=== PATIENT | female | born 1945 | race Caucasian/White ===

== ENCOUNTER → 2016-06-14 | Outpatient (CLI) | payer MEDICARE ==
[~2016-06-14] MED LIST: ACET473E5 PO; ASP81CT PO; ASPI-266 PO; ATEN25TA PO; CALC-79 PO; CLOP75TA PO; CODE-54 PO; CYCL10TA9 PO; FESO4TAB PO; HYDR-3812 PO; KETO10TA PO; LISI10TA2 PO; LISI20TA2 PO; MELO-195 PO; NITR-65 PO; PRIM50TA26 PO; RANI150C11 PO; RANI150T11 PO; RANI300T4 PO; SIMV40TA4 PO; TERB250T PO
--- NOTE | 2016-06-14 14:27 | Diagnostic Imaging Report ---
INDICATION: Chronic right-sided back pain radiating to the right leg. DISCUSSION: Three views of the lumbosacral spine were obtained, no comparison. Mild degenerative changes are noted within the bilateral sacroiliac joints. No compression fracture or abnormal subluxation identified. Mild degenerative disc disease is noted. Mild facet arthropathy. Scattered atherosclerotic plaque is noted throughout the abdominal aorta. Soft tissues are otherwise unremarkable. IMPRESSION: 1. Mild degenerative changes the lumbar spine. No acute osseous abnormality identified. Report was called to Deya Lopez by loraine at 2:26 p.m. Dictated by: Dictated on workstation # [id number]
== END ==
LOC: RAD 13:55
PROVIDERS: ATTEND Nurse Practitioner Family
DX: M54.41 Lumbago with sciatica, right side (principal); G89.29 Other chronic pain
CPT/HCPCS: 72100

== ENCOUNTER 2016-06-19 13:41 | Emergency (ER) | payer MEDICARE ==
[~2016-06-19] VITALS: Ht 144.8 cm; Wt 64.6 kg
[~2016-06-19 13:41] MED LIST changes: -HYDR-3812 PO; -KETO10TA PO; -NITR-65 PO; -RANI150T11 PO
[2016-06-19] MEDS ORDERED: KETOROLAC 30 MG/ML VIAL IVP STA (14:06)
[2016-06-19] MEDS ORDERED: LACTATED RINGERS 1,000 ML IV ONE (14:06)
--- NOTE | 2016-06-19 14:13 | ED Back Pain ---
General Chief Complaint: Back Problems Stated Complaint: BACK PAIN Nursing Triage Note: PT REPORTS LOW BACK PAIN X 1 WEEK. SHE REPORTS SHE WAS SEEN AT [facility] IN [facility] LAST MONDAY AND HAD XRAYS AND WAS TX FOR UTI. SHE REPORTS NO IMPROVEMENT WITH PAIN. Nursing Sepsis Screen: No Definite Risk Source of Information: Patient History of Present Illness Time Seen by Provider: 13:58 Initial Comments PT STATES LAST MONDAY, 1 WEEK AGO, SHE GOT UP OUT OF HER RECLINER AND HAD SUDDEN SHARP PAIN IN RIGHT FLANK THAT RADIATES TO RIGHT MID ABDOMEN--STATES RIGHT FLANK AREA FEELS SWOLLEN PAIN HAS CONTINUED ALL WEEK WENT TO [facility] ON MONDAY FOR THIS PROBLEM AND WAS DX WITH UTI AND GIVEN RX FOR BACTRIM WHICH SHE HAS BEEN TAKING WITHOUT IMPROVEMENT IN SYMPTOMS PT ALSO HAS RX FOR [id number] #3 FOR CHRONIC BACK PAIN NO MOTOR DEFICITS. OCCASIONALLY HAS "NUMBNESS TO RIGHT ANTERIOR THIGH" BUT + NAUSEA, NO VOMITING NO URINARY SYMPTOMS HAS PROBLEMS WITH CONSTIPATION AND TOOK A LAXATIVE A FEW DAYS AGO AND IT HELPED. , LAST BM WAS YESTERDAY OR DAY BEFORE NO FEVER BUT HAS HAD CHILLS PT HAS HAD A KIDNEY STONE X 1 IN THE PAST PASSED IT ON HER OWN. 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 Allergies and Home Medications Allergies Coded Allergies: fluticasone (Unverified Allergy, Unknown, RASH, 07/28/14) Uncoded Allergies: MRI DYE (Allergy, Severe, ANAPHYLAXIS, 01/22/13) Home Medications Acetaminophen/Codeine 1 Tab Tablet, 0.5-1 TAB PO HS PRN for PAIN, (Reported) TAKES 1/2-1 TABLET Aspirin 81 Mg Tablet.dr, 81 MG PO HS, (Reported) Atenolol 25 Mg Tablet, 25 MG PO HS, (Reported) Calcium Carb/Vit D3/Minerals 1 Each Tab.chew, 2 TAB PO HS, (Reported) Clopidogrel Bisulfate 75 Mg Tablet, 75 MG PO HS, (Reported) Fesoterodine Fumarate 4 Mg Tab.sr.24h, 4 MG PO HS, (Reported) Lisinopril 10 Mg Tablet, 10 MG PO HS, (Reported) Meloxicam 15 Mg Tablet, 15 MG PO HS, (Reported) Primidone 50 Mg Tablet, 100 MG PO HS, (Reported) TAKES 2 (50MG) TABLETS Primidone 50 Mg Tablet, 25 MG PO DAILY, (Reported) TAKES 1/2 (50MG) TABLET Ranitidine Hcl 150 Mg Capsule, 150 MG PO HS, (Reported) Simvastatin 40 Mg Tablet, 40 MG PO HS, (Reported) Constitutional: see HPI, chills Respiratory: no symptoms reported Cardiovascular: no symptoms reported Gastrointestinal: RUQ, RLQ, see HPI Genitourinary: no symptoms reported, see HPI, No decreased output, No dysuria, No frequency, No hematuria, No hesitancy, No pain Musculoskeletal: see HPI, back pain Skin: no symptoms reported Psychiatric/Neurological: No Symptoms Reported Past Osjaglp-Kxddyl-Wsxmkr Hx Patient Social History Alcohol Use: Rarely Uses Recreational Drug Use: No Smoking Status: Current Everyday Smoker (1 PPD) Type Used: Cigarettes 2nd Hand Smoke Exposure: No Recent Foreign Travel: No Contact w/Someone Who Travel: No Recent Infectious Disease Expo: No Recent Hopitalizations: No Immunizations Up To Date Tetanus Booster (TDap): Unknown Date of Pneumonia Vaccine: Jan 21, 2009 Date of Influenza Vaccine: Dec 31, 2014 Seasonal Allergies Seasonal Allergies: No Surgeries HX Surgeries: Yes (CARDIAC CATH; HYST/BSO-2 DIFFERENT SURGERIES; SURGERY FOR PROLAPSED BLADDER) Surgeries: Adenoidectomy, Bladder Surgery, Cardiac, Hysterectomy, Oophorectomy , Tonsillectomy Respiratory Hx Respiratory Disorders: Yes Respiratory Disorders: COPD Cardiovascular Hx Cardiac Disorders: Yes Cardiac Disorders: Coronary Artery Disease, High Cholesterol, Hypertension, Peripheral Vascular Neurological Hx Neurological Disorders: Yes (FAMILIAL TREMOR) Neurological Disorders: Stroke Reproductive System Hx Reproductive Disorders: No Sexually Transmitted Disease: No HIV/AIDS: No Female Reproductive Disorders: Denies Genitourinary Hx Genitourinary Disorders: Yes (Incontinence) Genitourinary Disorders: Kidney Stones Gastrointestinal Hx Gastrointestinal Disorders: No Musculoskeletal Hx Musculoskeletal Disorders: Yes Musculoskeletal Disorders: Arthritis, Back Injury, Chronic Back Pain Endocrine Hx Endocrine Disorders: No HEENT HX ENT Disorders: No Cancer Hx Cancer: No Psychosocial Hx Psychiatric Problems: No Integumentary HX Skin/Integumentary Disorder: No Blood Transfusions Hx Blood Disorders: No Adverse Reaction to a Blood Tr: No Family Medical History Family Medial History: Cardiovascular disease 19 FATHER ( at 73 with mi) Completed stroke 19 MOTHER ( at 83 complications of stroke) Physical Exam Vital Signs Vital Sign - Last 12Hours 06/19/16 13:52 Temp 97.2 Pulse 75 Resp 16 B/P (MAP) 148/84 Pulse Ox 96 O2 Delivery Room Air Capillary Refill : Less Than 3 Seconds General Appearance: No Apparent Distress, WD/WN Cardiovascular: Regular Rate, Rhythm, No Murmur, Normal Peripheral Pulses Respiratory: Normal Breath Sounds, No Accessory Muscle Use, No Respiratory Distress Gastrointestinal: Normal Bowel Sounds, No Organomegaly, Soft, Tenderness ( RIGHT FLANK / MID ABD TENDERNESS) Back: CVA Tenderness (R) Extremity: Normal Range of Motion Neurologic/Psychiatric: Alert, Oriented x3, No Motor/Sensory Deficits, Normal Mood/Affect, Other (RESTING TREMOR TO HEAD AND ARMS) Skin: Normal Color, Warm/Dry, No Rash Progress/Results/Core Measures Results/Orders Lab Results Laboratory Tests Test 06/19/16 14:25 06/19/16 15:14 Range/Units White Blood Count 13.4 H 4.3-11.0 10^3/uL Red Blood Count 4.92 4.35-5.85 10^6/uL Hemoglobin 16.1 H 11.5-16.0 G/DL Hematocrit 48 35-52 % Mean Corpuscular Volume 97 80-99 FL Mean Corpuscular Hemoglobin 33 25-34 PG Mean Corpuscular Hemoglobin Concent 34 32-36 G/DL Red Cell Distribution Width 14.3 10.0-14.5 % Platelet Count 237 130-400 10^3/uL Mean Platelet Volume 10.6 H 7.4-10.4 FL Neutrophils (%) (Auto) 72 42-75 % Lymphocytes (%) (Auto) 17 12-44 % Monocytes (%) (Auto) 10 0-12 % Eosinophils (%) (Auto) 1 0-10 % Basophils (%) (Auto) 0 0-10 % Neutrophils # (Auto) 9.6 H 1.8-7.8 X 10^3 Lymphocytes # (Auto) 2.3 1.0-4.0 X 10^3 Monocytes # (Auto) 1.3 H 0.0-1.0 X 10^3 Eosinophils # (Auto) 0.2 0.0-0.3 10^3/uL Basophils # (Auto) 0.1 0.0-0.1 10^3/uL Sodium Level 138 135-145 MMOL/L Potassium Level 4.3 3.6-5.0 MMOL/L Chloride Level 104 98-107 MMOL/L Carbon Dioxide Level 23 21-32 MMOL/L Anion Gap 11 5-14 MMOL/L Blood Urea Nitrogen 31 H 7-18 MG/DL Creatinine 1.62 H 0.60-1.30 MG/DL Estimat Glomerular Filtration Rate 31 BUN/Creatinine Ratio 19 Glucose Level 90 70-105 MG/DL Calcium Level 9.0 8.5-10.1 MG/DL Total Bilirubin 0.4 0.1-1.0 MG/DL Aspartate Amino Transf (AST/SGOT) 14 5-34 U/L Alanine Aminotransferase (ALT/SGPT) 7 0-55 U/L Alkaline Phosphatase 55 40-136 U/L Total Protein 6.6 6.4-8.2 G/DL Albumin 3.8 3.2-4.5 G/DL Amylase Level 45 25-125 U/L Lipase 33 8-78 U/L Urine Color YELLOW Urine Clarity CLEAR Urine pH 6 5-9 Urine Specific [place] 1.015 L 1.016-1.022 Urine Protein 1+ H NEGATIVE Urine Glucose (UA) NEGATIVE NEGATIVE Urine Ketones NEGATIVE NEGATIVE Urine Nitrite NEGATIVE NEGATIVE Urine Bilirubin NEGATIVE NEGATIVE Urine Urobilinogen NORMAL NORMAL MG/DL Urine Leukocyte Esterase 2+ H NEGATIVE Urine RBC (Auto) 3+ H NEGATIVE Urine RBC NONE /HPF Urine WBC 5-10 H /HPF Urine Squamous Epithelial Cells 5-10 /HPF Urine Crystals NONE /LPF Urine Bacteria TRACE /HPF Urine Casts PRESENT /LPF Urine Hyaline Casts 25-50 H /LPF Urine Mucus NEGATIVE /LPF Urine Culture Indicated NO My Orders Orders - PERCY RUBIO DO Ct Abd/Pelvis Wo(Kidney Stone) (06/19/16 14:06) Amylase (06/19/16 14:06) Cbc With Automated Diff (06/19/16 14:06) Comprehensive Metabolic Panel (06/19/16 14:06) Lipase (06/19/16 14:06) Ua Culture If Indicated (06/19/16 14:06) Acute Abd Series (06/19/16 14:06) Saline Lock/Iv-Start (06/19/16 14:06) Lactated Ringers (Lr 1000 Ml Iv Solution (06/19/16 14:06) Ketorolac Injection (Toradol Injection) (06/19/16 14:06) Urine Culture (06/19/16 15:29) Medications Given in ED Current Medications Medications Dose Ordered Sig/Tobias Route Start Time Stop Time Status Last Admin Dose Admin Lactated Ringer's 1,000 ml @ 0 mls/hr Q0M ONCE IV 06/19/16 14:06 06/19/16 14:07 DC 06/19/16 14:25 0 MLS/HR Vital Signs/I&O Vital Sign - Last 12Hours 06/19/16 13:52 Temp 97.2 Pulse 75 Resp 16 B/P (MAP) 148/84 Pulse Ox 96 O2 Delivery Room Air Blood Pressure Mean: 105 Progress Note : Progress Note MODERATE RELIEF OF PAIN WITH TORADOL PT AND DAUGHTER ADVISED OF POSSIBILITY OF EARLY SHINGLES OUTBREAK, WITH NO RASH AT THIS TIME. ADVISED TO CALL HER DR IF SHE DEVELOPS A RASH IN AREA OF PAIN Diagnostic Imaging Comments ACUTE ABDOMEN XRAYS--NO ACUTE PROCESS CT ABDOMEN/PELVIS--NO ACUTE PROCESS, SMALL NON-OBSTRUCTING INTRARENAL STONES PER RADIOLOGIST REPORTS @ 1508 Reviewed: Reviewed by Me Departure Impression Impression: Primary Impression: Right flank pain Additional Impression: UTI (urinary tract infection) Disposition: HOME, SELF-CARE Condition: Improved Departure-Patient Inst. Referrals: ELVIA MIMS DO (PCP/Family) Primary Care Physician Patient Instructions: Flank Pain (DC), Urinary Tract Infection, Adult (DC) Add. Discharge Instructions: ALTERNATE ICE AND HEAT TO SORE AREA AT 20 MINUTE INTERVALS LOTS OF CLEAR LIQUIDS STOP YOUR CURRENT ANTIBIOTIC FOLLOW UP WITH [facility] THIS WEEK FOR FURTHER CARE All discharge instructions reviewed with patient and/or family. Voiced understanding. Scripts Nitrofurantoin Monohyd/M-Cryst (Macrobid 100 mg Capsule) 100 Mg Capsule 100 MG PO BID, #20 CAP Prov: PERCY RUBIO DO 06/19/16 Ketorolac Tromethamine (Ketorolac Tromethamine) 10 Mg Tablet 10 MG PO Q6H for Pain, #15 TAB Prov: PERCY RUBIO DO 06/19/16 Hydrocodone/Acetaminophen (Hydrocodon -Acetaminophen 5-325) 1 Each Tablet 1 EACH PO Q4H, #20 TAB Prov: PERCY RUBIO DO 06/19/16 Cyclobenzaprine HCl (Cyclobenzaprine HCl) 10 Mg Tablet 10 MG PO Q8H, #15 TAB Prov: PERCY RUBIO DO 06/19/16 PERCY RUBIO DO Jun 19, 2016 14:13
[2016-06-19 14:33] LABS: BASOPHILS # (AUTO) 0.1 10^3/uL (0.0-0.1); BASOPHILS % (AUTO) 0 % (0-10); EOSINOPHILS # (AUTO) 0.2 10^3/uL (0.0-0.3); EOSINOPHILS % (AUTO) 1 % (0-10); LYMPHOCYTES # (AUTO) 2.3 X 10^3 (1.0-4.0); LYMPHOCYTES % (AUTO) 17 % (12-44); MEAN CORPUSCULAR HEMOGLOBIN 33 PG (25-34); MEAN CORPUSCULAR HGB CONC 34 G/DL (32-36); MEAN CORPUSCULAR VOLUME 97 FL (80-99); MEAN PLATELET VOLUME 10.6 FL (7.4-10.4); MONOCYTES # (AUTO) 1.3 X 10^3 (0.0-1.0); MONOCYTES % (AUTO) 10 % (0-12); NEUTROPHILS # (AUTO) 9.6 X 10^3 (1.8-7.8); NEUTROPHILS % (AUTO) 72 % (42-75); PLATELET COUNT 237 10^3/uL (130-400); RED BLOOD COUNT 4.92 10^6/uL (4.35-5.85); RED CELL DISTRIBUTION WIDTH 14.3 % (10.0-14.5); WHITE BLOOD COUNT 13.4 10^3/uL (4.3-11.0)
[2016-06-19 14:50] LABS: ALBUMIN 3.8 G/DL (3.2-4.5); BILIRUBIN,TOTAL 0.4 MG/DL (0.1-1.0); CREATININE SERUM 1.62 MG/DL (0.60-1.30); POTASSIUM 4.3 MMOL/L (3.6-5.0); TOTAL PROTEIN 6.6 G/DL (6.4-8.2)
--- NOTE | 2016-06-19 14:53 | Diagnostic Imaging Report ---
INDICATION: Back pain. COMPARISON with 06/30/2015. FINDINGS: The lungs are clear. There is no evidence of free air under the diaphragm. The bowel gas pattern appears normal with no evidence of constipation. No calculi are seen overlying the renal shadow. There are 2 well-circumscribed benign-appearing calculi overlying the left upper quadrant which are unchanged. No calculi are seen along the path of the ureter. No calculi are seen in the pelvis. No organomegaly. IMPRESSION: Normal abdomen series. There is no evidence of renal calculi on current exam. Dictated by: Dictated on workstation # [id number]
--- NOTE | 2016-06-19 15:05 | Diagnostic Imaging Report ---
PROCEDURE: CT urinary tract, rule out kidney stone. TECHNIQUE: Multiple contiguous axial images were obtained through the abdomen and pelvis without the use of intravenous contrast. INDICATION: Back pain radiating into right side. FINDINGS: The lung bases are clear. The kidneys show nonobstructing calculus in the lower pole calyx of left kidney measuring 5 mm. There is a small calcification seen along the right renal pelvis which is felt to be within the renal artery and not within the renal collecting system. There is also calcification noted along the aorta. The distal ureters appear normal as did the bladder. There is a phlebolith noted in the pelvis on the right. The liver appears normal. The gallbladder is contracted. Bile ducts are not dilated. The pancreas and spleen are normal. The adrenal glands are normal. There is a small hiatal hernia present. The stomach is filled with food. The small bowel is not dilated. The colon shows normal stool and gas pattern with no evidence of constipation. No findings to indicate diverticulitis. The appendix is not specifically identified though no dilated structures or appendicoliths are present. No evidence of pericecal edema. No pelvic masses. There is no free air or free fluid. No intra-abdominal adenopathy of pathologic size. IMPRESSION: 1. Nonobstructing calculus in the lower pole calyx of the left kidney measuring 5 mm. The right kidney appears normal with no calculi or obstruction. 2. No findings to suggest inflammatory bowel changes or appendicitis. Dictated by: Dictated on workstation # [id number]
[2016-06-19 15:20] LABS: BILIRUBIN,URINE NEGATIVE (NEGATIVE); KETONES,URINE NEGATIVE (NEGATIVE); LEUKOCYTE ESTERASE ,URINE 2+ (NEGATIVE); NITRITE,URINE NEGATIVE (NEGATIVE); PH,URINE 6 (5-9); PROTEIN,URINE 1+ (NEGATIVE); UROBILINOGEN,URINE NORMAL (NORMAL)
[2016-06-19 15:28] LABS: HYALINE CASTS, URINE 25-50 /LPF
[2016-06-19] MEDS ORDERED: NITR-65 PO ×2 (15:39→15:40)
[2016-06-19] MEDS ORDERED: HYDR-3812 PO (15:40)
[2016-06-19] MEDS ORDERED: CYCL10TA9 PO (15:40)
[2016-06-19] MEDS ORDERED: KETO10TA PO (15:40)
[2016-06-19 15:54] VITALS: BP 145/79
--- OUTSIDE RECORDS SUMMARY | 2016-07-05 13:26 | XMS REPORT ---
Author Author DAY HUGHES [facility] eClinicalWorks Address Unknown Phone Unavailable Care Team Providers Care Electric Arc Welder Name Role Phone DAY HUGHES CP Unavailable Allergies, Adverse Reactions, Alerts Substance Reaction Event Type Gadolinium-containing Contrast Media Info Not Available Non Drug Allergy Problems Problem Type Condition ICD-9 Code Onset Dates Condition Status Problem Nondependent tobacco use disorder 305.1 Active Problem Chest pain, unspecified 786.50 Active Problem Occlusion and stenosis of carotid artery without mention of cerebral infarction 433.10 Active Problem Hyperlipidemia 272.4 Active Problem CVA (cerebral infarction) 434.91 Active Problem PVD (peripheral vascular disease) 443.9 Active Problem Hypertension 401.9 Active Problem RBBB 426.4 Active Problem Carotid arterial disease 447.9 Active Problem Tobacco dependency 305.1 Active Assessment Weight loss 783.21 Active Assessment PVD (peripheral vascular disease) 443.9 Active Problem Unspecified osteoporosis 733.00 Active Problem 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 Problem Other seborrheic keratosis 702.19 Active Problem Occlusion and stenosis of carotid artery with cerebral infarction 433.11 Active Problem 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 Problem Unspecified essential hypertension 401.9 Active Medications Medication Code System Code Instructions Start Date End Date Status Dosage Atenolol [facility] [address]-01 25 MG Orally Once a day 1 tablet Primidone [facility] [address]-65 50 MG Feb 26, 2014 1/2 tablet AM and 2 tabs @ HS Simvastatin [facility] [address]-45 40 MG Orally Once a day 1 tablet in the evening Lisinopril [facility] [address]-74 10 MG Orally Once a day [facility] 1 tablet Calcium ND 0 Oral Once a day 2 tab Mobic [facility] [address]-28 15 MG Orally Once a day 1 tablet Aspirin [facility] [address] 81 MG Orally Once a day 1 tablet Ranitidine HCl [facility] [address]-18 150 MG Orally Once a day 1 tablet Toviaz [facility] [address]-14 4 mg Feb 27, 2013 take 1 tablet (4 mg) by oral route once daily Tylenol with Codeine #3 [facility] 0 300-30 mg 1 tab(s) orally 4 times a day July 26, 2012 1-2 tablet by Oral route 4 times per day PRN Procedures Procedure Coding System Code Date Office Visit, Est Pt., Level 3 CPT-4 91486 Nov 17, 2014 [facility] VISIT ESTABLISHED PATIENT CPT-4 G0467 Nov 17, 2014 Vital Signs Date/Time: Nov 17, 2014 Temperature 97.8 F Weight 136.7 lbs Height 57 in BMI 29.58 Index Blood Pressure Diastolic 72 mmHg Blood Pressure Systolic 138 mmHg Cardiac Monitoring Heart Rate 82 bpm Results No Known Results Summary Purpose eClinicalWorks Submission
--- OUTSIDE RECORDS SUMMARY | 2016-07-05 13:26 | XMS REPORT ---
Author Author ALONDRA COFFEY [facility] eClinicalWorks Address Unknown Phone Unavailable Care Team Providers Care Cap Maker Name Role Phone ALONDRA COFFEY CP Unavailable Allergies, Adverse Reactions, Alerts Substance Reaction Event Type Flonase hives and itching Drug Allergy Gadolinium-containing Contrast Media nausea Non Drug Allergy Problems Problem Type Condition Code Onset Dates Condition Status Problem Tobacco dependency 305.1 Active Problem CVA (cerebral infarction) 434.91 Active Problem Carotid arterial disease 447.9 Active Problem Dysfunction of right eustachian tube H69.81 Active Problem Other seborrheic keratosis 702.19 Active Problem Hyperlipemia E78.5 Active Assessment Bilateral otitis media, unspecified chronicity, unspecified otitis media type H66.93 Active Problem 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 Problem PVD (peripheral vascular disease) 443.9 Active Problem Hyperlipidemia 272.4 Active Problem Hypertension I10 Active Problem CVA (cerebral vascular accident) I63.9 Active Problem 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 Problem Occlusion and stenosis of carotid artery with cerebral infarction 433.11 Active Problem 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 Problem Unspecified osteoporosis 733.00 Active Problem Occlusion and stenosis of carotid artery without mention of cerebral infarction 433.10 Active Problem Chest pain, unspecified 786.50 Active Problem Unspecified essential hypertension 401.9 Active Problem RBBB 426.4 Active Problem Nondependent tobacco use disorder 305.1 Active Problem Hypertension 401.9 Active Medications Medication Code System Code Instructions Start Date End Date Status Dosage Atenolol [facility] 94610145929 25 MG TAKE ONE TABLET BY MOUTH DAILY Primidone [facility] [address]-79 50 MG Feb 26, 2014 3 tabs @ Simvastatin [facility] 15753669376 40 MG TAKE ONE TABLET BY MOUTH ONCE DAILY Ranitidine HCl [facility] 78842303541 150 MG TAKE ONE TABLET BY MOUTH DAILY Calcium Antacid Ultra [facility] [address]-42 1000 MG Orally Three times a day 1 tablet Tylenol with Codeine #3 NDC 0 300-30 mg 1 tab(s) orally 4 times a day July 26, 2012 1-2 tablet by Oral route 4 times per day PRN Magnesium [facility] [address] 400 MG Orally Once a day September 03, 2015 as directed Aspirin [facility] [address] 81 MG Orally Once a day 1 tablet Amoxicillin [facility] [address]-66 500 MG Orally every 8 hrs October 15, 2015 October 25, 2015 1 capsule Meloxicam [facility] 13008028874 15 MG TAKE ONE TABLET BY MOUTH DAILY Myrbetriq [facility] [address]-76 50 MG Orally Once a day 1 tablet Plavix [facility] 19669767676 75 MG TAKE ONE TABLET BY MOUTH ONCE DAILY Calcium NDC 0 Oral Once a day 2 tab Lisinopril [facility] 08733553219 10 Orally Once a day [facility] 1 tablet Procedures Procedure Coding System Code Date Office Visit, Est Pt., Level 3 CPT-4 32439 October 15, 2015 [facility] VISIT ESTABLISHED PATIENT CPT-4 G0467 October 15, 2015 Vital Signs Date/Time: October 15, 2015 Cardiac Monitoring Heart Rate 78 bpm Weight 142.4 lbs Height 57 in Blood Pressure Diastolic 62 mmHg Blood Pressure Systolic 98 mmHg Results No Known Results Summary Purpose eClinicalWorks Submission
--- OUTSIDE RECORDS SUMMARY | 2016-07-05 13:27 | XMS REPORT ---
Author Author DAY HUGHES Organization [employer] Address Unknown Phone Unavailable Care Team Providers Care Commissioner Of Conciliation Name Role Phone DAY HUGHES CP Unavailable Allergies No Known Allergies Problems Problem Type Condition Code Onset Dates Condition Status Problem Dysfunction of right eustachian tube H69.81 Active Problem Hyperlipemia E78.5 Active Problem 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 Problem Cataracts, bilateral H26.9 Active Problem Hypertension I10 Active Problem CVA (cerebral vascular accident) I63.9 Active Medications No Known Medications Results No Known Results Summary Purpose eClinicalWorks Submission
--- OUTSIDE RECORDS SUMMARY | 2016-07-05 13:27 | XMS REPORT ---
Author Author DAY HUGHES [facility] Address [address] [place] [address] Care Team Providers Care Healthcare Advisory Services Manager Name Role Phone DAY HUGHES Unavailable PROBLEMS Type Condition ICD9-CM Code [id number] Code Onset Dates Condition Status SNOMED Code Assessment Arthralgia, unspecified joint M25.50 Oct, Active 16131831 Assessment Essential hypertension I10 Oct, Active 73273268 Problem 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 274815533 Problem Dysfunction of right eustachian tube H69.81 Active 22682828 Problem CVA (cerebral vascular accident) I63.9 Active 863485435 Problem Cataracts, bilateral H26.9 Active 41454418 Problem Hyperlipemia E78.5 Active 34517740 Problem Hypertension I10 Active 93566663 ALLERGIES Substance Reaction Event Type Date Status Flonase hives and itching Drug Allergy Oct, Active Gadolinium-containing Contrast Media nausea Non Drug Allergy Oct, Active SOCIAL HISTORY No smoking Hx information available PLAN OF CARE VITAL SIGNS Height 57 in 2015-11-17 Weight 139.6 lbs 2015-11-17 Heart Rate 80 bpm 2015-11-17 Respiratory Rate 20 2015-11-17 BMI 30.21 kg/m2 2015-11-17 Blood pressure systolic 120 mmHg 2015-11-17 Blood pressure diastolic 66 mmHg 2015-11-17 MEDICATIONS Medication Instructions Dosage Frequency Start Date End Date Duration Status Ranitidine HCl 150 MG TAKE ONE TABLET BY MOUTH DAILY 90 Active Atenolol 25 MG TAKE ONE TABLET BY MOUTH DAILY 30 Active Meloxicam 15 MG TAKE ONE TABLET BY MOUTH DAILY 90 Active Plavix 75 MG TAKE ONE TABLET BY MOUTH ONCE DAILY 90 Active Magnesium 400 MG Orally Once a day as directed 24h Aug, Active Simvastatin 40 MG TAKE ONE TABLET BY MOUTH ONCE DAILY 30 Active Lisinopril 10 Orally Once a day [facility] 1 tablet Active Myrbetriq 50 MG Orally Once a day 1 tablet 24h Active Calcium Oral Once a day 2 tab 24h Active Calcium Antacid Ultra 1000 MG Orally Three times a day 1 tablet 8h Active Primidone 50 MG 3 tabs @HS Feb, Active Aspirin 81 MG Orally Once a day 1 tablet 24h Active Tylenol with Codeine #3 300-30 mg 1-2 tablet by Oral route 4 times per day PRN July, Active RESULTS No Results PROCEDURES Procedure Date Ordered Related Diagnosis Body Site [facility] VISIT ESTABLISHED PATIENT Nov 17, 2015 Office Visit, Est Pt., Level 3 Nov 17, 2015 IMMUNIZATIONS No Known Immunizations
--- OUTSIDE RECORDS SUMMARY | 2016-07-05 13:27 | XMS REPORT ---
Author Author ANDRES ALVARADO [employer] Address Unknown Phone Unavailable Care Team Providers Care Label Cutter Name Role Phone ANDRES ALVARADO CP Unavailable Allergies, Adverse Reactions, Alerts Substance Reaction Event Type Flonase hives and itching Drug Allergy Gadolinium-containing Contrast Media nausea Non Drug Allergy Problems Problem Type Condition Code Onset Dates Condition Status Problem Dysfunction of right eustachian tube H69.81 Active Problem Hyperlipemia E78.5 Active Problem 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 Problem Cataracts, bilateral H26.9 Active Assessment Dental examination Z01.20 Active Problem Hypertension I10 Active Problem CVA (cerebral vascular accident) I63.9 Active Medications Medication Code System Code Instructions Start Date End Date Status Dosage Ranitidine HCl [facility] 30398442652 150 MG TAKE ONE TABLET BY MOUTH DAILY Atenolol ND 12003255816 25 MG TAKE ONE TABLET BY MOUTH DAILY Tylenol with Codeine #3 NDC 0 300-30 mg 1 tab(s) orally 4 times a day July 26, 2012 1-2 tablet by Oral route 4 times per day PRN Calcium NDC 0 Oral Once a day 2 tab Lisinopril [facility] 24802561431 10 Orally Once a day LUPIN PHARMACE 1 tablet Plavix [facility] 80435028111 75 MG TAKE ONE TABLET BY MOUTH ONCE DAILY Magnesium [facility] [address]297 400 MG Orally Once a day September 03, 2015 as directed Calcium Antacid Ultra [facility] [address]-99 1000 MG Orally Three times a day 1 tablet Myrbetriq [facility] [address]-83 50 MG Orally Once a day 1 tablet Simvastatin [facility] 42829272338 40 MG TAKE ONE TABLET BY MOUTH ONCE DAILY Meloxicam ND 25232989240 15 MG TAKE ONE TABLET BY MOUTH DAILY Primidone [facility] [address]-11 50 MG Feb 26, 2014 3 tabs @[facility] Aspirin [facility] [address]1920 81 MG Orally Once a day 1 tablet Procedures Procedure Coding System Code Date Dental no charge CPT-4 D0099 Jan 19, 2016 Results No Known Results Summary Purpose [employer]Works Submission
--- OUTSIDE RECORDS SUMMARY | 2016-07-05 13:27 | XMS REPORT ---
Author Author SUSANA LLOYD Organization [employer] Address Unknown Phone Unavailable Care Team Providers Care Nuclear Test Technician Name Role Phone SUSANA LLOYD CP Unavailable Allergies, Adverse Reactions, Alerts Substance Reaction Event Type Flonase itching Drug Allergy Gadolinium-containing Contrast Media Info Not Available Non Drug Allergy Problems Problem Type Condition Code Onset Dates Condition Status Problem Tobacco dependency 305.1 Active Problem CVA (cerebral infarction) 434.91 Active Problem Carotid arterial disease 447.9 Active Problem Dysfunction of right eustachian tube H69.81 Active Problem Other seborrheic keratosis 702.19 Active Problem Hyperlipemia E78.5 Active Assessment Bronchitis J40 Active Problem 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 [...] Instructions Start Date End Date Status Dosage Doxycycline Monohydrate [facility] [address]-79 100 MG Orally every 12 hrs with food Apr 28, 2015 May 08, 2015 1 tablet Plavix [facility] 57908212144 75 MG TAKE ONE TABLET BY MOUTH ONCE DAILY Aspirin [facility] 44[address]1024 81 MG Orally Once a day 1 tablet Guaifenesin [facility] [address]-90 200 MG Orally every 4 hrs prn Apr 28, 2015 May 05, 2015 1 tablet as needed Calcium ND 0 Oral Once a day 2 tab Ranitidine HCl NDC 99292073197 150 MG TAKE ONE TABLET BY MOUTH DAILY Mobic [facility] [address]-58 15 MG Orally Once a day 1 tablet Tylenol with Codeine #3 [facility] 0 300-30 mg 1 tab(s) orally 4 times a day July 26, 2012 1-2 tablet by Oral route 4 times per day PRN Primidone [facility] [address]-02 50 MG Feb 26, 2014 3 tabs @[facility] Simvastatin [facility] 68226423665 40 MG TAKE ONE TABLET BY MOUTH DAILY Toviaz [facility] [address]-30 4 mg Feb 27, 2013 take 1 tablet (4 mg) by oral route once daily Meloxicam [facility] 85058034154 15 MG TAKE ONE TABLET BY MOUTH DAILY Atenolol [facility] 12076944718 25 MG TAKE ONE TABLET BY MOUTH DAILY Lisinopril [facility] [address]-36 10 MG Orally Once a day LUPIN PHARMACE 1 tablet Procedures Procedure Coding System Code Date NEB/MDI RX INITIAL CPT-4 16551 Apr 28, 2015 Office Visit, Est Pt., Level 3 CPT-4 96219 Apr 28, 2015 Vital Signs Date/Time: Apr 28, 2015 Temperature 98.8 F Weight 139.6 lbs Height 57 in BMI 30.21 Index Blood Pressure Diastolic 68 mmHg Blood Pressure Systolic 110 mmHg Cardiac Monitoring Heart Rate 86 bpm Results No Known Results Summary Purpose [employer]Works Submission
--- OUTSIDE RECORDS SUMMARY | 2016-07-05 13:27 | XMS REPORT ---
Author Author KIRBY ALVA Organization [employer] Address Unknown Phone Unavailable Care Team Providers Care Industrial Maintenance Technician Name Role Phone KIRBY ALVA CP Unavailable Allergies No Known Allergies Problems Problem Type Condition Code Onset Dates Condition Status Assessment CVA (cerebral vascular accident) I63.9 Active Assessment RBBB I45.10 Active Problem RBBB 426.4 Active Assessment Hypertension I10 Active Problem Hypertension 401.9 Active Assessment Tobacco use Z72.0 Active Problem Tobacco dependency 305.1 Active Problem CVA (cerebral infarction) 434.91 Active Problem Carotid arterial disease 447.9 Active Problem Dysfunction of right eustachian tube H69.81 Active Problem Hyperlipemia E78.5 Active Problem Other seborrheic keratosis 702.19 Active Assessment Hyperlipemia E78.5 Active Problem 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 Assessment Carotid arterial disease I77.9 Active Problem PVD (peripheral vascular disease) 443.9 [...] Problem Unspecified essential hypertension 401.9 Active Problem Nondependent tobacco use disorder 305.1 Active Medications Medication Code System Code Instructions Start Date End Date Status Dosage Atenolol [facility] [address]-51 25 MG Orally Once a day 1 tablet Lisinopril [facility] [address]-96 10 MG Orally Once a day LUPIN PHARMACE 1 tablet Tylenol with Codeine #3 ND 0 300-30 mg 1 tab(s) orally 4 times a day July 26, 2012 1-2 tablet by Oral route 4 times per day PRN Primidone [facility] [address]-65 50 MG Feb 26, 2014 3 tabs @[facility] Simvastatin [facility] [address]-40 40 MG Orally Once a day 1 tablet in the evening Toviaz [facility] [address]-02 4 mg Feb 27, 2013 take 1 tablet (4 mg) by oral route once daily Plavix [facility] 99711714371 75 MG TAKE ONE TABLET BY MOUTH ONCE DAILY Ranitidine HCl [facility] 90817767238 150 MG TAKE ONE TABLET BY MOUTH DAILY Calcium ND 0 Oral Once a day 2 tab Mobic [facility] [address]-55 15 MG Orally Once a day 1 tablet Aspirin [facility] [address]68-[address]697 81 MG Orally Once a day 1 tablet Procedures Procedure Coding System Code Date [facility] VISIT ESTABLISHED PATIENT CPT-4 G0467 Mar 04, 2015 Office Visit, Est Pt., Level 4 CPT-4 89549 Mar 04, 2015 MEASURE BLOOD OXYGEN LEVEL CPT-4 55067 Mar 04, 2015 Vital Signs Date/Time: Mar 04, 2015 Cardiac Monitoring Heart Rate 72 bpm Weight 137 lbs Height 57 in BMI 29.64 Index Oximetry 97 % Blood Pressure Diastolic 74 mmHg Blood Pressure Systolic 124 mmHg Results No Known Results Summary Purpose eClinicalWorks Submission
--- OUTSIDE RECORDS SUMMARY | 2016-07-05 13:30 | XMS REPORT | Continuity of Care Document ---
Author Author [facility]ly [facility] Address Unknown Phone Unavailable Allergies Active Description Code Type Severity Reaction Onset Reported/Identified Relationship to Patient Clinical Status Yes Flonase Drug Allergy N/A N/A 10/13/2008 Yes Flonase Drug Allergy 10/13/2008 Yes lisinopril Drug Allergy 10/13/2008 Yes MRI DYE MRI DYE Severe ANAPHYLAXIS 01/22/2013 Yes Gadolinium-Containing Contrast Media Drug Allergy N/A N/ A 01/29/2013 Yes fluticasone [id number] Drug Allergy Unknown RASH 07/28/2014 Medications Problems Date Dx Coded Attending Type Code Diagnosis Diagnosed By 02/15/2008 ELVIA MIMS DO 729.5 Pain In Limb 02/15/2008 ELVIA MIMS DO 807.00 Closed Fracture Of Rib(s) Unspecified 02/15/2008 729.5 Pain In Limb 02/15/2008 807.00 Closed Fracture Of Rib(s) Unspecified 02/15/2008 ELVIA MIMS DO 729.5 Pain In Limb 02/15/2008 LUCIO MIMS DOA K 807.00 Closed Fracture Of Rib(s) Unspecified 02/15/2008 729.5 Pain In Limb 02/15/2008 807.00 Closed Fracture Of Rib(s) Unspecified 02/15/2008 ELVIA MIMS DO 729.5 Pain In Limb 02/15/2008 ELVIA MIMS DO K 807.00 Closed Fracture Of Rib(s) Unspecified 02/15/2008 ELVIA MIMS DO K 729.5 Pain In Limb 02/15/2008 ELVIA MIMS DO K 807.00 Closed Fracture Of Rib(s) Unspecified 02/15/2008 729.5 Pain In Limb 02/15/2008 807.00 Closed Fracture Of Rib(s) Unspecified 02/15/2008 729.5 Pain In Limb 02/15/2008 807.00 Closed Fracture Of Rib(s) Unspecified 02/15/2008 729.5 Pain In Limb 02/15/2008 807.00 Closed Fracture Of Rib(s) Unspecified 02/15/2008 ROSENDO BARROW MD 729.5 Pain In Limb 02/15/2008 ROSENDO BARROW MD 807.00 Closed Fracture Of Rib(s) Unspecified 02/15/2008 ROSENDO BARROW MD 729.5 Pain In Limb 02/15/2008 ROSENDO BARROW MD 807.00 Closed Fracture Of Rib(s) Unspecified 02/15/2008 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, DAY S 729.5 Pain In Limb 02/15/2008 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, DAY S 807.00 Closed Fracture Of Rib(s) Unspecified 02/15/2008 MIMS DO, ELVIA K 729.5 Pain In Limb 02/15/2008 MIMS DO, ELVIA K 807.00 Closed Fracture Of Rib(s) Unspecified 02/15/2008 ROSENDO BARROW MD 729.5 Pain In Limb 02/15/2008 ROSENDO BARROW MD 807.00 Closed Fracture Of Rib(s) Unspecified 02/15/2008 MIMS DO, ELVIA K 729.5 Pain In Limb 02/15/2008 MIMS DO, ELVIA K 807.00 Closed Fracture Of Rib(s) Unspecified 02/15/2008 ROSENDO BARROW MD 729.5 Pain In Limb 02/15/2008 ROSENDO BARROW MD 807.00 Closed Fracture Of Rib(s) Unspecified 02/15/2008 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, DAY S 729.5 Pain In Limb 02/15/2008 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, DAY S 807.00 Closed Fracture Of Rib(s) Unspecified 02/15/2008 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, DAY S 729.5 Pain In Limb 02/15/2008 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, DAY S 807.00 Closed Fracture Of Rib(s) Unspecified 02/15/2008 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, DAY S 729.5 Pain In Limb 02/15/2008 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, DAY S 807.00 Closed Fracture Of Rib(s) Unspecified 02/15/2008 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, DAY S 729.5 Pain In Limb 02/15/2008 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, DAY S 807.00 Closed Fracture Of Rib(s) Unspecified 02/15/2008 MIMS DO, ELVIA K 729.5 Pain In Limb 02/15/2008 MIMS DO, ELVIA K 807.00 Closed Fracture Of Rib(s) Unspecified 02/15/2008 MIMS DO, ELVIA K 729.5 Pain In Limb 02/15/2008 MIMS DO, ELVIA K 807.00 Closed Fracture Of Rib(s) Unspecified 02/15/2008 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, DAY S 729.5 Pain In Limb 02/15/2008 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, DAY S 807.00 Closed Fracture Of Rib(s) Unspecified 02/15/2008 KIRBY ALVA MD 729.5 Pain In Limb 02/15/2008 KIRBY ALVA MD 807.00 Closed Fracture Of Rib(s) Unspecified 02/15/2008 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, DAY S 729.5 Pain In Limb 02/15/2008 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, DAY S 807.00 Closed Fracture Of Rib(s) Unspecified 02/15/2008 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, DAY S 729.5 Pain In Limb 02/15/2008 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, DAY S 807.00 Closed Fracture Of Rib(s) Unspecified 02/15/2008 SCHROEDER DDS, HIRAM 729.5 Pain In Limb 02/15/2008 SCHROEDER DDS, HIRAM 807.00 Closed Fracture Of Rib(s) Unspecified 04/15/2008 MIMS DO, ELVIA K 401.1 ESSENTIAL HYPERTENSION BENIGN 04/15/2008 MIMS DO, ELVIA K 724.1 Pain In Thoracic Spine 04/15/2008 401.1 ESSENTIAL HYPERTENSION BENIGN 04/15/2008 724.1 Pain In Thoracic Spine 04/15/2008 MIMS DO, ELVIA K 401.1 ESSENTIAL HYPERTENSION BENIGN 04/15/2008 MIMS DO, ELVIA K 724.1 Pain In Thoracic Spine 04/15/2008 401.1 ESSENTIAL HYPERTENSION BENIGN 04/15/2008 724.1 Pain In Thoracic Spine 04/15/2008 MIMS DO ELVIA K 401.1 ESSENTIAL HYPERTENSION BENIGN 04/15/2008 MIMS DO, ELVIA K 724.1 Pain In Thoracic Spine 04/15/2008 MIMS DO, ELVIA K 401.1 ESSENTIAL HYPERTENSION BENIGN 04/15/2008 MIMS DO, ELVIA K 724.1 Pain In Thoracic Spine 04/15/2008 401.1 ESSENTIAL HYPERTENSION BENIGN 04/15/2008 724.1 Pain In Thoracic Spine 04/15/2008 401.1 ESSENTIAL HYPERTENSION BENIGN 04/15/2008 724.1 Pain In Thoracic Spine 04/15/2008 401.1 ESSENTIAL HYPERTENSION BENIGN 04/15/2008 724.1 Pain In Thoracic Spine 04/15/2008 ROSENDO BARROW MD 401.1 ESSENTIAL HYPERTENSION BENIGN 04/15/2008 ROSENDO BARROW MD 724.1 Pain In Thoracic Spine 04/15/2008 ROSENDO BARROW MD 401.1 ESSENTIAL HYPERTENSION BENIGN 04/15/2008 ROSENDO BARROW MD 724.1 Pain In Thoracic Spine 04/15/2008 ELLEN ADAMS, DAY S 401.1 ESSENTIAL HYPERTENSION BENIGN 04/15/2008 ELLEN ADAMS DAY S 724.1 Pain In Thoracic Spine 04/15/2008 MIMS DO, ELVIA K 401.1 ESSENTIAL HYPERTENSION BENIGN 04/15/2008 MIMS DO, ELVIA K 724.1 Pain In Thoracic Spine 04/15/2008 ROSENDO BARROW MD 401.1 ESSENTIAL HYPERTENSION BENIGN 04/15/2008 ROSENDO BARROW MD 724.1 Pain In Thoracic Spine 04/15/2008 MIMS DO, ELVIA K 401.1 ESSENTIAL HYPERTENSION BENIGN 04/15/2008 MIMS , ELVIA K 724.1 Pain In Thoracic Spine 04/15/2008 ROSENDO BARROW MD 401.1 ESSENTIAL HYPERTENSION BENIGN 04/15/2008 ROSENDO BARROW MD 724.1 Pain In Thoracic Spine 04/15/2008 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, DAY S 401.1 ESSENTIAL HYPERTENSION BENIGN 04/15/2008 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, DAY S 724.1 Pain In Thoracic Spine 04/15/2008 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, DAY S 401.1 ESSENTIAL HYPERTENSION BENIGN 04/15/2008 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, DAY S 724.1 Pain In Thoracic Spine 04/15/2008 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, DAY S 401.1 ESSENTIAL HYPERTENSION BENIGN 04/15/2008 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, DAY S 724.1 Pain In Thoracic Spine 04/15/2008 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, DAY S 401.1 ESSENTIAL HYPERTENSION BENIGN 04/15/2008 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, DAY S 724.1 Pain In Thoracic Spine 04/15/2008 MIMS DO, ELVIA K 401.1 ESSENTIAL HYPERTENSION BENIGN 04/15/2008 MIMS DO, ELVIA K 724.1 Pain In Thoracic Spine 04/15/2008 MIMS DO, ELVIA K 401.1 ESSENTIAL HYPERTENSION BENIGN 04/15/2008 MIMS DO, ELVIA K 724.1 Pain In Thoracic Spine 04/15/2008 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, DAY S 401.1 ESSENTIAL HYPERTENSION BENIGN 04/15/2008 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, DAY S 724.1 Pain In Thoracic Spine 04/15/2008 KIRBY ALVA MD 401.1 ESSENTIAL HYPERTENSION BENIGN 04/15/2008 KIRBY ALVA MD 724.1 Pain In Thoracic Spine 04/15/2008 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, DAY S 401.1 ESSENTIAL HYPERTENSION BENIGN 04/15/2008 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, DAY S 724.1 Pain In Thoracic Spine 04/15/2008 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, DAY S 401.1 ESSENTIAL HYPERTENSION BENIGN 04/15/2008 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, DAY S 724.1 Pain In Thoracic Spine 04/15/2008 SCHROEDER DDS, HIRAM 401.1 ESSENTIAL HYPERTENSION BENIGN 04/15/2008 SCHROEDER DDS, HIRAM 724.1 Pain In Thoracic Spine 07/14/2008 MIMS DO ELVIA K 381.81 Dysfunction Of Eustachian Tube 07/14/2008 FELICITA FUNES ELVIA K 625.6 Stress Incontinence Female 07/14/2008 381.81 Dysfunction Of Eustachian Tube 07/14/2008 625.6 Stress Incontinence Female 07/14/2008 MIMS DO, ELVIA K 381.81 Dysfunction Of Eustachian Tube 07/14/2008 MIMS DO, ELVIA K 625.6 Stress Incontinence Female 07/14/2008 381.81 Dysfunction Of Eustachian Tube 07/14/2008 625.6 Stress Incontinence Female 07/14/2008 MIMS DO, ELVIA K 381.81 Dysfunction Of Eustachian Tube 07/14/2008 MIMS DO ELVIA K 625.6 Stress Incontinence Female 07/14/2008 ELVIA MIMS DO K 381.81 Dysfunction Of Eustachian Tube 07/14/2008 MIMS LUCIO FUNESA K 625.6 Stress Incontinence Female 07/14/2008 381.81 Dysfunction Of Eustachian Tube 07/14/2008 625.6 Stress Incontinence Female 07/14/2008 381.81 Dysfunction Of Eustachian Tube 07/14/2008 625.6 Stress Incontinence Female 07/14/2008 381.81 Dysfunction Of Eustachian Tube 07/14/2008 625.6 Stress Incontinence Female 07/14/2008 ROSENDO BARROW MD 381.81 Dysfunction Of Eustachian Tube 07/14/2008 ROSENDO BARROW MD 625.6 Stress Incontinence Female 07/14/2008 ROSENDO BARROW MD 381.81 Dysfunction Of Eustachian Tube 07/14/2008 ROSENDO BARROW MD 625.6 Stress Incontinence Female 07/14/2008 ALYSSA HUGHES APRNA S 381.81 Dysfunction Of Eustachian Tube 07/14/2008 DAY HUGHES APRN S 625.6 Stress Incontinence Female 07/14/2008 ELVIA MIMS DO K 381.81 Dysfunction Of Eustachian Tube 07/14/2008 LUCIO MIMS DOA K 625.6 Stress Incontinence Female 07/14/2008 ROSENDO BARROW MD 381.81 Dysfunction Of Eustachian Tube 07/14/2008 ROSENDO BARROW MD 625.6 Stress Incontinence Female 07/14/2008 ELVIA MIMS DO K 381.81 Dysfunction Of Eustachian Tube 07/14/2008 ELVIA MIMS DO K 625.6 Stress Incontinence Female 07/14/2008 ROSENDO BARROW MD 381.81 Dysfunction Of Eustachian Tube 07/14/2008 ROSENDO BARROW MD 625.6 Stress Incontinence Female 07/14/2008 MAGNUS HUGHES APRNNDA S 381.81 Dysfunction Of Eustachian Tube 07/14/2008 MAGNUS HUGHES APRNNDA S 625.6 Stress Incontinence Female 07/14/2008 MAGNUS HUGHES APRNNDA S 381.81 Dysfunction Of Eustachian Tube 07/14/2008 MAGNUS HUGHES APRNNDA S 625.6 Stress Incontinence Female 07/14/2008 MAGNUS HUGHES APRNNDA S 381.81 Dysfunction Of Eustachian Tube 07/14/2008 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, DAY S 625.6 Stress Incontinence Female 07/14/2008 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, DAY S 381.81 Dysfunction Of Eustachian Tube 07/14/2008 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, DAY S 625.6 Stress Incontinence Female 07/14/2008 MIMS DO ELVIA K 381.81 Dysfunction Of Eustachian Tube 07/14/2008 MIMS DO ELVIA K 625.6 Stress Incontinence Female 07/14/2008 MIMS DO, ELVIA K 381.81 Dysfunction Of Eustachian Tube 07/14/2008 MIMS DO, ELVIA K 625.6 Stress Incontinence Female 07/14/2008 ELLENEDUARDO ADAMS DAY S 381.81 Dysfunction Of Eustachian Tube 07/14/2008 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, DAY S 625.6 Stress Incontinence Female 07/14/2008 KIRBY ALVA MD 381.81 Dysfunction Of Eustachian Tube 07/14/2008 KIRBY ALVA MD 625.6 Stress Incontinence Female 07/14/2008 ELLEN KEMPN DAY S 381.81 Dysfunction Of Eustachian Tube 07/14/2008 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 DAY S 625.6 Stress Incontinence Female 07/14/2008 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, DAY S 381.81 Dysfunction Of Eustachian Tube 07/14/2008 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, DAY S 625.6 Stress Incontinence Female 07/14/2008 HIRAM SCHROEDER DDS 381.81 Dysfunction Of Eustachian Tube 07/14/2008 HIRAM SCHROEDER DDS 625.6 Stress Incontinence Female 04/13/2009 FELICITA DO ELVIA K 386.10 Peripheral Vertigo 04/13/2009 FELICITA FUNES ELVIA K 780.4 Dizziness And Giddiness 04/13/2009 386.10 Peripheral Vertigo 04/13/2009 780.4 Dizziness And Giddiness 04/13/2009 LUCIO MIMS DOA K 386.10 Peripheral Vertigo 04/13/2009 MIMS DO ELVIA K 780.4 Dizziness And Giddiness 04/13/2009 386.10 Peripheral Vertigo 04/13/2009 780.4 Dizziness And Giddiness 04/13/2009 LUCIO MIMS DOA K 386.10 Peripheral Vertigo 04/13/2009 MIMS DO, ELVIA K 780.4 Dizziness And Giddiness 04/13/2009 MIMS DO, ELVIA K 386.10 Peripheral Vertigo 04/13/2009 MIMS DO, ELVIA K 780.4 Dizziness And Giddiness 04/13/2009 386.10 Peripheral Vertigo 04/13/2009 780.4 Dizziness And Giddiness 04/13/2009 386.10 Peripheral Vertigo 04/13/2009 780.4 Dizziness And Giddiness 04/13/2009 386.10 Peripheral Vertigo 04/13/2009 780.4 Dizziness And Giddiness 04/13/2009 ROSENDO BARROW MD 386.10 Peripheral Vertigo 04/13/2009 ROSENDO BARROW MD 780.4 Dizziness And Giddiness 04/13/2009 ROSENDO BARROW MD 386.10 Peripheral Vertigo 04/13/2009 ROSENDO BARROW MD 780.4 Dizziness And Giddiness 04/13/2009 MAGNUS HUGHES APRNNDA S 386.10 Peripheral Vertigo 04/13/2009 ELLEN ADAMS DAY S 780.4 Dizziness And Giddiness 04/13/2009 MIMS DOLUCIOA K 386.10 Peripheral Vertigo 04/13/2009 MIMS DO, ELVIA K 780.4 Dizziness And Giddiness 04/13/2009 ROSENDO BARROW MD 386.10 Peripheral Vertigo 04/13/2009 ROSENDO BARROW MD 780.4 Dizziness And Giddiness 04/13/2009 MIMS DO ELVIA K 386.10 Peripheral Vertigo 04/13/2009 MIMS DO ELVIA K 780.4 Dizziness And Giddiness 04/13/2009 ROSENDO BARROW MD 386.10 Peripheral Vertigo 04/13/2009 ROSENDO BARROW MD 780.4 Dizziness And Giddiness 04/13/2009 ELLEN ADAMS DAY S 386.10 Peripheral Vertigo 04/13/2009 ELLEN ADAMS DAY S 780.4 Dizziness And Giddiness 04/13/2009 ELLEN ADAMS DAY S 386.10 Peripheral Vertigo 04/13/2009 ELLEN ADAMS DAY S 780.4 Dizziness And Giddiness 04/13/2009 ELLEN ADAMS DAY S 386.10 Peripheral Vertigo 04/13/2009 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, DAY S 780.4 Dizziness And Giddiness 04/13/2009 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, DAY S 386.10 Peripheral Vertigo 04/13/2009 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, DAY S 780.4 Dizziness And Giddiness 04/13/2009 MIMS DO, ELVIA K 386.10 Peripheral Vertigo 04/13/2009 MIMS DO, ELVIA K 780.4 Dizziness And Giddiness 04/13/2009 MIMS DO, ELVIA K 386.10 Peripheral Vertigo 04/13/2009 MIMS DO, ELVIA K 780.4 Dizziness And Giddiness 04/13/2009 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, DAY S 386.10 Peripheral Vertigo 04/13/2009 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, DAY S 780.4 Dizziness And Giddiness 04/13/2009 ARTIE ORTIZ, ALI 386.10 Peripheral Vertigo 04/13/2009 ARTIE ORTIZ, ALI 780.4 Dizziness And Giddiness 04/13/2009 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, DAY S 386.10 Peripheral Vertigo 04/13/2009 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, DAY S 780.4 Dizziness And Giddiness 04/13/2009 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, DAY S 386.10 Peripheral Vertigo 04/13/2009 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, DAY S 780.4 Dizziness And Giddiness 04/13/2009 SCHROEDER DDS, HIRAM 386.10 Peripheral Vertigo 04/13/2009 SCHROEDER DDS, HIRAM 780.4 Dizziness And Giddiness 06/16/2009 ELVIA MIMS DO K 995.20 Unspecified Adverse Effect Of Unspecified Drug, Medicinal And Biological Substance, Not Elsewhere Classified 06/16/2009 995.20 Unspecified Adverse Effect Of Unspecified Drug, Medicinal And Biological Substance, Not Elsewhere Classified 06/16/2009 LUCIO MIMS DOA K 995.20 Unspecified Adverse Effect Of Unspecified Drug, Medicinal And Biological Substance, Not Elsewhere Classified 06/16/2009 995.20 Unspecified Adverse Effect Of Unspecified Drug, Medicinal And Biological Substance, Not Elsewhere Classified 06/16/2009 FELICITA FUNES ELVIA K 995.20 Unspecified Adverse Effect Of Unspecified Drug, Medicinal And Biological Substance, Not Elsewhere Classified 06/16/2009 ELVIA MIMS DO 995.20 Unspecified Adverse Effect Of Unspecified Drug, Medicinal And Biological Substance, Not Elsewhere Classified 06/16/2009 995.20 Unspecified Adverse Effect Of Unspecified Drug, Medicinal And Biological Substance, Not Elsewhere Classified 06/16/2009 995.20 Unspecified Adverse Effect Of Unspecified Drug, Medicinal And Biological Substance, Not Elsewhere Classified 06/16/2009 995.20 Unspecified Adverse Effect Of Unspecified Drug, Medicinal And Biological Substance, Not Elsewhere Classified 06/16/2009 ROSENDO BARROW MD 995.20 Unspecified Adverse Effect Of Unspecified Drug, Medicinal And Biological Substance, Not Elsewhere Classified 06/16/2009 ROSENDO BARROW MD 995.20 Unspecified Adverse Effect Of Unspecified Drug, Medicinal And Biological Substance, Not Elsewhere Classified 06/16/2009 ALYSSA HUGHES APRNA S 995.20 Unspecified Adverse Effect Of Unspecified Drug, Medicinal And Biological Substance, Not Elsewhere Classified 06/16/2009 ELVIA MIMS DO 995.20 Unspecified Adverse Effect Of Unspecified Drug, Medicinal And Biological Substance, Not Elsewhere Classified 06/16/2009 ROSENDO BARROW MD 995.20 Unspecified Adverse Effect Of Unspecified Drug, Medicinal And Biological Substance, Not Elsewhere Classified 06/16/2009 ELVIA MIMS DO 995.20 Unspecified Adverse Effect Of Unspecified Drug, Medicinal And Biological Substance, Not Elsewhere Classified 06/16/2009 ROSENDO BARROW MD 995.20 Unspecified Adverse Effect Of Unspecified Drug, Medicinal And Biological Substance, Not Elsewhere Classified 06/16/2009 ELLEN ADAMS DAY S 995.20 Unspecified Adverse Effect Of Unspecified Drug, Medicinal And Biological Substance, Not Elsewhere Classified 06/16/2009 ELLEN ADAMS DAY S 995.20 Unspecified Adverse Effect Of Unspecified Drug, Medicinal And Biological Substance, Not Elsewhere Classified 06/16/2009 ELLEN ADAMS DAY S 995.20 Unspecified Adverse Effect Of Unspecified Drug, Medicinal And Biological Substance, Not Elsewhere Classified 06/16/2009 ELLEN ADAMS DAY S 995.20 Unspecified Adverse Effect Of Unspecified Drug, Medicinal And Biological Substance, Not Elsewhere Classified 06/16/2009 ELVIA MIMS DO 995.20 Unspecified Adverse Effect Of Unspecified Drug, Medicinal And Biological Substance, Not Elsewhere Classified 06/16/2009 MIMS DO ELVIA K 995.20 Unspecified Adverse Effect Of Unspecified Drug, Medicinal And Biological Substance, Not Elsewhere Classified 06/16/2009 DAY HUGHES APRN S 995.20 Unspecified Adverse Effect Of Unspecified Drug, Medicinal And Biological Substance, Not Elsewhere Classified 06/16/2009 ARTIE ORTIZ, KIRBY 995.20 Unspecified Adverse Effect Of Unspecified Drug , Medicinal And Biological Substance, Not Elsewhere Classified 06/16/2009 DAY HUGHES APRN S 995.20 Unspecified Adverse Effect Of Unspecified Drug, Medicinal And Biological Substance, Not Elsewhere Classified 06/16/2009 DAY HUGHES APRN S 995.20 Unspecified Adverse Effect Of Unspecified Drug, Medicinal And Biological Substance, Not Elsewhere Classified 06/16/2009 HIRAM SCHROEDER DDS 995.20 Unspecified Adverse Effect Of Unspecified Drug, Medicinal And Biological Substance, Not Elsewhere Classified 11/26/2009 MIMS DOLUCIOA K 724.2 LUMBAGO/ LOW BACK PAIN 11/26/2009 724.2 LUMBAGO/ LOW BACK PAIN 11/26/2009 MIMS DO ELVIA K 724.2 LUMBAGO/ LOW BACK PAIN 11/26/2009 724.2 LUMBAGO/ LOW BACK PAIN 11/26/2009 MIMS DOLUCIOA K 724.2 LUMBAGO/ LOW BACK PAIN 11/26/2009 MIMS DO ELVIA K 724.2 LUMBAGO/ LOW BACK PAIN 11/26/2009 724.2 LUMBAGO/ LOW BACK PAIN 11/26/2009 724.2 LUMBAGO/ LOW BACK PAIN 11/26/2009 724.2 LUMBAGO/ LOW BACK PAIN 11/26/2009 PUSHPA ORTIZ, ROSENDO 724.2 LUMBAGO/ LOW BACK PAIN 11/26/2009 PUSHPA ORTIZ, ROSENDO Leary4.2 LUMBAGO/ LOW BACK PAIN 11/26/2009 DAY HUGHES APRN 724.2 LUMBAGO/ LOW BACK PAIN 11/26/2009 MIMS LUCIO FUNESA K 724.2 LUMBAGO/ LOW BACK PAIN 11/26/2009 PUSHPA ORTIZ, ROSENDO 724.2 LUMBAGO/ LOW BACK PAIN 11/26/2009 MISM DO, ELVIA K 724.2 LUMBAGO/ LOW BACK PAIN 11/26/2009 ROSENDO BARROW MD 724.2 LUMBAGO/ LOW BACK PAIN 11/26/2009 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, DAY S 724.2 LUMBAGO/ LOW BACK PAIN 11/26/2009 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, DAY S 724.2 LUMBAGO/ LOW BACK PAIN 11/26/2009 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, DAY S 724.2 LUMBAGO/ LOW BACK PAIN 11/26/2009 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, DAY S 724.2 LUMBAGO/ LOW BACK PAIN 11/26/2009 MIMS DO, ELVIA K 724.2 LUMBAGO/ LOW BACK PAIN 11/26/2009 MIMS DO, ELVIA K 724.2 LUMBAGO/ LOW BACK PAIN 11/26/2009 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, DAY S 724.2 LUMBAGO/ LOW BACK PAIN 11/26/2009 KIRBY ALVA MD 724.2 LUMBAGO/ LOW BACK PAIN 11/26/2009 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, DAY S 724.2 LUMBAGO/ LOW BACK PAIN 11/26/2009 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, DAY S 724.2 LUMBAGO/ LOW BACK PAIN 11/26/2009 HIRAM SCHROEDER DDS 724.2 LUMBAGO/ LOW BACK PAIN 12/08/2009 LUCIO MIMS DOA K 465.9 Acute Upper Respiratory Infections Of Unspecified Site 12/08/2009 465.9 Acute Upper Respiratory Infections Of Unspecified Site 12/08/2009 LUCIO MIMS DOA K 465.9 Acute Upper Respiratory Infections Of Unspecified Site 12/08/2009 465.9 Acute Upper Respiratory Infections Of Unspecified Site 12/08/2009 MIMS DO ELVIA K 465.9 Acute Upper Respiratory Infections Of Unspecified Site 12/08/2009 LUCIO MIMS DOA K 465.9 Acute Upper Respiratory Infections Of Unspecified Site 12/08/2009 465.9 Acute Upper Respiratory Infections Of Unspecified Site 12/08/2009 465.9 Acute Upper Respiratory Infections Of Unspecified Site 12/08/2009 465.9 Acute Upper Respiratory Infections Of Unspecified Site 12/08/2009 ROSENDO BARROW MD 465.9 Acute Upper Respiratory Infections Of Unspecified Site 12/08/2009 ROSENDO BARROW MD 465.9 Acute Upper Respiratory Infections Of Unspecified Site 12/08/2009 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, DAY S 465.9 Acute Upper Respiratory Infections Of Unspecified Site 12/08/2009 MIMS DO, ELVIA K 465.9 Acute Upper Respiratory Infections Of Unspecified Site 12/08/2009 RSOENDO BARROW MD 465.9 Acute Upper Respiratory Infections Of Unspecified Site 12/08/2009 MIMS DO, ELVIA K 465.9 Acute Upper Respiratory Infections Of Unspecified Site 12/08/2009 ROSENDO BARROW MD 465.9 Acute Upper Respiratory Infections Of Unspecified Site 12/08/2009 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, DAY S 465.9 Acute Upper Respiratory Infections Of Unspecified Site 12/08/2009 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, DAY S 465.9 Acute Upper Respiratory Infections Of Unspecified Site 12/08/2009 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, DAY S 465.9 Acute Upper Respiratory Infections Of Unspecified Site 12/08/2009 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, ADY S 465.9 Acute Upper Respiratory Infections Of Unspecified Site 12/08/2009 MIMS DO, ELVIA K 465.9 Acute Upper Respiratory Infections Of Unspecified Site 12/08/2009 MIMS DO, ELVIA K 465.9 Acute Upper Respiratory Infections Of Unspecified Site 12/08/2009 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, DAY S 465.9 Acute Upper Respiratory Infections Of Unspecified Site 12/08/2009 KIRBY ALVA MD 465.9 Acute Upper Respiratory Infections Of Unspecified Site 12/08/2009 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, DAY S 465.9 Acute Upper Respiratory Infections Of Unspecified Site 12/08/2009 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, DAY S 465.9 Acute Upper Respiratory Infections Of Unspecified Site 12/08/2009 HIRAM SCHROEDER DDS 465.9 Acute Upper Respiratory Infections Of Unspecified Site 12/17/2009 MIMS DO, ELVIA K 461.0 Acute Maxillary Sinusitis 12/17/2009 461.0 Acute Maxillary Sinusitis 12/17/2009 MIMS DO, ELVIA K 461.0 Acute Maxillary Sinusitis 12/17/2009 461.0 Acute Maxillary Sinusitis 12/17/2009 MIMS DO, ELVIA K 461.0 Acute Maxillary Sinusitis 12/17/2009 MIMS DO, ELVIA K 461.0 Acute Maxillary Sinusitis 12/17/2009 461.0 Acute Maxillary Sinusitis 12/17/2009 461.0 Acute Maxillary Sinusitis 12/17/2009 461.0 Acute Maxillary Sinusitis 12/17/2009 PUSHPA ORTIZ, ROSENDO 461.0 Acute Maxillary Sinusitis 12/17/2009 PUSHPA ORTIZ, ROSENDO 461.0 Acute Maxillary Sinusitis 12/17/2009 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, DAY S 461.0 Acute Maxillary Sinusitis 12/17/2009 FELICITA FUNES ELVIA K 461.0 Acute Maxillary Sinusitis 12/17/2009 PUSHPA ORTIZ, ROSENDO 461.0 Acute Maxillary Sinusitis 12/17/2009 MIMS DO ELVIA K 461.0 Acute Maxillary Sinusitis 12/17/2009 PUSHPA ORTIZ, ROSENDO 461.0 Acute Maxillary Sinusitis 12/17/2009 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, 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 461.0 Acute Maxillary Sinusitis 12/17/2009 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, 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 461.0 Acute Maxillary Sinusitis 12/17/2009 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, 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 461.0 Acute Maxillary Sinusitis 12/17/2009 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, 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 461.0 Acute Maxillary Sinusitis 12/17/2009 FELICITA FUNES ELVIA K 461.0 Acute Maxillary Sinusitis 12/17/2009 MIMS DO, ELVIA K 461.0 Acute Maxillary Sinusitis 12/17/2009 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, 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 461.0 Acute Maxillary Sinusitis 12/17/2009 KIRBY ALVA MD 461.0 Acute Maxillary Sinusitis 12/17/2009 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, 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 461.0 Acute Maxillary Sinusitis 12/17/2009 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, 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 461.0 Acute Maxillary Sinusitis 12/17/2009 HIRAM SCHROEDER DDS 461.0 Acute Maxillary Sinusitis 03/13/2010 LUCIO MIMS DOA K 368.11 Worsening Vision Started Suddenly 03/13/2010 LUCIO MIMS DOA K 372.30 Conjunctivitis 03/13/2010 368.11 Worsening Vision Started Suddenly 03/13/2010 372.30 Conjunctivitis 03/13/2010 LUCIO MIMS DOA K 368.11 Worsening Vision Started Suddenly 03/13/2010 MIMS DO, ELVIA K 372.30 Conjunctivitis 03/13/2010 368.11 Worsening Vision Started Suddenly 03/13/2010 372.30 Conjunctivitis 03/13/2010 MIMS DO, ELVIA K 368.11 Worsening Vision Started Suddenly 03/13/2010 MIMS DO, ELVIA K 372.30 Conjunctivitis 03/13/2010 MIMS DO, ELVIA K 368.11 Worsening Vision Started Suddenly 03/13/2010 MIMS DO, ELVIA K 372.30 Conjunctivitis 03/13/2010 368.11 Worsening Vision Started Suddenly 03/13/2010 372.30 Conjunctivitis 03/13/2010 368.11 Worsening Vision Started Suddenly 03/13/2010 372.30 Conjunctivitis 03/13/2010 368.11 Worsening Vision Started Suddenly 03/13/2010 372.30 Conjunctivitis 03/13/2010 ROSENDO BARROW MD 368.11 Worsening Vision Started Suddenly 03/13/2010 ROSENDO BARROW MD 372.30 Conjunctivitis 03/13/2010 ROSENDO BARROW MD 368.11 Worsening Vision Started Suddenly 03/13/2010 ROSENDO BARROW MD 372.30 Conjunctivitis 03/13/2010 DAY HUGHES APRN S 368.11 Worsening Vision Started Suddenly 03/13/2010 DAY HUGHES APRN S 372.30 Conjunctivitis 03/13/2010 MIMS DO, ELVIA K 368.11 Worsening Vision Started Suddenly 03/13/2010 MIMS DO ELVIA K 372.30 Conjunctivitis 03/13/2010 ROSENDO BARROW MD 368.11 Worsening Vision Started Suddenly 03/13/2010 ROSENDO BARROW MD 372.30 Conjunctivitis 03/13/2010 FELICITA FUNES ELVIA K 368.11 Worsening Vision Started Suddenly 03/13/2010 MIMS DO ELVIA K 372.30 Conjunctivitis 03/13/2010 ROSENDO BARROW MD 368.11 Worsening Vision Started Suddenly 03/13/2010 ROSENDO BARROW MD 372.30 Conjunctivitis 03/13/2010 ALYSSA HUGHES APRNA S 368.11 Worsening Vision Started Suddenly 03/13/2010 ALYSSA HUGHES APRNA S 372.30 Conjunctivitis 03/13/2010 DAY HUGHES APRN S 368.11 Worsening Vision Started Suddenly 03/13/2010 ELLEN ADAMS DAY S 372.30 Conjunctivitis 03/13/2010 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, DAY S 368.11 Worsening Vision Started Suddenly 03/13/2010 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, DAY S 372.30 Conjunctivitis 03/13/2010 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 DAY S 368.11 Worsening Vision Started Suddenly 03/13/2010 ELLEN ADAMS DAY S 372.30 Conjunctivitis 03/13/2010 MIMS DO, ELVIA K 368.11 Worsening Vision Started Suddenly 03/13/2010 MIMS DO, ELVIA K 372.30 Conjunctivitis 03/13/2010 MIMS DO, ELVIA K 368.11 Worsening Vision Started Suddenly 03/13/2010 MIMS DO, ELVIA K 372.30 Conjunctivitis 03/13/2010 ELLEN ADAMS DAY S 368.11 Worsening Vision Started Suddenly 03/13/2010 ELLEN ADAMS DAY S 372.30 Conjunctivitis 03/13/2010 KIRBY ALVA MD 368.11 Worsening Vision Started Suddenly 03/13/2010 KIRBY ALVA MD 372.30 Conjunctivitis 03/13/2010 ELLEN ADAMS DAY S 368.11 Worsening Vision Started Suddenly 03/13/2010 ELLEN ADAMS DAY S 372.30 Conjunctivitis 03/13/2010 ELLEN ADAMS DAY S 368.11 Worsening Vision Started Suddenly 03/13/2010 ELLEN ADAMS DAY S 372.30 Conjunctivitis 03/13/2010 HIRAM SCHROEDER DDS 368.11 Worsening Vision Started Suddenly 03/13/2010 HIRAM SCHROEDER DDS 372.30 Conjunctivitis 03/18/2010 MIMS DO, ELVIA K 300.00 Anxiety State Unspecified 03/18/2010 MIMS DO, ELVIA K 379.91 Pain In Or Around Eye 03/18/2010 IMMS DO, ELVIA K 435.9 Unspecified Transient Cerebral Ischemia 03/18/2010 300.00 Anxiety State Unspecified 03/18/2010 379.91 Pain In Or Around Eye 03/18/2010 435.9 Unspecified Transient Cerebral Ischemia 03/18/2010 MIMS DO, ELVIA K 300.00 Anxiety State Unspecified 03/18/2010 MIMS DO, ELVIA K 379.91 Pain In Or Around Eye 03/18/2010 MIMS DO, ELVIA K 435.9 Unspecified Transient Cerebral Ischemia 03/18/2010 300.00 Anxiety State Unspecified 03/18/2010 379.91 Pain In Or Around Eye 03/18/2010 435.9 Unspecified Transient Cerebral Ischemia 03/18/2010 MIMS DO, ELVIA K 300.00 Anxiety State Unspecified 03/18/2010 MIMS DO, ELVIA K 379.91 Pain In Or Around Eye 03/18/2010 MIMS DO, ELVIA K 435.9 Unspecified Transient Cerebral Ischemia 03/18/2010 MIMS DO, ELVIA K 300.00 Anxiety State Unspecified 03/18/2010 MIMS DO, ELVIA K 379.91 Pain In Or Around Eye 03/18/2010 MIMS DO, ELVIA K 435.9 Unspecified Transient Cerebral Ischemia 03/18/2010 300.00 Anxiety State Unspecified 03/18/2010 379.91 Pain In Or Around Eye 03/18/2010 435.9 Unspecified Transient Cerebral Ischemia 03/18/2010 300.00 Anxiety State Unspecified 03/18/2010 379.91 Pain In Or Around Eye 03/18/2010 435.9 Unspecified Transient Cerebral Ischemia 03/18/2010 300.00 Anxiety State Unspecified 03/18/2010 379.91 Pain In Or Around Eye 03/18/2010 435.9 Unspecified Transient Cerebral Ischemia 03/18/2010 ROSENDO BARROW MD 300.00 Anxiety State Unspecified 03/18/2010 ROSENDO BARROW MD 379.91 Pain In Or Around Eye 03/18/2010 ROSENDO BARROW MD 435.9 Unspecified Transient Cerebral Ischemia 03/18/2010 ROSENDO BARROW MD 300.00 Anxiety State Unspecified 03/18/2010 ROSENDO BARROW MD 379.91 Pain In Or Around Eye 03/18/2010 ROSENDO BARROW MD 435.9 Unspecified Transient Cerebral Ischemia 03/18/2010 MAGNUS HUGHES APRNNDA S 300.00 Anxiety State Unspecified 03/18/2010 ELLEN ADAMS DAY S 379.91 Pain In Or Around Eye 03/18/2010 ELLEN ADAMS DAY S 435.9 Unspecified Transient Cerebral Ischemia 03/18/2010 MIMS DO, ELVIA K 300.00 Anxiety State Unspecified 03/18/2010 MIMS DO, ELVIA K 379.91 Pain In Or Around Eye 03/18/2010 MIMS DO, ELVIA K 435.9 Unspecified Transient Cerebral Ischemia 03/18/2010 ROSENDO BARROW MD 300.00 Anxiety State Unspecified 03/18/2010 ROSENDO BARROW MD 379.91 Pain In Or Around Eye 03/18/2010 ROSENDO BARROW MD 435.9 Unspecified Transient Cerebral Ischemia 03/18/2010 MIMS DO, ELVIA K 300.00 Anxiety State Unspecified 03/18/2010 MIMS DO, ELVIA K 379.91 Pain In Or Around Eye 03/18/2010 MIMS DO, ELVIA K 435.9 Unspecified Transient Cerebral Ischemia 03/18/2010 ROSENDO BARROW MD 300.00 Anxiety State Unspecified 03/18/2010 ROSENDO BARROW MD 379.91 Pain In Or Around Eye 03/18/2010 ROSENDO BARROW MD 435.9 Unspecified Transient Cerebral Ischemia 03/18/2010 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, DAY S 300.00 Anxiety State Unspecified 03/18/2010 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, DAY S 379.91 Pain In Or Around Eye 03/18/2010 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, DAY S 435.9 Unspecified Transient Cerebral Ischemia 03/18/2010 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, DAY S 300.00 Anxiety State Unspecified 03/18/2010 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, DAY S 379.91 Pain In Or Around Eye 03/18/2010 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, DAY S 435.9 Unspecified Transient Cerebral Ischemia 03/18/2010 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, DAY S 300.00 Anxiety State Unspecified 03/18/2010 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, DAY S 379.91 Pain In Or Around Eye 03/18/2010 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, DAY S 435.9 Unspecified Transient Cerebral Ischemia 03/18/2010 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, DAY S 300.00 Anxiety State Unspecified 03/18/2010 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, DAY S 379.91 Pain In Or Around Eye 03/18/2010 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, DAY S 435.9 Unspecified Transient Cerebral Ischemia 03/18/2010 MIMS DO, ELVIA K 300.00 Anxiety State Unspecified 03/18/2010 MIMS DO, ELVIA K 379.91 Pain In Or Around Eye 03/18/2010 MIMS DO, ELVIA K 435.9 Unspecified Transient Cerebral Ischemia 03/18/2010 MIMS DO, ELVIA K 300.00 Anxiety State Unspecified 03/18/2010 MIMS DO, ELVIA K 379.91 Pain In Or Around Eye 03/18/2010 MIMS DO, ELVIA K 435.9 Unspecified Transient Cerebral Ischemia 03/18/2010 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 DAY S 300.00 Anxiety State Unspecified 03/18/2010 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 DAY S 379.91 Pain In Or Around Eye 03/18/2010 ELLEN ADAMS DAY S 435.9 Unspecified Transient Cerebral Ischemia 03/18/2010 KIRBY ALVA MD 300.00 Anxiety State Unspecified 03/18/2010 KIRBY ALVA MD 379.91 Pain In Or Around Eye 03/18/2010 KIRBY ALVA MD 435.9 Unspecified Transient Cerebral Ischemia 03/18/2010 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 DAY S 300.00 Anxiety State Unspecified 03/18/2010 ELLEN ADAMS DAY S 379.91 Pain In Or Around Eye 03/18/2010 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 DAY S 435.9 Unspecified Transient Cerebral Ischemia 03/18/2010 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, DAY S 300.00 Anxiety State Unspecified 03/18/2010 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, DAY S 379.91 Pain In Or Around Eye 03/18/2010 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, DAY S 435.9 Unspecified Transient Cerebral Ischemia 03/18/2010 ELDA PATTONSHIRAM 300.00 Anxiety State Unspecified 03/18/2010 SCHROEDER ABDISHIRAM 379.91 Pain In Or Around Eye 03/18/2010 SCHROEDER ABDISHIRAM 435.9 Unspecified Transient Cerebral Ischemia 04/01/2010 MIMS DO, ELVIA K 443.9 PERIPHERAL VASCULAR DISEASE UNSPECIFIED 04/01/2010 443.9 PERIPHERAL VASCULAR DISEASE UNSPECIFIED 04/01/2010 MIMS DO, ELVIA K 443.9 PERIPHERAL VASCULAR DISEASE UNSPECIFIED 04/01/2010 443.9 PERIPHERAL VASCULAR DISEASE UNSPECIFIED 04/01/2010 MIMS DO, ELVIA K 443.9 PERIPHERAL VASCULAR DISEASE UNSPECIFIED 04/01/2010 MIMS DO, ELVIA K 443.9 PERIPHERAL VASCULAR DISEASE UNSPECIFIED 04/01/2010 443.9 PERIPHERAL VASCULAR DISEASE UNSPECIFIED 04/01/2010 443.9 PERIPHERAL VASCULAR DISEASE UNSPECIFIED 04/01/2010 443.9 PERIPHERAL VASCULAR DISEASE UNSPECIFIED 04/01/2010 ROSENDO BARROW MD 443.9 PERIPHERAL VASCULAR DISEASE UNSPECIFIED 04/01/2010 ROSENDO BARROW MD 443.9 PERIPHERAL VASCULAR DISEASE UNSPECIFIED 04/01/2010 ELLEN ADAMS DAY S 443.9 PERIPHERAL VASCULAR DISEASE UNSPECIFIED 04/01/2010 MIMS DOLUCIOA K 443.9 PERIPHERAL VASCULAR DISEASE UNSPECIFIED 04/01/2010 ROSENDO BARROW MD 443.9 PERIPHERAL VASCULAR DISEASE UNSPECIFIED 04/01/2010 MIMS DOLUCIOA K 443.9 PERIPHERAL VASCULAR DISEASE UNSPECIFIED 04/01/2010 ROSENDO BARROW MD 443.9 PERIPHERAL VASCULAR DISEASE UNSPECIFIED 04/01/2010 ELLEN KEMPN DAY S 443.9 PERIPHERAL VASCULAR DISEASE UNSPECIFIED 04/01/2010 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 DAY S 443.9 PERIPHERAL VASCULAR DISEASE UNSPECIFIED 04/01/2010 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 DAY S 443.9 PERIPHERAL VASCULAR DISEASE UNSPECIFIED 04/01/2010 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, DAY S 443.9 PERIPHERAL VASCULAR DISEASE UNSPECIFIED 04/01/2010 MIMS DOLUCIOA K 443.9 PERIPHERAL VASCULAR DISEASE UNSPECIFIED 04/01/2010 MIMS DOLUCIOA K 443.9 PERIPHERAL VASCULAR DISEASE UNSPECIFIED 04/01/2010 ELLEN ADAMS DAY S 443.9 PERIPHERAL VASCULAR DISEASE UNSPECIFIED 04/01/2010 KIRBY ALVA MD 443.9 PERIPHERAL VASCULAR DISEASE UNSPECIFIED 04/01/2010 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, DAY S 443.9 PERIPHERAL VASCULAR DISEASE UNSPECIFIED 04/01/2010 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, DAY S 443.9 PERIPHERAL VASCULAR DISEASE UNSPECIFIED 04/01/2010 HIRAM SCHROEDER DDS 443.9 PERIPHERAL VASCULAR DISEASE UNSPECIFIED 04/07/2010 MIMS DOLUCIOA K 786.50 Chest Pain 04/07/2010 786.50 Chest Pain 04/07/2010 MIMS DO ELVIA K 786.50 Chest Pain 04/07/2010 786.50 Chest Pain 04/07/2010 MIMS DO, ELVIA K 786.50 Chest Pain 04/07/2010 MIMS DO, ELVIA K 786.50 Chest Pain 04/07/2010 786.50 Chest Pain 04/07/2010 786.50 Chest Pain 04/07/2010 786.50 Chest Pain 04/07/2010 ROSENDO BARROW MD 786.50 Chest Pain 04/07/2010 ROSENDO BARROW MD 786.50 Chest Pain 04/07/2010 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, DAY S 786.50 Chest Pain 04/07/2010 MIMS DO, ELVIA K 786.50 Chest Pain 04/07/2010 ROSENDO BARROW MD 786.50 Chest Pain 04/07/2010 MIMS DO, ELVIA K 786.50 Chest Pain 04/07/2010 ROSENDO BARROW MD 786.50 Chest Pain 04/07/2010 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, DAY S 786.50 Chest Pain 04/07/2010 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, DAY S 786.50 Chest Pain 04/07/2010 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, DAY S 786.50 Chest Pain 04/07/2010 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, DAY S 786.50 Chest Pain 04/07/2010 MIMS DO, ELVIA K 786.50 Chest Pain 04/07/2010 MIMS DO, ELVIA K 786.50 Chest Pain 04/07/2010 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, DAY S 786.50 Chest Pain 04/07/2010 KIRBY ALVA MD 786.50 Chest Pain 04/07/2010 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, DAY S 786.50 Chest Pain 04/07/2010 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, DAY S 786.50 Chest Pain 04/07/2010 HIRAM SCHROEDER DDS 786.50 Chest Pain 05/05/2010 MIMS DO, ELVIA K 272.0 PURE HYPERCHOLESTEROLEMIA 05/05/2010 MIMS DO, ELVIA K 438.9 UNSPECIFIED LATE EFFECTS OF CEREBROVASCULAR DISEASE 05/05/2010 272.0 PURE HYPERCHOLESTEROLEMIA 05/05/2010 438.9 UNSPECIFIED LATE EFFECTS OF CEREBROVASCULAR DISEASE 05/05/2010 MIMS DO, ELVIA K 272.0 PURE HYPERCHOLESTEROLEMIA 05/05/2010 MIMS DO, ELVIA K 438.9 UNSPECIFIED LATE EFFECTS OF CEREBROVASCULAR DISEASE 05/05/2010 272.0 PURE HYPERCHOLESTEROLEMIA 05/05/2010 438.9 UNSPECIFIED LATE EFFECTS OF CEREBROVASCULAR DISEASE 05/05/2010 MIMS DO, ELVIA K 272.0 PURE HYPERCHOLESTEROLEMIA 05/05/2010 MIMS DO, ELVIA K 438.9 UNSPECIFIED LATE EFFECTS OF CEREBROVASCULAR DISEASE 05/05/2010 MIMS DO, ELVIA K 272.0 PURE HYPERCHOLESTEROLEMIA 05/05/2010 MIMS DO, ELVIA K 438.9 UNSPECIFIED LATE EFFECTS OF CEREBROVASCULAR DISEASE 05/05/2010 272.0 PURE HYPERCHOLESTEROLEMIA 05/05/2010 438.9 UNSPECIFIED LATE EFFECTS OF CEREBROVASCULAR DISEASE 05/05/2010 272.0 PURE HYPERCHOLESTEROLEMIA 05/05/2010 438.9 UNSPECIFIED LATE EFFECTS OF CEREBROVASCULAR DISEASE 05/05/2010 272.0 PURE HYPERCHOLESTEROLEMIA 05/05/2010 438.9 UNSPECIFIED LATE EFFECTS OF CEREBROVASCULAR DISEASE 05/05/2010 ROSENDO BARROW MD 272.0 PURE HYPERCHOLESTEROLEMIA 05/05/2010 ROSENDO BARROW MD 438.9 UNSPECIFIED LATE EFFECTS OF CEREBROVASCULAR DISEASE 05/05/2010 ROSENDO BARROW MD 272.0 PURE HYPERCHOLESTEROLEMIA 05/05/2010 ROSENDO BARROW MD 438.9 UNSPECIFIED LATE EFFECTS OF CEREBROVASCULAR DISEASE 05/05/2010 MAGNUS HUGHES APRNNDA S 272.0 PURE HYPERCHOLESTEROLEMIA 05/05/2010 MAGNUS HUGHES APRNNDA S 438.9 UNSPECIFIED LATE EFFECTS OF CEREBROVASCULAR DISEASE 05/05/2010 MIMS DO, EVLIA K 272.0 PURE HYPERCHOLESTEROLEMIA 05/05/2010 MIMS DO, ELVIA K 438.9 UNSPECIFIED LATE EFFECTS OF CEREBROVASCULAR DISEASE 05/05/2010 ROSENDO BARROW MD 272.0 PURE HYPERCHOLESTEROLEMIA 05/05/2010 ROSENDO BARROW MD 438.9 UNSPECIFIED LATE EFFECTS OF CEREBROVASCULAR DISEASE 05/05/2010 MIMS DO, ELVIA K 272.0 PURE HYPERCHOLESTEROLEMIA 05/05/2010 MIMS DO, ELVIA K 438.9 UNSPECIFIED LATE EFFECTS OF CEREBROVASCULAR DISEASE 05/05/2010 ROSENDO BARROW MD 272.0 PURE HYPERCHOLESTEROLEMIA 05/05/2010 ROSENDO BARROW MD 438.9 UNSPECIFIED LATE EFFECTS OF CEREBROVASCULAR DISEASE 05/05/2010 ELLEN ADAMS DAY S 272.0 PURE HYPERCHOLESTEROLEMIA 05/05/2010 ELLEN ADAMS DAY S 438.9 UNSPECIFIED LATE EFFECTS OF CEREBROVASCULAR DISEASE 05/05/2010 ELLEN ADAMS DAY S 272.0 PURE HYPERCHOLESTEROLEMIA 05/05/2010 ELLEN ADAMS DAY S 438.9 UNSPECIFIED LATE EFFECTS OF CEREBROVASCULAR DISEASE 05/05/2010 ELLEN KEMPN DAY S 272.0 PURE HYPERCHOLESTEROLEMIA 05/05/2010 ELLEN ADAMS DAY S 438.9 UNSPECIFIED LATE EFFECTS OF CEREBROVASCULAR DISEASE 05/05/2010 MAGNUS HUGHES APRNNDA S 272.0 PURE HYPERCHOLESTEROLEMIA 05/05/2010 ELLEN ADAMS DAY S 438.9 UNSPECIFIED LATE EFFECTS OF CEREBROVASCULAR DISEASE 05/05/2010 MIMS DO, ELVIA K 272.0 PURE HYPERCHOLESTEROLEMIA 05/05/2010 MIMS DO, ELVIA K 438.9 UNSPECIFIED LATE EFFECTS OF CEREBROVASCULAR DISEASE 05/05/2010 MIMS DO, ELVIA K 272.0 PURE HYPERCHOLESTEROLEMIA 05/05/2010 MIMS DO, ELVIA K 438.9 UNSPECIFIED LATE EFFECTS OF CEREBROVASCULAR DISEASE 05/05/2010 MAGNUS HUGHES APRNNDA S 272.0 PURE HYPERCHOLESTEROLEMIA 05/05/2010 MAGNUS HUGHES APRNNDA S 438.9 UNSPECIFIED LATE EFFECTS OF CEREBROVASCULAR DISEASE 05/05/2010 KIRBY ALVA MD 272.0 PURE HYPERCHOLESTEROLEMIA 05/05/2010 KIRBY ALVA MD 438.9 UNSPECIFIED LATE EFFECTS OF CEREBROVASCULAR DISEASE 05/05/2010 MAGNUS HUGHES APRNNDA S 272.0 PURE HYPERCHOLESTEROLEMIA 05/05/2010 MAGNUS HUGHES APRNNDA S 438.9 UNSPECIFIED LATE EFFECTS OF CEREBROVASCULAR DISEASE 05/05/2010 MAGNUS HUGHES APRNNDA S 272.0 PURE HYPERCHOLESTEROLEMIA 05/05/2010 ELLEN ADAMS DAY S 438.9 UNSPECIFIED LATE EFFECTS OF CEREBROVASCULAR DISEASE 05/05/2010 HIRAM SCHROEDER DDS 272.0 PURE HYPERCHOLESTEROLEMIA 05/05/2010 HIRAM SCHROEDER DDS 438.9 UNSPECIFIED LATE EFFECTS OF CEREBROVASCULAR DISEASE 05/25/2010 MIMS DO, ELVIA K 702.0 Actinic Keratosis 05/25/2010 702.0 Actinic Keratosis 05/25/2010 MIMS DO, ELVIA K 702.0 Actinic Keratosis 05/25/2010 702.0 Actinic Keratosis 05/25/2010 MIMS DO, ELVIA K 702.0 Actinic Keratosis 05/25/2010 MIMS DO, ELVIA K 702.0 Actinic Keratosis 05/25/2010 702.0 Actinic Keratosis 05/25/2010 702.0 Actinic Keratosis 05/25/2010 702.0 Actinic Keratosis 05/25/2010 PUSHPA ORTIZ, ROSENDO 702.0 Actinic Keratosis 05/25/2010 PUSHPA ORTIZ, ROSENDO 702.0 Actinic Keratosis 05/25/2010 ELLEN KEMPN, DAY S 702.0 Actinic Keratosis 05/25/2010 FELICITA FUNES ELVIA K 702.0 Actinic Keratosis 05/25/2010 PUSHPA ORTIZ, ROSENDO 702.0 Actinic Keratosis 05/25/2010 MIMS , ELVIA K 702.0 Actinic Keratosis 05/25/2010 PUSHPA ORTIZ, ROSENDO 702.0 Actinic Keratosis 05/25/2010 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, DAY S 702.0 Actinic Keratosis 05/25/2010 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, DAY S 702.0 Actinic Keratosis 05/25/2010 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, DAY S 702.0 Actinic Keratosis 05/25/2010 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, DAY S 702.0 Actinic Keratosis 05/25/2010 FELICITA FUNES, ELVIA K 702.0 Actinic Keratosis 05/25/2010 FELICITA FUNES, ELVIA K 702.0 Actinic Keratosis 05/25/2010 ELLEN KEMPN, DAY S 702.0 Actinic Keratosis 05/25/2010 KIRBY ALVA MD 702.0 Actinic Keratosis 05/25/2010 ELLEN ADAMS, DAY S 702.0 Actinic Keratosis 05/25/2010 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, DAY S 702.0 Actinic Keratosis 05/25/2010 HIRAM SCHROEDER DDS 702.0 Actinic Keratosis 06/02/2010 MIMS DO ELVIA K 272.4 HYPERLIPIDEMIA 06/02/2010 272.4 HYPERLIPIDEMIA 06/02/2010 MIMS DO, ELVIA K 272.4 HYPERLIPIDEMIA 06/02/2010 272.4 HYPERLIPIDEMIA 06/02/2010 MIMS DO, ELVIA K 272.4 HYPERLIPIDEMIA 06/02/2010 MIMS , ELVIA K 272.4 HYPERLIPIDEMIA 06/02/2010 272.4 HYPERLIPIDEMIA 06/02/2010 272.4 HYPERLIPIDEMIA 06/02/2010 272.4 HYPERLIPIDEMIA 06/02/2010 PUSHPA ORTIZ, ROSEDNO 272.4 HYPERLIPIDEMIA 06/02/2010 PUSHPA ORTIZ, ROSENDO 272.4 HYPERLIPIDEMIA 06/02/2010 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, DAY S 272.4 HYPERLIPIDEMIA 06/02/2010 MIMS DO, ELVIA K 272.4 HYPERLIPIDEMIA 06/02/2010 PUSHPA ORTIZ, ROSENDO 272.4 HYPERLIPIDEMIA 06/02/2010 MIMS DO, ELVIA K 272.4 HYPERLIPIDEMIA 06/02/2010 ROSENDO BARROW MD 272.4 HYPERLIPIDEMIA 06/02/2010 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, DAY S 272.4 HYPERLIPIDEMIA 06/02/2010 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, DAY S 272.4 HYPERLIPIDEMIA 06/02/2010 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, DAY S 272.4 HYPERLIPIDEMIA 06/02/2010 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, DAY S 272.4 HYPERLIPIDEMIA 06/02/2010 MIMS DO, ELVIA K 272.4 HYPERLIPIDEMIA 06/02/2010 MIMS DO, ELVIA K 272.4 HYPERLIPIDEMIA 06/02/2010 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, DAY S 272.4 HYPERLIPIDEMIA 06/02/2010 ARTIE ORTIZ, KIRBY 272.4 HYPERLIPIDEMIA 06/02/2010 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, DAY S 272.4 HYPERLIPIDEMIA 06/02/2010 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, DAY S 272.4 HYPERLIPIDEMIA 06/02/2010 HIRAM SCHROEDER DDS 272.4 HYPERLIPIDEMIA 08/09/2010 MIMS DOLUCIOA K V05.4 Varicella, Chickenpox 08/09/2010 V05.4 Varicella, Chickenpox 08/09/2010 MIMS DOELVIA K V05.4 Varicella, Chickenpox 08/09/2010 V05.4 Varicella, Chickenpox 08/09/2010 MIMS DO ELVIA K V05.4 Varicella, Chickenpox 08/09/2010 MIMS DO, ELVIA K V05.4 Varicella, Chickenpox 08/09/2010 V05.4 Varicella, Chickenpox 08/09/2010 V05.4 Varicella, Chickenpox 08/09/2010 V05.4 Varicella, Chickenpox 08/09/2010 ROSENDO BARROW MD V05.4 Varicella, Chickenpox 08/09/2010 ROSENDO BARROW MD V05.4 Varicella, Chickenpox 08/09/2010 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, DAY S V05.4 Varicella, Chickenpox 08/09/2010 ELVIA MIMS DO K V05.4 Varicella, Chickenpox 08/09/2010 PUSHPA ORTIZ, ROSENDO V05.4 Varicella, Chickenpox 08/09/2010 ELVIA MIMS DO V05.4 Varicella, Chickenpox 08/09/2010 PUSHPA ORTIZ, ROSENDO V05.4 Varicella, Chickenpox 08/09/2010 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, DAY S V05.4 Varicella, Chickenpox 08/09/2010 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, DAY S V05.4 Varicella, Chickenpox 08/09/2010 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, DAY S V05.4 Varicella, Chickenpox 08/09/2010 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, DAY S V05.4 Varicella, Chickenpox 08/09/2010 ELVIA MIMS DO V05.4 Varicella, Chickenpox 08/09/2010 ELVIA MIMS DO K V05.4 Varicella, Chickenpox 08/09/2010 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, DAY S V05.4 Varicella, Chickenpox 08/09/2010 ARTIE ORTIZ, KIRBY V05.4 Varicella, Chickenpox 08/09/2010 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, DAY S V05.4 Varicella, Chickenpox 08/09/2010 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, DAY S V05.4 Varicella, Chickenpox 08/09/2010 HIRAM SCHROEDER DDS V05.4 Varicella, Chickenpox 02/02/2011 ELVIA MIMS DO 701.9 Unspecified Hypertrophic And Atrophic Conditions Of Skin 02/02/2011 ELVIA MIMS DO V04.81 Flu Dx (medicare Only) 02/02/2011 701.9 Unspecified Hypertrophic And Atrophic Conditions Of Skin 02/02/2011 V04.81 Flu Dx (medicare Only) 02/02/2011 ELVIA MIMS DO 701.9 Unspecified Hypertrophic And Atrophic Conditions Of Skin 02/02/2011 ELVIA MIMS DO V04.81 Flu Dx (medicare Only) 02/02/2011 701.9 Unspecified Hypertrophic And Atrophic Conditions Of Skin 02/02/2011 V04.81 Flu Dx (medicare Only) 02/02/2011 MIMS DO ELVIA K 701.9 Unspecified Hypertrophic And Atrophic Conditions Of Skin 02/02/2011 MIMS DO, ELVIA K V04.81 Flu Dx (medicare Only) 02/02/2011 MIMS DO, ELVIA K 701.9 Unspecified Hypertrophic And Atrophic Conditions Of Skin 02/02/2011 MIMS DO, ELVIA K V04.81 Flu Dx (medicare Only) 02/02/2011 701.9 Unspecified Hypertrophic And Atrophic Conditions Of Skin 02/02/2011 V04.81 Flu Dx (medicare Only) 02/02/2011 701.9 Unspecified Hypertrophic And Atrophic Conditions Of Skin 02/02/2011 V04.81 Flu Dx (medicare Only) 02/02/2011 701.9 Unspecified Hypertrophic And Atrophic Conditions Of Skin 02/02/2011 V04.81 Flu Dx (medicare Only) 02/02/2011 ROSENDO BARROW MD1.9 Unspecified Hypertrophic And Atrophic Conditions Of Skin 02/02/2011 ROSENDO BARROW MD V04.81 Flu Dx (medicare Only) 02/02/2011 ROSENDO BARROW MD1.9 Unspecified Hypertrophic And Atrophic Conditions Of Skin 02/02/2011 ROSENDO BARROW MD V04.81 Flu Dx (medicare Only) 02/02/2011 DAY HUGHES APRN S 701.9 Unspecified Hypertrophic And Atrophic Conditions Of Skin 02/02/2011 DAY HUGHES APRN S V04.81 Flu Dx (medicare Only) 02/02/2011 FELICITA DOLUCIOA K 701.9 Unspecified Hypertrophic And Atrophic Conditions Of Skin 02/02/2011 MIMS DO, ELVIA K V04.81 Flu Dx (medicare Only) 02/02/2011 ROSENDO BARROW MD1.9 Unspecified Hypertrophic And Atrophic Conditions Of Skin 02/02/2011 ROSENDO BARROW MD4.81 Flu Dx (medicare Only) 02/02/2011 MIMS DOLUCIOA K 701.9 Unspecified Hypertrophic And Atrophic Conditions Of Skin 02/02/2011 MIMS DO, ELVIA K V04.81 Flu Dx (medicare Only) 02/02/2011 ROSENDO BARROW MD1.9 Unspecified Hypertrophic And Atrophic Conditions Of Skin 02/02/2011 HUERTER MD, ROSENDO V04.81 Flu Dx (medicare Only) 02/02/2011 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, DAY S 701.9 Unspecified Hypertrophic And Atrophic Conditions Of Skin 02/02/2011 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, DAY S V04.81 Flu Dx (medicare Only) 02/02/2011 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, DAY S 701.9 Unspecified Hypertrophic And Atrophic Conditions Of Skin 02/02/2011 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, DAY S V04.81 Flu Dx (medicare Only) 02/02/2011 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, DAY S 701.9 Unspecified Hypertrophic And Atrophic Conditions Of Skin 02/02/2011 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, DAY S V04.81 Flu Dx (medicare Only) 02/02/2011 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, DAY S 701.9 Unspecified Hypertrophic And Atrophic Conditions Of Skin 02/02/2011 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, DAY S V04.81 Flu Dx (medicare Only) 02/02/2011 MIMS DO, ELVIA K 701.9 Unspecified Hypertrophic And Atrophic Conditions Of Skin 02/02/2011 MIMS DO, ELVIA K V04.81 Flu Dx (medicare Only) 02/02/2011 MIMS DO, ELVIA K 701.9 Unspecified Hypertrophic And Atrophic Conditions Of Skin 02/02/2011 MIMS DO, ELVIA K V04.81 Flu Dx (medicare Only) 02/02/2011 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, DAY S 701.9 Unspecified Hypertrophic And Atrophic Conditions Of Skin 02/02/2011 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, DAY S V04.81 Flu Dx (medicare Only) 02/02/2011 ARTIE ORTIZ, ALI 701.9 Unspecified Hypertrophic And Atrophic Conditions Of Skin 02/02/2011 ARTIE ORTIZ, KIRBY V04.81 Flu Dx (medicare Only) 02/02/2011 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, DAY S 701.9 Unspecified Hypertrophic And Atrophic Conditions Of Skin 02/02/2011 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, DAY S V04.81 Flu Dx (medicare Only) 02/02/2011 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, DAY S 701.9 Unspecified Hypertrophic And Atrophic Conditions Of Skin 02/02/2011 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, DAY S V04.81 Flu Dx (medicare Only) 02/02/2011 SCHROEDERDAVID GALINDOHIRAM 701.9 Unspecified Hypertrophic And Atrophic Conditions Of Skin 02/02/2011 ELDA GALINDO, HIRAM V04.81 Flu Dx (medicare Only) 02/21/2011 MIMS DO, ELVIA K V72.31 Wood Heel Flap Trimmer Exam, Routine 02/21/2011 V72.31 Wood Heel Flap Trimmer Exam, Routine 02/21/2011 MIMS DO, ELVIA K V72.31 Wood Heel Flap Trimmer Exam, Routine 02/21/2011 V72.31 Wood Heel Flap Trimmer Exam, Routine 02/21/2011 MIMS DO, ELVIA K V72.31 Wood Heel Flap Trimmer Exam, Routine 02/21/2011 MIMS DO, ELVIA K V72.31 Wood Heel Flap Trimmer Exam, Routine 02/21/2011 V72.31 Wood Heel Flap Trimmer Exam, Routine 02/21/2011 V72.31 Wood Heel Flap Trimmer Exam, Routine 02/21/2011 V72.31 Wood Heel Flap Trimmer Exam, Routine 02/21/2011 ROSENDO BARROW MD V72.31 Wood Heel Flap Trimmer Exam, Routine 02/21/2011 ROSENDO BARROW MD V72.31 Wood Heel Flap Trimmer Exam, Routine 02/21/2011 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, DAY S V72.31 Wood Heel Flap Trimmer Exam, Routine 02/21/2011 MIMS DO ELVIA K V72.31 Wood Heel Flap Trimmer Exam, Routine 02/21/2011 ROSENDO BARROW MD V72.31 Wood Heel Flap Trimmer Exam, Routine 02/21/2011 MIMS DO, ELVIA K V72.31 Wood Heel Flap Trimmer Exam, Routine 02/21/2011 ROSENDO BARROW MD V72.31 Wood Heel Flap Trimmer Exam, Routine 02/21/2011 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, DAY S V72.31 Wood Heel Flap Trimmer Exam, Routine 02/21/2011 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, DAY S V72.31 Wood Heel Flap Trimmer Exam, Routine 02/21/2011 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, DAY S V72.31 Wood Heel Flap Trimmer Exam, Routine 02/21/2011 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, DAY S V72.31 Wood Heel Flap Trimmer Exam, Routine 02/21/2011 MIMS DO, ELVIA K V72.31 Wood Heel Flap Trimmer Exam, Routine 02/21/2011 MIMS DO, ELVIA K V72.31 Wood Heel Flap Trimmer Exam, Routine 02/21/2011 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, DAY S V72.31 Wood Heel Flap Trimmer Exam, Routine 02/21/2011 KIRBY ALVA MD V72.31 Wood Heel Flap Trimmer Exam, Routine 02/21/2011 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, DAY S V72.31 Wood Heel Flap Trimmer Exam, Routine 02/21/2011 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, DAY S V72.31 Wood Heel Flap Trimmer Exam, Routine 02/21/2011 HIRAM SCHROEDER DDS V72.31 Wood Heel Flap Trimmer Exam, Routine 02/23/2011 MIMS DO ELVIA K 436 Acute But Ill-defined Cerebrovascular Disease 02/23/2011 436 Acute But Ill-defined Cerebrovascular Disease 02/23/2011 FELICITA DO ELVIA K 436 Acute But Ill-defined Cerebrovascular Disease 02/23/2011 436 Acute But Ill-defined Cerebrovascular Disease 02/23/2011 MIMS DO ELVIA K 436 Acute But Ill-defined Cerebrovascular Disease 02/23/2011 MIMS DO ELVIA K 436 Acute But Ill-defined Cerebrovascular Disease 02/23/2011 436 Acute But Ill-defined Cerebrovascular Disease 02/23/2011 436 Acute But Ill-defined Cerebrovascular Disease 02/23/2011 436 Acute But Ill-defined Cerebrovascular Disease 02/23/2011 ROSENDO BARROW MD 436 Acute But Ill-defined Cerebrovascular Disease 02/23/2011 ROSENDO BARROW MD 436 Acute But Ill-defined Cerebrovascular Disease 02/23/2011 ELLEN KEMPN, DAY S 436 Acute But Ill-defined Cerebrovascular Disease 02/23/2011 FELICITA FUNES ELVIA K 436 Acute But Ill-defined Cerebrovascular Disease 02/23/2011 ROSENDO BARROW MD 436 Acute But Ill-defined Cerebrovascular Disease 02/23/2011 FELICITA FUNES ELVIA K 436 Acute But Ill-defined Cerebrovascular Disease 02/23/2011 ROSENDO BARROW MD 436 Acute But Ill-defined Cerebrovascular Disease 02/23/2011 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, DAY S 436 Acute But Ill-defined Cerebrovascular Disease 02/23/2011 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, DAY S 436 Acute But Ill-defined Cerebrovascular Disease 02/23/2011 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, DAY S 436 Acute But Ill-defined Cerebrovascular Disease 02/23/2011 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, DAY S 436 Acute But Ill-defined Cerebrovascular Disease 02/23/2011 MIMS DO ELVIA K 436 Acute But Ill-defined Cerebrovascular Disease 02/23/2011 MIMS DO ELVIA K 436 Acute But Ill-defined Cerebrovascular Disease 02/23/2011 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, DAY S 436 Acute But Ill-defined Cerebrovascular Disease 02/23/2011 ARTIE ORTIZ, ALI 436 Acute But Ill-defined Cerebrovascular Disease 02/23/2011 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, DAY S 436 Acute But Ill-defined Cerebrovascular Disease 02/23/2011 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, DAY S 436 Acute But Ill-defined Cerebrovascular Disease 02/23/2011 SCHROEDER JOSIE, HIRAM 436 Acute But Ill-defined Cerebrovascular Disease 03/07/2011 MIMS DO, ELVIA K 466.0 Acute Bronchitis 03/07/2011 466.0 Acute Bronchitis 03/07/2011 MIMS DO, ELVIA K 466.0 Acute Bronchitis 03/07/2011 466.0 Acute Bronchitis 03/07/2011 MIMS DO, ELVIA K 466.0 Acute Bronchitis 03/07/2011 MIMS DO, ELVIA K 466.0 Acute Bronchitis 03/07/2011 466.0 Acute Bronchitis 03/07/2011 466.0 Acute Bronchitis 03/07/2011 466.0 Acute Bronchitis 03/07/2011 ROSENDO BARROW MD 466.0 Acute Bronchitis 03/07/2011 ROSENDO BARROW MD 466.0 Acute Bronchitis 03/07/2011 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, DAY S 466.0 Acute Bronchitis 03/07/2011 MIMS DO, ELVIA K 466.0 Acute Bronchitis 03/07/2011 ROSENDO BARROW MD 466.0 Acute Bronchitis 03/07/2011 MIMS DO, ELVIA K 466.0 Acute Bronchitis 03/07/2011 ROSENDO BARROW MD 466.0 Acute Bronchitis 03/07/2011 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, DAY S 466.0 Acute Bronchitis 03/07/2011 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, DAY S 466.0 Acute Bronchitis 03/07/2011 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, DAY S 466.0 Acute Bronchitis 03/07/2011 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, DAY S 466.0 Acute Bronchitis 03/07/2011 MIMS DO, ELVIA K 466.0 Acute Bronchitis 03/07/2011 MIMS DO, ELVIA K 466.0 Acute Bronchitis 03/07/2011 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, DAY S 466.0 Acute Bronchitis 03/07/2011 ARTIE ORTIZ, ALI 466.0 Acute Bronchitis 03/07/2011 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, DAY S 466.0 Acute Bronchitis 03/07/2011 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, DAY S 466.0 Acute Bronchitis 03/07/2011 HIRAM SCHROEDER DDS 466.0 Acute Bronchitis 05/05/2011 MIMS DO ELVIA K 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 05/05/2011 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 05/05/2011 MIMS DO, ELVIA K 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 05/05/2011 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 05/05/2011 MIMS DO, ELVIA K 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 05/05/2011 MIMS DO, ELVIA K 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 05/05/2011 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 05/05/2011 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 05/05/2011 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 05/05/2011 ROSENDO BARROW MD 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 05/05/2011 ROSENDO BARROW MD 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 05/05/2011 MAGNUS HUGHES APRNNDA S 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 05/05/2011 FELICITA FUNES ELVIA K 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 05/05/2011 ROSENDO BARROW MD 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 05/05/2011 FELICITA FUNES ELVIA K 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 05/05/2011 ROSENDO BARROW MD 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 05/05/2011 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 DAY S 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 05/05/2011 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, DAY S 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 05/05/2011 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, DAY S 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 05/05/2011 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, DAY S 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 05/05/2011 MIMS DO, ELVIA K 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 05/05/2011 MIMS DO, ELVIA K 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 05/05/2011 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, DAY S 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 05/05/2011 KIRBY ALVA MD 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 05/05/2011 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, DAY S 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 05/05/2011 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, DAY S 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 05/05/2011 HIRAM SCHROEDER DDS 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 07/05/2011 MIMS DO, ELVIA K 733.00 OSTEOPOROSIS UNSPECIFIED 07/05/2011 733.00 OSTEOPOROSIS UNSPECIFIED 07/05/2011 MIMS DO, ELVIA K 733.00 OSTEOPOROSIS UNSPECIFIED 07/05/2011 733.00 OSTEOPOROSIS UNSPECIFIED 07/05/2011 MIMS DO, ELVIA K 733.00 OSTEOPOROSIS UNSPECIFIED 07/05/2011 MIMS DO, ELVIA K 733.00 OSTEOPOROSIS UNSPECIFIED 07/05/2011 733.00 OSTEOPOROSIS UNSPECIFIED 07/05/2011 733.00 OSTEOPOROSIS UNSPECIFIED 07/05/2011 733.00 OSTEOPOROSIS UNSPECIFIED 07/05/2011 ROSENDO BARROW MD 733.00 OSTEOPOROSIS UNSPECIFIED 07/05/2011 ROSENDO BARROW MD 733.00 OSTEOPOROSIS UNSPECIFIED 07/05/2011 MAGNUS HUGHES APRNNDA S 733.00 OSTEOPOROSIS UNSPECIFIED 07/05/2011 FELICITA FUNES ELVIA K 733.00 OSTEOPOROSIS UNSPECIFIED 07/05/2011 ROSENDO BARROW MD 733.00 OSTEOPOROSIS UNSPECIFIED 07/05/2011 MIMS DO ELVIA K 733.00 OSTEOPOROSIS UNSPECIFIED 07/05/2011 ROSENDO BARROW MD 733.00 OSTEOPOROSIS UNSPECIFIED 07/05/2011 ELLEN ADAMS, DAY S 733.00 OSTEOPOROSIS UNSPECIFIED 07/05/2011 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, DAY S 733.00 OSTEOPOROSIS UNSPECIFIED 07/05/2011 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, DAY S 733.00 OSTEOPOROSIS UNSPECIFIED 07/05/2011 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, DAY S 733.00 OSTEOPOROSIS UNSPECIFIED 07/05/2011 MIMS DO, ELVIA K 733.00 OSTEOPOROSIS UNSPECIFIED 07/05/2011 MIMS DO, ELVIA K 733.00 OSTEOPOROSIS UNSPECIFIED 07/05/2011 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, DAY S 733.00 OSTEOPOROSIS UNSPECIFIED 07/05/2011 ARTIE ORTIZ, KIRBY 733.00 OSTEOPOROSIS UNSPECIFIED 07/05/2011 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, DAY S 733.00 OSTEOPOROSIS UNSPECIFIED 07/05/2011 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, DAY S 733.00 OSTEOPOROSIS UNSPECIFIED 07/05/2011 HIRAM SCHROEDER DDS 733.00 OSTEOPOROSIS UNSPECIFIED 01/19/2012 MIMS DO ELVIA K 700 CORNS AND CALLOSITIES 01/19/2012 FELICITA FUNES ELVIA K 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 01/19/2012 FELICITA FUNES ELVIA K 719.41 PAIN IN JOINT INVOLVING SHOULDER REGION 01/19/2012 MIMS DO ELVIA K V04.81 FLU DX (MEDICARE ONLY) 01/19/2012 700 CORNS AND CALLOSITIES 01/19/2012 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 01/19/2012 ELVIA MIMS DO K 719.41 Pain In Joint Involving Shoulder Region 01/19/2012 ELVIA MIMS DO K V04.81 FLU DX (MEDICARE ONLY) 01/19/2012 ELVIA MIMS DO K 700 CORNS AND CALLOSITIES 01/19/2012 ELVIA MIMS DO K 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 01/19/2012 LUCIO MIMS DOA K 719.41 Pain In Joint Involving Shoulder Region 01/19/2012 ELVIA MIMS DO K V04.81 FLU DX (MEDICARE ONLY) 01/19/2012 700 CORNS AND CALLOSITIES 01/19/2012 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 01/19/2012 719.41 Pain In Joint Involving Shoulder Region 01/19/2012 V04.81 FLU DX (MEDICARE ONLY) 01/19/2012 700 CORNS AND CALLOSITIES 01/19/2012 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 01/19/2012 719.41 Pain In Joint Involving Shoulder Region 01/19/2012 V04.81 FLU DX (MEDICARE ONLY) 01/19/2012 700 CORNS AND CALLOSITIES 01/19/2012 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 01/19/2012 719.41 Pain In Joint Involving Shoulder Region 01/19/2012 V04.81 FLU DX (MEDICARE ONLY) 01/19/2012 ROSENDO BARROW MD 700 CORNS AND CALLOSITIES 01/19/2012 ROSENDO BARROW MD 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 01/19/2012 ROSENDO BARROW MD 719.41 Pain In Joint Involving Shoulder Region 01/19/2012 ROSENDO BARROW MD V04.81 FLU DX (MEDICARE ONLY) 01/19/2012 ROSENDO BARROW MD 700 CORNS AND CALLOSITIES 01/19/2012 ROSENDO BARROW MD 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 01/19/2012 ROSENDO BARROW MD 719.41 Pain In Joint Involving Shoulder Region 01/19/2012 ROSENDO BARROW MD V04.81 FLU DX (MEDICARE ONLY) 01/19/2012 DAY HUGHES APRN S 700 CORNS AND CALLOSITIES 01/19/2012 MAGNUS HUGHES APRNNDA S 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 01/19/2012 ELLEN ADAMS DAY S 719.41 Pain In Joint Involving Shoulder Region 01/19/2012 MAGNUS HUGHES APRNNDA S V04.81 FLU DX (MEDICARE ONLY) 01/19/2012 MIMS DO ELVIA K 700 CORNS AND CALLOSITIES 01/19/2012 MIMS DO ELVIA K 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 01/19/2012 MIMS DOLUCIOA K 719.41 Pain In Joint Involving Shoulder Region 01/19/2012 MIMS DO ELVIA K V04.81 FLU DX (MEDICARE ONLY) 01/19/2012 ROSENDO BARROW MD 700 CORNS AND CALLOSITIES 01/19/2012 ROSENDO BARROW MD 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 01/19/2012 ROSENDO BARROW MD 719.41 Pain In Joint Involving Shoulder Region 01/19/2012 ROSENDO BARROW MD V04.81 FLU DX (MEDICARE ONLY) 01/19/2012 MIMS DO ELVIA K 700 CORNS AND CALLOSITIES 01/19/2012 MIMS DO ELVIA K 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 01/19/2012 LUCIO MIMS DOA K 719.41 Pain In Joint Involving Shoulder Region 01/19/2012 LUCIO MIMS DOA K V04.81 FLU DX (MEDICARE ONLY) 01/19/2012 ROSENDO BARROW MD 700 CORNS AND CALLOSITIES 01/19/2012 ROSENDO BARROW MD 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 01/19/2012 ROSENDO BARROW MD 719.41 Pain In Joint Involving Shoulder Region 01/19/2012 ROSENDO BARROW MD V04.81 FLU DX (MEDICARE ONLY) 01/19/2012 MAGNUS HUGHES APRNNDA S 700 CORNS AND CALLOSITIES 01/19/2012 ELLEN ADAMS DAY S 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 01/19/2012 ELLEN ADAMS DAY S 719.41 Pain In Joint Involving Shoulder Region 01/19/2012 MAGNUS HUGHES APRNNDA S V04.81 FLU DX (MEDICARE ONLY) 01/19/2012 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MAGNUS Bar[place]NDA S 700 CORNS AND CALLOSITIES 01/19/2012 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, DAY S 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 01/19/2012 ELLEN ADAMS DAY S 719.41 Pain In Joint Involving Shoulder Region 01/19/2012 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, DAY S V04.81 FLU DX (MEDICARE ONLY) 01/19/2012 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, DAY S 700 CORNS AND CALLOSITIES 01/19/2012 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, DAY S 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 01/19/2012 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, DAY S 719.41 Pain In Joint Involving Shoulder Region 01/19/2012 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, DAY S V04.81 FLU DX (MEDICARE ONLY) 01/19/2012 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, DAY S 700 CORNS AND CALLOSITIES 01/19/2012 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, DAY S 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 01/19/2012 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, DAY S 719.41 Pain In Joint Involving Shoulder Region 01/19/2012 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, DAY S V04.81 FLU DX (MEDICARE ONLY) 01/19/2012 MIMS DO, ELVIA K 700 CORNS AND CALLOSITIES 01/19/2012 MIMS DO, ELVIA K 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 01/19/2012 MIMS DO, ELVIA K 719.41 Pain In Joint Involving Shoulder Region 01/19/2012 MIMS DO, ELVIA K V04.81 FLU DX (MEDICARE ONLY) 01/19/2012 MIMS DO, ELVIA K 700 CORNS AND CALLOSITIES 01/19/2012 MIMS DO, ELVIA K 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 01/19/2012 MIMS DO, ELVIA K 719.41 Pain In Joint Involving Shoulder Region 01/19/2012 MIMS DO, ELVIA K V04.81 FLU DX (MEDICARE ONLY) 01/19/2012 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, DAY S 700 CORNS AND CALLOSITIES 01/19/2012 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, DAY S 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 01/19/2012 ELLEN ADAMS DAY S 719.41 Pain In Joint Involving Shoulder Region 01/19/2012 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, DAY S V04.81 FLU DX (MEDICARE ONLY) 01/19/2012 KIRBY ALVA MD 700 CORNS AND CALLOSITIES 01/19/2012 KIRBY ALVA MD 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 01/19/2012 KIRBY ALVA MD 719.41 Pain In Joint Involving Shoulder Region 01/19/2012 KIRBY ALVA MD V04.81 FLU DX (MEDICARE ONLY) 01/19/2012 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, DAY S 700 CORNS AND CALLOSITIES 01/19/2012 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, DAY S 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 01/19/2012 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, DAY S 719.41 Pain In Joint Involving Shoulder Region 01/19/2012 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, DAY S V04.81 FLU DX (MEDICARE ONLY) 01/19/2012 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, DAY S 700 CORNS AND CALLOSITIES 01/19/2012 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, DAY S 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 01/19/2012 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, DAY S 719.41 Pain In Joint Involving Shoulder Region 01/19/2012 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, DAY S V04.81 FLU DX (MEDICARE ONLY) 01/19/2012 SCHROEDER DDS, HIRAM 700 CORNS AND CALLOSITIES 01/19/2012 SCHROEDER DDS, HIRAM 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 01/19/2012 SCHROEDER DDS, HIRAM 719.41 Pain In Joint Involving Shoulder Region 01/19/2012 SCHROEDER DDS, HIRAM V04.81 FLU DX (MEDICARE ONLY) 04/19/2012 ELVIA MIMS DO 719.41 PAIN IN JOINT INVOLVING SHOULDER REGION 04/19/2012 ELVIA MIMS DO 719.41 PAIN IN JOINT INVOLVING SHOULDER REGION 04/19/2012 719.41 PAIN IN JOINT INVOLVING SHOULDER REGION 04/19/2012 719.41 PAIN IN JOINT INVOLVING SHOULDER REGION 04/19/2012 719.41 PAIN IN JOINT INVOLVING SHOULDER REGION 04/19/2012 ROSENDO BARROW MD 52Kimberly.41 PAIN IN JOINT INVOLVING SHOULDER REGION 04/19/2012 ROSENDO BARROW MD.41 PAIN IN JOINT INVOLVING SHOULDER REGION 04/19/2012 ALYSSA HUGHES APRNA S 719.41 PAIN IN JOINT INVOLVING SHOULDER REGION 04/19/2012 ELVIA MIMS DO 719.41 PAIN IN JOINT INVOLVING SHOULDER REGION 04/19/2012 HUERTER MD, ROSENDO 719.41 PAIN IN JOINT INVOLVING SHOULDER REGION 04/19/2012 ELVIA MIMS DO 719.41 PAIN IN JOINT INVOLVING SHOULDER REGION 04/19/2012 ROSENDO BARROW MD 719.41 PAIN IN JOINT INVOLVING SHOULDER REGION 04/19/2012 DAY HUGHES APRN S 719.41 PAIN IN JOINT INVOLVING SHOULDER REGION 04/19/2012 ALYSSA HUGHES APRNA S 719.41 PAIN IN JOINT INVOLVING SHOULDER REGION 04/19/2012 ALYSSA HUGHES APRNA S 719.41 PAIN IN JOINT INVOLVING SHOULDER REGION 04/19/2012 MAGNUS HUGHES APRNNDA S 719.41 PAIN IN JOINT INVOLVING SHOULDER REGION 04/19/2012 ELVIA MIMS DO K 719.41 PAIN IN JOINT INVOLVING SHOULDER REGION 04/19/2012 ELVIA MIMS DO K 719.41 PAIN IN JOINT INVOLVING SHOULDER REGION 04/19/2012 MAGNUS HUGHES APRNNDA S 719.41 PAIN IN JOINT INVOLVING SHOULDER REGION 04/19/2012 KRIBY ALVA MD 719.41 PAIN IN JOINT INVOLVING SHOULDER REGION 04/19/2012 ALYSSA HUGHES APRNA S 719.41 PAIN IN JOINT INVOLVING SHOULDER REGION 04/19/2012 MAGNUS HUGHES APRNNDA S 719.41 PAIN IN JOINT INVOLVING SHOULDER REGION 04/19/2012 HIRAM SCHROEDER DDS 719.41 PAIN IN JOINT INVOLVING SHOULDER REGION 05/04/2012 Ot 715.91 OSTEOARTHROS NOS-SHLDER 05/04/2012 Ot 726.2 SHOULDER REGION DIS NEC 05/04/2012 Ot 737.10 KYPHOSIS NOS 05/04/2012 Ot V57.1 PHYSICAL THERAPY NEC 09/05/2012 426.4 RBBB 09/05/2012 786.09 DYSPNEA 09/05/2012 426.4 RBBB 09/05/2012 786.09 DYSPNEA 09/05/2012 ROSENDO BARROW MD 426.4 RBBB 09/05/2012 ROSENDO BARROW MD 786.09 DYSPNEA 09/05/2012 ROSENDO BARROW MD 426.4 RBBB 09/05/2012 ROSENDO BARROW MD 786.09 DYSPNEA 09/05/2012 DAY HUGHES APRN 426.4 RBBB 09/05/2012 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, DAY S 786.09 DYSPNEA 09/05/2012 MIMS DO, ELVIA K 426.4 RBBB 09/05/2012 MIMS DO, ELVIA K 786.09 DYSPNEA 09/05/2012 PUSHPA ORTIZ, ROSENDO 426.4 RBBB 09/05/2012 PUSHPA ORTIZ, ROSENDO 786.09 DYSPNEA 09/05/2012 MIMS DO, ELVIA K 426.4 RBBB 09/05/2012 MIMS DO, ELVIA K 786.09 DYSPNEA 09/05/2012 PUSHPA ORTIZ, ROSENDO 426.4 RBBB 09/05/2012 PUSHPA ORTIZ, ROSENDO 786.09 DYSPNEA 09/05/2012 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, DAY S 426.4 RBBB 09/05/2012 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, DAY S 786.09 DYSPNEA 09/05/2012 ELLEN BAG MACHINE OPERATOR, DAY S 426.4 RBBB 09/05/2012 ELLEN BAG MACHINE OPERATOR, DAY S 786.09 DYSPNEA 09/05/2012 ELLEN BAG MACHINE OPERATOR, DAY S 426.4 RBBB 09/05/2012 ELLEN BAG MACHINE OPERATOR, DAY S 786.09 DYSPNEA 09/05/2012 ELLEN BAG MACHINE OPERATOR, DAY S 426.4 RBBB 09/05/2012 ELLEN BAG MACHINE OPERATOR, DAY S 786.09 DYSPNEA 09/05/2012 MIMS DO, ELVIA K 426.4 RBBB 09/05/2012 MIMS DO, ELVIA K 786.09 DYSPNEA 09/05/2012 MIMS DO, ELVIA K 426.4 RBBB 09/05/2012 MIMS DO, ELVIA K 786.09 DYSPNEA 09/05/2012 ELLEN BAG MACHINE OPERATOR, DAY S 426.4 RBBB 09/05/2012 ELLEN BAG MACHINE OPERATOR, DAY S 786.09 DYSPNEA 09/05/2012 ARTIE ORTIZ, KIRBY 426.4 RBBB 09/05/2012 KIRBY ALVA MD 786.09 DYSPNEA 09/05/2012 ELLEN BAG MACHINE OPERATOR, DAY S 426.4 RBBB 09/05/2012 ELLEN BAG MACHINE OPERATOR, DAY S 786.09 DYSPNEA 09/05/2012 ELLEN BAG MACHINE OPERATOR, DAY S 426.4 RBBB 09/05/2012 ELLEN ADAMS, DAY S 786.09 DYSPNEA 09/05/2012 HIRAM SCHROEDER DDS 426.4 RBRANJITH 09/05/2012 HIRAM SCHROEDER DDS 786.09 DYSPNEA 11/14/2012 110.1 ONYCHOMYCOSIS 11/14/2012 ROSENDO BARROW MD 110.1 ONYCHOMYCOSIS 11/14/2012 ROSENDO BARROW MD 110.1 ONYCHOMYCOSIS 11/14/2012 ELLEN ADAMS, DAY S 110.1 ONYCHOMYCOSIS 11/14/2012 MIMS , ELVIA K 110.1 ONYCHOMYCOSIS 11/14/2012 ROSENDO BARROW MD 110.1 ONYCHOMYCOSIS 11/14/2012 MIMS , ELVIA K 110.1 ONYCHOMYCOSIS 11/14/2012 ROSENDO BARROW MD 110.1 ONYCHOMYCOSIS 11/14/2012 ELLEN ADAMS, DAY S 110.1 ONYCHOMYCOSIS 11/14/2012 ELLEN ADAMS, DAY S 110.1 ONYCHOMYCOSIS 11/14/2012 ELLEN ADAMS, DAY S 110.1 ONYCHOMYCOSIS 11/14/2012 ELLEN ADAMS, DAY S 110.1 ONYCHOMYCOSIS 11/14/2012 MIMS DO, ELVIA K 110.1 ONYCHOMYCOSIS 11/14/2012 MIMS DO, ELVIA K 110.1 ONYCHOMYCOSIS 11/14/2012 ELLEN ADAMS, DAY S 110.1 ONYCHOMYCOSIS 11/14/2012 ARTIE ORTIZ, KIRBY 110.1 ONYCHOMYCOSIS 11/14/2012 ELLEN ADAMS, DAY S 110.1 ONYCHOMYCOSIS 11/14/2012 ELLEN ADAMS, DAY S 110.1 ONYCHOMYCOSIS 11/14/2012 HIRAM SCHROEDER DDS 110.1 ONYCHOMYCOSIS 01/22/2013 DELMER ORTIZ, NEGRO [place] Ot 272.0 PURE HYPERCHOLESTEROLEM 01/22/2013 DELMER ORTIZ, NEGRO [place] Ot 298.9 PSYCHOSIS NOS 01/22/2013 DELMER ORTIZ, NEGRO [place] Ot 305.1 TOBACCO USE DISORDER 01/22/2013 DELMER ORTIZ, NEGOR [place] Ot 315.35 CHILDHOOD ONSET FLUENCY DISORDER 01/22/2013 NEGRO DOWELL MD Ot 338.29 OTHER CHRONIC PAIN 01/22/2013 NEGRO DOWELL MD Ot 368.8 VISUAL DISTURBANCES NEC 01/22/2013 NEGRO DOWELL MD Ot 401.9 HYPERTENSION NOS 01/22/2013 NEGRO DOWELL MD Ot 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 01/22/2013 NEGRO DOWELL MD Ot 433.10 CAROTID ARTERY OCCLUSION W O CEREBRAL IN 01/22/2013 NEGRO DOWELL MD Ot 433.30 MULT BILTRAL ARTERY OCCLUSION WO CEREBRA 01/22/2013 NEGRO DOWELL MD Ot 596.51 HYPERTONICITY OF BLADDER 01/22/2013 NEGRO DOWELL MD Ot 724.5 BACKACHE NOS 01/22/2013 NEGRO DOWELL MD Ot 780.52 INSOMNIA, UNSPECIFIED 01/22/2013 NEGRO DOWELL MD Ot 780.93 MEMORY LOSS 01/22/2013 NEGRO DOWELL MD Ot 781.0 ABN INVOLUN MOVEMENT NEC 01/22/2013 NEGRO DOWELL MD Ot 784.0 HEADACHE 01/22/2013 NEGRO DOWELL MD Ot V12.54 PERSONAL HX OF TIA, CEREBRAL INFARCTION 01/29/2013 ROSENDO BARROW MD 784.0 HEADACHE 01/29/2013 ALYSSA HUGHES APRNA S 784.0 HEADACHE 01/29/2013 FELICITA FUNES ELVIA K 784.0 HEADACHE 01/29/2013 ROSENDO BARROW MD 784.0 HEADACHE 01/29/2013 FELICITA FUNES ELVIA K 784.0 HEADACHE 01/29/2013 ROSENDO BARROW MD 784.0 HEADACHE 01/29/2013 ELLEN ADAMS DAY S 784.0 HEADACHE 01/29/2013 ELLEN ADAMS DAY S 784.0 HEADACHE 01/29/2013 ELLEN BAG MACHINE OPERATOR, DAY S 784.0 HEADACHE 01/29/2013 ELLEN ADAMS DAY S 784.0 HEADACHE 01/29/2013 MIMS DO, ELVIA K 784.0 HEADACHE 01/29/2013 MIMS DO ELVIA K 784.0 HEADACHE 01/29/2013 ELLEN BAG MACHINE OPERATOR, DAY S 784.0 HEADACHE 01/29/2013 KIRBY ALVA MD 784.0 HEADACHE 01/29/2013 ELLEN BAG MACHINE OPERATOR, DAY S 784.0 HEADACHE 01/29/2013 ELLEN BAG MACHINE OPERATOR, DAY S 784.0 HEADACHE 01/29/2013 ELDA GALINDO, HIRAM 784.0 HEADACHE 02/05/2013 ROSENDO BARROW MD 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 02/05/2013 ELLEN BAG MACHINE OPERATOR, DAY S 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 02/05/2013 ELVIA MIMS DO K 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 02/05/2013 ROSENDO BARROW MD 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 02/05/2013 ELVIA MIMS DO K 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 02/05/2013 ROSENDO BARROW MD 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 02/05/2013 ELLEN BAG MACHINE OPERATOR, DAY S 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 02/05/2013 ELLEN BAG MACHINE OPERATOR, DAY S 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 02/05/2013 ELLEN BAG MACHINE OPERATOR, DAY S 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 02/05/2013 ELLEN BAG MACHINE OPERATOR, DAY S 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 02/05/2013 ELVIA MIMS DO K 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 02/05/2013 LUCIO MIMS DOA K 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 02/05/2013 ELLEN BAG MACHINE OPERATOR, DAY S 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
--- OUTSIDE RECORDS SUMMARY | 2016-07-05 13:31 | XMS REPORT ---
Author Author ANDRES ALVARADO [facility] Address Unknown Care Team Providers Care Medical Administrative Specialist Name Role Phone ANDRES ALVARADO Unavailable PROBLEMS Type Condition ICD9-CM Code [id number] Code Onset Dates Condition Status SNOMED Code Assessment Dental examination Z01.20 13 Nov, 2015 Active 373782247 Problem 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 486834881 Problem Dysfunction of right eustachian tube H69.81 Active 28867611 Problem CVA (cerebral vascular accident) I63.9 Active 765288526 Problem Cataracts, bilateral H26.9 Active 20293586 Problem Hyperlipemia E78.5 Active 71503462 Problem Hypertension I10 Active 31845587 ALLERGIES Unknown Allergies SOCIAL HISTORY No smoking Hx information available PLAN OF CARE VITAL SIGNS MEDICATIONS Unknown Medications RESULTS No Results PROCEDURES Procedure Date Ordered Related Diagnosis Body Site Dental no charge Dec 08, 2015 IMMUNIZATIONS No Known Immunizations
--- OUTSIDE RECORDS SUMMARY | 2016-07-05 13:31 | XMS REPORT ---
Author Author DAY HUGHES Organization [employer] Address Unknown Phone Unavailable Care Team Providers Care Ceramics Teacher Name Role Phone DAY HUGHES CP Unavailable Allergies No Known Allergies Problems Problem Type Condition Code Onset Dates Condition Status Problem Tobacco dependency 305.1 Active Problem CVA (cerebral infarction) 434.91 Active Problem Carotid arterial disease 447.9 Active Problem Dysfunction of right eustachian tube H69.81 Active Problem Other seborrheic keratosis 702.19 Active Problem Hyperlipemia E78.5 Active Problem Status [...] 305.1 Active Problem Hypertension 401.9 Active Medications No Known Medications Results No Known Results Summary Purpose [employer] Submission
--- OUTSIDE RECORDS SUMMARY | 2016-07-05 13:31 | XMS REPORT ---
Author Author DAY HUGHES [facility] eClinicalWorks Address Unknown Phone Unavailable Care Team Providers Care Technical Business Analyst Name Role Phone DAY HUGHES CP Unavailable Allergies, Adverse Reactions, Alerts Substance Reaction Event Type Flonase itching Drug Allergy Gadolinium-containing Contrast Media Info Not Available Non Drug Allergy Problems Problem Type Condition Code Onset Dates Condition Status Problem RBBB 426.4 Active Problem Tobacco dependency 305.1 Active Problem Hypertension 401.9 Active Problem Dysfunction of right eustachian tube H69.81 Active Assessment Dysfunction of right eustachian tube H69.81 Active Problem Essential hypertension I10 Active Assessment Essential hypertension I10 Active Problem 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 Problem CVA (cerebral infarction) 434.91 Active Problem Carotid arterial disease 447.9 Active Problem PVD (peripheral vascular disease) 443.9 Active Problem Hyperlipidemia 272.4 Active Problem 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 Problem Unspecified osteoporosis 733.00 Active Assessment 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 Problem Other seborrheic keratosis 702.19 Active Problem Unspecified essential hypertension 401.9 Active Problem Nondependent tobacco use disorder 305.1 Active Problem 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 Problem Occlusion and stenosis of carotid artery without mention of cerebral infarction 433.10 Active Problem Occlusion and stenosis of carotid artery with cerebral infarction 433.11 Active Problem Chest pain, unspecified 786.50 Active Medications Medication Code System Code Instructions Start Date End Date Status Dosage Lisinopril [facility] [address]-93 10 MG Orally Once a day LUPIN PHARMACE 1 tablet Tylenol with Codeine #3 [facility] 0 300-30 mg 1 tab(s) orally 4 times a day July 26, 2012 1-2 tablet by Oral route 4 times per day PRN Primidone [facility] [address]-94 50 MG Feb 26, 2014 1/2 tab in am and [address] [facility] [address]-15 4 mg Feb 27, 2013 take 1 tablet (4 mg) by oral route once daily Mobic [facility] [address]-88 15 MG Orally Once a day [address] [facility] [address] 81 MG Orally Once a day [address] [facility] 79551067362 75 MG TAKE ONE TABLET BY MOUTH ONCE DAILY Ranitidine HCl [facility] 83658053067 150 MG TAKE ONE TABLET BY MOUTH DAILY PredniSONE [facility] [address]-32 20 MG Orally Once a day Feb 26, 2015 Mar 03, 2015 1 tablet with food or milk Atenolol [facility] [address]-44 25 MG Orally Once a day [address] [facility] [address]-81 40 MG Orally Once a day 1 tablet in the evening Calcium ND 0 Oral Once a day 2 tab Procedures Procedure Coding System Code Date Office Visit, Est Pt., Level 3 CPT-4 66349 Feb 26, 2015 [facility] VISIT ESTABLISHED PATIENT CPT-4 G0467 Feb 26, 2015 Vital Signs Date/Time: Feb 26, 2015 Temperature 98.1 F Weight 137.3 lbs Height 57 in BMI 29.71 Index Blood Pressure Diastolic 78 mmHg Blood Pressure Systolic 120 mmHg Cardiac Monitoring Heart Rate 80 bpm Results No Known Results Summary Purpose eClinicalWorks Submission
--- OUTSIDE RECORDS SUMMARY | 2016-07-05 13:31 | XMS REPORT ---
Author Author DAY HUGHES Organization eClinicalWorks Address Unknown Phone Unavailable Care Team Providers Care Technology Recruiter Name Role Phone DAY HUGHES CP Unavailable [...]
--- OUTSIDE RECORDS SUMMARY | 2016-07-05 13:32 | XMS REPORT ---
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 [...] Instructions Start Date End Date Status Dosage Calcium NDC 0 Oral Once a [place] 2 [place] [address] 81 MG Orally Once a day 1 tablet Simvastatin ND 54326755700 40 MG TAKE ONE TABLET BY MOUTH ONCE DAILY Tylenol with Codeine #3 NDC 0 300-30 mg 1 tab(s) orally 4 times a day July 26, 2012 1-2 tablet by Oral route 4 times per day PRN Meloxicam ND 45279610757 15 MG TAKE ONE TABLET BY MOUTH DAILY Plavix ND 16305248242 75 MG TAKE ONE TABLET BY MOUTH ONCE DAILY Myrbetriq [facility] [address]-69 50 MG Orally Once a day 1 tablet Lisinopril [facility] 60486146962 10 Orally Once a day LUPIN PHARMACE 1 tablet Primidone [facility] [address]-88 50 MG Feb 26, 2014 3 tabs @ Atenolol [facility] 58835930238 25 MG TAKE ONE TABLET BY MOUTH DAILY Ranitidine HCl [facility] 26472547274 150 MG TAKE ONE TABLET BY MOUTH DAILY Magnesium [facility] [address] 400 MG Orally Once a day September 03, 2015 as directed Procedures Procedure Coding System Code Date Dental no charge CPT-4 D0099 October 07, 2015 Results No Known Results Summary Purpose eClinicalWorks Submission
--- OUTSIDE RECORDS SUMMARY | 2016-07-05 13:32 | XMS REPORT ---
Author Author DAY HUGHES Organization eClinicalWorks Address Unknown Phone Unavailable Care Team Providers Care Entry Level Marketing Representative Name Role Phone DAY HUGHES CP Unavailable Allergies No Known Allergies Problems Problem Type Condition ICD-9 Code Onset [...] Problem Unspecified essential hypertension 401.9 Active Medications No Known Medications Procedures Procedure Coding System Code Date VENIPUNCT, ROUTINE* CPT-4 71303 Nov 18, 2014 [facility] C[facility]-4 NOBLL Nov 18, 2014 Results Name Result Date Reference Range Unit Abnormality Flag ROUTINE VENIPUNCTURE Summary Purpose eClinicalWorks Submission
== END 2016-06-19 15:54 | disposition home or self-care (01) ==
LOC: EDUNIT# 13:41 → ER 13:43
DX: R10.31 Right lower quadrant pain (principal); N39.0 Urinary tract infection, site not specified; N20.0 Calculus of kidney; J44.9 Chronic obstructive pulmonary disease, unspecified; I10 Essential (primary) hypertension; I25.10 Atherosclerotic heart disease of native coronary artery without angina pectoris; F17.210 Nicotine dependence, cigarettes, uncomplicated; Z79.82 Long term (current) use of aspirin; Z79.02 Long term (current) use of antithrombotics/antiplatelets; Z79.899 Other long term (current) drug therapy; Z87.442 Personal history of urinary calculi
CPT/HCPCS: 36415; 74022; 74176; 80053; 81000; 82150; 83690; 85025; 87088; 96361; 96374

== ENCOUNTER 2016-07-04 08:18 | Outpatient (RCR) | payer MEDICARE ==
[~2016-07-04 08:18] MED LIST changes: +HYDR-3812 PO; +KETO10TA PO; +NITR-65 PO
== END 2016-07-06 13:44 | disposition home or self-care (01) ==
PROVIDERS: ATTEND Nurse Practitioner Community Health
DX: R10.9 Unspecified abdominal pain (principal)

== ENCOUNTER 2016-07-19 09:00 | Outpatient (CLI) | payer MEDICARE ==
[~2016-07-19] VITALS: Ht 144.8 cm; Wt 64.6 kg
== END 2016-07-19 09:49 ==
LOC: PREOP 09:00
PROVIDERS: ATTEND Surgery
DX: Z01.818 Encounter for other preprocedural examination (principal); R19.5 Other fecal abnormalities; K59.00 Constipation, unspecified

== ENCOUNTER 2016-07-20 07:33 | Day surgery (SDC) | payer MEDICARE ==
[~2016-07-20] VITALS: Ht 144.8 cm; Wt 64.6 kg
[2016-07-20 07:45] VITALS: BP 116/68
[2016-07-20] MEDS ORDERED: NS IV 1000 ML 1,000 ML IV PRN (07:45)
[2016-07-20] MEDS ORDERED: MIDAZOLAM 2 MG/2 ML (VERSED) VIAL ONE (08:34)
[2016-07-20] MEDS ORDERED: proPOfol 200 MG/20 ML (DIPRIVAN) VIAL IV ONE (08:34)
--- NOTE | 2016-07-20 08:34 | Progress Note-Pre Operative ---
Pre-Operative Progress Note H&P Reviewed The H&P was reviewed, patient examined and no changes noted. Date H&P Reviewed: Jul 20, 2016 Time H&P Reviewed: 08:30 Pre-Operative Diagnosis: Melena, Change in bowel habits KENYETTA REA DO Jul 20, 2016 08:34
--- NOTE | 2016-07-20 09:18 | Progress Note-Post Operative ---
Post-Operative Progess Note Surgeon (s)/Arc And Gas Welder (s) Surgeon KENYETTA REA DO Arc And Gas Welder: none Pre-Operative Diagnosis Melena, Change in bowel habits Post-Operative Diagnosis Colitis Diverticula Internal hemorrhoids Post-Op Procedure Note Date of Procedure: Jul 20, 2016 Name of Procedure Performed: Colonoscopy with hot bx Description of the Procedure: as above Findings of the Procedure see postop Anesthesia Type IV sedation by PROGRAMMER ENGINEERING AND SCIENTIFIC - propofol Estimated blood loss (mL): scant Specimen(s) collected/removed bx from ascending and descending colon KENYETTA REA DO Jul 20, 2016 09:18
--- NOTE | 2016-07-20 09:23 | Endoscopy Discharge Instruct ---
Endo Procedure/Findings Findings 1.: Colitis 2.: Diverticulosis 3.: Internal Hemorrhoids Discharge Instructions - Activity: You might feel a little sleepy until tomorrow. This is due to the medicine you received to relax you. Until tomorrow, you should: NOT drive a car, operate machinery or power tools. NOT drink any alcoholic beverages. NOT make any important decisions or sign importortant papers. Do not return to work until tomorrow, unless otherwise instructed. Resume previous activities tomorrow. Diet: Start by taking liquids. If you tolerate liquids, advance to solid food. Make appointment for one week. Instructions: 1.: Colonoscopy in 1 year Notify Physician - If you experience excessive bleeding, unusual abdominal pain, fever, or chest pain, contact your doctor immediately. Phone number [phone]. Follow-Up: - I have received and understand the above instructions and will call my doctor if I have any further questions. Patient Signature Date Nurse Signature Other (Relationship) KENYETTA REA DO Jul 20, 2016 09:23
[2016-07-20 09:35] VITALS: BP 121/72
[2016-07-20 10:10] VITALS: BP 127/78
[2016-07-20 10:15] VITALS: BP 127/78
--- NOTE | 2016-07-20 23:41 | OPERATIVE REPORT ---
DATE OF SERVICE: 07/20/2016 PREOPERATIVE DIAGNOSES: 1. Change in bowel habits. 2. Melena. POSTOPERATIVE DIAGNOSES: 1. Colitis. 2. Diverticula. 3. Internal hemorrhoids probably Grade 2. PROCEDURES: Colonoscopy with hot biopsy. SURGEON: Navin Crouch DO. ICT SUPPORT AND TEST ENGINEERS: None. ANESTHESIA: Intravenous sedation, propofol by the PERCUSSION TUNER. SPECIMEN: One biopsy from the ascending colon and 1 biopsy from the descending colon. BLOOD LOSS: Scant. FLUIDS: Per anesthesia. POSTOPERATIVE CONDITION: Stable. INDICATIONS FOR PROCEDURE: Patient is a 71-year-old female who has been having some change in bowel habits. She complains of a lot of constipation and thinks she has seen some melena. FINDINGS: Patient had what looked like inflammation almost like petechia that bled secondary to air insufflation and I believe a little bit of scope trauma. Pictures were taken. She also had a small diverticula and some internal hemorrhoids Grade 2. PROCEDURE NOTE: After informed consent was obtained the patient was brought to the endoscopy suite and placed into the left decubitus position. She was administered IV sedation and PERCUSSION TUNER monitored her vital signs. The scope was inserted. On the way in noted some, what looked like minimal petechia and inflammation starting just up into the descending colon. Pushed all of the way to the cecum and was able to see a picture of the appendiceal orifice and there was some more inflammation here. Could not into the terminal ileum but noted it. Then after pulling back from the cecum noted a large amount of bleeding. I was able to wash this blood off and then see it bleed from very tiny vessels coming through the wall. I elected to do a couple of hot biopsies in the ascending colon and then continued up the ascending colon, insufflated and look circumferentially at the lemus to the hepatic flexure and then down the transverse colon to the splenic flexure and to the descending colon. Again I took another biopsy here and then continued down to the sigmoid. Actually right when it transferred into the sigmoid all this petechia went away and then down into the rectum, retroflexed in the rectal vault and saw some Grade 2 internal hemorrhoids. I took a picture of this and then removed the scope. The patient tolerated the procedure well and was transferred to the recovery room in stable condition. Job ID: [id number] DocumentID: [id number] Dictated Date: 07/20/2016 09:25:09 Rrt Date: 07/20/2016 23:40:32 Dictated By: DO JENNIFER FELDER
== END 2016-07-20 10:15 | disposition home or self-care (01) ==
LOC: ENDO 07:33
PROVIDERS: ATTEND Surgery
DX: K52.9 Noninfective gastroenteritis and colitis, unspecified (principal); K57.90 Diverticulosis of intestine, part unspecified, without perforation or abscess without bleeding; K64.8 Other hemorrhoids
CPT/HCPCS: 88305

== ENCOUNTER 2016-07-26 22:42 | Observation (INO) | payer MEDICARE ==
[~2016-07-26] VITALS: Ht 147.3 cm; Wt 63.5 kg
[~2016-07-26 22:42] MED LIST changes: -RANI150T11 PO
--- NOTE | 2016-07-26 22:53 | ED GI ---
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 Had colonoscopy c/ bx on 07/20. On Plavix and ASA. Timing/Duration: Getting Worse Severity/Quality: Severe, Aching Location: RLQ Radiation: No Radiation Activities at Onset: None Modifying Factors: Improves With Other (none known) Allergies and Home Medications Allergies Coded Allergies: fluticasone (Verified Allergy, Unknown, RASH, 07/20/16) Uncoded Allergies: MRI DYE (Allergy, Severe, ANAPHYLAXIS, 01/22/13) Home Medications Acetaminophen/Codeine 1 Tab Tablet, 0.5-1 TAB PO q4hr PRN for PAIN, (Reported) TAKES 1/2-1 TABLET Aspirin 81 Mg Tablet.dr, 81 MG PO HS, (Reported) Atenolol 25 Mg Tablet, 25 MG PO HS, (Reported) Calcium Carb/Vit D3/Minerals 1 Each Tab.chew, 2 TAB PO HS, (Reported) Clopidogrel Bisulfate 75 Mg Tablet, 75 MG PO HS, (Reported) Lisinopril 10 Mg Tablet, 10 MG PO HS, (Reported) Meloxicam 15 Mg Tablet, 15 MG PO HS, (Reported) Primidone 50 Mg Tablet, 200 MG PO HS, (Reported) TAKES 4 (50MG) TABLETS Ranitidine Hcl 150 Mg Capsule, 150 MG PO HS, (Reported) Simvastatin 40 Mg Tablet, 40 MG PO HS, (Reported) Review of Systems Constitutional: see HPI Gastrointestinal: See HPI, Rectal Bleeding All Other Systems Reviewed Negative Unless Noted: Yes (Negative excepted noted.) Past Cexdafp-Pzqzsj-Yqpbrb Hx Patient Social History Type Used: Cigarettes 2nd Hand Smoke Exposure: No Recent Foreign Travel: No Contact w/Someone Who Travel: No Recent Hopitalizations: No Immunizations Up To Date Tetanus Booster (TDap): Unknown Date of Pneumonia Vaccine: Jan 21, 2009 Date of Influenza Vaccine: Dec 31, 2014 Seasonal Allergies Seasonal Allergies: No Surgeries HX Surgeries: Yes (CARDIAC CATH; HYST/BSO-2 DIFFERENT SURGERIES; SURGERY FOR PROLAPSED BLADDER) Surgeries: Adenoidectomy, Bladder Surgery, Cardiac, Hysterectomy, Oophorectomy , Tonsillectomy Respiratory Hx Respiratory Disorders: Yes Respiratory Disorders: COPD Cardiovascular Hx Cardiac Disorders: Yes Cardiac Disorders: Coronary Artery Disease, High Cholesterol, Hypertension, Peripheral Vascular Neurological Hx Neurological Disorders: Yes (FAMILIAL TREMOR) Neurological Disorders: Stroke Reproductive System Hx Reproductive Disorders: No Sexually Transmitted Disease: No HIV/AIDS: No Female Reproductive Disorders: Denies 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 Genitourinary Hx Genitourinary Disorders: Yes (Incontinence) Genitourinary Disorders: Kidney Stones Gastrointestinal Hx Gastrointestinal Disorders: Yes (black stools) Gastrointestinal Disorders: Chronic Constipation Musculoskeletal Hx Musculoskeletal Disorders: Yes Musculoskeletal Disorders: Arthritis, Back Injury, Chronic Back Pain Endocrine Hx Endocrine Disorders: No HEENT HX ENT Disorders: No Cancer Hx Cancer: No Psychosocial Hx Psychiatric Problems: No Integumentary HX Skin/Integumentary Disorder: No Blood Transfusions Hx Blood Disorders: No Adverse Reaction to a Blood Tr: No Family Medical History Family Medial History: Cardiovascular disease 19 FATHER ( at 73 with mi) Completed stroke 19 MOTHER ( at 83 complications of stroke) Physical Exam Vital Signs VS - Last 72 Hours, by Label 07/26/16 22:44 Temp 93.8 Pulse 95 Resp 24 B/P (MAP) 110/67 Pulse Ox 100 O2 Delivery Room Air Capillary Refill : General Appearance: WD/WN HEENT: normal ENT inspection Neck: normal inspection Respiratory: no respiratory distress Cardiovascular: regular rate, rhythm Gastrointestinal: No guarding, No rebound, tenderness (RLQ) Rectal: deferred, other (has BRB on night gown from rectal bleeding) Neurologic/Psychiatric: no motor/sensory deficits, alert, oriented x 3, other ( very anxious) Skin: warm/dry Progress/Results/Core Measures Results/Orders Lab Results Laboratory Tests Test 07/26/16 22:55 Range/Units White Blood Count 14.7 H 4.3-11.0 10^3/uL Red Blood Count 4.00 L 4.35-5.85 10^6/uL Hemoglobin 13.3 11.5-16.0 G/DL Hematocrit 40 35-52 % Mean Corpuscular Volume 99 80-99 FL Mean Corpuscular Hemoglobin 33 25-34 PG Mean Corpuscular Hemoglobin Concent 34 32-36 G/DL Red Cell Distribution Width 14.2 10.0-14.5 % Platelet Count 261 130-400 10^3/uL Mean Platelet Volume 10.2 7.4-10.4 FL Neutrophils (%) (Auto) 71 42-75 % Lymphocytes (%) (Auto) 21 12-44 % Monocytes (%) (Auto) 7 0-12 % Eosinophils (%) (Auto) 1 0-10 % Basophils (%) (Auto) 1 0-10 % Neutrophils # (Auto) 10.5 H 1.8-7.8 X 10^3 Lymphocytes # (Auto) 3.0 1.0-4.0 X 10^3 Monocytes # (Auto) 1.0 0.0-1.0 X 10^3 Eosinophils # (Auto) 0.2 0.0-0.3 10^3/uL Basophils # (Auto) 0.1 0.0-0.1 10^3/uL Neutrophils % (Manual) 59 % Lymphocytes % (Manual) 31 % Monocytes % (Manual) 5 % Eosinophils % (Manual) 1 % Basophils % (Manual) 0 % Band Neutrophils 4 % Blood Morphology Comment NORMAL Prothrombin Time 14.1 12.2-14.7 SEC INR Comment 1.1 0.8-1.4 Activated Partial Thromboplast Time 24 24-35 SEC Sodium Level 139 135-145 MMOL/L Potassium Level 4.1 3.6-5.0 MMOL/L Chloride Level 105 98-107 MMOL/L Carbon Dioxide Level 22 21-32 MMOL/L Anion Gap 12 5-14 MMOL/L Blood Urea Nitrogen 16 7-18 MG/DL Creatinine 0.82 0.60-1.30 MG/DL Estimat Glomerular Filtration Rate > 60 BUN/Creatinine Ratio 20 Glucose Level 147 H 70-105 MG/DL Calcium Level 8.7 8.5-10.1 MG/DL Total Bilirubin 0.3 0.1-1.0 MG/DL Aspartate Amino Transf (AST/SGOT) 14 5-34 U/L Alanine Aminotransferase (ALT/SGPT) 6 0-55 U/L Alkaline Phosphatase 67 40-136 U/L Total Protein 6.2 L 6.4-8.2 G/DL Albumin 3.8 3.2-4.5 G/DL My Orders Orders - CURTIS SIMON DO Saline Lock/Iv-Start (07/26/16 22:54) Cbc With Automated Diff (07/26/16 22:54) Comprehensive Metabolic Panel (07/26/16 22:54) Protime With Inr (07/26/16 22:54) Partial Thromboplastin Time (07/26/16 22:54) Red Cells Leukocytes Reduced (07/26/16 22:54) Type And Screen (07/26/16 22:54) Ns Iv 1000 Ml (Sodium Chloride 0.9%) (07/26/16 22:54) Manual Differential (07/26/16 22:55) Fentanyl Injection (Sublimaze Injection (07/26/16 23:30) Medications Given in ED Current Medications Medications Dose Ordered Sig/Tobias Route Start Time Stop Time Status Last Admin Dose Admin Fentanyl Citrate 50 mcg ONCE ONCE IVP 07/26/16 23:30 07/26/16 23:31 DC 07/26/16 23:42 50 MCG Sodium Chloride 1,000 ml @ 125 mls/hr Q8H ONCE IV 07/26/16 22:54 07/27/16 06:53 07/26/16 23:01 125 MLS/HR Vital Signs/I&O Vital Sign - Last 12Hours 07/26/16 22:44 Temp 93.8 Pulse 95 Resp 24 B/P (MAP) 110/67 Pulse Ox 100 O2 Delivery Room Air Intake and Output 07/27/16 00:00 Intake Total 1000 ml Balance 1000 ml Departure Communication Time/Spoke to Admitting Phy: 00:50 Impression Impression: Primary Impression: Hematochezia Disposition: ADMITTED INPATIENT Condition: Stable Decision to Admit Reason: Admit from ER (General) Decision to Admit/Date: July 27, 2016 Time/Decision to Admit Time: 00:50 Departure-Patient Inst. Referrals: ROSENDO BARROW MD (PCP) Primary Care Physician DAY HUGHES (Family) Primary Care Physician KENYETTA REA DO Patient Instructions: Bloody Stools, Adult (DC) Add. Discharge Instructions: DR. REA WANTS YOU TO STOP YOUR PLAVIX AND ASPIRIN. HE SAID IT IS GOING TO TAKE AWHILE FOR THE BLEEDING TO COMPLETELY STOP EVEN AFTER STOPPING THE PLAVIX AND ASPIRIN. CONTACT HIM IF ANY FURTHER CONCERNS, OR PROBLEMS. CURTIS SIMON DO July 26, 2016 22:53
[2016-07-26] MEDS ORDERED: NS IV 1000 ML 1,000 ML IV ONE (22:54)
[2016-07-26 23:05] LABS: BASOPHILS # (AUTO) 0.1 10^3/uL (0.0-0.1); BASOPHILS % (AUTO) 1 % (0-10); EOSINOPHILS # (AUTO) 0.2 10^3/uL (0.0-0.3); EOSINOPHILS % (AUTO) 1 % (0-10); LYMPHOCYTES % (AUTO) 21 % (12-44); MEAN CORPUSCULAR HEMOGLOBIN 33 PG (25-34); MEAN CORPUSCULAR HGB CONC 34 G/DL (32-36); MEAN CORPUSCULAR VOLUME 99 FL (80-99); MEAN PLATELET VOLUME 10.2 FL (7.4-10.4); MONOCYTES % (AUTO) 7 % (0-12); NEUTROPHILS # (AUTO) 10.5 X 10^3 (1.8-7.8); NEUTROPHILS % (AUTO) 71 % (42-75); PLATELET COUNT 261 10^3/uL (130-400); RED CELL DISTRIBUTION WIDTH 14.2 % (10.0-14.5); WHITE BLOOD COUNT 14.7 10^3/uL (4.3-11.0)
[2016-07-26 23:15] LABS: INR 1.1 (0.8-1.4); PROTHROMBIN TIME PATIENT 14.1 SEC (12.2-14.7)
[2016-07-26 23:16] LABS: BAND NEUTROPHILS 4 %; BASOPHILS % (MANUAL) 0 %; EOSINOPHILS % (MANUAL) 1 %; LYMPHOCYTES % (MANUAL) 31 %; NEUTROPHILS % (MANUAL) 59 %
[2016-07-26 23:24] LABS: ALANINE AMINOTRANSFERASE 6 U/L (0-55); ALBUMIN 3.8 G/DL (3.2-4.5); ANION GAP 12 MMOL/L (5-14); ASPARTATE AMINO TRANSFERASE 14 U/L (5-34); BILIRUBIN,TOTAL 0.3 MG/DL (0.1-1.0); BLOOD UREA NITROGEN 16 MG/DL (7-18); BUN/CREATININE RATIO 20; CALCIUM 8.7 MG/DL (8.5-10.1); CARBON DIOXIDE 22 MMOL/L (21-32); CHLORIDE 105 MMOL/L (98-107); CREATININE SERUM 0.82 MG/DL (0.60-1.30); GFR ESTIMATED > 60; GLUCOSE 147 MG/DL (70-105); POTASSIUM 4.1 MMOL/L (3.6-5.0); SODIUM 139 MMOL/L (135-145); TOTAL PROTEIN 6.2 G/DL (6.4-8.2)
[2016-07-26] MEDS ORDERED: fentaNYL INJECTION 100 MCG/2 ML AMP IVP ONE (23:30)
[2016-07-27] VITALS (7 sets, daily range): BP systolic 99–141; BP diastolic 55–72
[2016-07-27] MEDS ORDERED: CATHETER FLUSH 10 ML SYR IV PRN (02:45)
[2016-07-27] MEDS: NS IV 1000 ML 1,000 ML IV SCH ×2 (02:45→16:12)
[2016-07-27] MEDS: CATHETER FLUSH 10 ML SYR IV SCH ×3 (06:07→21:20)
[2016-07-27] MEDS ORDERED: RANI150T11 PO (08:49)
[2016-07-27] MEDS ORDERED: APAP 300 MG/CODEINE 30 MG (TYLENOL #3) TAB PO PRN (10:15)
--- NOTE | 2016-07-27 10:42 | History & Physical-Hospitalist ---
HPI History of Present Illness: HPI/Chief Complaint CC: Blood in stool. HPI: This is a 71 yoWF clinic pt of [facility] that presented to the ER with rectal bleeding. Chart Review: Hgb 10.9 mold finisher: Pt had a scope last week and was found to have diverticulitis. Pt's last stool was rust colored Pt reported feeling clammy last night. Patient Interview: Pt confirms having a colonoscopy last week with Dr. Crouch. Pt had bleeding and constipation prior to the scope. Pt recently had a UTI that she was treated for at [facility]. Pt received some antibiotics and advised to use cold packs for her back. Pt saw Rhiannon Frazieran at [facility] a few days later for constipation. Pt was advised to continue using cold packs and stool softeners to resolve her constipation. Pt was able to finally have a BM at home. Pt noticed bloody stools since that time. Pt reports a loss of 7 lbs after the BM at home. Rhiannon Ortiz arranged for a colonoscopy with Dr. Crouch Pt received report after her colonoscopy that she was negative for CA. Pt came to [facility] ER last night for recurrent bloody stools. Dr. Crouch advised pt to continue blood thinners, Baby aspirin and Plavix, after the colonoscopy. Pt admits to using blood thinners because of a past stroke. 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 Tompkins. Source: patient Exam Limitations: no limitations Date Seen 07/27/16 Attending Physician Vandana Tompkins David F MD Referring Physician Date of Admission July 27, 2016 at 00:55 Home Medications & Allergies Home Medications Reviewed patient Home Medication Reconciliation Form Allergies Allergies Coded Allergies fluticasone (Verified Allergy, Unknown, RASH, 07/20/16) Uncoded Allergies MRI DYE ( Allergy, Severe, ANAPHYLAXIS, 01/22/13) Past Ioodyge-Rrewjh-Ufimxr Hx Patient Social History Marrital Status: single Employed/Student: retired Alcohol Use: Denies Use Recreational Drug Use: No Smoking Status: Current Everyday Smoker Type Used: Cigarettes 2nd Hand Smoke Exposure: No Physical Abuse Screen: No Sexual Abuse: No Recent Foreign Travel: No Contact w/other who traveled: No Recent Hopitalizations: No Recent Infectious Disease Expo: No Immunizations Up To Date Tetanus Booster (TDap): Unknown Date of Pneumonia Vaccine: Jan 21, 2015 Date of Influenza Vaccine: Dec 31, 2014 Seasonal Allergies Seasonal Allergies: No Surgeries HX Surgeries: Yes (CARDIAC CATH; HYST/BSO-2 DIFFERENT SURGERIES; SURGERY FOR PROLAPSED BLADDER) Surgeries: Adenoidectomy, Bladder Surgery, Cardiac, Hysterectomy, Oophorectomy , Tonsillectomy Respiratory Hx Respiratory Disorders: Yes Respiratory Disorders: COPD Cardiovascular Hx Cardiovascular Disorders: Yes Cardiac Disorders: Coronary Artery Disease, High Cholesterol, Hypertension, Peripheral Vascular Neurological Hx Neurological Disorders: Yes (FAMILIAL TREMOR) Neurological Disorders: Stroke Reproductive System Hx Reproductive Disorders: No Sexually Transmitted Disease: No HIV/AIDS: No Female Reproductive Disorders: Denies Genitourinary Hx Genitourinary Disorders: Yes (Incontinence) Genitourinary Disorders: Kidney Stones Gastrointestinal Hx Gastrointestinal Disorders: Yes (black stools) Gastrointestinal Disorders: Chronic Constipation Musculoskeletal Hx Musculoskeletal Disorders: Yes Musculoskeletal Disorders: Arthritis, Back Injury, Chronic Back Pain Endocrine Hx Endocrine Disorders: No HEENT HX ENT Disorders: No Cancer Hx Cancer: No Psychosocial Hx Psychiatric Problems: No Integumentary HX Skin/Integumentary Disorder: No Blood Transfusions Hx Blood Disorders: No Adverse Reaction to a Blood Tr: No Family Medical History Family Hx: Cardiovascular disease 19 FATHER ( at 73 with mi) Completed stroke 19 MOTHER ( at 83 complications of stroke) Review of Systems Constitutional: see HPI, weakness EENTM: no symptoms reported Respiratory: no symptoms reported Cardiovascular: no symptoms reported Gastrointestinal: melena Genitourinary: no symptoms reported Musculoskeletal: no symptoms reported Skin: no symptoms reported Psychiatric/Neurological: No Symptoms Reported All Other Systems Reviewed Negative Unless Noted: Yes Physical Exam Physical Exam Vital Signs Vital Sign - Last 12Hours 07/26/16 07/27/16 22:44 01:55 Temp 93.8 Pulse 95 Resp 24 B/P (MAP) 110/67 Pulse Ox 100 O2 Delivery Room Air O2 Flow Rate 2.00 Capillary Refill : Less Than 3 Seconds General Appearance: No Apparent Distress, WD/WN, Chronically ill Eyes: Bilateral Eye Normal Inspection, Bilateral Eye PERRL HEENT: PERRL/EOMI, Normal ENT Inspection, Pharynx Normal Neck: Full Range of Motion, Normal Inspection, Non Tender, Supple, Carotid Bruit Respiratory: Chest Non Tender, Lungs Clear, Normal Breath Sounds, No Accessory Muscle Use, No Respiratory Distress Cardiovascular: Regular Rate, Rhythm, No Edema, No Gallop, No JVD, No Murmur, Normal Peripheral Pulses Gastrointestinal: Normal Bowel Sounds, No Organomegaly, No Pulsatile Mass, Non Tender, Soft Back: Normal Inspection, No CVA Tenderness, No Vertebral Tenderness Extremity: Normal Capillary Refill, Normal Inspection, Normal Range of Motion, Non Tender, No Calf Tenderness, No Pedal Edema Neurologic/Psychiatric: Alert, Oriented x3, No Motor/Sensory Deficits, Normal Mood/Affect, Other (tremor noted) Skin: Normal Color, Warm/Dry Lymphatic: No Adenopathy Results Results/Procedures Lab Laboratory Tests 07/26/16 22:55 07/27/16 05:00 Assessment/Plan Admission Diagnosis Assessment: Recurrent rectal bleeding with subsequent mild anemia since admission following colonoscopy with diagnosis of colitis by Dr. Crouch last week Familial tremor Hypertension Previous CVA/TIA 5 years ago placed on Plavix and aspirin by Dr. Morin Smoker Assessment and Plan Plan: Temporarily DC blood thinner and obtain Dr Burton consultation for approval to DC completely upon DC Consult Dr. Crouch for further plan regarding BMs and rectal bleeding Restart all home meds except NSAID Clinical Quality Measures DVT/VTE Risk/Contraindication: Risk Factor Score Per Nursin RFS Level Per Nursing on Admit: 4+=Very High VANDANA TOMPKINS DO July 27, 2016 10:42
--- NOTE | 2016-07-27 10:46 | Consultation ---
History of Present Illness History of Present Illness Patient Consulted On(samantha/time) 07/27/16 10:38 Date of Admission History of Present Illness Surgery asked to consult regarding Anemai and GI bleed HPI Pt is known to me, she had a colonoscopy done on 07/20 and actually saw me in the clinic yesterday. Colonoscopy found colitis and bleeding from multiple small vessels in the right side of colon and transverse colon. Pt in office yesterday reported continued bleeding, but it had gotten better...."had really big bloody BM on Monday". Hg done yesterday was 14.6. Then apparently yesterday she had another very large bloody BM and felt dizzy, so she went to ER. In ER she was hypotensive for a very short period, which impoved with fluid bolus. Repeat Hg came back at 13.3, and this am it is 10.9. Pt feels a little weak, denies chest pain. She is just very concerned about the bleeding. Pt had another small bloody BM this am. Pt is on Plavix and ASA for "100% blockage of Carotid in my head". Elected not to stop these yesterday because of risk for stroke "then it would be lights out" and because bleeding seemed to be getting better. She is very scared about the bleeding, but also about possibility of stroke. Pt denies abdominal pain. Allergies and Home Medications Allergies Coded Allergies: fluticasone (Verified Allergy, Unknown, RASH, 07/20/16) Uncoded Allergies: MRI DYE (Allergy, Severe, ANAPHYLAXIS, 01/22/13) Home Medications Acetaminophen/Codeine 1 Tab Tablet, 0.5-1 TAB PO QID PRN for PAIN-MODERATE, ( Reported) TAKES 1/2-1 TABLET Aspirin 81 Mg Tablet.dr, 81 MG PO HS, (Reported) Atenolol 25 Mg Tablet, 25 MG PO HS, (Reported) Clopidogrel Bisulfate 75 Mg Tablet, 75 MG PO HS, (Reported) Lisinopril 10 Mg Tablet, 10 MG PO HS, (Reported) Meloxicam 15 Mg Tablet, 15 MG PO HS, (Reported) Primidone 50 Mg Tablet, 200 MG PO HS, (Reported) TAKES 4 (50MG) TABLETS Ranitidine HCl 150 Mg Tablet, 150 MG PO HS, (Reported) Simvastatin 40 Mg Tablet, 40 MG PO HS, (Reported) Past Ojvlyyb-Zfqxjx-Fvkxpn Hx Patient Social History Alcohol Use: Denies Use Recreational Drug Use: No Smoking Status: Current Everyday Smoker Type Used: Cigarettes 2nd Hand Smoke Exposure: No Recent Foreign Travel: No Contact w/Someone Who Travel: No Recent Infectious Disease Expo: No Recent Hopitalizations: No Physical Abuse Screen: No Sexual Abuse: No Immunizations Up To Date Tetanus Booster (TDap): Unknown Date of Pneumonia Vaccine: Jan 21, 2015 Date of Influenza Vaccine: Dec 31, 2014 Seasonal Allergies Seasonal Allergies: No Surgeries HX Surgeries: Yes (CARDIAC CATH; HYST/BSO-2 DIFFERENT SURGERIES; SURGERY FOR PROLAPSED BLADDER) Surgeries: Adenoidectomy, Bladder Surgery, Cardiac, Hysterectomy, Oophorectomy , Tonsillectomy Respiratory Hx Respiratory Disorders: Yes Respiratory Disorders: COPD Cardiovascular Hx Cardiac Disorders: Yes Cardiac Disorders: Coronary Artery Disease, High Cholesterol, Hypertension, Peripheral Vascular Neurological Hx Neurological Disorders: Yes (FAMILIAL TREMOR) Neurological Disorders: Stroke Reproductive System Hx Reproductive Disorders: No Sexually Transmitted Disease: No HIV/AIDS: No Female Reproductive Disorders: Denies 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 Genitourinary Hx Genitourinary Disorders: Yes (Incontinence) Genitourinary Disorders: Kidney Stones Gastrointestinal Hx Gastrointestinal Disorders: Yes (black stools) Gastrointestinal Disorders: Chronic Constipation Musculoskeletal Hx Musculoskeletal Disorders: Yes Musculoskeletal Disorders: Arthritis, Back Injury, Chronic Back Pain Endocrine Hx Endocrine Disorders: No HEENT HX ENT Disorders: No Cancer Hx Cancer: No Psychosocial Hx Psychiatric Problems: No Integumentary HX Skin/Integumentary Disorder: No Blood Transfusions Hx Blood Disorders: No Adverse Reaction to a Blood Tr: No Family Medical History Significant Family History: CAD Over 55 Years Old Family Medial History: Cardiovascular disease 19 FATHER ( at 73 with mi) Completed stroke 19 MOTHER ( at 83 complications of stroke) Review of Systems-General Constitutional: No chills, No diaphoresis, dizziness, weakness EENTM: hearing loss, vision loss (chronic, pt wears glasses), No throat pain, No throat swelling Respiratory: No cough, No dyspnea on exertion Cardiovascular: No chest pain, No palpitations Gastrointestinal: No abdominal pain, other (hematochezia) Musculoskeletal: joint pain, muscle stiffness Skin: No change in color, No change in hair/nails Psychiatric/Neurological: Anxiety, Denies Depressed, Denies Seizure, Tremors Physical Exam-General Problems Physical Exam Vital Signs Vital Sign - Last 12Hours 07/26/16 07/27/16 22:44 01:55 Temp 93.8 Pulse 95 Resp 24 B/P (MAP) 110/67 Pulse Ox 100 O2 Delivery Room Air O2 Flow Rate 2.00 Capillary Refill : Less Than 3 Seconds General Appearance: WD/WN, mild distress (secondary to anxiety about bleeding) Eyes: Bilateral Eye EOMI, Bilateral Eye PERRL HEENT: pharynx normal, No scleral icterus (R), No scleral icterus (L) Neck: non-tender, supple, normal inspection, No thyromegaly Respiratory: lungs clear, normal breath sounds, no respiratory distress, no accessory muscle use Cardiovascular: regular rate, rhythm, no edema, no murmur Peripheral Pulses: 4+ Carotid (R), 4+ Carotid (L), 4+ Radial Pulses (R), 4+ Radial Pulses (L) Gastrointestinal: normal bowel sounds, non tender, soft, no organomegaly, no pulsatile mass Genital/Rectal: normal rectal tone, other (gross blood in stool) Back: no CVA tenderness, no vertebral tenderness Extremities: no pedal edema, no calf tenderness Neurologic/Psychiatric: first dyer II-XII nml as tested, no motor/sensory deficits, alert, normal mood/affect, oriented x 3 Skin: normal color, warm/dry Lymphatic: no adenopathy (neck, axilla or groin) Data Review Labs Laboratory Tests 07/26/16 22:55: White Blood Count 14.7H, Red Blood Count 4.00L, Hemoglobin 13.3, Hematocrit 40, Mean Corpuscular Volume 99, Mean Corpuscular Hemoglobin 33, Mean Corpuscular Hemoglobin Concent 34, Red Cell Distribution Width 14.2, Platelet Count 261, Mean Platelet Volume 10.2, Neutrophils (%) (Auto) 71, Lymphocytes (%) (Auto) 21 , Monocytes (%) (Auto) 7, Eosinophils (%) (Auto) 1, Basophils (%) (Auto) 1, Neutrophils # (Auto) 10.5H, Lymphocytes # (Auto) 3.0, Monocytes # (Auto) 1.0, Eosinophils # (Auto) 0.2, Basophils # (Auto) 0.1, Neutrophils % (Manual) 59, Lymphocytes % (Manual) 31, Monocytes % (Manual) 5, Eosinophils % (Manual) 1, Basophils % (Manual) 0, Band Neutrophils 4, Blood Morphology Comment NORMAL, Prothrombin Time 14.1, INR Comment 1.1, Activated Partial Thromboplast Time 24, Sodium Level 139, Potassium Level 4.1, Chloride Level 105, Carbon Dioxide Level 22, Anion Gap 12, Blood Urea Nitrogen 16, Creatinine 0.82, Estimat Glomerular Filtration Rate > 60, BUN/Creatinine Ratio 20, Glucose Level 147H, Calcium Level 8.7, Total Bilirubin 0.3, Aspartate Amino Transf (AST/SGOT) 14, Alanine Aminotransferase (ALT/SGPT) 6, Alkaline Phosphatase 67, Total Protein 6.2L, Albumin 3.8 07/27/16 05:00: Hemoglobin 10.9L, Hematocrit 33L Assessment/Plan Assessment/Plan Assessment/Plan 1. Anemia secondary to blood loss 2. GI Bleed 3. Atherosclerotic CardioVascular disease 4. Hyperlipidemia 5. Hypertension 6. Hx of Stroke Unfortunately pt is stuck between the choice of rectal bleeding and possibly having a stroke. The plavix and ASA are contributing to her bleeding and anemia , but if they are stopped she is at risk of having a stroke. The only other option would be colon resection; but this is very invasive and should be saved for last resort. In addition, she would probably need to stop the Plavix and ASA for the resection anyway. I sat and talked to pt for over 45 minutes regarding her options, possibility of stroke etc. At this point she has agreed that she wants to stop her blood thinners and hope that this stops the bleeding. She can most likely go home today on a diet of increased fluids, increased protein and probably should take iron supplementation. No blood thinner she can be put on will target only the blockage in her head; all will continue the problem of her bleeding. I will see pt in my office in one week, sooner if she needs to come in and see me. All questions answered to her satisfaction. I would not transfuse her unless Hg dropped below 8 and even then could hold if she has no cardiac symptoms. Clinical Quality Measures DVT/VTE Risk/Contraindication: Risk Factor Score Per Nursin RFS Level Per Nursing on Admit: 4+=Very High KENYETTA REA DO July 27, 2016 10:46
--- NOTE | 2016-07-27 12:16 | Consultation-Cardiology ---
HPI-Cardiology Cardiology Consultation: Date of Consultation 07/27/16 Date of Admission 07-26-16 Attending Physician Vandana Hall DO Admitting Physician Amarjit Beckett MD Consulting Physician Dontae Burton MD HPI: Chief Complaint: GI bleed Ms. Quiros is a 71year old female admitted to 424 from the ED d/t GI bleed. She reports she has been having bright red blood in her stools at home along with constipation. She was seen by Dr. Crouch and underwent colonoscopy. She reports she had f/u with him yesterday and was told she had colitis with ulcerations and diverticulitis. She reports the biopsy for cancer was negative. She states she then went home and had another stool with bright red blood. She also reports dizziness and lightheadedness at the time. No syncope or near syncope. She then came to the ED. She reports lower mid-abdominal pain with radiation across the right side to her back, which has been present for several weeks. No c/o CP, dyspnea, palpitations or LE edema. Her daughter and a friend are at the bedside. Review of Systems-Cardiology Review of Systems Constitutional: As described under HPI Eyes: No blurred vision, No drainage, No pain, No vision change Ears/Nose/Throat: No ear discharge, No ear pain, No nasal drainage, No ulcerations Respiratory: As described under HPI Cardiovascular: As described under HPI Gastrointestinal: constipation, No diarrhea, No nausea, No vomiting, stool coloration changes (bloody stools) Genitourinary: No dysuria, No discharge, No frequency, No hematuria, No urgency Skin: No rash, No skin related problems, No ulcerations Psychiatric/Neurological: No anxiety, No depression, No focal weakness, No seizure, No syncope Hematologic: No bleeding abnormalities All Other Systems Reviewed Negative Unless Noted: Yes SHT-Fkgtdi-Fjvjyc Hx Patient Social History Marrital Status: single Employed/Student: retired Alcohol Use: Denies Use Recreational Drug Use: No Smoking Status: Current Everyday Smoker Type Used: Cigarettes 2nd Hand Smoke Exposure: No Recent Foreign Travel: No Recent Infectious Disease Expo: No Physical Abuse Screen: No Sexual Abuse: No Immunizations Up To Date Tetanus Booster (TDap): Unknown Date of Pneumonia Vaccine: Jan 21, 2015 Date of Influenza Vaccine: Dec 31, 2014 Past Medical History PMH As described under Assessment. Family Medical History Family Medical History: She reports her father had CAD and her mother had a CVA. Family History: 19 FATHER Cardiovascular disease ( at 73 with mi) 19 MOTHER Completed stroke ( at 83 complications of stroke) Allergies and Home Medications Allergies Coded Allergies: fluticasone (Verified Allergy, Unknown, RASH, 07/20/16) Uncoded Allergies: MRI DYE (Allergy, Severe, ANAPHYLAXIS, 01/22/13) Home Medications Acetaminophen/Codeine 1 Tab Tablet, 0.5-1 TAB PO QID PRN for PAIN-MODERATE, ( Reported) TAKES 1/2-1 TABLET Aspirin 81 Mg Tablet.dr, 81 MG PO HS, (Reported) Atenolol 25 Mg Tablet, 25 MG PO HS, (Reported) Clopidogrel Bisulfate 75 Mg Tablet, 75 MG PO HS, (Reported) Lisinopril 10 Mg Tablet, 10 MG PO HS, (Reported) Meloxicam 15 Mg Tablet, 15 MG PO HS, (Reported) Primidone 50 Mg Tablet, 200 MG PO HS, (Reported) TAKES 4 (50MG) TABLETS Ranitidine HCl 150 Mg Tablet, 150 MG PO HS, (Reported) Simvastatin 40 Mg Tablet, 40 MG PO HS, (Reported) Physical Exam-Cardiology Physical Exam Vital Signs/I&O Vital Sign - Last 12Hours 07/27/16 07/27/16 07/27/16 07/27/16 04:30 05:55 08:30 09:00 Temp 98.3 98.3 Pulse 93 90 80 Resp 20 16 B/P (MAP) 99/55 101/65 112/71 Pulse Ox 95 95 95 O2 Delivery Room Air Room Air 07/27/16 12:02 Temp 98.3 Pulse 83 Resp 20 B/P (MAP) 116/72 Pulse Ox 96 O2 Delivery Room Air Intake and Output 07/26/16 23:59 Intake Total 1000 ml Balance 1000 ml Capillary Refill : Less Than 3 Seconds Constitutional: appears stated age, No apparent distress, well-developed, well- nourished HEENT: PERRL, No discharge, hearing is well preserved, oral hygience is good, No ulceration, No xanthelasmas are seen Neck: No carotid bruit Respiratory: No accessory muscle use, No respiratory distress, chest expansion is symmetric, chest is bilaterally symmetric, lungs clear to auscultation, other (prolonged expiratory phase) Cardiovascular: regular rate-rhythm, S1 and S2 Gastrointestinal: tender (Mid-abdomen radiating across the RUQ to the back), soft, round, No spleenomegaly Rectal: deferred, other (has BRB on night gown from rectal bleeding) Genital/Rectal: normal rectal tone, other (gross blood in stool) Extremities: No clubbing, No cyanosis, No significant edema Neurologic/Psychiatric: alert, oriented x 3, power is 5/5 both on sides Skin: No rash, No ulcerations Lymphatic: no adenopathy (neck, axilla or groin) Data Review Labs Laboratory Tests 07/26/16 22:55: White Blood Count 14.7H, Red Blood Count 4.00L, Hemoglobin 13.3, Hematocrit 40, Mean Corpuscular Volume 99, Mean Corpuscular Hemoglobin 33, Mean Corpuscular Hemoglobin Concent 34, Red Cell Distribution Width 14.2, Platelet Count 261, Mean Platelet Volume 10.2, Neutrophils (%) (Auto) 71, Lymphocytes (%) (Auto) 21 , Monocytes (%) (Auto) 7, Eosinophils (%) (Auto) 1, Basophils (%) (Auto) 1, Neutrophils # (Auto) 10.5H, Lymphocytes # (Auto) 3.0, Monocytes # (Auto) 1.0, Eosinophils # (Auto) 0.2, Basophils # (Auto) 0.1, Neutrophils % (Manual) 59, Lymphocytes % (Manual) 31, Monocytes % (Manual) 5, Eosinophils % (Manual) 1, Basophils % (Manual) 0, Band Neutrophils 4, Blood Morphology Comment NORMAL, Prothrombin Time 14.1, INR Comment 1.1, Activated Partial Thromboplast Time 24, Sodium Level 139, Potassium Level 4.1, Chloride Level 105, Carbon Dioxide Level 22, Anion Gap 12, Blood Urea Nitrogen 16, Creatinine 0.82, Estimat Glomerular Filtration Rate > 60, BUN/Creatinine Ratio 20, Glucose Level 147H, Calcium Level 8.7, Total Bilirubin 0.3, Aspartate Amino Transf (AST/SGOT) 14, Alanine Aminotransferase (ALT/SGPT) 6, Alkaline Phosphatase 67, Total Protein 6.2L, Albumin 3.8 07/27/16 05:00: Hemoglobin 10.9L, Hematocrit 33L ECG Impression ECG Comment SR with RBBB - unchanged A/P-Cardiology Assessment/Admission Diagnosis GI bleed - being managed by medical and surgical services Anemia d/t GI bleed as noted above Colonoscopy on 07-20-[address] Crouch showed ulcerations, colitis and internal hemorrhoids (per pt report) Cardiac cath on 07-29-2014 which showed mild CAD, LVEF 60%, elevated LVEDP, indicating some degree of diastolic dysfunction of the LV likely r/t hypertensive cardiovascular disease. No significant MR H/O successful u/s guided thrombin injection of 2.6 cm right groin pseudoaneurysm following cardiac cath on 07-29-2014 on 07-31-[address] 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 She underwent colonoscopy on 07-20-[address] Crouch d /t GI bleed. At that time she was found to have internal hemorrhoids, ulcerations and colitis. Plavix and ASA were continued post procedure. She presented to the ED with anemia d/t continuing lower GI bleed. She does have a known h/o carotid arterial disease and previous h/o non-hemorrhagia CVA as noted above and therefore has been on Plavix. She also has a h/o CAD seen at the time of cardiac cath in 2014 for which she has been on ASA tx. In light of active GI bleed with anemia it is reasonable to stopping antiplatelet tx in the short term. However doing so increases her risk of CVA. We have discussed with her the pros and cons of withholding anti-platelet tx. She verbalizes understanding and is agreeable to treatment plan. We do advise either ASA or Plavix be resumed ROSAS d/t her risk of stroke. Further recommendations will be based on her hospital course. We would like to thank Dr. Hall for this consult. This consult is being scribed by Araceli Mattson APRN on behalf of Dr. Burton after discussion regarding plan of care. Clinical Quality Measures DVT/VTE Risk/Contraindication: Risk Factor Score Per Nursin RFS Level Per Nursing on Admit: 4+=Very High Physician Assessment Physician Assessment Lungs: clear Cor: reg A&R * As documented in our note above * Management relatively complex * Reasonable to hold off on DAPT for a few days, given active bleeding. Place one antiplatelet agent after that. Doesn't need both. Close outpatient f/u advised * I spoke with her in detail and answered all of her questions in detail SHERWIN MATTSON TRAFFIC CHIEF July 27, 2016 12:16 DONTAE BURTON MD FACP FAC CCDS July 27, 2016 14:22
[2016-07-27] MEDS ORDERED: SIMvastatin 40 MG (ZOCOR) TAB PO SCH (21:00)
[2016-07-27] MEDS ORDERED: FAMOTIDINE 20 MG (PEPCID) TABLET PO SCH (21:00)
[2016-07-27] MEDS ORDERED: PRIMIDONE 50 MG TAB (MYSOLINE) PO SCH (21:00)
[2016-07-27] MEDS ORDERED: lisINopril 10 MG (PRINIVIL) TAB PO SCH (21:00)
[2016-07-27] MEDS ORDERED: ATENOLOL 25 MG (TENORMIN) TAB PO SCH (21:00)
[2016-07-28] VITALS: BP 96/61
[2016-07-28 04:00] VITALS: BP 97/60
[2016-07-28 05:52] LABS: BASOPHILS # (AUTO) 0.1 10^3/uL (0.0-0.1); BASOPHILS % (AUTO) 1 % (0-10); EOSINOPHILS # (AUTO) 0.3 10^3/uL (0.0-0.3); EOSINOPHILS % (AUTO) 4 % (0-10); LYMPHOCYTES # (AUTO) 3.1 X 10^3 (1.0-4.0); LYMPHOCYTES % (AUTO) 34 % (12-44); MEAN CORPUSCULAR HEMOGLOBIN 33 PG (25-34); MEAN CORPUSCULAR HGB CONC 33 G/DL (32-36); MEAN CORPUSCULAR VOLUME 101 FL (80-99); MEAN PLATELET VOLUME 10.7 FL (7.4-10.4); MONOCYTES # (AUTO) 0.8 X 10^3 (0.0-1.0); MONOCYTES % (AUTO) 9 % (0-12); NEUTROPHILS # (AUTO) 4.9 X 10^3 (1.8-7.8); NEUTROPHILS % (AUTO) 53 % (42-75); PLATELET COUNT 201 10^3/uL (130-400); RED BLOOD COUNT 3.09 10^6/uL (4.35-5.85); RED CELL DISTRIBUTION WIDTH 14.3 % (10.0-14.5); WHITE BLOOD COUNT 9.2 10^3/uL (4.3-11.0)
[2016-07-28 06:16] LABS: ALANINE AMINOTRANSFERASE < 6 U/L (0-55); ALBUMIN 3.2 G/DL (3.2-4.5); ANION GAP 8 MMOL/L (5-14); ASPARTATE AMINO TRANSFERASE 12 U/L (5-34); BILIRUBIN,TOTAL 0.2 MG/DL (0.1-1.0); BLOOD UREA NITROGEN 8 MG/DL (7-18); BUN/CREATININE RATIO 12; CALCIUM 8.3 MG/DL (8.5-10.1); CARBON DIOXIDE 23 MMOL/L (21-32); CHLORIDE 112 MMOL/L (98-107); CREATININE SERUM 0.69 MG/DL (0.60-1.30); GFR ESTIMATED > 60; GLUCOSE 89 MG/DL (70-105); POTASSIUM 3.9 MMOL/L (3.6-5.0); SODIUM 143 MMOL/L (135-145); TOTAL PROTEIN 5.1 G/DL (6.4-8.2)
[2016-07-28] MEDS: CATHETER FLUSH 10 ML SYR IV SCH (06:18)
[2016-07-28 08:40] VITALS: BP 93/56
--- NOTE | 2016-07-28 08:42 | Progress Note-Cardiology ---
Cardiology SOAP Progress Note Subjective: Reports continued blood in her stool, but feels it is getting better. C/O some lightheadedness when getting up. No c/o CP, SOB, palpitations, syncope or near syncope. Continue to c/o RUQ discomfort radiating to her back. Objective: I&O/Vital Signs Vital Sign - Last 12Hours 07/28/16 07/28/16 07/28/16 00:00 04:00 08:40 Temp 97.6 97.5 97.6 Pulse 71 68 70 Resp 20 16 20 B/P (MAP) 96/61 97/60 93/56 Pulse Ox 94 96 95 O2 Delivery Room Air Room Air Room Air Intake and Output 07/28/16 00:00 Intake Total 3470 ml Output Total 2700 ml Balance 770 ml Weight (Pounds): 140 Weight (Ounces): 0.0 Weight (Calculated Kilograms): [id number] Constitutional: appears stated age, No apparent distress, well-developed, well- nourished Respiratory: No accessory muscle use, No respiratory distress, chest expansion is symmetric, chest is bilaterally symmetric, lungs clear to auscultation, other (prolonged expiratory phase) Cardiovascular: regular rate-rhythm, S1 and S2 Gastrointestional: tender (Mid-abdomen radiating across the RUQ to the back), soft, round, No spleenomegaly Genital/Rectal: normal rectal tone, other (gross blood in stool) Extremities: No clubbing, No cyanosis, No significant edema Neurologic/Psychiatric: alert, oriented x 3, power is 5/5 both on sides Skin: No rash, No ulcerations Results/Procedures: Labs Laboratory Tests 07/28/16 05:20: White Blood Count 9.2, Red Blood Count 3.09L, Hemoglobin 10.1L, Hematocrit 31L, Mean Corpuscular Volume 101H, Mean Corpuscular Hemoglobin 33, Mean Corpuscular Hemoglobin Concent 33, Red Cell Distribution Width 14.3, Platelet Count 201, Mean Platelet Volume 10.7H, Neutrophils (%) (Auto) 53, Lymphocytes (%) (Auto) 34 , Monocytes (%) (Auto) 9, Eosinophils (%) (Auto) 4, Basophils (%) (Auto) 1, Neutrophils # (Auto) 4.9, Lymphocytes # (Auto) 3.1, Monocytes # (Auto) 0.8, Eosinophils # (Auto) 0.3, Basophils # (Auto) 0.1, Sodium Level 143, Potassium Level 3.9, Chloride Level 112H, Carbon Dioxide Level 23, Anion Gap 8, Blood Urea Nitrogen 8, Creatinine 0.69, Estimat Glomerular Filtration Rate > 60, BUN/ Creatinine Ratio 12, Glucose Level 89, Calcium Level 8.3L, Total Bilirubin 0.2, Aspartate Amino Transf (AST/SGOT) 12, Alanine Aminotransferase (ALT/SGPT) < 6, Alkaline Phosphatase 52, Total Protein 5.1L, Albumin 3.2 A/P: Assessment: GI bleed - being managed by medical and surgical services Anemia d/t GI bleed as noted above Colonoscopy on 07-20-[address] Crouch showed ulcerations, colitis and internal hemorrhoids (per pt report) Cardiac cath on 07-29-2014 which showed mild CAD, LVEF 60%, elevated LVEDP, indicating some degree of diastolic dysfunction of the LV likely r/t hypertensive cardiovascular disease. No significant MR H/O successful u/s guided thrombin injection of 2.6 cm right groin pseudoaneurysm following cardiac cath on 07-29-2014 on 07-31-[address] 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 GI bleed - management per Dr. Crouch and medical services She does have a known h/o carotid arterial disease and previous h/o non- hemorrhagia CVA as noted above and therefore has been on Plavix. She also has a h/o CAD seen at the time of cardiac cath in 2014 for which she has been on ASA tx. In light of active GI bleed with anemia it is reasonable to stopping antiplatelet tx in the short term. However doing so increases her risk of CVA. We have discussed with her the pros and cons of withholding anti-platelet tx. She verbalizes understanding and is agreeable to treatment plan. We do advise either ASA or Plavix be resumed ROSAS d/t her risk of stroke; however both agents do not need to be resumed Physician Assessment Physician Assessment Lungs: good bilat air entry Cor: reg A&R * As documented in our note above * I again reviewed with her current issues and recs regarding antiplatelet therapy. I answered her questions and have advised close outpatient f/u for now SHERWIN UNDERWOOD FI[employer] SAFETY INSPECTOR July 28, 2016 08:42 KIRBY ALVA MD FACP FAC CCDS July 28, 2016 10:23
--- NOTE | 2016-07-28 11:34 | Discharge Summary-Hospitalist ---
Diagnosis/Chief Complaint Date of Admission July 27, 2016 at 02:00 Date of Discharge Discharge Date: July 28, 2016 Admission Diagnosis Assessment: Recurrent rectal bleeding with subsequent mild anemia since admission following colonoscopy with diagnosis of colitis by Dr. Crouch last week Familial tremor Hypertension Previous CVA/TIA 5 years ago placed on Plavix and aspirin by Dr. Morin Smoker Discharge Diagnosis Assessment: Recurrent rectal bleeding with subsequent mild anemia since admission following colonoscopy with diagnosis of colitis by Dr. Crouch last week Familial tremor Hypertension Previous CVA/TIA 5 years ago placed on Plavix and aspirin by Dr. Morin Smoker Plan: Temporarily DC blood thinner and obtain Dr Burton consultation for approval to DC completely upon DC Consult Dr. Crouch for further plan regarding BMs and rectal bleeding Restart all home meds except NSAID Reason Hospital Visit/Course CC: Blood in stool. HPI: This is a 71 yoWF clinic pt of [facility] that presented to the ER with rectal bleeding. Chart Review: Hgb 10.9 rehabilitation consultant: Pt had a scope last week and was found to have diverticulitis. Pt's last stool was rust colored Pt reported feeling clammy last night. Patient Interview: Pt confirms having a colonoscopy last week with Dr. Crouch. Pt had bleeding and constipation prior to the scope. Pt recently had a UTI that she was treated for at [facility]. Pt received some antibiotics and advised to use cold packs for her back. Pt saw Rhiannon Ortiz at [facility] a few days later for constipation. Pt was advised to continue using cold packs and stool softeners to resolve her constipation. Pt was able to finally have a BM at home. Pt noticed bloody stools since that time. Pt reports a loss of 7 lbs after the BM at home. Rhiannon Ortiz arranged for a colonoscopy with Dr. Crouch Pt received report after her colonoscopy that she was negative for CA. Pt came to [facility] ER last night for recurrent bloody stools. Dr. Crouch advised pt to continue blood thinners, Baby aspirin and Plavix, after the colonoscopy. Pt admits to using blood thinners because of a past stroke. 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 Burton as her tight cooper Pt admits to feeling clammy last night Scribed by Jessica Mccallum under the direct supervision of Dr. Tompkins. Notes from 07/28/16 Chart Review: Conferred with Dr. Crouch and he was ok with DC Hgb 10.1 Patient Interview: Pt saw Dr. Azevedo's nurse practitioner who discussed Hgb and lab results with pt Pt believes that she needs to eat iron rich foods at home upon DC. Dr. Tompkins informed pt that her labs do not look bad enough to drastically change her diet to include these foods. Physical exam stable. Pt states that the bleeding has reduced. Pt was informed that she will not be on blood thinners and Meloxicam until further notice Pt's daughter will pick up man pt upon DC no fever, vital signs stable, pleasant, improved Regular rate and rhythm, clear ulceration bilaterally Nontender abdomen Plan: Follow up with Rhiannon Ortiz at [facility] Follow up with Dr. Miko FORD Plavix and aspirin until further notice Scribed by Jessica Mccallum under the direct supervision of Dr. Tompkins. Discharge Summary Discharge Physical Examination Allergies: Coded Allergies: fluticasone (Verified Allergy, Unknown, RASH, 07/20/16) Uncoded Allergies: MRI DYE (Allergy, Severe, ANAPHYLAXIS, 01/22/13) Vitals & I&Os Vital Signs Date Time Temp Pulse Resp B/P (MAP) Pulse Ox O2 Delivery O2 Flow Rate FiO2 07/28/16 08:40 97.6 70 20 93/56 95 Room Air 07/27/16 01:55 2.00 Hospital Course Labs (last 24 hrs) Laboratory Tests 07/28/16 05:20: White Blood Count 9.2, Red Blood Count 3.09L, Hemoglobin 10.1L, Hematocrit 31L, Mean Corpuscular Volume 101H, Mean Corpuscular Hemoglobin 33, Mean Corpuscular Hemoglobin Concent 33, Red Cell Distribution Width 14.3, Platelet Count 201, Mean Platelet Volume 10.7H, Neutrophils (%) (Auto) 53, Lymphocytes (%) (Auto) 34 , Monocytes (%) (Auto) 9, Eosinophils (%) (Auto) 4, Basophils (%) (Auto) 1, Neutrophils # (Auto) 4.9, Lymphocytes # (Auto) 3.1, Monocytes # (Auto) 0.8, Eosinophils # (Auto) 0.3, Basophils # (Auto) 0.1, Sodium Level 143, Potassium Level 3.9, Chloride Level 112H, Carbon Dioxide Level 23, Anion Gap 8, Blood Urea Nitrogen 8, Creatinine 0.69, Estimat Glomerular Filtration Rate > 60, BUN/ Creatinine Ratio 12, Glucose Level 89, Calcium Level 8.3L, Total Bilirubin 0.2, Aspartate Amino Transf (AST/SGOT) 12, Alanine Aminotransferase (ALT/SGPT) < 6, Alkaline Phosphatase 52, Total Protein 5.1L, Albumin 3.2 Pending Labs Laboratory Tests 07/28/16 05:20: White Blood Count 9.2, Red Blood Count 3.09, Hemoglobin 10.1, Hematocrit 31, Mean Corpuscular Volume 101, Mean Corpuscular Hemoglobin 33, Mean Corpuscular Hemoglobin Concent 33, Red Cell Distribution Width 14.3, Platelet Count 201, Mean Platelet Volume 10.7, Neutrophils (%) (Auto) 53, Lymphocytes (%) (Auto) 34 , Monocytes (%) (Auto) 9, Eosinophils (%) (Auto) 4, Basophils (%) (Auto) 1, Neutrophils # (Auto) 4.9, Lymphocytes # (Auto) 3.1, Monocytes # (Auto) 0.8, Eosinophils # (Auto) 0.3, Basophils # (Auto) 0.1, Sodium Level 143, Potassium Level 3.9, Chloride Level 112, Carbon Dioxide Level 23, Anion Gap 8, Blood Urea Nitrogen 8, Creatinine 0.69, Estimat Glomerular Filtration Rate > 60, BUN/ Creatinine Ratio 12, Glucose Level 89, Calcium Level 8.3, Total Bilirubin 0.2, Aspartate Amino Transf (AST/SGOT) 12, Alanine Aminotransferase (ALT/SGPT) < 6, Alkaline Phosphatase 52, Total Protein 5.1, Albumin 3.2 Discharge Home Medications: Active Scripts Active Reported Ranitidine HCl 150 Mg Tablet 150 Mg PO HS Aspirin Ec Low Dose (Aspirin) 81 Mg Tablet.dr 81 Mg PO HS Lisinopril 10 Mg Tablet 10 Mg PO HS Primidone 50 Mg Tablet 200 Mg PO HS TAKES 4 (50MG) TABLETS Tenormin 25 Mg (Atenolol) 25 Mg Tablet 25 Mg PO HS Meloxicam 15 Mg Tablet 15 Mg PO HS Tylenol W/Codeine #3 Tablet (Acetaminophen/Codeine) 1 Tab Tablet 0.5-1 Tab PO QID PRN TAKES 1/2-1 TABLET Plavix 75 Mg (Clopidogrel Bisulfate) 75 Mg Tablet 75 Mg PO HS Simvastatin 40 Mg Tablet 40 Mg PO HS Instructions to patient/family Please see electonic discharge instructions given to patient. Clinical Quality Measures DVT/VTE Risk/Contraindication: Risk Factor Score Per Nursin RFS Level Per Nursing on Admit: 4+=Very High JAMEEL TOMPKINS DO July 28, 2016 11:34
[2016-07-28 12:30] VITALS: BP 93/56
== END 2016-07-28 10:48 | disposition home or self-care (01) ==
LOC: EDUNIT# 22:42 → ER 22:43 → UNDOADMOB 07-27 00:55 → 4TH 07-27 00:55 → UNDOADMOB 07-27 02:00 → 4TH 07-27 23:55 → UNDODISOB 07-28 10:48
PROVIDERS: ADMIT Internal Medicine; ATTEND Internal Medicine
DX: K92.1 Melena (principal); D50.0 Iron deficiency anemia secondary to blood loss (chronic); G25.0 Essential tremor; I10 Essential (primary) hypertension; Z86.73 Personal history of transient ischemic attack (TIA), and cerebral infarction without residual deficits; J44.9 Chronic obstructive pulmonary disease, unspecified; I25.10 Atherosclerotic heart disease of native coronary artery without angina pectoris; F17.210 Nicotine dependence, cigarettes, uncomplicated; E78.5 Hyperlipidemia, unspecified; I45.10 Unspecified right bundle-branch block; M81.0 Age-related osteoporosis without current pathological fracture; K21.9 Gastro-esophageal reflux disease without esophagitis
CPT/HCPCS: 36415; 80053; 85007; 85014; 85018; 85025; 85027; 85610; 85730; 86850; 86900; 86901; 86920; 93005; 96361; 96374; G0378

== ENCOUNTER → 2016-07-26 | Outpatient (CLI) | payer MEDICARE ==
[~2016-07-26] MED LIST changes: +RANI150T11 PO
== END ==
LOC: LAB 12:08
PROVIDERS: ATTEND Surgery
DX: K62.5 Hemorrhage of anus and rectum (principal)
CPT/HCPCS: 36415; 85014; 85018

== ENCOUNTER → 2016-08-31 | Outpatient (CLI) | payer MEDICARE ==
[~2016-08-31] MED LIST changes: +RANI150T11 PO
--- NOTE | 2016-08-31 10:02 | Diagnostic Imaging Report ---
INDICATION: Right calf pain. TECHNIQUE: The right leg venous Doppler study was performed in the routine fashion with color flow Doppler and waveform analysis. FINDINGS: The right common femoral vein, SFV, and profunda femoris vein as well as popliteal vein are patent. The greater saphenous vein in its visualized portion is patent. In the calf region, there appears to be thrombus in an intramuscular branch of the posterior tibial vein over about a 5 cm length. The main trunk of the posterior tibial vein is patent. 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 The remaining structures are patent. Dictated by: Dictated on workstation # [id number]
--- NOTE | 2016-08-31 10:11 | Diagnostic Imaging Report ---
INDICATION: Right calf pain. TECHNIQUE: Routine sonographic evaluation including Duplex Doppler imaging was performed of the right lower extremity arterial system. The right lower extremity arterial system is patent to the level of the ankles. There is, however, slightly dampened biphasic flow noted throughout. There are diffusely increased velocities present. There is more focal increased velocity in the right common femoral artery at 312 cm/s. This decreases to approximately 125 cm/s in the proximal to mid aspect and is 88 cm/s distally. Otherwise, there are no significant velocity changes to suggest a focal area of stenosis. IMPRESSION: Diffusely dampened biphasic waveforms are noted throughout the patent right lower extremity arterial system. There is a more focal velocity increase in the right common femoral artery which could reflect a more proximal area of narrowing. Dictated by: Dictated on workstation # [id number]
== END ==
LOC: RAD 08:58
PROVIDERS: ATTEND Nurse Practitioner Family
DX: M79.604 Pain in right leg (principal); R22.41 Localized swelling, mass and lump, right lower limb; I82.441 Acute embolism and thrombosis of right tibial vein
CPT/HCPCS: 93926

== ENCOUNTER → 2016-10-10 | Outpatient (CLI) | payer MEDICARE ==
[2016-10-10 09:26] LABS: BASOPHILS # (AUTO) 0.1 10^3/uL (0.0-0.1); BASOPHILS % (AUTO) 1 % (0-10); EOSINOPHILS # (AUTO) 0.2 10^3/uL (0.0-0.3); EOSINOPHILS % (AUTO) 2 % (0-10); LYMPHOCYTES # (AUTO) 1.8 X 10^3 (1.0-4.0); LYMPHOCYTES % (AUTO) 16 % (12-44); MEAN CORPUSCULAR HEMOGLOBIN 26 PG (25-34); MEAN CORPUSCULAR HGB CONC 30 G/DL (32-36); MEAN CORPUSCULAR VOLUME 84 FL (80-99); MEAN PLATELET VOLUME 10.2 FL (7.4-10.4); MONOCYTES # (AUTO) 0.7 X 10^3 (0.0-1.0); MONOCYTES % (AUTO) 6 % (0-12); NEUTROPHILS # (AUTO) 8.7 X 10^3 (1.8-7.8); NEUTROPHILS % (AUTO) 76 % (42-75); PLATELET COUNT 298 10^3/uL (130-400); RED CELL DISTRIBUTION WIDTH 18.4 % (10.0-14.5); WHITE BLOOD COUNT 11.5 10^3/uL (4.3-11.0)
--- NOTE | 2016-10-10 10:04 | Diagnostic Imaging Report ---
EXAMINATION: Right lower extremity duplex venous ultrasound. TECHNIQUE: DVT protocol. Multiple sonographic images with color Doppler and waveform interrogation were performed of the right lower extremity veins with compression and augmentation maneuvers. INDICATION: Right leg swelling and pain. FINDINGS: The right lower extremity veins from the groin to below the knee veins were examined with normal color-flow, compressibility and normal waveform demonstrated. The great saphenous vein is patent. When compared to 08/31/16 exam, there is resolution of previously seen small clot in the posterior tibial vein. IMPRESSION: No evidence of DVT in the right lower extremity. Dictated by: Dictated on workstation # [id number]
== END ==
LOC: RAD 09:09
PROVIDERS: ATTEND Nurse Practitioner Family
DX: R22.41 Localized swelling, mass and lump, right lower limb (principal); M79.661 Pain in right lower leg
CPT/HCPCS: 36415; 85025

== ENCOUNTER 2017-01-06 22:45 | Emergency (ER) | payer MEDICARE ==
[~2017-01-06] VITALS: Ht 147.3 cm; Wt 63.5 kg
[~2017-01-06 22:45] MED LIST changes: -CATHETER FLUSH 10 ML SYR IV PRN
--- NOTE | 2017-01-06 23:15 | ED Lower Extremity ---
General Chief Complaint: Lower Extremity Stated Complaint: FALL/L FOOT INJ Nursing Triage Note: c/o L foot pain after tripped after getting out of recliner Nursing Sepsis Screen: No Definite Risk Source: patient History of Present Illness Time seen by provider: 23:09 Initial Comments PT ARRIVES VIA POV FROM HOME STATES SHE WAS GETTING OUT OF HER RECLINER AND ROLLED LEFT FOOT---OCCURRED AT 2245 NO OTHER INJURIES NO PRIOR INJURIES TO THIS FOOT OR ANKLE SLIGHT TINGLING TO LATERAL ASPECT OF LEFT FOOT/ANKLE AND 4TH/5TH TOES NO MOTOR DEFICITS Allergies and Home Medications Allergies Coded Allergies: fluticasone (Verified Allergy, Unknown, RASH, 07/20/16) Uncoded Allergies: MRI DYE (Allergy, Severe, ANAPHYLAXIS, 01/22/13) Home Medications Acetaminophen/Codeine 1 Tab Tablet, 0.5-1 TAB PO QID PRN for PAIN-MODERATE, ( Reported) TAKES 1/2-1 TABLET Atenolol 25 Mg Tablet, 25 MG PO HS, (Reported) Lisinopril 10 Mg Tablet, 10 MG PO HS, (Reported) Primidone 50 Mg Tablet, 200 MG PO HS, (Reported) TAKES 4 (50MG) TABLETS Ranitidine HCl 150 Mg Tablet, 150 MG PO HS, (Reported) Simvastatin 40 Mg Tablet, 40 MG PO HS, (Reported) Constitutional: no symptoms reported Musculoskeletal: see HPI Skin: no symptoms reported Psychiatric/Neurological: See HPI Past Xgigwar-Jdjqdu-Farckb Hx Patient Social History Alcohol Use: Denies Use Recreational Drug Use: No Smoking Status: Current Everyday Smoker Type Used: Cigarettes 2nd Hand Smoke Exposure: No Recent Foreign Travel: No Contact w/Someone Who Travel: No Recent Infectious Disease Expo: No Recent Hopitalizations: No Immunizations Up To Date Tetanus Booster (TDap): Unknown Date of Pneumonia Vaccine: Jan 21, 2015 Date of Influenza Vaccine: Dec 31, 2014 Seasonal Allergies Seasonal Allergies: No Surgeries History of Surgeries: Yes (CARDIAC CATH; HYST/BSO-2 DIFFERENT SURGERIES; SURGERY FOR PROLAPSED BLADDER) Surgeries: Adenoidectomy, Bladder Surgery, Cardiac, Hysterectomy, Oophorectomy , Tonsillectomy Respiratory History of Respiratory Disorde: Yes Respiratory Disorders: COPD Currently Using CPAP: No Currently Using BIPAP: No Cardiovascular History of Cardiac Disorders: Yes Cardiac Disorders: Coronary Artery Disease, High Cholesterol, Hypertension, Peripheral Vascular Neurological History of Neurological Disord: Yes (FAMILIAL TREMOR) Neurological Disorders: Stroke Reproductive System Hx Reproductive Disorders: No Sexually Transmitted Disease: No HIV/AIDS: No Female Reproductive Disorders: 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, 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 Genitourinary History of Genitourinary Disor: Yes Genitourinary Disorders: Kidney Stones Gastrointestinal History of Gastrointestinal Di: Yes (black stools, RECENT COLONOSCOPY W/ BX ) Gastrointestinal Disorders: Chronic Constipation Musculoskeletal History of Musculoskeletal Dis: Yes Musculoskeletal Disorders: Arthritis, Back Injury, Chronic Back Pain Endocrine History of Endocrine Disorders: No HEENT History of HEENT Disorders: No Cancer History of Cancer: No Psychosocial History of Psychiatric Problem: No Integumentary History of Skin or Integumenta: No Blood Transfusions History of Blood Disorders: No Adverse Reaction to a Blood Tr: No Family Medical History Significant Family History: CAD Over 55 Years Old Family Medial History: Cardiovascular disease 19 FATHER ( at 73 with mi) Completed stroke 19 MOTHER ( at 83 complications of stroke) Physical Exam Vital Signs Vital Sign - Last 12Hours 01/06/17 23:08 Temp 98.2 Pulse 84 Resp 18 B/P (MAP) 142/80 Pulse Ox 95 Capillary Refill : Less Than 3 Seconds General Appearance: WD/WN, no apparent distress, other (REEKS OF CIGARETTES; SMILING/LAUGHING, VERY TALKATIVE) Ankles: left ankle bone tenderness, left ankle limited range of motion, left ankle pain, left ankle soft tissue tenderness, left ankle swelling, left ankle other (LATEARAL ASPECT) Feet: left foot bone tenderness, left foot limited range of motion, left foot pain, left foot soft tissue tenderness, left foot swelling, left foot other ( LATERAL ASPECT) Neurologic/Tendon: normal sensation, normal motor functions, normal tendon functions 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, no motor/sensory deficits, alert, normal mood/affect, oriented x 3 Skin: normal color, warm/dry Splinting and Joint Reduction : Gabino wrap: Yes Immobilizers: Step Light Walker s/m/lg Progress/Results/Core Measures Results/Orders My Orders Orders - PERCY RUBIO DO Foot, Left, 3 Views (01/06/17 23:11) Ankle, Left, 3 Views (01/06/17 23:11) Gabino Bandage (01/06/17 23:27) Steplite (01/06/17 23:27) Vital Signs/I&O Vital Sign - Last 12Hours 01/06/17 23:08 Temp 98.2 Pulse 84 Resp 18 B/P (MAP) 142/80 Pulse Ox 95 Blood Pressure Mean: 100 Progress Note : Progress Note PT DOES HAVE TYLENOL #3 AT HOME FOR PAIN Diagnostic Imaging Comments XRAYS LEFT FOOT/ANKLE-NO ACUTE BONY INJURY, MILD SOFT TISSUE SWELLING, PENDING RADIOLOGIST REVIEW Reviewed: Reviewed by Me Departure Impression Impression: Primary Impression: LEFT FOOT AND ANKLE SPRAIN Disposition: HOME, SELF-CARE Condition: Improved Departure-Patient Inst. Referrals: ELVIA MIMS DO (PCP) Primary Care Physician DAY HUGHES (Family) Primary Care Physician Patient Instructions: Ankle Sprain (DC) Add. Discharge Instructions: ICE TO AREA AT 20 MINUTE INTERVALS GABINO WRAP AND WEAR BOOT NEEDED FOR COMFORT ELEVATE FOOT MUCH POSSIBLE ACTIVITIES TOLERATED TAKE YOUR HOME TYLENOL #3 NEEDED FOR PAIN FOLLOW UP WITH YOUR DR IN 1 WEEK IF NO BETTER All discharge instructions reviewed with patient and/or family. Voiced understanding. Images Extremities-Lower 1 - Mild, Swelling, Tenderness PERCY RUBIO DO Jan 06, 2017 23:15
[2017-01-06 23:50] VITALS: BP 142/80
--- NOTE | 2017-01-07 07:14 | Diagnostic Imaging Report ---
EXAM: ANKLE, LEFT, 3 VIEWS INDICATION: Left foot trauma and pain. COMPARISON: None. FINDINGS: No fracture or malalignment. No radiopaque foreign bodies. Small plantar and calcaneal heel spurs. No ankle joint effusion. IMPRESSION: No acute radiographic findings in the left ankle. Dictated by: Dictated on workstation # [id number]
--- NOTE | 2017-01-07 07:24 | Diagnostic Imaging Report ---
EXAM: FOOT, LEFT, 3 VIEWS INDICATION: Left foot trauma and pain. COMPARISON: None. FINDINGS: No fracture or malalignment. Soft tissue shadows are unremarkable. Small plantar and calcaneal heel spurs. IMPRESSION: No acute radiographic findings in the left foot. Dictated by: Dictated on workstation # [id number]
== END 2017-01-06 23:52 | disposition home or self-care (01) ==
LOC: EDUNIT# 22:45 → ER 22:46
DX: S93.402A Sprain of unspecified ligament of left ankle, initial encounter (principal); S93.602A Unspecified sprain of left foot, initial encounter; E78.00 Pure hypercholesterolemia, unspecified; I25.10 Atherosclerotic heart disease of native coronary artery without angina pectoris; J44.9 Chronic obstructive pulmonary disease, unspecified; F17.210 Nicotine dependence, cigarettes, uncomplicated; Z86.73 Personal history of transient ischemic attack (TIA), and cerebral infarction without residual deficits; Z90.710 Acquired absence of both cervix and uterus; Z90.89 Acquired absence of other organs; Z82.49 Family history of ischemic heart disease and other diseases of the circulatory system; W01.0XXA Fall on same level from slipping, tripping and stumbling without subsequent striking against object, initial encounter
CPT/HCPCS: 73610; 73630; 99283

== ENCOUNTER → 2017-01-06 | Outpatient (CLI) | payer MEDICARE ==
[~2017-01-06] MED LIST changes: +CATHETER FLUSH 10 ML SYR IV PRN
--- NOTE | 2017-01-06 10:34 | Diagnostic Imaging Report ---
PROCEDURE: US Gallbladder. TECHNIQUE: Multiple real-time grayscale images were obtained over the right upper quadrant in various projections. INDICATION: Right upper quadrant pain. FINDINGS: The pancreas is largely obscured. The liver is fairly homogeneous with no focal lesion seen. There is hepatopedal flow in the portal vein demonstrated. The CBD is 6 mm in caliber. The gallbladder demonstrates no stones or wall thickening. There is, however, tiny hyperechoic foci along the wall of the gallbladder that appeared nonmobile and without shadowing suggestive of gallbladder polyps, the largest measures 4 mm in size. No pericholecystic fluid. The right kidney is 10.3 CM in length with no hydronephrosis or focal lesion. No ascites or fluid collection is seen. Sonographic Amezcua's sign is reportedly negative. IMPRESSION: Suggestion of gallbladder polyps up to 4 mm in size. No stones or evidence of cholecystitis. Dictated by: Dictated on workstation # [id number]
== END ==
LOC: RAD 08:28
PROVIDERS: ATTEND Nurse Practitioner Community Health
DX: K87 Disorders of gallbladder, biliary tract and pancreas in diseases classified elsewhere (principal)
CPT/HCPCS: 76705

== ENCOUNTER 2017-01-23 05:51 | Outpatient (CLI) | payer MEDICARE ==
[~2017-01-23] VITALS: Ht 147.3 cm; Wt 63.5 kg
[2017-01-23] MEDS ORDERED: PRIM250T PO (15:04)
[2017-01-23] MEDS ORDERED: LISI10TA2 PO (15:04)
[2017-01-23] MEDS ORDERED: APIX5TAB PO (15:04)
[2017-01-23] MEDS ORDERED: L.AC1CAP6 PO (15:04)
[2017-01-23] MEDS ORDERED: MELO15TA39 PO (15:04)
[2017-01-23] MEDS ORDERED: SIMV40TA4 PO (15:04)
[2017-01-23] MEDS ORDERED: POTA2TAB15 PO (15:04)
[2017-01-23] MEDS ORDERED: ATEN25TA PO (15:04)
== END 2017-01-23 15:06 ==
LOC: PREOP 05:51
PROVIDERS: ATTEND Surgery
DX: Z01.818 Encounter for other preprocedural examination (principal); R10.13 Epigastric pain

== ENCOUNTER → 2017-03-31 | Outpatient (CLI) | payer MEDICARE ==
[~2017-03-31] MED LIST changes: +ACHD5005 PO; +APIX5TAB PO; -HYDR-3812 PO; +L.AC1CAP6 PO; +MELO15TA39 PO; +PANT40TA2 PO; +POTA2TAB15 PO; +PRIM250T PO
[2017-03-31 09:45] LABS: BASOPHILS # (AUTO) 0.1 10^3/uL (0.0-0.1); BASOPHILS % (AUTO) 1 % (0-10); EOSINOPHILS # (AUTO) 0.1 10^3/uL (0.0-0.3); EOSINOPHILS % (AUTO) 1 % (0-10); HEMATOCRIT 39 % (35-52); HEMOGLOBIN 14.1 G/DL (11.5-16.0); LYMPHOCYTES # (AUTO) 2.3 X 10^3 (1.0-4.0); LYMPHOCYTES % (AUTO) 25 % (12-44); MEAN CORPUSCULAR HEMOGLOBIN 28 PG (25-34); MEAN CORPUSCULAR HGB CONC 36 G/DL (32-36); MEAN CORPUSCULAR VOLUME 77 FL (80-99); MEAN PLATELET VOLUME 9.3 FL (7.4-10.4); MONOCYTES # (AUTO) 0.6 X 10^3 (0.0-1.0); MONOCYTES % (AUTO) 6 % (0-12); NEUTROPHILS % (AUTO) 67 % (42-75); PLATELET COUNT 309 10^3/uL (130-400); RED CELL DISTRIBUTION WIDTH 16.4 % (10.0-14.5)
[2017-03-31 10:01] LABS: ALANINE AMINOTRANSFERASE 6 U/L (0-55); ALKALINE PHOSPHATASE 66 U/L (40-136); BILIRUBIN,TOTAL 0.3 MG/DL (0.1-1.0); BUN/CREATININE RATIO 17; CALCIUM 9.1 MG/DL (8.5-10.1); CARBON DIOXIDE 23 MMOL/L (21-32); CHLORIDE 104 MMOL/L (98-107); CHOLESTEROL 233 MG/DL (< 200); GFR ESTIMATED > 60; GLUCOSE 94 MG/DL (70-105); HDL CHOLESTEROL 49 MG/DL (40-60); POTASSIUM 3.9 MMOL/L (3.6-5.0); SODIUM 139 MMOL/L (135-145); TRIGLYCERIDES 141 MG/DL (<150); VLDL CHOLESTEROL 28 MG/DL (5-40)
[2017-03-31 10:53] LABS: ERYTHROCYTE SEDIMENTATION RATE 4 MM/HR (0-30)
== END ==
LOC: LAB 09:25
PROVIDERS: ATTEND Internal Medicine Cardiovascular Disease
DX: E78.4 Other hyperlipidemia (principal); I65.23 Occlusion and stenosis of bilateral carotid arteries; Z87.19 Personal history of other diseases of the digestive system; Z86.73 Personal history of transient ischemic attack (TIA), and cerebral infarction without residual deficits; Z72.0 Tobacco use; Z86.718 Personal history of other venous thrombosis and embolism
CPT/HCPCS: 36415; 80053; 80061; 84443; 85025; 85652

== ENCOUNTER → 2017-04-11 | Outpatient (CLI) | payer MEDICARE | LOC: RAD 13:12 | PROVIDERS: ATTEND Internal Medicine Cardiovascular Disease | DX: I73.9 Peripheral vascular disease, unspecified (principal); I65.23 Occlusion and stenosis of bilateral carotid arteries; E78.4 Other hyperlipidemia; Z72.0 Tobacco use; Z86.73 Personal history of transient ischemic attack (TIA), and cerebral infarction without residual deficits; Z86.718 Personal history of other venous thrombosis and embolism; Z87.19 Personal history of other diseases of the digestive system | CPT/HCPCS: 93923 ==

== ENCOUNTER → 2017-05-13 | Outpatient (CLI) | payer MEDICARE ==
[2017-05-13 12:07] LABS: ALKALINE PHOSPHATASE 64 U/L (40-136); BILIRUBIN,TOTAL 0.5 MG/DL (0.1-1.0); BUN/CREATININE RATIO 18; CARBON DIOXIDE 21 MMOL/L (21-32); CHLORIDE 106 MMOL/L (98-107); CREATININE SERUM 0.73 MG/DL (0.60-1.30); GFR ESTIMATED > 60; GLUCOSE 78 MG/DL (70-105); POTASSIUM 4.3 MMOL/L (3.6-5.0); SODIUM 140 MMOL/L (135-145)
[2017-05-13 12:08] LABS: ALANINE AMINOTRANSFERASE < 6 U/L (0-55); ALBUMIN 3.9 GM/DL (3.2-4.5); CHOLESTEROL 215 MG/DL (< 200); HDL CHOLESTEROL 53 MG/DL (40-60); TOTAL PROTEIN 6.7 GM/DL (6.4-8.2); TRIGLYCERIDES 133 MG/DL (<150); VLDL CHOLESTEROL 27 MG/DL (5-40)
== END ==
LOC: LAB 09:18
PROVIDERS: ATTEND Internal Medicine Cardiovascular Disease
DX: E78.4 Other hyperlipidemia (principal)
CPT/HCPCS: 36415; 80053; 80061

== ENCOUNTER → 2017-06-20 | Outpatient (CLI) | payer MEDICARE ==
[2017-06-20 15:55] LABS: BASOPHILS # (AUTO) 0.1 10^3/uL (0.0-0.1); BASOPHILS % (AUTO) 1 % (0-10); EOSINOPHILS # (AUTO) 0.2 10^3/uL (0.0-0.3); EOSINOPHILS % (AUTO) 2 % (0-10); HEMATOCRIT 45 % (35-52); HEMOGLOBIN 14.6 G/DL (11.5-16.0); LYMPHOCYTES # (AUTO) 2.6 X 10^3 (1.0-4.0); LYMPHOCYTES % (AUTO) 23 % (12-44); MEAN CORPUSCULAR HEMOGLOBIN 29 PG (25-34); MEAN CORPUSCULAR HGB CONC 33 G/DL (32-36); MEAN CORPUSCULAR VOLUME 87 FL (80-99); MEAN PLATELET VOLUME 10.2 FL (7.4-10.4); MONOCYTES # (AUTO) 1.1 X 10^3 (0.0-1.0); MONOCYTES % (AUTO) 10 % (0-12); NEUTROPHILS # (AUTO) 7.3 X 10^3 (1.8-7.8); NEUTROPHILS % (AUTO) 65 % (42-75); PLATELET COUNT 263 10^3/uL (130-400); RED BLOOD COUNT 5.13 10^6/uL (4.35-5.85); RED CELL DISTRIBUTION WIDTH 17.3 % (10.0-14.5); WHITE BLOOD COUNT 11.3 10^3/uL (4.3-11.0)
== END ==
LOC: LAB 15:38
PROVIDERS: ATTEND Nurse Practitioner Family
DX: D50.0 Iron deficiency anemia secondary to blood loss (chronic) (principal)
CPT/HCPCS: 36415; 85025

== ENCOUNTER → 2017-12-19 | Outpatient (CLI) | payer MEDICARE ==
[~2017-12-19] MED LIST changes: +ACET-789 PO; +ASPI-999 PO; +CLOP75TA28 PO; +PRIM250T33 PO; +propanolol PO
--- NOTE | 2017-12-21 10:02 | Diagnostic Imaging Report ---
PET/CT. INDICATION: Lung mass. EXAMINATION: After intravenous administration of 12.62 mCi of F18-FDG, a series of overlapping emission and transmission PET images was obtained. In the coronal, transaxial and sagittal planes, the area imaged extended from the skull base through the upper thighs. There are no prior PET/CT examinations available for comparison. FINDINGS: There are no recent CT chest, abdomen and pelvis exams available either. The prior CTA chest exam of 07/28/14 failed to show any sign of a parenchymal lung mass. The CT abdomen/pelvis exam of 06/19/2016 revealed a nonobstructive calculus within the lower pole of left kidney but also fail to show any sign of an acute abnormality. On this study, the CT images do show that there is a 1.0 x 1.2 CM nodule in the periphery of left midlung. There is no hypermetabolic activity associated with this nodule, however. Consequently, I do suspect it is a benign process. However, as it was not clearly evident on the prior exam, I would recommend that a short-term (three-month) followup CT chest exam be performed for further study. There is no other hypermetabolic activity involving the lungs. There is a small focal area of increased activity in the left lobe of thyroid. This has a maximum SUV of 3.1. It is difficult to appreciate a discrete mass in this area on the CT images. I would recommend that ultrasound be performed for further study. There is no other hypermetabolic activity to suggest the presence of neoplasm. The CT images do show generalized thickening of the wall of the ascending colon with slight distortion of the pericolonic fat. This appearance does raise the question of colitis. Clinical followup is recommended. The appendix was not particularly well-visualized but there are no indirect signs of acute appendicitis. There are 2 small (3 mm) nonobstructive calculi within the left kidney. There are also surgical sutures about the rectosigmoid portion of the colon. There is no acute abnormality of the abdomen or pelvis noted otherwise. IMPRESSION: 1. The nodule in the left midlung is not hypermetabolic and consequently most likely benign. Recommendations as above. 2. The small focus of increased metabolic activity in the left lobe of thyroid is of uncertain etiology. Ultrasound would be recommended to better characterize this finding. 3. There is no other hypermetabolic activity to suggest the presence of neoplasm. 4. The appearance of the descending colon does raise the question of colitis. Clinical followup is recommended. 5. These results were discussed with Dr. Bland. Dictated by: Dictated on workstation # [id number]
== END ==
LOC: RAD 08:52
PROVIDERS: ATTEND Internal Medicine Critical Care Medicine
DX: R91.8 Other nonspecific abnormal finding of lung field (principal); R94.8 Abnormal results of function studies of other organs and systems; J44.9 Chronic obstructive pulmonary disease, unspecified; Z72.0 Tobacco use

== ENCOUNTER 2017-12-22 06:40 | Day surgery (SDC) | payer MEDICARE ==
[~2017-12-22] VITALS: Ht 147.3 cm; Wt 63.5 kg
[~2017-12-22 06:40] MED LIST changes: -ACET-789 PO; -ASPI-999 PO; -CLOP75TA28 PO; -PRIM250T33 PO; -propanolol PO
[2017-12-22] MEDS ORDERED: LIDOCAINE PF 1% 5 ML SYRINGE (ANLIKER/BAILEY ONLY) INJ ONE (06:41)
[2017-12-22] MEDS ORDERED: LIDOCAINE PF 2% 5 ML (XYLOCAINE) VIAL INJ ONE (06:41)
[2017-12-22] MEDS ORDERED: LIDOCAINE JELLY 2% (XYLOCAINE) 30 ML TUBE TOP ONE (06:41)
[2017-12-22] MEDS ORDERED: NS IV 500 ML 500 ML ONE (06:44)
--- OUTSIDE RECORDS SUMMARY | 2017-12-22 06:44 | XMS REPORT ---
Author Author DAY HUGHES [facility] Address [address] [place] [address] Care Team Providers Care Lumber Sorter Machine Name Role Phone DAY HUGHES Unavailable PROBLEMS Type Condition ICD9-CM Code FXI25-MN Code Onset Dates Condition Status SNOMED Code Problem CVA (cerebral vascular accident) I63.9 Active 368471665 Problem 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 430609971 Problem Dysfunction of right eustachian tube H69.81 Active 01649093 Problem Cataracts, bilateral H26.9 Active 15229844 Problem Hyperlipemia E78.5 Active 10962165 Problem Lung nodule, solitary R91.1 Active 119018813 Problem Essential hypertension I10 Active 10817476 Problem Peripheral vascular disease, unspecified I73.9 Active 934937015 Problem Lymphocytosis D72.820 Active 39739319 Problem Diverticulitis of intestine without perforation or abscess without bleeding, unspecified part of intestinal tract K57.92 Active 835621475 Problem Iron deficiency anemia due to chronic blood loss D50.0 Active 466048396 ALLERGIES No Information ENCOUNTERS Encounter Location Date Diagnosis [place] [address], [place] [address] Oct, Lung nodule, solitary R91.1 [facility], [place] [address], [place] [address] Oct, [facility] [place] [address] [id number] [place] [address] 79137- 8859 Oct, [facility] [place] [id number] [place] [address] 25157- 4136 Oct, [facility] [place] [address], [place] [address] 47[address] Sep, [place] [address] [place] [id number] [place] [address] 67511- 8906 Aug, [place] [address] [address]- [address] July, Arthralgia, unspecified joint M25.50 ; Essential hypertension I10 ; Seborrheic keratosis L82.1 and LLQ abdominal pain R10.32 [place] [address] 83766- 8913 Feb, Arthralgia, unspecified joint M25.50 [place] [address] 09409- 7863 Feb, Arthralgia, unspecified joint M25.50 [place] [address] [address]80- 2197 Dec, Arthralgia, unspecified joint M25.50 [place] [address] 12882- 1046 Dec, Right flank pain R10.9 ; Left foot pain M79.672 ; Arthralgia , unspecified joint M25.50 and Encounter for immunization Z23 [place] [address] [id number] [place] [address] 75260- 3068 Dec, CVA (cerebral vascular accident) I63.9 [place] [address] 33373- 2599 Dec, RUQ abdominal pain R10.11 [place] [address] 77660- 5733 Dec, Right lower quadrant pain R10.31 ; Diverticulitis of intestine without perforation or abscess without bleeding, unspecified part of intestinal tract K57.92 and Internal hemorrhoids K64.8 [place] [address] [place] [address] [id number] [place] [address] 61130- 0293 Nov, [place] [address] 48899- 0298 Oct, [place] [address] [place] [address] [id number] [place] [address] 45295- 1078 Aug, Iron deficiency anemia due to chronic blood loss D50.0 [place] [address] [place] [address] [id number] [place] [address] 70642- 8887 Aug, Peripheral vascular disease, unspecified I73.9 and Colitis K52.9 [place] [address] 00724- 6032 Aug, H/O: GI bleed Z87.19 [place] [address] 52275- 5710 Aug, CVA (cerebral vascular accident) I63.9 [place] [address] [address] [id number] [place] [address] 64778- 9928 Aug, RUQ abdominal pain R10.11 [place] [address] [place] [id number] [place] [address] 57367- 8183 July, RUQ abdominal pain R10.11 and Lymphocytosis D72.820 [place] [address] [place] [address] [id number] [place] [address] 78917- 6721 July, [place] [address] [id number] [place] [address] 64014- 6912 July, Colitis K52.9 [facility] [id number] [place] [address] [id number] July, [place] [address] [address] [id number] [place] [address] 30452- 1906 Jun, Right flank pain R10.9 [place] [address] [id number] [place] [address] 92667- 8788 May, Urinary tract infection without hematuria, site unspecified N39.0 and Right flank pain R10.9 [place] [address] [id number] [place] [address] 55378- 4477 22 Dec, 2016 Acute non-recurrent maxillary sinusitis J01.00 and Need for hepatitis C screening test Z11.59 [facility] [id number] [place] [address] [id number] Jan, Dental examination Z01.20 [facility] [id number] [place] [address] [id number] Dec, Dental examination Z01.20 [facility] [address] [id number] [place] [address] [id number] Dec, Dental examination Z01.20 [facility], [place] [id number] [place] [address] 81610- 6386 Dec, [facility], [place] [id number] [place] [address] 35807- 4086 Dec, [facility] [id number] [place] [address] [id number] Dec, Dental examination Z01.20 [facility], [place] [id number] [place] [address] 15156- 1866 Nov, [facility] [id number] [place] [address] [id number] Nov, Dental examination Z01.20 [facility], [place] [id number] [place] [address] 159869- 1056 Oct, Arthralgia, unspecified joint M25.50 and Essential hypertension I10 [facility], [place] [id number] [place] [address] 570519- 8606 Oct, [facility] [address] [place] [address] 193763 -1532 Sep, Bilateral otitis media, unspecified chronicity, unspecified otitis media type H66.93 [facility] [address] [id number] [place] [address] [id number] Sep, Dental examination Z01.20 [facility] [address] [place] [address] [id number] Aug, Dental examination V72.2 [facility], [place] [id number] [place] [address] 29498- 3291 14 Aug, 2015 Essential hypertension I10 and Muscle cramping R25.2 [place] [address] 39253- 0924 09 Aug, 2015 Tension-type headache, not intractable, unspecified chronicity pattern G44.209 ; Muscle cramping R25.2 and Right leg pain M79.604 [facility] [address] [id number] July, Dental examination Z01.20 [facility] [address] [id number] July, Encounter for dental examination and cleaning without abnormal findings Z01.20 and Dental caries K02.9 [facility] [address] [id number] Jun, Encounter for dental examination Z01.20 [facility], [place] [address] 88354- 7683 Apr, [facility] [address] 04880 -1916 Apr, Bronchitis J40 [place] [address] 36548- 9301 09 Feb, 2015 Hyperlipemia E78.5 ; Carotid arterial disease I77.9 ; Tobacco use Z72.0 ; Hypertension I10 ; RBBB I45.10 and CVA (cerebral vascular accident) I63.9 [place] [address] [place] [id number] [place] [address] 72294- 1249 03 Feb, 2015 Status post CVA Z86.73 ; Dysfunction of right eustachian tube H69.81 and Essential hypertension I10 [place] [address] 56680- 6839 Dec, Encounter for immunization Z23 [place] [address] 11885- 7209 Oct, PVD (peripheral vascular disease) 443.9 and Weight loss 783.21 [place] [address] [place] [address] 02530- 7454 Oct, PVD (peripheral vascular disease) 443.9 and Weight loss 783.21 [place] [address] [place] [id number] [place] [address] 83314- 3707 Aug, Hyperlipidemia 272.4 ; Carotid arterial disease 447.9 ; Tobacco dependency 305.1 ; Hypertension 401.9 ; RBBB 426.4 and CVA (cerebral infarction) 434.91 [place] [id number] [place] [address] 30537- 3365 Aug, [address] 41411- 2818 Aug, 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 [place] [id number] [place] [address] 78940- 0369 July, Chest pain, unspecified 786.50 ; Occlusion and stenosis of carotid artery without mention of cerebral infarction 433.10 ; Nondependent tobacco use disorder 305.1 ; Unspecified essential hypertension 401.9 ; Occlusion and stenosis of carotid artery with cerebral infarction 433.11 ; Unspecified cerebrovascular disease 437.9 ; Headache 784.0 ; Neoplasm of uncertain behavior of other and unspecified digestive organs 235.5 ; Unspecified osteoporosis 733.00 ; Right bundle branch block 426.4 ; Other dyspnea and respiratory abnormalities 786.09 ; 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 ; Other seborrheic keratosis 702.19 ; Rash and other nonspecific skin eruption 782.1 ; Personal history of tobacco use, presenting hazards to health V15.82 ; Dermatophytosis of nail 110.1 ; Essential and other specified forms of tremor 333.1 ; Pain in joint, shoulder region 719.41 ; Actinic keratosis 702.0 ; Corns and callosities 700 and Need for prophylactic vaccination and inoculation, Influenza V04.81 [address] [place] [address] 94714- 9033 Jun, [facility] [place] [facility] [address] [id number] [place] [address]- 7456 Jun, [facility] [place] [facility] [address] [id number] [place] [address]- 6962 May, [facility] [place] [facility] [address] [id number] [place] [address]- 1631 May, [facility] [place] [facility] [address] [id number] [place] [address]- 8977 May, [facility] [place] [facility] [address] [id number] [place] [address]- 5048 May, [facility] [place] [facility] [address] [id number] [place] [address]- 4485 Mar, [facility] [place] [facility] [address] [id number] [place] [address]- 2650 Mar, [facility] [place] [facility] [address] [id number] [place] [address]- 7982 Mar, [facility] [place] [facility] [address] [id number] [place] [address]- 7769 Mar, [facility] [place] [facility] [address] [id number], [place] [address]- 2005 Mar, [facility] [place] [facility] [address] [id number], [place] [address]- 4886 Mar, [facility] [place] [facility] [address] [id number], [place] [address]- 2359 Mar, [facility] [place] [facility] [address] [id number] [place] [address]- 2214 Mar, [facility] [place] [facility] [address] [id number], [place] [address]- 5028 Mar, [facility] [place] [facility] [address] [id number] [place] [address]- 9849 Mar, [facility] [place] [facility] [address] [id number] [place] [address]- 0560 Feb, [facility] [place] [facility] [address] [id number] [place] 4673 Feb, [facility] [place] [facility] [address] [id number] [place] 7[address] Feb, [facility] [place] [facility] [address] [id number] [place] [address]- 9772 Feb, [facility] [place] [facility] [address] [id number] [place]658 Feb, [facility] [place] [facility] [address] [id number] [place] 3289 Feb, [facility] [place] [facility] [address] [id number] [place] [address]- 6611 Feb, [facility] [place] [facility] [address] [id number] [place] [address]- 3975 Feb, [facility] [place] [facility] [address] [id number] [place] [address]- 2503 Jan, [facility] [place] [facility] [address] [id number] [place] [address]- 9316 Jan, [facility] [place] [facility] [address] [id number] [place] [address]- 8816 Nov, [facility] [place] [facility] [address] [id number] [place] [address]- 0805 Nov, [facility] [place] [facility] [address] [id number] [place] [address]- 4234 Sep, [facility] [place] [facility] [address] [id number] [place] [address]- 6780 Sep, [facility] [place] [facility] [address] [id number] [place] 3738 Sep, [facility] [place] [facility] [address] [id number] [place] [address]- 4614 Sep, [facility] [place] [facility] [address] [id number] [place] [address]- 1614 Aug, [facility] [place] [facility] [address] [id number] [place] [address]- 2917 Aug, [facility] [place] [facility] [address] [id number] [place] [address]- 5017 Aug, [facility] [place] [facility] [address] [id number] [place] [address]- 5511 Aug, [facility] [place] [facility] [address] [id number] [place] [address]- 6150 Aug, [facility] [place] [facility] [address] [id number] [place] [address]- 8042 Aug, [facility] [place] [facility] [address] [id number] [place] [address]- 9145 July, [facility] [place] [facility] [address] [id number] [place] [address]- 1041 July, [facility] [place] [facility] [address] [id number] [place] [address]- 7118 July, [facility] [place] [facility] [address] [id number] [place] [address]- 4078 July, [facility] [place] [facility] [address] [id number] [place] [address]- 0483 Jun, [facility] [place] [facility] [address] [id number] [place] [address]- 5385 Jun, [facility] [place] [facility] [address] [id number] [place] [address]- 5147 Apr, [facility] [place] [facility] [address] [id number] [place] [address]- 6404 Apr, [facility] [place] [facility] [address] [id number] [place] [address]- 0651 Apr, [facility] [place] [facility] [address] [id number], [place] [address]- 2762 Apr, [facility] [address] [id number] [place] [address]- 8014 Apr, [facility] [place] [facility] [address] [id number] [place] [address]- 0443 Apr, [facility] [place] [facility] [address] [facility] [id number] [place] [address]- 7365 Mar, [facility] [place] [facility] [address] [id number] [place] [address]- 4251 Mar, [facility] [place] [facility] [address] [id number] [place] [address]- 6315 Mar, [facility] [place] [facility] [address] [id number] [place] [address]- 6729 Mar, [facility] [address] [facility] [id number] [place] [address]- 6362 Mar, [facility] [place] [facility] [address] [id number] [place] [address]- 5046 Feb, [facility] [address] [id number] [place] [address]- 7964 Feb, [facility] [place] [facility] [address] [facility] [id number] [place] [address]- 4312 Feb, [facility] [place] [facility] [address] [id number] [place] [address]- 3488 Feb, [facility] [place] [facility] [address] [id number], [place] [address]- 9722 Feb, [facility] [place] [facility] [address] [id number] [place] [address]- 4252 Feb, [facility] [place] [facility] [address] [facility] [id number] [place] [address]- 9397 06 Feb, 2013 [facility] [place] [facility] [address] [facility] [id number] [place] [address]- 4241 Feb, [facility] [place] [facility] [address] [id number] [place] [address]- 5813 Feb, [facility] [place] [facility] [address] [id number] [place] [address]- 7544 Feb, [facility] [place] [facility] [address] [id number] [place] [address]- 0010 Feb, [facility] [place] [facility] [address] [id number] [place] [address]- 0052 Feb, [facility] [place] [facility] [address] [id number] [place] [address]- 9016 Jan, [facility] [place] [facility] [address] [id number] [place] [address]- 6975 Jan, [facility] [place] [facility] [address] [id number] [place] [address]- 1576 Jan, [facility] [place] [facility] [address] [id number] [place] [address]- 7641 Jan, [facility] [place] [facility] [address] [id number] [place] [address]- 0930 Jan, [facility] [place] [facility] [address] [id number] [place] [address]- 2889 Jan, [facility] [place] [facility] [address] [id number] [place] [address]- 9705 Jan, [facility] [place] [facility] [address] [id number] [place] [address]- 3074 Jan, [facility] [place] [facility] [address] [id number] [place] [address]- 9962 Jan, [facility] [place] [facility] [address] [id number] [place] [address]- 7065 Jan, [facility] [place] [facility] [address] [id number] [place] [address]- 0235 Jan, [facility] [place] [facility] [address] [id number] [place] [address]- 2244 Jan, [facility] [place] [facility] [address] [id number] [place] [address]- 9693 Jan, [facility] [place] [facility] [address] [id number] [place] [address]- 0711 Jan, [facility] [place] [facility] [address] [id number] [place] [address] 254 Jan, [facility] [place] [facility] [address] [id number] [place] [address]- 4964 Dec, [facility] [place] [facility] [address] [id number] [place] [address]- 8473 Dec, [facility] [place] [facility] [address] [id number] [place] [address]- 9758 Dec, [facility] [place] [facility] [address] [id number] [place] [address]- 1000 Dec, [facility] [place] [facility] [address] [id number] [place] [address]- 2317 Oct, [facility] [place] [facility] [address] [id number] [place] [address]- 5965 Oct, [facility] [place] [facility] [address] [id number] [place] [address]- 7158 Oct, [facility] [place] [facility] [address] [id number], [place] [address]- 1359 Sep, [facility] [place] [facility] [address] [id number], [place] [address]- 1102 Aug, [facility] [place] [facility] [address] [id number] [place] [address]- 2546 July, [facility] [place] [facility] [address] [id number], [place] [address]- 0576 July, [facility] [place] [facility] [address] [id number] [place] [address]- 2546 July, [facility] [place] [facility] [address] [id number] [place] [address]- 0319 July, [facility] [address] [id number] [place] [address]- 4474 May, [facility] [place] [facility] [address] [id number] [place] [address]- 6336 May, [facility] [address] [id number] [place] [address]- 7651 Mar, [facility] [place] [facility] [address] [id number] [place] [address]- 8086 Mar, [facility] [address] [id number] [place] [address]- 6834 Mar, [facility] [place] [facility] [address] [id number] [place] [address]- 1938 Feb, [facility] [address] [id number] [place] 7819 Feb, [facility] [place] [facility] [address] [id number] [place] [address]- 8588 Feb, [facility] [place] [facility] [address] [id number] [place] [address]- 1850 Feb, [facility] [address] [facility] [id number] [place] 8227 Feb, [facility] [place] [facility] [address] [id number] [place] [address]- 4875 Feb, [facility] [place] [facility] [address] [id number] [place] [address]- 3896 Jan, [facility] [place] [facility] [address] [id number] [place] [address]- 0143 Jan, [facility] [place] [facility] [address] [id number] [place] [address]- 5742 Jan, [facility] [place] [facility] [address] [id number] [place] [address] Jan, [facility] [place] [facility] [address] [id number] [place] [address] Jan, [facility] [place] [facility] [address] [id number] [place] [address] Jan, [facility] [place] [facility] [address] [id number] [place] [address] Jan, [facility] [place] [facility] [address] [id number] [place] [address] Jan, [facility] [place] [facility] [address] [id number] [place] [address] Dec, [facility] [place] [facility] [address] [id number] [place] [address] Dec, [facility] [place] [facility] [address] [id number] [place] [address] Dec, [facility] [place] [facility] [address] [id number] [place] [address] Dec, [facility] [place] [facility] [address] [id number] [place] [address] Oct, [facility] [place] [facility] [address] [id number] [place] [address] Sep, [facility] [place] [facility] [address] [id number] [place] [address] Sep, [facility] [place] [facility] [address] [id number] [place] [address] Sep, [facility] [place] [facility] [address] [id number] [place] [address] Sep, [facility] [place] [facility] [address] [id number] [place] [address] Jun, [facility] [place] [facility] [address] [id number] [place] [address] May, [facility] [place] [facility] [address] [id number] [place] [address] 14 Apr, 2011 [facility] [address] [id number] [place] [address] 09 Apr, 2011 [facility] [place] [facility] [address] [id number] [place] [address] 03 Apr, 2011 [facility] [address] [facility] [id number] [place] [address]686 12 Feb, 2011 [facility] [place] [facility] [address] [id number] [place] [address]- [address] 12 Feb, 2011 [facility] [address] [id number] [place] [address]163 30 Jan, 2011 [facility] [place] [facility] [address] [id number] [place] [address] Jan, [facility] [address] [facility] [id number] [place] [address] Jan, [facility] [place] [facility] [address] [facility] [id number] [place] [address] 31 Feb, 2010 [facility] [place] [facility] [address] [facility] [id number] [place] [address] 30 Feb, 2010 [facility] [place] [facility] [address] [facility] [id number] [place] [address]- [address]49 30 Feb, 2010 [facility] [place] [facility] [address] [facility] [id number] [place] [address] 2547 30 Feb, 2010 [facility] [place] [facility] [address] [id number] [place] [address]- [address]46 27 Feb, 2010 [facility] [place] [facility] [address] [id number] [place] [address]48 23 Feb, 2010 [facility] [place] [facility] [address] [facility] [id number] [place] [address]- [address]46 20 Feb, 2010 [facility] [place] [facility] [address] [facility] [id number] [place] [address]39 18 Feb, 2010 [facility] [place] [facility] [id number] [place] [address] Feb, [facility] [place] [id number] [place] [address] Feb, [facility] [place] [id number] [place] [address] Jan, [facility] [place] [id number], [place] [address] Dec, [facility] [place] [address] [facility] [id number], [place] [address] Nov, [facility] [place] [id number], [place] [address] Mar, [facility] [place] [id number], [place] [address] Jan, [facility] [place] [id number] [place] [address] Dec, [facility], [place] [id number], [place] [address] Dec, [facility], [place] [id number], [place] [address] Sep, [facility] [place] [address] [id number] [address] Jun, [facility], [place] [address] [id number], [place] [address] Mar, [facility] [place] [address] [id number], [place] [address] Jan, IMMUNIZATIONS No Known Immunizations SOCIAL HISTORY Never Assessed REASON FOR VISIT Requests return call PLAN OF CARE VITAL SIGNS MEDICATIONS Unknown Medications RESULTS No Results PROCEDURES No Known procedures INSTRUCTIONS MEDICATIONS ADMINISTERED No Known Medications MEDICAL (GENERAL) HISTORY Type Description Date Medical History Hypertension Medical History Hepatitis at age 19 after being dx with mononucleosis Medical History Renal disease history of kideny stones Medical History prolasped bladder Medical History urinary tract infections haven't had any in many years Medical History osetoporosis Medical History arthritisis Medical History spine compression fx healed 10-12 years ago Medical History x-ray done 01/03 shows compression fx at t7 and mod to 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 Had a pseudoaneurysm after procedure Dr Burton 07/2014 Surgical History Colonoscopy. Increased Lymphocytes either evolving Autoimmune condition or related to medications she is taking 06/2016 Surgical History Gastric and Duodenal ulcer 01/2017 Hospitalization History Heart cath per Dr. Burton at [facility]- hypotension 08/08 Hospitalization History Hematochezia-[facility] 07/27/16
--- OUTSIDE RECORDS SUMMARY | 2017-12-22 06:45 | XMS REPORT ---
Author Author ROSENDO BARROW [facility] Address [address] [place] [address] Care Team Providers Care Jockey Agent Name Role Phone ROSENDO BARROW Unavailable PROBLEMS Type Condition ICD9-CM Code JKN46-DC Code Onset Dates Condition Status SNOMED Code Problem CVA (cerebral vascular accident) I63.9 Active 607296433 Problem 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 045428717 Problem Dysfunction of right eustachian tube H69.81 Active 76510987 Problem Cataracts, bilateral H26.9 Active 86278050 Problem Hyperlipemia E78.5 Active 32500979 Problem Lung nodule, solitary R91.1 Active 601335921 Problem Essential hypertension I10 Active 76683034 Problem Peripheral vascular disease, unspecified I73.9 Active 296882853 Problem Lymphocytosis D72.820 Active 83558420 Problem Diverticulitis of intestine without perforation or abscess without bleeding, unspecified part of intestinal tract K57.92 Active 781218006 Problem Iron deficiency anemia due to chronic blood loss D50.0 Active 108387756 ALLERGIES No Information ENCOUNTERS Encounter Location Date Diagnosis [facility] [place] [address] [address] Oct, Lung nodule, solitary R91.1 [facility] [place] [address] [address] Oct, [facility] [place] [address] [address] Oct, [facility] [place] [address] [address] Oct, [facility] [place] [address] [address] Sep, [facility] [place] [address] [place] [id number] [place] [address]- 8080 Aug, [place] [address] [address]- [address] July, Arthralgia, unspecified joint M25.50 ; Essential hypertension I10 ; Seborrheic keratosis L82.1 and LLQ abdominal pain R10.32 [place] [address] [address]60- [address] Feb, Arthralgia, unspecified joint M25.50 [place] [address] 40[address]- 0327 Feb, Arthralgia, unspecified joint M25.50 [place] [address] 6[address]34- 8822 Dec, Arthralgia, unspecified joint M25.50 [place] [address] [address]36- 6294 Dec, Right flank pain R10.9 ; Left foot pain M79.672 ; Arthralgia , unspecified joint M25.50 and Encounter for immunization Z23 [address] [address]- [address] Dec, CVA (cerebral vascular accident) I63.9 [place] [address] [address]- [address]60 Dec, RUQ abdominal pain R10.11 [place] [address] 12376- 3750 Dec, Right lower quadrant pain R10.31 ; Diverticulitis of intestine without perforation or abscess without bleeding, unspecified part of intestinal tract K57.92 and Internal hemorrhoids K64.8 [place] [address] [id number] [place] [address] 40766- 7434 Nov, [place] [address] 16819- 3398 Oct, [place] [address] [id number] [place] [address] 80774- 6977 Aug, Iron deficiency anemia due to chronic blood loss D50.0 [place] [address] [id number] [place] [address] 98021- 8897 Aug, Peripheral vascular disease, unspecified I73.9 and Colitis K52.9 [place] [address] 02583- 8294 14 Aug, 2016 H/O: GI bleed Z87.19 [place] [address] [id number] [place] [address] 56189- 0620 Aug, CVA (cerebral vascular accident) I63.9 [place] [address] [id number] [place] [address] 70645- 2174 Aug, RUQ abdominal pain R10.11 [place] [address] [id number] [place] [address] 81494- 8621 July, RUQ abdominal pain R10.11 and Lymphocytosis D72.820 [place] [address] 05418- 9897 July, [place] [address] [id number] [place] [address] 43787- 0201 July, Colitis K52.9 [place] [address] [id number] July, [place] [address] [id number] [place] [address] 09309- 3663 Jun, Right flank pain R10.9 [place] [address] 45145- 9916 May, Urinary tract infection without hematuria, site unspecified N39.0 and Right flank pain R10.9 [place] [address] [id number] [place] [address] 77391- 8708 Feb, Acute non-recurrent maxillary sinusitis J01.00 and Need for hepatitis C screening test Z11.59 [facility] [address] [id number] Jan, Dental examination Z01.20 [facility] [address] [id number] [id number] Dec, Dental examination Z01.20 [facility] [address] [place] [id number] [place] [address] [id number] Dec, Dental examination Z01.20 [facility] [place] [id number] [place] [address] 19862- 2266 Dec, [facility] [place] [id number] [place] [address] 04982- 3596 Dec, [facility] [address] [id number] [place] [address] [id number] Dec, Dental examination Z01.20 [facility] [place] [address] [place] [address] 96551- 4506 Nov, [facility] [address] [place] [address] [id number] Nov, Dental examination Z01.20 [facility] [place] [address] [place] [address] 50835- 2456 Oct, Arthralgia, unspecified joint M25.50 and Essential hypertension I10 [facility] [place] [id number] [place] [address] 968593- 6876 Oct, [facility] [address] [place] [address] 211447 -4356 Sep, Bilateral otitis media, unspecified chronicity, unspecified otitis media type H66.93 [facility] [address] [place] [address] [id number] [place] [address] [id number] Sep, Dental examination Z01.20 [facility] [address] [id number] Aug, Dental examination V72.2 [facility] [place] [id number] [place] [address] 27776- 3863 14 Aug, 2015 Essential hypertension I10 and Muscle cramping R25.2 [place] [address] 52679- 2958 09 Aug, 2015 Tension-type headache, not intractable, unspecified chronicity pattern G44.209 ; Muscle cramping R25.2 and Right leg pain M79.604 [facility] [address] [id number] July, Dental examination Z01.20 [facility] [address] [place] [address] [id number] July, Encounter for dental examination and cleaning without abnormal findings Z01.20 and Dental caries K02.9 [facility] [address] [id number] Jun, Encounter for dental examination Z01.20 [facility] [place] [address] [place] [address] [id number] [place] [address] 85539- 6098 Apr, [facility] [address] 09546 -4581 02 Apr, 2015 Bronchitis J40 [place] [address] 33814- 4636 09 Feb, 2015 Hyperlipemia E78.5 ; Carotid arterial disease I77.9 ; Tobacco use Z72.0 ; Hypertension I10 ; RBBB I45.10 and CVA (cerebral vascular accident) I63.9 [place] [address] [id number] [place] [address] 70159- 8557 Feb, Status post CVA Z86.73 ; Dysfunction of right eustachian tube H69.81 and Essential hypertension I10 [place] [address] [place] [id number] [place] [address] 13219- 3615 Dec, Encounter for immunization Z23 [place] [address] 89190- 4844 Oct, PVD (peripheral vascular disease) 443.9 and Weight loss 783.21 [place] [address] [place] [address] 55229- 8672 Oct, PVD (peripheral vascular disease) 443.9 and Weight loss 783.21 [place] [address] [place] [id number] [place] [address] 49549- 5190 Aug, Hyperlipidemia 272.4 ; Carotid arterial disease 447.9 ; Tobacco dependency 305.1 ; Hypertension 401.9 ; RBBB 426.4 and CVA (cerebral infarction) 434.[address] 19503- 8075 Aug, [address] 14163- 7931 Aug, 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 15620- 4512 July, Chest pain, unspecified 786.50 ; Occlusion [...] for prophylactic vaccination and inoculation, Influenza V04.81 [place] [id number] [place] [address] 53766- 7678 Jun, [facility] [place] [facility] [address] [id number] [place] [address]- 3374 13 Jun, 2014 [facility] [place] [facility] [address] [id number] [place] [address]- 5550 17 May, 2014 [facility] [place] [facility] [address] [id number] [place] [address]- 7211 17 May, 2014 [facility] [place] [facility] [address] [id number] [place] [address] 2547 May, [facility] [place] [facility] [address] [id number] [place] [address]- 1263 May, [facility] [place] [facility] [address] [id number] [place] [address]- 6728 Mar, [facility] [place] [facility] [address] [id number] [place] [address]- 2976 Mar, [facility] [place] [facility] [address] [id number] [place] [address]- 7707 Mar, [facility] [place] [facility] [address] [id number] [place] [address]- 7497 Mar, [facility] [place] [facility] [address] [id number] [place] [address]- 8037 Mar, [facility] [place] [facility] [address] [id number] [place] [address]- 1803 Mar, [facility] [place] [facility] [address] [id number] [address]- 7921 Mar, [facility] [place] [facility] [address] [id number] [place] [address]- 7968 Mar, [facility] [place] [facility] [address] [id number] [place] [address]- 8517 Mar, [facility] [place] [facility] [address] [id number] [place] [address]- 5065 Mar, [facility] [place] [facility] [address] [id number] 244[address] Feb, [facility] [place] [facility] [address] [id number] [place] [address]- 6902 Feb, [facility] [place] [facility] [address] [id number] [place] [address]- 4990 Feb, [facility] [place] [facility] [address] [id number] [place] [address]- 1432 Feb, [facility] [place] [facility] [address] [id number] [place] [address]- 3264 Feb, [facility] [place] [facility] [address] [id number] [place] [address]- 3877 Feb, [facility] [place] [facility] [address] [id number] [place] [address]- 6641 Feb, [facility] [place] [facility] [address] [id number] [place] [address]- 6472 Feb, [facility] [place] [facility] [address] [id number] [place] [address]- 3221 Jan, [facility] [place] [facility] [address] [id number] [place] [address]- 5908 Jan, [facility] [place] [facility] [address] [id number] [place] [address]- 8423 Nov, [facility] [place] [facility] [address] [id number] [place] [address]- 6113 Nov, [facility] [place] [facility] [address] [id number] [address]- 2786 Sep, [facility] [place] [facility] [address] [id number] [place] [address]- 7110 Sep, [facility] [place] [facility] [address] [id number] [place] 8034 Sep, [facility] [place] [facility] [address] [id number] [place] 7325 Sep, [facility] [place] [facility] [address] [id number] [place] [address]- 7808 Aug, [facility] [place] [facility] [address] [id number] [place] [address]- 2864 Aug, [facility] [place] [facility] [address] [id number] [place] [address]- 7077 Aug, [facility] [place] [facility] [address] [id number] [place] [address]- 2755 Aug, [facility] [place] [facility] [address] [id number] [place] [address]- 0539 Aug, [facility] [place] [facility] [address] [id number] [place] [address]- 0522 Aug, [facility] [place] [facility] [address] [id number] [place] [address]- 4750 July, [facility] [place] [facility] [address] [id number] [place] [address]- 4639 July, [facility] [place] [facility] [address] [id number] [place] [address]- 1892 July, [facility] [place] [facility] [address] [id number] [place] [address]- 7167 July, [facility] [place] [facility] [address] [id number] [place] [address]- 4837 Jun, [facility] [place] [facility] [address] [id number] [place] [address]- 5007 Jun, [facility] [place] [facility] [address] [id number] [place] [address]- 0964 Apr, [facility] [place] [facility] [address] [id number] [place] [address]- 1680 Apr, [facility] [place] [facility] [address] [id number] [place] [address]- 2743 Apr, [facility] [place] [facility] [address] [id number] [place] [address]- 5707 Apr, [facility] [place] [facility] [address] [id number] [place] 0121 Apr, [facility] [place] [facility] [address] [id number] [place] [address]- 3656 Apr, [facility] [place] [facility] [address] [id number] [place] 6040 Mar, [facility] [place] [facility] [address] [id number] [place] [address]- 2222 Mar, [facility] [place] [facility] [address] [id number] [place] [address]- 1387 Mar, [facility] [place] [facility] [address] [id number] [place] [address]- 4413 Mar, [facility] [place] [facility] [address] [id number] [place] [address]- 1792 Mar, [facility] [place] [facility] [address] [id number] [place] [address]- 3536 Feb, [facility] [place] [facility] [address] [id number] [place] [address]- 7843 Feb, [facility] [place] [facility] [address] [id number] [place] [address]- 6178 Feb, [facility] [place] [facility] [address] [id number] [place] [address]- 7774 Feb, [facility] [place] [facility] [address] [id number] [place] [address]- 7746 Feb, [facility] [place] [facility] [address] [id number] [place] [address]- 4579 Feb, [facility] [place] [facility] [address] [id number] [place] 8744 Feb, [facility] [place] [facility] [address] [id number] [place] [address]- 0462 Feb, [facility] [place] [facility] [address] [id number] [place] [address]- 2979 Feb, [facility] [address] [id number] [place] [address]- 5245 Feb, [facility] [address] [id number] [place] [address]- 0123 Feb, [facility] [address] [id number] [place] [address]- 3318 Feb, [facility] [address] [id number] [place] [address]- 2509 Jan, [facility] [address] [id number] [place] [address]- 5809 Jan, [facility] [address] [id number] [place] [address]- 4559 Jan, [facility] [address] [id number] [place] [address]- 9584 Jan, [facility] [address] [id number] [place] [address]- 1220 Jan, [facility] [address] [id number] [place] [address]- 7924 Jan, [facility] [address] [id number] [place] [address]- 8281 Jan, [facility] [address] [id number] [place] [address]- 9869 Jan, [facility] [address] [id number] [place] [address]- 7646 Jan, [facility] [place] [facility] [address] [id number] [place] [address]- 9963 Jan, [facility] [place] [facility] [address] [id number] [place] [address]- 1389 Jan, [facility] [address] [id number] [place] [address]- 5439 Jan, [facility] [place] [facility] [address] [id number] [place] [address]- 2573 Jan, [facility] [place] [facility] [address] [id number] [place] [address]- 6209 Jan, [facility] [place] [facility] [address] [id number] [place] [address]- 9846 Jan, [facility] [place] [facility] [address] [id number] [place] [address]- 5261 Dec, [facility] [place] [facility] [address] [id number] [place] 1357 Dec, [facility] [place] [facility] [address] [id number] [place] [address]- 2795 Dec, [facility] [place] [facility] [address] [id number] [place] [address]- 1098 Dec, [facility] [place] [facility] [address] [id number] [place] [address]- 1942 Oct, [facility] [place] [facility] [address] [id number] [place] [address]- 4073 Oct, [facility] [place] [facility] [address] [id number] [address]- 6658 Oct, [facility] [place] [facility] [address] [id number] [place] [address]- 8941 Sep, [facility] [place] [facility] [address] [id number] [place] [address]- 0389 Aug, [facility] [place] [facility] [address] [id number] [place] [address]- 5714 July, [facility] [place] [facility] [address] [id number] [place] [address]- 9236 July, [facility] [place] [facility] [address] [id number] [address]- 5810 July, [facility] [place] [facility] [address] [id number] [place] [address]- 3981 July, [facility] [address] [id number] [place] [address]- 6009 May, [facility] [place] [facility] [address] [id number] [place] [address]- 8726 May, [facility] [address] [facility] [id number] [place] [address]- 3748 Mar, [facility] [place] [facility] [address] [id number] [place] [address]- 1679 Mar, [facility] [address] [id number] [place] [address]- 1745 Mar, [facility] [address] [id number] [place] [address]- 0027 Feb, [facility] [address] [place] [id number] [place] [address]- 0148 Feb, [facility] [address] [id number] [place] [address]- 6091 Feb, [facility] [address] [id number] [address]- 2997 Feb, [facility] [address] [id number] [address]- 6239 Feb, [facility] [address] [id number] [place] [address]- 1330 Feb, [facility] [place] [facility] [address] [id number] [place] [address]- 9742 Jan, [facility] [place] [facility] [address] [id number] [place] [address]- 8235 Jan, [facility] [place] [facility] [address] [facility] [id number] [place] [address]- 9177 Jan, [facility] [place] [facility] [address] [facility] [id number] [place] [address]- 5740 Jan, [facility] [place] [facility] [address] [id number] [place] [address]- 5636 13 Jan, 2012 [facility] [place] [facility] [address] [id number] [place] [address]- 1386 Jan, [facility] [place] [facility] [address] [id number] [place] [address] 2546 Jan, [facility] [place] [facility] [address] [id number] [place] [address]- 7446 Jan, [facility] [place] [facility] [address] [id number] [place] [address] Dec, [facility] [place] [facility] [address] [id number] [place] [address] Dec, [facility] [place] [facility] [address] [id number] [place] [address] Dec, [facility] [place] [facility] [address] [id number] [place] [address] Dec, [facility] [place] [facility] [address] [id number] [place] [address] Oct, [facility] [place] [facility] [address] [id number] [place] [address] Sep, [facility] [place] [facility] [address] [id number] [place] [address] Sep, [facility] [place] [facility] [address] [id number] [place] [address] Sep, [facility] [place] [facility] [address] [id number] [place] [address] Sep, [facility] [place] [facility] [address] [id number] [place] [address] Jun, [facility] [place] [facility] [address] [id number] [place] [address] May, [facility] [place] [facility] [address] [id number] [place] [address] 14 Apr, 2011 [facility] [place] [facility] [address] [id number] [place] [address] 09 Apr, 2011 [facility] [place] [facility] [address] [id number] [place] [address] 03 Apr, 2011 [facility] [place] [facility] [address] [facility] [id number] [place] [address]16 12 Feb, 2011 [facility] [place] [facility] [address] [id number] [place] [address] 28[address] Feb, [facility] [place] [facility] [address] [id number] [place] [address] 30 Jan, 2011 [facility] [place] [facility] [address] [facility] [id number] [place] [address] 9437 Jan, [facility] [place] [facility] [address] [facility] [id number] [place] [address] 8850 Jan, [facility] [place] [facility] [address] [id number] [place] [address] 5[address] 31 Feb, 2010 [facility] [place] [facility] [address] [id number] [place] [address] 7560 30 Feb, 2010 [facility] [place] [facility] [address] [facility] [id number] [place] [address] 30 Feb, 2010 [facility] [place] [facility] [address] [facility] [id number] [place] [address] 30 Feb, 2010 [facility] [place] [facility] [address] [id number] [place] [address] 2548 27 Feb, 2010 [facility] [place] [facility] [address] [id number] [place] [address] 2546 23 Feb, 2010 [facility] [place] [facility] [address] [facility] [id number] [place] [address] 2548 20 Feb, 2010 [facility] [place] [facility] [address] [facility] [id number] [place] [address] 2546 18 Feb, 2010 [facility] [place] [facility] [id number] [address] Feb, [facility] [place] [id number] [address] Feb, [facility] [place] [id number] [id number] Jan, [facility] [place] [id number] [address] Dec, [facility] [place] [id number] [place] [address] Nov, [facility] [place] [id number] [place] [address] Mar, [facility] [place] [id number] [place] [address]19726- [address] Jan, [facility] [place] [id number] [place] [address]- [address] Dec, [facility] [place] [id number] [address] Dec, [facility] [place] [id number] [address] Sep, [facility] [place] [id number] [address] Jun, [facility] [place] [id number] [address] Mar, [facility] [facility] [place] [id number] [address] Jan, IMMUNIZATIONS No Known Immunizations SOCIAL HISTORY Never Assessed REASON FOR VISIT PLAN OF CARE VITAL SIGNS MEDICATIONS Medication Instructions Dosage Frequency Start Date End Date Duration Status Propranolol HCl 20 mg Orally twice a day 1 tablet on an empty stomach 12h 17 Oct, 2017 30 day(s) Active RESULTS No Results PROCEDURES No Known procedures [...]
--- OUTSIDE RECORDS SUMMARY | 2017-12-22 06:45 | XMS REPORT ---
Author Author DAY HUGHES [facility] Address [address] [place] [address] Care Team Providers Care Executive Vice President Of Sales Name Role Phone DAY HUGHES Unavailable PROBLEMS Type Condition ICD9-CM Code OQD13-ZQ Code Onset Dates Condition Status SNOMED Code Problem CVA (cerebral vascular accident) I63.9 Active 737762881 Problem 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 844360160 Problem Dysfunction of right eustachian tube H69.81 Active 54225070 Problem Cataracts, bilateral H26.9 Active 09517991 Problem Hyperlipemia E78.5 Active 57663640 Problem Lung nodule, solitary R91.1 Active 303984645 Problem Essential hypertension I10 Active 29491401 Problem Peripheral vascular disease, unspecified I73.9 Active 337290208 Problem Lymphocytosis D72.820 Active 92173625 Problem Diverticulitis of intestine without perforation or abscess without bleeding, unspecified part of intestinal tract K57.92 Active 842917271 Problem Iron deficiency anemia due to chronic blood loss D50.0 Active 645768074 ALLERGIES No Information ENCOUNTERS Encounter Location Date Diagnosis [place] [address], [place] [address] Oct, Lung nodule, solitary R91.1 [facility] [address], [place] [address] Oct, [facility] [id number] [place] [address]4224- 0040 Oct, [facility] [address] [place] [address]79- 6248 Oct, [facility] [address], [place] [address] Sep, [place] [address] [id number] [place] [address]255- 6[address] Aug, [place] [address] [address] July, Arthralgia, unspecified joint M25.50 ; Essential hypertension I10 ; Seborrheic keratosis L82.1 and LLQ abdominal pain R10.32 [place] [address] [address] Feb, Arthralgia, unspecified joint M25.50 [place] [address] [address]- [address] Feb, Arthralgia, unspecified joint M25.50 [place] [address] [address]66- 7447 Dec, Arthralgia, unspecified joint M25.50 [place] [address] [address]- 8[address] Dec, Right flank pain R10.9 ; Left foot pain M79.672 ; Arthralgia , unspecified joint M25.50 and Encounter for immunization Z23 [place] [address] [address] [id number] [place] [address]- 7961 Dec, CVA (cerebral vascular accident) I63.9 [place] [address] [address]- [address] Dec, RUQ abdominal pain R10.11 [place] [address] 99997- 5781 Dec, Right lower quadrant pain R10.31 ; Diverticulitis of intestine without perforation or abscess without bleeding, unspecified part of intestinal tract K57.92 and Internal hemorrhoids K64.8 [place] [address] [id number] [place] [address] 56729- 9562 Nov, [place] [address] 23152- 9513 Oct, [place] [address] [address] [id number] [place] [address] 53341- 7770 Aug, Iron deficiency anemia due to chronic blood loss D50.0 [place] [address] [id number] [place] [address] 97742- 7518 Aug, Peripheral vascular disease, unspecified I73.9 and Colitis K52.9 [place] [address] 12853- [address]7 Aug, H/O: GI bleed Z87.19 [place] [address] 0[address]80- 2973 Aug, CVA (cerebral vascular accident) I63.9 [place] [address] [address] [id number] [place] [address] 36671- 1940 Aug, RUQ abdominal pain R10.11 [place] [address] [id number] [place] [address] 72087- 3879 July, RUQ abdominal pain R10.11 and Lymphocytosis D72.820 [place] [address] [id number] [place] [address] 34228- 5902 July, [place] [id number] [place] [address] 30953- 7757 July, Colitis K52.9 [facility] [id number] [place] [address] [id number] July, [place] [address] [id number] [place] [address] 69379- 0667 Jun, Right flank pain R10.9 [place] [address] [id number] [place] [address] 10869- 7834 May, Urinary tract infection without hematuria, site unspecified N39.0 and Right flank pain R10.9 [place] [address] [id number] [place] [address] 55099- 9124 22 Dec, 2016 Acute non-recurrent maxillary sinusitis J01.00 and Need for hepatitis C screening test Z11.59 [facility] [id number] [place] [address] [id number] Jan, Dental examination Z01.20 [facility] [id number] [place] [address] [id number] Dec, Dental examination Z01.20 [facility] [id number] [place] [address] [id number] Dec, Dental examination Z01.20 [facility] [id number] [place] [address] 94968- 5906 Dec, [facility] [id number] [place] [address] 69331- 9726 Dec, [facility] [id number] [place] [address] [id number] Dec, Dental examination Z01.20 [facility] [id number] [place] [address] 44603- 4056 Nov, [facility] [id number] [place] [address] [id number] Nov, Dental examination Z01.20 [facility] [id number] [place] [address] 494336- 0956 Oct, Arthralgia, unspecified joint M25.50 and Essential hypertension I10 [facility] [id number] [place] [address] 609709- 1466 Oct, [facility] [address] [place] [address] 586141 -4441 Sep, Bilateral otitis media, unspecified chronicity, unspecified otitis media type H66.93 [facility] [id number] [place] [address] [id number] Sep, Dental examination Z01.20 [facility] [address] [place] [address] [id number] Aug, Dental examination V72.2 [facility] [id number] [place] [address] 67908- 9860 14 Aug, 2015 Essential hypertension I10 and Muscle cramping R25.2 [place] [address] 36459- 9999 09 Aug, 2015 Tension-type headache, not intractable, unspecified chronicity pattern G44.209 ; Muscle cramping R25.2 and Right leg pain M79.604 [facility] [address] [id number] July, Dental examination Z01.20 [facility] [address] [id number] July, Encounter for dental examination and cleaning without abnormal findings Z01.20 and Dental caries K02.9 [facility] [address] [id number] Jun, Encounter for dental examination Z01.20 [facility] [address] 55791- 3923 Apr, [facility] [address] 47141 -6309 Apr, Bronchitis J40 [place] [address] 91169- 4196 09 Feb, 2015 Hyperlipemia E78.5 ; Carotid arterial disease I77.9 ; Tobacco use Z72.0 ; Hypertension I10 ; RBBB I45.10 and CVA (cerebral vascular accident) I63.9 [place] [id number] [place] [address] 73484- 1149 03 Feb, 2015 Status post CVA Z86.73 ; Dysfunction of right eustachian tube H69.81 and Essential hypertension I10 [place] [address] 07242- 2036 Dec, Encounter for immunization Z23 [place] [address] 92659- 4877 Oct, PVD (peripheral vascular disease) 443.9 and Weight loss 783.21 [place] [address] [place] [address] 28477- 0814 Oct, PVD (peripheral vascular disease) 443.9 and Weight loss 783.21 [place] [address] [place] [id number] [place] [address] 41830- 9423 Aug, Hyperlipidemia 272.4 ; Carotid arterial disease 447.9 ; Tobacco dependency 305.1 ; Hypertension 401.9 ; RBBB 426.4 and CVA (cerebral infarction) 434.91 [place] [id number] [place] [address] 69230- 3265 Aug, [address] [address]- 9650 Aug, 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 [place] [id number] [place] [address] 40537- 0281 July, Chest pain, unspecified 786.50 ; Occlusion [...] for prophylactic vaccination and inoculation, Influenza V04.81 [address] [place] [address] 93585- 2503 Jun, [facility] [place] [facility] [address] [id number] [place] [address]- 3653 Jun, [facility] [place] [facility] [address] [id number] [place] [address]- 8527 May, [facility] [place] [facility] [address] [id number] [place] [address]- 5821 May, [facility] [place] [facility] [address] [id number] [place] [address]- 5352 May, [facility] [place] [facility] [address] [id number] [place] [address]- 8976 May, [facility] [place] [facility] [address] [id number] [place] [address]- 0854 Mar, [facility] [place] [facility] [address] [id number] [place] [address]- 1539 Mar, [facility] [place] [facility] [address] [id number] [place] [address]- 6435 Mar, [facility] [place] [facility] [address] [id number] [place] [address]- 0345 Mar, [facility] [place] [facility] [address] [id number], [place] [address]- 2190 Mar, [facility] [place] [facility] [address] [id number], [place] [address]- 9150 Mar, [facility] [place] [facility] [address] [id number], [place] [address]- 4773 Mar, [facility] [place] [facility] [address] [id number] [place] [address]- 1200 Mar, [facility] [place] [facility] [address] [id number], [place] [address]- 2595 Mar, [facility] [place] [facility] [address] [id number] [place] [address]- 0713 Mar, [facility] [place] [facility] [address] [id number] [place] [address]- 0414 Feb, [facility] [place] [facility] [address] [id number] [place] 38[address] Feb, [facility] [place] [facility] [address] [id number] [place] 0969 Feb, [facility] [place] [facility] [address] [id number] [place] [address]- 4360 Feb, [facility] [place] [facility] [address] [id number] [place] 9[address] Feb, [facility] [place] [facility] [address] [id number] [place] 9933 Feb, [facility] [place] [facility] [address] [id number] [place] [address]- 1445 Feb, [facility] [place] [facility] [address] [id number] [place] [address]- 0561 Feb, [facility] [place] [facility] [address] [id number] [place] [address]- 7840 Jan, [facility] [place] [facility] [address] [id number] [place] [address]- 6749 Jan, [facility] [place] [facility] [address] [id number] [place] [address]- 1985 Nov, [facility] [place] [facility] [address] [id number] [place] [address]- 0954 Nov, [facility] [place] [facility] [address] [id number] [place] [address]- 5944 Sep, [facility] [place] [facility] [address] [id number] [place] [address]- 7055 Sep, [facility] [place] [facility] [address] [id number] [place] 5018 Sep, [facility] [place] [facility] [address] [id number] [place] [address]- 9721 Sep, [facility] [place] [facility] [address] [id number] [place] [address]- 8255 Aug, [facility] [place] [facility] [address] [id number] [place] [address]- 4316 Aug, [facility] [place] [facility] [address] [id number] [place] [address]- 9643 Aug, [facility] [place] [facility] [address] [id number] [place] [address]- 5218 Aug, [facility] [place] [facility] [address] [id number] [place] [address]- 8811 Aug, [facility] [place] [facility] [address] [id number] [place] [address]- 9767 Aug, [facility] [place] [facility] [address] [id number] [place] [address]- 4785 July, [facility] [place] [facility] [address] [id number] [place] [address]- 9588 July, [facility] [place] [facility] [address] [id number] [place] [address]- 1205 July, [facility] [place] [facility] [address] [id number] [place] [address]- 5288 July, [facility] [place] [facility] [address] [id number] [place] [address]- 7655 Jun, [facility] [place] [facility] [address] [id number] [place] [address]- 0776 Jun, [facility] [place] [facility] [address] [id number] [place] [address]- 9195 Apr, [facility] [place] [facility] [address] [id number] [place] [address]- 9220 Apr, [facility] [place] [facility] [address] [id number] [place] [address]- 0401 Apr, [facility] [place] [facility] [address] [id number], [place] [address]- 0074 Apr, [facility] [address] [id number] [place] [address]- 0175 Apr, [facility] [place] [facility] [address] [id number] [place] [address]- 2460 Apr, [facility] [place] [facility] [address] [facility] [id number] [place] [address]- 0793 Mar, [facility] [place] [facility] [address] [id number] [place] [address]- 0077 Mar, [facility] [place] [facility] [address] [id number] [place] [address]- 5512 Mar, [facility] [place] [facility] [address] [id number] [place] [address]- 5201 Mar, [facility] [address] [facility] [id number] [place] [address]- 9461 Mar, [facility] [place] [facility] [address] [id number] [place] [address]- 9955 Feb, [facility] [address] [id number] [place] [address]- 3214 Feb, [facility] [place] [facility] [address] [facility] [id number] [place] [address]- 1134 Feb, [facility] [place] [facility] [address] [id number] [place] [address]- 9295 Feb, [facility] [place] [facility] [address] [id number], [place] [address]- 9977 Feb, [facility] [place] [facility] [address] [id number] [place] [address]- 0678 Feb, [facility] [place] [facility] [address] [facility] [id number] [place] [address]- 7787 06 Feb, 2013 [facility] [place] [facility] [address] [facility] [id number] [place] [address]- 5350 Feb, [facility] [place] [facility] [address] [id number] [place] [address]- 4686 Feb, [facility] [place] [facility] [address] [id number] [place] [address]- 9558 Feb, [facility] [place] [facility] [address] [id number] [place] [address]- 5717 Feb, [facility] [place] [facility] [address] [id number] [place] [address]- 7117 Feb, [facility] [place] [facility] [address] [id number] [place] [address]- 1524 Jan, [facility] [place] [facility] [address] [id number] [place] [address]- 3225 Jan, [facility] [place] [facility] [address] [id number] [place] [address]- 2313 Jan, [facility] [place] [facility] [address] [id number] [place] [address]- 7599 Jan, [facility] [place] [facility] [address] [id number] [place] [address]- 2299 Jan, [facility] [place] [facility] [address] [id number] [place] [address]- 9797 Jan, [facility] [place] [facility] [address] [id number] [place] [address]- 2609 Jan, [facility] [place] [facility] [address] [id number] [place] [address]- 9839 Jan, [facility] [place] [facility] [address] [id number] [place] [address]- 6770 Jan, [facility] [place] [facility] [address] [id number] [place] [address]- 5723 Jan, [facility] [place] [facility] [address] [id number] [place] [address]- 4831 Jan, [facility] [place] [facility] [address] [id number] [place] [address]- 1188 Jan, [facility] [place] [facility] [address] [id number] [place] [address]- 6720 Jan, [facility] [place] [facility] [address] [id number] [place] [address]- 6319 Jan, [facility] [place] [facility] [address] [id number] [place] [address] 2549 Jan, [facility] [place] [facility] [address] [id number] [place] [address]- 0896 Dec, [facility] [place] [facility] [address] [id number] [place] [address]- 2429 Dec, [facility] [place] [facility] [address] [id number] [place] [address]- 7936 Dec, [facility] [place] [facility] [address] [id number] [place] [address]- 2459 Dec, [facility] [place] [facility] [address] [id number] [place] [address]- 9318 Oct, [facility] [place] [facility] [address] [id number] [place] [address]- 5621 Oct, [facility] [place] [facility] [address] [id number] [place] [address]- 4776 Oct, [facility] [place] [facility] [address] [id number], [place] [address]- 5974 Sep, [facility] [place] [facility] [address] [id number], [place] [address]- 6494 Aug, [facility] [place] [facility] [address] [id number] [place] [address]- 2546 July, [facility] [place] [facility] [address] [id number], [place] [address]- 1256 July, [facility] [place] [facility] [address] [id number] [place] [address]- 2546 July, [facility] [place] [facility] [address] [id number] [place] [address]- 3095 July, [facility] [address] [id number] [place] [address]- 4124 May, [facility] [place] [facility] [address] [id number] [place] [address]- 2676 May, [facility] [address] [id number] [place] [address]- 5626 Mar, [facility] [place] [facility] [address] [id number] [place] [address]- 8530 Mar, [facility] [address] [id number] [place] [address]- 2706 Mar, [facility] [place] [facility] [address] [id number] [place] [address]- 8938 Feb, [facility] [address] [id number] [place] 1550 Feb, [facility] [place] [facility] [address] [id number] [place] [address]- 7213 Feb, [facility] [place] [facility] [address] [id number] [place] [address]- 5341 Feb, [facility] [address] [facility] [id number] [place] [address]- 8175 Feb, [facility] [place] [facility] [address] [id number] [place] [address]- 2757 Feb, [facility] [place] [facility] [address] [id number] [place] [address]- 6864 Jan, [facility] [place] [facility] [address] [id number] [place] [address]- 5298 Jan, [facility] [place] [facility] [address] [id number] [place] [address]- 8574 Jan, [facility] [place] [facility] [address] [id number] [place] [address]- 1980 Jan, [facility] [place] [facility] [address] [id number] [place] [address]- 1040 Jan, [facility] [place] [facility] [address] [id number] [place] [address]- 2302 Jan, [facility] [place] [facility] [address] [id number] [place] [address]- 5359 Jan, [facility] [place] [facility] [address] [id number] [place] [address]- 7823 Jan, [facility] [place] [facility] [address] [id number] [place] [address]- 0684 Dec, [facility] [place] [facility] [address] [id number] [place] [address]- 5111 Dec, [facility] [place] [facility] [address] [id number] [place] [address]- 5328 Dec, [facility] [place] [facility] [address] [id number] [place] [address]- 7687 Dec, [facility] [place] [facility] [address] [id number] [place] [address]- 8495 Oct, [facility] [place] [facility] [address] [id number] [place] [address]- 0541 Sep, [facility] [place] [facility] [address] [id number] [place] [address]- 2226 Sep, [facility] [place] [facility] [address] [id number] [place] [address] Sep, [facility] [place] [facility] [address] [id number] [place] [address] Sep, [facility] [place] [facility] [address] [id number] [place] [address] Jun, [facility] [place] [facility] [address] [id number] [place] [address] May, [facility] [place] [facility] [address] [id number] [place] [address] 14 Apr, 2011 [facility] [address] [id number] [place] [address] 09 Apr, 2011 [facility] [place] [facility] [address] [id number] [place] [address] 03 Apr, 2011 [facility] [address] [facility] [id number] [place] [address] 12 Feb, 2011 [facility] [place] [facility] [address] [id number] [place] [address] 12 Feb, 2011 [facility] [address] [id number] [place] [address] 30 Jan, 2011 [facility] [place] [facility] [address] [id number] [place] [address] Jan, [facility] [address] [facility] [id number] [place] [address] Jan, [facility] [place] [facility] [address] [facility] [id number] [place] [address] 31 Feb, 2010 [facility] [place] [facility] [address] [facility] [id number] [place] [address] 30 Feb, 2010 [facility] [place] [facility] [address] [facility] [id number] [place] [address] 30 Feb, 2010 [facility] [place] [facility] [address] [facility] [id number] [place] [address] 30 Feb, 2010 [facility] [place] [facility] [address] [id number] [place] [address] 27 Feb, 2010 [facility] [place] [facility] [address] [id number] [place] [address] 23 Feb, 2010 [facility] [place] [facility] [address] [facility] [id number] [place] [address] 20 Feb, 2010 [facility] [place] [facility] [address] [facility] [id number] [place] [address] 18 Feb, 2010 [facility] [place] [facility] [id number] [address] Feb, [facility] [id number] [address] Feb, [facility] [id number], [place] [address] Jan, [facility] [id number], [place] [address] Dec, [facility] [id number], [place] [address] Nov, [facility] [id number], [place] [address] Mar, [facility] [id number], [place] [address] Jan, [facility] [id number], [place] [address] Dec, [facility] [id number], [place] [address] Dec, [facility] [id number], [place] [address] Sep, [facility] [id number] [address] Jun, [facility] [id number] [address] Mar, [facility] [id number] [address] Jan, IMMUNIZATIONS No Known Immunizations SOCIAL HISTORY Never Assessed REASON FOR VISIT Referral PLAN OF CARE VITAL SIGNS MEDICATIONS Unknown [...]
--- OUTSIDE RECORDS SUMMARY | 2017-12-22 06:46 | XMS REPORT ---
Author Author DAY HUGHES [facility] Address [address] [place] [address] Care Team Providers Care Licensed Certified Orthotist Name Role Phone DAY HUGHES Unavailable PROBLEMS Type Condition ICD9-CM Code BJC20-[place]Y Code Onset Dates Condition Status SNOMED Code Problem CVA (cerebral vascular accident) I63.9 Active 313952275 Problem 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 091463947 Problem Dysfunction of right eustachian tube H69.81 Active 41776498 Problem Cataracts, bilateral H26.9 Active 40210205 Problem Hyperlipemia E78.5 Active 74093239 Problem Lung nodule, solitary R91.1 Active 584203919 Problem Essential hypertension I10 Active 86365316 Problem Peripheral vascular disease, unspecified I73.9 Active 393306938 Problem Lymphocytosis D72.820 Active 48554983 Problem Diverticulitis of intestine without perforation or abscess without bleeding, unspecified part of intestinal tract K57.92 Active 754242141 Problem Iron deficiency anemia due to chronic blood loss D50.0 Active 055902689 ALLERGIES No Information ENCOUNTERS Encounter Location Date Diagnosis [place] [address] [address] Oct, Lung nodule, solitary R91.1 [facility] [address] [address] Oct, [facility] [id number] [place] [address]- 2926 Oct, [facility] [id number] [place] [address] 88520- 3581 Oct, [facility] [address] [address] 65[address] Sep, [place] [address] [id number] [place] [address] 33615- 7756 Aug, [place] [address] 6[address]- 1178 July, Arthralgia, unspecified joint M25.50 ; Essential hypertension I10 ; Seborrheic keratosis L82.1 and LLQ abdominal pain R10.32 [place] [address] [address]17- 9249 Feb, Arthralgia, unspecified joint M25.50 [place] [address] 02535- 9270 Feb, Arthralgia, unspecified joint M25.50 [place] [address] 86071- 5216 Dec, Arthralgia, unspecified joint M25.50 [place] [address] 78114- 0836 Dec, Right flank pain R10.9 ; Left foot pain M79.672 ; Arthralgia , unspecified joint M25.50 and Encounter for immunization Z23 [place] [address] [id number] [place] [address] 81261- 9737 Dec, CVA (cerebral vascular accident) I63.9 [place] [address] 86425- 0487 Dec, RUQ abdominal pain R10.11 [place] [address] 12306- 9068 Dec, Right lower quadrant pain R10.31 ; Diverticulitis of intestine without perforation or abscess without bleeding, unspecified part of intestinal tract K57.92 and Internal hemorrhoids K64.8 [place] [id number] [place] [address] 61549- 8021 Nov, [place] [address] 87479- 6823 Oct, [place] [address] [id number] [place] [address] 15782- 2788 Aug, Iron deficiency anemia due to chronic blood loss D50.0 [place] [id number] [place] [address] 63274- 2306 Aug, Peripheral vascular disease, unspecified I73.9 and Colitis K52.9 [place] [address] 57950- 2819 Aug, H/O: GI bleed Z87.19 [place] [address] 93112- 7490 Aug, CVA (cerebral vascular accident) I63.9 [place] [id number] [place] [address] 74947- 7569 Aug, RUQ abdominal pain R10.11 [place] [address] [id number] [place] [address] 37164- 0047 July, RUQ abdominal pain R10.11 and Lymphocytosis D72.820 [place] [address] [id number] [place] [address] 46195- 3968 July, [place] [address] [id number] [place] [address] 99580- 2025 July, Colitis K52.9 [facility] [id number] [place] [address] [id number] July, [place] [id number] [place] [address] 80522- 6048 Jun, Right flank pain R10.9 [place] [id number] [place] [address] 75835- 2266 May, Urinary tract infection without hematuria, site unspecified N39.0 and Right flank pain R10.9 [place] [address] [id number] [place] [address] 88916- 6868 22 Dec, 2016 Acute non-recurrent maxillary sinusitis J01.00 and Need for hepatitis C screening test Z11.59 [facility] [id number] [place] [address] [id number] Jan, Dental examination Z01.20 [facility] [address] [id number] [place] [address] [id number] Dec, Dental examination Z01.20 [facility] [id number] [place] [address] [id number] Dec, Dental examination Z01.20 [facility] [id number] [place] [address] 99057- 7446 Dec, [facility] [id number] [place] [address] 22793- 0346 Dec, [facility] [id number] [place] [address] [id number] Dec, Dental examination Z01.20 [facility] [id number] [place] [address] 78854- 7046 Nov, [facility] [id number] [place] [address] [id number] Nov, Dental examination Z01.20 [facility] [id number] [place] [address] 696787- 9556 Oct, Arthralgia, unspecified joint M25.50 and Essential hypertension I10 [facility] [id number] [place] [address] 601597- 7366 Oct, [facility] [id number] [place] [address] 530249 -3450 Sep, Bilateral otitis media, unspecified chronicity, unspecified otitis media type H66.93 [facility] [id number] [place] [address] [id number] Sep, Dental examination Z01.20 [facility] [address] [place] [address] [id number] Aug, Dental examination V72.2 [facility] [id number] [place] [address] 91342- 6251 14 Aug, 2015 Essential hypertension I10 and Muscle cramping R25.2 [place] [address] 77108- 4310 09 Aug, 2015 Tension-type headache, not intractable, unspecified chronicity pattern G44.209 ; Muscle cramping R25.2 and Right leg pain M79.604 [facility] [address] [id number] July, Dental examination Z01.20 [facility] [address] [id number] July, Encounter for dental examination and cleaning without abnormal findings Z01.20 and Dental caries K02.9 [facility] [address] [id number] Jun, Encounter for dental examination Z01.20 [facility] [address] 80219- 5989 Apr, [facility] [address] 80893 -6723 Apr, Bronchitis J40 [place] [address] 82479- 4358 09 Feb, 2015 Hyperlipemia E78.5 ; Carotid arterial disease I77.9 ; Tobacco use Z72.0 ; Hypertension I10 ; RBBB I45.10 and CVA (cerebral vascular accident) I63.9 [place] [address] [id number] [place] [address] 97200- 3224 03 Feb, 2015 Status post CVA Z86.73 ; Dysfunction of right eustachian tube H69.81 and Essential hypertension I10 [place] [address] 76433- 1554 Dec, Encounter for immunization Z23 [place] [address] 40904- 3284 Oct, PVD (peripheral vascular disease) 443.9 and Weight loss 783.21 [place] [address] [place] [address] 08539- 1687 Oct, PVD (peripheral vascular disease) 443.9 and Weight loss 783.21 [place] [address] [place] [id number] [place] [address] 23472- 9421 Aug, Hyperlipidemia 272.4 ; Carotid arterial disease 447.9 ; Tobacco dependency 305.1 ; Hypertension 401.9 ; RBBB 426.4 and CVA (cerebral infarction) 434.91 [place] [id number] [place] [address] 66859- 4916 Aug, [address] 77488- 9837 Aug, 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 [place] [id number] [place] [address] 68601- 0249 July, Chest pain, unspecified 786.50 ; Occlusion [...] prophylactic vaccination and inoculation, Influenza V04.81 [address] [place] [address] 26535- 1662 Jun, [facility] [place] [facility] [address] [id number] [place] [address]- 2343 Jun, [facility] [place] [facility] [address] [id number] [place] [address]- 5996 May, [facility] [place] [facility] [address] [id number] [place] [address]- 6202 May, [facility] [place] [facility] [address] [id number] [place] [address]- 4268 May, [facility] [place] [facility] [address] [id number] [place] [address]- 3314 May, [facility] [place] [facility] [address] [id number] [place] [address]- 1419 Mar, [facility] [place] [facility] [address] [id number] [place] [address]- 8614 Mar, [facility] [place] [facility] [address] [id number] [place] [address]- 8709 Mar, [facility] [place] [facility] [address] [id number] [place] [address]- 7709 Mar, [facility] [place] [facility] [address] [id number] [address]- 8023 Mar, [facility] [place] [facility] [address] [id number] [place] [address]- 3815 Mar, [facility] [place] [facility] [address] [id number] [place] [address]- 3204 Mar, [facility] [place] [facility] [address] [id number] [place] [address]- 9184 Mar, [facility] [place] [facility] [address] [id number] [address]- 4889 Mar, [facility] [place] [facility] [address] [id number] [place] [address]- 6456 Mar, [facility] [place] [facility] [address] [id number] [place] [address]- 9660 Feb, [facility] [place] [facility] [address] [id number] [place] 6554 Feb, [facility] [place] [facility] [address] [id number] [place] 9614 Feb, [facility] [place] [facility] [address] [id number] [place] [address]- 6294 Feb, [facility] [place] [facility] [address] [id number] [place] 3463 Feb, [facility] [place] [facility] [address] [id number] [place] 3023 Feb, [facility] [place] [facility] [address] [id number] [place] [address]- 3000 Feb, [facility] [place] [facility] [address] [id number] [place] [address]- 6583 Feb, [facility] [place] [facility] [address] [id number] [place] [address]- 1436 Jan, [facility] [place] [facility] [address] [id number] [place] [address]- 7197 Jan, [facility] [place] [facility] [address] [id number] [place] [address]- 8947 Nov, [facility] [place] [facility] [address] [id number] [place] [address]- 6852 Nov, [facility] [place] [facility] [address] [id number] [place] [address]- 0007 Sep, [facility] [place] [facility] [address] [id number] [place] [address]- 6377 Sep, [facility] [place] [facility] [address] [id number] [place] 5953 Sep, [facility] [place] [facility] [address] [id number] [place] [address]- 1305 Sep, [facility] [place] [facility] [address] [id number] [place] [address]- 7422 Aug, [facility] [place] [facility] [address] [id number] [place] [address]- 4406 Aug, [facility] [place] [facility] [address] [id number] [place] [address]- 9943 Aug, [facility] [place] [facility] [address] [id number] [place] [address]- 4177 Aug, [facility] [place] [facility] [address] [id number] [place] [address]- 8739 Aug, [facility] [place] [facility] [address] [id number] [place] [address]- 6643 Aug, [facility] [place] [facility] [address] [id number] [place] [address]- 0103 July, [facility] [place] [facility] [address] [id number] [place] [address]- 1362 July, [facility] [place] [facility] [address] [id number] [place] [address]- 9778 July, [facility] [place] [facility] [address] [id number] [place] [address]- 3719 July, [facility] [place] [facility] [address] [id number] [place] [address]- 9477 Jun, [facility] [place] [facility] [address] [id number] [place] [address]- 2971 Jun, [facility] [place] [facility] [address] [id number] [place] [address]- 0449 Apr, [facility] [place] [facility] [address] [id number] [place] [address]- 1320 Apr, [facility] [place] [facility] [address] [id number] [place] [address]- 6758 Apr, [facility] [place] [facility] [address] [id number] [address]- 1467 Apr, [facility] [address] [id number] [place] [address]- 1038 Apr, [facility] [place] [facility] [address] [id number] [place] [address]- 7667 Apr, [facility] [place] [facility] [address] [facility] [id number] [place] [address]- 5888 Mar, [facility] [place] [facility] [address] [id number] [place] [address]- 5520 Mar, [facility] [place] [facility] [address] [id number] [place] [address]- 7757 Mar, [facility] [place] [facility] [address] [id number] [place] [address]- 6118 Mar, [facility] [address] [facility] [id number] [place] [address]- 3124 Mar, [facility] [place] [facility] [address] [id number] [place] [address]- 5585 Feb, [facility] [address] [id number] [place] [address]- 4648 Feb, [facility] [place] [facility] [address] [facility] [id number] [place] [address]- 4208 Feb, [facility] [place] [facility] [address] [id number] [place] [address]- 1304 Feb, [facility] [place] [facility] [address] [id number] [address]- 4075 Feb, [facility] [place] [facility] [address] [id number] [place] [address]- 6525 Feb, [facility] [place] [facility] [address] [facility] [id number] [place] [address]- 3855 06 Feb, 2013 [facility] [place] [facility] [address] [facility] [id number] [place] [address]- 7425 Feb, [facility] [place] [facility] [address] [id number] [place] [address]- 8211 Feb, [facility] [place] [facility] [address] [id number] [place] [address]- 2037 Feb, [facility] [place] [facility] [address] [id number] [place] [address]- 9144 Feb, [facility] [place] [facility] [address] [id number] [place] [address]- 9230 Feb, [facility] [place] [facility] [address] [id number] [place] [address]- 7528 Jan, [facility] [place] [facility] [address] [id number] [place] [address]- 0647 Jan, [facility] [place] [facility] [address] [id number] [place] [address]- 2324 Jan, [facility] [place] [facility] [address] [id number] [place] [address]- 2546 Jan, [facility] [place] [facility] [address] [id number] [place] [address]- 2300 Jan, [facility] [place] [facility] [address] [id number] [place] [address]- 7128 Jan, [facility] [place] [facility] [address] [id number] [place] [address]- 7169 Jan, [facility] [place] [facility] [address] [id number] [place] [address]- 8492 Jan, [facility] [place] [facility] [address] [id number] [place] [address]- 4539 Jan, [facility] [place] [facility] [address] [id number] [place] [address]- 6141 Jan, [facility] [place] [facility] [address] [id number] [place] [address]- 9826 Jan, [facility] [place] [facility] [address] [id number] [place] [address]- 2555 Jan, [facility] [place] [facility] [address] [id number] [place] [address]- 2657 Jan, [facility] [place] [facility] [address] [id number] [place] [address]- 0900 Jan, [facility] [place] [facility] [address] [id number] [place] [address] 2542 Jan, [facility] [place] [facility] [address] [id number] [place] [address]- 9085 Dec, [facility] [place] [facility] [address] [id number] [place] [address]- 8559 Dec, [facility] [place] [facility] [address] [id number] [place] [address]- 2344 Dec, [facility] [place] [facility] [address] [id number] [place] [address]- 1615 Dec, [facility] [place] [facility] [address] [id number] [place] [address]- 5666 Oct, [facility] [place] [facility] [address] [id number] [place] [address]- 0423 Oct, [facility] [place] [facility] [address] [id number] [place] [address]- 4725 Oct, [facility] [place] [facility] [address] [id number] [address]- 8646 Sep, [facility] [place] [facility] [address] [id number] [place] [address]- 0939 Aug, [facility] [place] [facility] [address] [id number] [place] [address]- 2546 July, [facility] [place] [facility] [address] [id number] [place] [address]- 9316 July, [facility] [place] [facility] [address] [id number] [place] [address]- 2546 July, [facility] [place] [facility] [address] [id number] [place] [address]- 2913 July, [facility] [address] [id number] [place] [address]- 1015 May, [facility] [place] [facility] [address] [id number] [place] [address]- 8126 May, [facility] [address] [id number] [place] [address]- 1795 Mar, [facility] [place] [facility] [address] [id number] [place] [address]- 7940 Mar, [facility] [address] [id number] [place] [address]- 7505 Mar, [facility] [place] [facility] [address] [id number] [place] [address]- 2273 Feb, [facility] [address] [id number] [place] 7413 Feb, [facility] [place] [facility] [address] [id number] [place] [address]- 2970 Feb, [facility] [place] [facility] [address] [id number] [place] [address]- 8599 Feb, [facility] [address] [facility] [id number] [place] 6867 Feb, [facility] [place] [facility] [address] [id number] [place] [address]- 5045 Feb, [facility] [place] [facility] [address] [id number] [place] [address]- 0553 Jan, [facility] [place] [facility] [address] [id number] [place] [address]- 8121 Jan, [facility] [place] [facility] [address] [id number] [place] [address]- 3061 Jan, [facility] [place] [facility] [address] [id number] [place] [address]- 6574 Jan, [facility] [place] [facility] [address] [id number] [place] [address]- 5224 Jan, [facility] [place] [facility] [address] [id number] [place] [address]- 9542 Jan, [facility] [place] [facility] [address] [id number] [place] [address]- 8485 Jan, [facility] [place] [facility] [address] [id number] [place] [address]- 9999 Jan, [facility] [place] [facility] [address] [id number] [place] [address]- 6026 Dec, [facility] [place] [facility] [address] [id number] [place] [address]- 9451 Dec, [facility] [place] [facility] [address] [id number] [place] [address]- 7641 Dec, [facility] [place] [facility] [address] [id number] [place] [address]- 8015 Dec, [facility] [place] [facility] [address] [id number] [place] [address]- 3143 Oct, [facility] [place] [facility] [address] [id number] [place] [address]- 6188 Sep, [facility] [place] [facility] [address] [id number] [place] [address]- 3207 Sep, [facility] [place] [facility] [address] [id number] [place] [address] Sep, [facility] [place] [facility] [address] [id number] [place] [address] Sep, [facility] [place] [facility] [address] [id number] [place] [address] Jun, [facility] [place] [facility] [address] [id number] [place] [address] May, [facility] [place] [facility] [address] [id number] [place] [address] 14 Apr, 2011 [facility] [address] [id number] [place] [address] 09 Apr, 2011 [facility] [place] [facility] [address] [id number] [place] [address] 03 Apr, 2011 [facility] [address] [facility] [id number] [place] [address] 12 Feb, 2011 [facility] [place] [facility] [address] [id number] [place] [address] 12 Feb, 2011 [facility] [address] [id number] [place] [address] 30 Jan, 2011 [facility] [place] [facility] [address] [id number] [place] [address] Jan, [facility] [address] [facility] [id number] [place] [address] Jan, [facility] [place] [facility] [address] [facility] [id number] [place] [address] 31 Feb, 2010 [facility] [place] [facility] [address] [facility] [id number] [place] [address] 30 Feb, 2010 [facility] [place] [facility] [address] [facility] [id number] [place] [address] 30 Feb, 2010 [facility] [place] [facility] [address] [facility] [id number] [place] [address] 30 Feb, 2010 [facility] [place] [facility] [address] [id number] [place] [address] 27 Feb, 2010 [facility] [place] [facility] [address] [id number] [place] [address] 23 Feb, 2010 [facility] [place] [facility] [address] [facility] [id number] [place] [address] 20 Feb, 2010 [facility] [place] [facility] [address] [facility] [id number] [place] [address] 18 Feb, 2010 [facility] [place] [facility] [id number] [address] Feb, [facility] [id number] [address] Feb, [facility] [id number] [address] Jan, [facility] [id number] [address] Dec, [facility] [id number] [address] Nov, [facility] [id number] [place] [address] Mar, [facility] [id number] [address] Jan, [facility] [id number] [place] [address] Dec, [facility] [id number] [address] Dec, [facility] [id number] [address] Sep, [facility] [id number] [address] Jun, [facility] [id number] [address] Mar, [facility] [id number] [address] Jan, IMMUNIZATIONS No Known Immunizations SOCIAL HISTORY Never Assessed REASON FOR VISIT Refill request/Pending pharm add PLAN OF CARE VITAL SIGNS MEDICATIONS Medication Instructions Dosage Frequency Start Date End Date Duration Status Simvastatin 40 MG Orally Once a day 1 tablet 24h 30 days Active RESULTS No Results PROCEDURES No Known procedures INSTRUCTIONS MEDICATIONS ADMINISTERED No Known Medications MEDICAL (GENERAL) HISTORY Type Description Date Medical History Hypertension Medical History Hepatitis at age 19 after being dx with mononucleosis Medical History Renal disease history of nadege stones Medical History prolasped bladder Medical History [...]
--- OUTSIDE RECORDS SUMMARY | 2017-12-22 06:46 | XMS REPORT ---
Author Author DAY HUGHES [facility] Address [address] [place] [address] Care Team Providers Care Truck Hopper Name Role Phone DAY HUGHES Unavailable PROBLEMS Type Condition ICD9-CM Code [id number] Code Onset Dates Condition Status SNOMED Code Problem CVA (cerebral vascular accident) I63.9 Active 954808410 Problem 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 128321384 Problem Dysfunction of right eustachian tube H69.81 Active 55358883 Problem Cataracts, bilateral H26.9 Active 73916837 Problem Hyperlipemia E78.5 Active 75995771 Problem Lung nodule, solitary R91.1 Active 397999840 Problem Essential hypertension I10 Active 46517510 Problem Peripheral vascular disease, unspecified I73.9 Active 997454323 Problem Lymphocytosis D72.820 Active 32164809 Problem Diverticulitis of intestine without perforation or abscess without bleeding, unspecified part of intestinal tract K57.92 Active 971427993 Problem Iron deficiency anemia due to chronic blood loss D50.0 Active 108387032 ALLERGIES No Information ENCOUNTERS Encounter Location Date Diagnosis [place] [address] [address] Oct, Lung nodule, solitary R91.1 [facility], [place] [address] [address] Oct, [facility] [place] [address] [place] [id number] [place] [address] 59652- 0998 Oct, [facility] [place] [id number] [place] [address] 70184- 6414 Oct, [facility] [place] [address] [address] Sep, [place] [address] [place] [id number] [place] [address] 45723- 9462 Aug, [place] [address] [address] July, Arthralgia, unspecified joint M25.50 ; Essential hypertension I10 ; Seborrheic keratosis L82.1 and LLQ abdominal pain R10.32 [place] [address] 74391- 3049 Feb, Arthralgia, unspecified joint M25.50 [place] [address] 47[address]- 0290 Feb, Arthralgia, unspecified joint M25.50 [place] [address] 8[address]53- 0319 Dec, Arthralgia, unspecified joint M25.50 [place] [address] 19310- 0990 Dec, Right flank pain R10.9 ; Left foot pain M79.672 ; Arthralgia , unspecified joint M25.50 and Encounter for immunization Z23 [place] [address] [place] [id number] [place] [address] 07080- 7940 Dec, CVA (cerebral vascular accident) I63.9 [place] [address] 56806- 8824 Dec, RUQ abdominal pain R10.11 [place] [address] 78497- 6653 Dec, Right lower quadrant pain R10.31 ; Diverticulitis of intestine without perforation or abscess without bleeding, unspecified part of intestinal tract K57.92 and Internal hemorrhoids K64.8 [place] [address] [place] [id number] [place] [address] 63774- 9890 Nov, [place] [address] [address] Oct, [place] [address] [place] [id number] [place] [address] 18330- 2737 Aug, Iron deficiency anemia due to chronic blood loss D50.0 [place] [address] [place] [id number] [place] [address] 08228- 1988 Aug, Peripheral vascular disease, unspecified I73.9 and Colitis K52.9 [place] [address] 90945- 4589 Aug, H/O: GI bleed Z87.19 [place] [address] 14763- 0624 Aug, CVA (cerebral vascular accident) I63.9 [place] [address] [place] [id number] [place] [address] 30873- 4224 Aug, RUQ abdominal pain R10.11 [place] [address] [place] [id number] [place] [address] 41044- 8713 July, RUQ abdominal pain R10.11 and Lymphocytosis D72.820 [place] [address] [place] [id number] [place] [address] 12201- 5006 July, [place] [address] [place] [id number] [place] [address] 49829- 1889 July, Colitis K52.9 [facility], [place] [address] [place] [id number] [place] [address] [id number] July, [place] [address] [place] [id number] [place] [address] 07467- 5299 Jun, Right flank pain R10.9 [place] [address] [place] [id number] [place] [address] 93612- 3700 May, Urinary tract infection without hematuria, site unspecified N39.0 and Right flank pain R10.9 [place] [address] [place] [id number] [place] [address] 69347- 7330 22 Dec, 2016 Acute non-recurrent maxillary sinusitis J01.00 and Need for hepatitis C screening test Z11.59 [facility] [id number] [place] [address] [id number] Jan, Dental examination Z01.20 [facility] [address] [id number] [place] [address] [id number] Dec, Dental examination Z01.20 [facility] [address] [place] [id number] [place] [address] [id number] Dec, Dental examination Z01.20 [facility], [place] [address] [place] [address] [id number] [place] [address] 34488- 1606 Dec, [facility], [place] [address] [place] [id number] [place] [address] 68147- 7536 Dec, [facility] [address] [place] [id number] [place] [address] [id number] Dec, Dental examination Z01.20 [facility], [place] [address] [place] [address] [id number] [place] [address] 76075- 8216 Nov, [facility] [address] [id number] [place] [address] [id number] Nov, Dental examination Z01.20 [facility] [place] [address] [place] [id number] [place] [address] 049033- 3216 Oct, Arthralgia, unspecified joint M25.50 and Essential hypertension I10 [facility], [place] [address] [place] [id number] [place] [address] 676522- 6156 Oct, [facility] [id number] [place] [address] 404112 -0278 Sep, Bilateral otitis media, unspecified chronicity, unspecified otitis media type H66.93 [facility] [address] [id number] [place] [address] [id number] Sep, Dental examination Z01.20 [facility] [id number] [place] [address] [id number] Aug, Dental examination V72.2 [facility], [place] [address] [place] [id number] [place] [address] 50054- 9415 14 Aug, 2015 Essential hypertension I10 and Muscle cramping R25.2 [place] [address] 38056- 2856 09 Aug, 2015 Tension-type headache, not intractable, unspecified chronicity pattern G44.209 ; Muscle cramping R25.2 and Right leg pain M79.604 [facility] [address] [id number] July, Dental examination Z01.20 [facility] [address] [id number] July, Encounter for dental examination and cleaning without abnormal findings Z01.20 and Dental caries K02.9 [facility] [address] [id number] Jun, Encounter for dental examination Z01.20 [facility] [place] [address] 66092- 2285 Apr, [facility] [address] 56406 -3835 Apr, Bronchitis J40 [place] [address] 09040- 0083 09 Feb, 2015 Hyperlipemia E78.5 ; Carotid arterial disease I77.9 ; Tobacco use Z72.0 ; Hypertension I10 ; RBBB I45.10 and CVA (cerebral vascular accident) I63.9 [place] [address] [place] [id number] [place] [address] 91999- 3793 03 Feb, 2015 Status post CVA Z86.73 ; Dysfunction of right eustachian tube H69.81 and Essential hypertension I10 [place] [address] 26274- 8421 Dec, Encounter for immunization Z23 [place] [address] 18938- 0842 Oct, PVD (peripheral vascular disease) 443.9 and Weight loss 783.21 [place] [address] [place] [address] 48872- 6800 Oct, PVD (peripheral vascular disease) 443.9 and Weight loss 783.21 [place] [address] [place] [id number] [place] [address] 30222- 9949 Aug, Hyperlipidemia 272.4 ; Carotid arterial disease 447.9 ; Tobacco dependency 305.1 ; Hypertension 401.9 ; RBBB 426.4 and CVA (cerebral infarction) 434.91 [place] [id number] [place] [address] 94487- 6602 Aug, [address] [address]38- 4388 Aug, 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 [place] [id number] [place] [address] 15999- 6836 July, Chest pain, unspecified 786.50 ; Occlusion [...] for prophylactic vaccination and inoculation, Influenza V04.81 [address] [place] [address] 39997- 1134 Jun, [facility] [place] [facility] [address] [id number] [place] [address]- 4326 Jun, [facility] [place] [facility] [address] [id number] [place] [address]- 2183 May, [facility] [place] [facility] [address] [id number] [place] [address]- 1212 May, [facility] [place] [facility] [address] [id number] [place] [address]- 2214 May, [facility] [place] [facility] [address] [id number] [place] [address]- 2536 May, [facility] [place] [facility] [address] [id number] [place] [address]- 0289 Mar, [facility] [place] [facility] [address] [id number] [place] [address]- 6639 Mar, [facility] [place] [facility] [address] [id number] [place] [address]- 0435 Mar, [facility] [place] [facility] [address] [id number] [place] [address]- 7416 Mar, [facility] [place] [facility] [address] [id number] [address]- 1466 Mar, [facility] [place] [facility] [address] [id number] [address]- 1115 Mar, [facility] [place] [facility] [address] [id number] [address]- 2930 Mar, [facility] [place] [facility] [address] [id number] [place] [address]- 5966 Mar, [facility] [place] [facility] [address] [id number] [address]- 0561 Mar, [facility] [place] [facility] [address] [id number] [place] [address]- 4215 Mar, [facility] [place] [facility] [address] [id number] [place] [address]- 8090 Feb, [facility] [place] [facility] [address] [id number] [place] 2472 Feb, [facility] [place] [facility] [address] [id number] [place] 1314 Feb, [facility] [place] [facility] [address] [id number] [place] [address]- 1485 Feb, [facility] [place] [facility] [address] [id number] [place] 8092 Feb, [facility] [place] [facility] [address] [id number] [place] 9215 Feb, [facility] [place] [facility] [address] [id number] [place] [address]- 3583 Feb, [facility] [place] [facility] [address] [id number] [place] [address]- 4083 Feb, [facility] [place] [facility] [address] [id number] [place] [address]- 4570 Jan, [facility] [place] [facility] [address] [id number] [place] [address]- 5138 Jan, [facility] [place] [facility] [address] [id number] [place] [address]- 7382 Nov, [facility] [place] [facility] [address] [id number] [place] [address]- 6435 Nov, [facility] [place] [facility] [address] [id number] [place] [address]- 3012 Sep, [facility] [place] [facility] [address] [id number] [place] [address]- 7434 Sep, [facility] [place] [facility] [address] [id number] [place] 3798 Sep, [facility] [place] [facility] [address] [id number] [place] [address]- 2164 Sep, [facility] [place] [facility] [address] [id number] [place] [address]- 1655 Aug, [facility] [place] [facility] [address] [id number] [place] [address]- 4924 Aug, [facility] [place] [facility] [address] [id number] [place] [address]- 1063 Aug, [facility] [place] [facility] [address] [id number] [place] [address]- 4925 Aug, [facility] [place] [facility] [address] [id number] [place] [address]- 5948 Aug, [facility] [place] [facility] [address] [id number] [place] [address]- 4768 Aug, [facility] [place] [facility] [address] [id number] [place] [address]- 2669 July, [facility] [place] [facility] [address] [id number] [place] [address]- 1651 July, [facility] [place] [facility] [address] [id number] [place] [address]- 3560 July, [facility] [place] [facility] [address] [id number] [place] [address]- 1029 July, [facility] [place] [facility] [address] [id number] [place] [address]- 8908 Jun, [facility] [place] [facility] [address] [id number] [place] [address]- 7576 Jun, [facility] [place] [facility] [address] [id number] [place] [address]- 5234 Apr, [facility] [place] [facility] [address] [id number] [place] [address]- 3357 Apr, [facility] [place] [facility] [address] [id number] [place] [address]- 1870 Apr, [facility] [place] [facility] [address] [id number] [address]- 0930 Apr, [facility] [address] [id number] [place] [address]- 7604 Apr, [facility] [place] [facility] [address] [id number] [place] [address]- 7095 Apr, [facility] [place] [facility] [address] [facility] [id number] [place] [address]- 2155 Mar, [facility] [place] [facility] [address] [id number] [place] [address]- 8518 Mar, [facility] [place] [facility] [address] [id number] [place] [address]- 3811 Mar, [facility] [place] [facility] [address] [id number] [place] [address]- 8125 Mar, [facility] [address] [facility] [id number] [place] [address]- 3024 Mar, [facility] [place] [facility] [address] [id number] [place] [address]- 4102 Feb, [facility] [address] [id number] [place] [address]- 8048 Feb, [facility] [place] [facility] [address] [facility] [id number] [place] [address]- 4884 Feb, [facility] [place] [facility] [address] [id number] [place] [address]- 0860 Feb, [facility] [place] [facility] [address] [id number] [address]- 9326 Feb, [facility] [place] [facility] [address] [id number] [place] [address]- 1331 Feb, [facility] [place] [facility] [address] [facility] [id number] [place] [address]- 6927 06 Feb, 2013 [facility] [place] [facility] [address] [facility] [id number] [place] [address]- 1604 Feb, [facility] [place] [facility] [address] [id number] [place] [address]- 9722 Feb, [facility] [place] [facility] [address] [id number] [place] [address]- 8112 Feb, [facility] [place] [facility] [address] [id number] [place] [address]- 9272 Feb, [facility] [place] [facility] [address] [id number] [place] [address]- 1404 Feb, [facility] [place] [facility] [address] [id number] [place] [address]- 6245 Jan, [facility] [place] [facility] [address] [id number] [place] [address]- 3608 Jan, [facility] [place] [facility] [address] [id number] [place] [address]- 2465 Jan, [facility] [place] [facility] [address] [id number] [place] [address]- 6293 Jan, [facility] [place] [facility] [address] [id number] [place] [address]- 8015 Jan, [facility] [place] [facility] [address] [id number] [place] [address]- 6669 Jan, [facility] [place] [facility] [address] [id number] [place] [address]- 9522 Jan, [facility] [place] [facility] [address] [id number] [place] [address]- 3751 Jan, [facility] [place] [facility] [address] [id number] [place] [address]- 5026 Jan, [facility] [place] [facility] [address] [id number] [place] [address]- 7527 Jan, [facility] [place] [facility] [address] [id number] [place] [address]- 7818 Jan, [facility] [place] [facility] [address] [id number] [place] [address]- 6899 Jan, [facility] [place] [facility] [address] [id number] [place] [address]- 2535 Jan, [facility] [place] [facility] [address] [id number] [place] [address]- 5272 Jan, [facility] [place] [facility] [address] [id number] [place] [address] 2540 Jan, [facility] [place] [facility] [address] [id number] [place] [address]- 0764 Dec, [facility] [place] [facility] [address] [id number] [place] [address]- 2179 Dec, [facility] [place] [facility] [address] [id number] [place] [address]- 1772 Dec, [facility] [place] [facility] [address] [id number] [place] [address]- 3430 Dec, [facility] [place] [facility] [address] [id number] [place] [address]- 8606 Oct, [facility] [place] [facility] [address] [id number] [place] [address]- 6354 Oct, [facility] [place] [facility] [address] [id number] [place] [address]- 9399 Oct, [facility] [place] [facility] [address] [id number], [place] [address]- 0940 Sep, [facility] [place] [facility] [address] [id number], [place] [address]- 5655 Aug, [facility] [place] [facility] [address] [id number] [place] [address]- 2546 July, [facility] [place] [facility] [address] [id number] [address]- 3006 July, [facility] [place] [facility] [address] [id number] [place] [address]- 2546 July, [facility] [place] [facility] [address] [id number] [place] [address]- 4248 July, [facility] [address] [id number] [place] [address]- 2929 May, [facility] [place] [facility] [address] [id number] [place] [address]- 9416 May, [facility] [address] [id number] [place] [address]- 2132 Mar, [facility] [place] [facility] [address] [id number] [place] [address]- 8806 Mar, [facility] [address] [id number] [place] [address]- 2929 Mar, [facility] [place] [facility] [address] [id number] [place] [address]- 6096 Feb, [facility] [address] [id number] [place] 3267 Feb, [facility] [place] [facility] [address] [id number] [place] [address]- 9947 Feb, [facility] [place] [facility] [address] [id number] [place] [address]- 1480 Feb, [facility] [address] [facility] [id number] [place] 7458 Feb, [facility] [place] [facility] [address] [id number] [place] [address]- 8924 Feb, [facility] [place] [facility] [address] [id number] [place] [address]- 0642 Jan, [facility] [place] [facility] [address] [id number] [place] [address]- 1812 Jan, [facility] [place] [facility] [address] [id number] [place] [address]- 4498 Jan, [facility] [place] [facility] [address] [id number] [place] [address]- 2818 Jan, [facility] [place] [facility] [address] [id number] [place] [address]- 4719 Jan, [facility] [place] [facility] [address] [id number] [place] [address]- 7640 Jan, [facility] [place] [facility] [address] [id number] [place] [address]- 9981 Jan, [facility] [place] [facility] [address] [id number] [place] [address]- 7055 Jan, [facility] [place] [facility] [address] [id number] [place] [address]- 3716 Dec, [facility] [place] [facility] [address] [id number] [place] [address]- 8253 Dec, [facility] [place] [facility] [address] [id number] [place] [address]- 0858 Dec, [facility] [place] [facility] [address] [id number] [place] [address]- 4951 Dec, [facility] [place] [facility] [address] [id number] [place] [address]- 0651 Oct, [facility] [place] [facility] [address] [id number] [place] [address] Sep, [facility] [place] [facility] [address] [id number] [place] [address] Sep, [facility] [place] [facility] [address] [id number] [place] [address] Sep, [facility] [place] [facility] [address] [id number] [place] [address] Sep, [facility] [place] [facility] [address] [id number] [place] [address] Jun, [facility] [place] [facility] [address] [id number] [place] [address] May, [facility] [place] [facility] [address] [id number] [place] [address] 14 Apr, 2011 [facility] [address] [id number] [place] [address] 09 Apr, 2011 [facility] [place] [facility] [address] [id number] [place] [address] 03 Apr, 2011 [facility] [address] [facility] [id number] [place] [address] 12 Feb, 2011 [facility] [place] [facility] [address] [id number] [place] [address] 12 Feb, 2011 [facility] [address] [id number] [place] [address] 30 Jan, 2011 [facility] [place] [facility] [address] [id number] [place] [address] Jan, [facility] [address] [facility] [id number] [place] [address] Jan, [facility] [place] [facility] [address] [facility] [id number] [place] [address] 31 Feb, 2010 [facility] [place] [facility] [address] [facility] [id number] [place] [address] 30 Feb, 2010 [facility] [place] [facility] [address] [facility] [id number] [place] [address] 30 Feb, 2010 [facility] [place] [facility] [address] [facility] [id number] [place] [address] 2544 30 Feb, 2010 [facility] [place] [facility] [address] [id number] [place] [address]- [address]46 27 Feb, 2010 [facility] [place] [facility] [address] [id number] [place] [address] 254 23 Feb, 2010 [facility] [place] [facility] [address] [facility] [id number] [place] [address] 20 Feb, 2010 [facility] [place] [facility] [address] [facility] [id number] [place] [address] 18 Feb, 2010 [facility] [place] [facility] [id number] [address] Feb, [facility] [place] [id number] [address] Feb, [facility] [place] [id number] [address] Jan, [facility] [place] [id number] [address] Dec, [facility] [place] [id number] [address] Nov, [facility] [place] [id number] [place] [address] Mar, [facility] [place] [id number] [address] Jan, [facility] [place] [id number] [place] [address] Dec, [facility] [place] [id number] [address] Dec, [facility] [place] [id number] [address] Sep, [facility] [place] [id number] [address] Jun, [facility] [place] [id number] [address] Mar, [facility] [place] [id number] [address] Jan, IMMUNIZATIONS No Known Immunizations SOCIAL HISTORY Never Assessed REASON FOR VISIT Refill request PLAN OF CARE VITAL SIGNS MEDICATIONS Medication Instructions Dosage Frequency Start Date End Date Duration Status Protonix 40 MG Orally Once a day 1 [...]
--- OUTSIDE RECORDS SUMMARY | 2017-12-22 06:46 | XMS REPORT ---
Author Author DAY HUGHES [facility] Address [address] [place] [address] Care Team Providers Care [facility] Mortician Name Role Phone DAY HUGHES Unavailable PROBLEMS Type Condition ICD9-CM Code [id number] Code Onset Dates Condition Status SNOMED Code Problem CVA (cerebral vascular accident) I63.9 Active 631761619 Problem 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 465207009 Problem Dysfunction of right eustachian tube H69.81 Active 97223064 Problem Cataracts, bilateral H26.9 Active 58443731 Problem Hyperlipemia E78.5 Active 98511419 Problem Lung nodule, solitary R91.1 Active 121697423 Problem Essential hypertension I10 Active 29613409 Problem Peripheral vascular disease, unspecified I73.9 Active 400476802 Problem Lymphocytosis D72.820 Active 60867766 Problem Diverticulitis of intestine without perforation or abscess without bleeding, unspecified part of intestinal tract K57.92 Active 293809071 Problem Iron deficiency anemia due to chronic blood loss D50.0 Active 676221089 ALLERGIES No Information ENCOUNTERS Encounter Location Date Diagnosis [place] [address], [place] [address] Oct, Lung nodule, solitary R91.1 [facility] [address], [place] [address] Oct, [facility] [address] [place] [id number] [place] [address] 28484- 2993 Oct, [facility] [id number] [place] [address] 69609- 4292 Oct, [facility] [address], [place] [address] Sep, [place] [address] [place] [id number] [place] [address] 76468- 0210 Aug, [place] [address] [address]38- 5468 July, Arthralgia, unspecified joint M25.50 ; Essential hypertension I10 ; Seborrheic keratosis L82.1 and LLQ abdominal pain R10.32 [place] [address] 13882- 3853 Feb, Arthralgia, unspecified joint M25.50 [place] [address] 69667- 1615 Feb, Arthralgia, unspecified joint M25.50 [place] [address] 35249- 4632 Dec, Arthralgia, unspecified joint M25.50 [place] [address] 59654- 5508 Dec, Right flank pain R10.9 ; Left foot pain M79.672 ; Arthralgia , unspecified joint M25.50 and Encounter for immunization Z23 [place] [address] [place] [id number] [place] [address] 73817- 6425 Dec, CVA (cerebral vascular accident) I63.9 [place] [address] 73741- 6393 Dec, RUQ abdominal pain R10.11 [place] [address] 97916- 8824 Dec, Right lower quadrant pain R10.31 ; Diverticulitis of intestine without perforation or abscess without bleeding, unspecified part of intestinal tract K57.92 and Internal hemorrhoids K64.8 [place] [address] [place] [id number] [place] [address] 36506- 5929 Nov, [place] [address] 43064- 6142 Oct, [place] [address] [place] [id number] [place] [address] 33543- 6924 Aug, Iron deficiency anemia due to chronic blood loss D50.0 [place] [address] [place] [id number] [place] [address] 81094- 7108 Aug, Peripheral vascular disease, unspecified I73.9 and Colitis K52.9 [place] [address] 50722- 0163 Aug, H/O: GI bleed Z87.19 [place] [address] 39418- 7589 Aug, CVA (cerebral vascular accident) I63.9 [place] [address] [place] [id number] [place] [address] 79576- 7484 Aug, RUQ abdominal pain R10.11 [place] [address] [place] [id number] [place] [address] 05252- 5636 July, RUQ abdominal pain R10.11 and Lymphocytosis D72.820 [place] [address] [place] [id number] [place] [address] 35505- 5442 July, [place] [address] [place] [id number] [place] [address] 62941- 9262 July, Colitis K52.9 [facility] [address] [place] [id number] [place] [address] [id number] July, [place] [address] [place] [id number] [place] [address] 80994- 5598 Jun, Right flank pain R10.9 [place] [address] [place] [id number] [place] [address] 90395- 3420 May, Urinary tract infection without hematuria, site unspecified N39.0 and Right flank pain R10.9 [place] [address] [place] [id number] [place] [address] 80356- 0872 22 Dec, 2016 Acute non-recurrent maxillary sinusitis J01.00 and Need for hepatitis C screening test Z11.59 [facility] [id number] [place] [address] [id number] Jan, Dental examination Z01.20 [facility] [facility] [id number] [place] [address] [id number] Dec, Dental examination Z01.20 [facility] [address] [place] [id number] [place] [address] [id number] Dec, Dental examination Z01.20 [facility] [id number] [place] [address] 48087- 5606 Dec, [facility] [address] [id number] [place] [address] 66268- 3046 Dec, [facility] [id number] [place] [address] [id number] Dec, Dental examination Z01.20 [facility] [id number] [place] [address] 62856- 3326 Nov, [facility] [address] [id number] [place] [address] [id number] Nov, Dental examination Z01.20 [facility] [address] [address] [id number] [place] [address] 340671- 9276 Oct, Arthralgia, unspecified joint M25.50 and Essential hypertension I10 [facility] [address] [address] [id number] [place] [address] 903366- 9816 Oct, [facility] [id number] [place] [address] 593403 -1665 Sep, Bilateral otitis media, unspecified chronicity, unspecified otitis media type H66.93 [facility] [address] [id number] [place] [address] [id number] Sep, Dental examination Z01.20 [facility] [id number] [place] [address] [id number] Aug, Dental examination V72.2 [facility] [id number] [place] [address] 34938- 3034 14 Aug, 2015 Essential hypertension I10 and Muscle cramping R25.2 [place] [address] 28877- 8177 09 Aug, 2015 Tension-type headache, not intractable, unspecified chronicity pattern G44.209 ; Muscle cramping R25.2 and Right leg pain M79.604 [facility] [address] [id number] July, Dental examination Z01.20 [facility] [address] [id number] July, Encounter for dental examination and cleaning without abnormal findings Z01.20 and Dental caries K02.9 [facility] [address] [id number] Jun, Encounter for dental examination Z01.20 [facility] [address] 39213- 5660 Apr, [facility] [address] 29527 -5817 Apr, Bronchitis J40 [place] [address] 74975- 9565 09 Feb, 2015 Hyperlipemia E78.5 ; Carotid arterial disease I77.9 ; Tobacco use Z72.0 ; Hypertension I10 ; RBBB I45.10 and CVA (cerebral vascular accident) I63.9 [place] [address] [place] [id number] [place] [address] 25130- 8958 03 Feb, 2015 Status post CVA Z86.73 ; Dysfunction of right eustachian tube H69.81 and Essential hypertension I10 [place] [address] 81339- 0245 Dec, Encounter for immunization Z23 [place] [address] 07053- 6965 Oct, PVD (peripheral vascular disease) 443.9 and Weight loss 783.21 [place] [id number] [place] [address] 22570- 0586 Oct, PVD (peripheral vascular disease) 443.9 and Weight loss 783.21 [place] [address] [place] [id number] [place] [address] 89407- 5278 Aug, Hyperlipidemia 272.4 ; Carotid arterial disease 447.9 ; Tobacco dependency 305.1 ; Hypertension 401.9 ; RBBB 426.4 and CVA (cerebral infarction) 434.91 [place] [id number] [place] [address] 38993- 8011 Aug, [address] 54758- 6207 Aug, 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 [place] [id number] [place] [address] 63734- 9359 July, Chest pain, unspecified 786.50 ; Occlusion [...] for prophylactic vaccination and inoculation, Influenza V04.[id number] [place] [address] 66386- 3035 Jun, [facility] [place] [facility] [address] [id number] [place] [address]- 0797 Jun, [facility] [place] [facility] [address] [id number] [place] [address]- 2104 May, [facility] [place] [facility] [address] [id number] [place] [address]- 1810 May, [facility] [place] [facility] [address] [id number] [place] [address]- 9250 May, [facility] [place] [facility] [address] [id number] [place] [address]- 4029 May, [facility] [place] [facility] [address] [id number] [place] [address]- 5771 Mar, [facility] [place] [facility] [address] [id number] [place] [address]- 5913 Mar, [facility] [place] [facility] [address] [id number] [place] [address]- 4213 Mar, [facility] [place] [facility] [address] [id number] [place] [address]- 1440 Mar, [facility] [place] [facility] [address] [id number], [place] [address]- 1413 Mar, [facility] [place] [facility] [address] [id number], [place] [address]- 7325 Mar, [facility] [place] [facility] [address] [id number], [place] [address]- 7427 Mar, [facility] [place] [facility] [address] [id number] [place] [address]- 1371 Mar, [facility] [place] [facility] [address] [id number], [place] [address]- 3618 Mar, [facility] [place] [facility] [address] [id number] [place] [address]- 4268 Mar, [facility] [place] [facility] [address] [id number] [place] [address]- 8938 Feb, [facility] [place] [facility] [address] [id number] [place] 1639 Feb, [facility] [place] [facility] [address] [id number] [place] 0305 Feb, [facility] [place] [facility] [address] [id number] [place] [address]- 9038 Feb, [facility] [place] [facility] [address] [id number] [place] 8842 Feb, [facility] [place] [facility] [address] [id number] [place] 7199 Feb, [facility] [place] [facility] [address] [id number] [place] [address]- 3752 Feb, [facility] [place] [facility] [address] [id number] [place] [address]- 2754 Feb, [facility] [place] [facility] [address] [id number] [place] [address]- 9996 Jan, [facility] [place] [facility] [address] [id number] [place] [address]- 8345 Jan, [facility] [place] [facility] [address] [id number] [place] [address]- 7359 Nov, [facility] [place] [facility] [address] [id number] [place] [address]- 4172 Nov, [facility] [place] [facility] [address] [id number] [place] [address]- 4733 Sep, [facility] [place] [facility] [address] [id number] [place] [address]- 0650 Sep, [facility] [place] [facility] [address] [id number] [place] 8064 Sep, [facility] [place] [facility] [address] [id number] [place] [address]- 2067 Sep, [facility] [place] [facility] [address] [id number] [place] [address]- 7544 Aug, [facility] [place] [facility] [address] [id number] [place] [address]- 8843 Aug, [facility] [place] [facility] [address] [id number] [place] [address]- 2848 Aug, [facility] [place] [facility] [address] [id number] [place] [address]- 3892 Aug, [facility] [place] [facility] [address] [id number] [place] [address]- 5442 Aug, [facility] [place] [facility] [address] [id number] [place] [address]- 7711 Aug, [facility] [place] [facility] [address] [id number] [place] [address]- 0956 July, [facility] [place] [facility] [address] [id number] [place] [address]- 1840 July, [facility] [place] [facility] [address] [id number] [place] [address]- 3518 July, [facility] [place] [facility] [address] [id number] [place] [address]- 7112 July, [facility] [place] [facility] [address] [id number] [place] [address]- 8248 Jun, [facility] [place] [facility] [address] [id number] [place] [address]- 5610 Jun, [facility] [place] [facility] [address] [id number] [place] [address]- 5941 Apr, [facility] [place] [facility] [address] [id number] [place] [address]- 5836 Apr, [facility] [place] [facility] [address] [id number] [place] [address]- 8933 Apr, [facility] [place] [facility] [address] [id number], [place] [address]- 1725 Apr, [facility] [address] [id number] [place] [address]- 3423 Apr, [facility] [place] [facility] [address] [id number] [place] [address]- 8420 Apr, [facility] [place] [facility] [address] [facility] [id number] [place] [address]- 7550 Mar, [facility] [place] [facility] [address] [id number] [place] [address]- 4643 Mar, [facility] [place] [facility] [address] [id number] [place] [address]- 8853 Mar, [facility] [place] [facility] [address] [id number] [place] [address]- 5701 Mar, [facility] [address] [facility] [id number] [place] [address]- 1737 Mar, [facility] [place] [facility] [address] [id number] [place] [address]- 8062 Feb, [facility] [address] [id number] [place] [address]- 6997 Feb, [facility] [place] [facility] [address] [facility] [id number] [place] [address]- 6287 Feb, [facility] [place] [facility] [address] [id number] [place] [address]- 9068 Feb, [facility] [place] [facility] [address] [id number], [place] [address]- 9214 Feb, [facility] [place] [facility] [address] [id number] [place] [address]- 4977 Feb, [facility] [place] [facility] [address] [facility] [id number] [place] [address]- 5604 06 Feb, 2013 [facility] [place] [facility] [address] [facility] [id number] [place] [address]- 8965 Feb, [facility] [place] [facility] [address] [id number] [place] [address]- 1977 Feb, [facility] [place] [facility] [address] [id number] [place] [address]- 5206 Feb, [facility] [place] [facility] [address] [id number] [place] [address]- 3029 Feb, [facility] [place] [facility] [address] [id number] [place] [address]- 7231 Feb, [facility] [place] [facility] [address] [id number] [place] [address]- 0495 Jan, [facility] [place] [facility] [address] [id number] [place] [address]- 0214 Jan, [facility] [place] [facility] [address] [id number] [place] [address]- 9890 Jan, [facility] [place] [facility] [address] [id number] [place] [address]- 8407 Jan, [facility] [place] [facility] [address] [id number] [place] [address]- 2626 Jan, [facility] [place] [facility] [address] [id number] [place] [address]- 7468 Jan, [facility] [place] [facility] [address] [id number] [place] [address]- 8821 Jan, [facility] [place] [facility] [address] [id number] [place] [address]- 7271 Jan, [facility] [place] [facility] [address] [id number] [place] [address]- 6303 Jan, [facility] [place] [facility] [address] [id number] [place] [address]- 2464 Jan, [facility] [place] [facility] [address] [id number] [place] [address]- 0949 Jan, [facility] [place] [facility] [address] [id number] [place] [address]- 6980 Jan, [facility] [place] [facility] [address] [id number] [place] [address]- 6215 Jan, [facility] [place] [facility] [address] [id number] [place] [address]- 4737 Jan, [facility] [place] [facility] [address] [id number] [place] [address] 2547 Jan, [facility] [place] [facility] [address] [id number] [place] [address]- 4736 Dec, [facility] [place] [facility] [address] [id number] [place] [address]- 0096 Dec, [facility] [place] [facility] [address] [id number] [place] [address]- 0079 Dec, [facility] [place] [facility] [address] [id number] [place] [address]- 2938 Dec, [facility] [place] [facility] [address] [id number] [place] [address]- 9569 Oct, [facility] [place] [facility] [address] [id number] [place] [address]- 1309 Oct, [facility] [place] [facility] [address] [id number] [place] [address]- 2860 Oct, [facility] [place] [facility] [address] [id number], [place] [address]- 8349 Sep, [facility] [place] [facility] [address] [id number], [place] [address]- 9551 Aug, [facility] [place] [facility] [address] [id number] [place] [address]- 2546 July, [facility] [place] [facility] [address] [id number], [place] [address]- 3256 July, [facility] [place] [facility] [address] [id number] [place] [address]- 2546 July, [facility] [place] [facility] [address] [id number] [place] [address]- 3389 July, [facility] [address] [id number] [place] [address]- 5284 May, [facility] [place] [facility] [address] [id number] [place] [address]- 5186 May, [facility] [address] [id number] [place] [address]- 3665 Mar, [facility] [place] [facility] [address] [id number] [place] [address]- 9486 Mar, [facility] [address] [id number] [place] [address]- 8916 Mar, [facility] [place] [facility] [address] [id number] [place] [address]- 1960 Feb, [facility] [address] [id number] [place] 5084 Feb, [facility] [place] [facility] [address] [id number] [place] [address]- 6017 Feb, [facility] [place] [facility] [address] [id number] [place] [address]- 1226 Feb, [facility] [address] [facility] [id number] [place] 4154 Feb, [facility] [place] [facility] [address] [id number] [place] [address]- 6915 Feb, [facility] [place] [facility] [address] [id number] [place] [address]- 3106 Jan, [facility] [place] [facility] [address] [id number] [place] [address]- 6871 Jan, [facility] [place] [facility] [address] [id number] [place] [address]- 4747 Jan, [facility] [place] [facility] [address] [id number] [place] [address]- 4348 Jan, [facility] [place] [facility] [address] [id number] [place] [address]- 6493 Jan, [facility] [place] [facility] [address] [id number] [place] [address]- 5138 Jan, [facility] [place] [facility] [address] [id number] [place] [address]- 2041 Jan, [facility] [place] [facility] [address] [id number] [place] [address]- 1517 Jan, [facility] [place] [facility] [address] [id number] [place] [address]- 7294 Dec, [facility] [place] [facility] [address] [id number] [place] [address]- 0556 Dec, [facility] [place] [facility] [address] [id number] [place] [address] Dec, [facility] [place] [facility] [address] [id number] [place] [address] Dec, [facility] [place] [facility] [address] [id number] [place] [address] Oct, [facility] [place] [facility] [address] [id number] [place] [address] Sep, [facility] [place] [facility] [address] [id number] [place] [address] Sep, [facility] [place] [facility] [address] [id number] [place] [address] Sep, [facility] [place] [facility] [address] [id number] [place] [address] Sep, [facility] [place] [facility] [address] [id number] [place] [address] Jun, [facility] [place] [facility] [address] [id number] [place] [address] May, [facility] [place] [facility] [address] [id number] [place] [address] 14 Apr, 2011 [facility] [address] [id number] [place] [address] 09 Apr, 2011 [facility] [place] [facility] [address] [id number] [place] [address] 03 Apr, 2011 [facility] [address] [facility] [id number] [place] [address] 12 Feb, 2011 [facility] [place] [facility] [address] [id number] [place] [address] 12 Feb, 2011 [facility] [address] [id number] [place] [address] 30 Jan, 2011 [facility] [place] [facility] [address] [id number] [place] [address] Jan, [facility] [address] [facility] [id number] [place] [address] Jan, [facility] [place] [facility] [address] [facility] [id number] [place] [address] 31 Feb, 2010 [facility] [place] [facility] [address] [facility] [id number] [place] [address] 30 Feb, 2010 [facility] [place] [facility] [address] [facility] [id number] [place] [address] 30 Feb, 2010 [facility] [place] [facility] [address] [facility] [id number] [place] [address]47 30 Feb, 2010 [facility] [place] [facility] [address] [id number] [place] [address] 27 Feb, 2010 [facility] [place] [facility] [address] [id number] [place] [address] 23 Feb, 2010 [facility] [place] [facility] [address] [facility] [id number] [place] [address] 20 Feb, 2010 [facility] [place] [facility] [address] [facility] [id number] [place] [address] 18 Feb, 2010 [facility] [place] [facility] [id number], [place] [address] Feb, [facility] [id number] [address] Feb, [facility] [id number] [place] [address] Jan, [facility] [id number] [place] [address] Dec, [facility] [id number] [place] [address] Nov, [facility] [id number], [place] [address] Mar, [facility] [id number] [place] [address] Jan, [facility] [id number] [place] [address] Dec, [facility] [id number] [place] [address] Dec, [facility] [id number], [place] [address] Sep, [facility] [id number] [place] [address] Jun, [facility] [id number] [place] [address] Mar, [facility] [id number], [place] [address] Jan, IMMUNIZATIONS No Known Immunizations SOCIAL HISTORY Never Assessed REASON FOR VISIT Patient Update PLAN OF CARE VITAL SIGNS MEDICATIONS Unknown [...]
--- OUTSIDE RECORDS SUMMARY | 2017-12-22 06:47 | XMS REPORT ---
Author Author DAY HUGHES [facility] Address [address] [place] [address] Care Team Providers Care Emt Basic Name Role Phone DAY HUGHES Unavailable PROBLEMS Type Condition ICD9-CM Code DLA46-MY Code Onset Dates Condition Status SNOMED Code Problem Hyperlipemia E78.5 Active 85740092 Problem Dysfunction of right eustachian tube H69.81 Active 89236211 Problem CVA (cerebral vascular accident) I63.9 Active 234277948 Problem Cataracts, bilateral H26.9 Active 14504179 Problem Essential hypertension I10 Active 90852579 Problem Diverticulitis of intestine without perforation or abscess without bleeding, unspecified part of intestinal tract K57.92 Active 363456503 Problem Lymphocytosis D72.820 Active 79653724 Problem 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 493647870 Problem Iron deficiency anemia due to chronic blood loss D50.0 Active 604599188 Problem Peripheral vascular disease, unspecified I73.9 Active 434531750 ALLERGIES Substance Reaction Event Type Date Status Flonase hives and itching Drug Allergy July, Active Gadolinium-containing Contrast Media nausea Non Drug Allergy July, Active ENCOUNTERS Encounter Location Date Diagnosis [facility] [address] [address] Oct, [facility] [address] [address] Oct, [facility] [id number] [place] [address] 33848- 9637 Oct, [facility] [address] [address] Sep, [facility] [id number] [place] [address] 19200- 2615 Aug, [facility] [id number] [place] [address] 23968- 8630 July, Arthralgia, unspecified joint M25.50 ; Essential hypertension I10 ; Seborrheic keratosis L82.1 and LLQ abdominal pain R10.32 [facility] [address] 7[address]48- 0790 Feb, Arthralgia, unspecified joint M25.50 [facility] [address] 75093- 8970 Feb, Arthralgia, unspecified joint M25.50 [facility] [address] 51753- 8434 Dec, Arthralgia, unspecified joint M25.50 [facility] [address] [address]- 1960 Dec, Right flank pain R10.9 ; Left foot pain M79.672 ; Arthralgia , unspecified joint M25.50 and Encounter for immunization Z23 [facility] [address] 15810- 5068 Dec, CVA (cerebral vascular accident) I63.9 [facility] [address] 65255- 7706 Dec, RUQ abdominal pain R10.11 [facility] [address] 84373- 6947 Dec, Right lower quadrant pain R10.31 ; Diverticulitis of intestine without perforation or abscess without bleeding, unspecified part of intestinal tract K57.92 and Internal hemorrhoids K64.8 [facility] [address] 10599- 4290 Nov, [facility] [address] 45719- 1145 Oct, [facility] [address] [place] [address]- 7468 30 Aug, 2016 Iron deficiency anemia due to chronic blood loss D50.0 [facility] [address] 10012- 4961 Aug, Peripheral vascular disease, unspecified I73.9 and Colitis K52.9 [facility] [address] 39617- 2351 14 Aug, 2016 H/O: GI bleed Z87.19 [facility] [address] 78557- 1639 07 Aug, 2016 CVA (cerebral vascular accident) I63.9 [facility] [address] 07644- 2754 Aug, RUQ abdominal pain R10.11 [facility] [id number] [place] [address] 73408- 1670 July, RUQ abdominal pain R10.11 and Lymphocytosis D72.820 [facility] [address] 16399- 0122 July, [facility] [address] 11600- 9397 July, Colitis K52.9 [facility] [address] [id number] July, [facility] [id number] [place] [address] 88503- 0403 Jun, Right flank pain R10.9 [facility] [id number] [place] [address] 98658- 6068 May, Urinary tract infection without hematuria, site unspecified N39.0 and Right flank pain R10.9 [facility] [id number] [place] [address] 53696- 4125 Feb, Acute non-recurrent maxillary sinusitis J01.00 and Need for hepatitis C screening test Z11.59 [facility] [address] [id number] Jan, Dental examination Z01.20 [facility] [id number] [place] [address] [id number] Dec, Dental examination Z01.20 [facility] [address] [place] [address] [id number] Dec, Dental examination Z01.20 [facility] [id number] [place] [address] 55422- 3706 Dec, [facility] [id number] [place] [address] 71998- 6666 Dec, [facility] [id number] [place] [address] [id number] Dec, Dental examination Z01.20 [facility] [address] [place] [address] 57233- 5476 Nov, [facility] [id number] [place] [address] [id number] Nov, Dental examination Z01.20 [facility] [id number] [place] [address] 25505- 5096 Oct, Arthralgia, unspecified joint M25.50 and Essential hypertension I10 [facility] [address] [place] [address] 58119- 7976 Oct, [facility] [id number] [place] [address] 281699 -9094 Sep, Bilateral otitis media, unspecified chronicity, unspecified otitis media type H66.93 [facility] [id number] [place] [address] [id number] Sep, Dental examination Z01.20 [facility] [address] [place] [address] [id number] Aug, Dental examination V72.2 [facility] [id number] [place] [address] 86312- 5486 14 Aug, 2015 Essential hypertension I10 and Muscle cramping R25.2 [facility] [id number] [place] [address] 07530- 8890 09 Aug, 2015 Tension-type headache, not intractable, unspecified chronicity pattern G44.209 ; Muscle cramping R25.2 and Right leg pain M79.604 [facility] [id number] [place] [address] [id number] July, Dental examination Z01.20 [facility] [address] [id number] July, Encounter for dental examination and cleaning without abnormal findings Z01.20 and Dental caries K02.9 [facility] [address] [id number] Jun, Encounter for dental examination Z01.20 [facility] [address] 75372- 4395 Apr, [facility] [id number] [place] [address] 89539 -2783 Apr, Bronchitis J40 [facility] [address] 69499- 4109 09 Feb, 2015 Hyperlipemia E78.5 ; Carotid arterial disease I77.9 ; Tobacco use Z72.0 ; Hypertension I10 ; RBBB I45.10 and CVA (cerebral vascular accident) I63.9 [facility] [id number] [place] [address] 49544- 2960 Feb, Status post CVA Z86.73 ; Dysfunction of right eustachian tube H69.81 and Essential hypertension I10 [address] 27440- 0409 Dec, Encounter for immunization Z23 [facility] [address] 29873- 7426 Oct, PVD (peripheral vascular disease) 443.9 and Weight loss 783.[address] [place] [address] 85748- 4083 Oct, PVD (peripheral vascular disease) 443.9 and Weight loss 783.21 [facility] [id number] [place] [address] 74771- 1430 Aug, Hyperlipidemia 272.4 ; Carotid arterial disease 447.9 ; Tobacco dependency 305.1 ; Hypertension 401.9 ; RBBB 426.4 and CVA (cerebral infarction) 434.91 [place] [id number] [place] [address] 37040- 7085 Aug, [address] 76275- 5835 Aug, 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 29772- 4572 July, Chest pain, unspecified 786.50 ; Occlusion [...] for prophylactic vaccination and inoculation, Influenza V04.[address] [place] [address] 76410- 0968 Jun, [place] [id number] [place] [address] [place] [address]- 0613 Jun, [facility] [place] [facility] [address] [id number] [place] [address]- 7727 May, [facility] [place] [facility] [address] [id number] [place] [address]- 8780 17 May, 2014 [facility] [place] [facility] [address] [id number] [place] [address]- 3019 May, [facility] [place] [facility] [address] [id number] [place] [address]- 3232 May, [facility] [place] [facility] [address] [id number] [place] [address]- 8357 Mar, [facility] [place] [facility] [address] [id number] [place] [address]- 6091 Mar, [facility] [place] [facility] [address] [id number] [place] [address]- 7535 Mar, [facility] [place] [facility] [address] [id number] [place] [address]- 6840 Mar, [facility] [place] [facility] [address] [id number] [place] [address]- 0226 Mar, [facility] [place] [facility] [address] [id number] [place] [address]- 9890 Mar, [facility] [place] [facility] [address] [id number] [place] [address]- 7287 Mar, [facility] [place] [facility] [address] [id number] [address]- 2962 Mar, [facility] [place] [facility] [address] [id number] [place] [address]- 9309 Mar, [facility] [place] [facility] [address] [id number] [place] [address]- 4658 Mar, [facility] [place] [facility] [address] [id number] [place] [address]- 9625 Feb, [facility] [place] [facility] [address] [id number] [place] [address]- 4628 Feb, [facility] [place] [facility] [address] [id number] [place] [address]34 Feb, [facility] [place] [facility] [address] [id number] [place] [address]- 7718 Feb, [facility] [place] [facility] [address] [id number] [place] [address]- 1618 Feb, [facility] [place] [facility] [address] [id number] [place] Feb, [facility] [place] [facility] [address] [id number] [place] [address]- 0507 Feb, [facility] [place] [facility] [address] [id number] [place] [address]99 Feb, [facility] [place] [facility] [address] [id number] [place] [address]- 4375 Jan, [facility] [place] [facility] [address] [id number] [place] [address]- 5864 Jan, [facility] [place] [facility] [address] [id number] [place] [address]- 3900 Nov, [facility] [place] [facility] [address] [id number] [place] [address]- 5491 Nov, [facility] [place] [facility] [address] [id number] [place] [address]- 2985 Sep, [facility] [place] [facility] [address] [id number] [place] [address]- 9210 Sep, [facility] [place] [facility] [address] [id number] [place] [address]- 8722 Sep, [facility] [place] [facility] [address] [id number] [place] [address]- 0198 Sep, [facility] [place] [facility] [address] [id number] [place] [address]- 9714 Aug, [facility] [place] [facility] [address] [id number] [place] [address]- 2817 Aug, [facility] [place] [facility] [address] [id number] [place] [address]- 7080 Aug, [facility] [place] [facility] [address] [id number] [place] [address]- 9838 Aug, [facility] [place] [facility] [address] [id number] [place] [address]- 9039 Aug, [facility] [place] [facility] [address] [id number] [place] [address]- 0076 Aug, [facility] [place] [facility] [address] [id number] [place] [address]- 8890 July, [facility] [place] [facility] [address] [id number] [place] [address]- 9446 July, [facility] [place] [facility] [address] [id number] [place] [address]- 3821 July, [facility] [place] [facility] [address] [id number] [place] [address]- 7864 July, [facility] [place] [facility] [address] [id number] [place] [address]- 3523 Jun, [facility] [place] [facility] [address] [id number] [place] [address]- 6480 Jun, [facility] [place] [facility] [address] [id number] [place] [address]- 5718 Apr, [facility] [place] [facility] [address] [id number] [place] [address]- 2687 Apr, [facility] [place] [facility] [address] [id number] [place] [address]- 5777 Apr, [facility] [place] [facility] [address] [id number] [place] [address]- 2413 Apr, [facility] [place] [facility] [address] [id number] [place] [address]- 2546 Apr, [facility] [address] [id number] [place] [address]- 0066 Apr, [facility] [place] [facility] [address] [id number] [place] [address]- 0176 Mar, [facility] [address] [id number] [place] [address]- 7206 Mar, [facility] [place] [facility] [address] [id number] [place] [address]- 8544 Mar, [facility] [place] [facility] [address] [id number] [place] [address]- 7782 Mar, [facility] [place] [facility] [address] [id number] [place] [address]- 9525 Mar, [facility] [address] [id number] [place] [address]- 0498 Feb, [facility] [address] [id number] [place] [address]- 1574 Feb, [facility] [place] [facility] [address] [id number] [place] [address]- 1297 Feb, [facility] [address] [id number] [place]85 Feb, [facility] [place] [facility] [address] [id number] [place] [address]- 8824 Feb, [facility] [place] [facility] [address] [id number] [place] [address]- 2547 10 Feb, 2013 [facility] [place] [facility] [address] [id number] [place] [address]- 3486 06 Feb, 2013 [facility] [place] [facility] [address] [id number] [place] [address]- 3496 06 Feb, 2013 [facility] [place] [facility] [address] [id number] [place] [address]- 5618 Feb, [facility] [place] [facility] [address] [id number] [place] [address]- 9284 Feb, [facility] [place] [facility] [address] [id number] [place] [address]- 9256 Feb, [facility] [place] [facility] [address] [id number] [place] [address]- 4044 Feb, [facility] [place] [facility] [address] [id number] [place] [address]- 6394 Jan, [facility] [place] [facility] [address] [id number] [place] [address]- 3237 Jan, [facility] [place] [facility] [address] [id number] [place] [address]- 6253 Jan, [facility] [place] [facility] [address] [id number] [place] [address]- 3188 Jan, [facility] [place] [facility] [address] [id number], [place] [address]- 5645 Jan, [facility] [place] [facility] [address] [id number] [place] [address]- 1193 Jan, [facility] [place] [facility] [address] [id number], [place] [address]- 1322 Jan, [facility] [place] [facility] [address] [id number], [place] [address]- 8153 Jan, [facility] [place] [facility] [address] [id number], [place] [address]- 7575 Jan, [facility] [place] [facility] [address] [id number], [place] [address]- 7780 Jan, [facility] [place] [facility] [address] [id number], [place] [address]- 3934 Jan, [facility] [place] [facility] [address] [id number], [place] [address]- 3410 Jan, [facility] [place] [facility] [address] [id number] [place] [address] 2540 Jan, [facility] [address] [id number] [place] [address]- 9122 Jan, [facility] [place] [facility] [address] [id number] [place] [address]- 5621 Jan, [facility] [place] [facility] [address] [id number] [place] [address]- 9705 Dec, [facility] [place] [facility] [address] [id number] [place] [address]- 2310 Dec, [facility] [place] [facility] [address] [id number] [place] [address]- 0714 Dec, [facility] [place] [facility] [address] [id number] [place] [address]- 7618 Dec, [facility] [address] [id number] [place] [address]- 5719 Oct, [facility] [place] [facility] [address] [id number] [place] [address]- 9385 Oct, [facility] [place] [facility] [address] [id number] [place] [address]- 0845 Oct, [facility] [place] [facility] [address] [id number] [place] [address]- 1446 Sep, [facility] [place] [facility] [address] [id number] [place] [address]- 8974 Aug, [facility] [place] [facility] [address] [id number] [place] [address]- 254 July, [facility] [place] [facility] [address] [id number] [place] [address]- 5979 July, [facility] [place] [facility] [address] [id number] [place] [address]- 8846 July, [facility] [place] [facility] [address] [id number] [place] [address]- 2625 July, [facility] [place] [facility] [address] [id number] [place] [address]- 8021 May, [facility] [place] [facility] [address] [id number] [place] [address]- 5000 May, [facility] [place] [facility] [address] [id number] [place] [address]- 6859 Mar, [facility] [place] [facility] [address] [id number] [place] [address]- 0786 Mar, [facility] [place] [facility] [address] [id number] [place] [address]- 4354 Mar, [facility] [place] [facility] [address] [id number] [place] [address]- 9661 Feb, [facility] [place] [facility] [address] [id number] [place] [address]- 2011 Feb, [facility] [place] [facility] [address] [id number] [place] [address]- 3411 Feb, [facility] [place] [facility] [address] [id number] [place] [address]- 9044 Feb, [facility] [place] [facility] [address] [id number] [place] [address]- 2154 Feb, [facility] [place] [facility] [address] [id number] [place] [address]- 2252 Feb, [facility] [place] [facility] [address] [id number] [place] [address]- 1331 Jan, [facility] [place] [facility] [address] [id number] [place] [address]- 4021 Jan, [facility] [place] [facility] [address] [id number] [place] [address]- 8148 Jan, [facility] [place] [facility] [address] [id number] [place] [address]- 8415 Jan, [facility] [place] [facility] [address] [id number] [place] [address]- 3706 Jan, [facility] [place] [facility] [address] [id number] [place] [address]- 1894 Jan, [facility] [place] [facility] [address] [id number] [place] [address]- 7966 Jan, [facility] [place] [facility] [address] [id number] [place] [address]- 1466 Jan, [facility] [place] [facility] [address] [id number] [place] [address]- 4051 Dec, [facility] [place] [facility] [address] [id number] [place] [address]- 6965 Dec, [facility] [place] [facility] [address] [id number] [place] [address]- 0481 Dec, [facility] [place] [facility] [address] [id number] [place] [address]- 4886 Dec, [facility] [place] [facility] [address] [id number] [place] [address]- 9241 Oct, [facility] [place] [facility] [address] [id number] [place] [address]- 1601 Sep, [facility] [place] [facility] [address] [id number] [place] [address]- 6536 Sep, [facility] [place] [facility] [address] [id number], [place] [address]- 2643 Sep, [facility] [place] [facility] [address] [id number], [place] [address]- 0239 Sep, [facility] [place] [facility] [address] [id number] [place] [address]- 2480 Jun, [facility] [place] [facility] [address] [id number] [place] [address]- 8557 May, [facility] [place] [facility] [address] [id number] [place] [address] Apr, [facility] [place] [facility] [address] [id number] [place] [address] 09 Apr, 2011 [facility] [address] [id number] [place] [address] Apr, [facility] [address] [id number] [place] [address] Feb, [facility] [address] [id number] [place] [address] Feb, [facility] [address] [id number] [place] [address] Jan, [facility] [address] [id number] [place] [address] Jan, [facility] [address] [id number] [place] [address] Jan, [facility] [address] [id number] [place] [address] 31 Feb, 2010 [facility] [address] [id number] [place] [address] 30 Feb, 2010 [facility] [address] [id number] [place] [address] 30 Feb, 2010 [facility] [address] [id number] [place] [address] 30 Feb, 2010 [facility] [address] [id number] [place] [address] 27 Feb, 2010 [facility] [address] [id number] [place] [address] 23 Feb, 2010 [facility] [address] [id number] [place] [address] 20 Feb, 2010 [facility] [address] [id number] [place] [address] 18 Feb, 2010 [facility] [address] [id number] [place] [address] Feb, [facility] [id number] [address] Feb, [facility] [id number] [address] Jan, [facility] [id number] [address] Dec, [facility] [id number] [place] [address] Nov, [facility] [id number] [place] [address] Mar, [facility] [id number] [place] [address] Jan, [facility] [id number] [place] [address]- [address] Dec, [facility] [id number] [place] [address]- [address] Dec, [facility] [id number] [place] [address] Sep, [facility] [id number] [address] [address] Jun, [facility] [id number] [address] Mar, [facility] [id number], [place] [address] Jan, IMMUNIZATIONS No Known Immunizations SOCIAL HISTORY Never Assessed REASON FOR VISIT Pain management (chronic), PT was on pain patches but she stoped using them. PT stated they were turning her stools black and has a few moles she would like checked out-Andree MACK PLAN OF CARE Activity Details Follow Up 6 Months Reason:pain mgmt VITAL SIGNS Height 57 in 2017-08-02 Weight 140.0 lbs 2017-08-02 Temperature 98.8 degrees Fahrenheit 2017-08-02 Heart Rate 58 bpm 2017-08-02 Respiratory Rate 18 2017-08-02 BMI 30.29 kg/m2 2017-08-02 Blood pressure systolic 122 mmHg 2017-08-02 Blood pressure diastolic 68 mmHg 2017-08-02 MEDICATIONS Medication Instructions Dosage Frequency Start Date End Date Duration Status potassium 1 tab Active Calcium Oral Once a day 2 tab 24h Active Atenolol 25 MG Orally Once a day 1 tablet 24h Active Simvastatin 40 MG TAKE ONE TABLET BY MOUTH ONCE DAILY 30 Active Primidone 250 MG Orally Once a day 5 tablets at bedtime 24h Feb, Active Lisinopril 10 Orally Once a day LUPIN [employer] 1 tablet 90 Active Protonix 40 MG Orally Once a day 1 tablet 24h Active Tylenol with Codeine #3 300-30 mg 1-2 tablet by Oral route 4 times per day PRN July, Active Probiotic Active RESULTS No Results PROCEDURES Procedure Date Ordered Result Body Site [facility] VISIT ESTABLISHED PATIENT August 02, 2017 INSTRUCTIONS MEDICATIONS ADMINISTERED No Known Medications MEDICAL [...]
--- OUTSIDE RECORDS SUMMARY | 2017-12-22 06:47 | XMS REPORT ---
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 Name Role Phone DAY HUGHES Unavailable PROBLEMS Type Condition ICD9-CM Code VOC63-NU Code Onset Dates Condition Status SNOMED Code Problem Hyperlipemia E78.5 Active 31157533 Problem Dysfunction of right eustachian tube H69.81 Active 27451594 Problem CVA (cerebral vascular accident) I63.9 Active 006998225 Problem Cataracts, bilateral H26.9 Active 20031112 Problem Essential hypertension I10 Active 05837118 Problem Diverticulitis of intestine without perforation or abscess without bleeding, unspecified part of intestinal tract K57.92 Active 764239204 Problem Lymphocytosis D72.820 Active 50534966 Problem 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 487762054 Problem Iron deficiency anemia due to chronic blood loss D50.0 Active 260856422 Problem Peripheral vascular disease, unspecified I73.9 Active 286414393 ALLERGIES No Information ENCOUNTERS Encounter Location Date Diagnosis [place] [id number] [place] [address] 13447- 4303 July, Arthralgia, unspecified joint M25.50 ; Essential hypertension I10 ; Seborrheic keratosis L82.1 and LLQ abdominal pain R10.32 [place] [address] [address] Feb, Arthralgia, unspecified joint M25.50 [place] [address] [place] [id number] [place] [address] 46510- 7775 Feb, Arthralgia, unspecified joint M25.50 [place] [id number] [place] [address] 54610- 6295 Dec, Arthralgia, unspecified joint M25.50 [place] [address] 87[address]- 8540 Dec, Right flank pain R10.9 ; Left foot pain M79.672 ; Arthralgia , unspecified joint M25.50 and Encounter for immunization Z23 [place] [address] 66936- 2706 Dec, CVA (cerebral vascular accident) I63.9 [place] [address] 93456- 2216 Dec, RUQ abdominal pain R10.11 [place] [address] 02259- 2806 Dec, Right lower quadrant pain R10.31 ; Diverticulitis of intestine without perforation or abscess without bleeding, unspecified part of intestinal tract K57.92 and Internal hemorrhoids K64.8 [place] [address] 09520- 3414 Nov, [place] [address] 07193- 1502 Oct, [place] [address] 73039- 6256 30 Aug, 2016 Iron deficiency anemia due to chronic blood loss D50.0 [place] [address] 52711- 7085 Aug, Peripheral vascular disease, unspecified I73.9 and Colitis K52.9 [place] [address] 45384- 1356 14 Aug, 2016 H/O: GI bleed Z87.19 [place] [address] 83381- 9246 07 Aug, 2016 CVA (cerebral vascular accident) I63.9 [place] [address] 86957- 7073 Aug, RUQ abdominal pain R10.11 [facility] [facility] [id number] [place] [address] 336376- 7043 July, RUQ abdominal pain R10.11 and Lymphocytosis D72.820 [facility] [facility] [address] [address] July, [facility] [place] [facility] [address] [place] [id number] [place] [address] 61710- 1229 July, Colitis K52.9 [facility] [address] [place] [id number] [place] [address] [id number] July, [facility] [place] [facility] [address] [place] [id number] [place] [address] 086849- 0216 Jun, Right flank pain R10.9 [facility] [place] [facility] [address] [place] [address] [id number] [place] [address] 33341- 9811 May, Urinary tract infection without hematuria, site unspecified N39.0 and Right flank pain R10.9 [facility] [facility] [id number] [place] [address] 75965- 5821 Feb, Acute non-recurrent maxillary sinusitis J01.00 and Need for hepatitis C screening test Z11.59 [facility] [address] [place] [id number] [place] [address] [id number] Jan, Dental examination Z01.20 [facility] [address] [id number] [place] [address] [id number] Dec, Dental examination Z01.20 [facility] [id number] [place] [address] [id number] Dec, Dental examination Z01.20 [facility] [facility] [address] [id number] [place] [address] 76262- 2546 Dec, [facility] [place] [facility] [id number] [place] [address] 25077 2546 Dec, [facility] [address] [id number] [place] [address] [id number] Dec, Dental examination Z01.20 [facility] [place] [facility] [address] [address]- 7656 Nov, [facility] [address] [id number] [place] [address] [id number] Nov, Dental examination Z01.20 [facility] [place] [facility] [id number] [place] [address] 55237- 0756 23 Oct, 2015 Arthralgia, unspecified joint M25.50 and Essential hypertension I10 [facility] [facility] [address] [id number] [place] [address] 70019- 3216 Oct, [facility] [address] [id number] [place] [address] 328257 -6236 Sep, Bilateral otitis media, unspecified chronicity, unspecified otitis media type H66.93 [facility] [address] [address] [id number] [place] [address] [id number] Sep, Dental examination Z01.20 [facility] [id number] [place] [address] [id number] Aug, 2015 Dental examination V72.2 [facility] [facility] [address] [id number] [place] [address] [id number]- 4946 14 Aug, 2015 Essential hypertension I10 and Muscle cramping R25.2 [facility] [facility] [address] [place] [address] [id number] [place] [address] 110659- 3526 09 Aug, 2015 Tension-type headache, not intractable, unspecified chronicity pattern G44.209 ; Muscle cramping R25.2 and Right leg pain M79.604 [facility] [id number] [place] [address] [id number] July, Dental examination Z01.20 [facility] [address] [address] [id number] [place] [address] [id number] July, Encounter for dental examination and cleaning without abnormal findings Z01.20 and Dental caries K02.9 [facility] [address] [place] [id number] [place] [address] [id number] Jun, Encounter for dental examination Z01.20 [facility] [facility] [address] [place] [id number] [place] [address] 96952- 6116 Apr, [facility] [address] [address] [id number] [place] [address] 71222 -0680 02 Apr, 2015 Bronchitis J40 [place] [address] 89532- 9844 Feb, Hyperlipemia E78.5 ; Carotid arterial disease I77.9 ; Tobacco use Z72.0 ; Hypertension I10 ; RBBB I45.10 and CVA (cerebral vascular accident) I63.[address] 82194- 6859 Feb, Status post CVA Z86.73 ; Dysfunction of right eustachian tube H69.81 and Essential hypertension I10 [address] 70636- 2368 Dec, Encounter for immunization Z23 [address] 48978- 7196 Oct, PVD (peripheral vascular disease) 443.9 and Weight loss 783.21 [place] [id number] [place] [address] 63936- 4519 Oct, PVD (peripheral vascular disease) 443.9 and Weight loss 783.21 [place] [address] [place] [id number] [place] [address] 81626- 6951 Aug, Hyperlipidemia 272.4 ; Carotid arterial disease 447.9 ; Tobacco dependency 305.1 ; Hypertension 401.9 ; RBBB 426.4 and CVA (cerebral infarction) 434.91 [place] [address] [place] [id number] [place] [address] 33008- 3159 Aug, [address] 29118- 4870 Aug, 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 [facility] [facility] [id number] [place] [address] 74412- 1534 July, Chest pain, unspecified 786.50 ; Occlusion [...] for prophylactic vaccination and inoculation, Influenza V04.81 [place] [address] [place] [id number] [place] [address] [id number] 5247 Jun, [place] [address] [place] [id number] [place] [address] 20187- 4812 Jun, [place] [address] [place] [id number] [place] [address] 00962- 5155 May, [place] [address] [place] [id number] [place] [address] 76839- 8246 May, [place] [address] [place] [id number] [place] [address] [id number]- 0263 May, [place] [address] [place] [id number] [place] [address] [id number]- 6966 May, [place] [address] [place] [id number] [place] [address] [id number]- 4413 Mar, [place] [address] 18529- 6490 Mar, [facility] [address] [id number] [place] [address]- 7070 Mar, [facility] [place] [facility] [address] [id number] [place] [address]- 1067 Mar, [facility] [place] [facility] [address] [facility] [id number] [place] [address]- 8939 Mar, [facility] [place] [facility] [address] [id number] [place] [address]- 9411 Mar, [facility] [place] [facility] [address] [id number] [place] [address]- 2741 Mar, [facility] [place] [facility] [address] [id number] [place] [address]- 2074 Mar, [facility] [address] [place] [id number] [place] [address]- 9292 Mar, [facility] [place] [facility] [address] [id number] [place] [address]- 6040 Mar, [facility] [place] [facility] [address] [id number] [place] [address]- 3781 Feb, [facility] [place] [facility] [address] [facility] [id number] [place] [address]- 4385 Feb, [facility] [place] [facility] [address] [id number] [place] [address]- 3781 Feb, [facility] [place] [facility] [address] [id number] [address]- 0973 Feb, [facility] [place] [facility] [address] [id number] [place] [address]- 8351 Feb, [facility] [place] [facility] [address] [facility] [id number] [place] 3181 Feb, [facility] [place] [facility] [address] [facility] [id number] [place] [address]- 2639 Feb, [facility] [place] [facility] [address] [id number] [place] [address]- 2399 Feb, [facility] [place] [facility] [address] [id number] [place] [address]- 7378 Jan, [facility] [place] [facility] [address] [id number] [place] [address]- 8000 Jan, [facility] [place] [facility] [address] [id number] [place] [address]- 9817 Nov, [facility] [place] [facility] [address] [id number] [place] [address]- 5036 Nov, [facility] [place] [facility] [address] [id number] [place] [address]- 8013 Sep, [facility] [place] [facility] [address] [id number] [place] [address]- 7044 Sep, [facility] [place] [facility] [address] [id number] [place] [address]- 9334 Sep, [facility] [place] [facility] [address] [id number] [place] [address]- 6732 Sep, [facility] [place] [facility] [address] [id number] [place] [address]- 5101 Aug, [facility] [place] [facility] [address] [id number] [place] [address]- 4278 Aug, [facility] [place] [facility] [address] [id number] [place] [address]- 1342 Aug, [facility] [place] [facility] [address] [id number] [place] [address]- 7103 Aug, [facility] [place] [facility] [address] [id number] [place] [address]- 0966 Aug, [facility] [place] [facility] [address] [id number] [place] [address]- 7010 Aug, [facility] [place] [facility] [address] [id number] [place] [address]- 5341 July, [facility] [place] [facility] [address] [id number] [place] [address]- 7880 July, [facility] [place] [facility] [address] [id number] [place] [address]- 5413 July, [facility] [place] [facility] [address] [id number] [place] [address]- 0529 July, [facility] [place] [facility] [address] [id number] [place] [address]- 6767 Jun, [facility] [place] [facility] [address] [id number] [place] [address]- 9834 Jun, [facility] [place] [facility] [address] [id number] [place] [address]- 0146 Apr, [facility] [place] [facility] [address] [id number] [place] [address]- 6263 Apr, [facility] [place] [facility] [address] [id number] [place] [address]- 5105 Apr, [facility] [place] [facility] [address] [id number] [place] [address]- 7987 Apr, [facility] [place] [facility] [address] [id number] [place] [address]- 2709 Apr, [facility] [place] [facility] [address] [id number] [place] [address]- 5439 Apr, [facility] [place] [facility] [address] [id number] [place] [address]- 8442 Mar, [facility] [place] [facility] [address] [id number] [place] [address]- 9272 Mar, [facility] [place] [facility] [address] [id number] [place] [address]- 4215 Mar, [facility] [place] [facility] [address] [id number] [place] [address]- 2323 Mar, [facility] [place] [facility] [address] [id number] [place] [address]- 2819 Mar, [facility] [address] [id number] [place] [address]- 1162 Feb, [facility] [place] [facility] [address] [id number] [place] [address]- 8706 Feb, [facility] [address] [id number] [place] [address]- 2666 Feb, [facility] [address] [id number] [place] [address]- 4969 Feb, [facility] [address] [id number] [place] [address]- 2912 Feb, [facility] [address] [id number] [place] [address]- 5359 Feb, [facility] [address] [id number] [place] [address]- 4862 Feb, [facility] [address] [id number] [place] [address]- 9304 Feb, [facility] [address] [id number] [place] [address]- 4617 Feb, [facility] [address] [id number] [place] [address]- 6837 Feb, [facility] [place] [facility] [address] [id number] [place] [address]- 6163 Feb, [facility] [place] [facility] [address] [id number] [place] [address]- 4654 Feb, [facility] [place] [facility] [address] [id number] [place] [address]- 8482 Jan, [facility] [place] [facility] [address] [id number] [place] [address]- 2546 Jan, [facility] [place] [facility] [address] [id number] [place] [address]- 4042 Jan, [facility] [place] [facility] [address] [id number] [place] [address]- 0640 Jan, [facility] [place] [facility] [address] [id number] [place] [address]- 7219 Jan, [facility] [place] [facility] [address] [id number] [place] [address]- 2466 Jan, [facility] [place] [facility] [address] [id number] [place] [address]- 8146 Jan, [facility] [place] [facility] [address] [id number] [place] [address]- 5277 Jan, [facility] [place] [facility] [address] [id number] [place] [address]- 5255 Jan, [facility] [place] [facility] [address] [id number] [place] [address]- 7105 Jan, [facility] [place] [facility] [address] [id number], [place] [address]- 4175 Jan, [facility] [place] [facility] [address] [id number] [place] [address]- 1668 Jan, [facility] [place] [facility] [address] [id number], [place] [address]- 8049 Jan, [facility] [place] [facility] [address] [id number], [place] [address]- 9773 Jan, [facility] [place] [facility] [address] [id number], [place] [address]- 0040 Jan, [facility] [place] [facility] [address] [id number] [place] [address]- 1384 Dec, [facility] [place] [facility] [address] [id number], [place] [address]- 8559 Dec, [facility] [place] [facility] [address] [id number], [place] [address]- 0648 Dec, [facility] [place] [facility] [address] [id number] [place] [address]- 8922 Dec, [facility] [address] [id number] [place] [address]- 5962 Oct, [facility] [place] [facility] [address] [id number] [place] [address]- 3781 Oct, [facility] [address] [id number] [place] [address]- 7266 Oct, [facility] [place] [facility] [address] [id number] [place] [address]- 8473 Sep, [facility] [address] [id number] [place] [address]- 6865 Aug, [facility] [place] [facility] [address] [id number] [place] [address]- 0656 July, [facility] [address] [id number] [place] [address]- 2365 July, [facility] [address] [id number] [place] [address]- 7706 July, [facility] [address] [id number] [place] [address]- 3352 July, [facility] [address] [id number] [place] [address]- 3263 May, [facility] [place] [facility] [address] [id number] [place] [address]- 3545 May, [facility] [place] [facility] [address] [id number] [place] [address]- 1769 Mar, [facility] [place] [facility] [address] [id number] [place] [address]- 2241 Mar, [facility] [place] [facility] [address] [id number] [place] [address]- 2356 Mar, [facility] [place] [facility] [address] [id number] [place] [address]- 8342 Feb, [facility] [place] [facility] [address] [id number] [place] [address]- 0173 Feb, [facility] [place] [facility] [address] [id number] [place] [address]- 2176 Feb, [facility] [place] [facility] [address] [id number] [place] [address]- 9229 Feb, [facility] [place] [facility] [address] [id number] [place] [address]- 7987 Feb, [facility] [place] [facility] [address] [id number] [place] [address]- 6742 Feb, [facility] [place] [facility] [address] [id number] [place] [address]- 6649 Jan, [facility] [place] [facility] [address] [id number] [place] [address]- 2429 Jan, [facility] [place] [facility] [address] [id number] [place] [address]- 0533 Jan, [facility] [place] [facility] [address] [id number] [place] [address]- 1721 Jan, [facility] [place] [facility] [address] [id number] [place] [address]- 5866 Jan, [facility] [place] [facility] [address] [id number] [place] [address]- 5100 Jan, [facility] [place] [facility] [address] [id number] [place] [address]- 0361 Jan, [facility] [place] [facility] [address] [id number] [place] [address]- 5128 Jan, [facility] [place] [facility] [address] [id number] [place] [address]- 0985 Dec, [facility] [place] [facility] [address] [id number] [place] [address]- 4733 Dec, [facility] [place] [facility] [address] [id number] [place] [address]- 7763 Dec, [facility] [place] [facility] [address] [id number] [place] [address]- 6369 Dec, [facility] [place] [facility] [address] [id number] [place] [address] 2546 Oct, [facility] [place] [facility] [address] [id number] [place] [address]- 7026 Sep, [facility] [place] [facility] [address] [id number] [place] [address]- 1829 Sep, [facility] [place] [facility] [address] [id number] [place] [address]- 0008 Sep, [facility] [place] [facility] [address] [id number] [place] [address]- 4976 Sep, [facility] [place] [facility] [address] [id number] [place] [address]- 9778 Jun, [facility] [place] [facility] [address] [id number] [place] [address]- 5885 May, [facility] [place] [facility] [address] [id number] [place] [address]- 9112 Apr, [facility] [place] [facility] [address] [id number] [place] [address]- 9386 Apr, [facility] [place] [facility] [address] [id number] [place] [address] Apr, [facility] [place] [facility] [address] [id number] [place] [address] Feb, [facility] [place] [facility] [address] [id number] [place] [address] Feb, [facility] [place] [facility] [address] [id number] [place] [address] Jan, [facility] [place] [facility] [address] [id number] [place] [address] Jan, [facility] [place] [facility] [address] [id number] [place] [address] 09 Jan, 2011 [facility] [address] [id number] [place] [address] 31 Feb, 2010 [facility] [address] [id number] [place] [address] 30 Feb, 2010 [facility] [address] [id number] [place] [address] 30 Feb, 2010 [facility] [address] [id number] [place] [address] 30 Feb, 2010 [facility] [address] [id number] [place] [address] 27 Feb, 2010 [facility] [address] [id number] [place] [address] 23 Feb, 2010 [facility] [address] [id number] [place] [address] 20 Feb, 2010 [facility] [address] [id number] [place] [address] 18 Feb, 2010 [facility] [address] [id number] [place] [address] 18 Feb, 2010 [facility] [address] [id number] [place] [address] 06 Feb, 2010 [facility] [address] [id number] [place] [address] Jan, [facility] [address] [id number] [place] [address] 24 Dec, 2009 [facility] [place] [facility] [address] [id number] [place] [address] 14 Nov, 2009 [facility] [address] [id number] [place] [address] 18 Mar, 2009 [facility] [address] [id number] [place] [address] Jan, [facility] [place] [facility] [address] [facility] [id number] [address] Dec, [facility] [place] [facility] [address] [id number], [place] [address] Dec, [facility] [place] [facility] [address] [facility] [id number], [place] [address] Sep, [facility] [place] [facility] [address] [id number], [place] [address] Jun, [facility] [place] [facility] [address] [facility] [id number], [place] [address] Mar, [facility] [place] [facility] [address] [id number], [place] [address] Jan, IMMUNIZATIONS No Known Immunizations SOCIAL HISTORY Never Assessed REASON FOR VISIT Controlled Med Refill PRN PLAN OF CARE VITAL SIGNS MEDICATIONS Medication Instructions Dosage Frequency Start Date End Date Duration Status Tylenol with Codeine #3 300-30 mg 1-2 tablet by Oral route 4 times per day PRN July, Active RESULTS No Results PROCEDURES No Known [...]
--- OUTSIDE RECORDS SUMMARY | 2017-12-22 06:48 | XMS REPORT ---
Author Author DAY HUGHES Organization [facility] Address [address] [place] [address] Care Team Providers [employer] Name Role Phone DAY HUGHES Unavailable PROBLEMS Type Condition ICD9-CM Code KEM55-RD Code Onset Dates Condition Status SNOMED Code Problem Hyperlipemia E78.5 Active 12476205 Problem Dysfunction of right eustachian tube H69.81 Active 54728082 Problem CVA (cerebral vascular accident) I63.9 Active 073424660 Problem Cataracts, bilateral H26.9 Active 07780384 Problem Essential hypertension I10 Active 19912901 Problem Diverticulitis of intestine without perforation or abscess without bleeding, unspecified part of intestinal tract K57.92 Active 162953554 Problem Lymphocytosis D72.820 Active 86945720 Problem 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 897997253 Problem Iron deficiency anemia due to chronic blood loss D50.0 Active 384259645 Problem Peripheral vascular disease, unspecified I73.9 Active [id number] ALLERGIES No Information ENCOUNTERS Encounter Location Date Diagnosis [place] [id number] [place] [address] 36924- 9630 July, Arthralgia, unspecified joint M25.50 ; Essential hypertension I10 ; Seborrheic keratosis L82.1 and LLQ abdominal pain R10.32 [place] [address], [place] [address] Feb, Arthralgia, unspecified joint M25.50 [place] [address] [place] [id number] [place] [address] 59145- 0554 Feb, Arthralgia, unspecified joint M25.50 [place] [address] [place] [address] 73666- 4824 Dec, Arthralgia, unspecified joint M25.50 [place] [address] 39788- 6881 Dec, Right flank pain R10.9 ; Left foot pain M79.672 ; Arthralgia , unspecified joint M25.50 and Encounter for immunization Z23 [place] [address] 10720- 9762 Dec, CVA (cerebral vascular accident) I63.9 [place] [address] 54226- 2051 Dec, RUQ abdominal pain R10.11 [place] [address] 59029- 0826 Dec, Right lower quadrant pain R10.31 ; Diverticulitis of intestine without perforation or abscess without bleeding, unspecified part of intestinal tract K57.92 and Internal hemorrhoids K64.8 [place] [address] 69472- 4642 Nov, [place] [address] 30509- 3080 Oct, [place] [address] 50811- 3026 30 Aug, 2016 Iron deficiency anemia due to chronic blood loss D50.0 [place] [address] 73668- 0851 Aug, Peripheral vascular disease, unspecified I73.9 and Colitis K52.9 [place] [address] 25972- 8686 14 Aug, 2016 H/O: GI bleed Z87.19 [place] [address] 58[address]- 1988 07 Aug, 2016 CVA (cerebral vascular accident) I63.9 [place] [address] 06386- 7853 Aug, RUQ abdominal pain R10.11 [facility] [id number] [place] [address] 538517- 3277 July, RUQ abdominal pain R10.11 and Lymphocytosis D72.820 [facility] [address] July, [facility] [id number] [place] [address] 46761- 5090 July, Colitis K52.9 [facility] [address] [id number] [place] [address] [id number] July, [facility] [id number] [place] [address] 598309- 9366 Jun, Right flank pain R10.9 [facility] [id number] [place] [address] 32291- 0355 May, Urinary tract infection without hematuria, site unspecified N39.0 and Right flank pain R10.9 [facility] [id number] [place] [address] 45199- 4272 Feb, Acute non-recurrent maxillary sinusitis J01.00 and Need for hepatitis C screening test Z11.59 [facility] [address] [id number] [place] [address] [id number] Jan, Dental examination Z01.20 [facility] [address] [id number] [place] [address] [id number] Dec, Dental examination Z01.20 [facility] [id number] [place] [address] [id number] Dec, Dental examination Z01.20 [facility] [id number] [place] [address] 72315- 2546 Dec, [facility] [id number] [place] [address] 18126 2546 Dec, [facility] [id number] [place] [address] [phone] Dec, Dental examination Z01.20 [facility] [address], [place] [address]- 9826 Nov, [facility] [id number] [place] [address] [id number] Nov, Dental examination Z01.20 [facility] [id number] [place] [address] 76412- 3446 23 Oct, 2015 Arthralgia, unspecified joint M25.50 and Essential hypertension I10 [facility] [id number] [place] [address] 55714- 1616 Oct, [facility] [id number] [place] [address] 522230 -3556 Sep, Bilateral otitis media, unspecified chronicity, unspecified otitis media type H66.93 [facility] [id number] [place] [address] [id number] Sep, Dental examination Z01.20 [facility] [address] [place] [address] [id number] Aug, 2015 Dental examination V72.2 [facility] [address] [place] [address] [id number] [place] [address] [id number] 4826 14 Aug, 2015 Essential hypertension I10 and Muscle cramping R25.2 [facility] [address] [id number] [place] [address] 053495- 3966 09 Aug, 2015 Tension-type headache, not intractable, unspecified chronicity pattern G44.209 ; Muscle cramping R25.2 and Right leg pain M79.604 [facility] [address] [place] [address] [id number] July, Dental examination Z01.20 [facility] [address] [address] [id number] [place] [address] [id number] July, Encounter for dental examination and cleaning without abnormal findings Z01.20 and Dental caries K02.9 [facility] [address] [place] [address] [id number] [place] [address] [id number] Jun, Encounter for dental examination Z01.20 [facility] [address] [place] [id number] [place] [address] 02074- 2939 Apr, [facility] [address] [id number] [place] [address] 20563 -2528 02 Apr, 2015 Bronchitis J40 [place] [address] 43117- 2202 Feb, Hyperlipemia E78.5 ; Carotid arterial disease I77.9 ; Tobacco use Z72.0 ; Hypertension I10 ; RBBB I45.10 and CVA (cerebral vascular accident) I63.[address] 93205- 0752 Feb, Status post CVA Z86.73 ; Dysfunction of right eustachian tube H69.81 and Essential hypertension I10 [address] 21069- 8885 Dec, Encounter for immunization Z23 [address] 74817- 5562 Oct, PVD (peripheral vascular disease) 443.9 and Weight loss 783.21 [place] [id number] [place] [address] 50907- 7304 Oct, PVD (peripheral vascular disease) 443.9 and Weight loss 783.21 [place] [address] [place] [id number] [place] [address] 90132- 7821 Aug, Hyperlipidemia 272.4 ; Carotid arterial disease 447.9 ; Tobacco dependency 305.1 ; Hypertension 401.9 ; RBBB 426.4 and CVA (cerebral infarction) 434.91 [place] [address] [place] [id number] [place] [address] 23089- 8638 Aug, [address] 25805- 0913 Aug, 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 [facility] [address] [place] [address] 14538- 2986 July, Chest pain, unspecified 786.50 ; Occlusion [...] for prophylactic vaccination and inoculation, Influenza V04.81 [place] [address] [place] [id number] [place] [address] [id number] Jun, [place] [address] [place] [id number] [place] [address] 35055- 9210 Jun, [place] [address] [place] [id number] [place] [address] 22391- 1992 May, [place] [address] [place] [id number] [place] [address] 54425- 2203 May, [place] [address] [place] [id number] [place] [address] [id number] May, [place] [address] [place] [id number] [place] [address] [id number] May, [place] [address] [place] [id number] [place] [address] [id number] 6244 Mar, [place] [address] 45061- 1220 Mar, [facility] [address] [id number] [place] [address]- 7777 Mar, [facility] [place] [facility] [address] [id number] [place] [address]- 9149 Mar, [facility] [place] [facility] [address] [facility] [id number] [place] [address]- 0315 Mar, [facility] [place] [facility] [address] [id number] [place] [address]- 9903 Mar, [facility] [place] [facility] [address] [id number] [place] [address]- 4483 Mar, [facility] [place] [facility] [address] [id number] [place] [address]- 6252 Mar, [facility] [address] [place] [id number] [place] [address]- 6845 Mar, [facility] [place] [facility] [address] [id number] [place] [address]- 0196 Mar, [facility] [place] [facility] [address] [id number] [place] [address]- 2297 Feb, [facility] [place] [facility] [address] [facility] [id number] [place] [address]- 7553 Feb, [facility] [place] [facility] [address] [id number] [place] [address]- 5151 Feb, [facility] [place] [facility] [address] [id number], [place] [address]- 6043 Feb, [facility] [place] [facility] [address] [id number] [place] [address]- 5821 Feb, [facility] [place] [facility] [address] [facility] [id number] [place] 7148 Feb, [facility] [place] [facility] [address] [facility] [id number] [place] [address]- 8356 Feb, [facility] [place] [facility] [address] [id number] [place] [address]- 3268 Feb, [facility] [place] [facility] [address] [id number] [place] [address]- 7706 Jan, [facility] [place] [facility] [address] [id number] [place] [address]- 3666 Jan, [facility] [place] [facility] [address] [id number] [place] [address]- 6850 Nov, [facility] [place] [facility] [address] [id number] [place] [address]- 4725 Nov, [facility] [place] [facility] [address] [id number] [place] [address]- 1153 Sep, [facility] [place] [facility] [address] [id number] [place] [address]- 1968 Sep, [facility] [place] [facility] [address] [id number] [place] [address]- 0375 Sep, [facility] [place] [facility] [address] [id number] [place] [address]- 7603 Sep, [facility] [place] [facility] [address] [id number] [place] [address]- 1015 Aug, [facility] [place] [facility] [address] [id number] [place] [address]- 9288 Aug, [facility] [place] [facility] [address] [id number] [place] [address]- 2093 Aug, [facility] [place] [facility] [address] [id number] [place] [address]- 6785 Aug, [facility] [place] [facility] [address] [id number] [place] [address]- 7315 Aug, [facility] [place] [facility] [address] [id number] [place] [address]- 4041 Aug, [facility] [place] [facility] [address] [id number] [place] [address]- 2670 July, [facility] [place] [facility] [address] [id number] [place] [address]- 0987 July, [facility] [place] [facility] [address] [id number] [place] [address]- 3199 July, [facility] [place] [facility] [address] [id number] [place] [address]- 1862 July, [facility] [place] [facility] [address] [id number] [place] [address]- 3927 Jun, [facility] [place] [facility] [address] [id number] [place] [address]- 4704 Jun, [facility] [place] [facility] [address] [id number] [place] [address]- 5307 Apr, [facility] [place] [facility] [address] [id number] [place] [address]- 5129 Apr, [facility] [place] [facility] [address] [id number] [place] [address]- 5529 Apr, [facility] [place] [facility] [address] [id number] [place] [address]- 3936 Apr, [facility] [place] [facility] [address] [id number] [place] [address]- 9617 Apr, [facility] [place] [facility] [address] [id number] [place] [address]- 9962 Apr, [facility] [place] [facility] [address] [id number] [place] [address]- 9807 Mar, [facility] [place] [facility] [address] [id number] [place] [address]- 9164 Mar, [facility] [place] [facility] [address] [id number] [place] [address]- 1716 Mar, [facility] [place] [facility] [address] [id number] [place] [address]- 8109 Mar, [facility] [place] [facility] [address] [id number] [place] [address]- 7350 Mar, [facility] [address] [id number] [place] [address]- 4307 Feb, [facility] [place] [facility] [address] [id number] [place] [address]- 8096 Feb, [facility] [address] [id number] [place] [address]- 0276 Feb, [facility] [address] [id number] [place] [address]- 5762 Feb, [facility] [address] [id number] [place] [address]- 4485 Feb, [facility] [address] [id number] [place] [address]- 8918 Feb, [facility] [address] [id number] [place] [address]- 8104 Feb, [facility] [address] [id number] [place] [address]- 6161 Feb, [facility] [address] [id number] [place] [address]- 3343 Feb, [facility] [address] [id number] [place] [address]- 9896 Feb, [facility] [place] [facility] [address] [id number] [place] [address]- 6487 Feb, [facility] [place] [facility] [address] [id number] [place] [address]- 4291 Feb, [facility] [place] [facility] [address] [id number] [place] [address]- 5788 Jan, [facility] [place] [facility] [address] [id number] [place] [address]- 2546 Jan, [facility] [place] [facility] [address] [id number] [place] [address]- 4364 Jan, [facility] [place] [facility] [address] [id number] [place] [address]- 4232 Jan, [facility] [place] [facility] [address] [id number] [place] [address]- 0525 Jan, [facility] [place] [facility] [address] [id number] [place] [address]- 6095 Jan, [facility] [place] [facility] [address] [id number] [place] [address]- 7433 Jan, [facility] [place] [facility] [address] [id number] [place] [address]- 6611 Jan, [facility] [place] [facility] [address] [id number] [place] [address]- 0486 Jan, [facility] [place] [facility] [address] [id number] [place] [address]- 3426 Jan, [facility] [place] [facility] [address] [id number], [place] [address]- 1220 Jan, [facility] [place] [facility] [address] [id number] [place] [address]- 5564 Jan, [facility] [place] [facility] [address] [id number], [place] [address]- 1273 Jan, [facility] [place] [facility] [address] [id number], [place] [address]- 3655 Jan, [facility] [place] [facility] [address] [id number], [place] [address]- 1544 Jan, [facility] [place] [facility] [address] [id number] [place] [address]- 9985 Dec, [facility] [place] [facility] [address] [id number], [place] [address]- 9540 Dec, [facility] [place] [facility] [address] [id number], [place] [address]- 6342 Dec, [facility] [place] [facility] [address] [id number] [place] [address]- 1056 Dec, [facility] [address] [id number] [place] [address]- 5338 Oct, [facility] [place] [facility] [address] [id number] [place] [address]- 2134 Oct, [facility] [address] [id number] [place] [address]- 1088 Oct, [facility] [place] [facility] [address] [id number] [place] [address]- 2292 Sep, [facility] [address] [id number] [place] [address]- 1953 Aug, [facility] [place] [facility] [address] [id number] [place] [address]- 6026 July, [facility] [address] [id number] [place] [address]- 0145 July, [facility] [address] [id number] [place] [address]- 5923 July, [facility] [address] [id number] [place] [address]- 0824 July, [facility] [address] [id number] [place] [address]- 8893 May, [facility] [place] [facility] [address] [id number] [place] [address]- 6844 May, [facility] [place] [facility] [address] [id number] [place] [address]- 0467 Mar, [facility] [place] [facility] [address] [id number] [place] [address]- 3966 Mar, [facility] [place] [facility] [address] [id number] [place] [address]- 9486 Mar, [facility] [place] [facility] [address] [id number] [place] [address]- 7746 Feb, [facility] [place] [facility] [address] [id number] [place] [address]- 4507 Feb, [facility] [place] [facility] [address] [id number] [place] [address]- 0156 Feb, [facility] [place] [facility] [address] [id number] [place] [address]- 7255 Feb, [facility] [place] [facility] [address] [id number] [place] [address]- 8333 Feb, [facility] [place] [facility] [address] [id number] [place] [address]- 2114 Feb, [facility] [place] [facility] [address] [id number] [place] [address]- 3434 Jan, [facility] [place] [facility] [address] [id number] [place] [address]- 2069 Jan, [facility] [place] [facility] [address] [id number] [place] [address]- 2925 Jan, [facility] [place] [facility] [address] [id number] [place] [address]- 0105 Jan, [facility] [place] [facility] [address] [id number] [place] [address]- 0964 Jan, [facility] [place] [facility] [address] [id number] [place] [address]- 6711 Jan, [facility] [place] [facility] [address] [id number] [place] [address]- 8855 Jan, [facility] [place] [facility] [address] [id number] [place] [address]- 5579 Jan, [facility] [place] [facility] [address] [id number] [place] [address]- 7727 Dec, [facility] [place] [facility] [address] [id number] [place] [address]- 3922 Dec, [facility] [place] [facility] [address] [id number] [place] [address]- 7808 Dec, [facility] [place] [facility] [address] [id number] [place] [address]- 5642 Dec, [facility] [place] [facility] [address] [id number] [place] [address] 2546 Oct, [facility] [place] [facility] [address] [id number] [place] [address]- 5566 Sep, [facility] [place] [facility] [address] [id number] [place] [address]- 1428 Sep, [facility] [place] [facility] [address] [id number] [place] [address]- 8336 Sep, [facility] [place] [facility] [address] [id number] [place] [address]- 7666 Sep, [facility] [place] [facility] [address] [id number] [place] [address]- 2298 Jun, [facility] [place] [facility] [address] [id number] [place] [address]- 3270 May, [facility] [place] [facility] [address] [id number] [place] [address]- 0486 Apr, [facility] [place] [facility] [address] [id number] [place] [address] Apr, [facility] [place] [facility] [address] [id number] [place] [address] Apr, [facility] [place] [facility] [address] [id number] [place] [address] Feb, [facility] [place] [facility] [address] [id number] [place] [address] Feb, [facility] [place] [facility] [address] [id number] [place] [address] Jan, [facility] [place] [facility] [address] [id number] [place] [address] Jan, [facility] [place] [facility] [address] [id number] [place] [address] 09 Jan, 2011 [facility] [address] [id number] [place] [address] 31 Feb, 2010 [facility] [address] [id number] [place] [address] 30 Feb, 2010 [facility] [address] [id number] [place] [address] 30 Feb, 2010 [facility] [address] [id number] [place] [address] 30 Feb, 2010 [facility] [address] [id number] [place] [address] 27 Feb, 2010 [facility] [address] [id number] [place] [address] 23 Feb, 2010 [facility] [address] [id number] [place] [address] 20 Feb, 2010 [facility] [address] [id number] [place] [address] 18 Feb, 2010 [facility] [address] [id number] [place] [address] 18 Feb, 2010 [facility] [address] [id number] [place] [address] 06 Feb, 2010 [facility] [address] [id number] [place] [address] Jan, [facility] [address] [id number] [place] [address] 24 Dec, 2009 [facility] [place] [facility] [address] [id number] [place] [address] 14 Nov, 2009 [facility] [address] [id number] [place] [address] 18 Mar, 2009 [facility] [address] [id number] [place] [address] Jan, [facility] [address] [facility] [id number] [address] Dec, [facility] [address] [id number] [address] Dec, [facility] [address] [facility] [id number], [place] [address] Sep, [facility] [address] [id number], [place] [address] Jun, [facility] [address] [facility] [id number], [place] [address] Mar, [facility] [address] [id number] [address] Jan, IMMUNIZATIONS No Known Immunizations SOCIAL HISTORY Never Assessed REASON FOR VISIT Medication refill request PLAN OF CARE VITAL SIGNS MEDICATIONS Medication Instructions Dosage Frequency Start Date End Date Duration Status Flector 1.3 % Transdermal Once a day 1 patch to skin 24h Feb, 30 days Active RESULTS No Results PROCEDURES [...]
--- OUTSIDE RECORDS SUMMARY | 2017-12-22 06:48 | XMS REPORT ---
Author Author RHIANNON HUGHES [facility] Address [address] [place] [address] Care Team Providers Care Firmware Engineer Name Role Phone RHIANNON HUGHES Unavailable PROBLEMS Type Condition ICD9-CM Code RBY28-PX Code Onset Dates Condition Status SNOMED Code Problem Hyperlipemia E78.5 Active 11105421 Problem Dysfunction of right eustachian tube H69.81 Active 78394602 Problem CVA (cerebral vascular accident) I63.9 Active 268602436 Problem Cataracts, bilateral H26.9 Active 60077875 Problem Essential hypertension I10 Active 01431648 Problem Diverticulitis of intestine without perforation or abscess without bleeding, unspecified part of intestinal tract K57.92 Active 722688361 Problem Lymphocytosis D72.820 Active 21756264 Problem 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 402752409 Problem Iron deficiency anemia due to chronic blood loss D50.0 Active 226036107 Problem Peripheral vascular disease, unspecified I73.9 Active 545126969 ALLERGIES Substance Reaction Event Type Date Status Flonase hives and itching Drug Allergy Feb, Active Gadolinium-containing Contrast Media nausea Non Drug Allergy Feb, Active ENCOUNTERS Encounter Location Date Diagnosis [place] [id number] [place] [address] 01282- 1496 July, Arthralgia, unspecified joint M25.50 ; Essential hypertension I10 ; Seborrheic keratosis L82.1 and LLQ abdominal pain R10.32 [place] [id number] [address] 31275- 2240 Feb, Arthralgia, unspecified joint M25.50 [facility] [id number] [address] Feb, Arthralgia, unspecified joint M25.50 [place] [address] [address]- 2812 Dec, Arthralgia, unspecified joint M25.50 [place] [address] 64219- 4745 Dec, Right flank pain R10.9 ; Left foot pain M79.672 ; Arthralgia , unspecified joint M25.50 and Encounter for immunization Z23 [place] [address] 34683- 5542 09 Dec, 2016 CVA (cerebral vascular accident) I63.9 [place] [address] 07695- 1924 Dec, RUQ abdominal pain R10.11 [place] [address] 01635- 4933 02 Dec, 2016 Right lower quadrant pain R10.31 ; Diverticulitis of intestine without perforation or abscess without bleeding, unspecified part of intestinal tract K57.92 and Internal hemorrhoids K64.8 [place] [address] 80349- 1212 Nov, [place] [address] 73922- 5294 Oct, [place] [address] 48593- 6686 Aug, Iron deficiency anemia due to chronic blood loss D50.0 [place] [address] 96545- 1285 Aug, Peripheral vascular disease, unspecified I73.9 and Colitis K52.9 [place] [address] 99558- 3542 14 Aug, 2016 H/O: GI bleed Z87.19 [place] [address] 90864- 7580 07 Aug, 2016 CVA (cerebral vascular accident) I63.9 [facility] [id number] [place] [address] 60449- 7919 Aug, RUQ abdominal pain R10.11 [facility] [id number] [address] 46586- 2621 July, RUQ abdominal pain R10.11 and Lymphocytosis D72.820 [facility] [address] 52727- 7798 July, [facility] [id number] [address] 71686- 5716 July, Colitis K52.9 [facility] [address] [id number] July, [facility] [id number] [place] [address] 52584- 4841 Jun, Right flank pain R10.9 [facility] [id number] [place] [address] 55868- 6894 May, Urinary tract infection without hematuria, site unspecified N39.0 and Right flank pain R10.9 [facility] [id number] [address] 43141- 1176 Feb, Acute non-recurrent maxillary sinusitis J01.00 and Need for hepatitis C screening test Z11.59 [facility] [id number] [address] [id number] Jan, Dental examination Z01.20 [facility] [id number] [place] [address] [id number] Dec, Dental examination Z01.20 [facility] [id number] [address] [id number] Dec, Dental examination Z01.20 [facility] [id number] [address] 84735- 1364 Dec, [facility] [address] 89008- 3476 Dec, [facility] [id number] [place] [address] [id number] Dec, Dental examination Z01.20 [facility] [id number] [address] 16149- 1406 28 Nov, 2015 [facility] [id number] [address] [id number] 13 Nov, 2015 Dental examination Z01.20 [facility] [id number] [address] 40583- 3566 23 Oct, 2015 Arthralgia, unspecified joint M25.50 and Essential hypertension I10 [facility] [address] 52954- 6836 Oct, [facility] [id number] [address] 88350 -3769 Sep, Bilateral otitis media, unspecified chronicity, unspecified otitis media type H66.93 [facility] [id number] [address] [id number] Sep, Dental examination Z01.20 [facility] [id number] [address] [id number] 16 Aug, 2015 Dental examination V72.2 [place] [id number] [address] 18716- 6000 14 Aug, 2015 Essential hypertension I10 and Muscle cramping R25.2 [facility] [id number] [address] 697760- 3980 09 Aug, 2015 Tension-type headache, not intractable, unspecified chronicity pattern G44.209 ; Muscle cramping R25.2 and Right leg pain M79.604 [facility] [id number] [address] [id number] July, Dental examination Z01.20 [facility] [address] [place] [address] [id number] July, Encounter for dental examination and cleaning without abnormal findings Z01.20 and Dental caries K02.9 [facility] [address] [place] [address] [id number] Jun, Encounter for dental examination Z01.20 [facility] [address] [place] [address] 51142- 6231 26 Apr, 2015 [facility] [id number] [address] 76938 -5715 02 Apr, 2015 Bronchitis J40 [facility] [id number] [address] 28218- 9496 09 Feb, 2015 Hyperlipemia E78.5 ; Carotid arterial disease I77.9 ; Tobacco use Z72.0 ; Hypertension I10 ; RBBB I45.10 and CVA (cerebral vascular accident) I63.9 [place] [id number] [address] 35749- 1283 Feb, Status post CVA Z86.73 ; Dysfunction of right eustachian tube H69.81 and Essential hypertension I10 [facility] [id number] [address] 73812- 5846 Dec, Encounter for immunization Z23 [facility] [id number] [address] 38782- 0125 Oct, PVD (peripheral vascular disease) 443.9 and Weight loss 783.21 [place] [id number] [address] 51417- 5219 Oct, PVD (peripheral vascular disease) 443.9 and Weight loss 783.21 [place] [id number] [address] 06655- 2074 Aug, Hyperlipidemia 272.4 ; Carotid arterial disease 447.9 ; Tobacco dependency 305.1 ; Hypertension 401.9 ; RBBB 426.4 and CVA (cerebral infarction) 434.91 [place] [id number] [place] [address] 47352- 0538 Aug, [facility] [address] [place] [address] 81943- 2469 Aug, 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 [facility] [id number] [address] 12272- 5019 July, Chest pain, unspecified 786.50 ; Occlusion [...] for prophylactic vaccination and inoculation, Influenza V04.81 [place] [id number] [place] [address] 97841- 7214 Jun, [place] [id number] [address] 84479- 1291 Jun, [place] [id number] [address] 14322- 6477 May, [facility] [id number] [place] [address] 48366- 8060 May, [place] [id number] [address] [id number]- 1264 May, [facility] [id number] [address] 76761- 8157 May, [facility] [address] [place] [address]- 3200 Mar, [facility] [address] [id number] [place] [address]- 1931 Mar, [facility] [place] [facility] [address] [id number] [place] [address]- 7785 Mar, [facility] [place] [facility] [address] [id number] [place] [address]- 5543 Mar, [facility] [place] [facility] [address] [id number] [place] [address]- 5923 Mar, [facility] [place] [facility] [address] [id number] [place] [address]- 2108 Mar, [facility] [place] [facility] [address] [id number] [place] [address]- 9715 Mar, [facility] [address] [id number] [place] [address]- 1828 Mar, [facility] [place] [facility] [address] [id number] [place] [address]- 3702 Mar, [facility] [place] [facility] [address] [id number] [place] [address]- 8614 Mar, [facility] [place] [facility] [address] [id number] [place] [address]- 6081 Feb, [facility] [place] [facility] [address] [id number] [place] [address]- 8909 Feb, [facility] [place] [facility] [address] [id number] [place] [address]- 5272 Feb, [facility] [place] [facility] [address] [id number] [place] [address]- 5936 Feb, [facility] [place] [facility] [address] [id number] [place] [address]- 7256 Feb, [facility] [place] [facility] [address] [id number] [place] [address]- 2397 Feb, [facility] [place] [facility] [address] [id number] [place] 7834 Feb, [facility] [place] [facility] [address] [id number] [place] [address]- 3264 Feb, [facility] [place] [facility] [address] [id number] [place] 8123 Jan, [facility] [place] [facility] [address] [id number] [place] [address]- 1718 Jan, [facility] [place] [facility] [address] [id number] [place] [address]- 2613 Nov, [facility] [place] [facility] [address] [id number] [place] [address]- 4232 Nov, [facility] [place] [facility] [address] [id number] [place] [address]- 7007 Sep, [facility] [place] [facility] [address] [id number] [place] [address]- 1923 Sep, [facility] [place] [facility] [address] [id number] [place] [address]- 9487 Sep, [facility] [place] [facility] [address] [id number] [place] [address]- 0196 Sep, [facility] [place] [facility] [address] [id number] [place] [address]- 7795 Aug, [facility] [place] [facility] [address] [id number] [place] [address]- 4702 Aug, [facility] [place] [facility] [address] [id number] [place] [address]- 9229 Aug, [facility] [place] [facility] [address] [id number] [place] [address]- 7915 Aug, [facility] [place] [facility] [address] [id number] [place] [address]- 5074 Aug, [facility] [place] [facility] [address] [id number] [place] [address]- 7784 Aug, [facility] [place] [facility] [address] [id number] [place] [address]- 7634 July, [facility] [place] [facility] [address] [id number] [place] [address]- 0642 July, [facility] [place] [facility] [address] [facility] [id number] [place] [address]- 2152 July, [facility] [place] [facility] [address] [facility] [id number] [place] [address]- 5233 July, [facility] [place] [facility] [address] [id number] [place] [address]- 2230 Jun, [facility] [place] [facility] [address] [facility] [id number] [place] [address]- 9604 Jun, [facility] [place] [facility] [address] [facility] [id number] [place] [address]- 4586 Apr, [facility] [place] [facility] [address] [id number] [place] [address]- 1359 Apr, [facility] [place] [facility] [address] [facility] [id number] [place] [address]- 0842 Apr, [facility] [place] [facility] [address] [facility] [id number] [place] [address]- 9294 Apr, [facility] [place] [facility] [address] [facility] [id number] [place] [address]- 7132 Apr, [facility] [place] [facility] [address] [facility] [id number] [place] [address]- 0185 Apr, [facility] [place] [facility] [address] [facility] [id number] [place] [address]- 2506 Mar, [facility] [place] [facility] [address] [facility] [id number] [place] [address]- 1810 Mar, [facility] [place] [facility] [address] [facility] [id number] [place] [address]- 7271 Mar, [facility] [place] [facility] [address] [id number] [place] [address]- 8044 30 Mar, 2013 [facility] [address] [id number] [place] [address]- 6135 Mar, [facility] [place] [facility] [address] [id number] [place] [address]- 0966 Feb, [facility] [address] [id number] [place] [address]- 5676 Feb, [facility] [place] [facility] [address] [id number] [place] [address]- 1330 Feb, [facility] [address] [id number] [place] [address]- 2958 Feb, [facility] [place] [facility] [address] [id number] [place] [address]- 2704 Feb, [facility] [place] [facility] [address] [id number] [place] [address]- 2943 Feb, [facility] [address] [id number] [place] [address]- 6693 Feb, [facility] [place] [facility] [address] [id number] [place] [address]- 7693 Feb, [facility] [address] [id number] [place] [address]- 3233 Feb, [facility] [place] [facility] [address] [id number] [place] [address]- 6057 Feb, [facility] [place] [facility] [address] [id number] [place] [address]- 4815 Feb, [facility] [place] [facility] [address] [id number] [place] [address]- 2946 Feb, [facility] [place] [facility] [address] [id number] [place] [address]- 9366 Jan, [facility] [place] [facility] [address] [id number] [place] [address]- 6353 Jan, [facility] [place] [facility] [address] [id number] [place] [address]- 9076 Jan, [facility] [place] [facility] [address] [id number] [place] [address]- 9852 Jan, [facility] [place] [facility] [address] [id number] [place] [address]- 3606 Jan, [facility] [place] [facility] [address] [id number] [place] [address]- 8935 Jan, [facility] [place] [facility] [address] [id number] [place] [address]- 5538 Jan, [facility] [place] [facility] [address] [id number] [place] [address]- 0606 Jan, [facility] [place] [facility] [address] [id number] [place] [address]- 8643 Jan, [facility] [place] [facility] [address] [id number], [place] [address]- 6739 Jan, [facility] [place] [facility] [address] [id number] [place] [address]- 8100 Jan, [facility] [place] [facility] [address] [id number], [place] [address]- 9788 Jan, [facility] [place] [facility] [address] [id number], [place] [address]- 3702 Jan, [facility] [place] [facility] [address] [id number], [place] [address]- 5567 Jan, [facility] [place] [facility] [address] [id number] [place] [address]- 3171 Jan, [facility] [place] [facility] [address] [id number], [place] [address]- 9980 Dec, [facility] [place] [facility] [address] [id number], [place] [address]- 4205 Dec, [facility] [place] [facility] [address] [id number] [place] [address] 2545 Dec, [facility] [address] [id number] [place] [address]- 9739 Dec, [facility] [place] [facility] [address] [id number] [place] [address]- 4249 Oct, [facility] [address] [id number] [place] [address]- 6820 Oct, [facility] [place] [facility] [address] [id number] [place] [address]- 4056 Oct, [facility] [address] [id number] [place] [address]- 9995 Sep, [facility] [place] [facility] [address] [id number] [place] [address]- 3132 Aug, [facility] [address] [id number] [place] [address]- 8251 July, [facility] [address] [id number] [place] [address]- 9210 July, [facility] [address] [id number] [place] [address]- 8446 July, [facility] [address] [id number] [place] [address]- 7970 July, [facility] [address] [id number] [place] [address]- 6214 May, [facility] [place] [facility] [address] [id number] [place] [address]- 2545 May, [facility] [place] [facility] [address] [id number] [place] [address]- 9124 Mar, [facility] [place] [facility] [address] [id number] [place] [address]- 6936 Mar, [facility] [place] [facility] [address] [id number] [place] [address]- 4578 Mar, [facility] [place] [facility] [address] [id number] [place] [address]- 4403 Feb, [facility] [place] [facility] [address] [id number] [place] [address]- 7649 Feb, [facility] [place] [facility] [address] [id number] [place] [address]- 6395 Feb, [facility] [place] [facility] [address] [id number] [place] [address]- 0902 Feb, [facility] [place] [facility] [address] [id number] [place] [address]- 1368 Feb, [facility] [place] [facility] [address] [id number] [place] [address]- 7747 Feb, [facility] [place] [facility] [address] [id number] [place] [address]- 5053 Jan, [facility] [place] [facility] [address] [id number] [place] [address]- 1975 Jan, [facility] [place] [facility] [address] [id number] [place] [address]- 9367 Jan, [facility] [place] [facility] [address] [id number] [place] [address]- 7860 Jan, [facility] [place] [facility] [address] [id number] [place] [address]- 5814 Jan, [facility] [place] [facility] [address] [id number] [place] [address]- 6847 Jan, [facility] [place] [facility] [address] [id number] [place] [address]- 1266 Jan, [facility] [place] [facility] [address] [id number] [place] [address]- 0191 Jan, [facility] [place] [facility] [address] [id number] [place] [address] 25 Dec, 2011 [facility] [place] [facility] [address] [id number] [place] [address] Dec, [facility] [address] [id number] [place] [address] Dec, [facility] [place] [facility] [address] [id number] [place] [address] Dec, [facility] [place] [facility] [address] [id number] [place] [address] Oct, [facility] [place] [facility] [address] [id number] [place] [address] Sep, [facility] [place] [facility] [address] [id number] [place] [address] Sep, [facility] [place] [facility] [address] [id number] [place] [address] Sep, [facility] [place] [facility] [address] [id number] [place] [address] Sep, [facility] [place] [facility] [address] [id number] [place] [address] Jun, [facility] [place] [facility] [address] [id number] [place] [address] May, [facility] [place] [facility] [address] [id number] [place] [address] Apr, [facility] [place] [facility] [address] [id number] [place] [address] Apr, [facility] [place] [facility] [address] [id number] [place] [address] 254 Apr, [facility] [place] [facility] [address] [id number] [place] [address] Feb, [facility] [place] [facility] [address] [id number] [place] [address] Feb, [facility] [place] [facility] [address] [id number] [place] [address] Jan, [facility] [place] [facility] [address] [id number] [place] [address] 28 Jan, 2011 [facility] [address] [id number] [place] [address] 09 Jan, 2011 [facility] [address] [id number] [place] [address] 31 Feb, 2010 [facility] [address] [id number] [place] [address] 30 Feb, 2010 [facility] [address] [id number] [place] [address] 30 Feb, 2010 [facility] [address] [id number] [place] [address] 30 Feb, 2010 [facility] [address] [id number] [place] [address] 27 Feb, 2010 [facility] [address] [id number] [place] [address] 23 Feb, 2010 [facility] [address] [id number] [place] [address] 20 Feb, 2010 [facility] [address] [id number] [place] [address] 18 Feb, 2010 [facility] [address] [id number] [place] [address] 18 Feb, 2010 [facility] [address] [id number] [place] [address] 06 Feb, 2010 [facility] [address] [id number] [place] [address] Jan, [facility] [place] [facility] [address] [id number] [place] [address] 24 Dec, 2009 [facility] [place] [facility] [address] [id number] [place] [address] 14 Nov, 2009 [facility] [place] [facility] [address] [id number] [place] [address] Mar, [facility] [id number] [address] Jan, [facility] [id number] [place] [address] Dec, [facility] [id number], [place] [address] Dec, [facility] [id number], [place] [address] Sep, [facility] [id number], [place] [address] Jun, [facility] [id number], [place] [address] Mar, [facility] [id number], [place] [address] Jan, IMMUNIZATIONS No Known Immunizations SOCIAL HISTORY Never Assessed REASON FOR VISIT Stomach ulcer, had EGD done was referred back to [facility]. Only found chronic ulcer. Cultures were done, placed on protonix, discontinued meloxicam.CBrumbackRN, Pt not taking anything other than tylenol arthritis for arthritis pain, reports after 4 hrs is miserable. PLAN OF CARE Activity Details Follow Up 3 Months Reason:chronic pain VITAL SIGNS Height 57 in 2017-03-01 Weight 138.3 lbs 2017-03-01 Temperature 98.3 degrees Fahrenheit 2017-03-01 Heart Rate 72 bpm 2017-03-01 Respiratory Rate 20 2017-03-01 BMI 29.92 kg/m2 2017-03-01 Blood pressure systolic 120 mmHg 2017-03-01 Blood pressure diastolic 70 mmHg 2017-03-01 MEDICATIONS Medication Instructions Dosage Frequency Start Date End Date Duration Status Flector 1.3 % Transdermal Once a day 1 patch to skin 24h Feb, Active Atenolol 25 MG Orally Once a day 1 tablet 24h Active Primidone 250 MG Orally Once a day 5 tablets at bedtime 24h Feb, Active Probiotic Active Ranitidine HCl 150 MG Orally Once a day 1 tablet 24h 90 Active Eliquis 5 mg Orally 2 times a day 1 tablet 12h Aug, 90 days Active Lisinopril 10 Orally Once a day LUPIN PHARMACE 1 tablet 90 Active potassium 1 tab Active Simvastatin 40 MG TAKE ONE TABLET BY MOUTH ONCE DAILY 30 Active Protonix 40 MG Orally Once a day 1 tablet 24h Active Calcium Oral Once a day 2 tab 24h Active Tylenol with Codeine #3 300-30 mg 1-2 tablet by Oral route 4 times per day PRN July, Active Meloxicam 15 mg Orally Once a day 1 tablet only as needed 24h 30 days Not-Taking RESULTS No Results PROCEDURES Procedure Date Ordered Result Body Site [facility] VISIT ESTABLISHED PATIENT Mar 01, 2017 INSTRUCTIONS MEDICATIONS ADMINISTERED No Known Medications [...]
--- OUTSIDE RECORDS SUMMARY | 2017-12-22 06:49 | XMS REPORT ---
Author Author DAY HUGHES [facility] Address [address] [place] [address] Care Team Providers Care Assistant Quality Manager Name Role Phone DAY HUGHES Unavailable PROBLEMS Type Condition ICD9-CM Code [id number] Code Onset Dates Condition Status SNOMED Code Problem Hyperlipemia E78.5 Active 62765389 Problem Hypertension I10 Active 28802257 Problem CVA (cerebral vascular accident) I63.9 Active 234255188 Problem Cataracts, bilateral H26.9 Active 17853972 Problem Diverticulitis of intestine without perforation or abscess without bleeding, unspecified part of intestinal tract K57.92 Active 203907112 Problem Iron deficiency anemia due to chronic blood loss D50.0 Active 369332061 Problem 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 789049970 Problem Dysfunction of right eustachian tube H69.81 Active 27027803 Problem Peripheral vascular disease, unspecified I73.9 Active 839803468 Problem Lymphocytosis D72.820 Active 65787574 ALLERGIES No Information SOCIAL HISTORY Never Assessed PLAN OF CARE VITAL SIGNS MEDICATIONS Unknown Medications RESULTS Name Result Date Reference Range CBC 2016-08-25 WBC 9.3 3.4-10.8 RBC 3.68 3.77-5.28 Hemoglobin 10.7 11.1-15.9 Hematocrit 33.3 34.0-46.6 MCV 91 79-97 MCH 29.1 26.6-33.0 MCHC 32.1 31.5-35.7 RDW 15.7 12.3-15.4 Platelets 370 150-379 Neutrophils 68 Lymphs 20 Monocytes 9 Eos 2 Basos 1 Immature Cells Neutrophils (Absolute) 6.4 1.4-7.0 Lymphs (Absolute) 1.9 0.7-3.1 Monocytes(Absolute) 0.8 0.1-0.9 Eos (Absolute) 0.2 0.0-0.4 Baso (Absolute) 0.1 0.0-0.2 Immature Granulocytes 0 Immature Grans (Abs) 0.0 0.0-0.1 NRBC Hematology Comments: PROCEDURES Procedure Date Ordered Result Body Site [facility] August 25, 2016 VENIPNEDRA, ROUTINE* August 25, 2016 IMMUNIZATIONS No Known Immunizations MEDICAL (GENERAL) HISTORY Type Description Date Medical [...] no deficits Medical History Right DVT 08/2016 Surgical History Tonsillectomy age 7 Surgical History Bladder surgery repair that did not take 2009 Surgical History Hysterectomy uterus 20 yrs ago Surgical History right ovary and tube due to ovarian cyst Surgical History left ovary and tube due to ovarian cyst Surgical History oophorectomy age 31 Surgical History Heart Cath 40% blockage of one vessel. Had a pseudoaneurysm after procedure Dr Burotn 07/2014 Surgical History Colonoscopy. Increased Lymphocytes either evolving Autoimmune condition or related to medications she is taking 06/2016 Hospitalization History Heart cath per Dr. Burton at [facility]- hypotension 08/08 Hospitalization History Hematochezia-[facility] 07/27/16
--- OUTSIDE RECORDS SUMMARY | 2017-12-22 06:49 | XMS REPORT ---
Author Author DAY HUGHES Organization [facility] Address [address] [place] [address] Care Team Providers Care Cardiopulmonary Technologist Chief Name Role Phone DAY HUGHES Unavailable PROBLEMS Type Condition ICD9-CM Code CQF55-AL Code Onset Dates Condition Status SNOMED Code Problem Hyperlipemia E78.5 Active 64968862 Problem Hypertension I10 Active 49085646 Problem CVA (cerebral vascular accident) I63.9 Active 611917795 Problem Cataracts, bilateral H26.9 Active 10928957 Problem Diverticulitis of intestine without perforation or abscess without bleeding, unspecified part of intestinal tract K57.92 Active 548590154 Problem Iron deficiency anemia due to chronic blood loss D50.0 Active 014795654 Problem 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 216626264 Problem Dysfunction of right eustachian tube H69.81 Active 35381915 Problem Peripheral vascular disease, unspecified I73.9 Active 479315853 Problem Lymphocytosis D72.820 Active 37897714 ALLERGIES No Information ENCOUNTERS Encounter Location Date Diagnosis [place] [facility] [id number] [place] [address] 10319- 1642 July, [facility] [facility] [id number] [place] [address] 22576- 7762 Feb, Arthralgia, unspecified joint M25.50 [facility] [id number] [place] [address] 14528- 2627 Feb, Arthralgia, unspecified joint M25.50 [place] [id number] [place] [address] 49103- 2425 Dec, Arthralgia, unspecified joint M25.50 [place] [facility] [id number] [place] [address] 02990- 3617 Dec, Right flank pain R10.9 ; Left foot pain M79.672 ; Arthralgia , unspecified joint M25.50 and Encounter for immunization Z23 [facility] [address] 38168- 1087 Dec, CVA (cerebral vascular accident) I63.9 [facility] [address] 87547- 6227 Dec, RUQ abdominal pain R10.11 [facility] [facility] [address] 16668- 0072 Dec, Right lower quadrant pain R10.31 ; Diverticulitis of intestine without perforation or abscess without bleeding, unspecified part of intestinal tract K57.92 and Internal hemorrhoids K64.8 [facility] [facility] [id number] [place] [address] 14419- 5064 Nov, [facility] [address] 69600- 8357 Oct, [place] [facility] [address] 75338- 8794 Aug, Iron deficiency anemia due to chronic blood loss D50.0 [place] [id number] [place] [address] 62579- 4295 Aug, Peripheral vascular disease, unspecified I73.9 and Colitis K52.9 [place] [id number] [place] [address] 61225- 6868 Aug, H/O: GI bleed Z87.19 [place] [id number] [place] [address] 36776- 7299 07 Aug, 2016 CVA (cerebral vascular accident) I63.9 [place] [id number] [place] [address] 28461- 4355 Aug, RUQ abdominal pain R10.11 [place] [address] 66780- 1651 July, RUQ abdominal pain R10.11 and Lymphocytosis D72.820 [facility] [id number] [place] [address] 76102- 7059 July, [facility] [id number] [place] [address] 24157- 6726 July, Colitis K52.9 [facility] [id number] [place] [address] [id number] July, [facility] [id number] [place] [address] 92527- 3713 Jun, Right flank pain R10.9 [facility] [id number] [place] [address] 191368- 2086 May, Urinary tract infection without hematuria, site unspecified N39.0 and Right flank pain R10.9 [facility] [id number] [place] [address] 93203- 7178 Feb, Acute non-recurrent maxillary sinusitis J01.00 and Need for hepatitis C screening test Z11.59 [facility] [id number] [place] [address] [id number] Jan, Dental examination Z01.20 [facility] [id number] [place] [address] [id number] Dec, Dental examination Z01.20 [facility] [id number] [place] [address] [id number] Dec, Dental examination Z01.20 [facility] [id number] [place] [address] 43261 2546 Dec, [facility] [id number] [place] [address] 24463 2546 Dec, [facility] [id number] [place] [address] [id number] Dec, Dental examination Z01.20 [facility] [id number] [place] [address] 14009903- 5606 Nov, [facility] [id number] [place] [address] [id number] Nov, Dental examination Z01.20 [facility] [id number] [place] [address] 06085- 3356 Oct, Arthralgia, unspecified joint M25.50 and Essential hypertension I10 [facility] [address] 83035- 5809 Oct, [facility] [id number] [place] [address] 47085 -5314 Sep, Bilateral otitis media, unspecified chronicity, unspecified otitis media type H66.93 [facility] [address] [id number] Sep, Dental examination Z01.20 [facility] [id number] [place] [address] [id number] Aug, 2015 Dental examination V72.2 [facility] [id number] [place] [address] 49837- 5826 14 Aug, 2015 Essential hypertension I10 and Muscle cramping R25.2 [facility] [id number] [place] [address] 61777- 1664 09 Aug, 2015 Tension-type headache, not intractable, unspecified chronicity pattern G44.209 ; Muscle cramping R25.2 and Right leg pain M79.604 [facility] [address] [place] [address] [id number] July, Dental examination Z01.20 [facility] [id number] [place] [address] [id number] July, Encounter for dental examination and cleaning without abnormal findings Z01.20 and Dental caries K02.9 [facility] [id number] [place] [address] [id number] Jun, Encounter for dental examination Z01.20 [facility] [id number] [place] [address] 38660- 1432 Apr, [facility] [address] 64490 -1857 Apr, Bronchitis J40 [facility] [address] 31313- 6554 Feb, Hyperlipemia E78.5 ; Carotid arterial disease I77.9 ; Tobacco use Z72.0 ; Hypertension I10 ; RBBB I45.10 and CVA (cerebral vascular accident) I63.9 [place] [address] 58572- 0409 Feb, Status post CVA Z86.73 ; Dysfunction of right eustachian tube H69.81 and Essential hypertension I10 [place] [address] 18198- 3597 Dec, Encounter for immunization Z23 [place] [address] 91558- 9598 Oct, PVD (peripheral vascular disease) 443.9 and Weight loss 783.21 [place] [address] 20123- 8478 Oct, PVD (peripheral vascular disease) 443.9 and Weight loss 783.21 [place] [address] 63381- 2823 Aug, Hyperlipidemia 272.4 ; Carotid arterial disease 447.9 ; Tobacco dependency 305.1 ; Hypertension 401.9 ; RBBB 426.4 and CVA (cerebral infarction) 434.91 [place] [address] 37693- 2573 Aug, [place] [address] 63824- 0901 Aug, 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 [place] [address] 94636- 5711 July, Chest pain, unspecified 786.50 ; Occlusion [...] for prophylactic vaccination and inoculation, Influenza V04.81 [place] [address] 97978- 8149 Jun, [place] [address] 30633- 1933 Jun, [place] [address] 15366- 2368 May, [place] [id number] [place] [address] 93084- 0179 May, [place] [id number] [place] [address] 63147- 7199 May, [place] [id number] [place] [address] 95804- 6277 May, [place] [address] 61703- 6979 Mar, [place] [address] 24307- 1095 Mar, [place] [address] [id number]- 7226 Mar, [facility] [place] [facility] [address] [id number] [place] [address]- 0236 Mar, [facility] [place] [facility] [address] [id number] [place] [address]- 6526 Mar, [facility] [place] [facility] [address] [id number] [place] [address]- 6742 Mar, [facility] [place] [facility] [address] [id number] [place] [address]- 5528 Mar, [facility] [place] [facility] [address] [id number] [place] [address]- 5704 Mar, [facility] [place] [facility] [address] [id number] [place] [address]- 2035 Mar, [facility] [place] [facility] [address] [id number] [place] [address]- 1682 Mar, [facility] [place] [facility] [address] [id number] [place] [address]- 9195 Feb, [facility] [place] [facility] [address] [id number] [place] [address]- 1359 Feb, [facility] [place] [facility] [address] [id number] [place] [address]- 5352 Feb, [facility] [place] [facility] [address] [id number] [place] [address]- 5555 Feb, [facility] [place] [facility] [address] [id number] [address]- 6396 Feb, [facility] [place] [facility] [address] [id number] [place] 5382 Feb, [facility] [place] [facility] [address] [id number] [place] [address]- 5929 Feb, [facility] [place] [facility] [address] [id number] [place] [address]- 6998 Feb, [facility] [place] [facility] [address] [id number] [place] [address]- 3362 Jan, [facility] [place] [facility] [address] [id number] [place] [address]- 6530 Jan, [facility] [place] [facility] [address] [id number] [place]- 8421 Nov, [facility] [place] [facility] [address] [id number] [place] [address]- 7333 Nov, [facility] [place] [facility] [address] [id number] [place] [address]- 2753 Sep, [facility] [place] [facility] [address] [id number] [place] [address]- 5000 Sep, [facility] [place] [facility] [address] [id number] [place] [address]- 2775 Sep, [facility] [place] [facility] [address] [id number] [place] [address]- 6040 Sep, [facility] [place] [facility] [address] [id number] [place] [address]- 4485 Aug, [facility] [place] [facility] [address] [id number] [place] [address]- 3202 Aug, [facility] [place] [facility] [address] [id number] [place] [address]- 2477 Aug, [facility] [place] [facility] [address] [id number] [place] [address]- 1837 Aug, [facility] [place] [facility] [address] [id number] [place] [address]- 2479 Aug, [facility] [place] [facility] [address] [id number] [place] [address]- 7362 Aug, [facility] [place] [facility] [address] [id number] [place] [address]- 8689 July, [facility] [place] [facility] [address] [id number] [place] [address]- 2947 July, [facility] [address] [id number] [place] [address]- 9095 July, [facility] [place] [facility] [address] [id number] [place] [address]- 3556 July, [facility] [place] [facility] [address] [id number] [place] [address]- 9281 Jun, [facility] [place] [facility] [address] [id number] [place] [address]- 9991 Jun, [facility] [place] [facility] [address] [id number] [place] [address]- 2889 Apr, [facility] [place] [facility] [address] [id number] [place] [address]- 1029 Apr, [facility] [place] [facility] [address] [id number] [place] [address]- 3951 Apr, [facility] [place] [facility] [address] [id number] [place] [address]- 1005 Apr, [facility] [place] [facility] [address] [id number] [place] [address]- 8693 Apr, [facility] [place] [facility] [address] [id number] [place] [address]- 2060 Apr, [facility] [place] [facility] [address] [id number] [place] [address]- 6220 Mar, [facility] [place] [facility] [address] [id number] [place] [address]- 7510 Mar, [facility] [place] [facility] [address] [id number] [place] [address]- 3448 Mar, [facility] [place] [facility] [address] [id number] [place] [address]- 6527 Mar, [facility] [place] [facility] [address] [id number] [place] [address]- 8676 Mar, [facility] [place] [facility] [address] [id number] [place] [address]- 0481 31 Feb, 2012 [facility] [address] [id number] [place] [address]- 0696 31 Feb, 2012 [facility] [address] [id number] [place] [address]- 9256 Feb, [facility] [address] [id number] [place] [address]- 9516 17 Feb, 2012 [facility] [address] [id number] [place] [address]- 5166 Feb, [facility] [address] [id number] [place] [address]- 9570 Feb, [facility] [address] [id number] [place] 3021 Feb, [facility] [address] [id number] [place] [address]- 2636 Feb, [facility] [address] [id number] [place] [address]- 7935 Feb, [facility] [place] [facility] [address] [id number] [place] [address]- 6959 Feb, [facility] [address] [id number] [place] [address]- 6720 Feb, [facility] [address] [id number] [place] [address]- 2096 Feb, [facility] [place] [facility] [address] [id number] [place] [address]- 8308 Jan, [facility] [place] [facility] [address] [id number] [place] [address]- 6331 Jan, [facility] [place] [facility] [address] [id number] [place] [address]- 4035 Jan, [facility] [place] [facility] [address] [id number] [place] [address]- 1669 Jan, [facility] [place] [facility] [address] [id number] [place] [address]- 9840 Jan, [facility] [place] [facility] [address] [id number] [place] [address]- 9343 Jan, [facility] [place] [facility] [address] [id number] [place] [address]- 6839 Jan, [facility] [place] [facility] [address] [id number] [place] [address]- 9770 Jan, [facility] [place] [facility] [address] [id number] [place] [address]- 1817 Jan, [facility] [place] [facility] [address] [id number] [place] [address]- 4809 Jan, [facility] [place] [facility] [address] [id number] [place] [address]- 0771 Jan, [facility] [place] [facility] [address] [id number] [place] [address]- 1785 Jan, [facility] [place] [facility] [address] [id number] [place] [address]- 2804 Jan, [facility] [place] [facility] [address] [id number] [place] [address]- 1313 Jan, [facility] [place] [facility] [address] [id number] [place] [address]- 8212 Jan, [facility] [place] [facility] [address] [id number] [place] [address]- 3549 Dec, [facility] [place] [facility] [address] [id number] [place] [address]- 6723 Dec, [facility] [place] [facility] [address] [id number] [place] [address]- 0122 Dec, [facility] [place] [facility] [address] [id number] 4227 Dec, [facility] [place] [facility] [address] [id number] [place] [address]- 3991 Oct, [facility] [address] [id number] [place] [address]- 1217 Oct, [facility] [place] [facility] [address] [id number] [place] [address]- 5865 Oct, [facility] [place] [facility] [address] [id number] [place] [address]- 8557 Sep, [facility] [place] [facility] [address] [id number] [place] [address]- 5798 Aug, [facility] [place] [facility] [address] [id number] [place] [address]- 7386 July, [facility] [place] [facility] [address] [id number] [place] [address]- 4652 July, [facility] [place] [facility] [address] [id number] [place] [address]- 9356 July, [facility] [place] [facility] [address] [id number] [place] [address]- 3867 July, [facility] [place] [facility] [address] [id number] [place] [address]- 5323 May, [facility] [place] [facility] [address] [id number] [place] [address]- 7043 May, [facility] [place] [facility] [address] [id number] [place] [address]- 6945 Mar, [facility] [place] [facility] [address] [id number] [place] [address]- 2973 Mar, [facility] [place] [facility] [address] [id number] [place] [address]- 5442 Mar, [facility] [place] [facility] [address] [id number] [place] [address]- 5331 Feb, [facility] [place] [facility] [address] [id number] [place] [address]- 6237 Feb, [facility] [place] [facility] [address] [id number] [place] [address]- 9605 13 Feb, 2012 [facility] [place] [facility] [address] [id number] [place] [address]- 8477 Feb, [facility] [place] [facility] [address] [id number] [place] [address]- 7446 Feb, [facility] [place] [facility] [address] [id number] [place] [address]- 6610 Feb, [facility] [place] [facility] [address] [id number] [place] [address]- 2277 Jan, [facility] [place] [facility] [address] [id number] [place] [address]- 9569 Jan, [facility] [place] [facility] [address] [id number] [place] [address]- 6735 Jan, [facility] [place] [facility] [address] [id number] [place] [address]- 1485 Jan, [facility] [place] [facility] [address] [id number] [place] [address]- 3591 Jan, [facility] [place] [facility] [address] [id number] [place] [address]- 1120 Jan, [facility] [place] [facility] [address] [id number] [place] [address]- 7643 Jan, [facility] [place] [facility] [address] [id number] [place] [address]- 9299 Jan, [facility] [place] [facility] [address] [id number] [place] [address]- 9735 Dec, [facility] [place] [facility] [address] [id number] [place] 4717 Dec, [facility] [place] [facility] [address] [id number] [place] [address]- 1318 Dec, [facility] [place] [facility] [address] [id number] [place] 0540 Dec, [facility] [place] [facility] [address] [id number] [place] [address]- 8195 Oct, [facility] [place] [facility] [address] [id number] [place] [address]- 2831 Sep, [facility] [place] [facility] [address] [id number] [place] [address]- 9365 Sep, [facility] [place] [facility] [address] [id number] [place] [address]- 8842 Sep, [facility] [place] [facility] [address] [id number] [place] [address]- 1490 Sep, [facility] [place] [facility] [address] [id number] [place] [address]- 6051 Jun, [facility] [place] [facility] [address] [id number] [place] [address]- 8395 May, [facility] [place] [facility] [address] [id number] [place] [address] Apr, [facility] [place] [facility] [address] [id number] [place] [address] Apr, [facility] [place] [facility] [address] [id number] [place] [address] Apr, [facility] [place] [facility] [address] [id number] [place] [address] Feb, [facility] [place] [facility] [address] [id number] [place] [address] Feb, [facility] [place] [facility] [address] [id number] [place] [address] Jan, [facility] [place] [facility] [address] [id number] [place] [address] Jan, [facility] [place] [facility] [address] [id number] [place] [address] Jan, [facility] [place] [facility] [address] [id number] [place] [address] 31 Feb, 2010 [facility] [address] [id number] [place] [address] 30 Feb, 2010 [facility] [place] [facility] [address] [id number] [place] [address] 30 Feb, 2010 [facility] [address] [id number] [place] [address] 30 Feb, 2010 [facility] [place] [facility] [address] [id number] [place] [address]46 27 Feb, 2010 [facility] [address] [id number] [place] [address] 23 Feb, 2010 [facility] [place] [facility] [address] [id number] [place] [address] 20 Feb, 2010 [facility] [address] [facility] [id number] [place] [address] 18 Feb, 2010 [facility] [place] [facility] [address] [id number] [place] [address] 18 Feb, 2010 [facility] [place] [facility] [address] [id number] [place] [address] 06 Feb, 2010 [facility] [address] [facility] [id number] [place] [address]47 26 Jan, 2010 [facility] [place] [facility] [address] [id number] [place] [address]46 24 Dec, 2009 [facility] [place] [facility] [address] [id number] [place] [address] 14 Nov, 2009 [facility] [place] [facility] [address] [id number] [place] [address] 18 Mar, 2009 [facility] [place] [facility] [address] [id number] [place] [address] 12 Jan, 2009 [facility] [place] [facility] [address] [id number] [place] [address] Dec, [facility] [address] [facility] [id number] [place] [address] Dec, [facility] [address] [facility] [id number] [place] [address] Sep, [facility] [address] [facility] [id number] [place] [address] Jun, [place] [address] [facility] [id number] [place] [address] Mar, [place] [address] [facility] [id number] [place] [address] Jan, IMMUNIZATIONS No Known Immunizations SOCIAL HISTORY Never Assessed REASON FOR VISIT Repository Medication PLAN OF CARE VITAL SIGNS MEDICATIONS Medication Instructions Dosage Frequency Start Date End Date Duration Status Eliquis 5 mg Orally 2 times a day 1 tablet 12h 07 Aug, 2016 90 days Active RESULTS No Results PROCEDURES No [...]
--- OUTSIDE RECORDS SUMMARY | 2017-12-22 06:49 | XMS REPORT ---
Author Author DAY HUGHES [facility] Address [address] [place] [address] Care Team Providers Care Latin Professor Name Role Phone DAY HUGHES Unavailable PROBLEMS Type Condition ICD9-CM Code SBX04-FT Code Onset Dates Condition Status SNOMED Code Problem Hyperlipemia E78.5 Active 12728271 Problem Hypertension I10 Active 71311847 Problem CVA (cerebral vascular accident) I63.9 Active 899282648 Problem Cataracts, bilateral H26.9 Active 77786492 Problem Diverticulitis of intestine without perforation or abscess without bleeding, unspecified part of intestinal tract K57.92 Active 888403609 Problem Iron deficiency anemia due to chronic blood loss D50.0 Active 986666912 Problem 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 845917877 Problem Dysfunction of right eustachian tube H69.81 Active 10621910 Problem Peripheral vascular disease, unspecified I73.9 Active 368077674 Problem Lymphocytosis D72.820 Active 23920678 ALLERGIES Substance Reaction Event Type Date Status Flonase hives and itching Drug Allergy Jun, Active Gadolinium-containing Contrast Media nausea Non Drug Allergy Jun, Active SOCIAL HISTORY Never Assessed PLAN OF CARE Activity Details Follow Up 4 Weeks Reason:flank pain VITAL SIGNS Height 57 in 2016-07-06 Weight 138.5 lbs 2016-07-06 Temperature 98.4 degrees Fahrenheit 2016-07-06 Heart Rate 76 bpm 2016-07-06 Respiratory Rate 18 2016-07-06 BMI 29.97 kg/m2 2016-07-06 Blood pressure systolic 120 mmHg 2016-07-06 Blood pressure diastolic 70 mmHg 2016-07-06 MEDICATIONS Medication Instructions Dosage Frequency Start Date End Date Duration Status Magnesium 400 MG Orally Once a day as directed 24h Aug, Active Aspirin 81 MG Orally Once a day 1 tablet 24h Active Lisinopril 10 Orally Once a day LUPIN PHARMACE 1 tablet Active Primidone 50 mg Orally Once a day 4 tablets at bedtime 24h Feb, Active Atenolol 25 MG TAKE ONE TABLET BY MOUTH DAILY 30 Active Calcium Oral Once a day 2 tab 24h Active Tylenol with Codeine #3 300-30 mg 1-2 tablet by Oral route 4 times per day PRN July, Active Simvastatin 40 MG TAKE ONE TABLET BY MOUTH ONCE DAILY 30 Active Ketorolac Tromethamine 10 MG Orally every 6 hrs 1 tablet with food or milk as needed 6h Active Plavix 75 MG TAKE ONE TABLET BY MOUTH ONCE DAILY 90 Active Ranitidine HCl 150 MG TAKE ONE TABLET BY MOUTH DAILY 90 Active Meloxicam 15 MG TAKE ONE TABLET BY MOUTH DAILY 90 Active RESULTS No Results PROCEDURES Procedure Date Ordered Result Body Site [facility] VISIT ESTABLISHED PATIENT July 06, 2016 IMMUNIZATIONS No Known Immunizations MEDICAL (GENERAL) [...]
--- OUTSIDE RECORDS SUMMARY | 2017-12-22 06:49 | XMS REPORT ---
Author Author ROSENDO BARROW [facility] Address [address] [place] [address] Care Team Providers Care Booking Prizer Name Role Phone ROSENDO BARROW Unavailable PROBLEMS Type Condition ICD9-CM Code BSS53-PY Code Onset Dates Condition Status SNOMED Code Problem Hyperlipemia E78.5 Active 68827616 Problem Hypertension I10 Active 82653436 Problem CVA (cerebral vascular accident) I63.9 Active 723687817 Problem Cataracts, bilateral H26.9 Active 48537780 Problem Diverticulitis of intestine without perforation or abscess without bleeding, unspecified part of intestinal tract K57.92 Active 215857171 Problem Iron deficiency anemia due to chronic blood loss D50.0 Active 534587280 Problem 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 412176950 Problem Dysfunction of right eustachian tube H69.81 Active 64389682 Problem Peripheral vascular disease, unspecified I73.9 Active 827552347 Problem Lymphocytosis D72.820 Active 71956592 ALLERGIES Substance Reaction Event Type Date Status Flonase hives and itching Drug Allergy July, Active Gadolinium-containing Contrast Media nausea Non Drug Allergy July, Active SOCIAL HISTORY Never Assessed PLAN OF CARE Activity Details Follow Up Regular appt Reason: VITAL SIGNS Height 57 in 2016-08-02 Weight 137 lbs 2016-08-02 Temperature 98.2 degrees Fahrenheit 2016-08-02 Heart Rate 82 bpm 2016-08-02 Respiratory Rate 16 2016-08-02 BMI 29.64 kg/m2 2016-08-02 Blood pressure systolic 102 mmHg 2016-08-02 Blood pressure diastolic 64 mmHg 2016-08-02 MEDICATIONS Medication Instructions Dosage Frequency Start Date End Date Duration Status Primidone 50 mg Orally Once a day 4 tablets at bedtime 24h Feb, Active Calcium Oral Once a day 2 tab 24h Active Atenolol 25 MG Orally Once a day 1 tablet 24h Active Ranitidine HCl 150 MG Orally Once a day 1 tablet 24h Active Simvastatin 40 MG TAKE ONE TABLET BY MOUTH ONCE DAILY 30 Active Lisinopril 10 Orally Once a day LUPIN PHARMACE 1 tablet Active Tylenol with Codeine #3 300-30 mg 1-2 tablet by Oral route 4 times per day PRN July, Active RESULTS Name Result Date Reference Range CBC 2016-08-02 WBC 12.6 3.4-10.8 RBC 3.33 3.77-5.28 Hemoglobin 10.7 11.1-15.9 Hematocrit 32.8 34.0-46.6 MCV 99 79-97 MCH 32.1 26.6-33.0 MCHC 32.6 31.5-35.7 RDW 13.7 12.3-15.4 Platelets 350 150-379 Neutrophils 75 Lymphs 18 Monocytes 5 Eos 1 Basos 1 Immature Cells Neutrophils (Absolute) 9.4 1.4-7.0 Lymphs (Absolute) 2.2 0.7-3.1 Monocytes(Absolute) 0.7 0.1-0.9 Eos (Absolute) 0.1 0.0-0.4 Baso (Absolute) 0.1 0.0-0.2 Immature Granulocytes 0 Immature Grans (Abs) 0.0 0.0-0.1 NRBC Hematology Comments: PROCEDURES Procedure Date Ordered Result Body Site [facility] VISIT ESTABLISHED PATIENT August 02, 2016 HUGO, ROUTINE* August 02, 2016 IMMUNIZATIONS No Known Immunizations MEDICAL (GENERAL) [...] at via ba- hypotension 08/08 Hospitalization History H[facility]ochezia[facility] 07/27/16
--- OUTSIDE RECORDS SUMMARY | 2017-12-22 06:50 | XMS REPORT ---
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 Name Role Phone DAY HUGHES Unavailable PROBLEMS Type Condition ICD9-CM Code [id number] Code Onset Dates Condition Status SNOMED Code Problem Hyperlipemia E78.5 Active 38788913 Problem Hypertension I10 Active 20193512 Problem CVA (cerebral vascular accident) I63.9 Active 802038330 Problem Cataracts, bilateral H26.9 Active 44485972 Problem Diverticulitis of intestine without perforation or abscess without bleeding, unspecified part of intestinal tract K57.92 Active 054849356 Problem Iron deficiency anemia due to chronic blood loss D50.0 Active 730842745 Problem 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 447626862 Problem Dysfunction of right eustachian tube H69.81 Active 03891064 Problem Peripheral vascular disease, unspecified I73.9 Active 397654559 Problem Lymphocytosis D72.820 Active 37473423 ALLERGIES No Information ENCOUNTERS Encounter Location Date Diagnosis [facility] [id number] [place] [address] 67990- 4066 July, [facility] [id number] [place] [address] 86999- 8544 Feb, Arthralgia, unspecified joint M25.50 [facility] [id number] [place] [address] 96467- 9981 Feb, Arthralgia, unspecified joint M25.50 [facility] [id number] [place] [address] 75665- 2006 Dec, Arthralgia, unspecified joint M25.50 [facility] [id number] [place] [address] 55651- 5594 Dec, Right flank pain R10.9 ; Left foot pain M79.672 ; Arthralgia , unspecified joint M25.50 and Encounter for immunization Z23 [facility] [address] 57857- 8751 Dec, CVA (cerebral vascular accident) I63.9 [facility] [address] 37831- 8777 Dec, RUQ abdominal pain R10.11 [facility] [address] 82593- 0638 Dec, Right lower quadrant pain R10.31 ; Diverticulitis of intestine without perforation or abscess without bleeding, unspecified part of intestinal tract K57.92 and Internal hemorrhoids K64.8 [facility] [id number] [place] [address] 95811- 7906 Nov, [facility] [address] 20684- 0834 Oct, [facility] [address] 19061- 2105 Aug, Iron deficiency anemia due to chronic blood loss D50.0 [facility] [id number] [place] [address] 75261- 1856 Aug, Peripheral vascular disease, unspecified I73.9 and Colitis K52.9 [facility] [id number] [place] [address] 07873- 5978 Aug, H/O: GI bleed Z87.19 [facility] [id number] [place] [address] 23035- 9116 07 Aug, 2016 CVA (cerebral vascular accident) I63.9 [facility] [id number] [place] [address] 63422- 0763 Aug, RUQ abdominal pain R10.11 [facility] [address] 52107- 4003 July, RUQ abdominal pain R10.11 and Lymphocytosis D72.820 [facility] [id number] [place] [address] 17543- 8687 July, [facility] [id number] [place] [address] 02711- 3956 July, Colitis K52.9 [facility] [id number] [place] [address] [id number] July, [facility] [id number] [place] [address] 13185- 6109 Jun, Right flank pain R10.9 [facility] [id number] [place] [address] 348126- 7108 May, Urinary tract infection without hematuria, site unspecified N39.0 and Right flank pain R10.9 [facility] [id number] [place] [address] 20862- 5430 Feb, Acute non-recurrent maxillary sinusitis J01.00 and Need for hepatitis C screening test Z11.59 [facility] [id number] [place] [address] [id number] Jan, Dental examination Z01.20 [facility] [id number] [place] [address] [id number] Dec, Dental examination Z01.20 [facility] [id number] [place] [address] [id number] Dec, Dental examination Z01.20 [facility] [id number] [place] [address] 22013 2546 Dec, [facility] [id number] [place] [address] 65698 2546 Dec, [facility] [id number] [place] [address] [id number] Dec, Dental examination Z01.20 [facility] [id number] [place] [address] [id number]- 1969 Nov, [facility] [id number] [place] [address] [id number] Nov, Dental examination Z01.20 [facility] [id number] [place] [address] 38504- 2886 Oct, Arthralgia, unspecified joint M25.50 and Essential hypertension I10 [facility] [address] 18915- 1574 Oct, [facility] [id number] [place] [address] 62821 -3058 Sep, Bilateral otitis media, unspecified chronicity, unspecified otitis media type H66.93 [facility] [address] [id number] Sep, Dental examination Z01.20 [facility] [id number] [place] [address] [id number] Aug, 2015 Dental examination V72.2 [facility] [id number] [place] [address] 72229- 3138 14 Aug, 2015 Essential hypertension I10 and Muscle cramping R25.2 [facility] [id number] [place] [address] 48546- 4501 09 Aug, 2015 Tension-type headache, not intractable, unspecified chronicity pattern G44.209 ; Muscle cramping R25.2 and Right leg pain M79.604 [facility] [address] [place] [address] [id number] July, Dental examination Z01.20 [facility] [id number] [place] [address] [id number] July, Encounter for dental examination and cleaning without abnormal findings Z01.20 and Dental caries K02.9 [facility] [id number] [place] [address] [id number] Jun, Encounter for dental examination Z01.20 [facility] [id number] [place] [address] 89908- 9574 Apr, [facility] [address] 69824 -4757 Apr, Bronchitis J40 [facility] [address] 24875- 0644 Feb, Hyperlipemia E78.5 ; Carotid arterial disease I77.9 ; Tobacco use Z72.0 ; Hypertension I10 ; RBBB I45.10 and CVA (cerebral vascular accident) I63.9 [facility] [address] 32571- 4178 Feb, Status post CVA Z86.73 ; Dysfunction of right eustachian tube H69.81 and Essential hypertension I10 [facility] [address] 48974- 9043 Dec, Encounter for immunization Z23 [facility] [facility] [address] 17711- 7214 Oct, PVD (peripheral vascular disease) 443.9 and Weight loss 783.21 [facility] [address] 92823- 1229 Oct, PVD (peripheral vascular disease) 443.9 and Weight loss 783.21 [facility] [address] 35149- 3944 Aug, Hyperlipidemia 272.4 ; Carotid arterial disease 447.9 ; Tobacco dependency 305.1 ; Hypertension 401.9 ; RBBB 426.4 and CVA (cerebral infarction) 434.91 [facility] [address] 45741- 0000 Aug, [facility] [address] 45198- 5619 Aug, 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 [facility] [address] 35781- 9709 July, Chest pain, unspecified 786.50 ; Occlusion [...] for prophylactic vaccination and inoculation, Influenza V04.81 [facility] [address] 30641- 7763 Jun, [facility] [address] 58193- 8295 Jun, [facility] [address] 51843- 6002 May, [facility] [id number] [place] [address] 59343- 9608 May, [facility] [id number] [place] [address] 22740- 5617 May, [facility] [place] [id number] [place] [address] 65915- 8954 May, [facility] [address] 07228- 3970 Mar, [facility] [address] 73547- 9960 Mar, [facility] [address] [id number]- 3376 Mar, [facility] [place] [facility] [address] [id number] [place] [address]- 3318 Mar, [facility] [place] [facility] [address] [id number] [place] [address]- 2617 Mar, [facility] [place] [facility] [address] [id number] [place] [address]- 1718 Mar, [facility] [place] [facility] [address] [id number] [place] [address]- 6957 Mar, [facility] [place] [facility] [address] [id number] [place] [address]- 7137 Mar, [facility] [place] [facility] [address] [id number] [place] [address]- 5144 Mar, [facility] [place] [facility] [address] [id number] [place] [address]- 9803 Mar, [facility] [place] [facility] [address] [id number] [place] [address]- 0126 Feb, [facility] [place] [facility] [address] [id number] [place] [address]- 0382 Feb, [facility] [place] [facility] [address] [id number] [place] [address]- 8503 Feb, [facility] [place] [facility] [address] [id number] [place] [address]- 6479 Feb, [facility] [place] [facility] [address] [id number], [place] [address]- 4769 Feb, [facility] [place] [facility] [address] [id number] [place] 8084 Feb, [facility] [place] [facility] [address] [id number] [place] [address]- 8204 Feb, [facility] [place] [facility] [address] [id number] [place] [address]- 0005 Feb, [facility] [place] [facility] [address] [id number] [place] [address]- 3870 Jan, [facility] [place] [facility] [address] [id number] [place] [address]- 4623 Jan, [facility] [place] [facility] [address] [id number] [place] 4031 Nov, [facility] [place] [facility] [address] [id number] [place] [address]- 9124 Nov, [facility] [place] [facility] [address] [id number] [place] [address]- 7719 Sep, [facility] [place] [facility] [address] [id number] [place] [address]- 4817 Sep, [facility] [place] [facility] [address] [id number] [place] [address]- 7362 Sep, [facility] [place] [facility] [address] [id number] [place] [address]- 6890 Sep, [facility] [place] [facility] [address] [id number] [place] [address]- 8254 Aug, [facility] [place] [facility] [address] [id number] [place] [address]- 6313 Aug, [facility] [place] [facility] [address] [id number] [place] [address]- 1652 Aug, [facility] [place] [facility] [address] [id number] [place] [address]- 2379 Aug, [facility] [place] [facility] [address] [id number] [place] [address]- 5544 Aug, [facility] [place] [facility] [address] [id number] [place] [address]- 7620 Aug, [facility] [place] [facility] [address] [id number] [place] [address]- 2833 July, [facility] [place] [facility] [address] [id number] [place] [address]- 6577 July, [facility] [address] [id number] [place] [address]- 0665 July, [facility] [place] [facility] [address] [id number] [place] [address]- 5579 July, [facility] [place] [facility] [address] [id number] [place] [address]- 4198 Jun, [facility] [place] [facility] [address] [id number] [place] [address]- 8268 Jun, [facility] [place] [facility] [address] [id number] [place] [address]- 0738 Apr, [facility] [place] [facility] [address] [id number] [place] [address]- 1184 Apr, [facility] [place] [facility] [address] [id number] [place] [address]- 9554 Apr, [facility] [place] [facility] [address] [id number] [place] [address]- 3656 Apr, [facility] [place] [facility] [address] [id number] [place] [address]- 8174 Apr, [facility] [place] [facility] [address] [id number] [place] [address]- 0228 Apr, [facility] [place] [facility] [address] [id number] [place] [address]- 8439 Mar, [facility] [place] [facility] [address] [id number] [place] [address]- 1493 Mar, [facility] [place] [facility] [address] [id number] [place] [address]- 2881 Mar, [facility] [place] [facility] [address] [id number] [place] [address]- 3833 Mar, [facility] [place] [facility] [address] [id number] [place] [address]- 0157 Mar, [facility] [place] [facility] [address] [id number] [place] [address]- 7924 31 Feb, 2012 [facility] [address] [id number] [place] [address]- 5126 31 Feb, 2012 [facility] [address] [id number] [place] [address]- 5676 Feb, [facility] [address] [id number] [place] [address]- 5676 17 Feb, 2012 [facility] [address] [id number] [place] [address]- 6092 Feb, [facility] [address] [id number] [place] [address]- 7727 Feb, [facility] [address] [id number] [place] 4008 Feb, [facility] [address] [id number] [place] [address]- 9668 Feb, [facility] [address] [id number] [place] [address]- 2161 Feb, [facility] [place] [facility] [address] [id number] [place] [address]- 7765 Feb, [facility] [address] [id number] [place] [address]- 1926 Feb, [facility] [address] [id number] [place] [address]- 9066 Feb, [facility] [place] [facility] [address] [id number] [place] [address]- 1674 Jan, [facility] [place] [facility] [address] [id number] [place] [address]- 5446 Jan, [facility] [place] [facility] [address] [id number] [place] [address]- 6712 Jan, [facility] [place] [facility] [address] [id number] [place] [address]- 8685 Jan, [facility] [place] [facility] [address] [id number] [place] [address]- 6598 Jan, [facility] [place] [facility] [address] [id number] [place] [address]- 8876 Jan, [facility] [place] [facility] [address] [id number] [place] [address]- 0103 Jan, [facility] [place] [facility] [address] [id number] [place] [address]- 8775 Jan, [facility] [place] [facility] [address] [id number] [place] [address]- 6979 Jan, [facility] [place] [facility] [address] [id number] [place] [address]- 5058 Jan, [facility] [place] [facility] [address] [id number] [place] [address]- 1615 Jan, [facility] [place] [facility] [address] [id number] [place] [address]- 3327 Jan, [facility] [place] [facility] [address] [id number] [place] [address]- 5481 Jan, [facility] [place] [facility] [address] [id number] [place] [address]- 4796 Jan, [facility] [place] [facility] [address] [id number] [place] [address]- 3506 Jan, [facility] [place] [facility] [address] [id number], [place] [address]- 1337 Dec, [facility] [place] [facility] [address] [id number] [place] [address]- 2092 Dec, [facility] [place] [facility] [address] [id number] [place] [address]- 6599 Dec, [facility] [place] [facility] [address] [id number][place] 2379 Dec, [facility] [place] [facility] [address] [id number], [place] [address]- 1402 Oct, [facility] [address] [id number] [place] [address]- 1707 Oct, [facility] [place] [facility] [address] [id number] [place] [address]- 6626 Oct, [facility] [place] [facility] [address] [id number] [place] [address]- 4058 Sep, [facility] [place] [facility] [address] [id number] [place] [address]- 8639 Aug, [facility] [place] [facility] [address] [id number] [place] [address]- 7257 July, [facility] [place] [facility] [address] [id number] [place] [address]- 6042 July, [facility] [place] [facility] [address] [id number] [place] [address]- 5855 July, [facility] [place] [facility] [address] [id number] [place] [address]- 7069 July, [facility] [place] [facility] [address] [id number] [place] [address]- 6691 May, [facility] [place] [facility] [address] [id number] [place] [address]- 1463 May, [facility] [place] [facility] [address] [id number] [place] [address]- 0215 Mar, [facility] [place] [facility] [address] [id number] [place] [address]- 3780 Mar, [facility] [place] [facility] [address] [id number] [place] [address]- 0040 Mar, [facility] [place] [facility] [address] [id number] [place] [address]- 1621 Feb, [facility] [place] [facility] [address] [id number] [place] [address]- 2478 Feb, [facility] [place] [facility] [address] [id number] [place] [address]- 8944 13 Feb, 2012 [facility] [place] [facility] [address] [id number] [place] [address]- 7932 Feb, [facility] [place] [facility] [address] [id number] [place] [address]- 8099 Feb, [facility] [place] [facility] [address] [id number] [place] [address]- 4331 Feb, [facility] [place] [facility] [address] [id number] [place] [address]- 0625 Jan, [facility] [place] [facility] [address] [id number] [place] [address]- 9217 Jan, [facility] [place] [facility] [address] [id number] [place] [address]- 3203 Jan, [facility] [place] [facility] [address] [id number] [place] [address]- 5222 Jan, [facility] [place] [facility] [address] [id number] [place] [address]- 7254 Jan, [facility] [place] [facility] [address] [id number] [place] [address]- 7803 Jan, [facility] [place] [facility] [address] [id number] [place] [address]- 2748 Jan, [facility] [place] [facility] [address] [id number] [place] [address]- 5096 Jan, [facility] [place] [facility] [address] [id number], [place] [address]- 9041 Dec, [facility] [place] [facility] [address] [id number] [place] 3033 Dec, [facility] [place] [facility] [address] [id number] [place] [address]- 2555 Dec, [facility] [place] [facility] [address] [id number] [place] 9468 Dec, [facility] [place] [facility] [address] [id number] [place] [address]- 6945 Oct, [facility] [place] [facility] [address] [id number] [place] [address]- 8279 Sep, [facility] [place] [facility] [address] [id number] [place] [address]- 2774 Sep, [facility] [place] [facility] [address] [id number] [place] [address]- 8003 Sep, [facility] [place] [facility] [address] [id number] [place] [address]- 6285 Sep, [facility] [place] [facility] [address] [id number] [place] [address]- 4195 Jun, [facility] [place] [facility] [address] [id number] [place] [address]- 1307 May, [facility] [place] [facility] [address] [id number] [place] [address]- 7360 Apr, [facility] [place] [facility] [address] [id number] [place] [address]- 4875 Apr, [facility] [place] [facility] [address] [id number] [place] [address]- 6536 Apr, [facility] [place] [facility] [address] [id number] [place] [address]- 7978 Feb, [facility] [place] [facility] [address] [id number] [place] [address] Feb, [facility] [place] [facility] [address] [id number] [place] [address] Jan, [facility] [place] [facility] [address] [id number] [place] [address] Jan, [facility] [place] [facility] [address] [id number] [place] [address] Jan, [facility] [place] [facility] [address] [id number] [place] [address] 31 Feb, 2010 [facility] [address] [id number] [place] [address] 30 Feb, 2010 [facility] [place] [facility] [address] [id number] [place] [address] 30 Feb, 2010 [facility] [address] [id number] [place] [address] 30 Feb, 2010 [facility] [place] [facility] [address] [id number] [place] [address] 27 Feb, 2010 [facility] [address] [id number] [place] [address] 23 Feb, 2010 [facility] [place] [facility] [address] [id number] [place] [address] 20 Feb, 2010 [facility] [address] [facility] [id number] [place] [address] 18 Feb, 2010 [facility] [place] [facility] [address] [id number] [place] [address] 18 Feb, 2010 [facility] [place] [facility] [address] [id number] [place] [address] 06 Feb, 2010 [facility] [address] [facility] [id number] [place] [address] 26 Jan, 2010 [facility] [place] [facility] [address] [id number] [place] [address] 24 Dec, 2009 [facility] [place] [facility] [address] [id number], [place] [address] 14 Nov, 2009 [facility] [place] [facility] [address] [id number] [place] [address] 18 Mar, 2009 [facility] [place] [facility] [address] [id number] [place] [address] 12 Jan, 2009 [facility] [place] [facility] [address] [id number], [place] [address] Dec, [facility] [address] [facility] [id number], [place] [address] Dec, [facility] [address] [facility] [id number], [place] [address] Sep, [facility] [address] [facility] [id number], [place] [address] Jun, [facility] [address] [id number], [place] [address] Mar, [facility] [address] [facility] [id number], [place] [address] Jan, IMMUNIZATIONS No Known Immunizations SOCIAL HISTORY Never Assessed REASON FOR VISIT Bleeding Concerns PLAN OF CARE VITAL SIGNS MEDICATIONS Unknown [...]
--- OUTSIDE RECORDS SUMMARY | 2017-12-22 06:50 | XMS REPORT ---
Author Author DAY HUGHES [facility] Address [address] [place] [address] Care Team Providers Care Business English Instructor Name Role Phone DAY HUGHES Unavailable PROBLEMS Type Condition ICD9-CM Code FIE10-TC Code Onset Dates Condition Status SNOMED Code Problem Hyperlipemia E78.5 Active 26442765 Problem Hypertension I10 Active 87110088 Problem CVA (cerebral vascular accident) I63.9 Active 377395674 Problem Cataracts, bilateral H26.9 Active 55144484 Problem Diverticulitis of intestine without perforation or abscess without bleeding, unspecified part of intestinal tract K57.92 Active 677996864 Problem Iron deficiency anemia due to chronic blood loss D50.0 Active 325429815 Problem 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 113302853 Problem Dysfunction of right eustachian tube H69.81 Active 86130240 Problem Peripheral vascular disease, unspecified I73.9 Active 372879017 Problem Lymphocytosis D72.820 Active 02634246 ALLERGIES Substance Reaction Event Type Date Status Flonase hives and itching Drug Allergy Dec, Active Gadolinium-containing Contrast Media nausea Non Drug Allergy Dec, Active ENCOUNTERS Encounter Location Date Diagnosis [facility] [id number], [place] [address] July, [facility] [address], [place] [address] Feb, Arthralgia, unspecified joint M25.50 [facility] [id number] [place] [address]111- 7504 Feb, Arthralgia, unspecified joint M25.50 [facility] [id number], [place] [address] Dec, Arthralgia, unspecified joint M25.50 [facility] [id number] [place] [address] 88987- 4473 18 Dec, 2016 Right flank pain R10.9 ; Left foot pain M79.672 ; Arthralgia , unspecified joint M25.50 and Encounter for immunization Z23 [facility] [address] [address] Dec, CVA (cerebral vascular accident) I63.9 [facility] [address] [address]- [address] Dec, RUQ abdominal pain R10.11 [facility] [address] [address]- [address] Dec, Right lower quadrant pain R10.31 ; Diverticulitis of intestine without perforation or abscess without bleeding, unspecified part of intestinal tract K57.92 and Internal hemorrhoids K64.8 [facility] [address] [address]- [address] Nov, [facility] [address] [address]- [address] Oct, [facility] [address] [address]- [address] Aug, Iron deficiency anemia due to chronic blood loss D50.0 [facility] [address] [address]- 0504 Aug, Peripheral vascular disease, unspecified I73.9 and Colitis K52.9 [facility] [id number] [place] [address] 83263- 3314 14 Aug, 2016 H/O: GI bleed Z87.19 [facility] [address] [address]- 14[address] 07 Aug, 2016 CVA (cerebral vascular accident) I63.9 [facility] [address] [address]- [address] Aug, RUQ abdominal pain R10.11 [facility] [address], [place] [address] July, RUQ abdominal pain R10.[address] [facility] [address], [place] [address] July, [facility] [id number] [place] [address] 40984- 7181 July, Colitis K52.9 [facility] [id number] [place] [address] [id number] July, [facility] [id number] [place] [address] 96527- 2399 Jun, Right flank pain R10.9 [facility] [id number] [place] [address] 42591- 9845 May, Urinary tract infection without hematuria, site unspecified N39.0 and Right flank pain R10.9 [facility] [address], [place] [address] Feb, Acute non-recurrent maxillary sinusitis J01.00 and Need for hepatitis C screening test Z11.59 [facility] [address] [place] [address] [id number] Jan, Dental examination Z01.20 [facility] [id number] [place] [address] [id number] Dec, Dental examination Z01.20 [facility] [id number] [place] [address] [id number] Dec, Dental examination Z01.20 [facility] [id number] [place] [address]20 2546 Dec, [facility] [address], [place] [address] Dec, [facility] [id number] [place] [address] [id number] Dec, Dental examination Z01.20 [facility] [id number] [place] [address] 575168- 5027 Nov, [facility] [id number] [place] [address] [id number] Nov, Dental examination Z01.20 [facility] [id number] [place] [address] 419760- 2315 Oct, Arthralgia, unspecified joint M25.50 and Essential hypertension I10 [facility] [id number] [place] [address] 582496- 9051 Oct, [facility] [address] [address] -[address]37 Sep, Bilateral otitis media, unspecified chronicity, unspecified otitis media type H66.93 [facility] [id number] [place] [address] [id number] Sep, Dental examination Z01.20 [facility] [id number] [place] [address] [id number] 16 Aug, [address] [facility] [address] 21098- 4508 14 Aug, 2015 Essential hypertension I10 and Muscle cramping R25.2 [facility] [id number] [place] [address] 02310- 8345 09 Aug, 2015 Tension-type headache, not intractable, unspecified chronicity pattern G44.209 ; Muscle cramping R25.2 and Right leg pain M79.604 [facility] [address] [place] [address] [id number] July, Dental examination Z01.20 [facility] [id number] [place] [address] [id number] July, Encounter for dental examination and cleaning without abnormal findings Z01.20 and Dental caries K02.9 [facility] [id number] [place] [address] [id number] Jun, Encounter for dental examination Z01.20 [facility] [id number] [place] [address] 67373- 2239 Apr, [facility] [id number] [place] [address] 11062 -3478 Apr, Bronchitis J40 [place] [address] [address]- 2047 Feb, Hyperlipemia E78.5 ; Carotid arterial disease I77.9 ; Tobacco use Z72.0 ; Hypertension I10 ; RBBB I45.10 and CVA (cerebral vascular accident) I63.9 [facility] [address] 02056- 0931 Feb, Status post CVA Z86.73 ; Dysfunction of right eustachian tube H69.81 and Essential hypertension I10 [facility] [address] 71609- 3967 Dec, Encounter for immunization Z23 [facility] [id number] [place] [address] 42446- 5072 Oct, PVD (peripheral vascular disease) 443.9 and Weight loss 783.21 [facility] [id number] [place] [address] 23573- 6097 Oct, PVD (peripheral vascular disease) 443.9 and Weight loss 783.21 [facility] [id number] [place] [address] 56062- 8812 Aug, Hyperlipidemia 272.4 ; Carotid arterial disease 447.9 ; Tobacco dependency 305.1 ; Hypertension 401.9 ; RBBB 426.4 and CVA (cerebral infarction) 434.91 [facility] [id number] [place] [address] 45484- 2132 Aug, [facility] [address] 49314- 6277 Aug, 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 [id number] [place] [address] 43224- 7841 July, Chest pain, unspecified 786.50 ; Occlusion [...] for prophylactic vaccination and inoculation, Influenza V04.81 [facility] [address] 01282- 4328 Jun, [facility] [address] 23813- 7976 Jun, [facility] [id number] [place] [address] 53334- 2805 May, [facility] [id number] [place] [address] 69397- 2405 May, [facility] [id number] [place] [address] 64514- 5238 May, [facility] [address] [id number]- 3711 May, [facility] [address] 43759- 5889 Mar, [facility] [address] 84852- 2546 Mar, [facility] [place] [facility] [address] [id number] [place] [address]- 7625 Mar, [facility] [place] [facility] [address] [id number] [place] [address]- 9201 Mar, [facility] [place] [facility] [address] [id number] [place] [address]- 2739 Mar, [facility] [place] [facility] [address] [id number] [place] [address]- 7555 Mar, [facility] [place] [facility] [address] [id number] [place] [address]- 2947 Mar, [facility] [place] [facility] [address] [id number] [place] [address]- 5156 Mar, [facility] [place] [facility] [address] [id number] [place] [address]- 7552 Mar, [facility] [place] [facility] [address] [id number] [place] [address]- 1561 Mar, [facility] [place] [facility] [address] [id number] [place] [address]- 0591 Feb, [facility] [place] [facility] [address] [id number] [place] [address]- 5487 Feb, [facility] [place] [facility] [address] [id number] [place] [address]- 6284 Feb, [facility] [place] [facility] [address] [id number] [place] [address]- 5580 Feb, [facility] [place] [facility] [address] [id number] [place] 5692 Feb, [facility] [place] [facility] [address] [id number] [place] [address]- 3716 Feb, [facility] [place] [facility] [address] [id number] [place] [address]- 4107 Feb, [facility] [place] [facility] [address] [id number] [place] [address]- 8997 Feb, [facility] [place] [facility] [address] [id number] [place] [address]- 8141 Jan, [facility] [place] [facility] [address] [id number] [place] [address]- 8266 Jan, [facility] [place] [facility] [address] [id number] [place] [address]- 2741 Nov, [facility] [place] [facility] [address] [id number] [place] [address]- 7169 Nov, [facility] [place] [facility] [address] [id number] [place] [address]- 7229 Sep, [facility] [place] [facility] [address] [id number] [place] [address]- 6367 Sep, [facility] [place] [facility] [address] [id number] [place] [address]- 4626 Sep, [facility] [place] [facility] [address] [id number] [place] [address]- 7384 Sep, [facility] [place] [facility] [address] [id number] [place] [address]- 1311 Aug, [facility] [place] [facility] [address] [id number] [place] [address]- 1171 Aug, [facility] [place] [facility] [address] [id number] [place] [address]- 5744 Aug, [facility] [place] [facility] [address] [id number] [place] [address]- 6334 Aug, [facility] [place] [facility] [address] [id number] [place] [address]- 8865 Aug, [facility] [place] [facility] [address] [id number] [place] [address]- 0417 Aug, [facility] [place] [facility] [address] [id number] [place] [address]149 July, [facility] [place] [facility] [address] [id number] [place] [address]- 2169 July, [facility] [place] [facility] [address] [id number] [place] [address]- 0846 July, [facility] [place] [facility] [address] [id number] [place] [address]- 7041 July, [facility] [place] [facility] [address] [id number] [place] [address]- 8864 Jun, [facility] [place] [facility] [address] [id number] [place] [address]- 1470 Jun, [facility] [place] [facility] [address] [id number] [place] [address]- 8489 Apr, [facility] [place] [facility] [address] [id number] [place] [address]- 7795 Apr, [facility] [place] [facility] [address] [id number] [place] [address]- 6859 Apr, [facility] [place] [facility] [address] [id number] [place] [address]- 4046 Apr, [facility] [place] [facility] [address] [id number] [place] [address]- 1382 Apr, [facility] [place] [facility] [address] [id number] [place] [address]- 3232 Apr, [facility] [place] [facility] [address] [id number] [place] [address]- 9763 Mar, [facility] [place] [facility] [address] [id number] [place] [address]- 6965 Mar, [facility] [place] [facility] [address] [id number] [place] [address]- 8162 Mar, [facility] [place] [facility] [address] [id number] [place] [address]- 9430 Mar, [facility] [place] [facility] [address] [id number] [place] [address]- 1955 Mar, [facility] [address] [id number] [place] [address]- 9631 Feb, [facility] [address] [id number] [place] [address]- 3676 Feb, [facility] [address] [id number] [place] [address]- 7528 Feb, [facility] [address] [id number] [place] [address]- 9105 Feb, [facility] [address] [id number] [place] [address]- 6921 Feb, [facility] [address] [id number] [place] [address]- 7600 Feb, [facility] [address] [id number] [place] [address]- 4396 Feb, [facility] [address] [id number] [place] [address]- 3236 Feb, [facility] [address] [id number] [place] [address]- 0167 Feb, [facility] [address] [id number] [place] [address]- 9433 Feb, [facility] [address] [id number] [place] [address]- 7028 Feb, [facility] [address] [id number] [place] [address]- 2647 Feb, [facility] [address] [id number] [place] [address]- 0856 Jan, [facility] [address] [id number] [place] [address]- 4095 Jan, [facility] [address] [id number] [place] [address]- 0631 Jan, [facility] [place] [facility] [address] [id number] [place] [address]- 1986 Jan, [facility] [place] [facility] [address] [id number] [place] [address]- 7261 Jan, [facility] [place] [facility] [address] [id number] [place] [address]- 0411 Jan, [facility] [place] [facility] [address] [id number] [place] [address]- 4655 Jan, [facility] [place] [facility] [address] [id number] [place] [address]- 3619 Jan, [facility] [place] [facility] [address] [id number] [place] [address]- 0356 Jan, [facility] [place] [facility] [address] [id number] [place] [address]- 8443 Jan, [facility] [place] [facility] [address] [id number] [place] [address]- 3038 Jan, [facility] [place] [facility] [address] [id number] [place] [address]- 0057 Jan, [facility] [place] [facility] [address] [id number], [place] [address]- 5136 Jan, [facility] [place] [facility] [address] [id number], [place] [address]- 9606 Jan, [facility] [place] [facility] [address] [id number], [place] [address]- 9209 Jan, [facility] [place] [facility] [address] [id number], [place] [address]- 6570 Dec, [facility] [place] [facility] [address] [id number], [place] [address]- 0286 Dec, [facility] [place] [facility] [address] [id number], [place] [address]- 6125 Dec, [facility] [place] [facility] [address] [id number], [place] [address]- 3597 Dec, [facility] [address] [id number] [place] [address]- 0551 Oct, [facility] [place] [facility] [address] [id number] [place] [address]- 5927 Oct, [facility] [place] [facility] [address] [id number] [place] [address]- 5185 Oct, [facility] [place] [facility] [address] [id number] [place] [address]- 9303 Sep, [facility] [place] [facility] [address] [id number] [place] [address]- 2610 Aug, [facility] [place] [facility] [address] [id number] [place] [address]- 5631 July, [facility] [address] [id number] [place] [address]- 2041 July, [facility] [place] [facility] [address] [id number] [place] [address]- 9187 July, [facility] [address] [id number] [place] [address]- 0703 July, [facility] [place] [facility] [address] [id number] [place] [address]- 6328 May, [facility] [place] [facility] [address] [id number] [place] [address]- 0630 May, [facility] [place] [facility] [address] [id number] [place] [address]- 5839 Mar, [facility] [place] [facility] [address] [id number] [place] [address]- 9661 Mar, [facility] [place] [facility] [address] [id number] [place] [address]- 9727 Mar, [facility] [place] [facility] [address] [id number] [place] [address]- 9185 Feb, [facility] [place] [facility] [address] [id number] [place] [address]- 5885 24 Feb, 2012 [facility] [place] [facility] [address] [id number] [place] [address]- 7535 Feb, [facility] [place] [facility] [address] [id number] [place] 4736 Feb, [facility] [place] [facility] [address] [id number] [place] [address]- 9887 Feb, [facility] [place] [facility] [address] [id number] [place] [address]- 8755 Feb, [facility] [place] [facility] [address] [id number] [place] [address]- 0062 Jan, [facility] [place] [facility] [address] [id number] [place] [address]- 9073 Jan, [facility] [place] [facility] [address] [id number] [place] [address]- 1502 Jan, [facility] [place] [facility] [address] [id number] [place] [address]- 7161 Jan, [facility] [place] [facility] [address] [id number] [place] [address]- 3569 Jan, [facility] [place] [facility] [address] [facility] [id number] [place] [address]- 3332 Jan, [facility] [place] [facility] [address] [id number] [place] [address]- 9185 Jan, [facility] [place] [facility] [address] [id number] [place] [address]- 1259 Jan, [facility] [place] [facility] [address] [id number] [place] [address]- 8442 Dec, [facility] [place] [facility] [address] [id number] [place] [address]- 9656 Dec, [facility] [place] [facility] [address] [id number] [place] [address]- 8218 Dec, [facility] [place] [facility] [address] [id number] [place] [address]- 9301 Dec, [facility] [place] [facility] [address] [id number] [place] [address]- 5776 Oct, [facility] [place] [facility] [address] [id number] [place] [address]- 0175 Sep, [facility] [place] [facility] [address] [id number] [place] [address]- 2145 Sep, [facility] [place] [facility] [address] [id number] [place] [address] Sep, [facility] [place] [facility] [address] [id number] [place] [address] Sep, [facility] [place] [facility] [address] [id number] [place] [address] Jun, [facility] [place] [facility] [address] [id number] [place] [address] May, [facility] [place] [facility] [address] [id number] [place] [address] Apr, [facility] [place] [facility] [address] [id number] [place] [address] Apr, [facility] [place] [facility] [address] [id number] [place] [address] Apr, [facility] [place] [facility] [address] [id number] [place] [address] Feb, [facility] [place] [facility] [address] [id number] [place] [address] Feb, [facility] [place] [facility] [address] [id number] [place] [address] Jan, [facility] [place] [facility] [address] [id number] [place] [address] Jan, [facility] [place] [facility] [address] [id number] [place] [address] 09 Jan, 2011 [facility] [address] [id number] [place] [address] 31 Feb, 2010 [facility] [place] [facility] [address] [id number] [place] [address] 30 Feb, 2010 [facility] [address] [id number] [place] [address] 30 Feb, 2010 [facility] [place] [facility] [address] [id number] [place] [address] 30 Feb, 2010 [facility] [address] [id number] [place] [address] 27 Feb, 2010 [facility] [address] [id number] [place] [address] 23 Feb, 2010 [facility] [address] [id number] [place] [address] 20 Feb, 2010 [facility] [address] [id number] [place] [address] 18 Feb, 2010 [facility] [place] [facility] [address] [id number] [place] [address] 18 Feb, 2010 [facility] [address] [facility] [id number] [place] [address] 06 Feb, 2010 [facility] [address] [id number] [place] [address] Jan, [facility] [address] [id number] [place] [address] 24 Dec, 2009 [facility] [place] [facility] [address] [id number] [place] [address] 14 Nov, 2009 [facility] [place] [facility] [address] [id number] [place] [address] 18 Mar, 2009 [facility] [place] [facility] [address] [id number] [place] [address] Jan, [facility] [address] [facility] [id number] [address] Dec, [facility] [address] [facility] [id number], [place] [address] Dec, [facility] [address] [facility] [id number], [place] [address] Sep, [facility] [id number] [address] Jun, [facility] [address] [facility] [id number], [place] [address] Mar, [facility] [address] [facility] [id number], [place] [address] Jan, IMMUNIZATIONS No Known Immunizations SOCIAL HISTORY Never Assessed REASON FOR VISIT bleeding from colon--Mele Real MA PLAN OF CARE Activity Details Follow Up 2 - 3 Days Reason:Abd pain VITAL SIGNS Height 57 in 2016-12-26 Weight 138. lbs 2016-12-26 Temperature 98.5 degrees Fahrenheit 2016-12-26 Heart Rate 84 bpm 2016-12-26 Respiratory Rate 20 2016-12-26 BMI 29.86 kg/m2 2016-12-26 Blood pressure systolic 118 mmHg 2016-12-26 Blood pressure diastolic 78 mmHg 2016-12-26 MEDICATIONS Medication Instructions Dosage Frequency Start Date End Date Duration Status Simvastatin 40 MG TAKE ONE TABLET BY MOUTH ONCE DAILY 30 Active potassium 1 tab Active Ranitidine HCl 150 MG Orally Once a day 1 tablet 24h Active Tylenol with Codeine #3 300-30 mg 1-2 tablet by Oral route 4 times per day PRN July, Active Lisinopril 10 Orally Once a day LUPIN PHARMACE 1 tablet 90 Active Primidone 50 mg Orally Once a day 5 tablets at bedtime 24h Feb, Active Atenolol 25 MG Orally Once a day 1 tablet 24h Active Meloxicam 15 mg Orally Once a day 1 tablet only as needed 24h 30 days Active Cipro 500 mg Orally Twice a day 1 tablet 12h Dec, Dec, 10 day(s) Active Eliquis 5 mg Orally 2 times a day 1 tablet 12h Aug, Active Flagyl 500 mg Orally every 8 hrs 1 tablet 8h Dec, Dec, 10 day(s) Active Calcium Oral Once a day 2 tab 24h Active RESULTS Name Result Date Reference Range CBC 2016-12-26 WBC 9.8 3.4-10.8 RBC 5.04 3.77-5.28 Hemoglobin 12.9 11.1-15.9 Hematocrit 40.8 34.0-46.6 MCV 81 79-97 MCH 25.6 26.6-33.0 MCHC 31.6 31.5-35.7 RDW 19.3 12.3-15.4 Platelets 291 150-379 Neutrophils 68 Not Estab. Lymphs 22 Not Estab. Monocytes 7 Not Estab. Eos 2 Not Estab. Basos 1 Not Estab. Immature Cells Neutrophils (Absolute) 6.7 1.4-7.0 Lymphs (Absolute) 2.1 0.7-3.1 Monocytes(Absolute) 0.7 0.1-0.9 Eos (Absolute) 0.2 0.0-0.4 Baso (Absolute) 0.1 0.0-0.2 Immature Granulocytes 0 Not Estab. Immature Grans (Abs) 0.0 0.0-0.1 NRBC Hematology Comments: Xray : KUB (IN HOUSE) 2016-12-26 PROCEDURES Procedure Date Ordered Result Body Site LAB NOT BILLED BY [facility] Dec 26, 2016 [facility] VISIT ESTABLISHED PATIENT Dec 26, 2016 X-RAY EXAM OF ABDOMEN Dec 26, 2016 VENIPUNCT, ROUTINE* Dec 26, 2016 INSTRUCTIONS MEDICATIONS ADMINISTERED No Known Medications MEDICAL [...]
--- OUTSIDE RECORDS SUMMARY | 2017-12-22 06:51 | XMS REPORT ---
Author Author DAY HUGHES [facility] Address [address] [place] [address] Care Team Providers Care Dividend Clerk Name Role Phone DAY HUGHES Unavailable PROBLEMS Type Condition ICD9-CM Code [id number] Code Onset Dates Condition Status SNOMED Code Problem Hyperlipemia E78.5 Active 01760714 Problem Hypertension I10 Active 04520548 Problem CVA (cerebral vascular accident) I63.9 Active 503647546 Problem Cataracts, bilateral H26.9 Active 39282216 Problem Diverticulitis of intestine without perforation or abscess without bleeding, unspecified part of intestinal tract K57.92 Active 246964227 Problem Iron deficiency anemia due to chronic blood loss D50.0 Active 429850445 Problem 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 114694226 Problem Dysfunction of right eustachian tube H69.81 Active 80488338 Problem Peripheral vascular disease, unspecified I73.9 Active 569581540 Problem Lymphocytosis D72.820 Active 83304987 ALLERGIES Substance Reaction Event Type Date Status Flonase hives and itching Drug Allergy July, Active Gadolinium-containing Contrast Media nausea Non Drug Allergy July, Active SOCIAL HISTORY Never Assessed PLAN OF CARE Activity Details Follow Up 4 Weeks Reason:FU for abd pain VITAL SIGNS Height 57 in 2016-08-15 Weight 137.0 lbs 2016-08-15 Temperature 98.1 degrees Fahrenheit 2016-08-15 Heart Rate 88 bpm 2016-08-15 Respiratory Rate 20 2016-08-15 BMI 29.64 kg/m2 2016-08-15 Blood pressure systolic 120 mmHg 2016-08-15 Blood pressure diastolic 66 mmHg 2016-08-15 MEDICATIONS Medication Instructions Dosage Frequency Start Date End Date Duration Status Tylenol with Codeine #3 300-30 mg 1-2 tablet by Oral route 4 times per day PRN July, Active Primidone 50 mg Orally Once a day 4 tablets at bedtime 24h Feb, Active Calcium Oral Once a day 2 tab 24h Active Ranitidine HCl 150 MG Orally Once a day 1 tablet 24h Active Flagyl 500 mg Orally every 8 hrs 1 tablet 8h July, Aug, 10 day(s) Active Simvastatin 40 MG TAKE ONE TABLET BY MOUTH ONCE DAILY 30 Active Lisinopril 10 Orally Once a day LUPIN PHARMACE 1 tablet Active Atenolol 25 MG Orally Once a day 1 tablet 24h Active RESULTS Name Result Date Reference Range CBC 2016-08-15 WBC 10.3 3.4-10.8 RBC 3.96 3.77-5.28 Hemoglobin 11.7 11.1-15.9 Hematocrit 37.8 34.0-46.6 MCV 96 79-97 MCH 29.5 26.6-33.0 MCHC 31.0 31.5-35.7 RDW 14.8 12.3-15.4 Platelets 426 150-379 Neutrophils 77 Lymphs 16 Monocytes 5 Eos 1 Basos 1 Immature Cells Neutrophils (Absolute) 7.9 1.4-7.0 Lymphs (Absolute) 1.7 0.7-3.1 Monocytes(Absolute) 0.5 0.1-0.9 Eos (Absolute) 0.1 0.0-0.4 Baso (Absolute) 0.1 0.0-0.2 Immature Granulocytes 0 Immature Grans (Abs) 0.0 0.0-0.1 NRBC Hematology Comments: PROCEDURES Procedure Date Ordered Result [email or web address] VISIT ESTABLISHED PATIENT August 15, 2016 VENIPUNCT, ROUTINE* August 15, 2016 IMMUNIZATIONS No Known Immunizations MEDICAL (GENERAL) [...]
--- OUTSIDE RECORDS SUMMARY | 2017-12-22 06:51 | XMS REPORT ---
Author Author DAY HUGHES [facility] Address [address] [place] [address] Care Team Providers Care Systems Development Consultant Name Role Phone DAY HUGHES Unavailable PROBLEMS Type Condition ICD9-CM Code SOC02-SV Code Onset Dates Condition Status SNOMED Code Problem Hyperlipemia E78.5 Active 58029161 Problem Hypertension I10 Active 36736637 Problem CVA (cerebral vascular accident) I63.9 Active 408507068 Problem Cataracts, bilateral H26.9 Active 33390070 Problem Diverticulitis of intestine without perforation or abscess without bleeding, unspecified part of intestinal tract K57.92 Active 999877545 Problem Iron deficiency anemia due to chronic blood loss D50.0 Active 532635208 Problem 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 167621400 Problem Dysfunction of right eustachian tube H69.81 Active 64093143 Problem Peripheral vascular disease, unspecified I73.9 Active 293075008 Problem Lymphocytosis D72.820 Active 33512422 ALLERGIES No Information SOCIAL HISTORY Never Assessed PLAN OF CARE VITAL SIGNS MEDICATIONS Medication Instructions Dosage Frequency Start Date End Date Duration Status Eliquis 5 mg Orally 2 times a day 1 tablet 12h Aug, Active RESULTS No Results PROCEDURES No Known procedures IMMUNIZATIONS No Known Immunizations MEDICAL (GENERAL) HISTORY [...]
--- OUTSIDE RECORDS SUMMARY | 2017-12-22 06:51 | XMS REPORT ---
Author Author DAY HUGHES [facility] Address [address] [place] [address] Care Team Providers Care Automotive Product Engineer Name Role Phone DAY HUGHES Unavailable PROBLEMS Type Condition ICD9-CM Code OSN42-DX Code Onset Dates Condition Status SNOMED Code Problem Hyperlipemia E78.5 Active 93287908 Problem Hypertension I10 Active 66582198 Problem CVA (cerebral vascular accident) I63.9 Active 175984695 Problem Cataracts, bilateral H26.9 Active 40084998 Problem Diverticulitis of intestine without perforation or abscess without bleeding, unspecified part of intestinal tract K57.92 Active 690851444 Problem Iron deficiency anemia due to chronic blood loss D50.0 Active 757582534 Problem 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 931415902 Problem Dysfunction of right eustachian tube H69.81 Active 72843197 Problem Peripheral vascular disease, unspecified I73.9 Active 044550193 Problem Lymphocytosis D72.820 Active 56198375 ALLERGIES No Information SOCIAL HISTORY Never Assessed [...]
--- OUTSIDE RECORDS SUMMARY | 2017-12-22 06:52 | XMS REPORT ---
Author Author KIRBY BURTON [facility] Address [address], [place] [id number] Care Team Providers Care Route Delivery Service Driver Name Role Phone KIRBY BURTON Unavailable PROBLEMS Type Condition ICD9-CM Code NTN06-AU Code Onset Dates Condition Status SNOMED Code Problem Hyperlipemia E78.5 Active 77450251 Problem Hypertension I10 Active 49792817 Problem CVA (cerebral vascular accident) I63.9 Active 065417374 Problem Cataracts, bilateral H26.9 Active 97764695 Problem Diverticulitis of intestine without perforation or abscess without bleeding, unspecified part of intestinal tract K57.92 Active 444138882 Problem Iron deficiency anemia due to chronic blood loss D50.0 Active 751321885 Problem 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 441088877 Problem Dysfunction of right eustachian tube H69.81 Active 12674060 Problem Peripheral vascular disease, unspecified I73.9 Active 943184242 Problem Lymphocytosis D72.820 Active 42633632 ALLERGIES No Information ENCOUNTERS Encounter Location Date Diagnosis [place] [id number] [place] [address] 74557- 6380 July, [facility] [id number] [place] [address] 76160- 7136 Feb, Arthralgia, unspecified joint M25.50 [facility] [id number] [place] [address] 51919- 1205 Feb, Arthralgia, unspecified joint M25.50 [facility] [id number] [place] [address] 32831- 8588 Dec, Arthralgia, unspecified joint M25.50 [place] [address] [place] [id number] [place] [address] 69746- 3535 Dec, Right flank pain R10.9 ; Left foot pain M79.672 ; Arthralgia , unspecified joint M25.50 and Encounter for immunization Z23 [place] [address] 24657- 6985 Dec, CVA (cerebral vascular accident) I63.9 [place] [address] 83824- 6481 Dec, RUQ abdominal pain R10.11 [place] [address] 50148- 5332 Dec, Right lower quadrant pain R10.31 ; Diverticulitis of intestine without perforation or abscess without bleeding, unspecified part of intestinal tract K57.92 and Internal hemorrhoids K64.8 [place] [address] 25209- 6092 Nov, [place] [address] 36616- 9126 Oct, [place] [address] 64990- 3518 Aug, Iron deficiency anemia due to chronic blood loss D50.0 [place] [address] 72114- 8122 Aug, Peripheral vascular disease, unspecified I73.9 and Colitis K52.9 [place] [address] 13129- 7272 Aug, H/O: GI bleed Z87.19 [place] [address] 89633- 1846 07 Aug, 2016 CVA (cerebral vascular accident) I63.9 [place] [address] 23952- 8937 Aug, RUQ abdominal pain R10.11 [place] [address] 30647- 7580 July, RUQ abdominal pain R10.11 and Lymphocytosis D72.820 [facility] [id number] [place] [address] 32743- 6745 July, [facility] [id number] [place] [address] 034960- 6628 July, Colitis K52.9 [facility] [address] [id number] July, [facility] [id number] [place] [address] 08498- 5860 Jun, Right flank pain R10.9 [facility] [id number] [place] [address] 235719- 7577 May, Urinary tract infection without hematuria, site unspecified N39.0 and Right flank pain R10.9 [facility] [id number] [place] [address] 232632- 5868 Feb, Acute non-recurrent maxillary sinusitis J01.00 and Need for hepatitis C screening test Z11.59 [facility] [id number] [place] [address] [id number] Jan, Dental examination Z01.20 [facility] [id number] [place] [address] [id number] Dec, Dental examination Z01.20 [facility] [id number] [place] [address] [id number] Dec, Dental examination Z01.20 [facility] [id number] [place] [address] 31075 2546 Dec, [facility] [id number] [place] [address] 89195- 8986 Dec, [facility] [address] [id number] [place] [address] [id number] Dec, Dental examination Z01.20 [facility] [id number] [place] [address] 393061- 6020 Nov, [facility] [id number] [place] [address] [id number] Nov, Dental examination Z01.20 [facility] [id number] [place] [address] 48491- 1346 Oct, Arthralgia, unspecified joint M25.50 and Essential hypertension I10 [facility] [address] 22581- 7512 Oct, [facility] [address] 65504 -6509 Sep, Bilateral otitis media, unspecified chronicity, unspecified otitis media type H66.93 [facility] [address] [id number] [place] [address] [id number] Sep, Dental examination Z01.20 [facility] [address] [id number] [place] [address] [id number] Aug, Dental examination V72.2 [facility] [address] 77035- 1991 14 Aug, 2015 Essential hypertension I10 and Muscle cramping R25.2 [facility] [address] [place] [id number] [place] [address] 79547- 3595 09 Aug, 2015 Tension-type headache, not intractable, unspecified chronicity pattern G44.209 ; Muscle cramping R25.2 and Right leg pain M79.604 [facility] [address] [address] [id number] [place] [address] [id number] July, Dental examination Z01.20 [facility] [address] [address] [id number] [place] [address] [id number] July, Encounter for dental examination and cleaning without abnormal findings Z01.20 and Dental caries K02.9 [facility] [address] [address] [id number] [place] [address] [id number] Jun, Encounter for dental examination Z01.20 [facility] [address] 54679- 5816 Apr, [facility] [id number] [place] [address] 21274 -2495 Apr, Bronchitis J40 [place] [address] 42128- 2849 Feb, Hyperlipemia E78.5 ; Carotid arterial disease I77.9 ; Tobacco use Z72.0 ; Hypertension I10 ; RBBB I45.10 and CVA (cerebral vascular accident) I63.9 [place] [address] 52090- 9162 Feb, Status post CVA Z86.73 ; Dysfunction of right eustachian tube H69.81 and Essential hypertension I10 [place] [address] 82158- 5220 Dec, Encounter for immunization Z23 [place] [address] 38458- 4415 Oct, PVD (peripheral vascular disease) 443.9 and Weight loss 783.21 [place] [address] 50908- 1488 Oct, PVD (peripheral vascular disease) 443.9 and Weight loss 783.21 [place] [address] 68290- 8489 Aug, Hyperlipidemia 272.4 ; Carotid arterial disease 447.9 ; Tobacco dependency 305.1 ; Hypertension 401.9 ; RBBB 426.4 and CVA (cerebral infarction) 434.91 [place] [address] [place] [id number] [place] [address] 36334- 4552 Aug, [place] [address] 06978- 3909 Aug, 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 [place] [address] 42672- 0590 July, Chest pain, unspecified 786.50 ; Occlusion [...] for prophylactic vaccination and inoculation, Influenza V04.81 [place] [address] [place] [id number] [place] [address] 92196- 6476 Jun, [place] [address] [place] [id number] [place] [address] 06941- 7616 Jun, [place] [address] [place] [id number] [place] [address] 04759- 9486 May, [place] [address] [place] [id number] [place] [address] 57901- 4356 May, [place] [address] [place] [id number] [place] [address] 06555- 2546 May, [place] [address] [place] [id number] [place] [address] 47729- 2546 May, [place] [address] 25667 2546 Mar, [place] [address] [place] [id number] [place] [address] 26824- 2546 Mar, [place] [address] [place] [id number] [place] [address] 46476- 8717 Mar, [facility] [place] [facility] [address] [id number] [place] [address]- 6979 Mar, [facility] [place] [facility] [address] [id number] [place] [address]- 6570 Mar, [facility] [place] [facility] [address] [id number] [place] [address]- 8699 Mar, [facility] [place] [facility] [address] [id number] [place] [address]- 6828 Mar, [facility] [place] [facility] [address] [id number] [place] [address]- 0784 Mar, [facility] [place] [facility] [address] [id number] [place] [address]- 3547 Mar, [facility] [place] [facility] [address] [id number] [place] [address]- 9652 Mar, [facility] [place] [facility] [address] [id number] [place] [address]- 2966 Feb, [facility] [place] [facility] [address] [id number] [place] [address]- 2738 Feb, [facility] [place] [facility] [address] [id number] [place] [address]- 4452 Feb, [facility] [place] [facility] [address] [id number] [place] [address]- 9698 Feb, [facility] [place] [facility] [address] [id number] [address]- 8961 Feb, [facility] [place] [facility] [address] [id number] [place] [address]- 6085 Feb, [facility] [place] [facility] [address] [id number] [place] [address]- 6164 Feb, [facility] [place] [facility] [address] [id number] [place] 8533 Feb, [facility] [place] [facility] [address] [id number] [place] [address]- 0211 Jan, [facility] [place] [facility] [address] [id number] [place] [address]- 6699 Jan, [facility] [place] [facility] [address] [id number] [place] [address]- 7259 Nov, [facility] [place] [facility] [address] [id number] [place] [address]- 2904 Nov, [facility] [place] [facility] [address] [id number] [place] [address]- 1732 Sep, [facility] [place] [facility] [address] [id number] [place] [address]- 9159 Sep, [facility] [place] [facility] [address] [id number] [place] [address]- 0979 Sep, [facility] [place] [facility] [address] [id number] [place] [address]- 0951 Sep, [facility] [place] [facility] [address] [id number] [place] [address]- 8672 Aug, [facility] [place] [facility] [address] [id number] [place] [address]- 9537 Aug, [facility] [place] [facility] [address] [id number] [place] [address]- 6381 Aug, [facility] [place] [facility] [address] [id number] [place] [address]- 0545 Aug, [facility] [place] [facility] [address] [id number] [place] [address]- 0236 Aug, [facility] [place] [facility] [address] [id number] [place] [address]- 5689 Aug, [facility] [place] [facility] [address] [id number] [place] [address]- 5083 July, [facility] [place] [facility] [address] [id number] [place] [address]- 1777 July, [facility] [place] [facility] [address] [id number] [place] [address]- 2692 July, [facility] [place] [facility] [address] [id number] [place] [address]- 6665 July, [facility] [place] [facility] [address] [id number] [place] [address]- 0655 Jun, [facility] [place] [facility] [address] [id number] [place] [address]- 1134 Jun, [facility] [place] [facility] [address] [id number] [place] [address]- 9043 Apr, [facility] [place] [facility] [address] [id number] [place] [address]- 2823 Apr, [facility] [place] [facility] [address] [id number] [place] [address]- 1180 Apr, [facility] [place] [facility] [address] [id number] [place] [address]- 5137 Apr, [facility] [place] [facility] [address] [id number] [place] [address]- 5221 Apr, [facility] [place] [facility] [address] [id number] [place] [address]- 1551 Apr, [facility] [place] [facility] [address] [id number] [place] [address]- 4064 Mar, [facility] [place] [facility] [address] [id number] [place] [address]- 7991 Mar, [facility] [place] [facility] [address] [id number] [place] [address]- 4805 Mar, [facility] [place] [facility] [address] [id number] [place] [address]- 6623 Mar, [facility] [place] [facility] [address] [id number] [place] [address]- 0235 Mar, [facility] [place] [facility] [address] [id number], [place] [address]- 4481 Feb, [facility] [address] [id number] [place] [address]- 2431 Feb, [facility] [address] [id number] [place] [address]- 7296 Feb, [facility] [address] [id number] [place] [address]- 8086 Feb, [facility] [address] [id number] [place] [address]- 8377 Feb, [facility] [address] [id number] [place] [address]- 6842 Feb, [facility] [address] [id number] [place] [address]- 7544 Feb, [facility] [address] [facility] [id number] [place] [address]- 0493 Feb, [facility] [address] [id number] [place] [address]- 5742 Feb, [facility] [address] [id number] [place] [address]- 9973 Feb, [facility] [address] [facility] [id number] [place] [address]- 8672 Feb, [facility] [address] [id number] [place] [address]- 6271 Feb, [facility] [place] [facility] [address] [id number], [place] [address]- 1541 Jan, [facility] [place] [facility] [address] [id number] [place] [address]- 6594 Jan, [facility] [place] [facility] [address] [facility] [id number] [place] [address]- 4285 Jan, [facility] [place] [facility] [address] [facility] [id number] [place] [address]- 8238 Jan, [facility] [place] [facility] [address] [id number] [place] [address]- 5645 Jan, [facility] [place] [facility] [address] [id number] [place] [address]- 5074 Jan, [facility] [place] [facility] [address] [id number] [place] [address]- 3357 Jan, [facility] [place] [facility] [address] [id number] [place] [address]- 0461 Jan, [facility] [place] [facility] [address] [id number] [place] [address]- 4035 Jan, [facility] [place] [facility] [address] [id number] [place] [address]- 2995 Jan, [facility] [place] [facility] [address] [id number] [place] [address]- 4348 Jan, [facility] [place] [facility] [address] [id number] [place] [address]- 8925 Jan, [facility] [place] [facility] [address] [id number] [place] [address]- 5997 Jan, [facility] [place] [facility] [address] [id number] [place] [address]- 6566 Jan, [facility] [place] [facility] [address] [id number] [place] [address]- 1494 Jan, [facility] [place] [facility] [address] [id number] [place] [address]- 6689 Dec, [facility] [place] [facility] [address] [id number] [place] [address]- 9643 Dec, [facility] [place] [facility] [address] [id number] [place] 1285 Dec, [facility] [place] [facility] [address] [id number] [place] [address]- 6384 Dec, [facility] [place] [facility] [address] [id number] [place] [address]- 6903 Oct, [facility] [address] [id number] [place] [address]- 6915 Oct, [facility] [place] [facility] [address] [id number] [place] [address]- 6772 Oct, [facility] [place] [facility] [address] [id number] [place] [address]- 0758 Sep, [facility] [place] [facility] [address] [id number] [place] [address]- 3858 Aug, [facility] [address] [id number] [place] [address]- 6186 July, [facility] [place] [facility] [address] [id number] [place] [address]- 0309 July, [facility] [place] [facility] [address] [id number] [place] [address]- 1697 July, [facility] [place] [facility] [address] [id number] [place] [address]- 8017 July, [facility] [place] [facility] [address] [id number] [place] [address]- 9708 May, [facility] [place] [facility] [address] [id number] [place] [address]- 6312 May, [facility] [place] [facility] [address] [id number] [place] [address]- 3395 Mar, [facility] [place] [facility] [address] [id number], [place] [address]- 6877 Mar, [facility] [place] [facility] [address] [id number] [place] [address]- 2063 Mar, [facility] [place] [facility] [address] [id number] [place] [address]- 0636 Feb, [facility] [place] [facility] [address] [id number] [place] [address]- 1111 Feb, [facility] [place] [facility] [address] [id number] [place] [address]- 4629 13 Feb, 2012 [facility] [place] [facility] [address] [id number] [place] [address]- 8965 Feb, [facility] [place] [facility] [address] [id number] [place] [address]- 2796 Feb, [facility] [place] [facility] [address] [id number] [place] [address]- 3903 Feb, [facility] [place] [facility] [address] [id number] [place] [address]- 2251 Jan, [facility] [place] [facility] [address] [id number] [place] [address]- 9943 Jan, [facility] [place] [facility] [address] [id number] [place] [address]- 0339 Jan, [facility] [place] [facility] [address] [id number] [place] [address]- 1321 Jan, [facility] [place] [facility] [address] [id number] [place] [address]- 6060 Jan, [facility] [place] [facility] [address] [id number] [place] [address]- 1904 Jan, [facility] [place] [facility] [address] [facility] [id number] [place] [address]- 5078 Jan, [facility] [place] [facility] [address] [id number] [place] [address]- 4643 Jan, [facility] [place] [facility] [address] [id number], [place] [address]- 0593 Dec, [facility] [place] [facility] [address] [id number] [place] [address]- 3377 Dec, [facility] [place] [facility] [address] [facility] [id number] [place] [address]- 8728 Dec, [facility] [place] [facility] [address] [id number] 6915 Dec, [facility] [place] [facility] [address] [id number] [place] [address]- 5235 Oct, [facility] [place] [facility] [address] [id number] [place] [address]- 1559 Sep, [facility] [place] [facility] [address] [id number] [place] [address]- 2336 Sep, [facility] [place] [facility] [address] [id number] [place] [address]- 4192 Sep, [facility] [place] [facility] [address] [id number] [place] [address]- 9832 Sep, [facility] [place] [facility] [address] [id number] [place] [address]- 6222 Jun, [facility] [place] [facility] [address] [id number] [place] [address]- 8412 May, [facility] [place] [facility] [address] [id number] [place] [address]- 0505 Apr, [facility] [place] [facility] [address] [id number] [place] [address]- 5051 Apr, [facility] [place] [facility] [address] [id number] [place] [address]- 5286 Apr, [facility] [place] [facility] [address] [id number] [place] [address]- 4454 Feb, [facility] [place] [facility] [address] [id number] [place] [address]- 9417 Feb, [facility] [place] [facility] [address] [id number] [place] [address] Jan, [facility] [place] [facility] [address] [id number] [place] [address] Jan, [facility] [place] [facility] [address] [id number] [place] [address] Jan, [facility] [place] [facility] [address] [id number], [place] [address] 31 Feb, 2010 [facility] [address] [id number] [place] [address] 30 Feb, 2010 [facility] [place] [facility] [address] [id number] [place] [address] 30 Feb, 2010 [facility] [address] [facility] [id number] [place] [address] 30 Feb, 2010 [facility] [place] [facility] [address] [id number] [place] [address] 27 Feb, 2010 [facility] [address] [id number] [place] [address] 23 Feb, 2010 [facility] [place] [facility] [address] [id number] [place] [address] 20 Feb, 2010 [facility] [address] [facility] [id number] [place] [address] 18 Feb, 2010 [facility] [place] [facility] [address] [facility] [id number] [place] [address] 18 Feb, 2010 [facility] [address] [facility] [id number] [place] [address] 06 Feb, 2010 [facility] [place] [facility] [address] [facility] [id number] [place] [address] 26 Jan, 2010 [facility] [place] [facility] [address] [facility] [id number], [place] [address] 24 Dec, 2009 [facility] [place] [facility] [address] [id number], [place] [address] 14 Nov, 2009 [facility] [place] [facility] [address] [id number], [place] [address] 18 Mar, 2009 [facility] [place] [facility] [address] [facility] [id number], [place] [address] 12 Jan, 2009 [facility] [place] [facility] [address] [facility] [id number], [place] [address] 15 Dec, 2008 [facility] [place] [facility] [address] [facility] [id number] [place] [id number] Dec, [facility] [address] [facility] [id number], [place] [address] Sep, [facility] [address] [facility] [id number], [place] [address] Jun, [facility] [address] [facility] [id number], [place] [address] Mar, [facility] [address] [facility] [id number], [place] [address] Jan, IMMUNIZATIONS No Known Immunizations SOCIAL HISTORY Never Assessed REASON FOR VISIT Lab (walk-in) PLAN OF CARE VITAL SIGNS MEDICATIONS Unknown Medications RESULTS Name Result Date Reference Range CBC w/ MANUAL DIFF 2016-09-23 WBC 6.2 3.4-10.8 RBC 4.26 3.77-5.28 Hemoglobin 11.0 11.1-15.9 Hematocrit 36.5 34.0-46.6 MCV 86 79-97 MCH 25.8 26.6-33.0 MCHC 30.1 31.5-35.7 RDW 17.3 12.3-15.4 Platelets 300 150-379 Neutrophils 49 Lymphs 38 Monocytes 8 Eos 4 Basos 1 Neutrophils Absolute 3.0 1.4-7.0 Lymphs (Absolute) 2.4 0.7-3.1 Monocytes(Absolute) 0.5 0.1-0.9 Eos (Absolute Value) 0.2 0.0-0.4 Baso(Absolute) 0.1 0.0-0.2 Differential Comment Appear normal. RBC Comment Appear normal. Normal Platelet Comment Adequate Adequate PROCEDURES Procedure Date Ordered Result Body Site LAB NOT BILLED BY [facility] September 23, 2016 VENIPUNCT, ROUTINE* September 23, 2016 INSTRUCTIONS MEDICATIONS ADMINISTERED No Known Medications [...]
--- OUTSIDE RECORDS SUMMARY | 2017-12-22 06:58 | XMS REPORT | Continuity of Care Document ---
Author Author [facility] Address Unknown Phone Unavailable Allergies Active Description Code Type Severity Reaction Onset Reported/Identified Relationship to Patient Clinical Status Yes Flonase Drug Allergy N/A N/A 10/13/2008 Yes Flonase Drug Allergy 10/13/2008 Yes lisinopril Drug Allergy 10/13/2008 Yes MRI DYE MRI DYE Severe ANAPHYLAXIS 01/22/2013 Yes Gadolinium-Containing Contrast Media Drug Allergy N/A N/A 01/29/2013 Yes fluticasone [id number] Drug Allergy Unknown RASH 01/30/2017 Medications There is no data. Problems Date Dx Coded Attending Type Code [...] Closed Fracture Of Rib(s) Unspecified 02/15/2008 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, DAY S 729.5 Pain In Limb 02/15/2008 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, DAY S 807.00 Closed Fracture [...] Closed Fracture Of Rib(s) Unspecified 02/15/2008 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, DAY S 729.5 Pain In Limb 02/15/2008 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, DAY S 807.00 Closed Fracture Of Rib(s) Unspecified 02/15/2008 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, DAY S 729.5 Pain In Limb 02/15/2008 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, DAY S 807.00 Closed Fracture Of Rib(s) Unspecified 02/15/2008 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, DAY S 729.5 Pain In Limb 02/15/2008 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, DAY S 807.00 Closed Fracture Of Rib(s) Unspecified 02/15/2008 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, DAY S 729.5 Pain In Limb 02/15/2008 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, DAY S 807.00 Closed Fracture Of Rib(s) Unspecified 02/15/2008 MIMS DO, ELVIA K 729.5 Pain In Limb 02/15/2008 MIMS DO, ELVIA K 807.00 Closed Fracture Of Rib(s) Unspecified 02/15/2008 MIMS DO, ELVIA K 729.5 Pain In Limb 02/15/2008 MIMS DO, ELVIA K 807.00 Closed Fracture Of Rib(s) Unspecified 02/15/2008 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, DAY S 729.5 Pain In Limb 02/15/2008 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, DAY S 807.00 Closed Fracture Of Rib(s) Unspecified 02/15/2008 DONTAE BURTON MD 729.5 Pain In Limb 02/15/2008 ARTIE ORTIZ, DONTAE 807.00 Closed Fracture Of Rib(s) Unspecified 02/15/2008 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, DAY S 729.5 Pain In Limb 02/15/2008 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, DAY S 807.00 Closed Fracture Of Rib(s) Unspecified 02/15/2008 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, DAY S 729.5 Pain In Limb 02/15/2008 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, DAY S 807.00 Closed Fracture [...] 724.1 Pain In Thoracic Spine 04/15/2008 ELLEN ADAMS DAY S 401.1 ESSENTIAL HYPERTENSION BENIGN 04/15/2008 ELLEN ADAMS DAY S 724.1 Pain In Thoracic Spine 04/15/2008 FELICITA DO ELVIA K 401.1 ESSENTIAL HYPERTENSION BENIGN 04/15/2008 MIMS , ELVIA K 724.1 Pain In Thoracic Spine 04/15/2008 ROSENDO BARROW MD 401.1 ESSENTIAL HYPERTENSION BENIGN 04/15/2008 ROSENDO BARROW MD 724.1 Pain In Thoracic Spine 04/15/2008 MIMS DO ELVIA K 401.1 ESSENTIAL HYPERTENSION BENIGN 04/15/2008 FELICITA FUNES ELVIA K 724.1 Pain In Thoracic Spine 04/15/2008 ROSENDO BARROW MD 401.1 ESSENTIAL HYPERTENSION BENIGN 04/15/2008 ROSENDO BARROW MD 724.1 Pain In Thoracic Spine 04/15/2008 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, DAY S 401.1 ESSENTIAL HYPERTENSION BENIGN 04/15/2008 ELLEN ADAMS DAY S 724.1 Pain In Thoracic Spine 04/15/2008 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, DAY S 401.1 ESSENTIAL HYPERTENSION BENIGN 04/15/2008 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, DAY S 724.1 Pain In Thoracic Spine 04/15/2008 ELLEN ADAMS DAY S 401.1 ESSENTIAL HYPERTENSION BENIGN 04/15/2008 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, DAY S 724.1 Pain In Thoracic Spine 04/15/2008 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, DAY S 401.1 ESSENTIAL HYPERTENSION BENIGN 04/15/2008 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, DAY S 724.1 Pain In Thoracic Spine 04/15/2008 MIMS DO, ELVIA K 401.1 ESSENTIAL HYPERTENSION BENIGN 04/15/2008 MIMS DO, ELVIA K 724.1 Pain In Thoracic Spine 04/15/2008 MIMS DO, ELVIA K 401.1 ESSENTIAL HYPERTENSION BENIGN 04/15/2008 MIMS DO, ELVIA K 724.1 Pain In Thoracic Spine 04/15/2008 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, DAY S 401.1 ESSENTIAL HYPERTENSION BENIGN 04/15/2008 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, DAY S 724.1 Pain In Thoracic Spine 04/15/2008 ARTIE ORTIZ, ALI 401.1 ESSENTIAL HYPERTENSION BENIGN 04/15/2008 ARTIE ORTIZ, ALI 724.1 Pain In Thoracic Spine 04/15/2008 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, DAY S 401.1 ESSENTIAL HYPERTENSION BENIGN 04/15/2008 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, DAY S 724.1 Pain In Thoracic Spine 04/15/2008 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, DAY S 401.1 ESSENTIAL HYPERTENSION BENIGN 04/15/2008 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, DAY S 724.1 Pain In Thoracic Spine 04/15/2008 SCHROEDER DDS, HIRAM 401.1 ESSENTIAL HYPERTENSION BENIGN 04/15/2008 SCHROEDER DDS, HIRAM 724.1 Pain In Thoracic Spine 07/14/2008 FELICITA DO ELVIA K 381.81 Dysfunction Of Eustachian Tube 07/14/2008 FELICITA DO, ELVIA K 625.6 Stress Incontinence Female 07/14/2008 381.81 Dysfunction Of Eustachian Tube 07/14/2008 625.6 Stress Incontinence Female 07/14/2008 MIMS DO ELVIA K 381.81 Dysfunction Of Eustachian Tube 07/14/2008 MIMS DO, ELVIA K 625.6 Stress Incontinence Female 07/14/2008 381.81 Dysfunction Of Eustachian Tube 07/14/2008 625.6 Stress Incontinence Female 07/14/2008 MIMS DO ELVIA K 381.81 Dysfunction Of Eustachian Tube 07/14/2008 MIMS DO ELVIA K 625.6 Stress Incontinence Female 07/14/2008 LUCIO MIMS DOA K 381.81 Dysfunction Of Eustachian Tube 07/14/2008 MIMS DO ELVAI K 625.6 Stress Incontinence Female 07/14/2008 381.81 [...] BARROW MD 625.6 Stress Incontinence Female 07/14/2008 ELLEN ADAMS DAY S 381.81 Dysfunction Of Eustachian Tube 07/14/2008 ALYSSA HUGHES APRNA S 625.6 Stress Incontinence Female 07/14/2008 LUCIO MIMS DOA K 381.81 Dysfunction Of Eustachian Tube 07/14/2008 MIMS LUCIO FUNESA K 625.6 Stress Incontinence Female 07/14/2008 ROSENDO BARROW MD 381.81 Dysfunction Of Eustachian Tube 07/14/2008 ROSENDO BARROW MD 625.6 Stress Incontinence Female 07/14/2008 ELVIA MIMS DO K 381.81 Dysfunction Of Eustachian Tube 07/14/2008 ELVIA MIMS DO K 625.6 Stress Incontinence Female 07/14/2008 ROSENDO BARROW MD 381.81 Dysfunction Of Eustachian Tube 07/14/2008 ROSENDO BARROW MD 625.6 Stress Incontinence Female 07/14/2008 ELLEN ADAMS DAY S 381.81 Dysfunction Of Eustachian Tube 07/14/2008 ELLEN ADAMS DAY S 625.6 Stress Incontinence Female 07/14/2008 ELLEN ADAMS DAY S 381.81 Dysfunction Of Eustachian Tube 07/14/2008 MAGNUS HUGHES APRNNDA S 625.6 Stress Incontinence Female 07/14/2008 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, DAY S 381.81 Dysfunction Of Eustachian Tube 07/14/2008 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, DAY S 625.6 Stress Incontinence Female 07/14/2008 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, DAY S 381.81 Dysfunction Of Eustachian Tube 07/14/2008 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, DAY S 625.6 Stress Incontinence Female 07/14/2008 MIMS DO, ELVIA K 381.81 Dysfunction Of Eustachian Tube 07/14/2008 MIMS DO, ELVIA K 625.6 Stress Incontinence Female 07/14/2008 MIMS DO, ELVIA K 381.81 Dysfunction Of Eustachian Tube 07/14/2008 MIMS DO, ELVIA K 625.6 Stress Incontinence Female 07/14/2008 ELLEN ADAMS DAY S 381.81 Dysfunction Of Eustachian Tube 07/14/2008 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, DAY S 625.6 Stress Incontinence Female 07/14/2008 DONTAE BURTON MD 381.81 Dysfunction Of Eustachian Tube 07/14/2008 DONTAE BURTON MD 625.6 Stress Incontinence Female 07/14/2008 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 DAY S 381.81 Dysfunction Of Eustachian Tube 07/14/2008 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, DAY S 625.6 Stress Incontinence Female 07/14/2008 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, DAY S 381.81 Dysfunction Of Eustachian Tube 07/14/2008 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, DAY S 625.6 Stress Incontinence Female 07/14/2008 HIRAM SCHROEDER DDS 381.81 Dysfunction Of Eustachian Tube 07/14/2008 HIRAM SCHROEDER DDS 625.6 Stress Incontinence Female 04/13/2009 MIMS DO, ELVIA K 386.10 Peripheral Vertigo 04/13/2009 MIMS DO, ELVIA K 780.4 Dizziness And Giddiness 04/13/2009 386.10 Peripheral Vertigo 04/13/2009 780.4 Dizziness And Giddiness 04/13/2009 MIMS DO, ELVIA K 386.10 Peripheral Vertigo 04/13/2009 MIMS DO, ELVIA K 780.4 Dizziness And Giddiness 04/13/2009 386.10 Peripheral Vertigo 04/13/2009 780.4 Dizziness And Giddiness 04/13/2009 MIMS DO, [...] HUGHES APRNNDA S 386.10 Peripheral Vertigo 04/13/2009 MAGNUS HUGHES APRNNDA S 780.4 Dizziness And Giddiness 04/13/2009 MIMS DO, ELVIA K 386.10 Peripheral Vertigo 04/13/2009 MIMS DO, ELVIA K 780.4 Dizziness And Giddiness 04/13/2009 ROSENDO BARROW MD 386.10 Peripheral Vertigo 04/13/2009 ROSENDO BARROW MD 780.4 Dizziness And Giddiness 04/13/2009 MIMS DO, ELVIA K 386.10 Peripheral Vertigo 04/13/2009 MIMS , ELVIA K 780.4 Dizziness And Giddiness 04/13/2009 [...] DAY S 386.10 Peripheral Vertigo 04/13/2009 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, DAY S 780.4 Dizziness And Giddiness 04/13/2009 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, DAY S 386.10 Peripheral Vertigo 04/13/2009 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, DAY S 780.4 Dizziness And Giddiness 04/13/2009 MIMS DO, ELVIA K 386.10 Peripheral Vertigo 04/13/2009 MIMS DO, ELVIA K 780.4 Dizziness And Giddiness 04/13/2009 MIMS DO, ELVIA K 386.10 Peripheral Vertigo 04/13/2009 MIMS DO, ELVAI K 780.4 Dizziness And Giddiness 04/13/2009 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, DAY S 386.10 Peripheral Vertigo 04/13/2009 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, DAY S 780.4 Dizziness And Giddiness 04/13/2009 ARTIE ORTIZ, ALI 386.10 Peripheral Vertigo 04/13/2009 ARTIE ORTIZ, ALI 780.4 Dizziness And Giddiness 04/13/2009 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, DAY S 386.10 Peripheral Vertigo 04/13/2009 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, DAY S 780.4 Dizziness And Giddiness 04/13/2009 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, DAY S 386.10 Peripheral Vertigo 04/13/2009 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, DAY S 780.4 Dizziness And Giddiness 04/13/2009 SCHROEDER DDS, HIRAM 386.10 Peripheral Vertigo 04/13/2009 SCHROEDER DDS, HIRAM 780.4 Dizziness And Giddiness 06/16/2009 ELVIA MIMS DO K 995.20 Unspecified Adverse Effect Of Unspecified Drug, Medicinal And Biological Substance, Not Elsewhere Classified 06/16/2009 995.20 Unspecified Adverse Effect Of Unspecified Drug, Medicinal And Biological Substance, Not Elsewhere Classified 06/16/2009 ELVIA MIMS DO K 995.20 Unspecified Adverse Effect Of Unspecified Drug, Medicinal And Biological Substance, Not Elsewhere Classified 06/16/2009 995.20 Unspecified Adverse Effect Of Unspecified Drug, Medicinal And Biological Substance, Not Elsewhere Classified 06/16/2009 ELVIA MIMS DO K 995.20 Unspecified [...] And Biological Substance, Not Elsewhere Classified 06/16/2009 MAGNUS HUGHES APRNNDA S 995.20 Unspecified Adverse Effect Of Unspecified [...] Biological Substance, Not Elsewhere Classified 06/16/2009 MIMS DOLUCIOA K 995.20 Unspecified Adverse Effect Of Unspecified Drug, Medicinal And Biological Substance, Not Elsewhere Classified 06/16/2009 DAY HUGHES APRN S 995.20 Unspecified Adverse Effect Of Unspecified Drug, Medicinal And Biological Substance, Not Elsewhere Classified 06/16/2009 DONTAE BURTON MD 995.20 Unspecified Adverse Effect Of Unspecified [...] Biological Substance, Not Elsewhere Classified 11/26/2009 MIMS ELVIA FUNES K 724.2 LUMBAGO/ LOW BACK PAIN 11/26/2009 [...] 11/26/2009 724.2 LUMBAGO/ LOW BACK PAIN 11/26/2009 ROSENDO BARROW MD 724.2 LUMBAGO/ LOW BACK PAIN 11/26/2009 ROSENDO BARROW MD 724.2 LUMBAGO/ LOW BACK PAIN 11/26/2009 DAY HUGHES APRN 724.2 LUMBAGO/ LOW BACK PAIN 11/26/2009 ELVIA MIMS DO 724.2 LUMBAGO/ LOW BACK PAIN 11/26/2009 ROSENDO BARROW MD 724.2 LUMBAGO/ LOW BACK PAIN 11/26/2009 MIMS DO, ELVIA K 724.2 LUMBAGO/ LOW BACK PAIN 11/26/2009 ROSENDO BARROW MD 724.2 LUMBAGO/ LOW BACK PAIN 11/26/2009 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, DAY S 724.2 LUMBAGO/ LOW BACK PAIN 11/26/2009 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, DAY S 724.2 LUMBAGO/ LOW BACK PAIN 11/26/2009 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, DAY S 724.2 LUMBAGO/ LOW BACK PAIN 11/26/2009 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, DAY S 724.2 LUMBAGO/ LOW BACK PAIN 11/26/2009 MIMS DO, ELVIA K 724.2 LUMBAGO/ LOW BACK PAIN 11/26/2009 MIMS DO, ELVIA K 724.2 LUMBAGO/ LOW BACK PAIN 11/26/2009 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, DAY S 724.2 LUMBAGO/ LOW BACK PAIN 11/26/2009 ARTIE ORTIZ, DONTAE 724.2 LUMBAGO/ LOW BACK PAIN 11/26/2009 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, DAY S 724.2 LUMBAGO/ LOW BACK PAIN 11/26/2009 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, DAY S 724.2 LUMBAGO/ LOW BACK PAIN 11/26/2009 ELDA GALINDO, HIRAM 724.2 LUMBAGO/ LOW BACK PAIN 12/08/2009 MIMS LUCIO FUNESA K 465.9 Acute Upper Respiratory Infections Of [...] Respiratory Infections Of Unspecified Site 12/08/2009 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, DAY S 465.9 Acute Upper [...] Respiratory Infections Of Unspecified Site 12/08/2009 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, DAY S 465.9 Acute Upper Respiratory Infections Of Unspecified Site 12/08/2009 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, DAY S 465.9 Acute Upper Respiratory Infections Of Unspecified Site 12/08/2009 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, DAY S 465.9 Acute Upper Respiratory Infections Of Unspecified Site 12/08/2009 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, DAY S 465.9 Acute Upper Respiratory Infections Of Unspecified Site 12/08/2009 MIMS DO, ELVIA K 465.9 Acute Upper Respiratory Infections Of Unspecified Site 12/08/2009 MIMS DO, ELVIA K 465.9 Acute Upper Respiratory Infections Of Unspecified Site 12/08/2009 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, DAY S 465.9 Acute Upper Respiratory Infections Of Unspecified Site 12/08/2009 DONTAE BURTON MD 465.9 Acute Upper Respiratory Infections Of Unspecified Site 12/08/2009 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, DYA S 465.9 Acute Upper Respiratory Infections Of Unspecified Site 12/08/2009 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, DAY S 465.9 Acute Upper Respiratory Infections Of Unspecified Site 12/08/2009 HIRAM SCHROEDER DDS 465.9 Acute Upper Respiratory Infections Of Unspecified Site 12/17/2009 MIMS DO, ELVIA K 461.0 Acute Maxillary Sinusitis 12/17/2009 461.0 Acute Maxillary Sinusitis 12/17/2009 MIMS DO, ELVIA K 461.0 Acute Maxillary Sinusitis 12/17/2009 461.0 Acute Maxillary Sinusitis 12/17/2009 MIMS DO, ELVIA K 461.0 Acute Maxillary Sinusitis 12/17/2009 MIMS DO ELVIA K 461.0 Acute Maxillary Sinusitis 12/17/2009 461.0 Acute Maxillary Sinusitis 12/17/2009 461.0 Acute Maxillary Sinusitis 12/17/2009 461.0 Acute Maxillary Sinusitis 12/17/2009 ROSENDO BARROW MD 461.0 Acute Maxillary Sinusitis 12/17/2009 ROSENDO BARROW MD 461.0 Acute Maxillary Sinusitis 12/17/2009 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, DAY S 461.0 Acute Maxillary Sinusitis 12/17/2009 MIMS DO ELVIA K 461.0 Acute Maxillary Sinusitis 12/17/2009 ROSENDO BARROW MD 461.0 Acute Maxillary Sinusitis 12/17/2009 MIMS DO ELVIA K 461.0 Acute Maxillary Sinusitis 12/17/2009 ROSENDO BARROW MD 461.0 Acute Maxillary Sinusitis 12/17/2009 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, DAY S 461.0 Acute Maxillary Sinusitis 12/17/2009 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, DAY S 461.0 Acute Maxillary Sinusitis 12/17/2009 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, DAY S 461.0 Acute Maxillary Sinusitis 12/17/2009 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, DAY S 461.0 Acute Maxillary Sinusitis 12/17/2009 MIMS DO ELVIA K 461.0 Acute Maxillary Sinusitis 12/17/2009 MIMS DO, ELVIA K 461.0 Acute Maxillary Sinusitis 12/17/2009 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, DAY S 461.0 Acute Maxillary Sinusitis 12/17/2009 DONTAE BURTON MD 461.0 Acute Maxillary Sinusitis 12/17/2009 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, DAY S 461.0 Acute Maxillary Sinusitis 12/17/2009 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, DAY S 461.0 Acute Maxillary Sinusitis 12/17/2009 HIRAM SCHROEDER DDS 461.0 Acute Maxillary Sinusitis 03/13/2010 FELICITA FUNES ELVIA K 368.11 Worsening Vision Started Suddenly 03/13/2010 MIMS DO ELVIA K 372.30 Conjunctivitis 03/13/2010 368.11 Worsening [...] ALYSSA HUGHES APRNA S 372.30 Conjunctivitis 03/13/2010 MIMS DO, ELVIA K 368.11 Worsening Vision Started Suddenly 03/13/2010 MIMS DO ELVIA K 372.30 Conjunctivitis 03/13/2010 ROSENDO BARROW MD 368.11 Worsening Vision Started Suddenly 03/13/2010 ROSENDO BARROW MD 372.30 Conjunctivitis 03/13/2010 MIMS DO ELVIA K 368.11 Worsening Vision Started Suddenly 03/13/2010 MIMS DO ELVIA K 372.30 Conjunctivitis 03/13/2010 ROSENDO BARROW MD 368.11 Worsening Vision Started Suddenly 03/13/2010 ROSENDO BARROW MD 372.30 Conjunctivitis 03/13/2010 ALYSSA HUGHES APRNA S 368.11 Worsening Vision Started Suddenly 03/13/2010 ALYSSA HUGHES APRNA S 372.30 Conjunctivitis 03/13/2010 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, DAY S 368.11 Worsening Vision Started Suddenly 03/13/2010 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, DAY S 372.30 Conjunctivitis 03/13/2010 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, DAY S 368.11 Worsening Vision Started Suddenly 03/13/2010 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, DAY S 372.30 Conjunctivitis 03/13/2010 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, DAY S 368.11 Worsening Vision Started Suddenly 03/13/2010 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, DAY S 372.30 Conjunctivitis 03/13/2010 MIMS DO, ELVIA K 368.11 Worsening Vision Started Suddenly 03/13/2010 MIMS DO, ELVIA K 372.30 Conjunctivitis 03/13/2010 MIMS DO, ELVIA K 368.11 Worsening Vision Started Suddenly 03/13/2010 MIMS DO, ELVIA K 372.30 Conjunctivitis 03/13/2010 ELLEN ADAMS DAY S 368.11 Worsening Vision Started Suddenly 03/13/2010 ELLEN ADAMS, DAY S 372.30 Conjunctivitis 03/13/2010 DONTAE BURTON MD 368.11 Worsening Vision Started Suddenly 03/13/2010 DONTAE BURTON MD 372.30 Conjunctivitis 03/13/2010 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, DAY S 368.11 Worsening Vision Started Suddenly 03/13/2010 ELLEN ADAMS DAY S 372.30 Conjunctivitis 03/13/2010 ELLEN ADAMS DAY S 368.11 Worsening Vision Started Suddenly 03/13/2010 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, DAY S 372.30 Conjunctivitis 03/13/2010 HIRAM SCHROEDER [...] MD 435.9 Unspecified Transient Cerebral Ischemia 03/18/2010 DAY HUGHES APRN S 300.00 Anxiety State Unspecified 03/18/2010 MAGNUS HUGHES APRNNDA S 379.91 Pain In Or Around Eye 03/18/2010 DAY HUGHES APRN S 435.9 Unspecified Transient Cerebral Ischemia 03/18/2010 [...] 435.9 Unspecified Transient Cerebral Ischemia 03/18/2010 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, DAY S 300.00 Anxiety State Unspecified 03/18/2010 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, DAY S 379.91 Pain In Or Around Eye 03/18/2010 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, DAY S 435.9 Unspecified Transient Cerebral Ischemia 03/18/2010 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, DAY S 300.00 Anxiety State Unspecified 03/18/2010 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, DAY S 379.91 Pain In Or Around Eye 03/18/2010 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, DAY S 435.9 Unspecified Transient Cerebral Ischemia 03/18/2010 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, DAY S 300.00 Anxiety State Unspecified 03/18/2010 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, DAY S 379.91 Pain In Or Around Eye 03/18/2010 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, DAY S 435.9 Unspecified Transient Cerebral Ischemia 03/18/2010 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, DAY S 300.00 Anxiety State Unspecified 03/18/2010 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, DAY S 379.91 Pain In Or Around Eye 03/18/2010 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, DAY S 435.9 Unspecified Transient [...] 435.9 Unspecified Transient Cerebral Ischemia 03/18/2010 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 DAY S 300.00 Anxiety State Unspecified 03/18/2010 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, DAY S 379.91 Pain In Or Around Eye 03/18/2010 ELLEN ADAMS DAY S 435.9 Unspecified Transient Cerebral Ischemia 03/18/2010 DONTAE BURTON MD 300.00 Anxiety State Unspecified 03/18/2010 DONTAE BURTON MD 379.91 Pain In Or Around Eye 03/18/2010 DONTAE BURTON MD 435.9 Unspecified Transient Cerebral Ischemia 03/18/2010 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 DAY S 300.00 Anxiety State Unspecified 03/18/2010 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 DAY S 379.91 Pain In Or Around Eye 03/18/2010 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 DAY S 435.9 Unspecified Transient Cerebral Ischemia 03/18/2010 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, DAY S 300.00 Anxiety State Unspecified 03/18/2010 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, DAY S 379.91 Pain In Or Around Eye 03/18/2010 ELLEN ADAMS DAY S 435.9 Unspecified Transient Cerebral Ischemia 03/18/2010 HIRAM SCHROEDER DDS 300.00 Anxiety State Unspecified 03/18/2010 HIRAM SCHROEDER DDS 379.91 Pain In Or Around Eye 03/18/2010 HIRAM SCHROEDER DDS 435.9 Unspecified Transient Cerebral Ischemia 04/01/2010 MIMS [...] MD 443.9 PERIPHERAL VASCULAR DISEASE UNSPECIFIED 04/01/2010 MAGNUS HUGHES APRNNDA S 443.9 PERIPHERAL VASCULAR DISEASE UNSPECIFIED 04/01/2010 ELVIA MIMS DO K 443.9 PERIPHERAL VASCULAR DISEASE UNSPECIFIED 04/01/2010 ROSENDO BARROW MD 443.9 PERIPHERAL VASCULAR DISEASE UNSPECIFIED 04/01/2010 MIMS DOELVIA K 443.9 PERIPHERAL VASCULAR DISEASE UNSPECIFIED 04/01/2010 ROSENDO BARROW MD 443.9 PERIPHERAL VASCULAR DISEASE UNSPECIFIED 04/01/2010 MAGNUS HUGHES APRNNDA S 443.9 PERIPHERAL VASCULAR DISEASE UNSPECIFIED 04/01/2010 MAGNSU HUGHES APRNNDA S 443.9 PERIPHERAL VASCULAR DISEASE UNSPECIFIED 04/01/2010 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, DAY S 443.9 PERIPHERAL VASCULAR DISEASE UNSPECIFIED 04/01/2010 ELLEN ADAMS DAY S 443.9 PERIPHERAL VASCULAR DISEASE UNSPECIFIED 04/01/2010 MIMS DOLUCIOA K 443.9 PERIPHERAL VASCULAR DISEASE UNSPECIFIED 04/01/2010 MIMS DOLUCIOA K 443.9 PERIPHERAL VASCULAR DISEASE UNSPECIFIED 04/01/2010 ELLEN ADAMS DAY S 443.9 PERIPHERAL VASCULAR DISEASE UNSPECIFIED 04/01/2010 DONTAE BURTON MD 443.9 PERIPHERAL VASCULAR DISEASE UNSPECIFIED 04/01/2010 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, DAY S 443.9 PERIPHERAL VASCULAR [...] BARROW MD 786.50 Chest Pain 04/07/2010 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, 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 786.50 Chest Pain 04/07/2010 MIMS DO, ELVIA K 786.50 Chest Pain 04/07/2010 ROSENDO BARROW MD 786.50 Chest Pain 04/07/2010 MIMS DO, ELVIA K 786.50 Chest Pain 04/07/2010 ROSENDO BARROW MD 786.50 Chest Pain 04/07/2010 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, 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 786.50 Chest Pain 04/07/2010 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, 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 786.50 Chest Pain 04/07/2010 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, 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 786.50 Chest Pain 04/07/2010 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.] ADAMS DAY S 272.0 PURE HYPERCHOLESTEROLEMIA 05/05/2010 MAGNUS HUGHES [...] APRNNDA S 272.0 PURE HYPERCHOLESTEROLEMIA 05/05/2010 ELLEN KEMPN DAY S 438.9 UNSPECIFIED LATE EFFECTS OF [...] UNSPECIFIED LATE EFFECTS OF CEREBROVASCULAR DISEASE 05/05/2010 DONTAE BURTON MD 272.0 PURE HYPERCHOLESTEROLEMIA 05/05/2010 DONTAE BURTON MD 438.9 UNSPECIFIED LATE EFFECTS OF CEREBROVASCULAR DISEASE 05/05/2010 ELLEN ADAMS DAY S 272.0 PURE HYPERCHOLESTEROLEMIA 05/05/2010 MAGNUS HUGHES [...] Actinic Keratosis 05/25/2010 702.0 Actinic Keratosis 05/25/2010 ROSENDO BARROW MD 702.0 Actinic Keratosis 05/25/2010 ROSENDO BARROW MD 702.0 Actinic Keratosis 05/25/2010 ELLEN KEMPN, DAY S 702.0 Actinic Keratosis 05/25/2010 FELICITA FUNES ELVIA K 702.0 Actinic Keratosis 05/25/2010 ROSENDO BARROW MD 702.0 Actinic Keratosis 05/25/2010 MIMS DO ELVIA K 702.0 Actinic Keratosis 05/25/2010 ROSENDO BARROW MD 702.0 Actinic Keratosis 05/25/2010 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, DAY S 702.0 Actinic Keratosis 05/25/2010 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, DAY S 702.0 Actinic Keratosis 05/25/2010 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, DAY S 702.0 Actinic Keratosis 05/25/2010 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, DAY S 702.0 Actinic Keratosis 05/25/2010 FELICITA FUNES ELVIA K 702.0 Actinic Keratosis 05/25/2010 FELICITA FUNES ELVIA K 702.0 Actinic Keratosis 05/25/2010 ELLEN ADAMS, DAY S 702.0 Actinic Keratosis 05/25/2010 DONTAE BURTON MD 702.0 Actinic Keratosis 05/25/2010 ELLEN KEMPN, DAY S 702.0 Actinic Keratosis 05/25/2010 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, DAY S 702.0 Actinic Keratosis 05/25/2010 HIRAM SCHROEDER DDS 702.0 Actinic Keratosis 06/02/2010 MIMS DO ELVIA K 272.4 HYPERLIPIDEMIA 06/02/2010 272.4 HYPERLIPIDEMIA 06/02/2010 MIMS DO, ELVIA K 272.4 HYPERLIPIDEMIA 06/02/2010 272.4 HYPERLIPIDEMIA 06/02/2010 MIMS DO ELVIA K 272.4 HYPERLIPIDEMIA 06/02/2010 MIMS DO ELVIA K 272.4 HYPERLIPIDEMIA 06/02/2010 272.4 HYPERLIPIDEMIA 06/02/2010 272.4 HYPERLIPIDEMIA 06/02/2010 272.4 HYPERLIPIDEMIA 06/02/2010 PUHSPA ORTIZ, ROSENDO 272.4 HYPERLIPIDEMIA 06/02/2010 PUSHPA ORTIZ, ROSENDO 272.4 HYPERLIPIDEMIA 06/02/2010 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, DAY S 272.4 HYPERLIPIDEMIA 06/02/2010 MIMS DO, ELVIA K 272.4 HYPERLIPIDEMIA 06/02/2010 PUSHPA ORTIZ, ROSENDO 272.4 HYPERLIPIDEMIA 06/02/2010 MIMS DO, ELVIA K 272.4 HYPERLIPIDEMIA 06/02/2010 PUSHPA ORTIZ, ROSENDO 272.4 HYPERLIPIDEMIA 06/02/2010 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, DAY S 272.4 HYPERLIPIDEMIA 06/02/2010 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, DAY S 272.4 HYPERLIPIDEMIA 06/02/2010 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, DAY S 272.4 HYPERLIPIDEMIA 06/02/2010 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, DAY S 272.4 HYPERLIPIDEMIA 06/02/2010 MIMS DO, ELVIA K 272.4 HYPERLIPIDEMIA 06/02/2010 MIMS DO, ELVIA K 272.4 HYPERLIPIDEMIA 06/02/2010 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, DAY S 272.4 HYPERLIPIDEMIA 06/02/2010 ARTIE ORITZ, DONTAE 272.4 HYPERLIPIDEMIA 06/02/2010 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, DAY S 272.4 HYPERLIPIDEMIA 06/02/2010 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, DAY S 272.4 HYPERLIPIDEMIA 06/02/2010 HIRAM SCHROEDER DDS 272.4 HYPERLIPIDEMIA 08/09/2010 MIMS DO ELVIA K V05.4 Varicella, Chickenpox 08/09/2010 V05.4 Varicella, Chickenpox 08/09/2010 MIMS DO ELVIA K V05.4 Varicella, Chickenpox 08/09/2010 V05.4 Varicella, Chickenpox 08/09/2010 MIMS DO ELVIA K V05.4 Varicella, Chickenpox 08/09/2010 MIMS DO ELVIA K V05.4 Varicella, Chickenpox 08/09/2010 V05.4 Varicella, Chickenpox 08/09/2010 V05.4 Varicella, Chickenpox 08/09/2010 V05.4 Varicella, Chickenpox 08/09/2010 PUSHPA ORTIZ, ROSENDO V05.4 Varicella, Chickenpox 08/09/2010 PUSHPA ORTIZ, ROSENDO V05.4 Varicella, Chickenpox 08/09/2010 ELLEN ADAMS, DAY S V05.4 Varicella, Chickenpox 08/09/2010 ELVIA MIMS DO K V05.4 Varicella, Chickenpox 08/09/2010 PUSHPA ORTIZ, ROSENDO V05.4 Varicella, Chickenpox 08/09/2010 ELVIA MIMS DO V05.4 Varicella, Chickenpox 08/09/2010 PUSHPA ORTIZ, ROSENDO V05.4 Varicella, Chickenpox 08/09/2010 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, DAY S V05.4 Varicella, Chickenpox 08/09/2010 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, DAY S V05.4 Varicella, Chickenpox 08/09/2010 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, DAY S V05.4 Varicella, Chickenpox 08/09/2010 ELLEN ADAMS, DAY S V05.4 Varicella, Chickenpox 08/09/2010 ELVIA MIMS DO V05.4 Varicella, Chickenpox 08/09/2010 MIMS ELVIA FUNES K V05.4 Varicella, Chickenpox 08/09/2010 ELLEN ADAMS, DAY S V05.4 Varicella, Chickenpox 08/09/2010 ARTIE ORTIZ, DONTAE V05.4 Varicella, Chickenpox 08/09/2010 ELLEN ADAMS, DAY S V05.4 Varicella, Chickenpox 08/09/2010 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, DAY S V05.4 Varicella, Chickenpox 08/09/2010 HIRAM SCHROEDER DDS V05.4 Varicella, Chickenpox 02/02/2011 ELVIA MIMS DO 701.9 Unspecified Hypertrophic And Atrophic Conditions Of Skin 02/02/2011 ELVIA MIMS DO V04.81 Flu Dx (medicare Only) 02/02/2011 701.9 Unspecified Hypertrophic And Atrophic Conditions Of Skin 02/02/2011 V04.81 Flu Dx ( medicare Only) 02/02/2011 ELVIA MIMS DO 701.9 Unspecified Hypertrophic And Atrophic Conditions Of Skin 02/02/2011 ELVIA MIMS DO V04.81 Flu Dx (medicare Only) 02/02/2011 701.9 Unspecified Hypertrophic And Atrophic Conditions Of Skin 02/02/2011 V04.81 Flu Dx ( medicare Only) 02/02/2011 MIMS DO ELVIA K 701.9 Unspecified Hypertrophic And Atrophic Conditions Of Skin 02/02/2011 MIMS DO, ELVIA K V04.81 Flu Dx (medicare Only) 02/02/2011 MIMS DO, ELVIA K 701.9 Unspecified Hypertrophic And Atrophic Conditions Of Skin 02/02/2011 MIMS DO, ELVIA K V04.81 Flu Dx (medicare Only) 02/02/2011 701.9 Unspecified Hypertrophic And Atrophic Conditions Of Skin 02/02/2011 V04.81 Flu Dx ( medicare Only) 02/02/2011 701.9 Unspecified Hypertrophic And Atrophic Conditions Of Skin 02/02/2011 V04.81 Flu Dx ( medicare Only) 02/02/2011 701.9 Unspecified Hypertrophic And Atrophic Conditions Of Skin 02/02/2011 V04.81 Flu Dx ( medicare Only) 02/02/2011 ROSENDO BARROW MD1.9 Unspecified Hypertrophic And Atrophic Conditions Of Skin 02/02/2011 ROSENDO BARROW MD V04.81 Flu Dx (medicare Only) 02/02/2011 ROSENDO BARROW MD1.9 Unspecified Hypertrophic And Atrophic Conditions Of Skin 02/02/2011 ROSENDO BARROW MD V04.81 Flu Dx (medicare Only) 02/02/2011 DAY HUGHES APRN S 701.9 Unspecified Hypertrophic And Atrophic Conditions Of Skin 02/02/2011 MAGNUS HUGHES APRNNDA S V04.81 Flu Dx (medicare Only) 02/02/2011 FELICITA DOLUCIOA K 701.9 Unspecified Hypertrophic And Atrophic Conditions Of Skin 02/02/2011 MIMS DO, ELVIA K V04.81 Flu Dx (medicare Only) 02/02/2011 ROSENDO BARROW MD1.9 Unspecified Hypertrophic And Atrophic Conditions Of Skin 02/02/2011 ROSENDO BARROW MD V04.81 Flu Dx (medicare Only) 02/02/2011 MIMS DO ELVIA K 701.9 Unspecified Hypertrophic And Atrophic Conditions Of Skin 02/02/2011 MIMS DO, ELVIA K V04.81 Flu Dx (medicare Only) 02/02/2011 ROSENDO BARROW MD 701.9 Unspecified Hypertrophic And Atrophic Conditions Of Skin 02/02/2011 PUSHPA ORTIZ, ROSENDO V04.81 Flu Dx (medicare Only) 02/02/2011 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, DAY S 701.9 Unspecified Hypertrophic And Atrophic Conditions Of Skin 02/02/2011 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, DAY S V04.81 Flu Dx (medicare Only) 02/02/2011 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, DAY S 701.9 Unspecified Hypertrophic And Atrophic Conditions Of Skin 02/02/2011 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, DAY S V04.81 Flu Dx (medicare Only) 02/02/2011 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, DAY S 701.9 Unspecified Hypertrophic And Atrophic Conditions Of Skin 02/02/2011 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, DAY S V04.81 Flu Dx (medicare Only) 02/02/2011 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, DAY S 701.9 Unspecified Hypertrophic And Atrophic Conditions Of Skin 02/02/2011 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, DAY S V04.81 Flu Dx (medicare Only) 02/02/2011 MIMS DO, ELVIA K 701.9 Unspecified Hypertrophic And Atrophic Conditions Of Skin 02/02/2011 MIMS DO, ELVIA K V04.81 Flu Dx (medicare Only) 02/02/2011 MIMS DO, ELVIA K 701.9 Unspecified Hypertrophic And Atrophic Conditions Of Skin 02/02/2011 MIMS DO, ELVIA K V04.81 Flu Dx (medicare Only) 02/02/2011 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, DAY S 701.9 Unspecified Hypertrophic And Atrophic Conditions Of Skin 02/02/2011 ELLEN KEMPN, DAY S V04.81 Flu Dx (medicare Only) 02/02/2011 DONTAE BURTON MD 701.9 Unspecified Hypertrophic And Atrophic Conditions Of Skin 02/02/2011 DONTAE BURTON MD V04.81 Flu Dx (medicare Only) 02/02/2011 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, DAY S 701.9 Unspecified Hypertrophic And Atrophic Conditions Of Skin 02/02/2011 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, DAY S V04.81 Flu Dx (medicare Only) 02/02/2011 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, DAY S 701.9 Unspecified Hypertrophic And Atrophic Conditions Of Skin 02/02/2011 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, DAY S V04.81 Flu Dx (medicare Only) 02/02/2011 SCHROEDERDAVID GALINDO, HIRAM 701.9 Unspecified Hypertrophic And Atrophic Conditions Of Skin 02/02/2011 ELDA GALINDO, HIRAM V04.81 Flu Dx (medicare Only) 02/21/2011 MIMS DO ELVIA K V72.31 Weigher And Crusher Exam, Routine 02/21/2011 V72.31 Weigher And Crusher Exam, Routine 02/21/2011 MIMS DO ELVIA K V72.31 Weigher And Crusher Exam, Routine 02/21/2011 V72.31 Weigher And Crusher Exam, Routine 02/21/2011 MIMS DO, ELVIA K V72.31 Weigher And Crusher Exam, Routine 02/21/2011 MIMS DO, ELVIA K V72.31 Weigher And Crusher Exam, Routine 02/21/2011 V72.31 Weigher And Crusher Exam, Routine 02/21/2011 V72.31 Weigher And Crusher Exam, Routine 02/21/2011 V72.31 Weigher And Crusher Exam, Routine 02/21/2011 ROSENDO BARROW MD V72.31 Weigher And Crusher Exam, Routine 02/21/2011 ROSENDO BARROW MD V72.31 Weigher And Crusher Exam, Routine 02/21/2011 ELLEN ADAMS DAY S V72.31 Weigher And Crusher Exam, Routine 02/21/2011 MIMS DO ELVIA K V72.31 Weigher And Crusher Exam, Routine 02/21/2011 ROSENDO BARROW MD V72.31 Weigher And Crusher Exam, Routine 02/21/2011 MIMS DO, ELVIA K V72.31 Weigher And Crusher Exam, Routine 02/21/2011 ROSENDO BARROW MD V72.31 Weigher And Crusher Exam, Routine 02/21/2011 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, DAY S V72.31 Weigher And Crusher Exam, Routine 02/21/2011 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, DAY S V72.31 Weigher And Crusher Exam, Routine 02/21/2011 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, DAY S V72.31 Weigher And Crusher Exam, Routine 02/21/2011 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, DAY S V72.31 Weigher And Crusher Exam, Routine 02/21/2011 MIMS DO, ELVIA K V72.31 Weigher And Crusher Exam, Routine 02/21/2011 MIMS DO, ELVIA K V72.31 Weigher And Crusher Exam, Routine 02/21/2011 ELLEN ADAMS, DAY S V72.31 Weigher And Crusher Exam, Routine 02/21/2011 ARTIE ORTIZ, DONTAE V72.31 Weigher And Crusher Exam, Routine 02/21/2011 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, DAY S V72.31 Weigher And Crusher Exam, Routine 02/21/2011 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, DAY S V72.31 Weigher And Crusher Exam, Routine 02/21/2011 ELDA GALINDOAMIRAHW V72.31 Weigher And Crusher Exam, Routine 02/23/2011 FELICITA FUNES ELVIA K 436 Acute But Ill-defined Cerebrovascular Disease 02/23/2011 436 Acute But Ill- defined Cerebrovascular Disease 02/23/2011 FELICITA FUNES ELVIA K 436 Acute But Ill-defined Cerebrovascular Disease 02/23/2011 436 Acute But Ill- defined Cerebrovascular Disease 02/23/2011 FELICITA FUNES ELVIA K 436 Acute But Ill-defined Cerebrovascular Disease 02/23/2011 FELICITA FUNES ELVIA K 436 Acute But Ill-defined Cerebrovascular Disease 02/23/2011 436 Acute But Ill- defined Cerebrovascular Disease 02/23/2011 436 Acute But Ill- defined Cerebrovascular Disease 02/23/2011 436 Acute But Ill- defined Cerebrovascular Disease 02/23/2011 ROSENDO BARROW MD 436 Acute But Ill-defined Cerebrovascular Disease 02/23/2011 ROSENDO BARROW MD 436 Acute But Ill-defined Cerebrovascular Disease 02/23/2011 ELLEN ADAMS, DAY S 436 Acute But Ill-defined Cerebrovascular Disease 02/23/2011 LUCIO MIMS DOA K 436 Acute But Ill-defined Cerebrovascular Disease 02/23/2011 ROSENDO BARROW MD 436 Acute But Ill-defined Cerebrovascular Disease 02/23/2011 LUCIO MIMS DOA K 436 Acute But Ill-defined Cerebrovascular Disease 02/23/2011 ROSENDO BARROW MD 436 Acute But Ill-defined Cerebrovascular Disease 02/23/2011 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, DAY S 436 Acute But Ill-defined Cerebrovascular Disease 02/23/2011 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, DAY S 436 Acute But Ill-defined Cerebrovascular Disease 02/23/2011 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, DAY S 436 Acute But Ill-defined Cerebrovascular Disease 02/23/2011 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, DAY S 436 Acute But Ill-defined Cerebrovascular Disease 02/23/2011 FELICITA FUNES ELVIA K 436 Acute But Ill-defined Cerebrovascular Disease 02/23/2011 FELICITA FUNES ELVIA K 436 Acute But Ill-defined Cerebrovascular Disease 02/23/2011 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, DAY S 436 Acute But Ill-defined Cerebrovascular Disease 02/23/2011 ARTIE ORTIZ, ALI 436 Acute But Ill-defined Cerebrovascular Disease 02/23/2011 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, DAY S 436 Acute But Ill-defined Cerebrovascular Disease 02/23/2011 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, DAY S 436 Acute But Ill-defined Cerebrovascular Disease 02/23/2011 ELDA GALINDO, HIRMA 436 Acute But Ill-defined Cerebrovascular Disease 03/07/2011 [...] BARROW MD 466.0 Acute Bronchitis 03/07/2011 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, DAY S 466.0 Acute Bronchitis 03/07/2011 MIMS DO, ELVIA K 466.0 Acute Bronchitis 03/07/2011 ROSENDO BARROW MD 466.0 Acute Bronchitis 03/07/2011 MIMS DO, ELVIA K 466.0 Acute Bronchitis 03/07/2011 ROSENDO BARROW MD 466.0 Acute Bronchitis 03/07/2011 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, DAY S 466.0 Acute Bronchitis 03/07/2011 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, DAY S 466.0 Acute Bronchitis 03/07/2011 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, DAY S 466.0 Acute Bronchitis 03/07/2011 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, DAY S 466.0 Acute Bronchitis 03/07/2011 MIMS DO, ELVIA K 466.0 Acute Bronchitis 03/07/2011 MIMS DO, ELVIA K 466.0 Acute Bronchitis 03/07/2011 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, DAY S 466.0 Acute Bronchitis 03/07/2011 DONTAE BURTON MD 466.0 Acute Bronchitis 03/07/2011 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, DAY S 466.0 Acute Bronchitis 03/07/2011 DAY HUGHES APRN S 466.0 Acute Bronchitis 03/07/2011 HIRAM SCHROEDER DDS 466.0 Acute Bronchitis 05/05/2011 MIMS DO ELVIA K 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 05/05/2011 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 05/05/2011 MIMS DO ELVIA K 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 05/05/2011 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 05/05/2011 MIMS DO ELVIA K 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 05/05/2011 MIMS DO ELVIA K 235.5 NEOPLASM [...] OF OTHER AND UNSPECIFIED DIGESTIVE ORGANS 05/05/2011 ALYSSA HUGHES APRNA S 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 05/05/2011 LUCIO MIMS DOA K 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 05/05/2011 ROSENDO BARROW MD 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 05/05/2011 LUCIO MIMS DOA K 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 05/05/2011 ROSENDO BARROW MD 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 05/05/2011 ALYSSA HUGHES APRNA S 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 05/05/2011 MAGNUS HUGHES APRNNDA S 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 05/05/2011 ALYSSA HUGHES APRNA S 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 05/05/2011 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, DAY S 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 05/05/2011 MIMS DO, ELVIA K 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 05/05/2011 MIMS DO, ELVIA K 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 05/05/2011 ELLEN KEMPN, DAY S 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 05/05/2011 DONTAE BURTON MD 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 05/05/2011 ELLEN KEMPN, DAY S 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 05/05/2011 ELLEN ADAMS, DAY S 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 05/05/2011 HIRAM SCHROEDER DDS 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 07/05/2011 MIMS DO ELVIA K 733.00 OSTEOPOROSIS UNSPECIFIED 07/05/2011 733.00 [...] ROSENDO BARROW MD 733.00 OSTEOPOROSIS UNSPECIFIED 07/05/2011 DAY HUGHES APRN S 733.00 OSTEOPOROSIS UNSPECIFIED 07/05/2011 FELICITA FUNES ELVIA K 733.00 OSTEOPOROSIS UNSPECIFIED 07/05/2011 ROSENDO BARROW MD 733.00 OSTEOPOROSIS UNSPECIFIED 07/05/2011 MIMS DO ELVIA K 733.00 OSTEOPOROSIS UNSPECIFIED 07/05/2011 ROSENDO BARROW MD 733.00 OSTEOPOROSIS UNSPECIFIED 07/05/2011 DAY HUGHES APRN S 733.00 OSTEOPOROSIS UNSPECIFIED 07/05/2011 ELLEN ADAMS, DAY S 733.00 OSTEOPOROSIS UNSPECIFIED 07/05/2011 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, DAY S 733.00 OSTEOPOROSIS UNSPECIFIED 07/05/2011 ELLEN ADAMS, DAY S 733.00 OSTEOPOROSIS UNSPECIFIED 07/05/2011 FELICITA DO ELVIA K 733.00 OSTEOPOROSIS UNSPECIFIED 07/05/2011 MIMS DO, ELVIA K 733.00 OSTEOPOROSIS UNSPECIFIED 07/05/2011 ELLEN ADAMS, DAY S 733.00 OSTEOPOROSIS UNSPECIFIED 07/05/2011 DONTAE BURTON MD 733.00 OSTEOPOROSIS UNSPECIFIED 07/05/2011 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, DAY S 733.00 OSTEOPOROSIS UNSPECIFIED 07/05/2011 ELLEN ADAMS, DAY S 733.00 OSTEOPOROSIS UNSPECIFIED 07/05/2011 HIRAM SCHROEDER DDS 733.00 OSTEOPOROSIS UNSPECIFIED 01/19/2012 MIMS DO ELVIA K 700 CORNS AND CALLOSITIES 01/19/2012 MIMS DO ELVIA K 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 01/19/2012 MIMS DO ELVIA K 719.41 PAIN IN JOINT INVOLVING SHOULDER REGION 01/19/2012 MIMS DO, ELVIA K V04.81 FLU DX (MEDICARE ONLY) 01/19/2012 700 CORNS AND CALLOSITIES 01/19/2012 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 01/19/2012 719.41 PAIN IN JOINT INVOLVING SHOULDER REGION 01/19/2012 V04.81 FLU DX ( MEDICARE ONLY) 01/19/2012 MIMS DO ELVIA K 700 CORNS AND CALLOSITIES 01/19/2012 MIMS DO ELVIA K 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 01/19/2012 MIMS DO, ELVIA K 719.41 Pain In Joint Involving Shoulder Region 01/19/2012 MIMS DO, ELVIA K V04.81 FLU DX (MEDICARE ONLY) 01/19/2012 700 CORNS AND CALLOSITIES 01/19/2012 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 01/19/2012 719.41 Pain In Joint Involving Shoulder Region 01/19/2012 V04.81 FLU DX ( MEDICARE ONLY) 01/19/2012 MIMS DO ELVIA K 700 CORNS AND CALLOSITIES 01/19/2012 MIMS DO ELVIA K 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 01/19/2012 LUCIO MIMS DOA K 719.41 Pain In Joint Involving Shoulder Region 01/19/2012 ELVIA MIMS DO K V04.81 FLU DX (MEDICARE ONLY) 01/19/2012 ELVIA MIMS DO K 700 CORNS AND CALLOSITIES 01/19/2012 MIMS ELVIA FUNES K 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 01/19/2012 MIMS DOLUCIOA K 719.41 Pain In Joint Involving Shoulder Region 01/19/2012 ELVIA MIMS DO V04.81 FLU DX (MEDICARE ONLY) 01/19/2012 700 CORNS AND CALLOSITIES 01/19/2012 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 01/19/2012 719.41 Pain In Joint Involving Shoulder Region 01/19/2012 V04.81 FLU DX ( MEDICARE ONLY) 01/19/2012 700 CORNS AND CALLOSITIES 01/19/2012 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 01/19/2012 719.41 Pain In Joint Involving Shoulder Region 01/19/2012 V04.81 FLU DX ( MEDICARE ONLY) 01/19/2012 700 CORNS AND CALLOSITIES 01/19/2012 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 01/19/2012 719.41 Pain In Joint Involving Shoulder Region 01/19/2012 V04.81 FLU DX ( MEDICARE ONLY) 01/19/2012 ROSENDO BARROW MD 700 CORNS [...] V04.81 FLU DX (MEDICARE ONLY) 01/19/2012 ELLEN KEMPNMAGNUSDAY S 700 CORNS AND CALLOSITIES 01/19/2012 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, DAY S 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 01/19/2012 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, DAY S 719.41 Pain In Joint Involving Shoulder Region 01/19/2012 ELLEN KEMPN, DAY S V04.81 FLU DX (MEDICARE ONLY) [...] ELVIA K 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 01/19/2012 MIMS DO ELVIA K 719.41 Pain In Joint Involving Shoulder Region 01/19/2012 MIMS DO, ELVIA K V04.81 FLU DX (MEDICARE ONLY) 01/19/2012 ROSENDO BARROW MD 700 CORNS AND CALLOSITIES 01/19/2012 ROSENDO BARROW MD 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 01/19/2012 ROSENDO BARROW MD 719.41 Pain In Joint Involving Shoulder Region 01/19/2012 ROSENDO BARROW MD V04.81 FLU DX (MEDICARE ONLY) 01/19/2012 ELLEN ADAMS, DAY S 700 CORNS AND CALLOSITIES 01/19/2012 ELLEN KEMPN, DAY S 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 01/19/2012 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, DAY S 719.41 Pain In Joint Involving Shoulder Region 01/19/2012 ELLEN KEMPN, DAY S V04.81 FLU DX (MEDICARE ONLY) 01/19/2012 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, DAY S 700 CORNS AND CALLOSITIES 01/19/2012 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, DAY S 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 01/19/2012 ELLEN KEMPN, DAY S 719.41 Pain In Joint Involving Shoulder Region 01/19/2012 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, DAY S V04.81 FLU DX (MEDICARE ONLY) 01/19/2012 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, DAY S 700 CORNS AND CALLOSITIES 01/19/2012 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, DAY S 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 01/19/2012 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, DAY S 719.41 Pain In Joint Involving Shoulder Region 01/19/2012 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, DAY S V04.81 FLU DX (MEDICARE ONLY) 01/19/2012 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, ADY S 700 CORNS AND CALLOSITIES 01/19/2012 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, DAY S 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 01/19/2012 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, DAY S 719.41 Pain In Joint Involving Shoulder Region 01/19/2012 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, DAY S V04.81 FLU DX [...] V04.81 FLU DX (MEDICARE ONLY) 01/19/2012 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, DAY S 700 CORNS AND CALLOSITIES 01/19/2012 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, DAY S 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 01/19/2012 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 DAY S 719.41 Pain In Joint Involving Shoulder Region 01/19/2012 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, DAY S V04.81 FLU DX (MEDICARE ONLY) 01/19/2012 ODNTAE BURTON MD 700 CORNS AND CALLOSITIES 01/19/2012 DONTAE BURTON MD 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 01/19/2012 DONTAE BURTON MD 719.41 Pain In Joint Involving Shoulder Region 01/19/2012 ARTIE ORTIZ, DONTAE V04.81 FLU DX (MEDICARE ONLY) 01/19/2012 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, DAY S 700 CORNS AND CALLOSITIES 01/19/2012 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, DAY S 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 01/19/2012 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, DAY S 719.41 Pain In Joint Involving Shoulder Region 01/19/2012 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, DAY S V04.81 FLU DX (MEDICARE ONLY) 01/19/2012 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, DAY S 700 CORNS AND CALLOSITIES 01/19/2012 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, DAY S 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 01/19/2012 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, DAY S 719.41 Pain In Joint Involving Shoulder Region 01/19/2012 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, DAY S V04.81 FLU DX [...] INVOLVING SHOULDER REGION 04/19/2012 DAY HUGHES APRN 719.41 PAIN IN JOINT INVOLVING SHOULDER REGION [...] PAIN IN JOINT INVOLVING SHOULDER REGION 04/19/2012 DONTAE BURTON MD 719.41 PAIN IN JOINT INVOLVING SHOULDER [...] DAY HUGHES APRN 426.4 RBBB 09/05/2012 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, DAY S 786.09 DYSPNEA 09/05/2012 MIMS DO, ELVIA K 426.4 RBBB 09/05/2012 MIMS DO, ELVIA K 786.09 DYSPNEA 09/05/2012 PUSHPA ORTIZ, ROSENDO 426.4 RBBB 09/05/2012 PUSHPA ORTIZ, ROSENDO 786.09 DYSPNEA 09/05/2012 MIMS DO, ELVIA K 426.4 RBBB 09/05/2012 MIMS DO, ELVIA K 786.09 DYSPNEA 09/05/2012 PUSHPA ORTIZ, ROSENDO 426.4 RBBB 09/05/2012 PUSHPA ORTIZ, ROSENDO 786.09 DYSPNEA 09/05/2012 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, DAY S 426.4 RBBB 09/05/2012 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, DAY S 786.09 DYSPNEA 09/05/2012 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, DAY S 426.4 RBBB 09/05/2012 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, DAY S 786.09 DYSPNEA 09/05/2012 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, DAY S 426.4 RBBB 09/05/2012 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, DAY S 786.09 DYSPNEA 09/05/2012 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, DAY S 426.4 RBBB 09/05/2012 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, DAY S 786.09 DYSPNEA 09/05/2012 MIMS DO, ELVIA K 426.4 RBBB 09/05/2012 MIMS DO, ELVIA K 786.09 DYSPNEA 09/05/2012 MIMS DO, ELVIA K 426.4 RBBB 09/05/2012 MIMS DO, ELVIA K 786.09 DYSPNEA 09/05/2012 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, DAY S 426.4 RBBB 09/05/2012 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, DAY S 786.09 DYSPNEA 09/05/2012 ARTIE ORTIZ, DONTAE 426.4 RBBB 09/05/2012 ARTIE ORTIZ, DONTAE 786.09 DYSPNEA 09/05/2012 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,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 PERCY Ot Z90.89 ACQUIRED ABSENCE OF OTHER ORGANS 01/10/2017 JOANNE PERCY K Ot E78.00 PURE HYPERCHOLESTEROLEMIA, UNSPECIFIED 01/10/2017 JOANNE PERCY Pooja Ot F17.210 NICOTINE DEPENDENCE, CIGARETTES, UNCOMPL 01/10/2017 JOANNE PERCY Pooja Ot 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 01/10/2017 JOANNE PERCY Pooja Ot J44.9 CHRONIC OBSTRUCTIVE PULMONARY DISEASE, U 01/10/2017 JOANNE FUNES PERCY Pooja Ot M79.672 PAIN IN LEFT FOOT 01/10/2017 JOANNE PERCY Pooja Ot S93.402A SPRAIN OF UNSPECIFIED LIGAMENT OF LEFT A 01/10/2017 JOANNE PERCY Pooja Ot S93.602A UNSPECIFIED SPRAIN OF LEFT FOOT, INITIAL 01/10/2017 JOANNE PERCY Patton Ot W01.0XXA FALL SAME LEV FROM SLIP/TRIP W/O STRIKE 01/10/2017 JOANNE FUNES PERCY K Ot Z82.49 FAMILY HX OF ISCHEM HEART DIS AND OTH DI 01/10/2017 JOANNE PERCY Pooja Ot Z86.73 PRSNL HX OF TIA (TIA), AND CEREB INFRC W 01/10/2017 JOANNE ZEEA Pooja Ot Z90.710 ACQUIRED ABSENCE OF BOTH CERVIX AND UTER 01/10/2017 JOANNE ZEEA K Ot Z90.89 ACQUIRED ABSENCE OF OTHER ORGANS 01/23/2017 HANSEL HARRISON MD Ot R10.13 EPIGASTRIC PAIN 01/23/2017 HANSEL HARRISON MD Ot Z01.818 ENCOUNTER FOR OTHER PREPROCEDURAL EXAMIN 2017 DAY HUGHES RAYMOND Ot K87 DISORD OF GB, BILIARY TRAC AND PANCREAS 01/30/2017 HANSEL HARRISON MD Ot E78.5 HYPERLIPIDEMIA, UNSPECIFIED 01/30/2017 HANSEL HARRISON MD Ot F17.210 NICOTINE DEPENDENCE, CIGARETTES, UNCOMPL 01/30/2017 HANSEL HARRISON MD Ot I10 ESSENTIAL (PRIMARY) HYPERTENSION 01/30/2017 HANSEL HARRISON MD Ot K20.9 ESOPHAGITIS, UNSPECIFIED 01/30/2017 HANSEL HARRISON MD Ot K25.9 GASTRIC ULCER, UNSP ACUTE OR CHRONIC, 01/30/2017 HANSEL HARRISON MD Ot K26.9 DUODENAL ULCER, UNSP ACUTE OR CHRONIC 01/30/2017 HANSEL HARRISON MD Ot K44.9 DIAPHRAGMATIC HERNIA WITHOUT OBSTRUCTION 01/30/2017 HANSEL HARRISON MD Ot Z79.899 OTHER BATTERY RECHARGER (CURRENT) DRUG THERAPY 01/30/2017 HANSEL HARRISON MD Ot Z86.73 PRSNL HX OF TIA (TIA), AND CEREB INFRC W 04/03/2017 ARTIE ORTIZ FACC, DONTAE FACP CCDS Ot E78.4 OTHER HYPERLIPIDEMIA 04/03/2017 ARTIE ORTIZ FACC, DONTAE FACP CCDS Ot I65.23 OCCLUSION AND STENOSIS OF BILATERAL [place] 04/03/2017 ARTIE ORTIZ FACC, DONTAE FACP CCDS Ot Z72.0 TOBACCO USE 04/03/2017 ARTIE ORTIZ FACC, DONTAE FACP CCDS Ot Z86.718 PERSONAL HISTORY OF OTHER VENOUS THROMBO 04/03/2017 ARTIE ORTIZ FACC, DONTAE MELENDEZP CCDS Ot Z86.73 PRSNL HX OF TIA (TIA), AND CEREB INFRC W 04/03/2017 ARTIE ORTIZ FACC, DONTAE FACP CCDS Ot Z87.19 PERSONAL HISTORY OF OTHER DISEASES OF TH 04/10/2017 ARTIE ORTIZ FACC, DONTAE FACP CCDS Ot I73.9 PERIPHERAL VASCULAR DISEASE, UNSPECIFIED 04/11/2017 ARTIE ORTIZ FACC, ALI FACP CCDS Ot I73.9 PERIPHERAL VASCULAR DISEASE, UNSPECIFIED 04/12/2017 ARTIE ORTIZ FACC, ALI FACP CCDS Ot E78.4 OTHER HYPERLIPIDEMIA 04/12/2017 ARTIE ORTIZ FACC, ALI FACP CCDS Ot I65.23 OCCLUSION AND STENOSIS OF BILATERAL [place] 04/12/2017 ARTIE ORTIZ FACC, ALI FACP CCDS Ot I73.9 PERIPHERAL VASCULAR DISEASE, UNSPECIFIED 04/12/2017 ARTIE ORTIZ FACC, ALI FACP CCDS Ot Z72.0 TOBACCO USE 04/12/2017 ARTIE ORTIZ FACC, ALI FACP CCDS Ot Z86.718 PERSONAL HISTORY OF OTHER VENOUS THROMBO 04/12/2017 ARTIE ORTIZ FACC, ALI FACP CCDS Ot Z86.73 PRSNL HX OF TIA (TIA), AND CEREB INFRC W 04/12/2017 ARTIE ORTIZ FACC, ALI FACP CCDS Ot Z87.19 PERSONAL HISTORY OF OTHER DISEASES OF TH 04/25/2017 DONTAE BURTON MD, FACC FACP CCDS Ot E78.4 OTHER HYPERLIPIDEMIA 04/25/2017 ARTIE ORTIZ FACC, ALI FACP CCDS Ot I65.23 OCCLUSION AND STENOSIS OF BILATERAL [place] 04/25/2017 ARTIE ORTIZ FACC, ALI FACP CCDS Ot Z72.0 TOBACCO USE 04/25/2017 ARTIE ORTZI FACC, ALI FACP CCDS Ot Z86.718 PERSONAL HISTORY OF OTHER VENOUS THROMBO 04/25/2017 ARTIE ORTIZ FACC, ALI FACP CCDS Ot Z86.73 PRSNL HX OF TIA (TIA), AND CEREB INFRC W 04/25/2017 ARTIE ORTIZ FACC, ALI FACP CCDS Ot Z87.19 PERSONAL HISTORY OF OTHER DISEASES OF 05/02/2017 ARTIE ORTIZ FACC, ALI FACP CCDS Ot E78.4 OTHER HYPERLIPIDEMIA 05/02/2017 ARTIE ORTIZ FACC, ALI FACP CCDS Ot I65.23 OCCLUSION AND STENOSIS OF BILATERAL [place]OO[place] 05/02/2017 ARTIE ORTIZ FACC, ALI FACP CCDS Ot I73.9 PERIPHERAL VASCULAR DISEASE, UNSPECIFIED 05/02/2017 ARTIE ORTIZ FACC, ALI FACP CCDS Ot Z72.0 TOBACCO USE 05/02/2017 ARTIE ORTIZ FACC, ALI FACP CCDS Ot Z86.718 PERSONAL HISTORY OF OTHER VENOUS THROMBO 05/02/2017 DONTAE BURTON MD, FACC, FACP CCDS Ot Z86.73 PRSNL HX OF TIA (TIA), AND CEREB INFRC W 05/02/2017 DONTAE BURTON MD, FACC, FACP CCDS Ot Z87.19 PERSONAL HISTORY OF OTHER DISEASES OF TH 05/15/2017 DONTAE BURTON MD, FACC, FACP CCDS Ot E78.4 OTHER HYPERLIPIDEMIA 06/19/2017 DONTAE BURTON MD, FACC, FACP CCDS Ot E78.4 OTHER HYPERLIPIDEMIA 06/21/2017 YASMINE SHERWIN Aliyah 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 Ot D50.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 06/26/2017 YASMINE SHERWIN Aliyah 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 Ot D50.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 07/14/2017 ANDI UNDERWOODHER Ly 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 Ot D50.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 Procedures Code [place] [address] ROUTINE VENIPUNCTURE 02/22/2012 39560 CBC 02/22/2012 44761 LIPID PANEL 02/22/2012 92222 CMP 02/22/2012 [id number] GFR CALC (RESULT ONLY) 02/22/2012 58283 CRP HS (CARDIO) 02/23/2012 55894 T4 02/23/2012 60559 TSH 02/23/2012 Orthopedi Brown Cantu 03/19/2012 Orthopedi Humberto Ford 04/14/2012 55666 ROUTINE VENIPUNCTURE 07/27/2012 95833 CMP 07/27/2012 58639 LIPID PANEL 07/27/2012 [id number] GFR CALC (RESULT ONLY) 07/27/2012 66095 NUCLEAR STRESS TESTING 09/10/2012 61979 OXIMETRY 09/10/2012 06075 ROUTINE VENIPUNCTURE 11/14/2012 23739 LIVER PANEL (LFT) 11/14/2012 51980 ROUTINE VENIPUNCTURE 12/25/2012 78073 LIVER PANEL (LFT) 12/25/2012 26198 ROUTINE VENIPUNCTURE 01/29/2013 95437 LIVER PANEL (LFT) 01/29/[address] ABDOMEN W/ CONTRAST 02/01/2013 52536 LESION DESTRUCTION 1-14 ( BENIGN) 02/11/2013 14413 PULMONARY FUNCTION TEST (IN- HOUSE) 02/11/2013 30801 US RENAL ULTRASOUND, COMP 02/13/2013 Cardiolog Dontae Burton 02/27/2013 41096 OXIMETRY 02/27/2013 27091 PULMONARY FUNCTION TEST (IN- HOUSE) 03/01/2013 34686 RESPIRATORY FLOW VOLUME LOOP 03/01/2013 G0437 TOBACCO-USE LITURGICAL MUSIC DIRECTOR>10MIN 03/01/2013 75183 ROUTINE VENIPUNCTURE 04/26/2013 4281508 GFR CALC (RESULT ONLY) 04/26/2013 13510 CMP 04/26/2013 08916 LIPID PANEL 04/26/2013 77507 MAMMOGRAM, SCREENING 08/26/2013 73946 ROUTINE VENIPUNCTURE 08/28/2013 36255 US CAROTID DOPPLER 08/28/2013 90087 OXIMETRY 08/28/2013 7241509 GFR CALC (RESULT ONLY) 08/28/2013 92441 CMP 08/28/2013 34508 LIPID PANEL 08/28/2013 91757 WART DESTRUCT 1-14 (CRYO) 03/12/2014 98581 ROUTINE VENIPUNCTURE 03/28/2014 [id number] GFR CALC (RESULT ONLY) 03/28/2014 65969 CMP 03/28/2014 43436 LIPID PANEL 03/28/2014 69533 BONE DENSITY, DEXA 06/10/2014 94706 US CAROTID DOPPLER 06/10/2014 37870 OXIMETRY 06/10/2014 Results Test Result Range Hepatitis Panel (4) - 03/17/16 09:07 HBsAg Screen Negative Negative Hep A Ab, IgM Negative Negative Hep B Core Ab, IgM Negative Negative Hep C Virus Ab <0.1 s/co ratio 0.0-0.9 Complete blood count (CBC) with automated white blood cell (WBC) differential - 06/19/16 14:25 Blood leukocytes automated count (number/volume) 13.4 10*3/uL 4.3-11.0 Blood erythrocytes automated count (number/volume) 4.92 10*6/uL 4.35-5.85 Venous blood hemoglobin measurement (mass/volume) 16.1 [...] Automated blood platelet mean volume measurement 10.6 [foz_us] 7.4-10.4 Automated blood neutrophils/100 leukocytes 72 % [...] Serum or plasma sodium measurement (moles/volume) 138 mmol/L 135-145 Serum or plasma potassium measurement (moles/volume) 4.3 mmol/L 3.6-5.0 Serum or plasma chloride measurement (moles/volume) 104 mmol/L 98-107 Carbon dioxide 23 mmol/L 21-32 Serum or plasma anion gap determination (moles/volume) 11 mmol/L 5-14 Serum or plasma urea nitrogen measurement (mass/volume) 31 mg/dL 7-18 Serum or plasma creatinine measurement (mass/volume) 1.62 mg/dL 0.60-1.30 Serum or plasma urea nitrogen/creatinine mass [...] or plasma amylase measurement (enzymatic activity/volume) 45 U /L 25-125 Lipase - 06/19/16 14:25 Lipase 33 U/L 8-78 Complete urinalysis with reflex to culture - 06/19/16 15:14 Urine color determination YELLOW NRG Urine clarity determination CLEAR NRG Urine pH measurement by test strip 6 5-9 Specific gravity of urine by test strip 1.015 1.016- 1.022 Urine protein assay by test strip, semi-quantitative [...] 06/19/16 15:14 Bacterial urine culture FOOTNOTE NRG Whole blood hemoglobin and hematocrit panel - 07/26/16 12:26 Venous blood hemoglobin measurement (mass/volume) 14.6 g/dL 11.5-16.0 Blood hematocrit (volume fraction) 44 % 35-52 Complete blood count (CBC) with automated white blood cell (WBC) differential - 07/26/16 22:55 Blood leukocytes automated count (number/volume) 14.7 10*3/uL 4.3-11.0 Blood erythrocytes automated count (number/volume) 4.00 10*6/uL 4.35-5.85 Venous blood hemoglobin measurement (mass/volume) 13.3 g/dL 11.5-16.0 Blood hematocrit (volume fraction) 40 % 35-52 Automated erythrocyte mean corpuscular volume 99 [foz_us] 80-99 Automated erythrocyte mean corpuscular hemoglobin (mass per erythrocyte) 33 pg 25-34 Automated erythrocyte mean corpuscular hemoglobin concentration measurement ( mass/volume) 34 g/dL 32-36 Automated erythrocyte distribution width ratio 14.2 % 10.0-14.5 Automated blood platelet count (count/volume) 261 10*3/uL 130-400 Automated blood platelet mean volume measurement 10.2 [foz_us] 7.4-10.4 Automated blood neutrophils/100 leukocytes 71 % 42-75 Automated blood lymphocytes/100 leukocytes 21 % 12-44 Blood monocytes/100 leukocytes 7 % 0-12 Automated blood eosinophils/100 leukocytes 1 % 0-10 Automated blood basophils/100 leukocytes 1 % 0-10 Blood neutrophils automated count (number/volume) 10.5 10*3 1.8-7.8 Blood lymphocytes automated count (number/volume) 3.0 10*3 1.0-4.0 Blood monocytes automated count (number/volume) 1.0 10*3 0.0-1.0 Automated eosinophil count 0.2 10*3/uL 0.0-0.3 Automated blood basophil count (count/volume) 0.1 10*3/uL 0.0-0.1 PT panel in platelet poor plasma by coagulation assay - 07/26/16 22:55 Prothrombin time (PT) in platelet poor plasma by coagulation assay 14.1 s 12.2-14.7 INR in platelet poor plasma or blood by coagulation assay 1.1 0.8-1.4 Activated partial thromboplastin time (aPTT) in platelet poor plasma bycoagulation assay - 07/26/16 22:55 Activated partial thromboplastin time (aPTT) in platelet poor plasma bycoagulation assay 24 s 24-35 Blood manual differential performed detection - 07/26/16 22:55 Blood monocytes/100 leukocytes 5 % NRG Manual blood segmented neutrophils/100 leukocytes 59 % NRG Blood band neutrophils/100 leukocytes 4 % NRG Manual blood lymphocytes/100 leukocytes 31 % NRG Manual eosinophils/100 leukocytes in nose 1 % NRG Manual blood basophils/100 leukocytes 0 % NRG Blood erythrocyte morphology finding identification NORMAL [facility] Comprehensive metabolic panel - 07/26/16 22:55 Serum or plasma sodium measurement (moles/volume) 139 mmol/L 135-145 Serum or plasma potassium measurement (moles/volume) 4.1 mmol/L 3.6-5.0 Serum or plasma chloride measurement (moles/volume) 105 mmol/L 98-107 Carbon dioxide 22 mmol/L 21-32 Serum or plasma anion gap determination (moles/volume) 12 mmol/L 5-14 Serum or plasma urea nitrogen measurement (mass/volume) 16 mg/dL 7-18 Serum or plasma creatinine measurement (mass/volume) 0.82 mg/dL 0.60-1.30 Serum or plasma urea nitrogen/creatinine mass ratio 20 NRG Serum or plasma creatinine measurement with calculation of estimated glomerular filtration rate > NR Serum or plasma glucose measurement (mass/volume) 147 mg/dL 70-105 Serum or plasma calcium measurement (mass/volume) 8.7 mg/dL 8.5-10.1 Serum or plasma total bilirubin measurement (mass/volume) 0.3 mg/dL 0.1-1.0 Serum or plasma alkaline phosphatase measurement (enzymatic activity/volume) 67 U/L 40-136 Serum or plasma aspartate aminotransferase measurement (enzymatic activity/ volume) 14 U/L 5-34 Serum or plasma alanine aminotransferase measurement (enzymatic activity/volume ) 6 U/L 0-55 Serum or plasma protein measurement (mass/volume) 6.2 g/dL 6.4-8.2 Serum or plasma albumin measurement (mass/volume) 3.8 g/dL 3.2-4.5 Blood type T Indirect antibody screen panel - 07/26/16 22:55 ABO+Rh group AP [facility] Transfusion band number [id number] [facility] Blood group antibody screen NEGATIVE [facility] Whole blood hemoglobin and hematocrit panel - 07/27/16 05:00 Venous blood hemoglobin measurement (mass/volume) 10.9 g/dL 11.5-16.0 Blood hematocrit (volume fraction) 33 % 35-52 Complete blood count (CBC) with automated white blood cell (WBC) differential - 07/28/16 05:20 Blood leukocytes automated count (number/volume) 9.2 10*3/uL 4.3-11.0 Blood erythrocytes automated count (number/volume) 3.09 10*6/uL 4.35-5.85 Venous blood hemoglobin measurement (mass/volume) 10.1 g/dL 11.5-16.0 Blood hematocrit (volume fraction) 31 % 35-52 Automated erythrocyte mean corpuscular volume 101 [foz_us] 80-99 Automated erythrocyte mean corpuscular hemoglobin (mass per erythrocyte) 33 pg 25-34 Automated erythrocyte mean corpuscular hemoglobin concentration measurement ( mass/volume) 33 g/dL 32-36 Automated erythrocyte distribution width ratio 14.3 % 10.0-14.5 Automated blood platelet count (count/volume) 201 10*3/uL 130-400 Automated blood platelet mean volume measurement 10.7 [foz_us] 7.4-10.4 Automated blood neutrophils/100 leukocytes 53 % 42-75 Automated blood lymphocytes/100 leukocytes 34 % 12-44 Blood monocytes/100 leukocytes 9 % 0-12 Automated blood eosinophils/100 leukocytes 4 % 0-10 Automated blood basophils/100 leukocytes 1 % 0-10 Blood neutrophils automated count (number/volume) 4.9 10*3 1.8-7.8 Blood lymphocytes automated count (number/volume) 3.1 10*3 1.0-4.0 Blood monocytes automated count (number/volume) 0.8 10*3 0.0-1.0 Automated eosinophil count 0.3 10*3/uL 0.0-0.3 Automated blood basophil count (count/volume) 0.1 10*3/uL 0.0-0.1 Comprehensive metabolic panel - 07/28/16 05:20 Serum or plasma sodium measurement (moles/volume) 143 mmol/L 135-145 Serum or plasma potassium measurement (moles/volume) 3.9 mmol/L 3.6-5.0 Serum or plasma chloride measurement (moles/volume) 112 mmol/L 98-107 Carbon dioxide 23 mmol/L 21-32 Serum or plasma anion gap determination (moles/volume) 8 mmol/L 5-14 Serum or plasma urea nitrogen measurement (mass/volume) 8 mg/dL 7-18 Serum or plasma creatinine measurement (mass/volume) 0.69 mg/dL 0.60-1.30 Serum or plasma urea nitrogen/creatinine mass ratio 12 NRG Serum or plasma creatinine measurement with calculation of estimated glomerular filtration rate > NRG Serum or plasma glucose measurement (mass/volume) 89 mg/dL 70-105 Serum or plasma calcium measurement (mass/volume) 8.3 mg/dL 8.5-10.1 Serum or plasma total bilirubin measurement (mass/volume) 0.2 mg/dL 0.1-1.0 Serum or plasma alkaline phosphatase measurement (enzymatic activity/volume) 52 U/L 40-136 Serum or plasma aspartate aminotransferase measurement (enzymatic activity/ volume) 12 U/L 5-34 Serum or plasma alanine aminotransferase measurement (enzymatic activity/volume ) < U/L 0-55 Serum or plasma protein measurement (mass/volume) 5.1 g/dL 6.4-8.2 Serum or plasma albumin measurement (mass/volume) 3.2 g/dL 3.2-4.5 CBC With Differential/Platelet - 08/02/16 11:14 WBC 12.6 x10E3/uL 3.4-10.8 RBC 3.33 x10E6/uL 3.77-5.28 Hemoglobin 10.7 g/dL 11.1-15.9 Hematocrit 32.8 % 34.0-46.6 MCV 99 fL 79-97 MCH 32.1 pg 26.6-33.0 MCHC 32.6 g/dL 31.5-35.7 RDW 13.7 % 12.3-15.4 Platelets 350 x10E3/uL 150-379 Neutrophils 75 % Lymphs 18 % Monocytes 5 % Eos 1 % Basos 1 % Neutrophils (Absolute) 9.4 x10E3/uL 1.4-7.0 Lymphs (Absolute) 2.2 x10E3/uL 0.7-3.1 Monocytes(Absolute) 0.7 x10E3/uL 0.1-0.9 Eos (Absolute) 0.1 x10E3/uL 0.0-0.4 Baso (Absolute) 0.1 x10E3/uL 0.0-0.2 Immature Granulocytes 0 % Immature Grans (Abs) 0.0 x10E3/uL 0.0-0.1 CBC With Differential/Platelet - 08/15/16 10:40 WBC 10.3 x10E3/uL 3.4-10.8 RBC 3.96 x10E6/uL 3.77-5.28 Hemoglobin 11.7 g/dL 11.1-15.9 Hematocrit 37.8 % 34.0-46.6 MCV 96 fL 79-97 MCH 29.5 pg 26.6-33.0 MCHC 31.0 g/dL 31.5-35.7 RDW 14.8 % 12.3-15.4 Platelets 426 x10E3/uL 150-379 Neutrophils 77 % Lymphs 16 % Monocytes 5 % Eos 1 % Basos 1 % Neutrophils (Absolute) 7.9 x10E3/uL 1.4-7.0 Lymphs (Absolute) 1.7 x10E3/uL 0.7-3.1 Monocytes(Absolute) 0.5 x10E3/uL 0.1-0.9 Eos (Absolute) 0.1 x10E3/uL 0.0-0.4 Baso (Absolute) 0.1 x10E3/uL 0.0-0.2 Immature Granulocytes 0 % Immature Grans (Abs) 0.0 x10E3/uL 0.0-0.1 CBC With Differential/Platelet - 08/25/16 09:05 WBC 9.3 x10E3/uL 3.4-10.8 RBC 3.68 x10E6/uL 3.77-5.28 Hemoglobin 10.7 g/dL 11.1-15.9 Hematocrit 33.3 % 34.0-46.6 MCV 91 fL 79-97 MCH 29.1 pg 26.6-33.0 MCHC 32.1 g/dL 31.5-35.7 RDW 15.7 % 12.3-15.4 Platelets 370 x10E3/uL 150-379 Neutrophils 68 % Lymphs 20 % Monocytes 9 % Eos 2 % Basos 1 % Neutrophils (Absolute) 6.4 x10E3/uL 1.4-7.0 Lymphs (Absolute) 1.9 x10E3/uL 0.7-3.1 Monocytes(Absolute) 0.8 x10E3/uL 0.1-0.9 Eos (Absolute) 0.2 x10E3/uL 0.0-0.4 Baso (Absolute) 0.1 x10E3/uL 0.0-0.2 Immature Granulocytes 0 % Immature Grans (Abs) 0.0 x10E3/uL 0.0-0.1 CBC With Differential/Platelet - 09/07/16 09:34 WBC 10.4 x10E3/uL 3.4-10.8 RBC 4.10 x10E6/uL 3.77-5.28 Hemoglobin 11.3 g/dL 11.1-15.9 Hematocrit 36.5 % 34.0-46.6 MCV 89 fL 79-97 MCH 27.6 pg 26.6-33.0 MCHC 31.0 g/dL 31.5-35.7 RDW 16.8 % 12.3-15.4 Platelets 373 x10E3/uL 150-379 Neutrophils 72 % Lymphs 18 % Monocytes 8 % Eos 1 % Basos 1 % Neutrophils (Absolute) 7.5 x10E3/uL 1.4-7.0 Lymphs (Absolute) 1.8 x10E3/uL 0.7-3.1 Monocytes(Absolute) 0.8 x10E3/uL 0.1-0.9 Eos (Absolute) 0.1 x10E3/uL 0.0-0.4 Baso (Absolute) 0.1 x10E3/uL 0.0-0.2 Immature Granulocytes 0 % Immature Grans (Abs) 0.0 x10E3/uL 0.0-0.1 CBC+Platelet+Hem Review - 09/23/16 12:58 WBC 6.2 x10E3/uL 3.4-10.8 RBC 4.26 x10E6/uL 3.77-5.28 Hemoglobin 11.0 g/dL 11.1-15.9 Hematocrit 36.5 % 34.0-46.6 MCV 86 fL 79-97 MCH 25.8 pg 26.6-33.0 MCHC 30.1 g/dL 31.5-35.7 RDW 17.3 % 12.3-15.4 Platelets 300 x10E3/uL 150-379 Neutrophils 49 % Lymphs 38 % Monocytes 8 % Eos 4 % Basos 1 % Neutrophils Absolute 3.0 X10E3/uL 1.4-7.0 Lymphs (Absolute) 2.4 X10E3/uL 0.7-3.1 Monocytes(Absolute) 0.5 X10E3/uL 0.1-0.9 Eos (Absolute Value) 0.2 X10E3/uL 0.0-0.4 Baso(Absolute) 0.1 X10E3/uL 0.0-0.2 Differential Comment Appear normal. RBC Comment Appear normal. Normal Platelet Comment Adequate Adequate Complete blood count (CBC) with automated white blood cell (WBC) differential - 10/10/16 09:22 Blood leukocytes automated count (number/volume) 11.5 10*3/uL 4.3-11.0 Blood erythrocytes automated count (number/volume) 4.70 10*6/uL 4.35-5.85 Venous blood hemoglobin measurement (mass/volume) 12.0 g/dL 11.5-16.0 Blood hematocrit (volume fraction) 40 % 35-52 Automated erythrocyte mean corpuscular volume 84 [foz_us] 80-99 Automated erythrocyte mean corpuscular hemoglobin (mass per erythrocyte) 26 pg 25-34 Automated erythrocyte mean corpuscular hemoglobin concentration measurement ( mass/volume) 30 g/dL 32-36 Automated erythrocyte distribution width ratio 18.4 % 10.0-14.5 Automated blood platelet count (count/volume) 298 10*3/uL 130-400 Automated blood platelet mean volume measurement 10.2 [foz_us] 7.4-10.4 Automated blood neutrophils/100 leukocytes 76 % 42-75 Automated blood lymphocytes/100 leukocytes 16 % 12-44 Blood monocytes/100 leukocytes 6 % 0-12 Automated blood eosinophils/100 leukocytes 2 % 0-10 Automated blood basophils/100 leukocytes 1 % 0-10 Blood neutrophils automated count (number/volume) 8.7 10*3 1.8-7.8 Blood lymphocytes automated count (number/volume) 1.8 10*3 1.0-4.0 Blood monocytes automated count (number/volume) 0.7 10*3 0.0-1.0 Automated eosinophil count 0.2 10*3/uL 0.0-0.3 Automated blood basophil count (count/volume) 0.1 10*3/uL 0.0-0.1 CBC - 12/26/16 17:36 WBC 9.8 x10E3/uL 3.4-10.8 RBC 5.04 x10E6/uL 3.77-5.28 Hemoglobin 12.9 g/dL 11.1-15.9 Hematocrit 40.8 % 34.0-46.6 MCV 81 fL 79-97 MCH 25.6 pg 26.6-33.0 MCHC 31.6 g/dL 31.5-35.7 RDW 19.3 % 12.3-15.4 Platelets 291 x10E3/uL 150-379 Neutrophils 68 % Not Estab. Lymphs 22 % Not Estab. Monocytes 7 % Not Estab. Eos 2 % Not Estab. Basos 1 % Not Estab. Neutrophils (Absolute) 6.7 x10E3/uL 1.4-7.0 Lymphs (Absolute) 2.1 x10E3/uL 0.7-3.1 Monocytes(Absolute) 0.7 x10E3/uL 0.1-0.9 Eos (Absolute) 0.2 x10E3/uL 0.0-0.4 Baso (Absolute) 0.1 x10E3/uL 0.0-0.2 Immature Granulocytes 0 % Not Estab. Immature Grans (Abs) 0.0 x10E3/uL 0.0-0.1 Immature Cells NRG NRBC NRG Hematology Comments: NR CBC With Differential/Platelet - 12/26/16 17:36 WBC 9.8 x10E3/uL 3.4-10.8 RBC 5.04 x10E6/uL 3.77-5.28 Hemoglobin 12.9 g/dL 11.1-15.9 Hematocrit 40.8 % 34.0-46.6 MCV 81 fL 79-97 MCH 25.6 pg 26.6-33.0 MCHC 31.6 g/dL 31.5-35.7 RDW 19.3 % 12.3-15.4 Platelets 291 x10E3/uL 150-379 Neutrophils 68 % Not Estab. Lymphs 22 % Not Estab. Monocytes 7 % Not Estab. Eos 2 % Not Estab. Basos 1 % Not Estab. Neutrophils (Absolute) 6.7 x10E3/uL 1.4-7.0 Lymphs (Absolute) 2.1 x10E3/uL 0.7-3.1 Monocytes(Absolute) 0.7 x10E3/uL 0.1-0.9 Eos (Absolute) 0.2 x10E3/uL 0.0-0.4 Baso (Absolute) 0.1 x10E3/uL 0.0-0.2 Immature Granulocytes 0 % Not Estab. Immature Grans (Abs) 0.0 x10E3/uL 0.0-0.1 Encounters ACCT No. Visit Date/Time Discharge Status Pt. Type Provider Facility Loc./Unit Complaint [id number] 07/10/2014 12:36:00 07/10/2014 23:59:59 [facility] Outpatient HIRAM SCHROEDER DDS [id number] 06/10/2014 09:39:00 06/10/2014 23:59:59 [facility] Outpatient DAY HUGHES APRN [id number] 04/09/2014 09:14:00 04/09/2014 23:59:59 [facility] Outpatient DAY HUGHES APRN S [id number] 03/28/2014 09:04:00 03/28/2014 23:59:59 [facility] Outpatient DONTAE BURTON MD [id number] 03/12/2014 12:43:00 03/12/2014 23:59:59 CLS Outpatient DAY HUGHES APRN S [id number] 08/28/2013 08:29:00 08/28/2013 23:59:59 CLS Outpatient MIMS ELVIA [id number] 08/28/2013 08:29:00 08/28/2013 23:59:59 CLS Outpatient ELVIA MIMS DO [id number] 08/26/2013 08:38:00 08/26/2013 23:59:59 CLS Outpatient DAY HUGHES APRN S [id number] 06/10/2013 00:00:00 06/10/2013 23:59:59 CLS Outpatient DAY HUGHES APRN [id number] 05/20/2013 09:55:00 05/20/2013 23:59:59 CLS Outpatient DAY HUGHES APRN S [id number] 04/26/2013 08:27:00 04/26/2013 23:59:59 CLS Outpatient DAY HUGHES APRN S [id number] 03/01/2013 08:48:00 03/01/2013 23:59:59 CLS Outpatient ROSENDO BARROW MD [id number] 03/01/2013 08:48:00 03/01/2013 23:59:59 CLS Outpatient ROSENDO BARROW MD [id number] 02/27/2013 08:35:00 02/27/2013 23:59:59 CLS Outpatient ELVIA MIMS DO [id number] 02/27/2013 08:35:00 02/27/2013 23:59:59 CLS Outpatient ELVIA MIMS DO [id number] 02/11/2013 12:12:00 02/11/2013 23:59:59 CLS Outpatient ELLENDAY CLARK APRN Singh [id number] 01/29/2013 10:02:00 01/29/2013 23:59:59 CLS Outpatient ROSENDO BARROW MD [id number] 12/25/2012 10:43:00 12/25/2012 23:59:59 CLS Outpatient ROSENDO BARROW MD [id number] 05/31/2012 11:49:00 05/31/2012 23:59:59 CLS Outpatient ELVIA MIMS DO Pooja [id number] 04/19/2012 12:03:00 04/19/2012 23:59:59 CLS Outpatient ELVIA MIMS DO Pooja [id number] 04/12/2012 13:09:00 04/12/2012 23:59:59 CLS Outpatient [id number] 03/08/2012 12:59:00 03/08/2012 23:59:59 CLS Outpatient ELVIA MIMS DO [id number] 02/24/2012 12:50:00 02/24/2012 23:59:59 CLS Outpatient [id number] 01/19/2012 10:05:00 01/19/2012 23:59:59 CLS Outpatient ELVIA MIMS DO [id number] 11/14/2012 13:11:00 Document Registration [id number] 09/05/2012 09:27:00 Document Registration [id number] 07/30/2012 08:21:00 Document Registration [id number] 03/18/2016 13:06:00 Document Registration [id number] 08/26/2016 08:06:00 Document Registration [id number] 03/01/2017 14:00:00 03/01/2017 23:59:59 CLS Outpatient DAY HUGHES APRN [facility] [place] [id number] 12/26/2016 16:40:00 Document Registration [id number] 08/03/2016 08:07:00 Document Registration [id number] 09/08/2016 08:06:00 Document Registration [id number] 12/27/2016 08:07:00 Document Registration [id number] 12/18/2017 11:18:00 12/18/2017 23:59:59 CLS Preadmit JOON CHAPIN APRN [facility] RT R91.8 LUNG MASS [id number] 12/18/2017 11:16:00 12/18/2017 23:59:59 CLS Preadmit FLORENCIO HERNÁNDEZ DO [facility] RAD LUNG MASS [id number] 06/20/2017 15:38:00 06/20/2017 23:59:59 CLS Outpatient SHERWIN UNDERWOOD 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 [facility] LAB D50.0 [id number] 05/13/2017 09:18:00 05/13/2017 23:59:59 CLS Outpatient ARTIE ORTIZ FACJorge, ALI FACP CCDS [facility] LAB E78.4 [id number] 04/11/2017 13:12:00 04/11/2017 23:59:59 CLS Outpatient ARTIE ORTIZ FACC, ALI FACP CCDS [facility] RAD I73.9 CLAUDICATION [id number] 03/31/2017 09:25:00 03/31/2017 23:59:59 CLS Outpatient ARTIE ORTIZ FACC, ALI FACP CCDS [facility] LAB I65.23 Z87.19 [id number] 01/30/2017 10:40:00 01/30/2017 14:30:00 DIS Outpatient HANSEL HARRISON MD [facility] ENDO EPIGASTRIC PAIN [id number] 01/23/2017 05:51:00 01/23/2017 15:06:00 DIS Outpatient HANSEL HARRISON MD [facility] PREOP EGD [id number] 01/06/2017 08:28:00 01/06/2017 23:59:59 CLS Outpatient DAY HUGHES [facility] RAD RUQ ABD PAIN [id number] 01/06/2017 22:46:00 01/06/2017 23:52:00 DIS Emergency JOANNE PERCY UFNES [facility] ER FALL/L FOOT INJ [id number] 12/29/2016 10:26:00 12/29/2016 23:59:59 CLS Preadmit DAY HUGHES 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 [facility] CARD RUQ ABD PAIN [id number] 10/10/2016 09:09:00 10/10/2016 23:59:59 CLS Outpatient SHERWIN UNDERWOOD 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 [facility] RAD INCREASED LEG SWELLING [id number] 08/31/2016 08:58:00 08/31/2016 23:59:59 CLS Outpatient SHERWIN UNDERWOOD [facility] RAD M79.89 LIMB SWELLING [id number] 07/26/2016 22:44:00 07/28/2016 10:48:00 DIS Inpatient JAMEEL TOMPKINS DO [facility] 4TH HEMATOCHEZIA,(LOW GI BLEEDING) [id number] 07/26/2016 12:08:00 07/26/2016 23:59:59 CLS Outpatient KENYETTA REA DO [facility] LAB K62.5 [id number] 07/20/2016 07:33:00 07/20/2016 10:15:00 DIS Outpatient KENYETTA REA DO [facility] ENDO RECTAL BLEEDING [id number] 07/19/2016 09:00:00 07/19/2016 09:49:00 DIS Outpatient KENYETTA REA DO [facility] PREOP BLACK STOOLS, CONSTIPATION [id number] 07/04/2016 08:18:00 07/06/2016 13:44:00 DIS Outpatient DAY HUGHES [facility] REHAB R SIDED BACK PAIN [id number] 06/19/2016 13:43:00 06/19/2016 15:54:00 DIS Emergency PERCY RUBIO DO [facility] ER BACK PAIN [id number] 06/14/2016 13:55:00 06/14/2016 23:59:59 CLS Outpatient NICK BETTS [facility] RAD CHRONIC RT SIDED LOW BACK PAIN W/ RT SIDED SCIATIC [id number] 06/30/2015 12:37:00 06/30/2015 15:18:00 DIS Emergency WILLIE WOODSON MD [facility] ER CHEST/BACK/UPPER RIGHT LEG PAIN [id number] 09/22/2014 08:40:00 09/22/2014 23:59:59 CLS Outpatient ARTIE ORTIZ FACC, DONTAE SERRA CCDS [facility] RAD CAROTID ARTERIAL DISEASE [id number] 08/04/2014 09:44:00 08/04/2014 23:59:59 CLS Outpatient SHERWIN UNDERWOOD [facility] RAD PSEUDOANEURYSM POST CATH RIGHT GROIN [id number] 07/31/2014 14:34:00 07/31/2014 19:30:00 DIS Outpatient ARTURO ORTIZ, JESSE Marquez [facility] CATH PSEUDOANEURYSM [id number] 07/30/2014 17:03:00 07/30/2014 21:44:00 DIS Emergency KANDICE ORTIZ, WILLIE Santos [facility] ER SWELLING CATH SITE [id number] 07/28/2014 02:30:00 07/29/2014 17:10:00 DIS Inpatient FELICITA FUNES ELVIA K [facility] CSD HYPOTENSION,FLOWERS,CHEST PAIN ,LEUKOCYTOSIS [id number] 06/26/2014 08:32:00 06/26/2014 23:59:59 CLS Outpatient DAY HUGHES [facility] RAD OSTEOPOROSIS [id number] 09/24/2013 08:41:00 09/24/2013 23:59:59 CLS Outpatient DAY HUGHES [facility] RAD ROUTINE [id number] 02/12/2013 12:47:00 02/12/2013 23:59:59 CLS Outpatient DAY HUGHES [facility] RAD LEFT KIDNEY. CYST ON LOWER POLE [id number] 02/01/2013 06:48:00 02/01/2013 23:59:59 CLS Outpatient DAY HUGHES [facility] RAD HX PANCREATIC NODULE [id number] 01/21/2013 15:54:00 01/22/2013 17:45:00 DIS Inpatient NEGRO DOWELL MD [facility] 4TH TIA [id number] 09/10/2012 09:26:00 09/10/2012 23:59:59 CLS Outpatient HUMBERTO FORD MD [facility] LAB MED USE [id number] 09/07/2012 07:38:00 09/07/2012 23:59:59 CLS Outpatient ARTIE ORTIZ FACC, DONTAE SERRA CCDS [facility] RAD DYSPNEA [id number] 04/23/2012 12:59:00 Document Registration [id number] 06/20/2011 08:19:00 Document Registration [id number] 03/17/2011 11:16:00 Document Registration [id number] 03/14/2011 11:49:00 Document Registration [id number] 02/28/2011 09:44:00 Document Registration [id number] 09/22/2014 08:41:12 ACT Document Registration [id number] 09/25/2016 17:06:00 Document Registration [id number] 08/16/2016 08:06:00 Document Registration
[2017-12-22] MEDS ORDERED: MIDAZOLAM 2 MG/2 ML (VERSED) VIAL ONE ×3 (07:15)
[2017-12-22] MEDS ORDERED: fentaNYL INJECTION 100 MCG/2 ML AMP ONE (07:15)
--- NOTE | 2017-12-22 07:16 | Progress Note-Pre Operative ---
Pre-Operative Progress Note H&P Reviewed The H&P was reviewed, patient examined and no changes noted. Time Seen by Provider: 07:16 Date H&P Reviewed: Dec 22, 2017 Time H&P Reviewed: 07:16 Pre-Operative Diagnosis: lung mass FLORENCIO HERNÁNDEZ DO Dec 22, 2017 07:16
--- NOTE | 2017-12-22 07:18 | Pulmonary Procedures ---
Pulmonary Procedures Date of Procedure Date of Service: Dec 22, 2017 Bronch Bronchoscopy with RML bronchoalveolar lavage (BAL), transbronchial washes and, Percepta brushes of mainstem ricardo. Preop DX ILD Postop DX: same Complications: none After informed consent obtained and formal time out pt was sedated using Fentanyl and Versed. Bronchoscope was advanced through the nare and vocal cords. 1% lidocaine was used to anesthetize vocal cords, epiglottis, ricardo, and left/right main stem bronchus. An anatomical tour was undertaken down to the segmental bronchi bilaterally. No endobronchial lesions noted. RML bronchoalveolar lavage (BAL), transbronchial washes and, Percepta brushes of mainstem ricardo were obtained. Pt tolerated procedure well. No complications noted. Stat CXR is pending. FLORENCIO HERNÁNDEZ DO Dec 22, 2017 07:18
--- NOTE | 2017-12-22 07:18 | Pre-Op Note & Conscious Sedat ---
Pre-Operative Progress Note H&P Reviewed The H&P was reviewed, patient examined and no changes noted. Date H&P Reviewed: Dec 22, 2017 Time H&P Reviewed: 07:18 Conscious Sedation Pre-Proced Time 07:16 ASA Score 3 For ASA 3 and 4: Consider anesthesia and medical clearance. Also, for patients with a history of failed moderate sedation consider anesthesia. Airway Lungs Heart ASA score ASA 1: a normal healthy patient ASA 2: a patient with a mild systemic disease (mid diabetes, controlled hypertension, obesity ASA 3: a patient with a severe systemic disease that limits activity (angina , COPD, prior Myocardial infarction) ASA 4: a patient with an incapacitating disease that is a constant threat to life (CHF, renal failure) ASA 5: a moribund patient not expected to survive 24 hrs. (ruptured aneurysm) ASA 6: a declared brain patient whose organs are being harvested. For emergent operations, add the letter E after the classification Mallampati Classification Grade 2 Sedation Plan Analgesia, Amnesia, Plan communicated to team members, Discussed options with patient/fam, Discussed risks with patient/fam The patient is an appropriate candidate to undergo the planned procedure, sedation, and anesthesia. The patient immediately re-assessed prior to indication. FLORENCIO HERNÁNDEZ DO Dec 22, 2017 07:18
[2017-12-22] MEDS ORDERED: PRIM250T33 PO (08:04)
[2017-12-22] MEDS ORDERED: propanolol PO (08:04)
[2017-12-22] MEDS ORDERED: ASPI-999 PO (08:04)
[2017-12-22] MEDS ORDERED: CLOP75TA28 PO (08:04)
[2017-12-22] MEDS ORDERED: ACET-789 PO (08:10)
[2017-12-22] MEDS ORDERED: NS IV 500 ML 500 ML IV PRN (08:11)
[2017-12-22] MEDS ORDERED: MIDAZOLAM 2 MG/2 ML (VERSED) VIAL IVP ONE (08:15)
[2017-12-22] MEDS ORDERED: fentaNYL INJECTION 100 MCG/2 ML AMP IVP ONE (08:15)
[2017-12-22] MEDS ORDERED: HURRICAINE EXT TUBE (BENZOCAINE) XX PRN (08:15)
[2017-12-22 08:18] VITALS: BP 129/74
[2017-12-22 08:35] VITALS: BP 110/55
--- NOTE | 2017-12-22 09:14 | Diagnostic Imaging Report ---
Portable semierect AP chest at 831 hours. INDICATION: Post bronchoscopy. FINDINGS: The heart size is within normal limits and stable when compared to 06/19/2016. The small nodular density in the left midlung noted on the PET/CT exam of 12/19/2017 is again visualized. The lungs are generally clear. There is no sign of failure, pneumonia or pleural effusion to indicate an acute abnormality. There is no pneumothorax identified either. The mediastinum is not widened. The osseous structures are intact. IMPRESSION: 1. There is no evidence for an acute cardiopulmonary abnormality. 2. These results were discussed with Dr. Bland. Dictated by: Dictated on workstation # [id number]
[2017-12-22 09:15] VITALS: BP 138/77
[2017-12-22 09:20] VITALS: BP 138/77
== END 2017-12-22 09:20 | disposition home or self-care (01) ==
LOC: ENDO 06:40
PROVIDERS: ATTEND Internal Medicine Critical Care Medicine
DX: J84.9 Interstitial pulmonary disease, unspecified (principal); J44.9 Chronic obstructive pulmonary disease, unspecified; F17.210 Nicotine dependence, cigarettes, uncomplicated; Z79.899 Other long term (current) drug therapy
CPT/HCPCS: 71045; 87070; 87101; 87116; 87205; 94640

== ENCOUNTER → 2017-12-25 | Outpatient (CLI) | payer MEDICARE ==
[~2017-12-25] MED LIST changes: +ACET-789 PO; +ASPI-999 PO; +CLOP75TA28 PO; +PRIM250T33 PO; +RT-ALBUTEROL SULF 2.5 MG/3 ML PRE-MIX VIAL INH ONE; +propanolol PO
== END ==
LOC: RT 10:28
PROVIDERS: ATTEND Nurse Practitioner Family
DX: R91.8 Other nonspecific abnormal finding of lung field (principal); J44.9 Chronic obstructive pulmonary disease, unspecified; R06.00 Dyspnea, unspecified; Z72.0 Tobacco use
CPT/HCPCS: 94060; 94726; 94729

== ENCOUNTER → 2018-02-09 | Outpatient (CLI) | payer MEDICARE ==
[~2018-02-09] MED LIST changes: -RT-ALBUTEROL SULF 2.5 MG/3 ML PRE-MIX VIAL INH ONE
--- NOTE | 2018-02-09 14:26 | Diagnostic Imaging Report ---
PROCEDURE: US Thyroid. TECHNIQUE: Multiple real-time grayscale images were obtained of the thyroid in various projections. INDICATION: Thyroid nodule. Right lobe of the thyroid measures 4.7 x 2.1 x 2.0 cm and the left lobe measures 4.3 x 1.9 x 1.8 cm. Bilateral thyroid nodules are noted. Largest nodule on the left is in the lower pole which appears to be peripherally calcified measuring 12 mm x 8 mm. There appear to be multiple mixed solid cystic nodules involving the right lobe. Largest is in the lower pole measuring 1.9 x 1.4 x 1.2 cm. Nodule in the upper pole measures 1.4 x 1.4 x 0.9 cm. IMPRESSION: Bilateral thyroid nodules. Nodules on the right appear to be mixed solid and cystic. Followup ultrasound in six months could be performed to confirm stability. Dictated by: Dictated on workstation # [id number]
== END ==
LOC: RAD 12:26
PROVIDERS: ATTEND Nurse Practitioner Community Health
DX: E04.2 Nontoxic multinodular goiter (principal)
CPT/HCPCS: 76536

== ENCOUNTER → 2018-03-09 | Outpatient (CLI) | payer MEDICARE ==
[~2018-03-09] MED LIST changes: +CATHETER FLUSH 10 ML SYR IV PRN; +REGADENOSON 0.4 MG/5 ML SYR (LEXISCAN) IV ONE
--- NOTE | 2018-03-12 13:26 | STRESS TEST ---
DATE OF SERVICE: 03/09/2018 RESTING AND POST REGADENOSON TECHNETIUM-99M TETROFOSMIN SPECT CT IMAGING ORDERING PHYSICIAN: Dr. Burton. PRIMARY PHYSICIAN: [facility]. CLINICAL DIAGNOSES: Coronary artery disease, hypertension, hyperlipidemia. Baseline images were carried out after injection of 10.92 mCi technetium-99m Tetrofosmin. This was followed by 0.4 mg regadenoson and 30.9 mCi technetium-99m Tetrofosmin for stress imaging. The echocardiogram showed sinus rhythm with right bundle branch block at baseline and it did not change significantly with the regadenoson infusion. The patient tolerated the procedure well except that she did have some coughing after the regadenoson infusion, which resolved in a couple minutes. Review of images at rest and following stress, does not indicate any significant perfusion defects consistent with significant myocardial ischemia or infarction. Gated images show normal global left ventricular systolic function and normal regional wall motion. Left ventricular ejection fraction is calculated to be 77%. Left ventricular end diastolic volume is 26 mL. TID is absent (1.02). CONCLUSIONS: 1. No evidence of any significant myocardial ischemia or infarction on this study. 2. Normal regional wall motion. 3. Normal global left ventricular systolic function with a calculated ejection fraction of 77%. Job ID: [id number] DocumentID: [id number] Dictated Date: 03/12/2018 13:08:47 [employer] Profiler Date: 03/12/2018 13:25:41 Dictated By: KIRBY BURTON MD, MA, FACP, FACC,
== END ==
LOC: CARD 07:08
PROVIDERS: ATTEND Internal Medicine Cardiovascular Disease
DX: I10 Essential (primary) hypertension (principal); I77.89 Other specified disorders of arteries and arterioles; E78.5 Hyperlipidemia, unspecified; I25.10 Atherosclerotic heart disease of native coronary artery without angina pectoris; Z72.0 Tobacco use
CPT/HCPCS: 78452; 93017

== ENCOUNTER 2018-03-22 12:03 | Outpatient (CLI) | payer MEDICARE ==
[~2018-03-22] VITALS: Ht 147.3 cm; Wt 63.5 kg
[~2018-03-22 12:03] MED LIST changes: -CATHETER FLUSH 10 ML SYR IV PRN; +POTA99TA21 PO; +PROP20TA5 PO; -REGADENOSON 0.4 MG/5 ML SYR (LEXISCAN) IV ONE
[2018-03-23] MEDS ORDERED: HYDR473S50 PO (15:35)
[2018-03-23] MEDS ORDERED: LEVO88TA54 PO (15:35)
== END 2018-03-22 12:11 | disposition home or self-care (01) ==
LOC: PREOP 12:03
PROVIDERS: ATTEND Surgery
DX: Z01.818 Encounter for other preprocedural examination (principal)

== ENCOUNTER 2018-03-23 08:35 | Day surgery (SDC) | payer MEDICARE ==
[~2018-03-23] VITALS: Ht 147.3 cm; Wt 63.5 kg
--- NOTE | 2018-03-23 07:56 | History & Physicial ---
History of Present Illness History of Present Illness Reason for visit/HPI To undergo total thyroidectomy to manage incidentally discovered, bilateral thyroid nodules found on a PET scan performed to evaluate a lung nodule Date of Admission 03/23/18 Date Seen by a Provider: Mar 23, 2018 Time Seen by a Provider: 07:53 I consulted on this patient on 03/23/18 07:52 Attending Physician Hansel Harrison MD Admitting Physician [place] Consult Allergies and Home Medications Allergies Coded Allergies: fluticasone (Verified Allergy, Unknown, RASH, 03/21/18) Home Medications Acetaminophen with Codeine 1 Each Tablet, 1 EACH PO Q4H PRN for PAIN-MODERATE, ( Reported) Aspirin 81 Mg Tab.chew, 81 MG PO DAILY, (Reported) Clopidogrel Bisulfate 75 Mg Tablet, 75 MG PO DAILY, (Reported) L.acidoph & Paracasei,B.lactis 1 Each Capsule, 1 EACH PO HS, (Reported) Lisinopril 10 Mg Tablet, 10 MG PO HS, (Reported) Pantoprazole Sodium 40 Mg Tablet.dr, 40 MG PO DAILY Prescribed by: HANSEL HARRISON on 01/30/17 1325 Potassium Gluconate 99 Mg Tablet, 99 MG PO DAILY, (Reported) Primidone 250 Mg Tablet, 250 MG PO HS, (Reported) Propranolol HCl 20 Mg Tablet, 20 MG PO HS, (Reported) Simvastatin 40 Mg Tablet, 40 MG PO HS, (Reported) Patient Home Medication List Home Medication List Reviewed: Yes Past Kfzqvaw-Jyughk-Ssngwb Hx Patient Social History Marrital Status: single Employed/Student: retired Type Used: Cigarettes 2nd Hand Smoke Exposure: No Recent Hopitalizations: No Immunizations Up To Date Tetanus Booster (TDap): Unknown Date of Pneumonia Vaccine: Jan 21, 2015 Date of Influenza Vaccine: Dec 31, 2016 Seasonal Allergies Seasonal Allergies: No Surgeries Yes (CARDIAC CATH; HYST/BSO-2 DIFFERENT SURGERIES; SURGERY FOR PROLAPSED BLADDER ) Adenoidectomy, Bladder Surgery, Cardiac, Hysterectomy, Oophorectomy, Tonsillectomy Respiratory Yes COPD Currently Using CPAP: No Currently Using BIPAP: No Cardiovascular Yes Coronary Artery Disease, High Cholesterol, Hypertension, Peripheral Vascular Neurological Yes (FAMILIAL TREMOR) Stroke Reproductive System Hx Reproductive Disorders: No Sexually Transmitted Disease: No HIV/AIDS: No Female 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, 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 Genitourinary Yes Kidney Stones Gastrointestinal Yes (black stools, RECENT COLONOSCOPY W/ BX ) Chronic Constipation Musculoskeletal Yes Arthritis, Back Injury, Chronic Back Pain Endocrine History of Endocrine Disorders: No HEENT History of HEENT Disorders: No Cancer No Psychosocial History of Psychiatric Problem: No Integumentary History of Skin or Integumenta: No Blood Transfusions History of Blood Disorders: No Adverse Reaction to a Blood Tr: No Family Medical History Significant Family History: CAD Over 55 Years Old Family Hx: Cardiovascular disease 19 FATHER ( at 73 with mi) Completed stroke 19 MOTHER ( at 83 complications of stroke) Review of Systems Constitutional: no symptoms reported EENTM: no symptoms reported Respiratory: cough Cardiovascular: no symptoms reported Gastrointestinal: no symptoms reported Genitourinary: no symptoms reported Musculoskeletal: no symptoms reported Skin: no symptoms reported Psychiatric/Neurological: No Symptoms Reported Physical Exam Vital Signs Capillary Refill : Height, Weight, BMI Height: 4'10.00" Weight: 140lbs. 0.0oz. 63.202861xa; 29.3 BMI Method:Stated General Appearance: No Apparent Distress Neck: Normal Inspection Respiratory: Lungs Clear Cardiovascular: Regular Rate, Rhythm Neurologic/Psychiatric: Alert, Oriented x3 Skin: Warm/Dry Assessment/Plan Assessment and Plan Lady with bilateral thyroid nodules, hypermetabolic on PET scan. For total thyroidectomy with frozen section. Admission Diagnosis Admission Status: Observation HANSEL HARRISON MD Mar 23, 2018 07:56
--- OUTSIDE RECORDS SUMMARY | 2018-03-23 08:41 | XMS REPORT ---
Author Author DAY HUGHES Organization [facility] Address [address] [place] [address] Care Team Providers Care Operating Systems Programmer Name Role Phone DAY HUGHES Unavailable PROBLEMS Type Condition ICD9-CM Code QYR71-DS Code Onset Dates Condition Status SNOMED Code Problem Dysfunction of right eustachian tube H69.81 Active 89338187 Problem Peripheral vascular disease, unspecified I73.9 Active 577018444 Problem Lymphocytosis D72.820 Active 76135923 Problem Cataracts, bilateral H26.9 Active 51049519 Problem Hyperlipemia E78.5 Active 08615826 Problem CVA (cerebral vascular accident) I63.9 Active 171871496 Problem 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 312083413 Problem Thyroid nodule E04.1 Active 459550305 Problem 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 of 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 Active [id number] Problem Diverticulitis of intestine without perforation or abscess without bleeding, unspecified part of intestinal tract K57.92 Active 554968118 Problem Iron deficiency anemia due to chronic blood loss D50.0 Active 218358782 Problem Lung nodule, solitary R91.1 Active 334140898 Problem Essential hypertension I10 Active 70717062 ALLERGIES Substance Reaction Event Type Date Status Flonase hives and itching Drug Allergy Jan, Active ENCOUNTERS Encounter Location Date Diagnosis [facility] [id number] [address] Jan, Nodular thyroid disease E04.1 ; Lung mass R91.8 ; Iron deficiency anemia due to chronic blood loss D50.0 ; Essential hypertension I10 and 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 of 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 [facility] [address] [id number] [id number] Dec, Dental examination Z01.20 [facility] [id number] [place] [address] 78066- 1878 Dec, Thyroid nodule E04.1 [place] [address] [address]- [address] Oct, Lung nodule, solitary R91.1 [place] [id number] [place] [address] 96416- 8951 Oct, [place] [address] [address]- 7371 Oct, [place] [id number] [place] [address] 31701- 8022 Oct, [place] [address] 90674- 6692 Sep, [place] [id number] [place] [address] 90929- 4552 Aug, [place] [id number] [place] [address] 90926- 4336 July, Arthralgia, unspecified joint M25.50 ; Essential hypertension I10 ; Seborrheic keratosis L82.1 and LLQ abdominal pain R10.32 [place] [id number] [place] [address] 42488- 5865 Feb, Arthralgia, unspecified joint M25.50 [place] [id number] [place] [address] 42949- 4302 Feb, Arthralgia, unspecified joint M25.50 [place] [id number] [place] [address] 81746- 9922 Dec, Arthralgia, unspecified joint M25.50 [place] [id number] [place] [address] 61250- 4414 Dec, Right flank pain R10.9 ; Left foot pain M79.672 ; Arthralgia , unspecified joint M25.50 and Encounter for immunization Z23 [place] [id number] [place] [address] 47416- 9081 09 Dec, 2016 CVA (cerebral vascular accident) I63.9 [place] [address] 36111- 1058 Dec, RUQ abdominal pain R10.11 [place] [address] 86370- 0601 Dec, Right lower quadrant pain R10.31 ; Diverticulitis of intestine without perforation or abscess without bleeding, unspecified part of intestinal tract K57.92 and Internal hemorrhoids K64.8 [place] [address] 93597- 6789 Nov, [place] [address] 69762- 7309 Oct, [place] [address] 79504- 4368 Aug, Iron deficiency anemia due to chronic blood loss D50.0 [place] [address] 96084- 2039 Aug, Peripheral vascular disease, unspecified I73.9 and Colitis K52.9 [place] [id number] [place] [address] 34392- 7380 14 Aug, 2016 H/O: GI bleed Z87.19 [place] [id number] [place] [address] 97898- 4298 Aug, CVA (cerebral vascular accident) I63.9 [place] [id number] [place] [address] 43151- 6564 Aug, RUQ abdominal pain R10.11 [place] [address] 29709- 2285 July, RUQ abdominal pain R10.11 and Lymphocytosis D72.820 [place] [address] 45304- 8569 July, [facility] [address], [place] [address] July, [address]52.[address] [facility] [id number] [place] [address] [id number] July, [facility] [address] Jun, Right flank pain R10.9 [facility] [id number] [place] [address] 44029- 5770 May, Urinary tract infection without hematuria, site unspecified N39.0 and Right flank pain R10.9 [facility] [id number] [place] [address] 53793- 9891 Feb, Acute non-recurrent maxillary sinusitis J01.00 and Need for hepatitis C screening test Z11.59 [facility] [id number] [place] [address] [id number] Jan, Dental examination Z01.20 [facility] [id number] [place] [address] [id number] Dec, Dental examination Z01.20 [facility] [id number] [place] [address] [id number] Dec, Dental examination Z01.20 [facility] [address], [place] [address] Dec, [facility] [id number] [place] [address] 35795 2546 Dec, [facility] [id number] [place] [address] [id number] Dec, Dental examination Z01.20 [facility] [id number] [place] [address] 57129 2546 Nov, [facility] [id number] [place] [address] [id number] Nov, Dental examination Z01.20 [facility] [address] [address] [address] Oct, Arthralgia, unspecified joint M25.50 and Essential hypertension I10 [facility] [id number] [place] [address] 123228- 1337 Oct, [facility] [id number] [place] [address] 45908 -4985 Sep, Bilateral otitis media, unspecified chronicity, unspecified otitis media type H66.93 [facility] [id number] [place] [address] [id number] 13 Sep, 2015 Dental examination Z01.20 [facility] [id number] [place] [address] [id number] 16 Aug, 2015 Dental examination V72.2 [place] [id number] [place] [address] 43070- 0284 14 Aug, 2015 Essential hypertension I10 and Muscle cramping R25.2 [facility] [id number] [place] [address] 15858- 0965 09 Aug, 2015 Tension-type headache, not intractable, unspecified chronicity pattern G44.209 ; Muscle cramping R25.2 and Right leg pain M79.604 [facility] [id number] [place] [address] [id number] July, Dental examination Z01.20 [facility] [id number] [place] [address] [id number] July, Encounter for dental examination and cleaning without abnormal findings Z01.20 and Dental caries K02.9 [facility] [id number] [place] [address] [id number] Jun, Encounter for dental examination Z01.20 [facility] [id number] [place] [address] [id number] 3704 Apr, [facility] [id number] [place] [address] 18745 -4300 Apr, Bronchitis J40 [place] [id number] [place] [address] 00039- 4979 Feb, Hyperlipemia E78.5 ; Carotid arterial disease I77.9 ; Tobacco use Z72.0 ; Hypertension I10 ; RBBB I45.10 and CVA (cerebral vascular accident) I63.[address] 74594- 2841 Feb, Status post CVA Z86.73 ; Dysfunction of right eustachian tube H69.81 and Essential hypertension I10 [address] 31570- 3090 Dec, Encounter for immunization Z23 [address] 81538- 1617 Oct, PVD (peripheral vascular disease) 443.9 and Weight loss 783.[address] 98162- 7366 Oct, PVD (peripheral vascular disease) 443.9 and Weight loss 783.[address] 97413- 1948 Aug, Hyperlipidemia 272.4 ; Carotid arterial disease 447.9 ; Tobacco dependency 305.1 ; Hypertension 401.9 ; RBBB 426.4 and CVA (cerebral infarction) 434.[address] 64359- 9759 Aug, [address] 96483- 2955 Aug, 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 71525- 1663 July, Chest pain, unspecified 786.50 ; Occlusion [...] for prophylactic vaccination and inoculation, Influenza V04.81 [facility] [id number] [place] [address] 50223- 5084 Jun, [facility] [id number] [place] [address] 06364- 4513 Jun, [facility] [id number] [place] [address] [id number]- 6361 May, [facility] [id number] [place] [address] 89433- 6191 May, [facility] [id number] [place] [address] 34163- 9636 May, [facility] [id number] [place] [address] 51137- 3886 May, [facility] [id number] [place] [address] [id number]- 1009 Mar, [facility] [id number] [place] [address] 21655- 5238 Mar, [facility] [id number] [place] [address] 873138- 3423 Mar, [facility] [id number] [place] [address] 67923- 5168 Mar, [facility] [place] [facility] [address] [id number] [place] [address]- 4659 Mar, [facility] [place] [facility] [address] [id number] [place] [address] Mar, [facility] [place] [facility] [address] [id number] [place] [address]- 6166 Mar, [facility] [place] [facility] [address] [id number] [place] [address]- 5558 Mar, [facility] [place] [facility] [address] [id number] [place] [address]- 4278 Mar, [facility] [place] [facility] [address] [id number] [place] [address]- 7055 Mar, [facility] [place] [facility] [address] [id number] [place] [address]- 0851 Feb, [facility] [place] [facility] [address] [id number] [place] [address]- 3257 Feb, [facility] [place] [facility] [address] [id number] [place] [address]- 4613 Feb, [facility] [place] [facility] [address] [id number] [place] [address]- 8269 Feb, [facility] [place] [facility] [address] [id number] [place] [address]- 5828 Feb, [facility] [place] [facility] [address] [id number] [place] [address]- 6289 Feb, [facility] [place] [facility] [address] [id number] [place] [address]- 3167 Feb, [facility] [place] [facility] [address] [id number] [place] [address]- 4336 Feb, [facility] [place] [facility] [address] [id number] [place] [address]- 1554 Jan, [facility] [place] [facility] [address] [id number] [place] [address]- 3053 Jan, [facility] [place] [facility] [address] [id number] [place] 6929 Nov, [facility] [place] [facility] [address] [id number] [place] [address]- 5839 Nov, [facility] [place] [facility] [address] [id number] [place] [address]- 8774 Sep, [facility] [place] [facility] [address] [id number] [place] [address]- 8189 Sep, [facility] [place] [facility] [address] [id number] [place] [address]- 0997 Sep, [facility] [place] [facility] [address] [id number] [place] [address]- 5203 Sep, [facility] [place] [facility] [address] [id number] [place] [address]- 0811 Aug, [facility] [place] [facility] [address] [id number] [place] [address]- 0703 Aug, [facility] [place] [facility] [address] [id number] [place] [address]- 7036 Aug, [facility] [place] [facility] [address] [id number] [place] [address]- 6920 Aug, [facility] [place] [facility] [address] [id number] [address]- 8162 Aug, [facility] [place] [facility] [address] [id number], [place] [address]- 3198 Aug, [facility] [place] [facility] [address] [id number] [place] [address]- 9359 July, [facility] [place] [facility] [address] [id number] [place] [address]- 0035 July, [facility] [place] [facility] [address] [id number] [place] [address]- 4132 July, [facility] [place] [facility] [address] [id number] [place] [address]- 0154 July, [facility] [place] [facility] [address] [id number] [place] [address]- 4340 Jun, [facility] [place] [facility] [address] [id number] [place] 5066 Jun, [facility] [place] [facility] [address] [id number] [place] [address]- 2376 Apr, [facility] [place] [facility] [address] [id number] [place] [address]- 4598 Apr, [facility] [place] [facility] [address] [id number] [place] [address]- 1874 Apr, [facility] [place] [facility] [address] [id number] [place] [address]- 7310 Apr, [facility] [place] [facility] [address] [id number] [place] [address]- 6999 Apr, [facility] [place] [facility] [address] [id number] [place] [address]- 0677 Apr, [facility] [place] [facility] [address] [facility] [id number] [place] [address]- 5105 Mar, [facility] [place] [facility] [address] [facility] [id number] [place] [address]- 8256 Mar, [facility] [place] [facility] [address] [id number] [place] [address]- 2841 Mar, [facility] [place] [facility] [address] [id number] [place] [address]- 3835 Mar, [facility] [place] [facility] [address] [id number] [place] [address]- 3170 Mar, [facility] [place] [facility] [address] [facility] [id number] [place] [address]- 0306 Feb, [facility] [place] [facility] [address] [facility] [id number] [place] [address]- 0788 Feb, [facility] [address] [id number] [place] [address]- 9709 Feb, [facility] [place] [facility] [address] [id number] [place] [address]- 2205 Feb, [facility] [place] [facility] [address] [id number] [place] [address]- 8298 Feb, [facility] [place] [facility] [address] [id number] [place] [address]- 9482 Feb, [facility] [place] [facility] [address] [id number] [place] [address]- 1323 Feb, [facility] [place] [facility] [address] [id number] [place] [address]- 5541 Feb, [facility] [place] [facility] [address] [id number] [place] [address]- 5940 Feb, [facility] [place] [facility] [address] [id number] [place] [address]- 1054 Feb, [facility] [place] [facility] [address] [id number] [place] [address]- 5789 Feb, [facility] [place] [facility] [address] [id number] [place] [address]- 2411 Feb, [facility] [place] [facility] [address] [id number], [place] [address]- 6769 Jan, [facility] [place] [facility] [address] [id number], [place] [address]- 7762 Jan, [facility] [place] [facility] [address] [id number] [place] [address]- 4230 Jan, [facility] [place] [facility] [address] [id number] [place] [address]- 6591 Jan, [facility] [place] [facility] [address] [id number] [place] [address]- 6515 Jan, [facility] [place] [facility] [address] [id number] [place] [address]- 5058 Jan, [facility] [place] [facility] [address] [id number] [place] [address]- 3368 Jan, [facility] [place] [facility] [address] [id number] [place] [address]- 6585 Jan, [facility] [place] [facility] [address] [id number] [place] [address]- 7444 Jan, [facility] [place] [facility] [address] [id number] [place] [address]- 2748 Jan, [facility] [place] [facility] [address] [id number] [place] [address]- 7157 Jan, [facility] [place] [facility] [address] [id number] [place] [address]- 1069 Jan, [facility] [place] [facility] [address] [id number] [place] [address]- 8020 Jan, [facility] [place] [facility] [address] [id number] [place] [address]- 8455 Jan, [facility] [place] [facility] [address] [id number] [place] [address]- 1950 Jan, [facility] [place] [facility] [address] [id number] [place] [address]- 5275 Dec, [facility] [place] [facility] [address] [id number] [place] [address]- 5564 Dec, [facility] [place] [facility] [address] [id number] [place] [address]- 4187 Dec, [facility] [place] [facility] [address] [id number] [place] [address]- 9850 Dec, [facility] [place] [facility] [address] [id number] [place] [address]- 3978 Oct, [facility] [place] [facility] [address] [id number] [place] [address]- 4504 Oct, [facility] [place] [facility] [address] [id number] [place] [address]- 5954 Oct, [facility] [address] [id number] [place] [address]- 3465 Sep, [facility] [address] [id number] [place] [address]- 0996 Aug, [facility] [address] [id number] [place] [address]- 3836 July, [facility] [address] [id number] [place] [address]- 0363 July, [facility] [address] [id number] [place] [address]- 9326 July, [facility] [address] [id number] [place] [address]- 9495 July, [facility] [address] [id number] [place] [address]- 2289 May, [facility] [address] [id number] [place] [address]- 9687 May, [facility] [address] [id number] [place] [address]- 2757 Mar, [facility] [address] [id number] [place] [address]- 5360 Mar, [facility] [address] [id number] [place] [address]- 8885 Mar, [facility] [address] [id number] [place] [address]- 2555 Feb, [facility] [place] [facility] [address] [id number] [place] [address]- 8522 Feb, [facility] [place] [facility] [address] [id number] [place] [address]- 2973 Feb, [facility] [address] [id number], [place] [address]- 4376 Feb, [facility] [place] [facility] [address] [id number] [place] 9234 Feb, [facility] [place] [facility] [address] [id number] [place] [address]- 2221 Feb, [facility] [place] [facility] [address] [facility] [id number] [place] [address]- 2562 Jan, [facility] [place] [facility] [address] [id number], [place] [address]- 6367 Jan, [facility] [place] [facility] [address] [id number] [place] [address]- 5566 Jan, [facility] [place] [facility] [address] [id number] [place] [address]- 5055 Jan, [facility] [place] [facility] [address] [id number], [place] [address]- 1699 Jan, [facility] [place] [facility] [address] [id number], [place] [address]- 5697 Jan, [facility] [place] [facility] [address] [id number], [place] [address]- 8082 Jan, [facility] [place] [facility] [address] [id number], [place] [address] Jan, [facility] [place] [facility] [address] [id number], [place] [address] Dec, [facility] [place] [facility] [address] [id number], [place] [address] Dec, [facility] [place] [facility] [address] [id number], [place] [address] Dec, [facility] [place] [facility] [address] [facility] [id number][place] [address] Dec, [facility] [place] [facility] [address] [facility] [id number], [place] [address] Oct, [facility] [place] [facility] [address] [id number] [place] [address] 31 Sep, 2011 [facility] [address] [id number] [place] [address] 30 Sep, 2011 [facility] [place] [facility] [address] [id number] [place] [address] 25 Sep, 2011 [facility] [address] [id number] [place] [address] Sep, [facility] [address] [id number] [place] [address] Jun, [facility] [address] [id number] [place] [address] May, [facility] [address] [id number] [place] [address] 14 Apr, 2011 [facility] [address] [id number] [place] [address] Apr, [facility] [address] [id number] [place] [address] Apr, [facility] [address] [id number] [place] [address] Feb, [facility] [address] [id number] [place] [address] Feb, [facility] [address] [id number] [place] [address] Jan, [facility] [address] [id number] [place] [address] Jan, [facility] [place] [facility] [address] [id number] [place] [address] Jan, [facility] [place] [facility] [address] [id number] [place] [address] Feb, [facility] [place] [facility] [address] [id number] [place] [address] Feb, [facility] [address] [id number] [place] [address] 30 Feb, 2010 [facility] [place] [facility] [address] [id number] [place] [address] 30 Feb, 2010 [facility] [place] [facility] [address] [id number] [place] [address] 27 Feb, 2010 [facility] [place] [facility] [address] [id number] [place] [address] 23 Feb, 2010 [facility] [address] [id number] [place] [address] 20 Feb, 2010 [facility] [place] [facility] [address] [id number] [place] [address]- [address] 18 Feb, 2010 [facility] [place] [facility] [address] [id number] [place] [address] 18 Feb, 2010 [facility] [place] [facility] [address] [id number] [place] [address]- [address] 06 Feb, 2010 [facility] [place] [facility] [address] [id number] [place] [address] Jan, [facility] [place] [facility] [address] [id number], [place] [address] 24 Dec, 2009 [facility] [place] [facility] [address] [id number], [place] [address] 14 Nov, 2009 [facility] [place] [facility] [address] [id number], [place] [address] 18 Mar, 2009 [facility] [place] [facility] [address] [id number] [place] [address] Jan, [facility] [place] [facility] [address] [id number], [place] [address] 15 Dec, 2008 [facility] [place] [facility] [address] [id number], [place] [address] 15 Dec, 2008 [facility] [place] [facility] [address] [facility] [id number] [place] [address] Sep, [facility] [address] [facility] [id number], [place] [address] Jun, [facility] [address] [facility] [id number], [place] [address] Mar, [facility] [address] [facility] [id number][place] [address] Jan, IMMUNIZATIONS No Known Immunizations SOCIAL HISTORY Never Assessed REASON FOR VISIT pulmanologist f/u Pt had a test done Monday at hospital on Thyroid here to get results. FREDERICK [facility]ink PLAN OF CARE Activity Details Follow Up 4 Months Reason:htn Pending Test TSH w/ FREE T4 Pending Test CBC VITAL SIGNS Height 57 in 2018-02-12 Weight 141.8 lbs 2018-02-12 Temperature 98.2 degrees Fahrenheit 2018-02-12 Heart Rate 82 bpm 2018-02-12 Respiratory Rate 18 2018-02-12 BMI 30.68 kg/m2 2018-02-12 Blood pressure systolic 132 mmHg 2018-02-12 Blood pressure diastolic 68 mmHg 2018-02-12 MEDICATIONS Medication Instructions Dosage Frequency Start Date End Date Duration Status Tylenol with Codeine #3 300-30 mg 1-2 tablet by Oral route 4 times per day PRN July, Active Calcium Oral Once a day 2 tab 24h Active Primidone 250 MG Orally Once a day 5 tablets at bedtime 24h Feb, Active Pantoprazole Sodium 40 MG TAKE ONE (1) TABLET BY MOUTH ONCE DAILY 30 Active potassium 1 tab Active Protonix 40 MG Orally Once a day 1 tablet 24h 30 days Not-Taking Propranolol HCl 20 mg Orally twice a day 1 tablet on an empty stomach 12h 30 Active Probiotic Active Lisinopril 10 Orally Once a day [facility] 1 tablet 90 Active Simvastatin 40 MG Orally Once a day 1 tablet 24h 30 days Active RESULTS No Results PROCEDURES Procedure Date Ordered Result Body Site LAB NOT BILLED BY [facility] Feb 12, 2018 [facility] VISIT ESTABLISHED PATIENT Feb 12, 2018 HUGO, ROUTINE* Feb 12, 2018 INSTRUCTIONS MEDICATIONS ADMINISTERED No Known Medications MEDICAL [...] Right DVT 08/2016 Medical History stomach ulcer Medical History PFT 11/2017 [facility]NL Surgical History Tonsillectomy age 7 Surgical History [...] Surgical History Gastric and Duodenal ulcer 01/2017 Surgical History abdominal aortic aneurysm repair Hospitalization History Heart cath per Dr. Burton at [facility]- hypotension 08/08 Hospitalization History Hematochezia-[facility] 07/27/16
--- OUTSIDE RECORDS SUMMARY | 2018-03-23 08:42 | XMS REPORT ---
Author Author ANDRES ALVARADO [facility] Address Unknown Care Team Providers Care Surety Bond Agent Name Role Phone ANDRES ALVARADO Unavailable PROBLEMS Type Condition ICD9-CM Code YOQ78-SG Code Onset Dates Condition Status SNOMED Code Problem CVA (cerebral vascular accident) I63.9 Active 548421073 Problem 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 342265908 Problem Dysfunction of right eustachian tube H69.81 Active 11108365 Problem Cataracts, bilateral H26.9 Active 09903468 Problem Hyperlipemia E78.5 Active 66845602 Problem Lung nodule, solitary R91.1 Active 316092638 Problem Essential hypertension I10 Active 65291679 Problem Peripheral vascular disease, unspecified I73.9 Active 599666019 Problem Lymphocytosis D72.820 Active 37009103 Problem Diverticulitis of intestine without perforation or abscess without bleeding, unspecified part of intestinal tract K57.92 Active 067576190 Problem Iron deficiency anemia due to chronic blood loss D50.0 Active 319381491 ALLERGIES Substance Reaction Event Type Date Status Flonase hives and itching Drug Allergy Dec, Active Gadolinium-containing Contrast Media nausea Non Drug Allergy Dec, Active ENCOUNTERS Encounter Location Date Diagnosis [facility] [place] [facility] [id number] [place] [address] 06669- 3891 Jan, [facility] [id number] [id number] Dec, Dental examination Z01.20 [facility] [place] [facility] [id number] [place] [address] 89128- 0034 Dec, [facility] [place] [facility] [id number] [place] [address] 07730- 7029 Oct, Lung nodule, solitary R91.1 [facility] [place] [facility] [id number] [place] [address] 58851- 2072 Oct, [facility] [place] [facility] [id number] [place] [address] 45417- 5915 Oct, [facility] [place] [facility] [address] 984412- 4977 Oct, [facility] [place] [facility] [id number] [place] [address] 96442- 8982 Sep, [facility] [place] [facility] [address] 76063- 8680 Aug, [place] [address] 70290- 3221 July, Arthralgia, unspecified joint M25.50 ; Essential hypertension I10 ; Seborrheic keratosis L82.1 and LLQ abdominal pain R10.32 [place] [address] 40870- 5588 Feb, Arthralgia, unspecified joint M25.50 [place] [id number] [place] [address] 49525- 6205 Feb, Arthralgia, unspecified joint M25.50 [place] [id number] [place] [address] 89338- 2423 Dec, Arthralgia, unspecified joint M25.50 [place] [id number] [place] [address] 91974- 1346 Dec, Right flank pain R10.9 ; Left foot pain M79.672 ; Arthralgia , unspecified joint M25.50 and Encounter for immunization Z23 [place] [address] 22990- 0997 Dec, CVA (cerebral vascular accident) I63.9 [place] [id number] [place] [address] 73717- 9093 Dec, RUQ abdominal pain R10.11 [place] [address] [place] [address] 48496- 8275 Dec, Right lower quadrant pain R10.31 ; Diverticulitis of intestine without perforation or abscess without bleeding, unspecified part of intestinal tract K57.92 and Internal hemorrhoids K64.8 [place] [id number] [place] [address] 75794- 6503 Nov, [place] [id number] [place] [address] 87800- 5115 Oct, [place] [id number] [place] [address] 00136- 8319 Aug, Iron deficiency anemia due to chronic blood loss D50.0 [place] [id number] [place] [address] 67133- 9916 Aug, Peripheral vascular disease, unspecified I73.9 and Colitis K52.9 [place] [id number] [place] [address] 60803- 6971 Aug, H/O: GI bleed Z87.19 [place] [id number] [place] [address] 46914- 6565 Aug, CVA (cerebral vascular accident) I63.9 [place] [id number] [place] [address] 01951- 7311 Aug, RUQ abdominal pain R10.11 [place] [id number] [place] [address] 72622- 6100 July, RUQ abdominal pain R10.11 and Lymphocytosis D72.820 [place] [id number] [place] [address] 18650- 4985 July, [place] [id number] [place] [address] 72750- 6381 July, Colitis K52.9 [place] [id number] [place] [address] [id number] July, [place] [address] [id number] [address] 5698 Jun, Right flank pain R10.9 [facility] [place] [facility] [id number] [place] [address] 559096- 4474 May, Urinary tract infection without hematuria, site unspecified N39.0 and Right flank pain R10.9 [facility] [place] [facility] [id number] [place] [address] 70367- 5286 Feb, Acute non-recurrent maxillary sinusitis J01.00 and Need for hepatitis C screening test Z11.59 [facility] [id number] [place] [address] [id number] Jan, Dental examination Z01.20 [facility] [id number] [place] [address] [id number] Dec, Dental examination Z01.20 [facility] [id number] [place] [address] [id number] Dec, Dental examination Z01.20 [facility] [place] [facility] [id number] [place] [address] 63764- 7032 Dec, [facility] [place] [facility] [id number] [place] [address] 368618- 1726 Dec, [facility] [id number] [place] [address] [id number] Dec, Dental examination Z01.20 [facility] [place] [facility] [id number] [place] [address] 75662- 6768 Nov, [facility] [id number] [place] [address] [id number] Nov, Dental examination Z01.20 [facility] [place] [facility] [id number] [place] [address] 02381- 2014 Oct, Arthralgia, unspecified joint M25.50 and Essential hypertension I10 [facility] [place] [facility] [id number] [place] [address] 92821- 8240 Oct, [facility] [id number] [place] [address] [id number] -[id number] Sep, Bilateral otitis media, unspecified chronicity, unspecified otitis media type H66.93 [facility] [id number] [place] [address] [id number] Sep, Dental examination Z01.20 [facility] [address] [id number] Aug, 2015 Dental examination V72.2 [place] [address] 20455- 4271 14 Aug, 2015 Essential hypertension I10 and Muscle cramping R25.2 [place] [address] 422058- 0698 09 Aug, 2015 Tension-type headache, not intractable, unspecified chronicity pattern G44.209 ; Muscle cramping R25.2 and Right leg pain M79.604 [facility] [id number] [place] [address] [id number] July, Dental examination Z01.20 [facility] [address] [id number] July, Encounter for dental examination and cleaning without abnormal findings Z01.20 and Dental caries K02.9 [facility] [id number] [place] [address] [id number] Jun, Encounter for dental examination Z01.20 [facility] [facility] [address] [place] [address] 98565- 6826 Apr, [facility] [id number] [place] [address] 25751 -8716 Apr, Bronchitis J40 [place] [id number] [place] [address] [id number]- 0946 09 Feb, 2015 Hyperlipemia E78.5 ; Carotid arterial disease I77.9 ; Tobacco use Z72.0 ; Hypertension I10 ; RBBB I45.10 and CVA (cerebral vascular accident) I63.9 [place] [id number] [place] [address] 40457- 4307 Feb, Status post CVA Z86.73 ; Dysfunction of right eustachian tube H69.81 and Essential hypertension I10 [place] [id number] [place] [address] 61329- 3956 Dec, Encounter for immunization Z23 [address] 58828- 9261 Oct, PVD (peripheral vascular disease) 443.9 and Weight loss 783.[address] 09792- 2363 Oct, PVD (peripheral vascular disease) 443.9 and Weight loss 783.21 [place] [address] 93224- 1261 Aug, Hyperlipidemia 272.4 ; Carotid arterial disease 447.9 ; Tobacco dependency 305.1 ; Hypertension 401.9 ; RBBB 426.4 and CVA (cerebral infarction) 434.[address] 10623- 0391 Aug, [address] 12959- 0929 Aug, 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 26083- 3641 July, Chest pain, unspecified 786.50 ; Occlusion [...] for prophylactic vaccination and inoculation, Influenza V04.81 [facility] [address] [address]- 1399 Jun, [facility] [facility] [address] [id number] [address]- 3516 Jun, [facility] [facility] [id number] [place] [address] 41381- 3729 May, [facility] [place] [facility] [id number] [place] [address] 98044- 5676 May, [facility] [place] [facility] [id number] [place] [address] 49262- 1865 May, [facility] [place] [facility] [address] 5270 May, [facility] [place] [facility] [address]- 7110 Mar, [facility] [place] [facility] [address] 4371 Mar, [facility] [place] [facility] [address]- 6594 Mar, [facility] [facility] [address] [address]- 5152 Mar, [facility] [place] [facility] [id number] [place] [address] 68796- 3583 Mar, [facility] [place] [facility] [address] [address]- 2286 Mar, [facility] [place] [facility] [id number] [place] [address] 41130- 1795 Mar, [facility] [place] [facility] [address] [id number] [place] [address]- 3221 Mar, [facility] [place] [facility] [address] [id number] [place] [address]- 7505 Mar, [facility] [place] [facility] [address] [id number] [place] 8198 Mar, [facility] [place] [facility] [address] [id number] [place] [address]- 3120 Feb, [facility] [place] [facility] [address] [id number] [place] [address]- 7313 Feb, [facility] [place] [facility] [address] [id number] [place] [address]- 6023 Feb, [facility] [place] [facility] [address] [id number] [place] [address]- 6939 Feb, [facility] [place] [facility] [address] [id number] [place] [address]- 0470 Feb, [facility] [place] [facility] [address] [id number] [place] [address]- 6964 Feb, [facility] [place] [facility] [address] [id number] [place] [address]- 2560 Feb, [facility] [place] [facility] [address] [id number] [place] [address]- 3202 Feb, [facility] [place] [facility] [address] [id number], [place] [address]- 4932 Jan, [facility] [place] [facility] [address] [id number] [place] [address]- 0119 Jan, [facility] [place] [facility] [address] [id number] [place] 8640 Nov, [facility] [place] [facility] [address] [id number] [place] 9952 Nov, [facility] [place] [facility] [address] [id number] [place] [address]- 9459 Sep, [facility] [place] [facility] [address] [id number] [place] [address]- 8136 Sep, [facility] [place] [facility] [address] [id number] [place] [address]- 1419 Sep, [facility] [place] [facility] [address] [id number] [place] [address]- 4143 Sep, [facility] [place] [facility] [address] [id number] [place] [address]- 5231 Aug, [facility] [place] [facility] [address] [id number] [place] [address]- 2722 Aug, [facility] [place] [facility] [address] [id number] [place] [address]- 7544 Aug, [facility] [place] [facility] [address] [id number] [place] [address]- 1773 Aug, [facility] [place] [facility] [address] [id number] [place] [address]- 5256 Aug, [facility] [place] [facility] [address] [id number] [place] [address]- 9651 Aug, [facility] [place] [facility] [address] [id number] [place] [address]- 3816 July, [facility] [place] [facility] [address] [id number] [place] [address]- 5895 July, [facility] [place] [facility] [address] [id number] [place] [address]- 9815 July, [facility] [place] [facility] [address] [id number] [place] [address]- 9837 July, [facility] [place] [facility] [address] [id number] [place] [address]- 6328 Jun, [facility] [place] [facility] [address] [id number] [place] [address]- 8770 Jun, [facility] [place] [facility] [address] [id number] [place] [address]- 5303 Apr, [facility] [place] [facility] [address] [id number] [place] [address]- 4926 Apr, [facility] [place] [facility] [address] [id number] [place] [address]- 7183 Apr, [facility] [place] [facility] [address] [id number] [place] [address]- 8082 Apr, [facility] [place] [facility] [address] [id number] [place] [address]- 8574 Apr, [facility] [place] [facility] [address] [id number] [place] [address]- 0617 Apr, [facility] [place] [facility] [address] [id number] [place] [address]- 0037 Mar, [facility] [place] [facility] [address] [id number] [place] [address]- 8395 Mar, [facility] [place] [facility] [address] [id number] [place] [address]- 2716 Mar, [facility] [place] [facility] [address] [id number] [place] [address]- 7921 Mar, [facility] [place] [facility] [address] [id number] [place] [address]- 0294 Mar, [facility] [place] [facility] [address] [id number], [place] [address]- 5589 Feb, [facility] [place] [facility] [address] [id number] [place] [address]- 3748 31 Feb, 2013 [facility] [place] [facility] [address] [id number] [place] [address]- 5860 Feb, [facility] [place] [facility] [address] [id number] [place] 1759 Feb, [facility] [place] [facility] [address] [id number], [place] [address]- 2395 Feb, [facility] [address] [id number] [place] [address]- 7430 Feb, [facility] [place] [facility] [address] [id number], [place] [address]- 4950 Feb, [facility] [address] [id number] [place] [address]- 3757 Feb, [facility] [place] [facility] [address] [id number] [place] [address]- 7470 Feb, [facility] [address] [id number] [place] [address]- 6010 Feb, [facility] [address] [id number] [place] [address]- 1421 Feb, [facility] [address] [id number], [place] [address]- 8227 Feb, [facility] [address] [id number], [place] [address]- 3437 Jan, [facility] [address] [id number] [place] [address]- 7201 Jan, [facility] [place] [facility] [address] [id number], [place] [address]- 7706 Jan, [facility] [address] [id number], [place] [address]- 7386 Jan, [facility] [place] [facility] [address] [id number], [place] [address]- 9439 Jan, [facility] [place] [facility] [address] [id number], [place] [address]- 9599 Jan, [facility] [place] [facility] [address] [id number], [place] [address]- 1217 Jan, [facility] [place] [facility] [address] [id number], [place] [address]- 5436 Jan, [facility] [place] [facility] [address] [id number] [place] [address]- 5395 Jan, [facility] [place] [facility] [address] [id number] [place] 7891 Jan, [facility] [place] [facility] [address] [id number] [place] [address]- 1992 Jan, [facility] [place] [facility] [address] [id number] [place] [address]- 3753 Jan, [facility] [place] [facility] [address] [id number] [place] [address]- 5443 Jan, [facility] [place] [facility] [address] [id number] [place] [address]- 4313 Jan, [facility] [place] [facility] [address] [id number] [place] [address]- 5184 Jan, [facility] [place] [facility] [address] [id number] [place] [address]- 9986 Dec, [facility] [place] [facility] [address] [id number] [place] [address]- 6003 Dec, [facility] [place] [facility] [address] [id number] [place] [address]- 1874 Dec, [facility] [place] [facility] [address] [id number] [place] [address]- 4372 Dec, [facility] [place] [facility] [address] [id number] [place] [address]- 3061 Oct, [facility] [place] [facility] [address] [id number] [place] [address]- 4333 Oct, [facility] [place] [facility] [address] [id number] [place] [address]- 3997 Oct, [facility] [place] [facility] [address] [id number] [place] [address]- 1181 Sep, [facility] [place] [facility] [address] [id number] [place] [address]- 9388 Aug, [facility] [address] [id number] [place] [address]- 5308 July, [facility] [address] [id number] [place] [address]- 3786 July, [facility] [address] [id number] [place] [address]- 7728 July, [facility] [address] [id number] [place] [address]- 1460 July, [facility] [address] [id number] [place] [address]- 3700 May, [facility] [address] [id number] [place] [address]- 6876 May, [facility] [address] [id number] [place] [address]- 1533 Mar, [facility] [address] [id number] [place] [address]- 0500 Mar, [facility] [address] [id number] [place] [address]- 8311 Mar, [facility] [address] [id number] [place] [address]- 3645 Feb, [facility] [address] [id number], [place] [address]- 2539 Feb, [facility] [place] [facility] [address] [id number], [place] [address]- 6640 Feb, [facility] [place] [facility] [address] [id number] [place] [address]- 6447 Feb, [facility] [place] [facility] [address] [id number] [place] [address]- 8815 Feb, [facility] [place] [facility] [address] [id number] [place] [address]- 0668 Feb, [facility] [address] [id number] [place] [address]- 7696 Jan, [facility] [place] [facility] [address] [id number] [place] [address]- 2615 Jan, [facility] [place] [facility] [address] [id number] [place] [address]- 1506 Jan, [facility] [place] [facility] [address] [id number] [place] [address]- 1066 Jan, [facility] [place] [facility] [address] [id number] [place] [address]- 1406 Jan, [facility] [place] [facility] [address] [id number] [place] [address]- 3026 Jan, [facility] [place] [facility] [address] [id number] [place] [address]- 6034 Jan, [facility] [place] [facility] [address] [id number] [place] [address]- 4444 Jan, [facility] [place] [facility] [address] [id number] [place] [address]- 6863 Dec, [facility] [place] [facility] [address] [id number] [place] [address]- 5907 Dec, [facility] [place] [facility] [address] [id number] [place] [address] Dec, [facility] [place] [facility] [address] [id number] [place] [address] Dec, [facility] [place] [facility] [address] [id number] [place] [address] Oct, [facility] [place] [facility] [address] [id number] [place] [address] Sep, [facility] [place] [facility] [address] [id number] [place] [address] Sep, [facility] [place] [facility] [address] [id number] [place] [address] Sep, [facility] [place] [facility] [address] [id number] [place] [address] 2017 Sep, [facility] [place] [facility] [address] [id number] [place] [address] Jun, [facility] [place] [facility] [address] [id number] [place] [address] May, [facility] [place] [facility] [address] [id number] [place] [address] Apr, [facility] [place] [facility] [address] [id number] [place] [address] Apr, [facility] [place] [facility] [address] [id number] [place] [address] Apr, [facility] [place] [facility] [address] [id number] [place] [address] Feb, [facility] [place] [facility] [address] [id number] [place] [address] Feb, [facility] [place] [facility] [address] [id number] [place] [address] Jan, [facility] [place] [facility] [address] [id number] [place] [address] Jan, [facility] [place] [facility] [address] [id number] [place] [address] Jan, [facility] [place] [facility] [address] [id number] [place] [address] Feb, [facility] [place] [facility] [address] [id number] [place] [address] Feb, [facility] [place] [facility] [address] [id number] [place] [address] Feb, [facility] [place] [facility] [address] [id number] [place] [address] Feb, [facility] [place] [facility] [address] [id number], [place] [address] 27 Feb, 2010 [facility] [address] [id number] [place] [address] 23 Feb, 2010 [facility] [place] [facility] [address] [id number] [place] [address] Feb, [facility] [address] [id number] [place] [address] 18 Feb, 2010 [facility] [place] [facility] [address] [id number] [place] [address] 18 Feb, 2010 [facility] [address] [id number] [place] [address] 06 Feb, 2010 [facility] [place] [facility] [address] [id number] [place] [address] Jan, [facility] [address] [id number], [place] [address] 24 Dec, 2009 [facility] [place] [facility] [address] [id number] [place] [address] 14 Nov, 2009 [facility] [address] [id number], [place] [address] Mar, [facility] [place] [facility] [address] [id number], [place] [address] Jan, [facility] [place] [facility] [address] [id number], [place] [address] 15 Dec, 2008 [facility] [place] [facility] [address] [id number], [place] [address] 15 Dec, 2008 [facility] [place] [facility] [address] [id number], [place] [address] Sep, [facility] [place] [facility] [address] [id number], [place] [address] 20 Jun, 2008 [facility] [place] [facility] [address] [id number], [place] [address] Mar, [facility] [place] [facility] [address] [id number] [place] [address] Jan, IMMUNIZATIONS No Known Immunizations SOCIAL HISTORY Never Assessed 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 PLAN OF CARE Activity Details Follow Up prn Reason:as needed VITAL SIGNS Height 57 in 2018-01-23 Blood pressure systolic 125 mmHg 2018-01-23 Blood pressure diastolic 80 mmHg 2018-01-23 MEDICATIONS Medication Instructions Dosage Frequency Start Date End Date Duration Status Propranolol HCl 20 mg Orally twice a day 1 tablet on an empty stomach 12h 30 Active Pantoprazole Sodium 40 MG TAKE ONE (1) TABLET BY MOUTH ONCE DAILY 30 Active Calcium Oral Once a day 2 tab 24h Active Tylenol with Codeine #3 300-30 mg 1-2 tablet by Oral route 4 times per day PRN July, Active Protonix 40 MG Orally Once a day 1 tablet 24h 30 days Active Probiotic Active potassium 1 tab Active Simvastatin 40 MG Orally Once a day 1 tablet 24h 30 days Active Primidone 250 MG Orally Once a day 5 tablets at bedtime 24h Feb, Active Lisinopril 10 Orally Once a day LUPIN PHARMACE 1 tablet 90 Active RESULTS No Results PROCEDURES Procedure Date Ordered Result Body Site ADJUST COMPLETE DENTURE - MAXILLARY Jan 23, 2018 INSTRUCTIONS MEDICATIONS ADMINISTERED No Known Medications [...] at via ba- hypotension 08/08 Hospitalization History [facility] 07/27/16
--- OUTSIDE RECORDS SUMMARY | 2018-03-23 08:42 | XMS REPORT ---
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 Name Role Phone DAY HUGHES Unavailable PROBLEMS Type Condition ICD9-CM Code [id number] Code Onset Dates Condition Status SNOMED Code Problem 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 800530333 Problem Lymphocytosis D72.820 Active 23068930 Problem Dysfunction of right eustachian tube H69.81 Active 33346871 Problem Cataracts, bilateral H26.9 Active 04127280 Problem Hyperlipemia E78.5 Active 41482142 Problem CVA (cerebral vascular accident) I63.9 Active 634641929 Problem Thyroid nodule E04.1 Active 135981698 Problem Lung nodule, solitary R91.1 Active 715146816 Problem Iron deficiency anemia due to chronic blood loss D50.0 Active 674265046 Problem Peripheral vascular disease, unspecified I73.9 Active 372190935 Problem Essential hypertension I10 Active 66454916 Problem Diverticulitis of intestine without perforation or abscess without bleeding, unspecified part of intestinal tract K57.92 Active [id number] ALLERGIES No Information ENCOUNTERS Encounter Location Date Diagnosis [facility] [address] [address] Jan, [facility] [id number] [place] [address] [id number] Dec, Dental examination Z01.20 [facility] [id number] [place] [address] 63437- 4726 Dec, Thyroid nodule E04.1 [facility] [id number] [place] [address] 13562- 0245 Oct, Lung nodule, solitary R91.1 [facility] [id number] [place] [address] 31777- 2338 Oct, [facility] [id number] [place] [address] 89960- 5979 Oct, [facility] [id number] [place] [address] 764247- 2244 Oct, [facility] [id number] [place] [address] 33328- 3804 Sep, [facility] [address] 28842- 8068 Aug, [facility] [address] 49459- 4366 July, Arthralgia, unspecified joint M25.50 ; Essential hypertension I10 ; Seborrheic keratosis L82.1 and LLQ abdominal pain R10.32 [place] [address] 10131- 6403 Feb, Arthralgia, unspecified joint M25.50 [place] [id number] [place] [address] 87641- 3079 Feb, Arthralgia, unspecified joint M25.50 [place] [id number] [place] [address] 10083- 3306 Dec, Arthralgia, unspecified joint M25.50 [place] [id number] [place] [address] 42802- 0630 Dec, Right flank pain R10.9 ; Left foot pain M79.672 ; Arthralgia , unspecified joint M25.50 and Encounter for immunization Z23 [place] [address] 67179- 8407 Dec, CVA (cerebral vascular accident) I63.9 [place] [id number] [place] [address] 65050- 1703 Dec, RUQ abdominal pain R10.11 [place] [id number] [place] [address] 30092- 3514 Dec, Right lower quadrant pain R10.31 ; Diverticulitis of intestine without perforation or abscess without bleeding, unspecified part of intestinal tract K57.92 and Internal hemorrhoids K64.8 [place] [id number] [place] [address] 18369- 5956 Nov, [place] [address] 38994- 5268 Oct, [place] [address] 69860- 1610 Aug, Iron deficiency anemia due to chronic blood loss D50.0 [place] [address] 83334- 0621 Aug, Peripheral vascular disease, unspecified I73.9 and Colitis K52.9 [place] [address] 05566- 1201 Aug, H/O: GI bleed Z87.19 [place] [id number] [place] [address] 27008- 4835 Aug, CVA (cerebral vascular accident) I63.9 [place] [id number] [place] [address] 16916- 5184 Aug, RUQ abdominal pain R10.11 [place] [id number] [place] [address] 12730- 0168 July, RUQ abdominal pain R10.11 and Lymphocytosis D72.820 [place] [id number] [place] [address] 61768- 2980 July, [place] [id number] [place] [address] 50921- 6109 July, Colitis K52.9 [place] [address] [id number] [place] [address] [id number] July, [place] [id number] [place] [address] 204329- 5412 Jun, Right flank pain R10.9 [facility] [address] 498722- 4266 May, Urinary tract infection without hematuria, site unspecified N39.0 and Right flank pain R10.9 [facility] [id number] [place] [address] 212122- 0525 Feb, Acute non-recurrent maxillary sinusitis J01.00 and Need for hepatitis C screening test Z11.59 [facility] [id number] [place] [address] [id number] Jan, Dental examination Z01.20 [facility] [id number] [place] [address] [id number] Dec, Dental examination Z01.20 [facility] [id number] [place] [address] [id number] Dec, Dental examination Z01.20 [facility] [id number] [place] [address] 74653- 9360 Dec, [facility] [address] 80732- 2810 Dec, [facility] [id number] [place] [address] [id number] Dec, Dental examination Z01.20 [facility] [id number] [place] [address] 99729- 9750 Nov, [facility] [id number] [place] [address] [id number] Nov, Dental examination Z01.20 [facility] [id number] [place] [address] 72108- 0928 Oct, Arthralgia, unspecified joint M25.50 and Essential hypertension I10 [facility] [id number] [place] [address] 76579- 1017 Oct, [facility] [id number] [place] [address] [id number] -[phone] Sep, Bilateral otitis media, unspecified chronicity, unspecified otitis media type H66.93 [facility] [id number] [place] [address] [id number] Sep, Dental examination Z01.20 [facility] [id number] [place] [address] [id number] Aug, 2015 Dental examination V72.2 [place] [address] 22543- 1592 14 Aug, 2015 Essential hypertension I10 and Muscle cramping R25.2 [place] [address] 948074- 7545 09 Aug, 2015 Tension-type headache, not intractable, unspecified chronicity pattern G44.209 ; Muscle cramping R25.2 and Right leg pain M79.604 [facility] [id number] [place] [address] [id number] July, Dental examination Z01.20 [facility] [id number] [place] [address] [id number] July, Encounter for dental examination and cleaning without abnormal findings Z01.20 and Dental caries K02.9 [facility] [id number] [place] [address] [id number] Jun, Encounter for dental examination Z01.20 [facility] [id number] [place] [address] 10557- 2506 Apr, [facility] [id number] [place] [address] 48075 -9901 Apr, Bronchitis J40 [place] [address] [id number]- 8213 09 Feb, 2015 Hyperlipemia E78.5 ; Carotid arterial disease I77.9 ; Tobacco use Z72.0 ; Hypertension I10 ; RBBB I45.10 and CVA (cerebral vascular accident) I63.9 [place] [id number] [place] [address] 23090- 2820 Feb, Status post CVA Z86.73 ; Dysfunction of right eustachian tube H69.81 and Essential hypertension I10 [place] [id number] [place] [address] 59093- 7652 Dec, Encounter for immunization Z23 [address] 09690- 8866 Oct, PVD (peripheral vascular disease) 443.9 and Weight loss 783.[address] 76193- 0212 Oct, PVD (peripheral vascular disease) 443.9 and Weight loss 783.21 [place] [address] 28830- 8905 Aug, Hyperlipidemia 272.4 ; Carotid arterial disease 447.9 ; Tobacco dependency 305.1 ; Hypertension 401.9 ; RBBB 426.4 and CVA (cerebral infarction) 434.91 [place] [id number] [place] [address] 83160- 1606 Aug, [place] [id number] [place] [address] 12563- 0794 Aug, 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 [place] [id number] [place] [address] 48460- 6874 July, Chest pain, unspecified 786.50 ; Occlusion [...] for prophylactic vaccination and inoculation, Influenza V04.81 [facility] [id number] [place] [address] 36645- 1315 Jun, [facility] [id number] [place] [address] 36371- 5240 Jun, [facility] [id number] [place] [address] 58211- 0406 May, [facility] [id number] [place] [address] 81571- 6797 May, [facility] [id number] [place] [address] 71451- 6197 May, [facility] [id number] [place] [address] 758850- 5925 May, [facility] [id number] [place] [address] [id number]- 8012 Mar, [facility] [id number] 6571 Mar, [facility] [id number]- 7578 Mar, [facility] [id number]- 6956 Mar, [facility] [id number] [place] [address] 234856- 2163 Mar, [facility] [address]- 9196 Mar, [facility] [id number] [place] [address] 60129- 1271 Mar, [facility] [place] [facility] [address] [id number] [place] [address]- 0771 Mar, [facility] [place] [facility] [address] [id number] [place] [address]- 4890 Mar, [facility] [place] [facility] [address] [facility] [id number] [place] [address]- 2266 Mar, [facility] [place] [facility] [address] [id number] [place] [address]- 3392 Feb, [facility] [place] [facility] [address] [id number] [place] [address]- 2705 Feb, [facility] [place] [facility] [address] [id number] [place] [address]- 0145 Feb, [facility] [place] [facility] [address] [id number] [place] [address]- 3864 Feb, [facility] [place] [facility] [address] [id number] [place] [address]- 7637 Feb, [facility] [place] [facility] [address] [id number] [place] [address]- 4591 Feb, [facility] [place] [facility] [address] [id number] [place] [address]- 0764 Feb, [facility] [place] [facility] [address] [id number] [address]- 4834 Feb, [facility] [place] [facility] [address] [id number], [place] [address]- 1807 Jan, [facility] [place] [facility] [address] [id number] [place] [address]- 0625 Jan, [facility] [place] [facility] [address] [id number] [place] [address]- 6812 Nov, [facility] [place] [facility] [address] [id number] [place] [address]- 6028 Nov, [facility] [place] [facility] [address] [id number] [place] [address]- 4780 Sep, [facility] [place] [facility] [address] [id number] [place] [address]- 2135 Sep, [facility] [place] [facility] [address] [id number] [place] [address]- 5932 Sep, [facility] [place] [facility] [address] [id number] [place] [address]- 5864 Sep, [facility] [place] [facility] [address] [id number] [place] [address]- 9101 Aug, [facility] [place] [facility] [address] [id number] [place] [address]- 4659 Aug, [facility] [place] [facility] [address] [id number] [place] [address]- 5787 Aug, [facility] [place] [facility] [address] [id number] [place] [address]- 9886 Aug, [facility] [place] [facility] [address] [id number] [place] [address]- 7524 Aug, [facility] [place] [facility] [address] [id number] [place] [address]- 1938 Aug, [facility] [place] [facility] [address] [id number] [place] [address]- 2754 July, [facility] [place] [facility] [address] [id number] [place] [address]- 0512 July, [facility] [place] [facility] [address] [id number] [place] [address]- 1553 July, [facility] [place] [facility] [address] [id number] [place] 1390 July, [facility] [place] [facility] [address] [id number] [place] [address]- 5409 Jun, [facility] [place] [facility] [address] [id number] [place] [address]- 4465 Jun, [facility] [place] [facility] [address] [id number] [place] [address]- 7197 Apr, [facility] [place] [facility] [address] [id number] [place] [address]- 5981 Apr, [facility] [place] [facility] [address] [id number] [place] [address]- 7212 Apr, [facility] [place] [facility] [address] [id number] [place] [address]- 0996 Apr, [facility] [place] [facility] [address] [id number] [place] [address]- 6500 Apr, [facility] [place] [facility] [address] [id number] [place] [address]- 0605 Apr, [facility] [place] [facility] [address] [id number] [place] [address]- 5722 Mar, [facility] [place] [facility] [address] [id number] [place] [address]- 0665 Mar, [facility] [place] [facility] [address] [id number] [place] [address]- 1689 Mar, [facility] [place] [facility] [address] [id number] [place] [address]- 4333 Mar, [facility] [place] [facility] [address] [id number] [place] [address]- 9601 Mar, [facility] [place] [facility] [address] [id number], [place] [address]- 2899 Feb, [facility] [place] [facility] [address] [id number] [place] [address]- 7380 Feb, [facility] [place] [facility] [address] [id number] [place] [address]- 5403 Feb, [facility] [place] [facility] [address] [id number] [place] 8740 Feb, [facility] [place] [facility] [address] [id number] [place] [address]- 0671 Feb, [facility] [address] [id number] [place] [address]- 0795 Feb, [facility] [place] [facility] [address] [id number] [place] [address]- 8750 Feb, [facility] [address] [id number] [place] [address]- 3398 Feb, [facility] [place] [facility] [address] [id number] [place] [address]- 4451 Feb, [facility] [place] [facility] [address] [id number] [place] [address]- 3284 Feb, [facility] [place] [facility] [address] [id number] [place] [address]- 1210 Feb, [facility] [address] [id number] [place] [address]- 7122 Feb, [facility] [place] [facility] [address] [id number] [place] [address]- 6711 Jan, [facility] [place] [facility] [address] [id number] [place] [address]- 7805 Jan, [facility] [place] [facility] [address] [facility] [id number] [place] [address]- 0838 Jan, [facility] [place] [facility] [address] [id number] [place] [address]- 6041 Jan, [facility] [place] [facility] [address] [id number], [place] [address]- 6602 Jan, [facility] [place] [facility] [address] [id number] [place] [address]- 0426 Jan, [facility] [place] [facility] [address] [id number] [place] [address]- 2645 Jan, [facility] [place] [facility] [address] [id number], [place] [address]- 8122 Jan, [facility] [place] [facility] [address] [id number] [place] [address]- 7050 Jan, [facility] [place] [facility] [address] [id number] [place] [address]- 7453 Jan, [facility] [place] [facility] [address] [id number] [place] [address]- 9010 Jan, [facility] [place] [facility] [address] [id number] [place] [address]- 0240 Jan, [facility] [place] [facility] [address] [id number] [place] [address]- 0413 Jan, [facility] [place] [facility] [address] [id number] [place] [address]- 4505 Jan, [facility] [place] [facility] [address] [id number] [place] [address]- 0586 Jan, [facility] [place] [facility] [address] [id number] [place] [address]- 7079 Dec, [facility] [place] [facility] [address] [id number] [place] [address]- 8913 Dec, [facility] [place] [facility] [address] [id number] [place] [address]- 0227 Dec, [facility] [place] [facility] [address] [id number] [place] [address]- 1287 Dec, [facility] [place] [facility] [address] [id number] [place] [address]- 7334 Oct, [facility] [place] [facility] [address] [id number] [place] [address]- 5242 Oct, [facility] [place] [facility] [address] [id number] [place] [address]- 4862 Oct, [facility] [place] [facility] [address] [id number] [place] [address]- 7273 Sep, [facility] [place] [facility] [address] [id number] [place] [address]- 7680 Aug, [facility] [address] [id number] [place] [address]- 8201 July, [facility] [address] [id number] [place] [address]- 1436 July, [facility] [address] [id number] [place] [address] 2546 July, [facility] [address] [id number] [place] [address]- 7946 July, [facility] [address] [id number] [place] [address]- 2308 May, [facility] [address] [id number] [place] [address]- 9258 May, [facility] [address] [id number] [place] [address]- 0921 Mar, [facility] [address] [id number] [place] [address]- 7567 Mar, [facility] [address] [id number] [place] [address]- 8447 Mar, [facility] [address] [id number] [place] [address]- 1919 Feb, [facility] [address] [id number] [place] [address]- 6569 Feb, [facility] [place] [facility] [address] [id number], [place] [address]- 4208 Feb, [facility] [place] [facility] [address] [id number] [place] [address]- 2497 Feb, [facility] [place] [facility] [address] [id number] [place] [address]- 3941 Feb, [facility] [place] [facility] [address] [id number] [place] [address]- 0336 Feb, [facility] [place] [facility] [address] [id number] [place] [address]- 2746 Jan, [facility] [place] [facility] [address] [id number] [place] [address]- 4565 Jan, [facility] [place] [facility] [address] [id number] [place] [address]- 6376 Jan, [facility] [place] [facility] [address] [id number] [place] [address]- 2740 Jan, [facility] [place] [facility] [address] [id number] [place] [address]- 1525 Jan, [facility] [place] [facility] [address] [id number] [place] [address]- 7849 Jan, [facility] [place] [facility] [address] [id number] [place] [address]- 4639 Jan, [facility] [place] [facility] [address] [id number] [place] [address]- 2641 Jan, [facility] [place] [facility] [address] [id number] [place] [address]- 1736 Dec, [facility] [place] [facility] [address] [id number] [place] [address] Dec, [facility] [place] [facility] [address] [id number] [place] [address] Dec, [facility] [place] [facility] [address] [id number] [place] [address] Dec, [facility] [place] [facility] [address] [id number] [place] [address] Oct, [facility] [place] [facility] [address] [id number] [place] [address] Sep, [facility] [place] [facility] [address] [id number] [place] [address] Sep, [facility] [place] [facility] [address] [id number] [place] [address] Sep, [facility] [place] [facility] [address] [id number] [place] [address] 13 Sep, 2011 [facility] [place] [facility] [address] [id number] [place] [address] Jun, [facility] [place] [facility] [address] [id number] [place] [address] 28 May, 2011 [facility] [place] [facility] [address] [id number] [place] [address] 14 Apr, 2011 [facility] [place] [facility] [address] [id number] [place] [address] Apr, [facility] [place] [facility] [address] [id number] [place] [address] Apr, [facility] [place] [facility] [address] [id number] [place] [address] Feb, [facility] [place] [facility] [address] [id number] [place] [address] Feb, [facility] [place] [facility] [address] [id number] [place] [address] Jan, [facility] [place] [facility] [address] [id number] [place] [address] Jan, [facility] [place] [facility] [address] [id number] [place] [address] Jan, [facility] [place] [facility] [address] [id number] [place] [address] 31 Feb, 2010 [facility] [place] [facility] [address] [id number] [place] [address] 30 Feb, 2010 [facility] [place] [facility] [address] [id number] [place] [address] 30 Feb, 2010 [facility] [place] [facility] [address] [id number] [place] [address]- [address] 30 Feb, 2010 [facility] [place] [facility] [address] [id number], [place] [address] 27 Feb, 2010 [facility] [address] [id number] [place] [address]- [address] 23 Feb, 2010 [facility] [place] [facility] [address] [id number], [place] [address] 20 Feb, 2010 [facility] [address] [id number] [place] [address] 18 Feb, 2010 [facility] [place] [facility] [address] [id number] [place] [address] 18 Feb, 2010 [facility] [address] [id number] [place] [address], [place] [address]- [address] 06 Feb, 2010 [facility] [address] [id number] [place] [address] Jan, [facility] [address] [facility] [id number], [place] [address] 24 Dec, 2009 [facility] [address] [id number], [place] [address] 14 Nov, 2009 [facility] [address] [facility] [id number], [place] [address] 18 Mar, 2009 [facility] [address] [facility] [id number], [place] [address] Jan, [facility] [address] [id number], [place] [address] 15 Dec, 2008 [facility] [place] [facility] [address] [id number], [place] [address] 15 Dec, 2008 [facility] [place] [facility] [address] [id number], [place] [address] Sep, [facility] [place] [facility] [address] [facility] [id number], [place] [address] 20 Jun, 2008 [facility] [place] [facility] [address] [facility] [id number], [place] [address] Mar, [facility] [place] [facility] [address] [facility] [id number] [place] [address] Jan, IMMUNIZATIONS No Known Immunizations SOCIAL HISTORY Never Assessed REASON FOR VISIT Follow up Appointment PLAN OF CARE Activity Details Pending Test Ultrasound : Thyroid VITAL SIGNS MEDICATIONS Unknown Medications RESULTS No [...]
--- OUTSIDE RECORDS SUMMARY | 2018-03-23 08:55 | XMS REPORT | Continuity of Care Document ---
Author Author [facility] Address Unknown Phone Unavailable Allergies Active Description Code Type Severity Reaction Onset Reported/Identified Relationship to Patient Clinical Status Yes Flonase Drug Allergy N/A N/A 10/13/2008 Yes Flonase Drug Allergy 10/13/2008 Yes lisinopril Drug Allergy 10/13/2008 Yes MRI DYE MRI DYE Severe ANAPHYLAXIS 01/22/2013 Yes Gadolinium-Containing Contrast Media Drug Allergy N/A N/A 01/29/2013 Yes fluticasone [id number] Drug Allergy Unknown RASH 01/30/2017 Medications There [...] Closed Fracture Of Rib(s) Unspecified 02/15/2008 ELLEN MOBILE UI DEVELOPER, DAY S 729.5 Pain In Limb 02/15/2008 ELLEN MOBILE UI DEVELOPER, DAY S 807.00 Closed Fracture Of Rib(s) [...] Closed Fracture Of Rib(s) Unspecified 02/15/2008 ELLEN MOBILE UI DEVELOPER, DAY S 729.5 Pain In Limb 02/15/2008 ELLEN MOBILE UI DEVELOPER, DAY S 807.00 Closed Fracture Of Rib(s) Unspecified 02/15/2008 ELLEN MOBILE UI DEVELOPER, DAY S 729.5 Pain In Limb 02/15/2008 ELLEN MOBILE UI DEVELOPER, DAY S 807.00 Closed Fracture Of Rib(s) Unspecified 02/15/2008 ELLEN MOBILE UI DEVELOPER, DAY S 729.5 Pain In Limb 02/15/2008 ELLEN MOBILE UI DEVELOPER, DAY S 807.00 Closed Fracture Of Rib(s) Unspecified 02/15/2008 ELLEN MOBILE UI DEVELOPER, DAY S 729.5 Pain In Limb 02/15/2008 ELLEN MOBILE UI DEVELOPER, DAY S 807.00 Closed Fracture Of Rib(s) Unspecified 02/15/2008 MIMS DO, ELVIA K 729.5 Pain In Limb 02/15/2008 MIMS DO, ELVIA K 807.00 Closed Fracture Of Rib(s) Unspecified 02/15/2008 MIMS DO, ELVIA K 729.5 Pain In Limb 02/15/2008 MIMS DO, ELVIA K 807.00 Closed Fracture Of Rib(s) Unspecified 02/15/2008 ELLEN MOBILE UI DEVELOPER, DAY S 729.5 Pain In Limb 02/15/2008 ELLEN MOBILE UI DEVELOPER, DAY S 807.00 Closed Fracture Of Rib(s) Unspecified 02/15/2008 KIRBY ALVA MD 729.5 Pain In Limb 02/15/2008 MICHEAL ORTIZ, KIRBY 807.00 Closed Fracture Of Rib(s) Unspecified 02/15/2008 ELLEN MOBILE UI DEVELOPER, DAY S 729.5 Pain In Limb 02/15/2008 ELLEN MOBILE UI DEVELOPER, DAY S 807.00 Closed Fracture Of Rib(s) Unspecified 02/15/2008 ELLEN MOBILE UI DEVELOPER, DAY S 729.5 Pain In Limb 02/15/2008 ELLEN MOBILE UI DEVELOPER, DAY S 807.00 Closed Fracture Of Rib(s) [...] 724.1 Pain In Thoracic Spine 04/15/2008 ELLEN MOBILE UI DEVELOPER, DAY S 401.1 ESSENTIAL HYPERTENSION BENIGN 04/15/2008 ELLEN ADAMS DAY S 724.1 Pain In Thoracic Spine 04/15/2008 ELLEN MOBILE UI DEVELOPER, DAY S 401.1 ESSENTIAL HYPERTENSION BENIGN 04/15/2008 ELLEN MOBILE UI DEVELOPER, DAY S 724.1 Pain In Thoracic Spine 04/15/2008 ELLEN ADAMS DAY S 401.1 ESSENTIAL HYPERTENSION BENIGN 04/15/2008 ELLEN MOBILE UI DEVELOPER, ADY S 724.1 Pain In Thoracic Spine 04/15/2008 ELLEN MOBILE UI DEVELOPER, DAY S 401.1 ESSENTIAL HYPERTENSION BENIGN 04/15/2008 ELLEN MOBILE UI DEVELOPER, DAY S 724.1 Pain In Thoracic Spine 04/15/2008 MIMS DO, ELVIA K 401.1 ESSENTIAL HYPERTENSION BENIGN 04/15/2008 MIMS DO, ELVIA K 724.1 Pain In Thoracic Spine 04/15/2008 MIMS DO, ELVIA K 401.1 ESSENTIAL HYPERTENSION BENIGN 04/15/2008 MIMS DO, ELVIA K 724.1 Pain In Thoracic Spine 04/15/2008 ELLEN MOBILE UI DEVELOPER, DAY S 401.1 ESSENTIAL HYPERTENSION BENIGN 04/15/2008 ELLEN MOBILE UI DEVELOPER, DAY S 724.1 Pain In Thoracic Spine 04/15/2008 MICHEAL ORTIZ, ALI 401.1 ESSENTIAL HYPERTENSION BENIGN 04/15/2008 MICHEAL ORTIZ, ALI 724.1 Pain In Thoracic Spine 04/15/2008 ELLEN MOBILE UI DEVELOPER, DAY S 401.1 ESSENTIAL HYPERTENSION BENIGN 04/15/2008 ELLEN MOBILE UI DEVELOPER, DAY S 724.1 Pain In Thoracic Spine 04/15/2008 ELLEN MOBILE UI DEVELOPER, DAY S 401.1 ESSENTIAL HYPERTENSION BENIGN 04/15/2008 ELLEN MOBILE UI DEVELOPER, DAY S 724.1 Pain In Thoracic Spine [...] S 625.6 Stress Incontinence Female 07/14/2008 ELLEN MOBILE UI DEVELOPER, DAY S 381.81 Dysfunction Of Eustachian Tube 07/14/2008 ELLEN MOBILE UI DEVELOPER, DAY S 625.6 Stress Incontinence Female 07/14/2008 ELLEN MOBILE UI DEVELOPER, DAY S 381.81 Dysfunction Of Eustachian Tube 07/14/2008 ELLEN MOBILE UI DEVELOPER, DAY S 625.6 Stress Incontinence Female 07/14/2008 MIMS DO, ELVIA K 381.81 Dysfunction Of Eustachian Tube 07/14/2008 MIMS DO, ELVIA K 625.6 Stress Incontinence Female 07/14/2008 MIMS DO, ELVIA K 381.81 Dysfunction Of Eustachian Tube 07/14/2008 MIMS DO, ELVIA K 625.6 Stress Incontinence Female 07/14/2008 ELLEN ADAMS DAY S 381.81 Dysfunction Of Eustachian Tube 07/14/2008 ELLEN MOBILE UI DEVELOPER, DAY S 625.6 Stress Incontinence Female 07/14/2008 IKRBY ALVA MD 381.81 Dysfunction Of Eustachian Tube 07/14/2008 KIRBY ALVA MD 625.6 Stress Incontinence Female 07/14/2008 ELLEN MOBILE UI DEVELOPER DAY S 381.81 Dysfunction Of Eustachian Tube 07/14/2008 ELLEN MOBILE UI DEVELOPER, DAY S 625.6 Stress Incontinence Female 07/14/2008 ELLEN MOBILE UI DEVELOPER, DAY S 381.81 Dysfunction Of Eustachian Tube 07/14/2008 ELLEN MOBILE UI DEVELOPER, DAY S 625.6 Stress Incontinence Female 07/14/2008 [...] MD 780.4 Dizziness And Giddiness 04/13/2009 ELLEN ADMAS DAY S 386.10 Peripheral Vertigo 04/13/2009 ELLEN ADAMS DAY S 780.4 Dizziness And Giddiness 04/13/2009 ELLEN ADAMS DAY S 386.10 Peripheral Vertigo 04/13/2009 ELLEN ADAMS DAY S 780.4 Dizziness And Giddiness 04/13/2009 ELLEN ADAMS DAY S 386.10 Peripheral Vertigo 04/13/2009 ELLEN MOBILE UI DEVELOPER, DAY S 780.4 Dizziness And Giddiness 04/13/2009 ELLEN MOBILE UI DEVELOPER, DAY S 386.10 Peripheral Vertigo 04/13/2009 ELLEN MOBILE UI DEVELOPER, DAY S 780.4 Dizziness And Giddiness 04/13/2009 MIMS DO, ELVIA K 386.10 Peripheral Vertigo 04/13/2009 MIMS DO, ELVIA K 780.4 Dizziness And Giddiness 04/13/2009 MIMS DO, ELVIA K 386.10 Peripheral Vertigo 04/13/2009 MIMS DO, ELVIA K 780.4 Dizziness And Giddiness 04/13/2009 ELLEN MOBILE UI DEVELOPER, DAY S 386.10 Peripheral Vertigo 04/13/2009 ELLEN MOBILE UI DEVELOPER, DAY S 780.4 Dizziness And Giddiness 04/13/2009 MICHEAL ORTIZ, ALI 386.10 Peripheral Vertigo 04/13/2009 MICHEAL ORTIZ, ALI 780.4 Dizziness And Giddiness 04/13/2009 ELLEN MOBILE UI DEVELOPER, DAY S 386.10 Peripheral Vertigo 04/13/2009 ELLEN MOBILE UI DEVELOPER, DAY S 780.4 Dizziness And Giddiness 04/13/2009 ELLEN MOBILE UI DEVELOPER, DAY S 386.10 Peripheral Vertigo 04/13/2009 ELLEN MOBILE UI DEVELOPER, DAY S 780.4 Dizziness And Giddiness 04/13/2009 [...] And Biological Substance, Not Elsewhere Classified 06/16/2009 KIRBY ALVA MD 995.20 Unspecified Adverse Effect Of Unspecified [...] 724.2 LUMBAGO/ LOW BACK PAIN 11/26/2009 ELLEN MOBILE UI DEVELOPER, DAY S 724.2 LUMBAGO/ LOW BACK PAIN 11/26/2009 ELLEN MOBILE UI DEVELOPER, DAY S 724.2 LUMBAGO/ LOW BACK PAIN 11/26/2009 ELLEN MOBILE UI DEVELOPER, DAY S 724.2 LUMBAGO/ LOW BACK PAIN 11/26/2009 ELLEN MOBILE UI DEVELOPER, DAY S 724.2 LUMBAGO/ LOW BACK PAIN 11/26/2009 MIMS DO, ELVIA K 724.2 LUMBAGO/ LOW BACK PAIN 11/26/2009 MIMS DO, ELVIA K 724.2 LUMBAGO/ LOW BACK PAIN 11/26/2009 ELLEN MOBILE UI DEVELOPER, DAY S 724.2 LUMBAGO/ LOW BACK PAIN 11/26/2009 MICHEAL ORTIZ, KIRBY 724.2 LUMBAGO/ LOW BACK PAIN 11/26/2009 ELLEN MOBILE UI DEVELOPER, DAY S 724.2 LUMBAGO/ LOW BACK PAIN 11/26/2009 ELLEN MOBILE UI DEVELOPER, DAY S 724.2 LUMBAGO/ LOW BACK PAIN [...] Respiratory Infections Of Unspecified Site 12/08/2009 ELLEN MOBILE UI DEVELOPER, DAY S 465.9 Acute Upper Respiratory Infections Of Unspecified Site 12/08/2009 MIMS DO, ELVIA K 465.9 Acute Upper Respiratory Infections Of Unspecified Site 12/08/2009 ROSENDO BARROW MD 465.9 Acute Upper Respiratory Infections Of Unspecified Site 12/08/2009 MIMS DO, ELVIA K 465.9 Acute Upper Respiratory Infections Of Unspecified Site 12/08/2009 ROSENDO BARROW MD 465.9 Acute Upper Respiratory Infections Of Unspecified Site 12/08/2009 ELLEN MOBILE UI DEVELOPER, DAY S 465.9 Acute Upper Respiratory Infections Of Unspecified Site 12/08/2009 ELLEN MOBILE UI DEVELOPER, DAY S 465.9 Acute Upper Respiratory Infections Of Unspecified Site 12/08/2009 ELLEN MOBILE UI DEVELOPER, DAY S 465.9 Acute Upper Respiratory Infections Of Unspecified Site 12/08/2009 ELLEN MOBILE UI DEVELOPER, DAY S 465.9 Acute Upper Respiratory Infections Of Unspecified Site 12/08/2009 MIMS DO, ELVIA K 465.9 Acute Upper Respiratory Infections Of Unspecified Site 12/08/2009 MIMS DO, ELVIA K 465.9 Acute Upper Respiratory Infections Of Unspecified Site 12/08/2009 ELLEN MOBILE UI DEVELOPER, DAY S 465.9 Acute Upper Respiratory Infections Of Unspecified Site 12/08/2009 KIRBY ALVA MD 465.9 Acute Upper Respiratory Infections Of Unspecified Site 12/08/2009 ELLEN MOBILE UI DEVELOPER, DAY S 465.9 Acute Upper Respiratory Infections Of Unspecified Site 12/08/2009 ELLEN MOBILE UI DEVELOPER, DAY S 465.9 Acute Upper Respiratory Infections [...] MD 461.0 Acute Maxillary Sinusitis 12/17/2009 ELLEN MOBILE UI DEVELOPER, DAY S 461.0 Acute Maxillary Sinusitis 12/17/2009 MIMS DO ELVIA K 461.0 Acute Maxillary Sinusitis 12/17/2009 ROSEDNO BARROW MD 461.0 Acute Maxillary Sinusitis 12/17/2009 MIMS DO ELVIA K 461.0 Acute Maxillary Sinusitis 12/17/2009 ROSENDO BARROW MD 461.0 Acute Maxillary Sinusitis 12/17/2009 ELLEN MOBILE UI DEVELOPER, DAY S 461.0 Acute Maxillary Sinusitis 12/17/2009 ELLEN MOBILE UI DEVELOPER, DAY S 461.0 Acute Maxillary Sinusitis 12/17/2009 ELLEN MOBILE UI DEVELOPER, DAY S 461.0 Acute Maxillary Sinusitis 12/17/2009 ELLEN MOBILE UI DEVELOPER, DAY S 461.0 Acute Maxillary Sinusitis 12/17/2009 MIMS DO ELVIA K 461.0 Acute Maxillary Sinusitis 12/17/2009 MIMS DO, ELVIA K 461.0 Acute Maxillary Sinusitis 12/17/2009 ELLEN MOBILE UI DEVELOPER, DAY S 461.0 Acute Maxillary Sinusitis 12/17/2009 KIRBY ALVA MD 461.0 Acute Maxillary Sinusitis 12/17/2009 ELLEN MOBILE UI DEVELOPER, DAY S 461.0 Acute Maxillary Sinusitis 12/17/2009 ELLEN MOBILE UI DEVELOPER, DAY S 461.0 Acute Maxillary Sinusitis 12/17/2009 [...] HUGHES APRNA S 372.30 Conjunctivitis 03/13/2010 ELLEN MOBILE UI DEVELOPER, DAY S 368.11 Worsening Vision Started Suddenly 03/13/2010 ELLEN MOBILE UI DEVELOPER, DAY S 372.30 Conjunctivitis 03/13/2010 ELLEN MOBILE UI DEVELOPER, DAY S 368.11 Worsening Vision Started Suddenly 03/13/2010 ELLEN MOBILE UI DEVELOPER, DAY S 372.30 Conjunctivitis 03/13/2010 ELLEN MOBILE UI DEVELOPER, DAY S 368.11 Worsening Vision Started Suddenly 03/13/2010 ELLEN MOBILE UI DEVELOPER, DAY S 372.30 Conjunctivitis 03/13/2010 MIMS DO, ELVIA K 368.11 Worsening Vision Started Suddenly 03/13/2010 MIMS DO, ELVIA K 372.30 Conjunctivitis 03/13/2010 MIMS DO, ELVIA K 368.11 Worsening Vision Started Suddenly 03/13/2010 MIMS DO, ELVIA K 372.30 Conjunctivitis 03/13/2010 ELLEN ADAMS DAY S 368.11 Worsening Vision Started Suddenly 03/13/2010 ELLEN ADMAS, DAY S 372.30 Conjunctivitis 03/13/2010 KIRBY ALVA MD 368.11 Worsening Vision Started Suddenly 03/13/2010 KIRBY ALVA MD 372.30 Conjunctivitis 03/13/2010 ELLEN MOBILE UI DEVELOPER, DAY S 368.11 Worsening Vision Started Suddenly 03/13/2010 ELLEN ADAMS DAY S 372.30 Conjunctivitis 03/13/2010 ELLEN ADAMS DAY S 368.11 Worsening Vision Started Suddenly 03/13/2010 ELLEN MOBILE UI DEVELOPER, DAY S 372.30 Conjunctivitis 03/13/2010 HIRAM SCHROEDER [...] 435.9 Unspecified Transient Cerebral Ischemia 03/18/2010 ELLEN MOBILE UI DEVELOPER, DAY S 300.00 Anxiety State Unspecified 03/18/2010 ELLEN MOBILE UI DEVELOPER, DAY S 379.91 Pain In Or Around Eye 03/18/2010 ELLEN MOBILE UI DEVELOPER, DAY S 435.9 Unspecified Transient Cerebral Ischemia 03/18/2010 ELLEN MOBILE UI DEVELOPER, DAY S 300.00 Anxiety State Unspecified 03/18/2010 ELLEN MOBILE UI DEVELOPER, DAY S 379.91 Pain In Or Around Eye 03/18/2010 ELLEN MOBILE UI DEVELOPER, DAY S 435.9 Unspecified Transient Cerebral Ischemia 03/18/2010 ELLEN MOBILE UI DEVELOPER, DAY S 300.00 Anxiety State Unspecified 03/18/2010 ELLEN MOBILE UI DEVELOPER, DAY S 379.91 Pain In Or Around Eye 03/18/2010 ELLEN MOBILE UI DEVELOPER, DAY S 435.9 Unspecified Transient Cerebral Ischemia 03/18/2010 ELLEN MOBILE UI DEVELOPER, DAY S 300.00 Anxiety State Unspecified 03/18/2010 ELLEN MOBILE UI DEVELOPER, DAY S 379.91 Pain In Or Around Eye 03/18/2010 ELLEN MOBILE UI DEVELOPER, DAY S 435.9 Unspecified Transient Cerebral Ischemia [...] 435.9 Unspecified Transient Cerebral Ischemia 03/18/2010 ELLEN MOBILE UI DEVELOPER DAY S 300.00 Anxiety State Unspecified 03/18/2010 ELLEN MOBILE UI DEVELOPER, DAY S 379.91 Pain In Or Around Eye 03/18/2010 ELLEN ADAMS DAY S 435.9 Unspecified Transient Cerebral Ischemia 03/18/2010 KIRBY ALVA MD 300.00 Anxiety State Unspecified 03/18/2010 KIRBY ALVA MD 379.91 Pain In Or Around Eye 03/18/2010 KIRBY ALVA MD 435.9 Unspecified Transient Cerebral Ischemia 03/18/2010 ELLEN MOBILE UI DEVELOPER DAY S 300.00 Anxiety State Unspecified 03/18/2010 ELLEN MOBILE UI DEVELOPER DAY S 379.91 Pain In Or Around Eye 03/18/2010 ELLEN MOBILE UI DEVELOPER DAY S 435.9 Unspecified Transient Cerebral Ischemia 03/18/2010 ELLEN MOBILE UI DEVELOPER, DAY S 300.00 Anxiety State Unspecified 03/18/2010 ELLEN MOBILE UI DEVELOPER, DAY S 379.91 Pain In Or Around [...] S 443.9 PERIPHERAL VASCULAR DISEASE UNSPECIFIED 04/01/2010 MAGNUS HUGHES APRNNDA S 443.9 PERIPHERAL VASCULAR DISEASE UNSPECIFIED 04/01/2010 ELLEN MOBILE UI DEVELOPER, DAY S 443.9 PERIPHERAL VASCULAR DISEASE UNSPECIFIED 04/01/2010 ELLEN ADAMS DAY S 443.9 PERIPHERAL VASCULAR DISEASE UNSPECIFIED 04/01/2010 MIMS DOLUCIOA K 443.9 PERIPHERAL VASCULAR DISEASE UNSPECIFIED 04/01/2010 MIMS DOLUCIOA K 443.9 PERIPHERAL VASCULAR DISEASE UNSPECIFIED 04/01/2010 ELLEN ADAMS DAY S 443.9 PERIPHERAL VASCULAR DISEASE UNSPECIFIED 04/01/2010 KIRBY ALVA MD 443.9 PERIPHERAL VASCULAR DISEASE UNSPECIFIED 04/01/2010 ELLEN MOBILE UI DEVELOPER, DAY S 443.9 PERIPHERAL VASCULAR DISEASE UNSPECIFIED [...] BARROW MD 786.50 Chest Pain 04/07/2010 ELLEN MOBILE UI DEVELOPER, DAY S 786.50 Chest Pain 04/07/2010 MIMS DO, ELVIA K 786.50 Chest Pain 04/07/2010 ROSENDO BARRWO MD 786.50 Chest Pain 04/07/2010 MIMS DO, ELVIA K 786.50 Chest Pain 04/07/2010 ROSENDO BARROW MD 786.50 Chest Pain 04/07/2010 ELLEN MOBILE UI DEVELOPER, DAY S 786.50 Chest Pain 04/07/2010 ELLEN MOBILE UI DEVELOPER, DAY S 786.50 Chest Pain 04/07/2010 ELLEN MOBILE UI DEVELOPER, DAY S 786.50 Chest Pain 04/07/2010 ELLEN MOBILE UI DEVELOPER, DAY S 786.50 Chest Pain 04/07/2010 MIMS DO, ELVIA K 786.50 Chest Pain 04/07/2010 MIMS DO, ELVIA K 786.50 Chest Pain 04/07/2010 ELLEN MOBILE UI DEVELOPER, DAY S 786.50 Chest Pain 04/07/2010 KIRBY ALVA MD 786.50 Chest Pain 04/07/2010 ELLEN MOBILE UI DEVELOPER, DAY S 786.50 Chest Pain 04/07/2010 ELLEN MOBILE UI DEVELOPER, DAY S 786.50 Chest Pain 04/07/2010 HIRAM [...] DAY S 702.0 Actinic Keratosis 05/25/2010 FELICITA UFNES ELVIA K 702.0 Actinic Keratosis 05/25/2010 ROSENDO BARROW MD 702.0 Actinic Keratosis 05/25/2010 MIMS DO ELVIA K 702.0 Actinic Keratosis 05/25/2010 ROSENDO BARROW MD 702.0 Actinic Keratosis 05/25/2010 ELLEN MOBILE UI DEVELOPER, DAY S 702.0 Actinic Keratosis 05/25/2010 ELLEN MOBILE UI DEVELOPER, DAY S 702.0 Actinic Keratosis 05/25/2010 ELLEN MOBILE UI DEVELOPER, DAY S 702.0 Actinic Keratosis 05/25/2010 ELLEN MOBILE UI DEVELOPER, DAY S 702.0 Actinic Keratosis 05/25/2010 FELICITA FUNES ELVIA K 702.0 Actinic Keratosis 05/25/2010 FELICITA FUNES ELVIA K 702.0 Actinic Keratosis 05/25/2010 ELLEN ADAMS, DAY S 702.0 Actinic Keratosis 05/25/2010 KIRBY ALVA MD 702.0 Actinic Keratosis 05/25/2010 ELLEN KEMPN, DAY S 702.0 Actinic Keratosis 05/25/2010 ELLEN MOBILE UI DEVELOPER, DAY S 702.0 Actinic Keratosis 05/25/2010 HIRAM SCHROEDER DDS 702.0 Actinic Keratosis 06/02/2010 MIMS DO ELVIA K 272.4 HYPERLIPIDEMIA 06/02/2010 272.4 HYPERLIPIDEMIA 06/02/2010 MIMS DO, ELVIA K 272.4 HYPERLIPIDEMIA 06/02/2010 272.4 HYPERLIPIDEMIA 06/02/2010 MIMS DO ELVIA K 272.4 HYPERLIPIDEMIA 06/02/2010 MIMS DO ELVIA K 272.4 HYPERLIPIDEMIA 06/02/2010 272.4 HYPERLIPIDEMIA 06/02/2010 272.4 HYPERLIPIDEMIA 06/02/2010 272.4 HYPERLIPIDEMIA 06/02/2010 PUSHPA ORTIZ, ROSENDO 272.4 HYPERLIPIDEMIA 06/02/2010 PUSHPA ORTIZ, ROSENDO 272.4 HYPERLIPIDEMIA 06/02/2010 ELLEN MOBILE UI DEVELOPER, DAY S 272.4 HYPERLIPIDEMIA 06/02/2010 MIMS DO, ELVIA K 272.4 HYPERLIPIDEMIA 06/02/2010 PUSHPA ORTIZ, ROSENDO 272.4 HYPERLIPIDEMIA 06/02/2010 MIMS DO, ELVIA K 272.4 HYPERLIPIDEMIA 06/02/2010 PUSHPA ORTIZ, ROSENDO 272.4 HYPERLIPIDEMIA 06/02/2010 ELLEN MOBILE UI DEVELOPER, DAY S 272.4 HYPERLIPIDEMIA 06/02/2010 ELLEN MOBILE UI DEVELOPER, DAY S 272.4 HYPERLIPIDEMIA 06/02/2010 ELLEN MOBILE UI DEVELOPER, DAY S 272.4 HYPERLIPIDEMIA 06/02/2010 ELLEN MOBILE UI DEVELOPER, DAY S 272.4 HYPERLIPIDEMIA 06/02/2010 MIMS DO, ELVIA K 272.4 HYPERLIPIDEMIA 06/02/2010 MIMS DO, ELVIA K 272.4 HYPERLIPIDEMIA 06/02/2010 ELLEN MOBILE UI DEVELOPER, DAY S 272.4 HYPERLIPIDEMIA 06/02/2010 MICHEAL ORTIZ, KIRBY 272.4 HYPERLIPIDEMIA 06/02/2010 ELLEN MOBILE UI DEVELOPER, DAY S 272.4 HYPERLIPIDEMIA 06/02/2010 ELLEN MOBILE UI DEVELOPER, DAY S 272.4 HYPERLIPIDEMIA 06/02/2010 HIRAM SCHROEDER [...] ORTIZ, ROSENDO V05.4 Varicella, Chickenpox 08/09/2010 ELLEN MOBILE UI DEVELOPER, DAY S V05.4 Varicella, Chickenpox 08/09/2010 ELLEN MOBILE UI DEVELOPER, DAY S V05.4 Varicella, Chickenpox 08/09/2010 ELLEN MOBILE UI DEVELOPER, DAY S V05.4 Varicella, Chickenpox 08/09/2010 ELLEN ADAMS, DAY S V05.4 Varicella, Chickenpox 08/09/2010 ELVIA MIMS DO V05.4 Varicella, Chickenpox 08/09/2010 MIMS ELVIA FUNES K V05.4 Varicella, Chickenpox 08/09/2010 ELLEN ADAMS, DAY S V05.4 Varicella, Chickenpox 08/09/2010 MICHEAL ORTIZ, KIRBY V05.4 Varicella, Chickenpox 08/09/2010 ELLEN ADAMS, DAY S V05.4 Varicella, Chickenpox 08/09/2010 ELLEN MOBILE UI DEVELOPER, DAY S V05.4 Varicella, Chickenpox 08/09/2010 HIRAM [...] Hypertrophic And Atrophic Conditions Of Skin 02/02/2011 RSOENDO BARROW MD V04.81 Flu Dx (medicare Only) [...] V04.81 Flu Dx (medicare Only) 02/02/2011 ELLEN MOBILE UI DEVELOPER, DAY S 701.9 Unspecified Hypertrophic And Atrophic Conditions Of Skin 02/02/2011 ELLEN MOBILE UI DEVELOPER, DAY S V04.81 Flu Dx (medicare Only) 02/02/2011 ELLEN MOBILE UI DEVELOPER, DAY S 701.9 Unspecified Hypertrophic And Atrophic Conditions Of Skin 02/02/2011 ELLEN MOBILE UI DEVELOPER, DAY S V04.81 Flu Dx (medicare Only) 02/02/2011 ELLEN MOBILE UI DEVELOPER, DAY S 701.9 Unspecified Hypertrophic And Atrophic Conditions Of Skin 02/02/2011 ELLEN MOBILE UI DEVELOPER, DAY S V04.81 Flu Dx (medicare Only) 02/02/2011 ELLEN MOBILE UI DEVELOPER, DAY S 701.9 Unspecified Hypertrophic And Atrophic Conditions Of Skin 02/02/2011 ELLEN MOBILE UI DEVELOPER, DAY S V04.81 Flu Dx (medicare Only) 02/02/2011 MIMS DO, ELVIA K 701.9 Unspecified Hypertrophic And Atrophic Conditions Of Skin 02/02/2011 MIMS DO, ELVIA K V04.81 Flu Dx (medicare Only) 02/02/2011 MIMS DO, ELVIA K 701.9 Unspecified Hypertrophic And Atrophic Conditions Of Skin 02/02/2011 MIMS DO, ELVIA K V04.81 Flu Dx (medicare Only) 02/02/2011 ELLEN MOBILE UI DEVELOPER, DAY S 701.9 Unspecified Hypertrophic And Atrophic Conditions Of Skin 02/02/2011 ELLEN KEMPN, DAY S V04.81 Flu Dx (medicare Only) 02/02/2011 KIRBY ALVA MD 701.9 Unspecified Hypertrophic And Atrophic Conditions Of Skin 02/02/2011 KIRBY ALVA MD V04.81 Flu Dx (medicare Only) 02/02/2011 ELLEN MOBILE UI DEVELOPER, DAY S 701.9 Unspecified Hypertrophic And Atrophic Conditions Of Skin 02/02/2011 ELLEN MOBILE UI DEVELOPER, DAY S V04.81 Flu Dx (medicare Only) 02/02/2011 ELLEN MOBILE UI DEVELOPER, DAY S 701.9 Unspecified Hypertrophic And Atrophic Conditions Of Skin 02/02/2011 ELLEN MOBILE UI DEVELOPER, DAY S V04.81 Flu Dx (medicare Only) 02/02/2011 SCHROEDERDAVID GALINDO, HIRAM 701.9 Unspecified Hypertrophic And Atrophic Conditions Of Skin 02/02/2011 ELDA GALINDO, HIRAM V04.81 Flu Dx (medicare Only) 02/21/2011 MIMS DO ELVIA K V72.31 Stippler Exam, Routine 02/21/2011 V72.31 Stippler Exam, Routine 02/21/2011 MIMS DO ELVIA K V72.31 Stippler Exam, Routine 02/21/2011 V72.31 Stippler Exam, Routine 02/21/2011 MIMS DO, ELVIA K V72.31 Stippler Exam, Routine 02/21/2011 MIMS DO, ELVIA K V72.31 Stippler Exam, Routine 02/21/2011 V72.31 Stippler Exam, Routine 02/21/2011 V72.31 Stippler Exam, Routine 02/21/2011 V72.31 Stippler Exam, Routine 02/21/2011 ROSENDO BARROW MD V72.31 Stippler Exam, Routine 02/21/2011 ROSENDO BARROW MD V72.31 Stippler Exam, Routine 02/21/2011 ELLEN ADAMS DAY S V72.31 Stippler Exam, Routine 02/21/2011 MIMS DO ELVIA K V72.31 Stippler Exam, Routine 02/21/2011 ROSENDO BARROW MD V72.31 Stippler Exam, Routine 02/21/2011 MIMS DO, ELVIA K V72.31 Stippler Exam, Routine 02/21/2011 ROSENDO BARROW MD V72.31 Stippler Exam, Routine 02/21/2011 ELLEN MOBILE UI DEVELOPER, DAY S V72.31 Stippler Exam, Routine 02/21/2011 ELLEN MOBILE UI DEVELOPER, DAY S V72.31 Stippler Exam, Routine 02/21/2011 ELLEN MOBILE UI DEVELOPER, DAY S V72.31 Stippler Exam, Routine 02/21/2011 ELLEN MOBILE UI DEVELOPER, DAY S V72.31 Stippler Exam, Routine 02/21/2011 MIMS DO, ELVIA K V72.31 Stippler Exam, Routine 02/21/2011 MIMS DO, ELVIA K V72.31 Stippler Exam, Routine 02/21/2011 ELLEN ADAMS, DAY S V72.31 Stippler Exam, Routine 02/21/2011 MICHEAL ORTIZ, KIRBY V72.31 Stippler Exam, Routine 02/21/2011 ELLEN MOBILE UI DEVELOPER, DAY S V72.31 Stippler Exam, Routine 02/21/2011 ELLEN MOBILE UI DEVELOPER, DAY S V72.31 Stippler Exam, Routine 02/21/2011 ELDA GALINDOAMIRAHW V72.31 Stippler Exam, Routine 02/23/2011 FELICITA FUNES ELVIA K [...] Acute But Ill-defined Cerebrovascular Disease 02/23/2011 ELLEN MOBILE UI DEVELOPER, DAY S 436 Acute But Ill-defined Cerebrovascular Disease 02/23/2011 ELLEN MOBILE UI DEVELOPER, DAY S 436 Acute But Ill-defined Cerebrovascular Disease 02/23/2011 ELLEN MOBILE UI DEVELOPER, DAY S 436 Acute But Ill-defined Cerebrovascular Disease 02/23/2011 ELLEN MOBILE UI DEVELOPER, DAY S 436 Acute But Ill-defined Cerebrovascular Disease 02/23/2011 FELICITA FUNES ELVIA K 436 Acute But Ill-defined Cerebrovascular Disease 02/23/2011 FELICITA FUNES ELVIA K 436 Acute But Ill-defined Cerebrovascular Disease 02/23/2011 ELLEN MOBILE UI DEVELOPER, DAY S 436 Acute But Ill-defined Cerebrovascular Disease 02/23/2011 MICHEAL ORTIZ, ALI 436 Acute But Ill-defined Cerebrovascular Disease 02/23/2011 ELLEN MOBILE UI DEVELOPER, DAY S 436 Acute But Ill-defined Cerebrovascular Disease 02/23/2011 ELLEN MOBILE UI DEVELOPER, DAY S 436 Acute But Ill-defined Cerebrovascular Disease 02/23/2011 ELDA GALINDO, HIRAM 436 Acute But Ill-defined Cerebrovascular Disease [...] BARROW MD 466.0 Acute Bronchitis 03/07/2011 ELLEN MOBILE UI DEVELOPER, DAY S 466.0 Acute Bronchitis 03/07/2011 MIMS DO, ELVIA K 466.0 Acute Bronchitis 03/07/2011 ROSENDO BARROW MD 466.0 Acute Bronchitis 03/07/2011 MIMS DO, ELVIA K 466.0 Acute Bronchitis 03/07/2011 ROSENDO BARROW MD 466.0 Acute Bronchitis 03/07/2011 ELLEN MOBILE UI DEVELOPER, DAY S 466.0 Acute Bronchitis 03/07/2011 ELLEN MOBILE UI DEVELOPER, DAY S 466.0 Acute Bronchitis 03/07/2011 ELLEN MOBILE UI DEVELOPER, DAY S 466.0 Acute Bronchitis 03/07/2011 ELLEN MOBILE UI DEVELOPER, DAY S 466.0 Acute Bronchitis 03/07/2011 MIMS DO, ELVIA K 466.0 Acute Bronchitis 03/07/2011 MIMS DO, ELVIA K 466.0 Acute Bronchitis 03/07/2011 ELLEN MOBILE UI DEVELOPER, DAY S 466.0 Acute Bronchitis 03/07/2011 KIRBY ALVA MD 466.0 Acute Bronchitis 03/07/2011 ELLEN MOBILE UI DEVELOPER, DAY S 466.0 Acute Bronchitis 03/07/2011 DAY [...] OTHER AND UNSPECIFIED DIGESTIVE ORGANS 05/05/2011 ELLEN MOBILE UI DEVELOPER, DYA S 235.5 NEOPLASM OF UNCERTAIN BEHAVIOR OF [...] ROSENDO BARROW MD 733.00 OSTEOPOROSIS UNSPECIFIED 07/05/2011 ROSENOD BARROW MD 733.00 OSTEOPOROSIS UNSPECIFIED 07/05/2011 DAY HUGHES APRN S 733.00 OSTEOPOROSIS UNSPECIFIED 07/05/2011 FELICITA FUNES ELVIA K 733.00 OSTEOPOROSIS UNSPECIFIED 07/05/2011 ROSENDO BARROW MD 733.00 OSTEOPOROSIS UNSPECIFIED 07/05/2011 MIMS DO ELVIA K 733.00 OSTEOPOROSIS UNSPECIFIED 07/05/2011 ROSENDO BARROW MD 733.00 OSTEOPOROSIS UNSPECIFIED 07/05/2011 DAY HUGHES APRN S 733.00 OSTEOPOROSIS UNSPECIFIED 07/05/2011 ELLEN ADAMS, DAY S 733.00 OSTEOPOROSIS UNSPECIFIED 07/05/2011 ELLEN MOBILE UI DEVELOPER, DAY S 733.00 OSTEOPOROSIS UNSPECIFIED 07/05/2011 ELLEN ADAMS, DAY S 733.00 OSTEOPOROSIS UNSPECIFIED 07/05/2011 FELICITA DO ELVIA K 733.00 OSTEOPOROSIS UNSPECIFIED 07/05/2011 MIMS DO, ELVIA K 733.00 OSTEOPOROSIS UNSPECIFIED 07/05/2011 ELLEN ADAMS, DAY S 733.00 OSTEOPOROSIS UNSPECIFIED 07/05/2011 KIRBY ALVA MD 733.00 OSTEOPOROSIS UNSPECIFIED 07/05/2011 ELLEN MOBILE UI DEVELOPER, DAY S 733.00 OSTEOPOROSIS UNSPECIFIED 07/05/2011 ELLEN [...] S 700 CORNS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 INFRC W 04/25/2017 MICHEAL ORTIZ FACC, ALI FACP CCDS Ot Z87.19 PERSONAL HISTORY OF OTHER DISEASES OF 05/02/2017 MICHEAL ORTIZ FACC, ALI FACP CCDS Ot E78.4 OTHER HYPERLIPIDEMIA 05/02/2017 MICHEAL ORTIZ FACC, ALI FACP CCDS Ot I65.23 OCCLUSION AND STENOSIS OF BILATERAL [place] 05/02/2017 MICHEAL ORTIZ FACC, ALI FACP CCDS Ot I73.9 PERIPHERAL VASCULAR DISEASE, UNSPECIFIED 05/02/2017 MICHEAL ORTIZ FACC, ALI FACP CCDS Ot Z72.0 TOBACCO USE 05/02/2017 MICHEAL ORTIZ FACC, ALI FACP CCDS Ot Z86.718 PERSONAL HISTORY OF OTHER VENOUS THROMBO 05/02/2017 MICHEAL ORTIZ FACC, KIRBY FACP CCDS Ot Z86.73 PRSNL HX OF TIA (TIA), AND CEREB INFRC W 05/02/2017 MICHEAL ORTIZ FACC, KIRBY FACP CCDS Ot Z87.19 PERSONAL HISTORY OF OTHER DISEASES OF TH 05/15/2017 MICHEAL ORTIZ FACC, KIRBY FACP CCDS Ot E78.4 OTHER HYPERLIPIDEMIA 06/19/2017 MICHEAL ORTIZ FACC, KIRBY FACP CCDS Ot E78.4 OTHER HYPERLIPIDEMIA 06/21/2017 SHERWIN UNDERWOOD HYDRAULIC BILLET MAKER Ot D50.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 06/26/2017 SHERWIN UNDERWOOD HYDRAULIC BILLET MAKER Ot D50.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 07/14/2017 BELENMASHERWIN HYDRAULIC BILLET MAKER Ot D50.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 12/22/2017 FLORENCIO HERNÁNDEZ DO Ot F17.210 NICOTINE DEPENDENCE, CIGARETTES, UNCOMPL 12/22/2017 FLORENCIO HERNÁNDEZ DO Ot J44.9 CHRONIC OBSTRUCTIVE PULMONARY DISEASE, U 12/22/2017 FLORENCIO HERNÁNDEZ DO Ot J84.9 INTERSTITIAL PULMONARY DISEASE, UNSPECIF 12/22/2017 FLORENCIO HERNÁNDEZ DO Ot Z79.899 OTHER CONCRETE CRAFTSMAN (CURRENT) DRUG THERAPY 12/26/2017 FLORENCIO HERNÁNDEZ DO Ot F17.210 NICOTINE DEPENDENCE, CIGARETTES, UNCOMPL 12/26/2017 FLORENCIO HERNÁNDEZ DO Ot J44.9 CHRONIC OBSTRUCTIVE PULMONARY DISEASE, U 12/26/2017 FLORENCIO HERNÁNDEZ DO Ot J84.9 INTERSTITIAL PULMONARY DISEASE, UNSPECIF 12/26/2017 FLORENCIO HERNÁNDEZ DO Ot Z79.899 OTHER CONCRETE CRAFTSMAN (CURRENT) DRUG THERAPY 12/27/2017 JOON CHAPIN APRN Ot J44.9 CHRONIC OBSTRUCTIVE PULMONARY DISEASE, U 12/27/2017 JOON CHAPIN APRN Ot R06.00 DYSPNEA, UNSPECIFIED 12/27/2017 JOON CHAPIN APRN Ot R91.8 OTHER NONSPECIFIC ABNORMAL FINDING OF [place] 12/27/2017 JOON CHAPIN APRN Ot Z72.0 TOBACCO USE 01/05/2018 FLORENCIO HERNÁNDEZ DO Ot J44.9 CHRONIC OBSTRUCTIVE PULMONARY DISEASE, U 01/05/2018 FLORENCIO HERNÁNDEZ DO Ot R91.8 OTHER NONSPECIFIC ABNORMAL FINDING OF [place] 01/05/2018 FLORENCIO HERNÁNDEZ DO Ot R94.8 ABNORMAL RESULTS OF FUNCTION STUDIES OF 01/05/2018 FLORENCIO HERNÁNDEZ DO Ot Z72.0 TOBACCO USE 01/22/2018 JOON CHAPIN APRN Ot J44.9 CHRONIC OBSTRUCTIVE PULMONARY DISEASE, U 01/22/2018 JOON CHAPIN MOBILE UI DEVELOPER Ot R06.00 DYSPNEA, UNSPECIFIED 01/22/2018 JOON CHAPIN MOBILE UI DEVELOPER Ot R91.8 OTHER NONSPECIFIC ABNORMAL FINDING OF [place] 01/22/2018 JOON CHAPIN APRN Ot Z72.0 TOBACCO USE 02/12/2018 DAY HUGHES HYDRAULIC BILLET MAKER Ot E04.2 NONTOXIC MULTINODULAR GOITER 03/06/2018 DAY HUGHES HYDRAULIC BILLET MAKER Ot E04.2 NONTOXIC MULTINODULAR GOITER 03/13/2018 MICHEAL ORTIZ FACC, ALI FACP CCDS Ot E78.5 HYPERLIPIDEMIA, UNSPECIFIED 03/13/2018 MICHEAL ORTIZ FACC, ALI FACP CCDS Ot I10 ESSENTIAL (PRIMARY) HYPERTENSION 03/13/2018 MICHEAL ORTIZ FACC, ALI FACP CCDS Ot I25.10 ATHSCL HEART DISEASE OF [place] CORONARY 03/13/2018 MICHEAL ORTIZ FACC, ALI FACP CCDS Ot I77.89 OTHER SPECIFIED DISORDERS OF ARTERIES AN 03/13/2018 MICHEAL ORTIZ FACC, ALI FACP CCDS Ot Z72.0 TOBACCO USE Procedures Code Description [place] [address] ROUTINE VENIPUNCTURE 02/22/2012 66252 CBC 02/22/2012 32058 LIPID PANEL 02/22/2012 65977 CMP 02/22/2012 6094124 GFR CALC (RESULT ONLY) 02/22/2012 84494 CRP HS (CARDIO) 02/23/2012 89538 T4 02/23/2012 66829 TSH 02/23/2012 OrthopBrown Masterson 03/19/2012 OrthopedHumberto Ortiz 04/14/2012 97654 ROUTINE VENIPUNCTURE 07/27/2012 48555 CMP 07/27/2012 59434 LIPID PANEL 07/27/2012 3420161 GFR CALC (RESULT ONLY) 07/27/2012 37857 NUCLEAR STRESS TESTING 09/10/2012 34760 OXIMETRY 09/10/2012 91120 ROUTINE VENIPUNCTURE 11/14/2012 49522 LIVER PANEL (LFT) 11/14/2012 84451 ROUTINE VENIPUNCTURE 12/25/2012 71369 LIVER PANEL (LFT) 12/25/2012 75773 ROUTINE VENIPUNCTURE 01/29/2013 49438 LIVER PANEL (LFT) 01/29/[address] ABDOMEN W/ CONTRAST 02/01/2013 06660 LESION DESTRUCTION 1-14 ( BENIGN) 02/11/2013 20111 PULMONARY FUNCTION TEST (IN- HOUSE) 02/11/2013 09403 US RENAL ULTRASOUND, COMP 02/13/2013 Cardiolog Micheal, Ali 02/27/2013 34099 OXIMETRY 02/27/2013 01101 PULMONARY FUNCTION TEST (IN- HOUSE) 03/01/2013 80653 RESPIRATORY FLOW VOLUME LOOP 03/01/2013 G0437 TOBACCO-USE ESTATE MANAGER>10MIN 03/01/2013 11560 ROUTINE VENIPUNCTURE 04/26/2013 4337266 GFR CALC (RESULT ONLY) 04/26/2013 87609 CMP 04/26/2013 39131 LIPID PANEL 04/26/2013 75920 MAMMOGRAM, SCREENING 08/26/2013 41602 ROUTINE VENIPUNCTURE 08/28/2013 23251 US CAROTID DOPPLER 08/28/2013 28027 OXIMETRY 08/28/2013 5916039 GFR CALC (RESULT ONLY) 08/28/2013 50959 CMP 08/28/2013 93305 LIPID PANEL 08/28/2013 70453 WART DESTRUCT 1-14 (CRYO) 03/12/2014 39983 ROUTINE VENIPUNCTURE 03/28/2014 6544687 GFR CALC (RESULT ONLY) 03/28/2014 50041 CMP 03/28/2014 94809 LIPID PANEL 03/28/2014 41488 BONE DENSITY, DEXA 06/10/2014 76138 US CAROTID DOPPLER 06/10/2014 56204 OXIMETRY 06/10/2014 Results Test Result Range Hepatitis [...] microscopy 25-50 NRG Bacterial urine culture - 03/26/17 15:14 Bacterial urine culture [facility] Whole blood hemoglobin and hematocrit [...] NRG Blood erythrocyte morphology finding identification NORMAL NR Comprehensive metabolic panel - 07/26/16 22:55 Serum [...] NRG Serum or plasma glucose measurement (mass/volume) 147 [...] panel - 07/26/16 22:55 ABO+Rh group AP NRG Transfusion band number [id number] NRG Blood group antibody screen NEGATIVE NRG Whole blood hemoglobin and hematocrit panel [...] Estab. Immature Grans (Abs) 0.0 x10E3/uL 0.0-0.1 Sputum Gram stain - 12/22/17 07:57 Sputum Gram stain REPORTED 12-22-2017, 1705. NRG Bacteria identification in bronchial specimen by aerobe culture - 12/22/17 07: 57 QUANTITY OF GROWTH . NRG Bacteria identification in bronchial specimen by aerobe culture USUAL ORAL NRG FTX;REPORTABLE >10,000 CFU/ML NRG Mycobacterium species detection by organism specific culture - 12/22/17 07:57 C FUNGUS SPUTUM FLUID TISSUE - 12/22/17 07:57 FUNGUS REPORT NO FUNGUS GROWTH OBSERVED NRG CBC - 02/12/18 09:57 WHITE BLOOD CELL COUNT 9.3 Thousand/uL 3.8-10.8 RED BLOOD CELL COUNT 4.99 Million/uL 3.80-5.10 HEMOGLOBIN 14.8 g/dL 11.7-15.5 HEMATOCRIT 45.7 % 35.0-45.0 MCV 91.6 fL 80.0-100.0 MCH 29.7 pg 27.0-33.0 MCHC 32.4 g/dL 32.0-36.0 RDW 14.6 % 11.0-15.0 PLATELET COUNT 275 Thousand/uL 140-400 MPV 10.7 fL 7.5-12.5 ABSOLUTE NEUTROPHILS 6659 cells/uL 9579-3838 ABSOLUTE LYMPHOCYTES 1758 cells/uL 850-3900 ABSOLUTE MONOCYTES 586 cells/uL 200-950 ABSOLUTE EOSINOPHILS 214 cells/uL 15-500 ABSOLUTE BASOPHILS 84 cells/uL 0-200 NEUTROPHILS 71.6 % NRG LYMPHOCYTES 18.9 % NRG MONOCYTES 6.3 % NRG EOSINOPHILS 2.3 % NRG BASOPHILS 0.9 % NRG Encounters ACCT No. Visit Date/Time Discharge Status Pt. Type Provider Facility Loc./Unit Complaint [id number] 07/10/2014 12:36:00 07/10/2014 23:59:59 CLS Outpatient HIRAM SCHROEDER DDS [id number] 06/10/2014 09:39:00 06/10/2014 23:59:59 CLS Outpatient DAY HUGHES APRN [id number] 04/09/2014 09:14:00 04/09/2014 23:59:59 CLS Outpatient ELLEN MOBILE UI DEVELOPERDAY Singh [id number] 03/28/2014 09:04:00 03/28/2014 23:59:59 CLS Outpatient KIRBY ALVA MD [id number] 03/12/2014 12:43:00 03/12/2014 23:59:59 CLS Outpatient ELLEN MOBILE UI DEVELOPERDAY Singh [id number] 08/28/2013 08:29:00 08/28/2013 23:59:59 CLS Outpatient ELVIA MIMS DO [id number] 08/28/2013 08:29:00 08/28/2013 23:59:59 CLS Outpatient ELVIA MIMS DO [id number] 08/26/2013 08:38:00 08/26/2013 23:59:59 CLS Outpatient ELLEN MOBILE UI DEVELOPERDAY Singh [id number] 06/10/2013 00:00:00 06/10/2013 23:59:59 CLS Outpatient ELLEN MOBILE UI DEVELOPERMAGNUSDAY Singh [id number] 05/20/2013 09:55:00 05/20/2013 23:59:59 CLS Outpatient ELLEN MOBILE UI DEVELOPERDAY Singh [id number] 04/26/2013 08:27:00 04/26/2013 23:59:59 CLS Outpatient ELLEN BRYANDAY Singh [id number] 03/01/2013 08:48:00 03/01/2013 23:59:59 CLS Outpatient ROSENDO BARROW MD [id number] 03/01/2013 08:48:00 03/01/2013 23:59:59 CLS Outpatient ROSENDO BARROW MD [id number] 02/27/2013 08:35:00 02/27/2013 23:59:59 CLS Outpatient ELVIA MIMS DO [id number] 02/27/2013 08:35:00 02/27/2013 23:59:59 CLS Outpatient ELVIA MIMS DO [id number] 02/11/2013 12:12:00 02/11/2013 23:59:59 CLS Outpatient DAY HUGHES APRN [id number] 01/29/2013 10:02:00 01/29/2013 23:59:59 CLS Outpatient ROSENDO BARROW MD [id number] 12/25/2012 10:43:00 12/25/2012 23:59:59 CLS Outpatient ROSENDO BARROW MD [id number] 05/31/2012 11:49:00 05/31/2012 23:59:59 CLS Outpatient ELVIA MIMS DO [id number] 04/19/2012 12:03:00 04/19/2012 23:59:59 CLS Outpatient ELVIA MIMS DO [id number] 04/12/2012 13:09:00 04/12/2012 23:59:59 CLS Outpatient [id number] 03/08/2012 12:59:00 03/08/2012 23:59:59 CLS Outpatient ELVIA MIMS DO [id number] 02/24/2012 12:50:00 02/24/2012 23:59:59 CLS Outpatient [id number] 01/19/2012 10:05:00 01/19/2012 23:59:59 CLS Outpatient ELVIA MIMS DO [id number] 11/14/2012 13:11:00 Document Registration [id number] 09/05/2012 09:27:00 Document Registration [id number] 07/30/2012 08:21:00 Document Registration [id number] 03/18/2016 13:06:00 Document Registration [id number] 08/26/2016 08:06:00 Document Registration [id number] 03/01/2017 14:00:00 03/01/2017 23:59:59 CLS Outpatient DAY HUGHES APRN [facility] [id number] 02/12/2018 08:40:00 Document Registration [id number] 12/26/2016 16:40:00 Document Registration [id number] 08/03/2016 08:07:00 Document Registration [id number] 09/08/2016 08:06:00 Document Registration [id number] 12/27/2016 08:07:00 Document Registration [id number] 03/16/2018 09:51:00 03/16/2018 23:59:59 CLS Outpatient CHRISTY ORTIZ, HANSEL [place] [facility] PREOP THYROID NODULES [id number] 03/09/2018 07:08:00 03/09/2018 23:59:59 CLS Outpatient MICHEAL ORTIZ FACC, KIRBY SERRA CCDS [facility] CARD CAROTID ARTERIAL DISEASE,HTN,CAD [id number] 02/01/2018 14:41:00 02/01/2018 23:59:59 CLS Outpatient DAY HUGHES HYDRAULIC BILLET MAKER [facility] RAD THYROID NODULE [id number] 01/08/2018 15:30:00 01/08/2018 23:59:59 CLS Preadmit JOON CHAPIN APRN [facility] RAD COPD,DYSPNEA [id number] 12/25/2017 10:28:00 12/25/2017 23:59:59 CLS Outpatient JOON CHAPIN MOBILE UI DEVELOPER [facility] RT R91.8 LUNG MASS [id number] 12/22/2017 06:40:00 12/22/2017 09:20:00 DIS Outpatient FLORENCIO HERNÁNDEZ DO [facility] ENDO LUNG MASS/TOBACCO USER/ COPD/DYSPNEA [id number] 12/19/2017 08:52:00 12/19/2017 23:59:59 CLS Outpatient FLORENCIO HERNÁNDEZ DO [facility] RAD LUNG MASS [id number] 06/20/2017 15:38:00 06/20/2017 23:59:59 CLS Outpatient SHERWIN UNDERWOOD HYDRAULIC BILLET MAKER [facility] LAB D50.0 [id number] 05/13/2017 09:18:00 05/13/2017 23:59:59 CLS Outpatient KIRBY ALVA MD, FACC, FACP CCDS [facility] LAB E78.4 [id number] 04/11/2017 13:12:00 04/11/2017 23:59:59 CLS Outpatient KIRBY ALVA MD, FACC, FACP CCDS [facility] RAD I73.9 CLAUDICATION [id number] 03/31/2017 09:25:00 03/31/2017 23:59:59 CLS Outpatient KIRBY ALVA MD, FACC, FACP CCDS [facility] LAB I65.23 Z87.19 [id number] 01/30/2017 10:40:00 01/30/2017 14:30:00 DIS Outpatient HANSEL HARRISON MD [facility] ENDO EPIGASTRIC PAIN [id number] 01/23/2017 05:51:00 01/23/2017 15:06:00 DIS Outpatient CHRISTY ORTIZ, HANSEL [place] [facility] PREOP EGD [id number] 01/06/2017 08:28:00 01/06/2017 23:59:59 CLS Outpatient DAY HUGHES [facility] RAD RUQ ABD PAIN [id number] 01/06/2017 22:46:00 01/06/2017 23:52:00 DIS Emergency JOANNE PERCY FUNES [facility] ER FALL/L FOOT INJ [id number] 12/29/2016 10:26:00 12/29/2016 23:59:59 CLS Preadmit DAY HUGHES [facility] CARD RUQ ABD PAIN [id number] 10/10/2016 09:09:00 10/10/2016 23:59:59 CLS Outpatient BAISHERWIN MACK L HYDRAULIC BILLET MAKER [facility] RAD INCREASED LEG SWELLING [id number] 08/31/2016 08:58:00 08/31/2016 23:59:59 CLS Outpatient YASMINE SHERWIN L HYDRAULIC BILLET MAKER [facility] RAD M79.89 LIMB SWELLING [id number] 07/26/2016 22:44:00 07/28/2016 10:48:00 DIS Inpatient JAMEEL TOMPKINS DO [facility] 4TH HEMATOCHEZIA,(LOW GI BLEEDING) [id number] 07/26/2016 12:08:00 07/26/2016 23:59:59 CLS Outpatient KENYETTA REA DO [facility] LAB K62.5 [id number] 07/20/2016 07:33:00 07/20/2016 10:15:00 DIS Outpatient KENYETTA REA DO [facility] ENDO RECTAL BLEEDING [id number] 07/19/2016 09:00:00 07/19/2016 09:49:00 DIS Outpatient KENYETTA REA DO [facility] PREOP BLACK STOOLS, CONSTIPATION [id number] 07/04/2016 08:18:00 07/06/2016 13:44:00 DIS Outpatient DAY HUGHES [facility] REHAB R SIDED BACK PAIN [id number] 06/19/2016 13:43:00 06/19/2016 15:54:00 DIS Emergency PERCY RUBIO DO [facility] ER BACK PAIN [id number] 06/14/2016 13:55:00 06/14/2016 23:59:59 CLS Outpatient NICK BETTS [facility] RAD CHRONIC RT SIDED LOW BACK PAIN W/ RT SIDED SCIATIC [id number] 06/30/2015 12:37:00 06/30/2015 15:18:00 DIS Emergency KANDICE ORTIZ, WILLIE Santos [facility] ER CHEST/BACK/UPPER RIGHT LEG PAIN [id number] 09/22/2014 08:40:00 09/22/2014 23:59:59 CLS Outpatient MICHEAL ORTIZ FACC, KIRBY SERRA CCDS [facility] RAD CAROTID ARTERIAL DISEASE [id number] 08/04/2014 09:44:00 08/04/2014 23:59:59 CLS Outpatient SHERWIN UNDERWOOD [facility] RAD PSEUDOANEURYSM POST CATH RIGHT GROIN [id number] 07/31/2014 14:34:00 07/31/2014 19:30:00 DIS Outpatient ARTURO ORTIZ, JESSE Marquez [facility] CATH PSEUDOANEURYSM [id number] 07/30/2014 17:03:00 07/30/2014 21:44:00 DIS Emergency KANDICE ORTIZ, WILLIE Santos [facility] ER SWELLING CATH SITE [id number] 07/28/2014 02:30:00 07/29/2014 17:10:00 DIS Inpatient ELVIA MIMS DO Poo[place] [facility] CSD HYPOTENSION,FLOWERS,CHEST PAIN ,LEUKOCYTOSIS [id number] 06/26/2014 08:32:00 06/26/2014 23:59:59 CLS Outpatient DAY HUGHES [facility] RAD OSTEOPOROSIS [id number] 09/24/2013 08:41:00 09/24/2013 23:59:59 CLS Outpatient DAY HUGHES [facility] RAD ROUTINE [id number] 02/12/2013 12:47:00 02/12/2013 23:59:59 CLS Outpatient DAY HUGHES [facility] RAD LEFT KIDNEY. CYST ON LOWER POLE [id number] 02/01/2013 06:48:00 02/01/2013 23:59:59 CLS Outpatient DAY HUGHES [facility] RAD HX PANCREATIC NODULE [id number] 01/21/2013 15:54:00 01/22/2013 17:45:00 DIS Inpatient DELEMR ORTIZ, NEGRO [place] [facility] 4TH TIA [id number] 09/10/2012 09:26:00 09/10/2012 23:59:59 CLS Outpatient HUMBERTO SMITH MD [facility] LAB MED USE [id number] 09/07/2012 07:38:00 09/07/2012 23:59:59 CLS Outpatient MICHEAL ORTIZ FACC, KIRBY FACElie CCDS [facility] RAD DYSPNEA [id number] 03/23/2018 08:00:00 PEN Preadmit CHRISTY ORTIZ, HANSEL P[place] [facility] SDC THYROID NODULES [id number] 04/23/2012 12:59:00 Document Registration [id number] 06/20/2011 08:19:00 Document Registration [id number] 03/17/2011 11:16:00 Document Registration [id number] 03/14/2011 11:49:00 Document Registration [id number] 02/28/2011 09:44:00 Document Registration [id number] 09/22/2014 08:41:12 ACT Document Registration [id number] 09/25/2016 17:06:00 Document Registration [id number] 08/16/2016 08:06:00 Document Registration
[2018-03-23 09:00] VITALS: BP 130/76
[2018-03-23] MEDS ORDERED: ceFAZolin INJECTION 1,000 MG in NS (IVPB) 50 ML IV ONE (09:15)
[2018-03-23] MEDS: LACTATED RINGERS 1,000 ML IV PRN ×2 (09:15→15:50)
[2018-03-23] MEDS ORDERED: CATHETER FLUSH 10 ML SYR IV PRN (09:30)
--- NOTE | 2018-03-23 10:28 | Progress Note-Pre Operative ---
Pre-Operative Progress Note H&P Reviewed The H&P was reviewed, patient examined and no changes noted. Date Seen by Provider: Feb 20, 2018 Time Seen by Provider: 16:20 Date H&P Reviewed: Mar 23, 2018 Time H&P Reviewed: 10:28 Pre-Operative Diagnosis: Bilateral thyroid nodules HANSEL HARRISON MD Mar 23, 2018 10:28
[2018-03-23] MEDS ORDERED: SEVOFLURANE (ULTANE) 15 ML INHAL SOLN ONE (11:57)
[2018-03-23] MEDS ORDERED: proPOfol 200 MG/20 ML (DIPRIVAN) VIAL IV ONE (11:57)
[2018-03-23] MEDS ORDERED: MIDAZOLAM 2 MG/2 ML (VERSED) VIAL ONE (11:57)
[2018-03-23] MEDS ORDERED: fentaNYL INJECTION 100 MCG/2 ML AMP ONE ×2 (11:57→14:50)
[2018-03-23] MEDS ORDERED: LIDOCAINE PF 2% 5 ML (XYLOCAINE) VIAL ONE (11:57)
[2018-03-23] MEDS ORDERED: SUCCINYLCHOLINE INJ 100 MG/5 ML SYR ONE (11:57)
[2018-03-23] MEDS ORDERED: BUP/EPI 0.5% 1:200,000 (SENSORCAINE) 30 ML VIAL ONE (12:31)
[2018-03-23] MEDS ORDERED: THROMBIN SPRAY KIT 5,000 UNIT VIAL ONE (12:31)
--- NOTE | 2018-03-23 15:22 | Operative Report ---
Operative Report Date of Procedure/Surgery Mar 23, 2018 Surgeon (s) HANSEL HARRISON MD Office Professional (s): N/A Post-Operative Diagnosis Same Procedure Performed Total thyroidectomy Intraoperative neuro monitoring Description of Procedure Anesthesia Type: General Estimated blood loss (mL): 50 mL Specimen(s) collected/removed Both lobes of thyroid Description of the Procedure Indication for the procedure: This lady was found to have a hypermetabolic left thyroid nodule on a PET scan performed during the evaluation of a left lung nodule. Further examination using ultrasound confirmed bilateral thyroid nodules. Having discussed the role of FNA, it was felt reasonable to proceed with total thyroidectomy to establish a definitive diagnosis. Should carcinoma be found, the potential for radioactive ablation and additional surgery was highlighted. 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 Increased risks of oozing, bleeding and postoperative hematoma were highlighted. Description of the procedure: She was placed supine on the operative table and general anesthesia induced. Ancef was administered intravenously as prophylaxis against wound infection. Sequential compression devices were placed around her legs, to minimize the risk of venous thrombosis. Her neck and upper chest were prepared and draped in the usual sterile manner. Preemptive analgesia was established using 0.5 percent Marcaine with epinephrine. A 3.5 cm transverse incision was made along the skin crease of the neck and platysma incised transversely. Flaps were raised superiorly to the level of the thyroid cartilage and inferiorly to the sternal notch. Cervical fascia was incised vertically and the strap muscles were retracted laterally. I began the dissection on the left side. The lobe was retracted medially, displaying a distinct middle thyroid vein. It was controlled using Harmonic scalpel. Superior thyroid artery was then controlled between 0 silk sutures, reinforced with a Ligaclip. Recurrent laryngeal nerve was found in its conventional position and protected by constant visual inspection and intermittent nerve stimulation technique. Both parathyroid glands were identified and preserved, along with their blood supply. The isthmus was then divided the Harmonic scalpel. Branches of the inferior thyroid artery were controlled using ligaclips and Harmonic scalpel. Left lobe was sent for frozen section analysis. The pathologist reported follicular changes and therefore, formal evaluation by conventional staining technique was felt to be appropriate. On the right side, a similar dissection was performed. Recurrent laryngeal nerve was found in its conventional position and protected by standard visualization and intermittent nerve stimulation technique. I was able to identify one parathyroid gland, possibly superior in nature and preserved and gland with its blood supply. We had the anesthesiologist conduct Valsalva maneuver, looking for venous bleeding. A few areas were encountered around the trachea and controlled using ligaclips, protecting the recurrent laryngeal nerve. Gelfoam soaked in thrombin solution was placed along the tracheoesophageal groove, to optimize hemostasis. Neck was then flexed, in preparation for closure. Cervical fascia was approximated using 3-0 Vicryl. Platysma was closed using same material and skin using 4-0 Vicryl, in a subcuticular fashion. In view of aspirin therapy, a 10 Chinese Hao-Cooper drain was left along the ventricular space, being secured using a 2-0 silk suture. She tolerated the procedure well, was extubated in the operating room and taken to the recovery room in a stable condition. Findings of the Procedure See op report Allergies and Home Medications Allergies Coded Allergies: fluticasone (Verified Allergy, Unknown, RASH, 03/21/18) Home Medications Acetaminophen with Codeine 1 Each Tablet, 1 EACH PO Q4H PRN for PAIN-MODERATE, ( Reported) Aspirin 81 Mg Tab.chew, 81 MG PO DAILY, (Reported) Clopidogrel Bisulfate 75 Mg Tablet, 75 MG PO DAILY, (Reported) L.acidoph & Paracasei,B.lactis 1 Each Capsule, 1 EACH PO HS, (Reported) Lisinopril 10 Mg Tablet, 10 MG PO HS, (Reported) Pantoprazole Sodium 40 Mg Tablet.dr, 40 MG PO DAILY Prescribed by: HANSEL HARRISON on 01/30/17 1325 Potassium Gluconate 99 Mg Tablet, 99 MG PO DAILY, (Reported) Primidone 250 Mg Tablet, 250 MG PO HS, (Reported) Propranolol HCl 20 Mg Tablet, 20 MG PO HS, (Reported) Simvastatin 40 Mg Tablet, 40 MG PO HS, (Reported) Patient Home Medication List Home Medication List Reviewed: Yes HANSEL HARRISON MD Mar 23, 2018 15:22
[2018-03-23] MEDS ORDERED: fentaNYL INJECTION 100 MCG/2 ML AMP IVP PRN (15:30)
[2018-03-23] MEDS ORDERED: HYDROcodone/APAP 7.5MG-325 MG/15 ML (LORTAB) UDC PO PRN (15:30)
[2018-03-23] MEDS ORDERED: HYDR473S50 PO (15:35)
[2018-03-23] MEDS ORDERED: LEVO88TA54 PO (15:35)
--- NOTE | 2018-03-23 15:36 | Discharge Inst-Simple/Standard ---
Discharge Inst-Standard Discharge Medications New, Converted or Re-Newed RX: RX on Chart Patient Instructions/Follow Up Plan of Care/Instructions/FU: Dressings off in a.m. Follow-up in 3 weeks. Activity as Tolerated: Yes Discharge Diet: No Restrictions HANSEL HARRISON MD Mar 23, 2018 15:36
[2018-03-23] MEDS ORDERED: HYDROmorphone 2 MG/ML VIAL (DILAUDID) IV ONE (15:45)
[2018-03-23] MEDS ORDERED: ONDANSETRON 4 MG/2 ML (SDV) Z0FRAN IVP PRN (15:45)
[2018-03-23] MEDS ORDERED: morphine INJ 10 MG/ML 1ML (SYR OR VIAL) IVP ONE (15:45)
[2018-03-23] MEDS ORDERED: meTOprolol 5 MG/5 ML (LOPRESSOR) VIAL IV PRN (16:15)
[2018-03-23] MEDS ORDERED: meTOprolol 5 MG/5 ML (LOPRESSOR) VIAL ONE (16:23)
[2018-03-23 16:55] VITALS: BP 157/89
--- NOTE | 2018-03-23 16:55 | NUR ---
YAMIL RAJAN admitted to room 408-1, with an admitting diagnosis of s/p thyroidectomy, on [place] [facility] [place] accompanied by staff and family.SATINDERCARRIE introduced to surroundings, call light, bed controls, phone, TV, temperature control, lights, meal times, smoking policy, visitor policy, side rail policy, bathrooms and showers. Patient Rights given to patient in the handbook. YAMIL RAJAN verbalizes understanding that [facility] is not responsible for the loss or damage to any personal effects or valuables that are kept in the patients posession during their hospitalization. The Patient's Care Plans were discussed with the patient as well as Discharge Planning. YAMIL RAJAN verbalizes understanding of Interdisciplinary Patient Education. Patient and/or family were informed about the Rapid Response Team and its purpose.
[2018-03-23] MEDS ORDERED: meTOprolol 5 MG/5 ML (LOPRESSOR) VIAL IV ONE (17:15)
[2018-03-23] MEDS: LACTATED RINGERS 1,000 ML IV SCH (17:17)
[2018-03-23] MEDS ORDERED: PATIENT MAY USE OWN MEDS, ALL MC SCH (17:30)
--- NOTE | 2018-03-23 19:03 | NUR ---
Pt c/o nausea at this time it has only been 2 hours since last admin of zofran. Called Dr. Nguyen to report. states to go ahead and give 4mg IV zofran now. Will carry out orders and continue to monitor.
[2018-03-23] MEDS: ONDANSETRON 4 MG/2 ML (SDV) Z0FRAN IVP PRN (19:04)
[2018-03-23 20:00] VITALS: BP 135/81
[2018-03-23] MEDS ORDERED: SIMvastatin 40 MG (ZOCOR) TAB PO SCH (21:00)
[2018-03-23] MEDS ORDERED: PROPRANOLOL 20 MG (INDERAL) TABLET PO SCH (21:00)
[2018-03-23] MEDS ORDERED: lisINopril 10 MG (PRINIVIL) TABLET PO SCH (21:00)
[2018-03-23] MEDS: PANTOPRAZOLE 40 MG (PROTONIX) VIAL IV SCH (21:54)
[2018-03-23] MEDS: HYDROcodone/APAP 5 MG/325 MG (LORTAB) TAB PO PRN (21:55)
[2018-03-24] MEDS: ONDANSETRON 4 MG/2 ML (SDV) Z0FRAN IVP PRN (00:40)
--- NOTE | 2018-03-24 00:40 | NUR ---
0040-PT C/O NAUSEA-PRN ZOFRAN GIVEN 0120-PT EATING A FEW BITES OF ORANGE JELLO-DENIES NAUSEA AT THIS TIME
[2018-03-24 00:41] VITALS: BP 124/78
[2018-03-24] MEDS: LACTATED RINGERS 1,000 ML IV SCH ×2 (01:34→01:54)
[2018-03-24 04:00] VITALS: BP 115/78
[2018-03-24] MEDS ORDERED: LEVOTHYROXINE 88 MCG (LEVOTHORID) TAB PO NR (06:00)
--- NOTE | 2018-03-24 06:11 | NUR ---
pt educated about the purpose of the levothyroxine & following a consistent schedule of this medication pt verbalized understanding & stated back to this RN education provided this rn asked pt about nausea & pain pt denies pain & nausea at this time
[2018-03-24 06:28] LABS: BUN/CREATININE RATIO 14; CALCIUM 8.7 MG/DL (8.5-10.1); CARBON DIOXIDE 22 MMOL/L (21-32); CHLORIDE 104 MMOL/L (98-107); CREATININE SERUM 0.71 MG/DL (0.60-1.30); GFR ESTIMATED > 60; GLUCOSE 109 MG/DL (70-105); POTASSIUM 4.4 MMOL/L (3.6-5.0); SODIUM 139 MMOL/L (135-145)
--- NOTE | 2018-03-24 06:32 | NUR ---
DR. HARRISON CALLED THIS RN TO CHECK ON STATUS OF PT NEW ORDERS RECEIVED
[2018-03-24 07:49] VITALS: BP 115/71
[2018-03-24] MEDS ORDERED: ASPIRIN 81 MG CHEW (CHILDREN'S ASA) PO SCH (09:00)
[2018-03-24] MEDS ORDERED: NON-FORMULARY MEDICATION 1 EA EA (Potassium Gluconate (Potassium) 99 MG) PO SCH (09:00)
--- NOTE | 2018-03-24 09:22 | Progress Note-Standard ---
Standard Progress Note Progress Notes/Assess & Plan Date Seen by a Provider: Mar 24, 2018 Time Seen by a Provider: 08:35 Progress/Assessment & Plan uneventful postoperative night. Minimal output from the drain. No hematoma. Vocal cord function intact. Calcium 8.7. Could be discharged home. Finding irregularity of the mucosa over the vocal cord by the anesthesiologist disclosed the patient with recommendations for a formal ENT evaluation at a later date. Final Diagnosis bilateral thyroid nodules HANSEL HARRISON MD Mar 24, 2018 09:22
[2018-03-24] MEDS: PANTOPRAZOLE 40 MG (PROTONIX) VIAL IV SCH (10:08)
[2018-03-24] MEDS: HYDROcodone/APAP 5 MG/325 MG (LORTAB) TAB PO PRN (11:54)
--- NOTE | 2018-03-24 13:07 | Anesthesia-General Post-Op ---
General Patient Condition Mental Status/LOC: Same as Preop Cardiovascular: Satisfactory Nausea/Vomiting: Absent Respiratory: Satisfactory Pain: Controlled Complications: Absent Post Op Complications Complications Patient complains of hoarseness in her voice. Explain to that it could be form the surgical procedure itself or from the intubation. Follow Up Care/Instructions Patient Instructions Told patient as she followed up the Dr. Nguyen, that if he believes that we need to evaluate the hoarseness as she gets further post-op to have him call us and we would be glad to follow up. Anesthesia/Patient Condition Patient Condition Patient is doing well, stable vital signs, no apparent adverse anesthesia problems. No complications reported per nursing. SUMAN RAYMOND CRNA Mar 24, 2018 13:06
== END 2018-03-24 13:00 | disposition home or self-care (01) ==
LOC: SDC 08:35 → 4TH 16:55 → SDC 03-24 13:00
PROVIDERS: ATTEND Surgery
DX: C73 Malignant neoplasm of thyroid gland (principal); I10 Essential (primary) hypertension; I25.10 Atherosclerotic heart disease of native coronary artery without angina pectoris; I73.9 Peripheral vascular disease, unspecified; I65.22 Occlusion and stenosis of left carotid artery; F17.210 Nicotine dependence, cigarettes, uncomplicated; E78.00 Pure hypercholesterolemia, unspecified; K59.09 Other constipation; Z86.73 Personal history of transient ischemic attack (TIA), and cerebral infarction without residual deficits; Z79.82 Long term (current) use of aspirin; Z79.899 Other long term (current) drug therapy
CPT/HCPCS: 36415; 80048; 87081; 94664

== ENCOUNTER 2018-04-25 13:10 | Outpatient (RCR) | payer MEDICARE | END 2018-07-02 | disposition home or self-care (01) | LOC: ONC 13:10 | PROVIDERS: ATTEND Radiology Radiation Oncology | DX: C73 Malignant neoplasm of thyroid gland (principal); I10 Essential (primary) hypertension; I25.10 Atherosclerotic heart disease of native coronary artery without angina pectoris; F17.210 Nicotine dependence, cigarettes, uncomplicated; Z86.73 Personal history of transient ischemic attack (TIA), and cerebral infarction without residual deficits; Z79.82 Long term (current) use of aspirin; Z79.899 Other long term (current) drug therapy | CPT/HCPCS: 36415; 84432; 84443; 86800; 99204 ==

== ENCOUNTER → 2018-04-25 | Outpatient (CLI) | payer MEDICARE ==
[~2018-04-25] MED LIST changes: +HYDR473S50 PO; +LEVO88TA54 PO
== END ==
LOC: CARD 13:22
PROVIDERS: ATTEND Radiology Radiation Oncology
DX: C73 Malignant neoplasm of thyroid gland (principal)
CPT/HCPCS: 79005

== ENCOUNTER → 2018-05-03 | Outpatient (CLI) | payer MEDICARE ==
--- NOTE | 2018-05-03 16:58 | Diagnostic Imaging Report ---
INDICATION: Thyroid carcinoma. TECHNIQUE: The patient was a administered 49.9 mCi of iodine-131 orally . Whole body imaging was performed one week later. FINDINGS: There is activity identified at the thyroid bed. No other activity is identified to suggest metastatic disease. Impression: There is residual activity identified at the thyroid bed consistent with residual thyroid tissue/tumor. There are no findings to suggest metastatic disease. Dictated by: Dictated on workstation # [id number]
== END ==
LOC: CARD 12:39
PROVIDERS: ATTEND Radiology Radiation Oncology
DX: C73 Malignant neoplasm of thyroid gland (principal)
CPT/HCPCS: 78018

== ENCOUNTER → 2018-06-26 | Outpatient (CLI) | payer MEDICARE ==
--- NOTE | 2018-06-26 16:46 | Diagnostic Imaging Report ---
PROCEDURE: CT chest without contrast. TECHNIQUE: Multiple contiguous axial images were obtained through the chest without the use of intravenous contrast. Auto Exposure Controls were utilized during the CT exam to meet ALARA standards for radiation dose reduction. INDICATION: History of thyroid carcinoma, COPD, shortness of breath, lung mass. CORRELATION STUDY: CT chest 07/28/2014, portions PET/CT 12/19/2017. FINDINGS: Evaluation of the mediastinal structures with noncontrast imaging demonstrates no definitive pathologically enlarged mediastinal lymph nodes. Heart size upper limits of normal. No pericardial effusion. Thoracic aortic contour unremarkable. Gastroesophageal junction unremarkable. Multiple surgical clips noted within the base of the neck at the level of the thyroid bed. Some distortion of soft tissues is present. Mass in the posterior left upper lobe persists measuring approximately 12 x 10 mm, this is relatively stable from measurements at time of PET/CT. However, this is noted to have increased from prior study of 2014. Remaining lung mehta otherwise relatively clear. No consolidating infiltrate. Moderate compression deformity at T11 with marked compression fracture T7 with nearly vertebra plana. Additionally, there is diffuse sclerosis T4 and T5 vertebral bodies with only mild loss of height. IMPRESSION: 1. Left upper lobe pulmonary nodule generally stable from measurements at time of PET/CT examination. However, this has increased from prior study of 2014. Would recommend additional periodic followup imaging assessment for at least a two-year timeframe to demonstrate continued longer-term stability. 2. Surgical change at the level of the thyroid bed and soft tissue of the neck. 3. Multiple compression fractures of the thoracic spine as well as diffusely sclerotic vertebral bodies. Age and significance of these findings is indeterminate. Correlation for any symptoms. If further assessment is desired, MRI, preferably with contrast, may be of additional benefit. Dictated by: Dictated on workstation # [id number]
== END ==
LOC: RAD 12:09
PROVIDERS: ATTEND Nurse Practitioner Family
DX: J44.9 Chronic obstructive pulmonary disease, unspecified (principal); R91.8 Other nonspecific abnormal finding of lung field; S22.000A Wedge compression fracture of unspecified thoracic vertebra, initial encounter for closed fracture; Z72.0 Tobacco use; Z85.850 Personal history of malignant neoplasm of thyroid; Z98.890 Other specified postprocedural states
CPT/HCPCS: 71250

== ENCOUNTER → 2018-06-28 | Outpatient (CLI) | payer MEDICARE ==
[2018-06-26 12:57] LABS: BUN/CREATININE RATIO 14; CALCIUM 9.6 MG/DL (8.5-10.1); CARBON DIOXIDE 23 MMOL/L (21-32); CHLORIDE 106 MMOL/L (98-107); CREATININE SERUM 0.73 MG/DL (0.60-1.30); GFR ESTIMATED > 60; GLUCOSE 75 MG/DL (70-105); POTASSIUM 4.2 MMOL/L (3.6-5.0); SODIUM 141 MMOL/L (135-145)
[~2018-06-28] MED LIST changes: +CATHETER FLUSH 10 ML SYR IV PRN; +HOLD METFORMIN - RECEIVED CONTRAST 20 ML VIAL IV SCH; +IOHEXOL 350 MG/ML 100 ML (OMNIPAQUE 350) VIAL IV ONE
--- NOTE | 2018-06-28 16:41 | Diagnostic Imaging Report ---
PROCEDURE: CT angiography of the head and CT angiography of the neck with and without contrast. TECHNIQUE: Contiguous noncontrast images were obtained from the skull base through the vertex. After intravenous contrast administration, helical CT angiography of the neck was performed. Source data was reformatted into multiple MIP projections. Delayed post contrast acquisition was also obtained. Auto Exposure Controls were utilized during the CT exam to meet ALARA standards for radiation dose reduction. INDICATION: Carotid arterial disease. Precontrast portion through the brain demonstrate ventricles and sulci to be within normal limits. No sulcal effacement, midline shift or hemorrhage is detected. Cisterns are patent. Delayed postcontrast imaging through the brain is without evidence of an abnormal enhancing lesion. There is a three-vessel branching pattern to the aortic arch. The origins of the great vessels are patent. Right common carotid artery does show a large amount of calcified plaque at the bifurcation but no high-grade stenosis is seen. The right internal carotid artery is widely patent. There is some calcified plaque at the carotid siphon. There is normal opacification of the right middle cervical artery without evidence of thromboembolism. Right anterior cerebral artery as well as left anterior cerebral arteries are patent. The left common carotid artery does become mildly narrowed distally. There is a large amount of calcified plaque at the carotid bifurcation on the left. The left internal carotid artery is occluded at its origin. No flow is identified within the left internal carotid artery. There appears to be crossflow into the left middle cerebral artery which is patent. The left anterior cerebral artery is patent. There is a left posterior communicating artery which supplies the left [employer]. Right [employer] is patent. The basilar artery appears to be patent. The vertebral arteries are codominant and appear to be widely patent. No stenosis is seen. IMPRESSION: 1. 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 There is bilateral middle, anterior and posterior cerebral artery flow via the right carotid system. Right carotid system does show moderate calcified plaque at the bifurcation but no high-grade stenosis is detected. Dictated by: Dictated on workstation # [id number]
== END ==
LOC: RAD 06-26 12:11
PROVIDERS: ATTEND Nurse Practitioner Family
DX: I65.23 Occlusion and stenosis of bilateral carotid arteries (principal)
CPT/HCPCS: 36415; 70496; 70498; 80048

== ENCOUNTER → 2019-01-11 | Outpatient (CLI) | payer MEDICARE ==
[~2019-01-11] MED LIST changes: -CATHETER FLUSH 10 ML SYR IV PRN; -HOLD METFORMIN - RECEIVED CONTRAST 20 ML VIAL IV SCH; -IOHEXOL 350 MG/ML 100 ML (OMNIPAQUE 350) VIAL IV ONE
--- NOTE | 2019-01-11 11:57 | Diagnostic Imaging Report ---
PROCEDURE: CT chest without contrast. TECHNIQUE: Multiple contiguous axial images were obtained through the chest without the use of intravenous contrast. Auto Exposure Controls were utilized during the CT exam to meet ALARA standards for radiation dose reduction. INDICATION: Lung mass. COMPARISON: June 26, 2018, PET/CT dated December 19, 2017, and CT dated July 28, 2014. FINDINGS: Postsurgical changes are again identified within the lower neck with multiple surgical clips present. This appears similar to the prior examination without abnormal soft tissue mass lesion within the [id number]. No significant adenopathy within the chest. Scattered vascular calcifications without aneurysmal dilatation of the thoracic aorta. The heart is within normal limits in size. No pericardial effusion. No pleural effusion. No pneumothorax. A round circumscribed mildly lobulated nodule is again identified within the left upper lobe. This appears minimally more prominent than the prior examination when it measured 1.2 x 1.0 cm, now currently measuring 1.3 x 1.3 cm. Additionally, this has increased in size since 2015 when it measured 0.5 cm in maximal dimension. The lungs otherwise appear clear. The airway is patent. 0.8 cm hyperdensity is noted within the posterior aspect of the superior pole of the left kidney. This is not significantly changed in size since 2015, suggesting this relates to a proteinaceous cyst. The visualized upper abdomen is otherwise unremarkable. Multilevel vertebral body compression deformities are again identified and stable. Stable sclerotic appearance of the T4 and T5 vertebral bodies, appearing similar to the prior exam. No acute osseous abnormality. IMPRESSION: Previously noted left upper lobe pulmonary nodule has minimally increased since the prior examination. This is also increased in size when compared to 2015. Given continual gradual change, CT guided biopsy is recommended for further evaluation as underlying low-grade malignancy should be considered. Multiple chronic thoracic vertebral body compression deformities. Additional stable findings as above. Report was called to Lubna Cho by loraine at 11:56 am. Dictated by: Dictated on workstation # [id number]
== END ==
LOC: RAD 08:52
PROVIDERS: ATTEND Nurse Practitioner Family
DX: J44.9 Chronic obstructive pulmonary disease, unspecified (principal); M43.8X4 Other specified deforming dorsopathies, thoracic region; I70.0 Atherosclerosis of aorta; N28.89 Other specified disorders of kidney and ureter; R91.8 Other nonspecific abnormal finding of lung field; Z72.0 Tobacco use; Z98.890 Other specified postprocedural states
CPT/HCPCS: 71250

== ENCOUNTER 2019-02-11 07:07 | Outpatient (CLI) | payer MEDICARE ==
[2019-02-11] VITALS (21 sets, daily range): BP systolic 86–147; BP diastolic 42–83
[~2019-02-11] VITALS: Ht 146 cm; Wt 67.3 kg
[2019-02-11 07:50] LABS: HEMOGLOBIN 13.8 G/DL (11.5-16.0); MEAN PLATELET VOLUME 10.2 FL (7.4-10.4); RED CELL DISTRIBUTION WIDTH 16.4 % (10.0-14.5); WHITE BLOOD COUNT 8.7 10^3/uL (4.3-11.0)
[2019-02-11] MEDS ORDERED: CLOP75TA69 PO (07:55)
[2019-02-11 08:04] LABS: PROTHROMBIN TIME PATIENT 13.4 SEC (12.2-14.7)
[2019-02-11] MEDS ORDERED: NS IV 1000 ML 1,000 ML IV STA (08:23)
[2019-02-11] MEDS ORDERED: fentaNYL INJECTION 100 MCG/2 ML AMP IVP ONE (08:30)
[2019-02-11] MEDS ORDERED: MIDAZOLAM 2 MG/2 ML (VERSED) VIAL IVP ONE (08:30)
[2019-02-11] MEDS ORDERED: LIDOCAINE 1% INJ 20 ML 20 ML VIAL INJ ONE (08:30)
--- NOTE | 2019-02-11 10:25 | NUR ---
TO AMB SURG FROM RADIOLOGY PER CART. QUITE DROWSY, AWAKENS TO VOICE, C/O NAUSEA, QUICKLY BACK TO SLEEP. LYING ON LEFT SIDE, DSG D/I TO PROCEDURE SITE LEFT LATERAL CHEST. ON O2 AT 4L PER NC WITH SAO2 94%. BED LOW, LOCKED, RAILS UP X2. CALL LIGHT TO PT AND DAUGHTER AT SIDE.
--- NOTE | 2019-02-11 10:41 | NUR ---
LYING QUIETLY ON LEFT SIDE. SAO2 93% WITH O2 AT 4L PER NC.
--- NOTE | 2019-02-11 10:44 | Diagnostic Imaging Report ---
INDICATION: Left lung mass. Patient presents for CT-guided biopsy. DETAILS OF PROCEDURE: Patient was brought to the CT suite, placed on the table in prone position. Axial imaging was performed to evaluate appropriate entry site. Left chest was then prepped and draped in usual sterile fashion. Small amount of 1% lidocaine was utilized for local anesthesia. Study was performed utilizing conscious sedation with radiology nursing in constant patient's monitoring. The patient was administered a total of 100 mcg of fentanyl intravenously and 2 mg of Versed intravenously. Total procedure time is 27 minutes. A 20-gauge Temno coaxial needle was advanced, placed with tip along the margin of the nodule in the left upper lobe posteriorly. The procedure was technically difficult due to small size of the lesion and maneuvering around the adjacent ribs. Two core biopsies were obtained. Patient immediately started coughing after the second pass, therefore needle was removed during the injection of a blood patch. Patient did experience a small amount of hemoptysis and some desaturation. Oxygen mask was placed and saturation returned to normal. Follow-up images does show airspace infiltrate in left upper lobe consistent with some pulmonary hemorrhage. No pneumothorax is seen. Patient was placed on her left side. IMPRESSION: CT-guided biopsy of a small nodule in the left upper lobe, as described utilizing conscious sedation. Pathology results are currently pending. Dictated by: Dictated on workstation # [id number]
[2019-02-11] MEDS ORDERED: HYDROcodone/APAP 5 MG/325 MG (LORTAB) TAB PO PRN (10:45)
[2019-02-11] MEDS ORDERED: ONDANSETRON 4 MG/2 ML (SDV) Z0FRAN IV PRN (10:45)
--- NOTE | 2019-02-11 13:05 | Diagnostic Imaging Report ---
INDICATION: Post lung biopsy. TIME OF EXAM: 12:02 PM Correlation made with prior chest from 12/22/2017. Minimal infiltrate left midlung is noted consistent with small amount of hemorrhage from recent biopsy. No pneumothorax is detected. Right lung is clear. IMPRESSION: Minimal procedural hemorrhage in the left midlung. No pneumothorax is detected. Dictated by: Dictated on workstation # [id number]
--- NOTE | 2019-02-11 13:20 | NUR ---
ALERT, HAS HAD LUNCH, AND O2 DECREASED OVER PAST SEVERAL HOURS WITH SAO2 MAINTAINED 98-100% AT 0.5 TO 1 L PER NC. O2 DC'D.
--- NOTE | 2019-02-11 13:55 | NUR ---
RESTING QUIETLY IN BED, EYES CLOSED. SAO2 DROPPING TO 88-90 ON ROOM AIR WHEN ASLEEP. RISES QUICKLY TO 94-96% ON ROOM AIR WHEN AWAKE. O2 RESTARTED AT 1L PER NC.
--- NOTE | 2019-02-11 14:15 | NUR ---
SAO2 97% ON 1L O2 PER NC.
--- NOTE | 2019-02-11 14:20 | NUR ---
O2 DC'D. HAS BEEN UP TO BR SEVERAL TIMES, GAIT STEADY. RESPIRATIONS UNLABORED, DENIES COMPLAINTS. DSG REMAINS D/I TO LEFT LATERAL UPPER CHEST PROCEDURE SITE.
--- NOTE | 2019-02-11 14:32 | Pre-Op Note & Conscious Sedat ---
Pre-Operative Progress Note H&P Reviewed The H&P was reviewed, patient examined and no changes noted. Date H&P Reviewed: Feb 11, 2019 Time H&P Reviewed: 09:00 Pre-Op Diagnosis: Lung nodule Conscious Sedation Pre-Proced Time 09:00 ASA Score 2 For ASA 3 and 4: Consider anesthesia and medical clearance. Also, for patients with a history of failed moderate sedation consider anesthesia. Airway Lungs Heart ASA score ASA 1: a normal healthy patient ASA 2: a patient with a mild systemic disease (mid diabetes, controlled hypertension, obesity ASA 3: a patient with a severe systemic disease that limits activity (angina, COPD, prior Myocardial infarction) ASA 4: a patient with an incapacitating disease that is a constant threat to life (CHF, renal failure) ASA 5: a moribund patient not expected to survive 24 hrs. (ruptured aneurysm) ASA 6: a declared brain- patient whose organs are being harvested. For emergent operations, add the letter E after the classification Mallampati Classification Grade 2 Sedation Plan Analgesia, Amnesia, Plan communicated to team members, Discussed options with patient/fam, Discussed risks with patient/fam The patient is an appropriate candidate to undergo the planned procedure, sedation, and anesthesia. The patient immediately re-assessed prior to indication. ASHANTI MORGAN MD Feb 11, 2019 14:31 POS
--- NOTE | 2019-02-11 14:45 | NUR ---
MAINTAINING SAO2 AT 94-96% ON ROOM AIR. CONTACTED RAYMUNDO RN, RADIOLOGY TO VERIFY OK WITH DR MORGAN TO PROCEED WITH DISMISSAL. CONTACTED DR HERNÁNDEZ INSTRUCTED FOR INSTRUCTIONS ON WHEN PT IS TO RESTART PLAVIX. DR HERNÁNDEZ STATED PT IS TO HOLD PLAVIX TODAY AND TOMORROW, 02/11 AND 02/12, AND RESTART PLAVIX ON Monday02/13/19. PT INSTRUCTIONS DISCUSSED WITH PT AND PT'S DAUGHTER.
--- NOTE | 2019-02-11 15:15 | NUR ---
CONTINUES TO MAINTAIN SAO2 94-96% RANGE ON ROOM AIR. DISMISSED PER OK FROM DR MORGAN.
== END 2019-02-11 15:15 | disposition home or self-care (01) ==
LOC: SDC 07:07
PROVIDERS: ATTEND Nurse Practitioner Family
DX: R91.8 Other nonspecific abnormal finding of lung field (principal); R94.2 Abnormal results of pulmonary function studies; R06.00 Dyspnea, unspecified
CPT/HCPCS: 36415; 71045; 77012; 85027; 85610; 85730; 99156; 99157

== ENCOUNTER 2019-08-06 07:44 | Day surgery (SDC) | payer MEDICARE ==
[~2019-08-06] VITALS: Ht 147 cm; Wt 67.2 kg
[2019-08-06] VITALS (9 sets, daily range): BP systolic 128–171; BP diastolic 75–101
[~2019-08-06 07:44] MED LIST changes: +CLOP75TA69 PO; +SIMV40TA25 PO
--- OUTSIDE RECORDS SUMMARY | 2019-08-06 07:50 | XMS REPORT ---
Author Author Lavern Polo Doctor Organization [facility] Address Unknown Phone Unavailable Care Team Providers Care Private Household Worker Name Role Phone Migration, Doctor Unavailable Unavailable PROBLEMS Type Condition ICD9-CM Code FYC53-CS Code Onset Dates Condition S tatus SNOMED Code Problem Hyperlipemia E78.5 Active 0419386 4 Problem Cataracts, bilateral H26.9 Active 18468135 Problem 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 6520 18590 Problem CVA (cerebral vascular accident) I63.9 Active 957534711 Problem Peripheral vascular disease, unspecified I73.9 Active 043919767 Problem Iron deficiency anemia due to chronic blood loss D 50.0 Active 833604589 Problem Diverticulitis of intestine without perforation or abscess without bleeding, unspecified part of intestinal tract K57.92 Active 227062059 Problem Post-surgical 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 A ctive 34990117 Problem Lymphocytosis D72.820 Active 639314 09 Problem Irritable bowel syndrome with diarrhea K58.0 Active 824677749 Problem Dysfunction of right eustachian tube H69.81 Active 62100803 Problem Essential hypertension I10 Active 01674089 Problem Lung nodule, solitary R91.1 Active 519986764 Problem 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 of 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 Active 405881572642486 Problem Thyroid nodule E04.1 Active 13731 5001 ALLERGIES No Information ENCOUNTERS Encounter Location Date Diagnosis [facility] [id number] [address] [place] [id number] 08 Jun, 2019 Peripheral vascular disease, unspecified I73.9 [facility] [address] [place] [id number] 06 Jun, 2019 [facility] [address] [place] [phone] May, Irritable bowel syndrome wit h diarrhea K58.0 and Tobacco use Z72.0 [facility] [address] [id number] [address] [place] [phone] 10 Apr, 2019 Viral URI with cough J06.9 a nd Fever R50.9 [facility] [address] [address] Mar, Irritable bowel syndrome wit h diarrhea K58.0 and Toe pain, left M79.675 [facility] [address] [address] Mar, Left foot pain M79.672 [facility] [address] [address] Mar, Hyperlipemia E78.5 [place] [address] [address] Jan, Encounter for immunization Z 23 [place] [address] [address] Dec, [facility] [address] [address] Nov, [place] [address] [address] Oct, [facility] [address] [address] Oct, Arthralgia, unspecified join t M25.50 [place] [address] [id number] [address] [place] [phone] Oct, Seborrheic keratosis L82.1 [facility] [address] [id number] [address] [place] [phone] Oct, [place] [address] [address] Sep, [place] [id number] [place] [address] Sep, Other fatigue R53.83 ; Aleida diasis B37.9 and Arthralgia, unspecified joint M25.50 [facility] [address] [facility] [id number] [address] [place] [address] Jun, Post-surgical 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 [facility] [address] [facility] [id number] [address] [place] [phone] May, Post-surgical 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 and Peripheral vascular disease, unspecified I73.9 [facility] [id number] [place] [address] Mar, [facility] [id number] [place] [phone] Mar, Post-surgical 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 [facility] [id number] [place] [phone] Jan, Nodular thyroid disease E04. 1 ; Lung mass R91.8 ; Iron deficiency anemia due to chronic blood loss D50.0 ; Essential hypertension I10 and 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 of 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 [facility] [address] [place] [id number] Dec, Dental examination Z01.20 [facility] [id number] [place] [phone] Dec, Thyroid nodule E04.1 [facility] [id number] [place] [phone] Oct, Lung nodule, solitary R91.1 [facility] [address] [facility] [id number] [address] [place] [phone] Oct, [facility] [address] [address] Oct, [facility] [id number] [place] [phone] Oct, [facility] [id number] [place] [address] Sep, [place] [address] [place] [phone] Aug, [place] [address] [address] July, Arthralgia, unspecified join t M25.50 ; Essential hypertension I10 ; Seborrheic keratosis L82.1 and LLQ abdominal pain R10.32 [place] [address] [address] Feb, Arthralgia, unspecified join t M25.50 [place] [id number] [place] [address] Feb, Arthralgia, unspecified join t M25.50 [place] [address] [address] Dec, Arthralgia, unspecified join t M25.50 [place] [address] [address] Dec, Right flank pain R10.9 ; Lef t foot pain M79.672 ; Arthralgia, unspecified joint M25.50 and Encounter for immunization Z23 [place] [address] [address] 09 Dec, 2016 CVA (cerebral vascular accid ent) I63.9 [place] [address] [address] Dec, RUQ abdominal pain R10.11 [place] [address] [address] 02 Dec, 2016 Right lower quadrant pain R1 0.31 ; Diverticulitis of intestine without perforation or abscess without bleeding, unspecified part of intestinal tract K57.92 and Internal hemorrhoids K64.8 [place] [id number] [place] [address] Nov, [place] [address] [address] Oct, [facility] [address] [facility] [id number] [address] [place] [address] Aug, Iron deficiency anemia due t o chronic blood loss D50.0 [facility] [address] [facility] [id number] [address] [place] [address] Aug, Peripheral vascular disease, unspecified I73.9 and Colitis K52.9 [place] [id number] [place] [address] 14 Aug, 2016 H/O: GI bleed Z87.19 [place] [id number] [place] [id number] Aug, CVA (cerebral vascular accid ent) I63.9 [place] [id number] [place] [phone] Aug, RUQ abdominal pain R10.11 [facility] [id number] [place] [address] July, RUQ abdominal pain R10.11 an d Lymphocytosis D72.820 [place] [id number] [place] [address] July, [facility] [id number] [place] [address] July, Colitis K52.9 [facility] [address] [id number] July, [facility] [address] [facility] [id number] [address] [place] [address] Jun, Right flank pain R10.9 [facility] [id number] [place] [phone] May, Urinary tract infection with out hematuria, site unspecified N39.0 and Right flank pain R10.9 [facility] [id number] [place] [phone] Feb, Acute non-recurrent maxillar y sinusitis J01.00 and Need for hepatitis C screening test Z11.59 [facility] [address] [id number] [address] [place] [phone] Jan, Dental examination Z01.20 [facility] [address] [id number] [address] [place] [address] [id number] Dec, Dental examination Z01.20 [facility] [address] [id number] [address] [place] [address] [id number] Dec, Dental examination Z01.20 [facility] [address] [id number] [address] [place] [phone] Dec, [facility] [address] [id number] [address] [place] [phone] Dec, [facility] [id number] [place] [address] [id number] Dec, Dental examination Z01.20 [facility] [address] [id number] [address] [place] [phone] Nov, [facility] [address] [id number] [place] [id number] Nov, Dental examination Z01.20 [facility] [address] [id number] [address] [place] [address] Oct, Arthralgia, unspecified join t M25.50 and Essential hypertension I10 [facility] [address] [id number] [address] [place] [address] Oct, [facility] [address] [id number] [address] [place] [address] Sep, Bilateral otitis media, unsp ecified chronicity, unspecified otitis media type H66.93 [facility] [address] [id number] [address] [place] [address] [id number] Sep, Dental examination Z01.20 [facility] [address] [id number] [place] [address] [id number] 16 Aug, 2015 Dental examination V72.2 [facility] [address] [address] 14 Aug, 2015 Essential hypertension I10 a nd Muscle cramping R25.2 [facility] [id number] [place] [phone] 09 Aug, 2015 Tension-type headache, not i ntractable, unspecified chronicity pattern G44.209 ; Muscle cramping R25.2 and Right leg pain M79.604 [facility] [address] [id number] July, Dental examination Z01.20 [facility] [address] [id number] July, Encounter for dental examina tion and cleaning without abnormal findings Z01.20 and Dental caries K02.9 [facility] [id number] [place] [address] [phone] Jun, Encounter for dental examina tion Z01.20 [facility] [address] [address] Apr, [facility] [address] [address] 02 Apr, 2015 Bronchitis J40 [facility] [address] [address] 09 Feb, 2015 Hyperlipemia E78.5 ; Carotid arterial disease I77.9 ; Tobacco use Z72.0 ; Hypertension I10 ; RBBB I45.10 and CVA (cerebral vascular accident) I63.9 [place] [address] [address] 03 Feb, 2015 Status post CVA Z86.73 ; Dys function of right eustachian tube H69.81 and Essential hypertension I10 [facility] [address] [address] Dec, Encounter for immunization Z 23 [place] [id number] [place] [phone] Oct, PVD (peripheral vascular dis ease) 443.9 and Weight loss 783.21 [place] [id number] [place] [phone] Oct, PVD (peripheral vascular dis ease) 443.9 and Weight loss 783.21 [place] [id number] [place] [phone] Aug, Hyperlipidemia 272.4 ; Carot id arterial disease 447.9 ; Tobacco dependency 305.1 ; Hypertension 401.9 ; RBBB 426.4 and CVA (cerebral infarction) 434.[address] [address] Aug, [address] [address] Aug, Pseudoaneurysm following pro cedure 997.79 [address] [id number] [place] [phone] July, Chest pain, unspecified 786. 50 ; Occlusion and stenosis of carotid artery [...] for prophylactic vaccination and inoculation, Influenza V04.81 [facility] [address] [id number] [address] [place] [address], [place] [address] 14 Jun, 2014 [facility] [address] [id number] [address] [place] [address], [place] [address] Jun, [facility] [address] [id number] [address] [place] [address], [place] [address] May, [facility] [address] [id number] [address] [place] [phone] May, [facility] [address] [id number] [address] [place] [address], [place] [address] May, [facility] [address] [id number] [address] [place] [address], [place] [address] May, [facility] [address] [id number] [address] [place] [address] Mar, [facility] [address] [id number] [address] [place] [phone] Mar, [facility] [address] [id number] [address] [place] [phone] Mar, [facility] [address] [id number] [address] [place] [phone] Mar, [facility] [address] [id number] [address] [place] [phone] Mar, [facility] [address] [id number] [address] [place] [phone] Mar, [facility] [address] [id number] [address] [place] [phone] Mar, [facility] [address] [id number] [address] [place] [phone] Mar, [facility] [address] [id number] [address] [place] [phone] Mar, [facility] [address] [id number] [address] [place] [address], [place] [address] Mar, [facility] [address] [id number] [address] [place] [address], [place] [address] Feb, [facility] [address] [id number] [address] [place] [address], [place] [address] Feb, [facility] [address] [id number] [address] [place] [address], [place] [address] Feb, [facility] [address] [id number] [address] [place] [address], [place] [address] Feb, [facility] [address] [id number] [address] [place] [address], [place] [address] Feb, [facility] [address] [id number] [address] [place] [address], [place] [address] Feb, [facility] [address] [id number] [address] [place] [address], [place] [address] Feb, [facility] [address] [id number] [address] [place] [address], [place] [address] Feb, [facility] [address] [id number] [address] [place] [address], [place] [address] Jan, [facility] [address] [id number] [address] [place] [address], [place] [address] Jan, [facility] [address] [id number] [address] [place] [address], [place] [address] Nov, [facility] [address] [id number] [address] [place] [address], [place] [address] Nov, [facility] [address] [id number] [address] [place] [address], [place] [address] Sep, [facility] [address] [id number] [address] [place] [address], [place] [address] Sep, [facility] [address] [id number] [address] [place] [address], [place] [address] Sep, [facility] [address] [id number] [address] [place] [address], [place] [address] Sep, [facility] [address] [id number] [address] [place] [address], [place] [address] Aug, [facility] [address] [id number] [address] [place] [address], [place] [address] Aug, [facility] [address] [id number] [address] [place] [address], [place] [address] Aug, [facility] [address] [id number] [address] [place] [address], [place] [address] Aug, [facility] [address] [id number] [address] [place] [address], [place] [address] Aug, [facility] [address] [id number] [address] [place] [address], [place] [address] Aug, [facility] [address] [id number] [address] [place] [address], [place] [address] July, [facility] [address] [id number] [address] [place] [address], [place] [address] July, [facility] [address] [id number] [address] [place] [address], [place] [address] July, [facility] [address] [id number] [address] [place] [address], [place] [address] July, [facility] [address] [id number] [address] [place] [address], [place] [address] Jun, [facility] [address] [id number] [address] [place] [address], [place] [address] Jun, [facility] [address] [id number] [address] [place] [address], [place] [address] Apr, [facility] [address] [id number] [address] [place] [address], [place] [address] Apr, [facility] [address] [id number] [address] [place] [address], [place] [address] Apr, [facility] [address] [id number] [address] [place] [address], [place] [address] Apr, [facility] [address] [id number] [address] [place] [address], [place] [address] Apr, [facility] [address] [id number] [address] [place] [address], [place] [address] Apr, [facility] [address] [id number] [address] [place] [address], [place] [address] Mar, [facility] [address] [id number] [address] [place] [address], [place] [address] Mar, [facility] [address] [id number] [address] [place] [address], [place] [address] Mar, [facility] [address] [id number] [address] [place] [address], [place] [address] Mar, [facility] [address] [id number] [address] [place] [address], [place] [address] Mar, [facility] [address] [id number] [address] [place] [address], [place] [address] Feb, [facility] [address] [id number] [address] [place] [address], [place] [address] 31 Feb, 2013 [facility] [address] [id number] [address] [place] [address], [place] [address] Feb, [facility] [address] [id number] [address] [place] [address], [place] [address] 17 Feb, 2013 [facility] [address] [id number] [address] [place] [address], [place] [address] 10 Feb, 2013 [facility] [address] [id number] [address] [place] [address], [place] [address] 10 Feb, 2013 [facility] [address] [id number] [address] [place] [address] [address] Feb, [facility] [address] [id number] [address] [place] [address], [place] [address] Feb, [facility] [address] [id number] [address] [place] [address], [place] [address] Feb, [facility] [address] [id number] [address] [place] [address], [place] [address] Feb, [facility] [address] [id number] [address] [place] [address], [place] [address] Feb, [facility] [address] [id number] [address] [place] [address], [place] [address] Feb, [facility] [address] [id number] [address] [place] [address], [place] [address] Jan, [facility] [address] [id number] [address] [place] [address], [place] [address] Jan, [facility] [address] [id number] [address] [place] [address], [place] [address] Jan, [facility] [address] [id number] [address] [place] [address], [place] [address] Jan, [facility] [address] [id number] [address] [place] [address], [place] [address] Jan, [facility] [address] [id number] [address] [place] [id number] Jan, [facility] [address] [id number] [address] [place] [id number] Jan, [facility] [address] [id number] [address] [place] [address], [place] [address] Jan, [facility] [address] [id number] [address] [place] [address], [place] [address] Jan, [facility] [address] [id number] [address] [place] [id number] Jan, [facility] [address] [id number] [address] [place] [address], [place] [address] Jan, [facility] [address] [id number] [address] [place] [address], [place] [address] Jan, [facility] [address] [id number] [address] [place] [address], [place] [address] Jan, [facility] [address] [id number] [address] [place] [address], [place] [address] Jan, [facility] [address] [id number] [address] [place] [address], [place] [address] Jan, [facility] [address] [id number] [address] [place] [address], [place] [address] Dec, [facility] [address] [id number] [address] [place] [address], [place] [address] Dec, [facility] [address] [id number] [address] [place] [address], [place] [address] Dec, [facility] [address] [id number] [address] [place] [address], [place] [address] Dec, [facility] [address] [id number] [address] [place] [address], [place] [address] Oct, [facility] [address] [id number] [address] [place] [address], [place] [address] Oct, [facility] [address] [id number] [address] [place] [address], [place] [address] Oct, [facility] [address] [id number] [address] [place] [address], [place] [address] Sep, [facility] [address] [id number] [address] [place] [address], [place] [address] Aug, [facility] [address] [id number] [address] [place] [address], [place] [address] July, [facility] [address] [id number] [address] [place] [address], [place] [address] July, [facility] [address] [id number] [address] [place] [address], [place] [address] July, [facility] [address] [id number] [address] [place] [address], [place] [address] July, [facility] [address] [id number] [address] [place] [address], [place] [address] May, [facility] [address] [id number] [address] [place] [address], [place] [address] May, [facility] [address] [address] [id number] [address] [place] [address], [place] [address] Mar, [facility] [address] [id number] [address] [place] [address], [place] [address] Mar, [facility] [address] [id number] [address] [place] [address], [place] [address] Mar, [facility] [address] [id number] [address] [place] [address], [place] [address] Feb, [facility] [address] [id number] [address] [place] [address], [place] [address] Feb, [facility] [address] [id number] [address] [place] [address], [place] [address] Feb, [facility] [address] [id number] [address] [place] [address], [place] [address] Feb, [facility] [address] [id number] [address] [place] [address], [place] [address] Feb, [facility] [address] [id number] [address] [place] [address], [place] [address] Feb, [facility] [address] [id number] [address] [place] [address], [place] [address] Jan, [facility] [address] [id number] [address] [place] [address], [place] [address] Jan, [facility] [address] [id number] [address] [place] [address], [place] [address] Jan, [facility] [address] [id number] [address] [place] [address], [place] [address] Jan, [facility] [address] [id number] [address] [place] [address], [place] [address] Jan, [facility] [address] [id number] [address] [place] [address], [place] [address] Jan, [facility] [address] [id number] [address] [place] [address], [place] [address] Jan, [facility] [address] [id number] [address] [place] [address], [place] [address] Jan, [facility] [address] [id number] [address] [place] [address], [place] [address] Dec, [facility] [address] [id number] [address] [place] [address], [place] [address] Dec, [facility] [address] [id number] [address] [place] [address], [place] [address] Dec, [facility] [address] [id number] [address] [place] [address], [place] [address] Dec, [facility] [address] [id number] [address] [place] [address], [place] [address] Oct, [facility] [address] [id number] [address] [place] [address], [place] [address] Sep, [facility] [address] [id number] [address] [place] [address], [place] [address] Sep, [facility] [address] [id number] [address] [place] [address], [place] [address] Sep, [facility] [address] [id number] [address] [place] [address], [place] [address] Sep, [facility] [address] [id number] [address] [place] [address], [place] [address] Jun, [facility] [address] [id number] [address] [place] [address], [place] [address] 28 May, 2011 [facility] [address] [id number] [address] [place] [address], [place] [address] 14 Apr, 2011 [facility] [address] [id number] [address] [place] [address], [place] [address] 09 Apr, 2011 [facility] [address] [id number] [address] [place] [address], [place] [address] Apr, [facility] [address] [id number] [address] [place] [address], [place] [address] Feb, [facility] [address] [id number] [address] [place] [address], [place] [address] Feb, [facility] [address] [id number] [address] [place] [address], [place] [address] Jan, [facility] [address] [id number] [address] [place] [address], [place] [address] Jan, [facility] [address] [id number] [address] [place] [address], [place] [address] Jan, [facility] [address] [id number] [address] [place] [address], [place] [address] 31 Feb, 2010 [facility] [address] [id number] [address] [place] [address], [place] [address] 30 Feb, 2010 [facility] [address] [id number] [address] [place] [address], [place] [address] 30 Feb, 2010 [facility] [address] [id number] [address] [place] [address], [place] [address] 30 Feb, 2010 [facility] [address] [id number] [address] [place] [address], [place] [address] 27 Feb, 2010 [facility] [address] [id number] [address] [place] [address], [place] [address] 23 Feb, 2010 [facility] [address] [id number] [address] [place] [address], [place] [address] Feb, [facility] [address] [id number] [address] [place] [address] Feb, [facility] [address] [id number] [address] [place] [address] Feb, [facility] [address] [id number] [address] [place] [address] Feb, [facility] [address] [id number] [address] [place] [address] Jan, [facility] [address] [id number] [address] [place] [phone] Dec, [facility] [address] [id number] [address] [place] [phone] Nov, [facility] [address] [id number] [address] [place] [address] Mar, [facility] [address] [id number] [address] [place] [address] Jan, [facility] [address] [id number] [address] [place] [phone] Dec, [facility] [address] [id number] [address] [place] [phone] Dec, [facility] [address] [id number] [address] [place] [id number] Sep, [facility] [address] [id number] [address] [place] [phone] Jun, [facility] [address] [id number] [address] [place] [phone] Mar, [facility] [address] [id number] [address] [place] [phone] Jan, IMMUNIZATIONS No Known Immunizations SOCIAL HISTORY Never Assessed REASON FOR VISIT PLAN OF CARE VITAL SIGNS Height 57 in 2014-02-26 Weight 147 lbs 2014-02-26 Heart Rate 72 bpm 2014-02-26 Blood pressure systolic 0 mmHg 2014-02-26 Blood pressure diastolic 0 mmHg 2014-02-26 MEDICATIONS No Known Medications RESULTS No Results PROCEDURES Procedure Date Ordered Result Body Site MEASURE BLOOD OXYGEN LEVEL Feb 26, 2014 EXTRACRANIAL STUDY Feb 26, 2014 INSTRUCTIONS MEDICATIONS ADMINISTERED No Known Medications MEDICAL [...] ago Medical History x-ray done 01/03 shows compr ession fx at t7 and 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 Had a pseudoaneurysm after procedure Dr Burton 07/2014 Surgical History Colonoscopy. Increased Lymp hocytes either evolving Autoimmune condition or related to medications she is taking 06/2016 Surgical History Gastric and Duodenal ulcer 01/2017 Surgical History abdominal aortic aneurysm repair Surgical History Thyroidectomy Dr Nguyen. Carcinoma 2017 Hospitalization History Heart cath per Dr. Burton at [facility]- hypotension 08/08 Hospitalization History Hematochezia-[facility] 07/27/16
--- OUTSIDE RECORDS SUMMARY | 2019-08-06 07:51 | XMS REPORT ---
Author Author Lavern HUGHES Organization [facility] Address [address] [place] [address] Care Team Providers Care Emergency Medical Technician Basic Name Role Phone DAY HUGHES Unavailable PROBLEMS Type Condition ICD9-CM Code YJS79-TL Code Onset Dates Condition S tatus SNOMED Code Problem Hyperlipemia E78.5 Active 8426621 4 Problem Cataracts, bilateral H26.9 Active 93334124 Problem 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 2755 55921 Problem CVA (cerebral vascular accident) I63.9 Active 566782784 Problem Peripheral vascular disease, unspecified I73.9 Active 400675751 Problem Iron deficiency anemia due to chronic blood loss D 50.0 Active 813398320 Problem Diverticulitis of intestine without perforation or abscess without bleeding, unspecified part of intestinal tract K57.92 Active 668054757 Problem Post-surgical 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 A ctive 98936055 Problem Lymphocytosis D72.820 Active 305506 09 Problem Irritable bowel syndrome with diarrhea K58.0 Active 599671695 Problem Dysfunction of right eustachian tube H69.81 Active 01079181 Problem Essential hypertension I10 Active 51243736 Problem Lung nodule, solitary R91.1 Active 445494922 Problem 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 of 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 Active 053616048613217 Problem Thyroid nodule E04.1 Active 08266 5005 ALLERGIES No Information ENCOUNTERS Encounter Location Date Diagnosis [facility] [address] [facility] [id number] [address] [place] [id number] 02 May, 2019 Irritable bowel syndrome wit h diarrhea K58.0 and Tobacco use Z72.0 [facility] [address] [facility] [id number] [address] [place] [id number] 10 Apr, 2019 Viral URI with cough J06.9 a nd Fever R50.9 [facility] [address] [facility] [id number] [address] [place] [address] Mar, Irritable bowel syndrome wit h diarrhea K58.0 and Toe pain, left M79.675 [facility] [address] [facility] [id number] [address] [place] [address] Mar, Left foot pain M79.672 [facility] [address] [place] [id number] [address] [place] [address] Mar, Hyperlipemia E78.5 [facility] [address] [facility] [id number] [address] [place] [address] Jan, Encounter for immunization Z 23 [facility] [address] [facility] [id number] [address] [place] [address] Dec, [facility] [address] [place] [id number] [address] [place] [address] Nov, [facility] [address] [place] [id number] [address] [place] [address] Oct, [facility] [address] [place] [id number] [address] [place] [address] Oct, Arthralgia, unspecified join t M25.50 [place] [address] [place] [id number] [address] [place] [address] Oct, Seborrheic keratosis L82.1 [facility] [address] [place] [id number] [address] [place] [address] Oct, [facility] [address] [facility] [id number] [address] [place] [address] Sep, [place] [address] [place] [id number] [address] [place] [address] Sep, Other fatigue R53.83 ; Aleida diasis B37.9 and Arthralgia, unspecified joint M25.50 [place] [address] [place] [id number] [address] [place] [address] Jun, Post-surgical 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 [facility] [address] [facility] [id number] [address] [place] [address] May, Post-surgical 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 and Peripheral vascular disease, unspecified I73.9 [facility] [address] [facility] [id number] [address] [place] [address] Mar, [facility] [address] [facility] [id number] [address] [place] [address] Mar, Post-surgical 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 [facility] [address] [facility] [id number] [address] [place] [address] Jan, Nodular thyroid disease E04. 1 ; Lung mass R91.8 ; Iron deficiency anemia due to chronic blood loss D50.0 ; Essential hypertension I10 and 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 of 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 [facility] [address] [facility] [id number] [address] [place] [id number] Dec, Dental examination Z01.20 [facility] [address] [facility] [id number] [address] [place] [address] Dec, Thyroid nodule E04.1 [facility] [address] [facility] [id number] [address] [place] [address] Oct, Lung nodule, solitary R91.1 [facility] [address] [facility] [id number] [address] [place] [address] Oct, [facility] [address] [facility] [id number] [address] [place] [address] Oct, [facility] [address] [facility] [id number] [address] [place] [address] Oct, [facility] [address] [facility] [id number] [address] [place] [address] Sep, [facility] [address] [facility] [id number] [address] [place] [address] Aug, [facility] [address] [address] July, Arthralgia, unspecified join t M25.50 ; Essential hypertension I10 ; Seborrheic keratosis L82.1 and LLQ abdominal pain R10.32 [place] [address] [address] Feb, Arthralgia, unspecified join t M25.50 [place] [address] [address] Feb, Arthralgia, unspecified join t M25.50 [place] [address] [address] Dec, Arthralgia, unspecified join t M25.50 [place] [address] [address] Dec, Right flank pain R10.9 ; Lef t foot pain M79.672 ; Arthralgia, unspecified joint M25.50 and Encounter for immunization Z23 [place] [address] [address] Dec, CVA (cerebral vascular accid ent) I63.9 [place] [address] [address] Dec, RUQ abdominal pain R10.11 [place] [address] [address] Dec, Right lower quadrant pain R1 0.31 ; Diverticulitis of intestine without perforation or abscess without bleeding, unspecified part of intestinal tract K57.92 and Internal hemorrhoids K64.8 [place] [address] [address] Nov, [place] [address] [address] Oct, [place] [address] [address] Aug, Iron deficiency anemia due t o chronic blood loss D50.0 [facility] [address] [facility] [id number] [address] [place] [address] Aug, Peripheral vascular disease, unspecified I73.9 and Colitis K52.9 [facility] [address] [facility] [id number] [address] [place] [address] 14 Aug, 2016 H/O: GI bleed Z87.19 [place] [address] [place] [id number] [address] [place] [phone] 07 Aug, 2016 CVA (cerebral vascular accid ent) I63.9 [place] [address] [place] [id number] [address] [place] [address] Aug, RUQ abdominal pain R10.11 [facility] [address] [place] [id number] [address] [place] [address] July, RUQ abdominal pain R10.11 an d Lymphocytosis D72.820 [place] [address] [facility] [id number] [address] [place] [address] July, [facility] [address] [place] [id number] [address] [place] [address] July, Colitis K52.9 [facility] [address] [place] [id number] [place] [address] [id number] July, [facility] [address] [place] [id number] [address] [place] [address] Jun, Right flank pain R10.9 [facility] [address] [place] [id number] [address] [place] [address] May, Urinary tract infection with out hematuria, site unspecified N39.0 and Right flank pain R10.9 [facility] [address] [facility] [id number] [address] [place] [address] Feb, Acute non-recurrent maxillar y sinusitis J01.00 and Need for hepatitis C screening test Z11.59 [facility] [id number] [place] [id number] Jan, Dental examination Z01.20 [facility] [address] [id number] [address] [place] [id number] Dec, Dental examination Z01.20 [facility] [address] [id number] [address] [place] [id number] Dec, Dental examination Z01.20 [facility] [address] [id number] [address] [place] [address] Dec, [facility] [address] [id number] [address] [place] [address] Dec, [facility] [address] [id number] [place] [id number] Dec, Dental examination Z01.20 [facility] [address] [id number] [address] [place] [address] Nov, [facility] [address] [id number] [place] [address] [id number] Nov, Dental examination Z01.20 [facility] [address] [id number] [address] [place] [address] Oct, Arthralgia, unspecified join t M25.50 and Essential hypertension I10 [facility] [address] [id number] [address] [place] [address] Oct, [facility] [address] [id number] [address] [place] [address] Sep, Bilateral otitis media, unsp ecified chronicity, unspecified otitis media type H66.93 [facility] [address] [id number] [address] [place] [address] [id number] Sep, Dental examination Z01.20 [facility] [address] [id number] [address] [place] [address] [id number] Aug, Dental examination V72.2 [facility] [address] [id number] [address] [place] [phone] 14 Aug, 2015 Essential hypertension I10 a nd Muscle cramping R25.2 [facility] [address] [address] 09 Aug, 2015 Tension-type headache, not i ntractable, unspecified chronicity pattern G44.209 ; Muscle cramping R25.2 and Right leg pain M79.604 [facility] [address] [id number] July, Dental examination Z01.20 [facility] [address] [id number] July, Encounter for dental examina tion and cleaning without abnormal findings Z01.20 and Dental caries K02.9 [facility] [id number] [place] [address] [phone] Jun, Encounter for dental examina tion Z01.20 [facility] [address] [address] Apr, [facility] [address] [address] Apr, Bronchitis J40 [facility] [address] [address] Feb, Hyperlipemia E78.5 ; Carotid arterial disease I77.9 ; Tobacco use Z72.0 ; Hypertension I10 ; RBBB I45.10 and CVA (cerebral vascular accident) I63.9 [place] [address] [place] [id number] [address] [place] [address] Feb, Status post CVA Z86.73 ; Dys function of right eustachian tube H69.81 and Essential hypertension I10 [place] [address] [place] [id number] [place] [address] Dec, Encounter for immunization Z 23 [place] [address] [address] Oct, PVD (peripheral vascular dis ease) 443.9 and Weight loss 783.21 [place] [address] [place] [id number] [address] [place] [address] Oct, PVD (peripheral vascular dis ease) 443.9 and Weight loss 783.21 [place] [address] [place] [id number] [address] [place] [address] Aug, Hyperlipidemia 272.4 ; Carot id arterial disease 447.9 ; Tobacco dependency 305.1 ; Hypertension 401.9 ; RBBB 426.4 and CVA (cerebral infarction) 434.91 [place] [address] [address] Aug, [place] [address] [address] Aug, Pseudoaneurysm following pro cedure 997.[address] [address] July, Chest pain, unspecified 786. 50 ; [...] for prophylactic vaccination and inoculation, Influenza V04.81 [place] [address] [place] [id number] [address] [place] [address] Jun, [facility] [address] [id number] [address] [place] [address], [place] [address] Jun, [facility] [address] [id number] [address] [place] [address], [place] [address] May, [facility] [address] [id number] [address] [place] [address], [place] [address] 17 May, 2014 [facility] [address] [id number] [address] [place] [address], [place] [address] May, [facility] [address] [id number] [address] [place] [address], [place] [address] May, [facility] [address] [id number] [address] [place] [address], [place] [address] Mar, [facility] [address] [id number] [address] [place] [address], [place] [address] Mar, [facility] [address] [id number] [address] [place] [address], [place] [address] Mar, [facility] [address] [id number] [address] [place] [address], [place] [address] Mar, [facility] [address] [id number] [address] [place] [address], [place] [address] Mar, [facility] [address] [id number] [address] [place] [address], [place] [address] Mar, [facility] [address] [id number] [address] [place] [address], [place] [address] Mar, [facility] [address] [id number] [address] [place] [address], [place] [address] Mar, [facility] [address] [id number] [address] [place] [address], [place] [address] Mar, [facility] [address] [id number] [address] [place] [address], [place] [address] Mar, [facility] [address] [id number] [address] [place] [address], [place] [address] Feb, [facility] [address] [id number] [address] [place] [address], [place] [address] Feb, [facility] [address] [id number] [address] [place] [address], [place] [address] Feb, [facility] [address] [id number] [address] [place] [address], [place] [address] Feb, [facility] [address] [id number] [address] [place] [address], [place] [address] Feb, [facility] [address] [id number] [address] [place] [address], [place] [address] Feb, [facility] [address] [id number] [address] [place] [address], [place] [address] Feb, [facility] [address] [id number] [address] [place] [address], [place] [address] Feb, [facility] [address] [id number] [address] [place] [address], [place] [address] Jan, [facility] [address] [id number] [address] [place] [address], [place] [address] Jan, [facility] [address] [id number] [address] [place] [address], [place] [address] Nov, [facility] [address] [id number] [address] [place] [address], [place] [address] Nov, [facility] [address] [id number] [address] [place] [address], [place] [address] Sep, [facility] [address] [id number] [address] [place] [address], [place] [address] Sep, [facility] [address] [id number] [address] [place] [address], [place] [address] Sep, [facility] [address] [id number] [address] [place] [address], [place] [address] Sep, [facility] [address] [id number] [address] [place] [address], [place] [address] Aug, [facility] [address] [id number] [address] [place] [address], [place] [address] Aug, [facility] [address] [id number] [address] [place] [address], [place] [address] Aug, [facility] [address] [id number] [address] [place] [address], [place] [address] Aug, [facility] [address] [id number] [address] [place] [address], [place] [address] Aug, [facility] [address] [id number] [address] [place] [address], [place] [address] Aug, [facility] [address] [id number] [address] [place] [address], [place] [address] July, [facility] [address] [id number] [address] [place] [address], [place] [address] July, [facility] [address] [id number] [address] [place] [address], [place] [address] July, [facility] [address] [id number] [address] [place] [address], [place] [address] July, [facility] [address] [id number] [address] [place] [address], [place] [address] Jun, [facility] [address] [id number] [address] [place] [address], [place] [address] Jun, [facility] [address] [id number] [address] [place] [address], [place] [address] Apr, [facility] [address] [id number] [address] [place] [address], [place] [address] Apr, [facility] [address] [id number] [address] [place] [address], [place] [address] Apr, [facility] [address] [id number] [address] [place] [address], [place] [address] Apr, [facility] [address] [id number] [address] [place] [address], [place] [address] Apr, [facility] [address] [id number] [address] [place] [address], [place] [address] Apr, [facility] [address] [id number] [address] [place] [address], [place] [address] Mar, [facility] [address] [id number] [address] [place] [address], [place] [address] Mar, [facility] [address] [id number] [address] [place] [address], [place] [address] Mar, [facility] [address] [id number] [address] [place] [address], [place] [address] Mar, [facility] [address] [id number] [address] [place] [address], [place] [address] Mar, [facility] [address] [id number] [address] [place] [address], [place] [address] Feb, [facility] [address] [id number] [address] [place] [address], [place] [address] Feb, [facility] [address] [id number] [address] [place] [address], [place] [address] Feb, [facility] [address] [id number] [address] [place] [address], [place] [address] Feb, [facility] [address] [id number] [address] [place] [address], [place] [address] Feb, [facility] [address] [id number] [address] [place] [address], [place] [address] Feb, [facility] [address] [id number] [address] [place] [address], [place] [address] Feb, [facility] [address] [id number] [address] [place] [address], [place] [address] Feb, [facility] [address] [id number] [address] [place] [address], [place] [address] Feb, [facility] [address] [id number] [address] [place] [address], [place] [address] Feb, [facility] [address] [id number] [address] [place] [address], [place] [address] Feb, [facility] [address] [id number] [address] [place] [address], [place] [address] Feb, [facility] [address] [id number] [address] [place] [address], [place] [address] Jan, [facility] [address] [id number] [address] [place] [address], [place] [address] Jan, [facility] [address] [id number] [address] [place] [address], [place] [address] Jan, [facility] [address] [id number] [address] [place] [address], [place] [address] Jan, [facility] [address] [id number] [address] [place] [address], [place] [address] Jan, [facility] [address] [id number] [address] [place] [address], [place] [address] Jan, [facility] [address] [id number] [address] [place] [address], [place] [address] Jan, [facility] [address] [id number] [address] [place] [address], [place] [address] Jan, [facility] [address] [id number] [address] [place] [address], [place] [address] Jan, [facility] [address] [id number] [address] [place] [address], [place] [address] Jan, [facility] [address] [id number] [address] [place] [address], [place] [address] Jan, [facility] [address] [id number] [address] [place] [address] [address] Jan, [facility] [address] [id number] [address] [place] [address], [place] [address] Jan, [facility] [address] [id number] [address] [place] [address], [place] [address] Jan, [facility] [address] [id number] [address] [place] [address], [place] [address] Jan, [facility] [address] [id number] [address] [place] [address], [place] [address] Dec, [facility] [address] [id number] [address] [place] [address], [place] [address] Dec, [facility] [address] [id number] [address] [place] [address], [place] [address] Dec, [facility] [address] [id number] [address] [place] [address], [place] [address] Dec, [facility] [address] [id number] [address] [place] [address], [place] [address] Oct, [facility] [address] [id number] [address] [place] [address], [place] [address] Oct, [facility] [address] [id number] [address] [place] [address], [place] [address] Oct, [facility] [address] [id number] [address] [place] [address], [place] [address] Sep, [facility] [address] [id number] [address] [place] [address] Aug, [facility] [address] [id number] [address] [place] [address], [place] [address] July, [facility] [address] [id number] [address] [place] [address], [place] [address] July, [facility] [address] [id number] [address] [place] [address], [place] [address] July, [facility] [address] [id number] [address] [place] [address], [place] [address] July, [facility] [address] [id number] [address] [place] [address], [place] [address] May, [facility] [address] [id number] [address] [place] [address], [place] [address] May, [facility] [address] [id number] [address] [place] [address], [place] [address] Mar, [facility] [address] [id number] [address] [place] [address], [place] [address] Mar, [facility] [address] [id number] [address] [place] [address], [place] [address] Mar, [facility] [address] [id number] [address] [place] [address], [place] [address] Feb, [facility] [address] [id number] [address] [place] [address], [place] [address] Feb, [facility] [address] [id number] [address] [place] [address], [place] [address] Feb, [facility] [address] [id number] [address] [place] [address], [place] [address] Feb, [facility] [address] [id number] [address] [place] [address], [place] [address] Feb, [facility] [address] [id number] [address] [place] [address], [place] [address] Feb, [facility] [address] [id number] [address] [place] [address], [place] [address] Jan, [facility] [address] [id number] [address] [place] [address], [place] [address] Jan, [facility] [address] [id number] [address] [place] [address], [place] [address] Jan, [facility] [address] [id number] [address] [place] [address], [place] [address] Jan, [facility] [address] [id number] [address] [place] [address], [place] [address] Jan, [facility] [address] [id number] [address] [place] [address], [place] [address] Jan, [facility] [address] [id number] [address] [place] [address], [place] [address] Jan, [facility] [address] [id number] [address] [place] [address], [place] [address] Jan, [facility] [address] [id number] [address] [place] [address], [place] [address] Dec, [facility] [address] [id number] [address] [place] [address], [place] [address] Dec, [facility] [address] [id number] [address] [place] [address], [place] [address] Dec, [facility] [address] [id number] [address] [place] [address], [place] [address] Dec, [facility] [address] [id number] [address] [place] [address], [place] [address] Oct, [facility] [address] [id number] [address] [place] [address], [place] [address] Sep, [facility] [address] [id number] [address] [place] [address], [place] [address] Sep, [facility] [address] [id number] [address] [place] [address], [place] [address] Sep, [facility] [address] [id number] [address] [place] [address], [place] [address] Sep, [facility] [address] [id number] [address] [place] [address], [place] [address] Jun, [facility] [address] [id number] [address] [place] [address], [place] [address] May, [facility] [address] [id number] [address] [place] [address], [place] [address] 14 Apr, 2011 [facility] [address] [id number] [address] [place] [address], [place] [address] 09 Apr, 2011 [facility] [address] [id number] [address] [place] [address], [place] [address] 03 Apr, 2011 [facility] [address] [id number] [address] [place] [address], [place] [address] 12 Feb, 2011 [facility] [address] [id number] [address] [place] [address], [place] [address] 12 Feb, 2011 [facility] [address] [id number] [address] [place] [address], [place] [address] 30 Jan, 2011 [facility] [address] [id number] [address] [place] [address], [place] [address] Jan, [facility] [address] [id number] [address] [place] [address], [place] [address] Jan, [facility] [address] [id number] [address] [place] [address], [place] [address] 31 Feb, 2010 [facility] [address] [id number] [address] [place] [address], [place] [address] 30 Feb, 2010 [facility] [address] [id number] [address] [place] [address], [place] [address] 30 Feb, 2010 [facility] [address] [id number] [address] [place] [address], [place] [address] 30 Feb, 2010 [facility] [address] [id number] [address] [place] [address], [place] [address] 27 Feb, 2010 [facility] [address] [id number] [address] [place] [address], [place] [address] 23 Feb, 2010 [facility] [address] [id number] [address] [place] [address], [place] [address] 20 Feb, 2010 [facility] [address] [id number] [address] [place] [address], [place] [address] 18 Feb, 2010 [facility] [address] [id number] [address] [place] [address] Feb, [facility] [address] [id number] [address] [place] [address] Feb, [facility] [address] [id number] [address] [place] [address] Jan, [facility] [address] [id number] [address] [place] [address] Dec, [facility] [address] [id number] [address] [place] [address] Nov, [facility] [address] [id number] [address] [place] [address] Mar, [facility] [address] [id number] [address] [place] [address] Jan, [facility] [address] [id number] [address] [place] [address] Dec, [facility] [address] [id number] [address] [place] [address] Dec, [facility] [address] [id number] [address] [place] [phone] Sep, [facility] [address] [id number] [address] [place] [address] Jun, [facility] [address] [id number] [address] [place] [address] Mar, [facility] [address] [id number] [address] [place] [address] Jan, IMMUNIZATIONS No Known Immunizations SOCIAL HISTORY Never Assessed REASON FOR VISIT PLAN OF CARE VITAL SIGNS MEDICATIONS No Known Medications RESULTS No Results PROCEDURES No Known [...] Heart cath per Dr. Burton at [facility]- hypotension 08/08 Hospitalization History Hematochezia-[facility] 07/27/16
--- OUTSIDE RECORDS SUMMARY | 2019-08-06 07:51 | XMS REPORT ---
Author Author Lavern HUGHES [facility] Address [address] [place] [address] Care Team Providers Care Solutions Engineer Name Role Phone DAY HUGHES Unavailable PROBLEMS Type Condition ICD9-CM Code UXZ99-TN Code Onset Dates Condition S tatus SNOMED Code Problem Hyperlipemia E78.5 Active 7854440 4 Problem Cataracts, bilateral H26.9 Active 42808808 Problem 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 2755 33136 Problem CVA (cerebral vascular accident) I63.9 Active 781502954 Problem Peripheral vascular disease, unspecified I73.9 Active 956179649 Problem Iron deficiency anemia due to chronic blood loss D 50.0 Active 536733974 Problem Diverticulitis of intestine without perforation or abscess without bleeding, unspecified part of intestinal tract K57.92 Active 590994639 Problem Post-surgical 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 A ctive 33553041 Problem Lymphocytosis D72.820 Active 929781 09 Problem Irritable bowel syndrome with diarrhea K58.0 Active 751076677 Problem Dysfunction of right eustachian tube H69.81 Active 51877596 Problem Essential hypertension I10 Active 36634836 Problem Lung nodule, solitary R91.1 Active 288405019 Problem 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 of 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 Active 815091304052890 Problem Thyroid nodule E04.1 Active 14809 5005 ALLERGIES No Information ENCOUNTERS Encounter Location Date Diagnosis [facility] [address] [facility] [id number] [address] [place] [phone] Jun, [facility] [address] [facility] [id number] [address] [place] [phone] Jun, [facility] [address] [facility] [id number] [address] [place] [phone] May, Irritable bowel syndrome wit h diarrhea K58.0 and Tobacco use Z72.0 [facility] [address] [facility] [id number] [address] [place] [address] 10 Apr, 2019 Viral URI with cough J06.9 a nd Fever R50.9 [facility] [address] [facility] [id number] [address] [place] [phone] Mar, Irritable bowel syndrome wit h diarrhea K58.0 and Toe pain, left M79.675 [facility] [address] [place] [id number] [address] [place] [address] Mar, Left foot pain M79.672 [facility] [address] [address] Mar, Hyperlipemia E78.5 [facility] [address] [place] [id number] [place] [address] Jan, Encounter for immunization Z 23 [facility] [id number] [place] [address] Dec, [facility] [address] [place] [id number] [address] [place] [phone] Nov, [place] [address] [place] [id number] [address] [place] [address] Oct, [facility] [address] [place] [id number] [address] [place] [address] Oct, Arthralgia, unspecified join t M25.50 [facility] [address] [place] [id number] [address] [place] [address] Oct, Seborrheic keratosis L82.1 [facility] [address] [place] [id number] [address] [place] [address] Oct, [facility] [address] [place] [id number] [address] [place] [phone] Sep, [facility] [address] [place] [id number] [address] [place] [address] Sep, Other fatigue R53.83 ; Aleida diasis B37.9 and Arthralgia, unspecified joint M25.50 [facility] [address] [facility] [id number] [address] [place] [address] Jun, Post-surgical 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 [facility] [address] [facility] [id number] [address] [place] [phone] May, Post-surgical 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 and Peripheral vascular disease, unspecified I73.9 [facility] [address] [facility] [id number] [address] [place] [phone] Mar, [facility] [address] [facility] [id number] [address] [place] [address] Mar, Post-surgical 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 [facility] [address] [facility] [id number] [address] [place] [address] Jan, Nodular thyroid disease E04. 1 ; Lung mass R91.8 ; Iron deficiency anemia due to chronic blood loss D50.0 ; Essential hypertension I10 and 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 of 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 [facility] [address] [id number] [address] [place] [id number] Dec, Dental examination Z01.20 [facility] [address] [facility] [id number] [address] [place] [address] Dec, Thyroid nodule E04.1 [facility] [address] [facility] [id number] [address] [place] [address] Oct, Lung nodule, solitary R91.1 [facility] [address] [facility] [id number] [address] [place] [address] Oct, [facility] [address] [facility] [id number] [address] [place] [address] Oct, [facility] [address] [facility] [id number] [address] [place] [address] Oct, [facility] [address] [address] Sep, [place] [address] [address] Aug, [place] [address] [address] July, Arthralgia, unspecified join t M25.50 ; Essential hypertension I10 ; Seborrheic keratosis L82.1 and LLQ abdominal pain R10.32 [place] [address] [address] Feb, Arthralgia, unspecified join t M25.50 [place] [address] [address] Feb, Arthralgia, unspecified join t M25.50 [place] [address] [address] Dec, Arthralgia, unspecified join t M25.50 [place] [address] [address] Dec, Right flank pain R10.9 ; Lef t foot pain M79.672 ; Arthralgia, unspecified joint M25.50 and Encounter for immunization Z23 [place] [address] [address] Dec, CVA (cerebral vascular accid ent) I63.9 [place] [address] [address] Dec, RUQ abdominal pain R10.11 [place] [address] [address] Dec, Right lower quadrant pain R1 0.31 ; Diverticulitis of intestine without perforation or abscess without bleeding, unspecified part of intestinal tract K57.92 and Internal hemorrhoids K64.8 [place] [address] [address] Nov, [facility] [address] [facility] [id number] [address] [place] [phone] Oct, [facility] [address] [facility] [id number] [address] [place] [address] Aug, Iron deficiency anemia due t o chronic blood loss D50.0 [facility] [address] [facility] [id number] [address] [place] [address] Aug, Peripheral vascular disease, unspecified I73.[address] [facility] [address] [facility] [id number] [address] [place] [address] 14 Aug, 2016 H/O: GI bleed Z87.19 [place] [address] [facility] [id number] [address] [place] [id number] 07 Aug, 2016 CVA (cerebral vascular accid ent) I63.9 [place] [address] [place] [id number] [address] [place] [address] Aug, RUQ abdominal pain R10.11 [facility] [address] [facility] [id number] [address] [place] [address] July, RUQ abdominal pain R10.11 an d Lymphocytosis D72.820 [facility] [address] [facility] [id number] [address] [place] [phone] July, [facility] [address] [place] [id number] [address] [place] [phone] July, Colitis K52.9 [facility] [id number] [place] [id number] July, [facility] [address] [facility] [id number] [address] [place] [address] Jun, Right flank pain R10.9 [facility] [address] [facility] [id number] [address] [place] [address] May, Urinary tract infection with out hematuria, site unspecified N39.0 and Right flank pain R10.9 [facility] [address] [id number] [address] [place] [address] Feb, Acute non-recurrent maxillar y sinusitis J01.00 and Need for hepatitis C screening test Z11.59 [facility] [address] [id number] [address] [place] [id number] Jan, Dental examination Z01.20 [facility] [address] [id number] [address] [place] [address] [id number] Dec, Dental examination Z01.20 [facility] [address] [id number] [address] [place] [id number] Dec, Dental examination Z01.20 [facility] [address] [id number] [address] [place] [address] Dec, [facility] [address] [id number] [address] [place] [address] Dec, [facility] [address] [id number] [place] [address] [id number] Dec, Dental examination Z01.20 [facility] [address] [id number] [address] [place] [address] Nov, [facility] [address] [id number] [address] [place] [address] [id number] Nov, Dental examination Z01.20 [facility] [address] [id number] [address] [place] [phone] Oct, Arthralgia, unspecified join t M25.50 and Essential hypertension I10 [facility] [address] [id number] [address] [place] [phone] Oct, [facility] [address] [id number] [address] [place] [phone] Sep, Bilateral otitis media, unsp ecified chronicity, unspecified otitis media type H66.93 [facility] [address] [id number] [address] [place] [address] [id number] Sep, Dental examination Z01.20 [facility] [address] [place] [id number] [address] [place] [address] [id number] 16 Aug, 2015 Dental examination V72.2 [place] [address] [address] 14 Aug, 2015 Essential hypertension I10 a nd Muscle cramping R25.2 [place] [address] [place] [id number] 09 Aug, 2015 Tension-type headache, not i ntractable, unspecified chronicity pattern G44.209 ; Muscle cramping R25.2 and Right leg pain M79.604 [facility] [address] [id number] July, Dental examination Z01.20 [facility] [address] [id number] July, Encounter for dental examina tion and cleaning without abnormal findings Z01.20 and Dental caries K02.9 [facility] [id number] [place] [address] [id number] Jun, Encounter for dental examina tion Z01.20 [facility] [address] [address] Apr, [facility] [address] [place] [id number] [address] [place] [phone] Apr, Bronchitis J40 [place] [address] [address] 09 Feb, 2015 Hyperlipemia E78.5 ; Carotid arterial disease I77.9 ; Tobacco use Z72.0 ; Hypertension I10 ; RBBB I45.10 and CVA (cerebral vascular accident) I63.9 [place] [address] [place] [id number] [address] [place] [address] 03 Feb, 2015 Status post CVA Z86.73 ; Dys function of right eustachian tube H69.81 and Essential hypertension I10 [place] [address] [place] [id number] [address] [place] [address] 02 Dec, 2014 Encounter for immunization Z [address] [address] Oct, PVD (peripheral vascular dis ease) 443.9 and Weight loss 783.[address] [address] Oct, PVD (peripheral vascular dis ease) 443.9 and Weight loss 783.[address] [address] Aug, Hyperlipidemia 272.4 ; Carot id arterial disease 447.9 ; Tobacco dependency 305.1 ; Hypertension 401.9 ; RBBB 426.4 and CVA (cerebral infarction) 434.[address] [address] Aug, [address] [address] Aug, Pseudoaneurysm following pro cedure 997.[address] [address] July, Chest pain, unspecified 786. 50 ; [...] for prophylactic vaccination and inoculation, Influenza V04.81 [facility] [address] [id number] [address] [place] [id number] 14 Jun, 2014 [facility] [address] [id number] [address] [place] [phone] Jun, [facility] [address] [id number] [address] [place] [phone] May, [facility] [address] [id number] [address] [place] [id number] May, [facility] [address] [id number] [address] [place] [phone] May, [facility] [address] [id number] [address] [place] [phone] May, [facility] [address] [id number] [address] [place] [phone] Mar, [facility] [address] [id number] [address] [place] [phone] Mar, [facility] [address] [id number] [address] [place] [phone] Mar, [facility] [address] [id number] [address] [place] [phone] Mar, [facility] [address] [id number] [address] [place] [phone] Mar, [facility] [address] [id number] [address] [place] [phone] Mar, [facility] [address] [id number] [address] [place] [phone] Mar, [facility] [address] [id number] [address] [place] [phone] Mar, [facility] [address] [id number] [address] [place] [address], [place] [address] Mar, [facility] [address] [id number] [address] [place] [address], [place] [address] Mar, [facility] [address] [id number] [address] [place] [address], [place] [address] Feb, [facility] [address] [id number] [address] [place] [address], [place] [address] Feb, [facility] [address] [id number] [address] [place] [address], [place] [address] Feb, [facility] [address] [id number] [address] [place] [address], [place] [address] Feb, [facility] [address] [id number] [address] [place] [address], [place] [address] Feb, [facility] [address] [id number] [address] [place] [address], [place] [address] Feb, [facility] [address] [id number] [address] [place] [address], [place] [address] Feb, [facility] [address] [id number] [address] [place] [address], [place] [address] Feb, [facility] [address] [id number] [address] [place] [address], [place] [address] Jan, [facility] [address] [id number] [address] [place] [address], [place] [address] Jan, [facility] [address] [id number] [address] [place] [address], [place] [address] Nov, [facility] [address] [id number] [address] [place] [address], [place] [address] Nov, [facility] [address] [id number] [address] [place] [address], [place] [address] Sep, [facility] [address] [id number] [address] [place] [address], [place] [address] Sep, [facility] [address] [id number] [facility] [place] [address] Sep, [facility] [address] [id number] [address] [place] [address], [place] [address] Sep, [facility] [address] [id number] [address] [place] [address], [place] [address] Aug, [facility] [address] [id number] [address] [place] [address], [place] [address] Aug, [facility] [address] [id number] [address] [place] [address], [place] [address] Aug, [facility] [address] [id number] [address] [place] [address], [place] [address] Aug, [facility] [address] [id number] [address] [place] [address], [place] [address] Aug, [facility] [address] [id number] [address] [place] [address], [place] [address] Aug, [facility] [address] [id number] [address] [place] [address], [place] [address] July, [facility] [address] [id number] [address] [place] [address], [place] [address] July, [facility] [address] [id number] [address] [place] [address], [place] [address] July, [facility] [address] [id number] [address] [place] [address], [place] [address] July, [facility] [address] [id number] [address] [place] [address], [place] [address] Jun, [facility] [address] [id number] [address] [place] [address], [place] [address] Jun, [facility] [address] [id number] [address] [place] [address], [place] [address] Apr, [facility] [address] [id number] [address] [place] [address], [place] [address] Apr, [facility] [address] [id number] [address] [place] [address], [place] [address] Apr, [facility] [address] [id number] [address] [place] [address], [place] [address] Apr, [facility] [address] [id number] [address] [place] [address], [place] [address] Apr, [facility] [address] [id number] [address] [place] [address], [place] [address] Apr, [facility] [address] [id number] [address] [place] [address], [place] [address] Mar, [facility] [address] [id number] [address] [place] [address], [place] [address] Mar, [facility] [address] [id number] [address] [place] [address], [place] [address] Mar, [facility] [address] [id number] [address] [place] [address], [place] [address] Mar, [facility] [address] [id number] [address] [place] [address], [place] [address] Mar, [facility] [address] [id number] [address] [place] [address], [place] [address] Feb, [facility] [address] [id number] [address] [place] [address], [place] [address] 31 Feb, 2013 [facility] [address] [id number] [address] [place] [address], [place] [address] Feb, [facility] [address] [id number] [address] [place] [address], [place] [address] Feb, [facility] [address] [id number] [address] [place] [address], [place] [address] Feb, [facility] [address] [id number] [address] [place] [address], [place] [address] Feb, [facility] [address] [id number] [address] [place] [address], [place] [address] 06 Feb, 2013 [facility] [address] [id number] [address] [place] [address], [place] [address] Feb, [facility] [address] [id number] [address] [place] [address], [place] [address] Feb, [facility] [address] [id number] [address] [place] [address], [place] [address] Feb, [facility] [address] [id number] [address] [place] [address], [place] [address] Feb, [facility] [address] [id number] [address] [place] [address], [place] [address] Feb, [facility] [address] [id number] [address] [place] [address], [place] [address] Jan, [facility] [address] [id number] [address] [place] [address], [place] [address] Jan, [facility] [address] [id number] [address] [place] [address], [place] [address] Jan, [facility] [address] [id number] [address] [place] [address], [place] [address] Jan, [facility] [address] [id number] [address] [place] [address], [place] [address] Jan, [facility] [address] [id number] [address] [place] [address], [place] [address] Jan, [facility] [address] [id number] [address] [place] [address], [place] [address] Jan, [facility] [address] [id number] [address] [place] [address], [place] [address] Jan, [facility] [address] [id number] [address] [place] [address], [place] [address] Jan, [facility] [address] [id number] [address] [place] [address] [address] Jan, [facility] [address] [id number] [address] [place] [address], [place] [address] Jan, [facility] [address] [id number] [address] [place] [address], [place] [address] Jan, [facility] [address] [id number] [address] [place] [address], [place] [address] Jan, [facility] [address] [id number] [address] [place] [address], [place] [address] Jan, [facility] [address] [id number] [address] [place] [address], [place] [address] Jan, [facility] [address] [id number] [address] [place] [address], [place] [address] Dec, [facility] [address] [id number] [address] [place] [address], [place] [address] Dec, [facility] [address] [id number] [address] [place] [address], [place] [address] Dec, [facility] [address] [id number] [address] [place] [address], [place] [address] Dec, [facility] [address] [id number] [address] [place] [address], [place] [address] Oct, [facility] [address] [id number] [address] [place] [address], [place] [address] Oct, [facility] [address] [id number] [address] [place] [address], [place] [id number] Oct, [facility] [address] [id number] [address] [place] [address], [place] [address] Sep, [facility] [address] [id number] [address] [place] [address], [place] [address] Aug, [facility] [address] [id number] [address] [place] [address], [place] [address] July, [facility] [address] [id number] [address] [place] [address], [place] [address] July, [facility] [address] [id number] [address] [place] [address], [place] [address] July, [facility] [address] [id number] [address] [place] [address], [place] [address] July, [facility] [address] [id number] [address] [place] [address], [place] [address] May, [facility] [address] [id number] [address] [place] [address], [place] [address] May, [facility] [address] [id number] [address] [place] [address], [place] [address] Mar, [facility] [address] [id number] [address] [place] [address], [place] [address] Mar, [facility] [address] [id number] [address] [place] [address], [place] [address] Mar, [facility] [address] [id number] [address] [place] [address], [place] [address] Feb, [facility] [address] [id number] [address] [place] [address], [place] [address] Feb, [facility] [address] [id number] [address] [place] [address], [place] [address] Feb, [facility] [address] [id number] [address] [place] [address], [place] [address] Feb, [facility] [address] [id number] [address] [place] [address], [place] [address] Feb, [facility] [address] [id number] [address] [place] [address], [place] [address] Feb, [facility] [address] [id number] [address] [place] [address], [place] [address] Jan, [facility] [address] [id number] [address] [place] [address], [place] [address] Jan, [facility] [address] [id number] [address] [place] [address], [place] [address] Jan, [facility] [address] [id number] [address] [place] [address], [place] [address] Jan, [facility] [address] [id number] [address] [place] [address], [place] [address] Jan, [facility] [address] [id number] [address] [place] [address], [place] [address] Jan, [facility] [address] [id number] [address] [place] [address], [place] [address] Jan, [facility] [address] [id number] [address] [place] [address], [place] [address] Jan, [facility] [address] [id number] [address] [place] [address], [place] [address] Dec, [facility] [address] [id number] [address] [place] [address], [place] [address] Dec, [facility] [address] [id number] [address] [place] [address], [place] [address] Dec, [facility] [address] [id number] [address] [place] [address], [place] [address] Dec, [facility] [address] [id number] [address] [place] [address], [place] [address] Oct, [facility] [address] [id number] [address] [place] [address], [place] [address] Sep, [facility] [address] [id number] [address] [place] [address], [place] [address] Sep, [facility] [address] [id number] [address] [place] [address], [place] [address] Sep, [facility] [address] [id number] [address] [place] [address], [place] [address] Sep, [facility] [address] [id number] [address] [place] [address], [place] [address] Jun, [facility] [address] [id number] [address] [place] [address], [place] [address] May, [facility] [address] [id number] [address] [place] [address], [place] [address] 14 Apr, 2011 [facility] [address] [id number] [address] [place] [address], [place] [address] Apr, [facility] [address] [id number] [address] [place] [address], [place] [address] Apr, [facility] [address] [id number] [address] [place] [address], [place] [address] Feb, [facility] [address] [id number] [address] [place] [address], [place] [address] Feb, [facility] [address] [id number] [address] [place] [address], [place] [address] Jan, [facility] [address] [id number] [address] [place] [address], [place] [address] Jan, [facility] [address] [id number] [address] [place] [address], [place] [address] Jan, [facility] [address] [id number] [address] [place] [address], [place] [address] 31 Feb, 2010 [facility] [address] [id number] [address] [place] [address], [place] [address] 30 Feb, 2010 [facility] [address] [id number] [address] [place] [address], [place] [address] 30 Feb, 2010 [facility] [address] [id number] [address] [place] [address], [place] [address] 30 Feb, 2010 [facility] [address] [id number] [address] [place] [address], [place] [address] 27 Feb, 2010 [facility] [address] [id number] [address] [place] [address], [place] [address] 23 Feb, 2010 [facility] [address] [id number] [address] [place] [address] [address], [address] [facility] [address] [id number] [address] [place] [phone] Feb, [facility] [address] [id number] [address] [place] [phone] Feb, [facility] [address] [id number] [address] [place] [address] Feb, [facility] [address] [id number] [address] [place] [address] Jan, [facility] [address] [id number] [address] [place] [phone] Dec, [facility] [address] [id number] [address] [place] [phone] Nov, [facility] [address] [id number] [address] [place] [address] Mar, [facility] [address] [id number] [address] [place] [address] Jan, [facility] [address] [id number] [address] [place] [id number] [address], [address] [facility] [address] [id number] [address] [place] [phone] [address], [address] [facility] [address] [id number] [address] [place] [phone] Sep, [facility] [address] [id number] [address] [place] [phone] Jun, [facility] [address] [id number] [address] [place] [phone] Mar, [facility] [address] [id number] [address] [place] [phone] Jan, IMMUNIZATIONS No Known Immunizations SOCIAL HISTORY Never Assessed REASON FOR VISIT PLAN OF CARE VITAL SIGNS MEDICATIONS Unknown [...] cath per [facility]. Burton at [facility]- hypotension 08/08 Hospitalization History Hematochezia-[facility] 07/27/16
--- OUTSIDE RECORDS SUMMARY | 2019-08-06 07:51 | XMS REPORT ---
Author Author Lavern Polo Doctor Organization [facility] Address Unknown Phone Unavailable Care Team Providers Care Transcriber Name Role Phone Migration, Doctor Unavailable Unavailable PROBLEMS Type Condition ICD9-CM Code MME11-NF Code Onset Dates Condition S tatus SNOMED Code Problem Hyperlipemia E78.5 Active 9321450 4 Problem Cataracts, bilateral H26.9 Active 66433609 Problem 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 1977 72908 Problem CVA (cerebral vascular accident) I63.9 Active 734081950 Problem Peripheral vascular disease, unspecified I73.9 Active 894951907 Problem Iron deficiency anemia due to chronic blood loss D 50.0 Active 241553107 Problem Diverticulitis of intestine without perforation or abscess without bleeding, unspecified part of intestinal tract K57.92 Active 845133737 Problem Post-surgical 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 A ctive 19755229 Problem Lymphocytosis D72.820 Active 422160 09 Problem Irritable bowel syndrome with diarrhea K58.0 Active 573258538 Problem Dysfunction of right eustachian tube H69.81 Active 64453259 Problem Essential hypertension I10 Active 34837143 Problem Lung nodule, solitary R91.1 Active 866508899 Problem 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 of 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 Active [id number] Problem Thyroid nodule E04.1 Active 61069 5003 ALLERGIES No Information ENCOUNTERS Encounter Location Date Diagnosis [facility] [id number] [address] [place] [id number] 08 Jun, 2019 Peripheral vascular disease, unspecified I73.9 [facility] [address] [place] [address] 06 Jun, 2019 [facility] [address] [place] [address] May, Irritable bowel syndrome wit h diarrhea K58.0 and Tobacco use Z72.0 [facility] [address] [id number] [address] [place] [address] 10 Apr, 2019 Viral URI with cough J06.9 a nd Fever R50.9 [facility] [address] [address] Mar, Irritable bowel syndrome wit h diarrhea K58.0 and Toe pain, left M79.675 [facility] [address] [address] Mar, Left foot pain M79.672 [facility] [address] [address] Mar, Hyperlipemia E78.5 [place] [address] [address] Jan, Encounter for immunization Z 23 [place] [address] [address] Dec, [facility] [address] [address] Nov, [place] [address] [address] Oct, [facility] [address] [address] Oct, Arthralgia, unspecified join t M25.50 [place] [address] [id number] [address] [place] [address] Oct, Seborrheic keratosis L82.1 [facility] [address] [id number] [address] [place] [address] Oct, [place] [address] [address] Sep, [place] [address] [id number] [place] [address] Sep, Other fatigue R53.83 ; Aleida diasis B37.9 and Arthralgia, unspecified joint M25.50 [facility] [address] [facility] [id number] [address] [place] [address] Jun, Post-surgical 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 [facility] [address] [facility] [id number] [address] [place] [address] May, Post-surgical 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 and Peripheral vascular disease, unspecified I73.9 [facility] [id number] [place] [address] Mar, [facility] [id number] [place] [address] Mar, Post-surgical 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 [facility] [id number] [place] [address] Jan, Nodular thyroid disease E04. 1 ; Lung mass R91.8 ; Iron deficiency anemia due to chronic blood loss D50.0 ; Essential hypertension I10 and 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 of 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 [facility] [id number] [place] [id number] Dec, Dental examination Z01.20 [facility] [id number] [place] [address] Dec, Thyroid nodule E04.1 [facility] [id number] [place] [address] Oct, Lung nodule, solitary R91.1 [facility] [address] [facility] [id number] [address] [place] [address] Oct, [facility] [address] [address] Oct, [facility] [id number] [place] [address] Oct, [facility] [id number] [place] [address] Sep, [place] [address] [place] [address] Aug, [place] [address] [address] July, Arthralgia, unspecified join t M25.50 ; Essential hypertension I10 ; Seborrheic keratosis L82.1 and LLQ abdominal pain R10.32 [place] [address] [address] Feb, Arthralgia, unspecified join t M25.50 [place] [id number] [place] [address] Feb, Arthralgia, unspecified join t M25.50 [place] [address] [address] Dec, Arthralgia, unspecified join t M25.50 [place] [address] [address] Dec, Right flank pain R10.9 ; Lef t foot pain M79.672 ; Arthralgia, unspecified joint M25.50 and Encounter for immunization Z23 [place] [address] [address] 09 Dec, 2016 CVA (cerebral vascular accid ent) I63.9 [place] [address] [address] Dec, RUQ abdominal pain R10.11 [place] [address] [address] 02 Dec, 2016 Right lower quadrant pain R1 0.31 ; Diverticulitis of intestine without perforation or abscess without bleeding, unspecified part of intestinal tract K57.92 and Internal hemorrhoids K64.8 [place] [id number] [place] [address] Nov, [place] [address] [address] Oct, [facility] [address] [facility] [id number] [address] [place] [address] Aug, Iron deficiency anemia due t o chronic blood loss D50.0 [facility] [address] [facility] [id number] [address] [place] [address] Aug, Peripheral vascular disease, unspecified I73.9 and Colitis K52.9 [place] [id number] [place] [address] 14 Aug, 2016 H/O: GI bleed Z87.19 [place] [id number] [place] [address] Aug, CVA (cerebral vascular accid ent) I63.9 [place] [id number] [place] [address] Aug, RUQ abdominal pain R10.11 [facility] [id number] [place] [address] July, RUQ abdominal pain R10.11 an d Lymphocytosis D72.820 [place] [id number] [place] [address] July, [facility] [id number] [place] [address] July, Colitis K52.9 [place] [facility] [address] [id number] July, [facility] [address] [facility] [id number] [address] [place] [address] Jun, Right flank pain R10.9 [facility] [id number] [place] [address] May, Urinary tract infection with out hematuria, site unspecified N39.0 and Right flank pain R10.9 [facility] [id number] [place] [address] Feb, Acute non-recurrent maxillar y sinusitis J01.00 and Need for hepatitis C screening test Z11.59 [facility] [address] [id number] [address] [place] [address] [id number] Jan, Dental examination Z01.20 [facility] [address] [id number] [address] [place] [address] [id number] Dec, Dental examination Z01.20 [facility] [address] [id number] [address] [place] [address] [id number] Dec, Dental examination Z01.20 [facility] [address] [id number] [address] [place] [address] Dec, [facility] [address] [id number] [address] [place] [address] Dec, [facility] [address] [id number] [place] [address] [id number] Dec, Dental examination Z01.20 [facility] [address] [id number] [address] [place] [address] Nov, [facility] [address] [id number] [place] [address] [id number] Nov, Dental examination Z01.20 [facility] [address] [id number] [address] [place] [address] Oct, Arthralgia, unspecified join t M25.50 and Essential hypertension I10 [facility] [address] [id number] [address] [place] [address] Oct, [facility] [address] [id number] [address] [place] [address] Sep, Bilateral otitis media, unsp ecified chronicity, unspecified otitis media type H66.93 [facility] [address] [id number] [address] [place] [address] [id number] Sep, Dental examination Z01.20 [facility] [address] [id number] [place] [address] [id number] 16 Aug, 2015 Dental examination V72.2 [facility] [address] [address] 14 Aug, 2015 Essential hypertension I10 a nd Muscle cramping R25.2 [facility] [id number] [place] [address] 09 Aug, 2015 Tension-type headache, not i ntractable, unspecified chronicity pattern G44.209 ; Muscle cramping R25.2 and Right leg pain M79.604 [facility] [address] [id number] July, Dental examination Z01.20 [facility] [address] [id number] July, Encounter for dental examina tion and cleaning without abnormal findings Z01.20 and Dental caries K02.9 [facility] [id number] [place] [address] [id number] Jun, Encounter for dental examina tion Z01.20 [facility] [address] [address] Apr, [facility] [address] [address] 02 Apr, 2015 Bronchitis J40 [facility] [address] [address] 09 Feb, 2015 Hyperlipemia E78.5 ; Carotid arterial disease I77.9 ; Tobacco use Z72.0 ; Hypertension I10 ; RBBB I45.10 and CVA (cerebral vascular accident) I63.9 [place] [address] [address] 03 Feb, 2015 Status post CVA Z86.73 ; Dys function of right eustachian tube H69.81 and Essential hypertension I10 [facility] [address] [address] Dec, Encounter for immunization Z 23 [place] [id number] [place] [address] Oct, PVD (peripheral vascular dis ease) 443.9 and Weight loss 783.21 [place] [id number] [place] [id number] Oct, PVD (peripheral vascular dis ease) 443.9 and Weight loss 783.21 [place] [id number] [place] [address] Aug, Hyperlipidemia 272.4 ; Carot id arterial disease 447.9 ; Tobacco dependency 305.1 ; Hypertension 401.9 ; RBBB 426.4 and CVA (cerebral infarction) 434.[address] [address] Aug, [address] [address] Aug, Pseudoaneurysm following pro cedure 997.79 [place] [id number] [place] [address] July, Chest pain, unspecified 786. 50 ; [...] for prophylactic vaccination and inoculation, Influenza V04.81 [facility] [address] [id number] [address] [place] [address], [place] [address] 14 Jun, 2014 [facility] [address] [id number] [address] [place] [address], [place] [address] Jun, [facility] [address] [id number] [address] [place] [address], [place] [address] May, [facility] [address] [id number] [address] [place] [address] May, [facility] [address] [id number] [address] [place] [address], [place] [address] May, [facility] [address] [id number] [address] [place] [address], [place] [address] May, [facility] [address] [id number] [address] [place] [address] Mar, [facility] [address] [id number] [address] [place] [address] Mar, [facility] [address] [id number] [address] [place] [address] Mar, [facility] [address] [id number] [address] [place] [address] Mar, [facility] [address] [id number] [address] [place] [address] Mar, [facility] [address] [id number] [address] [place] [address] Mar, [facility] [address] [id number] [address] [place] [address] Mar, [facility] [address] [id number] [address] [place] [address] Mar, [facility] [address] [id number] [address] [place] [address] Mar, [facility] [address] [id number] [address] [place] [address], [place] [address] Mar, [facility] [address] [id number] [address] [place] [address], [place] [address] Feb, [facility] [address] [id number] [address] [place] [address], [place] [address] Feb, [facility] [address] [id number] [address] [place] [address], [place] [address] Feb, [facility] [address] [id number] [address] [place] [address], [place] [address] Feb, [facility] [address] [id number] [address] [place] [address], [place] [address] Feb, [facility] [address] [id number] [address] [place] [address], [place] [address] Feb, [facility] [address] [id number] [address] [place] [address], [place] [address] Feb, [facility] [address] [id number] [address] [place] [address], [place] [address] Feb, [facility] [address] [id number] [address] [place] [address], [place] [address] Jan, [facility] [address] [id number] [address] [place] [address], [place] [address] Jan, [facility] [address] [id number] [address] [place] [address], [place] [address] Nov, [facility] [address] [id number] [address] [place] [address], [place] [address] Nov, [facility] [address] [id number] [address] [place] [address], [place] [address] Sep, [facility] [address] [id number] [address] [place] [address], [place] [address] Sep, [facility] [address] [id number] [address] [place] [address], [place] [address] Sep, [facility] [address] [id number] [address] [place] [address], [place] [address] Sep, [facility] [address] [id number] [address] [place] [address], [place] [address] Aug, [facility] [address] [id number] [address] [place] [address], [place] [address] Aug, [facility] [address] [id number] [address] [place] [address], [place] [address] Aug, [facility] [address] [id number] [address] [place] [address], [place] [address] Aug, [facility] [address] [id number] [address] [place] [address], [place] [address] Aug, [facility] [address] [id number] [address] [place] [address], [place] [address] Aug, [facility] [address] [id number] [address] [place] [address], [place] [address] July, [facility] [address] [id number] [address] [place] [address], [place] [address] July, [facility] [address] [id number] [address] [place] [address], [place] [address] July, [facility] [address] [id number] [address] [place] [address], [place] [address] July, [facility] [address] [id number] [address] [place] [address], [place] [address] Jun, [facility] [address] [id number] [address] [place] [address], [place] [address] Jun, [facility] [address] [id number] [address] [place] [address], [place] [address] Apr, [facility] [address] [id number] [address] [place] [address], [place] [address] Apr, [facility] [address] [id number] [address] [place] [address], [place] [address] Apr, [facility] [address] [id number] [address] [place] [address], [place] [address] Apr, [facility] [address] [id number] [address] [place] [address], [place] [address] Apr, [facility] [address] [id number] [address] [place] [address], [place] [address] Apr, [facility] [address] [id number] [address] [place] [address], [place] [address] Mar, [facility] [address] [id number] [address] [place] [address], [place] [address] Mar, [facility] [address] [id number] [address] [place] [address], [place] [address] Mar, [facility] [address] [id number] [address] [place] [address], [place] [address] Mar, [facility] [address] [id number] [address] [place] [address], [place] [address] Mar, [facility] [address] [id number] [address] [place] [address], [place] [address] Feb, [facility] [address] [id number] [address] [place] [address], [place] [address] 31 Feb, 2013 [facility] [address] [id number] [address] [place] [address], [place] [address] Feb, [facility] [address] [id number] [address] [place] [address], [place] [address] 17 Feb, 2013 [facility] [address] [id number] [address] [place] [address], [place] [address] 10 Feb, 2013 [facility] [address] [id number] [address] [place] [address], [place] [address] 10 Feb, 2013 [facility] [address] [id number] [address] [place], [place] [address] [address] Feb, [facility] [address] [id number] [address] [place] [address], [place] [address] Feb, [facility] [address] [id number] [address] [place] [address], [place] [address] Feb, [facility] [address] [id number] [address] [place] [address], [place] [address] Feb, [facility] [address] [id number] [address] [place] [address], [place] [address] Feb, [facility] [address] [id number] [address] [place] [address], [place] [address] Feb, [facility] [address] [id number] [address] [place] [address], [place] [address] Jan, [facility] [address] [id number] [address] [place] [address], [place] [address] Jan, [facility] [address] [id number] [address] [place] [address], [place] [address] Jan, [facility] [address] [id number] [address] [place] [address], [place] [address] Jan, [facility] [address] [id number] [address] [place] [address], [place] [address] Jan, [facility] [address] [id number] [address] [place] [address] Jan, [facility] [address] [id number] [address] [place] [address] Jan, [facility] [address] [id number] [address] [place] [address], [place] [address] Jan, [facility] [address] [id number] [address] [place] [address], [place] [address] Jan, [facility] [address] [id number] [address] [place] [id number] Jan, [facility] [address] [id number] [address] [place] [address], [place] [address] Jan, [facility] [address] [id number] [address] [place] [address], [place] [address] Jan, [facility] [address] [id number] [address] [place] [address], [place] [address] Jan, [facility] [address] [id number] [address] [place] [address], [place] [address] Jan, [facility] [address] [id number] [address] [place] [address], [place] [address] Jan, [facility] [address] [id number] [address] [place] [address], [place] [address] Dec, [facility] [address] [id number] [address] [place] [address], [place] [address] Dec, [facility] [address] [id number] [address] [place] [address], [place] [address] Dec, [facility] [address] [id number] [address] [place] [address], [place] [address] Dec, [facility] [address] [id number] [address] [place] [address], [place] [address] Oct, [facility] [address] [id number] [address] [place] [address], [place] [address] Oct, [facility] [address] [id number] [address] [place] [address], [place] [address] Oct, [facility] [address] [id number] [address] [place] [address], [place] [address] Sep, [facility] [address] [id number] [address] [place] [address], [place] [address] Aug, [facility] [address] [id number] [address] [place] [address], [place] [address] July, [facility] [address] [id number] [address] [place] [address], [place] [address] July, [facility] [address] [id number] [address] [place] [address], [place] [address] July, [facility] [address] [id number] [address] [place] [address], [place] [address] July, [facility] [address] [id number] [address] [place] [address], [place] [id number] May, [facility] [address] [id number] [address] [place] [address], [place] [address] May, [facility] [address] [id number] [address] [place] [address], [place] [address] Mar, [facility] [address] [id number] [address] [place] [address], [place] [address] Mar, [facility] [address] [id number] [address] [place] [address], [place] [address] Mar, [facility] [address] [id number] [address] [place] [address], [place] [address] Feb, [facility] [address] [id number] [address] [place] [address], [place] [address] Feb, [facility] [address] [id number] [address] [place] [address], [place] [address] Feb, [facility] [address] [id number] [address] [place] [address], [place] [id number] Feb, [facility] [address] [id number] [address] [place] [address], [place] [address] Feb, [facility] [address] [id number] [address] [place] [address], [place] [address] Feb, [facility] [address] [id number] [address] [place] [address], [place] [address] Jan, [facility] [address] [id number] [address] [place] [address], [place] [address] Jan, [facility] [address] [id number] [address] [place] [address], [place] [address] Jan, [facility] [address] [id number] [address] [place] [address], [place] [address] Jan, [facility] [address] [id number] [address] [place] [address], [place] [address] Jan, [facility] [address] [id number] [address] [place] [address], [place] [address] Jan, [facility] [address] [id number] [address] [place] [address], [place] [address] Jan, [facility] [address] [id number] [address] [place] [address], [place] [address] Jan, [facility] [address] [id number] [address] [place] [address], [place] [address] Dec, [facility] [address] [id number] [address] [place] [address], [place] [address] Dec, [facility] [address] [id number] [address] [place] [address], [place] [address] Dec, [facility] [address] [id number] [address] [place] [address], [place] [address] Dec, [facility] [address] [id number] [address] [place] [address], [place] [address] Oct, [facility] [address] [id number] [address] [place] [address], [place] [address] Sep, [facility] [address] [id number] [address] [place] [address], [place] [address] Sep, [facility] [address] [id number] [address] [place] [address], [place] [address] Sep, [facility] [address] [id number] [address] [place] [address], [place] [address] Sep, [facility] [address] [id number] [address] [place] [address], [place] [address] Jun, [facility] [address] [id number] [address] [place] [address], [place] [address] 28 May, 2011 [facility] [address] [id number] [address] [place] [address], [place] [address] 14 Apr, 2011 [facility] [address] [id number] [address] [place] [address], [place] [address] 09 Apr, 2011 [facility] [address] [id number] [address] [place] [address], [place] [address] Apr, [facility] [address] [id number] [address] [place] [address], [place] [address] Feb, [facility] [address] [id number] [address] [place] [address], [place] [address] Feb, [facility] [address] [id number] [address] [place] [address], [place] [address] Jan, [facility] [address] [id number] [address] [place] [address], [place] [address] Jan, [facility] [address] [id number] [address] [place] [address], [place] [address] Jan, [facility] [address] [id number] [address] [place] [address], [place] [address] 31 Feb, 2010 [facility] [address] [id number] [address] [place] [address], [place] [address] 30 Feb, 2010 [facility] [address] [id number] [address] [place] [address], [place] [address] 30 Feb, 2010 [facility] [address] [id number] [address] [place] [address], [place] [address] 30 Feb, 2010 [facility] [address] [id number] [address] [place] [address], [place] [address] 27 Feb, 2010 [facility] [address] [id number] [address] [place] [address], [place] [address] 23 Feb, 2010 [facility] [address] [id number] [address] [place] [address], [place] [address] Feb, [facility] [address] [id number] [address] [place] [id number] Feb, [facility] [address] [id number] [address] [place] [id number] Feb, [facility] [address] [id number] [address] [place] [id number] Feb, [facility] [address] [id number] [address] [place] [id number] Jan, [facility] [address] [id number] [address] [place] [id number] Dec, [facility] [address] [id number] [address] [place] [id number] Nov, [facility] [address] [id number] [address] [place] [id number] Mar, [facility] [address] [id number] [address] [place] [id number] Jan, [facility] [address] [id number] [address] [place] [id number] Dec, [facility] [address] [id number] [address] [place] [id number] Dec, [facility] [address] [id number] [address] [place] [id number] Sep, [facility] [address] [id number] [address] [place] [id number] Jun, [facility] [address] [id number] [address] [place] [id number] Mar, [facility] [address] [id number] [address] [place] [id number] Jan, IMMUNIZATIONS No Known Immunizations SOCIAL HISTORY [...] Heart cath per Dr. Burton at [facility]- hypotension 08/08 Hospitalization History Hematochezia-[facility] 07/27/16
--- OUTSIDE RECORDS SUMMARY | 2019-08-06 07:52 | XMS REPORT ---
Author Author Lavern HUGHES Organization [facility] Address [address] [place] [address] Care Team Providers Care Crew Team Member Name Role Phone DAY HUGHES Unavailable PROBLEMS Type Condition ICD9-CM Code ZUS83-SL Code Onset Dates Condition S tatus SNOMED Code Problem Hyperlipemia E78.5 Active 0101588 4 Problem Cataracts, bilateral H26.9 Active 99564460 Problem 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 2755 85583 Problem CVA (cerebral vascular accident) I63.9 Active 987873930 Problem Peripheral vascular disease, unspecified I73.9 Active 854984359 Problem Iron deficiency anemia due to chronic blood loss D 50.0 Active 931298988 Problem Diverticulitis of intestine without perforation or abscess without bleeding, unspecified part of intestinal tract K57.92 Active 042073362 Problem Post-surgical 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 A ctive 20869654 Problem Lymphocytosis D72.820 Active 342507 09 Problem Irritable bowel syndrome with diarrhea K58.0 Active 965898152 Problem Dysfunction of right eustachian tube H69.81 Active 86744681 Problem Essential hypertension I10 Active 59810225 Problem Lung nodule, solitary R91.1 Active 356557138 Problem 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 of 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 Active [id number] Problem Thyroid nodule E04.1 Active 46835 5005 ALLERGIES No Information ENCOUNTERS Encounter Location Date Diagnosis [facility] [address] [facility] [id number] [address] [place] [phone] Jun, [facility] [address] [facility] [id number] [address] [place] [phone] May, Irritable bowel syndrome wit h diarrhea K58.0 and Tobacco use Z72.0 [facility] [address] [facility] [id number] [address] [place] [phone] Apr, Viral URI with cough J06.9 a nd Fever R50.9 [facility] [address] [facility] [id number] [address] [place] [phone] Mar, Irritable bowel syndrome wit h diarrhea K58.0 and Toe pain, left M79.675 [facility] [address] [facility] [id number] [address] [place] [address] Mar, Left foot pain M79.672 [facility] [address] [facility] [id number] [address] [place] [phone] Mar, Hyperlipemia E78.5 [facility] [address] [place] [id number] [address] [place] [phone] Jan, Encounter for immunization Z 23 [facility] [address] [facility] [id number] [address] [place] [phone] Dec, [facility] [address] [place] [id number] [address] [place] [id number] Nov, [facility] [address] [facility] [id number] [address] [place] [phone] Oct, [facility] [address] [place] [id number] [address] [place] [address] Oct, Arthralgia, unspecified join t M25.50 [facility] [address] [place] [id number] [address] [place] [address] Oct, Seborrheic keratosis L82.1 [facility] [address] [facility] [id number] [address] [place] [phone] Oct, [facility] [address] [place] [id number] [address] [place] [phone] Sep, [facility] [address] [facility] [id number] [address] [place] [phone] Sep, Other fatigue R53.83 ; Aleida diasis B37.9 and Arthralgia, unspecified joint M25.50 [facility] [address] [facility] [id number] [address] [place] [phone] Jun, Post-surgical 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 [facility] [address] [facility] [id number] [address] [place] [phone] May, Post-surgical 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 and Peripheral vascular disease, unspecified I73.9 [facility] [address] [facility] [id number] [address] [place] [phone] Mar, [facility] [address] [facility] [id number] [address] [place] [phone] Mar, Post-surgical 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 [facility] [address] [facility] [id number] [address] [place] [address] Jan, Nodular thyroid disease E04. 1 ; Lung mass R91.8 ; Iron deficiency anemia due to chronic blood loss D50.0 ; Essential hypertension I10 and 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 of 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 [facility] [address] [facility] [id number] [address] [place] [address] [id number] Dec, Dental examination Z01.20 [facility] [address] [place] [id number] [address] [place] [phone] Dec, Thyroid nodule E04.1 [facility] [address] [facility] [id number] [address] [place] [phone] Oct, Lung nodule, solitary R91.1 [facility] [address] [facility] [id number] [address] [place] [phone] Oct, [facility] [address] [facility] [id number] [address] [place] [phone] Oct, [facility] [address] [facility] [id number] [address] [place] [phone] Oct, [facility] [address] [facility] [id number] [address] [place] [phone] Sep, [facility] [address] [place] [id number] [address] [place] [id number] Aug, [place] [address] [place] [id number] [place] [address] July, Arthralgia, unspecified join t M25.50 ; Essential hypertension I10 ; Seborrheic keratosis L82.1 and LLQ abdominal pain R10.32 [place] [address] [address] Feb, Arthralgia, unspecified join t M25.50 [place] [address] [place] [id number] [place] [address] Feb, Arthralgia, unspecified join t M25.50 [place] [address] [address] Dec, Arthralgia, unspecified join t M25.50 [place] [address] [address] Dec, Right flank pain R10.9 ; Lef t foot pain M79.672 ; Arthralgia, unspecified joint M25.50 and Encounter for immunization Z23 [place] [address] [address] Dec, CVA (cerebral vascular accid ent) I63.9 [place] [address] [address] Dec, RUQ abdominal pain R10.11 [place] [address] [place] [id number] [place] [address] Dec, Right lower quadrant pain R1 0.31 ; Diverticulitis of intestine without perforation or abscess without bleeding, unspecified part of intestinal tract K57.92 and Internal hemorrhoids K64.8 [place] [address] [place] [id number] [address] [place] [phone] Nov, [place] [address] [address] Oct, [place] [address] [place] [id number] [address] [place] [address] Aug, Iron deficiency anemia due t o chronic blood loss D50.0 [place] [address] [place] [id number] [address] [place] [address] Aug, Peripheral vascular disease, unspecified I73.9 and Colitis K52.9 [place] [address] [place] [id number] [address] [place] [address] 14 Aug, 2016 H/O: GI bleed Z87.19 [place] [address] [place] [id number] [address] [place] [phone] 07 Aug, 2016 CVA (cerebral vascular accid ent) I63.9 [place] [address] [place] [id number] [address] [place] [address] Aug, RUQ abdominal pain R10.11 [place] [address] [place] [id number] [address] [place] [address] July, RUQ abdominal pain R10.11 an d Lymphocytosis D72.820 [place] [address] [place] [id number] [address] [place] [address] July, [place] [address] [place] [id number] [address] [place] [address] July, Colitis K52.9 [facility] [address] [place] [id number] [place] [id number] July, [place] [address] [facility] [id number] [address] [place] [phone] Jun, Right flank pain R10.9 [place] [address] [place] [id number] [address] [place] [id number] May, Urinary tract infection with out hematuria, site unspecified N39.0 and Right flank pain R10.9 [place] [address] [facility] [id number] [address] [place] [phone] Feb, Acute non-recurrent maxillar y sinusitis J01.00 and Need for hepatitis C screening test Z11.59 [facility] [address] [id number] [address] [place] [id number] Jan, Dental examination Z01.20 [facility] [address] [id number] [address] [place] [address] [id number] Dec, Dental examination Z01.20 [facility] [address] [id number] [place] [address] [id number] Dec, Dental examination Z01.20 [facility] [address] [id number] [address] [place] [phone] Dec, [facility] [address] [id number] [address] [place] [phone] Dec, [facility] [address] [id number] [place] [address] [id number] Dec, Dental examination Z01.20 [facility] [address] [id number] [address] [place] [id number] Nov, [facility] [address] [id number] [place] [address] [id number] Nov, Dental examination Z01.20 [facility] [address] [id number] [address] [place] [phone] Oct, Arthralgia, unspecified join t M25.50 and Essential hypertension I10 [facility] [address] [id number] [address] [place] [phone] Oct, [facility] [address] [id number] [address] [place] [phone] Sep, Bilateral otitis media, unsp ecified chronicity, unspecified otitis media type H66.93 [facility] [address] [id number] [address] [place] [address] [id number] Sep, Dental examination Z01.20 [facility] [address] [id number] [address] [place] [address] [id number] Aug, Dental examination V72.2 [facility] [address] [place] [id number] [address] [place] [phone] 14 Aug, 2015 Essential hypertension I10 a nd Muscle cramping R25.2 [facility] [address] [place] [id number] [place] [address] 09 Aug, 2015 Tension-type headache, not i ntractable, unspecified chronicity pattern G44.209 ; Muscle cramping R25.2 and Right leg pain M79.604 [facility] [address] [place] [id number] [place] [address] [id number] July, Dental examination Z01.20 [facility] [address] [id number] July, Encounter for dental examina tion and cleaning without abnormal findings Z01.20 and Dental caries K02.9 [facility] [address] [id number] Jun, Encounter for dental examina tion Z01.20 [facility] [address] [address] Apr, [facility] [address] [address] 02 Apr, 2015 Bronchitis J40 [facility] [address] [address] 09 Feb, 2015 Hyperlipemia E78.5 ; Carotid arterial disease I77.9 ; Tobacco use Z72.0 ; Hypertension I10 ; RBBB I45.10 and CVA (cerebral vascular accident) I63.9 [place] [address] [address] 03 Feb, 2015 Status post CVA Z86.73 ; Dys function of right eustachian tube H69.81 and Essential hypertension I10 [facility] [address] [address] Dec, Encounter for immunization Z 23 [place] [address] [place] [id number] [address] [place] [phone] Oct, PVD (peripheral vascular dis ease) 443.9 and Weight loss 783.21 [place] [address] [place] [id number] [address] [place] [address] Oct, PVD (peripheral vascular dis ease) 443.9 and Weight loss 783.21 [place] [address] [address] Aug, Hyperlipidemia 272.4 ; Carot id arterial disease 447.9 ; Tobacco dependency 305.1 ; Hypertension 401.9 ; RBBB 426.4 and CVA (cerebral infarction) 434.91 [place] [address] [address] Aug, [address] [address] Aug, Pseudoaneurysm following pro cedure 997.[address] [address] July, Chest pain, unspecified 786. 50 ; [...] for prophylactic vaccination and inoculation, Influenza V04.81 [facility] [address] [id number] [address] [place] [address], [place] [address] 14 Jun, 2014 [facility] [address] [id number] [address] [place] [address], [place] [address] Jun, [facility] [address] [id number] [address] [place] [address], [place] [address] May, [facility] [address] [id number] [address] [place] [address], [place] [address] May, [facility] [address] [id number] [address] [place] [address], [place] [address] May, [facility] [address] [id number] [address] [place] [address], [place] [address] May, [facility] [address] [id number] [address] [place] [address], [place] [address] Mar, [facility] [address] [id number] [address] [place] [id number] Mar, [facility] [address] [id number] [address] [place] [address], [place] [address] Mar, [facility] [address] [id number] [address] [place] [phone] Mar, [facility] [address] [id number] [address] [place] [phone] Mar, [facility] [address] [id number] [address] [place] [phone] Mar, [facility] [address] [id number] [address] [place] [address], [place] [address] Mar, [facility] [address] [id number] [address] [place] [phone] Mar, [facility] [address] [id number] [address] [place] [phone] Mar, [facility] [address] [id number] [address] [place] [address], [place] [address] Mar, [facility] [address] [id number] [address] [place] [address], [place] [address] Feb, [facility] [address] [id number] [address] [place] [address], [place] [address] Feb, [facility] [address] [id number] [address] [place] [address], [place] [address] Feb, [facility] [address] [id number] [address] [place] [address], [place] [address] Feb, [facility] [address] [id number] [address] [place] [address], [place] [address] Feb, [facility] [address] [id number] [address] [place] [address], [place] [address] Feb, [facility] [address] [id number] [address] [place] [address], [place] [address] Feb, [facility] [address] [id number] [address] [place] [address], [place] [address] Feb, [facility] [address] [id number] [address] [place] [address], [place] [address] Jan, [facility] [address] [id number] [address] [place] [address], [place] [address] Jan, [facility] [address] [id number] [address] [place] [address], [place] [address] Nov, [facility] [address] [id number] [address] [place] [address], [place] [address] Nov, [facility] [address] [id number] [address] [place] [address], [place] [address] Sep, [facility] [address] [id number] [address] [place] [address], [place] [address] Sep, [facility] [address] [id number] [address] [place] [address], [place] [address] Sep, [facility] [address] [id number] [address] [place] [address], [place] [address] Sep, [facility] [address] [id number] [address] [place] [address], [place] [address] Aug, [facility] [address] [id number] [address] [place] [address], [place] [address] Aug, [facility] [address] [id number] [address] [place] [address], [place] [address] Aug, [facility] [address] [id number] [address] [place] [address], [place] [address] Aug, [facility] [address] [id number] [address] [place] [address], [place] [address] Aug, [facility] [address] [id number] [address] [place] [address], [place] [address] Aug, [facility] [address] [id number] [address] [place] [address], [place] [address] July, [facility] [address] [id number] [address] [place] [address], [place] [address] July, [facility] [address] [id number] [address] [place] [address], [place] [address] July, [facility] [address] [id number] [address] [place] [address], [place] [address] July, [facility] [address] [id number] [address] [place] [address], [place] [address] Jun, [facility] [address] [id number] [address] [place] [address], [place] [address] Jun, [facility] [address] [id number] [address] [place] [address], [place] [address] Apr, [facility] [address] [id number] [address] [place] [address], [place] [address] Apr, [facility] [address] [id number] [address] [place] [address], [place] [address] Apr, [facility] [address] [id number] [address] [place] [address], [place] [address] Apr, [facility] [address] [id number] [address] [place] [address], [place] [address] Apr, [facility] [address] [id number] [address] [place] [address], [place] [address] Apr, [facility] [address] [id number] [address] [place] [address], [place] [address] Mar, [facility] [address] [id number] [address] [place] [address], [place] [address] Mar, [facility] [address] [id number] [address] [place] [address], [place] [address] Mar, [facility] [address] [id number] [address] [place] [address], [place] [address] Mar, [facility] [address] [id number] [address] [place] [address], [place] [address] Mar, [facility] [address] [id number] [address] [place] [address], [place] [address] Feb, [facility] [address] [id number] [address] [place] [address], [place] [address] Feb, [facility] [address] [id number] [address] [place] [address], [place] [address] Feb, [facility] [address] [id number] [address] [place] [address], [place] [address] 17 Feb, 2013 [facility] [address] [id number] [address] [place] [address], [place] [address] 10 Feb, 2013 [facility] [address] [id number] [address] [place] [address], [place] [address] 10 Feb, 2013 [facility] [address] [id number] [address] [place] [address], [place] [address] 06 Feb, 2013 [facility] [address] [id number] [address] [place] [address], [place] [address] Feb, [facility] [address] [id number] [address] [place] [address], [place] [address] Feb, [facility] [address] [id number] [address] [place] [address], [place] [address] Feb, [facility] [address] [id number] [address] [place] [address], [place] [address] Feb, [facility] [address] [id number] [address] [place] [address], [place] [address] Feb, [facility] [address] [id number] [address] [place] [address], [place] [address] Jan, [facility] [address] [id number] [address] [place] [address], [place] [address] Jan, [facility] [address] [id number] [address] [place] [address], [place] [address] Jan, [facility] [address] [id number] [address] [place] [address], [place] [address] Jan, [facility] [address] [id number] [address] [place] [address], [place] [address] Jan, [facility] [address] [id number] [address] [place] [address], [place] [address] Jan, [facility] [address] [id number] [address] [place] [address], [place] [address] Jan, [facility] [address] [id number] [address] [place] [address], [place] [address] Jan, [facility] [address] [id number] [address] [place] [address], [place] [address] Jan, [facility] [address] [id number] [address] [place] [address], [place] [address] Jan, [facility] [address] [id number] [address] [place] [address] [address] Jan, [facility] [address] [id number] [address] [place] [address], [place] [address] Jan, [facility] [address] [id number] [address] [place] [address], [place] [address] Jan, [facility] [address] [id number] [address] [place] [address], [place] [address] Jan, [facility] [address] [id number] [address] [place] [address], [place] [address] Jan, [facility] [address] [id number] [address] [place] [address], [place] [address] Dec, [facility] [address] [id number] [address] [place] [address], [place] [address] Dec, [facility] [address] [id number] [address] [place] [address], [place] [address] Dec, [facility] [address] [id number] [address] [place] [address], [place] [address] Dec, [facility] [address] [id number] [address] [place] [address], [place] [address] Oct, [facility] [address] [id number] [address] [place] [address], [place] [address] Oct, [facility] [address] [id number] [address] [place] [address], [place] [address] Oct, [facility] [address] [id number] [address] [place] [id number] Sep, [facility] [address] [id number] [address] [place] [address], [place] [address] Aug, [facility] [address] [id number] [address] [place] [address], [place] [address] July, [facility] [address] [id number] [address] [place] [address], [place] [address] July, [facility] [address] [id number] [address] [place] [address], [place] [address] July, [facility] [facility] [address] [id number] [address] [place] [address], [place] [id number] July, [facility] [address] [id number] [address] [place] [address], [place] [address] May, [facility] [address] [id number] [address] [place] [address], [place] [address] May, [facility] [address] [id number] [address] [place] [address], [place] [address] Mar, [facility] [address] [id number] [address] [place] [address], [place] [id number] Mar, [facility] [address] [id number] [address] [place] [address], [place] [address] Mar, [facility] [address] [id number] [address] [place] [address], [place] [address] Feb, [facility] [address] [id number] [address] [place] [address], [place] [address] Feb, [facility] [address] [id number] [address] [place] [address], [place] [address] Feb, [facility] [address] [id number] [address] [place] [address], [place] [id number] Feb, [facility] [address] [id number] [address] [place] [address], [place] [address] Feb, [facility] [address] [id number] [address] [place] [address], [place] [address] Feb, [facility] [address] [id number] [address] [place] [address], [place] [id number] Jan, [facility] [address] [id number] [address] [place] [address], [place] [address] Jan, [facility] [address] [id number] [address] [place] [address], [place] [address] Jan, [facility] [address] [id number] [address] [place] [address], [place] [address] Jan, [facility] [address] [id number] [address] [place] [address], [place] [address] Jan, [facility] [address] [id number] [address] [place] [address], [place] [address] Jan, [facility] [address] [id number] [address] [place] [address], [place] [address] Jan, [facility] [address] [id number] [address] [place] [address], [place] [address] Jan, [facility] [address] [id number] [address] [place] [address], [place] [address] Dec, [facility] [address] [id number] [address] [place] [address], [place] [id number] Dec, [facility] [address] [id number] [address] [place] [address], [place] [address] Dec, [facility] [address] [id number] [address] [place] [address], [place] [address] Dec, [facility] [address] [id number] [address] [place] [address], [place] [address] Oct, [facility] [address] [id number] [address] [place] [address], [place] [address] Sep, [facility] [address] [id number] [address] [place] [address], [place] [address] Sep, [facility] [address] [id number] [address] [place] [address], [place] [address] Sep, [facility] [address] [id number] [address] [place] [address], [place] [address] Sep, [facility] [address] [id number] [address] [place] [address], [place] [address] Jun, [facility] [address] [id number] [address] [place] [address], [place] [address] May, [facility] [address] [id number] [address] [place] [address], [place] [address] 14 Apr, 2011 [facility] [address] [id number] [address] [place] [address], [place] [address] Apr, [facility] [address] [id number] [address] [place] [address], [place] [address] Apr, [facility] [address] [id number] [address] [place] [address], [place] [address] Feb, [facility] [address] [id number] [address] [place] [address], [place] [address] Feb, [facility] [address] [id number] [address] [place] [address], [place] [address] Jan, [facility] [address] [id number] [address] [place] [address], [place] [address] Jan, [facility] [address] [id number] [address] [place] [address], [place] [address] Jan, [facility] [address] [id number] [address] [place] [address], [place] [address] 31 Feb, 2010 [facility] [address] [id number] [address] [place] [address], [place] [address] 30 Feb, 2010 [facility] [address] [id number] [address] [place] [address], [place] [address] 30 Feb, 2010 [facility] [address] [id number] [address] [place] [address], [place] [address] 30 Feb, 2010 [facility] [address] [id number] [address] [place] [address], [place] [address] 27 Feb, 2010 [facility] [address] [id number] [address] [place] [address], [place] [address] 23 Feb, 2010 [facility] [address] [id number] [address] [place] [address], [place] [address] 20 Feb, 2010 [facility] [address] [id number] [address] [place] [id number] 18 Feb, 2010 [facility] [address] [id number] [address] [place] [phone] Feb, [facility] [address] [id number] [address] [place] [phone] Feb, [facility] [address] [id number] [address] [place] [id number] Jan, [facility] [address] [id number] [address] [place] [id number] Dec, [facility] [address] [id number] [address] [place] [id number] Nov, [facility] [address] [id number] [address] [place] [id number] Mar, [facility] [address] [id number] [address] [place] [phone] Jan, [facility] [address] [id number] [address] [place] [id number] Dec, [facility] [address] [id number] [address] [place] [phone] Dec, [facility] [address] [id number] [address] [place] [id number] Sep, [facility] [address] [id number] [address] [place] [phone] Jun, [facility] [address] [id number] [address] [place] [id number] Mar, [facility] [address] [id number] [address] [place] [phone] Jan, IMMUNIZATIONS No Known Immunizations SOCIAL HISTORY Never Assessed REASON FOR VISIT PLAN OF CARE VITAL SIGNS Height 57 in 2013-01-29 Weight 146 lbs 2013-01-29 Temperature 98 degrees Fahrenheit 2013-01-29 Heart Rate 72 bpm 2013-01-29 Respiratory Rate 16 2013-01-29 Blood pressure systolic 130 mmHg 2013-01-29 Blood pressure diastolic 78 mmHg 2013-01-29 MEDICATIONS Unknown Medications RESULTS No Results PROCEDURES Procedure Date Ordered Result Body Site HEPATIC FUNCTION PANEL Jan 29, 2013 CT ABDOMEN W/DYE Jan 29, 2013 VENIPUNCT, ROUTINE* Jan 29, 2013 INSTRUCTIONS MEDICATIONS ADMINISTERED No Known Medications MEDICAL [...] Heart cath per Dr. Burton at [facility]- hypotension 08/08 Hospitalization History Hematochezia-[facility] 07/27/16
--- OUTSIDE RECORDS SUMMARY | 2019-08-06 07:52 | XMS REPORT ---
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 Name Role Phone DAY HUGHES Unavailable PROBLEMS Type Condition ICD9-CM Code [id number] Code Onset Dates Condition S tatus SNOMED Code Problem Hyperlipemia E78.5 Active 4829981 4 Problem Cataracts, bilateral H26.9 Active 52514776 Problem 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 2755 89387 Problem CVA (cerebral vascular accident) I63.9 Active 772225863 Problem Peripheral vascular disease, unspecified I73.9 Active 526865402 Problem Iron deficiency anemia due to chronic blood loss D 50.0 Active 794281370 Problem Diverticulitis of intestine without perforation or abscess without bleeding, unspecified part of intestinal tract K57.92 Active 537107231 Problem Post-surgical 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 A ctive 04215997 Problem Lymphocytosis D72.820 Active 612670 09 Problem Irritable bowel syndrome with diarrhea K58.0 Active 328339786 Problem Dysfunction of right eustachian tube H69.81 Active 35305532 Problem Essential hypertension I10 Active 07513241 Problem Lung nodule, solitary R91.1 Active 099435802 Problem 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 of 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 Active [id number] Problem Thyroid nodule E04.1 Active 75008 5005 ALLERGIES No Information ENCOUNTERS Encounter Location Date Diagnosis [facility] [address] [id number] [place] [address] Jun, [facility] [address] [id number] [place] [address] May, Irritable bowel syndrome with diarrhea K 58.0 and Tobacco use Z72.0 [facility] [address] [facility] [id number] [address] [place] [address] Apr, Viral URI with cough J06.9 a nd Fever R50.9 [place] [address] [address] Mar, Irritable bowel syndrome with diarrhea K 58.0 and Toe pain, left M79.675 [facility] [address] [facility] [id number] [address] [place] [address] Mar, Left foot pain M79.672 [facility] [address] [address] Mar, Hyperlipemia E78.5 [place] [address] [address] Jan, Encounter for immunization Z23 [place] [address] [address] Dec, [place] [address] [address] Nov, [place] [address] [address] Oct, [place] [address] [address] Oct, Arthralgia, unspecified joint M25.50 [place] [address] [address] Oct, Seborrheic keratosis L82.1 [place] [address] [address] Oct, [place] [address] [address] Sep, [place] [address] [address] Sep, Other fatigue R53.83 ; Candidiasis B37.9 and Arthralgia, unspecified joint M25.50 [place] [address] [address] Jun, Post-surgical 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 [facility] [address] [address] May, Post-surgical 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 and P eripheral vascular disease, unspecified I73.9 [facility] [address] [address] Mar, [facility] [address] [address] Mar, Post-surgical 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 [facility] [address] [address] Jan, Nodular thyroid disease E04.1 ; Lung mas s R91.8 ; Iron deficiency anemia due to chronic blood loss D50.0 ; Essential hypertension I10 and 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 of 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 [facility] [address] [id number] [place] [id number] Dec, Dental examination Z01.20 [place] [address] [address] Dec, Thyroid nodule E04.1 [place] [address] [address] Oct, Lung nodule, solitary R91.1 [facility] [address] [address] Oct, [facility] [address] [address] Oct, [facility] [address] [address] Oct, [facility] [address] [address] Sep, [facility] [address] [address] Aug, [facility] [address] [address] July, Arthralgia, unspecified joint M25.50 ; E ssential hypertension I10 ; Seborrheic keratosis L82.1 and LLQ abdominal pain R10.32 [place] [address] [address] Feb, Arthralgia, unspecified joint M25.50 [place] [address] [address] Feb, Arthralgia, unspecified joint M25.50 [place] [address] [address] Dec, Arthralgia, unspecified joint M25.50 [place] [address] [address] Dec, Right flank pain R10.9 ; Left foot pain M79.672 ; Arthralgia, unspecified joint M25.50 and Encounter for immunization Z23 [address] [address] Dec, CVA (cerebral vascular accident) I63.9 [place] [address] [address] Dec, RUQ abdominal pain R10.[address] [address] Dec, Right lower quadrant pain R10.31 ; Diver ticulitis of intestine without perforation or abscess without bleeding, unspecified part of intestinal tract K57.92 and Internal hemorrhoids K64.8 [place] [address] [address] Nov, [address] [address] Oct, [address] [address] Aug, Iron deficiency anemia due to chronic bl ood loss D50.[address] [address] Aug, Peripheral vascular disease, unspecified I73.9 and Colitis K52.9 [facility] [address] [address] 14 Aug, 2016 H/O: GI bleed Z87.19 [facility] [address] [address] 07 Aug, 2016 CVA (cerebral vascular accident) I63.9 [place] [address] [address] 01 Aug, 2016 RUQ abdominal pain R10.11 [place] [address] [address] July, RUQ abdominal pain R10.11 and Lymphocyto sis D72.820 [place] [address] [address] July, [place] [address] [address] July, Colitis K52.9 [facility] [id number] [place] [id number] July, [place] [address] [address] Jun, Right flank pain R10.9 [place] [address] [address] May, Urinary tract infection without hematuri a, site unspecified N39.0 and Right flank pain R10.9 [facility] [address] [address] Feb, Acute non-recurrent maxillary sinusitis J01.00 and Need for hepatitis C screening test Z11.59 [facility] [address] [id number] Jan, Dental examination Z01.20 [facility] [address] [id number] Dec, Dental examination Z01.20 [facility] [address] [id number] Dec, Dental examination Z01.20 [facility] [address] [address] Dec, [facility] [address] [address] Dec, [facility] [address] [id number] Dec, Dental examination Z01.20 [facility] [address] [address] Nov, [facility] [address] [id number] Nov, Dental examination Z01.20 [facility] [address] [address] Oct, Arthralgia, unspecified joint M25.50 and Essential hypertension I10 [facility] [address] [address] Oct, [facility] [address] [facility] [id number] [address] [place] [address] Sep, Bilateral otitis media, unsp ecified chronicity, unspecified otitis media type H66.93 [facility] [address] [id number] Sep, Dental examination Z01.20 [facility] [address] [id number] Aug, Dental examination V72.2 [facility] [address] [address] 14 Aug, 2015 Essential hypertension I10 and Muscle cr amping R25.2 [facility] [address] [address] 09 Aug, 2015 Tension-type headache, not intractable, unspecified chronicity pattern G44.209 ; Muscle cramping R25.2 and Right leg pain M79.604 [facility] [address] [id number] July, Dental examination Z01.20 [facility] [address] [id number] July, Encounter for dental examination and jitendra aning without abnormal findings Z01.20 and Dental caries K02.9 [facility] [address] [id number] Jun, Encounter for dental examination Z01.20 [facility] [address] [address] Apr, [facility] [address] [facility] [id number] [address] [place] [address] 02 Apr, 2015 Bronchitis J40 [place] [address] [address] 09 Feb, 2015 Hyperlipemia E78.5 ; Carotid arterial di sease I77.9 ; Tobacco use Z72.0 ; Hypertension I10 ; RBBB I45.10 and CVA (cerebral vascular accident) I63.9 [place] [address] [address] 03 Feb, 2015 Status post CVA Z86.73 ; Dysfunction of right eustachian tube H69.81 and Essential hypertension I10 [place] [address] [address] 02 Dec, 2014 Encounter for immunization Z23 [place] [address] [address] Oct, PVD (peripheral vascular disease) 443.9 and Weight loss 783.21 [place] [address] [address] 24 Oct, 2014 PVD (peripheral vascular disease) 443.9 and Weight loss 783.21 [place] [address] [address] Aug, Hyperlipidemia 272.4 ; Carotid arterial disease 447.9 ; Tobacco dependency 305.1 ; Hypertension 401.9 ; RBBB 426.4 and CVA (cerebral infarction) 434.91 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.7 9 [place] [address] [address] July, Chest pain, unspecified 786.50 ; Occlusi on and stenosis of carotid artery without mention [...] for prophylactic vaccination and inoculation, Influenza V04.81 [place] [address] [address] Jun, [place] [address] [address] Jun, [place] [address] [address] May, [place] [address] [address] May, [place] [address] [address] May, [place] [address] [address] May, [facility] [address] [id number] [place] [address] Mar, [facility] [address] [id number] [place] [address] Mar, [facility] [address] [id number] [place] [address] Mar, [facility] [address] [id number] [place] [address] Mar, [facility] [address] [id number] [place] [address] Mar, [facility] [address] [id number] [place] [address] Mar, [facility] [address] [id number] [place] [address] Mar, [facility] [address] [id number] [place] [address] Mar, [facility] [address] [id number] [place] [address] Mar, [facility] [address] [id number] [place] [address] Mar, [facility] [address] [id number] [place] [address] Feb, [facility] [address] [id number] [place] [address] Feb, [facility] [address] [id number] [place] [address] Feb, [facility] [address] [id number] [place] [address] Feb, [facility] [address] [id number] [place] [address] Feb, [facility] [address] [id number] [place] [address] Feb, [facility] [address] [id number] [place] [address] Feb, [facility] [address] [facility] [id number] [place] [address] Feb, [facility] [address] [id number] [place] [address] Jan, [facility] [address] [id number] [place] [address] Jan, [facility] [address] [id number] [place] [address] Nov, [facility] [address] [id number] [place] [address] Nov, [facility] [address] [id number] [place] [address] Sep, [facility] [address] [id number] [place] [address] Sep, [facility] [address] [id number] [place] [address] Sep, [facility] [address] [id number] [place] [address] Sep, [facility] [address] [id number] [place] [address] Aug, [facility] [address] [id number] [place] [address] Aug, [facility] [address] [id number] [place] [address] Aug, [facility] [address] [id number] [place] [address] Aug, [facility] [address] [id number] [place] [address] Aug, [facility] [address] [id number] [place] [address] Aug, [facility] [address] [id number] [place] [address] July, [facility] [address] [id number] [place] [address] July, [facility] [address] [id number] [place] [address] July, [facility] [address] [id number] [place] [address] July, [facility] [address] [id number] [place] [address] Jun, [facility] [address] [facility] [id number] [place] [address] Jun, [facility] [address] [id number] [place] [address] Apr, [facility] [address] [id number] [place] [address] Apr, [facility] [address] [id number] [place] [address] Apr, [facility] [address] [id number] [place] [address] Apr, [facility] [address] [id number] [place] [address] Apr, [facility] [address] [id number] [place] [address] Apr, [facility] [address] [id number] [place] [address] Mar, [facility] [address] [id number] [place] [address] Mar, [facility] [address] [id number] [place] [address] Mar, [facility] [address] [id number] [place] [address] Mar, [facility] [address] [id number] [place] [address] Mar, [facility] [address] [id number] [place] [address] 31 Feb, 2013 [facility] [address] [id number] [place] [address] Feb, [facility] [address] [id number] [place] [address] Feb, [facility] [address] [id number] [place] [address] Feb, [facility] [address] [id number] [place] [address] Feb, [facility] [address] [id number] [place] [address] Feb, [facility] [address] [id number] [place] [address] Feb, [facility] [address] [id number] [place] [address] Feb, [facility] [address] [id number] [place] [address] Feb, [facility] [address] [id number] [place] [address] Feb, [facility] [address] [id number] [place] [address] Feb, [facility] [address] [id number] [place] [address] Feb, [facility] [address] [id number] [place] [address] Jan, [facility] [address] [id number] [place] [address] Jan, [facility] [address] [place] [id number] [place] [address] Jan, [facility] [address] [id number] [place] [address] Jan, [facility] [address] [id number] [place] [address] Jan, [facility] [address] [id number] [place] [address] Jan, [facility] [address] [id number] [place] [address] Jan, [facility] [address] [id number] [place] [address] Jan, [facility] [address] [id number] [place] [address] Jan, [facility] [address] [id number] [place] [address] Jan, [facility] [address] [id number] [place] [address] Jan, [facility] [address] [id number] [place] [address] Jan, [facility] [address] [id number] [place] [address] Jan, [facility] [address] [id number] [place] [address] Jan, [facility] [address] [id number] [place] [address] Jan, [facility] [address] [id number] [place] [address] Dec, [facility] [address] [id number] [place] [address] Dec, [facility] [address] [id number] [place] [address] Dec, [facility] [address] [id number] [place] [address] Dec, [facility] [address] [id number] [place] [address] Oct, [facility] [address] [id number] [place] [address] Oct, [facility] [address] [id number] [place] [address] Oct, [facility] [address] [id number] [place] [address] Sep, [facility] [address] [id number] [place] [address] Aug, [facility] [address] [id number] [place] [address] July, [facility] [address] [id number] [place] [address] July, [facility] [address] [id number] [place] [address] July, [facility] [address] [id number] [place] [address] July, [facility] [address] [id number] [place] [address] May, [facility] [address] [id number] [place] [address] May, [facility] [address] [id number] [place] [address] Mar, [facility] [address] [id number] [place] [address] Mar, [facility] [address] [id number] [place] [address] Mar, [facility] [address] [id number] [place] [address] Feb, [facility] [address] [id number] [place] [address] Feb, [facility] [address] [id number] [place] [address] Feb, [facility] [address] [id number] [place] [address] Feb, [facility] [address] [id number] [place] [address] Feb, [facility] [address] [id number] [place] [address] Feb, [facility] [address] [id number] [place] [address] Jan, [facility] [address] [id number] [place] [address] Jan, [facility] [address] [id number] [place] [address] Jan, [facility] [address] [id number] [place] [address] Jan, [facility] [address] [id number] [place] [address] Jan, [facility] [address] [id number] [place] [address] Jan, [facility] [id number] [place] [address] Jan, [facility] [id number] [place] [address] Jan, [facility] [address] [id number] [place] [address] Dec, [facility] [address] [id number] [place] [address] Dec, [facility] [address] [id number] [place] [address] Dec, [facility] [address] [id number] [place] [address] Dec, [facility] [address] [id number] [place] [address] Oct, [facility] [id number] [place] [address] Sep, [facility] [address] [id number] [place] [address] Sep, [facility] [address] [id number] [place] [address] Sep, [facility] [address] [id number] [place] [address] 13 Sep, 2011 [facility] [address] [id number] [place] [address] Jun, [facility] [address] [id number] [place] [address] May, [facility] [address] [id number] [place] [address] 14 Apr, 2011 [facility] [address] [id number] [place] [address] Apr, [facility] [address] [id number] [place] [address] Apr, [facility] [address] [id number] [place] [address] Feb, [facility] [id number] [place] [address] Feb, [facility] [address] [id number] [place] [address] Jan, [facility] [id number] [place] [address] Jan, [facility] [address] [id number] [place] [address] Jan, [facility] [id number] [place] [address] 31 Feb, 2010 [facility] [address] [id number] [place] [address] 30 Feb, 2010 [facility] [address] [id number] [place] [address] 30 Feb, 2010 [facility] [address] [id number] [place] [address] 30 Feb, 2010 [facility] [address] [id number] [place] [address] 27 Feb, 2010 [facility] [address] [id number] [place] [address] Feb, [facility] [id number] [place] [address] Feb, [facility] [id number] [place] [address] Feb, [facility] [id number] [place] [address] Feb, [facility] [id number] [place] [address] Feb, [facility] [id number] [place], [place] [address] Jan, [facility] [address] [id number] [place] [address] Dec, [facility] [address] [id number] [place] [address] Nov, [facility] [address] [id number] [place] [address] Mar, [facility] [address] [id number] [place] [address] Jan, [facility] [id number] [place] [address] 15 Dec, 2008 [facility] [address] [id number] [place] [address] Dec, [facility] [address] [id number] [place] [address] Sep, [facility] [address] [id number] [place] [address] Jun, [facility] [address] [id number] [place] [address] Mar, [facility] [address] [id number] [place] [address] Jan, IMMUNIZATIONS No Known Immunizations SOCIAL HISTORY [...] Heart cath per Dr. Burton at via [facility]- hypotension 08/08 Hospitalization History Hematochezia-[facility] 07/27/16
--- OUTSIDE RECORDS SUMMARY | 2019-08-06 07:52 | XMS REPORT ---
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 Aviation Technician Aircraft Name Role Phone DAY HUGHES Unavailable PROBLEMS Type Condition ICD9-CM Code HFV22-CD Code Onset Dates Condition S tatus SNOMED Code Problem Hyperlipemia E78.5 Active 9786724 4 Problem Cataracts, bilateral H26.9 Active 13720991 Problem 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 2755 31610 Problem CVA (cerebral vascular accident) I63.9 Active 017670061 Problem Peripheral vascular disease, unspecified I73.9 Active 216763249 Problem Iron deficiency anemia due to chronic blood loss D 50.0 Active 390985427 Problem Diverticulitis of intestine without perforation or abscess without bleeding, unspecified part of intestinal tract K57.92 Active 081692270 Problem Post-surgical 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 A ctive 64704812 Problem Lymphocytosis D72.820 Active 386072 09 Problem Irritable bowel syndrome with diarrhea K58.0 Active 088853537 Problem Dysfunction of right eustachian tube H69.81 Active 52889517 Problem Essential hypertension I10 Active 41208745 Problem Lung nodule, solitary R91.1 Active 481197509 Problem 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 of 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 Active 134937749241451 Problem Thyroid nodule E04.1 Active 26938 5005 ALLERGIES No Information ENCOUNTERS Encounter Location Date Diagnosis [facility] [address] [id number] [place] [address] Jun, [facility] [address] [id number] [place] [address] May, Irritable bowel syndrome with diarrhea K 58.0 and Tobacco use Z72.0 [facility] [address] [facility] [id number] [address] [place] [address] Apr, Viral URI with cough J06.9 a nd Fever R50.9 [place] [address] [address] Mar, Irritable bowel syndrome with diarrhea K 58.0 and Toe pain, left M79.675 [facility] [address] [facility] [id number] [address] [place] [address] Mar, Left foot pain M79.672 [facility] [address] [address] Mar, Hyperlipemia E78.5 [place] [address] [address] Jan, Encounter for immunization Z23 [place] [address] [address] Dec, [place] [address] [address] Nov, [place] [address] [address] Oct, [place] [address] [address] Oct, Arthralgia, unspecified joint M25.50 [place] [address] [address] Oct, Seborrheic keratosis L82.1 [place] [address] [address] Oct, [place] [address] [address] Sep, [place] [address] [address] Sep, Other fatigue R53.83 ; Candidiasis B37.9 and Arthralgia, unspecified joint M25.50 [place] [address] [address] Jun, Post-surgical 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 [facility] [address] [address] May, Post-surgical 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 and P eripheral vascular disease, unspecified I73.9 [facility] [address] [address] Mar, [facility] [address] [address] Mar, Post-surgical 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 [facility] [address] [address] Jan, Nodular thyroid disease E04.1 ; Lung mas s R91.8 ; Iron deficiency anemia due to chronic blood loss D50.0 ; Essential hypertension I10 and 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 of 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 [facility] [address] [id number] [place] [id number] Dec, Dental examination Z01.20 [place] [address] [address] Dec, Thyroid nodule E04.1 [place] [address] [address] Oct, Lung nodule, solitary R91.1 [facility] [address] [address] Oct, [facility] [address] [address] Oct, [facility] [address] [address] Oct, [facility] [address] [address] Sep, [facility] [address] [address] Aug, [facility] [address] [address] July, Arthralgia, unspecified joint M25.50 ; E ssential hypertension I10 ; Seborrheic keratosis L82.1 and LLQ abdominal pain R10.32 [place] [address] [address] Feb, Arthralgia, unspecified joint M25.50 [place] [address] [address] Feb, Arthralgia, unspecified joint M25.50 [place] [address] [address] Dec, Arthralgia, unspecified joint M25.50 [place] [address] [address] Dec, Right flank pain R10.9 ; Left foot pain M79.672 ; Arthralgia, unspecified joint M25.50 and Encounter for immunization Z23 [address] [address] Dec, CVA (cerebral vascular accident) I63.9 [place] [address] [address] Dec, RUQ abdominal pain R10.[address] [address] Dec, Right lower quadrant pain R10.31 ; Diver ticulitis of intestine without perforation or abscess without bleeding, unspecified part of intestinal tract K57.92 and Internal hemorrhoids K64.8 [place] [address] [address] Nov, [address] [address] Oct, [address] [address] Aug, Iron deficiency anemia due to chronic bl ood loss D50.[address] [address] Aug, Peripheral vascular disease, unspecified I73.9 and Colitis K52.9 [facility] [address] [address] 14 Aug, 2016 H/O: GI bleed Z87.19 [facility] [address] [address] 07 Aug, 2016 CVA (cerebral vascular accident) I63.9 [place] [address] [address] 01 Aug, 2016 RUQ abdominal pain R10.11 [place] [address] [address] July, RUQ abdominal pain R10.11 and Lymphocyto sis D72.820 [place] [address] [address] July, [place] [address] [address] July, Colitis K52.9 [facility] [address] [id number] [id number] July, [place] [address] [address] Jun, Right flank pain R10.9 [place] [address] [address] May, Urinary tract infection without hematuri a, site unspecified N39.0 and Right flank pain R10.9 [facility] [address] [address] Feb, Acute non-recurrent maxillary sinusitis J01.00 and Need for hepatitis C screening test Z11.59 [facility] [address] [id number] Jan, Dental examination Z01.20 [facility] [address] [id number] Dec, Dental examination Z01.20 [facility] [address] [id number] Dec, Dental examination Z01.20 [facility] [address] [address] Dec, [facility] [address] [address] Dec, [facility] [address] [id number] Dec, Dental examination Z01.20 [facility] [address] [address] Nov, [facility] [address] [id number] Nov, Dental examination Z01.20 [facility] [address] [address] Oct, Arthralgia, unspecified joint M25.50 and Essential hypertension I10 [facility] [address] [address] Oct, [facility] [address] [facility] [id number] [address] [place] [address] Sep, Bilateral otitis media, unsp ecified chronicity, unspecified otitis media type H66.93 [facility] [place] [address] [id number] Sep, Dental examination Z01.20 [facility] [address] [id number] Aug, Dental examination V72.2 [facility] [address] [address] 14 Aug, 2015 Essential hypertension I10 and Muscle cr amping R25.2 [facility] [address] [address] 09 Aug, 2015 Tension-type headache, not intractable, unspecified chronicity pattern G44.209 ; Muscle cramping R25.2 and Right leg pain M79.604 [facility] [address] [id number] July, Dental examination Z01.20 [facility] [address] [id number] July, Encounter for dental examination and jitendra aning without abnormal findings Z01.20 and Dental caries K02.9 [facility] [address] [id number] Jun, Encounter for dental examination Z01.20 [facility] [address] [address] Apr, [facility] [address] [facility] [id number] [address] [place] [address] 02 Apr, 2015 Bronchitis J40 [place] [address] [address] 09 Feb, 2015 Hyperlipemia E78.5 ; Carotid arterial di sease I77.9 ; Tobacco use Z72.0 ; Hypertension I10 ; RBBB I45.10 and CVA (cerebral vascular accident) I63.9 [place] [address] [address] 03 Feb, 2015 Status post CVA Z86.73 ; Dysfunction of right eustachian tube H69.81 and Essential hypertension I10 [place] [address] [address] 02 Dec, 2014 Encounter for immunization Z23 [place] [address] [address] Oct, PVD (peripheral vascular disease) 443.9 and Weight loss 783.21 [place] [address] [address] 24 Oct, 2014 PVD (peripheral vascular disease) 443.9 and Weight loss 783.21 [place] [address] [address] Aug, Hyperlipidemia 272.4 ; Carotid arterial disease 447.9 ; Tobacco dependency 305.1 ; Hypertension 401.9 ; RBBB 426.4 and CVA (cerebral infarction) 434.91 [facility] [address] [address] Aug, [place] [address] [address] Aug, 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.7 9 [place] [address] [address] July, Chest pain, unspecified 786.50 ; Occlusi [...] for prophylactic vaccination and inoculation, Influenza V04.81 [place] [address] [address] Jun, [place] [address] [address] Jun, [place] [address] [address] May, [place] [address] [address] May, [place] [address] [address] May, [place] [address] [address] May, [facility] [address] [id number] [place] [address] Mar, [facility] [address] [id number] [place] [address] Mar, [facility] [address] [id number] [place] [address] Mar, [facility] [address] [id number] [place] [address] Mar, [facility] [address] [id number] [place] [address] Mar, [facility] [address] [id number] [place] [address] Mar, [facility] [address] [id number] [place] [address] Mar, [facility] [address] [id number] [place] [address] Mar, [facility] [address] [id number] [place] [address] Mar, [facility] [address] [id number] [place] [address] Mar, [facility] [address] [id number] [place] [address] Feb, [facility] [address] [id number] [place] [address] Feb, [facility] [address] [id number] [place] [address] Feb, [facility] [address] [id number] [place] [address] Feb, [facility] [address] [id number] [place] [address] Feb, [facility] [address] [id number] [place] [address] Feb, [facility] [address] [id number] [place] [address] Feb, [facility] [address] [facility] [id number] [place] [address] Feb, [facility] [address] [id number] [place] [address] Jan, [facility] [address] [id number] [place] [address] Jan, [facility] [address] [id number] [place] [address] Nov, [facility] [address] [id number] [place] [address] Nov, [facility] [address] [id number] [place] [address] Sep, [facility] [address] [id number] [place] [address] Sep, [facility] [address] [id number] [place] [address] Sep, [facility] [address] [id number] [place] [address] Sep, [facility] [address] [id number] [place] [address] Aug, [facility] [address] [id number] [place] [address] Aug, [facility] [address] [id number] [place] [address] Aug, [facility] [address] [id number] [place] [address] Aug, [facility] [address] [id number] [place] [address] Aug, [facility] [address] [id number] [place] [address] Aug, [facility] [address] [id number] [place] [address] July, [facility] [address] [id number] [place] [address] July, [facility] [address] [id number] [place] [address] July, [facility] [address] [id number] [place] [address] July, [facility] [address] [id number] [place] [address] Jun, [facility] [address] [facility] [id number] [place] [address] Jun, [facility] [address] [id number] [place] [address] Apr, [facility] [address] [id number] [place] [address] Apr, [facility] [address] [id number] [place] [address] Apr, [facility] [address] [id number] [place] [address] Apr, [facility] [address] [id number] [place] [address] Apr, [facility] [address] [id number] [place] [address] Apr, [facility] [address] [id number] [place] [address] Mar, [facility] [address] [id number] [place] [address] Mar, [facility] [address] [id number] [place] [address] Mar, [facility] [address] [id number] [place] [address] Mar, [facility] [address] [id number] [place] [address] Mar, [facility] [address] [id number] [place] [address] 31 Feb, 2013 [facility] [address] [id number] [place] [address] Feb, [facility] [address] [id number] [place] [address] Feb, [facility] [address] [id number] [place] [address] Feb, [facility] [address] [id number] [place] [address] Feb, [facility] [address] [id number] [place] [address] Feb, [facility] [address] [id number] [place] [address] Feb, [facility] [address] [id number] [place] [address] Feb, [facility] [address] [id number] [place] [address] Feb, [facility] [address] [id number] [place] [address] Feb, [facility] [address] [id number] [place] [address] Feb, [facility] [address] [id number] [place] [address] Feb, [facility] [address] [id number] [place] [address] Jan, [facility] [address] [id number] [place] [address] Jan, [facility] [address] [place] [id number] [place] [address] Jan, [facility] [address] [id number] [place] [address] Jan, [facility] [address] [id number] [place] [address] Jan, [facility] [address] [id number] [place] [address] Jan, [facility] [address] [id number] [place] [address] Jan, [facility] [address] [id number] [place] [address] Jan, [facility] [address] [id number] [place] [address] Jan, [facility] [address] [id number] [place] [address] Jan, [facility] [address] [id number] [place] [address] Jan, [facility] [address] [id number] [place] [address] Jan, [facility] [address] [id number] [place] [address] Jan, [facility] [address] [id number] [place] [address] Jan, [facility] [address] [id number] [place] [address] Jan, [facility] [address] [id number] [place] [address] Dec, [facility] [address] [id number] [place] [address] Dec, [facility] [address] [id number] [place] [address] Dec, [facility] [address] [id number] [place] [address] Dec, [facility] [address] [id number] [place] [address] Oct, [facility] [address] [id number] [place] [address] Oct, [facility] [address] [id number] [place] [address] Oct, [facility] [address] [id number] [place] [address] Sep, [facility] [address] [id number] [place] [address] Aug, [facility] [address] [id number] [place] [address] July, [facility] [address] [id number] [place] [address] July, [facility] [address] [id number] [place] [address] July, [facility] [address] [id number] [place] [address] July, [facility] [address] [id number] [place] [address] May, [facility] [address] [id number] [place] [address] May, [facility] [address] [id number] [place] [address] Mar, [facility] [address] [id number] [place] [address] Mar, [facility] [address] [id number] [place] [address] Mar, [facility] [address] [id number] [place] [address] Feb, [facility] [address] [id number] [place] [address] Feb, [facility] [address] [id number] [place] [address] Feb, [facility] [address] [id number] [place] [address] Feb, [facility] [address] [id number] [place] [address] Feb, [facility] [address] [id number] [place] [address] Feb, [facility] [address] [id number] [place] [address] Jan, [facility] [address] [id number] [place] [address] Jan, [facility] [address] [id number] [place] [address] Jan, [facility] [address] [id number] [place] [address] Jan, [facility] [address] [id number] [place] [address] Jan, [facility] [address] [id number] [place] [address] Jan, [facility] [id number] [place] [address] Jan, [facility] [id number] [place] [address] Jan, [facility] [address] [id number] [place] [address] Dec, [facility] [address] [id number] [place] [address] Dec, [facility] [address] [id number] [place] [address] Dec, [facility] [address] [id number] [place] [address] Dec, [facility] [address] [id number] [place] [address] Oct, [facility] [id number] [place] [address] Sep, [facility] [address] [id number] [place] [address] Sep, [facility] [address] [id number] [place] [address] Sep, [facility] [address] [id number] [place] [address] 13 Sep, 2011 [facility] [address] [id number] [place] [address] Jun, [facility] [address] [id number] [place] [address] May, [facility] [address] [id number] [place] [address] 14 Apr, 2011 [facility] [address] [id number] [place] [address] Apr, [facility] [address] [id number] [place] [address] Apr, [facility] [address] [id number] [place] [address] Feb, [facility] [id number] [place] [address] Feb, [facility] [address] [id number] [place] [address] Jan, [facility] [id number] [place] [address] Jan, [facility] [address] [id number] [place] [address] Jan, [facility] [id number] [place] [address] 31 Feb, 2010 [facility] [address] [id number] [place] [address] 30 Feb, 2010 [facility] [address] [id number] [place] [address] 30 Feb, 2010 [facility] [address] [id number] [place] [address] 30 Feb, 2010 [facility] [address] [id number] [place] [address] 27 Feb, 2010 [facility] [address] [id number] [place] [address] Feb, [facility] [id number] [place] [address] Feb, [facility] [id number] [place] [address] Feb, [facility] [id number] [place] [address] Feb, [facility] [id number] [place] [address] Feb, [facility] [id number] [place] [address] Jan, [facility] [id number] [place] [address] Dec, [facility] [id number] [place] [address] Nov, [facility] [id number] [place] [address] Mar, [facility] [id number] [place] [address] Jan, [facility] [id number] [place] [address] 15 Dec, 2008 [facility] [id number] [place] [address] Dec, [facility] [id number] [place] [address] Sep, [facility] [id number] [place] [address] Jun, [facility] [id number] [place] [address] Mar, [facility] [id number] [place] [address] Jan, IMMUNIZATIONS No Known Immunizations SOCIAL HISTORY [...] Heart cath per Dr. Burton at [facility]- hypotension 08/08 Hospitalization History Hematochezia-[facility] 07/27/16
--- OUTSIDE RECORDS SUMMARY | 2019-08-06 07:52 | XMS REPORT ---
Author Author Lavern HUGHES [facility] Address [address] [place] [address] Care Team Providers Care Home Care Companion Name Role Phone DAY HUGHES Unavailable PROBLEMS Type Condition ICD9-CM Code TZE21-MP Code Onset Dates Condition S tatus SNOMED Code Problem Hyperlipemia E78.5 Active 4121459 4 Problem Cataracts, bilateral H26.9 Active 49934309 Problem 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 2755 98000 Problem CVA (cerebral vascular accident) I63.9 Active 485687890 Problem Peripheral vascular disease, unspecified I73.9 Active 598912641 Problem Iron deficiency anemia due to chronic blood loss D 50.0 Active 490297810 Problem Diverticulitis of intestine without perforation or abscess without bleeding, unspecified part of intestinal tract K57.92 Active 007417627 Problem Post-surgical 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 A ctive 46676370 Problem Lymphocytosis D72.820 Active 992880 09 Problem Irritable bowel syndrome with diarrhea K58.0 Active 038037121 Problem Dysfunction of right eustachian tube H69.81 Active 29727840 Problem Essential hypertension I10 Active 42939988 Problem Lung nodule, solitary R91.1 Active 485318103 Problem 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 of 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 Active [id number] Problem Thyroid nodule E04.1 Active 73187 5005 ALLERGIES No Information ENCOUNTERS Encounter Location Date Diagnosis [facility] [address] [id number] [place] [address] Jun, [facility] [address] [id number] [place] [address] May, Irritable bowel syndrome with diarrhea K 58.0 and Tobacco use Z72.0 [facility] [address] [facility] [id number] [address] [place] [address] Apr, Viral URI with cough J06.9 a nd Fever R50.9 [place] [address] [address] Mar, Irritable bowel syndrome with diarrhea K 58.0 and Toe pain, left M79.675 [facility] [address] [facility] [id number] [address] [place] [address] Mar, Left foot pain M79.672 [facility] [address] [address] Mar, Hyperlipemia E78.5 [place] [address] [address] Jan, Encounter for immunization Z23 [place] [address] [address] Dec, [place] [address] [address] Nov, [place] [address] [address] Oct, [place] [address] [address] Oct, Arthralgia, unspecified joint M25.50 [place] [address] [address] Oct, Seborrheic keratosis L82.1 [place] [address] [address] Oct, [place] [address] [address] Sep, [place] [address] [address] Sep, Other fatigue R53.83 ; Candidiasis B37.9 and Arthralgia, unspecified joint M25.50 [place] [address] [address] Jun, Post-surgical 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 [facility] [address] [address] May, Post-surgical 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 and P eripheral vascular disease, unspecified I73.9 [facility] [address] [address] Mar, [facility] [address] [address] Mar, Post-surgical 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 [facility] [address] [address] Jan, Nodular thyroid disease E04.1 ; Lung mas s R91.8 ; Iron deficiency anemia due to chronic blood loss D50.0 ; Essential hypertension I10 and 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 of 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 [facility] [address] [id number] [place] [id number] Dec, Dental examination Z01.20 [place] [address] [address] Dec, Thyroid nodule E04.1 [place] [address] [address] Oct, Lung nodule, solitary R91.1 [facility] [address] [address] Oct, [facility] [address] [address] Oct, [facility] [address] [address] Oct, [facility] [address] [address] Sep, [facility] [address] [address] Aug, [facility] [address] [address] July, Arthralgia, unspecified joint M25.50 ; E ssential hypertension I10 ; Seborrheic keratosis L82.1 and LLQ abdominal pain R10.32 [place] [address] [address] Feb, Arthralgia, unspecified joint M25.50 [place] [address] [address] Feb, Arthralgia, unspecified joint M25.50 [place] [address] [address] Dec, Arthralgia, unspecified joint M25.50 [place] [address] [address] Dec, Right flank pain R10.9 ; Left foot pain M79.672 ; Arthralgia, unspecified joint M25.50 and Encounter for immunization Z23 [address] [address] Dec, CVA (cerebral vascular accident) I63.9 [place] [address] [address] Dec, RUQ abdominal pain R10.[address] [address] Dec, Right lower quadrant pain R10.31 ; Diver ticulitis of intestine without perforation or abscess without bleeding, unspecified part of intestinal tract K57.92 and Internal hemorrhoids K64.8 [place] [address] [address] Nov, [address] [address] Oct, [address] [address] Aug, Iron deficiency anemia due to chronic bl ood loss D50.[address] [address] Aug, Peripheral vascular disease, unspecified I73.[address] [facility] [address] [address] 14 Aug, 2016 H/O: GI bleed Z87.19 [facility] [address] [address] 07 Aug, 2016 CVA (cerebral vascular accident) I63.9 [place] [address] [address] 01 Aug, 2016 RUQ abdominal pain R10.11 [place] [address] [address] July, RUQ abdominal pain R10.11 and Lymphocyto sis D72.820 [place] [address] [address] July, [place] [address] [address] July, Colitis K52.9 [facility] [address] [id number] [id number] July, [place] [address] [address] Jun, Right flank pain R10.9 [place] [address] [address] May, Urinary tract infection without hematuri a, site unspecified N39.0 and Right flank pain R10.9 [facility] [address] [address] Feb, Acute non-recurrent maxillary sinusitis J01.00 and Need for hepatitis C screening test Z11.59 [facility] [address] [id number] Jan, Dental examination Z01.20 [facility] [address] [id number] Dec, Dental examination Z01.20 [facility] [address] [id number] Dec, Dental examination Z01.20 [facility] [address] [address] Dec, [facility] [address] [address] Dec, [facility] [address] [id number] Dec, Dental examination Z01.20 [facility] [address] [address] Nov, [facility] [address] [id number] Nov, Dental examination Z01.20 [facility] [address] [address] Oct, Arthralgia, unspecified joint M25.50 and Essential hypertension I10 [facility] [address] [address] Oct, [facility] [address] [facility] [id number] [address] [place] [address] Sep, Bilateral otitis media, unsp ecified chronicity, unspecified otitis media type H66.93 [facility] [address] [id number] Sep, Dental examination Z01.20 [facility] [address] [id number] Aug, Dental examination V72.2 [facility] [address] [address] 14 Aug, 2015 Essential hypertension I10 and Muscle cr amping R25.2 [facility] [address] [address] 09 Aug, 2015 Tension-type headache, not intractable, unspecified chronicity pattern G44.209 ; Muscle cramping R25.2 and Right leg pain M79.604 [facility] [address] [id number] July, Dental examination Z01.20 [facility] [address] [id number] July, Encounter for dental examination and jitendra aning without abnormal findings Z01.20 and Dental caries K02.9 [facility] [address] [id number] Jun, Encounter for dental examination Z01.20 [facility] [address] [address] Apr, [facility] [address] [facility] [id number] [address] [place] [address] 02 Apr, 2015 Bronchitis J40 [place] [address] [address] 09 Feb, 2015 Hyperlipemia E78.5 ; Carotid arterial di sease I77.9 ; Tobacco use Z72.0 ; Hypertension I10 ; RBBB I45.10 and CVA (cerebral vascular accident) I63.9 [place] [address] [address] 03 Feb, 2015 Status post CVA Z86.73 ; Dysfunction of right eustachian tube H69.81 and Essential hypertension I10 [place] [address] [address] 02 Dec, 2014 Encounter for immunization Z23 [place] [address] [address] Oct, PVD (peripheral vascular disease) 443.9 and Weight loss 783.21 [place] [address] [address] 24 Oct, 2014 PVD (peripheral vascular disease) 443.9 and Weight loss 783.21 [place] [address] [address] Aug, Hyperlipidemia 272.4 ; Carotid arterial disease 447.9 ; Tobacco dependency 305.1 ; Hypertension 401.9 ; RBBB 426.4 and CVA (cerebral infarction) 434.91 [facility] [address] [address] Aug, [place] [address] [address] Aug, 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.7 9 [place] [address] [address] July, Chest pain, unspecified 786.50 ; Occlusi [...] for prophylactic vaccination and inoculation, Influenza V04.81 [place] [address] [address] Jun, [place] [address] [address] Jun, [place] [address] [address] May, [place] [address] [address] May, [place] [address] [address] May, [place] [address] [address] May, [facility] [address] [id number] [place] [address] Mar, [facility] [address] [id number] [place] [address] Mar, [facility] [address] [id number] [place] [address] Mar, [facility] [address] [id number] [place] [address] Mar, [facility] [address] [id number] [place] [address] Mar, [facility] [address] [id number] [place] [address] Mar, [facility] [address] [id number] [place] [address] Mar, [facility] [address] [id number] [place] [address] Mar, [facility] [address] [id number] [place] [address] Mar, [facility] [address] [id number] [place] [address] Mar, [facility] [address] [id number] [place] [address] Feb, [facility] [address] [id number] [place] [address] Feb, [facility] [address] [id number] [place] [address] Feb, [facility] [address] [id number] [place] [address] Feb, [facility] [address] [id number] [place] [address] Feb, [facility] [address] [id number] [place] [address] Feb, [facility] [address] [id number] [place] [address] Feb, [facility] [address] [facility] [id number] [place] [address] Feb, [facility] [address] [id number] [place] [address] Jan, [facility] [address] [id number] [place] [address] Jan, [facility] [address] [id number] [place] [address] Nov, [facility] [address] [id number] [place] [address] Nov, [facility] [address] [id number] [place] [address] Sep, [facility] [address] [id number] [place] [address] Sep, [facility] [address] [id number] [place] [address] Sep, [facility] [address] [id number] [place] [address] Sep, [facility] [address] [id number] [place] [address] Aug, [facility] [address] [id number] [place] [address] Aug, [facility] [address] [id number] [place] [address] Aug, [facility] [address] [id number] [place] [address] Aug, [facility] [address] [id number] [place] [address] Aug, [facility] [address] [id number] [place] [address] Aug, [facility] [address] [id number] [place] [address] July, [facility] [address] [id number] [place] [address] July, [facility] [address] [id number] [place] [address] July, [facility] [address] [id number] [place] [address] July, [facility] [address] [id number] [place] [address] Jun, [facility] [address] [facility] [id number] [place] [address] Jun, [facility] [address] [id number] [place] [address] Apr, [facility] [address] [id number] [place] [address] Apr, [facility] [address] [id number] [place] [address] Apr, [facility] [address] [id number] [place] [address] Apr, [facility] [address] [id number] [place] [address] Apr, [facility] [address] [id number] [place] [address] Apr, [facility] [address] [id number] [place] [address] Mar, [facility] [address] [id number] [place] [address] Mar, [facility] [address] [id number] [place] [address] Mar, [facility] [address] [id number] [place] [address] Mar, [facility] [address] [id number] [place] [address] Mar, [facility] [address] [id number] [place] [address] 31 Feb, 2013 [facility] [address] [id number] [place] [address] Feb, [facility] [address] [id number] [place] [address] Feb, [facility] [address] [id number] [place] [address] Feb, [facility] [address] [id number] [place] [address] Feb, [facility] [address] [id number] [place] [address] Feb, [facility] [address] [id number] [place] [address] Feb, [facility] [address] [id number] [place] [address] Feb, [facility] [address] [id number] [place] [address] Feb, [facility] [address] [id number] [place] [address] Feb, [facility] [address] [id number] [place] [address] Feb, [facility] [address] [id number] [place] [address] Feb, [facility] [address] [id number] [place] [address] Jan, [facility] [address] [id number] [place] [address] Jan, [facility] [address] [place] [id number] [place] [address] Jan, [facility] [address] [id number] [place] [address] Jan, [facility] [address] [id number] [place] [address] Jan, [facility] [address] [id number] [place] [address] Jan, [facility] [address] [id number] [place] [address] Jan, [facility] [address] [id number] [place] [address] Jan, [facility] [address] [id number] [place] [address] Jan, [facility] [address] [id number] [place] [address] Jan, [facility] [address] [id number] [place] [address] Jan, [facility] [address] [id number] [place] [address] Jan, [facility] [address] [id number] [place] [address] Jan, [facility] [address] [id number] [place] [address] Jan, [facility] [address] [id number] [place] [address] Jan, [facility] [address] [id number] [place] [address] Dec, [facility] [address] [id number] [place] [address] Dec, [facility] [address] [id number] [place] [address] Dec, [facility] [address] [id number] [place] [address] Dec, [facility] [address] [id number] [place] [address] Oct, [facility] [address] [id number] [place] [address] Oct, [facility] [address] [id number] [place] [address] Oct, [facility] [address] [id number] [place] [address] Sep, [facility] [address] [id number] [place] [address] Aug, [facility] [address] [id number] [place] [address] July, [facility] [address] [id number] [place] [address] July, [facility] [address] [id number] [place] [address] July, [facility] [address] [id number] [place] [address] July, [facility] [address] [id number] [place] [address] May, [facility] [address] [id number] [place] [address] May, [facility] [address] [id number] [place] [address] Mar, [facility] [address] [id number] [place] [address] Mar, [facility] [address] [id number] [place] [address] Mar, [facility] [address] [id number] [place] [address] Feb, [facility] [address] [id number] [place] [address] Feb, [facility] [address] [id number] [place] [address] Feb, [facility] [address] [id number] [place] [address] Feb, [facility] [address] [id number] [place] [address] Feb, [facility] [address] [id number] [place] [address] Feb, [facility] [address] [id number] [place] [address] Jan, [facility] [address] [id number] [place] [address] Jan, [facility] [address] [id number] [place] [address] Jan, [facility] [address] [id number] [place] [address] Jan, [facility] [address] [id number] [place] [address] Jan, [facility] [address] [id number] [place] [address] Jan, [facility] [address] [place] [id number] [place] [address] Jan, [facility] [address] [place] [address] [id number] [place] [address] Jan, [facility] [address] [id number] [place] [address] Dec, [facility] [address] [facility] [id number] [place] [address] Dec, [facility] [address] [id number] [place] [address] Dec, [facility] [address] [id number] [place] [address] Dec, [facility] [address] [id number] [place] [address] Oct, [facility] [id number] [place] [address] Sep, [facility] [address] [id number] [place] [address] Sep, [facility] [id number] [place] [address] Sep, [facility] [address] [id number] [place] [address] 13 Sep, 2011 [facility] [id number] [place] [address] Jun, [facility] [id number] [place] [address] May, [facility] [address] [id number] [place] [address] 14 Apr, 2011 [facility] [id number] [place] [address] Apr, [facility] [id number] [place] [address] Apr, [facility] [id number] [place] [address] Feb, [facility] [id number] [place] [address] Feb, [facility] [id number] [place] [address] Jan, [facility] [id number] [place] [address] Jan, [facility] [address] [id number] [place] [address] Jan, [facility] [id number] [place] [address] 31 Feb, 2010 [facility] [id number] [place] [address] 30 Feb, 2010 [facility] [id number] [place] [address] 30 Feb, 2010 [facility] [id number] [place] [address] 30 Feb, 2010 [facility] [address] [id number] [place] [address] 27 Feb, 2010 [facility] [address] [id number] [place] [address] Feb, [facility] [id number] [place] [address] Feb, [facility] [id number] [place] [address] Feb, [facility] [id number] [place] [address] Feb, [facility] [id number] [place] [address] Feb, [facility] [id number] [place] [address] Jan, [facility] [id number] [place] [address] Dec, [facility] [id number] [place] [address] Nov, [facility] [id number] [place] [address] Mar, [facility] [id number] [place] [address] Jan, [facility] [id number] [place] [address] [address] [facility] [id number] [place] [address] Dec, [facility] [id number] [place] [address] Sep, [facility] [id number] [place] [address] Jun, [facility] [id number] [place] [address] Mar, [facility] [id number] [place] [address] Jan, IMMUNIZATIONS No Known Immunizations SOCIAL HISTORY Never Assessed REASON FOR VISIT PLAN OF CARE VITAL SIGNS Height 57 in 2013-05-20 Weight 146.31 lbs 2013-05-20 Temperature 97.8 degrees Fahrenheit 2013-05-20 Heart Rate 72 bpm 2013-05-20 Respiratory Rate 18 2013-05-20 Blood pressure systolic 138 mmHg 2013-05-20 Blood pressure diastolic 70 mmHg 2013-05-20 MEDICATIONS Unknown Medications RESULTS No Results PROCEDURES [...] Heart cath per Dr. Burton at [facility] [place] hypotension 08/08 Hospitalization History [facility] 07/27/16
--- OUTSIDE RECORDS SUMMARY | 2019-08-06 07:53 | XMS REPORT ---
Author Author Lavern HUGHES [facility] Address [address] [place] [address] Care Team Providers Care Material Analyst Name Role Phone DAY HUGHES Unavailable PROBLEMS Type Condition ICD9-CM Code TQM42-BX Code Onset Dates Condition S tatus SNOMED Code Problem Hyperlipemia E78.5 Active 7078757 4 Problem Cataracts, bilateral H26.9 Active 96269750 Problem 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 2755 29831 Problem CVA (cerebral vascular accident) I63.9 Active 681675617 Problem Peripheral vascular disease, unspecified I73.9 Active 335626248 Problem Iron deficiency anemia due to chronic blood loss D 50.0 Active 880539106 Problem Diverticulitis of intestine without perforation or abscess without bleeding, unspecified part of intestinal tract K57.92 Active 987159277 Problem Post-surgical 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 A ctive 06224457 Problem Lymphocytosis D72.820 Active 269611 09 Problem Irritable bowel syndrome with diarrhea K58.0 Active 442274309 Problem Dysfunction of right eustachian tube H69.81 Active 15808829 Problem Essential hypertension I10 Active 03858297 Problem Lung nodule, solitary R91.1 Active 698181131 Problem 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 of 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 Active 585459119119870 Problem Thyroid nodule E04.1 Active 49236 5005 ALLERGIES No Information ENCOUNTERS Encounter Location Date Diagnosis [facility] [address] [id number] [place] [address] Jun, [facility] [address] [id number] [place] [address] May, Irritable bowel syndrome with diarrhea K 58.0 and Tobacco use Z72.0 [facility] [address] [facility] [id number] [address] [place] [address] Apr, Viral URI with cough J06.9 a nd Fever R50.9 [place] [address] [address] Mar, Irritable bowel syndrome with diarrhea K 58.0 and Toe pain, left M79.675 [facility] [address] [facility] [id number] [address] [place] [address] Mar, Left foot pain M79.672 [facility] [address] [address] Mar, Hyperlipemia E78.5 [place] [address] [address] Jan, Encounter for immunization Z23 [place] [address] [address] Dec, [place] [address] [address] Nov, [place] [address] [address] Oct, [place] [address] [address] Oct, Arthralgia, unspecified joint M25.50 [place] [address] [address] Oct, Seborrheic keratosis L82.1 [place] [address] [address] Oct, [place] [address] [address] Sep, [place] [address] [address] Sep, Other fatigue R53.83 ; Candidiasis B37.9 and Arthralgia, unspecified joint M25.50 [place] [address] [address] Jun, Post-surgical 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 [facility] [address] [address] May, Post-surgical 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 and P eripheral vascular disease, unspecified I73.9 [facility] [address] [address] Mar, [facility] [address] [address] Mar, Post-surgical 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 [facility] [address] [address] Jan, Nodular thyroid disease E04.1 ; Lung mas s R91.8 ; Iron deficiency anemia due to chronic blood loss D50.0 ; Essential hypertension I10 and 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 of 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 [facility] [address] [id number] [place] [id number] Dec, Dental examination Z01.20 [place] [address] [address] Dec, Thyroid nodule E04.1 [place] [address] [address] Oct, Lung nodule, solitary R91.1 [facility] [address] [address] Oct, [facility] [address] [address] Oct, [facility] [address] [address] Oct, [facility] [address] [address] Sep, [facility] [address] [address] Aug, [facility] [address] [address] July, Arthralgia, unspecified joint M25.50 ; E ssential hypertension I10 ; Seborrheic keratosis L82.1 and LLQ abdominal pain R10.32 [place] [address] [address] Feb, Arthralgia, unspecified joint M25.50 [place] [address] [address] Feb, Arthralgia, unspecified joint M25.50 [place] [address] [address] Dec, Arthralgia, unspecified joint M25.50 [place] [address] [address] Dec, Right flank pain R10.9 ; Left foot pain M79.672 ; Arthralgia, unspecified joint M25.50 and Encounter for immunization Z23 [address] [address] Dec, CVA (cerebral vascular accident) I63.9 [place] [address] [address] Dec, RUQ abdominal pain R10.[address] [address] Dec, Right lower quadrant pain R10.31 ; Diver ticulitis of intestine without perforation or abscess without bleeding, unspecified part of intestinal tract K57.92 and Internal hemorrhoids K64.8 [place] [address] [address] Nov, [address] [address] Oct, [address] [address] Aug, Iron deficiency anemia due to chronic bl ood loss D50.[address] [address] Aug, Peripheral vascular disease, unspecified I73.9 and Colitis K52.9 [facility] [address] [address] 14 Aug, 2016 H/O: GI bleed Z87.19 [facility] [address] [address] 07 Aug, 2016 CVA (cerebral vascular accident) I63.9 [place] [address] [address] 01 Aug, 2016 RUQ abdominal pain R10.11 [place] [address] [address] July, RUQ abdominal pain R10.11 and Lymphocyto sis D72.820 [place] [address] [address] July, [place] [address] [address] July, Colitis K52.9 [facility] [address] [id number] [address] July, [place] [address] [address] Jun, Right flank pain R10.9 [place] [address] [address] May, Urinary tract infection without hematuri a, site unspecified N39.0 and Right flank pain R10.9 [facility] [address] [address] Feb, Acute non-recurrent maxillary sinusitis J01.00 and Need for hepatitis C screening test Z11.59 [facility] [address] [id number] Jan, Dental examination Z01.20 [facility] [address] [id number] Dec, Dental examination Z01.20 [facility] [address] [id number] Dec, Dental examination Z01.20 [facility] [address] [address] Dec, [facility] [address] [address] Dec, [facility] [address] [id number] Dec, Dental examination Z01.20 [facility] [address] [address] Nov, [facility] [address] [id number] Nov, Dental examination Z01.20 [facility] [address] [address] Oct, Arthralgia, unspecified joint M25.50 and Essential hypertension I10 [facility] [address] [address] Oct, [facility] [address] [facility] [id number] [address] [place] [address] Sep, Bilateral otitis media, unsp ecified chronicity, unspecified otitis media type H66.93 [facility] [address] [id number] Sep, Dental examination Z01.20 [facility] [address] [id number] Aug, Dental examination V72.2 [facility] [address] [address] 14 Aug, 2015 Essential hypertension I10 and Muscle cr amping R25.2 [facility] [address] [address] 09 Aug, 2015 Tension-type headache, not intractable, unspecified chronicity pattern G44.209 ; Muscle cramping R25.2 and Right leg pain M79.604 [facility] [address] [id number] July, Dental examination Z01.20 [facility] [address] [id number] July, Encounter for dental examination and jitendra aning without abnormal findings Z01.20 and Dental caries K02.9 [facility] [address] [id number] Jun, Encounter for dental examination Z01.20 [facility] [address] [address] Apr, [facility] [address] [facility] [id number] [address] [place] [address] 02 Apr, 2015 Bronchitis J40 [place] [address] [address] 09 Feb, 2015 Hyperlipemia E78.5 ; Carotid arterial di sease I77.9 ; Tobacco use Z72.0 ; Hypertension I10 ; RBBB I45.10 and CVA (cerebral vascular accident) I63.9 [place] [address] [address] 03 Feb, 2015 Status post CVA Z86.73 ; Dysfunction of right eustachian tube H69.81 and Essential hypertension I10 [place] [address] [address] 02 Dec, 2014 Encounter for immunization Z23 [place] [address] [address] Oct, PVD (peripheral vascular disease) 443.9 and Weight loss 783.21 [place] [address] [address] 24 Oct, 2014 PVD (peripheral vascular disease) 443.9 and Weight loss 783.21 [place] [address] [address] Aug, Hyperlipidemia 272.4 ; Carotid arterial disease 447.9 ; Tobacco dependency 305.1 ; Hypertension 401.9 ; RBBB 426.4 and CVA (cerebral infarction) 434.91 [facility] [address] [address] Aug, [place] [address] [address] Aug, 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.7 9 [place] [address] [address] July, Chest pain, unspecified 786.50 ; Occlusi [...] for prophylactic vaccination and inoculation, Influenza V04.81 [place] [address] [address] Jun, [place] [address] [address] Jun, [place] [address] [address] May, [place] [address] [address] May, [place] [address] [address] May, [place] [address] [address] May, [facility] [address] [id number] [place] [address] Mar, [facility] [address] [id number] [place] [address] Mar, [facility] [address] [id number] [place] [address] Mar, [facility] [address] [id number] [place] [address] Mar, [facility] [address] [id number] [place] [address] Mar, [facility] [address] [id number] [place] [address] Mar, [facility] [address] [id number] [place] [address] Mar, [facility] [address] [id number] [place] [address] Mar, [facility] [address] [id number] [place] [address] Mar, [facility] [address] [id number] [place] [address] Mar, [facility] [address] [id number] [place] [address] Feb, [facility] [address] [id number] [place] [address] Feb, [facility] [address] [id number] [place] [address] Feb, [facility] [address] [id number] [place] [address] Feb, [facility] [address] [id number] [place] [address] Feb, [facility] [address] [id number] [place] [address] Feb, [facility] [address] [id number] [place] [address] Feb, [facility] [address] [facility] [id number] [place] [address] Feb, [facility] [address] [id number] [place] [address] Jan, [facility] [address] [id number] [place] [address] Jan, [facility] [address] [id number] [place] [address] Nov, [facility] [address] [id number] [place] [address] Nov, [facility] [address] [id number] [place] [address] Sep, [facility] [address] [id number] [place] [address] Sep, [facility] [address] [id number] [place] [address] Sep, [facility] [address] [id number] [place] [address] Sep, [facility] [address] [id number] [place] [address] Aug, [facility] [address] [id number] [place] [address] Aug, [facility] [address] [id number] [place] [address] Aug, [facility] [address] [id number] [place] [address] Aug, [facility] [address] [id number] [place] [address] Aug, [facility] [address] [id number] [place] [address] Aug, [facility] [address] [id number] [place] [address] July, [facility] [address] [id number] [place] [address] July, [facility] [address] [id number] [place] [address] July, [facility] [address] [id number] [place] [address] July, [facility] [address] [id number] [place] [address] Jun, [facility] [address] [facility] [id number] [place] [address] Jun, [facility] [address] [id number] [place] [address] Apr, [facility] [address] [id number] [place] [address] Apr, [facility] [address] [id number] [place] [address] Apr, [facility] [address] [id number] [place] [address] Apr, [facility] [address] [id number] [place] [address] Apr, [facility] [address] [id number] [place] [address] Apr, [facility] [address] [id number] [place] [address] Mar, [facility] [address] [id number] [place] [address] Mar, [facility] [address] [id number] [place] [address] Mar, [facility] [address] [id number] [place] [address] Mar, [facility] [address] [id number] [place] [address] Mar, [facility] [address] [id number] [place] [address] 31 Feb, 2013 [facility] [address] [id number] [place] [address] Feb, [facility] [address] [id number] [place] [address] Feb, [facility] [address] [id number] [place] [address] Feb, [facility] [address] [id number] [place] [address] Feb, [facility] [address] [id number] [place] [address] Feb, [facility] [address] [id number] [place] [address] Feb, [facility] [address] [id number] [place] [address] Feb, [facility] [address] [id number] [place] [address] Feb, [facility] [address] [id number] [place] [address] Feb, [facility] [address] [id number] [place] [address] Feb, [facility] [address] [id number] [place] [address] Feb, [facility] [address] [id number] [place] [address] Jan, [facility] [address] [id number] [place] [address] Jan, [facility] [address] [place] [id number] [place] [address] Jan, [facility] [address] [id number] [place] [address] Jan, [facility] [address] [id number] [place] [address] Jan, [facility] [address] [id number] [place] [address] Jan, [facility] [address] [id number] [place] [address] Jan, [facility] [address] [id number] [place] [address] Jan, [facility] [address] [id number] [place] [address] Jan, [facility] [address] [id number] [place] [address] Jan, [facility] [address] [id number] [place] [address] Jan, [facility] [address] [id number] [place] [address] Jan, [facility] [address] [id number] [place] [address] Jan, [facility] [address] [id number] [place] [address] Jan, [facility] [address] [id number] [place] [address] Jan, [facility] [address] [id number] [place] [address] Dec, [facility] [address] [id number] [place] [address] Dec, [facility] [address] [id number] [place] [address] Dec, [facility] [address] [id number] [place] [address] Dec, [facility] [address] [id number] [place] [address] Oct, [facility] [address] [id number] [place] [address] Oct, [facility] [address] [id number] [place] [address] Oct, [facility] [address] [id number] [place] [address] Sep, [facility] [address] [id number] [place] [address] Aug, [facility] [address] [id number] [place] [address] July, [facility] [address] [id number] [place] [address] July, [facility] [address] [id number] [place] [address] July, [facility] [address] [id number] [place] [address] July, [facility] [address] [id number] [place] [address] May, [facility] [address] [id number] [place] [address] May, [facility] [address] [id number] [place] [address] Mar, [facility] [address] [id number] [place] [address] Mar, [facility] [address] [id number] [place] [address] Mar, [facility] [address] [id number] [place] [address] Feb, [facility] [address] [id number] [place] [address] Feb, [facility] [address] [id number] [place] [address] Feb, [facility] [address] [id number] [place] [address] Feb, [facility] [address] [id number] [place] [address] Feb, [facility] [address] [id number] [place] [address] Feb, [facility] [address] [id number] [place] [address] Jan, [facility] [address] [id number] [place] [address] Jan, [facility] [address] [id number] [place] [address] Jan, [facility] [address] [id number] [place] [address] Jan, [facility] [address] [id number] [place] [address] Jan, [facility] [address] [id number] [place] [address] Jan, [facility] [address] [place] [id number] [place] [address] Jan, [facility] [address] [place] [id number] [place] [address] Jan, [facility] [address] [id number] [place] [address] Dec, [facility] [address] [id number] [place] [address] Dec, [facility] [address] [id number] [place] [address] Dec, [facility] [address] [id number] [place] [address] Dec, [facility] [address] [id number] [place] [address] Oct, [facility] [address] [place] [id number] [place] [address] Sep, [facility] [address] [id number] [place] [address] Sep, [facility] [address] [id number] [place] [address] Sep, [facility] [address] [id number] [place] [address] 13 Sep, 2011 [facility] [address] [id number] [place] [address] Jun, [facility] [address] [id number] [place] [address] May, [facility] [address] [id number] [place] [address] 14 Apr, 2011 [facility] [address] [id number] [place] [address] Apr, [facility] [address] [id number] [place] [address] Apr, [facility] [address] [id number] [place] [address] Feb, [facility] [id number] [place] [address] Feb, [facility] [address] [id number] [place] [address] Jan, [facility] [id number] [place] [address] Jan, [facility] [address] [id number] [place] [address] Jan, [facility] [id number] [place] [address] 31 Feb, 2010 [facility] [address] [id number] [place] [address] 30 Feb, 2010 [facility] [address] [id number] [place] [address] 30 Feb, 2010 [facility] [address] [id number] [place] [address] 30 Feb, 2010 [facility] [address] [id number] [place] [address] 27 Feb, 2010 [facility] [address] [id number] [place] [address] Feb, [facility] [address] [id number] [place] [address] Feb, [facility] [id number] [place] [address] Feb, [facility] [address] [id number] [place] [address] Feb, [facility] [id number] [place] [address] Feb, [facility] [address] [id number] [place] [address] Jan, [facility] [id number] [place] [address] Dec, [facility] [id number] [place] [address] Nov, [facility] [id number] [place] [address] Mar, [facility] [id number] [place] [address] Jan, [facility] [id number] [place] [address] 15 Dec, 2008 [facility] [id number] [place] [address] 15 Dec, 2008 [facility] [id number] [place] [address] Sep, [facility] [id number] [place] [address] Jun, [facility] [id number] [place] [address] Mar, [facility] [id number] [place] [address] Jan, IMMUNIZATIONS No Known Immunizations SOCIAL HISTORY Never Assessed REASON FOR VISIT PLAN OF CARE VITAL SIGNS MEDICATIONS Unknown Medications RESULTS No Results PROCEDURES Procedure Date Ordered Result Body Site LIPID PANEL Apr 26, 2013 COMPREHEN METABOLIC PANEL Apr 26, 2013 VENIPUNCT, ROUTINE* Apr 26, 2013 INSTRUCTIONS MEDICATIONS ADMINISTERED No Known Medications [...] Heart cath per Dr. Burton at [facility]- hypotension 08/08 Hospitalization History [facility] 07/27/16
--- OUTSIDE RECORDS SUMMARY | 2019-08-06 07:53 | XMS REPORT ---
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 Name Role Phone DAY HUGHES Unavailable PROBLEMS Type Condition ICD9-CM Code [id number] Code Onset Dates Condition S tatus SNOMED Code Problem Hyperlipemia E78.5 Active 3523127 4 Problem Cataracts, bilateral H26.9 Active 88535093 Problem 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 2755 69956 Problem CVA (cerebral vascular accident) I63.9 Active 166457864 Problem Peripheral vascular disease, unspecified I73.9 Active 366971430 Problem Iron deficiency anemia due to chronic blood loss D 50.0 Active 384592509 Problem Diverticulitis of intestine without perforation or abscess without bleeding, unspecified part of intestinal tract K57.92 Active 489611547 Problem Post-surgical 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 A ctive 16619942 Problem Lymphocytosis D72.820 Active 330568 09 Problem Irritable bowel syndrome with diarrhea K58.0 Active 206765660 Problem Dysfunction of right eustachian tube H69.81 Active 92605285 Problem Essential hypertension I10 Active 94539729 Problem Lung nodule, solitary R91.1 Active 315733510 Problem 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 of 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 Active 594705009819625 Problem Thyroid nodule E04.1 Active 42546 5005 ALLERGIES No Information ENCOUNTERS Encounter Location Date Diagnosis [facility] [address] [facility] [place] [id number] [place] [address] May, [facility] [address] [facility] [place] [id number] [address] [place] [address] Apr, Viral URI with cough J06.9 a nd Fever R50.9 [facility] [address] [id number] [place] [address] Mar, Irritable bowel syndrome with diarrhea K 58.0 and Toe pain, left M79.675 [facility] [address] [facility] [place] [place] [id number] [address] [place] [address] Mar, Left foot pain M79.672 [facility] [address] [address] Mar, Hyperlipemia E78.5 [place] [address] [address] Jan, Encounter for immunization Z23 [place] [address] [address] Dec, [place] [address] [address] Nov, [place] [address] [address] Oct, [place] [address] [address] Oct, Arthralgia, unspecified joint M25.50 [place] [address] [address] Oct, Seborrheic keratosis L82.1 [facility] [address] [address] Oct, [place] [address] [address] Sep, [facility] [address] [address] Sep, Other fatigue R53.83 ; Candidiasis B37.9 and Arthralgia, unspecified joint M25.50 [place] [address] [address] Jun, Post-surgical 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 [facility] [address] [address] May, Post-surgical 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 and P eripheral vascular disease, unspecified I73.9 [facility] [address] [address] Mar, [place] [address] [address] Mar, Post-surgical 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 [facility] [address] [address] Jan, Nodular thyroid disease E04.1 ; Lung mas s R91.8 ; Iron deficiency anemia due to chronic blood loss D50.0 ; Essential hypertension I10 and 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 of 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 [facility] [address] [id number] Dec, Dental examination Z01.20 [place] [address] [address] Dec, Thyroid nodule E04.1 [place] [address] [address] Oct, Lung nodule, solitary R91.1 [place] [address] [address] Oct, [place] [address] [address] Oct, [place] [address] [address] Oct, [place] [address] [address] Sep, [place] [address] [address] Aug, [place] [address] [address] July, Arthralgia, unspecified joint M25.50 ; E ssential hypertension I10 ; Seborrheic keratosis L82.1 and LLQ abdominal pain R10.32 [place] [address] [address] Feb, Arthralgia, unspecified joint M25.50 [place] [address] [address] Feb, Arthralgia, unspecified joint M25.50 [place] [address] [address] Dec, Arthralgia, unspecified joint M25.50 [place] [address] [address] Dec, Right flank pain R10.9 ; Left foot pain M79.672 ; Arthralgia, unspecified joint M25.50 and Encounter for immunization Z23 [place] [address] [address] Dec, CVA (cerebral vascular accident) I63.9 [place] [address] [address] Dec, RUQ abdominal pain R10.11 [place] [address] [address] Dec, Right lower quadrant pain R10.31 ; Diver ticulitis of intestine without perforation or abscess without bleeding, unspecified part of intestinal tract K57.92 and Internal hemorrhoids K64.8 [place] [address] [address] Nov, [place] [address] [address] Oct, [place] [address] [address] Aug, Iron deficiency anemia due to chronic bl ood loss D50.[address] [address] Aug, Peripheral vascular disease, unspecified I73.9 and Colitis K52.9 [place] [address] [address] Aug, H/O: GI bleed Z87.19 [facility] [address] [address] 07 Aug, 2016 CVA (cerebral vascular accident) I63.9 [facility] [address] [address] Aug, RUQ abdominal pain R10.11 [facility] [address] [address] July, RUQ abdominal pain R10.11 and Lymphocyto sis D72.820 [facility] [address] [address] July, [facility] [address] [address] July, Colitis K52.9 [facility] [address] [id number] [id number] July, [facility] [address] [address] Jun, Right flank pain R10.9 [facility] [address] [address] May, Urinary tract infection without hematuri a, site unspecified N39.0 and Right flank pain R10.9 [facility] [address] [address] Feb, Acute non-recurrent maxillary sinusitis J01.00 and Need for hepatitis C screening test Z11.59 [facility] [address] [id number] Jan, Dental examination Z01.20 [facility] [address] [id number] Dec, Dental examination Z01.20 [facility] [address] [id number] Dec, Dental examination Z01.20 [facility] [address] [address] Dec, [facility] [address] [address] Dec, [facility] [address] [id number] Dec, Dental examination Z01.20 [facility] [address] [address] Nov, [facility] [address] [id number] Nov, Dental examination Z01.20 [facility] [address] [address] Oct, Arthralgia, unspecified joint M25.50 and Essential hypertension I10 [facility] [address] [address] Oct, [facility] [address] [facility] [facility] [place] [id number] [address] [place] [address] Sep, Bilateral otitis media, unsp ecified chronicity, unspecified otitis media type H66.93 [facility] [address] [id number] Sep, Dental examination Z01.20 [facility] [address] [id number] 16 Aug, 2015 Dental examination V72.2 [facility] [address] [address] 14 Aug, 2015 Essential hypertension I10 and Muscle cr amping R25.2 [facility] [address] [address] 09 Aug, 2015 Tension-type headache, not intractable, unspecified chronicity pattern G44.209 ; Muscle cramping R25.2 and Right leg pain M79.604 [facility] [address] [id number] July, Dental examination Z01.20 [facility] [address] [id number] July, Encounter for dental examination and jitendra aning without abnormal findings Z01.20 and Dental caries K02.9 [facility] [address] [id number] [place] [id number] Jun, Encounter for dental examination Z01.20 [facility] [address] [id number] [place] [address] 26 Apr, 2015 [facility] [address] [facility] [place] [place] [id number] [address] [place] [address] 02 Apr, 2015 Bronchitis J40 [place] [address] [address] 09 Feb, 2015 Hyperlipemia E78.5 ; Carotid arterial di sease I77.9 ; Tobacco use Z72.0 ; Hypertension I10 ; RBBB I45.10 and CVA (cerebral vascular accident) I63.9 [place] [address] [address] Feb, Status post CVA Z86.73 ; Dysfunction of right eustachian tube H69.81 and Essential hypertension I10 [place] [address] [address] 02 Dec, 2014 Encounter for immunization Z23 [place] [address] [address] Oct, PVD (peripheral vascular disease) 443.9 and Weight loss 783.21 [place] [address] [address] Oct, PVD (peripheral vascular disease) 443.9 and Weight loss 783.21 [place] [address] [address] Aug, Hyperlipidemia 272.4 ; Carotid arterial disease 447.9 ; Tobacco dependency 305.1 ; Hypertension 401.9 ; RBBB 426.4 and CVA (cerebral infarction) 434.91 [place] [address] [address] 08 Aug, 2014 [place] [address] [address] 08 Aug, 2014 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.7 9 [place] [address] [address] July, Chest pain, unspecified 786.50 ; Occlusi [...] for prophylactic vaccination and inoculation, Influenza V04.81 [place] [address] [address] Jun, [place] [address] [address] Jun, [place] [address] [address] May, [place] [address] [address] May, [place] [address] [address] May, [place] [address] [address] May, [place] [address] [address] Mar, [facility] [address] [id number] [place] [address] 16 Mar, 2014 [facility] [address] [id number] [place] [address] Mar, [facility] [address] [id number] [place] [address] Mar, [facility] [address] [id number] [place] [address] Mar, [facility] [address] [id number] [place] [address] Mar, [facility] [address] [id number] [place] [address] Mar, [facility] [address] [id number] [place] [address] Mar, [facility] [address] [id number] [place] [address] Mar, [facility] [address] [id number] [place] [address] Mar, [facility] [address] [id number] [place] [address] Feb, [facility] [address] [id number] [place] [address] Feb, [facility] [address] [id number] [place] [address] Feb, [facility] [address] [id number] [place] [address] Feb, [facility] [address] [id number] [place] [address] Feb, [facility] [address] [id number] [place] [address] Feb, [facility] [address] [id number] [place] [address] Feb, [facility] [address] [id number] [place] [address] Feb, [facility] [address] [facility] [place] [place] [id number] [place] [address] Jan, [facility] [address] [id number] [place] [address] Jan, [facility] [address] [id number] [place] [address] Nov, [facility] [address] [id number] [place] [address] Nov, [facility] [address] [facility] [id number] [place] [address] Sep, [facility] [address] [id number] [place] [address] Sep, [facility] [address] [id number] [place] [address] Sep, [facility] [address] [id number] [place] [address] Sep, [facility] [address] [id number] [place] [address] Aug, [facility] [address] [id number] [place] [address] Aug, [facility] [address] [id number] [place] [address] Aug, [facility] [address] [id number] [place] [address] Aug, [facility] [address] [id number] [place] [address] Aug, [facility] [address] [id number] [place] [address] Aug, [facility] [address] [id number] [place] [address] July, [facility] [address] [id number] [place] [address] July, [facility] [address] [id number] [place] [address] July, [facility] [address] [facility] [place] [id number] [place] [address] July, [facility] [address] [id number] [place] [address] Jun, [facility] [address] [id number] [place] [address] Jun, [facility] [address] [id number] [place] [address] Apr, [facility] [address] [id number] [place] [address] Apr, [facility] [address] [id number] [place] [address] Apr, [facility] [address] [id number] [place] [address] Apr, [facility] [address] [id number] [place] [address] Apr, [facility] [address] [id number] [place] [address] Apr, [facility] [address] [id number] [place] [address] Mar, [facility] [address] [id number] [place] [address] Mar, [facility] [address] [id number] [place] [address] Mar, [facility] [address] [id number] [place] [address] Mar, [facility] [address] [id number] [place] [address] Mar, [facility] [address] [id number] [place] [address] Feb, [facility] [address] [id number] [place] [address] Feb, [facility] [address] [id number] [place] [address] Feb, [facility] [address] [id number] [place] [address] Feb, [facility] [address] [id number] [place] [address] Feb, [facility] [address] [id number] [place] [address] Feb, [facility] [address] [id number] [place] [address] Feb, [facility] [address] [id number] [place] [address] Feb, [facility] [address] [id number] [place] [address] Feb, [facility] [address] [id number] [place] [address] Feb, [facility] [address] [id number] [place] [address] Feb, [facility] [address] [id number] [place] [address] Feb, [facility] [address] [id number] [place] [address] Jan, [facility] [address] [id number] [place] [address] Jan, [facility] [address] [id number] [place] [address] Jan, [facility] [address] [id number] [place] [address] Jan, [facility] [address] [id number] [place] [address] Jan, [facility] [address] [id number] [place] [address] Jan, [facility] [address] [id number] [place] [address] Jan, [facility] [address] [id number] [place] [address] Jan, [facility] [address] [id number] [place] [address] Jan, [facility] [address] [id number] [place] [address] Jan, [facility] [address] [id number] [place] [address] Jan, [facility] [address] [id number] [place] [address] Jan, [facility] [address] [id number] [place] [address] Jan, [facility] [address] [id number] [place] [address] Jan, [facility] [address] [id number] [place] [address] Jan, [facility] [address] [id number] [place] [address] Dec, [facility] [address] [id number] [place] [address] Dec, [facility] [address] [id number] [place] [address] Dec, [facility] [address] [id number] [place] [address] Dec, [facility] [address] [id number] [place] [address] Oct, [facility] [address] [id number] [place] [address] Oct, [facility] [address] [id number] [place] [address] Oct, [facility] [address] [id number] [place] [address] Sep, [facility] [address] [id number] [place] [address] Aug, [facility] [address] [id number] [place] [address] July, [facility] [address] [id number] [place] [address] July, [facility] [address] [id number] [place] [address] July, [facility] [address] [id number] [place] [address] July, [facility] [address] [id number] [place] [address] May, [facility] [address] [id number] [place] [address] May, [facility] [address] [id number] [place] [address] Mar, [facility] [address] [id number] [place] [address] Mar, [facility] [address] [id number] [place] [address] Mar, [facility] [address] [id number] [place] [address] Feb, [facility] [address] [id number] [place] [address] Feb, [facility] [address] [id number] [place] [address] Feb, [facility] [address] [id number] [place] [address] Feb, [facility] [address] [id number] [place] [address] Feb, [facility] [address] [id number] [place] [address] Feb, [facility] [address] [id number] [place] [address] Jan, [facility] [address] [id number] [place] [address] Jan, [facility] [address] [id number] [place] [address] Jan, [facility] [address] [id number] [place] [address] Jan, [facility] [address] [id number] [place] [address] Jan, [facility] [address] [id number] [place] [address] Jan, [facility] [address] [id number] [place] [address] Jan, [facility] [address] [id number] [place] [address] Jan, [facility] [address] [id number] [place] [address] Dec, [facility] [address] [id number] [place] [address] Dec, [facility] [address] [id number] [place] [address] Dec, [facility] [address] [id number] [place] [address] Dec, [facility] [address] [id number] [place] [address] Oct, [facility] [address] [id number] [place] [address] Sep, [facility] [address] [id number] [place] [address] Sep, [facility] [address] [id number] [place] [address] Sep, [facility] [address] [id number] [place] [address] Sep, [facility] [address] [id number] [place] [address] Jun, [facility] [address] [id number] [place] [address] May, [facility] [address] [id number] [place] [address] 14 Apr, 2011 [facility] [address] [id number] [place] [address] Apr, [facility] [address] [id number] [place] [address] Apr, [facility] [address] [id number] [place] [address] Feb, [facility] [address] [id number] [place] [address] Feb, [facility] [address] [id number] [place] [address] Jan, [facility] [address] [id number] [place] [address] Jan, [facility] [address] [id number] [place] [address] Jan, [facility] [address] [id number] [place] [id number] 31 Feb, 2010 [facility] [address] [id number] [place] [address] 30 Feb, 2010 [facility] [address] [id number] [place] [address] 30 Feb, 2010 [facility] [address] [id number] [place] [address] 30 Feb, 2010 [facility] [address] [id number] [place] [address] 27 Feb, 2010 [facility] [address] [id number] [place] [address] 23 Feb, 2010 [facility] [address] [id number] [place] [address] 20 Feb, 2010 [facility] [id number] [place] [address] Feb, [facility] [id number] [place] [address] Feb, [facility] [address] [id number] [place] [address] Feb, [facility] [id number] [place] [address] Jan, [facility] [id number] [place] [address] Dec, [facility] [id number] [place] [address] Nov, [facility] [id number] [place] [address] Mar, [facility] [id number] [place] [address] Jan, [facility] [id number] [place] [address] 15 Dec, 2008 [facility] [id number] [place] [address] Dec, [facility] [id number] [place] [address] Sep, [facility] [id number] [place] [address] Jun, [facility] [id number] [place] [address] Mar, [facility] [id number] [place] [address] Jan, IMMUNIZATIONS No Known Immunizations SOCIAL HISTORY [...] had any in many years Medical History tyronporosis Medical History arthritisis Medical History spine compression [...] Heart cath per Dr. Burton at [facility]- hypotension 08/08 Hospitalization History Hematochezia-[facility] 07/27/16
--- OUTSIDE RECORDS SUMMARY | 2019-08-06 07:53 | XMS REPORT ---
Author Author Lavern HUGHES [facility] Address [address] [place] [address] Care Team Providers Care Manager [employer] Name Role Phone DAY HUGHES Unavailable PROBLEMS Type Condition ICD9-CM Code [id number] Code Onset Dates Condition S tatus SNOMED Code Problem Hyperlipemia E78.5 Active 3032402 4 Problem Cataracts, bilateral H26.9 Active 77033742 Problem 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 2755 07466 Problem CVA (cerebral vascular accident) I63.9 Active 463189019 Problem Peripheral vascular disease, unspecified I73.9 Active 902783898 Problem Iron deficiency anemia due to chronic blood loss D 50.0 Active 202414623 Problem Diverticulitis of intestine without perforation or abscess without bleeding, unspecified part of intestinal tract K57.92 Active 874548975 Problem Post-surgical 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 A ctive 88842124 Problem Lymphocytosis D72.820 Active 612117 09 Problem Irritable bowel syndrome with diarrhea K58.0 Active 544562170 Problem Dysfunction of right eustachian tube H69.81 Active 62808335 Problem Essential hypertension I10 Active 62409720 Problem Lung nodule, solitary R91.1 Active 802585433 Problem 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 of 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 Active [id number] Problem Thyroid nodule E04.1 Active 10190 5005 ALLERGIES Substance Reaction Event Type Date Status Flonase hives and itching Drug Allergy May, Active ENCOUNTERS Encounter Location Date Diagnosis [facility] [address] [id number] [place] [address] Jun, [facility] [address] [id number] [place] [address] May, Irritable bowel syndrome with diarrhea K 58.0 and Tobacco use Z72.0 [facility] [address] [facility] [id number] [place] [address] 10 Apr, 2019 Viral URI with cough J06.9 a nd Fever R50.9 [place] [address] [address] Mar, Irritable bowel syndrome with diarrhea K 58.0 and Toe pain, left M79.675 [facility] [address] [facility] [id number] [place] [address] Mar, Left foot pain M79.672 [place] [address] [address] Mar, Hyperlipemia E78.5 [place] [address] [address] Jan, Encounter for immunization Z23 [place] [address] [address] Dec, [place] [address] [address] Nov, [place] [address] [address] Oct, [place] [address] [address] Oct, Arthralgia, unspecified joint M25.50 [place] [address] [address] Oct, Seborrheic keratosis L82.1 [place] [address] [address] Oct, [place] [address] [address] Sep, [place] [address] [address] Sep, Other fatigue R53.83 ; Candidiasis B37.9 and Arthralgia, unspecified joint M25.50 [place] [address] [address] Jun, Post-surgical 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 [facility] [address] [address] May, Post-surgical 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 and P eripheral vascular disease, unspecified I73.9 [facility] [address] [address] Mar, [facility] [address] [address] Mar, Post-surgical 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 [facility] [address] [address] Jan, Nodular thyroid disease E04.1 ; Lung mas s R91.8 ; Iron deficiency anemia due to chronic blood loss D50.0 ; Essential hypertension I10 and 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 of 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 [facility] [address] [id number] [place] [id number] Dec, Dental examination Z01.20 [facility] [address] [address] Dec, Thyroid nodule E04.1 [facility] [address] [address] Oct, Lung nodule, solitary R91.1 [facility] [address] [address] Oct, [facility] [address] [address] Oct, [facility] [address] [address] Oct, [facility] [address] [address] Sep, [facility] [address] [address] Aug, [facility] [address] [address] July, Arthralgia, unspecified joint M25.50 ; E ssential hypertension I10 ; Seborrheic keratosis L82.1 and LLQ abdominal pain R10.32 [place] [address] [address] Feb, Arthralgia, unspecified joint M25.50 [place] [address] [address] Feb, Arthralgia, unspecified joint M25.50 [place] [address] [address] Dec, Arthralgia, unspecified joint M25.50 [place] [address] [address] Dec, Right flank pain R10.9 ; Left foot pain M79.672 ; Arthralgia, unspecified joint M25.50 and Encounter for immunization Z23 [place] [address] [address] Dec, CVA (cerebral vascular accident) I63.9 [place] [address] [address] Dec, RUQ abdominal pain R10.[address] [address] Dec, Right lower quadrant pain R10.31 ; Diver ticulitis of intestine without perforation or abscess without bleeding, unspecified part of intestinal tract K57.92 and Internal hemorrhoids K64.8 [place] [address] [address] Nov, [place] [address] [address] Oct, [address] [address] Aug, Iron deficiency anemia due to chronic bl ood loss D50.0 [place] [address] [place] [address] Aug, Peripheral vascular disease, unspecified I73.9 and Colitis K52.9 [facility] [address] [address] 14 Aug, 2016 H/O: GI bleed Z87.19 [facility] [address] [address] 07 Aug, 2016 CVA (cerebral vascular accident) I63.9 [facility] [address] [address] Aug, RUQ abdominal pain R10.11 [place] [address] [address] July, RUQ abdominal pain R10.11 and Lymphocyto sis D72.820 [place] [address] [address] July, [place] [address] [address] July, Colitis K52.9 [facility] [address] [id number] [id number] July, [facility] [address] [address] Jun, Right flank pain R10.9 [facility] [address] [address] May, Urinary tract infection without hematuri a, site unspecified N39.0 and Right flank pain R10.9 [facility] [address] [address] Feb, Acute non-recurrent maxillary sinusitis J01.00 and Need for hepatitis C screening test Z11.59 [facility] [address] [id number] Jan, Dental examination Z01.20 [facility] [address] [id number] Dec, Dental examination Z01.20 [facility] [address] [id number] Dec, Dental examination Z01.20 [facility] [address] [address] Dec, [facility] [address] [address] Dec, [facility] [address] [id number] Dec, Dental examination Z01.20 [facility] [address] [address] Nov, [facility] [address] [id number] Nov, Dental examination Z01.20 [facility] [address] [address] Oct, Arthralgia, unspecified joint M25.50 and Essential hypertension I10 [facility] [address] [address] Oct, [facility] [address] [facility] [id number] [place] [address] Sep, Bilateral otitis media, unsp ecified chronicity, unspecified otitis media type H66.93 [facility] [address] [id number] Sep, Dental examination Z01.20 [facility] [address] [id number] Aug, Dental examination V72.2 [facility] [address] [address] 14 Aug, 2015 Essential hypertension I10 and Muscle cr amping R25.2 [facility] [address] [address] 09 Aug, 2015 Tension-type headache, not intractable, unspecified chronicity pattern G44.209 ; Muscle cramping R25.2 and Right leg pain M79.604 [facility] [address] [facility] [place] [id number] July, Dental examination Z01.20 [facility] [address] [id number] July, Encounter for dental examination and jitendra aning without abnormal findings Z01.20 and Dental caries K02.9 [facility] [address] [id number] Jun, Encounter for dental examination Z01.20 [facility] [address] [address] Apr, [facility] [address] [facility] [id number] [address] [address] 02 Apr, 2015 Bronchitis J40 [place] [address] [address] 09 Feb, 2015 Hyperlipemia E78.5 ; Carotid arterial di sease I77.9 ; Tobacco use Z72.0 ; Hypertension I10 ; RBBB I45.10 and CVA (cerebral vascular accident) I63.9 [place] [address] [address] Feb, Status post CVA Z86.73 ; Dysfunction of right eustachian tube H69.81 and Essential hypertension I10 [place] [address] [address] Dec, Encounter for immunization Z23 [place] [address] [address] Oct, PVD (peripheral vascular disease) 443.9 and Weight loss 783.21 [place] [address] [address] Oct, PVD (peripheral vascular disease) 443.9 and Weight loss 783.21 [place] [address] [address] Aug, Hyperlipidemia 272.4 ; Carotid arterial disease 447.9 ; Tobacco dependency 305.1 ; Hypertension 401.9 ; RBBB 426.4 and CVA (cerebral infarction) 434.91 [facility] [address] [address] Aug, [facility] [address] [address] Aug, 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.7 9 [place] [address] [address] July, Chest pain, unspecified 786.50 ; Occlusi [...] for prophylactic vaccination and inoculation, Influenza V04.81 [place] [address] [address] Jun, [place] [address] [address] Jun, [place] [address] [address] May, [place] [address] [address] May, [place] [address] [address] May, [facility] [place] [facility] [address] [id number] [place] [address] May, [facility] [place] [facility] [address] [id number] [place] [address] Mar, [facility] [place] [facility] [address] [id number] [place] [address] Mar, [facility] [place] [facility] [address] [id number] [place] [address] Mar, [facility] [place] [facility] [address] [id number] [place] [address] Mar, [facility] [place] [facility] [address] [id number] [place] [address] Mar, [facility] [place] [facility] [address] [id number] [place] [address] Mar, [facility] [place] [facility] [address] [id number] [place] [address] Mar, [facility] [place] [facility] [address] [id number] [place] [address] Mar, [facility] [place] [facility] [address] [id number] [place] [address] Mar, [facility] [place] [facility] [address] [id number] [place] [address] Mar, [facility] [place] [facility] [address] [id number] [place] [address] Feb, [facility] [place] [facility] [address] [id number] [place] [address] Feb, [facility] [place] [facility] [address] [id number] [place] [address] Feb, [facility] [place] [facility] [address] [id number] [place] [address] Feb, [facility] [place] [facility] [address] [id number] [place] [address] Feb, [facility] [place] [facility] [address] [id number] [place] [address] Feb, [facility] [place] [facility] [address] [facility] [id number] [place] [address] Feb, [facility] [place] [facility] [address] [facility] [id number] [place] [address] Feb, [facility] [place] [facility] [address] [id number] [place] [address] Jan, [facility] [place] [facility] [address] [id number] [place] [address] Jan, [facility] [place] [facility] [address] [id number] [place] [address] Nov, [facility] [place] [facility] [address] [id number] [place] [address] Nov, [facility] [place] [facility] [address] [id number] [place] [address] Sep, [facility] [place] [facility] [address] [id number] [place] [address] Sep, [facility] [place] [facility] [address] [id number] [place] [address] Sep, [facility] [place] [facility] [address] [id number] [place] [address] Sep, [facility] [place] [facility] [address] [id number] [place] [address] Aug, [facility] [place] [facility] [address] [id number] [place] [address] Aug, [facility] [place] [facility] [address] [id number] [place] [address] Aug, [facility] [place] [facility] [address] [id number] [place] [address] Aug, [facility] [place] [facility] [address] [id number] [place] [address] Aug, [facility] [place] [facility] [address] [id number] [place] [address] Aug, [facility] [place] [facility] [address] [id number] [place] [address] July, [facility] [place] [facility] [address] [facility] [id number] [place] [address] July, [facility] [place] [facility] [address] [id number] [place] [address] July, [facility] [place] [facility] [address] [id number] [place] [address] July, [facility] [place] [facility] [address] [id number] [place] [address] Jun, [facility] [place] [facility] [address] [id number] [place] [address] Jun, [facility] [place] [facility] [address] [id number] [place] [address] Apr, [facility] [place] [facility] [address] [id number] [place] [address] Apr, [facility] [place] [facility] [address] [id number] [place] [address] Apr, [facility] [place] [facility] [address] [id number] [place] [address] Apr, [facility] [place] [facility] [address] [id number] [place] [address] Apr, [facility] [place] [facility] [address] [id number] [place] [address] Apr, [facility] [place] [facility] [address] [id number] [place] [address] Mar, [facility] [place] [facility] [address] [id number] [place] [address] Mar, [facility] [place] [facility] [address] [id number] [place] [address] Mar, [facility] [place] [facility] [address] [id number] [place] [address] Mar, [facility] [place] [facility] [address] [id number] [place] [address] Mar, [facility] [address] [id number] [place] [address] Feb, [facility] [place] [facility] [address] [id number] [place] [address] Feb, [facility] [place] [facility] [address] [id number] [place] [address] Feb, [facility] [place] [facility] [address] [id number] [place] [address] Feb, [facility] [place] [facility] [address] [id number] [place] [address] Feb, [facility] [place] [facility] [address] [id number] [place] [address] Feb, [facility] [place] [facility] [address] [id number] [place] [address] Feb, 2012 [facility] [place] [facility] [address] [id number] [place] [address] Feb, [facility] [place] [facility] [address] [id number] [place] [address] Feb, [facility] [place] [facility] [address] [id number] [place] [address] Feb, [facility] [place] [facility] [address] [id number] [place] [address] Feb, [facility] [place] [facility] [address] [id number] [place] [address] Feb, [facility] [place] [facility] [address] [id number] [place] [address] Jan, [facility] [place] [facility] [address] [id number] [place] [address] Jan, [facility] [place] [facility] [address] [id number] [place] [address] Jan, [facility] [place] [facility] [address] [id number] [place] [address] Jan, [facility] [place] [facility] [address] [id number] [place] [address] Jan, [facility] [place] [facility] [address] [id number] [place] [address] Jan, [facility] [place] [facility] [address] [id number] [place] [address] Jan, [facility] [place] [facility] [address] [id number] [place] [address] Jan, [facility] [place] [facility] [address] [id number] [place] [address] Jan, [facility] [place] [facility] [address] [id number] [place] [address] Jan, [facility] [place] [facility] [address] [id number] [place] [address] Jan, [facility] [place] [facility] [address] [id number] [place] [address] Jan, [facility] [place] [facility] [address] [id number] [place] [address] Jan, [facility] [place] [facility] [address] [id number] [place] [address] Jan, [facility] [place] [facility] [address] [id number] [place] [address] Jan, [facility] [place] [facility] [address] [id number] [place] [address] Dec, [facility] [place] [facility] [address] [id number] [place] [address] Dec, [facility] [place] [facility] [address] [id number] [place] [address] Dec, [facility] [place] [facility] [address] [id number] [place] [address] Dec, [facility] [place] [facility] [address] [id number] [place] [address] Oct, [facility] [place] [facility] [address] [id number] [place] [address] Oct, [facility] [place] [facility] [address] [id number] [place] [address] Oct, [facility] [place] [facility] [address] [id number] [place] [address] Sep, [facility] [place] [facility] [address] [id number] [place] [address] Aug, [facility] [place] [facility] [address] [id number] [place] [address] July, [facility] [place] [facility] [address] [id number] [place] [address] July, [facility] [place] [facility] [address] [id number] [place] [address] July, [facility] [place] [facility] [address] [id number] [place] [address] July, [facility] [place] [facility] [address] [id number] [place] [address] May, [facility] [place] [facility] [address] [id number] [place] [address] May, [facility] [place] [facility] [address] [id number] [place] [address] Mar, [facility] [place] [facility] [address] [id number] [place] [address] Mar, [facility] [place] [facility] [address] [id number] [place] [address] Mar, [facility] [place] [facility] [address] [id number] [place] [address] Feb, [facility] [address] [id number] [place] [address] Feb, [facility] [id number] [place] [address] Feb, [facility] [address] [id number] [place] [address] Feb, [facility] [address] [id number] [place] [address] Feb, [facility] [address] [id number] [place] [address] Feb, [facility] [address] [id number] [place] [address] Jan, [facility] [address] [id number] [place] [address] Jan, [facility] [address] [id number] [place] [address] Jan, [facility] [address] [id number] [place] [address] Jan, [facility] [address] [id number] [place] [address] Jan, [facility] [address] [id number] [place] [address] Jan, [facility] [address] [id number] [place] [address] Jan, [facility] [address] [id number] [place] [address] Jan, [facility] [address] [id number] [place] [address] Dec, [facility] [address] [id number] [place] [address] Dec, [facility] [address] [id number] [place] [address] Dec, [facility] [address] [id number] [place] [address] Dec, [facility] [address] [id number] [place] [address] Oct, [facility] [address] [id number] [place] [address] Sep, [facility] [address] [id number] [place] [address] Sep, [facility] [address] [id number] [place] [address] 25 Sep, 2011 [facility] [address] [id number] [place] [address] Sep, [facility] [address] [id number] [place] [address] Jun, [facility] [address] [id number] [place] [address] May, [facility] [address] [id number] [place] [address] Apr, [facility] [address] [id number] [place] [address] Apr, [facility] [address] [id number] [place] [address] Apr, [facility] [address] [id number] [place] [address] Feb, [facility] [id number] [place] [address] Feb, [facility] [address] [id number] [place] [address] Jan, [facility] [address] [id number] [place] [address] Jan, [facility] [address] [id number] [place] [address] Jan, [facility] [address] [id number] [place] [address] Feb, [facility] [address] [id number] [place] [address] 30 Feb, 2010 [facility] [id number] [place] [address] 30 Feb, 2010 [facility] [address] [id number] [place] [address] Feb, [facility] [address] [id number] [place] [address] Feb, [facility] [address] [id number] [place] [address] Feb, [facility] [address] [id number] [place] [address] Feb, [facility] [address] [id number] [place] [address] Feb, [facility] [address] [id number] [place] [address] Feb, [facility] [address] [id number] [place] [address] Feb, [facility] [address] [id number] [place] [address] Jan, [facility] [address] [id number] [place] [address] Dec, [facility] [id number] [place] [address] Nov, [facility] [address] [id number] [place] [address] Mar, [facility] [id number] [place] [address] Jan, [facility] [id number] [place] [address] 15 Dec, 2008 [facility] [id number] [place] [address] 15 Dec, 2008 [facility] [address] [id number] [place] [address] Sep, [facility] [address] [id number] [place] [address] Jun, [facility] [id number] [place] [address] Mar, [facility] [address] [id number] [place] [address] Jan, IMMUNIZATIONS No Known Immunizations SOCIAL HISTORY Never Assessed REASON FOR VISIT f/u thyroid, PVD Pt needs lab work states --FREDERICK Fink PLAN OF CARE Activity Details Follow Up 3 Months Reason:Thyroid VITAL SIGNS Height 57 in 2018-06-11 Weight 142.6 lbs 2018-06-11 Temperature 97.8 degrees Fahrenheit 2018-06-11 Heart Rate 96 bpm 2018-06-11 Respiratory Rate 18 2018-06-11 Oximetry 95 % 2018-06-11 BMI 30.85 kg/m2 2018-06-11 Blood pressure systolic 156 mmHg 2018-06-11 Blood pressure diastolic 82 mmHg 2018-06-11 MEDICATIONS Medication Instructions Dosage Frequency Start Date End Date Duration S tatus Lisinopril 10 Orally Once a day LUPIN PHARMACE 1 tablet 90 Active Calcium Oral Once a day 2 tab 24h Active Simvastatin 40 MG Orally Once a day 1 tablet 24h 30 days Active potassium 1 tab Active Tylenol with Codeine #3 300-30 mg 1-2 ta blet by Oral route 4 times per day PRN July, Active Primidone 250 MG Orally Once a day 5 tablets at bedtime 24h Feb, Active Probiotic Active Pantoprazole Sodium 40 MG TAKE ONE (1) TABLET BY MOUTH ONCE MADHU Y 30 Active Propranolol HCl 20 mg Orally twice a day 1 tablet on an empty stomach 12h 30 Active Levothyroxine Sodium 88 MCG Orally Once a day 1 tablet on an empty stomach in the morning 24h Mar, Active Protonix 40 MG Orally Once a day 1 tablet 24h 30 day s Active RESULTS Name Result Date Reference Range TSH w/ FREE T4 2018-06-11 TSH 15.69 0.40-4.50 T4, FREE 1.2 0.8-1.8 PROCEDURES Procedure Date Ordered Result Body Site [facility] VISIT ESTABLISHED PATIENT June 11, 2018 LAB NOT BILLED BY [facility] June 11, 2018 INSTRUCTIONS MEDICATIONS ADMINISTERED No Known Medications [...] Heart cath per Dr. Burton at [facility]- hypotension 08/08 Hospitalization History Hematochezia-[facility] 07/27/16
--- OUTSIDE RECORDS SUMMARY | 2019-08-06 07:54 | XMS REPORT ---
Author Author Lavern HUGHES Organization [facility] Address [address] [place] [address] Care Team Providers Care Medical Insurance Claims Processor Name Role Phone DAY HUGHES Unavailable PROBLEMS Type Condition ICD9-CM Code VOS88-XX Code Onset Dates Condition S tatus SNOMED Code Problem Hyperlipemia E78.5 Active 1029383 4 Problem Cataracts, bilateral H26.9 Active 30931059 Problem 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 2755 26609 Problem CVA (cerebral vascular accident) I63.9 Active 680808877 Problem Peripheral vascular disease, unspecified I73.9 Active 286166704 Problem Iron deficiency anemia due to chronic blood loss D 50.0 Active 323081704 Problem Diverticulitis of intestine without perforation or abscess without bleeding, unspecified part of intestinal tract K57.92 Active 835868628 Problem Post-surgical 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 A ctive 21183312 Problem Lymphocytosis D72.820 Active 049704 09 Problem Irritable bowel syndrome with diarrhea K58.0 Active 347020585 Problem Dysfunction of right eustachian tube H69.81 Active 65482583 Problem Essential hypertension I10 Active 43128500 Problem Lung nodule, solitary R91.1 Active 093186097 Problem 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 of 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 Active [id number] Problem Thyroid nodule E04.1 Active 26944 5005 ALLERGIES No Information ENCOUNTERS Encounter Location Date Diagnosis [facility] [address] [id number] [place] [address] May, [facility] [address] [id number] [place] [address] Mar, Irritable bowel syndrome with diarrhea K 58.0 and Toe pain, left M79.675 [facility] [address] [facility] [id number] [address] [place] [address] Mar, Left foot pain M79.672 [facility] [address] [address] Mar, Hyperlipemia E78.5 [facility] [address] [address] Jan, Encounter for immunization Z23 [facility] [address] [address] Dec, [facility] [address] [address] Nov, [facility] [address] [address] Oct, [place] [address] [address] Oct, Arthralgia, unspecified joint M25.50 [place] [address] [address] Oct, Seborrheic keratosis L82.1 [place] [address] [address] Oct, [place] [address] [address] Sep, [place] [address] [address] Sep, Other fatigue R53.83 ; Candidiasis B37.9 and Arthralgia, unspecified joint M25.50 [place] [address] [address] Jun, Post-surgical 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 [place] [address] [address] May, Post-surgical 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 and P eripheral vascular disease, unspecified I73.9 [facility] [address] [address] Mar, [facility] [address] [address] Mar, Post-surgical 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 [place] [address] [address] Jan, Nodular thyroid disease E04.1 ; Lung mas s R91.8 ; Iron deficiency anemia due to chronic blood loss D50.0 ; Essential hypertension I10 and 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 of 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 [facility] [address] [id number] [place] [id number] Dec, Dental examination Z01.20 [place] [address] [address] Dec, Thyroid nodule E04.1 [place] [address] [address] Oct, Lung nodule, solitary R91.1 [place] [address] [address] Oct, [place] [address] [address] Oct, [place] [address] [address] Oct, [place] [address] [address] Sep, [place] [address] [address] Aug, [place] [address] [address] July, Arthralgia, unspecified joint M25.50 ; E ssential hypertension I10 ; Seborrheic keratosis L82.1 and LLQ abdominal pain R10.32 [place] [address] [address] Feb, Arthralgia, unspecified joint M25.50 [place] [address] [address] Feb, Arthralgia, unspecified joint M25.50 [place] [address] [address] Dec, Arthralgia, unspecified joint M25.50 [place] [address] [address] Dec, Right flank pain R10.9 ; Left foot pain M79.672 ; Arthralgia, unspecified joint M25.50 and Encounter for immunization Z23 [place] [address] [address] 09 Dec, 2016 CVA (cerebral vascular accident) I63.9 [place] [address] [address] Dec, RUQ abdominal pain R10.11 [place] [address] [address] Dec, Right lower quadrant pain R10.31 ; Diver ticulitis of intestine without perforation or abscess without bleeding, unspecified part of intestinal tract K57.92 and Internal hemorrhoids K64.8 [place] [address] [address] Nov, [place] [address] [address] Oct, [place] [address] [address] Aug, Iron deficiency anemia due to chronic bl ood loss D50.0 [place] [address] [address] Aug, Peripheral vascular disease, unspecified I73.9 and Colitis K52.9 [place] [address] [address] 14 Aug, 2016 H/O: GI bleed Z87.19 [place] [address] [address] 07 Aug, 2016 CVA (cerebral vascular accident) I63.9 [facility] [address] [address] Aug, RUQ abdominal pain R10.11 [facility] [address] [address] July, RUQ abdominal pain R10.11 and Lymphocyto sis D72.820 [facility] [address] [address] July, [facility] [address] [address] July, Colitis K52.9 [facility] [address] [id number] [id number] July, [facility] [address] [address] Jun, Right flank pain R10.9 [facility] [address] [address] May, Urinary tract infection without hematuri a, site unspecified N39.0 and Right flank pain R10.9 [facility] [address] [address] Feb, Acute non-recurrent maxillary sinusitis J01.00 and Need for hepatitis C screening test Z11.59 [facility] [address] [id number] Jan, Dental examination Z01.20 [facility] [address] [id number] Dec, Dental examination Z01.20 [facility] [address] [id number] Dec, Dental examination Z01.20 [facility] [address] [address] Dec, [facility] [address] [address] Dec, [facility] [address] [id number] Dec, Dental examination Z01.20 [facility] [address] [address] Nov, [facility] [address] [id number] 13 Nov, 2015 Dental examination Z01.20 [facility] [address] [address] Oct, Arthralgia, unspecified joint M25.50 and Essential hypertension I10 [facility] [address] [address] Oct, [facility] [address] [facility] [id number] [place] [address] Sep, Bilateral otitis media, unsp ecified chronicity, unspecified otitis media type H66.93 [facility] [address] [id number] Sep, Dental examination Z01.20 [facility] [address] [id number] 16 Aug, 2015 Dental examination V72.2 [facility] [address] [address] 14 Aug, 2015 Essential hypertension I10 and Muscle cr amping R25.2 [facility] [address] [place] [address] 09 Aug, 2015 Tension-type headache, not intractable, unspecified chronicity pattern G44.209 ; Muscle cramping R25.2 and Right leg pain M79.604 [facility] [address] [id number] July, Dental examination Z01.20 [facility] [address] [id number] July, Encounter for dental examination and jitendra aning without abnormal findings Z01.20 and Dental caries K02.9 [facility] [address] [id number] Jun, Encounter for dental examination Z01.20 [facility] [address] [address] Apr, [facility] [address] [facility] [id number] [address] [place] [address] 02 Apr, 2015 Bronchitis J40 [place] [address] [address] 09 Feb, 2015 Hyperlipemia E78.5 ; Carotid arterial di sease I77.9 ; Tobacco use Z72.0 ; Hypertension I10 ; RBBB I45.10 and CVA (cerebral vascular accident) I63.9 [place] [address] [address] 03 Feb, 2015 Status post CVA Z86.73 ; Dysfunction of right eustachian tube H69.81 and Essential hypertension I10 [place] [address] [address] 02 Dec, 2014 Encounter for immunization Z23 [place] [address] [address] Oct, PVD (peripheral vascular disease) 443.9 and Weight loss 783.21 [place] [address] [address] 24 Oct, 2014 PVD (peripheral vascular disease) 443.9 and Weight loss 783.21 [place] [address] [address] Aug, Hyperlipidemia 272.4 ; Carotid arterial disease 447.9 ; Tobacco dependency 305.1 ; Hypertension 401.9 ; RBBB 426.4 and CVA (cerebral infarction) 434.91 [place] [address] [address] Aug, [place] [address] [address] 08 Aug, 2014 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.7 9 [place] [address] [address] July, Chest pain, unspecified 786.50 ; Occlusi [...] for prophylactic vaccination and inoculation, Influenza V04.81 [place] [address] [address] Jun, [place] [address] [address] Jun, [place] [address] [address] May, [facility] [address] [address] May, [place] [address] [address] May, [facility] [address] [address] May, [place] [address] [address] Mar, [facility] [address] [address] Mar, [place] [address] [address] Mar, [facility] [address] [id number] [place] [address] Mar, [facility] [address] [id number] [place] [address] Mar, [facility] [address] [id number] [place] [address] Mar, [facility] [address] [id number] [place] [address] Mar, [facility] [address] [id number] [place] [address] Mar, [facility] [address] [id number] [place] [address] Mar, [facility] [address] [id number] [place] [address] Mar, [facility] [address] [id number] [place] [address] Feb, [facility] [address] [id number] [place] [address] Feb, [facility] [address] [id number] [place] [address] Feb, [facility] [address] [id number] [place] [address] Feb, [facility] [address] [id number] [place] [address] Feb, [facility] [address] [id number] [place] [address] Feb, [facility] [address] [id number] [place] [address] Feb, [facility] [address] [id number] [place] [address] Feb, [facility] [address] [id number] [place] [address] Jan, [facility] [address] [id number] [facility] [place] [address] Jan, [facility] [address] [facility] [id number] [facility] [place] [address] Nov, [facility] [address] [facility] [id number] [place] [address] Nov, [facility] [address] [id number] [place] [address] Sep, [facility] [address] [id number] [place] [address] Sep, [facility] [address] [id number] [place] [address] Sep, [facility] [address] [id number] [place] [address] Sep, [facility] [address] [id number] [place] [address] Aug, [facility] [address] [id number] [place] [address] Aug, [facility] [address] [id number] [place] [address] Aug, [facility] [address] [id number] [place] [address] Aug, [facility] [address] [id number] [place] [address] Aug, [facility] [address] [id number] [place] [address] Aug, [facility] [address] [id number] [place] [address] July, [facility] [address] [id number] [place] [address] July, [facility] [address] [id number] [place] [address] July, [facility] [address] [id number] [place] [address] July, [facility] [address] [id number] [place] [address] Jun, [facility] [address] [id number] [place] [address] Jun, [facility] [address] [id number] [place] [address] Apr, [facility] [address] [id number] [place] [address] Apr, [facility] [address] [id number] [place] [address] Apr, [facility] [address] [id number] [place] [address] Apr, [facility] [address] [id number] [place] [address] Apr, [facility] [address] [id number] [place] [address] Apr, [facility] [address] [id number] [place] [address] Mar, [facility] [address] [id number] [place] [address] Mar, [facility] [address] [id number] [place] [address] Mar, [facility] [address] [id number] [place] [address] Mar, [facility] [address] [id number] [place] [address] Mar, [facility] [address] [id number] [place] [address] Feb, [facility] [address] [id number] [place] [address] Feb, [facility] [address] [id number] [place] [address] Feb, [facility] [address] [id number] [place] [address] Feb, [facility] [address] [id number] [place] [address] Feb, [facility] [address] [id number] [place] [address] Feb, [facility] [address] [id number] [place] [address] Feb, [facility] [address] [id number] [place] [address] Feb, [facility] [address] [id number] [place] [address] Feb, [facility] [address] [id number] [place] [address] Feb, [facility] [address] [id number] [place] [address] Feb, [facility] [address] [id number] [place] [address] Feb, [facility] [address] [id number] [place] [address] Jan, [facility] [address] [id number] [place] [address] Jan, [facility] [address] [id number] [place] [address] Jan, [facility] [address] [id number] [place] [address] Jan, [facility] [address] [id number] [place] [address] Jan, [facility] [address] [id number] [place] [address] Jan, [facility] [address] [id number] [place] [address] Jan, [facility] [address] [id number] [place] [address] Jan, [facility] [address] [id number] [place] [address] Jan, [facility] [address] [id number] [place] [address] Jan, [facility] [address] [id number] [place] [address] Jan, [facility] [address] [id number] [place] [address] Jan, [facility] [address] [id number] [place] [address] Jan, [facility] [address] [id number] [place] [address] Jan, [facility] [address] [id number] [place] [address] Jan, [facility] [address] [id number] [place] [address] Dec, [facility] [address] [id number] [place] [address] Dec, [facility] [address] [id number] [place] [address] Dec, [facility] [address] [id number] [place] [address] Dec, [facility] [address] [id number] [place] [address] Oct, [facility] [address] [id number] [place] [address] Oct, [facility] [address] [id number] [place] [address] Oct, [facility] [address] [id number] [place] [address] Sep, [facility] [address] [id number] [place] [address] Aug, [facility] [address] [id number] [place] [address] July, [facility] [address] [id number] [place] [address] July, [facility] [address] [id number] [place] [address] July, [facility] [address] [id number] [place] [address] July, [facility] [address] [id number] [place] [address] May, [facility] [address] [id number] [place] [address] May, [facility] [address] [id number] [place] [address] Mar, [facility] [address] [id number] [place] [address] Mar, [facility] [address] [place] [id number] [place] [address] Mar, [facility] [address] [id number] [place] [address] Feb, [facility] [address] [id number] [place] [address] Feb, [facility] [address] [id number] [place] [address] Feb, [facility] [address] [id number] [place] [address] Feb, [facility] [address] [id number] [place] [address] Feb, [facility] [address] [id number] [place] [address] Feb, [facility] [address] [id number] [place] [address] Jan, [facility] [address] [id number] [place] [address] Jan, [facility] [address] [id number] [place] [address] Jan, [facility] [address] [id number] [place] [address] Jan, [facility] [address] [id number] [place] [address] Jan, [facility] [address] [id number] [place] [address] Jan, [facility] [address] [id number] [place] [address] Jan, [facility] [address] [id number] [place] [address] Jan, [facility] [address] [id number] [place] [address] Dec, [facility] [address] [id number] [place] [address] Dec, [facility] [address] [id number] [place] [address] Dec, [facility] [address] [id number] [place] [address] Dec, [facility] [address] [id number] [place] [address] Oct, [facility] [address] [id number] [place] [address] Sep, [facility] [address] [id number] [place] [address] Sep, [facility] [address] [id number] [place] [address] Sep, [facility] [address] [id number] [place] [address] Sep, [facility] [address] [id number] [place] [address] Jun, [facility] [address] [id number] [place] [address] May, [facility] [address] [id number] [place] [address] 14 Apr, 2011 [facility] [address] [id number] [place] [address] 09 Apr, 2011 [facility] [address] [id number] [place] [address] 03 Apr, 2011 [facility] [address] [id number] [place] [address] Feb, [facility] [address] [id number] [place] [address] Feb, [facility] [address] [id number] [place] [address] Jan, [facility] [address] [id number] [place] [address] Jan, [facility] [address] [id number] [place] [address] Jan, [facility] [address] [id number] [place] [address] 31 Feb, 2010 [facility] [address] [id number] [place] [address] 30 Feb, 2010 [facility] [address] [id number] [place] [address] 30 Feb, 2010 [facility] [address] [id number] [place] [address] 30 Feb, 2010 [facility] [address] [id number] [place] [address] 27 Feb, 2010 [facility] [address] [id number] [place] [address] 23 Feb, 2010 [facility] [address] [id number] [place] [address] 20 Feb, 2010 [facility] [address] [id number] [place] [address] 18 Feb, 2010 [facility] [address] [id number] [place] [address] Feb, [facility] [address] [id number] [place] [address] Feb, [facility] [id number] [place] [address] Jan, [facility] [id number] [place] [address] Dec, [facility] [address] [address] Nov, [facility] [id number] [place] [address] Mar, [facility] [address] [address] Jan, [facility] [address] [address] Dec, [facility] [address] [address] Dec, [facility] [id number] [place] [address] Sep, [facility] [id number] [place] [address] Jun, [facility] [id number] [place] [address] Mar, [facility] [id number] [place] [address] Jan, IMMUNIZATIONS No Known Immunizations SOCIAL HISTORY [...]
--- OUTSIDE RECORDS SUMMARY | 2019-08-06 07:54 | XMS REPORT ---
Author Author Lavern HUGHES Organization [facility] Address [address] [place] [address] Care Team Providers Care Dub Room Engineer Name Role Phone DAY HUGHES Unavailable PROBLEMS Type Condition ICD9-CM Code VST59-KK Code Onset Dates Condition S tatus SNOMED Code Problem Hyperlipemia E78.5 Active 4532173 4 Problem Cataracts, bilateral H26.9 Active 89141722 Problem 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 2755 94028 Problem CVA (cerebral vascular accident) I63.9 Active 323867653 Problem Peripheral vascular disease, unspecified I73.9 Active 533355572 Problem Iron deficiency anemia due to chronic blood loss D 50.0 Active 913419437 Problem Diverticulitis of intestine without perforation or abscess without bleeding, unspecified part of intestinal tract K57.92 Active 624157258 Problem Post-surgical 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 A ctive 63538116 Problem Lymphocytosis D72.820 Active 400088 09 Problem Irritable bowel syndrome with diarrhea K58.0 Active 205619002 Problem Dysfunction of right eustachian tube H69.81 Active 17923896 Problem Essential hypertension I10 Active 30921723 Problem Lung nodule, solitary R91.1 Active 499079579 Problem 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 of 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 Active 559402949236571 Problem Thyroid nodule E04.1 Active 64586 5005 ALLERGIES No Information ENCOUNTERS Encounter Location Date Diagnosis [facility] [address] [facility] [id number] [place] [address] May, [facility] [address] [facility] [id number] [address] [place] [address] Apr, Viral URI with cough J06.9 a nd Fever R50.9 [facility] [address] [id number] [place] [address] Mar, Irritable bowel syndrome with diarrhea K 58.0 and Toe pain, left M79.675 [facility] [address] [facility] [id number] [address] [place] [address] Mar, Left foot pain M79.672 [facility] [address] [address] Mar, Hyperlipemia E78.5 [place] [address] [address] Jan, Encounter for immunization Z23 [place] [address] [address] Dec, [place] [address] [address] Nov, [place] [address] [address] Oct, [place] [address] [address] Oct, Arthralgia, unspecified joint M25.50 [place] [address] [address] Oct, Seborrheic keratosis L82.1 [facility] [address] [address] Oct, [place] [address] [address] Sep, [facility] [address] [address] Sep, Other fatigue R53.83 ; Candidiasis B37.9 and Arthralgia, unspecified joint M25.50 [place] [address] [address] Jun, Post-surgical 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 [facility] [address] [address] May, Post-surgical 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 and P eripheral vascular disease, unspecified I73.9 [facility] [address] [address] Mar, [place] [address] [address] Mar, Post-surgical 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 [facility] [address] [address] Jan, Nodular thyroid disease E04.1 ; Lung mas s R91.8 ; Iron deficiency anemia due to chronic blood loss D50.0 ; Essential hypertension I10 and 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 of 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 [facility] [address] [id number] Dec, Dental examination Z01.20 [place] [address] [address] Dec, Thyroid nodule E04.1 [place] [address] [address] Oct, Lung nodule, solitary R91.1 [place] [address] [address] Oct, [place] [address] [address] Oct, [place] [address] [address] Oct, [place] [address] [address] Sep, [place] [address] [address] Aug, [place] [address] [address] July, Arthralgia, unspecified joint M25.50 ; E ssential hypertension I10 ; Seborrheic keratosis L82.1 and LLQ abdominal pain R10.32 [place] [address] [address] Feb, Arthralgia, unspecified joint M25.50 [place] [address] [address] Feb, Arthralgia, unspecified joint M25.50 [place] [address] [address] Dec, Arthralgia, unspecified joint M25.50 [place] [address] [address] Dec, Right flank pain R10.9 ; Left foot pain M79.672 ; Arthralgia, unspecified joint M25.50 and Encounter for immunization Z23 [place] [address] [address] Dec, CVA (cerebral vascular accident) I63.9 [place] [address] [address] Dec, RUQ abdominal pain R10.11 [place] [address] [address] Dec, Right lower quadrant pain R10.31 ; Diver ticulitis of intestine without perforation or abscess without bleeding, unspecified part of intestinal tract K57.92 and Internal hemorrhoids K64.8 [place] [address] [address] Nov, [place] [address] [address] Oct, [place] [address] [address] Aug, Iron deficiency anemia due to chronic bl ood loss D50.[address] [address] Aug, Peripheral vascular disease, unspecified I73.9 and Colitis K52.9 [place] [address] [address] Aug, H/O: GI bleed Z87.19 [facility] [address] [address] 07 Aug, 2016 CVA (cerebral vascular accident) I63.9 [facility] [address] [address] Aug, RUQ abdominal pain R10.11 [facility] [address] [address] July, RUQ abdominal pain R10.11 and Lymphocyto sis D72.820 [facility] [address] [address] July, [facility] [address] [address] July, Colitis K52.9 [facility] [address] [id number] [id number] July, [facility] [address] [address] Jun, Right flank pain R10.9 [facility] [address] [address] May, Urinary tract infection without hematuri a, site unspecified N39.0 and Right flank pain R10.9 [facility] [address] [address] Feb, Acute non-recurrent maxillary sinusitis J01.00 and Need for hepatitis C screening test Z11.59 [facility] [address] [id number] Jan, Dental examination Z01.20 [facility] [address] [id number] Dec, Dental examination Z01.20 [facility] [address] [id number] Dec, Dental examination Z01.20 [facility] [address] [address] Dec, [facility] [address] [address] Dec, [facility] [address] [id number] Dec, Dental examination Z01.20 [facility] [address] [address] Nov, [facility] [address] [id number] Nov, Dental examination Z01.20 [facility] [address] [address] Oct, Arthralgia, unspecified joint M25.50 and Essential hypertension I10 [facility] [address] [address] Oct, [facility] [address] [facility] [id number] [address] [place] [address] Sep, Bilateral otitis media, unsp ecified chronicity, unspecified otitis media type H66.93 [facility] [address] [id number] Sep, Dental examination Z01.20 [facility] [address] [id number] 16 Aug, 2015 Dental examination V72.2 [facility] [address] [address] 14 Aug, 2015 Essential hypertension I10 and Muscle cr amping R25.2 [facility] [address] [address] 09 Aug, 2015 Tension-type headache, not intractable, unspecified chronicity pattern G44.209 ; Muscle cramping R25.2 and Right leg pain M79.604 [facility] [address] [id number] July, Dental examination Z01.20 [facility] [address] [id number] July, Encounter for dental examination and jitendra aning without abnormal findings Z01.20 and Dental caries K02.9 [facility] [address] [id number] [place] [id number] Jun, Encounter for dental examination Z01.20 [facility] [address] [id number] [place] [address] 26 Apr, 2015 [facility] [address] [facility] [id number] [address] [place] [address] 02 Apr, 2015 Bronchitis J40 [place] [address] [address] 09 Feb, 2015 Hyperlipemia E78.5 ; Carotid arterial di sease I77.9 ; Tobacco use Z72.0 ; Hypertension I10 ; RBBB I45.10 and CVA (cerebral vascular accident) I63.9 [place] [address] [address] Feb, Status post CVA Z86.73 ; Dysfunction of right eustachian tube H69.81 and Essential hypertension I10 [place] [address] [address] 02 Dec, 2014 Encounter for immunization Z23 [place] [address] [address] Oct, PVD (peripheral vascular disease) 443.9 and Weight loss 783.21 [place] [address] [address] Oct, PVD (peripheral vascular disease) 443.9 and Weight loss 783.21 [place] [address] [address] Aug, Hyperlipidemia 272.4 ; Carotid arterial disease 447.9 ; Tobacco dependency 305.1 ; Hypertension 401.9 ; RBBB 426.4 and CVA (cerebral infarction) 434.91 [place] [address] [address] 08 Aug, 2014 [place] [address] [address] 08 Aug, 2014 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.7 9 [place] [address] [address] July, Chest pain, unspecified 786.50 ; Occlusi [...] vaccination and inoculation, Influenza V04.81 [place] [address] [address] Jun, [place] [address] [address] Jun, [place] [address] [address] May, [place] [address] [address] May, [place] [address] [address] May, [place] [address] [address] May, [place] [address] [address] Mar, [facility] [address] [id number] [place] [address] 16 Mar, 2014 [facility] [address] [id number] [place] [address] Mar, [facility] [address] [id number] [place] [address] Mar, [facility] [address] [id number] [place] [address] Mar, [facility] [address] [id number] [place] [address] Mar, [facility] [address] [id number] [place] [address] Mar, [facility] [address] [id number] [place] [address] Mar, [facility] [address] [id number] [place] [address] Mar, [facility] [address] [id number] [place] [address] Mar, [facility] [address] [id number] [place] [address] Feb, [facility] [address] [id number] [place] [address] Feb, [facility] [address] [id number] [place] [address] Feb, [facility] [address] [id number] [place] [address] Feb, [facility] [address] [id number] [place] [address] Feb, [facility] [address] [id number] [place] [address] Feb, [facility] [address] [id number] [place] [address] Feb, [facility] [address] [id number] [place] [address] Feb, [facility] [address] [facility] [id number] [place] [address] Jan, [facility] [address] [id number] [place] [address] Jan, [facility] [address] [id number] [place] [address] Nov, [facility] [address] [id number] [place] [address] Nov, [facility] [address] [facility] [id number] [place] [address] Sep, [facility] [address] [id number] [place] [address] Sep, [facility] [address] [id number] [place] [address] Sep, [facility] [address] [id number] [place] [address] Sep, [facility] [address] [id number] [place] [address] Aug, [facility] [address] [id number] [place] [address] Aug, [facility] [address] [id number] [place] [address] Aug, [facility] [address] [id number] [place] [address] Aug, [facility] [address] [id number] [place] [address] Aug, [facility] [address] [id number] [place] [address] Aug, [facility] [address] [id number] [place] [address] July, [facility] [address] [id number] [place] [address] July, [facility] [address] [id number] [place] [address] July, [facility] [address] [facility] [id number] [place] [address] July, [facility] [address] [id number] [place] [address] Jun, [facility] [address] [id number] [place] [address] Jun, [facility] [address] [id number] [place] [address] Apr, [facility] [address] [id number] [place] [address] Apr, [facility] [address] [id number] [place] [address] Apr, [facility] [address] [id number] [place] [address] Apr, [facility] [address] [id number] [place] [address] Apr, [facility] [address] [id number] [place] [address] Apr, [facility] [address] [id number] [place] [address] Mar, [facility] [address] [id number] [place] [address] Mar, [facility] [address] [id number] [place] [address] Mar, [facility] [address] [id number] [place] [address] Mar, [facility] [address] [id number] [place] [address] Mar, [facility] [address] [id number] [place] [address] Feb, [facility] [address] [id number] [place] [address] Feb, [facility] [address] [id number] [place] [address] Feb, [facility] [address] [id number] [place] [address] Feb, [facility] [address] [id number] [place] [address] Feb, [facility] [address] [id number] [place] [address] Feb, [facility] [address] [id number] [place] [address] Feb, [facility] [address] [id number] [place] [address] Feb, [facility] [address] [id number] [place] [address] Feb, [facility] [address] [id number] [place] [address] Feb, [facility] [address] [id number] [place] [address] Feb, [facility] [address] [id number] [place] [address] Feb, [facility] [address] [id number] [place] [address] Jan, [facility] [address] [id number] [place] [address] Jan, [facility] [address] [id number] [place] [address] Jan, [facility] [address] [id number] [place] [address] Jan, [facility] [address] [id number] [place] [address] Jan, [facility] [address] [id number] [place] [address] Jan, [facility] [address] [id number] [place] [address] Jan, [facility] [address] [id number] [place] [address] Jan, [facility] [address] [id number] [place] [address] Jan, [facility] [address] [id number] [place] [address] Jan, [facility] [address] [id number] [place] [address] Jan, [facility] [address] [id number] [place] [address] Jan, [facility] [address] [id number] [place] [address] Jan, [facility] [address] [id number] [place] [address] Jan, [facility] [address] [id number] [place] [address] Jan, [facility] [address] [id number] [place] [address] Dec, [facility] [address] [id number] [place] [address] Dec, [facility] [address] [id number] [place] [address] Dec, [facility] [address] [id number] [place] [address] Dec, [facility] [address] [id number] [place] [address] Oct, [facility] [address] [id number] [place] [address] Oct, [facility] [address] [id number] [place] [address] Oct, [facility] [address] [id number] [place] [address] Sep, [facility] [address] [id number] [place] [address] Aug, [facility] [address] [id number] [place] [address] July, [facility] [address] [id number] [place] [address] July, [facility] [address] [id number] [place] [address] July, [facility] [address] [id number] [place] [address] July, [facility] [address] [id number] [place] [address] May, [facility] [address] [id number] [place] [address] May, [facility] [address] [id number] [place] [address] Mar, [facility] [address] [id number] [place] [address] Mar, [facility] [address] [id number] [place] [address] Mar, [facility] [address] [id number] [place] [address] Feb, [facility] [address] [id number] [place] [address] Feb, [facility] [address] [id number] [place] [address] Feb, [facility] [address] [id number] [place] [address] Feb, [facility] [address] [id number] [place] [address] Feb, [facility] [address] [id number] [place] [address] Feb, [facility] [address] [id number] [place] [address] Jan, [facility] [address] [id number] [place] [address] Jan, [facility] [address] [id number] [place] [address] Jan, [facility] [address] [id number] [place] [address] Jan, [facility] [address] [id number] [place] [address] Jan, [facility] [address] [id number] [place] [address] Jan, [facility] [address] [id number] [place] [address] Jan, [facility] [address] [id number] [place] [address] Jan, [facility] [address] [id number] [place] [address] Dec, [facility] [address] [id number] [place] [address] Dec, [facility] [address] [id number] [place] [address] Dec, [facility] [address] [id number] [place] [address] Dec, [facility] [address] [id number] [place] [address] Oct, [facility] [address] [id number] [place] [address] Sep, [facility] [address] [id number] [place] [address] Sep, [facility] [address] [id number] [place] [address] Sep, [facility] [address] [id number] [place] [address] Sep, [facility] [address] [id number] [place] [address] Jun, [facility] [address] [id number] [place] [address] May, [facility] [address] [id number] [place] [address] 14 Apr, 2011 [facility] [address] [id number] [place] [address] Apr, [facility] [address] [id number] [place] [address] Apr, [facility] [address] [id number] [place] [address] Feb, [facility] [address] [id number] [place] [address] Feb, [facility] [address] [id number] [place] [address] Jan, [facility] [address] [id number] [place] [address] Jan, [facility] [address] [id number] [place] [address] Jan, [facility] [address] [id number] [place] [address] 31 Feb, 2010 [facility] [address] [id number] [place] [address] 30 Feb, 2010 [facility] [address] [id number] [place] [address] 30 Feb, 2010 [facility] [address] [id number] [place] [address] 30 Feb, 2010 [facility] [address] [id number] [place] [address] 27 Feb, 2010 [facility] [address] [id number] [place] [address] 23 Feb, 2010 [facility] [address] [id number] [place] [address] 20 Feb, 2010 [facility] [id number] [place] [address] Feb, [facility] [id number] [place] [address] Feb, [facility] [address] [id number] [place] [address] Feb, [facility] [id number] [place] [address] Jan, [facility] [id number] [place] [address] Dec, [facility] [id number] [place] [address] Nov, [facility] [id number] [place] [address] Mar, [facility] [id number] [place] [address] Jan, [facility] [id number] [place] [address] 15 Dec, 2008 [facility] [id number] [place] [address] Dec, [facility] [id number] [place] [address] Sep, [facility] [id number] [place] [address] Jun, [facility] [id number] [place] [address] Mar, [facility] [address] [id number] [place] [address] Jan, IMMUNIZATIONS No Known Immunizations SOCIAL HISTORY [...] Heart cath per Dr. Burton at [facility]- hypotension 08/08 Hospitalization History Hematochezia-[facility] 07/27/16
--- OUTSIDE RECORDS SUMMARY | 2019-08-06 07:54 | XMS REPORT ---
Author Author ChristLavern Doctor Organization [facility] Address Unknown Phone Unavailable Care Team Providers Care Hospital Nurse Liaison Name Role Phone Migration, Doctor Unavailable Unavailable PROBLEMS Type Condition ICD9-CM Code VMI29-EB Code Onset Dates Condition S tatus SNOMED Code Problem Cataracts, bilateral H26.9 Active 65617102 Problem CVA (cerebral vascular accident) I63.9 Active 848888962 Problem Hyperlipemia E78.5 Active 2062066 4 Problem Lymphocytosis D72.820 Active 848726 09 Problem Peripheral vascular disease, unspecified I73.9 Active 045602688 Problem Iron deficiency anemia due to chronic blood loss D 50.0 Active 349878086 Problem Thyroid nodule E04.1 Active 54289 5005 Problem Dysfunction of right eustachian tube H69.81 Active 84955795 Problem Post-surgical 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 A ctive 44361637 Problem 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 2755 28935 Problem Diverticulitis of intestine without perforation or abscess without bleeding, unspecified part of intestinal tract K57.92 Active 385109703 Problem Essential hypertension I10 Active 29344685 Problem Lung nodule, solitary R91.1 Active 879078614 Problem 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 of 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 Active [id number] ALLERGIES No Information ENCOUNTERS Encounter Location Date Diagnosis [facility] [address] [id number] [place] [address] Mar, [facility] [address] [facility] [id number] [address] [place] [address] Mar, Left foot pain M79.672 [facility] [address] [id number] [place] [address] Mar, Hyperlipemia E78.5 [facility] [address] [id number] [place] [address] Jan, Encounter for immunization Z23 [facility] [address] [address] Dec, [facility] [address] [address] Nov, [facility] [address] [address] Oct, [facility] [address] [address] Oct, Arthralgia, unspecified joint M25.50 [place] [address] [address] Oct, Seborrheic keratosis L82.1 [place] [address] [address] Oct, [place] [address] [address] Sep, [place] [address] [address] Sep, Other fatigue R53.83 ; Candidiasis B37.9 and Arthralgia, unspecified joint M25.50 [place] [address] [address] Jun, Post-surgical 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 [place] [address] [address] May, Post-surgical 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 and P eripheral vascular disease, unspecified I73.9 [place] [address] [address] Mar, [place] [address] [address] Mar, Post-surgical 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 [place] [address] [address] Jan, Nodular thyroid disease E04.1 ; Lung mas s R91.8 ; Iron deficiency anemia due to chronic blood loss D50.0 ; Essential hypertension I10 and 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 of 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 [facility] [address] [id number] [place] [id number] Dec, Dental examination Z01.20 [place] [address] [place] [id number] [place] [address] Dec, Thyroid nodule E04.1 [place] [address] [address] Oct, Lung nodule, solitary R91.1 [place] [address] [address] Oct, [place] [address] [address] Oct, [facility] [address] [address] Oct, [place] [address] [address] Sep, [place] [address] [address] Aug, [place] [address] [address] July, Arthralgia, unspecified joint M25.50 ; E ssential hypertension I10 ; Seborrheic keratosis L82.1 and LLQ abdominal pain R10.32 [place] [address] [address] Feb, Arthralgia, unspecified joint M25.50 [place] [address] [address] Feb, Arthralgia, unspecified joint M25.50 [place] [address] [address] Dec, Arthralgia, unspecified joint M25.50 [facility] [address] [address] Dec, Right flank pain R10.9 ; Left foot pain M79.672 ; Arthralgia, unspecified joint M25.50 and Encounter for immunization Z23 [place] [address] [address] 09 Dec, 2016 CVA (cerebral vascular accident) I63.9 [place] [address] [address] Dec, RUQ abdominal pain R10.11 [place] [address] [address] Dec, Right lower quadrant pain R10.31 ; Diver ticulitis of intestine without perforation or abscess without bleeding, unspecified part of intestinal tract K57.92 and Internal hemorrhoids K64.8 [place] [address] [address] Nov, [address] [address] Oct, [place] [address] [address] Aug, Iron deficiency anemia due to chronic bl ood loss D50.[address] [address] Aug, Peripheral vascular disease, unspecified I73.9 and Colitis K52.[address] [address] 14 Aug, 2016 H/O: GI bleed Z87.19 [place] [address] [address] 07 Aug, 2016 CVA (cerebral vascular accident) I63.[address] [address] Aug, RUQ abdominal pain R10.[address] [address] July, RUQ abdominal pain R10.11 and Lymphocyto sis D72.[address] [place] [address] July, [facility] [address] [place] [id number] [place] [address] July, Colitis K52.9 [facility] [id number] [id number] July, [facility] [address] [address] Jun, Right flank pain R10.9 [facility] [address] [address] May, Urinary tract infection without hematuri a, site unspecified N39.0 and Right flank pain R10.9 [facility] [address] [address] Feb, Acute non-recurrent maxillary sinusitis J01.00 and Need for hepatitis C screening test Z11.59 [facility] [address] [id number] Jan, Dental examination Z01.20 [facility] [address] [id number] Dec, Dental examination Z01.20 [facility] [address] [id number] Dec, Dental examination Z01.20 [facility] [address] [address] Dec, [facility] [address] [address] Dec, [facility] [address] [id number] Dec, Dental examination Z01.20 [facility] [address] [address] Nov, [facility] [address] [id number] Nov, Dental examination Z01.20 [facility] [address] [address] Oct, Arthralgia, unspecified joint M25.50 and Essential hypertension I10 [facility] [address] [address] Oct, [facility] [address] [facility] [id number] [place] [address] Sep, Bilateral otitis media, unsp ecified chronicity, unspecified otitis media type H66.93 [facility] [address] [id number] Sep, Dental examination Z01.20 [facility] [address] [id number] 16 Aug, 2015 Dental examination V72.2 [place] [address] [address] 14 Aug, 2015 Essential hypertension I10 and Muscle cr amping R25.2 [facility] [address] [address] 09 Aug, 2015 Tension-type headache, not intractable, unspecified chronicity pattern G44.209 ; Muscle cramping R25.2 and Right leg pain M79.604 [facility] [address] [id number] July, Dental examination Z01.20 [facility] [address] [id number] July, Encounter for dental examination and jitendra aning without abnormal findings Z01.20 and Dental caries K02.9 [facility] [address] [id number] Jun, Encounter for dental examination Z01.20 [facility] [address] [address] 26 Apr, 2015 [facility] [address] [facility] [id number] [place] [address] 02 Apr, 2015 Bronchitis J40 [facility] [address] [place] [id number] Feb, Hyperlipemia E78.5 ; Carotid arterial di sease I77.9 ; Tobacco use Z72.0 ; Hypertension I10 ; RBBB I45.10 and CVA (cerebral vascular accident) I63.9 [place] [address] [address] Feb, Status post CVA Z86.73 ; Dysfunction of right eustachian tube H69.81 and Essential hypertension I10 [place] [address] [address] 02 Dec, 2014 Encounter for immunization Z23 [address] [address] Oct, PVD (peripheral vascular disease) 443.9 and Weight loss 783.21 [place] [address] [address] Oct, PVD (peripheral vascular disease) 443.9 and Weight loss 783.21 [place] [address] [address] 17 Aug, 2014 Hyperlipidemia 272.4 ; Carotid arterial disease 447.9 ; Tobacco dependency 305.1 ; Hypertension 401.9 ; RBBB 426.4 and CVA (cerebral infarction) 434.91 [place] [address] [address] Aug, [place] [address] [address] Aug, 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.7 9 [place] [address] [address] July, Chest pain, unspecified 786.50 ; Occlusi [...] prophylactic vaccination and inoculation, Influenza V04.81 [facility] [address] [address] Jun, [facility] [address] [address] Jun, [facility] [address] [address] May, [facility] [address] [address] May, [facility] [address] [address] May, [facility] [address] [address] May, [facility] [address] [address] Mar, [facility] [address] [address] Mar, [facility] [address] [address] Mar, [facility] [address] [address] Mar, [facility] [address] [address] Mar, [facility] [address] [address] Mar, [facility] [address] [id number] [place] [address] Mar, [facility] [address] [id number] [place] [address] Mar, [facility] [address] [id number] [place] [address] Mar, [facility] [address] [id number] [place] [address] Mar, [facility] [address] [id number] [place] [address] Feb, [facility] [address] [id number] [place] [address] Feb, [facility] [address] [id number] [place] [address] Feb, [facility] [address] [id number] [place] [address] Feb, [facility] [address] [id number] [place] [address] Feb, [facility] [address] [id number] [place] [address] Feb, [facility] [address] [id number] [place] [address] Feb, [facility] [address] [id number] [place] [address] Feb, [facility] [address] [id number] [place] [address] Jan, [facility] [address] [id number] [place] [address] Jan, [facility] [address] [id number] [place] [address] Nov, [facility] [address] [id number] [place] [address] Nov, [facility] [address] [id number] [place] [address] Sep, [facility] [address] [facility] [id number] [facility] [place] [address] Sep, [facility] [address] [facility] [id number] [facility] [place] [address] Sep, [facility] [address] [id number] [facility] [place] [address] Sep, [facility] [address] [id number] [facility] [place] [address] Aug, [facility] [address] [facility] [id number] [facility] [place] [address] Aug, [facility] [address] [id number] [place] [address] Aug, [facility] [address] [id number] [place] [address] Aug, [facility] [address] [id number] [place] [address] Aug, [facility] [address] [id number] [place] [address] Aug, [facility] [address] [id number] [place] [address] July, [facility] [address] [id number] [place] [address] July, [facility] [address] [id number] [place] [address] July, [facility] [address] [id number] [place] [address] July, [facility] [address] [id number] [place] [address] Jun, [facility] [address] [id number] [place] [address] Jun, [facility] [address] [id number] [place] [address] Apr, [facility] [address] [id number] [place] [address] Apr, [facility] [address] [id number] [place] [address] Apr, [facility] [address] [id number] [place] [address] Apr, [facility] [address] [id number] [place] [address] Apr, [facility] [address] [id number] [place] [address] Apr, [facility] [address] [id number] [place] [address] Mar, [facility] [address] [id number] [place] [address] Mar, [facility] [address] [id number] [place] [address] Mar, [facility] [address] [id number] [place] [address] Mar, [facility] [address] [id number] [place] [address] Mar, [facility] [address] [id number] [place] [address] Feb, [facility] [address] [id number] [place] [address] Feb, [facility] [address] [id number] [place] [address] Feb, [facility] [address] [id number] [place] [address] Feb, [facility] [address] [place] [id number] [place] [address] Feb, [facility] [address] [id number] [place] [address] Feb, [facility] [address] [id number] [place] [address] Feb, 2012 [facility] [address] [id number] [place] [address] 06 Feb, 2012 [facility] [address] [id number] [place] [address] Feb, [facility] [address] [id number] [place] [address] Feb, [facility] [address] [id number] [place] [address] Feb, [facility] [address] [id number] [place] [address] Feb, [facility] [address] [id number] [place] [address] Jan, [facility] [address] [id number] [place] [address] Jan, [facility] [address] [id number] [place] [address] Jan, [facility] [address] [id number] [place] [address] Jan, [facility] [address] [id number] [place] [address] Jan, [facility] [address] [id number] [place] [address] Jan, [facility] [address] [id number] [place] [address] Jan, [facility] [address] [id number] [place] [address] Jan, [facility] [address] [id number] [place] [address] Jan, [facility] [address] [id number] [place] [address] Jan, [facility] [address] [id number] [place] [address] Jan, [facility] [address] [id number] [place] [address] Jan, [facility] [address] [id number] [place] [address] Jan, [facility] [address] [id number] [place] [address] Jan, [facility] [address] [id number] [place] [address] Jan, [facility] [address] [id number] [place] [address] Dec, [facility] [address] [id number] [place] [address] Dec, [facility] [address] [id number] [place] [address] Dec, [facility] [address] [id number] [place] [address] Dec, [facility] [address] [id number] [place] [address] Oct, [facility] [address] [id number] [place] [address] Oct, [facility] [address] [id number] [place] [address] Oct, [facility] [address] [id number] [place] [address] Sep, [facility] [address] [id number] [place] [address] Aug, [facility] [address] [id number] [place] [address] July, [facility] [address] [id number] [place] [address] July, [facility] [address] [id number] [place] [address] July, [facility] [address] [id number] [place] [address] July, [facility] [address] [id number] [place] [address] May, [facility] [address] [id number] [place] [address] May, [facility] [address] [id number] [place] [address] Mar, [facility] [address] [id number] [place] [address] Mar, [facility] [address] [id number] [place] [address] Mar, [facility] [address] [id number] [place] [address] Feb, [facility] [address] [id number] [place] [address] Feb, [facility] [address] [id number] [place] [address] Feb, [facility] [address] [id number] [place] [address] Feb, [facility] [address] [id number] [place] [address] Feb, [facility] [address] [id number] [place] [address] Feb, [facility] [address] [id number] [place] [address] Jan, [facility] [address] [id number] [place] [address] Jan, [facility] [address] [id number] [place] [address] Jan, [facility] [address] [id number] [place] [address] Jan, [facility] [address] [id number] [place] [address] Jan, [facility] [address] [id number] [place] [address] Jan, [facility] [address] [id number] [place] [address] Jan, [facility] [address] [id number] [place] [address] Jan, [facility] [address] [id number] [place] [address] Dec, [facility] [address] [id number] [place] [address] Dec, [facility] [address] [facility] [id number] [place] [address] Dec, [facility] [address] [id number] [place] [address] Dec, [facility] [address] [id number] [place] [address] Oct, [facility] [address] [id number] [place] [address] Sep, [facility] [address] [id number] [place] [address] Sep, [facility] [address] [id number] [place] [address] Sep, [facility] [address] [id number] [place] [address] Sep, [facility] [address] [id number] [place] [address] Jun, [facility] [address] [id number] [place] [address] May, [facility] [address] [id number] [place] [address] Apr, [facility] [address] [id number] [place] [address] Apr, [facility] [address] [id number] [place] [address] Apr, [facility] [address] [id number] [place] [address] 12 Feb, 2011 [facility] [address] [id number] [place] [address] 12 Feb, 2011 [facility] [address] [id number] [place] [address] 30 Jan, 2011 [facility] [address] [id number] [place] [address] 28 Jan, 2011 [facility] [address] [id number] [place] [address] Jan, [facility] [address] [id number] [place] [address] 31 Feb, 2010 [facility] [address] [id number] [place] [address] 30 Feb, 2010 [facility] [address] [id number] [place] [address] 30 Feb, 2010 [facility] [address] [id number] [place] [address] 30 Feb, 2010 [facility] [address] [id number] [place] [address] 27 Feb, 2010 [facility] [address] [id number] [place] [address] 23 Feb, 2010 [facility] [address] [id number] [place] [address] 20 Feb, 2010 [facility] [address] [id number] [place] [address] 18 Feb, 2010 [facility] [address] [id number] [place] [address] 18 Feb, 2010 [facility] [address] [id number] [place] [address] 06 Feb, 2010 [facility] [address] [id number] [place] [address] Jan, [facility] [address] [id number] [place] [address] Dec, [facility] [address] [id number] [place] [address] Nov, [facility] [id number] [place] [address] Mar, [facility] [address] [id number] [place] [address] Jan, [facility] [id number] [place] [address] Dec, [facility] [id number] [place] [address] Dec, [facility] [id number] [place] [address] Sep, [facility] [id number] [place] [address] Jun, [facility] [id number] [place] [address] Mar, [facility] [id number] [place] [address] Jan, IMMUNIZATIONS No Known Immunizations SOCIAL HISTORY Never Assessed REASON FOR VISIT PLAN OF CARE VITAL SIGNS Height 57 in 2013-08-28 Weight 148.25 lbs 2013-08-28 Heart Rate 68 bpm 2013-08-28 Respiratory Rate 18 2013-08-28 Blood pressure systolic 136 mmHg 2013-08-28 Blood pressure diastolic 78 mmHg 2013-08-28 MEDICATIONS Unknown Medications RESULTS No Results PROCEDURES Procedure Date Ordered Result Body Site MEASURE BLOOD OXYGEN LEVEL August 28, 2013 LIPID PANEL August 28, 2013 COMPREHEN METABOLIC PANEL August 28, 2013 EXTRACRANIAL STUDY August 28, 2013 VENIPUNCT, ROUTINE* August 28, 2013 INSTRUCTIONS MEDICATIONS ADMINISTERED No Known Medications [...] Heart cath per Dr. Burton at [facility]- hypotension 08/08 Hospitalization History Hematochezia-[facility] 07/27/16
--- OUTSIDE RECORDS SUMMARY | 2019-08-06 07:54 | XMS REPORT ---
Author Author Lavern HUGHES Organization [facility] Address [address] [place] [address] Care Team Providers Care Anime Designer Name Role Phone DAY HUGHES Unavailable PROBLEMS Type Condition ICD9-CM Code [id number] Code Onset Dates Condition S tatus SNOMED Code Problem Cataracts, bilateral H26.9 Active 12447996 Problem CVA (cerebral vascular accident) I63.9 Active 258166081 Problem Hyperlipemia E78.5 Active 5805722 4 Problem Lymphocytosis D72.820 Active 905115 09 Problem Peripheral vascular disease, unspecified I73.9 Active 723101071 Problem Iron deficiency anemia due to chronic blood loss D 50.0 Active 472439799 Problem Thyroid nodule E04.1 Active 63956 5005 Problem Dysfunction of right eustachian tube H69.81 Active 13949728 Problem Post-surgical 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 A ctive 44425579 Problem 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 2755 85805 Problem Diverticulitis of intestine without perforation or abscess without bleeding, unspecified part of intestinal tract K57.92 Active 431312599 Problem Essential hypertension I10 Active 43182700 Problem Lung nodule, solitary R91.1 Active 248813756 Problem 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 of 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 Active [id number] ALLERGIES No Information ENCOUNTERS Encounter Location Date Diagnosis [facility] [address] [id number] [place] [address] Mar, [facility] [address] [facility] [id number] [address] [place] [address] Mar, Left foot pain M79.672 [facility] [address] [id number] [place] [address] Mar, Hyperlipemia E78.5 [facility] [address] [address] Jan, Encounter for immunization Z23 [facility] [address] [address] Dec, [facility] [address] [address] Nov, [facility] [address] [address] Oct, [facility] [address] [address] Oct, Arthralgia, unspecified joint M25.50 [place] [address] [address] Oct, Seborrheic keratosis L82.1 [place] [address] [address] Oct, [place] [address] [address] Sep, [place] [address] [address] Sep, Other fatigue R53.83 ; Candidiasis B37.9 and Arthralgia, unspecified joint M25.50 [place] [address] [address] Jun, Post-surgical 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 [place] [address] [address] May, Post-surgical 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 and P eripheral vascular disease, unspecified I73.9 [place] [address] [address] Mar, [place] [address] [address] Mar, Post-surgical 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 [place] [address] [address] Jan, Nodular thyroid disease E04.1 ; Lung mas s R91.8 ; Iron deficiency anemia due to chronic blood loss D50.0 ; Essential hypertension I10 and 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 of 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 [facility] [address] [id number] [place] [id number] Dec, Dental examination Z01.20 [facility] [id number] [place] [address] Dec, Thyroid nodule E04.1 [facility] [address] [address] Oct, Lung nodule, solitary R91.1 [place] [address] [address] Oct, [facility] [address] [address] Oct, [facility] [address] [address] Oct, [facility] [address] [address] Sep, [facility] [address] [address] Aug, [facility] [address] [address] July, Arthralgia, unspecified joint M25.50 ; E ssential hypertension I10 ; Seborrheic keratosis L82.1 and LLQ abdominal pain R10.32 [facility] [id number] [place] [address] Feb, Arthralgia, unspecified joint M25.50 [place] [address] [address] Feb, Arthralgia, unspecified joint M25.50 [facility] [address] [address] Dec, Arthralgia, unspecified joint M25.50 [facility] [address] [address] Dec, Right flank pain R10.9 ; Left foot pain M79.672 ; Arthralgia, unspecified joint M25.50 and Encounter for immunization Z23 [place] [address] [address] 09 Dec, 2016 CVA (cerebral vascular accident) I63.9 [place] [address] [address] Dec, RUQ abdominal pain R10.[address] [address] Dec, Right lower quadrant pain R10.31 ; Diver ticulitis of intestine without perforation or abscess without bleeding, unspecified part of intestinal tract K57.92 and Internal hemorrhoids K64.8 [place] [address] [address] Nov, [place] [address] [address] Oct, [place] [address] [address] Aug, Iron deficiency anemia due to chronic bl ood loss D50.[address] [address] Aug, Peripheral vascular disease, unspecified I73.9 and Colitis K52.9 [place] [address] [address] Aug, H/O: GI bleed Z87.[address] [address] 07 Aug, 2016 CVA (cerebral vascular accident) I63.9 [place] [address] [address] Aug, RUQ abdominal pain R10.[address] [address] July, RUQ abdominal pain R10.11 and Lymphocyto sis D72.820 [facility] [address] [address] July, [facility] [address] [address] July, Colitis K52.9 [facility] [address] [id number] [id number] July, [facility] [address] [address] Jun, Right flank pain R10.9 [facility] [address] [address] May, Urinary tract infection without hematuri a, site unspecified N39.0 and Right flank pain R10.9 [facility] [address] [address] Feb, Acute non-recurrent maxillary sinusitis J01.00 and Need for hepatitis C screening test Z11.59 [facility] [address] [id number] Jan, Dental examination Z01.20 [facility] [address] [id number] Dec, Dental examination Z01.20 [facility] [address] [id number] Dec, Dental examination Z01.20 [facility] [address] [address] Dec, [facility] [address] [address] Dec, [facility] [address] [id number] Dec, Dental examination Z01.20 [facility] [address] [address] Nov, [facility] [address] [id number] Nov, Dental examination Z01.20 [facility] [address] [address] Oct, Arthralgia, unspecified joint M25.50 and Essential hypertension I10 [facility] [address] [address] Oct, [facility] [address] [place] [id number] [address] [place] [address] Sep, Bilateral otitis media, unsp ecified chronicity, unspecified otitis media type H66.93 [facility] [address] [id number] Sep, Dental examination Z01.20 [facility] [address] [id number] 16 Aug, 2015 Dental examination V72.2 [place] [address] [address] 14 Aug, 2015 Essential hypertension I10 and Muscle cr amping R25.[address] [address] 09 Aug, 2015 Tension-type headache, not intractable, unspecified chronicity pattern G44.209 ; Muscle cramping R25.2 and Right leg pain M79.604 [facility] [address] [id number] July, Dental examination Z01.20 [facility] [address] [id number] July, Encounter for dental examination and jitendra aning without abnormal findings Z01.20 and Dental caries K02.9 [facility] [address] [id number] 08 Jun, 2015 Encounter for dental examination Z01.20 [facility] [address] [address] Apr, [facility] [address] [facility] [id number] [address] [address] 02 Apr, 2015 Bronchitis J40 [place] [address] [address] 09 Feb, 2015 Hyperlipemia E78.5 ; Carotid arterial di sease I77.9 ; Tobacco use Z72.0 ; Hypertension I10 ; RBBB I45.10 and CVA (cerebral vascular accident) I63.[address] [address] Feb, Status post CVA Z86.73 ; Dysfunction of right eustachian tube H69.81 and Essential hypertension I10 [address] [address] 02 Dec, 2014 Encounter for immunization Z23 [address] [address] Oct, PVD (peripheral vascular disease) 443.9 and Weight loss 783.[address] [address] Oct, PVD (peripheral vascular disease) 443.9 and Weight loss 783.[address] [address] Aug, Hyperlipidemia 272.4 ; Carotid arterial disease 447.9 ; Tobacco dependency 305.1 ; Hypertension 401.9 ; RBBB 426.4 and CVA (cerebral infarction) 434.[address] [address] Aug, [address] [address] Aug, 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.[address] [address] July, Chest pain, unspecified 786.50 ; Occlusi [...] for prophylactic vaccination and inoculation, Influenza V04.81 [facility] [address] [address] Jun, [facility] [address] [address] Jun, [facility] [address] [address] May, [facility] [address] [address] May, [facility] [address] [address] May, [facility] [address] [address] May, [facility] [address] [address] Mar, [facility] [address] [address] Mar, [facility] [address] [address] Mar, [facility] [address] [address] Mar, [facility] [address] [address] Mar, [facility] [address] [id number] [place] [address] Mar, [facility] [address] [id number] [place] [address] Mar, [facility] [address] [id number] [place] [address] Mar, [facility] [address] [id number] [place] [address] Mar, [facility] [address] [id number] [place] [address] Mar, [facility] [address] [id number] [place] [address] Feb, [facility] [address] [id number] [place] [address] Feb, [facility] [address] [id number] [place] [address] Feb, [facility] [address] [id number] [place] [address] Feb, [facility] [address] [id number] [place] [address] Feb, [facility] [address] [id number] [place] [address] Feb, [facility] [address] [id number] [place] [address] Feb, [facility] [address] [id number] [place] [address] Feb, [facility] [address] [id number] [place] [address] Jan, [facility] [address] [id number] [place] [address] Jan, [facility] [address] [id number] [place] [address] Nov, [facility] [address] [id number] [place] [address] Nov, [facility] [address] [facility] [id number] [place] [address] Sep, [facility] [address] [facility] [id number] [place] [address] Sep, [facility] [address] [id number] [place] [address] Sep, [facility] [address] [id number] [place] [address] Sep, [facility] [address] [facility] [id number] [place] [address] Aug, [facility] [address] [id number] [place] [address] Aug, [facility] [address] [id number] [place] [address] Aug, [facility] [address] [id number] [place] [address] Aug, [facility] [address] [id number] [place] [address] Aug, [facility] [address] [id number] [place] [address] Aug, [facility] [address] [id number] [place] [address] July, [facility] [address] [id number] [place] [address] July, [facility] [address] [id number] [place] [address] July, [facility] [address] [id number] [place] [address] July, [facility] [address] [id number] [place] [address] Jun, [facility] [address] [id number] [place] [address] Jun, [facility] [address] [id number] [place] [address] Apr, [facility] [address] [id number] [place] [address] Apr, [facility] [address] [id number] [place] [address] Apr, [facility] [address] [id number] [place] [address] Apr, [facility] [address] [id number] [place] [address] Apr, [facility] [address] [id number] [place] [address] Apr, [facility] [address] [id number] [place] [address] Mar, [facility] [address] [id number] [place] [address] Mar, [facility] [address] [id number] [place] [address] Mar, [facility] [address] [id number] [place] [address] Mar, [facility] [address] [id number] [place] [address] Mar, [facility] [address] [id number] [place] [address] Feb, [facility] [address] [id number] [place] [address] Feb, [facility] [address] [id number] [place] [address] Feb, [facility] [address] [id number] [place] [address] Feb, [facility] [address] [id number] [place] [address] Feb, [facility] [address] [id number] [place] [address] Feb, [facility] [address] [id number] [place] [address] Feb, [facility] [address] [id number] [place] [address] Feb, [facility] [address] [id number] [place] [address] Feb, [facility] [address] [id number] [place] [address] Feb, [facility] [address] [id number] [place] [address] Feb, [facility] [address] [id number] [place] [address] Feb, [facility] [address] [id number] [place] [address] Jan, [facility] [address] [id number] [place] [address] Jan, [facility] [address] [id number] [place] [address] Jan, [facility] [address] [id number] [place] [address] Jan, [facility] [address] [id number] [place] [address] Jan, [facility] [address] [id number] [place] [address] Jan, [facility] [address] [id number] [place] [address] Jan, [facility] [address] [id number] [place] [address] Jan, [facility] [address] [id number] [place] [address] Jan, [facility] [address] [id number] [place] [address] Jan, [facility] [address] [id number] [place] [address] Jan, [facility] [address] [id number] [place] [address] Jan, [facility] [address] [id number] [place] [address] Jan, [facility] [address] [id number] [place] [address] Jan, [facility] [address] [id number] [place] [address] Jan, [facility] [address] [id number] [place] [address] Dec, [facility] [address] [id number] [place] [address] Dec, [facility] [address] [id number] [place] [address] Dec, [facility] [address] [id number] [place] [address] Dec, [facility] [address] [id number] [place] [address] Oct, [facility] [address] [id number] [place] [address] Oct, [facility] [address] [id number] [place] [address] Oct, [facility] [address] [id number] [place] [address] Sep, [facility] [address] [id number] [place] [address] Aug, [facility] [address] [id number] [place] [address] July, [facility] [address] [id number] [place] [address] July, [facility] [address] [id number] [place] [address] July, [facility] [address] [id number] [place] [address] July, [facility] [address] [id number] [place] [address] May, [facility] [address] [id number] [place] [address] May, [facility] [address] [id number] [place] [address] Mar, [facility] [address] [id number] [place] [address] Mar, [facility] [address] [id number] [place] [address] Mar, [facility] [address] [id number] [place] [address] Feb, [facility] [address] [id number] [place] [address] Feb, [facility] [address] [id number] [place] [address] Feb, [facility] [address] [id number] [place] [address] Feb, [facility] [address] [id number] [place] [address] Feb, [facility] [address] [id number] [place] [address] Feb, [facility] [address] [id number] [place] [address] Jan, [facility] [address] [id number] [place] [address] Jan, [facility] [id number] [place] [address] Jan, [facility] [address] [id number] [place] [address] Jan, [facility] [address] [id number] [place] [address] Jan, [facility] [address] [id number] [place] [address] Jan, [facility] [address] [id number] [place] [address] Jan, [facility] [address] [id number] [place] [address] Jan, [facility] [address] [id number] [place] [address] Dec, [facility] [address] [facility] [id number] [place] [address] Dec, [facility] [address] [id number] [place] [address] Dec, [facility] [address] [id number] [place] [address] Dec, [facility] [address] [id number] [place] [address] Oct, [facility] [address] [id number] [place] [address] Sep, [facility] [address] [id number] [place] [address] Sep, [facility] [address] [id number] [place] [address] Sep, [facility] [address] [id number] [place] [address] Sep, [facility] [address] [id number] [place] [address] Jun, [facility] [place] [facility] [address] [id number] [place] [address] May, [facility] [place] [facility] [id number] [place] [address] Apr, [facility] [place] [facility] [id number] [place] [address] Apr, [facility] [place] [facility] [id number] [place] [address] 03 Apr, 2011 [facility] [place] [facility] [id number] [place] [address] Feb, [facility] [place] [facility] [id number] [place] [address] Feb, [facility] [place] [facility] [id number] [place] [address] 30 Jan, 2011 [facility] [place] [facility] [id number] [place] [address] Jan, [facility] [place] [facility] [id number] [place] [address] Jan, [facility] [place] [facility] [id number] [place] [address] 31 Feb, 2010 [facility] [place] [facility] [id number] [place] [address] 30 Feb, 2010 [facility] [place] [facility] [id number] [place] [address] 30 Feb, 2010 [facility] [place] [facility] [id number] [place] [address] 30 Feb, 2010 [facility] [place] [facility] [id number] [place] [address] 27 Feb, 2010 [facility] [place] [facility] [id number] [place] [address] 23 Feb, 2010 [facility] [place] [facility] [id number] [place] [address] 20 Feb, 2010 [facility] [place] [facility] [id number] [place] [address] 18 Feb, 2010 [facility] [place] [facility] [id number] [place] [address] 18 Feb, 2010 [facility] [place] [facility] [id number] [place] [address] 06 Feb, 2010 [facility] [place] [facility] [id number] [place] [address] Jan, [facility] [id number] [place] [address] Dec, [facility] [address] [address] Nov, [facility] [id number] [place] [address] Mar, [facility] [address] [address] Jan, [facility] [address] [address] Dec, [facility] [address] [address] Dec, [facility] [address] [address] Sep, [facility] [address] [address] Jun, [facility] [address] [address] Mar, [facility] [address] [address] Jan, IMMUNIZATIONS No Known Immunizations SOCIAL HISTORY [...] Heart cath per Dr. Burton at [facility]- hypotension 08/08 Hospitalization History Hematochezia-[facility] 07/27/16
--- OUTSIDE RECORDS SUMMARY | 2019-08-06 07:55 | XMS REPORT ---
Author Author Lavern HUGHES Organization [facility] Address [address] [place] [address] Care Team Providers Care Lehr Stripper Name Role Phone DAY HUGHES Unavailable PROBLEMS Type Condition ICD9-CM Code SLW40-NT Code Onset Dates Condition S tatus SNOMED Code Problem Cataracts, bilateral H26.9 Active 41448065 Problem CVA (cerebral vascular accident) I63.9 Active 555105624 Problem Hyperlipemia E78.5 Active 2316159 4 Problem Lymphocytosis D72.820 Active 233490 09 Problem Peripheral vascular disease, unspecified I73.9 Active 489658207 Problem Iron deficiency anemia due to chronic blood loss D 50.0 Active 319165390 Problem Thyroid nodule E04.1 Active 93195 5005 Problem Dysfunction of right eustachian tube H69.81 Active 27966332 Problem Post-surgical 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 A ctive 29078098 Problem 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 2755 49605 Problem Diverticulitis of intestine without perforation or abscess without bleeding, unspecified part of intestinal tract K57.92 Active 182517961 Problem Essential hypertension I10 Active 18188584 Problem Lung nodule, solitary R91.1 Active 453844784 Problem 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 of 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 Active [id number] ALLERGIES No Information ENCOUNTERS Encounter Location Date Diagnosis [facility] [address] [id number] [place] [address] Apr, [facility] [address] [facility] [id number] [address] [place] [address] Mar, Left foot pain M79.672 [facility] [address] [id number] [place] [address] 02 Mar, 2019 Hyperlipemia E78.5 [facility] [address] [address] Jan, Encounter for immunization Z23 [place] [address] [address] Dec, [facility] [address] [address] Nov, [facility] [address] [address] Oct, [facility] [address] [address] Oct, Arthralgia, unspecified joint M25.50 [place] [address] [address] Oct, Seborrheic keratosis L82.1 [place] [address] [address] Oct, [facility] [address] [address] Sep, [place] [address] [address] Sep, Other fatigue R53.83 ; Candidiasis B37.9 and Arthralgia, unspecified joint M25.50 [place] [address] [address] Jun, Post-surgical 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 [place] [address] [address] May, Post-surgical 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 and P eripheral vascular disease, unspecified I73.9 [place] [address] [address] Mar, [place] [address] [address] Mar, Post-surgical 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 [place] [address] [address] Jan, Nodular thyroid disease E04.1 ; Lung mas s R91.8 ; Iron deficiency anemia due to chronic blood loss D50.0 ; Essential hypertension I10 and 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 of 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 [facility] [address] [id number] [place] [id number] Dec, Dental examination Z01.20 [facility] [address] [place] [id number] [place] [address] Dec, Thyroid nodule E04.1 [facility] [address] [address] Oct, Lung nodule, solitary R91.1 [place] [address] [address] Oct, [facility] [address] [address] Oct, [place] [address] [address] Oct, [facility] [address] [address] Sep, [place] [address] [address] Aug, [place] [address] [address] July, Arthralgia, unspecified joint M25.50 ; E ssential hypertension I10 ; Seborrheic keratosis L82.1 and LLQ abdominal pain R10.32 [facility] [address] [address] Feb, Arthralgia, unspecified joint M25.50 [place] [address] [address] Feb, Arthralgia, unspecified joint M25.50 [facility] [address] [address] Dec, Arthralgia, unspecified joint M25.50 [facility] [address] [address] 18 Dec, 2016 Right flank pain R10.9 ; Left foot pain M79.672 ; Arthralgia, unspecified joint M25.50 and Encounter for immunization Z23 [place] [address] [address] 09 Dec, 2016 CVA (cerebral vascular accident) I63.9 [place] [address] [address] Dec, RUQ abdominal pain R10.[address] [address] Dec, Right lower quadrant pain R10.31 ; Diver ticulitis of intestine without perforation or abscess without bleeding, unspecified part of intestinal tract K57.92 and Internal hemorrhoids K64.8 [place] [address] [address] Nov, [place] [address] [address] Oct, [place] [address] [address] Aug, Iron deficiency anemia due to chronic bl ood loss D50.[address] [address] Aug, Peripheral vascular disease, unspecified I73.9 and Colitis K52.9 [place] [address] [address] 14 Aug, 2016 H/O: GI bleed Z87.[address] [address] 07 Aug, 2016 CVA (cerebral vascular accident) I63.9 [place] [address] [address] Aug, RUQ abdominal pain R10.[address] [address] July, RUQ abdominal pain R10.11 and Lymphocyto sis D72.820 [facility] [address] [address] July, [facility] [address] [address] July, Colitis K52.9 [facility] [address] [id number] [id number] July, [facility] [address] [address] Jun, Right flank pain R10.9 [facility] [address] [address] May, Urinary tract infection without hematuri a, site unspecified N39.0 and Right flank pain R10.9 [facility] [address] [address] Feb, Acute non-recurrent maxillary sinusitis J01.00 and Need for hepatitis C screening test Z11.59 [facility] [address] [id number] Jan, Dental examination Z01.20 [facility] [address] [id number] Dec, Dental examination Z01.20 [facility] [address] [id number] Dec, Dental examination Z01.20 [facility] [address] [address] Dec, [facility] [address] [address] Dec, [facility] [address] [id number] Dec, Dental examination Z01.20 [facility] [address] [address] Nov, [facility] [address] [id number] 13 Nov, 2015 Dental examination Z01.20 [facility] [address] [address] Oct, Arthralgia, unspecified joint M25.50 and Essential hypertension I10 [facility] [address] [address] Oct, [facility] [address] [place] [id number] [address] [place] [address] Sep, Bilateral otitis media, unsp ecified chronicity, unspecified otitis media type H66.93 [facility] [address] [id number] Sep, Dental examination Z01.20 [facility] [address] [id number] 16 Aug, 2015 Dental examination V72.2 [facility] [address] [place] [address] 14 Aug, 2015 Essential hypertension I10 and Muscle cr amping R25.[address] [address] 09 Aug, 2015 Tension-type headache, not intractable, unspecified chronicity pattern G44.209 ; Muscle cramping R25.2 and Right leg pain M79.604 [facility] [address] [id number] July, Dental examination Z01.20 [facility] [address] [id number] July, Encounter for dental examination and jitendra aning without abnormal findings Z01.20 and Dental caries K02.9 [facility] [address] [id number] Jun, Encounter for dental examination Z01.20 [facility] [address] [address] Apr, [facility] [address] [facility] 2] [id number] [place] [address] 02 Apr, 2015 Bronchitis J40 [place] [address] [address] 09 Feb, 2015 Hyperlipemia E78.5 ; Carotid arterial di sease I77.9 ; Tobacco use Z72.0 ; Hypertension I10 ; RBBB I45.10 and CVA (cerebral vascular accident) I63.9 [place] [address] [address] Feb, Status post CVA Z86.73 ; Dysfunction of right eustachian tube H69.81 and Essential hypertension I10 [address] [address] 02 Dec, 2014 Encounter for immunization Z23 [address] [address] Oct, PVD (peripheral vascular disease) 443.9 and Weight loss 783.21 [place] [address] [address] Oct, PVD (peripheral vascular disease) 443.9 and Weight loss 783.[address] [address] Aug, Hyperlipidemia 272.4 ; Carotid arterial disease 447.9 ; Tobacco dependency 305.1 ; Hypertension 401.9 ; RBBB 426.4 and CVA (cerebral infarction) 434.[address] [address] Aug, [address] [address] Aug, 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.[address] [address] July, Chest pain, unspecified 786.50 ; Occlusi [...] for prophylactic vaccination and inoculation, Influenza V04.81 [facility] [address] [address] Jun, [facility] [address] [address] Jun, [facility] [address] [address] May, [facility] [address] [address] May, [facility] [address] [address] May, [facility] [address] [address] May, [facility] [address] [address] Mar, [facility] [address] [address] Mar, [facility] [address] [address] Mar, [facility] [address] [address] Mar, [facility] [address] [address] Mar, [facility] [address] [id number] [place] [address] Mar, [facility] [address] [id number] [place] [address] Mar, [facility] [address] [id number] [place] [address] Mar, [facility] [address] [id number] [place] [address] Mar, [facility] [address] [id number] [place] [address] Mar, [facility] [address] [id number] [place] [address] Feb, [facility] [address] [id number] [place] [address] Feb, [facility] [address] [place] [id number] [place] [address] Feb, [facility] [address] [id number] [place] [address] Feb, [facility] [address] [id number] [place] [address] Feb, [facility] [address] [id number] [place] [address] Feb, [facility] [address] [id number] [place] [address] Feb, [facility] [address] [id number] [place] [address] Feb, [facility] [address] [id number] [place] [address] Jan, [facility] [address] [id number] [place] [address] Jan, [facility] [address] [id number] [place] [address] Nov, [facility] [address] [id number] [place] [address] Nov, [facility] [address] [facility] [address] [id number] [place] [address] Sep, [facility] [address] [facility] [address]] [id number] [facility] [place] [address] Sep, [facility] [address] [id number] [place] [address] Sep, [facility] [address] [id number] [place] [address] Sep, [facility] [address] [id number] [place] [address] Aug, [facility] [address] [id number] [place] [address] Aug, [facility] [address] [id number] [place] [address] Aug, [facility] [address] [id number] [place] [address] Aug, [facility] [address] [id number] [place] [address] Aug, [facility] [address] [id number] [place] [address] Aug, [facility] [address] [id number] [place] [address] July, [facility] [address] [id number] [place] [address] July, [facility] [address] [id number] [place] [address] July, [facility] [address] [id number] [place] [address] July, [facility] [address] [id number] [place] [address] Jun, [facility] [address] [id number] [place] [address] Jun, [facility] [address] [id number] [place] [address] Apr, [facility] [address] [facility] [id number] [place] [address] Apr, [facility] [address] [id number] [place] [address] Apr, [facility] [address] [id number] [place] [address] Apr, [facility] [address] [id number] [place] [address] Apr, [facility] [address] [id number] [place] [address] Apr, [facility] [address] [id number] [place] [address] Mar, [facility] [address] [id number] [place] [address] Mar, [facility] [address] [id number] [place] [address] Mar, [facility] [address] [id number] [place] [address] Mar, [facility] [address] [id number] [place] [address] Mar, [facility] [address] [id number] [place] [address] Feb, [facility] [address] [id number] [place] [address] 31 Feb, 2013 [facility] [address] [id number] [place] [address] Feb, [facility] [address] [id number] [place] [address] 17 Feb, 2013 [facility] [address] [id number] [place] [address] Feb, [facility] [address] [id number] [place] [address] Feb, [facility] [address] [id number] [place] [address] Feb, [facility] [address] [id number] [place] [address] Feb, [facility] [address] [id number] [place] [address] Feb, [facility] [address] [id number] [place] [address] Feb, [facility] [address] [id number] [place] [address] Feb, [facility] [address] [id number] [place] [address] Feb, [facility] [address] [id number] [place] [address] Jan, [facility] [address] [id number] [place] [address] Jan, [facility] [address] [id number] [place] [address] Jan, [facility] [address] [id number] [place] [address] Jan, [facility] [address] [id number] [place] [address] Jan, [facility] [address] [id number] [place] [address] Jan, [facility] [address] [id number] [place] [address] Jan, [facility] [address] [id number] [place] [address] Jan, [facility] [address] [id number] [place] [address] Jan, [facility] [address] [id number] [place] [address] Jan, [facility] [address] [id number] [place] [address] Jan, [facility] [address] [id number] [place] [address] Jan, [facility] [address] [id number] [place] [address] Jan, [facility] [address] [id number] [place] [address] Jan, [facility] [address] [id number] [place] [address] Jan, [facility] [address] [id number] [place] [address] Dec, [facility] [address] [id number] [place] [address] Dec, [facility] [address] [id number] [place] [address] Dec, [facility] [address] [id number] [place] [address] Dec, [facility] [address] [id number] [place] [address] Oct, [facility] [address] [id number] [place] [address] Oct, [facility] [address] [id number] [place] [address] Oct, [facility] [address] [id number] [place] [address] Sep, [facility] [address] [id number] [place] [address] Aug, [facility] [address] [id number] [place] [address] July, [facility] [address] [id number] [place] [address] July, [facility] [address] [id number] [place] [address] July, [facility] [address] [id number] [place] [address] July, [facility] [address] [id number] [place] [address] May, [facility] [address] [id number] [place] [address] May, [facility] [address] [id number] [place] [address] Mar, [facility] [address] [id number] [place] [address] Mar, [facility] [address] [id number] [place] [address] Mar, [facility] [address] [id number] [place] [address] Feb, [facility] [address] [id number] [place] [address] Feb, [facility] [address] [id number] [place] [address] Feb, [facility] [address] [id number] [place] [address] Feb, [facility] [address] [id number] [place] [address] Feb, [facility] [address] [id number] [place] [address] Feb, [facility] [address] [id number] [place] [address] Jan, [facility] [address] [id number] [place] [address] Jan, [facility] [address] [place] [id number] [place] [address] Jan, [facility] [address] [id number] [place] [address] Jan, [facility] [address] [id number] [place] [address] Jan, [facility] [address] [id number] [place] [address] Jan, [facility] [address] [id number] [place] [address] Jan, [facility] [address] [id number] [place] [address] Jan, [facility] [address] [id number] [place] [address] Dec, [facility] [address] [facility] [place] [id number] [place] [address] Dec, [facility] [address] [id number] [place] [address] Dec, [facility] [address] [id number] [place] [address] Dec, [facility] [address] [id number] [place] [address] Oct, [facility] [address] [id number] [place] [address] Sep, [facility] [address] [id number] [place] [address] Sep, [facility] [address] [id number] [place] [address] Sep, [facility] [address] [id number] [place] [address] Sep, [facility] [address] [id number] [place] [address] Jun, [facility] [address] [id number] [place] [address] May, [facility] [address] [id number] [place] [address] Apr, [facility] [address] [id number] [place] [address] Apr, [facility] [address] [id number] [place] [address] 03 Apr, 2011 [facility] [address] [id number] [place] [address] Feb, [facility] [address] [id number] [place] [address] Feb, [facility] [address] [id number] [place] [address] 30 Jan, 2011 [facility] [address] [id number] [place] [address] Jan, [facility] [address] [id number] [place] [address] Jan, [facility] [address] [id number] [place] [address] 31 Feb, 2010 [facility] [address] [id number] [place] [address] 30 Feb, 2010 [facility] [address] [id number] [place] [address] 30 Feb, 2010 [facility] [address] [id number] [place] [address] 30 Feb, 2010 [facility] [address] [id number] [place] [address] 27 Feb, 2010 [facility] [address] [id number] [place] [address] 23 Feb, 2010 [facility] [address] [id number] [place] [address] 20 Feb, 2010 [facility] [address] [id number] [place] [address] 18 Feb, 2010 [facility] [address] [id number] [place] [address] 18 Feb, 2010 [facility] [address] [id number] [place] [address] 06 Feb, 2010 [facility] [address] [id number] [place] [address] Jan, [facility] [id number] [place] [address] Dec, [facility] [address] [address] Nov, [facility] [address] [address] [id number] Mar, [facility] [address] [address] Jan, [facility] [address] [address] Dec, [facility] [address] [address] Dec, [facility] [address] [id number] Sep, [facility] [address] [address] Jun, [facility] [address] [address] Mar, [facility] [address] [address] Jan, IMMUNIZATIONS No Known Immunizations SOCIAL HISTORY [...] Bladder surgery repair that did not take 2010 Surgical History Hysterectomy uterus 20 yrs ago [...] Heart cath per Dr. Burton at [facility]- hypotension 08/08 Hospitalization History Hematochezia-[facility] 07/27/16
--- OUTSIDE RECORDS SUMMARY | 2019-08-06 07:55 | XMS REPORT ---
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 Name Role Phone DAY HUGHES Unavailable PROBLEMS Type Condition ICD9-CM Code JRR06-CA Code Onset Dates Condition S tatus SNOMED Code Problem Cataracts, bilateral H26.9 Active 35543923 Problem CVA (cerebral vascular accident) I63.9 Active 744303891 Problem Hyperlipemia E78.5 Active 9405689 4 Problem Lymphocytosis D72.820 Active 386374 09 Problem Peripheral vascular disease, unspecified I73.9 Active 083245152 Problem Iron deficiency anemia due to chronic blood loss D 50.0 Active 857332866 Problem Thyroid nodule E04.1 Active 06103 5005 Problem Dysfunction of right eustachian tube H69.81 Active 76682053 Problem Post-surgical 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 A ctive 98948185 Problem 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 2755 02746 Problem Diverticulitis of intestine without perforation or abscess without bleeding, unspecified part of intestinal tract K57.92 Active 856700450 Problem Essential hypertension I10 Active 39804266 Problem Lung nodule, solitary R91.1 Active 317101536 Problem 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 of 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 Active [id number] ALLERGIES No Information ENCOUNTERS Encounter Location Date Diagnosis [facility] [address] [id number] [place] [address] Apr, [facility] [address] [facility] [id number] [address] [place] [address] Mar, Left foot pain M79.672 [facility] [address] [id number] [place] [address] 02 Mar, 2019 Hyperlipemia E78.5 [facility] [address] [address] Jan, Encounter for immunization Z23 [place] [address] [address] Dec, [facility] [address] [address] Nov, [facility] [address] [address] Oct, [facility] [address] [address] Oct, Arthralgia, unspecified joint M25.50 [place] [address] [address] Oct, Seborrheic keratosis L82.1 [place] [address] [address] Oct, [facility] [address] [address] Sep, [place] [address] [address] Sep, Other fatigue R53.83 ; Candidiasis B37.9 and Arthralgia, unspecified joint M25.50 [place] [address] [address] Jun, Post-surgical 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 [place] [address] [address] May, Post-surgical 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 and P eripheral vascular disease, unspecified I73.9 [place] [address] [address] Mar, [place] [address] [address] Mar, Post-surgical 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 [place] [address] [address] Jan, Nodular thyroid disease E04.1 ; Lung mas s R91.8 ; Iron deficiency anemia due to chronic blood loss D50.0 ; Essential hypertension I10 and 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 of 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 [facility] [address] [id number] [place] [id number] Dec, Dental examination Z01.20 [facility] [address] [place] [id number] [place] [address] Dec, Thyroid nodule E04.1 [facility] [address] [address] Oct, Lung nodule, solitary R91.1 [place] [address] [address] Oct, [facility] [address] [address] Oct, [place] [address] [address] Oct, [facility] [address] [address] Sep, [place] [address] [address] Aug, [place] [address] [address] July, Arthralgia, unspecified joint M25.50 ; E ssential hypertension I10 ; Seborrheic keratosis L82.1 and LLQ abdominal pain R10.32 [facility] [address] [address] Feb, Arthralgia, unspecified joint M25.50 [place] [address] [address] Feb, Arthralgia, unspecified joint M25.50 [facility] [address] [address] Dec, Arthralgia, unspecified joint M25.50 [facility] [address] [address] 18 Dec, 2016 Right flank pain R10.9 ; Left foot pain M79.672 ; Arthralgia, unspecified joint M25.50 and Encounter for immunization Z23 [place] [address] [address] 09 Dec, 2016 CVA (cerebral vascular accident) I63.9 [place] [address] [address] Dec, RUQ abdominal pain R10.[address] [address] Dec, Right lower quadrant pain R10.31 ; Diver ticulitis of intestine without perforation or abscess without bleeding, unspecified part of intestinal tract K57.92 and Internal hemorrhoids K64.8 [place] [address] [address] Nov, [place] [address] [address] Oct, [place] [address] [address] Aug, Iron deficiency anemia due to chronic bl ood loss D50.[address] [address] Aug, Peripheral vascular disease, unspecified I73.9 and Colitis K52.9 [place] [address] [address] 14 Aug, 2016 H/O: GI bleed Z87.[address] [address] 07 Aug, 2016 CVA (cerebral vascular accident) I63.9 [place] [address] [address] Aug, RUQ abdominal pain R10.[address] [address] July, RUQ abdominal pain R10.11 and Lymphocyto sis D72.820 [facility] [address] [address] July, [facility] [address] [address] July, Colitis K52.9 [facility] [place] [address] [id number] [address] July, [facility] [address] [address] Jun, Right flank pain R10.9 [facility] [address] [address] May, Urinary tract infection without hematuri a, site unspecified N39.0 and Right flank pain R10.9 [facility] [address] [address] Feb, Acute non-recurrent maxillary sinusitis J01.00 and Need for hepatitis C screening test Z11.59 [facility] [address] [id number] Jan, Dental examination Z01.20 [facility] [address] [id number] Dec, Dental examination Z01.20 [facility] [address] [id number] Dec, Dental examination Z01.20 [facility] [address] [address] Dec, [facility] [address] [address] Dec, [facility] [address] [id number] Dec, Dental examination Z01.20 [facility] [address] [address] Nov, [facility] [address] [id number] 13 Nov, 2015 Dental examination Z01.20 [facility] [address] [address] Oct, Arthralgia, unspecified joint M25.50 and Essential hypertension I10 [facility] [address] [address] Oct, [facility] [address] [place] [id number] [address] [place] [address] Sep, Bilateral otitis media, unsp ecified chronicity, unspecified otitis media type H66.93 [facility] [address] [id number] Sep, Dental examination Z01.20 [facility] [address] [id number] 16 Aug, 2015 Dental examination V72.2 [facility] [address] [place] [address] 14 Aug, 2015 Essential hypertension I10 and Muscle cr amping R25.[address] [address] 09 Aug, 2015 Tension-type headache, not intractable, unspecified chronicity pattern G44.209 ; Muscle cramping R25.2 and Right leg pain M79.604 [facility] [address] [id number] July, Dental examination Z01.20 [facility] [address] [id number] July, Encounter for dental examination and jitendra aning without abnormal findings Z01.20 and Dental caries K02.9 [facility] [address] [id number] Jun, Encounter for dental examination Z01.20 [facility] [address] [address] Apr, [facility] [address] [facility] [id number] [place] [address] 02 Apr, 2015 Bronchitis J40 [place] [address] [address] 09 Feb, 2015 Hyperlipemia E78.5 ; Carotid arterial di sease I77.9 ; Tobacco use Z72.0 ; Hypertension I10 ; RBBB I45.10 and CVA (cerebral vascular accident) I63.9 [place] [address] [address] Feb, Status post CVA Z86.73 ; Dysfunction of right eustachian tube H69.81 and Essential hypertension I10 [address] [address] 02 Dec, 2014 Encounter for immunization Z23 [address] [address] Oct, PVD (peripheral vascular disease) 443.9 and Weight loss 783.21 [place] [address] [address] Oct, PVD (peripheral vascular disease) 443.9 and Weight loss 783.[address] [address] Aug, Hyperlipidemia 272.4 ; Carotid arterial disease 447.9 ; Tobacco dependency 305.1 ; Hypertension 401.9 ; RBBB 426.4 and CVA (cerebral infarction) 434.[address] [address] Aug, [address] [address] Aug, 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.[address] [address] July, Chest pain, unspecified 786.50 ; Occlusi [...] for prophylactic vaccination and inoculation, Influenza V04.81 [facility] [address] [address] Jun, [facility] [address] [address] Jun, [facility] [address] [address] May, [facility] [address] [address] May, [facility] [address] [address] May, [facility] [address] [address] May, [facility] [address] [address] Mar, [facility] [address] [address] Mar, [facility] [address] [address] Mar, [facility] [address] [address] Mar, [facility] [address] [address] Mar, [facility] [address] [id number] [place] [address] Mar, [facility] [address] [id number] [place] [address] Mar, [facility] [address] [id number] [place] [address] Mar, [facility] [address] [id number] [place] [address] Mar, [facility] [address] [id number] [place] [address] Mar, [facility] [address] [id number] [place] [address] Feb, [facility] [address] [id number] [place] [address] Feb, [facility] [address] [place] [id number] [place] [address] Feb, [facility] [address] [id number] [place] [address] Feb, [facility] [address] [id number] [place] [address] Feb, [facility] [address] [id number] [place] [address] Feb, [facility] [address] [id number] [place] [address] Feb, [facility] [address] [id number] [place] [address] Feb, [facility] [address] [id number] [place] [address] Jan, [facility] [address] [id number] [place] [address] Jan, [facility] [address] [id number] [place] [address] Nov, [facility] [address] [id number] [place] [address] Nov, [facility] [address] [facility] [id number] [place] [address] Sep, [facility] [address] [facility] [id number] [facility] [place] [address] Sep, [facility] [address] [id number] [place] [address] Sep, [facility] [address] [id number] [place] [address] Sep, [facility] [address] [id number] [place] [address] Aug, [facility] [address] [id number] [place] [address] Aug, [facility] [address] [id number] [place] [address] Aug, [facility] [address] [id number] [place] [address] Aug, [facility] [address] [id number] [place] [address] Aug, [facility] [address] [id number] [place] [address] Aug, [facility] [address] [id number] [place] [address] July, [facility] [address] [id number] [place] [address] July, [facility] [address] [id number] [place] [address] July, [facility] [address] [id number] [place] [address] July, [facility] [address] [id number] [place] [address] Jun, [facility] [address] [id number] [place] [address] Jun, [facility] [address] [id number] [place] [address] Apr, [facility] [address] [facility] [id number] [place] [address] Apr, [facility] [address] [id number] [place] [address] Apr, [facility] [address] [id number] [place] [address] Apr, [facility] [address] [id number] [place] [address] Apr, [facility] [address] [id number] [place] [address] Apr, [facility] [address] [id number] [place] [address] Mar, [facility] [address] [id number] [place] [address] Mar, [facility] [address] [id number] [place] [address] Mar, [facility] [address] [id number] [place] [address] Mar, [facility] [address] [id number] [place] [address] Mar, [facility] [address] [id number] [place] [address] Feb, [facility] [address] [id number] [place] [address] 31 Feb, 2013 [facility] [address] [id number] [place] [address] Feb, [facility] [address] [id number] [place] [address] 17 Feb, 2013 [facility] [address] [id number] [place] [address] Feb, [facility] [address] [id number] [place] [address] Feb, [facility] [address] [id number] [place] [address] Feb, [facility] [address] [id number] [place] [address] Feb, [facility] [address] [id number] [place] [address] Feb, [facility] [address] [id number] [place] [address] Feb, [facility] [address] [id number] [place] [address] Feb, [facility] [address] [id number] [place] [address] Feb, [facility] [address] [id number] [place] [address] Jan, [facility] [address] [id number] [place] [address] Jan, [facility] [address] [id number] [place] [address] Jan, [facility] [address] [id number] [place] [address] Jan, [facility] [address] [id number] [place] [address] Jan, [facility] [address] [id number] [place] [address] Jan, [facility] [address] [id number] [place] [address] Jan, [facility] [address] [id number] [place] [address] Jan, [facility] [address] [id number] [place] [address] Jan, [facility] [address] [id number] [place] [address] Jan, [facility] [address] [id number] [place] [address] Jan, [facility] [address] [id number] [place] [address] Jan, [facility] [address] [id number] [place] [address] Jan, [facility] [address] [id number] [place] [address] Jan, [facility] [address] [id number] [place] [address] Jan, [facility] [address] [id number] [place] [address] Dec, [facility] [address] [id number] [place] [address] Dec, [facility] [address] [id number] [place] [address] Dec, [facility] [address] [id number] [place] [address] Dec, [facility] [address] [id number] [place] [address] Oct, [facility] [address] [id number] [place] [address] Oct, [facility] [address] [id number] [place] [address] Oct, [facility] [address] [id number] [place] [address] Sep, [facility] [address] [id number] [place] [address] Aug, [facility] [address] [id number] [place] [address] July, [facility] [address] [id number] [place] [address] July, [facility] [address] [id number] [place] [address] July, [facility] [address] [id number] [place] [address] July, [facility] [address] [id number] [place] [address] May, [facility] [address] [id number] [place] [address] May, [facility] [address] [id number] [place] [address] Mar, [facility] [address] [id number] [place] [address] Mar, [facility] [address] [id number] [place] [address] Mar, [facility] [address] [id number] [place] [address] Feb, [facility] [address] [id number] [place] [address] Feb, [facility] [address] [id number] [place] [address] Feb, [facility] [address] [id number] [place] [address] Feb, [facility] [address] [id number] [place] [address] Feb, [facility] [address] [id number] [place] [address] Feb, [facility] [address] [id number] [place] [address] Jan, [facility] [address] [id number] [place] [address] Jan, [facility] [address] [place] [id number] [place] [address] Jan, [facility] [address] [id number] [place] [address] Jan, [facility] [address] [id number] [place] [address] Jan, [facility] [address] [id number] [place] [address] Jan, [facility] [address] [id number] [place] [address] Jan, [facility] [address] [id number] [place] [address] Jan, [facility] [address] [id number] [place] [address] Dec, [facility] [address] [facility] [id number] [place] [address] Dec, [facility] [address] [id number] [place] [address] Dec, [facility] [address] [id number] [place] [address] Dec, [facility] [address] [id number] [place] [address] Oct, [facility] [address] [id number] [place] [address] Sep, [facility] [address] [id number] [place] [address] Sep, [facility] [address] [id number] [place] [address] Sep, [facility] [address] [id number] [place] [address] Sep, [facility] [address] [id number] [place] [address] Jun, [facility] [address] [id number] [place] [address] May, [facility] [address] [id number] [place] [address] Apr, [facility] [address] [id number] [place] [address] Apr, [facility] [address] [id number] [place] [address] 03 Apr, 2011 [facility] [address] [id number] [place] [address] Feb, [facility] [address] [id number] [place] [address] Feb, [facility] [address] [id number] [place] [address] 30 Jan, 2011 [facility] [address] [id number] [place] [address] Jan, [facility] [address] [id number] [place] [address] Jan, [facility] [address] [id number] [place] [address] 31 Feb, 2010 [facility] [address] [id number] [place] [address] 30 Feb, 2010 [facility] [address] [id number] [place] [address] 30 Feb, 2010 [facility] [address] [id number] [place] [address] 30 Feb, 2010 [facility] [address] [id number] [place] [address] 27 Feb, 2010 [facility] [address] [id number] [place] [address] 23 Feb, 2010 [facility] [address] [id number] [place] [address] 20 Feb, 2010 [facility] [address] [id number] [place] [address] 18 Feb, 2010 [facility] [address] [id number] [place] [address] 18 Feb, 2010 [facility] [address] [id number] [place] [address] 06 Feb, 2010 [facility] [address] [id number] [place] [address] Jan, [facility] [id number] [place] [address] Dec, [facility] [address] [address] Nov, [facility] [address] [address] Mar, [facility] [address] [address] Jan, [facility] [address] [address] Dec, [facility] [address] [address] Dec, [facility] [address] [address] Sep, [facility] [address] [address] Jun, [facility] [address] [address] Mar, [facility] [address] [address] Jan, IMMUNIZATIONS No Known Immunizations SOCIAL HISTORY [...] Heart cath per Dr. Burton at [facility]- hypotension 08/08 Hospitalization History Hematochezia-[facility] 07/27/16
--- OUTSIDE RECORDS SUMMARY | 2019-08-06 07:55 | XMS REPORT ---
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 Role Phone Migration, Doctor Unavailable Unavailable PROBLEMS Type Condition ICD9-CM Code ZFM50-UZ Code Onset Dates Condition S tatus SNOMED Code Problem Cataracts, bilateral H26.9 Active 38492033 Problem CVA (cerebral vascular accident) I63.9 Active 064145625 Problem Hyperlipemia E78.5 Active 9365955 4 Problem Lymphocytosis D72.820 Active 602411 09 Problem Peripheral vascular disease, unspecified I73.9 Active 047883431 Problem Iron deficiency anemia due to chronic blood loss D 50.0 Active 199896260 Problem Thyroid nodule E04.1 Active 33947 5005 Problem Dysfunction of right eustachian tube H69.81 Active 71282756 Problem Post-surgical 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 A ctive 40406586 Problem 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 2755 98733 Problem Diverticulitis of intestine without perforation or abscess without bleeding, unspecified part of intestinal tract K57.92 Active 493864093 Problem Essential hypertension I10 Active 40026873 Problem Lung nodule, solitary R91.1 Active 925532819 Problem 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 of 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 Active [id number] ALLERGIES No Information ENCOUNTERS Encounter Location Date Diagnosis [facility] [address] [id number] [place] [address] Mar, [facility] [address] [facility] [id number] [address] [place] [address] Mar, Left foot pain M79.672 [facility] [address] [id number] [place] [address] Mar, Hyperlipemia E78.5 [facility] [address] [id number] [place] [address] Jan, Encounter for immunization Z23 [facility] [address] [address] Dec, [facility] [address] [address] Nov, [facility] [address] [address] Oct, [facility] [address] [address] Oct, Arthralgia, unspecified joint M25.50 [place] [address] [address] Oct, Seborrheic keratosis L82.1 [place] [address] [address] Oct, [place] [address] [address] Sep, [place] [address] [address] Sep, Other fatigue R53.83 ; Candidiasis B37.9 and Arthralgia, unspecified joint M25.50 [place] [address] [address] Jun, Post-surgical 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 [place] [address] [address] May, Post-surgical 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 and P eripheral vascular disease, unspecified I73.9 [place] [address] [address] Mar, [place] [address] [address] Mar, Post-surgical 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 [place] [address] [address] Jan, Nodular thyroid disease E04.1 ; Lung mas s R91.8 ; Iron deficiency anemia due to chronic blood loss D50.0 ; Essential hypertension I10 and 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 of 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 [facility] [address] [id number] [place] [id number] Dec, Dental examination Z01.20 [place] [address] [place] [id number] [place] [address] Dec, Thyroid nodule E04.1 [place] [address] [address] Oct, Lung nodule, solitary R91.1 [place] [address] [address] Oct, [place] [address] [address] Oct, [facility] [address] [address] Oct, [place] [address] [address] Sep, [place] [address] [address] Aug, [place] [address] [address] July, Arthralgia, unspecified joint M25.50 ; E ssential hypertension I10 ; Seborrheic keratosis L82.1 and LLQ abdominal pain R10.32 [place] [address] [address] Feb, Arthralgia, unspecified joint M25.50 [place] [address] [address] Feb, Arthralgia, unspecified joint M25.50 [place] [address] [address] Dec, Arthralgia, unspecified joint M25.50 [facility] [address] [address] Dec, Right flank pain R10.9 ; Left foot pain M79.672 ; Arthralgia, unspecified joint M25.50 and Encounter for immunization Z23 [place] [address] [address] 09 Dec, 2016 CVA (cerebral vascular accident) I63.9 [place] [address] [address] Dec, RUQ abdominal pain R10.11 [place] [address] [address] Dec, Right lower quadrant pain R10.31 ; Diver ticulitis of intestine without perforation or abscess without bleeding, unspecified part of intestinal tract K57.92 and Internal hemorrhoids K64.8 [place] [address] [address] Nov, [address] [address] Oct, [place] [address] [address] Aug, Iron deficiency anemia due to chronic bl ood loss D50.[address] [address] Aug, Peripheral vascular disease, unspecified I73.9 and Colitis K52.[address] [address] 14 Aug, 2016 H/O: GI bleed Z87.19 [place] [address] [address] 07 Aug, 2016 CVA (cerebral vascular accident) I63.[address] [address] Aug, RUQ abdominal pain R10.[address] [address] July, RUQ abdominal pain R10.11 and Lymphocyto sis D72.[address] [place] [address] July, [facility] [address] [place] [id number] [place] [address] July, Colitis K52.9 [facility] [address] [place] [id number] [id number] July, [facility] [address] [address] Jun, Right flank pain R10.9 [facility] [address] [address] May, Urinary tract infection without hematuri a, site unspecified N39.0 and Right flank pain R10.9 [facility] [address] [address] Feb, Acute non-recurrent maxillary sinusitis J01.00 and Need for hepatitis C screening test Z11.59 [facility] [address] [id number] Jan, Dental examination Z01.20 [facility] [address] [id number] Dec, Dental examination Z01.20 [facility] [address] [id number] Dec, Dental examination Z01.20 [facility] [address] [address] Dec, [facility] [address] [address] Dec, [facility] [address] [id number] Dec, Dental examination Z01.20 [facility] [address] [address] Nov, [facility] [address] [id number] Nov, Dental examination Z01.20 [facility] [address] [address] Oct, Arthralgia, unspecified joint M25.50 and Essential hypertension I10 [facility] [address] [address] Oct, [facility] [address] [facility] [id number] [place] [address] Sep, Bilateral otitis media, unsp ecified chronicity, unspecified otitis media type H66.93 [facility] [address] [id number] Sep, Dental examination Z01.20 [facility] [address] [id number] Aug, 2015 Dental examination V72.2 [place] [address] [address] 14 Aug, 2015 Essential hypertension I10 and Muscle cr amping R25.2 [facility] [address] [address] 09 Aug, 2015 Tension-type headache, not intractable, unspecified chronicity pattern G44.209 ; Muscle cramping R25.2 and Right leg pain M79.604 [facility] [address] [id number] July, Dental examination Z01.20 [facility] [address] [id number] July, Encounter for dental examination and jitendra aning without abnormal findings Z01.20 and Dental caries K02.9 [facility] [address] [id number] Jun, Encounter for dental examination Z01.20 [facility] [address] [address] 26 Apr, 2015 [facility] [address] [facility] [id number] [place] [address] 02 Apr, 2015 Bronchitis J40 [facility] [address] [place] [id number] Feb, Hyperlipemia E78.5 ; Carotid arterial di sease I77.9 ; Tobacco use Z72.0 ; Hypertension I10 ; RBBB I45.10 and CVA (cerebral vascular accident) I63.9 [place] [address] [address] Feb, Status post CVA Z86.73 ; Dysfunction of right eustachian tube H69.81 and Essential hypertension I10 [place] [address] [address] 02 Dec, 2014 Encounter for immunization Z23 [address] [address] Oct, PVD (peripheral vascular disease) 443.9 and Weight loss 783.21 [place] [address] [address] Oct, PVD (peripheral vascular disease) 443.9 and Weight loss 783.21 [place] [address] [address] 17 Aug, 2014 Hyperlipidemia 272.4 ; Carotid arterial disease 447.9 ; Tobacco dependency 305.1 ; Hypertension 401.9 ; RBBB 426.4 and CVA (cerebral infarction) 434.91 [place] [address] [address] Aug, [place] [address] [address] Aug, 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.7 9 [place] [address] [address] July, Chest pain, unspecified 786.50 ; Occlusi [...] for prophylactic vaccination and inoculation, Influenza V04.81 [facility] [address] [address] Jun, [facility] [address] [address] Jun, [facility] [address] [address] May, [facility] [address] [address] May, [facility] [address] [address] May, [facility] [address] [address] May, [facility] [address] [address] Mar, [facility] [address] [address] Mar, [facility] [address] [address] Mar, [facility] [address] [address] Mar, [facility] [address] [address] Mar, [facility] [address] [address] Mar, [facility] [address] [id number] [place] [address] Mar, [facility] [address] [id number] [place] [address] Mar, [facility] [address] [id number] [place] [address] Mar, [facility] [address] [id number] [place] [address] Mar, [facility] [address] [id number] [place] [address] Feb, [facility] [address] [id number] [place] [address] Feb, [facility] [address] [id number] [place] [address] Feb, [facility] [address] [id number] [place] [address] Feb, [facility] [address] [id number] [place] [address] Feb, [facility] [address] [id number] [place] [address] Feb, [facility] [address] [id number] [place] [address] Feb, [facility] [address] [id number] [place] [address] Feb, [facility] [address] [id number] [place] [address] Jan, [facility] [address] [id number] [place] [address] Jan, [facility] [address] [id number] [place] [address] Nov, [facility] [address] [id number] [place] [address] Nov, [facility] [address] [id number] [place] [address] Sep, [facility] [address] [facility] [id number] [facility] [address] Sep, [facility] [address] [facility] [id number] [place] [address] Sep, [facility] [address] [id number] [place] [address] Sep, [facility] [address] [id number] [place] [address] Aug, [facility] [address] [facility] [id number] [place] [address] Aug, [facility] [address] [id number] [place] [address] Aug, [facility] [address] [id number] [place] [address] Aug, [facility] [address] [id number] [place] [address] Aug, [facility] [address] [id number] [place] [address] Aug, [facility] [address] [id number] [place] [address] July, [facility] [address] [id number] [place] [address] July, [facility] [address] [id number] [place] [address] July, [facility] [address] [id number] [place] [address] July, [facility] [address] [id number] [place] [address] Jun, [facility] [address] [id number] [place] [address] Jun, [facility] [address] [id number] [place] [address] Apr, [facility] [address] [id number] [place] [address] Apr, [facility] [address] [id number] [place] [address] Apr, [facility] [address] [id number] [place] [address] Apr, [facility] [address] [id number] [place] [address] Apr, [facility] [address] [id number] [place] [address] Apr, [facility] [address] [id number] [place] [address] Mar, [facility] [address] [id number] [place] [address] Mar, [facility] [address] [id number] [place] [address] Mar, [facility] [address] [id number] [place] [address] Mar, [facility] [address] [id number] [place] [address] Mar, [facility] [address] [id number] [place] [address] Feb, [facility] [address] [id number] [place] [address] Feb, [facility] [address] [id number] [place] [address] Feb, [facility] [address] [id number] [place] [address] Feb, [facility] [id number] [place] [address] Feb, [facility] [address] [id number] [place] [address] Feb, [facility] [address] [id number] [place] [address] Feb, 2012 [facility] [address] [id number] [place] [address] 06 Feb, 2012 [facility] [address] [id number] [place] [address] Feb, [facility] [address] [id number] [place] [address] Feb, [facility] [address] [id number] [place] [address] Feb, [facility] [address] [id number] [place] [address] Feb, [facility] [address] [id number] [place] [address] Jan, [facility] [address] [id number] [place] [address] Jan, [facility] [address] [id number] [place] [address] Jan, [facility] [address] [id number] [place] [address] Jan, [facility] [address] [id number] [place] [address] Jan, [facility] [address] [id number] [place] [address] Jan, [facility] [address] [id number] [place] [address] Jan, [facility] [address] [id number] [place] [address] Jan, [facility] [address] [id number] [place] [address] Jan, [facility] [address] [id number] [place] [address] Jan, [facility] [address] [id number] [place] [address] Jan, [facility] [address] [id number] [place] [address] Jan, [facility] [address] [id number] [place] [address] Jan, [facility] [address] [id number] [place] [address] Jan, [facility] [address] [id number] [place] [address] Jan, [facility] [address] [id number] [place] [address] Dec, [facility] [address] [id number] [place] [address] Dec, [facility] [address] [id number] [place] [address] Dec, [facility] [address] [id number] [place] [address] Dec, [facility] [address] [id number] [place] [address] Oct, [facility] [address] [id number] [place] [address] Oct, [facility] [address] [id number] [place] [address] Oct, [facility] [address] [id number] [place] [address] Sep, [facility] [address] [id number] [place] [address] Aug, [facility] [address] [id number] [place] [address] July, [facility] [address] [id number] [place] [address] July, [facility] [address] [id number] [place] [address] July, [facility] [address] [id number] [place] [address] July, [facility] [address] [id number] [place] [address] May, [facility] [address] [id number] [place] [address] May, [facility] [address] [id number] [place] [address] Mar, [facility] [address] [id number] [place] [address] Mar, [facility] [address] [id number] [place] [address] Mar, [facility] [address] [id number] [place] [address] Feb, [facility] [address] [id number] [place] [address] Feb, [facility] [address] [id number] [place] [address] Feb, [facility] [address] [id number] [place] [address] Feb, [facility] [address] [id number] [place] [address] Feb, [facility] [address] [id number] [place] [address] Feb, [facility] [address] [id number] [place] [address] Jan, [facility] [address] [id number] [place] [address] Jan, [facility] [address] [id number] [place] [address] Jan, [facility] [address] [id number] [place] [address] Jan, [facility] [address] [id number] [place] [address] Jan, [facility] [address] [id number] [place] [address] Jan, [facility] [address] [id number] [place] [address] Jan, [facility] [address] [id number] [place] [address] Jan, [facility] [address] [id number] [place] [address] Dec, [facility] [address] [id number] [place] [address] Dec, [facility] [address] [facility] [id number] [place] [address] Dec, [facility] [address] [id number] [place] [address] Dec, [facility] [address] [id number] [place] [address] Oct, [facility] [address] [id number] [place] [address] Sep, [facility] [address] [id number] [place] [address] Sep, [facility] [address] [id number] [place] [address] Sep, [facility] [address] [id number] [place] [address] Sep, [facility] [address] [id number] [place] [address] Jun, [facility] [address] [id number] [place] [address] May, [facility] [address] [id number] [place] [address] Apr, [facility] [address] [id number] [place] [address] Apr, [facility] [address] [id number] [place] [address] Apr, [facility] [address] [id number] [place] [address] 12 Feb, 2011 [facility] [address] [id number] [place] [address] 12 Feb, 2011 [facility] [address] [id number] [place] [address] 30 Jan, 2011 [facility] [address] [id number] [place] [address] 28 Jan, 2011 [facility] [address] [id number] [place] [address] Jan, [facility] [address] [id number] [place] [address] 31 Feb, 2010 [facility] [address] [id number] [place] [address] 30 Feb, 2010 [facility] [address] [id number] [place] [address] 30 Feb, 2010 [facility] [address] [id number] [place] [address] 30 Feb, 2010 [facility] [address] [id number] [place] [address] 27 Feb, 2010 [facility] [address] [id number] [place] [address] 23 Feb, 2010 [facility] [address] [id number] [place] [address] 20 Feb, 2010 [facility] [address] [id number] [place] [address] 18 Feb, 2010 [facility] [address] [id number] [place] [address] 18 Feb, 2010 [facility] [address] [id number] [place] [address] 06 Feb, 2010 [facility] [address] [id number] [place] [address] Jan, [facility] [address] [id number] [place] [address] Dec, [facility] [address] [id number] [place] [address] Nov, [facility] [id number] [place] [address] Mar, [facility] [id number] [place] [address] Jan, [facility] [address] [address] Dec, [facility] [address] [address] Dec, [facility] [address] [address] Sep, [facility] [address] [address] Jun, [facility] [address] [address] Mar, [facility] [id number] [place] [address] Jan, IMMUNIZATIONS No Known Immunizations SOCIAL HISTORY [...] Heart cath per Dr. Burton at [facility]- hypotension 08/08 Hospitalization History [facility] 07/27/16
--- OUTSIDE RECORDS SUMMARY | 2019-08-06 07:56 | XMS REPORT ---
Author Author Lavern HUGHES [facility] Address [address] [place] [address] Care Team Providers Care [employer] Name Role Phone DAY HUGHES Unavailable PROBLEMS Type Condition ICD9-CM Code HKN16-MA Code Onset Dates Condition S tatus SNOMED Code Problem Cataracts, bilateral H26.9 Active 82415509 Problem CVA (cerebral vascular accident) I63.9 Active 014759403 Problem Hyperlipemia E78.5 Active 4003468 4 Problem Lymphocytosis D72.820 Active 518113 09 Problem Peripheral vascular disease, unspecified I73.9 Active 353391174 Problem Iron deficiency anemia due to chronic blood loss D 50.0 Active 033479191 Problem Thyroid nodule E04.1 Active 88795 5005 Problem Dysfunction of right eustachian tube H69.81 Active 72347617 Problem Post-surgical 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 A ctive 85266854 Problem 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 2755 07569 Problem Diverticulitis of intestine without perforation or abscess without bleeding, unspecified part of intestinal tract K57.92 Active 724376052 Problem Essential hypertension I10 Active 00229367 Problem Lung nodule, solitary R91.1 Active 979479663 Problem 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 of 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 Active [id number] ALLERGIES No Information ENCOUNTERS Encounter Location Date Diagnosis [facility] [address] [facility] [id number] [address] [place] [id number] Nov, [facility] [address] [facility] [id number] [address] [place] [address] Oct, [facility] [address] [facility] [id number] [address] [place] [address] Oct, Arthralgia, unspecified join t M25.50 [place] [id number] [place] [address] Oct, Seborrheic keratosis L82.1 [facility] [address] [address] Oct, [facility] [address] [facility] [id number] [address] [place] [address] Sep, [facility] [address] [address] Sep, Other fatigue R53.83 ; Aleida diasis B37.9 and Arthralgia, unspecified joint M25.50 [facility] [address] [address] Jun, Post-surgical 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 [facility] [address] [place] [id number] [place] [address] May, Post-surgical 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 and Peripheral vascular disease, unspecified I73.9 [facility] [address] [place] [id number] [address] [place] [address] Mar, [facility] [address] [address] Mar, Post-surgical 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 [facility] [address] [place] [address] Jan, Nodular thyroid disease E04. 1 ; Lung mass R91.8 ; Iron deficiency anemia due to chronic blood loss D50.0 ; Essential hypertension I10 and 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 of 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 [facility] [address] [id number] [address] [place] [address] [id number] Dec, Dental examination Z01.20 [facility] [address] [place] [id number] [address] [place] [address] Dec, Thyroid nodule E04.1 [facility] [address] [place] [id number] [address] [place] [address] Oct, Lung nodule, solitary R91.1 [place] [address] [address] Oct, [place] [address] [address] Oct, [facility] [address] [address] Oct, [place] [address] [address] Sep, [place] [address] [address] Aug, [place] [address] [address] July, Arthralgia, unspecified join t M25.50 ; Essential hypertension I10 ; Seborrheic keratosis L82.1 and LLQ abdominal pain R10.32 [place] [address] [address] Feb, Arthralgia, unspecified join t M25.50 [place] [address] [address] Feb, Arthralgia, unspecified join t M25.50 [place] [address] [address] Dec, Arthralgia, unspecified join t M25.50 [place] [address] [address] Dec, Right flank pain R10.9 ; Lef t foot pain M79.672 ; Arthralgia, unspecified joint M25.50 and Encounter for immunization Z23 [place] [address] [address] Dec, CVA (cerebral vascular accid ent) I63.9 [place] [address] [address] Dec, RUQ abdominal pain R10.11 [place] [address] [place] [id number] [address] [place] [address] Dec, Right lower quadrant pain R1 0.31 ; Diverticulitis of intestine without perforation or abscess without bleeding, unspecified part of intestinal tract K57.92 and Internal hemorrhoids K64.8 [place] [address] [place] [id number] [address] [place] [address] Nov, [place] [address] [place] [id number] [address] [place] [address] Oct, [place] [address] [address] Aug, Iron deficiency anemia due t o chronic blood loss D50.0 [place] [address] [place] [id number] [address] [place] [address] Aug, Peripheral vascular disease, unspecified I73.9 and Colitis K52.9 [place] [address] [place] [id number] [address] [place] [address] Aug, H/O: GI bleed Z87.19 [place] [address] [place] [id number] [address] [place] [address] 07 Aug, 2016 CVA (cerebral vascular accid ent) I63.9 [place] [address] [place] [id number] [address] [place] [address] Aug, RUQ abdominal pain R10.11 [place] [address] [place] [id number] [address] [place] [address] July, RUQ abdominal pain R10.11 an d Lymphocytosis D72.820 [place] [address] [place] [id number] [address] [place] [address] July, [place] [address] [place] [id number] [address] [place] [address] July, Colitis K52.9 [place] [address] [place] [id number] [place] [address] [id number] July, [facility] [address] [id number] [address] [place] [address] Jun, Right flank pain R10.9 [facility] [address] [id number] [address] [place] [address] May, Urinary tract infection with out hematuria, site unspecified N39.0 and Right flank pain R10.9 [facility] [address] [id number] [address] [place] [address] Feb, Acute non-recurrent maxillar y sinusitis J01.00 and Need for hepatitis C screening test Z11.59 [facility] [address] [id number] [address] [place] [id number] Jan, Dental examination Z01.20 [facility] [address] [id number] [address] [place] [address] [id number] Dec, Dental examination Z01.20 [facility] [address] [id number] [address] [place] [id number] Dec, Dental examination Z01.20 [facility] [address] [id number] [address] [place] [address] Dec, [facility] [address] [id number] [address] [place] [address] Dec, [facility] [address] [id number] [address] [place] [address] [id number] Dec, Dental examination Z01.20 [facility] [address] [id number] [address] [place] [address] Nov, [facility] [address] [id number] [address] [place] [id number] Nov, Dental examination Z01.20 [facility] [address] [id number] [address] [place] [address] Oct, Arthralgia, unspecified join t M25.50 and Essential hypertension I10 [facility] [address] [id number] [address] [place] [address] Oct, [facility] [address] [facility] [id number] [address] [place] [address] Sep, Bilateral otitis media, unsp ecified chronicity, unspecified otitis media type H66.93 [facility] [address] [id number] [place] [address] [id number] Sep, Dental examination Z01.20 [facility] [address] [id number] [place] [address] [id number] Aug, Dental examination V72.2 [facility] [address] [facility] [id number] [place] [id number] 14 Aug, 2015 Essential hypertension I10 a nd Muscle cramping R25.2 [facility] [address] [facility] [id number] [address] [place] [address] 09 Aug, 2015 Tension-type headache, not i ntractable, unspecified chronicity pattern G44.209 ; Muscle cramping R25.2 and Right leg pain M79.604 [facility] [address] [place] [address] [id number] July, Dental examination Z01.20 [facility] [address] [place] [address] [id number] July, Encounter for dental examina tion and cleaning without abnormal findings Z01.20 and Dental caries K02.9 [facility] [address] [id number] [place] [address] [id number] Jun, Encounter for dental examina tion Z01.20 [facility] [address] [facility] [id number] [address] [place] [address] Apr, [facility] [address] [facility] [id number] [address] [place] [address] 02 Apr, 2015 Bronchitis J40 [facility] [address] [facility] [id number] [address] [place] [address] Feb, Hyperlipemia E78.5 ; Carotid arterial disease I77.9 ; Tobacco use Z72.0 ; Hypertension I10 ; RBBB I45.10 and CVA (cerebral vascular accident) I63.9 [place] [address] [place] [id number] [address] [place] [address] Feb, Status post CVA Z86.73 ; Dys function of right eustachian tube H69.81 and Essential hypertension I10 [place] [address] [address] Dec, Encounter for immunization Z [address] [address] Oct, PVD (peripheral vascular dis ease) 443.9 and Weight loss 783.[address] [address] Oct, PVD (peripheral vascular dis ease) 443.9 and Weight loss 783.21 [place] [address] [place] [id number] [address] [place] [address] Aug, Hyperlipidemia 272.4 ; Carot id arterial disease 447.9 ; Tobacco dependency 305.1 ; Hypertension 401.9 ; RBBB 426.4 and CVA (cerebral infarction) 434.[address] [address] Aug, [address] [address] Aug, Pseudoaneurysm following pro cedure 997.[address] [address] July, Chest pain, unspecified 786. 50 ; [...] for prophylactic vaccination and inoculation, Influenza V04.81 [facility] [address] [facility] [id number] [address] [place] [address] Jun, [facility] [address] [facility] [id number] [address] [place] [phone] Jun, [facility] [address] [facility] [id number] [address] [place] [id number] May, [facility] [address] [facility] [id number] [address] [place] [phone] May, [facility] [address] [facility] [id number] [address] [place] [phone] May, [facility] [address] [facility] [id number] [address] [place] [phone] May, [facility] [address] [id number] [address] [place] [phone] Mar, [facility] [address] [facility] [id number] [address] [place] [address] Mar, [facility] [address] [facility] [id number] [address] [place] [address] Mar, [facility] [address] [facility] [id number] [address] [place] [phone] Mar, [facility] [address] [facility] [id number] [address] [place] [address] Mar, [facility] [address] [id number] [address] [place] [address], [place] [address] Mar, [facility] [address] [id number] [address] [place] [address], [place] [address] Mar, [facility] [address] [id number] [address] [place] [address], [place] [address] Mar, [facility] [address] [id number] [address] [place] [address], [place] [address] Mar, [facility] [address] [id number] [address] [place] [address], [place] [address] Mar, [facility] [address] [id number] [address] [place] [address], [place] [address] Feb, [facility] [address] [id number] [address] [place] [address], [place] [address] Feb, [facility] [address] [id number] [address] [place] [address], [place] [address] Feb, [facility] [address] [id number] [address] [place] [address], [place] [address] Feb, [facility] [address] [id number] [address] [place] [address], [place] [phone] Feb, [facility] [address] [id number] [address] [place] [address], [place] [address] Feb, [facility] [address] [id number] [address] [place] [address], [place] [id number] Feb, [facility] [address] [id number] [address] [place] [address], [place] [address] Feb, [facility] [address] [id number] [address] [place] [address], [place] [address] Jan, [facility] [address] [id number] [address] [place] [address], [place] [address] Jan, [facility] [address] [id number] [address] [place] [address], [place] [phone] Nov, [facility] [address] [id number] [address] [place] [address], [place] [address] Nov, [facility] [address] [id number] [address] [place] [address], [place] [address] Sep, [facility] [address] [id number] [address] [place] [address], [place] [address] Sep, [facility] [address] [id number] [address] [place] [address], [place] [address] Sep, [facility] [address] [id number] [address] [place] [address], [place] [address] Sep, [facility] [address] [id number] [address] [place] [address], [place] [address] Aug, [facility] [address] [id number] [address] [place] [address], [place] [address] Aug, [facility] [address] [id number] [address] [place] [address], [place] [address] Aug, [facility] [address] [id number] [address] [place] [address], [place] [address] Aug, [facility] [address] [id number] [address] [place] [address], [place] [address] Aug, [facility] [address] [id number] [address] [place] [address], [place] [address] Aug, [facility] [address] [id number] [address] [place] [address], [place] [address] July, [facility] [address] [id number] [address] [place] [address], [place] [address] July, [facility] [address] [id number] [address] [place] [address], [place] [address] July, [facility] [address] [id number] [address] [place] [address], [place] [address] July, [facility] [address] [id number] [address] [place] [address], [place] [address] Jun, [facility] [address] [id number] [address] [place] [address], [place] [address] Jun, [facility] [address] [id number] [address] [place] [address], [place] [address] Apr, [facility] [address] [id number] [address] [place] [address], [place] [address] Apr, [facility] [address] [id number] [address] [place] [address], [place] [address] Apr, [facility] [address] [id number] [address] [place] [address], [place] [phone] Apr, [facility] [address] [id number] [address] [place] [address], [place] [address] Apr, [facility] [address] [id number] [address] [place] [address], [place] [address] Apr, [facility] [address] [id number] [address] [place] [address], [place] [address] Mar, [facility] [address] [id number] [address] [place] [address], [place] [address] Mar, [facility] [address] [id number] [address] [place] [address], [place] [address] Mar, [facility] [address] [id number] [address] [place] [address], [place] [address] Mar, [facility] [address] [id number] [address] [place] [address], [place] [address] Mar, [facility] [address] [id number] [address] [place] [address], [place] [address] Feb, [facility] [address] [id number] [address] [place] [address], [place] [address] Feb, [facility] [address] [id number] [address] [place] [address], [place] [address] 17 Feb, 2013 [facility] [address] [id number] [address] [place] [address], [place] [address] 17 Feb, 2013 [facility] [address] [id number] [address] [place] [address], [place] [address] Feb, [facility] [address] [id number] [address] [place] [address], [place] [address] 10 Feb, 2013 [facility] [address] [id number] [address] [place] [address], [place] [address] 06 Feb, 2013 [facility] [address] [id number] [address] [place] [address], [place] [address] Feb, [facility] [address] [id number] [address] [place] [address], [place] [address] Feb, [facility] [address] [id number] [address] [place] [address], [place] [address] Feb, [facility] [address] [id number] [address] [place] [address], [place] [address] Feb, [facility] [address] [id number] [address] [place] [address], [place] [address] Feb, [facility] [address] [id number] [address] [place] [address], [place] [address] Jan, [facility] [address] [id number] [address] [place] [address], [place] [address] Jan, [facility] [address] [id number] [address] [place] [address], [place] [address] Jan, [facility] [address] [id number] [address] [place] [address], [place] [address] Jan, [facility] [address] [id number] [address] [place] [address], [place] [address] Jan, [facility] [address] [id number] [address] [place] [address], [place] [address] Jan, [facility] [address] [id number] [address] [place] [address], [place] [address] Jan, [facility] [address] [id number] [address] [place] [address], [place] [address] Jan, [facility] [address] [id number] [address] [place] [address], [place] [address] Jan, [facility] [address] [id number] [address] [place] [address], [place] [address] Jan, [facility] [address] [id number] [address] [place] [address], [place] [address] Jan, [facility] [address] [id number] [address] [place] [address], [place] [address] Jan, [facility] [address] [id number] [address] [place] [address], [place] [address] Jan, [facility] [address] [id number] [address] [place] [address], [place] [address] Jan, [facility] [address] [id number] [address] [place] [address], [place] [address] Jan, [facility] [address] [id number] [address] [place] [address], [place] [address] Dec, [facility] [address] [id number] [address] [place] [address], [place] [id number] Dec, [facility] [address] [id number] [address] [place] [address], [place] [id number] Dec, [facility] [address] [id number] [address] [place] [address], [place] [id number] Dec, [facility] [address] [id number] [address] [place] [address], [place] [id number] Oct, [facility] [address] [id number] [address] [place] [address], [place] [id number] Oct, [facility] [address] [id number] [address] [place] [address], [place] [id number] Oct, [facility] [address] [id number] [address] [place] [address], [place] [id number] Sep, [facility] [address] [id number] [address] [place] [address], [place] [id number] Aug, [facility] [address] [id number] [address] [place] [address], [place] [id number] July, [facility] [address] [id number] [address] [place] [address], [place] [id number] July, [facility] [address] [id number] [address] [place] [address], [place] [id number] July, [facility] [address] [id number] [address] [place] [address], [place] [id number] July, [facility] [address] [id number] [address] [place] [address], [place] [id number] May, [facility] [address] [id number] [address] [place] [address], [place] [id number] May, [facility] [address] [id number] [address] [place] [address], [place] [id number] Mar, [facility] [address] [id number] [address] [place] [address], [place] [id number] Mar, [facility] [address] [id number] [address] [place] [address], [place] [phone] Mar, [facility] [address] [id number] [address] [place] [address], [place] [id number] Feb, [facility] [address] [id number] [address] [place] [address], [place] [id number] Feb, [facility] [address] [id number] [address] [place] [address], [place] [id number] Feb, [facility] [address] [id number] [address] [place] [address], [place] [id number] Feb, [facility] [address] [id number] [address] [place] [address], [place] [id number] Feb, [facility] [address] [id number] [address] [place] [address], [place] [id number] Feb, [facility] [address] [id number] [address] [place] [address], [place] [id number] Jan, [facility] [address] [id number] [address] [place] [address], [place] [id number] Jan, [facility] [address] [id number] [address] [place] [address], [place] [id number] Jan, [facility] [address] [id number] [address] [place] [address], [place] [id number] Jan, [facility] [facility] [address] [id number] [address] [place] [address], [place] [id number] Jan, [facility] [address] [id number] [address] [place] [address], [place] [id number] Jan, [facility] [address] [id number] [address] [place] [address], [place] [id number] Jan, [facility] [address] [id number] [address] [place] [address], [place] [id number] Jan, [facility] [address] [id number] [address] [place] [address], [place] [id number] Dec, [facility] [address] [id number] [address] [place] [address], [place] [id number] Dec, [facility] [address] [id number] [address] [place] [address], [place] [id number] Dec, [facility] [address] [id number] [address] [place] [address], [place] [id number] Dec, [facility] [address] [id number] [address] [place] [address], [place] [id number] Oct, [facility] [address] [id number] [address] [place] [address], [place] [phone] Sep, [facility] [address] [id number] [address] [place] [address], [place] [id number] 30 Sep, 2011 [facility] [address] [id number] [address] [place] [address], [place] [id number] Sep, [facility] [address] [id number] [address] [place] [address], [place] [id number] Sep, [facility] [address] [id number] [address] [place] [address], [place] [id number] Jun, [facility] [address] [id number] [address] [place] [address], [place] [phone] May, [facility] [address] [id number] [address] [place] [address], [place] [id number] 14 Apr, 2011 [facility] [address] [id number] [address] [place] [address], [place] [id number] Apr, [facility] [address] [id number] [address] [place] [address], [place] [id number] Apr, [facility] [address] [id number] [address] [place] [address], [place] [phone] Feb, [facility] [address] [id number] [address] [place] [address], [place] [id number] Feb, [facility] [address] [id number] [address] [place] [address], [place] [id number] Jan, [facility] [address] [id number] [address] [place] [address], [place] [id number] Jan, [facility] [address] [id number] [address] [place] [address], [place] [id number] Jan, [facility] [address] [id number] [address] [place] [address], [place] [id number] Feb, [facility] [address] [id number] [address] [place] [address], [place] [id number] Feb, [facility] [address] [id number] [address] [place] [address], [place] [id number] 30 Feb, 2010 [facility] [address] [id number] [address] [place] [address], [place] [id number] 30 Feb, 2010 [facility] [address] [id number] [address] [place] [address], [place] [id number] 27 Feb, 2010 [facility] [address] [id number] [address] [place] [address], [place] [id number] 23 Feb, 2010 [facility] [address] [id number] [address] [place] [address], [place] [id number] 20 Feb, 2010 [facility] [address] [id number] [address] [place] [address], [place] [id number] 18 Feb, 2010 [facility] [address] [id number] [address] [place] [address], [place] [id number] 18 Feb, 2010 [facility] [address] [id number] [address] [place] [address], [place] [id number] 06 Feb, 2010 [facility] [address] [id number] [address] [place] [address], [place] [phone] Jan, [facility] [address] [id number] [address] [place] [address], [place] [id number] 24 Dec, 2009 [facility] [address] [id number] [address] [place] [address], [place] [id number] 14 Nov, 2009 [facility] [address] [id number] [address] [place] [address], [place] [phone] 18 Mar, 2009 [facility] [address] [id number] [address] [place] [address], [place] [id number] Jan, [facility] [address] [id number] [address] [place] [address], [place] [id number] 15 Dec, 2008 [facility] [address] [id number] [address] [place] [address], [place] [id number] 15 Dec, 2008 [facility] [address] [id number] [address] [place] [id number] Sep, [facility] [address] [facility] [id number] [address] [place] [id number] Jun, [facility] [address] [facility] [id number] [address] [place] [id number] Mar, [facility] [address] [facility] [id number] [address] [place] [id number] Jan, IMMUNIZATIONS No Known Immunizations SOCIAL HISTORY Never Assessed REASON FOR VISIT PLAN OF CARE VITAL SIGNS Height 57 in 2013-08-26 Weight 148.25 lbs 2013-08-26 Temperature 97.5 degrees Fahrenheit 2013-08-26 Heart Rate 74 bpm 2013-08-26 Respiratory Rate 18 2013-08-26 Blood pressure systolic 138 mmHg 2013-08-26 Blood pressure diastolic 78 mmHg 2013-08-26 MEDICATIONS Unknown Medications RESULTS No Results PROCEDURES Procedure Date Ordered Result Body Site MAMMOGRAM, SCREENING August 26, 2013 INSTRUCTIONS MEDICATIONS ADMINISTERED No Known [...] Heart cath per Dr. Burton at [facility]- hypotension 08/08 Hospitalization History Hemat[facility] 07/27/16
--- OUTSIDE RECORDS SUMMARY | 2019-08-06 07:56 | XMS REPORT ---
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 Name Role Phone DAY HUGHES Unavailable PROBLEMS Type Condition ICD9-CM Code DZD91-AC Code Onset Dates Condition S tatus SNOMED Code Problem Cataracts, bilateral H26.9 Active 32015056 Problem CVA (cerebral vascular accident) I63.9 Active 630471640 Problem Hyperlipemia E78.5 Active 4063517 4 Problem Lymphocytosis D72.820 Active 452788 09 Problem Peripheral vascular disease, unspecified I73.9 Active 940886889 Problem Iron deficiency anemia due to chronic blood loss D 50.0 Active 161174693 Problem Thyroid nodule E04.1 Active 37435 5005 Problem Dysfunction of right eustachian tube H69.81 Active 12320267 Problem Post-surgical 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 A ctive 67614832 Problem 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 2755 15864 Problem Diverticulitis of intestine without perforation or abscess without bleeding, unspecified part of intestinal tract K57.92 Active 258705461 Problem Essential hypertension I10 Active 61659095 Problem Lung nodule, solitary R91.1 Active 254174647 Problem 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 of 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 Active [id number] ALLERGIES No Information ENCOUNTERS Encounter Location Date Diagnosis [facility] [address] [facility] [id number] [address] [place] [phone] Nov, [facility] [address] [facility] [id number] [address] [place] [phone] Oct, [facility] [address] [facility] [id number] [address] [place] [phone] Oct, Arthralgia, unspecified join t M25.50 [place] [id number] [place] [address] Oct, Seborrheic keratosis L82.1 [facility] [address] [address] Oct, [facility] [address] [facility] [id number] [address] [place] [address] Sep, [facility] [address] [address] Sep, Other fatigue R53.83 ; Aleida diasis B37.9 and Arthralgia, unspecified joint M25.50 [facility] [address] [address] Jun, Post-surgical 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 [facility] [address] [place] [id number] [place] [phone] May, Post-surgical 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 and Peripheral vascular disease, unspecified I73.9 [facility] [address] [place] [id number] [address] [place] [address] Mar, [facility] [address] [address] Mar, Post-surgical 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 [facility] [address] [place] [address] Jan, Nodular thyroid disease E04. 1 ; Lung mass R91.8 ; Iron deficiency anemia due to chronic blood loss D50.0 ; Essential hypertension I10 and 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 of 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 [facility] [address] [id number] [address] [place] [address] [id number] Dec, Dental examination Z01.20 [facility] [address] [place] [id number] [address] [place] [address] Dec, Thyroid nodule E04.1 [facility] [address] [place] [id number] [address] [place] [phone] Oct, Lung nodule, solitary R91.1 [place] [address] [address] Oct, [place] [address] [address] Oct, [facility] [address] [address] Oct, [place] [address] [address] Sep, [place] [address] [address] Aug, [place] [address] [address] July, Arthralgia, unspecified join t M25.50 ; Essential hypertension I10 ; Seborrheic keratosis L82.1 and LLQ abdominal pain R10.32 [place] [address] [address] Feb, Arthralgia, unspecified join t M25.50 [place] [address] [address] Feb, Arthralgia, unspecified join t M25.50 [place] [address] [address] Dec, Arthralgia, unspecified join t M25.50 [place] [address] [address] Dec, Right flank pain R10.9 ; Lef t foot pain M79.672 ; Arthralgia, unspecified joint M25.50 and Encounter for immunization Z23 [place] [address] [address] Dec, CVA (cerebral vascular accid ent) I63.9 [place] [address] [address] Dec, RUQ abdominal pain R10.11 [place] [address] [place] [id number] [address] [place] [address] Dec, Right lower quadrant pain R1 0.31 ; Diverticulitis of intestine without perforation or abscess without bleeding, unspecified part of intestinal tract K57.92 and Internal hemorrhoids K64.8 [place] [address] [place] [id number] [address] [place] [address] Nov, [place] [address] [place] [id number] [address] [place] [address] Oct, [place] [address] [address] Aug, Iron deficiency anemia due t o chronic blood loss D50.0 [place] [address] [place] [id number] [address] [place] [address] Aug, Peripheral vascular disease, unspecified I73.9 and Colitis K52.9 [place] [address] [place] [id number] [address] [place] [address] Aug, H/O: GI bleed Z87.19 [place] [address] [place] [id number] [address] [place] [address] 07 Aug, 2016 CVA (cerebral vascular accid ent) I63.9 [place] [address] [place] [id number] [address] [place] [address] Aug, RUQ abdominal pain R10.11 [place] [address] [place] [id number] [address] [place] [address] July, RUQ abdominal pain R10.11 an d Lymphocytosis D72.820 [place] [address] [place] [id number] [address] [place] [address] July, [place] [address] [place] [id number] [address] [place] [address] July, Colitis K52.9 [place] [address] [place] [id number] [place] [address] [id number] July, [facility] [address] [id number] [address] [place] [address] Jun, Right flank pain R10.9 [facility] [address] [id number] [address] [place] [address] May, Urinary tract infection with out hematuria, site unspecified N39.0 and Right flank pain R10.9 [facility] [address] [id number] [address] [place] [address] Feb, Acute non-recurrent maxillar y sinusitis J01.00 and Need for hepatitis C screening test Z11.59 [facility] [address] [id number] [address] [place] [address] [id number] Jan, Dental examination Z01.20 [facility] [address] [id number] [address] [place] [address] [id number] Dec, Dental examination Z01.20 [facility] [address] [id number] [address] [place] [address] [id number] Dec, Dental examination Z01.20 [facility] [address] [id number] [address] [place] [address] Dec, [facility] [address] [id number] [address] [place] [address] Dec, [facility] [address] [id number] [address] [place] [address] [id number] Dec, Dental examination Z01.20 [facility] [address] [id number] [address] [place] [address] Nov, [facility] [address] [id number] [address] [place] [address] [id number] Nov, Dental examination Z01.20 [facility] [address] [id number] [address] [place] [phone] Oct, Arthralgia, unspecified join t M25.50 and Essential hypertension I10 [facility] [address] [id number] [address] [place] [address] Oct, [facility] [address] [facility] [id number] [address] [place] [address] Sep, Bilateral otitis media, unsp ecified chronicity, unspecified otitis media type H66.93 [facility] [address] [id number] [place] [address] [id number] Sep, Dental examination Z01.20 [facility] [address] [id number] [place] [address] [id number] Aug, Dental examination V72.2 [facility] [address] [facility] [id number] [place] [address] 14 Aug, 2015 Essential hypertension I10 a nd Muscle cramping R25.2 [facility] [address] [facility] [id number] [address] [place] [address] 09 Aug, 2015 Tension-type headache, not i ntractable, unspecified chronicity pattern G44.209 ; Muscle cramping R25.2 and Right leg pain M79.604 [facility] [address] [place] [address] [id number] July, Dental examination Z01.20 [facility] [id number] [place] [address] [id number] July, Encounter for dental examina tion and cleaning without abnormal findings Z01.20 and Dental caries K02.9 [facility] [address] [id number] [place] [address] [id number] Jun, Encounter for dental examina tion Z01.20 [facility] [address] [facility] [id number] [address] [place] [address] Apr, [facility] [address] [facility] [id number] [address] [place] [address] 02 Apr, 2015 Bronchitis J40 [facility] [address] [facility] [id number] [address] [place] [address] Feb, Hyperlipemia E78.5 ; Carotid arterial disease I77.9 ; Tobacco use Z72.0 ; Hypertension I10 ; RBBB I45.10 and CVA (cerebral vascular accident) I63.9 [place] [address] [place] [id number] [address] [place] [address] Feb, Status post CVA Z86.73 ; Dys function of right eustachian tube H69.81 and Essential hypertension I10 [place] [address] [address] Dec, Encounter for immunization Z [address] [address] Oct, PVD (peripheral vascular dis ease) 443.9 and Weight loss 783.[address] [address] Oct, PVD (peripheral vascular dis ease) 443.9 and Weight loss 783.21 [place] [address] [place] [id number] [address] [place] [address] Aug, Hyperlipidemia 272.4 ; Carot id arterial disease 447.9 ; Tobacco dependency 305.1 ; Hypertension 401.9 ; RBBB 426.4 and CVA (cerebral infarction) 434.[address] [address] Aug, [address] [address] Aug, Pseudoaneurysm following pro cedure 997.[address] [address] July, Chest pain, unspecified 786. 50 ; [...] for prophylactic vaccination and inoculation, Influenza V04.81 [facility] [address] [facility] [id number] [address] [place] [phone] Jun, [facility] [address] [facility] [id number] [address] [place] [address] Jun, [facility] [address] [facility] [id number] [address] [place] [phone] May, [facility] [address] [facility] [id number] [address] [place] [phone] May, [facility] [address] [facility] [id number] [address] [place] [phone] May, [facility] [address] [facility] [id number] [address] [place] [phone] May, [facility] [address] [id number] [address] [place] [phone] Mar, [facility] [address] [facility] [id number] [address] [place] [phone] Mar, [facility] [address] [facility] [id number] [address] [place] [id number] Mar, [facility] [address] [facility] [id number] [address] [place] [phone] Mar, [facility] [address] [facility] [id number] [address] [place] [address] Mar, [facility] [address] [id number] [address] [place] [address], [place] [address] Mar, [facility] [address] [id number] [address] [place] [address], [place] [address] Mar, [facility] [address] [id number] [address] [place] [address], [place] [address] Mar, [facility] [address] [id number] [address] [place] [address], [place] [address] Mar, [facility] [address] [id number] [address] [place] [address], [place] [address] Mar, [facility] [address] [id number] [address] [place] [address], [place] [address] Feb, [facility] [address] [id number] [address] [place] [address], [place] [address] Feb, [facility] [address] [id number] [address] [place] [address], [place] [address] Feb, [facility] [address] [id number] [address] [place] [address], [place] [address] Feb, [facility] [address] [id number] [address] [place] [address], [place] [address] Feb, [facility] [address] [id number] [address] [place] [address], [place] [address] Feb, [facility] [address] [id number] [address] [place] [address], [place] [address] Feb, [facility] [address] [id number] [address] [place] [address], [place] [address] Feb, [facility] [address] [id number] [address] [place] [address], [place] [address] Jan, [facility] [address] [id number] [address] [place] [address], [place] [address] Jan, [facility] [address] [id number] [address] [place] [address], [place] [address] Nov, [facility] [address] [id number] [address] [place] [address], [place] [address] Nov, [facility] [address] [id number] [address] [place] [address], [place] [address] Sep, [facility] [address] [id number] [address] [place] [address], [place] [address] Sep, [facility] [address] [id number] [address] [place] [address], [place] [address] Sep, [facility] [address] [id number] [address] [place] [address], [place] [address] Sep, [facility] [address] [id number] [address] [place] [address], [place] [address] Aug, [facility] [address] [id number] [address] [place] [address], [place] [address] Aug, [facility] [address] [id number] [address] [place] [address], [place] [address] Aug, [facility] [address] [id number] [address] [place] [address], [place] [address] Aug, [facility] [address] [id number] [address] [place] [address], [place] [address] Aug, [facility] [address] [id number] [address] [place] [address], [place] [address] Aug, [facility] [address] [id number] [address] [place] [address], [place] [address] July, [facility] [address] [id number] [address] [place] [address], [place] [address] July, [facility] [address] [id number] [address] [place] [address], [place] [address] July, [facility] [address] [id number] [address] [place] [address], [place] [address] July, [facility] [address] [id number] [address] [place] [address], [place] [address] Jun, [facility] [address] [id number] [address] [place] [address], [place] [address] Jun, [facility] [address] [id number] [address] [place] [address], [place] [address] Apr, [facility] [address] [id number] [address] [place] [address], [place] [address] Apr, [facility] [address] [id number] [address] [place] [address], [place] [address] Apr, [facility] [address] [id number] [address] [place] [address], [place] [address] Apr, [facility] [address] [id number] [address] [place] [address], [place] [address] Apr, [facility] [address] [id number] [address] [place] [address], [place] [address] Apr, [facility] [address] [id number] [address] [place] [address], [place] [address] Mar, [facility] [address] [id number] [address] [place] [address], [place] [address] Mar, [facility] [address] [id number] [address] [place] [address], [place] [address] Mar, [facility] [address] [id number] [address] [place] [address], [place] [address] Mar, [facility] [address] [id number] [address] [place] [address], [place] [address] Mar, [facility] [address] [id number] [address] [place] [address], [place] [address] Feb, [facility] [address] [id number] [address] [place] [address], [place] [address] Feb, [facility] [address] [id number] [address] [place] [address], [place] [id number] 17 Feb, 2013 [facility] [address] [id number] [address] [place] [address], [place] [address] 17 Feb, 2013 [facility] [address] [id number] [address] [place] [address], [place] [address] Feb, [facility] [address] [id number] [address] [place] [address], [place] [address] 10 Feb, 2013 [facility] [address] [id number] [address] [place] [address], [place] [address] 06 Feb, 2013 [facility] [address] [id number] [address] [place] [address], [place] [address] Feb, [facility] [address] [id number] [address] [place] [address], [place] [address] Feb, [facility] [address] [id number] [address] [place] [address], [place] [address] Feb, [facility] [address] [id number] [address] [place] [address], [place] [address] Feb, [facility] [address] [id number] [address] [place] [address], [place] [address] Feb, [facility] [address] [id number] [address] [place] [address], [place] [address] Jan, [facility] [address] [id number] [address] [place] [address], [place] [address] Jan, [facility] [address] [id number] [address] [place] [address], [place] [id number] Jan, [facility] [address] [id number] [address] [place] [address], [place] [address] Jan, [facility] [address] [id number] [address] [place] [address], [place] [address] Jan, [facility] [address] [id number] [address] [place] [address], [place] [address] Jan, [facility] [address] [id number] [address] [place] [address], [place] [address] Jan, [facility] [address] [id number] [address] [place] [address], [place] [address] Jan, [facility] [address] [id number] [address] [place] [address], [place] [address] Jan, [facility] [address] [id number] [address] [place] [address], [place] [address] Jan, [facility] [address] [id number] [address] [place] [address], [place] [address] Jan, [facility] [address] [id number] [address] [place] [address], [place] [address] Jan, [facility] [address] [id number] [address] [place] [address], [place] [address] Jan, [facility] [address] [id number] [address] [place] [address], [place] [id number] Jan, [facility] [address] [id number] [address] [place] [address], [place] [id number] Jan, [facility] [address] [id number] [address] [place] [address], [place] [id number] Dec, [facility] [address] [id number] [address] [place] [address], [place] [id number] Dec, [facility] [address] [id number] [address] [place] [address], [place] [id number] Dec, [facility] [address] [id number] [address] [place] [address], [place] [id number] Dec, [facility] [address] [id number] [address] [place] [address], [place] [id number] Oct, [facility] [address] [id number] [address] [place] [address], [place] [id number] Oct, [facility] [address] [id number] [address] [place] [address], [place] [id number] Oct, [facility] [address] [id number] [address] [place] [address], [place] [id number] Sep, [facility] [address] [id number] [address] [place] [address], [place] [id number] Aug, [facility] [address] [id number] [address] [place] [address], [place] [id number] July, [facility] [address] [id number] [address] [place] [address], [place] [id number] July, [facility] [address] [id number] [address] [place] [address], [place] [id number] July, [facility] [address] [id number] [address] [place] [address], [place] [id number] July, [facility] [address] [id number] [address] [place] [address], [place] [id number] May, [facility] [address] [id number] [address] [place] [address], [place] [id number] May, [facility] [address] [id number] [address] [place] [address], [place] [id number] Mar, [facility] [address] [id number] [address] [place] [address], [place] [id number] Mar, [facility] [address] [id number] [address] [place] [address], [place] [id number] Mar, [facility] [address] [id number] [address] [place] [address], [place] [id number] Feb, [facility] [address] [id number] [address] [place] [address], [place] [id number] Feb, [facility] [address] [id number] [address] [place] [address], [place] [id number] Feb, [facility] [address] [id number] [address] [place] [address], [place] [id number] Feb, [facility] [address] [id number] [address] [place] [address], [place] [id number] Feb, [facility] [address] [id number] [address] [place] [address], [place] [id number] Feb, [facility] [address] [id number] [address] [place] [address], [place] [id number] Jan, [facility] [address] [id number] [address] [place] [address], [place] [id number] Jan, [facility] [address] [id number] [address] [place] [address], [place] [id number] Jan, [facility] [address] [id number] [address] [place] [address], [place] [id number] Jan, [facility] [address] [id number] [address] [place] [address], [place] [id number] Jan, [facility] [address] [id number] [address] [place] [address], [place] [id number] Jan, [facility] [address] [id number] [address] [place] [address], [place] [id number] Jan, [facility] [address] [id number] [address] [place] [address], [place] [id number] Jan, [facility] [address] [id number] [address] [place] [address], [place] [id number] Dec, [facility] [address] [id number] [address] [place] [address], [place] [id number] Dec, [facility] [address] [id number] [address] [place] [address], [place] [id number] Dec, [facility] [address] [id number] [address] [place] [address], [place] [id number] Dec, [facility] [address] [id number] [address] [place] [address], [place] [id number] Oct, [facility] [address] [id number] [address] [place] [address], [place] [id number] Sep, [facility] [address] [id number] [address] [place] [address], [place] [id number] 30 Sep, 2011 [facility] [address] [id number] [address] [place] [address], [place] [id number] Sep, [facility] [address] [id number] [address] [place] [address], [place] [id number] Sep, [facility] [address] [id number] [address] [place] [address], [place] [id number] Jun, [facility] [address] [id number] [address] [place] [address], [place] [id number] May, [facility] [address] [id number] [address] [place] [address], [place] [id number] 14 Apr, 2011 [facility] [address] [id number] [address] [place] [address], [place] [id number] Apr, [facility] [address] [id number] [address] [place] [address], [place] [id number] Apr, [facility] [address] [id number] [address] [place] [address], [place] [id number] Feb, [facility] [address] [id number] [address] [place] [address], [place] [id number] Feb, [facility] [address] [id number] [address] [place] [address], [place] [id number] Jan, [facility] [address] [id number] [address] [place] [address], [place] [id number] Jan, [facility] [address] [id number] [address] [place] [address], [place] [id number] Jan, [facility] [address] [id number] [address] [place] [address], [place] [id number] Feb, [facility] [address] [id number] [address] [place] [address], [place] [id number] Feb, [facility] [address] [id number] [address] [place] [address], [place] [id number] 30 Feb, 2010 [facility] [address] [id number] [address] [place] [address], [place] [id number] 30 Feb, 2010 [facility] [address] [id number] [address] [place] [address], [place] [id number] 27 Feb, 2010 [facility] [address] [id number] [address] [place] [address], [place] [id number] 23 Feb, 2010 [facility] [address] [id number] [address] [place] [address], [place] [id number] 20 Feb, 2010 [facility] [address] [id number] [address] [place] [address], [place] [id number] 18 Feb, 2010 [facility] [address] [id number] [address] [place] [address], [place] [id number] 18 Feb, 2010 [facility] [address] [id number] [address] [place] [address], [place] [id number] 06 Feb, 2010 [facility] [address] [id number] [address] [place] [address], [place] [id number] Jan, [facility] [address] [id number] [address] [place] [address], [place] [id number] 24 Dec, 2009 [facility] [address] [id number] [address] [place] [address], [place] [id number] 14 Nov, 2009 [facility] [address] [id number] [address] [place] [address], [place] [id number] 18 Mar, 2009 [facility] [address] [id number] [address] [place] [address], [place] [id number] Jan, [facility] [address] [id number] [address] [place] [address], [place] [id number] 15 Dec, 2008 [facility] [address] [id number] [address] [place] [address], [place] [id number] 15 Dec, 2008 [facility] [address] [id number] [address] [place] [id number] Sep, [facility] [address] [facility] [id number] [address] [place] [id number] Jun, [facility] [address] [facility] [id number] [address] [place] [id number] Mar, [facility] [address] [facility] [id number] [address] [place] [id number] Jan, IMMUNIZATIONS No Known Immunizations SOCIAL HISTORY [...]
--- OUTSIDE RECORDS SUMMARY | 2019-08-06 07:56 | XMS REPORT ---
Author Author Lavern HUGHES [facility] Address [address] [place] [address] Care Team Providers Care Rail Gang Supervisor Name Role Phone DAY HUGHES Unavailable PROBLEMS Type Condition ICD9-CM Code NJN14-JB Code Onset Dates Condition S tatus SNOMED Code Problem Cataracts, bilateral H26.9 Active 54864497 Problem CVA (cerebral vascular accident) I63.9 Active 925418176 Problem Hyperlipemia E78.5 Active 3101106 4 Problem Lymphocytosis D72.820 Active 500468 09 Problem Peripheral vascular disease, unspecified I73.9 Active 246474356 Problem Iron deficiency anemia due to chronic blood loss D 50.0 Active 956605215 Problem Thyroid nodule E04.1 Active 00426 5005 Problem Dysfunction of right eustachian tube H69.81 Active 11260598 Problem Post-surgical 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 A ctive 62178848 Problem 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 2755 44428 Problem Diverticulitis of intestine without perforation or abscess without bleeding, unspecified part of intestinal tract K57.92 Active 844450855 Problem Essential hypertension I10 Active 14128309 Problem Lung nodule, solitary R91.1 Active 412362003 Problem 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 of 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 Active [id number] ALLERGIES No Information ENCOUNTERS Encounter Location Date Diagnosis [facility] [place] [address] [facility] [id number] [address] [place] [address] Oct, [facility] [place] [address] [facility] [id number] [address] [place] [address] Oct, Arthralgia, unspecified join t M25.50 [facility] [place] [address] [facility] [id number] [address] [place] [address] Oct, Seborrheic keratosis L82.1 [place] [address] [place] [address] Oct, [facility] [place] [address] [address] Sep, [facility] [place] [address] [place] [id number] [address] [place] [address] Sep, Other fatigue R53.83 ; Aleida diasis B37.9 and Arthralgia, unspecified joint M25.50 [facility] [place] [address] [place] [id number] [address] [place] [address] Jun, Post-surgical 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 [place] [address] [address] May, Post-surgical 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 and Peripheral vascular disease, unspecified I73.9 [place] [address] [address] Mar, [facility] [place] [address] [address] Mar, Post-surgical 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 [place] [address] [place] [id number] [address] [place] [address] Jan, Nodular thyroid disease E04. 1 ; Lung mass R91.8 ; Iron deficiency anemia due to chronic blood loss D50.0 ; Essential hypertension I10 and 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 of 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 [facility] [address] [place] [address] [id number] [address] [place] [address] [id number] Dec, Dental examination Z01.20 [place] [address] [place] [id number] [address] [place] [address] Dec, Thyroid nodule E04.1 [facility] [place] [address] [place] [id number] [address] [place] [address] Oct, Lung nodule, solitary R91.1 [place] [address] [place] [id number] [address] [place] [address] Oct, [facility] [place] [address] [address] Oct, [facility] [place] [address] [address] Oct, [facility] [place] [address] [address] Sep, [facility] [place] [address] [address] Aug, [facility] [place] [address] [address] July, Arthralgia, unspecified join t M25.50 ; Essential hypertension I10 ; Seborrheic keratosis L82.1 and LLQ abdominal pain R10.32 [place] [address] [address] Feb, Arthralgia, unspecified join t M25.50 [place] [address] [address] Feb, Arthralgia, unspecified join t M25.50 [place] [address] [address] Dec, Arthralgia, unspecified join t M25.50 [place] [address] [address] Dec, Right flank pain R10.9 ; Lef t foot pain M79.672 ; Arthralgia, unspecified joint M25.50 and Encounter for immunization Z23 [place] [address] [address] Dec, CVA (cerebral vascular accid ent) I63.9 [place] [address] [address] Dec, RUQ abdominal pain R10.11 [place] [address] [place] [address] Dec, Right lower quadrant pain R1 0.31 ; Diverticulitis of intestine without perforation or abscess without bleeding, unspecified part of intestinal tract K57.92 and Internal hemorrhoids K64.8 [place] [address] [address] Nov, [place] [address] [address] Oct, [place] [address] [address] Aug, Iron deficiency anemia due t o chronic blood loss D50.0 [place] [address] [address] Aug, Peripheral vascular disease, unspecified I73.9 and Colitis K52.9 [place] [address] [address] Aug, H/O: GI bleed Z87.19 [place] [address] [place] [id number] [address] [place] [address] 07 Aug, 2016 CVA (cerebral vascular accid ent) I63.9 [place] [address] [place] [id number] [address] [place] [address] Aug, RUQ abdominal pain R10.11 [place] [address] [place] [id number] [address] [place] [address] July, RUQ abdominal pain R10.11 an d Lymphocytosis D72.820 [place] [address] [place] [id number] [address] [place] [address] July, [place] [address] [address] July, Colitis K52.9 [facility] [address] [place] [id number] [place] [address] [id number] July, [place] [address] [place] [id number] [address] [place] [address] Jun, Right flank pain R10.9 [facility] [place] [address] [id number] [address] [place] [address] May, Urinary tract infection with out hematuria, site unspecified N39.0 and Right flank pain R10.9 [facility] [place] [address] [id number] [address] [place] [address] Feb, Acute non-recurrent maxillar y sinusitis J01.00 and Need for hepatitis C screening test Z11.59 [facility] [address] [id number] [address] [place] [address] [id number] Jan, Dental examination Z01.20 [facility] [address] [id number] [address] [place] [address] [id number] Dec, Dental examination Z01.20 [facility] [address] [id number] [address] [place] [address] [id number] Dec, Dental examination Z01.20 [facility] [place] [address] [id number] [address] [place] [address] Dec, [facility] [place] [address] [id number] [address] [place] [address] Dec, [facility] [address] [id number] [address] [place] [address] [id number] Dec, Dental examination Z01.20 [facility] [place] [address] [id number] [address] [place] [address] Nov, [facility] [address] [id number] [address] [place] [address] [id number] Nov, Dental examination Z01.20 [facility] [place] [address] [id number] [address] [place] [address] Oct, Arthralgia, unspecified join t M25.50 and Essential hypertension I10 [facility] [place] [address] [id number] [address] [place] [address] Oct, [facility] [address] [place] [id number] [address] [place] [address] Sep, Bilateral otitis media, unsp ecified chronicity, unspecified otitis media type H66.93 [facility] [address] [id number] [address] [place] [address] [id number] Sep, Dental examination Z01.20 [facility] [id number] [place] [address] [id number] Aug, Dental examination V72.2 [facility] [place] [address] [address] 14 Aug, 2015 Essential hypertension I10 a nd Muscle cramping R25.2 [facility] [place] [address] [place] [id number] [address] [place] [id number] 09 Aug, 2015 Tension-type headache, not i ntractable, unspecified chronicity pattern G44.209 ; Muscle cramping R25.2 and Right leg pain M79.604 [facility] [address] [place] [address] [id number] July, Dental examination Z01.20 [facility] [address] [place] [id number] [place] [address] [id number] July, Encounter for dental examina tion and cleaning without abnormal findings Z01.20 and Dental caries K02.9 [facility] [address] [place] [address] [id number] [place] [address] [id number] Jun, Encounter for dental examina tion Z01.20 [facility] [place] [address] [place] [id number] [address] [place] [id number] Apr, [facility] [address] [place] [id number] [address] [place] [id number] Apr, Bronchitis J40 [facility] [place] [address] [place] [id number] [address] [place] [id number] 09 Feb, 2015 Hyperlipemia E78.5 ; Carotid arterial disease I77.9 ; Tobacco use Z72.0 ; Hypertension I10 ; RBBB I45.10 and CVA (cerebral vascular accident) I63.[address] [address] Feb, Status post CVA Z86.73 ; Dys function of right eustachian tube H69.81 and Essential hypertension I10 [address] [address] Dec, Encounter for immunization Z [address] [address] Oct, PVD (peripheral vascular dis ease) 443.9 and Weight loss 783.[address] [address] Oct, PVD (peripheral vascular dis ease) 443.9 and Weight loss 783.[address] [address] Aug, Hyperlipidemia 272.4 ; Carot id arterial disease 447.9 ; Tobacco dependency 305.1 ; Hypertension 401.9 ; RBBB 426.4 and CVA (cerebral infarction) 434.[address] [address] Aug, [address] [address] Aug, Pseudoaneurysm following pro cedure 997.[address] [address] July, Chest pain, unspecified 786. 50 ; [...] for prophylactic vaccination and inoculation, Influenza V04.81 [facility] [place] [address] [id number] [address] [place] [id number] 14 Jun, 2014 [facility] [place] [address] [id number] [address] [place] [id number] Jun, [facility] [place] [address] [facility] [id number] [address] [place] [id number] May, [facility] [place] [address] [id number] [address] [place] [id number] May, [facility] [place] [address] [id number] [address] [place] [address] May, [facility] [place] [address] [id number] [address] [place] [id number] May, [facility] [place] [address] [facility] [id number] [address] [place] [id number] Mar, [facility] [place] [address] [id number] [address] [place] [id number] Mar, [facility] [place] [address] [id number] [address] [place] [id number] Mar, [facility] [place] [address] [id number] [address] [place] [id number] Mar, [facility] [place] [address] [id number] [address] [place] [id number] Mar, [facility] [place] [address] [id number] [address] [place] [id number] Mar, [facility] [address] [id number] [address] [place] [address], [place] [address] Mar, [facility] [address] [id number] [address] [place] [address], [place] [address] Mar, [facility] [address] [id number] [address] [place] [address], [place] [address] Mar, [facility] [address] [id number] [address] [place] [address], [place] [address] Mar, [facility] [address] [id number] [address] [place] [address], [place] [address] Feb, [facility] [address] [id number] [address] [place] [address], [place] [address] Feb, [facility] [address] [id number] [address] [place] [address], [place] [address] Feb, [facility] [address] [id number] [address] [place] [address], [place] [address] Feb, [facility] [address] [id number] [address] [place] [address], [place] [address] Feb, [facility] [address] [id number] [address] [place] [address], [place] [address] Feb, [facility] [address] [id number] [address] [place] [address], [place] [address] Feb, [facility] [address] [id number] [address] [place] [address], [place] [address] Feb, [facility] [place] [facility] [address] [id number] [address] [place] [address], [place] [address] Jan, [facility] [place] [facility] [address] [id number] [address] [place] [address], [place] [address] Jan, [facility] [place] [facility] [address] [id number] [address] [place] [address], [place] [address] Nov, [facility] [place] [facility] [address] [id number] [address] [place] [address], [place] [address] Nov, [facility] [address] [id number] [address] [place] [address], [place] [address] Sep, [facility] [address] [id number] [address] [place] [address], [place] [address] Sep, [facility] [address] [id number] [address] [place] [address], [place] [address] Sep, [facility] [address] [id number] [address] [place] [address], [place] [address] Sep, [facility] [address] [id number] [address] [place] [address], [place] [address] Aug, [facility] [address] [id number] [address] [place] [address], [place] [address] Aug, [facility] [address] [id number] [address] [place] [address], [place] [address] Aug, [facility] [address] [id number] [address] [place] [address], [place] [address] Aug, [facility] [address] [id number] [address] [place] [address], [place] [address] Aug, [facility] [address] [id number] [address] [place] [address], [place] [address] Aug, [facility] [address] [id number] [address] [place] [address], [place] [address] July, [facility] [address] [id number] [address] [place] [address], [place] [address] July, [facility] [place] [facility] [address] [id number] [address] [place] [address], [place] [address] July, [facility] [address] [id number] [address] [place] [address], [place] [address] July, [facility] [address] [id number] [address] [place] [address], [place] [address] Jun, [facility] [place] [facility] [address] [id number] [address] [place] [address], [place] [address] Jun, [facility] [address] [id number] [address] [place] [address], [place] [address] Apr, [facility] [address] [id number] [address] [place] [address], [place] [address] Apr, [facility] [address] [id number] [address] [place] [address], [place] [address] Apr, [facility] [address] [id number] [address] [place] [address], [place] [address] Apr, [facility] [address] [id number] [address] [place] [address], [place] [address] Apr, [facility] [address] [id number] [address] [place] [address], [place] [address] Apr, [facility] [address] [id number] [address] [place] [address], [place] [address] Mar, [facility] [address] [id number] [address] [place] [address], [place] [address] Mar, [facility] [address] [id number] [address] [place] [address], [place] [address] Mar, [facility] [address] [id number] [address] [place] [address], [place] [address] Mar, [facility] [address] [id number] [address] [place] [address], [place] [address] Mar, [facility] [address] [id number] [address] [place] [address], [place] [address] Feb, [facility] [address] [id number] [address] [place] [address], [place] [address] Feb, [facility] [place] [facility] [address] [id number] [address] [place] [address], [place] [address] Feb, [facility] [address] [id number] [address] [place] [address], [place] [address] 17 Feb, 2013 [facility] [address] [id number] [address] [place] [address], [place] [address] Feb, [facility] [address] [id number] [address] [place] [address], [place] [address] Feb, [facility] [address] [id number] [address] [place] [address], [place] [address] 06 Feb, 2013 [facility] [address] [id number] [address] [place] [address], [place] [address] Feb, [facility] [address] [id number] [address] [place] [address], [place] [address] Feb, [facility] [address] [id number] [address] [place] [address], [place] [address] Feb, [facility] [place] [address] [id number] [address] [place] [address], [place] [address] Feb, [facility] [place] [address] [id number] [address] [place] [address], [place] [address] Feb, [facility] [address] [id number] [address] [place] [address], [place] [address] Jan, [facility] [address] [id number] [address] [place] [address], [place] [address] Jan, [facility] [place] [address] [id number] [address] [place] [address], [place] [address] Jan, [facility] [place] [address] [id number] [address] [place] [address], [place] [address] Jan, [facility] [address] [id number] [address] [place] [address], [place] [address] Jan, [facility] [address] [id number] [address] [place] [address], [place] [address] Jan, [facility] [place] [address] [id number] [address] [place] [address], [place] [address] Jan, [facility] [address] [id number] [address] [place] [address], [place] [address] Jan, [facility] [address] [id number] [address] [place] [address], [place] [address] Jan, [facility] [address] [id number] [address] [place] [address], [place] [address] Jan, [facility] [address] [id number] [address] [place] [address], [place] [address] Jan, [facility] [address] [id number] [address] [place] [address], [place] [address] Jan, [facility] [address] [id number] [address] [place] [address], [place] [address] Jan, [facility] [address] [id number] [address] [place] [address], [place] [address] Jan, [facility] [address] [id number] [address] [place] [address], [place] [address] Jan, [facility] [address] [id number] [address] [place] [address], [place] [address] Dec, [facility] [address] [id number] [address] [place] [address], [place] [address] Dec, [facility] [address] [id number] [address] [place] [address], [place] [address] Dec, [facility] [address] [id number] [address] [place] [address], [place] [address] Dec, [facility] [address] [id number] [address] [place] [address], [place] [address] Oct, [facility] [address] [id number] [address] [place] [address], [place] [address] Oct, [facility] [address] [id number] [address] [place] [address], [place] [address] Oct, [facility] [address] [id number] [address] [place] [address], [place] [address] Sep, [facility] [address] [id number] [address] [place] [address], [place] [address] Aug, [facility] [address] [id number] [address] [place] [address], [place] [address] July, [facility] [address] [id number] [address] [place] [address], [place] [address] July, [facility] [address] [id number] [address] [place] [address], [place] [address] July, [facility] [address] [id number] [address] [place] [address], [place] [address] July, [facility] [address] [id number] [address] [place] [address], [place] [address] May, [facility] [place] [address] [id number] [address] [place] [address], [place] [address] May, [facility] [address] [id number] [address] [place] [address], [place] [address] Mar, [facility] [address] [id number] [address] [place] [address], [place] [address] Mar, [facility] [place] [address] [id number] [address] [place] [address], [place] [address] Mar, [facility] [address] [id number] [address] [place] [address], [place] [address] Feb, [facility] [address] [id number] [address] [place] [address], [place] [address] Feb, [facility] [address] [id number] [address] [place] [address], [place] [address] Feb, [facility] [address] [id number] [address] [place] [address], [place] [address] Feb, [facility] [facility] [address] [id number] [address] [place] [address], [place] [address] Feb, [facility] [address] [id number] [address] [place] [address], [place] [address] Feb, [facility] [address] [id number] [address] [place] [address], [place] [address] Jan, [facility] [address] [id number] [address] [place] [address], [place] [address] Jan, [facility] [address] [id number] [address] [place] [address], [place] [address] Jan, [facility] [address] [id number] [address] [place] [address], [place] [address] Jan, [facility] [address] [id number] [address] [place] [address], [place] [address] Jan, [facility] [address] [id number] [address] [place] [address], [place] [address] Jan, [facility] [address] [id number] [address] [place] [address], [place] [address] Jan, [facility] [address] [id number] [address] [place] [address], [place] [address] Jan, [facility] [address] [id number] [address] [place] [address], [place] [address] Dec, [facility] [place] [address] [id number] [address] [place] [address], [place] [address] Dec, [facility] [address] [id number] [address] [place] [address], [place] [address] Dec, [facility] [address] [id number] [address] [place] [address], [place] [address] Dec, [facility] [address] [id number] [address] [place] [address], [place] [address] Oct, [facility] [address] [id number] [address] [place] [address], [place] [address] Sep, [facility] [address] [id number] [address] [place] [address], [place] [address] Sep, [facility] [place] [address] [id number] [address] [place] [address], [place] [address] Sep, [facility] [address] [id number] [address] [place] [address], [place] [address] Sep, [facility] [address] [id number] [address] [place] [address], [place] [address] Jun, [facility] [address] [id number] [address] [place] [address], [place] [address] May, [facility] [address] [id number] [address] [place] [address], [place] [address] 14 Apr, 2011 [facility] [address] [id number] [address] [place] [address], [place] [address] Apr, [facility] [address] [id number] [address] [place] [address], [place] [address] Apr, [facility] [address] [id number] [address] [place] [address], [place] [address] Feb, [facility] [address] [id number] [address] [place] [address], [place] [address] Feb, [facility] [address] [id number] [address] [place] [address], [place] [address] Jan, [facility] [address] [id number] [address] [place] [address], [place] [address] Jan, [facility] [address] [id number] [address] [place] [address], [place] [address] Jan, [facility] [address] [id number] [address] [place] [address], [place] [address] Feb, [facility] [address] [id number] [address] [place] [address], [place] [address] Feb, [facility] [address] [id number] [address] [place] [address], [place] [address] Feb, [facility] [address] [id number] [address] [place] [address], [place] [address] 30 Feb, 2010 [facility] [address] [id number] [address] [place] [address], [place] [address] 27 Feb, 2010 [facility] [address] [id number] [address] [place] [address], [place] [address] 23 Feb, 2010 [facility] [address] [id number] [address] [place] [address], [place] [address] 20 Feb, 2010 [facility] [address] [id number] [address] [place] [address], [place] [address] 18 Feb, 2010 [facility] [address] [id number] [address] [place] [address], [place] [address] 18 Feb, 2010 [facility] [address] [id number] [address] [place] [address], [place] [address] 06 Feb, 2010 [facility] [address] [id number] [address] [place] [address], [place] [address] Jan, [facility] [address] [id number] [address] [place] [address], [place] [address] 24 Dec, 2009 [facility] [address] [id number] [address] [place] [address], [place] [address] 14 Nov, 2009 [facility] [address] [id number] [address] [place] [address], [place] [address] Mar, [facility] [address] [id number] [address] [place] [address], [place] [address] Jan, [facility] [address] [id number] [address] [place] [address] 15 Dec, 2008 [facility] [address] [id number] [address] [place] [address], [place] [address] Dec, [facility] [address] [id number] [address] [place] [address], [place] [address] Sep, [facility] [address] [id number] [address] [place] [address], [place] [address] Jun, [facility] [place] [address] [facility] [address] [facility] [id number] [address] [place] [address] Mar, [facility] [place] [address] [address] [facility] [id number] [address] [place] [address] Jan, IMMUNIZATIONS No Known Immunizations SOCIAL HISTORY [...] Heart cath per Dr[facility] Burton [facility]- hypotension 08/08 Hospitalization History Hematochezia-[facility] 07/27/16
--- OUTSIDE RECORDS SUMMARY | 2019-08-06 07:56 | XMS REPORT ---
Author Author Lavern HUGHES [facility] Address [address] [place] [address] Care Team Providers Care Coil Tester Name Role Phone DAY HUGHES Unavailable PROBLEMS Type Condition ICD9-CM Code CNC66-WA Code Onset Dates Condition S tatus SNOMED Code Problem Cataracts, bilateral H26.9 Active 14068016 Problem CVA (cerebral vascular accident) I63.9 Active 910866220 Problem Hyperlipemia E78.5 Active 1957736 4 Problem Lymphocytosis D72.820 Active 811203 09 Problem Peripheral vascular disease, unspecified I73.9 Active 105771786 Problem Iron deficiency anemia due to chronic blood loss D 50.0 Active 017351372 Problem Thyroid nodule E04.1 Active 60034 5005 Problem Dysfunction of right eustachian tube H69.81 Active 17109580 Problem Post-surgical 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 A ctive 81580166 Problem 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 2755 44774 Problem Diverticulitis of intestine without perforation or abscess without bleeding, unspecified part of intestinal tract K57.92 Active 012145411 Problem Essential hypertension I10 Active 30924230 Problem Lung nodule, solitary R91.1 Active 409204615 Problem 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 of 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 Active [id number] ALLERGIES No Information ENCOUNTERS Encounter Location Date Diagnosis [facility] [address] [id number] [address] [place] [id number] Nov, [facility] [address] [id number] [address] [place] [phone] Oct, [facility] [address] [id number] [address] [place] [id number] Oct, Arthralgia, unspecified join t M25.50 [place] [address] [place] [address] Oct, Seborrheic keratosis L82.1 [facility] [address] [address] Oct, [facility] [address] [id number] [address] [place] [address] Sep, [facility] [address] [address] Sep, Other fatigue R53.83 ; Aleida diasis B37.9 and Arthralgia, unspecified joint M25.50 [facility] [address] [address] Jun, Post-surgical 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 [facility] [address] [place] [id number] [place] [address] May, Post-surgical 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 and Peripheral vascular disease, unspecified I73.9 [facility] [address] [place] [id number] [address] [place] [address] Mar, [facility] [address] [address] Mar, Post-surgical 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 [facility] [address] [place] [address] Jan, Nodular thyroid disease E04. 1 ; Lung mass R91.8 ; Iron deficiency anemia due to chronic blood loss D50.0 ; Essential hypertension I10 and 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 of 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 [facility] [address] [id number] [address] [place] [id number] Dec, Dental examination Z01.20 [facility] [address] [place] [id number] [address] [place] [address] Dec, Thyroid nodule E04.1 [facility] [address] [place] [id number] [address] [place] [id number] Oct, Lung nodule, solitary R91.1 [place] [address] [address] Oct, [place] [address] [address] Oct, [facility] [address] [address] Oct, [place] [address] [address] Sep, [place] [address] [address] Aug, [place] [address] [address] July, Arthralgia, unspecified join t M25.50 ; Essential hypertension I10 ; Seborrheic keratosis L82.1 and LLQ abdominal pain R10.32 [place] [address] [address] Feb, Arthralgia, unspecified join t M25.50 [place] [address] [address] Feb, Arthralgia, unspecified join t M25.50 [place] [address] [address] Dec, Arthralgia, unspecified join t M25.50 [place] [address] [address] Dec, Right flank pain R10.9 ; Lef t foot pain M79.672 ; Arthralgia, unspecified joint M25.50 and Encounter for immunization Z23 [place] [address] [address] Dec, CVA (cerebral vascular accid ent) I63.9 [place] [address] [address] Dec, RUQ abdominal pain R10.11 [place] [address] [place] [id number] [address] [place] [address] Dec, Right lower quadrant pain R1 0.31 ; Diverticulitis of intestine without perforation or abscess without bleeding, unspecified part of intestinal tract K57.92 and Internal hemorrhoids K64.8 [place] [address] [place] [id number] [address] [place] [address] Nov, [place] [address] [place] [id number] [address] [place] [address] Oct, [place] [address] [address] Aug, Iron deficiency anemia due t o chronic blood loss D50.0 [place] [address] [place] [id number] [address] [place] [address] Aug, Peripheral vascular disease, unspecified I73.9 and Colitis K52.9 [place] [address] [place] [id number] [address] [place] [address] Aug, H/O: GI bleed Z87.19 [place] [address] [place] [id number] [address] [place] [id number] 07 Aug, 2016 CVA (cerebral vascular accid ent) I63.9 [place] [address] [place] [id number] [address] [place] [phone] Aug, RUQ abdominal pain R10.11 [place] [address] [place] [id number] [address] [place] [address] July, RUQ abdominal pain R10.11 an d Lymphocytosis D72.820 [place] [address] [place] [id number] [address] [place] [address] July, [place] [address] [place] [id number] [address] [place] [id number] July, Colitis K52.9 [place] [address] [place] [id number] [place] [address] [id number] July, [facility] [address] [id number] [address] [place] [address] Jun, Right flank pain R10.9 [facility] [address] [id number] [address] [place] [address] May, Urinary tract infection with out hematuria, site unspecified N39.0 and Right flank pain R10.9 [facility] [address] [id number] [address] [place] [address] Feb, Acute non-recurrent maxillar y sinusitis J01.00 and Need for hepatitis C screening test Z11.59 [facility] [address] [id number] [address] [place] [address] [id number] Jan, Dental examination Z01.20 [facility] [address] [id number] [address] [place] [address] [id number] Dec, Dental examination Z01.20 [facility] [address] [id number] [address] [place] [address] [id number] Dec, Dental examination Z01.20 [facility] [address] [id number] [address] [place] [id number] Dec, [facility] [address] [id number] [address] [place] [phone] Dec, [facility] [address] [id number] [address] [place] [address] [id number] Dec, Dental examination Z01.20 [facility] [address] [id number] [address] [place] [id number] Nov, [facility] [address] [id number] [address] [place] [address] [id number] Nov, Dental examination Z01.20 [facility] [address] [id number] [address] [place] [id number] Oct, Arthralgia, unspecified join t M25.50 and Essential hypertension I10 [facility] [address] [id number] [address] [place] [id number] Oct, [facility] [address] [id number] [address] [place] [id number] Sep, Bilateral otitis media, unsp ecified chronicity, unspecified otitis media type H66.93 [facility] [address] [id number] [place] [address] [id number] Sep, Dental examination Z01.20 [facility] [address] [id number] [place] [address] [id number] Aug, Dental examination V72.2 [facility] [address] [id number] [place] [id number] 14 Aug, 2015 Essential hypertension I10 a nd Muscle cramping R25.2 [facility] [address] [id number] [address] [place] [id number] 09 Aug, 2015 Tension-type headache, not i ntractable, unspecified chronicity pattern G44.209 ; Muscle cramping R25.2 and Right leg pain M79.604 [facility] [address] [place] [address] [id number] July, Dental examination Z01.20 [facility] [address] [place] [address] [id number] July, Encounter for dental examina tion and cleaning without abnormal findings Z01.20 and Dental caries K02.9 [facility] [address] [id number] [place] [address] [id number] Jun, Encounter for dental examina tion Z01.20 [facility] [address] [id number] [address] [place] [phone] Apr, [facility] [address] [id number] [address] [place] [id number] 02 Apr, 2015 Bronchitis J40 [facility] [address] [id number] [address] [place] [id number] Feb, Hyperlipemia E78.5 ; Carotid arterial disease I77.9 ; Tobacco use Z72.0 ; Hypertension I10 ; RBBB I45.10 and CVA (cerebral vascular accident) I63.9 [place] [address] [place] [id number] [address] [place] [address] Feb, Status post CVA Z86.73 ; Dys function of right eustachian tube H69.81 and Essential hypertension I10 [place] [address] [address] Dec, Encounter for immunization Z [address] [address] Oct, PVD (peripheral vascular dis ease) 443.9 and Weight loss 783.[address] [address] Oct, PVD (peripheral vascular dis ease) 443.9 and Weight loss 783.21 [place] [address] [place] [id number] [address] [place] [id number] Aug, Hyperlipidemia 272.4 ; Carot id arterial disease 447.9 ; Tobacco dependency 305.1 ; Hypertension 401.9 ; RBBB 426.4 and CVA (cerebral infarction) 434.[address] [address] Aug, [address] [address] Aug, Pseudoaneurysm following pro cedure 997.[address] [address] July, Chest pain, unspecified 786. 50 ; [...] for prophylactic vaccination and inoculation, Influenza V04.81 [facility] [address] [id number] [address] [place] [phone] Jun, [facility] [address] [id number] [address] [place] [id number] Jun, [facility] [address] [id number] [address] [place] [id number] May, [facility] [address] [id number] [address] [place] [phone] May, [facility] [address] [id number] [address] [place] [id number] May, [facility] [address] [id number] [address] [place] [phone] May, [facility] [address] [id number] [address] [place] [id number] Mar, [facility] [address] [id number] [address] [place] [phone] Mar, [facility] [address] [id number] [address] [place] [id number] Mar, [facility] [address] [id number] [address] [place] [phone] Mar, [facility] [address] [id number] [address] [place] [phone] Mar, [facility] [address] [id number] [address] [place] [address], [place] [address] Mar, [facility] [address] [id number] [address] [place] [address], [place] [address] Mar, [facility] [address] [id number] [address] [place] [address], [place] [address] Mar, [facility] [address] [id number] [address] [place] [address], [place] [address] Mar, [facility] [address] [id number] [address] [place] [address], [place] [address] Mar, [facility] [address] [id number] [address] [place] [address], [place] [address] Feb, [facility] [address] [id number] [address] [place] [address], [place] [id number] Feb, [facility] [address] [id number] [address] [place] [address], [place] [address] Feb, [facility] [address] [id number] [address] [place] [address], [place] [address] Feb, [facility] [address] [id number] [address] [place] [address], [place] [address] Feb, [facility] [address] [id number] [address] [place] [address], [place] [address] Feb, [facility] [address] [id number] [address] [place] [address], [place] [address] Feb, [facility] [address] [id number] [address] [place] [address], [place] [address] Feb, [facility] [address] [id number] [address] [place] [address], [place] [address] Jan, [facility] [address] [id number] [address] [place] [address], [place] [address] Jan, [facility] [address] [id number] [address] [place] [address], [place] [address] Nov, [facility] [address] [id number] [address] [place] [address], [place] [address] Nov, [facility] [address] [id number] [address] [place] [address], [place] [address] Sep, [facility] [address] [id number] [address] [place] [address], [place] [address] Sep, [facility] [address] [id number] [address] [place] [address], [place] [address] Sep, [facility] [address] [id number] [address] [place] [address], [place] [address] Sep, [facility] [address] [id number] [address] [place] [address], [place] [address] Aug, [facility] [address] [id number] [address] [place] [address], [place] [address] Aug, [facility] [address] [id number] [address] [place] [address], [place] [address] Aug, [facility] [address] [id number] [address] [place] [address], [place] [address] Aug, [facility] [address] [id number] [address] [place] [address], [place] [address] Aug, [facility] [address] [id number] [address] [place] [address], [place] [address] Aug, [facility] [address] [id number] [address] [place] [address], [place] [address] July, [facility] [address] [id number] [address] [place] [address], [place] [address] July, [facility] [address] [id number] [address] [place] [address], [place] [address] July, [facility] [address] [id number] [address] [place] [address], [place] [address] July, [facility] [address] [id number] [address] [place] [address], [place] [address] Jun, [facility] [address] [id number] [address] [place] [address], [place] [address] Jun, [facility] [address] [id number] [address] [place] [address], [place] [address] Apr, [facility] [address] [id number] [address] [place] [address], [place] [address] Apr, [facility] [address] [id number] [address] [place] [address], [place] [address] Apr, [facility] [address] [id number] [address] [place] [address], [place] [address] Apr, [facility] [address] [id number] [address] [place] [address], [place] [address] Apr, [facility] [address] [id number] [address] [place] [address], [place] [address] Apr, [facility] [address] [id number] [address] [place] [address], [place] [address] Mar, [facility] [address] [id number] [address] [place] [address], [place] [address] Mar, [facility] [address] [id number] [address] [place] [address], [place] [address] Mar, [facility] [address] [id number] [address] [place] [address], [place] [address] Mar, [facility] [address] [id number] [address] [place] [address], [place] [address] Mar, [facility] [address] [id number] [address] [place] [address], [place] [address] Feb, [facility] [address] [id number] [address] [place] [address], [place] [address] Feb, [facility] [address] [id number] [address] [place] [address], [place] [address] 17 Feb, 2013 [facility] [address] [id number] [address] [place] [address], [place] [address] 17 Feb, 2013 [facility] [address] [id number] [address] [place] [address], [place] [address] Feb, [facility] [address] [id number] [address] [place] [address], [place] [address] 10 Feb, 2013 [facility] [address] [id number] [address] [place] [address], [place] [id number] 06 Feb, 2013 [facility] [address] [id number] [address] [place] [address], [place] [address] Feb, [facility] [address] [id number] [address] [place] [address], [place] [address] Feb, [facility] [address] [id number] [address] [place] [address], [place] [address] Feb, [facility] [address] [id number] [address] [place] [address], [place] [address] Feb, [facility] [address] [id number] [address] [place] [address], [place] [address] Feb, [facility] [address] [id number] [address] [place] [address], [place] [address] Jan, [facility] [address] [id number] [address] [place] [address], [place] [address] Jan, [facility] [address] [id number] [address] [place] [address], [place] [address] Jan, [facility] [address] [id number] [address] [place] [address], [place] [address] Jan, [facility] [address] [id number] [address] [place] [address], [place] [address] Jan, [facility] [address] [id number] [address] [place] [address], [place] [address] Jan, [facility] [address] [id number] [address] [place] [address], [place] [address] Jan, [facility] [address] [id number] [address] [place] [address], [place] [address] Jan, [facility] [address] [id number] [address] [place] [address], [place] [address] Jan, [facility] [address] [id number] [address] [place] [address], [place] [address] Jan, [facility] [address] [id number] [address] [place] [address], [place] [address] Jan, [facility] [address] [id number] [address] [place] [address], [place] [address] Jan, [facility] [address] [id number] [address] [place] [address], [place] [address] Jan, [facility] [address] [id number] [address] [place] [address], [place] [address] Jan, [facility] [address] [id number] [address] [place] [address], [place] [address] Jan, [facility] [address] [id number] [address] [place] [address], [place] [address] Dec, [facility] [address] [id number] [address] [place] [address], [place] [address] Dec, [facility] [address] [id number] [address] [place] [address], [place] [id number] Dec, [facility] [address] [id number] [address] [place] [address], [place] [id number] Dec, [facility] [address] [id number] [address] [place] [address], [place] [id number] Oct, [facility] [address] [id number] [address] [place] [address], [place] [address] Oct, [facility] [address] [id number] [address] [place] [address], [place] [address] Oct, [facility] [address] [id number] [address] [place] [address], [place] [id number] Sep, [facility] [address] [id number] [address] [place] [address], [place] [id number] Aug, [facility] [address] [id number] [address] [place] [address], [place] [id number] July, [facility] [address] [id number] [address] [place] [address], [place] [id number] July, [facility] [address] [id number] [address] [place] [address], [place] [address] July, [facility] [address] [id number] [address] [place] [address], [place] [id number] July, [facility] [address] [id number] [address] [place] [address], [place] [id number] May, [facility] [address] [id number] [address] [place] [address], [place] [id number] May, [facility] [address] [id number] [address] [place] [address], [place] [address] Mar, [facility] [address] [id number] [address] [place] [address], [place] [id number] Mar, [facility] [address] [id number] [address] [place] [address], [place] [id number] Mar, [facility] [address] [id number] [address] [place] [address], [place] [id number] Feb, [facility] [address] [id number] [address] [place] [address], [place] [id number] Feb, [facility] [address] [id number] [address] [place] [address], [place] [id number] Feb, [facility] [address] [id number] [address] [place] [address], [place] [address] Feb, [facility] [address] [id number] [address] [place] [address], [place] [address] Feb, [facility] [address] [id number] [address] [place] [address], [place] [id number] Feb, [facility] [address] [id number] [address] [place] [address], [place] [id number] Jan, [facility] [address] [id number] [address] [place] [address], [place] [id number] Jan, [facility] [address] [id number] [address] [place] [address], [place] [id number] Jan, [facility] [address] [id number] [address] [place] [address], [place] [id number] Jan, [facility] [address] [id number] [address] [place] [address], [place] [address] Jan, [facility] [address] [address] [id number] [address] [place] [address], [place] [id number] Jan, [facility] [address] [id number] [address] [place] [address], [place] [id number] Jan, [facility] [address] [id number] [address] [place] [address], [place] [address] Jan, [facility] [address] [id number] [address] [place] [address], [place] [address] Dec, [facility] [address] [id number] [address] [place] [address], [place] [address] Dec, [facility] [address] [id number] [address] [place] [address], [place] [address] Dec, [facility] [address] [id number] [address] [place] [address], [place] [id number] Dec, [facility] [address] [id number] [address] [place] [address], [place] [id number] Oct, [facility] [address] [id number] [address] [place] [address], [place] [address] Sep, [facility] [address] [id number] [address] [place] [address], [place] [id number] 30 Sep, 2011 [facility] [address] [id number] [address] [place] [address], [place] [address] Sep, [facility] [address] [id number] [address] [place] [address], [place] [address] Sep, [facility] [address] [id number] [address] [place] [address], [place] [address] Jun, [facility] [address] [id number] [address] [place] [address], [place] [address] May, [facility] [address] [id number] [address] [place] [address], [place] [id number] 14 Apr, 2011 [facility] [address] [id number] [address] [place] [address], [place] [id number] Apr, [facility] [address] [id number] [address] [place] [address], [place] [address] Apr, [facility] [address] [id number] [address] [place] [address], [place] [address] Feb, [facility] [address] [id number] [address] [place] [address], [place] [address] Feb, [facility] [address] [id number] [address] [place] [address], [place] [address] Jan, [facility] [address] [id number] [address] [place] [address], [place] [id number] Jan, [facility] [address] [id number] [address] [place] [address], [place] [id number] Jan, [facility] [address] [id number] [address] [place] [address], [place] [address] Feb, [facility] [address] [id number] [address] [place] [address], [place] [address] Feb, [facility] [address] [id number] [address] [place] [address], [place] [id number] 30 Feb, 2010 [facility] [address] [id number] [address] [place] [address], [place] [id number] 30 Feb, 2010 [facility] [address] [id number] [address] [place] [address], [place] [id number] 27 Feb, 2010 [facility] [address] [id number] [address] [place] [address], [place] [id number] 23 Feb, 2010 [facility] [address] [id number] [address] [place] [address], [place] [id number] 20 Feb, 2010 [facility] [address] [id number] [address] [place] [address], [place] [id number] 18 Feb, 2010 [facility] [address] [id number] [address] [place] [address], [place] [id number] 18 Feb, 2010 [facility] [address] [id number] [address] [place] [address], [place] [id number] 06 Feb, 2010 [facility] [address] [id number] [address] [place] [address], [place] [address] Jan, [facility] [address] [id number] [address] [place] [address], [place] [id number] 24 Dec, 2009 [facility] [address] [id number] [address] [place] [address], [place] [id number] 14 Nov, 2009 [facility] [address] [id number] [address] [place] [address], [place] [id number] 18 Mar, 2009 [facility] [address] [id number] [address] [place] [address], [place] [address] Jan, [facility] [address] [id number] [address] [place] [address], [place] [id number] 15 Dec, 2008 [facility] [address] [id number] [address] [place] [address], [place] [id number] 15 Dec, 2008 [facility] [address] [id number] [address] [place] [id number] Sep, [facility] [address] [facility] [id number] [address] [place] [id number] Jun, [facility] [address] [facility] [id number] [address] [place] [id number] Mar, [facility] [address] [facility] [id number] [address] [place] [id number] Jan, IMMUNIZATIONS No Known Immunizations SOCIAL HISTORY [...] Heart cath per Dr. Burton at [facility]- hypotension 08/08 Hospitalization History Hematochezia-[facility] 07/27/16
--- OUTSIDE RECORDS SUMMARY | 2019-08-06 07:57 | XMS REPORT ---
Author Author Lavern HUGHES [facility] Address [address] [place] [address] Care Team Providers Care Electric Cell Tender Name Role Phone DAY HUGHES Unavailable PROBLEMS Type Condition ICD9-CM Code STV80-KA Code Onset Dates Condition S tatus SNOMED Code Problem Cataracts, bilateral H26.9 Active 13987005 Problem CVA (cerebral vascular accident) I63.9 Active 301229836 Problem Hyperlipemia E78.5 Active 5155983 4 Problem Lymphocytosis D72.820 Active 011269 09 Problem Peripheral vascular disease, unspecified I73.9 Active 229980329 Problem Iron deficiency anemia due to chronic blood loss D 50.0 Active 913659834 Problem Thyroid nodule E04.1 Active 56950 5005 Problem Dysfunction of right eustachian tube H69.81 Active 31342740 Problem Post-surgical 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 A ctive 01086608 Problem 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 2755 29118 Problem Diverticulitis of intestine without perforation or abscess without bleeding, unspecified part of intestinal tract K57.92 Active 406205577 Problem Essential hypertension I10 Active 51970980 Problem Lung nodule, solitary R91.1 Active 776980470 Problem 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 of 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 Active [id number] ALLERGIES No Information ENCOUNTERS Encounter Location Date Diagnosis [facility] [address] [facility] [id number] [address] [place] [address] Oct, Seborrheic keratosis L82.1 [facility] [address] [facility] [id number] [address] [place] [address] Oct, [facility] [address] [facility] [id number] [address] [place] [address] Sep, [facility] [address] [facility] [id number] [address] [place] [address] Sep, Other fatigue R53.83 ; Aleida diasis B37.9 and Arthralgia, unspecified joint M25.50 [facility] [address] [facility] [id number] [address] [place] [address] Jun, Post-surgical 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 [facility] [address] [facility] [id number] [address] [place] [address] May, Post-surgical 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 and Peripheral vascular disease, unspecified I73.9 [facility] [address] [facility] [id number] [address] [place] [address] Mar, [facility] [id number] [place] [address] Mar, Post-surgical 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 [facility] [id number] [place] [address] Jan, Nodular thyroid disease E04. 1 ; Lung mass R91.8 ; Iron deficiency anemia due to chronic blood loss D50.0 ; Essential hypertension I10 and 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 of 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 [facility] [address] [id number] [address] [place] [address] [id number] Dec, Dental examination Z01.20 [facility] [address] [id number] [address] [place] [address] Dec, Thyroid nodule E04.1 [facility] [address] [id number] [address] [place] [address] Oct, Lung nodule, solitary R91.1 [facility] [address] [facility] [facility] [id number] [address] [place] [address] Oct, [facility] [id number] [place] [address] Oct, [facility] [address] [id number] [address] [place] [address] Oct, [place] [address] [place] [id number] [address] [place] [address] Sep, [place] [address] [address] Aug, [place] [address] [id number] [place] [address] July, Arthralgia, unspecified join t M25.50 ; Essential hypertension I10 ; Seborrheic keratosis L82.1 and LLQ abdominal pain R10.32 [place] [address] [address] Feb, Arthralgia, unspecified join t M25.50 [place] [address] [id number] [place] [address] Feb, Arthralgia, unspecified join t M25.50 [place] [address] [address] Dec, Arthralgia, unspecified join t M25.50 [place] [address] [address] Dec, Right flank pain R10.9 ; Lef t foot pain M79.672 ; Arthralgia, unspecified joint M25.50 and Encounter for immunization Z23 [place] [address] [address] Dec, CVA (cerebral vascular accid ent) I63.9 [place] [address] [address] Dec, RUQ abdominal pain R10.11 [place] [address] [address] Dec, Right lower quadrant pain R1 0.31 ; Diverticulitis of intestine without perforation or abscess without bleeding, unspecified part of intestinal tract K57.92 and Internal hemorrhoids K64.8 [place] [address] [address] Nov, [facility] [address] [facility] [facility] [id number] [address] [place] [address] Oct, [facility] [address] [facility] [facility] [id number] [address] [place] [address] Aug, Iron deficiency anemia due t o chronic blood loss D50.0 [facility] [address] [facility] [facility] [id number] [address] [place] [address] Aug, Peripheral vascular disease, unspecified I73.9 and Colitis K52.9 [place] [address] [facility] [id number] [address] [place] [address] Aug, H/O: GI bleed Z87.19 [place] [address] [facility] [id number] [address] [place] [address] Aug, CVA (cerebral vascular accid ent) I63.9 [place] [address] [facility] [id number] [address] [place] [address] Aug, RUQ abdominal pain R10.11 [facility] [address] [facility] [id number] [address] [place] [address] July, RUQ abdominal pain R10.11 an d Lymphocytosis D72.820 [place] [address] [facility] [id number] [address] [place] [address] July, [facility] [address] [facility] [facility] [id number] [address] [place] [address] July, Colitis K52.9 [facility] [id number] [place] [id number] July, [facility] [address] [facility] [facility] [id number] [address] [place] [address] Jun, Right flank pain R10.9 [facility] [address] [facility] [facility] [id number] [address] [place] [address] May, Urinary tract infection with out hematuria, site unspecified N39.0 and Right flank pain R10.9 [facility] [address] [id number] [address] [place] [address] Feb, Acute non-recurrent maxillar y sinusitis J01.00 and Need for hepatitis C screening test Z11.[address] [facility] [address] [id number] [address] [place] [id number] Jan, Dental examination Z01.[address] [facility] [address] [id number] [place] [address] [id number] Dec, Dental examination Z01.[address] [facility] [address] [id number] [place] [address] [id number] Dec, Dental examination Z01.20 [facility] [address] [id number] [address] [place] [address] Dec, [facility] [address] [id number] [address] [place] [address] Dec, [facility] [address] [id number] [place] [address] [id number] Dec, Dental examination Z01.20 [facility] [address] [id number] [address] [place] [address] Nov, [facility] [address] [id number] [place] [address] [id number] Nov, Dental examination Z01.20 [facility] [address] [id number] [address] [place] [address] Oct, Arthralgia, unspecified join t M25.50 and Essential hypertension I10 [facility] [address] [id number] [address] [place] [address] Oct, [facility] [address] [id number] [address] [place] [address] Sep, Bilateral otitis media, unsp ecified chronicity, unspecified otitis media type H66.[address] [facility] [address] [id number] [address] [place] [address] [id number] Sep, Dental examination Z01.[address] [facility] [address] [id number] [address] [place] [address] [id number] Aug, 2015 Dental examination V72.2 [facility] [address] [facility] [facility] [id number] [address] [place] [address] 14 Aug, 2015 Essential hypertension I10 a nd Muscle cramping R25.2 [facility] [address] [facility] [facility] [id number] [place] [address] 09 Aug, 2015 Tension-type headache, not i ntractable, unspecified chronicity pattern G44.209 ; Muscle cramping R25.2 and Right leg pain M79.[address] [facility] [address] [id number] [address] [place] [address] [id number] July, Dental examination Z01.[address] [facility] [address] [id number] [place] [address] [id number] July, Encounter for dental examina tion and cleaning without abnormal findings Z01.20 and Dental caries K02.[address] [facility] [address] [id number] [place] [address] [id number] Jun, Encounter for dental examina tion Z01.20 [facility] [address] [id number] [address] [place] [address] Apr, [facility] [address] [id number] [address] [place] [address] 02 Apr, 2015 Bronchitis J40 [facility] [address] [id number] [address] [place] [address] 09 Feb, 2015 Hyperlipemia E78.5 ; Carotid arterial disease I77.9 ; Tobacco use Z72.0 ; Hypertension I10 ; RBBB I45.10 and CVA (cerebral vascular accident) I63.9 [facility] [address] [facility] [id number] [address] [place] [address] Feb, Status post CVA Z86.73 ; Dys function of right eustachian tube H69.81 and Essential hypertension I10 [place] [address] [address] Dec, Encounter for immunization Z [address] [address] Oct, PVD (peripheral vascular dis ease) 443.9 and Weight loss 783.[address] [address] Oct, PVD (peripheral vascular dis ease) 443.9 and Weight loss 783.[address] [address] Aug, Hyperlipidemia 272.4 ; Carot id arterial disease 447.9 ; Tobacco dependency 305.1 ; Hypertension 401.9 ; RBBB 426.4 and CVA (cerebral infarction) 434.[address] [address] Aug, [address] [address] Aug, Pseudoaneurysm following pro cedure 997.[address] [address] July, Chest pain, unspecified 786. 50 ; [...] for prophylactic vaccination and inoculation, Influenza V04.81 [facility] [address] [id number] [address] [place] [address] Jun, [facility] [address] [id number] [address] [place] [address] Jun, [facility] [address] [id number] [address] [place] [address] May, [facility] [address] [id number] [address] [place] [address] May, [facility] [address] [id number] [address] [place] [address] May, [facility] [address] [id number] [address] [place] [address] May, [facility] [address] [id number] [address] [place] [address] Mar, [facility] [address] [id number] [address] [place] [address] Mar, [facility] [address] [id number] [address] [place] [address] Mar, [facility] [address] [id number] [address] [place] [address] Mar, [facility] [address] [id number] [address] [place] [address] Mar, [facility] [address] [id number] [address] [place] [address] Mar, [facility] [address] [facility] [id number] [address] [place] [address] Mar, [facility] [address] [facility] [facility] [id number] [address] [place] [phone] Mar, [facility] [address] [id number] [address] [place] [address], [place] [address] Mar, [facility] [address] [id number] [address] [place] [address], [place] [address] Mar, [facility] [address] [id number] [address] [place] [address], [place] [address] Feb, [facility] [address] [id number] [address] [place] [address], [place] [address] Feb, [facility] [address] [id number] [address] [place] [address], [place] [address] Feb, [facility] [address] [id number] [address] [place] [address], [place] [address] Feb, [facility] [address] [id number] [address] [place] [address], [place] [address] Feb, [facility] [address] [id number] [address] [place] [address], [place] [address] Feb, [facility] [address] [id number] [address] [place] [address], [place] [address] Feb, [facility] [address] [id number] [address] [place] [address], [place] [address] Feb, [facility] [address] [id number] [address] [place] [address], [place] [address] Jan, [facility] [address] [id number] [address] [place] [address], [place] [address] Jan, [facility] [address] [id number] [address] [place] [address], [place] [address] Nov, [facility] [address] [id number] [address] [place] [address], [place] [address] Nov, [facility] [address] [id number] [address] [place] [address], [place] [address] Sep, [facility] [address] [id number] [address] [place] [address], [place] [address] Sep, [facility] [address] [id number] [address] [place] [address], [place] [address] Sep, [facility] [address] [id number] [address] [place] [address], [place] [address] Sep, [facility] [address] [id number] [address] [place] [address], [place] [address] Aug, [facility] [address] [id number] [address] [place] [address], [place] [address] Aug, [facility] [address] [id number] [address] [place] [address], [place] [address] Aug, [facility] [address] [id number] [address] [place] [address], [place] [address] Aug, [facility] [address] [id number] [address] [place] [address], [place] [address] Aug, [facility] [address] [id number] [address] [place] [address], [place] [address] Aug, [facility] [address] [id number] [address] [place] [address], [place] [address] July, [facility] [address] [id number] [address] [place] [address], [place] [address] July, [facility] [address] [id number] [address] [place] [address], [place] [address] July, [facility] [address] [id number] [address] [place] [address], [place] [address] July, [facility] [address] [id number] [address] [place] [address], [place] [address] Jun, [facility] [address] [id number] [address] [place] [address], [place] [address] Jun, [facility] [address] [id number] [address] [place] [address], [place] [address] Apr, [facility] [address] [id number] [address] [place] [address], [place] [address] Apr, [facility] [address] [id number] [address] [place] [address], [place] [address] Apr, [facility] [address] [id number] [address] [place] [address], [place] [address] Apr, [facility] [address] [id number] [address] [place] [address], [place] [address] Apr, [facility] [address] [id number] [address] [place] [address], [place] [address] Apr, [facility] [address] [id number] [address] [place] [address], [place] [address] Mar, [facility] [address] [id number] [address] [place] [address], [place] [address] Mar, [facility] [address] [id number] [address] [place] [address], [place] [address] Mar, [facility] [address] [id number] [address] [place] [address], [place] [address] Mar, [facility] [address] [id number] [address] [place] [address], [place] [address] Mar, [facility] [address] [id number] [address] [place] [address], [place] [address] Feb, [facility] [address] [id number] [address] [place] [address], [place] [address] 31 Feb, 2013 [facility] [address] [id number] [address] [place] [address], [place] [address] Feb, [facility] [address] [id number] [address] [place] [address], [place] [address] Feb, [facility] [address] [id number] [address] [place] [address], [place] [address] Feb, [facility] [address] [id number] [address] [place] [address], [place] [address] Feb, [facility] [address] [id number] [address] [place] [address], [place] [address] Feb, [facility] [address] [id number] [address] [place] [address], [place] [address] Feb, [facility] [address] [id number] [address] [place] [address], [place] [address] Feb, [facility] [address] [id number] [address] [place] [address], [place] [address] Feb, [facility] [address] [id number] [address] [place] [address], [place] [address] Feb, [facility] [address] [id number] [address] [place] [address], [place] [address] Feb, [facility] [address] [id number] [address] [place] [address], [place] [address] Jan, [facility] [address] [id number] [address] [place] [address], [place] [address] Jan, [facility] [address] [id number] [address] [place] [address], [place] [address] Jan, [facility] [address] [id number] [address] [place] [address], [place] [address] Jan, [facility] [address] [id number] [address] [place] [address], [place] [address] Jan, [facility] [address] [id number] [address] [place] [address] Jan, [facility] [address] [id number] [address] [place] [address], [place] [address] Jan, [facility] [address] [id number] [address] [place] [address], [place] [address] Jan, [facility] [address] [id number] [address] [place] [address], [place] [address] Jan, [facility] [address] [id number] [address] [place] [address], [place] [address] Jan, [facility] [address] [id number] [address] [place] [address], [place] [address] Jan, [facility] [address] [id number] [address] [place] [address], [place] [address] Jan, [facility] [address] [id number] [address] [place] [address], [place] [address] Jan, [facility] [address] [id number] [address] [place] [address], [place] [address] Jan, [facility] [address] [id number] [address] [place] [address], [place] [address] Jan, [facility] [address] [id number] [address] [place] [address], [place] [address] Dec, [facility] [address] [id number] [address] [place] [address], [place] [address] Dec, [facility] [address] [id number] [address] [place] [address], [place] [address] Dec, [facility] [address] [id number] [address] [place] [address], [place] [address] Dec, [facility] [address] [id number] [address] [place] [address], [place] [address] Oct, [facility] [address] [id number] [address] [place] [address], [place] [address] Oct, [facility] [address] [id number] [address] [place] [address], [place] [address] Oct, [facility] [address] [id number] [address] [place] [address], [place] [address] Sep, [facility] [address] [id number] [address] [place] [address], [place] [address] Aug, [facility] [address] [id number] [address] [place] [address], [place] [address] July, [facility] [address] [id number] [address] [place] [address], [place] [address] July, [facility] [address] [id number] [address] [place] [address], [place] [address] July, [facility] [address] [id number] [address] [place] [address], [place] [address] July, [facility] [address] [id number] [address] [place] [address], [place] [address] May, [facility] [address] [id number] [address] [place] [address], [place] [address] May, [facility] [address] [id number] [address] [place] [address], [place] [address] Mar, [facility] [address] [id number] [address] [place] [address], [place] [address] Mar, [facility] [address] [id number] [address] [place] [address], [place] [address] Mar, [facility] [address] [id number] [address] [place] [address], [place] [address] Feb, [facility] [address] [id number] [address] [place] [address], [place] [address] Feb, [facility] [address] [id number] [address] [place] [address], [place] [address] Feb, [facility] [address] [id number] [address] [place] [address], [place] [address] Feb, [facility] [address] [id number] [address] [place] [address], [place] [address] Feb, [facility] [address] [id number] [address] [place] [address], [place] [address] Feb, [facility] [address] [id number] [address] [place] [address], [place] [address] Jan, [facility] [address] [id number] [address] [place] [address], [place] [address] Jan, [facility] [address] [id number] [address] [place] [address], [place] [address] Jan, [facility] [address] [id number] [address] [place] [address], [place] [address] Jan, [facility] [address] [id number] [address] [place] [address], [place] [address] Jan, [facility] [address] [id number] [address] [place] [address], [place] [address] Jan, [facility] [address] [id number] [address] [place] [address], [place] [address] Jan, [facility] [address] [id number] [address] [place] [address], [place] [address] Jan, [facility] [address] [id number] [address] [place] [address], [place] [address] Dec, [facility] [address] [id number] [address] [place] [address], [place] [address] Dec, [facility] [address] [id number] [address] [place] [address], [place] [address] Dec, [facility] [address] [id number] [address] [place] [address], [place] [address] Dec, [facility] [address] [id number] [address] [place] [address], [place] [address] Oct, [facility] [address] [id number] [address] [place] [address], [place] [address] Sep, [facility] [address] [id number] [address] [place] [address], [place] [address] Sep, [facility] [address] [id number] [address] [place] [address], [place] [address] Sep, [facility] [address] [id number] [address] [place] [address], [place] [address] Sep, [facility] [address] [id number] [address] [place] [address], [place] [address] 10 Jun, 2011 [facility] [address] [id number] [address] [place] [address], [place] [address] May, [facility] [address] [id number] [address] [place] [address], [place] [address] 14 Apr, 2011 [facility] [address] [id number] [address] [place] [address], [place] [address] 09 Apr, 2011 [facility] [address] [id number] [address] [place] [address], [place] [address] Apr, [facility] [address] [id number] [address] [place] [address], [place] [address] Feb, [facility] [address] [id number] [address] [place] [address], [place] [address] Feb, [facility] [address] [id number] [address] [place] [address], [place] [address] Jan, [facility] [address] [id number] [address] [place] [address], [place] [address] Jan, [facility] [address] [id number] [address] [place] [address], [place] [address] Jan, [facility] [address] [id number] [address] [place] [address], [place] [address] 31 Feb, [address] [facility] [address] [id number] [address] [place] [address], [place] [address] 30 Feb, [address] [facility] [address] [id number] [address] [place] [address], [place] [address] 30 Feb, 2010 [facility] [address] [id number] [address] [place] [address], [place] [address] 30 Feb, 2010 [facility] [address] [id number] [address] [place] [address], [place] [address] 27 Feb, 2010 [facility] [address] [id number] [address] [place] [address], [place] [address] Feb, [facility] [address] [id number] [address] [place] [phone] Feb, [facility] [place] [address] [id number] [address] [place] [phone] Feb, [facility] [place] [address] [id number] [address] [place] [phone] Feb, [facility] [place] [address] [id number] [address] [place] [phone] Feb, [facility] [address] [id number] [address] [place] [phone] Jan, [facility] [place] [address] [id number] [address] [place] [phone] Dec, [facility] [address] [id number] [address] [place] [id number] Nov, [facility] [address] [id number] [address] [place] [id number] Mar, [facility] [address] [id number] [address] [place] [id number] Jan, [facility] [address] [id number] [address] [place] [id number] 15 Dec, 2008 [facility] [address] [id number] [address] [place] [phone] Dec, [facility] [address] [id number] [address] [place] [phone] Sep, [facility] [address] [id number] [address] [place] [phone] Jun, [facility] [address] [id number] [address] [place] [phone] Mar, [facility] [address] [id number] [address] [place] [phone] Jan, IMMUNIZATIONS No Known Immunizations SOCIAL HISTORY [...] Heart cath per Dr. Burton at [facility]- hypotension 08/08 Hospitalization History Hematochezia-[facility] 07/27/16
--- OUTSIDE RECORDS SUMMARY | 2019-08-06 07:57 | XMS REPORT ---
Author Author Lavern HUGHES [facility] Address [address] [place] [address] Care Team Providers Care Sheet Rock Hanger Name Role Phone DAY HUGHES Unavailable PROBLEMS Type Condition ICD9-CM Code MYD32-FX Code Onset Dates Condition S tatus SNOMED Code Problem Cataracts, bilateral H26.9 Active 31764940 Problem CVA (cerebral vascular accident) I63.9 Active 910964646 Problem Hyperlipemia E78.5 Active 7123183 4 Problem Lymphocytosis D72.820 Active 350234 09 Problem Peripheral vascular disease, unspecified I73.9 Active 053469495 Problem Iron deficiency anemia due to chronic blood loss D 50.0 Active 855314685 Problem Thyroid nodule E04.1 Active 40274 5005 Problem Dysfunction of right eustachian tube H69.81 Active 27687440 Problem Post-surgical 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 A ctive 15469075 Problem 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 2755 24209 Problem Diverticulitis of intestine without perforation or abscess without bleeding, unspecified part of intestinal tract K57.92 Active 295748747 Problem Essential hypertension I10 Active 83518760 Problem Lung nodule, solitary R91.1 Active 541778713 Problem 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 of 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 Active [id number] ALLERGIES No Information ENCOUNTERS Encounter Location Date Diagnosis [facility] [address] [facility] [id number] [address] [place] [address] Oct, [facility] [address] [facility] [id number] [address] [place] [address] Oct, Arthralgia, unspecified join t M25.50 [facility] [address] [facility] [id number] [address] [place] [address] Oct, Seborrheic keratosis L82.1 [place] [address] [place] [address] Oct, [facility] [address] [address] Sep, [facility] [address] [place] [id number] [address] [place] [address] Sep, Other fatigue R53.83 ; Aleida diasis B37.9 and Arthralgia, unspecified joint M25.50 [facility] [address] [place] [id number] [address] [place] [address] Jun, Post-surgical 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 [place] [address] [address] May, Post-surgical 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 and Peripheral vascular disease, unspecified I73.9 [place] [address] [address] Mar, [facility] [address] [address] Mar, Post-surgical 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 [place] [address] [place] [id number] [address] [place] [address] Jan, Nodular thyroid disease E04. 1 ; Lung mass R91.8 ; Iron deficiency anemia due to chronic blood loss D50.0 ; Essential hypertension I10 and 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 of 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 [facility] [address] [place] [id number] [address] [place] [address] [id number] Dec, Dental examination Z01.20 [place] [address] [place] [id number] [address] [place] [address] Dec, Thyroid nodule E04.1 [facility] [address] [place] [id number] [address] [place] [address] Oct, Lung nodule, solitary R91.1 [place] [address] [place] [id number] [address] [place] [address] Oct, [facility] [address] [address] Oct, [facility] [address] [address] Oct, [facility] [address] [address] Sep, [facility] [address] [address] Aug, [facility] [address] [address] July, Arthralgia, unspecified join t M25.50 ; Essential hypertension I10 ; Seborrheic keratosis L82.1 and LLQ abdominal pain R10.32 [place] [address] [address] Feb, Arthralgia, unspecified join t M25.50 [place] [address] [address] Feb, Arthralgia, unspecified join t M25.50 [place] [address] [address] Dec, Arthralgia, unspecified join t M25.50 [place] [address] [address] Dec, Right flank pain R10.9 ; Lef t foot pain M79.672 ; Arthralgia, unspecified joint M25.50 and Encounter for immunization Z23 [place] [address] [address] Dec, CVA (cerebral vascular accid ent) I63.9 [place] [address] [address] Dec, RUQ abdominal pain R10.11 [place] [address] [place] [address] Dec, Right lower quadrant pain R1 0.31 ; Diverticulitis of intestine without perforation or abscess without bleeding, unspecified part of intestinal tract K57.92 and Internal hemorrhoids K64.8 [place] [address] [address] Nov, [place] [address] [address] Oct, [place] [address] [address] Aug, Iron deficiency anemia due t o chronic blood loss D50.0 [place] [address] [address] Aug, Peripheral vascular disease, unspecified I73.9 and Colitis K52.9 [place] [address] [address] Aug, H/O: GI bleed Z87.19 [place] [address] [place] [id number] [address] [place] [address] 07 Aug, 2016 CVA (cerebral vascular accid ent) I63.9 [place] [address] [place] [id number] [address] [place] [address] Aug, RUQ abdominal pain R10.11 [place] [address] [place] [id number] [address] [place] [address] July, RUQ abdominal pain R10.11 an d Lymphocytosis D72.820 [place] [address] [place] [id number] [address] [place] [address] July, [place] [address] [address] July, Colitis K52.9 [facility] [address] [place] [id number] [place] [id number] July, [place] [address] [place] [id number] [address] [place] [address] Jun, Right flank pain R10.9 [facility] [address] [id number] [address] [place] [address] May, Urinary tract infection with out hematuria, site unspecified N39.0 and Right flank pain R10.9 [facility] [address] [id number] [address] [place] [address] Feb, Acute non-recurrent maxillar y sinusitis J01.00 and Need for hepatitis C screening test Z11.59 [facility] [address] [id number] [address] [place] [address] [id number] Jan, Dental examination Z01.20 [facility] [address] [id number] [address] [place] [address] [id number] Dec, Dental examination Z01.20 [facility] [address] [id number] [address] [place] [address] [id number] Dec, Dental examination Z01.20 [facility] [address] [id number] [address] [place] [address] Dec, [facility] [address] [id number] [address] [place] [address] Dec, [facility] [address] [id number] [address] [place] [address] [id number] Dec, Dental examination Z01.20 [facility] [address] [id number] [address] [place] [address] Nov, [facility] [address] [id number] [address] [place] [address] [id number] Nov, Dental examination Z01.20 [facility] [address] [id number] [address] [place] [address] Oct, Arthralgia, unspecified join t M25.50 and Essential hypertension I10 [facility] [address] [id number] [address] [place] [address] Oct, [facility] [address] [place] [id number] [address] [place] [address] Sep, Bilateral otitis media, unsp ecified chronicity, unspecified otitis media type H66.93 [facility] [address] [id number] [address] [place] [address] [id number] Sep, Dental examination Z01.20 [facility] [id number] [place] [address] [id number] Aug, Dental examination V72.2 [facility] [address] [address] 14 Aug, 2015 Essential hypertension I10 a nd Muscle cramping R25.2 [facility] [address] [place] [id number] [address] [place] [address] 09 Aug, 2015 Tension-type headache, not i ntractable, unspecified chronicity pattern G44.209 ; Muscle cramping R25.2 and Right leg pain M79.604 [facility] [address] [place] [address] [id number] July, Dental examination Z01.20 [facility] [address] [place] [id number] [place] [address] [id number] July, Encounter for dental examina tion and cleaning without abnormal findings Z01.20 and Dental caries K02.9 [facility] [address] [place] [id number] [place] [address] [id number] Jun, Encounter for dental examina tion Z01.20 [facility] [address] [place] [id number] [address] [place] [address] Apr, [facility] [address] [place] [id number] [address] [place] [address] Apr, Bronchitis J40 [facility] [address] [place] [id number] [address] [place] [address] 09 Feb, 2015 Hyperlipemia E78.5 ; Carotid arterial disease I77.9 ; Tobacco use Z72.0 ; Hypertension I10 ; RBBB I45.10 and CVA (cerebral vascular accident) I63.[address] [address] Feb, Status post CVA Z86.73 ; Dys function of right eustachian tube H69.81 and Essential hypertension I10 [address] [address] Dec, Encounter for immunization Z [address] [address] Oct, PVD (peripheral vascular dis ease) 443.9 and Weight loss 783.[address] [address] Oct, PVD (peripheral vascular dis ease) 443.9 and Weight loss 783.[address] [address] Aug, Hyperlipidemia 272.4 ; Carot id arterial disease 447.9 ; Tobacco dependency 305.1 ; Hypertension 401.9 ; RBBB 426.4 and CVA (cerebral infarction) 434.[address] [address] Aug, [address] [address] Aug, Pseudoaneurysm following pro cedure 997.[address] [address] July, Chest pain, unspecified 786. 50 ; [...] Influenza V04.81 [facility] [address] [id number] [address] [place] [address] 14 Jun, 2014 [facility] [address] [id number] [address] [place] [address] Jun, [facility] [address] [facility] [id number] [address] [place] [address] May, [facility] [address] [id number] [address] [place] [address] May, [facility] [address] [id number] [address] [place] [address] May, [facility] [address] [id number] [address] [place] [address] May, [facility] [address] [facility] [id number] [address] [place] [address] Mar, [facility] [address] [id number] [address] [place] [id number] Mar, [facility] [address] [id number] [address] [place] [address] Mar, [facility] [address] [id number] [address] [place] [address] Mar, [facility] [address] [id number] [address] [place] [address] Mar, [facility] [address] [id number] [address] [place] [address] Mar, [facility] [address] [id number] [address] [place] [address], [place] [address] Mar, [facility] [address] [id number] [address] [place] [address], [place] [address] Mar, [facility] [address] [id number] [address] [place] [address], [place] [address] Mar, [facility] [address] [id number] [address] [place] [address], [place] [address] Mar, [facility] [address] [id number] [address] [place] [address], [place] [address] Feb, [facility] [address] [id number] [address] [place] [address], [place] [address] Feb, [facility] [address] [id number] [address] [place] [address], [place] [address] Feb, [facility] [address] [id number] [address] [place] [address], [place] [address] Feb, [facility] [address] [id number] [address] [place] [address], [place] [address] Feb, [facility] [address] [id number] [address] [place] [address], [place] [address] Feb, [facility] [address] [id number] [address] [place] [address], [place] [address] Feb, [facility] [address] [id number] [address] [place] [address], [place] [address] Feb, [facility] [address] [id number] [address] [place] [address], [place] [address] Jan, [facility] [address] [id number] [address] [place] [address], [place] [address] Jan, [facility] [address] [id number] [address] [place] [address], [place] [address] Nov, [facility] [address] [id number] [address] [place] [address], [place] [address] Nov, [facility] [address] [id number] [address] [place] [address], [place] [address] Sep, [facility] [address] [id number] [address] [place] [address], [place] [address] Sep, [facility] [address] [id number] [address] [place] [address], [place] [address] Sep, [facility] [address] [id number] [address] [place] [address], [place] [address] Sep, [facility] [address] [id number] [address] [place] [address], [place] [address] Aug, [facility] [address] [id number] [address] [place] [address], [place] [address] Aug, [facility] [address] [id number] [address] [place] [address], [place] [address] Aug, [facility] [address] [id number] [address] [place] [address], [place] [address] Aug, [facility] [address] [id number] [address] [place] [address], [place] [address] Aug, [facility] [address] [id number] [address] [place] [address], [place] [address] Aug, [facility] [address] [id number] [address] [place] [address], [place] [address] July, [facility] [address] [id number] [address] [place] [address], [place] [address] July, [facility] [address] [id number] [address] [place] [address], [place] [address] July, [facility] [address] [id number] [address] [place] [address], [place] [address] July, [facility] [address] [id number] [address] [place] [address], [place] [address] Jun, [facility] [address] [id number] [address] [place] [address], [place] [address] Jun, [facility] [address] [id number] [address] [place] [address], [place] [address] Apr, [facility] [address] [id number] [address] [place] [address], [place] [address] Apr, [facility] [address] [id number] [address] [place] [address], [place] [address] Apr, [facility] [address] [id number] [address] [place] [address], [place] [address] Apr, [facility] [address] [id number] [address] [place] [address], [place] [address] Apr, [facility] [address] [id number] [address] [place] [address], [place] [address] Apr, [facility] [address] [id number] [address] [place] [address], [place] [address] Mar, [facility] [address] [id number] [address] [place] [address], [place] [address] Mar, [facility] [address] [id number] [address] [place] [address], [place] [address] Mar, [facility] [address] [id number] [address] [place] [address], [place] [address] Mar, [facility] [address] [id number] [address] [place] [address], [place] [address] Mar, [facility] [address] [id number] [address] [place] [address], [place] [address] Feb, [facility] [address] [id number] [address] [place] [address], [place] [address] Feb, [facility] [address] [id number] [address] [place] [address], [place] [address] Feb, [facility] [address] [id number] [address] [place] [address], [place] [address] 17 Feb, 2013 [facility] [address] [id number] [address] [place] [address], [place] [address] Feb, [facility] [address] [id number] [address] [place] [address], [place] [address] Feb, [facility] [address] [id number] [address] [place] [address], [place] [address] 06 Feb, 2013 [facility] [address] [id number] [address] [place] [address], [place] [address] Feb, [facility] [address] [id number] [address] [place] [address], [place] [address] Feb, [facility] [address] [id number] [address] [place] [address], [place] [address] Feb, [facility] [address] [id number] [address] [place] [address], [place] [address] Feb, [facility] [address] [id number] [address] [place] [address], [place] [address] Feb, [facility] [address] [id number] [address] [place] [address], [place] [address] Jan, [facility] [address] [id number] [address] [place] [address], [place] [address] Jan, [facility] [address] [id number] [address] [place] [address], [place] [address] Jan, [facility] [address] [id number] [address] [place] [address], [place] [address] Jan, [facility] [address] [id number] [address] [place] [address], [place] [address] Jan, [facility] [address] [id number] [address] [place] [address], [place] [address] Jan, [facility] [address] [id number] [address] [place] [address], [place] [address] Jan, [facility] [address] [id number] [address] [place] [address], [place] [address] Jan, [facility] [address] [id number] [address] [place] [address], [place] [address] Jan, [facility] [address] [id number] [address] [place] [address], [place] [address] Jan, [facility] [address] [id number] [address] [place] [address], [place] [address] Jan, [facility] [address] [id number] [address] [place] [address], [place] [address] Jan, [facility] [address] [id number] [address] [place] [address], [place] [address] Jan, [facility] [address] [id number] [address] [place] [address], [place] [address] Jan, [facility] [address] [id number] [address] [place] [address], [place] [address] Jan, [facility] [address] [id number] [address] [place] [address], [place] [address] Dec, [facility] [address] [id number] [address] [place] [address], [place] [address] Dec, [facility] [address] [id number] [address] [place] [address], [place] [address] Dec, [facility] [address] [id number] [address] [place] [address], [place] [address] Dec, [facility] [address] [id number] [address] [place] [address], [place] [address] Oct, [facility] [address] [id number] [address] [place] [address], [place] [address] Oct, [facility] [address] [id number] [address] [place] [address], [place] [address] Oct, [facility] [address] [id number] [address] [place] [address], [place] [address] Sep, [facility] [address] [id number] [address] [place] [address], [place] [address] Aug, [facility] [address] [id number] [address] [place] [address], [place] [address] July, [facility] [address] [id number] [address] [place] [address], [place] [address] July, [facility] [address] [id number] [address] [place] [address], [place] [address] July, [facility] [address] [id number] [address] [place] [address], [place] [address] July, [facility] [address] [id number] [address] [place] [address], [place] [address] May, [facility] [address] [id number] [address] [place] [address], [place] [address] May, [facility] [address] [id number] [address] [place] [address], [place] [address] Mar, [facility] [address] [id number] [address] [place] [address], [place] [address] Mar, [facility] [address] [id number] [address] [place] [address], [place] [address] Mar, [facility] [address] [id number] [address] [place] [address], [place] [address] Feb, [facility] [address] [id number] [address] [place] [address], [place] [address] Feb, [facility] [address] [id number] [address] [place] [address], [place] [address] Feb, [facility] [address] [id number] [address] [place] [address], [place] [address] Feb, [facility] [address] [id number] [address] [place] [address], [place] [address] Feb, [facility] [address] [id number] [address] [place] [address], [place] [address] Feb, [facility] [address] [id number] [address] [place] [address], [place] [address] Jan, [facility] [address] [id number] [address] [place] [address], [place] [address] Jan, [facility] [address] [id number] [address] [place] [address], [place] [address] Jan, [facility] [address] [id number] [address] [place] [address], [place] [address] Jan, [facility] [address] [id number] [address] [place] [address], [place] [address] Jan, [facility] [address] [id number] [address] [place] [address], [place] [address] Jan, [facility] [address] [id number] [address] [place] [address], [place] [address] Jan, [facility] [address] [id number] [address] [place] [address], [place] [address] Jan, [facility] [address] [id number] [address] [place] [address], [place] [address] Dec, [facility] [address] [id number] [address] [place] [address], [place] [address] Dec, [facility] [address] [id number] [address] [place] [address], [place] [address] Dec, [facility] [address] [id number] [address] [place] [address], [place] [address] Dec, [facility] [address] [id number] [address] [place] [address], [place] [address] Oct, [facility] [address] [id number] [address] [place] [address], [place] [address] Sep, [facility] [address] [id number] [address] [place] [address], [place] [address] Sep, [facility] [address] [id number] [address] [place] [address], [place] [address] Sep, [facility] [address] [id number] [address] [place] [address], [place] [address] Sep, [facility] [address] [id number] [address] [place] [address], [place] [address] Jun, [facility] [address] [id number] [address] [place] [address], [place] [address] May, [facility] [address] [id number] [address] [place] [address], [place] [address] 14 Apr, 2011 [facility] [address] [id number] [address] [place] [address], [place] [address] Apr, [facility] [address] [id number] [address] [place] [address], [place] [address] Apr, [facility] [address] [id number] [address] [place] [address], [place] [address] Feb, [facility] [address] [id number] [address] [place] [address], [place] [address] Feb, [facility] [address] [id number] [address] [place] [address], [place] [address] Jan, [facility] [address] [id number] [address] [place] [address], [place] [address] Jan, [facility] [address] [id number] [address] [place] [address], [place] [address] Jan, [facility] [address] [id number] [address] [place] [address], [place] [address] Feb, [facility] [address] [id number] [address] [place] [address], [place] [address] Feb, [facility] [address] [id number] [address] [place] [address], [place] [address] Feb, [facility] [address] [id number] [address] [place] [address], [place] [address] 30 Feb, 2010 [facility] [address] [id number] [address] [place] [address], [place] [address] 27 Feb, 2010 [facility] [address] [id number] [address] [place] [address], [place] [address] 23 Feb, 2010 [facility] [address] [id number] [address] [place] [address], [place] [address] 20 Feb, 2010 [facility] [address] [id number] [address] [place] [address], [place] [address] 18 Feb, 2010 [facility] [address] [id number] [address] [place] [address], [place] [address] 18 Feb, 2010 [facility] [address] [id number] [address] [place] [address], [place] [address] 06 Feb, [address] [facility] [address] [id number] [address] [place] [address], [place] [address] Jan, [facility] [address] [id number] [address] [place] [address], [place] [address] 24 Dec, 2009 [facility] [address] [id number] [address] [place] [address], [place] [address] 14 Nov, [address] [facility] [address] [id number] [address] [place] [address], [place] [address] Mar, [facility] [address] [id number] [address] [place] [address], [place] [address] Jan, [facility] [address] [id number] [address] [place] [address] 15 Dec, 2008 [facility] [address] [id number] [address] [place] [address], [place] [address] Dec, [facility] [address] [id number] [address] [place] [address], [place] [address] Sep, [facility] [address] [id number] [address] [place] [address], [place] [address] Jun, [facility] [address] [facility] [id number] [address] [place] [address] Mar, [facility] [address] [facility] [id number] [address] [place] [address] Jan, IMMUNIZATIONS No Known Immunizations SOCIAL HISTORY [...] Heart cath per [facility] Burton at [facility]- hypotension 08/08 Hospitalization History Hematochezia-[facility] 07/27/16
--- OUTSIDE RECORDS SUMMARY | 2019-08-06 07:57 | XMS REPORT ---
Author Author Lavern Polo Doctor Organization [facility] Address Unknown Phone Unavailable Care Team Providers Care Criminal Justice Professor Name Role Phone Migration, Doctor Unavailable Unavailable PROBLEMS Type Condition ICD9-CM Code WRO71-WM Code Onset Dates Condition S tatus SNOMED Code Problem Cataracts, bilateral H26.9 Active 02207720 Problem CVA (cerebral vascular accident) I63.9 Active 766348451 Problem Hyperlipemia E78.5 Active 8568254 4 Problem Lymphocytosis D72.820 Active 662309 09 Problem Peripheral vascular disease, unspecified I73.9 Active 599692854 Problem Iron deficiency anemia due to chronic blood loss D 50.0 Active 298334898 Problem Thyroid nodule E04.1 Active 99404 5005 Problem Dysfunction of right eustachian tube H69.81 Active 16624118 Problem Post-surgical 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 A ctive 82266128 Problem 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 2755 89189 Problem Diverticulitis of intestine without perforation or abscess without bleeding, unspecified part of intestinal tract K57.92 Active 285483498 Problem Essential hypertension I10 Active 58229027 Problem Lung nodule, solitary R91.1 Active 903591467 Problem 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 of 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 Active [id number] ALLERGIES No Information ENCOUNTERS Encounter Location Date Diagnosis [facility] [address] [facility] [id number] [address] [place] [address] Oct, [facility] [address] [facility] [id number] [address] [place] [address] Oct, Arthralgia, unspecified join t M25.50 [facility] [address] [facility] [id number] [address] [place] [address] Oct, Seborrheic keratosis L82.1 [facility] [address] [facility] [id number] [address] [place] [address] Oct, [facility] [address] [facility] [id number] [address] [place] [address] Sep, [facility] [address] [place] [id number] [address] [place] [address] Sep, Other fatigue R53.83 ; Aleida diasis B37.9 and Arthralgia, unspecified joint M25.50 [facility] [address] [facility] [id number] [address] [place] [address] Jun, Post-surgical 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 [facility] [address] [facility] [id number] [address] [place] [address] May, Post-surgical 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 and Peripheral vascular disease, unspecified I73.9 [place] [address] [facility] [id number] [address] [place] [address] Mar, [place] [address] [place] [id number] [place] [address] Mar, Post-surgical 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 [facility] [address] [place] [id number] [address] [place] [address] Jan, Nodular thyroid disease E04. 1 ; Lung mass R91.8 ; Iron deficiency anemia due to chronic blood loss D50.0 ; Essential hypertension I10 and 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 of 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 [facility] [address] [facility] [id number] [address] [place] [address] [id number] Dec, Dental examination Z01.20 [facility] [address] [facility] [id number] [address] [place] [address] Dec, Thyroid nodule E04.1 [place] [address] [place] [id number] [address] [place] [address] Oct, Lung nodule, solitary R91.1 [facility] [address] [facility] [id number] [address] [place] [address] Oct, [facility] [address] [place] [id number] [address] [place] [address] Oct, [facility] [address] [place] [id number] [address] [place] [address] Oct, [facility] [address] [place] [id number] [address] [place] [address] Sep, [facility] [address] [place] [id number] [address] [place] [address] Aug, [place] [address] [place] [id number] [place] [address] July, Arthralgia, unspecified join t M25.50 ; Essential hypertension I10 ; Seborrheic keratosis L82.1 and LLQ abdominal pain R10.32 [place] [address] [place] [id number] [place] [address] Feb, Arthralgia, unspecified join t M25.50 [place] [address] [address] Feb, Arthralgia, unspecified join t M25.50 [place] [address] [place] [id number] [address] [place] [address] Dec, Arthralgia, unspecified join t M25.50 [place] [address] [place] [id number] [address] [place] [address] Dec, Right flank pain R10.9 ; Lef t foot pain M79.672 ; Arthralgia, unspecified joint M25.50 and Encounter for immunization Z23 [place] [address] [facility] [id number] [address] [place] [address] 09 Dec, 2016 CVA (cerebral vascular accid ent) I63.9 [place] [address] [place] [id number] [address] [place] [address] Dec, RUQ abdominal pain R10.11 [place] [address] [place] [id number] [address] [place] [address] Dec, Right lower quadrant pain R1 0.31 ; Diverticulitis of intestine without perforation or abscess without bleeding, unspecified part of intestinal tract K57.92 and Internal hemorrhoids K64.8 [place] [address] [place] [id number] [address] [place] [address] Nov, [facility] [address] [facility] [id number] [address] [place] [address] Oct, [place] [address] [place] [id number] [address] [place] [address] 30 Aug, 2016 Iron deficiency anemia due t o chronic blood loss D50.0 [place] [address] [place] [id number] [address] [place] [address] Aug, Peripheral vascular disease, unspecified I73.9 and Colitis K52.9 [place] [address] [place] [id number] [address] [place] [address] 14 Aug, 2016 H/O: GI bleed Z87.19 [place] [address] [place] [id number] [address] [place] [address] 07 Aug, 2016 CVA (cerebral vascular accid ent) I63.9 [place] [address] [place] [id number] [address] [place] [address] Aug, RUQ abdominal pain R10.11 [place] [address] [place] [id number] [address] [place] [address] July, RUQ abdominal pain R10.11 an d Lymphocytosis D72.820 [place] [address] [place] [id number] [address] [place] [address] July, [place] [address] [facility] [id number] [address] [place] [address] July, Colitis K52.9 [facility] [address] [id number] [place] [address] [id number] July, [place] [address] [place] [id number] [address] [place] [address] Jun, Right flank pain R10.9 [facility] [address] [id number] [address] [place] [address] May, Urinary tract infection with out hematuria, site unspecified N39.0 and Right flank pain R10.9 [facility] [address] [id number] [address] [place] [address] Feb, Acute non-recurrent maxillar y sinusitis J01.00 and Need for hepatitis C screening test Z11.59 [facility] [address] [id number] [address] [place] [address] [id number] Jan, Dental examination Z01.20 [facility] [address] [id number] [place] [address] [id number] Dec, Dental examination Z01.20 [facility] [address] [id number] [place] [address] [id number] Dec, Dental examination Z01.20 [facility] [address] [id number] [address] [place] [address] Dec, [facility] [address] [id number] [address] [place] [address] Dec, [facility] [address] [id number] [place] [address] [id number] Dec, Dental examination Z01.20 [facility] [address] [id number] [address] [place] [address] Nov, [facility] [address] [id number] [place] [address] [id number] Nov, Dental examination Z01.20 [facility] [address] [id number] [address] [place] [address] Oct, Arthralgia, unspecified join t M25.50 and Essential hypertension I10 [facility] [address] [id number] [address] [place] [address] Oct, [facility] [address] [id number] [address] [place] [address] Sep, Bilateral otitis media, unsp ecified chronicity, unspecified otitis media type H66.93 [facility] [address] [place] [id number] [place] [address] [phone] Sep, Dental examination Z01.20 [facility] [id number] [place] [address] [id number] 16 Aug, 2015 Dental examination V72.2 [facility] [address] [address] 14 Aug, 2015 Essential hypertension I10 a nd Muscle cramping R25.2 [place] [address] [address] 09 Aug, 2015 Tension-type headache, not i ntractable, unspecified chronicity pattern G44.209 ; Muscle cramping R25.2 and Right leg pain M79.604 [facility] [address] [place] [id number] [place] [address] [id number] July, Dental examination Z01.20 [facility] [address] [place] [id number] [place] [address] [id number] July, Encounter for dental examina tion and cleaning without abnormal findings Z01.20 and Dental caries K02.9 [facility] [id number] [place] [address] [id number] Jun, Encounter for dental examina tion Z01.20 [facility] [id number] [place] [address] Apr, [facility] [address] [place] [id number] [address] [place] [address] Apr, Bronchitis J40 [place] [address] [place] [id number] [address] [place] [address] Feb, Hyperlipemia E78.5 ; Carotid arterial disease I77.9 ; Tobacco use Z72.0 ; Hypertension I10 ; RBBB I45.10 and CVA (cerebral vascular accident) I63.9 [place] [address] [place] [id number] [address] [place] [address] Feb, Status post CVA Z86.73 ; Dys function of right eustachian tube H69.81 and Essential hypertension I10 [place] [address] [place] [id number] [address] [place] [address] 02 Dec, 2014 Encounter for immunization Z 23 [place] [address] [id number] Oct, PVD (peripheral vascular dis ease) 443.9 and Weight loss 783.21 [place] [address] [address] Oct, PVD (peripheral vascular dis ease) 443.9 and Weight loss 783.21 [place] [address] [id number] 17 Aug, 2014 Hyperlipidemia 272.4 ; Carot id arterial disease 447.9 ; Tobacco dependency 305.1 ; Hypertension 401.9 ; RBBB 426.4 and CVA (cerebral infarction) 434.[address] [address] Aug, [place] [address] [address] Aug, Pseudoaneurysm following pro cedure 997.[address] [address] July, Chest pain, unspecified 786. 50 ; [...] for prophylactic vaccination and inoculation, Influenza V04.81 [facility] [address] [id number] [address] [place] [address] Jun, [facility] [address] [id number] [address] [place] [phone] Jun, [facility] [address] [id number] [address] [place] [address] May, [facility] [address] [id number] [address] [place] [address] May, [facility] [address] [id number] [address] [place] [address] May, [facility] [address] [id number] [address] [place] [address] May, [facility] [address] [id number] [address] [place] [address] Mar, [facility] [address] [id number] [address] [place] [address] Mar, [facility] [address] [id number] [address] [place] [phone] Mar, [facility] [address] [id number] [address] [place] [address] Mar, [facility] [address] [id number] [address] [place] [address] Mar, [facility] [address] [id number] [address] [place] [phone] Mar, [facility] [address] [id number] [address] [place] [address] Mar, [facility] [address] [id number] [address] [place] [address], [place] [address] Mar, [facility] [address] [id number] [address] [place] [address], [place] [address] Mar, [facility] [address] [id number] [address] [place] [address], [place] [address] Mar, [facility] [address] [id number] [address] [place] [address], [place] [address] Feb, [facility] [address] [id number] [address] [place] [address], [place] [address] Feb, [facility] [address] [id number] [address] [place] [address], [place] [address] Feb, [facility] [address] [id number] [address] [place] [address], [place] [address] Feb, [facility] [address] [id number] [address] [place] [address], [place] [address] Feb, [facility] [address] [id number] [address] [place] [address], [place] [address] Feb, [facility] [address] [id number] [address] [place] [address], [place] [address] Feb, [facility] [address] [id number] [address] [place] [address], [place] [address] Feb, [facility] [address] [id number] [address] [place] [address], [place] [address] Jan, [facility] [address] [id number] [address] [place] [address], [place] [address] Jan, [facility] [address] [id number] [address] [place] [address], [place] [address] Nov, [facility] [address] [id number] [address] [place] [address], [place] [address] Nov, [facility] [address] [id number] [facility] [address] Sep, [facility] [address] [id number] [address] [place] [address], [place] [address] Sep, [facility] [address] [id number] [address] [place] [address], [place] [address] Sep, [facility] [address] [id number] [address] [place] [address], [place] [address] Sep, [facility] [address] [id number] [address] [place] [address], [place] [address] Aug, [facility] [address] [id number] [address] [place] [address], [place] [address] Aug, [facility] [address] [id number] [address] [place] [address], [place] [address] Aug, [facility] [address] [id number] [address] [place] [address], [place] [address] Aug, [facility] [address] [id number] [address] [place] [address], [place] [address] Aug, [facility] [address] [id number] [address] [place] [address], [place] [address] Aug, [facility] [address] [id number] [address] [place] [address], [place] [address] July, [facility] [address] [id number] [address] [place] [address], [place] [address] July, [facility] [address] [id number] [address] [place] [address], [place] [address] July, [facility] [address] [id number] [address] [place] [address], [place] [address] July, [facility] [address] [id number] [address] [place] [address], [place] [address] Jun, [facility] [address] [id number] [address] [place] [address], [place] [address] Jun, [facility] [address] [id number] [address] [place] [address], [place] [address] Apr, [facility] [address] [id number] [address] [place] [address], [place] [address] Apr, [facility] [address] [id number] [address] [place] [address], [place] [address] Apr, [facility] [address] [id number] [address] [place] [address], [place] [address] Apr, [facility] [address] [id number] [address] [place] [address], [place] [address] Apr, [facility] [address] [id number] [address] [place] [address], [place] [address] Apr, [facility] [address] [id number] [address] [place] [address], [place] [address] Mar, [facility] [address] [id number] [address] [place] [address], [place] [address] Mar, [facility] [address] [id number] [address] [place] [address], [place] [address] Mar, [facility] [address] [id number] [address] [place] [address], [place] [address] Mar, [facility] [address] [id number] [address] [place] [address], [place] [address] Mar, [facility] [address] [id number] [address] [place] [address], [place] [address] Feb, [facility] [address] [id number] [address] [place] [address], [place] [address] Feb, [facility] [address] [id number] [address] [place] [address], [place] [address] Feb, [facility] [address] [id number] [address] [place] [address], [place] [address] Feb, [facility] [address] [id number] [address] [place] [address], [place] [address] Feb, [facility] [address] [id number] [address] [place] [address], [place] [address] Feb, [facility] [address] [id number] [address] [place] [address], [place] [address] Feb, [facility] [address] [id number] [address] [place] [address], [place] [address] Feb, [facility] [address] [id number] [address] [place] [address], [place] [address] Feb, [facility] [address] [id number] [address] [place] [address], [place] [address] Feb, [facility] [address] [id number] [address] [place] [address], [place] [address] Feb, [facility] [address] [id number] [address] [place] [address], [place] [address] Feb, [facility] [address] [id number] [address] [place] [address], [place] [address] Jan, [facility] [address] [id number] [address] [place] [address], [place] [address] Jan, [facility] [address] [id number] [address] [place] [address], [place] [address] Jan, [facility] [address] [id number] [address] [place] [address], [place] [address] Jan, [facility] [address] [id number] [address] [place] [address], [place] [address] Jan, [facility] [address] [id number] [address] [place] [address], [place] [address] Jan, [facility] [address] [id number] [address] [place] [address], [place] [address] Jan, [facility] [address] [id number] [address] [place] [address], [place] [address] Jan, [facility] [address] [id number] [address] [place] [address], [place] [address] Jan, [facility] [address] [id number] [address] [place] [address], [place] [address] Jan, [facility] [address] [id number] [address] [place] [address], [place] [address] Jan, [facility] [address] [id number] [address] [place] [address], [place] [address] Jan, [facility] [address] [id number] [address] [place] [address], [place] [address] Jan, [facility] [address] [id number] [address] [place] [address], [place] [address] Jan, [facility] [address] [id number] [address] [place] [address], [place] [address] Jan, [facility] [address] [id number] [address] [place] [address], [place] [address] Dec, [facility] [address] [id number] [address] [place] [address], [place] [address] Dec, [facility] [address] [id number] [address] [place] [address], [place] [address] Dec, [facility] [address] [id number] [address] [place] [address], [place] [address] Dec, [facility] [address] [id number] [address] [place] [address], [place] [address] Oct, [facility] [address] [id number] [address] [place] [address], [place] [address] Oct, [facility] [address] [id number] [address] [place] [address], [place] [address] Oct, [facility] [address] [id number] [address] [place] [address], [place] [address] Sep, [facility] [address] [id number] [address] [place] [address], [place] [address] Aug, [facility] [address] [id number] [address] [place] [address], [place] [address] July, [facility] [address] [id number] [address] [place] [address], [place] [address] July, [facility] [address] [id number] [address] [place] [address], [place] [address] July, [facility] [address] [id number] [address] [place] [address], [place] [address] July, [facility] [address] [id number] [address] [place] [address], [place] [address] May, [facility] [address] [id number] [address] [place] [address], [place] [address] May, [facility] [address] [id number] [address] [place] [address], [place] [address] Mar, [facility] [address] [id number] [address] [place] [address], [place] [address] Mar, [facility] [address] [id number] [address] [place] [address], [place] [address] Mar, [facility] [address] [id number] [address] [place] [address], [place] [address] Feb, [facility] [address] [id number] [address] [place] [address], [place] [address] Feb, [facility] [address] [id number] [address] [place] [address], [place] [address] Feb, [facility] [address] [id number] [address] [place] [address], [place] [address] Feb, [facility] [address] [id number] [address] [place] [address], [place] [address] Feb, [facility] [facility] [address] [id number] [address] [place] [address], [place] [address] Feb, [facility] [address] [id number] [address] [place] [address], [place] [address] Jan, [facility] [address] [id number] [address] [place] [address], [place] [address] Jan, [facility] [address] [id number] [address] [place] [address], [place] [address] Jan, [facility] [address] [id number] [address] [place] [address], [place] [address] Jan, [facility] [address] [id number] [address] [place] [address], [place] [address] Jan, [facility] [address] [id number] [address] [place] [address], [place] [address] Jan, [facility] [address] [id number] [address] [place] [address], [place] [address] Jan, [facility] [address] [id number] [address] [place] [address], [place] [address] Jan, [facility] [address] [id number] [address] [place] [address], [place] [address] Dec, [facility] [address] [id number] [address] [place] [address], [place] [address] Dec, [facility] [address] [id number] [address] [place] [address], [place] [address] Dec, [facility] [address] [id number] [address] [place] [address], [place] [address] Dec, [facility] [address] [id number] [address] [place] [address], [place] [address] Oct, [facility] [address] [id number] [address] [place] [address], [place] [address] Sep, [facility] [address] [id number] [address] [place] [address], [place] [address] Sep, [facility] [address] [id number] [address] [place] [address], [place] [address] Sep, [facility] [address] [id number] [address] [place] [address], [place] [address] 13 Sep, 2011 [facility] [address] [id number] [address] [place] [address], [place] [address] Jun, [facility] [address] [id number] [address] [place] [address], [place] [address] 28 May, 2011 [facility] [address] [id number] [address] [place] [address], [place] [address] 14 Apr, 2011 [facility] [address] [id number] [address] [place] [address], [place] [address] Apr, [facility] [address] [id number] [address] [place] [address], [place] [address] Apr, [facility] [address] [id number] [address] [place] [address], [place] [address] Feb, [facility] [address] [id number] [address] [place] [address], [place] [address] Feb, [facility] [address] [id number] [address] [place] [address], [place] [address] Jan, [facility] [address] [id number] [address] [place] [address], [place] [address] Jan, [facility] [address] [id number] [address] [place] [address], [place] [address] Jan, [facility] [address] [id number] [address] [place] [address], [place] [address] Feb, [facility] [address] [id number] [address] [place] [address], [place] [address] Feb, [facility] [address] [id number] [address] [place] [address], [place] [address] Feb, [facility] [address] [id number] [address] [place] [address], [place] [address] 30 Feb, 2010 [facility] [address] [id number] [address] [place] [address], [place] [address] 27 Feb, 2010 [facility] [address] [id number] [address] [place] [address], [place] [address] 23 Feb, 2010 [facility] [address] [id number] [address] [place] [address], [place] [address] 20 Feb, 2010 [facility] [address] [id number] [address] [place] [address], [place] [address] 18 Feb, 2010 [facility] [address] [id number] [address] [place] [address], [place] [address] 18 Feb, 2010 [facility] [address] [id number] [address] [place] [address], [place] [address] 06 Feb, 2010 [facility] [address] [id number] [address] [place] [address], [place] [address] Jan, [facility] [address] [id number] [address] [place] [address], [place] [address] 24 Dec, 2009 [facility] [address] [id number] [address] [place] [address], [place] [address] 14 Nov, 2009 [facility] [address] [id number] [address] [place] [address], [place] [address] Mar, [facility] [address] [id number] [address] [place] [address] Jan, [facility] [address] [id number] [address] [place] [address], [place] [address] 15 Dec, 2008 [facility] [address] [id number] [address] [place] [address] 15 Dec, 2008 [facility] [address] [id number] [address] [place] [address] Sep, [facility] [address] [id number] [address] [place] [address] Jun, [facility] [address] [id number] [address] [place] [address] Mar, [facility] [address] [facility] [id number] [address] [place] [address] Jan, IMMUNIZATIONS No Known Immunizations SOCIAL HISTORY [...] per Dr. Burton at [facility]- hypotension 08/08 Hospitalization History Hematochezia-[facility] 07/27/16
--- OUTSIDE RECORDS SUMMARY | 2019-08-06 07:57 | XMS REPORT ---
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 Name Role Phone DAY HUGHES Unavailable PROBLEMS Type Condition ICD9-CM Code ESC13-FO Code Onset Dates Condition S tatus SNOMED Code Problem Cataracts, bilateral H26.9 Active 01777562 Problem CVA (cerebral vascular accident) I63.9 Active 073111975 Problem Hyperlipemia E78.5 Active 0650541 4 Problem Lymphocytosis D72.820 Active 566664 09 Problem Peripheral vascular disease, unspecified I73.9 Active 582976863 Problem Iron deficiency anemia due to chronic blood loss D 50.0 Active 428544586 Problem Thyroid nodule E04.1 Active 57502 5005 Problem Dysfunction of right eustachian tube H69.81 Active 73028901 Problem Post-surgical 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 A ctive 14214419 Problem 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 2755 34866 Problem Diverticulitis of intestine without perforation or abscess without bleeding, unspecified part of intestinal tract K57.92 Active 600894417 Problem Essential hypertension I10 Active 24436421 Problem Lung nodule, solitary R91.1 Active 405124173 Problem 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 of 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 Active [id number] ALLERGIES No Information ENCOUNTERS Encounter Location Date Diagnosis [facility] [place] [address] [facility] [id number] [address] [place] [address] Oct, [facility] [place] [address] [id number] [address] [place] [address] Oct, Arthralgia, unspecified join t M25.50 [facility] [place] [address] [id number] [address] [place] [address] Oct, Seborrheic keratosis L82.1 [place] [address] [place] [address] Oct, [facility] [place] [address] [address] Sep, [facility] [place] [address] [place] [id number] [address] [place] [address] Sep, Other fatigue R53.83 ; Aleida diasis B37.9 and Arthralgia, unspecified joint M25.50 [facility] [place] [address] [place] [id number] [address] [place] [address] Jun, Post-surgical 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 [place] [address] [address] May, Post-surgical 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 and Peripheral vascular disease, unspecified I73.9 [place] [address] [address] Mar, [facility] [place] [address] [address] Mar, Post-surgical 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 [place] [address] [place] [id number] [address] [place] [address] Jan, Nodular thyroid disease E04. 1 ; Lung mass R91.8 ; Iron deficiency anemia due to chronic blood loss D50.0 ; Essential hypertension I10 and 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 of 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 [facility] [address] [place] [id number] [address] [place] [address] [phone] Dec, Dental examination Z01.20 [place] [address] [place] [id number] [address] [place] [address] Dec, Thyroid nodule E04.1 [facility] [place] [address] [place] [id number] [address] [place] [address] Oct, Lung nodule, solitary R91.1 [place] [address] [place] [id number] [address] [place] [address] Oct, [facility] [place] [address] [address] Oct, [facility] [place] [address] [address] Oct, [facility] [place] [address] [address] Sep, [facility] [place] [address] [address] Aug, [facility] [place] [address] [address] July, Arthralgia, unspecified join t M25.50 ; Essential hypertension I10 ; Seborrheic keratosis L82.1 and LLQ abdominal pain R10.32 [place] [address] [address] Feb, Arthralgia, unspecified join t M25.50 [place] [address] [address] Feb, Arthralgia, unspecified join t M25.50 [place] [address] [address] Dec, Arthralgia, unspecified join t M25.50 [place] [address] [address] Dec, Right flank pain R10.9 ; Lef t foot pain M79.672 ; Arthralgia, unspecified joint M25.50 and Encounter for immunization Z23 [place] [address] [address] Dec, CVA (cerebral vascular accid ent) I63.9 [place] [address] [address] Dec, RUQ abdominal pain R10.11 [place] [address] [place] [address] Dec, Right lower quadrant pain R1 0.31 ; Diverticulitis of intestine without perforation or abscess without bleeding, unspecified part of intestinal tract K57.92 and Internal hemorrhoids K64.8 [place] [address] [address] Nov, [place] [address] [address] Oct, [place] [address] [address] Aug, Iron deficiency anemia due t o chronic blood loss D50.0 [place] [address] [address] Aug, Peripheral vascular disease, unspecified I73.9 and Colitis K52.9 [place] [address] [address] Aug, H/O: GI bleed Z87.19 [place] [address] [place] [id number] [address] [place] [address] 07 Aug, 2016 CVA (cerebral vascular accid ent) I63.9 [place] [address] [place] [id number] [address] [place] [address] Aug, RUQ abdominal pain R10.11 [place] [address] [place] [id number] [address] [place] [address] July, RUQ abdominal pain R10.11 an d Lymphocytosis D72.820 [place] [address] [place] [id number] [address] [place] [address] July, [place] [address] [address] July, Colitis K52.9 [facility] [address] [place] [id number] [place] [address] [phone] July, [place] [address] [place] [id number] [address] [place] [address] Jun, Right flank pain R10.9 [facility] [place] [address] [id number] [address] [place] [address] May, Urinary tract infection with out hematuria, site unspecified N39.0 and Right flank pain R10.9 [facility] [place] [address] [id number] [address] [place] [address] Feb, Acute non-recurrent maxillar y sinusitis J01.00 and Need for hepatitis C screening test Z11.59 [facility] [address] [id number] [address] [place] [address] [id number] Jan, Dental examination Z01.20 [facility] [address] [id number] [address] [place] [address] [id number] Dec, Dental examination Z01.20 [facility] [address] [id number] [address] [place] [address] [id number] Dec, Dental examination Z01.20 [facility] [place] [address] [id number] [address] [place] [address] Dec, [facility] [place] [address] [id number] [address] [place] [address] Dec, [facility] [address] [id number] [address] [place] [address] [id number] Dec, Dental examination Z01.20 [facility] [place] [address] [id number] [address] [place] [address] Nov, [facility] [address] [id number] [address] [place] [address] [id number] Nov, Dental examination Z01.20 [facility] [place] [address] [id number] [address] [place] [address] Oct, Arthralgia, unspecified join t M25.50 and Essential hypertension I10 [facility] [place] [address] [id number] [address] [place] [address] Oct, [facility] [address] [place] [id number] [address] [place] [address] Sep, Bilateral otitis media, unsp ecified chronicity, unspecified otitis media type H66.93 [facility] [address] [id number] [address] [place] [address] [id number] Sep, Dental examination Z01.20 [facility] [address] [place] [address] [id number] Aug, Dental examination V72.2 [facility] [place] [address] [address] 14 Aug, 2015 Essential hypertension I10 a nd Muscle cramping R25.2 [facility] [place] [address] [place] [id number] [address] [place] [address] 09 Aug, 2015 Tension-type headache, not i ntractable, unspecified chronicity pattern G44.209 ; Muscle cramping R25.2 and Right leg pain M79.604 [facility] [address] [place] [address] [id number] July, Dental examination Z01.20 [facility] [address] [place] [id number] [place] [address] [id number] July, Encounter for dental examina tion and cleaning without abnormal findings Z01.20 and Dental caries K02.9 [facility] [address] [place] [id number] [place] [address] [id number] Jun, Encounter for dental examina tion Z01.20 [facility] [place] [address] [place] [id number] [address] [place] [address] Apr, [facility] [address] [place] [id number] [address] [place] [address] Apr, Bronchitis J40 [facility] [place] [address] [place] [id number] [address] [place] [address] 09 Feb, 2015 Hyperlipemia E78.5 ; Carotid arterial disease I77.9 ; Tobacco use Z72.0 ; Hypertension I10 ; RBBB I45.10 and CVA (cerebral vascular accident) I63.[address] [address] Feb, Status post CVA Z86.73 ; Dys function of right eustachian tube H69.81 and Essential hypertension I10 [address] [address] Dec, Encounter for immunization Z [address] [address] Oct, PVD (peripheral vascular dis ease) 443.9 and Weight loss 783.[address] [address] Oct, PVD (peripheral vascular dis ease) 443.9 and Weight loss 783.[address] [address] Aug, Hyperlipidemia 272.4 ; Carot id arterial disease 447.9 ; Tobacco dependency 305.1 ; Hypertension 401.9 ; RBBB 426.4 and CVA (cerebral infarction) 434.[address] [address] Aug, [address] [address] Aug, Pseudoaneurysm following pro cedure 997.[address] [address] July, Chest pain, unspecified 786. 50 ; [...] for prophylactic vaccination and inoculation, Influenza V04.81 [facility] [place] [address] [id number] [address] [place] [address] 14 Jun, 2014 [facility] [place] [address] [id number] [address] [place] [phone] Jun, [facility] [place] [address] [facility] [id number] [address] [place] [address] May, [facility] [place] [address] [id number] [address] [place] [address] May, [facility] [place] [address] [id number] [address] [place] [address] May, [facility] [place] [address] [id number] [address] [place] [address] May, [facility] [place] [address] [facility] [id number] [address] [place] [phone] Mar, [facility] [place] [address] [id number] [address] [place] [phone] Mar, [facility] [place] [address] [id number] [address] [place] [phone] Mar, [facility] [place] [address] [id number] [address] [place] [phone] Mar, [facility] [place] [address] [id number] [address] [place] [id number] Mar, [facility] [place] [address] [id number] [address] [place] [address] Mar, [facility] [address] [id number] [address] [place] [address], [place] [address] Mar, [facility] [address] [id number] [address] [place] [address], [place] [address] Mar, [facility] [address] [id number] [address] [place] [address], [place] [address] Mar, [facility] [address] [id number] [address] [place] [address], [place] [address] Mar, [facility] [address] [id number] [address] [place] [address], [place] [address] Feb, [facility] [address] [id number] [address] [place] [address], [place] [address] Feb, [facility] [address] [id number] [address] [place] [address], [place] [address] Feb, [facility] [address] [id number] [address] [place] [address], [place] [address] Feb, [facility] [address] [id number] [address] [place] [address], [place] [address] Feb, [facility] [address] [id number] [address] [place] [address], [place] [address] Feb, [facility] [address] [id number] [address] [place] [address], [place] [address] Feb, [facility] [place] [facility] [address] [id number] [address] [place] [address], [place] [address] Feb, [facility] [place] [facility] [address] [id number] [address] [place] [address], [place] [address] Jan, [facility] [place] [facility] [address] [id number] [address] [place] [address], [place] [address] Jan, [facility] [place] [facility] [address] [id number] [address] [place] [address], [place] [address] Nov, [facility] [place] [facility] [address] [id number] [address] [place] [address], [place] [address] Nov, [facility] [address] [id number] [address] [place] [address], [place] [address] Sep, [facility] [address] [id number] [address] [place] [address], [place] [address] Sep, [facility] [address] [id number] [address] [place] [address], [place] [address] Sep, [facility] [address] [id number] [address] [place] [address], [place] [address] Sep, [facility] [address] [id number] [address] [place] [address], [place] [address] Aug, [facility] [address] [id number] [address] [place] [address], [place] [address] Aug, [facility] [address] [id number] [address] [place] [address], [place] [address] Aug, [facility] [address] [id number] [address] [place] [address], [place] [address] Aug, [facility] [address] [id number] [address] [place] [address], [place] [address] Aug, [facility] [address] [id number] [address] [place] [address], [place] [address] Aug, [facility] [address] [id number] [address] [place] [address], [place] [address] July, [facility] [address] [id number] [address] [place] [address], [place] [address] July, [facility] [place] [facility] [address] [id number] [address] [place] [address], [place] [address] July, [facility] [address] [id number] [address] [place] [address], [place] [address] July, [facility] [address] [id number] [address] [place] [address], [place] [address] Jun, [facility] [place] [facility] [address] [id number] [address] [place] [address], [place] [address] Jun, [facility] [address] [id number] [address] [place] [address], [place] [address] Apr, [facility] [address] [id number] [address] [place] [address], [place] [address] Apr, [facility] [address] [id number] [address] [place] [address], [place] [address] Apr, [facility] [address] [id number] [address] [place] [address], [place] [address] Apr, [facility] [address] [id number] [address] [place] [address], [place] [address] Apr, [facility] [address] [id number] [address] [place] [address], [place] [address] Apr, [facility] [address] [id number] [address] [place] [address], [place] [address] Mar, [facility] [address] [id number] [address] [place] [address], [place] [address] Mar, [facility] [address] [id number] [address] [place] [address], [place] [address] Mar, [facility] [address] [id number] [address] [place] [address], [place] [address] Mar, [facility] [address] [id number] [address] [place] [address], [place] [address] Mar, [facility] [address] [id number] [address] [place] [address], [place] [address] Feb, [facility] [address] [id number] [address] [place] [address], [place] [address] Feb, [facility] [place] [facility] [address] [id number] [address] [place] [address], [place] [address] Feb, [facility] [address] [id number] [address] [place] [address], [place] [address] 17 Feb, 2013 [facility] [address] [id number] [address] [place] [address], [place] [address] Feb, [facility] [address] [id number] [address] [place] [address], [place] [address] Feb, [facility] [address] [id number] [address] [place] [address], [place] [address] 06 Feb, 2013 [facility] [address] [id number] [address] [place] [address], [place] [address] Feb, [facility] [address] [id number] [address] [place] [address], [place] [address] Feb, [facility] [address] [id number] [address] [place] [address], [place] [address] Feb, [facility] [address] [id number] [address] [place] [address], [place] [address] Feb, [facility] [address] [id number] [address] [place] [address], [place] [address] Feb, [facility] [address] [id number] [address] [place] [address], [place] [address] Jan, [facility] [address] [id number] [address] [place] [address], [place] [address] Jan, [facility] [address] [id number] [address] [place] [address], [place] [address] Jan, [facility] [address] [id number] [address] [place] [address], [place] [address] Jan, [facility] [address] [id number] [address] [place] [address], [place] [address] Jan, [facility] [address] [id number] [address] [place] [address], [place] [address] Jan, [facility] [address] [id number] [address] [place] [address], [place] [address] Jan, [facility] [address] [id number] [address] [place] [address], [place] [address] Jan, [facility] [address] [id number] [address] [place] [address], [place] [address] Jan, [facility] [address] [id number] [address] [place] [address], [place] [address] Jan, [facility] [address] [id number] [address] [place] [address], [place] [address] Jan, [facility] [address] [id number] [address] [place] [address], [place] [address] Jan, [facility] [address] [id number] [address] [place] [address], [place] [address] Jan, [facility] [address] [id number] [address] [place] [address], [place] [address] Jan, [facility] [address] [id number] [address] [place] [address], [place] [address] Jan, [facility] [address] [id number] [address] [place] [address], [place] [address] Dec, [facility] [address] [id number] [address] [place] [address], [place] [address] Dec, [facility] [address] [id number] [address] [place] [address], [place] [address] Dec, [facility] [address] [id number] [address] [place] [address], [place] [address] Dec, [facility] [address] [id number] [address] [place] [address], [place] [address] Oct, [facility] [address] [id number] [address] [place] [address], [place] [address] Oct, [facility] [address] [id number] [address] [place] [address], [place] [address] Oct, [facility] [address] [id number] [address] [place] [address], [place] [address] Sep, [facility] [address] [id number] [address] [place] [address], [place] [address] Aug, [facility] [address] [id number] [address] [place] [address], [place] [address] July, [facility] [address] [id number] [address] [place] [address], [place] [address] July, [facility] [address] [id number] [address] [place] [address], [place] [address] July, [facility] [address] [id number] [address] [place] [address], [place] [address] July, [facility] [address] [id number] [address] [place] [address], [place] [address] May, [facility] [address] [id number] [address] [place] [address], [place] [address] May, [facility] [address] [id number] [address] [place] [address], [place] [address] Mar, [facility] [address] [id number] [address] [place] [address], [place] [address] Mar, [facility] [address] [id number] [address] [place] [address], [place] [address] Mar, [facility] [address] [id number] [address] [place] [address], [place] [address] Feb, [facility] [address] [id number] [address] [place] [address], [place] [address] Feb, [facility] [address] [id number] [address] [place] [address], [place] [address] Feb, [facility] [address] [id number] [address] [place] [address], [place] [address] Feb, [facility] [address] [id number] [address] [place] [address], [place] [address] Feb, [facility] [address] [id number] [address] [place] [address], [place] [address] Feb, [facility] [address] [id number] [address] [place] [address], [place] [address] Jan, [facility] [address] [id number] [address] [place] [address], [place] [address] Jan, [facility] [facility] [address] [id number] [address] [place] [address], [place] [address] Jan, [facility] [address] [id number] [address] [place] [address], [place] [address] Jan, [facility] [address] [id number] [address] [place] [address], [place] [address] Jan, [facility] [address] [id number] [address] [place] [address], [place] [address] Jan, [facility] [address] [id number] [address] [place] [address], [place] [address] Jan, [facility] [address] [id number] [address] [place] [address], [place] [address] Jan, [facility] [address] [id number] [address] [place] [address], [place] [address] Dec, [facility] [address] [id number] [address] [place] [address], [place] [address] Dec, [facility] [address] [id number] [address] [place] [address], [place] [address] Dec, [facility] [address] [id number] [address] [place] [address], [place] [address] Dec, [facility] [address] [id number] [address] [place] [address], [place] [address] Oct, [facility] [address] [id number] [address] [place] [address], [place] [address] Sep, [facility] [address] [id number] [address] [place] [address], [place] [address] Sep, [facility] [address] [id number] [address] [place] [address], [place] [address] Sep, [facility] [address] [id number] [address] [place] [address], [place] [address] Sep, [facility] [address] [id number] [address] [place] [address], [place] [address] Jun, [facility] [address] [id number] [address] [place] [address], [place] [address] May, [facility] [address] [id number] [address] [place] [address], [place] [address] 14 Apr, 2011 [facility] [address] [id number] [address] [place] [address], [place] [address] Apr, [facility] [address] [id number] [address] [place] [address], [place] [address] Apr, [facility] [address] [id number] [address] [place] [address], [place] [address] Feb, [facility] [address] [id number] [address] [place] [address], [place] [address] Feb, [facility] [address] [id number] [address] [place] [address], [place] [address] Jan, [facility] [address] [id number] [address] [place] [address], [place] [address] Jan, [facility] [address] [id number] [address] [place] [address], [place] [address] Jan, [facility] [address] [id number] [address] [place] [address], [place] [address] Feb, [facility] [address] [id number] [address] [place] [address], [place] [address] Feb, [facility] [address] [id number] [address] [place] [address], [place] [address] Feb, [facility] [address] [id number] [address] [place] [address], [place] [address] 30 Feb, 2010 [facility] [address] [id number] [address] [place] [address], [place] [address] 27 Feb, 2010 [facility] [address] [id number] [address] [place] [address], [place] [address] 23 Feb, 2010 [facility] [address] [id number] [address] [place] [address], [place] [address] 20 Feb, 2010 [facility] [address] [id number] [address] [place] [address], [place] [address] 18 Feb, 2010 [facility] [address] [id number] [address] [place] [address], [place] [address] 18 Feb, 2010 [facility] [address] [id number] [address] [place] [address], [place] [address] 06 Feb, 2010 [facility] [address] [id number] [address] [place] [address], [place] [address] Jan, [facility] [address] [id number] [address] [place] [address], [place] [address] 24 Dec, 2009 [facility] [address] [id number] [address] [place] [address], [place] [address] 14 Nov, 2009 [facility] [address] [id number] [address] [place] [address], [place] [address] Mar, [facility] [address] [id number] [address] [place] [address], [place] [address] Jan, [facility] [address] [id number] [address] [place] [address] 15 Dec, 2008 [facility] [address] [id number] [address] [place] [address], [place] [address] Dec, [facility] [address] [id number] [address] [place] [address], [place] [address] Sep, [facility] [address] [id number] [address] [place] [address], [place] [address] Jun, [facility] [address] [facility] [id number] [address] [place] [address] Mar, [facility] [address] [facility] [id number] [address] [place] [address] Jan, IMMUNIZATIONS No Known Immunizations SOCIAL HISTORY Never Assessed REASON FOR VISIT PLAN OF CARE VITAL SIGNS MEDICATIONS Unknown Medications RESULTS No Results PROCEDURES Procedure Date Ordered Result Body Site LIPID PANEL Mar 28, 2014 COMPREHEN METABOLIC PANEL Mar 28, 2014 VENIPUNCT, ROUTINE* Mar 28, 2014 INSTRUCTIONS MEDICATIONS ADMINISTERED No Known Medications [...] Heart cath per [facility]- hypotension 08/08 Hospitalization History Hemat[facility]zia[facility] 07/27/16
--- OUTSIDE RECORDS SUMMARY | 2019-08-06 07:58 | XMS REPORT ---
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 Name Role Phone DAY HUGHES Unavailable PROBLEMS Type Condition ICD9-CM Code ACG74-CC Code Onset Dates Condition S tatus SNOMED Code Problem Cataracts, bilateral H26.9 Active 63008613 Problem CVA (cerebral vascular accident) I63.9 Active 687148463 Problem Hyperlipemia E78.5 Active 6771838 4 Problem Lymphocytosis D72.820 Active 658077 09 Problem Peripheral vascular disease, unspecified I73.9 Active 564287319 Problem Iron deficiency anemia due to chronic blood loss D 50.0 Active 433366611 Problem Thyroid nodule E04.1 Active 15011 5005 Problem Dysfunction of right eustachian tube H69.81 Active 29877905 Problem Post-surgical 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 A ctive 19188237 Problem 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 2755 74605 Problem Diverticulitis of intestine without perforation or abscess without bleeding, unspecified part of intestinal tract K57.92 Active 973714202 Problem Essential hypertension I10 Active 95029709 Problem Lung nodule, solitary R91.1 Active 892433039 Problem 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 of 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 Active [id number] ALLERGIES No Information ENCOUNTERS Encounter Location Date Diagnosis [facility] [place] [address] [facility] [id number] [address] [place] [phone] Oct, [facility] [place] [address] [facility] [id number] [address] [place] [phone] Sep, [facility] [place] [address] [facility] [id number] [address] [place] [phone] Sep, Other fatigue R53.83 ; Aleida diasis B37.9 and Arthralgia, unspecified joint M25.50 [facility] [place] [address] [facility] [id number] [address] [place] [phone] Jun, Post-surgical 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 [facility] [place] [address] [facility] [id number] [address] [place] [phone] May, Post-surgical 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 and Peripheral vascular disease, unspecified I73.9 [facility] [place] [address] [facility] [id number] [address] [place] [phone] Mar, [facility] [place] [address] [facility] [id number] [address] [place] [phone] Mar, Post-surgical 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 [facility] [place] [address] [place] [id number] [place] [phone] Jan, Nodular thyroid disease E04. 1 ; Lung mass R91.8 ; Iron deficiency anemia due to chronic blood loss D50.0 ; Essential hypertension I10 and 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 of 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 [facility] [address] [place] [address] [id number] [address] [place] [place] [address] [id number] Dec, Dental examination Z01.20 [facility] [place] [address] [address] Dec, Thyroid nodule E04.1 [facility] [place] [address] [place] [id number] [address] [place] [phone] Oct, Lung nodule, solitary R91.1 [facility] [place] [address] [facility] [id number] [address] [place] [phone] Oct, [facility] [place] [address] [facility] [id number] [address] [place] [phone] Oct, [facility] [place] [address] [place] [id number] [address] [place] [phone] Oct, [facility] [place] [address] [place] [id number] [address] [place] [phone] Sep, [facility] [place] [address] [place] [address] Aug, [place] [address] [address] July, Arthralgia, unspecified join t M25.50 ; Essential hypertension I10 ; Seborrheic keratosis L82.1 and LLQ abdominal pain R10.32 [place] [address] [address] Feb, Arthralgia, unspecified join t M25.50 [place] [address] [place] [id number] [place] [phone] Feb, Arthralgia, unspecified join t M25.50 [place] [address] [address] Dec, Arthralgia, unspecified join t M25.50 [place] [address] [address] Dec, Right flank pain R10.9 ; Lef t foot pain M79.672 ; Arthralgia, unspecified joint M25.50 and Encounter for immunization Z23 [place] [address] [address] Dec, CVA (cerebral vascular accid ent) I63.9 [place] [address] [address] Dec, RUQ abdominal pain R10.11 [place] [address] [place] [id number] [place] [phone] Dec, Right lower quadrant pain R1 0.31 ; Diverticulitis of intestine without perforation or abscess without bleeding, unspecified part of intestinal tract K57.92 and Internal hemorrhoids K64.8 [place] [address] [place] [id number] [address] [place] [phone] Nov, [place] [address] [phone] Oct, [place] [id number] [place] [id number] [address] [place] [phone] Aug, Iron deficiency anemia due t o chronic blood loss D50.0 [place] [address] [place] [id number] [address] [place] [phone] Aug, Peripheral vascular disease, unspecified I73.9 and Colitis K52.9 [place] [address] [place] [id number] [address] [place] [phone] 14 Aug, 2016 H/O: GI bleed Z87.19 [place] [address] [place] [id number] [address] [place] [phone] 07 Aug, 2016 CVA (cerebral vascular accid ent) I63.9 [place] [address] [place] [id number] [address] [place] [phone] Aug, RUQ abdominal pain R10.11 [place] [address] [place] [id number] [address] [place] [phone] July, RUQ abdominal pain R10.11 an d Lymphocytosis D72.820 [place] [address] [place] [id number] [address] [place] [phone] July, [place] [address] [place] [id number] [address] [place] [phone] July, Colitis K52.9 [facility] [address] [place] [id number] [place] [address] [id number] July, [place] [address] [facility] [id number] [address] [place] [phone] Jun, Right flank pain R10.9 [place] [address] [place] [id number] [address] [place] [phone] May, Urinary tract infection with out hematuria, site unspecified N39.0 and Right flank pain R10.9 [place] [id number] [facility] [id number] [address] [place] [phone] Feb, Acute non-recurrent maxillar y sinusitis J01.00 and Need for hepatitis C screening test Z11.59 [facility] [address] [id number] [address] [place] [address] [id number] Jan, Dental examination Z01.20 [facility] [address] [id number] [address] [place] [address] [id number] Dec, Dental examination Z01.20 [facility] [address] [id number] [place] [address] [id number] Dec, Dental examination Z01.20 [facility] [place] [address] [id number] [address] [place] [phone] Dec, [facility] [place] [address] [id number] [address] [place] [phone] Dec, [facility] [address] [id number] [place] [address] [id number] Dec, Dental examination Z01.20 [facility] [place] [address] [id number] [address] [place] [phone] Nov, [facility] [address] [id number] [place] [address] [id number] Nov, Dental examination Z01.20 [facility] [place] [address] [id number] [address] [place] [phone] Oct, Arthralgia, unspecified join t M25.50 and Essential hypertension I10 [facility] [place] [address] [id number] [address] [place] [phone] Oct, [facility] [address] [id number] [address] [place] [phone] Sep, Bilateral otitis media, unsp ecified chronicity, unspecified otitis media type H66.93 [facility] [address] [id number] [address] [place] [address] [id number] Sep, Dental examination Z01.20 [facility] [address] [id number] [address] [place] [address] [id number] 16 Aug, 2015 Dental examination V72.2 [facility] [place] [address] [place] [id number] [address] [place] [phone] 14 Aug, 2015 Essential hypertension I10 a nd Muscle cramping R25.2 [facility] [place] [address] [place] [id number] [place] [phone] 09 Aug, 2015 Tension-type headache, not i ntractable, unspecified chronicity pattern G44.209 ; Muscle cramping R25.2 and Right leg pain M79.604 [facility] [id number] [place] [address] [id number] July, Dental examination Z01.20 [facility] [address] [id number] July, Encounter for dental examina tion and cleaning without abnormal findings Z01.20 and Dental caries K02.9 [facility] [address] [id number] Jun, Encounter for dental examina tion Z01.20 [facility] [place] [address] [place] [address] [id number] [address] [place] [phone] Apr, [facility] [address] [place] [id number] [address] [place] [id number] 02 Apr, 2015 Bronchitis J40 [facility] [place] [address] [id number] 09 Feb, 2015 Hyperlipemia E78.5 ; Carotid arterial disease I77.9 ; Tobacco use Z72.0 ; Hypertension I10 ; RBBB I45.10 and CVA (cerebral vascular accident) I63.9 [facility] [place] [address] [id number] 03 Feb, 2015 Status post CVA Z86.73 ; Dys function of right eustachian tube H69.81 and Essential hypertension I10 [facility] [place] [address] [address] Dec, Encounter for immunization Z 23 [place] [address] [facility] [id number] [address] [place] [phone] Oct, PVD (peripheral vascular dis ease) 443.9 and Weight loss 783.21 [place] [address] [place] [id number] [address] [place] [phone] Oct, PVD (peripheral vascular dis ease) 443.9 and Weight loss 783.21 [place] [address] [id number] Aug, Hyperlipidemia 272.4 ; Carot id arterial disease 447.9 ; Tobacco dependency 305.1 ; Hypertension 401.9 ; RBBB 426.4 and CVA (cerebral infarction) 434.91 [place] [address] [id number] Aug, [address] [phone] Aug, Pseudoaneurysm following pro cedure 997.[address] [address] July, Chest pain, unspecified 786. 50 ; [...] for prophylactic vaccination and inoculation, Influenza V04.81 [facility] [place] [address] [id number] [address] [place] [address], [place] [address] 14 Jun, 2014 [facility] [place] [address] [id number] [address] [place] [phone] Jun, [facility] [place] [address] [id number] [address] [place] [address], [place] [address] May, [facility] [place] [address] [id number] [address] [place] [phone] May, [facility] [place] [address] [id number] [address] [place] [address], [place] [address] May, [facility] [place] [address] [id number] [address] [place] [phone] May, [facility] [place] [address] [id number] [address] [place] [phone] Mar, [facility] [place] [address] [id number] [address] [place] [phone] Mar, [facility] [place] [address] [id number] [address] [place] [phone] Mar, [facility] [place] [address] [id number] [address] [place] [phone] Mar, [facility] [place] [address] [id number] [address] [place] [phone] Mar, [facility] [place] [address] [id number] [address] [place] [phone] Mar, [facility] [place] [address] [id number] [address] [place] [phone] Mar, [facility] [place] [address] [id number] [address] [place] [phone] Mar, [facility] [place] [address] [id number] [address] [place] [phone] Mar, [facility] [place] [address] [id number] [address] [place] [address], [place] [address] Mar, [facility] [address] [id number] [address] [place] [address], [place] [address] Feb, [facility] [address] [id number] [address] [place] [address], [place] [address] Feb, [facility] [address] [id number] [address] [place] [address], [place] [address] Feb, [facility] [address] [id number] [address] [place] [address], [place] [address] Feb, [facility] [address] [id number] [address] [place] [address], [place] [address] Feb, [facility] [address] [id number] [address] [place] [address], [place] [address] Feb, [facility] [address] [id number] [address] [place] [address], [place] [address] Feb, [facility] [address] [id number] [address] [place] [address], [place] [address] Feb, [facility] [address] [id number] [address] [place] [address], [place] [address] Jan, [facility] [address] [id number] [address] [place] [address], [place] [address] Jan, [facility] [address] [id number] [address] [place] [address], [place] [address] Nov, [facility] [address] [id number] [address] [place] [address], [place] [address] Nov, [facility] [address] [id number] [address] [place] [address], [place] [address] Sep, [facility] [address] [id number] [address] [place] [address], [place] [address] Sep, [facility] [address] [id number] [address] [place] [address], [place] [address] Sep, [facility] [address] [id number] [address] [place] [address], [place] [address] Sep, [facility] [address] [id number] [address] [place] [address], [place] [address] Aug, [facility] [address] [id number] [address] [place] [address], [place] [address] Aug, [facility] [address] [id number] [address] [place] [address], [place] [address] Aug, [facility] [address] [id number] [address] [place] [address], [place] [address] Aug, [facility] [address] [id number] [address] [place] [address], [place] [address] Aug, [facility] [address] [id number] [address] [place] [address], [place] [address] Aug, [facility] [address] [id number] [address] [place] [address], [place] [address] July, [facility] [address] [id number] [address] [place] [address], [place] [address] July, [facility] [address] [id number] [address] [place] [address], [place] [address] July, [facility] [address] [id number] [address] [place] [address], [place] [address] July, [facility] [address] [id number] [address] [place] [address], [place] [address] Jun, [facility] [address] [id number] [address] [place] [address], [place] [address] Jun, [facility] [address] [id number] [address] [place] [address], [place] [address] Apr, [facility] [address] [id number] [address] [place] [address], [place] [address] Apr, [facility] [address] [id number] [address] [place] [address], [place] [address] Apr, [facility] [address] [id number] [address] [place] [address], [place] [address] Apr, [facility] [address] [id number] [address] [place] [address], [place] [address] Apr, [facility] [address] [id number] [address] [place] [address], [place] [address] Apr, [facility] [address] [id number] [address] [place] [address], [place] [address] Mar, [facility] [address] [id number] [address] [place] [address], [place] [address] Mar, [facility] [address] [id number] [address] [place] [address], [place] [address] Mar, [facility] [address] [id number] [address] [place] [address], [place] [address] Mar, [facility] [address] [id number] [address] [place] [address], [place] [address] Mar, [facility] [address] [id number] [address] [place] [address], [place] [address] Feb, [facility] [address] [id number] [address] [place] [address], [place] [address] Feb, [facility] [address] [id number] [address] [place] [address], [place] [address] Feb, [facility] [address] [id number] [address] [place] [address], [place] [address] Feb, [facility] [address] [id number] [address] [place] [address], [place] [address] Feb, [facility] [address] [id number] [address] [place] [address], [place] [address] Feb, [facility] [address] [id number] [address] [place] [address], [place] [address] 06 Feb, 2013 [facility] [address] [id number] [address] [place] [address], [place] [address] Feb, [facility] [address] [id number] [address] [place] [address], [place] [address] Feb, [facility] [address] [id number] [address] [place] [address], [place] [address] Feb, [facility] [address] [id number] [address] [place] [address], [place] [address] Feb, [facility] [address] [id number] [address] [place] [address], [place] [address] Feb, [facility] [address] [id number] [address] [place] [address], [place] [address] Jan, [facility] [address] [id number] [address] [place] [address], [place] [address] Jan, [facility] [address] [id number] [address] [place] [address], [place] [address] Jan, [facility] [address] [id number] [address] [place] [address], [place] [address] Jan, [facility] [address] [id number] [address] [place] [address], [place] [address] Jan, [facility] [address] [id number] [address] [place] [address], [place] [address] Jan, [facility] [address] [id number] [address] [place] [address], [place] [address] Jan, [facility] [address] [id number] [address] [place] [address], [place] [address] Jan, [facility] [address] [id number] [address] [place] [address], [place] [id number] Jan, [facility] [address] [id number] [address] [place] [address], [place] [address] Jan, [facility] [address] [id number] [address] [place] [address], [place] [address] Jan, [facility] [address] [id number] [address] [place] [address], [place] [address] Jan, [facility] [address] [id number] [address] [place] [address], [place] [address] Jan, [facility] [address] [id number] [address] [place] [address], [place] [address] Jan, [facility] [address] [id number] [address] [place] [address], [place] [address] Jan, [facility] [address] [id number] [address] [place] [address], [place] [address] Dec, [facility] [address] [id number] [address] [place] [address], [place] [address] Dec, [facility] [address] [id number] [address] [place] [address], [place] [address] Dec, [facility] [address] [id number] [address] [place] [address], [place] [address] Dec, [facility] [address] [id number] [address] [place] [address], [place] [address] Oct, [facility] [address] [id number] [address] [place] [address], [place] [address] Oct, [facility] [address] [id number] [address] [place] [id number] Oct, [facility] [address] [id number] [address] [place] [id number] Sep, [facility] [address] [id number] [address] [place] [address], [place] [address] Aug, [facility] [address] [id number] [address] [place] [address], [place] [address] July, [facility] [address] [id number] [address] [place] [address], [place] [address] July, [facility] [address] [id number] [address] [place] [address], [place] [address] July, [facility] [address] [id number] [address] [place] [address], [place] [address] July, [facility] [address] [id number] [address] [place] [address], [place] [address] May, [facility] [address] [id number] [address] [place], [place] [address], [place] [address] May, [facility] [address] [id number] [address] [place] [address], [place] [address] Mar, [facility] [address] [id number] [address] [place] [address], [place] [address] Mar, [facility] [address] [id number] [address] [place] [address], [place] [address] Mar, [facility] [address] [id number] [address] [place] [address], [place] [address] Feb, [facility] [address] [id number] [address] [place] [address], [place] [address] Feb, [facility] [address] [id number] [address] [place] [address], [place] [address] Feb, [facility] [address] [id number] [address] [place] [address], [place] [address] Feb, [facility] [address] [id number] [address] [place] [address], [place] [address] Feb, [facility] [address] [id number] [address] [place] [address], [place] [address] Feb, [facility] [address] [id number] [address] [place] [address], [place] [address] Jan, [facility] [address] [id number] [address] [place] [address], [place] [address] Jan, [facility] [address] [id number] [address] [place] [address], [place] [address] Jan, [facility] [address] [id number] [address] [place] [address], [place] [address] Jan, [facility] [address] [id number] [address] [place] [address], [place] [address] Jan, [facility] [address] [id number] [address] [place] [address], [place] [address] Jan, [facility] [address] [id number] [address] [place] [address], [place] [address] Jan, [facility] [address] [id number] [address] [place] [address], [place] [address] Jan, [facility] [address] [id number] [address] [place] [address], [place] [address] Dec, [facility] [address] [id number] [address] [place] [address], [place] [address] Dec, [facility] [address] [id number] [address] [place] [address], [place] [address] Dec, [facility] [address] [id number] [address] [place] [address], [place] [address] Dec, [facility] [address] [id number] [address] [place] [address], [place] [address] Oct, [facility] [address] [id number] [address] [place] [address], [place] [address] Sep, [facility] [address] [id number] [address] [place] [address], [place] [address] Sep, [facility] [address] [id number] [address] [place] [address], [place] [address] Sep, [facility] [address] [id number] [address] [place] [address], [place] [address] Sep, [facility] [address] [id number] [address] [place] [address], [place] [address] Jun, [facility] [address] [id number] [address] [place] [address], [place] [address] May, [facility] [address] [id number] [address] [place] [address], [place] [address] 14 Apr, 2011 [facility] [address] [id number] [address] [place] [address], [place] [address] Apr, [facility] [address] [id number] [address] [place] [address], [place] [address] Apr, [facility] [address] [id number] [address] [place] [address], [place] [address] Feb, [facility] [address] [id number] [address] [place] [address], [place] [address] Feb, [facility] [address] [id number] [address] [place] [address], [place] [address] Jan, [facility] [address] [id number] [address] [place] [address], [place] [address] Jan, [facility] [address] [id number] [address] [place] [address], [place] [address] Jan, [facility] [address] [id number] [address] [place] [address], [place] [address] 31 Feb, 2010 [facility] [address] [id number] [address] [place] [address], [place] [address] 30 Feb, 2010 [facility] [address] [id number] [address] [place] [address], [place] [address] 30 Feb, 2010 [facility] [address] [id number] [address] [place] [address], [place] [address] 30 Feb, 2010 [facility] [address] [id number] [address] [place] [address], [place] [address] 27 Feb, 2010 [facility] [address] [id number] [address] [place] [address], [place] [address] 23 Feb, 2010 [facility] [address] [id number] [address] [place] [address], [place] [address] 20 Feb, 2010 [facility] [place] [address] [id number] [address] [place] [phone] 18 Feb, 2010 [facility] [place] [address] [id number] [address] [place] [phone] Feb, [facility] [address] [id number] [address] [place] [phone] Feb, [facility] [place] [address] [id number] [address] [place] [phone] Jan, [facility] [place] [address] [id number] [address] [place] [phone] Dec, [facility] [place] [address] [id number] [address] [place] [phone] Nov, [facility] [place] [address] [id number] [address] [place] [phone] Mar, [facility] [place] [address] [id number] [address] [place] [phone] Jan, [facility] [place] [address] [id number] [address] [place] [phone] Dec, [facility] [place] [address] [id number] [address] [place] [phone] Dec, [facility] [place] [address] [id number] [address] [place] [phone] Sep, [facility] [place] [address] [id number] [address] [place] [phone] Jun, [facility] [place] [address] [id number] [address] [place] [phone] Mar, [facility] [place] [address] [id number] [address] [place] [phone] Jan, IMMUNIZATIONS No Known Immunizations SOCIAL HISTORY Never Assessed REASON FOR VISIT PLAN OF CARE VITAL SIGNS Height 57 in 2014-04-09 Weight 149.1 lbs 2014-04-09 Temperature 97.8 degrees Fahrenheit 2014-04-09 Heart Rate 80 bpm 2014-04-09 Respiratory Rate 18 2014-04-09 Blood pressure systolic 154 mmHg 2014-04-09 Blood pressure diastolic 80 mmHg 2014-04-09 MEDICATIONS Unknown Medications RESULTS No Results PROCEDURES Procedure Date Ordered Result Body Site DESTRUCT LESION, -Apr 09, 2014 INSTRUCTIONS MEDICATIONS ADMINISTERED No Known Medications [...]
--- OUTSIDE RECORDS SUMMARY | 2019-08-06 07:58 | XMS REPORT ---
Author Author Lavern HUGHES [facility] Address [address] [place] [address] Care Team Providers Care Server Software Engineer Name Role Phone DAY HUGHES Unavailable PROBLEMS Type Condition ICD9-CM Code WWT66-DD Code Onset Dates Condition S tatus SNOMED Code Problem Cataracts, bilateral H26.9 Active 48997548 Problem CVA (cerebral vascular accident) I63.9 Active 657702960 Problem Hyperlipemia E78.5 Active 6420484 4 Problem Lymphocytosis D72.820 Active 253966 09 Problem Peripheral vascular disease, unspecified I73.9 Active 690206785 Problem Iron deficiency anemia due to chronic blood loss D 50.0 Active 030516458 Problem Thyroid nodule E04.1 Active 17341 5005 Problem Dysfunction of right eustachian tube H69.81 Active 21477935 Problem Post-surgical 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 A ctive 98221097 Problem 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 2755 07102 Problem Diverticulitis of intestine without perforation or abscess without bleeding, unspecified part of intestinal tract K57.92 Active 611209704 Problem Essential hypertension I10 Active 21153242 Problem Lung nodule, solitary R91.1 Active 050940477 Problem 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 of 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 Active [id number] ALLERGIES No Information ENCOUNTERS Encounter Location Date Diagnosis [facility] [address] [facility] [id number] [address] [place] [address] Oct, [facility] [address] [facility] [id number] [address] [place] [address] Sep, [facility] [address] [facility] [id number] [address] [place] [address] Sep, Other fatigue R53.83 ; Aleida diasis B37.9 and Arthralgia, unspecified joint M25.50 [facility] [address] [facility] [id number] [address] [place] [address] Jun, Post-surgical 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 [facility] [address] [facility] [id number] [address] [place] [address] May, Post-surgical 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 and Peripheral vascular disease, unspecified I73.9 [facility] [address] [facility] [id number] [address] [place] [address] Mar, [facility] [address] [facility] [id number] [address] [place] [address] Mar, Post-surgical 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 [facility] [address] [place] [id number] [place] [address] Jan, Nodular thyroid disease E04. 1 ; Lung mass R91.8 ; Iron deficiency anemia due to chronic blood loss D50.0 ; Essential hypertension I10 and 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 of 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 [facility] [address] [place] [address] [id number] [address] [place] [address] [id number] Dec, Dental examination Z01.20 [facility] [address] [address] Dec, Thyroid nodule E04.1 [facility] [address] [place] [id number] [address] [place] [address] Oct, Lung nodule, solitary R91.1 [facility] [address] [facility] [id number] [address] [place] [address] Oct, [facility] [address] [facility] [id number] [address] [place] [address] Oct, [facility] [address] [place] [id number] [address] [place] [address] Oct, [facility] [address] [place] [id number] [address] [place] [address] Sep, [facility] [address] [place] [address] Aug, [place] [address] [address] July, Arthralgia, unspecified join t M25.50 ; Essential hypertension I10 ; Seborrheic keratosis L82.1 and LLQ abdominal pain R10.32 [place] [address] [address] Feb, Arthralgia, unspecified join t M25.50 [place] [address] [place] [id number] [place] [address] Feb, Arthralgia, unspecified join t M25.50 [place] [address] [address] Dec, Arthralgia, unspecified join t M25.50 [place] [address] [address] Dec, Right flank pain R10.9 ; Lef t foot pain M79.672 ; Arthralgia, unspecified joint M25.50 and Encounter for immunization Z23 [place] [address] [address] Dec, CVA (cerebral vascular accid ent) I63.9 [place] [address] [address] Dec, RUQ abdominal pain R10.11 [place] [address] [place] [id number] [place] [address] Dec, Right lower quadrant pain R1 0.31 ; Diverticulitis of intestine without perforation or abscess without bleeding, unspecified part of intestinal tract K57.92 and Internal hemorrhoids K64.8 [place] [address] [place] [id number] [address] [place] [address] Nov, [place] [address] [address] Oct, [place] [address] [place] [id number] [address] [place] [address] Aug, Iron deficiency anemia due t o chronic blood loss D50.0 [place] [address] [place] [id number] [address] [place] [address] Aug, Peripheral vascular disease, unspecified I73.9 and Colitis K52.9 [place] [address] [place] [id number] [address] [place] [address] 14 Aug, 2016 H/O: GI bleed Z87.19 [place] [address] [place] [id number] [address] [place] [address] 07 Aug, 2016 CVA (cerebral vascular accid ent) I63.9 [place] [address] [place] [id number] [address] [place] [address] Aug, RUQ abdominal pain R10.11 [place] [address] [place] [id number] [address] [place] [address] July, RUQ abdominal pain R10.11 an d Lymphocytosis D72.820 [place] [address] [place] [id number] [address] [place] [address] July, [place] [address] [place] [id number] [address] [place] [address] July, Colitis K52.9 [facility] [address] [place] [id number] [place] [address] [id number] July, [place] [address] [facility] [id number] [address] [place] [address] Jun, Right flank pain R10.9 [place] [address] [place] [id number] [address] [place] [address] May, Urinary tract infection with out hematuria, site unspecified N39.0 and Right flank pain R10.9 [place] [address] [facility] [id number] [address] [place] [address] Feb, Acute non-recurrent maxillar y sinusitis J01.00 and Need for hepatitis C screening test Z11.59 [facility] [address] [id number] [address] [place] [id number] Jan, Dental examination Z01.20 [facility] [address] [id number] [address] [place] [address] [id number] Dec, Dental examination Z01.20 [facility] [id number] [place] [address] [id number] Dec, Dental examination Z01.20 [facility] [address] [id number] [address] [place] [address] Dec, [facility] [address] [id number] [address] [place] [address] Dec, [facility] [address] [id number] [place] [address] [id number] Dec, Dental examination Z01.20 [facility] [address] [id number] [address] [place] [address] Nov, [facility] [address] [id number] [place] [address] [id number] Nov, Dental examination Z01.20 [facility] [address] [id number] [address] [place] [address] Oct, Arthralgia, unspecified join t M25.50 and Essential hypertension I10 [facility] [address] [id number] [address] [place] [address] Oct, [facility] [address] [id number] [address] [place] [address] Sep, Bilateral otitis media, unsp ecified chronicity, unspecified otitis media type H66.93 [facility] [address] [id number] [address] [place] [address] [phone] Sep, Dental examination Z01.20 [facility] [address] [id number] [address] [place] [address] [id number] 16 Aug, 2015 Dental examination V72.2 [facility] [address] [place] [id number] [address] [place] [address] 14 Aug, 2015 Essential hypertension I10 a nd Muscle cramping R25.2 [facility] [address] [place] [id number] [place] [address] 09 Aug, 2015 Tension-type headache, not i ntractable, unspecified chronicity pattern G44.209 ; Muscle cramping R25.2 and Right leg pain M79.604 [facility] [id number] [place] [address] [id number] July, Dental examination Z01.20 [facility] [address] [id number] July, Encounter for dental examina tion and cleaning without abnormal findings Z01.20 and Dental caries K02.9 [facility] [address] [id number] Jun, Encounter for dental examina tion Z01.20 [facility] [address] [place] [address] [id number] [address] [place] [address] Apr, [facility] [address] [place] [id number] [address] [place] [id number] 02 Apr, 2015 Bronchitis J40 [facility] [address] [address] 09 Feb, 2015 Hyperlipemia E78.5 ; Carotid arterial disease I77.9 ; Tobacco use Z72.0 ; Hypertension I10 ; RBBB I45.10 and CVA (cerebral vascular accident) I63.9 [facility] [address] [address] 03 Feb, 2015 Status post CVA Z86.73 ; Dys function of right eustachian tube H69.81 and Essential hypertension I10 [facility] [address] [address] Dec, Encounter for immunization Z 23 [place] [address] [facility] [id number] [address] [place] [address] Oct, PVD (peripheral vascular dis ease) 443.9 and Weight loss 783.21 [place] [address] [place] [id number] [address] [place] [address] Oct, PVD (peripheral vascular dis ease) 443.9 and Weight loss 783.21 [place] [address] [address] Aug, Hyperlipidemia 272.4 ; Carot id arterial disease 447.9 ; Tobacco dependency 305.1 ; Hypertension 401.9 ; RBBB 426.4 and CVA (cerebral infarction) 434.91 [place] [address] [address] Aug, [address] [address] Aug, Pseudoaneurysm following pro cedure 997.[address] [address] July, Chest pain, unspecified 786. 50 ; [...] for prophylactic vaccination and inoculation, Influenza V04.81 [facility] [address] [id number] [address] [place] [address], [place] [address] 14 Jun, 2014 [facility] [address] [id number] [address] [place] [phone] Jun, [facility] [address] [id number] [address] [place] [address], [place] [address] May, [facility] [address] [id number] [address] [place] [phone] May, [facility] [address] [id number] [address] [place] [address], [place] [address] May, [facility] [address] [id number] [address] [place] [phone] May, [facility] [address] [id number] [address] [place] [phone] Mar, [facility] [address] [id number] [address] [place] [phone] Mar, [facility] [address] [id number] [address] [place] [phone] Mar, [facility] [address] [id number] [address] [place] [address] Mar, [facility] [address] [id number] [address] [place] [phone] Mar, [facility] [address] [id number] [address] [place] [phone] Mar, [facility] [address] [id number] [address] [place] [address] Mar, [facility] [address] [id number] [address] [place] [address] Mar, [facility] [address] [id number] [address] [place] [phone] Mar, [facility] [address] [id number] [address] [place] [address], [place] [address] Mar, [facility] [address] [id number] [address] [place] [address], [place] [address] Feb, [facility] [address] [id number] [address] [place] [address], [place] [address] Feb, [facility] [address] [id number] [address] [place] [address], [place] [address] Feb, [facility] [address] [id number] [address] [place] [address], [place] [address] Feb, [facility] [address] [id number] [address] [place] [address], [place] [address] Feb, [facility] [address] [id number] [address] [place] [address], [place] [address] Feb, [facility] [address] [id number] [address] [place] [address], [place] [address] Feb, [facility] [address] [id number] [address] [place] [address], [place] [address] Feb, [facility] [address] [id number] [address] [place] [address], [place] [address] Jan, [facility] [address] [id number] [address] [place] [address], [place] [address] Jan, [facility] [address] [id number] [address] [place] [address], [place] [address] Nov, [facility] [address] [id number] [address] [place] [address], [place] [address] Nov, [facility] [address] [id number] [address] [place] [address], [place] [address] Sep, [facility] [address] [id number] [address] [place] [address], [place] [address] Sep, [facility] [address] [id number] [address] [place] [address], [place] [address] Sep, [facility] [address] [id number] [address] [place] [address], [place] [address] Sep, [facility] [address] [id number] [address] [place] [address], [place] [address] Aug, [facility] [address] [id number] [address] [place] [address], [place] [address] Aug, [facility] [address] [id number] [address] [place] [address], [place] [address] Aug, [facility] [address] [id number] [address] [place] [address], [place] [address] Aug, [facility] [address] [id number] [address] [place] [address], [place] [address] Aug, [facility] [address] [id number] [address] [place] [address], [place] [address] Aug, [facility] [address] [id number] [address] [place] [address], [place] [address] July, [facility] [address] [id number] [address] [place] [address], [place] [address] July, [facility] [address] [id number] [address] [place] [address], [place] [address] July, [facility] [address] [id number] [address] [place] [address], [place] [address] July, [facility] [address] [id number] [address] [place] [address], [place] [address] Jun, [facility] [address] [id number] [address] [place] [address], [place] [address] Jun, [facility] [address] [id number] [address] [place] [address], [place] [address] Apr, [facility] [address] [id number] [address] [place] [address], [place] [address] Apr, [facility] [address] [id number] [address] [place] [address], [place] [address] Apr, [facility] [address] [id number] [address] [place] [address], [place] [address] Apr, [facility] [address] [id number] [address] [place] [address], [place] [address] Apr, [facility] [address] [id number] [address] [place] [address], [place] [address] Apr, [facility] [address] [id number] [address] [place] [address], [place] [address] Mar, [facility] [address] [id number] [address] [place] [address], [place] [address] Mar, [facility] [address] [id number] [address] [place] [address], [place] [address] Mar, [facility] [address] [id number] [address] [place] [address], [place] [address] Mar, [facility] [address] [id number] [address] [place] [address], [place] [address] Mar, [facility] [address] [id number] [address] [place] [address], [place] [address] Feb, [facility] [address] [id number] [address] [place] [address], [place] [address] Feb, [facility] [address] [id number] [address] [place] [address], [place] [address] Feb, [facility] [address] [id number] [address] [place] [address], [place] [address] Feb, [facility] [address] [id number] [address] [place] [address], [place] [address] Feb, [facility] [address] [id number] [address] [place] [address], [place] [address] Feb, [facility] [address] [id number] [address] [place] [address], [place] [address] 06 Feb, 2013 [facility] [address] [id number] [address] [place] [address], [place] [address] Feb, [facility] [address] [id number] [address] [place] [address], [place] [address] Feb, [facility] [address] [id number] [address] [place] [address], [place] [address] Feb, [facility] [address] [id number] [address] [place] [address], [place] [address] Feb, [facility] [address] [id number] [address] [place] [address], [place] [address] Feb, [facility] [address] [id number] [address] [place] [address], [place] [address] Jan, [facility] [address] [id number] [address] [place] [address], [place] [address] Jan, [facility] [address] [id number] [address] [place] [address], [place] [address] Jan, [facility] [address] [id number] [address] [place] [address], [place] [address] Jan, [facility] [address] [id number] [address] [place] [address], [place] [address] Jan, [facility] [address] [id number] [address] [place] [address], [place] [address] Jan, [facility] [address] [id number] [address] [place] [address], [place] [address] Jan, [facility] [address] [id number] [address] [place] [address], [place] [address] Jan, [facility] [address] [id number] [address] [place] [address], [place] [address] Jan, [facility] [address] [id number] [address] [place] [address], [place] [address] Jan, [facility] [address] [id number] [address] [place] [address], [place] [address] Jan, [facility] [address] [id number] [address] [place] [address], [place] [address] Jan, [facility] [address] [id number] [address] [place] [address], [place] [address] Jan, [facility] [address] [id number] [address] [place] [address], [place] [address] Jan, [facility] [address] [id number] [address] [place] [address], [place] [address] Jan, [facility] [address] [id number] [address] [place] [address], [place] [address] Dec, [facility] [address] [id number] [address] [place] [address], [place] [address] Dec, [facility] [address] [id number] [address] [place] [address], [place] [address] Dec, [facility] [address] [id number] [address] [place] [address], [place] [address] Dec, [facility] [address] [id number] [address] [place] [address], [place] [address] Oct, [facility] [address] [id number] [address] [place] [address], [place] [address] Oct, [facility] [address] [id number] [address] [place] [id number] Oct, [facility] [address] [id number] [address] [place] [id number] Sep, [facility] [address] [id number] [address] [place] [address], [place] [address] Aug, [facility] [address] [id number] [address] [place] [address], [place] [address] July, [facility] [address] [id number] [address] [place] [address], [place] [address] July, [facility] [address] [id number] [address] [place] [address], [place] [address] July, [facility] [address] [id number] [address] [place] [address], [place] [address] July, [facility] [address] [id number] [address] [place] [address], [place] [address] May, [facility] [address] [id number] [address] [place] [address], [place] [address] May, [facility] [address] [id number] [address] [place] [address], [place] [address] Mar, [facility] [address] [id number] [address] [place] [address], [place] [address] Mar, [facility] [address] [id number] [address] [place] [address], [place] [address] Mar, [facility] [address] [id number] [address] [place] [address], [place] [address] Feb, [facility] [address] [id number] [address] [place] [address], [place] [address] Feb, [facility] [address] [id number] [address] [place] [address], [place] [address] Feb, [facility] [address] [id number] [address] [place] [address], [place] [address] Feb, [facility] [address] [id number] [address] [place] [address], [place] [address] Feb, [facility] [address] [id number] [address] [place] [address], [place] [address] Feb, [facility] [address] [id number] [address] [place] [address], [place] [address] Jan, [facility] [address] [id number] [address] [place] [address], [place] [address] Jan, [facility] [address] [id number] [address] [place] [address], [place] [address] Jan, [facility] [address] [id number] [address] [place] [address], [place] [address] Jan, [facility] [address] [id number] [address] [place] [address], [place] [address] Jan, [facility] [address] [id number] [address] [place] [address], [place] [address] Jan, [facility] [address] [id number] [address] [place] [address], [place] [address] Jan, [facility] [address] [id number] [address] [place] [address], [place] [address] Jan, [facility] [address] [id number] [address] [place] [address], [place] [address] Dec, [facility] [address] [id number] [address] [place] [address], [place] [address] Dec, [facility] [address] [id number] [address] [place] [address], [place] [address] Dec, [facility] [address] [id number] [address] [place] [address], [place] [address] Dec, [facility] [address] [id number] [address] [place] [address], [place] [address] Oct, [facility] [address] [id number] [address] [place] [address], [place] [address] Sep, [facility] [address] [id number] [address] [place] [address], [place] [address] Sep, [facility] [address] [id number] [address] [place] [address], [place] [address] Sep, [facility] [address] [id number] [address] [place] [address], [place] [address] Sep, [facility] [address] [id number] [address] [place] [address], [place] [address] Jun, [facility] [address] [id number] [address] [place] [address], [place] [address] May, [facility] [address] [id number] [address] [place] [address], [place] [address] 14 Apr, 2011 [facility] [address] [id number] [address] [place] [address], [place] [address] Apr, [facility] [address] [id number] [address] [place] [address], [place] [address] Apr, [facility] [address] [id number] [address] [place] [address], [place] [address] Feb, [facility] [address] [id number] [address] [place] [address], [place] [address] Feb, [facility] [address] [id number] [address] [place] [address], [place] [address] Jan, [facility] [address] [id number] [address] [place] [address], [place] [address] Jan, [facility] [address] [id number] [address] [place] [address], [place] [address] Jan, [facility] [address] [id number] [address] [place] [address], [place] [address] 31 Feb, 2010 [facility] [address] [id number] [address] [place] [address], [place] [address] 30 Feb, 2010 [facility] [address] [id number] [address] [place] [address], [place] [address] 30 Feb, 2010 [facility] [address] [id number] [address] [place] [address], [place] [address] 30 Feb, 2010 [facility] [address] [id number] [address] [place] [address], [place] [address] 27 Feb, 2010 [facility] [address] [id number] [address] [place] [address], [place] [address] 23 Feb, 2010 [facility] [address] [id number] [address] [place] [address], [place] [address] 20 Feb, 2010 [facility] [address] [id number] [address] [place] [id number] Feb, [facility] [address] [id number] [address] [place] [phone] Feb, [facility] [address] [id number] [address] [place] [id number] Feb, [facility] [address] [id number] [address] [place] [id number] Jan, [facility] [address] [id number] [address] [place] [phone] Dec, [facility] [address] [id number] [address] [place] [phone] Nov, [facility] [address] [id number] [address] [place] [id number] Mar, [facility] [address] [id number] [address] [place] [phone] Jan, [facility] [address] [id number] [address] [place] [id number] Dec, [facility] [address] [id number] [address] [place] [id number] Dec, [facility] [address] [id number] [address] [place] [phone] Sep, [facility] [address] [id number] [address] [place] [phone] Jun, [facility] [address] [id number] [address] [place] [id number] Mar, [facility] [address] [id number] [address] [place] [id number] Jan, IMMUNIZATIONS No Known Immunizations SOCIAL HISTORY [...] Heart cath per Dr. Burton at [facility]- hypotension 08/08 Hospitalization History [facility] 07/27/16
--- OUTSIDE RECORDS SUMMARY | 2019-08-06 07:58 | XMS REPORT ---
Author Author Lavern HUGHES [facility] Address [address] [place] [address] Care Team Providers Care Seed And Fertilizer Specialist Name Role Phone DAY HUGHES Unavailable PROBLEMS Type Condition ICD9-CM Code [id number] Code Onset Dates Condition S tatus SNOMED Code Problem Cataracts, bilateral H26.9 Active 14103020 Problem CVA (cerebral vascular accident) I63.9 Active 527525415 Problem Hyperlipemia E78.5 Active 7780625 4 Problem Lymphocytosis D72.820 Active 466672 09 Problem Peripheral vascular disease, unspecified I73.9 Active 042178900 Problem Iron deficiency anemia due to chronic blood loss D 50.0 Active 986648385 Problem Thyroid nodule E04.1 Active 85779 5005 Problem Dysfunction of right eustachian tube H69.81 Active 33819995 Problem Post-surgical 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 A ctive 93995935 Problem 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 2755 81830 Problem Diverticulitis of intestine without perforation or abscess without bleeding, unspecified part of intestinal tract K57.92 Active 010614457 Problem Essential hypertension I10 Active 23403423 Problem Lung nodule, solitary R91.1 Active 194635779 Problem 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 of 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 Active [id number] ALLERGIES No Information ENCOUNTERS Encounter Location Date Diagnosis [facility] [address] [facility] [id number] [address] [place] [address] Oct, Seborrheic keratosis L82.1 [facility] [address] [facility] [id number] [address] [place] [address] Oct, [facility] [address] [facility] [id number] [address] [place] [address] Sep, [facility] [address] [facility] [id number] [address] [place] [address] Sep, Other fatigue R53.83 ; Aleida diasis B37.9 and Arthralgia, unspecified joint M25.50 [facility] [address] [facility] [id number] [address] [place] [address] Jun, Post-surgical 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 [facility] [address] [facility] [id number] [address] [place] [address] May, Post-surgical 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 and Peripheral vascular disease, unspecified I73.9 [facility] [address] [facility] [id number] [address] [place] [address] Mar, [facility] [address] [place] [id number] [place] [address] Mar, Post-surgical 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 [facility] [address] [address] [id number] [place] [address] Jan, Nodular thyroid disease E04. 1 ; Lung mass R91.8 ; Iron deficiency anemia due to chronic blood loss D50.0 ; Essential hypertension I10 and 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 of 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 [facility] [address] [place] [address] [id number] [address] [place] [address] [id number] Dec, Dental examination Z01.20 [facility] [address] [place] [id number] [address] [place] [address] Dec, Thyroid nodule E04.1 [facility] [address] [place] [id number] [address] [place] [address] Oct, Lung nodule, solitary R91.1 [facility] [address] [facility] [id number] [address] [place] [address] Oct, [facility] [address] [place] [id number] [place] [address] Oct, [facility] [address] [place] [id number] [address] [place] [address] Oct, [place] [address] [place] [id number] [address] [place] [address] Sep, [place] [address] [address] Aug, [place] [address] [place] [id number] [place] [address] July, Arthralgia, unspecified join t M25.50 ; Essential hypertension I10 ; Seborrheic keratosis L82.1 and LLQ abdominal pain R10.32 [place] [address] [address] Feb, Arthralgia, unspecified join t M25.50 [place] [address] [place] [id number] [place] [address] Feb, Arthralgia, unspecified join t M25.50 [place] [address] [address] Dec, Arthralgia, unspecified join t M25.50 [place] [address] [address] Dec, Right flank pain R10.9 ; Lef t foot pain M79.672 ; Arthralgia, unspecified joint M25.50 and Encounter for immunization Z23 [place] [address] [address] Dec, CVA (cerebral vascular accid ent) I63.9 [place] [address] [address] Dec, RUQ abdominal pain R10.11 [place] [address] [address] Dec, Right lower quadrant pain R1 0.31 ; Diverticulitis of intestine without perforation or abscess without bleeding, unspecified part of intestinal tract K57.92 and Internal hemorrhoids K64.8 [place] [address] [address] Nov, [facility] [address] [facility] [id number] [address] [place] [address] Oct, [facility] [address] [facility] [id number] [address] [place] [address] Aug, Iron deficiency anemia due t o chronic blood loss D50.0 [facility] [address] [facility] [id number] [address] [place] [address] Aug, Peripheral vascular disease, unspecified I73.9 and Colitis K52.9 [place] [address] [facility] [id number] [address] [place] [address] Aug, H/O: GI bleed Z87.19 [place] [address] [facility] [id number] [address] [place] [address] Aug, CVA (cerebral vascular accid ent) I63.9 [place] [address] [facility] [id number] [address] [place] [address] Aug, RUQ abdominal pain R10.11 [facility] [address] [facility] [id number] [address] [place] [address] July, RUQ abdominal pain R10.11 an d Lymphocytosis D72.820 [place] [address] [facility] [id number] [address] [place] [address] July, [facility] [address] [facility] [id number] [address] [place] [address] July, Colitis K52.9 [facility] [address] [id number] [place] [address] [id number] July, [facility] [address] [facility] [id number] [address] [place] [address] Jun, Right flank pain R10.9 [facility] [address] [facility] [id number] [address] [place] [address] May, Urinary tract infection with out hematuria, site unspecified N39.0 and Right flank pain R10.9 [facility] [address] [id number] [address] [place] [address] Feb, Acute non-recurrent maxillar y sinusitis J01.00 and Need for hepatitis C screening test Z11.59 [facility] [address] [id number] [address] [place] [phone] Jan, Dental examination Z01.20 [facility] [address] [id number] [place] [address] [id number] Dec, Dental examination Z01.20 [facility] [address] [id number] [place] [address] [phone] Dec, Dental examination Z01.20 [facility] [address] [id number] [address] [place] [address] Dec, [facility] [address] [id number] [address] [place] [address] Dec, [facility] [address] [id number] [place] [address] [id number] Dec, Dental examination Z01.20 [facility] [address] [id number] [address] [place] [address] Nov, [facility] [address] [id number] [place] [address] [phone] Nov, Dental examination Z01.20 [facility] [address] [id number] [address] [place] [address] Oct, Arthralgia, unspecified join t M25.50 and Essential hypertension I10 [facility] [address] [id number] [address] [place] [address] Oct, [facility] [address] [id number] [address] [place] [address] Sep, Bilateral otitis media, unsp ecified chronicity, unspecified otitis media type H66.93 [facility] [address] [id number] [address] [place] [address] [id number] Sep, Dental examination Z01.20 [facility] [address] [id number] [address] [place] [address] [id number] Aug, 2015 Dental examination V72.2 [facility] [address] [facility] [id number] [address] [place] [address] 14 Aug, 2015 Essential hypertension I10 a nd Muscle cramping R25.2 [facility] [address] [facility] [id number] [place] [address] 09 Aug, 2015 Tension-type headache, not i ntractable, unspecified chronicity pattern G44.209 ; Muscle cramping R25.2 and Right leg pain M79.604 [facility] [address] [id number] [address] [place] [address] [phone] July, Dental examination Z01.20 [facility] [address] [id number] [place] [address] [id number] July, Encounter for dental examina tion and cleaning without abnormal findings Z01.20 and Dental caries K02.9 [facility] [address] [id number] [place] [address] [id number] Jun, Encounter for dental examina tion Z01.20 [facility] [address] [place] [id number] [address] [place] [address] Apr, [facility] [address] [address] [id number] [address] [place] [address] 02 Apr, 2015 Bronchitis J40 [facility] [address] [place] [id number] [address] [place] [address] 09 Feb, 2015 Hyperlipemia E78.5 ; Carotid arterial disease I77.9 ; Tobacco use Z72.0 ; Hypertension I10 ; RBBB I45.10 and CVA (cerebral vascular accident) I63.9 [facility] [address] [facility] [id number] [address] [place] [address] Feb, Status post CVA Z86.73 ; Dys function of right eustachian tube H69.81 and Essential hypertension I10 [place] [address] [address] Dec, Encounter for immunization Z [address] [address] Oct, PVD (peripheral vascular dis ease) 443.9 and Weight loss 783.[address] [address] Oct, PVD (peripheral vascular dis ease) 443.9 and Weight loss 783.[address] [address] Aug, Hyperlipidemia 272.4 ; Carot id arterial disease 447.9 ; Tobacco dependency 305.1 ; Hypertension 401.9 ; RBBB 426.4 and CVA (cerebral infarction) 434.[address] [address] Aug, [address] [address] Aug, Pseudoaneurysm following pro cedure 997.[address] [address] July, Chest pain, unspecified 786. 50 ; [...] for prophylactic vaccination and inoculation, Influenza V04.81 [facility] [address] [id number] [address] [place] [address] Jun, [facility] [address] [id number] [address] [place] [address] Jun, [facility] [address] [id number] [address] [place] [address] May, [facility] [address] [id number] [address] [place] [address] May, [facility] [address] [id number] [address] [place] [address] May, [facility] [address] [id number] [address] [place] [address] May, [facility] [address] [id number] [address] [place] [address] Mar, [facility] [address] [id number] [address] [place] [address] Mar, [facility] [address] [id number] [address] [place] [address] Mar, [facility] [address] [id number] [address] [place] [address] Mar, [facility] [address] [id number] [address] [place] [address] Mar, [facility] [address] [id number] [address] [place] [address] Mar, [facility] [address] [facility] [id number] [address] [place] [address] Mar, [facility] [address] [facility] [id number] [address] [place] [address] Mar, [facility] [address] [id number] [address] [place] [address], [place] [address] Mar, [facility] [address] [id number] [address] [place] [address], [place] [address] Mar, [facility] [address] [id number] [address] [place] [address], [place] [address] Feb, [facility] [address] [id number] [address] [place] [address], [place] [address] Feb, [facility] [address] [id number] [address] [place] [address], [place] [address] Feb, [facility] [address] [id number] [address] [place] [address], [place] [address] Feb, [facility] [address] [id number] [address] [place] [address], [place] [address] Feb, [facility] [address] [id number] [address] [place] [address], [place] [address] Feb, [facility] [address] [id number] [address] [place] [address], [place] [address] Feb, [facility] [address] [id number] [address] [place] [address], [place] [address] Feb, [facility] [address] [id number] [address] [place] [address], [place] [address] Jan, [facility] [address] [id number] [address] [place] [address], [place] [address] Jan, [facility] [address] [id number] [address] [place] [address], [place] [address] Nov, [facility] [address] [id number] [address] [place] [address], [place] [address] Nov, [facility] [address] [id number] [address] [place] [address], [place] [address] Sep, [facility] [address] [id number] [address] [place] [address], [place] [address] Sep, [facility] [address] [id number] [address] [place] [address], [place] [address] Sep, [facility] [address] [id number] [address] [place] [address], [place] [address] Sep, [facility] [address] [id number] [address] [place] [address], [place] [address] Aug, [facility] [address] [id number] [address] [place] [address], [place] [address] Aug, [facility] [address] [id number] [address] [place] [address], [place] [address] Aug, [facility] [address] [id number] [address] [place] [address], [place] [address] Aug, [facility] [address] [id number] [address] [place] [address], [place] [address] Aug, [facility] [address] [id number] [address] [place] [address], [place] [address] Aug, [facility] [address] [id number] [address] [place] [address], [place] [address] July, [facility] [address] [id number] [address] [place] [address], [place] [address] July, [facility] [address] [id number] [address] [place] [address], [place] [address] July, [facility] [address] [id number] [address] [place] [address], [place] [address] July, [facility] [address] [id number] [address] [place] [address], [place] [address] Jun, [facility] [address] [id number] [address] [place] [address], [place] [address] Jun, [facility] [address] [id number] [address] [place] [address], [place] [address] Apr, [facility] [address] [id number] [address] [place] [address], [place] [address] Apr, [facility] [address] [id number] [address] [place] [address], [place] [address] Apr, [facility] [address] [id number] [address] [place] [address], [place] [address] Apr, [facility] [address] [id number] [address] [place] [address], [place] [address] Apr, [facility] [address] [id number] [address] [place] [address], [place] [address] Apr, [facility] [address] [id number] [address] [place] [address], [place] [address] Mar, [facility] [address] [id number] [address] [place] [address], [place] [address] Mar, [facility] [address] [id number] [address] [place] [address], [place] [address] Mar, [facility] [address] [id number] [address] [place] [address], [place] [address] Mar, [facility] [address] [id number] [address] [place] [address], [place] [address] Mar, [facility] [address] [id number] [address] [place] [address], [place] [address] Feb, [facility] [address] [id number] [address] [place] [address], [place] [address] 31 Feb, 2013 [facility] [address] [id number] [address] [place] [address], [place] [address] Feb, [facility] [address] [id number] [address] [place] [address], [place] [address] Feb, [facility] [address] [id number] [address] [place] [address], [place] [address] Feb, [facility] [address] [id number] [address] [place] [address], [place] [address] Feb, [facility] [address] [id number] [address] [place] [address], [place] [address] Feb, [facility] [address] [id number] [address] [place] [address], [place] [address] Feb, [facility] [address] [id number] [address] [place] [address], [place] [address] Feb, [facility] [address] [id number] [address] [place] [address], [place] [address] Feb, [facility] [address] [id number] [address] [place] [address], [place] [address] Feb, [facility] [address] [id number] [address] [place] [address], [place] [address] Feb, [facility] [address] [id number] [address] [place] [address], [place] [address] Jan, [facility] [address] [id number] [address] [place] [address], [place] [address] Jan, [facility] [address] [id number] [address] [place] [address], [place] [address] Jan, [facility] [address] [id number] [address] [place] [address], [place] [address] Jan, [facility] [address] [id number] [address] [place] [address], [place] [address] Jan, [facility] [address] [id number] [address] [place] [address] Jan, [facility] [address] [id number] [address] [place] [address], [place] [address] Jan, [facility] [address] [id number] [address] [place] [address], [place] [address] Jan, [facility] [address] [id number] [address] [place] [address], [place] [address] Jan, [facility] [address] [id number] [address] [place] [address], [place] [address] Jan, [facility] [address] [id number] [address] [place] [address], [place] [address] Jan, [facility] [address] [id number] [address] [place] [address], [place] [address] Jan, [facility] [address] [id number] [address] [place] [address], [place] [address] Jan, [facility] [address] [id number] [address] [place] [address], [place] [address] Jan, [facility] [address] [id number] [address] [place] [address], [place] [address] Jan, [facility] [address] [id number] [address] [place] [address], [place] [address] Dec, [facility] [address] [id number] [address] [place] [address], [place] [address] Dec, [facility] [address] [id number] [address] [place] [address], [place] [address] Dec, [facility] [address] [id number] [address] [place] [address], [place] [address] Dec, [facility] [address] [id number] [address] [place] [address], [place] [address] Oct, [facility] [address] [id number] [address] [place] [address], [place] [address] Oct, [facility] [address] [id number] [address] [place] [address], [place] [address] Oct, [facility] [address] [id number] [address] [place] [address], [place] [address] Sep, [facility] [address] [id number] [address] [place] [address], [place] [address] Aug, [facility] [address] [id number] [address] [place] [address], [place] [address] July, [facility] [address] [id number] [address] [place] [address], [place] [address] July, [facility] [address] [id number] [address] [place] [address], [place] [address] July, [facility] [address] [id number] [address] [place] [address], [place] [address] July, [facility] [address] [id number] [address] [place] [address], [place] [address] May, [facility] [address] [id number] [address] [place] [address], [place] [address] May, [facility] [address] [id number] [address] [place] [address], [place] [address] Mar, [facility] [address] [id number] [address] [place] [address], [place] [address] Mar, [facility] [address] [id number] [address] [place] [address], [place] [address] Mar, [facility] [address] [id number] [address] [place] [address], [place] [address] Feb, [facility] [address] [id number] [address] [place] [address], [place] [address] Feb, [facility] [address] [id number] [address] [place] [address], [place] [address] Feb, [facility] [address] [id number] [address] [place] [address], [place] [address] Feb, [facility] [address] [id number] [address] [place] [address], [place] [address] Feb, [facility] [address] [id number] [address] [place] [address], [place] [address] Feb, [facility] [address] [id number] [address] [place] [address], [place] [address] Jan, [facility] [address] [id number] [address] [place] [address], [place] [address] Jan, [facility] [address] [id number] [address] [place] [address], [place] [address] Jan, [facility] [address] [id number] [address] [place] [address], [place] [address] Jan, [facility] [facility] [address] [id number] [address] [place] [address], [place] [address] Jan, [facility] [address] [id number] [address] [place] [address], [place] [address] Jan, [facility] [address] [id number] [address] [place] [address], [place] [address] Jan, [facility] [address] [id number] [address] [place] [address], [place] [address] Jan, [facility] [address] [id number] [address] [place] [address], [place] [address] Dec, [facility] [address] [id number] [address] [place] [address], [place] [address] Dec, [facility] [address] [id number] [address] [place] [address], [place] [address] Dec, [facility] [address] [id number] [address] [place] [address], [place] [address] Dec, [facility] [address] [id number] [address] [place] [address], [place] [address] Oct, [facility] [address] [id number] [address] [place] [address], [place] [address] Sep, [facility] [address] [id number] [address] [place] [address], [place] [address] Sep, [facility] [address] [id number] [address] [place] [address], [place] [address] Sep, [facility] [address] [id number] [address] [place] [address], [place] [address] Sep, [facility] [address] [id number] [address] [place] [address], [place] [address] 10 Jun, 2011 [facility] [address] [id number] [address] [place] [address], [place] [address] May, [facility] [address] [id number] [address] [place] [address], [place] [address] 14 Apr, 2011 [facility] [address] [id number] [address] [place] [address], [place] [address] 09 Apr, 2011 [facility] [address] [id number] [address] [place] [address], [place] [address] Apr, [facility] [address] [id number] [address] [place] [address], [place] [address] Feb, [facility] [address] [id number] [address] [place] [address], [place] [address] Feb, [facility] [address] [id number] [address] [place] [address], [place] [address] Jan, [facility] [address] [id number] [address] [place] [address], [place] [address] Jan, [facility] [address] [id number] [address] [place] [address], [place] [address] Jan, [facility] [address] [id number] [address] [place] [address], [place] [address] 31 Feb, 2010 [facility] [address] [id number] [address] [place] [address], [place] [address] 30 Feb, 2010 [facility] [address] [id number] [address] [place] [address], [place] [address] 30 Feb, 2010 [facility] [address] [id number] [address] [place] [address], [place] [address] 30 Feb, 2010 [facility] [address] [id number] [address] [place] [address], [place] [address] 27 Feb, 2010 [facility] [address] [id number] [address] [place] [address], [place] [address] Feb, [facility] [address] [id number] [address] [place] [address] Feb, [facility] [address] [id number] [address] [place] [address] Feb, [facility] [address] [id number] [address] [place] [address] Feb, [facility] [address] [id number] [address] [place] [address] Feb, [facility] [address] [id number] [address] [place] [address] Jan, [facility] [address] [id number] [address] [place] [address] 24 Dec, 2009 [facility] [address] [id number] [address] [place] [address] Nov, [facility] [address] [id number] [address] [place] [address] Mar, [facility] [address] [id number] [address] [place] [address] Jan, [facility] [address] [id number] [address] [place] [address] 15 Dec, 2008 [facility] [address] [id number] [address] [place] [address] 15 Dec, 2008 [facility] [address] [id number] [address] [place] [address] Sep, [facility] [address] [id number] [address] [place] [address] Jun, [facility] [address] [id number] [address] [place] [address] Mar, [facility] [address] [id number] [address] [place] [address] Jan, IMMUNIZATIONS No Known Immunizations SOCIAL HISTORY Never Assessed REASON FOR VISIT PLAN OF CARE VITAL SIGNS Height 57 in 2014-03-12 Weight 148 lbs 2014-03-12 Temperature 97.7 degrees Fahrenheit 2014-03-12 Heart Rate 70 bpm 2014-03-12 Respiratory Rate 16 2014-03-12 Blood pressure systolic 142 mmHg 2014-03-12 Blood pressure diastolic 80 mmHg 2014-03-12 MEDICATIONS No Known Medications RESULTS No Results PROCEDURES Procedure Date Ordered Result Body Site DESTRUCT LESION, 1-Mar 12, 2014 INSTRUCTIONS MEDICATIONS ADMINISTERED No Known Medications [...] Heart cath per Dr. Burton at via [facility]- hypotension 08/08 Hospitalization History Hematochezia-[facility] 07/27/16
--- OUTSIDE RECORDS SUMMARY | 2019-08-06 07:59 | XMS REPORT ---
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 Name Role Phone DAY HUGHES Unavailable PROBLEMS Type Condition ICD9-CM Code CSS44-OW Code Onset Dates Condition S tatus SNOMED Code Problem Cataracts, bilateral H26.9 Active 36726538 Problem CVA (cerebral vascular accident) I63.9 Active 255361357 Problem Hyperlipemia E78.5 Active 2486756 4 Problem Lymphocytosis D72.820 Active 774889 09 Problem Peripheral vascular disease, unspecified I73.9 Active 807032932 Problem Iron deficiency anemia due to chronic blood loss D 50.0 Active 610882348 Problem Thyroid nodule E04.1 Active 64340 5005 Problem Dysfunction of right eustachian tube H69.81 Active 20642164 Problem Post-surgical 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 A ctive 78957263 Problem 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 2755 75880 Problem Diverticulitis of intestine without perforation or abscess without bleeding, unspecified part of intestinal tract K57.92 Active 017511669 Problem Essential hypertension I10 Active 93127521 Problem Lung nodule, solitary R91.1 Active 239428521 Problem 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 of 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 Active [id number] ALLERGIES No Information ENCOUNTERS Encounter Location Date Diagnosis [facility] [address] [facility] [id number] [address] [place] [address] Oct, [facility] [address] [facility] [id number] [address] [place] [address] Sep, [facility] [address] [facility] [id number] [address] [place] [address] Sep, Other fatigue R53.83 ; Aleida diasis B37.9 and Arthralgia, unspecified joint M25.50 [facility] [address] [facility] [id number] [address] [place] [address] Jun, Post-surgical 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 [facility] [address] [facility] [id number] [address] [place] [address] May, Post-surgical 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 and Peripheral vascular disease, unspecified I73.9 [facility] [address] [facility] [id number] [address] [place] [address] Mar, [facility] [address] [facility] [id number] [address] [place] [address] Mar, Post-surgical 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 [facility] [address] [place] [id number] [place] [address] Jan, Nodular thyroid disease E04. 1 ; Lung mass R91.8 ; Iron deficiency anemia due to chronic blood loss D50.0 ; Essential hypertension I10 and 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 of 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 [facility] [address] [place] [address] [id number] [address] [place] [address] [id number] Dec, Dental examination Z01.20 [facility] [address] [address] Dec, Thyroid nodule E04.1 [facility] [address] [place] [id number] [address] [place] [address] Oct, Lung nodule, solitary R91.1 [facility] [address] [facility] [id number] [address] [place] [address] Oct, [facility] [address] [facility] [id number] [address] [place] [address] Oct, [facility] [address] [place] [id number] [address] [place] [address] Oct, [facility] [address] [place] [id number] [address] [place] [address] Sep, [facility] [address] [place] [address] Aug, [place] [address] [address] July, Arthralgia, unspecified join t M25.50 ; Essential hypertension I10 ; Seborrheic keratosis L82.1 and LLQ abdominal pain R10.32 [place] [address] [address] Feb, Arthralgia, unspecified join t M25.50 [place] [address] [place] [id number] [place] [address] Feb, Arthralgia, unspecified join t M25.50 [place] [address] [address] Dec, Arthralgia, unspecified join t M25.50 [place] [address] [address] Dec, Right flank pain R10.9 ; Lef t foot pain M79.672 ; Arthralgia, unspecified joint M25.50 and Encounter for immunization Z23 [place] [address] [address] Dec, CVA (cerebral vascular accid ent) I63.9 [place] [address] [address] Dec, RUQ abdominal pain R10.11 [place] [address] [place] [id number] [place] [address] Dec, Right lower quadrant pain R1 0.31 ; Diverticulitis of intestine without perforation or abscess without bleeding, unspecified part of intestinal tract K57.92 and Internal hemorrhoids K64.8 [place] [address] [place] [id number] [address] [place] [address] Nov, [place] [address] [address] Oct, [place] [address] [place] [id number] [address] [place] [address] Aug, Iron deficiency anemia due t o chronic blood loss D50.0 [place] [address] [place] [id number] [address] [place] [address] Aug, Peripheral vascular disease, unspecified I73.9 and Colitis K52.9 [place] [address] [place] [id number] [address] [place] [address] 14 Aug, 2016 H/O: GI bleed Z87.19 [place] [address] [place] [id number] [address] [place] [address] 07 Aug, 2016 CVA (cerebral vascular accid ent) I63.9 [place] [address] [place] [id number] [address] [place] [address] Aug, RUQ abdominal pain R10.11 [place] [address] [place] [id number] [address] [place] [address] July, RUQ abdominal pain R10.11 an d Lymphocytosis D72.820 [place] [address] [place] [id number] [address] [place] [address] July, [place] [address] [place] [id number] [address] [place] [address] July, Colitis K52.9 [facility] [address] [place] [id number] [place] [address] [id number] July, [place] [address] [facility] [id number] [address] [place] [address] Jun, Right flank pain R10.9 [place] [address] [place] [id number] [address] [place] [address] May, Urinary tract infection with out hematuria, site unspecified N39.0 and Right flank pain R10.9 [place] [address] [facility] [id number] [address] [place] [address] Feb, Acute non-recurrent maxillar y sinusitis J01.00 and Need for hepatitis C screening test Z11.59 [facility] [address] [id number] [address] [place] [address] [id number] Jan, Dental examination Z01.20 [facility] [address] [id number] [address] [place] [address] [id number] Dec, Dental examination Z01.20 [facility] [address] [id number] [place] [address] [id number] Dec, Dental examination Z01.20 [facility] [address] [id number] [address] [place] [address] Dec, [facility] [address] [id number] [address] [place] [address] Dec, [facility] [address] [id number] [place] [address] [id number] Dec, Dental examination Z01.20 [facility] [address] [id number] [address] [place] [address] Nov, [facility] [address] [id number] [place] [address] [id number] Nov, Dental examination Z01.20 [facility] [address] [id number] [address] [place] [address] Oct, Arthralgia, unspecified join t M25.50 and Essential hypertension I10 [facility] [address] [id number] [address] [place] [address] Oct, [facility] [address] [id number] [address] [place] [address] Sep, Bilateral otitis media, unsp ecified chronicity, unspecified otitis media type H66.93 [facility] [address] [id number] [address] [place] [address] [id number] Sep, Dental examination Z01.20 [facility] [address] [id number] [address] [place] [address] [id number] 16 Aug, 2015 Dental examination V72.2 [facility] [address] [place] [id number] [address] [place] [address] 14 Aug, 2015 Essential hypertension I10 a nd Muscle cramping R25.2 [facility] [address] [place] [id number] [place] [address] 09 Aug, 2015 Tension-type headache, not i ntractable, unspecified chronicity pattern G44.209 ; Muscle cramping R25.2 and Right leg pain M79.604 [facility] [id number] [place] [address] [id number] July, Dental examination Z01.20 [facility] [address] [id number] July, Encounter for dental examina tion and cleaning without abnormal findings Z01.20 and Dental caries K02.9 [facility] [address] [id number] Jun, Encounter for dental examina tion Z01.20 [facility] [address] [place] [id number] [address] [place] [address] Apr, [facility] [address] [place] [id number] [address] [place] [address] 02 Apr, 2015 Bronchitis J40 [facility] [address] [address] 09 Feb, 2015 Hyperlipemia E78.5 ; Carotid arterial disease I77.9 ; Tobacco use Z72.0 ; Hypertension I10 ; RBBB I45.10 and CVA (cerebral vascular accident) I63.9 [facility] [address] [address] 03 Feb, 2015 Status post CVA Z86.73 ; Dys function of right eustachian tube H69.81 and Essential hypertension I10 [facility] [address] [address] Dec, Encounter for immunization Z 23 [place] [address] [facility] [id number] [address] [place] [address] Oct, PVD (peripheral vascular dis ease) 443.9 and Weight loss 783.21 [place] [address] [place] [id number] [address] [place] [address] Oct, PVD (peripheral vascular dis ease) 443.9 and Weight loss 783.21 [place] [address] [address] Aug, Hyperlipidemia 272.4 ; Carot id arterial disease 447.9 ; Tobacco dependency 305.1 ; Hypertension 401.9 ; RBBB 426.4 and CVA (cerebral infarction) 434.91 [place] [address] [address] Aug, [address] [address] Aug, Pseudoaneurysm following pro cedure 997.[address] [address] July, Chest pain, unspecified 786. 50 ; [...] for prophylactic vaccination and inoculation, Influenza V04.81 [facility] [address] [id number] [address] [place] [address], [place] [address] 14 Jun, 2014 [facility] [address] [id number] [address] [place] [address] Jun, [facility] [address] [id number] [address] [place] [address], [place] [address] May, [facility] [address] [id number] [address] [place] [phone] May, [facility] [address] [id number] [address] [place] [address], [place] [address] May, [facility] [address] [id number] [address] [place] [address] May, [facility] [address] [id number] [address] [place] [address] Mar, [facility] [address] [id number] [address] [place] [address] Mar, [facility] [address] [id number] [address] [place] [address] Mar, [facility] [address] [id number] [address] [place] [address] Mar, [facility] [address] [id number] [address] [place] [address] Mar, [facility] [address] [id number] [address] [place] [address] Mar, [facility] [address] [id number] [address] [place] [address] Mar, [facility] [address] [id number] [address] [place] [address] Mar, [facility] [address] [id number] [address] [place] [address] Mar, [facility] [address] [id number] [address] [place] [address], [place] [address] Mar, [facility] [address] [id number] [address] [place] [address], [place] [address] Feb, [facility] [address] [id number] [address] [place] [address], [place] [address] Feb, [facility] [address] [id number] [address] [place] [address], [place] [address] Feb, [facility] [address] [id number] [address] [place] [address], [place] [address] Feb, [facility] [address] [id number] [address] [place] [address], [place] [address] Feb, [facility] [address] [id number] [address] [place] [address], [place] [address] Feb, [facility] [address] [id number] [address] [place] [address], [place] [address] Feb, [facility] [address] [id number] [address] [place] [address], [place] [address] Feb, [facility] [address] [id number] [address] [place] [address], [place] [address] Jan, [facility] [address] [id number] [address] [place] [address], [place] [address] Jan, [facility] [address] [id number] [address] [place] [address], [place] [address] Nov, [facility] [address] [id number] [address] [place] [address], [place] [address] Nov, [facility] [address] [id number] [address] [place] [address], [place] [address] Sep, [facility] [address] [id number] [address] [place] [address], [place] [address] Sep, [facility] [address] [id number] [address] [place] [address], [place] [address] Sep, [facility] [address] [id number] [address] [place] [address], [place] [address] Sep, [facility] [address] [id number] [address] [place] [address], [place] [address] Aug, [facility] [address] [id number] [address] [place] [address], [place] [address] Aug, [facility] [address] [id number] [address] [place] [address], [place] [address] Aug, [facility] [address] [id number] [address] [place] [address], [place] [address] Aug, [facility] [address] [id number] [address] [place] [address], [place] [address] Aug, [facility] [address] [id number] [address] [place] [address], [place] [address] Aug, [facility] [address] [id number] [address] [place] [address], [place] [address] July, [facility] [address] [id number] [address] [place] [address], [place] [address] July, [facility] [address] [id number] [address] [place] [address], [place] [address] July, [facility] [address] [id number] [address] [place] [address], [place] [address] July, [facility] [address] [id number] [address] [place] [address], [place] [address] Jun, [facility] [address] [id number] [address] [place] [address], [place] [address] Jun, [facility] [address] [id number] [address] [place] [address], [place] [address] Apr, [facility] [address] [id number] [address] [place] [address], [place] [address] Apr, [facility] [address] [id number] [address] [place] [address], [place] [address] Apr, [facility] [address] [id number] [address] [place] [address], [place] [address] Apr, [facility] [address] [id number] [address] [place] [address], [place] [address] Apr, [facility] [address] [id number] [address] [place] [address], [place] [address] Apr, [facility] [address] [id number] [address] [place] [address], [place] [address] Mar, [facility] [address] [id number] [address] [place] [address], [place] [address] Mar, [facility] [address] [id number] [address] [place] [address], [place] [address] Mar, [facility] [address] [id number] [address] [place] [address], [place] [address] Mar, [facility] [address] [id number] [address] [place] [address], [place] [address] Mar, [facility] [address] [id number] [address] [place] [address], [place] [address] Feb, [facility] [address] [id number] [address] [place] [address], [place] [address] Feb, [facility] [address] [id number] [address] [place] [address], [place] [address] Feb, [facility] [address] [id number] [address] [place] [address], [place] [address] Feb, [facility] [address] [id number] [address] [place] [address], [place] [address] Feb, [facility] [address] [id number] [address] [place] [address], [place] [address] Feb, [facility] [address] [id number] [address] [place] [address], [place] [address] 06 Feb, 2013 [facility] [address] [id number] [address] [place] [address], [place] [address] Feb, [facility] [address] [id number] [address] [place] [address], [place] [address] Feb, [facility] [address] [id number] [address] [place] [address], [place] [address] Feb, [facility] [address] [id number] [address] [place] [address], [place] [address] Feb, [facility] [address] [id number] [address] [place] [address], [place] [address] Feb, [facility] [address] [id number] [address] [place] [address], [place] [address] Jan, [facility] [address] [id number] [address] [place] [address], [place] [address] Jan, [facility] [address] [id number] [address] [place] [address], [place] [address] Jan, [facility] [address] [id number] [address] [place] [address], [place] [address] Jan, [facility] [address] [id number] [address] [place] [address], [place] [address] Jan, [facility] [address] [id number] [address] [place] [address], [place] [address] Jan, [facility] [address] [id number] [address] [place] [address], [place] [address] Jan, [facility] [address] [id number] [address] [place] [address], [place] [address] Jan, [facility] [address] [id number] [address] [place] [address], [place] [address] Jan, [facility] [address] [id number] [address] [place] [address], [place] [address] Jan, [facility] [address] [id number] [address] [place] [address], [place] [address] Jan, [facility] [address] [id number] [address] [place] [address], [place] [address] Jan, [facility] [address] [id number] [address] [place] [address], [place] [address] Jan, [facility] [address] [id number] [address] [place] [address], [place] [address] Jan, [facility] [address] [id number] [address] [place] [address], [place] [address] Jan, [facility] [address] [id number] [address] [place] [address], [place] [address] Dec, [facility] [address] [id number] [address] [place] [address], [place] [address] Dec, [facility] [address] [id number] [address] [place] [address], [place] [address] Dec, [facility] [address] [id number] [address] [place] [address], [place] [address] Dec, [facility] [address] [id number] [address] [place] [address], [place] [address] Oct, [facility] [address] [id number] [address] [place] [address], [place] [address] Oct, [facility] [address] [id number] [address] [place] [address] Oct, [facility] [address] [id number] [address] [place] [id number] Sep, [facility] [address] [id number] [address] [place] [address], [place] [address] Aug, [facility] [address] [id number] [address] [place] [address], [place] [address] July, [facility] [address] [id number] [address] [place] [address], [place] [address] July, [facility] [address] [id number] [address] [place] [address], [place] [address] July, [facility] [address] [id number] [address] [place] [address], [place] [address] July, [facility] [address] [id number] [address] [place] [address], [place] [address] May, [facility] [address] [id number] [address] [place] [address], [place] [address] May, [facility] [address] [id number] [address] [place] [address], [place] [address] Mar, [facility] [address] [id number] [address] [place] [address], [place] [address] Mar, [facility] [address] [id number] [address] [place] [address], [place] [address] Mar, [facility] [address] [id number] [address] [place] [address], [place] [address] Feb, [facility] [address] [id number] [address] [place] [address], [place] [address] Feb, [facility] [address] [id number] [address] [place] [address], [place] [address] Feb, [facility] [address] [id number] [address] [place] [address], [place] [address] Feb, [facility] [address] [id number] [address] [place] [address], [place] [address] Feb, [facility] [address] [id number] [address] [place] [address], [place] [address] Feb, [facility] [address] [id number] [address] [place] [address], [place] [address] Jan, [facility] [address] [id number] [address] [place] [address], [place] [address] Jan, [facility] [address] [id number] [address] [place] [address], [place] [address] Jan, [facility] [address] [id number] [address] [place] [address], [place] [address] Jan, [facility] [address] [id number] [address] [place] [address], [place] [address] Jan, [facility] [address] [id number] [address] [place] [address], [place] [address] Jan, [facility] [address] [id number] [address] [place] [address], [place] [address] Jan, [facility] [address] [id number] [address] [place] [address], [place] [address] Jan, [facility] [address] [id number] [address] [place] [address], [place] [address] Dec, [facility] [address] [id number] [address] [place] [address], [place] [address] Dec, [facility] [address] [id number] [address] [place] [address], [place] [address] Dec, [facility] [address] [id number] [address] [place] [address], [place] [address] Dec, [facility] [address] [id number] [address] [place] [address], [place] [address] Oct, [facility] [address] [id number] [address] [place] [address], [place] [address] Sep, [facility] [address] [id number] [address] [place] [address], [place] [address] Sep, [facility] [address] [id number] [address] [place] [address], [place] [address] Sep, [facility] [address] [id number] [address] [place] [address], [place] [address] Sep, [facility] [address] [id number] [address] [place] [address], [place] [address] Jun, [facility] [address] [id number] [address] [place] [address], [place] [address] May, [facility] [address] [id number] [address] [place] [address], [place] [address] 14 Apr, 2011 [facility] [address] [id number] [address] [place] [address], [place] [address] Apr, [facility] [address] [id number] [address] [place] [address], [place] [address] Apr, [facility] [address] [id number] [address] [place] [address], [place] [address] Feb, [facility] [address] [id number] [address] [place] [address], [place] [address] Feb, [facility] [address] [id number] [address] [place] [address], [place] [address] Jan, [facility] [address] [id number] [address] [place] [address], [place] [address] Jan, [facility] [address] [id number] [address] [place] [address], [place] [address] Jan, [facility] [address] [id number] [address] [place] [address], [place] [address] 31 Feb, 2010 [facility] [address] [id number] [address] [place] [address], [place] [address] 30 Feb, 2010 [facility] [address] [id number] [address] [place] [address], [place] [address] 30 Feb, 2010 [facility] [address] [id number] [address] [place] [address], [place] [address] 30 Feb, 2010 [facility] [address] [id number] [address] [place] [address], [place] [address] 27 Feb, 2010 [facility] [address] [id number] [address] [place] [address], [place] [address] 23 Feb, 2010 [facility] [address] [id number] [address] [place] [address], [place] [address] 20 Feb, 2010 [facility] [address] [id number] [address] [place] [address] Feb, [facility] [address] [id number] [address] [place] [address] Feb, [facility] [address] [id number] [address] [place] [address] Feb, [facility] [address] [id number] [address] [place] [address] Jan, [facility] [address] [id number] [address] [place] [address] Dec, [facility] [address] [id number] [address] [place] [address] Nov, [facility] [address] [id number] [address] [place] [address] Mar, [facility] [address] [id number] [address] [place] [address] Jan, [facility] [address] [id number] [address] [place] [address] Dec, [facility] [address] [id number] [address] [place] [address] Dec, [facility] [address] [id number] [address] [place] [address] Sep, [facility] [address] [id number] [address] [place] [address] Jun, [facility] [address] [id number] [address] [place] [address] Mar, [facility] [address] [id number] [address] [place] [address] Jan, IMMUNIZATIONS No Known Immunizations SOCIAL HISTORY [...] Heart cath per [facility]. Burton at [facility]- hypotension 08/08 Hospitalization History Hematochezia-[facility] 07/27/16
--- OUTSIDE RECORDS SUMMARY | 2019-08-06 07:59 | XMS REPORT ---
Author Author Lavern HUGHES [facility] Address [address] [place] [address] Care Team Providers Care Printed Circuit Boards Inspector Name Role Phone DAY HUGHES Unavailable PROBLEMS Type Condition ICD9-CM Code DEL32-[place] Code Onset Dates Condition S tatus SNOMED Code Problem Cataracts, bilateral H26.9 Active 27713565 Problem CVA (cerebral vascular accident) I63.9 Active 703410898 Problem Hyperlipemia E78.5 Active 4728152 4 Problem Lymphocytosis D72.820 Active 304502 09 Problem Peripheral vascular disease, unspecified I73.9 Active 405895365 Problem Iron deficiency anemia due to chronic blood loss D 50.0 Active 416036215 Problem Thyroid nodule E04.1 Active 23446 5005 Problem Dysfunction of right eustachian tube H69.81 Active 80565531 Problem Post-surgical 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 A ctive 98706198 Problem 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 2755 24673 Problem Diverticulitis of intestine without perforation or abscess without bleeding, unspecified part of intestinal tract K57.92 Active 789486229 Problem Essential hypertension I10 Active 14100030 Problem Lung nodule, solitary R91.1 Active 031021987 Problem 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 of 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 Active [id number] ALLERGIES No Information ENCOUNTERS Encounter Location Date Diagnosis [facility] [address] [facility] [id number] [address] [place] [address] Sep, [facility] [address] [facility] [id number] [address] [place] [address] Jun, Post-surgical 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 [facility] [address] [facility] [id number] [address] [place] [address] May, Post-surgical 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 and Peripheral vascular disease, unspecified I73.9 [facility] [address] [facility] [id number] [address] [place] [address] Mar, [facility] [address] [facility] [id number] [place] [address] Mar, Post-surgical 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 [facility] [address] [facility] [id number] [address] [place] [address] Jan, Nodular thyroid disease E04. 1 ; Lung mass R91.8 ; Iron deficiency anemia due to chronic blood loss D50.0 ; Essential hypertension I10 and 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 of 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 [facility] [address] [id number] [address] [place] [id number] Dec, Dental examination Z01.20 [facility] [address] [facility] [id number] [address] [place] [address] Dec, Thyroid nodule E04.1 [facility] [address] [facility] [id number] [address] [place] [address] Oct, Lung nodule, solitary R91.1 [facility] [address] [facility] [id number] [address] [place] [address] Oct, [facility] [address] [place] [id number] [place] [address] Oct, [facility] [address] [facility] [id number] [address] [place] [address] Oct, [facility] [address] [place] [id number] [address] [place] [address] Sep, [facility] [address] [facility] [id number] [address] [place] [address] Aug, [facility] [address] [place] [id number] [address] [place] [address] July, Arthralgia, unspecified join t M25.50 ; Essential hypertension I10 ; Seborrheic keratosis L82.1 and LLQ abdominal pain R10.32 [place] [address] [place] [id number] [address] [place] [address] Feb, Arthralgia, unspecified join t M25.50 [place] [address] [place] [id number] [address] [place] [address] Feb, Arthralgia, unspecified join t M25.50 [place] [address] [place] [id number] [address] [place] [address] Dec, Arthralgia, unspecified join t M25.50 [place] [address] [place] [id number] [place] [address] Dec, Right flank pain R10.9 ; Lef t foot pain M79.672 ; Arthralgia, unspecified joint M25.50 and Encounter for immunization Z23 [place] [address] [address] Dec, CVA (cerebral vascular accid ent) I63.9 [place] [address] [address] Dec, RUQ abdominal pain R10.11 [place] [address] [address] Dec, Right lower quadrant pain R1 0.31 ; Diverticulitis of intestine without perforation or abscess without bleeding, unspecified part of intestinal tract K57.92 and Internal hemorrhoids K64.8 [place] [address] [place] [address] Nov, [place] [address] [place] [id number] [address] [place] [address] Oct, [place] [address] [address] Aug, Iron deficiency anemia due t o chronic blood loss D50.0 [place] [address] [place] [id number] [place] [address] Aug, Peripheral vascular disease, unspecified I73.[address] [facility] [address] [facility] [id number] [address] [place] [address] 14 Aug, 2016 H/O: GI bleed Z87.19 [facility] [address] [facility] [id number] [address] [place] [address] 07 Aug, 2016 CVA (cerebral vascular accid ent) I63.9 [facility] [address] [facility] [id number] [address] [place] [address] 01 Aug, 2016 RUQ abdominal pain R10.11 [place] [address] [facility] [id number] [address] [place] [address] July, RUQ abdominal pain R10.11 an d Lymphocytosis D72.820 [place] [address] [place] [id number] [address] [place] [address] July, [facility] [address] [place] [id number] [address] [place] [address] July, Colitis K52.9 [facility] [address] [place] [id number] [place] [id number] July, [facility] [address] [place] [id number] [address] [place] [address] Jun, Right flank pain R10.9 [facility] [address] [place] [id number] [address] [place] [address] May, Urinary tract infection with out hematuria, site unspecified N39.0 and Right flank pain R10.9 [facility] [address] [facility] [id number] [address] [place] [address] Feb, Acute non-recurrent maxillar y sinusitis J01.00 and Need for hepatitis C screening test Z11.59 [facility] [address] [id number] [address] [place] [address] [phone] Jan, Dental examination Z01.20 [facility] [address] [id number] [address] [place] [id number] Dec, Dental examination Z01.20 [facility] [address] [id number] [address] [place] [id number] Dec, Dental examination Z01.20 [facility] [address] [id number] [address] [place] [address] Dec, [facility] [address] [id number] [address] [place] [address] Dec, [facility] [address] [id number] [address] [place] [phone] Dec, Dental examination Z01.20 [facility] [address] [id number] [address] [place] [address] Nov, [facility] [address] [id number] [address] [place] [address] [id number] Nov, Dental examination Z01.20 [facility] [address] [id number] [address] [place] [address] Oct, Arthralgia, unspecified join t M25.50 and Essential hypertension I10 [facility] [address] [id number] [address] [place] [address] Oct, [facility] [address] [facility] [id number] [address] [place] [address] Sep, Bilateral otitis media, unsp ecified chronicity, unspecified otitis media type H66.93 [facility] [address] [id number] [address] [place] [phone] Sep, Dental examination Z01.20 [facility] [address] [id number] [address] [place] [address] [phone] Aug, Dental examination V72.2 [facility] [address] [id number] [address] [place] [address] 14 Aug, 2015 Essential hypertension I10 a nd Muscle cramping R25.2 [facility] [address] [id number] [address] [place] [address] Aug, Tension-type headache, not i ntractable, unspecified chronicity pattern G44.209 ; Muscle cramping R25.2 and Right leg pain M79.604 [facility] [address] [place] [address] [phone] July, Dental examination Z01.20 [facility] [address] [place] [address] [phone] July, Encounter for dental examina tion and cleaning without abnormal findings Z01.20 and Dental caries K02.9 [facility] [address] [facility] [id number] [place] [id number] Jun, Encounter for dental examina tion Z01.20 [facility] [address] [place] [id number] [address] [place] [address] Apr, [facility] [address] [place] [id number] [place] [address] 02 Apr, 2015 Bronchitis J40 [place] [address] [address] Feb, Hyperlipemia E78.5 ; Carotid arterial disease I77.9 ; Tobacco use Z72.0 ; Hypertension I10 ; RBBB I45.10 and CVA (cerebral vascular accident) I63.9 [place] [address] [place] [id number] [address] [place] [address] Feb, Status post CVA Z86.73 ; Dys function of right eustachian tube H69.81 and Essential hypertension I10 [place] [address] [place] [id number] [address] [place] [address] Dec, Encounter for immunization Z 23 [place] [address] [address] Oct, PVD (peripheral vascular dis ease) 443.9 and Weight loss 783.21 [place] [address] [place] [id number] [place] [address] Oct, PVD (peripheral vascular dis ease) 443.9 and Weight loss 783.[address] [address] Aug, Hyperlipidemia 272.4 ; Carot id arterial disease 447.9 ; Tobacco dependency 305.1 ; Hypertension 401.9 ; RBBB 426.4 and CVA (cerebral infarction) 434.[address] [address] Aug, [address] [address] Aug, Pseudoaneurysm following pro cedure 997.[address] [address] July, Chest pain, unspecified 786. 50 ; [...] for prophylactic vaccination and inoculation, Influenza V04.[address] [address] Jun, [address] [address] Jun, [address] [address] 17 May, 2014 [facility] [address] [id number] [address] [place] [address], [place] [address] 17 May, 2014 [facility] [address] [id number] [address] [place] [address], [place] [address] May, [facility] [address] [id number] [address] [place] [address], [place] [address] May, [facility] [address] [id number] [address] [place] [address], [place] [address] Mar, [facility] [address] [id number] [address] [place] [address], [place] [address] Mar, [facility] [address] [id number] [address] [place] [address], [place] [address] Mar, [facility] [address] [id number] [address] [place] [address], [place] [address] Mar, [facility] [address] [id number] [address] [place] [address], [place] [address] Mar, [facility] [address] [id number] [address] [place] [address], [place] [address] Mar, [facility] [address] [id number] [address] [place] [address], [place] [address] Mar, [facility] [address] [id number] [address] [place] [address], [place] [address] Mar, [facility] [address] [id number] [address] [place] [address], [place] [address] Mar, [facility] [place] [facility] [address] [id number] [address] [place] [address], [place] [address] Mar, [facility] [place] [facility] [address] [id number] [address] [place] [address], [place] [address] Feb, [facility] [place] [facility] [address] [id number] [address] [place] [address], [place] [address] Feb, [facility] [place] [facility] [address] [id number] [address] [place] [address], [place] [address] Feb, [facility] [address] [id number] [address] [place] [address], [place] [address] Feb, [facility] [address] [id number] [address] [place] [address], [place] [address] Feb, [facility] [address] [id number] [address] [place] [address], [place] [address] Feb, [facility] [address] [id number] [address] [place] [address], [place] [address] Feb, [facility] [address] [id number] [address] [place] [address], [place] [address] Feb, [facility] [address] [id number] [address] [place] [address], [place] [address] Jan, [facility] [address] [id number] [address] [place] [address], [place] [address] Jan, [facility] [address] [id number] [address] [place] [address], [place] [address] Nov, [facility] [address] [id number] [address] [place] [address], [place] [address] Nov, [facility] [address] [id number] [address] [place] [address], [place] [address] Sep, [facility] [place] [facility] [address] [id number] [address] [place] [address], [place] [address] Sep, [facility] [address] [id number] [address] [place] [address], [place] [address] Sep, [facility] [address] [id number] [address] [place] [address], [place] [address] Sep, [facility] [address] [id number] [address] [place] [address], [place] [address] Aug, [facility] [address] [id number] [address] [place] [address], [place] [address] Aug, [facility] [address] [id number] [address] [place] [address], [place] [address] Aug, [facility] [place] [facility] [address] [id number] [address] [place] [address], [place] [address] Aug, [facility] [address] [id number] [address] [place] [address], [place] [address] Aug, [facility] [place] [facility] [address] [id number] [address] [place] [address], [place] [address] Aug, [facility] [address] [id number] [address] [place] [address], [place] [address] July, [facility] [place] [facility] [address] [id number] [address] [place] [address], [place] [address] July, [facility] [address] [id number] [address] [place] [address], [place] [address] July, [facility] [address] [id number] [address] [place] [address], [place] [address] July, [facility] [address] [id number] [address] [place] [address], [place] [address] Jun, [facility] [place] [facility] [address] [id number] [address] [place] [address], [place] [address] Jun, [facility] [place] [facility] [address] [id number] [address] [place] [address], [place] [address] Apr, [facility] [place] [facility] [address] [id number] [address] [place] [address], [place] [address] Apr, [facility] [place] [facility] [address] [id number] [address] [place] [address], [place] [address] Apr, [facility] [place] [facility] [address] [id number] [address] [place] [address], [place] [address] Apr, [facility] [place] [facility] [address] [id number] [address] [place] [address], [place] [address] Apr, [facility] [place] [facility] [address] [id number] [address] [place] [address] Apr, [facility] [address] [id number] [address] [place] [address], [place] [address] Mar, [facility] [address] [id number] [address] [place] [address], [place] [address] Mar, [facility] [address] [id number] [address] [place] [address], [place] [address] Mar, [facility] [address] [id number] [address] [place] [address], [place] [address] Mar, [facility] [address] [id number] [address] [place] [address], [place] [address] Mar, [facility] [address] [id number] [address] [place] [address], [place] [address] Feb, [facility] [address] [id number] [address] [place] [address], [place] [address] Feb, [facility] [address] [id number] [address] [place] [address], [place] [address] Feb, [facility] [address] [id number] [address] [place] [address], [place] [address] Feb, [facility] [address] [id number] [address] [place] [address], [place] [address] Feb, [facility] [address] [id number] [address] [place] [address], [place] [address] Feb, [facility] [address] [id number] [address] [place] [address], [place] [address] Feb, [facility] [address] [id number] [address] [place] [address], [place] [address] Feb, [facility] [address] [id number] [address] [place] [address], [place] [address] 04 Feb, 2013 [facility] [address] [id number] [address] [place] [address], [place] [address] Feb, [facility] [address] [id number] [address] [place] [address], [place] [address] Feb, [facility] [address] [id number] [address] [place] [address], [place] [address] Feb, [facility] [address] [id number] [address] [place] [address], [place] [address] Jan, [facility] [address] [id number] [address] [place] [address], [place] [address] Jan, [facility] [address] [id number] [address] [place] [address], [place] [address] Jan, [facility] [address] [id number] [address] [place] [address], [place] [address] Jan, [facility] [address] [id number] [address] [place] [address], [place] [address] Jan, [facility] [address] [id number] [address] [place] [address], [place] [address] Jan, [facility] [address] [id number] [address] [place] [address], [place] [address] Jan, [facility] [address] [id number] [address] [place] [address], [place] [address] Jan, [facility] [address] [id number] [address] [place] [address] Jan, [facility] [address] [id number] [address] [place] [address] Jan, [facility] [address] [id number] [address] [place] [address], [place] [address] Jan, [facility] [address] [id number] [address] [place] [address], [place] [address] Jan, [facility] [address] [id number] [address] [place] [address] Jan, [facility] [address] [id number] [address] [place] [address] Jan, [facility] [address] [id number] [address] [place] [address], [place] [address] Jan, [facility] [address] [id number] [address] [place] [address], [place] [address] Dec, [facility] [address] [id number] [address] [place] [address], [place] [address] Dec, [facility] [address] [id number] [address] [place] [address], [place] [address] Dec, [facility] [address] [id number] [address] [place] [address], [place] [address] Dec, [facility] [address] [id number] [address] [place] [address], [place] [address] Oct, [facility] [address] [id number] [address] [place] [address], [place] [address] Oct, [facility] [address] [id number] [address] [place] [address], [place] [address] Oct, [facility] [address] [id number] [address] [place] [address], [place] [address] Sep, [facility] [address] [id number] [address] [place] [address], [place] [address] Aug, [facility] [address] [id number] [address] [place] [address], [place] [address] July, [facility] [address] [id number] [address] [place] [address], [place] [address] July, [facility] [address] [id number] [address] [place] [address], [place] [address] July, [facility] [address] [id number] [address] [place] [address], [place] [address] July, [facility] [address] [id number] [address] [place] [address], [place] [address] May, [facility] [address] [id number] [address] [place] [address], [place] [address] May, [facility] [address] [id number] [address] [place] [address], [place] [address] Mar, [facility] [address] [id number] [address] [place] [address], [place] [address] Mar, [facility] [address] [id number] [address] [place] [address], [place] [address] Mar, [facility] [address] [id number] [address] [place] [address], [place] [address] Feb, [facility] [address] [id number] [address] [place] [address], [place] [address] Feb, [facility] [address] [id number] [address] [place] [address], [place] [address] Feb, [facility] [address] [id number] [address] [place] [address], [place] [address] Feb, [facility] [address] [id number] [address] [place] [address], [place] [address] Feb, [facility] [address] [id number] [address] [place] [address], [place] [address] Feb, [facility] [address] [id number] [address] [place] [address], [place] [address] Jan, [facility] [address] [id number] [address] [place] [address], [place] [address] Jan, [facility] [facility] [address] [id number] [address] [place] [address], [place] [address] Jan, [facility] [address] [id number] [address] [place] [address], [place] [address] Jan, [facility] [address] [id number] [address] [place] [address], [place] [address] Jan, [facility] [address] [id number] [address] [place] [address], [place] [address] Jan, [facility] [address] [id number] [address] [place] [address], [place] [address] Jan, [facility] [address] [id number] [address] [place] [address], [place] [address] Jan, [facility] [address] [id number] [address] [place] [address], [place] [address] Dec, [facility] [address] [id number] [address] [place] [address], [place] [address] Dec, [facility] [address] [id number] [address] [place] [address], [place] [address] Dec, [facility] [address] [id number] [address] [place] [address], [place] [address] Dec, [facility] [address] [id number] [address] [place] [address], [place] [address] Oct, [facility] [address] [id number] [address] [place] [address], [place] [address] Sep, [facility] [address] [id number] [address] [place] [address], [place] [address] Sep, [facility] [address] [id number] [address] [place] [address], [place] [address] Sep, [facility] [address] [id number] [address] [place] [address], [place] [address] Sep, [facility] [address] [id number] [address] [place] [address] Jun, [facility] [address] [id number] [address] [place] [address], [place] [address] May, [facility] [address] [id number] [address] [place] [address], [place] [address] 14 Apr, 2011 [facility] [address] [id number] [address] [place] [address], [place] [address] Apr, [facility] [address] [id number] [address] [place] [address], [place] [address] 03 Apr, 2011 [facility] [address] [id number] [address] [place] [address], [place] [address] 12 Feb, 2011 [facility] [address] [id number] [address] [place] [address], [place] [address] 12 Feb, 2011 [facility] [address] [id number] [address] [place] [address], [place] [address] 30 Jan, 2011 [facility] [address] [id number] [address] [place] [address], [place] [address] 28 Jan, 2011 [facility] [address] [id number] [address] [place] [address], [place] [address] Jan, [facility] [address] [id number] [address] [place] [address], [place] [address] 31 Feb, 2010 [facility] [address] [id number] [address] [place] [address], [place] [address] 30 Feb, 2010 [facility] [address] [id number] [address] [place] [address], [place] [address] 30 Feb, 2010 [facility] [address] [id number] [address] [place] [address], [place] [address] 30 Feb, 2010 [facility] [address] [id number] [address] [place] [address], [place] [address] 27 Feb, 2010 [facility] [address] [id number] [address] [place] [address], [place] [address] 23 Feb, 2010 [facility] [address] [id number] [address] [place] [address], [place] [address] 20 Feb, 2010 [facility] [address] [id number] [address] [place] [address], [place] [address] 18 Feb, 2010 [facility] [address] [id number] [address] [place] [address], [place] [address] 18 Feb, 2010 [facility] [address] [id number] [address] [place] [address], [place] [address] Feb, [facility] [address] [id number] [address] [place] [address] Jan, [facility] [address] [id number] [address] [place] [address] Dec, [facility] [address] [id number] [address] [place] [address] Nov, [facility] [address] [id number] [address] [place] [address] Mar, [facility] [address] [id number] [address] [place] [address] Jan, [facility] [address] [id number] [address] [place] [address] Dec, [facility] [address] [id number] [address] [place] [address] Dec, [facility] [address] [id number] [address] [place] [address] Sep, [facility] [address] [id number] [address] [place] [address] Jun, [facility] [address] [id number] [address] [place] [address] Mar, [facility] [address] [id number] [address] [place] [address] Jan, IMMUNIZATIONS No Known Immunizations SOCIAL HISTORY [...] Heart cath per Dr. Burton at [facility]- hypotension 08/08 Hospitalization History Hematochezia-[facility] 07/27/16
--- OUTSIDE RECORDS SUMMARY | 2019-08-06 07:59 | XMS REPORT ---
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 Role Phone Migration, Doctor Unavailable Unavailable PROBLEMS Type Condition ICD9-CM Code [id number] Code Onset Dates Condition S tatus SNOMED Code Problem Cataracts, bilateral H26.9 Active 10090557 Problem CVA (cerebral vascular accident) I63.9 Active 631043212 Problem Hyperlipemia E78.5 Active 1112768 4 Problem Lymphocytosis D72.820 Active 424151 09 Problem Peripheral vascular disease, unspecified I73.9 Active 092477909 Problem Iron deficiency anemia due to chronic blood loss D 50.0 Active 493088030 Problem Thyroid nodule E04.1 Active 98351 5005 Problem Dysfunction of right eustachian tube H69.81 Active 93663236 Problem Post-surgical 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 A ctive 29267259 Problem 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 2755 93314 Problem Diverticulitis of intestine without perforation or abscess without bleeding, unspecified part of intestinal tract K57.92 Active 583733814 Problem Essential hypertension I10 Active 84517647 Problem Lung nodule, solitary R91.1 Active 992925259 Problem 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 of 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 Active [id number] ALLERGIES No Information ENCOUNTERS Encounter Location Date Diagnosis [facility] [address] [facility] [id number] [address] [place] [address] Sep, [facility] [address] [facility] [id number] [address] [place] [address] Jun, Post-surgical 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 [facility] [address] [facility] [id number] [address] [place] [address] May, Post-surgical 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 and Peripheral vascular disease, unspecified I73.9 [facility] [address] [facility] [id number] [address] [place] [address] Mar, [facility] [address] [facility] [id number] [address] [place] [address] Mar, Post-surgical 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 [facility] [address] [facility] [id number] [address] [place] [address] Jan, Nodular thyroid disease E04. 1 ; Lung mass R91.8 ; Iron deficiency anemia due to chronic blood loss D50.0 ; Essential hypertension I10 and 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 of 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 [facility] [address] [id number] [address] [place] [address] [id number] Dec, Dental examination Z01.20 [facility] [address] [place] [id number] [place] [address] Dec, Thyroid nodule E04.1 [facility] [address] [place] [id number] [place] [address] Oct, Lung nodule, solitary R91.1 [facility] [address] [place] [id number] [place] [address] Oct, [facility] [address] [place] [id number] [place] [address] Oct, [facility] [address] [place] [id number] [address] [place] [address] Oct, [facility] [address] [place] [id number] [address] [place] [address] Sep, [facility] [address] [place] [id number] [place] [address] Aug, [facility] [address] [facility] [id number] [address] [place] [address] July, Arthralgia, unspecified join t M25.50 ; Essential hypertension I10 ; Seborrheic keratosis L82.1 and LLQ abdominal pain R10.32 [facility] [address] [place] [id number] [address] [place] [address] Feb, Arthralgia, unspecified join t M25.50 [place] [address] [place] [id number] [address] [place] [address] Feb, Arthralgia, unspecified join t M25.50 [place] [address] [place] [id number] [address] [place] [address] Dec, Arthralgia, unspecified join t M25.50 [place] [address] [place] [id number] [address] [place] [address] Dec, Right flank pain R10.9 ; Lef t foot pain M79.672 ; Arthralgia, unspecified joint M25.50 and Encounter for immunization Z23 [place] [address] [address] 09 Dec, 2016 CVA (cerebral vascular accid ent) I63.9 [place] [address] [address] Dec, RUQ abdominal pain R10.11 [place] [address] [address] Dec, Right lower quadrant pain R1 0.31 ; Diverticulitis of intestine without perforation or abscess without bleeding, unspecified part of intestinal tract K57.92 and Internal hemorrhoids K64.8 [place] [address] [place] [id number] [place] [address] Nov, [place] [address] [place] [id number] [address] [place] [address] Oct, [place] [address] [address] Aug, Iron deficiency anemia due t o chronic blood loss D50.0 [place] [address] [place] [id number] [address] [place] [address] Aug, Peripheral vascular disease, unspecified I73.9 and Colitis K52.9 [place] [address] [address] 14 Aug, 2016 H/O: GI bleed Z87.19 [facility] [address] [id number] [address] [place] [address] 07 Aug, 2016 CVA (cerebral vascular accid ent) I63.9 [facility] [address] [facility] [id number] [address] [place] [address] Aug, RUQ abdominal pain R10.11 [facility] [address] [id number] [address] [place] [address] July, RUQ abdominal pain R10.11 an d Lymphocytosis D72.820 [facility] [address] [facility] [id number] [address] [place] [address] July, [facility] [address] [facility] [id number] [address] [place] [address] July, Colitis K52.9 [facility] [id number] [place] [address] [id number] July, [facility] [address] [facility] [id number] [address] [place] [address] Jun, Right flank pain R10.9 [facility] [address] [facility] [id number] [address] [place] [address] May, Urinary tract infection with out hematuria, site unspecified N39.0 and Right flank pain R10.9 [facility] [address] [facility] [id number] [address] [place] [address] Feb, Acute non-recurrent maxillar y sinusitis J01.00 and Need for hepatitis C screening test Z11.59 [facility] [id number] [place] [address] [phone] Jan, Dental examination Z01.20 [facility] [address] [id number] [address] [place] [address] [id number] Dec, Dental examination Z01.20 [facility] [address] [id number] [address] [place] [address] [id number] Dec, Dental examination Z01.20 [facility] [address] [id number] [address] [place] [address] Dec, [facility] [address] [id number] [address] [place] [address] Dec, [facility] [address] [id number] [address] [place] [address] [id number] Dec, Dental examination Z01.20 [facility] [address] [id number] [address] [place] [address] Nov, [facility] [id number] [place] [address] [phone] Nov, Dental examination Z01.20 [facility] [address] [id number] [address] [place] [address] Oct, Arthralgia, unspecified join t M25.50 and Essential hypertension I10 [facility] [address] [id number] [address] [place] [address] Oct, [facility] [address] [facility] [id number] [address] [place] [address] Sep, Bilateral otitis media, unsp ecified chronicity, unspecified otitis media type H66.93 [facility] [address] [id number] [address] [place] [address] [id number] Sep, Dental examination Z01.20 [facility] [address] [id number] [address] [place] [address] [id number] Aug, Dental examination V72.2 [facility] [address] [id number] [address] [place] [address] 14 Aug, 2015 Essential hypertension I10 a nd Muscle cramping R25.2 [facility] [address] [id number] [address] [place] [address] 09 Aug, 2015 Tension-type headache, not i ntractable, unspecified chronicity pattern G44.209 ; Muscle cramping R25.2 and Right leg pain M79.604 [facility] [address] [facility] [id number] [address] [place] [address] [id number] July, Dental examination Z01.20 [facility] [address] [facility] [id number] [address] [place] [address] [id number] July, Encounter for dental examina tion and cleaning without abnormal findings Z01.20 and Dental caries K02.9 [facility] [address] [facility] [id number] [address] [place] [address] [id number] Jun, Encounter for dental examina tion Z01.20 [facility] [address] [place] [id number] [place] [address] Apr, [facility] [address] [address] Apr, Bronchitis J40 [place] [address] [address] Feb, Hyperlipemia E78.5 ; Carotid arterial disease I77.9 ; Tobacco use Z72.0 ; Hypertension I10 ; RBBB I45.10 and CVA (cerebral vascular accident) I63.9 [place] [address] [address] Feb, Status post CVA Z86.73 ; Dys function of right eustachian tube H69.81 and Essential hypertension I10 [place] [address] [address] Dec, Encounter for immunization Z 23 [place] [address] [address] Oct, PVD (peripheral vascular dis ease) 443.9 and Weight loss 783.21 [place] [address] [address] Oct, PVD (peripheral vascular dis ease) 443.9 and Weight loss 783.21 [place] [address] [place] [address] Aug, Hyperlipidemia 272.4 ; Carot id arterial disease 447.9 ; Tobacco dependency 305.1 ; Hypertension 401.9 ; RBBB 426.4 and CVA (cerebral infarction) 434.91 [facility] [address] [place] [id number] [address] [place] [address] Aug, [place] [address] [address] Aug, Pseudoaneurysm following pro cedure 997.79 [place] [address] [place] [id number] [place] [address] July, Chest pain, unspecified 786. 50 ; [...] for prophylactic vaccination and inoculation, Influenza V04.81 [place] [address] [place] [id number] [address] [place] [address] Jun, [place] [address] [place] [id number] [place] [address] Jun, [place] [address] [place] [id number] [address] [place] [address] May, [place] [address] [place] [id number] [place] [address] May, [facility] [address] [id number] [address] [place] [address], [place] [address] May, [facility] [address] [id number] [address] [place] [address], [place] [address] May, [facility] [address] [id number] [address] [place] [address], [place] [address] Mar, [facility] [address] [id number] [address] [place] [address], [place] [address] Mar, [facility] [address] [id number] [address] [place] [address], [place] [address] Mar, [facility] [address] [id number] [address] [place] [address], [place] [address] Mar, [facility] [address] [id number] [address] [place] [address], [place] [address] Mar, [facility] [address] [id number] [address] [place] [address], [place] [address] Mar, [facility] [address] [id number] [address] [place] [address], [place] [address] Mar, [facility] [address] [id number] [address] [place] [address], [place] [address] Mar, [facility] [address] [id number] [address] [place] [address], [place] [address] Mar, [facility] [address] [id number] [address] [place] [address], [place] [address] Mar, [facility] [address] [id number] [address] [place] [address], [place] [address] Feb, [facility] [address] [id number] [address] [place] [address], [place] [address] Feb, [facility] [address] [id number] [address] [place] [address], [place] [address] Feb, [facility] [address] [id number] [address] [place] [address], [place] [address] Feb, [facility] [address] [id number] [address] [place] [address], [place] [address] Feb, [facility] [address] [id number] [address] [place] [address], [place] [address] Feb, [facility] [address] [id number] [address] [place] [address], [place] [address] Feb, [facility] [address] [id number] [address] [place] [address], [place] [address] Feb, [facility] [address] [id number] [address] [place] [address], [place] [address] Jan, [facility] [address] [id number] [address] [place] [address], [place] [address] Jan, [facility] [address] [id number] [address] [place] [address], [place] [address] Nov, [facility] [address] [id number] [address] [place] [address], [place] [address] Nov, [facility] [address] [id number] [address] [place] [address], [place] [address] Sep, [facility] [address] [id number] [address] [place] [address], [place] [address] Sep, [facility] [address] [id number] [address] [place] [address], [place] [address] Sep, [facility] [address] [id number] [address] [place] [address], [place] [address] Sep, [facility] [address] [id number] [address] [place] [address], [place] [address] Aug, [facility] [address] [id number] [address] [place] [address], [place] [address] Aug, [facility] [address] [id number] [address] [place] [address], [place] [address] Aug, [facility] [address] [id number] [address] [place] [address], [place] [address] Aug, [facility] [address] [id number] [address] [place] [address], [place] [address] Aug, [facility] [address] [id number] [address] [place] [address], [place] [address] Aug, [facility] [address] [id number] [address] [place] [address], [place] [address] July, [facility] [address] [id number] [address] [place] [address], [place] [address] July, [facility] [address] [id number] [address] [place] [address], [place] [address] July, [facility] [address] [id number] [address] [place] [address], [place] [address] July, [facility] [address] [id number] [address] [place] [address], [place] [address] Jun, [facility] [address] [id number] [address] [place] [address], [place] [address] Jun, [facility] [address] [id number] [address] [place] [address], [place] [address] Apr, [facility] [address] [id number] [address] [place] [address], [place] [address] Apr, [facility] [address] [id number] [address] [place] [address], [place] [address] Apr, [facility] [address] [id number] [address] [place] [address], [place] [address] Apr, [facility] [address] [id number] [address] [place] [address], [place] [address] Apr, [facility] [address] [id number] [address] [place] [address], [place] [address] Apr, [facility] [address] [id number] [address] [place] [address], [place] [address] Mar, [facility] [address] [id number] [address] [place] [address], [place] [address] Mar, [facility] [address] [id number] [address] [place] [address], [place] [address] Mar, [facility] [address] [id number] [address] [place] [address], [place] [address] Mar, [facility] [address] [id number] [address] [place] [address], [place] [address] Mar, [facility] [address] [id number] [address] [place] [address], [place] [address] Feb, [facility] [address] [id number] [address] [place] [address], [place] [address] Feb, [facility] [address] [id number] [address] [place] [address], [place] [address] Feb, [facility] [address] [id number] [address] [place] [address], [place] [address] Feb, [facility] [address] [id number] [address] [place] [address], [place] [address] Feb, [facility] [address] [id number] [address] [place] [address], [place] [address] Feb, [facility] [address] [id number] [address] [place] [address], [place] [address] 06 Feb, 2013 [facility] [address] [id number] [address] [place] [address], [place] [address] 06 Feb, 2013 [facility] [address] [id number] [address] [place] [address], [place] [address] 04 Feb, 2013 [facility] [address] [id number] [address] [place] [address], [place] [address] 04 Feb, 2013 [facility] [address] [id number] [address] [place] [address], [place] [address] Feb, [facility] [address] [id number] [address] [place] [address], [place] [address] Feb, [facility] [address] [id number] [address] [place] [address], [place] [address] Jan, [facility] [address] [id number] [address] [place] [address], [place] [address] Jan, [facility] [address] [id number] [address] [place] [address], [place] [address] Jan, [facility] [address] [id number] [address] [place] [address], [place] [address] Jan, [facility] [address] [id number] [address] [place] [address], [place] [address] Jan, [facility] [address] [id number] [address] [place] [address], [place] [address] Jan, [facility] [address] [id number] [address] [place] [address], [place] [address] Jan, [facility] [address] [id number] [address] [place] [address], [place] [address] Jan, [facility] [address] [id number] [address] [place] [address] Jan, [facility] [address] [id number] [address] [place] [address] Jan, [facility] [address] [id number] [address] [place] [address] Jan, [facility] [address] [id number] [address] [place] [address], [place] [address] Jan, [facility] [address] [id number] [address] [place] [address] Jan, [facility] [address] [id number] [address] [place] [id number] Jan, [facility] [address] [id number] [address] [place] [id number] Jan, [facility] [address] [id number] [address] [place] [address], [place] [address] Dec, [facility] [address] [id number] [address] [place] [address], [place] [address] Dec, [facility] [address] [id number] [address] [place] [address], [place] [address] Dec, [facility] [address] [id number] [address] [place] [address], [place] [address] Dec, [facility] [address] [id number] [address] [place] [address], [place] [address] Oct, [facility] [address] [id number] [address] [place] [address], [place] [address] Oct, [facility] [address] [id number] [address] [place] [address], [place] [address] Oct, [facility] [address] [id number] [address] [place] [address], [place] [address] Sep, [facility] [address] [id number] [address] [place] [address], [place] [address] Aug, [facility] [address] [id number] [address] [place] [address], [place] [address] July, [facility] [address] [id number] [address] [place] [address], [place] [address] July, [facility] [address] [id number] [address] [place] [address], [place] [address] July, [facility] [address] [id number] [address] [place] [address], [place] [address] July, [facility] [address] [id number] [address] [place] [address], [place] [address] May, [facility] [address] [id number] [address] [place] [address], [place] [address] May, [facility] [address] [id number] [address] [place] [address], [place] [address] Mar, [facility] [address] [id number] [address] [place] [address], [place] [address] Mar, [facility] [address] [id number] [address] [place] [address], [place] [address] Mar, [facility] [address] [id number] [address] [place] [address], [place] [address] Feb, [facility] [address] [id number] [address] [place] [address], [place] [address] Feb, [facility] [address] [id number] [address] [place] [address], [place] [address] Feb, [facility] [address] [id number] [address] [place] [address], [place] [address] Feb, [facility] [address] [id number] [address] [place] [address], [place] [address] Feb, [facility] [address] [id number] [address] [place] [address], [place] [address] Feb, [facility] [address] [id number] [address] [place] [address], [place] [address] Jan, [facility] [address] [id number] [address] [place] [address], [place] [address] 29 Jan, 2012 [facility] [address] [id number] [address] [place] [address], [place] [address] Jan, [facility] [facility] [address] [id number] [address] [place] [address], [place] [address] 28 Jan, 2012 [facility] [address] [id number] [address] [place] [address], [place] [address] 13 Jan, 2012 [facility] [address] [id number] [address] [place] [address], [place] [address] 13 Jan, 2012 [facility] [address] [id number] [address] [place] [address] [address] Jan, [facility] [address] [id number] [address] [place] [address], [place] [address] Jan, [facility] [address] [id number] [address] [place] [address], [place] [address] Dec, [facility] [address] [id number] [address] [place] [address], [place] [address] Dec, [facility] [address] [id number] [address] [place] [address], [place] [address] Dec, [facility] [address] [id number] [address] [place] [address], [place] [address] Dec, [facility] [address] [id number] [address] [place] [address], [place] [address] Oct, [facility] [address] [id number] [address] [place] [address], [place] [address] Sep, [facility] [address] [id number] [address] [place] [address], [place] [address] Sep, [facility] [address] [id number] [address] [place] [address], [place] [address] Sep, [facility] [address] [id number] [address] [place] [address], [place] [address] Sep, [facility] [address] [id number] [address] [place] [address], [place] [address] Jun, [facility] [address] [id number] [address] [place] [address] May, [facility] [address] [id number] [address] [place] [address], [place] [address] Apr, [facility] [address] [id number] [address] [place] [address], [place] [address] Apr, [facility] [address] [id number] [address] [place] [address], [place] [address] Apr, [facility] [address] [id number] [address] [place] [address], [place] [address] 12 Feb, 2011 [facility] [address] [id number] [address] [place] [address], [place] [address] 12 Feb, 2011 [facility] [address] [id number] [address] [place] [address], [place] [address] 30 Jan, 2011 [facility] [address] [id number] [address] [place] [address], [place] [address] 28 Jan, 2011 [facility] [address] [id number] [address] [place] [address], [place] [address] 09 Jan, 2011 [facility] [address] [id number] [address] [place] [address], [place] [address] 31 Feb, 2010 [facility] [address] [id number] [address] [place] [address], [place] [address] 30 Feb, 2010 [facility] [address] [id number] [address] [place] [address], [place] [address] 30 Feb, 2010 [facility] [address] [id number] [address] [place] [address], [place] [address] 30 Feb, 2010 [facility] [address] [id number] [address] [place] [address], [place] [address] 27 Feb, 2010 [facility] [address] [id number] [address] [place] [address], [place] [address] 23 Feb, 2010 [facility] [address] [id number] [address] [place] [address], [place] [address] 20 Feb, 2010 [facility] [address] [id number] [address] [place] [address], [place] [address] 18 Feb, 2010 [facility] [address] [id number] [address] [place] [address], [place] [address] 18 Feb, 2010 [facility] [address] [id number] [address] [place] [address], [place] [address] 06 Feb, 2010 [facility] [address] [id number] [address] [place] [address], [place] [address] Jan, [facility] [address] [id number] [address] [place] [address] Dec, [facility] [address] [id number] [address] [place] [address] Nov, [facility] [address] [id number] [address] [place] [address] Mar, [facility] [address] [id number] [address] [place] [address] Jan, [facility] [address] [id number] [address] [place] [address] Dec, [facility] [address] [id number] [address] [place] [address] Dec, [facility] [address] [id number] [address] [place] [address] Sep, [facility] [address] [id number] [address] [place] [address] Jun, [facility] [address] [id number] [address] [place] [address] Mar, [facility] [address] [id number] [address] [place] [address] Jan, IMMUNIZATIONS No Known Immunizations SOCIAL HISTORY Never Assessed REASON FOR VISIT PLAN OF CARE VITAL SIGNS Blood pressure systolic 130 mmHg 2012-05-31 Blood pressure diastolic 70 mmHg 2012-05-31 MEDICATIONS Unknown Medications RESULTS No Results PROCEDURES [...] per Dr. Burton at via [facility]- hypotension 08/08 Hospitalization History Hematochezia-[facility] 07/27/16
--- OUTSIDE RECORDS SUMMARY | 2019-08-06 07:59 | XMS REPORT ---
Author Author Lavern HUGHES [facility] Address [address] [place] [address] Care Team Providers Care Pharmacy Operations Specialist Name Role Phone DAY HUGHES Unavailable PROBLEMS Type Condition ICD9-CM Code EPP68-EY Code Onset Dates Condition S tatus SNOMED Code Problem Cataracts, bilateral H26.9 Active 41563066 Problem CVA (cerebral vascular accident) I63.9 Active 544720626 Problem Hyperlipemia E78.5 Active 8389228 4 Problem Lymphocytosis D72.820 Active 033752 09 Problem Peripheral vascular disease, unspecified I73.9 Active 480027863 Problem Iron deficiency anemia due to chronic blood loss D 50.0 Active 717325331 Problem Thyroid nodule E04.1 Active 97818 5005 Problem Dysfunction of right eustachian tube H69.81 Active 78311648 Problem Post-surgical 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 A ctive 06073780 Problem 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 2755 26386 Problem Diverticulitis of intestine without perforation or abscess without bleeding, unspecified part of intestinal tract K57.92 Active 766387868 Problem Essential hypertension I10 Active 40453144 Problem Lung nodule, solitary R91.1 Active 191362271 Problem 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 of 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 Active [id number] ALLERGIES No Information ENCOUNTERS Encounter Location Date Diagnosis [facility] [address] [facility] [id number] [address] [place] [address] Sep, [facility] [address] [facility] [id number] [address] [place] [address] Jun, Post-surgical 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 [facility] [address] [facility] [id number] [address] [place] [address] May, Post-surgical 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 and Peripheral vascular disease, unspecified I73.9 [facility] [address] [facility] [id number] [address] [place] [address] Mar, [facility] [address] [facility] [id number] [place] [address] Mar, Post-surgical 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 [facility] [address] [facility] [id number] [address] [place] [address] Jan, Nodular thyroid disease E04. 1 ; Lung mass R91.8 ; Iron deficiency anemia due to chronic blood loss D50.0 ; Essential hypertension I10 and 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 of 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 [facility] [address] [id number] [address] [place] [address] [id number] Dec, Dental examination Z01.20 [facility] [address] [facility] [id number] [address] [place] [address] Dec, Thyroid nodule E04.1 [facility] [address] [facility] [id number] [address] [place] [address] Oct, Lung nodule, solitary R91.1 [facility] [address] [facility] [id number] [address] [place] [address] Oct, [facility] [address] [place] [id number] [place] [address] Oct, [facility] [address] [facility] [id number] [address] [place] [address] Oct, [facility] [address] [place] [id number] [address] [place] [address] Sep, [facility] [address] [facility] [id number] [address] [place] [address] Aug, [facility] [address] [place] [id number] [address] [place] [address] July, Arthralgia, unspecified join t M25.50 ; Essential hypertension I10 ; Seborrheic keratosis L82.1 and LLQ abdominal pain R10.32 [place] [address] [place] [id number] [address] [place] [address] Feb, Arthralgia, unspecified join t M25.50 [place] [address] [place] [id number] [address] [place] [address] Feb, Arthralgia, unspecified join t M25.50 [place] [address] [place] [id number] [address] [place] [address] Dec, Arthralgia, unspecified join t M25.50 [place] [address] [place] [id number] [place] [address] Dec, Right flank pain R10.9 ; Lef t foot pain M79.672 ; Arthralgia, unspecified joint M25.50 and Encounter for immunization Z23 [place] [address] [address] Dec, CVA (cerebral vascular accid ent) I63.9 [place] [address] [address] Dec, RUQ abdominal pain R10.11 [place] [address] [address] Dec, Right lower quadrant pain R1 0.31 ; Diverticulitis of intestine without perforation or abscess without bleeding, unspecified part of intestinal tract K57.92 and Internal hemorrhoids K64.8 [place] [id number] [place] [address] Nov, [place] [address] [place] [id number] [address] [place] [address] Oct, [place] [address] [address] Aug, Iron deficiency anemia due t o chronic blood loss D50.0 [place] [address] [place] [id number] [place] [address] Aug, Peripheral vascular disease, unspecified I73.9 and Colitis K52.9 [facility] [address] [facility] [id number] [address] [place] [address] 14 Aug, 2016 H/O: GI bleed Z87.19 [facility] [address] [facility] [id number] [address] [place] [address] 07 Aug, 2016 CVA (cerebral vascular accid ent) I63.9 [facility] [address] [facility] [id number] [address] [place] [address] 01 Aug, 2016 RUQ abdominal pain R10.11 [place] [address] [facility] [id number] [address] [place] [address] July, RUQ abdominal pain R10.11 an d Lymphocytosis D72.820 [place] [address] [place] [id number] [address] [place] [address] July, [facility] [address] [place] [id number] [address] [place] [address] July, Colitis K52.9 [facility] [address] [place] [id number] [place] [address] [id number] July, [facility] [address] [place] [id number] [address] [place] [address] Jun, Right flank pain R10.9 [facility] [address] [place] [id number] [address] [place] [address] May, Urinary tract infection with out hematuria, site unspecified N39.0 and Right flank pain R10.9 [facility] [address] [facility] [id number] [address] [place] [address] Feb, Acute non-recurrent maxillar y sinusitis J01.00 and Need for hepatitis C screening test Z11.59 [facility] [address] [id number] [address] [place] [address] [id number] Jan, Dental examination Z01.20 [facility] [address] [id number] [address] [place] [address] [id number] Dec, Dental examination Z01.20 [facility] [address] [id number] [address] [place] [address] [id number] Dec, Dental examination Z01.20 [facility] [address] [id number] [address] [place] [address] Dec, [facility] [address] [id number] [address] [place] [address] Dec, [facility] [address] [id number] [address] [place] [address] [id number] Dec, Dental examination Z01.20 [facility] [address] [id number] [address] [place] [address] Nov, [facility] [address] [id number] [address] [place] [address] [id number] Nov, Dental examination Z01.20 [facility] [address] [id number] [address] [place] [address] Oct, Arthralgia, unspecified join t M25.50 and Essential hypertension I10 [facility] [address] [id number] [address] [place] [address] Oct, [facility] [address] [facility] [id number] [address] [place] [address] Sep, Bilateral otitis media, unsp ecified chronicity, unspecified otitis media type H66.93 [facility] [address] [id number] [address] [place] [address] [id number] Sep, Dental examination Z01.20 [facility] [address] [id number] [address] [place] [address] [id number] Aug, Dental examination V72.2 [facility] [address] [id number] [address] [place] [address] 14 Aug, 2015 Essential hypertension I10 a nd Muscle cramping R25.2 [facility] [address] [id number] [address] [place] [address] Aug, Tension-type headache, not i ntractable, unspecified chronicity pattern G44.209 ; Muscle cramping R25.2 and Right leg pain M79.604 [facility] [id number] [place] [address] [phone] July, Dental examination Z01.20 [facility] [address] [place] [address] [id number] July, Encounter for dental examina tion and cleaning without abnormal findings Z01.20 and Dental caries K02.9 [facility] [address] [facility] [id number] [place] [place] [address] [id number] Jun, Encounter for dental examina tion Z01.20 [facility] [address] [place] [id number] [address] [place] [address] Apr, [facility] [address] [place] [id number] [place] [address] 02 Apr, 2015 Bronchitis J40 [place] [address] [address] Feb, Hyperlipemia E78.5 ; Carotid arterial disease I77.9 ; Tobacco use Z72.0 ; Hypertension I10 ; RBBB I45.10 and CVA (cerebral vascular accident) I63.9 [place] [address] [place] [id number] [address] [place] [address] Feb, Status post CVA Z86.73 ; Dys function of right eustachian tube H69.81 and Essential hypertension I10 [place] [address] [place] [id number] [address] [place] [address] Dec, Encounter for immunization Z 23 [place] [address] [address] Oct, PVD (peripheral vascular dis ease) 443.9 and Weight loss 783.21 [place] [address] [place] [id number] [place] [address] Oct, PVD (peripheral vascular dis ease) 443.9 and Weight loss 783.[address] [address] Aug, Hyperlipidemia 272.4 ; Carot id arterial disease 447.9 ; Tobacco dependency 305.1 ; Hypertension 401.9 ; RBBB 426.4 and CVA (cerebral infarction) 434.[address] [address] Aug, [address] [address] Aug, Pseudoaneurysm following pro cedure 997.[address] [address] July, Chest pain, unspecified 786. 50 ; [...] for prophylactic vaccination and inoculation, Influenza V04.[address] [address] Jun, [address] [address] Jun, [address] [address] 17 May, 2014 [facility] [address] [id number] [address] [place] [address], [place] [address] 17 May, 2014 [facility] [address] [id number] [address] [place] [address], [place] [address] May, [facility] [address] [id number] [address] [place] [address], [place] [address] May, [facility] [address] [id number] [address] [place] [address], [place] [address] Mar, [facility] [address] [id number] [address] [place] [address], [place] [address] Mar, [facility] [address] [id number] [address] [place] [address], [place] [address] Mar, [facility] [address] [id number] [address] [place] [address], [place] [address] Mar, [facility] [address] [id number] [address] [place] [address], [place] [address] Mar, [facility] [address] [id number] [address] [place] [address], [place] [address] Mar, [facility] [address] [id number] [address] [place] [address], [place] [address] Mar, [facility] [address] [id number] [address] [place] [address], [place] [address] Mar, [facility] [address] [id number] [address] [place] [address], [place] [address] Mar, [facility] [address] [id number] [address] [place] [address], [place] [address] Mar, [facility] [address] [id number] [address] [place] [address], [place] [address] Feb, [facility] [address] [id number] [address] [place] [address], [place] [address] Feb, [facility] [place] [facility] [address] [id number] [address] [place] [address], [place] [address] Feb, [facility] [address] [id number] [address] [place] [address], [place] [address] Feb, [facility] [address] [id number] [address] [place] [address], [place] [address] Feb, [facility] [address] [id number] [address] [place] [address], [place] [address] Feb, [facility] [address] [id number] [address] [place] [address], [place] [address] Feb, [facility] [address] [id number] [address] [place] [address], [place] [address] Feb, [facility] [address] [id number] [address] [place] [address], [place] [address] Jan, [facility] [address] [id number] [address] [place] [address], [place] [address] Jan, [facility] [address] [id number] [address] [place] [address], [place] [address] Nov, [facility] [address] [id number] [address] [place] [address], [place] [address] Nov, [facility] [address] [id number] [address] [place] [address], [place] [address] Sep, [facility] [place] [facility] [address] [id number] [address] [place] [address], [place] [address] Sep, [facility] [address] [id number] [address] [place] [address], [place] [address] Sep, [facility] [address] [id number] [address] [place] [address], [place] [address] Sep, [facility] [address] [id number] [address] [place] [address], [place] [address] Aug, [facility] [address] [id number] [address] [place] [address], [place] [address] Aug, [facility] [address] [id number] [address] [place] [address], [place] [address] Aug, [facility] [address] [id number] [address] [place] [address], [place] [address] Aug, [facility] [address] [id number] [address] [place] [address], [place] [address] Aug, [facility] [address] [id number] [address] [place] [address], [place] [address] Aug, [facility] [address] [id number] [address] [place] [address], [place] [address] July, [facility] [address] [id number] [address] [place] [address], [place] [address] July, [facility] [address] [id number] [address] [place] [address], [place] [address] July, [facility] [address] [id number] [address] [place] [address], [place] [address] July, [facility] [address] [id number] [address] [place] [address], [place] [address] Jun, [facility] [address] [id number] [address] [place] [address], [place] [address] Jun, [facility] [place] [facility] [address] [id number] [address] [place] [address], [place] [address] Apr, [facility] [place] [facility] [address] [id number] [address] [place] [address], [place] [address] Apr, [facility] [address] [id number] [address] [place] [address], [place] [address] Apr, [facility] [place] [facility] [address] [id number] [address] [place] [address], [place] [address] Apr, [facility] [place] [facility] [address] [id number] [address] [place] [address], [place] [address] Apr, [facility] [place] [facility] [address] [id number] [address] [address] Apr, [facility] [address] [id number] [address] [place] [address], [place] [address] Mar, [facility] [address] [id number] [address] [place] [address], [place] [address] Mar, [facility] [address] [id number] [address] [place] [address], [place] [address] Mar, [facility] [address] [id number] [address] [place] [address], [place] [address] Mar, [facility] [address] [id number] [address] [place] [address], [place] [address] Mar, [facility] [address] [id number] [address] [place] [address], [place] [address] Feb, [facility] [address] [id number] [address] [place] [address], [place] [address] Feb, [facility] [address] [id number] [address] [place] [address], [place] [address] Feb, [facility] [address] [id number] [address] [place] [address], [place] [address] Feb, [facility] [address] [id number] [address] [place] [address], [place] [address] Feb, [facility] [address] [id number] [address] [place] [address], [place] [address] Feb, [facility] [address] [id number] [address] [place] [address], [place] [address] Feb, [facility] [address] [id number] [address] [place] [address], [place] [address] Feb, [facility] [address] [id number] [address] [place] [address], [place] [address] 04 Feb, 2013 [facility] [address] [id number] [address] [place] [address], [place] [address] Feb, [facility] [address] [id number] [address] [place] [address], [place] [address] Feb, [facility] [address] [id number] [address] [place] [address], [place] [address] Feb, [facility] [address] [id number] [address] [place] [address], [place] [address] Jan, [facility] [address] [id number] [address] [place] [address], [place] [address] Jan, [facility] [address] [id number] [address] [place] [address], [place] [address] Jan, [facility] [address] [id number] [address] [place] [address], [place] [address] Jan, [facility] [address] [id number] [address] [place] [address], [place] [address] Jan, [facility] [address] [id number] [address] [place] [address], [place] [address] Jan, [facility] [address] [id number] [address] [place] [address], [place] [address] Jan, [facility] [address] [id number] [address] [place] [address], [place] [address] Jan, [facility] [address] [id number] [address] [place] [address] Jan, [facility] [address] [id number] [address] [place] [address] Jan, [facility] [address] [id number] [address] [place] [address], [place] [address] Jan, [facility] [address] [id number] [address] [place] [address], [place] [address] Jan, [facility] [address] [id number] [address] [place] [address] Jan, [facility] [address] [id number] [address] [place] [address] Jan, [facility] [address] [id number] [address] [place] [address], [place] [address] Jan, [facility] [address] [id number] [address] [place] [address], [place] [address] Dec, [facility] [address] [id number] [address] [place] [address], [place] [address] Dec, [facility] [address] [id number] [address] [place] [address], [place] [address] Dec, [facility] [address] [id number] [address] [place] [address], [place] [address] Dec, [facility] [address] [id number] [address] [place] [address], [place] [address] Oct, [facility] [address] [id number] [address] [place] [address], [place] [address] Oct, [facility] [address] [id number] [address] [place] [address], [place] [address] Oct, [facility] [address] [id number] [address] [place] [address], [place] [address] Sep, [facility] [address] [id number] [address] [place] [address], [place] [address] Aug, [facility] [address] [id number] [address] [place] [address], [place] [address] July, [facility] [address] [id number] [address] [place] [address], [place] [address] July, [facility] [address] [id number] [address] [place] [address], [place] [address] July, [facility] [address] [id number] [address] [place] [address], [place] [address] July, [facility] [address] [id number] [address] [place] [address], [place] [address] May, [facility] [address] [id number] [address] [place] [address], [place] [address] May, [facility] [address] [id number] [address] [place] [address], [place] [address] Mar, [facility] [address] [id number] [address] [place] [address], [place] [address] Mar, [facility] [address] [id number] [address] [place] [address], [place] [address] Mar, [facility] [address] [id number] [address] [place] [address], [place] [address] Feb, [facility] [address] [id number] [address] [place] [address], [place] [address] Feb, [facility] [address] [id number] [address] [place] [address], [place] [address] Feb, [facility] [address] [id number] [address] [place] [address], [place] [address] Feb, [facility] [address] [id number] [address] [place] [address], [place] [address] Feb, [facility] [address] [id number] [address] [place] [address], [place] [address] Feb, [facility] [address] [id number] [address] [place] [address], [place] [address] Jan, [facility] [address] [id number] [address] [place] [address], [place] [address] Jan, [facility] [address] [id number] [address] [place] [address], [place] [address] Jan, [facility] [address] [id number] [address] [place] [address], [place] [address] Jan, [facility] [address] [id number] [address] [place] [address], [place] [address] Jan, [facility] [address] [id number] [address] [place] [address], [place] [address] Jan, [facility] [address] [id number] [address] [place] [address], [place] [address] Jan, [facility] [address] [id number] [address] [place] [address], [place] [address] Jan, [facility] [address] [id number] [address] [place] [address], [place] [address] Dec, [facility] [address] [id number] [address] [place] [address], [place] [address] Dec, [facility] [address] [id number] [address] [place] [address], [place] [address] Dec, [facility] [address] [id number] [address] [place] [address], [place] [address] Dec, [facility] [address] [id number] [address] [place] [address] [place] [address], [place] [address] Oct, [facility] [address] [id number] [address] [place] [address], [place] [address] Sep, [facility] [address] [id number] [address] [place] [address], [place] [address] Sep, [facility] [address] [id number] [address] [place] [address], [place] [address] Sep, [facility] [address] [id number] [address] [place] [address], [place] [address] Sep, [facility] [address] [id number] [address] [place] [id number] Jun, [facility] [address] [id number] [address] [place] [address], [place] [address] May, [facility] [address] [id number] [address] [place] [address], [place] [address] 14 Apr, 2011 [facility] [address] [id number] [address] [place] [address], [place] [address] Apr, [facility] [address] [id number] [address] [place] [address], [place] [address] 03 Apr, 2011 [facility] [address] [id number] [address] [place] [address], [place] [address] 12 Feb, 2011 [facility] [address] [id number] [address] [place] [address], [place] [address] 12 Feb, 2011 [facility] [address] [id number] [address] [place] [address], [place] [address] 30 Jan, 2011 [facility] [address] [id number] [address] [place] [address], [place] [address] 28 Jan, 2011 [facility] [address] [id number] [address] [place] [address], [place] [address] Jan, [facility] [address] [id number] [address] [place] [address], [place] [address] 31 Feb, 2010 [facility] [address] [id number] [address] [place] [address], [place] [address] 30 Feb, 2010 [facility] [address] [id number] [address] [place] [address], [place] [address] 30 Feb, 2010 [facility] [address] [id number] [address] [place] [address], [place] [address] 30 Feb, 2010 [facility] [address] [id number] [address] [place] [address], [place] [address] 27 Feb, 2010 [facility] [address] [id number] [address] [place] [address], [place] [address] 23 Feb, 2010 [facility] [address] [id number] [address] [place] [address], [place] [address] 20 Feb, 2010 [facility] [address] [id number] [address] [place] [address], [place] [address] 18 Feb, 2010 [facility] [address] [id number] [address] [place] [address], [place] [address] 18 Feb, 2010 [facility] [address] [id number] [address] [place] [address], [place] [address] Feb, [facility] [address] [id number] [address] [place] [address] Jan, [facility] [address] [id number] [address] [place] [phone] 24 Dec, 2009 [facility] [address] [id number] [address] [place] [phone] Nov, [facility] [address] [id number] [address] [place] [address] Mar, [facility] [address] [id number] [address] [place] [address] Jan, [facility] [address] [id number] [address] [place] [address] Dec, [facility] [address] [id number] [address] [place] [address] Dec, [facility] [address] [id number] [address] [place] [phone] Sep, [facility] [address] [id number] [address] [place] [address] Jun, [facility] [address] [id number] [address] [place] [id number] Mar, [facility] [address] [id number] [address] [place] [phone] Jan, IMMUNIZATIONS No Known Immunizations SOCIAL HISTORY Never Assessed REASON FOR VISIT PLAN OF CARE VITAL SIGNS Height 57 in 2014-06-10 Weight 145.4 lbs 2014-06-10 Temperature 98.7 degrees Fahrenheit 2014-06-10 Heart Rate 90 bpm 2014-06-10 Respiratory Rate 18 2014-06-10 Blood pressure systolic 170 mmHg 2014-06-10 Blood pressure diastolic 90 mmHg 2014-06-10 MEDICATIONS Unknown Medications RESULTS No Results PROCEDURES Procedure Date Ordered Result Body Site DXA BONE DENSITY, AXIAL June 10, 2014 INSTRUCTIONS MEDICATIONS ADMINISTERED No Known Medications [...] per Dr. Burton at [facility]- hypotension 08/08 Hospitalization History [facility] 07/27/16
--- OUTSIDE RECORDS SUMMARY | 2019-08-06 08:00 | XMS REPORT ---
Author Author Lavern Polo Doctor Organization [facility] Address Unknown Phone Unavailable Care Team Providers Care Financial Sales Representative Name Role Phone Migration, Doctor Unavailable Unavailable PROBLEMS Type Condition ICD9-CM Code JVI22-HE Code Onset Dates Condition S tatus SNOMED Code Problem Cataracts, bilateral H26.9 Active 57341300 Problem CVA (cerebral vascular accident) I63.9 Active 778380758 Problem Hyperlipemia E78.5 Active 7930938 4 Problem Lymphocytosis D72.820 Active 613765 09 Problem Peripheral vascular disease, unspecified I73.9 Active 447213774 Problem Iron deficiency anemia due to chronic blood loss D 50.0 Active 116623285 Problem Thyroid nodule E04.1 Active 94154 5005 Problem Dysfunction of right eustachian tube H69.81 Active 04262824 Problem Post-surgical 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 A ctive 85205795 Problem 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 3995 86917 Problem Diverticulitis of intestine without perforation or abscess without bleeding, unspecified part of intestinal tract K57.92 Active 868516846 Problem Essential hypertension I10 Active 87339215 Problem Lung nodule, solitary R91.1 Active 322569932 Problem 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 of 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 Active [id number] ALLERGIES No Information ENCOUNTERS Encounter Location Date Diagnosis [place] [id number] [facility] [id number] [address] [place] [address] Jun, Post-surgical 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 [facility] [address] [facility] [id number] [address] [place] [address] May, Post-surgical 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 and Peripheral vascular disease, unspecified I73.9 [facility] [address] [facility] [id number] [address] [place] [address] Mar, [facility] [address] [place] [id number] [address] [place] [address] Mar, Post-surgical 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 [facility] [address] [facility] [id number] [address] [place] [address] Jan, Nodular thyroid disease E04. 1 ; Lung mass R91.8 ; Iron deficiency anemia due to chronic blood loss D50.0 ; Essential hypertension I10 and 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 of 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 [facility] [address] [facility] [id number] [address] [place] [address] [id number] Dec, Dental examination Z01.20 [facility] [address] [facility] [id number] [address] [place] [address] Dec, Thyroid nodule E04.1 [facility] [address] [place] [id number] [place] [address] Oct, Lung nodule, solitary R91.1 [facility] [address] [address] Oct, [facility] [address] [place] [id number] [place] [address] Oct, [facility] [address] [address] Oct, [facility] [address] [place] [id number] [place] [address] Sep, [facility] [address] [address] Aug, [facility] [address] [place] [id number] [place] [address] July, Arthralgia, unspecified join t M25.50 ; Essential hypertension I10 ; Seborrheic keratosis L82.1 and LLQ abdominal pain R10.32 [facility] [address] [place] [id number] [address] [place] [address] Feb, Arthralgia, unspecified join t M25.50 [facility] [address] [place] [id number] [address] [place] [address] Feb, Arthralgia, unspecified join t M25.50 [place] [address] [id number] [address] [place] [address] Dec, Arthralgia, unspecified join t M25.50 [place] [address] [facility] [id number] [address] [place] [address] Dec, Right flank pain R10.9 ; Lef t foot pain M79.672 ; Arthralgia, unspecified joint M25.50 and Encounter for immunization Z23 [place] [address] [facility] [id number] [address] [place] [address] Dec, CVA (cerebral vascular accid ent) I63.9 [place] [address] [place] [id number] [address] [place] [address] Dec, RUQ abdominal pain R10.11 [place] [address] [place] [id number] [address] [place] [address] Dec, Right lower quadrant pain R1 0.31 ; Diverticulitis of intestine without perforation or abscess without bleeding, unspecified part of intestinal tract K57.92 and Internal hemorrhoids K64.8 [place] [address] [place] [id number] [address] [place] [address] Nov, [place] [address] [place] [id number] [address] [place] [address] Oct, [place] [address] [place] [id number] [address] [place] [phone] Aug, Iron deficiency anemia due t o chronic blood loss D50.0 [place] [address] [facility] [id number] [address] [place] [address] Aug, Peripheral vascular disease, unspecified I73.9 and Colitis K52.9 [place] [address] [facility] [id number] [address] [place] [address] 14 Aug, 2016 H/O: GI bleed Z87.19 [place] [address] [place] [id number] [address] [place] [address] Aug, CVA (cerebral vascular accid ent) I63.9 [facility] [address] [id number] [address] [place] [address] Aug, RUQ abdominal pain R10.11 [facility] [address] [id number] [address] [place] [address] July, RUQ abdominal pain R10.11 an d Lymphocytosis D72.820 [facility] [address] [id number] [address] [place] [address] July, [facility] [address] [facility] [id number] [address] [place] [address] July, Colitis K52.9 [facility] [id number] [place] [address] [id number] July, [facility] [address] [facility] [id number] [address] [place] [address] Jun, Right flank pain R10.9 [facility] [address] [id number] [address] [place] [address] May, Urinary tract infection with out hematuria, site unspecified N39.0 and Right flank pain R10.9 [facility] [address] [id number] [address] [place] [address] Feb, Acute non-recurrent maxillar y sinusitis J01.00 and Need for hepatitis C screening test Z11.59 [facility] [address] [id number] [address] [place] [address] [id number] Jan, Dental examination Z01.20 [facility] [address] [id number] [address] [place] [address] [id number] Dec, Dental examination Z01.20 [facility] [address] [id number] [address] [place] [address] [id number] Dec, Dental examination Z01.20 [facility] [address] [id number] [address] [place] [address] Dec, [facility] [address] [facility] [id number] [address] [place] [address] Dec, [facility] [address] [place] [id number] [address] [place] [address] [id number] Dec, Dental examination Z01.20 [facility] [address] [facility] [id number] [address] [place] [address] Nov, [facility] [address] [place] [id number] [place] [address] [id number] Nov, Dental examination Z01.20 [facility] [address] [facility] [id number] [place] [address] Oct, Arthralgia, unspecified join t M25.50 and Essential hypertension I10 [facility] [address] [place] [id number] [address] [place] [address] Oct, [facility] [address] [place] [id number] [address] [place] [address] Sep, Bilateral otitis media, unsp ecified chronicity, unspecified otitis media type H66.93 [facility] [id number] [place] [address] [id number] Sep, Dental examination Z01.20 [facility] [address] [place] [id number] [address] [place] [address] [id number] Aug, Dental examination V72.2 [facility] [address] [place] [id number] [address] [place] [id number] 14 Aug, 2015 Essential hypertension I10 a nd Muscle cramping R25.2 [facility] [address] [place] [id number] [address] [place] [address] 09 Aug, 2015 Tension-type headache, not i ntractable, unspecified chronicity pattern G44.209 ; Muscle cramping R25.2 and Right leg pain M79.604 [facility] [id number] [place] [address] [id number] July, Dental examination Z01.20 [facility] [address] [facility] [id number] [address] [place] [address] [id number] July, Encounter for dental examina tion and cleaning without abnormal findings Z01.20 and Dental caries K02.9 [facility] [address] [id number] [address] [place] [address] [id number] Jun, Encounter for dental examina tion Z01.20 [facility] [address] [place] [id number] [address] [place] [address] Apr, [facility] [address] [id number] 02 Apr, 2015 Bronchitis J40 [place] [address] [address] 09 Feb, 2015 Hyperlipemia E78.5 ; Carotid arterial disease I77.9 ; Tobacco use Z72.0 ; Hypertension I10 ; RBBB I45.10 and CVA (cerebral vascular accident) I63.9 [place] [address] [place] [id number] [address] [place] [phone] Feb, Status post CVA Z86.73 ; Dys function of right eustachian tube H69.81 and Essential hypertension I10 [place] [address] [place] [id number] [address] [place] [address] Dec, Encounter for immunization Z 23 [place] [address] [place] [id number] [address] [place] [address] Oct, PVD (peripheral vascular dis ease) 443.9 and Weight loss 783.21 [place] [address] [phone] 24 Oct, 2014 PVD (peripheral vascular dis ease) 443.9 and Weight loss 783.21 [place] [address] [place] [id number] [address] [place] [address] Aug, Hyperlipidemia 272.4 ; Carot id arterial disease 447.9 ; Tobacco dependency 305.1 ; Hypertension 401.9 ; RBBB 426.4 and CVA (cerebral infarction) 434.91 [place] [address] [place] [id number] [address] [place] [address] Aug, [facility] [address] [place] [id number] [address] [place] [phone] Aug, Pseudoaneurysm following pro cedure 997.79 [place] [address] [place] [id number] [address] [place] [address] July, Chest pain, unspecified 786. 50 ; [...] for prophylactic vaccination and inoculation, Influenza V04.81 [place] [address] [place] [id number] [address] [place] [phone] Jun, [place] [address] [place] [id number] [address] [place] [phone] Jun, [place] [address] [place] [id number] [address] [place] [phone] May, [place] [address] [place] [id number] [address] [place] [phone] May, [place] [address] [place] [id number] [address] [place] [phone] May, [facility] [address] [id number] [address] [place] [address], [place] [address] May, [facility] [address] [id number] [address] [place] [address], [place] [address] Mar, [facility] [address] [id number] [address] [place] [address], [place] [address] Mar, [facility] [address] [id number] [address] [place] [address], [place] [address] Mar, [facility] [address] [id number] [address] [place] [address], [place] [address] Mar, [facility] [address] [id number] [address] [place] [address], [place] [address] Mar, [facility] [address] [id number] [address] [place] [address], [place] [address] Mar, [facility] [address] [id number] [address] [place] [address], [place] [address] Mar, [facility] [address] [id number] [address] [place] [address], [place] [address] Mar, [facility] [address] [id number] [address] [place] [address], [place] [address] Mar, [facility] [address] [id number] [address] [place] [address], [place] [address] Mar, [facility] [address] [id number] [address] [place] [address], [place] [address] Feb, [facility] [address] [id number] [address] [place] [address], [place] [address] Feb, [facility] [address] [id number] [address] [place] [address], [place] [address] Feb, [facility] [address] [id number] [address] [place] [address], [place] [address] Feb, [facility] [address] [id number] [address] [place] [address], [place] [address] Feb, [facility] [address] [id number] [address] [place] [address], [place] [address] Feb, [facility] [address] [id number] [address] [place] [address], [place] [address] Feb, [facility] [address] [id number] [address] [place] [address], [place] [address] Feb, [facility] [address] [id number] [address] [place] [address], [place] [address] Jan, [facility] [address] [id number] [address] [place] [address], [place] [address] Jan, [facility] [address] [id number] [address] [place] [address], [place] [address] Nov, [facility] [address] [id number] [address] [place] [address], [place] [address] Nov, [facility] [address] [id number] [address] [place] [address], [place] [address] Sep, [facility] [address] [id number] [address] [place] [address], [place] [address] Sep, [facility] [address] [id number] [address] [place] [address], [place] [address] Sep, [facility] [address] [id number] [address] [place] [address], [place] [address] Sep, [facility] [address] [id number] [address] [place] [address], [place] [address] Aug, [facility] [address] [id number] [address] [place] [address], [place] [address] Aug, [facility] [address] [id number] [address] [place] [address], [place] [address] Aug, [facility] [address] [id number] [address] [place] [address], [place] [address] Aug, [facility] [address] [id number] [address] [place] [address], [place] [address] Aug, [facility] [address] [id number] [address] [place] [address], [place] [address] Aug, [facility] [address] [id number] [address] [place] [address], [place] [address] July, [facility] [address] [id number] [address] [place] [address], [place] [address] July, [facility] [address] [id number] [address] [place] [address], [place] [address] July, [facility] [address] [id number] [address] [place] [address], [place] [address] July, [facility] [address] [id number] [address] [place] [address], [place] [address] Jun, [facility] [address] [id number] [address] [place] [address], [place] [address] Jun, [facility] [address] [id number] [address] [place] [address], [place] [address] Apr, [facility] [address] [id number] [address] [place] [address], [place] [address] Apr, [facility] [address] [id number] [address] [place] [address], [place] [address] Apr, [facility] [address] [id number] [address] [place] [address], [place] [address] Apr, [facility] [address] [id number] [address] [place] [address], [place] [address] Apr, [facility] [address] [id number] [address] [place] [address], [place] [address] Apr, [facility] [address] [id number] [address] [place] [address], [place] [address] Mar, [facility] [address] [id number] [address] [place] [address], [place] [address] 31 Mar, 2013 [facility] [address] [id number] [address] [place] [address], [place] [address] Mar, [facility] [address] [id number] [address] [place] [address], [place] [address] Mar, [facility] [address] [id number] [address] [place] [address], [place] [address] Mar, [facility] [address] [id number] [address] [place] [address], [place] [address] Feb, [facility] [address] [id number] [address] [place] [address], [place] [address] Feb, [facility] [address] [id number] [address] [place] [address], [place] [address] Feb, [facility] [address] [id number] [address] [place] [address], [place] [address] Feb, [facility] [address] [id number] [address] [place] [address], [place] [address] Feb, [facility] [address] [id number] [address] [place] [address], [place] [address] Feb, [facility] [address] [id number] [address] [place] [address], [place] [address] 06 Feb, 2013 [facility] [address] [id number] [address] [place] [address], [place] [address] Feb, [facility] [address] [id number] [address] [place] [address], [place] [address] Feb, [facility] [address] [id number] [address] [place] [address], [place] [address] Feb, [facility] [address] [id number] [address] [place] [address], [place] [address] Feb, [facility] [address] [id number] [address] [place] [address], [place] [address] Feb, [facility] [address] [id number] [address] [place] [address], [place] [address] Jan, [facility] [address] [id number] [address] [place] [address], [place] [address] Jan, [facility] [address] [id number] [address] [place] [address], [place] [address] Jan, [facility] [address] [id number] [address] [place] [address], [place] [address] Jan, [facility] [address] [id number] [address] [place] [address], [place] [address] Jan, [facility] [address] [id number] [address] [place] [address], [place] [address] Jan, [facility] [address] [id number] [address] [place] [address], [place] [address] Jan, [facility] [address] [id number] [address] [place] [address] Jan, [facility] [address] [id number] [address] [place] [address], [place] [address] Jan, [facility] [address] [id number] [address] [place] [address] Jan, [facility] [address] [id number] [address] [place] [address] Jan, [facility] [address] [id number] [address] [place] [address] Jan, [facility] [address] [id number] [address] [place] [address], [place] [address] Jan, [facility] [address] [id number] [address] [place] [address] Jan, [facility] [address] [id number] [address] [place] [id number] Jan, [facility] [address] [id number] [address] [place] [id number] Dec, [facility] [address] [id number] [address] [place] [address], [place] [address] Dec, [facility] [address] [id number] [address] [place] [address], [place] [address] Dec, [facility] [address] [id number] [address] [place] [address], [place] [address] Dec, [facility] [address] [id number] [address] [place] [address], [place] [address] Oct, [facility] [address] [id number] [address] [place] [address], [place] [address] Oct, [facility] [address] [id number] [address] [place] [address], [place] [address] Oct, [facility] [address] [id number] [address] [place] [address], [place] [address] Sep, [facility] [address] [id number] [address] [place] [address], [place] [address] Aug, [facility] [address] [id number] [address] [place] [address], [place] [address] July, [facility] [address] [id number] [address] [place] [address], [place] [address] July, [facility] [address] [id number] [address] [place] [address], [place] [address] July, [facility] [address] [id number] [address] [place] [address], [place] [address] July, [facility] [address] [id number] [address] [place] [address], [place] [address] May, [facility] [address] [id number] [address] [place] [address], [place] [address] May, [facility] [address] [id number] [address] [place] [address], [place] [address] Mar, [facility] [address] [id number] [address] [place] [address], [place] [address] Mar, [facility] [address] [id number] [address] [place] [address], [place] [address] Mar, [facility] [address] [id number] [address] [place] [address], [place] [address] Feb, [facility] [address] [id number] [address] [place] [address], [place] [address] Feb, [facility] [address] [id number] [address] [place] [address], [place] [address] Feb, [facility] [address] [id number] [address] [place] [address], [place] [address] Feb, [facility] [address] [id number] [address] [place] [address], [place] [address] Feb, [facility] [address] [id number] [address] [place] [address], [place] [address] Feb, [facility] [address] [id number] [address] [place] [address], [place] [address] Jan, [facility] [address] [id number] [address] [place] [address], [place] [address] Jan, [facility] [address] [id number] [address] [place] [address], [place] [address] Jan, [facility] [address] [id number] [address] [place] [address], [place] [address] Jan, [facility] [address] [id number] [address] [place] [address], [place] [address] Jan, [facility] [address] [id number] [address] [place] [address], [place] [address] Jan, [facility] [address] [id number] [address] [place] [address], [place] [address] Jan, [facility] [address] [id number] [address] [place] [address] [address] Jan, [facility] [address] [id number] [address] [place] [address], [place] [address] Dec, [facility] [address] [id number] [address] [place] [address], [place] [address] Dec, [facility] [address] [id number] [address] [place] [address], [place] [address] Dec, [facility] [address] [id number] [address] [place] [address], [place] [address] Dec, [facility] [address] [id number] [address] [place] [address], [place] [address] Oct, [facility] [address] [id number] [address] [place] [address], [place] [address] Sep, [facility] [address] [id number] [address] [place] [address], [place] [address] Sep, [facility] [address] [id number] [address] [place] [address], [place] [address] Sep, [facility] [address] [id number] [address] [place] [address], [place] [address] Sep, [facility] [address] [id number] [address] [place] [address], [place] [address] Jun, [facility] [address] [id number] [address] [place] [address], [place] [address] May, [facility] [address] [id number] [address] [place] [address], [place] [address] Apr, [facility] [address] [id number] [address] [place] [address], [place] [address] Apr, [facility] [address] [id number] [address] [place] [address], [place] [address] Apr, [facility] [address] [id number] [address] [place] [address], [place] [address] Feb, [facility] [address] [id number] [address] [place] [address], [place] [address] 12 Feb, 2011 [facility] [address] [id number] [address] [place] [address], [place] [address] 30 Jan, 2011 [facility] [address] [id number] [address] [place] [address], [place] [address] 28 Jan, 2011 [facility] [address] [id number] [address] [place] [address], [place] [address] 09 Jan, 2011 [facility] [address] [id number] [address] [place] [address], [place] [address] 31 Feb, 2010 [facility] [address] [id number] [address] [place] [address], [place] [address] 30 Feb, 2010 [facility] [address] [id number] [address] [place] [address], [place] [address] 30 Feb, 2010 [facility] [address] [id number] [address] [place] [address], [place] [address] 30 Feb, 2010 [facility] [address] [id number] [address] [place] [address], [place] [address] 27 Feb, 2010 [facility] [address] [id number] [address] [place] [address], [place] [address] 23 Feb, 2010 [facility] [address] [id number] [address] [place] [address], [place] [address] 20 Feb, 2010 [facility] [address] [id number] [address] [place] [address], [place] [address] 18 Feb, 2010 [facility] [address] [id number] [address] [place] [address], [place] [address] 18 Feb, 2010 [facility] [address] [id number] [address] [place] [address], [place] [address] 06 Feb, 2010 [facility] [address] [id number] [address] [place] [address], [place] [address] Jan, [facility] [address] [id number] [address] [place] [address], [place] [address] Dec, [facility] [address] [id number] [address] [place] [phone] Nov, [facility] [address] [id number] [address] [place] [phone] Mar, [facility] [address] [id number] [address] [place] [address] Jan, [facility] [address] [id number] [address] [place] [phone] Dec, [facility] [address] [id number] [address] [place] [address] Dec, [facility] [address] [id number] [address] [place] [address] Sep, [facility] [address] [id number] [address] [place] [address] Jun, [facility] [address] [id number] [address] [place] [id number] Mar, [facility] [address] [id number] [address] [place] [phone] Jan, IMMUNIZATIONS No Known Immunizations SOCIAL HISTORY Never Assessed REASON FOR VISIT [facility] PLAN OF CARE VITAL SIGNS MEDICATIONS Unknown [...] Dr. Burton at [facility]- hypotension 08/08 Hospitalization History Hematochezia-[facility] 07/27/16
--- OUTSIDE RECORDS SUMMARY | 2019-08-06 08:00 | XMS REPORT ---
Author Author Christ Lavern Doctor Organization [facility] Address Unknown Phone Unavailable Care Team Providers Care Block Sealer Name Role Phone Migration, Doctor Unavailable Unavailable PROBLEMS Type Condition ICD9-CM Code FHT87-OG Code Onset Dates Condition S tatus SNOMED Code Problem Cataracts, bilateral H26.9 Active 38892029 Problem CVA (cerebral vascular accident) I63.9 Active 939007568 Problem Hyperlipemia E78.5 Active 4037985 4 Problem Lymphocytosis D72.820 Active 507741 09 Problem Peripheral vascular disease, unspecified I73.9 Active 073421334 Problem Iron deficiency anemia due to chronic blood loss D 50.0 Active 524591184 Problem Thyroid nodule E04.1 Active 46805 5005 Problem Dysfunction of right eustachian tube H69.81 Active 00791512 Problem Post-surgical 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 A ctive 04881058 Problem 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 2755 50040 Problem Diverticulitis of intestine without perforation or abscess without bleeding, unspecified part of intestinal tract K57.92 Active 102886968 Problem Essential hypertension I10 Active 99117768 Problem Lung nodule, solitary R91.1 Active 201801794 Problem 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 of 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 Active [id number] ALLERGIES Substance Reaction Event Type Date Status Gadolinium-containing Contrast Media Unknown Non Drug Allergy Jun, Active ENCOUNTERS Encounter Location Date Diagnosis [facility] [address] [facility] [id number] [address] [place] [address] Sep, [facility] [address] [facility] [id number] [address] [place] [address] Jun, Post-surgical 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 [facility] [address] [facility] [id number] [address] [place] [address] May, Post-surgical 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 and Peripheral vascular disease, unspecified I73.9 [facility] [address] [facility] [id number] [address] [place] [address] Mar, [facility] [address] [facility] [id number] [address] [place] [address] Mar, Post-surgical 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 [facility] [address] [facility] [id number] [address] [place] [address] Jan, Nodular thyroid disease E04. 1 ; Lung mass R91.8 ; Iron deficiency anemia due to chronic blood loss D50.0 ; Essential hypertension I10 and 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 of 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 [facility] [address] [id number] [address] [place] [address] [id number] Dec, Dental examination Z01.20 [facility] [address] [place] [id number] [address] [place] [address] Dec, Thyroid nodule E04.1 [facility] [address] [address] Oct, Lung nodule, solitary R91.1 [facility] [address] [place] [id number] [address] [place] [address] Oct, [facility] [address] [place] [id number] [place] [address] Oct, [facility] [address] [place] [id number] [address] [place] [address] Oct, [facility] [address] [place] [id number] [address] [place] [address] Sep, [facility] [address] [place] [id number] [address] [place] [address] Aug, [facility] [address] [place] [id number] [place] [address] July, Arthralgia, unspecified join t M25.50 ; Essential hypertension I10 ; Seborrheic keratosis L82.1 and LLQ abdominal pain R10.32 [facility] [address] [place] [id number] [address] [place] [address] Feb, Arthralgia, unspecified join t M25.50 [place] [address] [address] Feb, Arthralgia, unspecified join t M25.50 [place] [address] [address] Dec, Arthralgia, unspecified join t M25.50 [place] [address] [address] Dec, Right flank pain R10.9 ; Lef t foot pain M79.672 ; Arthralgia, unspecified joint M25.50 and Encounter for immunization Z23 [place] [address] [address] Dec, CVA (cerebral vascular accid ent) I63.9 [place] [address] [address] Dec, RUQ abdominal pain R10.11 [place] [address] [address] Dec, Right lower quadrant pain R1 0.31 ; Diverticulitis of intestine without perforation or abscess without bleeding, unspecified part of intestinal tract K57.92 and Internal hemorrhoids K64.8 [place] [address] [address] Nov, [place] [address] [address] Oct, [place] [address] [address] Aug, Iron deficiency anemia due t o chronic blood loss D50.0 [place] [address] [address] Aug, Peripheral vascular disease, unspecified I73.9 and Colitis K52.9 [place] [address] [facility] [id number] [address] [place] [address] 14 Aug, 2016 H/O: GI bleed Z87.19 [place] [address] [facility] [id number] [address] [place] [address] 07 Aug, 2016 CVA (cerebral vascular accid ent) I63.9 [place] [address] [facility] [id number] [address] [place] [address] 01 Aug, 2016 RUQ abdominal pain R10.11 [facility] [address] [id number] [address] [place] [address] July, RUQ abdominal pain R10.11 an d Lymphocytosis D72.820 [place] [address] [place] [id number] [address] [place] [address] July, [place] [address] [place] [id number] [address] [place] [address] July, Colitis K52.9 [facility] [id number] [place] [address] [phone] July, [facility] [address] [place] [id number] [address] [place] [address] Jun, Right flank pain R10.9 [facility] [address] [facility] [id number] [address] [place] [address] May, Urinary tract infection with out hematuria, site unspecified N39.0 and Right flank pain R10.9 [facility] [address] [place] [id number] [address] [place] [address] Feb, Acute non-recurrent maxillar y sinusitis J01.00 and Need for hepatitis C screening test Z11.59 [facility] [id number] [place] [address] [phone] Jan, Dental examination Z01.20 [facility] [address] [id number] [address] [place] [address] [id number] Dec, Dental examination Z01.20 [facility] [address] [id number] [address] [place] [address] [phone] Dec, Dental examination Z01.20 [facility] [address] [id number] [address] [place] [address] Dec, [facility] [address] [id number] [address] [place] [address] Dec, [facility] [address] [id number] [place] [address] [phone] Dec, Dental examination Z01.20 [facility] [address] [id number] [address] [place] [address] Nov, [facility] [address] [id number] [place] [address] [phone] Nov, Dental examination Z01.20 [facility] [address] [id number] [address] [place] [address] Oct, Arthralgia, unspecified join t M25.50 and Essential hypertension I10 [facility] [address] [id number] [address] [place] [address] Oct, [facility] [address] [facility] [id number] [address] [place] [address] Sep, Bilateral otitis media, unsp ecified chronicity, unspecified otitis media type H66.93 [facility] [address] [id number] [address] [place] [address] [phone] Sep, Dental examination Z01.20 [facility] [address] [id number] [address] [place] [address] [id number] 16 Aug, 2015 Dental examination V72.2 [facility] [address] [id number] [address] [place] [address] 14 Aug, 2015 Essential hypertension I10 a nd Muscle cramping R25.2 [facility] [address] [id number] [address] [place] [address] 09 Aug, 2015 Tension-type headache, not i ntractable, unspecified chronicity pattern G44.209 ; Muscle cramping R25.2 and Right leg pain M79.604 [facility] [id number] [place] [address] [phone] July, Dental examination Z01.20 [facility] [address] [place] [address] [phone] July, Encounter for dental examina tion and cleaning without abnormal findings Z01.20 and Dental caries K02.9 [facility] [id number] [place] [address] [phone] Jun, Encounter for dental examina tion Z01.20 [facility] [address] [address] Apr, [facility] [address] [address] Apr, Bronchitis J40 [place] [address] [address] 09 Feb, 2015 Hyperlipemia E78.5 ; Carotid arterial disease I77.9 ; Tobacco use Z72.0 ; Hypertension I10 ; RBBB I45.10 and CVA (cerebral vascular accident) I63.9 [place] [address] [address] Feb, Status post CVA Z86.73 ; Dys function of right eustachian tube H69.81 and Essential hypertension I10 [place] [address] [address] 02 Dec, 2014 Encounter for immunization Z 23 [place] [address] [address] Oct, PVD (peripheral vascular dis ease) 443.9 and Weight loss 783.21 [place] [address] [address] Oct, PVD (peripheral vascular dis ease) 443.9 and Weight loss 783.21 [place] [id number] [address] [place] [phone] 17 Aug, 2014 Hyperlipidemia 272.4 ; Carot id arterial disease 447.9 ; Tobacco dependency 305.1 ; Hypertension 401.9 ; RBBB 426.4 and CVA (cerebral infarction) 434.[address] [address] Aug, [address] [address] Aug, Pseudoaneurysm following pro cedure 997.[address] [address] July, Chest pain, unspecified 786. 50 ; [...] for prophylactic vaccination and inoculation, Influenza V04.81 [place] [id number] [address] [place] [address] Jun, [place] [id number] [address] [place] [phone] Jun, [place] [id number] [address] [place] [phone] May, [facility] [address] [id number] [address] [place] [address], [place] [address] May, [facility] [address] [id number] [address] [place] [address], [place] [address] May, [facility] [address] [id number] [address] [place] [address], [place] [address] May, [facility] [address] [id number] [address] [place] [address], [place] [address] Mar, [facility] [address] [id number] [address] [place] [address], [place] [address] Mar, [facility] [address] [id number] [address] [place] [address], [place] [address] Mar, [facility] [address] [id number] [address] [place] [address], [place] [address] Mar, [facility] [address] [id number] [address] [place] [address], [place] [address] Mar, [facility] [address] [id number] [address] [place] [address], [place] [address] Mar, [facility] [address] [id number] [address] [place] [address], [place] [address] Mar, [facility] [address] [id number] [address] [place] [address], [place] [address] Mar, [facility] [address] [id number] [address] [place] [address], [place] [address] Mar, [facility] [address] [id number] [address] [place] [address], [place] [id number] Mar, [facility] [address] [id number] [address] [place] [address], [place] [address] Feb, [facility] [address] [id number] [address] [place] [address], [place] [address] Feb, [facility] [address] [id number] [address] [place] [address], [place] [address] Feb, [facility] [address] [id number] [address] [place] [address], [place] [address] Feb, [facility] [address] [id number] [address] [place] [address], [place] [address] Feb, [facility] [address] [id number] [address] [place] [address], [place] [address] Feb, [facility] [address] [id number] [address] [place] [address], [place] [address] Feb, [facility] [address] [id number] [address] [place] [address], [place] [address] Feb, [facility] [address] [id number] [address] [place] [address], [place] [address] Jan, [facility] [address] [id number] [address] [place] [address], [place] [address] Jan, [facility] [address] [id number] [address] [place] [address], [place] [address] Nov, [facility] [address] [id number] [address] [place] [address], [place] [address] Nov, [facility] [address] [id number] [address] [place] [address], [place] [address] Sep, [facility] [address] [id number] [address] [place] [address], [place] [address] Sep, [facility] [address] [id number] [address] [place] [address], [place] [address] Sep, [facility] [address] [id number] [address] [place] [address], [place] [address] Sep, [facility] [address] [id number] [address] [place] [address], [place] [address] Aug, [facility] [address] [id number] [address] [place] [address], [place] [address] Aug, [facility] [address] [id number] [address] [place] [address], [place] [address] Aug, [facility] [address] [id number] [address] [place] [address], [place] [address] Aug, [facility] [address] [id number] [address] [place] [address], [place] [address] Aug, [facility] [address] [id number] [address] [place] [address], [place] [address] Aug, [facility] [address] [id number] [address] [place] [address], [place] [address] July, [facility] [address] [id number] [address] [place] [address], [place] [address] July, [facility] [address] [id number] [address] [place] [address], [place] [address] July, [facility] [address] [id number] [address] [place] [address], [place] [address] July, [facility] [address] [id number] [address] [place] [address], [place] [address] Jun, [facility] [address] [id number] [address] [place] [address], [place] [address] Jun, [facility] [address] [id number] [address] [place] [address], [place] [address] Apr, [facility] [address] [id number] [address] [place] [address], [place] [address] Apr, [facility] [address] [id number] [address] [place] [address], [place] [address] Apr, [facility] [address] [id number] [address] [place] [address], [place] [address] Apr, [facility] [address] [id number] [address] [place] [address], [place] [address] Apr, [facility] [address] [id number] [address] [place] [address], [place] [address] Apr, [facility] [address] [id number] [address] [place] [address], [place] [address] Mar, [facility] [address] [id number] [address] [place] [address], [place] [address] Mar, [facility] [address] [id number] [address] [place] [address], [place] [address] Mar, [facility] [address] [id number] [address] [place] [address], [place] [address] Mar, [facility] [address] [id number] [address] [place] [address], [place] [address] Mar, [facility] [address] [id number] [address] [place] [address], [place] [address] Feb, [facility] [address] [id number] [address] [place] [address], [place] [address] Feb, [facility] [address] [id number] [address] [place] [address], [place] [address] Feb, [facility] [address] [id number] [address] [place] [address], [place] [address] Feb, [facility] [address] [id number] [address] [place] [address], [place] [address] Feb, [facility] [address] [id number] [address] [place] [address], [place] [address] Feb, [facility] [address] [id number] [address] [place] [address], [place] [address] 06 Feb, 2013 [facility] [address] [id number] [address] [place] [address], [place] [address] Feb, [facility] [address] [id number] [address] [place] [address], [place] [address] 04 Feb, 2013 [facility] [address] [id number] [address] [place] [address], [place] [address] Feb, [facility] [address] [id number] [address] [place] [address], [place] [address] Feb, [facility] [address] [id number] [address] [place] [address], [place] [address] Feb, [facility] [address] [id number] [address] [place] [address], [place] [address] Jan, [facility] [address] [id number] [address] [place] [address], [place] [address] Jan, [facility] [address] [id number] [address] [place] [address], [place] [address] Jan, [facility] [address] [id number] [address] [place] [address], [place] [address] Jan, [facility] [address] [id number] [address] [place] [address], [place] [address] Jan, [facility] [address] [id number] [address] [place] [address], [place] [address] Jan, [facility] [address] [id number] [address] [place] [address], [place] [address] Jan, [facility] [address] [id number] [address] [place] [address], [place] [address] Jan, [facility] [address] [id number] [address] [place] [address], [place] [address] Jan, [facility] [address] [id number] [address] [place] [address], [place] [address] Jan, [facility] [address] [id number] [address] [place] [address], [place] [address] Jan, [facility] [address] [id number] [address] [place] [address], [place] [address] Jan, [facility] [address] [id number] [address] [place] [address], [place] [address] Jan, [facility] [address] [id number] [address] [place] [address], [place] [id number] Jan, [facility] [address] [id number] [address] [place] [address], [place] [id number] Jan, [facility] [address] [id number] [address] [place] [address], [place] [id number] Dec, [facility] [address] [id number] [address] [place] [address], [place] [id number] Dec, [facility] [address] [id number] [address] [place] [address], [place] [id number] Dec, [facility] [address] [id number] [address] [place] [address], [place] [id number] Dec, [facility] [address] [id number] [address] [place] [address], [place] [id number] Oct, [facility] [address] [id number] [address] [place] [address], [place] [id number] Oct, [facility] [address] [id number] [address] [place] [address], [place] [id number] Oct, [facility] [address] [id number] [address] [place] [address], [place] [id number] Sep, [facility] [address] [id number] [address] [place] [address], [place] [id number] Aug, [facility] [address] [id number] [address] [place] [address], [place] [id number] July, [facility] [address] [id number] [address] [place] [address], [place] [id number] July, [facility] [address] [id number] [address] [place] [address], [place] [id number] July, [facility] [address] [id number] [address] [place] [address], [place] [id number] July, [facility] [address] [id number] [address] [place] [address], [place] [id number] May, [facility] [address] [id number] [address] [place] [address], [place] [id number] May, [facility] [address] [id number] [address] [place] [address], [place] [id number] Mar, [facility] [address] [id number] [address] [place] [address], [place] [id number] Mar, [facility] [address] [id number] [address] [place] [address], [place] [id number] Mar, [facility] [address] [id number] [address] [place] [address], [place] [id number] Feb, [facility] [address] [id number] [address] [place] [address], [place] [id number] Feb, [facility] [address] [id number] [address] [place] [address], [place] [id number] Feb, [facility] [address] [id number] [address] [place] [address], [place] [id number] Feb, [facility] [address] [id number] [address] [place] [address], [place] [id number] Feb, [facility] [address] [id number] [address] [place] [address], [place] [id number] Feb, [facility] [address] [id number] 14 [place] [address], [place] [id number] Jan, [facility] [address] [id number] [address] [place] [address], [place] [id number] 29 Jan, 2012 [facility] [address] [id number] [address] [place] [address], [place] [id number] Jan, [facility] [address] [id number] [address] [place] [address], [place] [id number] Jan, [facility] [address] [id number] [address] [place] [address], [place] [id number] Jan, [facility] [address] [id number] [address] [place] [address], [place] [id number] Jan, [facility] [address] [id number] [address] [place] [address], [place] [id number] Jan, [facility] [address] [id number] [address] [place] [address], [place] [id number] Jan, [facility] [address] [id number] [address] [place] [address], [place] [id number] Dec, [facility] [address] [id number] [address] [place] [address], [place] [id number] Dec, [facility] [address] [id number] [address] [place] [address], [place] [id number] Dec, [facility] [address] [id number] [address] [place] [address], [place] [id number] Dec, [facility] [address] [id number] [address] [place] [address], [place] [id number] Oct, [facility] [address] [id number] [address] [place] [address], [place] [address] Sep, [facility] [address] [id number] [address] [place] [address], [place] [id number] Sep, [facility] [address] [id number] [address] [place] [address], [place] [id number] Sep, [facility] [address] [id number] [address] [place] [address], [place] [id number] Sep, [facility] [address] [id number] [address] [place] [address], [place] [id number] Jun, [facility] [address] [id number] [address] [place] [address], [place] [id number] May, [facility] [address] [id number] [address] [place] [address], [place] [id number] 14 Apr, 2011 [facility] [address] [id number] [address] [place] [address], [place] [address] Apr, [facility] [address] [id number] [address] [place] [address] [address] Apr, [facility] [address] [id number] [address] [place] [address], [place] [address] Feb, [facility] [address] [id number] [address] [place] [address], [place] [id number] Feb, [facility] [address] [id number] [address] [place] [address], [place] [id number] 30 Jan, 2011 [facility] [address] [id number] [address] [place] [address], [place] [id number] Jan, [facility] [address] [id number] [address] [place] [address], [place] [address] Jan, [facility] [address] [id number] [address] [place] [address], [place] [id number] 31 Feb, 2010 [facility] [address] [id number] [address] [place] [address], [place] [id number] 30 Feb, 2010 [facility] [address] [id number] [address] [place] [address], [place] [id number] 30 Feb, 2010 [facility] [address] [id number] [address] [place] [address], [place] [id number] 30 Feb, 2010 [facility] [address] [id number] [address] [place] [address], [place] [id number] 27 Feb, 2010 [facility] [address] [id number] [address] [place] [address], [place] [id number] 23 Feb, 2010 [facility] [address] [id number] [address] [place] [address], [place] [id number] 20 Feb, 2010 [facility] [address] [id number] [address] [place] [address], [place] [id number] 18 Feb, 2010 [facility] [address] [id number] [address] [place] [address], [place] [id number] 18 Feb, 2010 [facility] [address] [id number] [address] [place] [address], [place] [id number] 06 Feb, 2010 [facility] [address] [id number] [address] [place] [id number] Jan, [facility] [address] [id number] [address] [place] [id number] Dec, [facility] [address] [id number] [address] [place] [id number] Nov, [facility] [address] [id number] [address] [place] [id number] Mar, [facility] [address] [id number] [address] [place] [id number] Jan, [facility] [address] [id number] [address] [place] [id number] Dec, [facility] [address] [id number] [address] [place] [id number] Dec, [facility] [address] [id number] [address] [place] [id number] Sep, [facility] [address] [id number] [address] [place] [phone] Jun, [facility] [address] [id number] [address] [place] [id number] Mar, [facility] [address] [id number] [address] [place] [id number] Jan, IMMUNIZATIONS No Known Immunizations SOCIAL HISTORY Never Assessed REASON FOR VISIT [facility] PLAN OF CARE VITAL SIGNS MEDICATIONS Medication Instructions Dosage Frequency Start Date End Date Duration S tatus Tylenol with Codeine #3 300-30 mg 1-2 ta blet by Oral route 4 times per day PRN July, Active Toviaz 4 mg take 1 tablet (4 mg) by oral route once daily Feb, Active Bactrim DS 800-160 mg 1 tablet by Oral route 2 times p er day for 10 day(s) Mar, Active Lotrisone 1-0.05 % 3 times per day for 10 days Mar, 015 Active Primidone 50 mg 2 times per day Feb, Active RESULTS No Results PROCEDURES No Known [...] Heart cath per Dr. Burton at [facility]- hypotension 08/08 Hospitalization History [facility] 07/27/16
--- OUTSIDE RECORDS SUMMARY | 2019-08-06 08:00 | XMS REPORT ---
Author Author Lavenr Polo Doctor Organization [facility] Address Unknown Phone Unavailable Care Team Providers Care Computer Security Manager Name Role Phone Migration, Doctor Unavailable Unavailable PROBLEMS Type Condition ICD9-CM Code [id number] Code Onset Dates Condition S tatus SNOMED Code Problem Cataracts, bilateral H26.9 Active 76373990 Problem CVA (cerebral vascular accident) I63.9 Active 120239729 Problem Hyperlipemia E78.5 Active 9761706 4 Problem Lymphocytosis D72.820 Active 006455 09 Problem Peripheral vascular disease, unspecified I73.9 Active 553287767 Problem Iron deficiency anemia due to chronic blood loss D 50.0 Active 070813376 Problem Thyroid nodule E04.1 Active 36344 5005 Problem Dysfunction of right eustachian tube H69.81 Active 37318491 Problem Post-surgical 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 A ctive 06625700 Problem 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 6765 64578 Problem Diverticulitis of intestine without perforation or abscess without bleeding, unspecified part of intestinal tract K57.92 Active 581058860 Problem Essential hypertension I10 Active 46163469 Problem Lung nodule, solitary R91.1 Active 421124367 Problem 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 of 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 Active [id number] ALLERGIES No Information ENCOUNTERS Encounter Location Date Diagnosis [place] [address] [facility] [id number] [address] [place] [phone] Jun, Post-surgical 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 [facility] [address] [facility] [id number] [address] [place] [address] May, Post-surgical 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 and Peripheral vascular disease, unspecified I73.9 [facility] [address] [facility] [id number] [address] [place] [address] Mar, [facility] [address] [place] [id number] [address] [place] [address] Mar, Post-surgical 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 [facility] [address] [facility] [id number] [address] [place] [address] Jan, Nodular thyroid disease E04. 1 ; Lung mass R91.8 ; Iron deficiency anemia due to chronic blood loss D50.0 ; Essential hypertension I10 and 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 of 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 [facility] [address] [facility] [id number] [address] [place] [address] [id number] Dec, Dental examination Z01.20 [facility] [address] [facility] [id number] [address] [place] [address] Dec, Thyroid nodule E04.1 [facility] [address] [place] [id number] [place] [address] Oct, Lung nodule, solitary R91.1 [facility] [address] [address] Oct, [facility] [address] [place] [id number] [place] [address] Oct, [facility] [address] [address] Oct, [facility] [address] [place] [id number] [place] [address] Sep, [facility] [address] [address] Aug, [facility] [address] [place] [id number] [place] [address] July, Arthralgia, unspecified join t M25.50 ; Essential hypertension I10 ; Seborrheic keratosis L82.1 and LLQ abdominal pain R10.32 [facility] [address] [place] [id number] [address] [place] [address] Feb, Arthralgia, unspecified join t M25.50 [facility] [address] [place] [id number] [address] [place] [address] Feb, Arthralgia, unspecified join t M25.50 [place] [address] [id number] [address] [place] [address] Dec, Arthralgia, unspecified join t M25.50 [place] [address] [facility] [id number] [address] [place] [address] Dec, Right flank pain R10.9 ; Lef t foot pain M79.672 ; Arthralgia, unspecified joint M25.50 and Encounter for immunization Z23 [place] [address] [facility] [id number] [address] [place] [address] Dec, CVA (cerebral vascular accid ent) I63.9 [place] [address] [place] [id number] [address] [place] [address] Dec, RUQ abdominal pain R10.11 [place] [address] [place] [id number] [address] [place] [address] Dec, Right lower quadrant pain R1 0.31 ; Diverticulitis of intestine without perforation or abscess without bleeding, unspecified part of intestinal tract K57.92 and Internal hemorrhoids K64.8 [place] [address] [place] [id number] [address] [place] [address] Nov, [place] [address] [place] [id number] [address] [place] [address] Oct, [place] [address] [place] [id number] [address] [place] [address] Aug, Iron deficiency anemia due t o chronic blood loss D50.0 [place] [address] [facility] [id number] [address] [place] [address] Aug, Peripheral vascular disease, unspecified I73.9 and Colitis K52.9 [place] [address] [facility] [id number] [address] [place] [address] 14 Aug, 2016 H/O: GI bleed Z87.19 [place] [address] [place] [id number] [address] [place] [address] Aug, CVA (cerebral vascular accid ent) I63.9 [facility] [address] [id number] [address] [place] [address] Aug, RUQ abdominal pain R10.11 [facility] [address] [id number] [address] [place] [address] July, RUQ abdominal pain R10.11 an d Lymphocytosis D72.820 [facility] [address] [id number] [address] [place] [address] July, [facility] [address] [facility] [id number] [address] [place] [address] July, Colitis K52.9 [facility] [id number] [place] [address] [id number] July, [facility] [address] [facility] [id number] [address] [place] [address] Jun, Right flank pain R10.9 [facility] [address] [id number] [address] [place] [address] May, Urinary tract infection with out hematuria, site unspecified N39.0 and Right flank pain R10.9 [facility] [address] [id number] [address] [place] [address] Feb, Acute non-recurrent maxillar y sinusitis J01.00 and Need for hepatitis C screening test Z11.59 [facility] [address] [id number] [address] [place] [address] [id number] Jan, Dental examination Z01.20 [facility] [address] [id number] [address] [place] [address] [id number] Dec, Dental examination Z01.20 [facility] [address] [id number] [address] [place] [address] [id number] Dec, Dental examination Z01.20 [facility] [address] [id number] [address] [place] [address] Dec, [facility] [address] [facility] [id number] [address] [place] [address] Dec, [facility] [address] [place] [id number] [address] [place] [address] [id number] Dec, Dental examination Z01.20 [facility] [address] [facility] [id number] [address] [place] [address] Nov, [facility] [address] [place] [id number] [place] [address] [id number] Nov, Dental examination Z01.20 [facility] [address] [facility] [id number] [place] [address] Oct, Arthralgia, unspecified join t M25.50 and Essential hypertension I10 [facility] [address] [place] [id number] [address] [place] [address] Oct, [facility] [address] [place] [id number] [address] [place] [address] Sep, Bilateral otitis media, unsp ecified chronicity, unspecified otitis media type H66.93 [facility] [id number] [place] [phone] Sep, Dental examination Z01.20 [facility] [address] [place] [id number] [address] [place] [address] [id number] Aug, Dental examination V72.2 [facility] [address] [place] [id number] [address] [place] [address] 14 Aug, 2015 Essential hypertension I10 a nd Muscle cramping R25.2 [facility] [address] [place] [id number] [address] [place] [address] 09 Aug, 2015 Tension-type headache, not i ntractable, unspecified chronicity pattern G44.209 ; Muscle cramping R25.2 and Right leg pain M79.604 [facility] [id number] [place] [address] [id number] July, Dental examination Z01.20 [facility] [address] [facility] [id number] [address] [place] [address] [id number] July, Encounter for dental examina tion and cleaning without abnormal findings Z01.20 and Dental caries K02.9 [facility] [address] [id number] [address] [place] [address] [phone] Jun, Encounter for dental examina tion Z01.20 [facility] [address] [place] [id number] [address] [place] [address] Apr, [facility] [address] [address] 02 Apr, 2015 Bronchitis J40 [place] [address] [address] 09 Feb, 2015 Hyperlipemia E78.5 ; Carotid arterial disease I77.9 ; Tobacco use Z72.0 ; Hypertension I10 ; RBBB I45.10 and CVA (cerebral vascular accident) I63.9 [place] [address] [place] [id number] [address] [place] [address] Feb, Status post CVA Z86.73 ; Dys function of right eustachian tube H69.81 and Essential hypertension I10 [place] [address] [place] [id number] [address] [place] [address] Dec, Encounter for immunization Z 23 [place] [address] [place] [id number] [address] [place] [address] Oct, PVD (peripheral vascular dis ease) 443.9 and Weight loss 783.21 [place] [address] [id number] 24 Oct, 2014 PVD (peripheral vascular dis ease) 443.9 and Weight loss 783.21 [place] [address] [place] [id number] [address] [place] [address] Aug, Hyperlipidemia 272.4 ; Carot id arterial disease 447.9 ; Tobacco dependency 305.1 ; Hypertension 401.9 ; RBBB 426.4 and CVA (cerebral infarction) 434.91 [place] [address] [place] [id number] [address] [place] [address] Aug, [facility] [address] [place] [id number] [address] [place] [address] Aug, Pseudoaneurysm following pro cedure 997.79 [place] [address] [place] [id number] [address] [place] [address] July, Chest pain, unspecified 786. 50 ; [...] for prophylactic vaccination and inoculation, Influenza V04.81 [place] [address] [place] [id number] [address] [place] [address] Jun, [place] [address] [place] [id number] [address] [place] [phone] Jun, [place] [address] [place] [id number] [address] [place] [address] May, [place] [address] [place] [id number] [address] [place] [address] May, [place] [address] [place] [id number] [address] [place] [address] May, [facility] [address] [id number] [address] [place] [address], [place] [address] May, [facility] [address] [id number] [address] [place] [address], [place] [address] Mar, [facility] [address] [id number] [address] [place] [address], [place] [address] Mar, [facility] [address] [id number] [address] [place] [address], [place] [address] Mar, [facility] [address] [id number] [address] [place] [address], [place] [address] Mar, [facility] [address] [id number] [address] [place] [address], [place] [address] Mar, [facility] [address] [id number] [address] [place] [address], [place] [address] Mar, [facility] [address] [id number] [address] [place] [address], [place] [address] Mar, [facility] [address] [id number] [address] [place] [address], [place] [address] Mar, [facility] [address] [id number] [address] [place] [address], [place] [address] Mar, [facility] [address] [id number] [address] [place] [address], [place] [address] Mar, [facility] [address] [id number] [address] [place] [address], [place] [address] Feb, [facility] [address] [id number] [address] [place] [address], [place] [address] Feb, [facility] [address] [id number] [address] [place] [address], [place] [address] Feb, [facility] [address] [id number] [address] [place] [address], [place] [address] Feb, [facility] [address] [id number] [address] [place] [address], [place] [address] Feb, [facility] [address] [id number] [address] [place] [address], [place] [address] Feb, [facility] [address] [id number] [address] [place] [address], [place] [address] Feb, [facility] [address] [id number] [address] [place] [address], [place] [address] Feb, [facility] [address] [id number] [address] [place] [address], [place] [address] Jan, [facility] [address] [id number] [address] [place] [address], [place] [address] Jan, [facility] [address] [id number] [address] [place] [address], [place] [address] Nov, [facility] [address] [id number] [address] [place] [address], [place] [address] Nov, [facility] [address] [id number] [address] [place] [address], [place] [address] Sep, [facility] [address] [id number] [address] [place] [address], [place] [address] Sep, [facility] [address] [id number] [address] [place] [address], [place] [address] Sep, [facility] [address] [id number] [address] [place] [address], [place] [address] Sep, [facility] [address] [id number] [address] [place] [address], [place] [address] Aug, [facility] [address] [id number] [address] [place] [address], [place] [address] Aug, [facility] [address] [id number] [address] [place] [address], [place] [address] Aug, [facility] [address] [id number] [address] [place] [address], [place] [address] Aug, [facility] [address] [id number] [address] [place] [address], [place] [address] Aug, [facility] [address] [id number] [address] [place] [address], [place] [address] Aug, [facility] [address] [id number] [address] [place] [address], [place] [address] July, [facility] [address] [id number] [address] [place] [address], [place] [address] July, [facility] [address] [id number] [address] [place] [address], [place] [address] July, [facility] [address] [id number] [address] [place] [address], [place] [address] July, [facility] [address] [id number] [address] [place] [address], [place] [address] Jun, [facility] [address] [id number] [address] [place] [address], [place] [address] Jun, [facility] [address] [id number] [address] [place] [address], [place] [address] Apr, [facility] [address] [id number] [address] [place] [address], [place] [address] Apr, [facility] [address] [id number] [address] [place] [address], [place] [address] Apr, [facility] [address] [id number] [address] [place] [address], [place] [address] Apr, [facility] [address] [id number] [address] [place] [address], [place] [address] Apr, [facility] [address] [id number] [address] [place] [address], [place] [address] Apr, [facility] [address] [id number] [address] [place] [address], [place] [address] Mar, [facility] [address] [id number] [address] [place] [address], [place] [address] 31 Mar, 2013 [facility] [address] [id number] [address] [place] [address], [place] [address] Mar, [facility] [address] [id number] [address] [place] [address], [place] [address] Mar, [facility] [address] [id number] [address] [place] [address], [place] [address] Mar, [facility] [address] [id number] [address] [place] [address], [place] [address] Feb, [facility] [address] [id number] [address] [place] [address], [place] [address] Feb, [facility] [address] [id number] [address] [place] [address], [place] [address] Feb, [facility] [address] [id number] [address] [place] [address], [place] [address] Feb, [facility] [address] [id number] [address] [place] [address], [place] [address] Feb, [facility] [address] [id number] [address] [place] [address], [place] [address] Feb, [facility] [address] [id number] [address] [place] [address], [place] [address] 06 Feb, 2013 [facility] [address] [id number] [address] [place] [address], [place] [address] Feb, [facility] [address] [id number] [address] [place] [address], [place] [address] Feb, [facility] [address] [id number] [address] [place] [address], [place] [address] Feb, [facility] [address] [id number] [address] [place] [address], [place] [address] Feb, [facility] [address] [id number] [address] [place] [address], [place] [address] Feb, [facility] [address] [id number] [address] [place] [address], [place] [address] Jan, [facility] [address] [id number] [address] [place] [address], [place] [address] Jan, [facility] [address] [id number] [address] [place] [address], [place] [address] Jan, [facility] [address] [id number] [address] [place] [address], [place] [address] Jan, [facility] [address] [id number] [address] [place] [address], [place] [address] Jan, [facility] [address] [id number] [address] [place] [address], [place] [address] Jan, [facility] [address] [id number] [address] [place] [address], [place] [address] Jan, [facility] [address] [id number] [address] [place] [address] Jan, [facility] [address] [id number] [address] [place] [address], [place] [address] Jan, [facility] [address] [id number] [address] [place] [address] Jan, [facility] [address] [id number] [address] [place] [address] Jan, [facility] [address] [id number] [address] [place] [address] Jan, [facility] [address] [id number] [address] [place] [address], [place] [id number] Jan, [facility] [address] [id number] [address] [place] [id number] Jan, [facility] [address] [id number] [address] [place] [id number] Jan, [facility] [address] [id number] [address] [place] [id number] Dec, [facility] [address] [id number] [address] [place] [address], [place] [id number] Dec, [facility] [address] [id number] [address] [place] [address], [place] [id number] Dec, [facility] [address] [id number] [address] [place] [address], [place] [id number] Dec, [facility] [address] [id number] [address] [place] [address], [place] [id number] Oct, [facility] [address] [id number] [address] [place] [address], [place] [id number] Oct, [facility] [address] [id number] [address] [place] [address], [place] [id number] Oct, [facility] [address] [id number] [address] [place] [address], [place] [id number] Sep, [facility] [address] [id number] [address] [place] [address], [place] [id number] Aug, [facility] [address] [id number] [address] [place] [address], [place] [id number] July, [facility] [address] [id number] [address] [place] [address], [place] [id number] July, [facility] [address] [id number] [address] [place] [address], [place] [id number] July, [facility] [address] [id number] [address] [place] [address], [place] [id number] July, [facility] [address] [id number] [address] [place] [address], [place] [id number] May, [facility] [address] [id number] [address] [place] [address], [place] [id number] May, [facility] [address] [id number] [address] [place] [address], [place] [id number] Mar, [facility] [address] [id number] [address] [place] [address], [place] [id number] Mar, [facility] [address] [id number] [address] [place] [address], [place] [id number] Mar, [facility] [address] [id number] [address] [place] [address], [place] [id number] Feb, [facility] [address] [id number] [address] [place] [address], [place] [id number] Feb, [facility] [address] [id number] [address] [place] [address], [place] [id number] Feb, [facility] [address] [id number] [address] [place] [address], [place] [id number] Feb, [facility] [address] [id number] [address] [place] [address], [place] [id number] Feb, [facility] [address] [id number] [address] [place] [address], [place] [id number] Feb, [facility] [address] [id number] [address] [place] [address], [place] [id number] Jan, [facility] [address] [address] [id number] [address] [place] [address], [place] [id number] Jan, [facility] [address] [id number] [address] [place] [address], [place] [id number] Jan, [facility] [address] [id number] [address] [place] [address], [place] [address] Jan, [facility] [address] [id number] [address] [place] [address], [place] [id number] Jan, [facility] [address] [id number] [address] [place] [address], [place] [address] Jan, [facility] [address] [id number] [address] [place] [address], [place] [address] Jan, [facility] [address] [id number] [address] [place] [address] [address] Jan, [facility] [address] [id number] [address] [place] [address], [place] [address] Dec, [facility] [address] [id number] [address] [place] [address], [place] [address] Dec, [facility] [address] [id number] [address] [place] [address], [place] [address] Dec, [facility] [address] [id number] [address] [place] [address], [place] [address] Dec, [facility] [address] [id number] [address] [place] [address], [place] [address] Oct, [facility] [address] [id number] [address] [place] [address], [place] [address] Sep, [facility] [address] [id number] [address] [place] [address], [place] [address] Sep, [facility] [address] [id number] [address] [place] [address], [place] [address] Sep, [facility] [address] [id number] [address] [place] [address], [place] [address] Sep, [facility] [address] [id number] [address] [place] [address], [place] [address] Jun, [facility] [address] [id number] [address] [place] [address], [place] [address] May, [facility] [address] [id number] [address] [place] [address], [place] [address] Apr, [facility] [address] [id number] [address] [place] [address], [place] [address] Apr, [facility] [address] [id number] [address] [place] [address], [place] [address] Apr, [facility] [address] [id number] [address] [place] [address], [place] [address] Feb, [facility] [address] [id number] [address] [place] [address], [place] [address] 12 Feb, 2011 [facility] [address] [id number] [address] [place] [address], [place] [id number] 30 Jan, 2011 [facility] [address] [id number] [address] [place] [address], [place] [address] 28 Jan, 2011 [facility] [address] [id number] [address] [place] [address], [place] [address] 09 Jan, 2011 [facility] [address] [id number] [address] [place] [address], [place] [address] 31 Feb, 2010 [facility] [address] [id number] [address] [place] [address], [place] [address] 30 Feb, 2010 [facility] [address] [id number] [address] [place] [address], [place] [id number] 30 Feb, 2010 [facility] [address] [id number] [address] [place] [address], [place] [address] 30 Feb, 2010 [facility] [address] [id number] [address] [place] [address], [place] [id number] 27 Feb, 2010 [facility] [address] [id number] [address] [place] [address], [place] [address] 23 Feb, 2010 [facility] [address] [id number] [address] [place] [address], [place] [address] 20 Feb, 2010 [facility] [address] [id number] [address] [place] [address], [place] [id number] 18 Feb, 2010 [facility] [address] [id number] [address] [place] [address], [place] [id number] 18 Feb, 2010 [facility] [address] [id number] [address] [place] [address], [place] [id number] 06 Feb, 2010 [facility] [address] [id number] [address] [place] [address], [place] [address] Jan, [facility] [address] [id number] [address] [place] [address], [place] [address] Dec, [facility] [address] [id number] [address] [place] [id number] Nov, [facility] [address] [id number] [address] [place] [id number] Mar, [facility] [address] [id number] [address] [place] [address] Jan, [facility] [address] [id number] [address] [place] [id number] Dec, [facility] [address] [id number] [address] [place] [id number] Dec, [facility] [address] [id number] [address] [place] [address] Sep, [facility] [address] [id number] [address] [place] [id number] Jun, [facility] [address] [id number] [address] [place] [id number] Mar, [facility] [address] [id number] [address] [place] [id number] Jan, IMMUNIZATIONS No Known Immunizations SOCIAL HISTORY Never Assessed [place]ASON FOR [place] [facility] [place] V[place] SIGNS MEDICATIONS Unknown [...] Heart cath per Dr. Burton at [facility]- hypotension 08/08 Hospitalization History Hematochezia-[facility] 07/27/16
--- OUTSIDE RECORDS SUMMARY | 2019-08-06 08:00 | XMS REPORT ---
Author Author Lavern Polo Doctor Organization [facility] Address Unknown Phone Unavailable Care Team Providers Care Payroll Administrative Assistant Name Role Phone Migration, Doctor Unavailable Unavailable PROBLEMS Type Condition ICD9-CM Code [id number] Code Onset Dates Condition S tatus SNOMED Code Problem Cataracts, bilateral H26.9 Active 34456888 Problem CVA (cerebral vascular accident) I63.9 Active 449661825 Problem Hyperlipemia E78.5 Active 9664116 4 Problem Lymphocytosis D72.820 Active 572951 09 Problem Peripheral vascular disease, unspecified I73.9 Active 206101651 Problem Iron deficiency anemia due to chronic blood loss D 50.0 Active 129267693 Problem Thyroid nodule E04.1 Active 74801 5005 Problem Dysfunction of right eustachian tube H69.81 Active 23294471 Problem Post-surgical 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 A ctive 92384025 Problem 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 0305 74931 Problem Diverticulitis of intestine without perforation or abscess without bleeding, unspecified part of intestinal tract K57.92 Active 255899781 Problem Essential hypertension I10 Active 82720051 Problem Lung nodule, solitary R91.1 Active 249972004 Problem 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 of 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 Active [id number] ALLERGIES No Information ENCOUNTERS Encounter Location Date Diagnosis [place] [id number] [facility] [id number] [address] [place] [address] Jun, Post-surgical 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 [facility] [address] [facility] [id number] [address] [place] [address] May, Post-surgical 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 and Peripheral vascular disease, unspecified I73.9 [facility] [address] [facility] [id number] [address] [place] [address] Mar, [facility] [address] [place] [id number] [address] [place] [address] Mar, Post-surgical 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 [facility] [address] [facility] [id number] [address] [place] [address] Jan, Nodular thyroid disease E04. 1 ; Lung mass R91.8 ; Iron deficiency anemia due to chronic blood loss D50.0 ; Essential hypertension I10 and 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 of 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 [facility] [address] [facility] [id number] [address] [place] [address] [id number] Dec, Dental examination Z01.20 [facility] [address] [facility] [id number] [address] [place] [address] Dec, Thyroid nodule E04.1 [facility] [address] [place] [id number] [place] [address] Oct, Lung nodule, solitary R91.1 [facility] [address] [address] Oct, [facility] [address] [place] [id number] [place] [address] Oct, [facility] [address] [address] Oct, [facility] [address] [place] [id number] [place] [address] Sep, [facility] [address] [address] Aug, [facility] [address] [place] [id number] [place] [address] July, Arthralgia, unspecified join t M25.50 ; Essential hypertension I10 ; Seborrheic keratosis L82.1 and LLQ abdominal pain R10.32 [facility] [address] [place] [id number] [address] [place] [address] Feb, Arthralgia, unspecified join t M25.50 [facility] [address] [place] [id number] [address] [place] [address] Feb, Arthralgia, unspecified join t M25.50 [place] [address] [id number] [address] [place] [address] Dec, Arthralgia, unspecified join t M25.50 [place] [address] [facility] [id number] [address] [place] [address] Dec, Right flank pain R10.9 ; Lef t foot pain M79.672 ; Arthralgia, unspecified joint M25.50 and Encounter for immunization Z23 [place] [address] [facility] [id number] [address] [place] [address] Dec, CVA (cerebral vascular accid ent) I63.9 [place] [address] [place] [id number] [address] [place] [address] Dec, RUQ abdominal pain R10.11 [place] [address] [place] [id number] [address] [place] [address] Dec, Right lower quadrant pain R1 0.31 ; Diverticulitis of intestine without perforation or abscess without bleeding, unspecified part of intestinal tract K57.92 and Internal hemorrhoids K64.8 [place] [address] [place] [id number] [address] [place] [address] Nov, [place] [address] [place] [id number] [address] [place] [address] Oct, [place] [address] [place] [id number] [address] [place] [address] Aug, Iron deficiency anemia due t o chronic blood loss D50.0 [place] [address] [facility] [id number] [address] [place] [address] Aug, Peripheral vascular disease, unspecified I73.9 and Colitis K52.9 [place] [address] [facility] [id number] [address] [place] [address] 14 Aug, 2016 H/O: GI bleed Z87.19 [place] [address] [place] [id number] [address] [place] [address] Aug, CVA (cerebral vascular accid ent) I63.9 [facility] [address] [id number] [address] [place] [address] Aug, RUQ abdominal pain R10.11 [facility] [address] [id number] [address] [place] [address] July, RUQ abdominal pain R10.11 an d Lymphocytosis D72.820 [facility] [address] [id number] [address] [place] [address] July, [facility] [address] [facility] [id number] [address] [place] [address] July, Colitis K52.9 [facility] [address] [place] [id number] [place] [address] [id number] July, [facility] [address] [facility] [id number] [address] [place] [address] Jun, Right flank pain R10.9 [facility] [address] [id number] [address] [place] [address] May, Urinary tract infection with out hematuria, site unspecified N39.0 and Right flank pain R10.9 [facility] [address] [id number] [address] [place] [address] Feb, Acute non-recurrent maxillar y sinusitis J01.00 and Need for hepatitis C screening test Z11.59 [facility] [address] [id number] [address] [place] [address] [id number] Jan, Dental examination Z01.20 [facility] [address] [id number] [address] [place] [address] [id number] Dec, Dental examination Z01.20 [facility] [address] [id number] [address] [place] [address] [id number] Dec, Dental examination Z01.20 [facility] [address] [id number] [address] [place] [address] Dec, [facility] [address] [facility] [id number] [address] [place] [address] Dec, [facility] [address] [place] [id number] [address] [place] [address] [id number] Dec, Dental examination Z01.20 [facility] [address] [facility] [id number] [address] [place] [address] Nov, [facility] [address] [place] [id number] [place] [address] [id number] Nov, Dental examination Z01.20 [facility] [address] [facility] [id number] [place] [address] Oct, Arthralgia, unspecified join t M25.50 and Essential hypertension I10 [facility] [address] [place] [id number] [address] [place] [address] Oct, [facility] [address] [place] [id number] [address] [place] [address] Sep, Bilateral otitis media, unsp ecified chronicity, unspecified otitis media type H66.93 [facility] [id number] [place] [address] [id number] Sep, Dental examination Z01.20 [facility] [address] [place] [id number] [address] [place] [address] [id number] Aug, Dental examination V72.2 [facility] [address] [place] [id number] [address] [place] [id number] 14 Aug, 2015 Essential hypertension I10 a nd Muscle cramping R25.2 [facility] [address] [place] [id number] [address] [place] [address] 09 Aug, 2015 Tension-type headache, not i ntractable, unspecified chronicity pattern G44.209 ; Muscle cramping R25.2 and Right leg pain M79.604 [facility] [id number] [place] [address] [id number] July, Dental examination Z01.20 [facility] [address] [facility] [id number] [address] [place] [address] [id number] July, Encounter for dental examina tion and cleaning without abnormal findings Z01.20 and Dental caries K02.9 [facility] [address] [id number] [address] [place] [address] [id number] Jun, Encounter for dental examina tion Z01.20 [facility] [address] [place] [id number] [address] [place] [address] Apr, [facility] [address] [address] 02 Apr, 2015 Bronchitis J40 [place] [address] [address] 09 Feb, 2015 Hyperlipemia E78.5 ; Carotid arterial disease I77.9 ; Tobacco use Z72.0 ; Hypertension I10 ; RBBB I45.10 and CVA (cerebral vascular accident) I63.9 [place] [address] [place] [id number] [address] [place] [address] Feb, Status post CVA Z86.73 ; Dys function of right eustachian tube H69.81 and Essential hypertension I10 [place] [address] [place] [id number] [address] [place] [address] Dec, Encounter for immunization Z 23 [place] [address] [place] [id number] [address] [place] [address] Oct, PVD (peripheral vascular dis ease) 443.9 and Weight loss 783.21 [place] [address] [address] 24 Oct, 2014 PVD (peripheral vascular dis ease) 443.9 and Weight loss 783.21 [place] [address] [place] [id number] [address] [place] [address] Aug, Hyperlipidemia 272.4 ; Carot id arterial disease 447.9 ; Tobacco dependency 305.1 ; Hypertension 401.9 ; RBBB 426.4 and CVA (cerebral infarction) 434.91 [place] [address] [place] [id number] [address] [place] [address] Aug, [facility] [address] [place] [id number] [address] [place] [phone] Aug, Pseudoaneurysm following pro cedure 997.79 [place] [address] [place] [id number] [address] [place] [address] July, Chest pain, unspecified 786. 50 ; [...] for prophylactic vaccination and inoculation, Influenza V04.81 [place] [address] [place] [id number] [address] [place] [id number] Jun, [place] [address] [place] [id number] [address] [place] [phone] Jun, [place] [address] [place] [id number] [address] [place] [phone] May, [place] [address] [place] [id number] [address] [place] [phone] May, [place] [address] [place] [id number] [address] [place] [phone] May, [facility] [address] [id number] [address] [place] [address], [place] [address] May, [facility] [address] [id number] [address] [place] [address], [place] [address] Mar, [facility] [address] [id number] [address] [place] [address], [place] [address] Mar, [facility] [address] [id number] [address] [place] [address], [place] [address] Mar, [facility] [address] [id number] [address] [place] [address], [place] [address] Mar, [facility] [address] [id number] [address] [place] [address], [place] [address] Mar, [facility] [address] [id number] [address] [place] [address], [place] [address] Mar, [facility] [address] [id number] [address] [place] [address], [place] [address] Mar, [facility] [address] [id number] [address] [place] [address], [place] [address] Mar, [facility] [address] [id number] [address] [place] [address], [place] [address] Mar, [facility] [address] [id number] [address] [place] [address], [place] [address] Mar, [facility] [address] [id number] [address] [place] [address], [place] [address] Feb, [facility] [address] [id number] [address] [place] [address], [place] [address] Feb, [facility] [address] [id number] [address] [place] [address], [place] [address] Feb, [facility] [address] [id number] [address] [place] [address], [place] [address] Feb, [facility] [address] [id number] [address] [place] [address], [place] [address] Feb, [facility] [address] [id number] [address] [place] [address], [place] [address] Feb, [facility] [address] [id number] [address] [place] [address], [place] [address] Feb, [facility] [address] [id number] [address] [place] [address], [place] [address] Feb, [facility] [address] [id number] [address] [place] [address], [place] [address] Jan, [facility] [address] [id number] [address] [place] [address], [place] [address] Jan, [facility] [address] [id number] [address] [place] [address], [place] [address] Nov, [facility] [address] [id number] [address] [place] [address], [place] [address] Nov, [facility] [address] [id number] [address] [place] [address], [place] [address] Sep, [facility] [address] [id number] [address] [place] [address], [place] [address] Sep, [facility] [address] [id number] [address] [place] [address], [place] [address] Sep, [facility] [address] [id number] [address] [place] [address], [place] [address] Sep, [facility] [address] [id number] [address] [place] [address], [place] [address] Aug, [facility] [address] [id number] [address] [place] [address], [place] [address] Aug, [facility] [address] [id number] [address] [place] [address], [place] [address] Aug, [facility] [address] [id number] [address] [place] [address], [place] [address] Aug, [facility] [address] [id number] [address] [place] [address], [place] [address] Aug, [facility] [address] [id number] [address] [place] [address], [place] [address] Aug, [facility] [address] [id number] [address] [place] [address], [place] [address] July, [facility] [address] [id number] [address] [place] [address], [place] [address] July, [facility] [address] [id number] [address] [place] [address], [place] [address] July, [facility] [address] [id number] [address] [place] [address], [place] [address] July, [facility] [address] [id number] [address] [place] [address], [place] [address] Jun, [facility] [address] [id number] [address] [place] [address], [place] [address] Jun, [facility] [address] [id number] [address] [place] [address], [place] [address] Apr, [facility] [address] [id number] [address] [place] [address], [place] [address] Apr, [facility] [address] [id number] [address] [place] [address], [place] [address] Apr, [facility] [address] [id number] [address] [place] [address], [place] [address] Apr, [facility] [address] [id number] [address] [place] [address], [place] [address] Apr, [facility] [address] [id number] [address] [place] [address], [place] [address] Apr, [facility] [address] [id number] [address] [place] [address], [place] [address] Mar, [facility] [address] [id number] [address] [place] [address], [place] [address] 31 Mar, 2013 [facility] [address] [id number] [address] [place] [address], [place] [address] Mar, [facility] [address] [id number] [address] [place] [address], [place] [address] Mar, [facility] [address] [id number] [address] [place] [address], [place] [address] Mar, [facility] [address] [id number] [address] [place] [address], [place] [address] Feb, [facility] [address] [id number] [address] [place] [address], [place] [address] Feb, [facility] [address] [id number] [address] [place] [address], [place] [address] Feb, [facility] [address] [id number] [address] [place] [address], [place] [address] Feb, [facility] [address] [id number] [address] [place] [address], [place] [address] Feb, [facility] [address] [id number] [address] [place] [address], [place] [address] Feb, [facility] [address] [id number] [address] [place] [address], [place] [address] 06 Feb, 2013 [facility] [address] [id number] [address] [place] [address], [place] [address] Feb, [facility] [address] [id number] [address] [place] [address], [place] [address] Feb, [facility] [address] [id number] [address] [place] [address], [place] [address] Feb, [facility] [address] [id number] [address] [place] [address], [place] [address] Feb, [facility] [address] [id number] [address] [place] [address], [place] [address] Feb, [facility] [address] [id number] [address] [place] [address], [place] [address] Jan, [facility] [address] [id number] [address] [place] [address], [place] [address] Jan, [facility] [address] [id number] [address] [place] [address], [place] [address] Jan, [facility] [address] [id number] [address] [place] [address], [place] [address] Jan, [facility] [address] [id number] [address] [place] [address], [place] [address] Jan, [facility] [address] [id number] [address] [place] [address], [place] [address] Jan, [facility] [address] [id number] [address] [place] [address], [place] [address] Jan, [facility] [address] [id number] [address] [place] [address] Jan, [facility] [address] [id number] [address] [place] [address], [place] [address] Jan, [facility] [address] [id number] [address] [place] [address] Jan, [facility] [address] [id number] [address] [place] [address] Jan, [facility] [address] [id number] [address] [place] [address] Jan, [facility] [address] [id number] [address] [place] [address], [place] [address] Jan, [facility] [address] [id number] [address] [place] [id number] Jan, [facility] [address] [id number] [address] [place] [id number] Jan, [facility] [address] [id number] [address] [place] [id number] Dec, [facility] [address] [id number] [address] [place] [address], [place] [address] Dec, [facility] [address] [id number] [address] [place] [address], [place] [address] Dec, [facility] [address] [id number] [address] [place] [address], [place] [address] Dec, [facility] [address] [id number] [address] [place] [address], [place] [address] Oct, [facility] [address] [id number] [address] [place] [address], [place] [id number] Oct, [facility] [address] [id number] [address] [place] [address], [place] [id number] Oct, [facility] [address] [id number] [address] [place] [address], [place] [address] Sep, [facility] [address] [id number] [address] [place] [address], [place] [id number] Aug, [facility] [address] [id number] [address] [place] [address], [place] [address] July, [facility] [address] [id number] [address] [place] [address], [place] [address] July, [facility] [address] [id number] [address] [place] [address], [place] [address] July, [facility] [address] [id number] [address] [place] [address], [place] [address] July, [facility] [address] [id number] [address] [place] [address], [place] [id number] May, [facility] [address] [id number] [address] [place] [address], [place] [address] May, [facility] [address] [id number] [address] [place] [address], [place] [address] Mar, [facility] [address] [id number] [address] [place] [address], [place] [address] Mar, [facility] [address] [id number] [address] [place] [address], [place] [address] Mar, [facility] [address] [id number] [address] [place] [address], [place] [address] Feb, [facility] [address] [id number] [address] [place] [address], [place] [address] Feb, [facility] [address] [id number] [address] [place] [address], [place] [address] Feb, [facility] [address] [id number] [address] [place] [address], [place] [address] Feb, [facility] [address] [id number] [address] [place] [address], [place] [address] Feb, [facility] [address] [id number] [address] [place] [address], [place] [address] Feb, [facility] [address] [id number] [address] [place] [address], [place] [address] Jan, [facility] [address] [id number] [address] [place] [address], [place] [address] Jan, [facility] [address] [id number] [address] [place] [address], [place] [address] Jan, [facility] [address] [id number] [address] [place] [address], [place] [address] Jan, [facility] [address] [id number] [address] [place] [address], [place] [address] Jan, [facility] [address] [id number] [address] [place] [address], [place] [address] Jan, [facility] [facility] [address] [id number] [address] [place] [address], [place] [address] Jan, [facility] [address] [id number] [address] [place] [address] [address] Jan, [facility] [address] [id number] [address] [place] [address], [place] [address] Dec, [facility] [address] [id number] [address] [place] [address], [place] [address] Dec, [facility] [address] [id number] [address] [place] [address], [place] [address] Dec, [facility] [address] [id number] [address] [place] [address], [place] [address] Dec, [facility] [address] [id number] [address] [place] [address], [place] [address] Oct, [facility] [address] [id number] [address] [place] [address], [place] [address] Sep, [facility] [address] [id number] [address] [place] [address], [place] [address] Sep, [facility] [address] [id number] [address] [place] [address], [place] [address] Sep, [facility] [address] [id number] [address] [place] [address], [place] [address] Sep, [facility] [address] [id number] [address] [place] [address], [place] [address] Jun, [facility] [address] [id number] [address] [place] [address], [place] [address] May, [facility] [address] [id number] [address] [place] [address], [place] [address] Apr, [facility] [address] [id number] [address] [place] [address], [place] [address] Apr, [facility] [address] [id number] [address] [place] [address], [place] [address] Apr, [facility] [address] [id number] [address] [place] [address], [place] [address] Feb, [facility] [address] [id number] [address] [place] [address], [place] [address] 12 Feb, 2011 [facility] [address] [id number] [address] [place] [address], [place] [address] 30 Jan, 2011 [facility] [address] [id number] [address] [place] [address], [place] [address] 28 Jan, 2011 [facility] [address] [id number] [address] [place] [address], [place] [address] 09 Jan, 2011 [facility] [address] [id number] [address] [place] [address], [place] [address] 31 Feb, 2010 [facility] [address] [id number] [address] [place] [address], [place] [address] 30 Feb, 2010 [facility] [address] [id number] [address] [place] [address], [place] [address] 30 Feb, 2010 [facility] [address] [id number] [address] [place] [address], [place] [address] 30 Feb, 2010 [facility] [address] [id number] [address] [place] [address], [place] [address] 27 Feb, 2010 [facility] [address] [id number] [address] [place] [address], [place] [address] 23 Feb, 2010 [facility] [address] [id number] [address] [place] [address], [place] [address] 20 Feb, 2010 [facility] [address] [id number] [address] [place] [address], [place] [address] 18 Feb, 2010 [facility] [address] [id number] [address] [place] [address], [place] [address] 18 Feb, 2010 [facility] [address] [id number] [address] [place] [address], [place] [address] 06 Feb, 2010 [facility] [address] [id number] [address] [place] [address], [place] [address] Jan, [facility] [address] [id number] [address] [place] [address], [place] [address] Dec, [facility] [address] [id number] [address] [place] [address] Nov, [facility] [address] [id number] [address] [place] [id number] Mar, [facility] [address] [id number] [address] [place] [phone] Jan, [facility] [address] [id number] [address] [place] [id number] Dec, [facility] [address] [id number] [address] [place] [phone] Dec, [facility] [address] [id number] [address] [place] [phone] Sep, [facility] [address] [id number] [address] [place] [id number] Jun, [facility] [address] [id number] [address] [place] [id number] Mar, [facility] [address] [id number] [address] [place] [address] Jan, IMMUNIZATIONS No Known Immunizations SOCIAL HISTORY Never Assessed REASON FOR VISIT [facility] [place] VITAL SIGNS MEDICATIONS Unknown [...] Heart cath per Dr. Burton at [facility]- hypotension 08/08 Hospitalization History Hematochezia[facility] 07/27/16
--- OUTSIDE RECORDS SUMMARY | 2019-08-06 08:01 | XMS REPORT ---
Author Author Lavern Polo Doctor Organization [facility] Address Unknown Phone Unavailable Care Team Providers Care Multimedia Authoring Specialist Name Role Phone Migration, Doctor Unavailable Unavailable PROBLEMS Type Condition ICD9-CM Code MOA04-LY Code Onset Dates Condition S tatus SNOMED Code Problem Cataracts, bilateral H26.9 Active 81633679 Problem CVA (cerebral vascular accident) I63.9 Active 361783803 Problem Hyperlipemia E78.5 Active 8054509 4 Problem Lymphocytosis D72.820 Active 519903 09 Problem Peripheral vascular disease, unspecified I73.9 Active 322387636 Problem Iron deficiency anemia due to chronic blood loss D 50.0 Active 875530978 Problem Thyroid nodule E04.1 Active 86935 5005 Problem Dysfunction of right eustachian tube H69.81 Active 10009501 Problem Post-surgical 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 A ctive 38717058 Problem 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 4095 51253 Problem Diverticulitis of intestine without perforation or abscess without bleeding, unspecified part of intestinal tract K57.92 Active 144783613 Problem Essential hypertension I10 Active 19685634 Problem Lung nodule, solitary R91.1 Active 693348034 Problem 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 of 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 Active [id number] ALLERGIES No Information ENCOUNTERS Encounter Location Date Diagnosis [place] [id number] [facility] [id number] [address] [place] [address] Jun, Post-surgical 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 [facility] [address] [facility] [id number] [address] [place] [address] May, Post-surgical 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 and Peripheral vascular disease, unspecified I73.9 [facility] [address] [facility] [id number] [address] [place] [id number] Mar, [facility] [address] [place] [id number] [address] [place] [address] Mar, Post-surgical 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 [facility] [address] [facility] [id number] [address] [place] [address] Jan, Nodular thyroid disease E04. 1 ; Lung mass R91.8 ; Iron deficiency anemia due to chronic blood loss D50.0 ; Essential hypertension I10 and 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 of 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 [facility] [address] [facility] [id number] [address] [place] [address] [id number] Dec, Dental examination Z01.20 [facility] [address] [facility] [id number] [address] [place] [address] Dec, Thyroid nodule E04.1 [facility] [address] [place] [id number] [place] [address] Oct, Lung nodule, solitary R91.1 [facility] [address] [address] Oct, [facility] [address] [place] [id number] [place] [address] Oct, [facility] [address] [address] Oct, [facility] [address] [place] [id number] [place] [address] Sep, [facility] [address] [address] Aug, [facility] [address] [place] [id number] [place] [address] July, Arthralgia, unspecified join t M25.50 ; Essential hypertension I10 ; Seborrheic keratosis L82.1 and LLQ abdominal pain R10.32 [facility] [address] [place] [id number] [address] [place] [address] Feb, Arthralgia, unspecified join t M25.50 [facility] [address] [place] [id number] [address] [place] [address] Feb, Arthralgia, unspecified join t M25.50 [place] [address] [id number] [address] [place] [address] Dec, Arthralgia, unspecified join t M25.50 [place] [address] [facility] [id number] [address] [place] [address] Dec, Right flank pain R10.9 ; Lef t foot pain M79.672 ; Arthralgia, unspecified joint M25.50 and Encounter for immunization Z23 [place] [address] [facility] [id number] [address] [place] [address] Dec, CVA (cerebral vascular accid ent) I63.9 [place] [address] [place] [id number] [address] [place] [address] Dec, RUQ abdominal pain R10.11 [place] [address] [place] [id number] [address] [place] [address] Dec, Right lower quadrant pain R1 0.31 ; Diverticulitis of intestine without perforation or abscess without bleeding, unspecified part of intestinal tract K57.92 and Internal hemorrhoids K64.8 [place] [address] [place] [id number] [address] [place] [address] Nov, [place] [address] [place] [id number] [address] [place] [address] Oct, [place] [address] [place] [id number] [address] [place] [address] Aug, Iron deficiency anemia due t o chronic blood loss D50.0 [place] [address] [facility] [id number] [address] [place] [address] Aug, Peripheral vascular disease, unspecified I73.9 and Colitis K52.9 [place] [address] [facility] [id number] [address] [place] [address] 14 Aug, 2016 H/O: GI bleed Z87.19 [place] [address] [place] [id number] [address] [place] [address] Aug, CVA (cerebral vascular accid ent) I63.9 [facility] [address] [id number] [address] [place] [address] Aug, RUQ abdominal pain R10.11 [facility] [address] [id number] [address] [place] [address] July, RUQ abdominal pain R10.11 an d Lymphocytosis D72.820 [facility] [address] [id number] [address] [place] [address] July, [facility] [address] [facility] [id number] [address] [place] [address] July, Colitis K52.9 [facility] [address] [place] [id number] [place] [address] [id number] July, [facility] [address] [facility] [id number] [address] [place] [address] Jun, Right flank pain R10.9 [facility] [address] [id number] [address] [place] [address] May, Urinary tract infection with out hematuria, site unspecified N39.0 and Right flank pain R10.9 [facility] [address] [id number] [address] [place] [address] Feb, Acute non-recurrent maxillar y sinusitis J01.00 and Need for hepatitis C screening test Z11.59 [facility] [address] [id number] [address] [place] [address] [id number] Jan, Dental examination Z01.20 [facility] [address] [id number] [address] [place] [address] [id number] Dec, Dental examination Z01.20 [facility] [address] [id number] [address] [place] [address] [id number] Dec, Dental examination Z01.20 [facility] [address] [id number] [address] [place] [address] Dec, [facility] [address] [facility] [id number] [address] [place] [address] Dec, [facility] [address] [place] [id number] [address] [place] [address] [id number] Dec, Dental examination Z01.20 [facility] [address] [facility] [id number] [address] [place] [address] Nov, [facility] [address] [place] [id number] [place] [address] [id number] Nov, Dental examination Z01.20 [facility] [address] [facility] [id number] [place] [address] Oct, Arthralgia, unspecified join t M25.50 and Essential hypertension I10 [facility] [address] [place] [id number] [address] [place] [address] Oct, [facility] [address] [place] [id number] [address] [place] [address] Sep, Bilateral otitis media, unsp ecified chronicity, unspecified otitis media type H66.93 [facility] [id number] [place] [address] [id number] Sep, Dental examination Z01.20 [facility] [address] [place] [id number] [address] [place] [address] [id number] Aug, Dental examination V72.2 [facility] [address] [place] [id number] [address] [place] [address] 14 Aug, 2015 Essential hypertension I10 a nd Muscle cramping R25.2 [facility] [address] [place] [id number] [address] [place] [address] 09 Aug, 2015 Tension-type headache, not i ntractable, unspecified chronicity pattern G44.209 ; Muscle cramping R25.2 and Right leg pain M79.604 [facility] [id number] [place] [address] [id number] July, Dental examination Z01.20 [facility] [address] [facility] [id number] [address] [place] [address] [id number] July, Encounter for dental examina tion and cleaning without abnormal findings Z01.20 and Dental caries K02.9 [facility] [address] [id number] [address] [place] [address] [id number] Jun, Encounter for dental examina tion Z01.20 [facility] [address] [place] [id number] [address] [place] [address] Apr, [facility] [address] [address] 02 Apr, 2015 Bronchitis J40 [place] [address] [address] 09 Feb, 2015 Hyperlipemia E78.5 ; Carotid arterial disease I77.9 ; Tobacco use Z72.0 ; Hypertension I10 ; RBBB I45.10 and CVA (cerebral vascular accident) I63.9 [place] [address] [place] [id number] [address] [place] [address] Feb, Status post CVA Z86.73 ; Dys function of right eustachian tube H69.81 and Essential hypertension I10 [place] [address] [place] [id number] [address] [place] [address] Dec, Encounter for immunization Z 23 [place] [address] [place] [id number] [address] [place] [address] Oct, PVD (peripheral vascular dis ease) 443.9 and Weight loss 783.21 [place] [address] [address] 24 Oct, 2014 PVD (peripheral vascular dis ease) 443.9 and Weight loss 783.21 [place] [address] [place] [id number] [address] [place] [address] Aug, Hyperlipidemia 272.4 ; Carot id arterial disease 447.9 ; Tobacco dependency 305.1 ; Hypertension 401.9 ; RBBB 426.4 and CVA (cerebral infarction) 434.91 [place] [address] [place] [id number] [address] [place] [address] Aug, [facility] [address] [place] [id number] [address] [place] [address] Aug, Pseudoaneurysm following pro cedure 997.79 [place] [address] [place] [id number] [address] [place] [address] July, Chest pain, unspecified 786. 50 ; [...] for prophylactic vaccination and inoculation, Influenza V04.81 [place] [address] [place] [id number] [address] [place] [address] Jun, [place] [address] [place] [id number] [address] [place] [address] Jun, [place] [address] [place] [id number] [address] [place] [address] May, [place] [address] [place] [id number] [address] [place] [address] May, [place] [address] [place] [id number] [address] [place] [address] May, [facility] [address] [id number] [address] [place] [address], [place] [address] May, [facility] [address] [id number] [address] [place] [address], [place] [address] Mar, [facility] [address] [id number] [address] [place] [address], [place] [address] Mar, [facility] [address] [id number] [address] [place] [address], [place] [address] Mar, [facility] [address] [id number] [address] [place] [address], [place] [address] Mar, [facility] [address] [id number] [address] [place] [address], [place] [address] Mar, [facility] [address] [id number] [address] [place] [address], [place] [address] Mar, [facility] [address] [id number] [address] [place] [address], [place] [address] Mar, [facility] [address] [id number] [address] [place] [address], [place] [address] Mar, [facility] [address] [id number] [address] [place] [address], [place] [address] Mar, [facility] [address] [id number] [address] [place] [address], [place] [address] Mar, [facility] [address] [id number] [address] [place] [address], [place] [address] Feb, [facility] [address] [id number] [address] [place] [address], [place] [address] Feb, [facility] [address] [id number] [address] [place] [address], [place] [address] Feb, [facility] [address] [id number] [address] [place] [address], [place] [address] Feb, [facility] [address] [id number] [address] [place] [address], [place] [address] Feb, [facility] [address] [id number] [address] [place] [address], [place] [address] Feb, [facility] [address] [id number] [address] [place] [address], [place] [address] Feb, [facility] [address] [id number] [address] [place] [address], [place] [address] Feb, [facility] [address] [id number] [address] [place] [address], [place] [address] Jan, [facility] [address] [id number] [address] [place] [address], [place] [address] Jan, [facility] [address] [id number] [address] [place] [address], [place] [address] Nov, [facility] [address] [id number] [address] [place] [address], [place] [address] Nov, [facility] [address] [id number] [address] [place] [address], [place] [address] Sep, [facility] [address] [id number] [address] [place] [address], [place] [address] Sep, [facility] [address] [id number] [address] [place] [address], [place] [address] Sep, [facility] [address] [id number] [address] [place] [address], [place] [address] Sep, [facility] [address] [id number] [address] [place] [address], [place] [address] Aug, [facility] [address] [id number] [address] [place] [address], [place] [address] Aug, [facility] [address] [id number] [address] [place] [address], [place] [address] Aug, [facility] [address] [id number] [address] [place] [address], [place] [address] Aug, [facility] [address] [id number] [address] [place] [address], [place] [address] Aug, [facility] [address] [id number] [address] [place] [address], [place] [address] Aug, [facility] [address] [id number] [address] [place] [address], [place] [address] July, [facility] [address] [id number] [address] [place] [address], [place] [address] July, [facility] [address] [id number] [address] [place] [address], [place] [address] July, [facility] [address] [id number] [address] [place] [address], [place] [address] July, [facility] [address] [id number] [address] [place] [address], [place] [address] Jun, [facility] [address] [id number] [address] [place] [address], [place] [address] Jun, [facility] [address] [id number] [address] [place] [address], [place] [address] Apr, [facility] [address] [id number] [address] [place] [address], [place] [address] Apr, [facility] [address] [id number] [address] [place] [address], [place] [address] Apr, [facility] [address] [id number] [address] [place] [address], [place] [address] Apr, [facility] [address] [id number] [address] [place] [address], [place] [address] Apr, [facility] [address] [id number] [address] [place] [address], [place] [address] Apr, [facility] [address] [id number] [address] [place] [address], [place] [address] Mar, [facility] [address] [id number] [address] [place] [address], [place] [address] 31 Mar, 2013 [facility] [address] [id number] [address] [place] [address], [place] [address] Mar, [facility] [address] [id number] [address] [place] [address], [place] [address] Mar, [facility] [address] [id number] [address] [place] [address], [place] [address] Mar, [facility] [address] [id number] [address] [place] [address], [place] [address] Feb, [facility] [address] [id number] [address] [place] [address], [place] [address] Feb, [facility] [address] [id number] [address] [place] [address], [place] [address] Feb, [facility] [address] [id number] [address] [place] [address], [place] [address] Feb, [facility] [address] [id number] [address] [place] [address], [place] [address] Feb, [facility] [address] [id number] [address] [place] [address], [place] [address] Feb, [facility] [address] [id number] [address] [place] [address], [place] [address] 06 Feb, 2013 [facility] [address] [id number] [address] [place] [address], [place] [address] Feb, [facility] [address] [id number] [address] [place] [address], [place] [address] Feb, [facility] [address] [id number] [address] [place] [address], [place] [address] Feb, [facility] [address] [id number] [address] [place] [address], [place] [address] Feb, [facility] [address] [id number] [address] [place] [address], [place] [address] Feb, [facility] [address] [id number] [address] [place] [address], [place] [address] Jan, [facility] [address] [id number] [address] [place] [address], [place] [address] Jan, [facility] [address] [id number] [address] [place] [address], [place] [address] Jan, [facility] [address] [id number] [address] [place] [address], [place] [address] Jan, [facility] [address] [id number] [address] [place] [address], [place] [address] Jan, [facility] [address] [id number] [address] [place] [address], [place] [address] Jan, [facility] [address] [id number] [address] [place] [address], [place] [address] Jan, [facility] [address] [id number] [address] [place] [address] Jan, [facility] [address] [id number] [address] [place] [address], [place] [address] Jan, [facility] [address] [id number] [address] [place] [address] Jan, [facility] [address] [id number] [address] [place] [address] Jan, [facility] [address] [id number] [address] [place] [address] Jan, [facility] [address] [id number] [address] [place] [address], [place] [address] Jan, [facility] [address] [id number] [address] [place] [id number] Jan, [facility] [address] [id number] [address] [place] [id number] Jan, [facility] [address] [id number] [address] [place] [address] Dec, [facility] [address] [id number] [address] [place] [address], [place] [address] Dec, [facility] [address] [id number] [address] [place] [address], [place] [address] Dec, [facility] [address] [id number] [address] [place] [address], [place] [address] Dec, [facility] [address] [id number] [address] [place] [address], [place] [address] Oct, [facility] [address] [id number] [address] [place] [address], [place] [address] Oct, [facility] [address] [id number] [address] [place] [address], [place] [address] Oct, [facility] [address] [id number] [address] [place] [address], [place] [address] Sep, [facility] [address] [id number] [address] [place] [address], [place] [address] Aug, [facility] [address] [id number] [address] [place] [address], [place] [address] July, [facility] [address] [id number] [address] [place] [address], [place] [address] July, [facility] [address] [id number] [address] [place] [address], [place] [address] July, [facility] [address] [id number] [address] [place] [address], [place] [address] July, [facility] [address] [id number] [address] [place] [address], [place] [address] May, [facility] [address] [id number] [address] [place] [address], [place] [address] May, [facility] [address] [id number] [address] [place] [address], [place] [address] Mar, [facility] [address] [id number] [address] [place] [address], [place] [address] Mar, [facility] [address] [id number] [address] [place] [address], [place] [address] Mar, [facility] [address] [id number] [address] [place] [address], [place] [address] Feb, [facility] [address] [id number] [address] [place] [address], [place] [address] Feb, [facility] [address] [id number] [address] [place] [address], [place] [address] Feb, [facility] [address] [id number] [address] [place] [address], [place] [address] Feb, [facility] [address] [id number] [address] [place] [address], [place] [address] Feb, [facility] [address] [id number] [address] [place] [address], [place] [address] Feb, [facility] [address] [id number] [address] [place] [address], [place] [address] Jan, [facility] [address] [id number] [address] [place] [address], [place] [address] Jan, [facility] [address] [id number] [address] [place] [address], [place] [address] Jan, [facility] [address] [id number] [address] [place] [address], [place] [address] Jan, [facility] [address] [id number] [address] [place] [address], [place] [address] Jan, [facility] [address] [id number] [address] [place] [address], [place] [address] Jan, [facility] [facility] [address] [id number] [address] [place] [address], [place] [address] Jan, [facility] [address] [id number] [address] [place], [place] [address] [address] Jan, [facility] [address] [id number] [address] [place] [address], [place] [address] Dec, [facility] [address] [id number] [address] [place] [address], [place] [address] Dec, [facility] [address] [id number] [address] [place] [address], [place] [address] Dec, [facility] [address] [id number] [address] [place] [address], [place] [address] Dec, [facility] [address] [id number] [address] [place] [address], [place] [address] Oct, [facility] [address] [id number] [address] [place] [address], [place] [address] Sep, [facility] [address] [id number] [address] [place] [address], [place] [address] Sep, [facility] [address] [id number] [address] [place] [address], [place] [address] Sep, [facility] [address] [id number] [address] [place] [address], [place] [address] Sep, [facility] [address] [id number] [address] [place] [address], [place] [address] Jun, [facility] [address] [id number] [address] [place] [address], [place] [address] May, [facility] [address] [id number] [address] [place] [address], [place] [address] Apr, [facility] [address] [id number] [address] [place] [address], [place] [address] Apr, [facility] [address] [id number] [address] [place] [address], [place] [address] Apr, [facility] [address] [id number] [address] [place] [address], [place] [address] Feb, [facility] [address] [id number] [address] [place] [address], [place] [address] 12 Feb, 2011 [facility] [address] [id number] [address] [place] [address], [place] [address] 30 Jan, 2011 [facility] [address] [id number] [address] [place] [address], [place] [address] 28 Jan, 2011 [facility] [address] [id number] [address] [place] [address], [place] [address] 09 Jan, 2011 [facility] [address] [id number] [address] [place] [address], [place] [address] 31 Feb, 2010 [facility] [address] [id number] [address] [place] [address], [place] [address] 30 Feb, 2010 [facility] [address] [id number] [address] [place] [address], [place] [address] 30 Feb, 2010 [facility] [address] [id number] [address] [place] [address], [place] [address] 30 Feb, 2010 [facility] [address] [id number] [address] [place] [address], [place] [address] 27 Feb, 2010 [facility] [address] [id number] [address] [place] [address], [place] [address] 23 Feb, 2010 [facility] [address] [id number] [address] [place] [address], [place] [address] 20 Feb, 2010 [facility] [address] [id number] [address] [place] [address], [place] [address] 18 Feb, 2010 [facility] [address] [id number] [address] [place] [address], [place] [address] 18 Feb, 2010 [facility] [address] [id number] [address] [place] [address], [place] [address] 06 Feb, 2010 [facility] [address] [id number] [address] [place] [address], [place] [address] Jan, [facility] [address] [id number] [address] [place] [address], [place] [address] Dec, [facility] [address] [id number] [address] [place] [address] Nov, [facility] [address] [id number] [address] [place] [address] Mar, [facility] [address] [id number] [address] [place] [address] Jan, [facility] [address] [id number] [address] [place] [address] Dec, [facility] [address] [id number] [address] [place] [address] Dec, [facility] [address] [id number] [address] [place] [address] Sep, [facility] [address] [id number] [address] [place] [address] Jun, [facility] [address] [id number] [address] [place] [address] Mar, [facility] [address] [id number] [address] [place] [id number] Jan, IMMUNIZATIONS No Known Immunizations SOCIAL HISTORY Never Assessed REASON FOR VISIT [facility] [place] VITAL SIGNS MEDICATIONS Unknown [...] Heart cath per [facility]. Burton at [facility]- hypotension 08/08 Hospitalization History Hematochezia-[facility] 07/27/16
--- OUTSIDE RECORDS SUMMARY | 2019-08-06 08:01 | XMS REPORT ---
Author Author Lavern Polo Doctor Organization [facility] Address Unknown Phone Unavailable Care Team Providers Care Sales Representative Meats Name Role Phone Migration, Doctor Unavailable Unavailable PROBLEMS Type Condition ICD9-CM Code [id number] Code Onset Dates Condition S tatus SNOMED Code Problem Cataracts, bilateral H26.9 Active 50751695 Problem CVA (cerebral vascular accident) I63.9 Active 219529549 Problem Hyperlipemia E78.5 Active 2249571 4 Problem Lymphocytosis D72.820 Active 176119 09 Problem Peripheral vascular disease, unspecified I73.9 Active 216001809 Problem Iron deficiency anemia due to chronic blood loss D 50.0 Active 390982125 Problem Thyroid nodule E04.1 Active 95108 5005 Problem Dysfunction of right eustachian tube H69.81 Active 48241035 Problem Post-surgical 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 A ctive 87940851 Problem 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 2755 45075 Problem Diverticulitis of intestine without perforation or abscess without bleeding, unspecified part of intestinal tract K57.92 Active 209614265 Problem Essential hypertension I10 Active 28136117 Problem Lung nodule, solitary R91.1 Active 392163732 Problem 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 of 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 Active [id number] ALLERGIES No Information ENCOUNTERS Encounter Location Date Diagnosis [place] [id number] [facility] [id number] [address] [place] [address] Jun, Post-surgical 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 [facility] [address] [facility] [id number] [address] [place] [address] May, Post-surgical 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 and Peripheral vascular disease, unspecified I73.9 [facility] [address] [facility] [id number] [address] [place] [address] Mar, [facility] [address] [place] [id number] [address] [place] [address] Mar, Post-surgical 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 [facility] [address] [facility] [id number] [address] [place] [address] Jan, Nodular thyroid disease E04. 1 ; Lung mass R91.8 ; Iron deficiency anemia due to chronic blood loss D50.0 ; Essential hypertension I10 and 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 of 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 [facility] [address] [facility] [id number] [address] [place] [address] [id number] Dec, Dental examination Z01.20 [facility] [address] [facility] [id number] [address] [place] [address] Dec, Thyroid nodule E04.1 [facility] [address] [place] [id number] [place] [address] Oct, Lung nodule, solitary R91.1 [facility] [address] [address] Oct, [facility] [address] [place] [id number] [place] [address] Oct, [facility] [address] [address] Oct, [facility] [address] [place] [id number] [place] [address] Sep, [facility] [address] [address] Aug, [facility] [address] [place] [id number] [place] [address] July, Arthralgia, unspecified join t M25.50 ; Essential hypertension I10 ; Seborrheic keratosis L82.1 and LLQ abdominal pain R10.32 [facility] [address] [place] [id number] [address] [place] [address] Feb, Arthralgia, unspecified join t M25.50 [facility] [address] [place] [id number] [address] [place] [address] Feb, Arthralgia, unspecified join t M25.50 [place] [address] [id number] [address] [place] [address] Dec, Arthralgia, unspecified join t M25.50 [place] [address] [facility] [id number] [address] [place] [address] Dec, Right flank pain R10.9 ; Lef t foot pain M79.672 ; Arthralgia, unspecified joint M25.50 and Encounter for immunization Z23 [place] [address] [facility] [id number] [address] [place] [address] Dec, CVA (cerebral vascular accid ent) I63.9 [place] [address] [place] [id number] [address] [place] [address] Dec, RUQ abdominal pain R10.11 [place] [address] [place] [id number] [address] [place] [address] Dec, Right lower quadrant pain R1 0.31 ; Diverticulitis of intestine without perforation or abscess without bleeding, unspecified part of intestinal tract K57.92 and Internal hemorrhoids K64.8 [place] [address] [place] [id number] [address] [place] [address] Nov, [place] [address] [place] [id number] [address] [place] [address] Oct, [place] [address] [place] [id number] [address] [place] [address] Aug, Iron deficiency anemia due t o chronic blood loss D50.0 [place] [address] [facility] [id number] [address] [place] [address] Aug, Peripheral vascular disease, unspecified I73.9 and Colitis K52.9 [place] [address] [facility] [id number] [address] [place] [address] 14 Aug, 2016 H/O: GI bleed Z87.19 [place] [address] [place] [id number] [address] [place] [address] Aug, CVA (cerebral vascular accid ent) I63.9 [facility] [address] [id number] [address] [place] [address] Aug, RUQ abdominal pain R10.11 [facility] [address] [id number] [address] [place] [address] July, RUQ abdominal pain R10.11 an d Lymphocytosis D72.820 [facility] [address] [id number] [address] [place] [address] July, [facility] [address] [facility] [id number] [address] [place] [address] July, Colitis K52.9 [facility] [id number] [place] [address] [id number] July, [facility] [address] [facility] [id number] [address] [place] [address] Jun, Right flank pain R10.9 [facility] [address] [id number] [address] [place] [address] May, Urinary tract infection with out hematuria, site unspecified N39.0 and Right flank pain R10.9 [facility] [address] [id number] [address] [place] [address] Feb, Acute non-recurrent maxillar y sinusitis J01.00 and Need for hepatitis C screening test Z11.59 [facility] [address] [id number] [address] [place] [address] [id number] Jan, Dental examination Z01.20 [facility] [address] [id number] [address] [place] [address] [id number] Dec, Dental examination Z01.20 [facility] [address] [id number] [address] [place] [address] [id number] Dec, Dental examination Z01.20 [facility] [address] [id number] [address] [place] [address] Dec, [facility] [address] [facility] [id number] [address] [place] [address] Dec, [facility] [address] [place] [id number] [address] [place] [address] [id number] Dec, Dental examination Z01.20 [facility] [address] [facility] [id number] [address] [place] [address] Nov, [facility] [address] [place] [id number] [place] [address] [id number] Nov, Dental examination Z01.20 [facility] [address] [facility] [id number] [place] [address] Oct, Arthralgia, unspecified join t M25.50 and Essential hypertension I10 [facility] [address] [place] [id number] [address] [place] [address] Oct, [facility] [address] [place] [id number] [address] [place] [phone] Sep, Bilateral otitis media, unsp ecified chronicity, unspecified otitis media type H66.93 [facility] [id number] [place] [address] [id number] Sep, Dental examination Z01.20 [facility] [address] [place] [id number] [address] [place] [address] [id number] Aug, Dental examination V72.2 [facility] [address] [place] [id number] [address] [place] [address] 14 Aug, 2015 Essential hypertension I10 a nd Muscle cramping R25.2 [facility] [address] [place] [id number] [address] [place] [address] 09 Aug, 2015 Tension-type headache, not i ntractable, unspecified chronicity pattern G44.209 ; Muscle cramping R25.2 and Right leg pain M79.604 [facility] [id number] [place] [address] [id number] July, Dental examination Z01.20 [facility] [address] [facility] [id number] [address] [place] [address] [id number] July, Encounter for dental examina tion and cleaning without abnormal findings Z01.20 and Dental caries K02.9 [facility] [address] [id number] [address] [place] [address] [id number] Jun, Encounter for dental examina tion Z01.20 [facility] [address] [place] [id number] [address] [place] [address] Apr, [facility] [address] [address] 02 Apr, 2015 Bronchitis J40 [place] [address] [phone] 09 Feb, 2015 Hyperlipemia E78.5 ; Carotid arterial disease I77.9 ; Tobacco use Z72.0 ; Hypertension I10 ; RBBB I45.10 and CVA (cerebral vascular accident) I63.9 [place] [address] [place] [id number] [address] [place] [address] Feb, Status post CVA Z86.73 ; Dys function of right eustachian tube H69.81 and Essential hypertension I10 [place] [address] [place] [id number] [address] [place] [address] Dec, Encounter for immunization Z 23 [place] [address] [place] [id number] [address] [place] [address] Oct, PVD (peripheral vascular dis ease) 443.9 and Weight loss 783.21 [place] [address] [phone] 24 Oct, 2014 PVD (peripheral vascular dis ease) 443.9 and Weight loss 783.21 [place] [address] [place] [id number] [address] [place] [address] Aug, Hyperlipidemia 272.4 ; Carot id arterial disease 447.9 ; Tobacco dependency 305.1 ; Hypertension 401.9 ; RBBB 426.4 and CVA (cerebral infarction) 434.91 [place] [address] [place] [id number] [address] [place] [address] Aug, [facility] [address] [place] [id number] [address] [place] [phone] Aug, Pseudoaneurysm following pro cedure 997.79 [place] [address] [place] [id number] [address] [place] [address] July, Chest pain, unspecified 786. 50 ; [...] for prophylactic vaccination and inoculation, Influenza V04.81 [place] [address] [place] [id number] [address] [place] [phone] Jun, [place] [address] [place] [id number] [address] [place] [phone] Jun, [place] [address] [place] [id number] [address] [place] [address] May, [place] [address] [place] [id number] [address] [place] [phone] May, [place] [address] [place] [id number] [address] [place] [phone] May, [facility] [address] [id number] [address] [place] [address], [place] [address] May, [facility] [address] [id number] [address] [place] [address], [place] [address] Mar, [facility] [address] [id number] [address] [place] [address], [place] [address] Mar, [facility] [address] [id number] [address] [place] [address], [place] [address] Mar, [facility] [address] [id number] [address] [place] [address], [place] [address] Mar, [facility] [address] [id number] [address] [place] [address], [place] [address] Mar, [facility] [address] [id number] [address] [place] [address], [place] [address] Mar, [facility] [address] [id number] [address] [place] [address], [place] [address] Mar, [facility] [address] [id number] [address] [place] [address], [place] [address] Mar, [facility] [address] [id number] [address] [place] [address], [place] [address] Mar, [facility] [address] [id number] [address] [place] [address], [place] [address] Mar, [facility] [address] [id number] [address] [place] [address], [place] [address] Feb, [facility] [address] [id number] [address] [place] [address], [place] [address] Feb, [facility] [address] [id number] [address] [place] [address], [place] [address] Feb, [facility] [address] [id number] [address] [place] [address], [place] [address] Feb, [facility] [address] [id number] [address] [place] [address], [place] [address] Feb, [facility] [address] [id number] [address] [place] [address], [place] [address] Feb, [facility] [address] [id number] [address] [place] [address], [place] [address] Feb, [facility] [address] [id number] [address] [place] [address], [place] [address] Feb, [facility] [address] [id number] [address] [place] [address], [place] [address] Jan, [facility] [address] [id number] [address] [place] [address], [place] [address] Jan, [facility] [address] [id number] [address] [place] [address], [place] [address] Nov, [facility] [address] [id number] [address] [place] [address], [place] [address] Nov, [facility] [address] [id number] [address] [place] [address], [place] [address] Sep, [facility] [address] [id number] [address] [place] [address], [place] [address] Sep, [facility] [address] [id number] [address] [place] [address], [place] [address] Sep, [facility] [address] [id number] [address] [place] [address], [place] [address] Sep, [facility] [address] [id number] [address] [place] [address], [place] [address] Aug, [facility] [address] [id number] [address] [place] [address], [place] [address] Aug, [facility] [address] [id number] [address] [place] [address], [place] [address] Aug, [facility] [address] [id number] [address] [place] [address], [place] [address] Aug, [facility] [address] [id number] [address] [place] [address], [place] [address] Aug, [facility] [address] [id number] [address] [place] [address], [place] [address] Aug, [facility] [address] [id number] [address] [place] [address], [place] [address] July, [facility] [address] [id number] [address] [place] [address], [place] [address] July, [facility] [address] [id number] [address] [place] [address], [place] [address] July, [facility] [address] [id number] [address] [place] [address], [place] [address] July, [facility] [address] [id number] [address] [place] [address], [place] [address] Jun, [facility] [address] [id number] [address] [place] [address], [place] [address] Jun, [facility] [address] [id number] [address] [place] [address], [place] [address] Apr, [facility] [address] [id number] [address] [place] [address], [place] [address] Apr, [facility] [address] [id number] [address] [place] [address], [place] [address] Apr, [facility] [address] [id number] [address] [place] [address], [place] [address] Apr, [facility] [address] [id number] [address] [place] [address], [place] [address] Apr, [facility] [address] [id number] [address] [place] [address], [place] [address] Apr, [facility] [address] [id number] [address] [place] [address], [place] [address] Mar, [facility] [address] [id number] [address] [place] [address], [place] [address] 31 Mar, 2013 [facility] [address] [id number] [address] [place] [address], [place] [address] Mar, [facility] [address] [id number] [address] [place] [address], [place] [address] Mar, [facility] [address] [id number] [address] [place] [address], [place] [address] Mar, [facility] [address] [id number] [address] [place] [address], [place] [address] Feb, [facility] [address] [id number] [address] [place] [address], [place] [address] Feb, [facility] [address] [id number] [address] [place] [address], [place] [address] Feb, [facility] [address] [id number] [address] [place] [address], [place] [address] Feb, [facility] [address] [id number] [address] [place] [address], [place] [address] Feb, [facility] [address] [id number] [address] [place] [address], [place] [address] Feb, [facility] [address] [id number] [address] [place] [address], [place] [address] 06 Feb, 2013 [facility] [address] [id number] [address] [place] [address], [place] [address] Feb, [facility] [address] [id number] [address] [place] [address], [place] [address] Feb, [facility] [address] [id number] [address] [place] [address], [place] [address] Feb, [facility] [address] [id number] [address] [place] [address], [place] [address] Feb, [facility] [address] [id number] [address] [place] [address], [place] [address] Feb, [facility] [address] [id number] [address] [place] [address], [place] [address] Jan, [facility] [address] [id number] [address] [place] [address], [place] [address] Jan, [facility] [address] [id number] [address] [place] [address], [place] [address] Jan, [facility] [address] [id number] [address] [place] [address], [place] [address] Jan, [facility] [address] [id number] [address] [place] [address], [place] [address] Jan, [facility] [address] [id number] [address] [place] [address], [place] [address] Jan, [facility] [address] [id number] [address] [place] [address], [place] [address] Jan, [facility] [address] [id number] [address] [place] [address] Jan, [facility] [address] [id number] [address] [place] [address], [place] [address] Jan, [facility] [address] [id number] [address] [place] [address] Jan, [facility] [address] [id number] [address] [place] [address] Jan, [facility] [address] [id number] [address] [place] [address] Jan, [facility] [address] [id number] [address] [place] [address], [place] [address] Jan, [facility] [address] [id number] [address] [place] [id number] Jan, [facility] [address] [id number] [address] [place] [id number] Jan, [facility] [address] [id number] [address] [place] [id number] Dec, [facility] [address] [id number] [address] [place] [address], [place] [address] Dec, [facility] [address] [id number] [address] [place] [address], [place] [address] Dec, [facility] [address] [id number] [address] [place] [address], [place] [address] Dec, [facility] [address] [id number] [address] [place] [address], [place] [address] Oct, [facility] [address] [id number] [address] [place] [address], [place] [address] Oct, [facility] [address] [id number] [address] [place] [address], [place] [address] Oct, [facility] [address] [id number] [address] [place] [address], [place] [address] Sep, [facility] [address] [id number] [address] [place] [address], [place] [address] Aug, [facility] [address] [id number] [address] [place] [address], [place] [address] July, [facility] [address] [id number] [address] [place] [address], [place] [address] July, [facility] [address] [id number] [address] [place] [address], [place] [address] July, [facility] [address] [id number] [address] [place] [address], [place] [address] July, [facility] [address] [id number] [address] [place] [address], [place] [address] May, [facility] [address] [id number] [address] [place] [address], [place] [address] May, [facility] [address] [id number] [address] [place] [address], [place] [address] Mar, [facility] [address] [id number] [address] [place] [address], [place] [address] Mar, [facility] [address] [id number] [address] [place] [address], [place] [address] Mar, [facility] [address] [id number] [address] [place] [address], [place] [address] Feb, [facility] [address] [id number] [address] [place] [address], [place] [address] Feb, [facility] [address] [id number] [address] [place] [address], [place] [address] Feb, [facility] [address] [id number] [address] [place] [address], [place] [address] Feb, [facility] [address] [id number] [address] [place] [address], [place] [address] Feb, [facility] [address] [id number] [address] [place] [address], [place] [address] Feb, [facility] [address] [id number] [address] [place] [address], [place] [address] Jan, [facility] [address] [id number] [address] [place] [address], [place] [address] Jan, [facility] [address] [id number] [address] [place] [address], [place] [address] Jan, [facility] [address] [id number] [address] [place] [address], [place] [address] Jan, [facility] [address] [id number] [address] [place] [address], [place] [address] Jan, [facility] [address] [id number] [address] [place] [address], [place] [address] Jan, [facility] [address] [id number] [address] [place] [address], [place] [address] Jan, [facility] [address] [id number] [address] [place] [address] [address] Jan, [facility] [address] [id number] [address] [place] [address], [place] [address] Dec, [facility] [address] [id number] [address] [place] [address], [place] [address] Dec, [facility] [address] [id number] [address] [place] [address], [place] [address] Dec, [facility] [address] [id number] [address] [place] [address], [place] [address] Dec, [facility] [address] [id number] [address] [place] [address], [place] [address] Oct, [facility] [address] [id number] [address] [place] [address], [place] [address] Sep, [facility] [address] [id number] [address] [place] [address], [place] [address] Sep, [facility] [address] [id number] [address] [place] [address], [place] [address] Sep, [facility] [address] [id number] [address] [place] [address], [place] [address] Sep, [facility] [address] [id number] [address] [place] [address], [place] [address] Jun, [facility] [address] [id number] [address] [place] [address], [place] [address] May, [facility] [address] [id number] [address] [place] [address], [place] [address] Apr, [facility] [address] [id number] [address] [place] [address], [place] [address] Apr, [facility] [address] [id number] [address] [place] [address], [place] [address] Apr, [facility] [address] [id number] [address] [place] [address], [place] [address] Feb, [facility] [address] [id number] [address] [place] [address], [place] [address] 12 Feb, 2011 [facility] [address] [id number] [address] [place] [address], [place] [address] 30 Jan, 2011 [facility] [address] [id number] [address] [place] [address], [place] [address] 28 Jan, 2011 [facility] [address] [id number] [address] [place] [address], [place] [address] 09 Jan, 2011 [facility] [address] [id number] [address] [place] [address], [place] [address] 31 Feb, 2010 [facility] [address] [id number] [address] [place] [address], [place] [address] 30 Feb, 2010 [facility] [address] [id number] [address] [place] [address], [place] [address] 30 Feb, 2010 [facility] [address] [id number] [address] [place] [address], [place] [address] 30 Feb, 2010 [facility] [address] [id number] [address] [place] [address], [place] [address] 27 Feb, 2010 [facility] [address] [id number] [address] [place] [address], [place] [address] 23 Feb, 2010 [facility] [address] [id number] [address] [place] [address], [place] [address] 20 Feb, 2010 [facility] [address] [id number] [address] [place] [address], [place] [address] 18 Feb, 2010 [facility] [address] [id number] [address] [place] [address], [place] [address] 18 Feb, 2010 [facility] [address] [id number] [address] [place] [address], [place] [address] 06 Feb, 2010 [facility] [address] [id number] [address] [place] [address], [place] [address] Jan, [facility] [address] [id number] [address] [place] [address], [place] [address] Dec, [facility] [address] [id number] [address] [place] [address] Nov, [facility] [address] [id number] [address] [place] [address] Mar, [facility] [address] [id number] [address] [place] [address] Jan, [facility] [address] [id number] [address] [place] [address] Dec, [facility] [address] [id number] [address] [place] [address] Dec, [facility] [address] [id number] [address] [place] [address] Sep, [facility] [address] [id number] [address] [place] [address] Jun, [facility] [address] [id number] [address] [place] [id number] Mar, [facility] [address] [id number] [address] [place] [address] Jan, IMMUNIZATIONS No Known Immunizations SOCIAL HISTORY Never Assessed REASON FOR VISIT [facility] PLAN OF CARE VITAL SIGNS MEDICATIONS Unknown [...]
--- OUTSIDE RECORDS SUMMARY | 2019-08-06 08:01 | XMS REPORT ---
Author Author Lavern Polo Doctor Organization [facility] Address Unknown Phone Unavailable Care Team Providers Care Computer Training Specialist Name Role Phone Migration, Doctor Unavailable Unavailable PROBLEMS Type Condition ICD9-CM Code NEO11-KN Code Onset Dates Condition S tatus SNOMED Code Problem Cataracts, bilateral H26.9 Active 04235976 Problem CVA (cerebral vascular accident) I63.9 Active 450382232 Problem Hyperlipemia E78.5 Active 0396384 4 Problem Lymphocytosis D72.820 Active 811189 09 Problem Peripheral vascular disease, unspecified I73.9 Active 439192500 Problem Iron deficiency anemia due to chronic blood loss D 50.0 Active 557435500 Problem Thyroid nodule E04.1 Active 25318 5005 Problem Dysfunction of right eustachian tube H69.81 Active 21721267 Problem Post-surgical 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 A ctive 43229593 Problem 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 2755 44444 Problem Diverticulitis of intestine without perforation or abscess without bleeding, unspecified part of intestinal tract K57.92 Active 964747672 Problem Essential hypertension I10 Active 79530305 Problem Lung nodule, solitary R91.1 Active 756845333 Problem 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 of 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 Active [id number] ALLERGIES No Information ENCOUNTERS Encounter Location Date Diagnosis [place] [address] [facility] [id number] [address] [place] [phone] May, Post-surgical 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 and Peripheral vascular disease, unspecified I73.9 [facility] [address] [facility] [id number] [address] [place] [address] Mar, [place] [address] [place] [id number] [address] [place] [address] Mar, Post-surgical 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 [place] [address] [facility] [id number] [address] [place] [address] Jan, Nodular thyroid disease E04. 1 ; Lung mass R91.8 ; Iron deficiency anemia due to chronic blood loss D50.0 ; Essential hypertension I10 and 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 of 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 [facility] [address] [id number] [address] [place] [address] [id number] Dec, Dental examination Z01.20 [facility] [address] [facility] [id number] [address] [place] [address] Dec, Thyroid nodule E04.1 [facility] [address] [id number] [address] [place] [address] Oct, Lung nodule, solitary R91.1 [facility] [address] [facility] [id number] [address] [place] [id number] Oct, [facility] [address] [facility] [id number] [address] [place] [phone] Oct, [facility] [address] [facility] [id number] [address] [place] [address] Oct, [facility] [address] [facility] [id number] [address] [place] [address] Sep, [facility] [address] [facility] [id number] [address] [place] [address] Aug, [facility] [address] [facility] [id number] [address] [place] [address] July, Arthralgia, unspecified join t M25.50 ; Essential hypertension I10 ; Seborrheic keratosis L82.1 and LLQ abdominal pain R10.32 [facility] [address] [facility] [id number] [address] [place] [address] Feb, Arthralgia, unspecified join t M25.50 [facility] [address] [facility] [id number] [address] [place] [address] Feb, Arthralgia, unspecified join t M25.50 [facility] [address] [facility] [id number] [address] [place] [address] Dec, Arthralgia, unspecified join t M25.50 [place] [address] [address] Dec, Right flank pain R10.9 ; Lef t foot pain M79.672 ; Arthralgia, unspecified joint M25.50 and Encounter for immunization Z23 [place] [address] [address] 09 Dec, 2016 CVA (cerebral vascular accid ent) I63.9 [place] [address] [place] [id number] [address] [place] [address] Dec, RUQ abdominal pain R10.11 [place] [address] [address] Dec, Right lower quadrant pain R1 0.31 ; Diverticulitis of intestine without perforation or abscess without bleeding, unspecified part of intestinal tract K57.92 and Internal hemorrhoids K64.8 [place] [address] [address] Nov, [place] [address] [address] Oct, [place] [address] [address] Aug, Iron deficiency anemia due t o chronic blood loss D50.0 [place] [address] [address] Aug, Peripheral vascular disease, unspecified I73.9 and Colitis K52.9 [place] [address] [address] 14 Aug, 2016 H/O: GI bleed Z87.19 [place] [address] [place] [id number] [address] [place] [phone] 07 Aug, 2016 CVA (cerebral vascular accid ent) I63.9 [place] [address] [place] [id number] [address] [place] [address] Aug, RUQ abdominal pain R10.11 [facility] [address] [id number] [address] [place] [address] July, RUQ abdominal pain R10.11 an d Lymphocytosis D72.820 [facility] [address] [id number] [address] [place] [address] July, [facility] [address] [id number] [address] [place] [address] July, Colitis K52.9 [facility] [id number] [place] [address] [id number] July, [facility] [address] [id number] [address] [place] [address] Jun, Right flank pain R10.9 [facility] [address] [id number] [address] [place] [address] May, Urinary tract infection with out hematuria, site unspecified N39.0 and Right flank pain R10.9 [facility] [address] [id number] [address] [place] [address] Feb, Acute non-recurrent maxillar y sinusitis J01.00 and Need for hepatitis C screening test Z11.59 [facility] [address] [id number] [address] [place] [address] [id number] Jan, Dental examination Z01.20 [facility] [address] [id number] [address] [place] [address] [id number] Dec, Dental examination Z01.20 [facility] [address] [id number] [address] [place] [address] [id number] Dec, Dental examination Z01.20 [facility] [address] [id number] [address] [place] [address] Dec, [facility] [address] [id number] [address] [place] [address] Dec, [facility] [address] [id number] [address] [place] [address] [id number] Dec, Dental examination Z01.20 [facility] [address] [id number] [address] [place] [id number] 28 Nov, 2015 [facility] [id number] [place] [address] [id number] 13 Nov, 2015 Dental examination Z01.20 [facility] [address] [id number] [address] [place] [phone] 23 Oct, 2015 Arthralgia, unspecified join t M25.50 and Essential hypertension I10 [facility] [address] [facility] [id number] [place] [phone] Oct, [facility] [address] [facility] [id number] [place] [address] Sep, Bilateral otitis media, unsp ecified chronicity, unspecified otitis media type H66.93 [facility] [address] [id number] [place] [address] [id number] Sep, Dental examination Z01.20 [facility] [address] [id number] [place] [address] [id number] 16 Aug, 2015 Dental examination V72.2 [facility] [address] [address] 14 Aug, 2015 Essential hypertension I10 a nd Muscle cramping R25.2 [facility] [address] [id number] [address] [place] [id number] 09 Aug, 2015 Tension-type headache, not i ntractable, unspecified chronicity pattern G44.209 ; Muscle cramping R25.2 and Right leg pain M79.604 [facility] [address] [id number] [address] [place] [address] [id number] July, Dental examination Z01.20 [facility] [address] [id number] [place] [address] [id number] July, Encounter for dental examina tion and cleaning without abnormal findings Z01.20 and Dental caries K02.9 [facility] [address] [facility] [id number] [address] [place] [address] [id number] Jun, Encounter for dental examina tion Z01.20 [facility] [address] [place] [id number] [address] [place] [phone] 26 Apr, 2015 [facility] [address] [address] 02 Apr, 2015 Bronchitis J40 [place] [address] [address] 09 Feb, 2015 Hyperlipemia E78.5 ; Carotid arterial disease I77.9 ; Tobacco use Z72.0 ; Hypertension I10 ; RBBB I45.10 and CVA (cerebral vascular accident) I63.9 [place] [address] [address] Feb, Status post CVA Z86.73 ; Dys function of right eustachian tube H69.81 and Essential hypertension I10 [place] [address] [address] 02 Dec, 2014 Encounter for immunization Z 23 [place] [address] [address] Oct, PVD (peripheral vascular dis ease) 443.9 and Weight loss 783.21 [place] [address] [address] 24 Oct, 2014 PVD (peripheral vascular dis ease) 443.9 and Weight loss 783.21 [place] [address] [address] Aug, Hyperlipidemia 272.4 ; Carot id arterial disease 447.9 ; Tobacco dependency 305.1 ; Hypertension 401.9 ; RBBB 426.4 and CVA (cerebral infarction) 434.91 [place] [address] [place] [address] Aug, [facility] [address] [place] [id number] [address] [place] [phone] Aug, Pseudoaneurysm following pro cedure 997.79 [facility] [address] [place] [id number] [address] [place] [address] July, Chest pain, unspecified 786. 50 ; [...] for prophylactic vaccination and inoculation, Influenza V04.81 [facility] [address] [place] [id number] [address] [place] [address] Jun, [facility] [address] [place] [id number] [address] [place] [address] Jun, [facility] [id number] [place] [phone] May, [facility] [address] [place] [id number] [address] [place] [id number] May, [facility] [address] [place] [id number] [address] [place] [phone] May, [facility] [address] [place] [id number] [address] [place] [phone] May, [facility] [address] [id number] [address] [place] [address], [place] [address] Mar, [facility] [address] [id number] [address] [place] [address], [place] [address] Mar, [facility] [address] [id number] [address] [place] [address], [place] [address] Mar, [facility] [address] [id number] [address] [place] [address], [place] [address] Mar, [facility] [address] [id number] [address] [place] [address], [place] [address] Mar, [facility] [address] [id number] [address] [place] [address], [place] [address] Mar, [facility] [address] [id number] [address] [place] [address], [place] [address] Mar, [facility] [address] [id number] [address] [place] [address], [place] [address] Mar, [facility] [address] [id number] [address] [place] [address], [place] [address] Mar, [facility] [address] [id number] [address] [place] [address], [place] [address] Mar, [facility] [address] [id number] [address] [place] [address], [place] [address] Feb, [facility] [address] [id number] [address] [place] [address], [place] [address] Feb, [facility] [address] [id number] [address] [place] [address], [place] [address] Feb, [facility] [address] [id number] [address] [place] [address], [place] [address] Feb, [facility] [address] [id number] [address] [place] [address], [place] [address] Feb, [facility] [address] [id number] [address] [place] [address], [place] [address] Feb, [facility] [address] [id number] [address] [place] [address], [place] [address] Feb, [facility] [address] [id number] [address] [place] [address], [place] [address] Feb, [facility] [address] [id number] [address] [place] [address], [place] [address] Jan, [facility] [address] [id number] [address] [place] [address], [place] [address] Jan, [facility] [address] [id number] [address] [place] [address], [place] [address] Nov, [facility] [address] [id number] [address] [place] [address], [place] [address] Nov, [facility] [address] [id number] [address] [place] [address], [place] [address] Sep, [facility] [address] [id number] [address] [place] [address], [place] [address] Sep, [facility] [address] [id number] [address] [place] [address], [place] [address] Sep, [facility] [address] [id number] [address] [place] [address], [place] [address] Sep, [facility] [address] [id number] [address] [place] [address], [place] [address] Aug, [facility] [address] [id number] [address] [place] [address], [place] [address] Aug, [facility] [address] [id number] [address] [place] [address], [place] [address] Aug, [facility] [address] [id number] [address] [place] [address], [place] [address] Aug, [facility] [address] [id number] [address] [place] [address], [place] [address] Aug, [facility] [address] [id number] [address] [place] [address], [place] [address] Aug, [facility] [address] [id number] [address] [place] [address], [place] [address] July, [facility] [address] [id number] [address] [place] [address], [place] [address] July, [facility] [address] [id number] [address] [place] [address], [place] [address] July, [facility] [address] [id number] [address] [place] [address], [place] [address] July, [facility] [address] [id number] [address] [place] [address], [place] [address] Jun, [facility] [address] [id number] [address] [place] [address], [place] [address] Jun, [facility] [address] [id number] [address] [place] [address], [place] [address] Apr, [facility] [address] [id number] [address] [place] [address], [place] [address] Apr, [facility] [address] [id number] [address] [place] [address], [place] [address] Apr, [facility] [address] [id number] [address] [place] [address], [place] [address] Apr, [facility] [address] [id number] [address] [place] [address], [place] [address] Apr, [facility] [address] [id number] [address] [place] [address], [place] [address] Apr, [facility] [address] [id number] [address] [place] [address], [place] [address] Mar, [facility] [address] [id number] [address] [place] [address], [place] [address] Mar, [facility] [address] [id number] [address] [place] [address] Mar, [facility] [address] [id number] [address] [place] [address], [place] [address] Mar, [facility] [address] [id number] [address] [place] [address], [place] [address] Mar, [facility] [address] [id number] [address] [place] [address], [place] [address] Feb, [facility] [address] [id number] [address] [place] [address], [place] [address] Feb, [facility] [address] [id number] [address] [place] [address], [place] [address] Feb, [facility] [address] [id number] [address] [place] [address], [place] [address] Feb, [facility] [address] [id number] [address] [place] [address], [place] [address] Feb, [facility] [address] [id number] [address] [place] [address], [place] [address] Feb, [facility] [address] [id number] [address] [place] [address], [place] [address] Feb, [facility] [address] [id number] [address] [place] [address], [place] [address] Feb, [facility] [address] [id number] [address] [place] [address], [place] [address] Feb, [facility] [address] [id number] [address] [place] [address], [place] [address] Feb, [facility] [address] [id number] [address] [place] [address], [place] [address] Feb, [facility] [address] [id number] [address] [place] [address], [place] [address] Feb, [facility] [address] [id number] [address] [place] [address], [place] [address] Jan, [facility] [address] [id number] [address] [place] [address], [place] [address] Jan, [facility] [address] [id number] [address] [place] [address], [place] [address] Jan, [facility] [address] [id number] [address] [place] [address], [place] [address] Jan, [facility] [address] [id number] [address] [place] [address], [place] [address] Jan, [facility] [address] [id number] [address] [place] [address], [place] [address] Jan, [facility] [address] [id number] [address] [place] [address], [place] [address] Jan, [facility] [address] [id number] [address] [place] [address], [place] [address] Jan, [facility] [address] [id number] [address] [place] [address], [place] [address] Jan, [facility] [address] [id number] [address] [place] [address], [place] [address] Jan, [facility] [address] [id number] [address] [place] [address], [place] [address] Jan, [facility] [address] [id number] [address] [place] [address], [place] [address] Jan, [facility] [address] [id number] [address] [place] [address], [place] [address] Jan, [facility] [address] [id number] [address] [place] [address], [place] [address] Jan, [facility] [address] [id number] [address] [place] [address], [place] [address] Jan, [facility] [address] [id number] [address] [place] [address], [place] [address] Dec, [facility] [address] [id number] [address] [place] [address], [place] [address] Dec, [facility] [address] [id number] [address] [place] [address], [place] [address] Dec, [facility] [address] [id number] [address] [place] [address], [place] [address] Dec, [facility] [address] [id number] [address] [place] [address], [place] [address] Oct, [facility] [address] [id number] [address] [place] [address], [place] [address] Oct, [facility] [address] [id number] [address] [place] [address], [place] [address] Oct, [facility] [address] [id number] [address] [place] [address], [place] [address] Sep, [facility] [address] [id number] [address] [place] [address], [place] [address] Aug, [facility] [address] [id number] [address] [place] [address], [place] [address] July, [facility] [address] [id number] [address] [place] [address], [place] [address] July, [facility] [address] [id number] [address] [place] [address], [place] [address] July, [facility] [address] [id number] [address] [place] [address], [place] [address] July, [facility] [address] [id number] [address] [place] [address], [place] [address] May, [facility] [address] [id number] [address] [place] [address], [place] [address] May, [facility] [address] [id number] [address] [place] [address], [place] [address] Mar, [facility] [address] [id number] [address] [place] [address], [place] [address] Mar, [facility] [address] [id number] [address] [place] [address], [place] [address] 17 Mar, 2012 [facility] [address] [id number] [address] [place] [address], [place] [address] Feb, [facility] [address] [id number] [address] [place] [address], [place] [address] Feb, [facility] [address] [id number] [address] [place] [address], [place] [address] Feb, [facility] [address] [id number] [address] [place] [address], [place] [address] Feb, [facility] [address] [id number] [address] [place] [address], [place] [address] Feb, [facility] [address] [id number] [address] [place] [address], [place] [address] Feb, [facility] [address] [id number] [address] [place] [address], [place] [address] Jan, [facility] [address] [id number] [address] [place] [address], [place] [address] Jan, [facility] [address] [id number] [address] [place] [address], [place] [address] Jan, [facility] [address] [id number] [address] [place] [address], [place] [address] Jan, [facility] [address] [id number] [address] [place] [address], [place] [address] Jan, [facility] [address] [id number] [address] [place] [address], [place] [address] Jan, [facility] [address] [id number] [address] [place] [address], [place] [address] Jan, [facility] [address] [id number] [address] [place] [address], [place] [address] Jan, [facility] [address] [id number] [address] [place] [address], [place] [address] Dec, [facility] [address] [id number] [address] [place] [address], [place] [address] Dec, [facility] [address] [id number] [address] [place] [address], [place] [address] Dec, [facility] [address] [id number] [address] [place] [address], [place] [address] Dec, [facility] [address] [id number] [address] [place] [address], [place] [address] Oct, [facility] [address] [id number] [address] [place] [address], [place] [address] Sep, [facility] [address] [id number] [address] [place] [address], [place] [address] Sep, [facility] [address] [id number] [address] [place] [address], [place] [address] Sep, [facility] [address] [id number] [address] [place] [address], [place] [address] Sep, [facility] [address] [id number] [address] [place] [address], [place] [address] Jun, [facility] [address] [id number] [address] [place] [address], [place] [address] May, [facility] [address] [id number] [address] [place] [address], [place] [address] Apr, [facility] [address] [id number] [address] [place] [address], [place] [address] Apr, [facility] [address] [id number] [address] [place] [address], [place] [address] Apr, [facility] [address] [id number] [address] [place] [address], [place] [address] Feb, [facility] [address] [id number] [address] [place] [address], [place] [address] Feb, [facility] [address] [id number] [address] [place] [address], [place] [address] 30 Jan, 2011 [facility] [address] [id number] [address] [place] [address], [place] [address] 28 Jan, 2011 [facility] [address] [id number] [address] [place] [address], [place] [address] 09 Jan, 2011 [facility] [address] [id number] [address] [place] [address], [place] [address] 31 Feb, 2010 [facility] [address] [id number] [address] [place] [address], [place] [address] 30 Feb, 2010 [facility] [address] [id number] [address] [place] [address], [place] [address] 30 Feb, 2010 [facility] [address] [id number] [address] [place] [address], [place] [address] 30 Feb, 2010 [facility] [address] [id number] [address] [place] [address], [place] [address] 27 Feb, 2010 [facility] [address] [id number] [address] [place] [address], [place] [address] 23 Feb, 2010 [facility] [address] [id number] [address] [place] [address], [place] [address] 20 Feb, 2010 [facility] [address] [id number] [address] [place] [address], [place] [address] 18 Feb, 2010 [facility] [address] [id number] [address] [place] [address], [place] [address] 18 Feb, 2010 [facility] [address] [id number] [address] [place] [address], [place] [address] 06 Feb, 2010 [facility] [address] [id number] [address] [place] [address], [place] [address] 26 Jan, 2010 [facility] [address] [id number] [address] [place] [address], [place] [address] 24 Dec, 2009 [facility] [address] [id number] [address] [place] [address], [place] [address] 14 Nov, 2009 [facility] [address] [id number] [address] [place] [id number] Mar, [facility] [address] [id number] [address] [place] [id number] Jan, [facility] [address] [id number] [address] [place] [phone] Dec, [facility] [address] [id number] [address] [place] [id number] Dec, [facility] [address] [id number] [address] [place] [phone] Sep, [facility] [address] [facility] [id number] [address] [place] [id number] Jun, [facility] [address] [facility] [id number] [address] [place] [id number] Mar, [facility] [address] [facility] [id number] [address] [place] [id number] Jan, IMMUNIZATIONS No Known Immunizations SOCIAL HISTORY Never Assessed [place]ASON FOR [place] [place] VITAL SIGNS MEDICATIONS No [...] Heart cath per [facility] Burton [facility]- hypotension 08/08 Hospitalization History Hematochezia-[facility] 07/27/16
[2019-08-06] MEDS ORDERED: NS IV 1000 ML 1,000 ML ONE (08:03)
[2019-08-06] MEDS ORDERED: HEParin (CATH LAB) 2,000 ML IV ONE (08:03)
[2019-08-06] MEDS ORDERED: LIDOCAINE 1% INJ 20 ML 20 ML VIAL ONE (08:03)
--- OUTSIDE RECORDS SUMMARY | 2019-08-06 08:06 | XMS REPORT | Continuity of Care Document ---
Demographics Preferred Language Unknown Marital Status Unknown Ep[employer]opalian Affiliation Unknown Race Unknown Ethnic Group Unknown Author Organization Unknown Address Unknown Phone Unavailable Allergies Active Description Code Type Severity Reaction Onset Reported/Identified Relationship to Patient Clinical Status Yes Flonase Drug Allergy N/A N/A 10/13/2008 Yes Flonase Drug Allergy 10/13/2008 Yes lisinopril Drug Allergy 10/13/2008 Yes MRI DYE MRI DYE Severe ANAPHYLAXIS 01/22/2013 Yes Gadolinium-Containing Contrast Media Drug Allergy N/A N/A 01/29/2013 Yes fluticasone [id number] Drug Aller gy Unknown RASH 03/21/2018 Medications There is no data. Problems Date Dx Coded Attending Type Code Diagnosis Diagnosed By 02/15/2008 ELVIA MIMS DO 729.5 Pain In Limb 02/15/2008 ELVIA MIMS DO 807.00 Closed Fracture Of Rib(s) Unspecified 02/15/2008 729.5 Pain In Limb 02/15/2008 807.00 Alecia sed Fracture Of Rib(s) Unspecified 02/15/2008 ELVIA MIMS DO 729.5 Pain In Limb 02/15/2008 ELVIA MIMS DO 807.00 Closed Fracture Of Rib(s) Unspecified 02/15/2008 729.5 Pain In Limb 02/15/2008 807.00 Alecia sed Fracture Of Rib(s) Unspecified 02/15/2008 ELVIA MIMS DO 729.5 Pain In Limb 02/15/2008 ELVIA MIMS DO 807.00 Closed Fracture Of Rib(s) Unspecified 02/15/2008 ELVIA MIMS DO 729.5 Pain In Limb 02/15/2008 ELVIA MIMS DO 807.00 Closed Fracture Of Rib(s) Unspecified 02/15/2008 729.5 Pain In Limb 02/15/2008 807.00 Alecia sed Fracture Of Rib(s) Unspecified 02/15/2008 729.5 Pain In Limb 02/15/2008 807.00 Alecia sed Fracture Of Rib(s) Unspecified 02/15/2008 729.5 Pain In Limb 02/15/2008 807.00 Alecia sed Fracture Of Rib(s) Unspecified 02/15/2008 ROSENDO BARROW MD 729.5 Pain In Limb 02/15/2008 ROSENDO BARROW MD 807.0 0 Closed Fracture Of Rib(s) Unspecified 02/15/2008 ROSENDO BARROW MD 729.5 Pain In Limb 02/15/2008 ROSENDO BARROW MD 807.0 0 Closed Fracture Of Rib(s) Unspecified 02/15/2008 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, DAY S 729.5 Pain In Limb 02/15/2008 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, DAY S 807.00 Closed Fracture Of Rib(s) Unspecified 02/15/2008 MIMS DO, ELVIA K 729.5 Pain In Limb 02/15/2008 MIMS DO, ELVIA K 807.00 Closed Fracture Of Rib(s) Unspecified 02/15/2008 ROSENDO BARROW MD 729.5 Pain In Limb 02/15/2008 ROSENDO BARROW MD 807.0 0 Closed Fracture Of Rib(s) Unspecified 02/15/2008 MIMS DO, ELVIA K 729.5 Pain In Limb 02/15/2008 MIMS DO, ELVIA K 807.00 Closed Fracture Of Rib(s) Unspecified 02/15/2008 ROSENDO BARROW MD 729.5 Pain In Limb 02/15/2008 ROSENDO BARROW MD 807.0 0 Closed Fracture Of Rib(s) Unspecified 02/15/2008 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, DAY S 729.5 Pain In Limb 02/15/2008 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, DAY S 807.00 Closed Fracture Of Rib(s) Unspecified 02/15/2008 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, DAY S 729.5 Pain In Limb 02/15/2008 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, DAY S 807.00 Closed Fracture Of Rib(s) Unspecified 02/15/2008 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, DAY S 729.5 Pain In Limb 02/15/2008 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, DAY S 807.00 Closed Fracture Of Rib(s) Unspecified 02/15/2008 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, DAY S 729.5 Pain In Limb 02/15/2008 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, DAY S 807.00 Closed Fracture Of Rib(s) Unspecified 02/15/2008 MIMS DO, ELVIA K 729.5 Pain In Limb 02/15/2008 MIMS DO, ELVIA K 807.00 Closed Fracture Of Rib(s) Unspecified 02/15/2008 MIMS DO, ELVIA K 729.5 Pain In Limb 02/15/2008 MIMS DO, ELVIA K 807.00 Closed Fracture Of Rib(s) Unspecified 02/15/2008 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, DAY S 729.5 Pain In Limb 02/15/2008 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, DAY S 807.00 Closed Fracture Of Rib(s) Unspecified 02/15/2008 DONTAE ALVA MD 729.5 Pain In Limb 02/15/2008 ARTIE ORTIZ, ALI 807.00 Closed Fracture Of Rib(s) Unspecified 02/15/2008 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, DAY S 729.5 Pain In Limb 02/15/2008 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, DAY S 807.00 Closed Fracture Of Rib(s) Unspecified 02/15/2008 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, DAY S 729.5 Pain In Limb 02/15/2008 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, DAY S 807.00 Closed Fracture Of Rib(s) Unspecified 02/15/2008 SCHROEDER DDS, HIRAM 72 9.5 Pain In Limb 02/15/2008 SCHROEDER DDS, HIRAM 807.00 Closed Fracture Of Rib(s) Unspecified 04/15/2008 MIMS DO, ELVIA K 401.1 ESSENTIAL HYPERTENSION BENIGN 04/15/2008 MIMS DO, ELVIA K 724.1 Pain In Thoracic Spine 04/15/2008 401.1 ESSE NTIAL HYPERTENSION BENIGN 04/15/2008 724.1 Pain In Thoracic Spine 04/15/2008 MIMS DO, ELVIA K 401.1 ESSENTIAL HYPERTENSION BENIGN 04/15/2008 MIMS DO, ELVIA K 724.1 Pain In Thoracic Spine 04/15/2008 401.1 ESSE NTIAL HYPERTENSION BENIGN 04/15/2008 724.1 Pain In Thoracic Spine 04/15/2008 MIMS DO ELVIA K 401.1 ESSENTIAL HYPERTENSION BENIGN 04/15/2008 MIMS DO ELVIA K 724.1 Pain In Thoracic Spine 04/15/2008 MIMS DO, ELVIA K 401.1 ESSENTIAL HYPERTENSION BENIGN 04/15/2008 MIMS DO, ELVIA K 724.1 Pain In Thoracic Spine 04/15/2008 401.1 ESSE NTIAL HYPERTENSION BENIGN 04/15/2008 724.1 Pain In Thoracic Spine 04/15/2008 401.1 ESSE NTIAL HYPERTENSION BENIGN 04/15/2008 724.1 Pain In Thoracic Spine 04/15/2008 401.1 ESSE NTIAL HYPERTENSION BENIGN 04/15/2008 724.1 Pain In Thoracic Spine 04/15/2008 ROSENDO BARROW MD 401.1 ESSENTIAL HYPERTENSION BENIGN 04/15/2008 ROSENDO BARROW MD 724.1 Pain In Thoracic Spine 04/15/2008 ROSENDO BARROW MD 401.1 ESSENTIAL HYPERTENSION BENIGN 04/15/2008 ROSENDO BARROW MD 724.1 Pain In Thoracic Spine 04/15/2008 ELLEN ADAMS, DAY S 401.1 ESSENTIAL HYPERTENSION BENIGN 04/15/2008 ELLEN ADAMS, DAY S 724.1 Pain In Thoracic Spine [...] 724.1 Pain In Thoracic Spine 04/15/2008 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, DAY S 401.1 ESSENTIAL HYPERTENSION BENIGN 04/15/2008 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, DAY S 724.1 Pain In Thoracic Spine 04/15/2008 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, DAY S 401.1 ESSENTIAL HYPERTENSION BENIGN 04/15/2008 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, DAY S 724.1 Pain In Thoracic Spine 04/15/2008 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, DAY S 401.1 ESSENTIAL HYPERTENSION BENIGN 04/15/2008 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, DAY S 724.1 Pain In Thoracic Spine 04/15/2008 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, DAY S 401.1 ESSENTIAL HYPERTENSION BENIGN 04/15/2008 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, DAY S 724.1 Pain In Thoracic Spine 04/15/2008 MISM DO, ELVIA K 401.1 ESSENTIAL HYPERTENSION BENIGN 04/15/2008 MIMS DO, ELVIA K 724.1 Pain In Thoracic Spine 04/15/2008 MIMS DO, ELVIA K 401.1 ESSENTIAL HYPERTENSION BENIGN 04/15/2008 MIMS DO, ELVIA K 724.1 Pain In Thoracic Spine 04/15/2008 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, DAY S 401.1 ESSENTIAL HYPERTENSION BENIGN 04/15/2008 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, DAY S 724.1 Pain In Thoracic Spine 04/15/2008 DONTAE ALVA MD 401.1 ESSENTIAL HYPERTENSION BENIGN 04/15/2008 DONTAE ALVA MD 724.1 Pain In Thoracic Spine 04/15/2008 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, DAY S 401.1 ESSENTIAL HYPERTENSION BENIGN 04/15/2008 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, DAY S 724.1 Pain In Thoracic Spine 04/15/2008 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, DAY S 401.1 ESSENTIAL HYPERTENSION BENIGN 04/15/2008 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, DAY S 724.1 Pain In Thoracic Spine 04/15/2008 SCHROEDER DDS, HIRAM 40 1.1 ESSENTIAL HYPERTENSION BENIGN 04/15/2008 SCHROEDER DDS, HIRAM 72 4.1 Pain In Thoracic Spine 07/14/2008 ELVIA MIMS DO K 381.81 Dysfunction Of Eustachian Tube 07/14/2008 ELVIA MIMS DO K 625.6 Stress Incontinence Female 07/14/2008 381.81 Dys function Of Eustachian Tube 07/14/2008 625.6 Stre ss Incontinence Female 07/14/2008 LUCIO MIMS DOA K 381.81 Dysfunction Of Eustachian Tube 07/14/2008 LUCIO MIMS DOA K 625.6 Stress Incontinence Female 07/14/2008 381.81 Dys function Of Eustachian Tube 07/14/2008 625.6 Stre ss Incontinence Female 07/14/2008 LUCIO MIMS DOA K 381.81 Dysfunction Of Eustachian Tube 07/14/2008 MIMS DO, ELVIA K 625.6 Stress Incontinence Female 07/14/2008 LUCIO MIMS DOA K 381.81 Dysfunction Of Eustachian Tube 07/14/2008 MIMS DO ELVIA K 625.6 Stress Incontinence Female 07/14/2008 381.81 Dys function Of Eustachian Tube 07/14/2008 625.6 Stre ss Incontinence Female 07/14/2008 381.81 Dys function Of Eustachian Tube 07/14/2008 625.6 Stre ss Incontinence Female 07/14/2008 381.81 Dys function Of Eustachian Tube 07/14/2008 625.6 Stre ss Incontinence Female 07/14/2008 ROSENDO BARROW MD 381.8 1 Dysfunction Of Eustachian Tube 07/14/2008 ROSENDO BARROW MD 625.6 Stress Incontinence Female 07/14/2008 ROSENDO BARROW MD 381.8 1 Dysfunction Of Eustachian Tube 07/14/2008 ROSENDO BARROW MD 625.6 Stress Incontinence Female 07/14/2008 ALYSSA HUGHES APRNA S 381.81 Dysfunction Of Eustachian Tube 07/14/2008 ALYSSA HUGHES APRNA S 625.6 Stress Incontinence Female 07/14/2008 ELVIA MIMS DO K 381.81 Dysfunction Of Eustachian Tube 07/14/2008 LUCIO MIMS DOA K 625.6 Stress Incontinence Female 07/14/2008 ROSENDO BARROW MD 381.8 1 Dysfunction Of Eustachian Tube 07/14/2008 ROSENDO BARROW MD 625.6 Stress Incontinence Female 07/14/2008 ELIVA MIMS DO K 381.81 Dysfunction Of Eustachian Tube 07/14/2008 ELVIA MIMS DO K 625.6 Stress Incontinence Female 07/14/2008 ROSENDO BARROW MD 381.8 1 Dysfunction Of Eustachian Tube 07/14/2008 ROSENDO BARROW MD 625.6 Stress Incontinence Female 07/14/2008 MAGNUS HUGHES APRNNDA S 381.81 Dysfunction Of Eustachian Tube 07/14/2008 MAGNUS HUGHES APRNNDA S 625.6 Stress Incontinence Female 07/14/2008 MAGNUS HUGHES APRNNDA S 381.81 Dysfunction Of Eustachian Tube 07/14/2008 MAGNUS HUGHES APRNNDA S 625.6 Stress Incontinence Female 07/14/2008 ELLEN ADAMS DAY S 381.81 Dysfunction Of Eustachian Tube 07/14/2008 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 DAY S 625.6 Stress Incontinence Female 07/14/2008 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 DAY S 381.81 Dysfunction Of Eustachian Tube 07/14/2008 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, DAY S 625.6 Stress Incontinence Female 07/14/2008 [...] DAY S 625.6 Stress Incontinence Female 07/14/2008 ARTIE ORTIZ, DONTAE 381.81 Dysfunction Of Eustachian Tube 07/14/2008 DONTAE ALVA MD 625.6 Stress Incontinence Female 07/14/2008 ELLEN ADAMS DAY S 381.81 Dysfunction Of Eustachian Tube 07/14/2008 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, DAY S 625.6 Stress Incontinence Female 07/14/2008 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, DAY S 381.81 Dysfunction Of Eustachian Tube 07/14/2008 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, DAY S 625.6 Stress Incontinence Female 07/14/2008 HIRAM SCHROEDER DDS 381.81 Dysfunction Of Eustachian Tube 07/14/2008 HIRAM SCHROEDER DDS 62 5.6 Stress Incontinence Female 04/13/2009 MIMS DO, ELVIA K 386.10 Peripheral Vertigo 04/13/2009 MIMS DO ELVIA K 780.4 Dizziness And Giddiness 04/13/2009 386.10 Per ipheral Vertigo 04/13/2009 780.4 Dizz iness And Giddiness 04/13/2009 MIMS DO ELVIA K 386.10 Peripheral Vertigo 04/13/2009 MIMS DO, ELVIA K 780.4 Dizziness And Giddiness 04/13/2009 386.10 Per ipheral Vertigo 04/13/2009 780.4 Dizz iness And Giddiness 04/13/2009 MIMS DO, ELVIA K 386.10 Peripheral Vertigo 04/13/2009 MIMS DO, ELVIA K 780.4 Dizziness And Giddiness 04/13/2009 MIMS DO, ELVIA K 386.10 Peripheral Vertigo 04/13/2009 MIMS DO, ELVIA K 780.4 Dizziness And Giddiness 04/13/2009 386.10 Per ipheral Vertigo 04/13/2009 780.4 Dizz iness And Giddiness 04/13/2009 386.10 Per ipheral Vertigo 04/13/2009 780.4 Dizz iness And Giddiness 04/13/2009 386.10 Per ipheral Vertigo 04/13/2009 780.4 Dizz iness And Giddiness 04/13/2009 ROSENDO BARROW MD 386.1 0 Peripheral Vertigo 04/13/2009 ROSENDO BARROW MD 780.4 Dizziness And Giddiness 04/13/2009 ROSENDO BARROW MD 386.1 0 Peripheral Vertigo 04/13/2009 ROSENDO BARROW MD 780.4 Dizziness And Giddiness 04/13/2009 MAGNUS HUGHES APRNNDA S 386.10 Peripheral Vertigo 04/13/2009 ALYSSA HUGHES APRNA S 780.4 Dizziness And Giddiness 04/13/2009 MIMS DO, ELVIA K 386.10 Peripheral Vertigo 04/13/2009 MIMS DO, ELVIA K 780.4 Dizziness And Giddiness 04/13/2009 ROSENDO BARROW MD 386.1 0 Peripheral Vertigo 04/13/2009 ROSENDO BARROW MD 780.4 Dizziness And Giddiness 04/13/2009 MIMS DO, ELVIA K 386.10 Peripheral Vertigo 04/13/2009 MIMS DO, ELVIA K 780.4 Dizziness And Giddiness 04/13/2009 ROSENDO BARROW MD 386.1 0 Peripheral Vertigo 04/13/2009 ROSENDO BARROW MD 780.4 Dizziness And Giddiness 04/13/2009 ELLEN ADAMS DAY S 386.10 Peripheral Vertigo 04/13/2009 ELLEN ADAMS DAY S 780.4 Dizziness And Giddiness 04/13/2009 ELLEN ADAMS DAY S 386.10 Peripheral Vertigo 04/13/2009 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, DAY S 780.4 Dizziness And Giddiness 04/13/2009 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, DAY S 386.10 Peripheral Vertigo 04/13/2009 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, DAY S 780.4 Dizziness And Giddiness 04/13/2009 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, DAY S 386.10 Peripheral Vertigo 04/13/2009 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, DAY S 780.4 Dizziness And Giddiness 04/13/2009 MIMS DO, ELVIA K 386.10 Peripheral Vertigo 04/13/2009 MIMS DO, ELVIA K 780.4 Dizziness And Giddiness 04/13/2009 MIMS DO, ELVIA K 386.10 Peripheral Vertigo 04/13/2009 MIMS DO, ELVIA K 780.4 Dizziness And Giddiness 04/13/2009 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, DAY S 386.10 Peripheral Vertigo 04/13/2009 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, DAY S 780.4 Dizziness And Giddiness 04/13/2009 ARTIE ORTIZ, ALI 386.10 Peripheral Vertigo 04/13/2009 DONTAE ALVA MD 780.4 Dizziness And Giddiness 04/13/2009 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, DAY S 386.10 Peripheral Vertigo 04/13/2009 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, DAY S 780.4 Dizziness And Giddiness 04/13/2009 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, DAY S 386.10 Peripheral Vertigo 04/13/2009 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, DAY S 780.4 Dizziness And Giddiness 04/13/2009 SCHROEDERHIRAM POSEY DDS 386.10 Peripheral Vertigo 04/13/2009 SCHROEDER DDSHIRAM 78 0.4 Dizziness And Giddiness 06/16/2009 MIMS DO, ELVIA K 995.20 Unspecified Adverse Effect Of Unspecified Drug, Medicinal And Biological Substance, Not Elsewhere Classified 06/16/2009 995.20 Uns pecified Adverse Effect Of Unspecified Drug, Medicinal And Biological Substance, Not Elsewhere Classified 06/16/2009 MIMS DO, ELVIA K 995.20 Unspecified Adverse Effect Of Unspecified Drug, Medicinal And Biological Substance, Not Elsewhere Classified 06/16/2009 995.20 Uns pecified Adverse Effect Of Unspecified Drug, Medicinal And Biological Substance, Not Elsewhere Classified 06/16/2009 ELVIA MIMS DO 995.20 Unspecified Adverse Effect Of Unspecified Drug, Medicinal And Biological Substance, Not Elsewhere Classified 06/16/2009 ELVIA MIMS DO 995.20 Unspecified Adverse Effect Of Unspecified Drug, Medicinal And Biological Substance, Not Elsewhere Classified 06/16/2009 995.20 Uns pecified Adverse Effect Of Unspecified Drug, Medicinal And Biological Substance, Not Elsewhere Classified 06/16/2009 995.20 Uns pecified Adverse Effect Of Unspecified Drug, Medicinal And Biological Substance, Not Elsewhere Classified 06/16/2009 995.20 Uns pecified Adverse Effect Of Unspecified Drug, Medicinal And Biological Substance, Not Elsewhere Classified 06/16/2009 ROSENDO BARROW MD 995.2 0 Unspecified Adverse Effect Of Unspecified Drug, Medicinal And Biological Substance, Not Elsewhere Classified 06/16/2009 ROSENDO BARROW MD 995.2 0 Unspecified Adverse Effect Of Unspecified Drug, Medicinal And Biological Substance, Not Elsewhere Classified 06/16/2009 ALYSSA HUGHES APRNA S 995.20 Unspecified Adverse Effect Of Unspecifie d Drug, Medicinal And Biological Substance, Not Elsewhere Classified 06/16/2009 ELVIA MIMS DO K 995.20 Unspecified Adverse Effect Of Unspecified Drug, Medicinal And Biological Substance, Not Elsewhere Classified 06/16/2009 ROSENDO BARROW MD 995.2 0 Unspecified Adverse Effect Of Unspecified Drug, Medicinal And Biological Substance, Not Elsewhere Classified 06/16/2009 ELVIA MIMS DO K 995.20 Unspecified Adverse Effect Of Unspecified Drug, Medicinal And Biological Substance, Not Elsewhere Classified 06/16/2009 ROSENDO BARROW MD 995.2 0 Unspecified Adverse Effect Of Unspecified Drug, Medicinal And Biological Substance, Not Elsewhere Classified 06/16/2009 ELLEN ADAMS DAY S 995.20 Unspecified Adverse Effect Of Unspecifie d Drug, Medicinal And Biological Substance, Not Elsewhere Classified 06/16/2009 ELLEN ADAMS DAY S 995.20 Unspecified Adverse Effect Of Unspecifie d Drug, Medicinal And Biological Substance, Not Elsewhere Classified 06/16/2009 ELLEN ADAMS DAY S 995.20 Unspecified Adverse Effect Of Unspecifie d Drug, Medicinal And Biological Substance, Not Elsewhere Classified 06/16/2009 DAY HUGHES APRN S 995.20 Unspecified Adverse Effect Of Unspecifie d Drug, Medicinal And Biological Substance, Not Elsewhere Classified 06/16/2009 ELVIA MIMS DO K 995.20 Unspecified Adverse Effect Of Unspecified Drug, Medicinal And Biological Substance, Not Elsewhere Classified 06/16/2009 ELVIA MIMS DO K 995.20 Unspecified Adverse Effect Of Unspecified Drug, Medicinal And Biological Substance, Not Elsewhere Classified 06/16/2009 DAY HUGHES APRN 995.20 Unspecified Adverse Effect Of Unspecifie d Drug, Medicinal And Biological Substance, Not Elsewhere Classified 06/16/2009 ARTIE ORTIZ, DONTAE 995.20 Unspecified Adverse Effect Of Unspecified Drug, Medicinal And Biological Substance, Not Elsewhere Classified 06/16/2009 DAY HUGHES APRN S 995.20 Unspecified Adverse Effect Of Unspecifie d Drug, Medicinal And Biological Substance, Not Elsewhere Classified 06/16/2009 DAY HUGEHS APRN S 995.20 Unspecified Adverse Effect Of Unspecifie d Drug, Medicinal And Biological Substance, Not Elsewhere Classified 06/16/2009 ELDA PATTONSHIRAM 995.20 Unspecified Adverse Effect Of Unspecifie d Drug, Medicinal And Biological Substance, Not Elsewhere Classified 11/26/2009 ELVIA MIMS DO 724.2 LUMBAGO/ LOW BACK PAIN 11/26/2009 724.2 LUMB AGO/ LOW BACK PAIN 11/26/2009 ELVIA MIMS DO K 724.2 LUMBAGO/ LOW BACK PAIN 11/26/2009 724.2 LUMB AGO/ LOW BACK PAIN 11/26/2009 ELVIA MIMS DO K 724.2 LUMBAGO/ LOW BACK PAIN 11/26/2009 MIMS ELVIA FUNES K 724.2 LUMBAGO/ LOW BACK PAIN 11/26/2009 724.2 LUMB AGO/ LOW BACK PAIN 11/26/2009 724.2 LUMB AGO/ LOW BACK PAIN 11/26/2009 724.2 LUMB AGO/ LOW BACK PAIN 11/26/2009 PUSHPA ORTIZ, ROSENDO 724.2 LUMBAGO/ LOW BACK PAIN 11/26/2009 PUSHPA ORTIZ, ROSENDO 724.2 LUMBAGO/ LOW BACK PAIN 11/26/2009 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, DAY S 724.2 LUMBAGO/ LOW BACK PAIN 11/26/2009 MIMS DO, ELVIA K 724.2 LUMBAGO/ LOW BACK PAIN 11/26/2009 PUSHPA ORTIZ, ROSENDO 724.2 LUMBAGO/ LOW BACK PAIN 11/26/2009 MIMS DO, ELVIA K 724.2 LUMBAGO/ LOW BACK PAIN 11/26/2009 PUSHPA ORTIZ, ROSENDO 724.2 LUMBAGO/ LOW BACK PAIN 11/26/2009 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, DAY S 724.2 LUMBAGO/ LOW BACK PAIN 11/26/2009 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, DAY S 724.2 LUMBAGO/ LOW BACK PAIN 11/26/2009 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, DAY S 724.2 LUMBAGO/ LOW BACK PAIN 11/26/2009 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, DAY S 724.2 LUMBAGO/ LOW BACK PAIN 11/26/2009 MIMS DO, ELVIA K 724.2 LUMBAGO/ LOW BACK PAIN 11/26/2009 MIMS DO, ELVIA K 724.2 LUMBAGO/ LOW BACK PAIN 11/26/2009 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, DAY S 724.2 LUMBAGO/ LOW BACK PAIN 11/26/2009 ARTIE ORTIZ, DONTAE 724.2 LUMBAGO/ LOW BACK PAIN 11/26/2009 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, DAY S 724.2 LUMBAGO/ LOW BACK PAIN 11/26/2009 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, DAY S 724.2 LUMBAGO/ LOW BACK PAIN 11/26/2009 HIRAM SCHROEDER DDS 72 4.2 LUMBAGO/ LOW BACK PAIN 12/08/2009 MIMS ELVIA FUNES K 465.9 Acute Upper Respiratory Infections Of Unspecified Site 12/08/2009 465.9 Acut e Upper Respiratory Infections Of Unspecified Site 12/08/2009 ELVIA MIMS DO K 465.9 Acute Upper Respiratory Infections Of Unspecified Site 12/08/2009 465.9 Acut e Upper Respiratory Infections Of Unspecified Site 12/08/2009 ELVIA MIMS DO 465.9 Acute Upper Respiratory Infections Of Unspecified Site 12/08/2009 MIMS DO, ELVIA K 465.9 Acute Upper Respiratory Infections Of Unspecified Site 12/08/2009 465.9 Acut e Upper Respiratory Infections Of Unspecified Site 12/08/2009 465.9 Acut e Upper Respiratory Infections Of Unspecified Site 12/08/2009 465.9 Acut e Upper Respiratory Infections Of Unspecified Site 12/08/2009 ROSENDO BARROW MD 465.9 Acute Upper Respiratory Infections Of Unspecified Site 12/08/2009 ROSENDO BARROW MD 465.9 Acute Upper Respiratory Infections Of Unspecified Site 12/08/2009 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, DAY S 465.9 Acute Upper Respiratory Infections Of Unspecified Site 12/08/2009 MIMS DO, ELVIA K 465.9 Acute Upper Respiratory Infections Of Unspecified Site 12/08/2009 ROSENDO BARROW MD 465.9 Acute Upper Respiratory Infections Of Unspecified Site 12/08/2009 MIMS DO, ELVIA K 465.9 Acute Upper Respiratory Infections Of Unspecified Site 12/08/2009 ROSENDO BARROW MD 465.9 Acute Upper Respiratory Infections Of Unspecified Site 12/08/2009 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, DAY S 465.9 Acute Upper Respiratory Infections Of Unspecified Site 12/08/2009 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, DAY S 465.9 Acute Upper Respiratory Infections Of Unspecified Site 12/08/2009 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, DAY S 465.9 Acute Upper Respiratory Infections Of Unspecified Site 12/08/2009 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, DAY S 465.9 Acute Upper Respiratory Infections Of Unspecified Site 12/08/2009 MIMS DO, ELVIA K 465.9 Acute Upper Respiratory Infections Of Unspecified Site 12/08/2009 MIMS DO, ELVIA K 465.9 Acute Upper Respiratory Infections Of Unspecified Site 12/08/2009 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, DAY S 465.9 Acute Upper Respiratory Infections Of Unspecified Site 12/08/2009 DONTAE ALVA MD 465.9 Acute Upper Respiratory Infections Of Unspecified Site 12/08/2009 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, DAY S 465.9 Acute Upper Respiratory Infections Of Unspecified Site 12/08/2009 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, DAY S 465.9 Acute Upper Respiratory Infections Of Unspecified Site 12/08/2009 ELDA GALINDO, HIRAM 46 5.9 Acute Upper Respiratory Infections Of Unspecified Site 12/17/2009 MIMS DO, ELVIA K 461.0 Acute Maxillary Sinusitis 12/17/2009 461.0 Acut e Maxillary Sinusitis 12/17/2009 MIMS DO, ELVIA K 461.0 Acute Maxillary Sinusitis 12/17/2009 461.0 Acut e Maxillary Sinusitis 12/17/2009 MIMS DO, ELVIA K 461.0 Acute Maxillary Sinusitis 12/17/2009 MIMS DO, ELVIA K 461.0 Acute Maxillary Sinusitis 12/17/2009 461.0 Acut e Maxillary Sinusitis 12/17/2009 461.0 Acut e Maxillary Sinusitis 12/17/2009 461.0 Acut e Maxillary Sinusitis 12/17/2009 ROSENDO BARROW MD 461.0 Acute Maxillary Sinusitis 12/17/2009 ROSENDO BARROW MD 461.0 Acute Maxillary Sinusitis 12/17/2009 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, 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 S 461.0 Acute Maxillary Sinusitis 12/17/2009 MIMS DO, ELVIA K 461.0 Acute Maxillary Sinusitis 12/17/2009 ROSENDO BARROW MD 461.0 Acute Maxillary Sinusitis 12/17/2009 MIMS , ELVIA K 461.0 Acute Maxillary Sinusitis 12/17/2009 ROSENDO BARROW MD 461.0 Acute Maxillary Sinusitis 12/17/2009 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, DAY S 461.0 Acute Maxillary Sinusitis 12/17/2009 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, DAY S 461.0 Acute Maxillary Sinusitis 12/17/2009 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, DAY S 461.0 Acute Maxillary Sinusitis 12/17/2009 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, DAY S 461.0 Acute Maxillary Sinusitis 12/17/2009 MIMS DO, ELVIA K 461.0 Acute Maxillary Sinusitis 12/17/2009 MIMS DO, ELVIA K 461.0 Acute Maxillary Sinusitis 12/17/2009 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, DAY S 461.0 Acute Maxillary Sinusitis 12/17/2009 DONTAE ALVA MD 461.0 Acute Maxillary Sinusitis 12/17/2009 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, DAY S 461.0 Acute Maxillary Sinusitis 12/17/2009 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, DAY S 461.0 Acute Maxillary Sinusitis 12/17/2009 ELDA PATTONS, HIRAM 46 1.0 Acute Maxillary Sinusitis 03/13/2010 MIMS DO, ELVIA K 368.11 Worsening Vision Started Suddenly 03/13/2010 MIMS DO, ELVIA K 372.30 Conjunctivitis 03/13/2010 368.11 Wor sening Vision Started Suddenly 03/13/2010 372.30 Con junctivitis 03/13/2010 MIMS DO, ELVIA K 368.11 Worsening Vision Started Suddenly 03/13/2010 MIMS DO, ELVIA K 372.30 Conjunctivitis 03/13/2010 368.11 Wor sening Vision Started Suddenly 03/13/2010 372.30 Con junctivitis 03/13/2010 MIMS DO, ELVIA K 368.11 Worsening Vision Started Suddenly 03/13/2010 MIMS DO, ELVIA K 372.30 Conjunctivitis 03/13/2010 MIMS DO, ELVIA K 368.11 Worsening Vision Started Suddenly 03/13/2010 MIMS DO, ELVIA K 372.30 Conjunctivitis 03/13/2010 368.11 Wor sening Vision Started Suddenly 03/13/2010 372.30 Con junctivitis 03/13/2010 368.11 Wor sening Vision Started Suddenly 03/13/2010 372.30 Con junctivitis 03/13/2010 368.11 Wor sening Vision Started Suddenly 03/13/2010 372.30 Con junctivitis 03/13/2010 ROSENDO BARROW MD 368.1 1 Worsening Vision Started Suddenly 03/13/2010 ROSENDO BARROW MD 372.3 0 Conjunctivitis 03/13/2010 ROSENDO BARROW MD 368.1 1 Worsening Vision Started Suddenly 03/13/2010 ROSENDO BARROW MD 372.3 0 Conjunctivitis 03/13/2010 DAY HUGHES APRN S 368.11 Worsening Vision Started Suddenly 03/13/2010 DAY HUGHES APRN S 372.30 Conjunctivitis 03/13/2010 MIMS DO, ELVIA K 368.11 Worsening Vision Started Suddenly 03/13/2010 MIMS DO, ELVIA K 372.30 Conjunctivitis 03/13/2010 ROSENDO BARROW MD 368.1 1 Worsening Vision Started Suddenly 03/13/2010 ROSENDO BARROW MD 372.3 0 Conjunctivitis 03/13/2010 MIMS DO, ELVIA K 368.11 Worsening Vision Started Suddenly 03/13/2010 MIMS DO, ELVIA K 372.30 Conjunctivitis 03/13/2010 ROSENDO BARROW MD 368.1 1 Worsening Vision Started Suddenly 03/13/2010 ROSENDO BARROW MD 372.3 0 Conjunctivitis 03/13/2010 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, DAY S 368.11 Worsening Vision Started Suddenly 03/13/2010 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, DAY S 372.30 Conjunctivitis 03/13/2010 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, DAY S 368.11 Worsening Vision Started Suddenly 03/13/2010 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, DAY S 372.30 Conjunctivitis 03/13/2010 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, DAY S 368.11 Worsening Vision Started Suddenly 03/13/2010 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, DAY S 372.30 Conjunctivitis 03/13/2010 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, DAY S 368.11 Worsening Vision Started Suddenly 03/13/2010 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, DAY S 372.30 Conjunctivitis 03/13/2010 MIMS DO, ELVIA K 368.11 Worsening Vision Started Suddenly 03/13/2010 MIMS DO, ELVIA K 372.30 Conjunctivitis 03/13/2010 MIMS DO, ELVIA K 368.11 Worsening Vision Started Suddenly 03/13/2010 MIMS DO, ELVIA K 372.30 Conjunctivitis 03/13/2010 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, DAY S 368.11 Worsening Vision Started Suddenly 03/13/2010 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, ADY S 372.30 Conjunctivitis 03/13/2010 DONTAE ALVA MD 368.11 Worsening Vision Started Suddenly 03/13/2010 DONTAE ALVA MD 372.30 Conjunctivitis 03/13/2010 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, DAY S 368.11 Worsening Vision Started Suddenly 03/13/2010 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, DAY S 372.30 Conjunctivitis 03/13/2010 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, DAY S 368.11 Worsening Vision Started Suddenly 03/13/2010 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, DAY S 372.30 Conjunctivitis 03/13/2010 HIRAM SCHROEDER DDS 368.11 Worsening Vision Started Suddenly 03/13/2010 ELDA PATTONSHIRAM 372.30 Conjunctivitis 03/18/2010 MIMS DO, ELVIA K 300.00 Anxiety State Unspecified 03/18/2010 MIMS DO, ELVIA K 379.91 Pain In Or Around Eye 03/18/2010 MIMS DO, ELVIA K 435.9 Unspecified Transient Cerebral Ischemia 03/18/2010 300.00 Anx iety State Unspecified 03/18/2010 379.91 Crista n In Or Around Eye 03/18/2010 435.9 Unsp ecified Transient Cerebral Ischemia 03/18/2010 MIMS DO, ELVIA K 300.00 Anxiety State Unspecified 03/18/2010 MIMS DO, ELVIA K 379.91 Pain In Or Around Eye 03/18/2010 MIMS DO, ELVIA K 435.9 Unspecified Transient Cerebral Ischemia 03/18/2010 300.00 Anx iety State Unspecified 03/18/2010 379.91 Crista n In Or Around Eye 03/18/2010 435.9 Unsp ecified Transient Cerebral Ischemia 03/18/2010 MIMS DO, ELVIA [...] 435.9 Unspecified Transient Cerebral Ischemia 03/18/2010 300.00 Anx iety State Unspecified 03/18/2010 379.91 Crista n In Or Around Eye 03/18/2010 435.9 Unsp ecified Transient Cerebral Ischemia 03/18/2010 300.00 Anx iety State Unspecified 03/18/2010 379.91 Crista n In Or Around Eye 03/18/2010 435.9 Unsp ecified Transient Cerebral Ischemia 03/18/2010 300.00 Anx iety State Unspecified 03/18/2010 379.91 Crista n In Or Around Eye 03/18/2010 435.9 Unsp ecified Transient Cerebral Ischemia 03/18/2010 ROSENDO BARROW MD 300.0 0 Anxiety State Unspecified 03/18/2010 ROSENDO BARROW MD 379.9 1 Pain In Or Around Eye 03/18/2010 ROSENDO BARROW MD 435.9 Unspecified Transient Cerebral Ischemia 03/18/2010 ROSENDO BARROW MD 300.0 0 Anxiety State Unspecified 03/18/2010 ROSENDO BARROW MD 379.9 1 Pain In Or Around Eye 03/18/2010 ROSENDO BARROW MD 435.9 Unspecified Transient Cerebral Ischemia 03/18/2010 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, DAY S 300.00 Anxiety State Unspecified 03/18/2010 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, DAY S 379.91 Pain In Or Around Eye 03/18/2010 ELLEN KEMPN, DAY S 435.9 Unspecified Transient Cerebral Ischemia 03/18/2010 MIMS DO, ELVIA K 300.00 Anxiety State Unspecified 03/18/2010 MIMS DO, ELVIA K 379.91 Pain In Or Around Eye 03/18/2010 MIMS DO, ELVIA K 435.9 Unspecified Transient Cerebral Ischemia 03/18/2010 ROSENDO BARROW MD 300.0 0 Anxiety State Unspecified 03/18/2010 ROSENDO BARROW MD 379.9 1 Pain In Or Around Eye 03/18/2010 ROSENDO BARROW MD 435.9 Unspecified Transient Cerebral Ischemia 03/18/2010 MIMS DO, ELVIA K 300.00 Anxiety State Unspecified 03/18/2010 MIMS DO, ELVIA K 379.91 Pain In Or Around Eye 03/18/2010 MIMS DO, ELVIA K 435.9 Unspecified Transient Cerebral Ischemia 03/18/2010 ROSENDO BARROW MD 300.0 0 Anxiety State Unspecified 03/18/2010 ROSENDO BARORW MD 379.9 1 Pain In Or Around Eye 03/18/2010 ROSENDO BARROW MD 435.9 Unspecified Transient Cerebral Ischemia 03/18/2010 ELLEN KEMPN, DAY S 300.00 Anxiety State Unspecified 03/18/2010 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, DAY S 379.91 Pain In Or Around Eye 03/18/2010 ELLEN KEMPN, DAY S 435.9 Unspecified Transient Cerebral Ischemia 03/18/2010 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, DAY S 300.00 Anxiety State Unspecified 03/18/2010 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, DAY S 379.91 Pain In Or Around Eye 03/18/2010 ELLEN KEMPN, DAY S 435.9 Unspecified Transient Cerebral Ischemia 03/18/2010 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, DAY S 300.00 Anxiety State Unspecified 03/18/2010 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, DAY S 379.91 Pain In Or Around Eye 03/18/2010 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, DAY S 435.9 Unspecified Transient Cerebral Ischemia 03/18/2010 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, DAY S 300.00 Anxiety State Unspecified 03/18/2010 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, DAY S 379.91 Pain In Or Around Eye 03/18/2010 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, DAY S 435.9 Unspecified Transient Cerebral Ischemia [...] 435.9 Unspecified Transient Cerebral Ischemia 03/18/2010 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, DAY S 300.00 Anxiety State Unspecified 03/18/2010 ELLEN KEMPN, DAY S 379.91 Pain In Or Around Eye 03/18/2010 ELLEN KEMPN, DAY S 435.9 Unspecified Transient Cerebral Ischemia 03/18/2010 DONTAE ALVA MD 300.00 Anxiety State Unspecified 03/18/2010 ARTIE ORTIZ, DONTAE 379.91 Pain In Or Around Eye 03/18/2010 ARTIE ORTIZ, DONTAE 435.9 Unspecified Transient Cerebral Ischemia 03/18/2010 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, ADY S 300.00 Anxiety State Unspecified 03/18/2010 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, DAY S 379.91 Pain In Or Around Eye 03/18/2010 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, DAY S 435.9 Unspecified Transient Cerebral Ischemia 03/18/2010 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, DAY S 300.00 Anxiety State Unspecified 03/18/2010 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, DAY S 379.91 Pain In Or Around Eye 03/18/2010 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, DAY S 435.9 Unspecified Transient Cerebral Ischemia 03/18/2010 ELDA DDS, HIRAM 300.00 Anxiety State Unspecified 03/18/2010 LEDA DDS, HIRAM 379.91 Pain In Or Around Eye 03/18/2010 ELDA DDS, HIRAM 43 5.9 Unspecified Transient Cerebral Ischemia 04/01/2010 LEVIA MIMS DO 443.9 PERIPHERAL VASCULAR DISEASE UNSPECIFIED 04/01/2010 443.9 JESI PHERAL VASCULAR DISEASE UNSPECIFIED 04/01/2010 ELVIA MIMS DO 443.9 PERIPHERAL VASCULAR DISEASE UNSPECIFIED 04/01/2010 443.9 JESI PHERAL VASCULAR DISEASE UNSPECIFIED 04/01/2010 ELVIA MIMS DO 443.9 PERIPHERAL VASCULAR DISEASE UNSPECIFIED 04/01/2010 ELVIA MIMS DO 443.9 PERIPHERAL VASCULAR DISEASE UNSPECIFIED 04/01/2010 443.9 JESI PHERAL VASCULAR DISEASE UNSPECIFIED 04/01/2010 443.9 JESI PHERAL VASCULAR DISEASE UNSPECIFIED 04/01/2010 443.9 JESI PHERAL VASCULAR DISEASE UNSPECIFIED 04/01/2010 ROSENDO BARROW MD 443.9 PERIPHERAL VASCULAR DISEASE UNSPECIFIED 04/01/2010 ROSENDO BARROW MD 443.9 PERIPHERAL VASCULAR DISEASE UNSPECIFIED 04/01/2010 DAY HUGHES APRN S 443.9 PERIPHERAL VASCULAR DISEASE UNSPECIFIED 04/01/2010 ELVIA MIMS DO 443.9 PERIPHERAL VASCULAR DISEASE UNSPECIFIED 04/01/2010 ROSENDO BARROW MD 443.9 PERIPHERAL VASCULAR DISEASE UNSPECIFIED 04/01/2010 ELVIA MMIS DO 443.9 PERIPHERAL VASCULAR DISEASE UNSPECIFIED 04/01/2010 ROSENDO BARROW MD 443.9 PERIPHERAL VASCULAR DISEASE UNSPECIFIED 04/01/2010 DAY HUGHES APRN S 443.9 PERIPHERAL VASCULAR DISEASE UNSPECIFIED 04/01/2010 ALYSSA HUGHES APRNA S 443.9 PERIPHERAL VASCULAR DISEASE UNSPECIFIED 04/01/2010 DAY HUGHES APRN S 443.9 PERIPHERAL VASCULAR DISEASE UNSPECIFIED 04/01/2010 DAY HUGHES APRN S 443.9 PERIPHERAL VASCULAR DISEASE UNSPECIFIED 04/01/2010 ELVIA MIMS DO K 443.9 PERIPHERAL VASCULAR DISEASE UNSPECIFIED 04/01/2010 MIMS DO, ELVIA K 443.9 PERIPHERAL VASCULAR DISEASE UNSPECIFIED 04/01/2010 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, DAY S 443.9 PERIPHERAL VASCULAR DISEASE UNSPECIFIED 04/01/2010 DONTAE ALVA MD 443.9 PERIPHERAL VASCULAR DISEASE UNSPECIFIED 04/01/2010 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, DAY S 443.9 PERIPHERAL VASCULAR DISEASE UNSPECIFIED 04/01/2010 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, DAY S 443.9 PERIPHERAL VASCULAR DISEASE UNSPECIFIED 04/01/2010 ELDA GALINDO, HIRAM 44 3.9 PERIPHERAL VASCULAR DISEASE UNSPECIFIED 04/07/2010 MIMS DO, ELVIA K 786.50 Chest Pain 04/07/[address] Pain 04/07/2010 MIMS DO, ELVIA K 786.50 Chest Pain 04/07/[address] Pain 04/07/2010 MIMS DO, ELVIA K 786.50 Chest Pain 04/07/2010 MIMS DO, ELVIA K 786.50 Chest Pain 04/07/[address] Pain 04/07/[address] Pain 04/07/[address] Pain 04/07/2010 ROSENDO BARROW MD 786.5 0 Chest Pain 04/07/2010 ROSENDO BARROW MD 786.5 0 Chest Pain 04/07/2010 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, DAY S 786.50 Chest Pain 04/07/2010 MIMS DO, ELVIA K 786.50 Chest Pain 04/07/2010 ROSENDO BARROW MD 786.5 0 Chest Pain 04/07/2010 MIMS DO, ELVIA K 786.50 Chest Pain 04/07/2010 ROSENDO BARROW MD 786.5 0 Chest Pain 04/07/2010 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, DAY S 786.50 Chest Pain 04/07/2010 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, DAY S 786.50 Chest Pain 04/07/2010 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, DAY S 786.50 Chest Pain 04/07/2010 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, DAY S 786.50 Chest Pain 04/07/2010 MIMS DO, ELVIA K 786.50 Chest Pain 04/07/2010 MIMS DO, ELVIA K 786.50 Chest Pain 04/07/2010 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, DAY S 786.50 Chest Pain 04/07/2010 DONTAE ALVA MD 786.50 Chest Pain 04/07/2010 DAY HUGHES APRN S 786.50 Chest Pain 04/07/2010 DAY HUGHES APRN S 786.50 Chest Pain 04/07/2010 HIRAM SCHROEDER DDS 786.50 Chest Pain 05/05/2010 MIMS DO, ELVIA K 272.0 PURE HYPERCHOLESTEROLEMIA 05/05/2010 MIMS DO, ELVIA K 438.9 UNSPECIFIED LATE EFFECTS OF CEREBROVASCULAR DISEASE 05/05/2010 272.0 PURE HYPERCHOLESTEROLEMIA 05/05/2010 438.9 UNSP ECIFIED LATE EFFECTS OF CEREBROVASCULAR DISEASE 05/05/2010 MIMS DO, ELVIA K 272.0 PURE HYPERCHOLESTEROLEMIA 05/05/2010 MIMS DO, ELVIA K 438.9 UNSPECIFIED LATE EFFECTS OF CEREBROVASCULAR DISEASE 05/05/2010 272.0 PURE HYPERCHOLESTEROLEMIA 05/05/2010 438.9 UNSP ECIFIED LATE EFFECTS OF CEREBROVASCULAR DISEASE 05/05/2010 MIMS DO, ELVIA K 272.0 PURE HYPERCHOLESTEROLEMIA 05/05/2010 MIMS DO, ELVIA K 438.9 UNSPECIFIED LATE EFFECTS OF CEREBROVASCULAR DISEASE 05/05/2010 MIMS DO, ELVIA K 272.0 PURE HYPERCHOLESTEROLEMIA 05/05/2010 MIMS DO, ELVIA K 438.9 UNSPECIFIED LATE EFFECTS OF CEREBROVASCULAR DISEASE 05/05/2010 272.0 PURE HYPERCHOLESTEROLEMIA 05/05/2010 438.9 UNSP ECIFIED LATE EFFECTS OF CEREBROVASCULAR DISEASE 05/05/2010 272.0 PURE HYPERCHOLESTEROLEMIA 05/05/2010 438.9 UNSP ECIFIED LATE EFFECTS OF CEREBROVASCULAR DISEASE 05/05/2010 272.0 PURE HYPERCHOLESTEROLEMIA 05/05/2010 438.9 UNSP ECIFIED LATE EFFECTS OF CEREBROVASCULAR DISEASE 05/05/2010 ROSENDO BARROW MD 272.0 PURE HYPERCHOLESTEROLEMIA 05/05/2010 ROSENDO BARROW MD 438.9 UNSPECIFIED LATE EFFECTS OF CEREBROVASCULAR DISEASE 05/05/2010 ROSENDO BARROW MD 272.0 PURE HYPERCHOLESTEROLEMIA 05/05/2010 ROSENDO BARROW MD 438.9 UNSPECIFIED LATE EFFECTS OF CEREBROVASCULAR DISEASE 05/05/2010 DAY HUGHES APRN S 272.0 PURE HYPERCHOLESTEROLEMIA 05/05/2010 DAY HUGHES [...] LATE EFFECTS OF CEREBROVASCULAR DISEASE 05/05/2010 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, DAY S 272.0 PURE HYPERCHOLESTEROLEMIA 05/05/2010 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, DAY S 438.9 UNSPECIFIED LATE EFFECTS OF CEREBROVASCULAR DISEASE 05/05/2010 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, DAY S 272.0 PURE HYPERCHOLESTEROLEMIA 05/05/2010 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, DAY S 438.9 UNSPECIFIED LATE EFFECTS OF CEREBROVASCULAR DISEASE 05/05/2010 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, DAY S 272.0 PURE HYPERCHOLESTEROLEMIA 05/05/2010 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, DAY S 438.9 UNSPECIFIED LATE EFFECTS OF CEREBROVASCULAR DISEASE 05/05/2010 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, DAY S 272.0 PURE HYPERCHOLESTEROLEMIA 05/05/2010 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, DAY S 438.9 UNSPECIFIED LATE EFFECTS OF CEREBROVASCULAR DISEASE 05/05/2010 MIMS DO, ELVIA K 272.0 PURE HYPERCHOLESTEROLEMIA 05/05/2010 MIMS DO, ELVIA K 438.9 UNSPECIFIED LATE EFFECTS OF CEREBROVASCULAR DISEASE 05/05/2010 MIMS DO, ELVIA K 272.0 PURE HYPERCHOLESTEROLEMIA 05/05/2010 MIMS DO, ELVIA K 438.9 UNSPECIFIED LATE EFFECTS OF CEREBROVASCULAR DISEASE 05/05/2010 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, DAY S 272.0 PURE HYPERCHOLESTEROLEMIA 05/05/2010 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, DAY S 438.9 UNSPECIFIED LATE EFFECTS OF CEREBROVASCULAR DISEASE 05/05/2010 DONTAE ALVA MD 272.0 PURE HYPERCHOLESTEROLEMIA 05/05/2010 DONTAE ALVA MD 438.9 UNSPECIFIED LATE EFFECTS OF CEREBROVASCULAR DISEASE 05/05/2010 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, DAY S 272.0 PURE HYPERCHOLESTEROLEMIA 05/05/2010 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, DAY S 438.9 UNSPECIFIED LATE EFFECTS OF CEREBROVASCULAR DISEASE 05/05/2010 ELLEN ADAMS, DAY S 272.0 PURE HYPERCHOLESTEROLEMIA 05/05/2010 ELLEN ADAMS, DAY S 438.9 UNSPECIFIED LATE EFFECTS OF CEREBROVASCULAR DISEASE 05/05/2010 SCHROEDER DDS, HIRAM 27 2.0 PURE HYPERCHOLESTEROLEMIA 05/05/2010 SCHROEDER DDS, HIRAM 43 8.9 UNSPECIFIED LATE EFFECTS OF CEREBROVASCULAR DISEASE 05/25/2010 MIMS DO ELVIA K 702.0 Actinic Keratosis 05/25/2010 702.0 Acti orly Keratosis 05/25/2010 FELICITA DO ELVIA K 702.0 Actinic Keratosis 05/25/2010 702.0 Acti orly Keratosis 05/25/2010 FELICITA FUNES ELVIA K 702.0 Actinic Keratosis 05/25/2010 FELICITA FUNES ELVIA K 702.0 Actinic Keratosis 05/25/2010 702.0 Acti orly Keratosis 05/25/2010 702.0 Acti orly Keratosis 05/25/2010 702.0 Acti orly Keratosis 05/25/2010 ROSENDO BARROW MD 702.0 Actinic Keratosis 05/25/2010 ROSENDO BARROW MD 702.0 Actinic Keratosis 05/25/2010 MAGNUS HUGHES APRNNDA S 702.0 Actinic Keratosis 05/25/2010 FELICITA FUNES ELVIA K 702.0 Actinic Keratosis 05/25/2010 ROSENDO BARROW MD 702.0 Actinic Keratosis 05/25/2010 FELICITA FUNES ELVIA K 702.0 Actinic Keratosis 05/25/2010 ROSENDO BARROW MD 702.0 Actinic Keratosis 05/25/2010 ELLEN ADAMS, DAY S 702.0 Actinic Keratosis 05/25/2010 ELLEN ADAMS, DAY S 702.0 Actinic Keratosis 05/25/2010 ELLEN ADAMS, ADY S 702.0 Actinic Keratosis 05/25/2010 ELLEN ADAMS, DAY S 702.0 Actinic Keratosis 05/25/2010 FELICITA FUNES ELVIA K 702.0 Actinic Keratosis 05/25/2010 FELICITA FUNES ELVIA K 702.0 Actinic Keratosis 05/25/2010 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, DAY S 702.0 Actinic Keratosis 05/25/2010 ARTIE ORTIZ, DONTAE 702.0 Actinic Keratosis 05/25/2010 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, DAY S 702.0 Actinic Keratosis 05/25/2010 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, DAY S 702.0 Actinic Keratosis 05/25/2010 ELDA GALINDO, HIRAM 70 2.0 Actinic Keratosis 06/02/2010 MIMS DO, ELVIA K 272.4 HYPERLIPIDEMIA 06/02/2010 272.4 HYPE RLIPIDEMIA 06/02/2010 MIMS DO, ELVIA K 272.4 HYPERLIPIDEMIA 06/02/2010 272.4 HYPE RLIPIDEMIA 06/02/2010 MIMS DO, ELVIA K 272.4 HYPERLIPIDEMIA 06/02/2010 MIMS DO, ELVIA K 272.4 HYPERLIPIDEMIA 06/02/2010 272.4 HYPE RLIPIDEMIA 06/02/2010 272.4 HYPE RLIPIDEMIA 06/02/2010 272.4 HYPE RLIPIDEMIA 06/02/2010 ROSENDO BARROW MD 272.4 HYPERLIPIDEMIA 06/02/2010 ROSENDO BARROW MD 272.4 HYPERLIPIDEMIA 06/02/2010 ELLEN KEMPN, DAY S 272.4 HYPERLIPIDEMIA 06/02/2010 MIMS DO, ELVIA K 272.4 HYPERLIPIDEMIA 06/02/2010 ROSENDO BARROW MD 272.4 HYPERLIPIDEMIA 06/02/2010 MIMS DO, ELVIA K 272.4 HYPERLIPIDEMIA 06/02/2010 ROSENDO BARROW MD 272.4 HYPERLIPIDEMIA 06/02/2010 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, DAY S 272.4 HYPERLIPIDEMIA 06/02/2010 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, DAY S 272.4 HYPERLIPIDEMIA 06/02/2010 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, DAY S 272.4 HYPERLIPIDEMIA 06/02/2010 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, DAY S 272.4 HYPERLIPIDEMIA 06/02/2010 MIMS DO, ELVIA K 272.4 HYPERLIPIDEMIA 06/02/2010 MIMS DO, ELVIA K 272.4 HYPERLIPIDEMIA 06/02/2010 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, DAY S 272.4 HYPERLIPIDEMIA 06/02/2010 DONTAE ALVA MD 272.4 HYPERLIPIDEMIA 06/02/2010 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, DAY S 272.4 HYPERLIPIDEMIA 06/02/2010 DAY HUHGES APRN S 272.4 HYPERLIPIDEMIA 06/02/2010 ELDA GALINDO, HIRAM 27 2.4 HYPERLIPIDEMIA 08/09/2010 MIMS DO ELVIA K V05.4 Varicella, Chickenpox 08/09/2010 V05.4 Vari dale, Chickenpox 08/09/2010 MIMS DO, ELVIA K V05.4 Varicella, Chickenpox 08/09/2010 V05.4 Vari dale, Chickenpox 08/09/2010 MIMS DO, ELVIA K V05.4 Varicella, Chickenpox 08/09/2010 MIMS DO, ELVIA K V05.4 Varicella, Chickenpox 08/09/2010 V05.4 Vari dale, Chickenpox 08/09/2010 V05.4 Vari dale, Chickenpox 08/09/2010 V05.4 Vari dale, Chickenpox 08/09/2010 ROSENDO BARROW MD V05.4 Varicella, Chickenpox 08/09/2010 ROSENDO BARROW MD V05.4 Varicella, Chickenpox 08/09/2010 DAY HUGHES APRN S V05.4 Varicella, Chickenpox 08/09/2010 MIMS DOELVIA K V05.4 Varicella, Chickenpox 08/09/2010 ROSENDO BARROW MD V05.4 Varicella, Chickenpox 08/09/2010 MIMS DO, ELVIA K V05.4 Varicella, Chickenpox 08/09/2010 ROSENDO BARROW MD V05.4 Varicella, Chickenpox 08/09/2010 ALYSSA HUGHES APRNA S V05.4 Varicella, Chickenpox 08/09/2010 ALYSSA HUGHES APRNA S V05.4 Varicella, Chickenpox 08/09/2010 ALYSSA HUGHES APRNA S V05.4 Varicella, Chickenpox 08/09/2010 ALYSSA HUGHES APRNA S V05.4 Varicella, Chickenpox 08/09/2010 MIMS DOLUCIOA K V05.4 Varicella, Chickenpox 08/09/2010 MIMS DO, ELVIA K V05.4 Varicella, Chickenpox 08/09/2010 ALYSSA HUGHES APRNA S V05.4 Varicella, Chickenpox 08/09/2010 ARTIE ORTIZ, DONTAE V05.4 Varicella, Chickenpox 08/09/2010 DAY HUGHES APRN V05.4 Varicella, Chickenpox 08/09/2010 DAY HUGHES APRN V05.4 Varicella, Chickenpox 08/09/2010 ELDA PATTONS, HIRAM V0 5.4 Varicella, Chickenpox 02/02/2011 MIMS DO ELVIA K 701.9 Unspecified Hypertrophic And Atrophic Conditions Of Skin 02/02/2011 MIMS DO, ELVIA K V04.81 Flu Dx (medicare Only) 02/02/2011 701.9 Unsp ecified Hypertrophic And Atrophic Conditions Of Skin 02/02/2011 V04.81 Flu Dx (medicare Only) 02/02/2011 MIMS DO ELVIA K 701.9 Unspecified Hypertrophic And Atrophic Conditions Of Skin 02/02/2011 MIMS DO, ELVIA K V04.81 Flu Dx (medicare Only) 02/02/2011 701.9 Unsp ecified Hypertrophic And Atrophic Conditions Of Skin 02/02/2011 V04.81 Flu Dx (medicare Only) 02/02/2011 MIMS DO ELVIA K 701.9 Unspecified Hypertrophic And Atrophic Conditions Of Skin 02/02/2011 MIMS DO, ELVIA K V04.81 Flu Dx (medicare Only) 02/02/2011 MIMS DO ELVIA K 701.9 Unspecified Hypertrophic And Atrophic Conditions Of Skin 02/02/2011 MIMS DO, ELVIA K V04.81 Flu Dx (medicare Only) 02/02/2011 701.9 Unsp ecified Hypertrophic And Atrophic Conditions Of Skin 02/02/2011 V04.81 Flu Dx (medicare Only) 02/02/2011 701.9 Unsp ecified Hypertrophic And Atrophic Conditions Of Skin 02/02/2011 V04.81 Flu Dx (medicare Only) 02/02/2011 701.9 Unsp ecified Hypertrophic And Atrophic Conditions Of Skin 02/02/2011 V04.81 Flu Dx (medicare Only) 02/02/2011 ROSENDO BARROW MD 701.9 Unspecified Hypertrophic And Atrophic Conditions Of Skin 02/02/2011 ROSENDO BARROW MD V04.8 1 Flu Dx (medicare Only) 02/02/2011 ROSENDO BARROW MD 701.9 Unspecified Hypertrophic And Atrophic Conditions Of Skin 02/02/2011 ROSENDO BARROW MD V04.8 1 Flu Dx (medicare Only) 02/02/2011 ELLENEDUARDO ADAMS DAY S 701.9 Unspecified Hypertrophic And Atrophic Conditions Of Sk in 02/02/2011 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, 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 S V04.81 Flu Dx (medicare Only) 02/02/2011 ELVIA MIMS DO K 701.9 Unspecified Hypertrophic And Atrophic Conditions Of Skin 02/02/2011 FELICITA FUNES ELVIA K V04.81 Flu Dx (medicare Only) 02/02/2011 ROSENDO BARROW MD 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.9 Unspecified Hypertrophic And Atrophic Conditions Of Skin 02/02/2011 ROSENDO BARROW MD V04.8 1 Flu Dx (medicare Only) 02/02/2011 ELVIA MIMS DO 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.9 Unspecified Hypertrophic And Atrophic Conditions Of Skin 02/02/2011 FELICITA FUNES ELVIA K V04.81 Flu Dx (medicare Only) 02/02/2011 ROSENDO BARROW MD 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.9 Unspecified Hypertrophic And Atrophic Conditions Of Skin 02/02/2011 ROSENDO BARROW MD V04.8 1 Flu Dx (medicare Only) 02/02/2011 ELLEN ADAMS, DAY S 701.9 Unspecified Hypertrophic And Atrophic Conditions Of Sk in 02/02/2011 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, 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 S V04.81 Flu Dx (medicare Only) 02/02/2011 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, DAY S 701.9 Unspecified Hypertrophic And Atrophic Conditions Of Sk in 02/02/2011 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, DAY S V04.81 Flu Dx (medicare Only) 02/02/2011 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, DAY S 701.9 Unspecified Hypertrophic And Atrophic Conditions Of Sk in 02/02/2011 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, DAY S V04.81 Flu Dx (medicare Only) 02/02/2011 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, DAY S 701.9 Unspecified Hypertrophic And Atrophic Conditions Of Sk in 02/02/2011 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, DAY S V04.81 Flu Dx (medicare Only) 02/02/2011 LUCIO MIMS DOA K 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.9 Unspecified Hypertrophic And Atrophic Conditions Of Skin 02/02/2011 ELVIA MIMS DO K V04.81 Flu Dx (medicare Only) 02/02/2011 ELVIA MIMS DO K 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 Unspecified Hypertrophic And Atrophic Conditions Of Skin 02/02/2011 LUCIO MIMS DOA K V04.81 Flu Dx (medicare Only) 02/02/2011 DAY HUGHES APRN S 701.9 Unspecified Hypertrophic And Atrophic Conditions Of Sk in 02/02/2011 ELLEN ADAMS DAY S V04.81 Flu Dx (medicare Only) 02/02/2011 DONTAE ALVA MD 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.9 Unspecified Hypertrophic And Atrophic Conditions Of Skin 02/02/2011 DONTAE ALVA MD V04.81 Flu Dx (medicare Only) 02/02/2011 DAY HUGHES APRN S 701.9 Unspecified Hypertrophic And Atrophic Conditions Of Sk in 02/02/2011 ALYSSA HUGHES APRNA S V04.81 Flu Dx (medicare Only) 02/02/2011 DAY HUGHES APRN S 701.9 Unspecified Hypertrophic And Atrophic Conditions Of Sk in 02/02/2011 ELLEN ADAMS DAY S V04.81 Flu Dx (medicare Only) 02/02/2011 HIRAM SCHROEDER DDS 70 1.9 Unspecified Hypertrophic And Atrophic Conditions Of Skin 02/02/2011 HIRAM SCHROEDER DDS V04.81 Flu Dx (medicare Only) 02/21/2011 ELVIA MIMS DO V72.31 Asphalt Blender Exam, Routine 02/21/2011 V72.31 Asphalt Blender Exam, Routine 02/21/2011 ELVIA MIMS DO K V72.31 Asphalt Blender Exam, Routine 02/21/2011 V72.31 Asphalt Blender Exam, Routine 02/21/2011 ELVIA MIMS DO K V72.31 Asphalt Blender Exam, Routine 02/21/2011 LUCIO MIMS DOA K V72.31 Asphalt Blender Exam, Routine 02/21/2011 V72.31 Asphalt Blender Exam, Routine 02/21/2011 V72.31 Asphalt Blender Exam, Routine 02/21/2011 V72.31 Asphalt Blender Exam, Routine 02/21/2011 PUSHPA ORTIZ, ROSENDO V72.3 1 Asphalt Blender Exam, Routine 02/21/2011 ROSENDO BARROW MD V72.3 1 Asphalt Blender Exam, Routine 02/21/2011 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, DAY S V72.31 Asphalt Blender Exam, Routine 02/21/2011 MIMS DO ELVIA K V72.31 Asphalt Blender Exam, Routine 02/21/2011 ROSENDO BARROW MD V72.3 1 Asphalt Blender Exam, Routine 02/21/2011 MIMS DO ELVIA K V72.31 Asphalt Blender Exam, Routine 02/21/2011 ROSENDO BARROW MD V72.3 1 Asphalt Blender Exam, Routine 02/21/2011 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, DAY S V72.31 Asphalt Blender Exam, Routine 02/21/2011 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, DAY S V72.31 Asphalt Blender Exam, Routine 02/21/2011 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, DAY S V72.31 Asphalt Blender Exam, Routine 02/21/2011 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, DAY S V72.31 Asphalt Blender Exam, Routine 02/21/2011 MIMS DO ELVIA K V72.31 Asphalt Blender Exam, Routine 02/21/2011 MIMS DO ELVIA K V72.31 Asphalt Blender Exam, Routine 02/21/2011 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, DAY S V72.31 Asphalt Blender Exam, Routine 02/21/2011 DONTAE ALVA MD V72.31 Asphalt Blender Exam, Routine 02/21/2011 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, DAY S V72.31 Asphalt Blender Exam, Routine 02/21/2011 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, DAY S V72.31 Asphalt Blender Exam, Routine 02/21/2011 HIRAM SCHROEDER DDS V72.31 Asphalt Blender Exam, Routine 02/23/2011 ELVIA MIMS DO 436 Acute But Ill-defined Cerebrovascular Disease 02/23/2011 436 Acute But Ill-defined Cerebrovascular Disease 02/23/2011 ELVIA MIMS DO 436 Acute But Ill-defined Cerebrovascular Disease 02/23/2011 436 Acute But Ill-defined Cerebrovascular Disease 02/23/2011 ELVIA MIMS DO 436 Acute But Ill-defined Cerebrovascular Disease 02/23/2011 ELVIA MIMS DO 436 Acute But Ill-defined Cerebrovascular Disease 02/23/2011 436 Acute But Ill-defined Cerebrovascular Disease 02/23/2011 436 Acute But Ill-defined Cerebrovascular Disease 02/23/2011 436 Acute But Ill-defined Cerebrovascular Disease 02/23/2011 ROSENDO BARROW MD 436 Acute But Ill-defined Cerebrovascular Disease 02/23/2011 ROSENDO BARROW MD 436 Acute But Ill-defined Cerebrovascular Disease 02/23/2011 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, DAY S 436 Acute But Ill-defined Cerebrovascular Disease 02/23/2011 FELICITA FUNES ELVIA K 436 Acute But Ill-defined Cerebrovascular Disease 02/23/2011 ROSENDO BARROW MD 436 Acute But Ill-defined Cerebrovascular Disease 02/23/2011 FELICITA FUNES ELVIA K 436 Acute But Ill-defined Cerebrovascular Disease 02/23/2011 ROSENDO BARROW MD 436 Acute But Ill-defined Cerebrovascular Disease 02/23/2011 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, DAY S 436 Acute But Ill-defined Cerebrovascular Disease 02/23/2011 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, DYA S 436 Acute But Ill-defined Cerebrovascular Disease 02/23/2011 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, DAY S 436 Acute But Ill-defined Cerebrovascular Disease 02/23/2011 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, DAY S 436 Acute But Ill-defined Cerebrovascular Disease 02/23/2011 FELICITA FUNES ELVIA K 436 Acute But Ill-defined Cerebrovascular Disease 02/23/2011 FELICITA FUNES ELVIA K 436 Acute But Ill-defined Cerebrovascular Disease 02/23/2011 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, DAY S 436 Acute But Ill-defined Cerebrovascular Disease 02/23/2011 ARTIE ORTIZ, DONTAE 436 Acute But Ill-defined Cerebrovascular Disease 02/23/2011 ELLEN KEMPN, DAY S 436 Acute But Ill-defined Cerebrovascular Disease 02/23/2011 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, DAY S 436 Acute But Ill-defined Cerebrovascular Disease 02/23/2011 ELDA GALINDO, HIRAM 43 6 Acute But Ill-defined Cerebrovascular Disease 03/07/2011 ELVIA MIMS DO K 466.0 Acute Bronchitis 03/07/2011 466.0 Acut e Bronchitis 03/07/2011 LUCIO MIMS DOA K 466.0 Acute Bronchitis 03/07/2011 466.0 Acut e Bronchitis 03/07/2011 LUCIO MIMS DOA K 466.0 Acute Bronchitis 03/07/2011 ELVIA MIMS DO K 466.0 Acute Bronchitis 03/07/2011 466.0 Acut e Bronchitis 03/07/2011 466.0 Acut e Bronchitis 03/07/2011 466.0 Acut e Bronchitis 03/07/2011 ROSENDO BARROW MD 466.0 Acute Bronchitis 03/07/2011 ROSENDO BARROW MD 466.0 Acute Bronchitis 03/07/2011 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, DAY S 466.0 Acute Bronchitis 03/07/2011 MIMS DO, ELVIA K 466.0 Acute Bronchitis 03/07/2011 PUSHPA ORTIZ, ROSENDO 466.0 Acute Bronchitis 03/07/2011 MIMS DO, ELVIA K 466.0 Acute Bronchitis 03/07/2011 PUSHPA ORTIZ, ROSENDO 466.0 Acute Bronchitis 03/07/2011 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, DAY S 466.0 Acute Bronchitis 03/07/2011 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, DAY S 466.0 Acute Bronchitis 03/07/2011 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, DAY S 466.0 Acute Bronchitis 03/07/2011 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, DAY S 466.0 Acute Bronchitis 03/07/2011 MIMS DO, ELVIA K 466.0 Acute Bronchitis 03/07/2011 MIMS DO, ELVIA K 466.0 Acute Bronchitis 03/07/2011 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, DAY S 466.0 Acute Bronchitis 03/07/2011 ARTIE ORTIZ, DONTAE 466.0 Acute Bronchitis 03/07/2011 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, DAY S 466.0 Acute Bronchitis 03/07/2011 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, DAY S 466.0 Acute Bronchitis 03/07/2011 ELDA DDS, HIRAM 46 6.0 Acute Bronchitis 05/05/2011 MIMS DO, ELVIA K 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 05/05/2011 235.5 NEOP LASM OF UNCERTAIN BEHAVIOR OF OTHER AND UNSPECIFIED DIGESTIVE ORGANS 05/05/2011 FELICITA FUNES ELVIA K 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 05/05/2011 235.5 NEOP LASM OF UNCERTAIN BEHAVIOR OF OTHER AND UNSPECIFIED DIGESTIVE ORGANS 05/05/2011 MIMS DO ELVIA K 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 05/05/2011 FELICITA FUNES ELVIA K 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 05/05/2011 235.5 NEOP LASM OF UNCERTAIN BEHAVIOR OF OTHER AND UNSPECIFIED DIGESTIVE ORGANS 05/05/2011 235.5 NEOP LASM OF UNCERTAIN BEHAVIOR OF OTHER AND UNSPECIFIED DIGESTIVE ORGANS 05/05/2011 235.5 NEOP LASM OF UNCERTAIN BEHAVIOR OF OTHER AND UNSPECIFIED [...] OTHER AND UNSPECIFIED DIGESTIVE ORGANS 05/05/2011 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, DAY S 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 05/05/2011 ELLEN KEMPN DAY S 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 05/05/2011 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, DAY S 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 05/05/2011 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, DAY S 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 05/05/2011 MIMS DO ELVIA K 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 05/05/2011 MIMS DO ELVIA K 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 05/05/2011 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, DAY S 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 05/05/2011 DONTAE ALVA MD 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 05/05/2011 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, DAY S 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 05/05/2011 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, DAY S 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 05/05/2011 ELDA GALINDO, HIRAM 23 5.5 NEOPLASM OF UNCERTAIN BEHAVIOR OF OTHER AND UNSPECIFIED DIGESTIVE ORGANS 07/05/2011 MIMS DO, ELVIA K 733.00 OSTEOPOROSIS UNSPECIFIED 07/05/2011 733.00 OST EOPOROSIS UNSPECIFIED 07/05/2011 MIMS DO, ELVIA K 733.00 OSTEOPOROSIS UNSPECIFIED 07/05/2011 733.00 OST EOPOROSIS UNSPECIFIED 07/05/2011 MIMS DO, ELVIA K 733.00 OSTEOPOROSIS UNSPECIFIED 07/05/2011 MIMS DO, ELVIA K 733.00 OSTEOPOROSIS UNSPECIFIED 07/05/2011 733.00 OST EOPOROSIS UNSPECIFIED 07/05/2011 733.00 OST EOPOROSIS UNSPECIFIED 07/05/2011 733.00 OST EOPOROSIS UNSPECIFIED 07/05/2011 ROSENDO BARROW MD 733.0 0 OSTEOPOROSIS UNSPECIFIED 07/05/2011 ROSENDO BARROW MD 733.0 0 OSTEOPOROSIS UNSPECIFIED 07/05/2011 ELLEN KEMPN, DAY S 733.00 OSTEOPOROSIS UNSPECIFIED 07/05/2011 MIMS DO, ELVIA K 733.00 OSTEOPOROSIS UNSPECIFIED 07/05/2011 ROSENDO BARROW MD 733.0 0 OSTEOPOROSIS UNSPECIFIED 07/05/2011 MIMS DO, ELVIA K 733.00 OSTEOPOROSIS UNSPECIFIED 07/05/2011 ROSENDO BARROW MD 733.0 0 OSTEOPOROSIS UNSPECIFIED 07/05/2011 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, DAY S 733.00 OSTEOPOROSIS UNSPECIFIED 07/05/2011 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, ADY S 733.00 OSTEOPOROSIS UNSPECIFIED 07/05/2011 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, DAY S 733.00 OSTEOPOROSIS UNSPECIFIED 07/05/2011 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, DAY S 733.00 OSTEOPOROSIS UNSPECIFIED 07/05/2011 MIMS DO, ELVIA K 733.00 OSTEOPOROSIS UNSPECIFIED 07/05/2011 MIMS DO, ELVIA K 733.00 OSTEOPOROSIS UNSPECIFIED 07/05/2011 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, DAY S 733.00 OSTEOPOROSIS UNSPECIFIED 07/05/2011 DONTAE ALVA MD 733.00 OSTEOPOROSIS UNSPECIFIED 07/05/2011 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, DAY S 733.00 OSTEOPOROSIS UNSPECIFIED 07/05/2011 LELEN 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 ENGINEER, DAY S 733.00 OSTEOPOROSIS UNSPECIFIED 07/05/2011 HIRAM SCHROEDER DDS 733.00 OSTEOPOROSIS UNSPECIFIED 01/19/2012 MIMS DO, ELVIA K 700 CORNS AND CALLOSITIES 01/19/2012 MIMS DO, ELVIA K 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 01/19/2012 MIMS DO, ELVIA K 719.41 PAIN IN JOINT INVOLVING SHOULDER REGION 01/19/2012 MIMS DO, ELVIA K V04.81 FLU DX (MEDICARE ONLY) 01/19/2012 700 CORNS AND CALLOSITIES 01/19/2012 702.0 ACTI ORLY KERATOSIS 01/19/2012 719.41 CRISTA N IN JOINT INVOLVING SHOULDER REGION 01/19/2012 V04.81 FLU DX (MEDICARE ONLY) 01/19/2012 MIMS DO, ELVIA K 700 CORNS AND CALLOSITIES 01/19/2012 MIMS DO, ELVIA K 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 01/19/2012 MIMS DO, ELVIA K 719.41 Pain In Joint Involving Shoulder Region 01/19/2012 MIMS DO, ELVIA K V04.81 FLU DX (MEDICARE ONLY) 01/19/2012 700 CORNS AND CALLOSITIES 01/19/2012 702.0 ACTI ORLY KERATOSIS 01/19/2012 719.41 Crista n In Joint Involving Shoulder Region 01/19/2012 V04.81 [...] 01/19/2012 700 CORNS AND CALLOSITIES 01/19/2012 702.0 ACTI ORLY KERATOSIS 01/19/2012 719.41 Crista n In Joint Involving Shoulder Region 01/19/2012 V04.81 FLU DX (MEDICARE ONLY) 01/19/2012 700 CORNS AND CALLOSITIES 01/19/2012 702.0 ACTI ORLY KERATOSIS 01/19/2012 719.41 Crista n In Joint Involving Shoulder Region 01/19/2012 V04.81 FLU DX (MEDICARE ONLY) 01/19/2012 700 CORNS AND CALLOSITIES 01/19/2012 702.0 ACTI ORLY KERATOSIS 01/19/2012 719.41 Crista n In Joint Involving Shoulder Region 01/19/2012 V04.81 FLU DX (MEDICARE ONLY) 01/19/2012 ROSENDO BARROW MD 700 CORNS AND CALLOSITIES 01/19/2012 ROSENDO BARROW MD 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 01/19/2012 ROSENDO BARROW MD 719.4 1 Pain In Joint Involving Shoulder Region 01/19/2012 ROSENDO BARROW MD V04.8 1 FLU DX (MEDICARE ONLY) 01/19/2012 ROSENDO BARROW MD 700 CORNS AND CALLOSITIES 01/19/2012 ROSENDO BARROW MD 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 01/19/2012 ROSENDO BARROW MD 719.4 1 Pain In Joint Involving Shoulder Region 01/19/2012 ROSENDO BARROW MD V04.8 1 FLU DX (MEDICARE ONLY) 01/19/2012 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 DAY S 700 CORNS AND CALLOSITIES 01/19/2012 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 DAY S 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 01/19/2012 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, DAY S 719.41 Pain In Joint Involving Shoulder Region 01/19/2012 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 DAY S V04.81 FLU DX (MEDICARE ONLY) [...] 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 01/19/2012 ROSENDO BARROW MD 719.4 1 Pain In Joint Involving Shoulder Region 01/19/2012 ROSENDO BARROW MD V04.8 1 FLU DX (MEDICARE ONLY) 01/19/2012 MIMS DOELVIA K 700 CORNS AND CALLOSITIES 01/19/2012 MIMS DO, ELVIA K 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 01/19/2012 MIMS DO, ELVIA K 719.41 Pain In Joint Involving Shoulder Region 01/19/2012 FELICITA DOELVIA K V04.81 FLU DX (MEDICARE ONLY) 01/19/2012 ROSENDO BARROW MD 700 CORNS AND CALLOSITIES 01/19/2012 ROSENDO BARROW MD 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 01/19/2012 ROSENDO BARROW MD 719.4 1 Pain In Joint Involving Shoulder Region 01/19/2012 ROSENDO BARROW MD V04.8 1 FLU DX (MEDICARE ONLY) 01/19/2012 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, DAY S 700 CORNS AND CALLOSITIES 01/19/2012 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, DAY S 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 01/19/2012 ELLEN ADAMS DAY S 719.41 Pain In Joint Involving Shoulder Region 01/19/2012 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, DAY S V04.81 FLU DX (MEDICARE ONLY) 01/19/2012 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, DAY S 700 CORNS AND CALLOSITIES 01/19/2012 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, DYA S 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 01/19/2012 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, DAY S 719.41 Pain In Joint Involving Shoulder Region 01/19/2012 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, DAY S V04.81 FLU DX (MEDICARE ONLY) 01/19/2012 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, DAY S 700 CORNS AND CALLOSITIES 01/19/2012 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, DAY S 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 01/19/2012 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, DAY S 719.41 Pain In Joint Involving Shoulder Region 01/19/2012 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, DAY S V04.81 FLU DX (MEDICARE ONLY) 01/19/2012 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, DAY S 700 CORNS AND CALLOSITIES 01/19/2012 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, DAY S 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 01/19/2012 ELLEN ADAMS, DAY S 719.41 Pain In Joint Involving [...] V04.81 FLU DX (MEDICARE ONLY) 01/19/2012 ELLEN ADAMS DAY S 700 CORNS AND CALLOSITIES 01/19/2012 MAGNUS HUGHES APRNNDA S 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 01/19/2012 ELLEN ADAMS DAY S 719.41 Pain In Joint Involving Shoulder Region 01/19/2012 MAGNUS HUGHES APRNNDA S V04.81 FLU DX (MEDICARE ONLY) 01/19/2012 ARTIE ORTIZ, DONTAE 700 CORNS AND CALLOSITIES 01/19/2012 ARTIE ORTIZ, ALI 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 01/19/2012 ARTIE ORTIZ, ALI 719.41 Pain In Joint Involving Shoulder Region 01/19/2012 ARTIE ORTIZ, ALI V04.81 FLU DX (MEDICARE ONLY) 01/19/2012 ELLEN ADAMS DAY S 700 CORNS AND CALLOSITIES 01/19/2012 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, DAY S 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 01/19/2012 ELLEN ADAMS DAY S 719.41 Pain In Joint Involving Shoulder Region 01/19/2012 ELLEN ADAMS DAY S V04.81 FLU DX (MEDICARE ONLY) 01/19/2012 ELLEN ADAMS DAY S 700 CORNS AND CALLOSITIES 01/19/2012 ELLEN ADAMS DAY S 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 01/19/2012 DAY HUGHES APRN S 719.41 Pain In Joint Involving Shoulder Region 01/19/2012 DAY HUGHES APRN S V04.81 FLU DX (MEDICARE ONLY) 01/19/2012 HIRAM SCHROEDER DDS 70 0 CORNS AND CALLOSITIES 01/19/2012 ELDA PATTONS, HIRAM 70 2.0 ACTINIC KERATOSIS 01/19/2012 HIRAM SCHROEDER DDS 719.41 Pain In Joint Involving Shoulder Region 01/19/2012 HIRAM SCHROEDER DDS V04.81 FLU DX (MEDICARE ONLY) 04/19/2012 ELVIA MIMS DO 719.41 PAIN IN JOINT INVOLVING SHOULDER REGION 04/19/2012 ELVIA MIMS DO 719.41 PAIN IN JOINT INVOLVING SHOULDER REGION 04/19/2012 719.41 CRISTA N IN JOINT INVOLVING SHOULDER REGION 04/19/2012 719.41 CRISTA N IN JOINT INVOLVING SHOULDER REGION 04/19/2012 719.41 CRISTA N IN JOINT INVOLVING SHOULDER REGION 04/19/2012 ROSENDO BARROW MD 719.4 1 PAIN IN JOINT INVOLVING SHOULDER REGION 04/19/2012 ROSENDO BARROW MD 719.4 1 PAIN IN JOINT INVOLVING SHOULDER REGION 04/19/2012 DAY HUGHES APRN S 719.41 PAIN IN JOINT INVOLVING SHOULDER REGION 04/19/2012 ELVIA MIMS DO 719.41 PAIN IN JOINT INVOLVING SHOULDER REGION 04/19/2012 ROSENDO BARROW MD 719.4 1 PAIN IN JOINT INVOLVING SHOULDER REGION 04/19/2012 ELVIA MIMS DO 719.41 PAIN IN JOINT INVOLVING SHOULDER REGION 04/19/2012 ROSENDO BARROW MD 719.4 1 PAIN IN JOINT INVOLVING SHOULDER REGION 04/19/2012 [...] PAIN IN JOINT INVOLVING SHOULDER REGION 04/19/2012 MIMS DO, ELVIA K 719.41 PAIN IN JOINT INVOLVING SHOULDER REGION 04/19/2012 DAY HUGHES APRN 719.41 PAIN IN JOINT INVOLVING SHOULDER REGION 04/19/2012 ARTIE ORTIZ, DONTAE 719.41 PAIN IN JOINT INVOLVING SHOULDER REGION 04/19/2012 DAY HUGHES APRN 719.41 PAIN IN JOINT INVOLVING SHOULDER REGION 04/19/2012 DAY HUGHES APRN 719.41 PAIN IN JOINT INVOLVING SHOULDER REGION 04/19/2012 HIRAM SCHROEDER DDS 719.41 PAIN IN JOINT INVOLVING SHOULDER REGION 05/04/2012 Ot 715.91 OST EOARTHROS NOS- SHLDER 05/04/2012 Ot 726.2 SHOU LDER REGION DIS NEC 05/04/2012 Ot 737.10 KYP HOSIS NOS 05/04/2012 Ot V57.1 PHYS ICAL THERAPY NEC 09/05/2012 426.4 RBBB 09/05/2012 786.09 DYSPNEA 09/05/2012 426.4 RBBB 09/05/2012 786.09 DYSPNEA 09/05/2012 ROSENDO BARROW MD 426.4 RBBB 09/05/2012 ROSENDO BARROW MD 786.0 9 DYSPNEA 09/05/2012 ROSENDO BARROW MD 426.4 RBBB 09/05/2012 ROSENDO BARROW MD 786.0 9 DYSPNEA 09/05/2012 DAY HUGHES APRN S 426.4 RBBB 09/05/2012 DAY HUGHES APRN S 786.09 DYSPNEA 09/05/2012 MIMS DO, ELVIA K 426.4 RBBB 09/05/2012 MIMS DO, ELVIA K 786.09 DYSPNEA 09/05/2012 ROSENDO BARROW MD 426.4 RBBB 09/05/2012 ROSENDO BARROW MD 786.0 9 DYSPNEA 09/05/2012 MIMS DO, ELVIA K 426.4 RBBB 09/05/2012 MIMS DO, ELVIA K 786.09 DYSPNEA 09/05/2012 ROSENDO BARROW MD 426.4 RBBB 09/05/2012 ROSENDO BARROW MD 786.0 9 DYSPNEA 09/05/2012 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, DAY S 426.4 RBBB 09/05/2012 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, DAY S 786.09 DYSPNEA 09/05/2012 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, DAY S 426.4 RBBB 09/05/2012 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, DAY S 786.09 DYSPNEA 09/05/2012 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, DAY S 426.4 RBBB 09/05/2012 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, DAY S 786.09 DYSPNEA 09/05/2012 ELLEN PHOTOVOLTAIC POWER SYSTEMS ENGINEER, DAY S 426.4 RBBB 09/05/2012 ELLEN PHOTOVOLTAIC POWER SYSTEMS ENGINEER, DAY S 786.09 DYSPNEA 09/05/2012 MIMS DO, ELVIA K 426.4 RBBB 09/05/2012 MIMS DO, ELVIA K 786.09 DYSPNEA 09/05/2012 MIMS DO, ELVIA K 426.4 RBBB 09/05/2012 MIMS DO, ELVIA K 786.09 DYSPNEA 09/05/2012 ELLEN PHOTOVOLTAIC POWER SYSTEMS ENGINEER, DAY S 426.4 RBBB 09/05/2012 ELLEN PHOTOVOLTAIC POWER SYSTEMS ENGINEER, DAY S 786.09 DYSPNEA 09/05/2012 ARTIE ORTIZ, ALI 426.4 RBBB 09/05/2012 ARTIE ORTIZ, ALI 786.09 DYSPNEA 09/05/2012 ELLEN PHOTOVOLTAIC POWER SYSTEMS ENGINEER, DAY S 426.4 RBBB 09/05/2012 ELLEN PHOTOVOLTAIC POWER SYSTEMS ENGINEER, DAY S 786.09 DYSPNEA 09/05/2012 ELLEN PHOTOVOLTAIC POWER SYSTEMS ENGINEER, DAY S 426.4 RBBB 09/05/2012 ELLEN PHOTOVOLTAIC POWER SYSTEMS ENGINEER, DAY S 786.09 DYSPNEA 09/05/2012 SCHROEDER DDS, HIRAM 42 6.4 RBBB 09/05/2012 SCHROEDER DDS, HIRAM 786.09 DYSPNEA 11/14/2012 110.1 ONYC HOMYCOSIS 11/14/2012 ROSENDO BARROW MD 110.1 ONYCHOMYCOSIS 11/14/2012 ROSENDO BARROW MD 110.1 ONYCHOMYCOSIS 11/14/2012 ELLEN ADAMS, DAY S 110.1 ONYCHOMYCOSIS 11/14/2012 MIMS DO, ELVIA K 110.1 ONYCHOMYCOSIS 11/14/2012 ROSENDO BARROW MD 110.1 ONYCHOMYCOSIS 11/14/2012 MIMS DO, ELVIA K 110.1 ONYCHOMYCOSIS 11/14/2012 PUSHPA ORTIZ, ROSENDO 110.1 ONYCHOMYCOSIS 11/14/2012 ELLEN PHOTOVOLTAIC POWER SYSTEMS ENGINEER, DAY S 110.1 ONYCHOMYCOSIS 11/14/2012 ELLEN PHOTOVOLTAIC POWER SYSTEMS ENGINEER, DAY S 110.1 ONYCHOMYCOSIS 11/14/2012 ELLEN PHOTOVOLTAIC POWER SYSTEMS ENGINEER, DAY S 110.1 ONYCHOMYCOSIS 11/14/2012 ELLEN PHOTOVOLTAIC POWER SYSTEMS ENGINEER, DAY S 110.1 ONYCHOMYCOSIS 11/14/2012 MIMS DO, ELVIA K 110.1 ONYCHOMYCOSIS 11/14/2012 MIMS DO, ELVIA K 110.1 ONYCHOMYCOSIS 11/14/2012 ELLEN ADAMS, DAY S 110.1 ONYCHOMYCOSIS 11/14/2012 ARTIE ORTIZ, DONTAE 110.1 ONYCHOMYCOSIS 11/14/2012 ELLEN KEMPN, DAY S 110.1 ONYCHOMYCOSIS 11/14/2012 ELLEN ADAMS, DAY S 110.1 ONYCHOMYCOSIS 11/14/2012 ELDA DDS, HIRAM 11 0.1 ONYCHOMYCOSIS 01/22/2013 NEGRO DOWELL MD Ot 272.0 PURE HYPERCHOLESTEROLEM 01/22/2013 NEGRO DOWELL MD Ot 298.9 PSYCHOSIS NOS 01/22/2013 NEGRO DOWELL MD Ot 305.1 TOBACCO USE DISORDER 01/22/2013 NEGRO DOWELL MD Ot 315.35 CHILDHOOD ONSET FLUENCY DISORDER 01/22/2013 NEGRO DOWELL MD Ot 338.29 OTHER CHRONIC PAIN 01/22/2013 NEGRO DOWELL MD Ot 368.8 VISUAL DISTURBANCES NEC 01/22/2013 NEGRO DOWELL MD Ot 401.9 HYPERTENSION NOS 01/22/2013 NEGRO DOWELL MD Ot 414.01 CORONARY ATHEROSCLEROSIS OF [place] CORON 01/22/2013 NEGRO DOWELL MD Ot 433.10 [...] ROSENDO BARROW MD 784.0 HEADACHE 01/29/2013 ELLEN PHOTOV[employer] ENGINEER, DAY S 784.0 HEADACHE 01/29/2013 MIMS , ELVIA K 784.0 HEADACHE 01/29/2013 ROSENDO BARROW MD 784.0 HEADACHE 01/29/2013 MIMS , ELVIA K 784.0 HEADACHE 01/29/2013 ROSENDO BARROW MD 784.0 HEADACHE 01/29/2013 ELLEN [employer]OTOV[employer]S ENGINEER, DAY S 784.0 HEADACHE 01/29/2013 ELLEN [employer]OV[employer]S ENGINEER, DAY S 784.0 HEADACHE 01/29/2013 ELLEN [employer] ENGINEER, DAY S 784.0 HEADACHE 01/29/2013 ELLEN [employer]S ENGINEER, DAY S 784.0 HEADACHE 01/29/2013 MIMS DO, ELVIA K 784.0 HEADACHE 01/29/2013 MIMS DO, ELVIA K 784.0 HEADACHE 01/29/2013 ELLEN [employer] ENGINEER, DAY S 784.0 HEADACHE 01/29/2013 DONTAE ALVA MD 784.0 HEADACHE 01/29/2013 ELLEN [employer] ENGINEER, DAY S 784.0 HEADACHE 01/29/2013 ELLEN [employer] ENGINEER, DAY S 784.0 HEADACHE 01/29/2013 HIRAM SCHROEDER DDS 78 4.0 HEADACHE 02/05/2013 ROSENDO BARROW MD 236.9 1 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 02/05/2013 ELLEN PHOTOV[employer]S ENGINEER, DAY S 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 02/05/2013 MIMS DO, ELVIA K 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 02/05/2013 ROSENDO BARROW MD 236.9 1 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 02/05/2013 ELVIA MIMS DO K 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 02/05/2013 ROSENDO BARROW MD 236.9 1 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 02/05/2013 ELLEN PHOTOV[employer] SYSTEMS ENGINEER, DAY S 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 02/05/2013 ELLEN PHOTOV[employer] SYSTEMS ENGINEER, DAY S 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 02/05/2013 ELLEN PHOTOVOL[employer] P[employer] SYSTEMS ENGINEER, DAY S 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 02/05/2013 ELLEN PH[employer]OV[employer] SYSTEMS ENGINEER, DAY S 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 02/05/2013 LUCIO MIMS DOA K 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 02/05/2013 LUCIO MIMS DOA K 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 02/05/2013 ELLEN PHOTOV[employer] SYSTEMS ENGINEER, DAY S 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 02/05/2013 ARTIE ORTIZ, DONTAE 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 02/05/2013 ELLEN PHOTOVOL[employer]S ENGINEER, DAY S 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 02/05/2013 ELLEN PH[employer] SYSTEMS ENGINEER, DAY S 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 02/05/2013 HIRAM SCHROEDER DDS 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 02/11/2013 ELLEN [employer]S ENGINEER, DAY S V15.82 Nicotine abuse 02/11/2013 LUCIO MIMS DOA K V15.82 Nicotine abuse 02/11/2013 ROSENDO BARROW MD V15.8 2 Nicotine abuse 02/11/2013 ELVIA MIMS DO K V15.82 Nicotine abuse 02/11/2013 ROSENDO BARROW MD V15.8 2 Nicotine abuse 02/11/2013 ELLEN [employer]S ENGINEER, DAY S V15.82 Nicotine abuse 02/11/2013 ELLEN [employer]S ENGINEER, DAY S V15.82 Nicotine abuse 02/11/2013 ELLEN [employer]S ENGINEER, DAY S V15.82 Nicotine abuse 02/11/2013 ELLEN [employer]S ENGINEER, DAY S V15.82 Nicotine abuse 02/11/2013 MIMS DO, ELVIA K V15.82 Nicotine abuse 02/11/2013 MIMS DO, ELVIA K V15.82 Nicotine abuse 02/11/2013 ELLEN [employer]S ENGINEER, DAY S V15.82 Nicotine abuse 02/11/2013 ARTIE ORTIZ, ALI V15.82 Nicotine abuse 02/11/2013 ELLEN [employer]S ENGINEER, DAY S V15.82 Nicotine abuse 02/11/2013 ELLEN PHOTOVOLTAIC POWER SYSTEMS ENGINEER, DAY S V15.82 Nicotine abuse 02/11/2013 SCHROEDER JOSIEHIRAM V15.82 Nicotine abuse 02/27/2013 MIMS DO ELVIA K 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 02/27/2013 ROSENDO BARROW MD 433.1 1 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 02/27/2013 FELICITA FUNES ELVIA K 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 02/27/2013 ROSENDO BARROW MD 433.1 1 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 02/27/2013 ELLEN PHOTOVOLTAIC POWER SYSTEMS ENGINEER, DAY S 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 02/27/2013 ELLEN PHOTOVOLTAIC POWER SYSTEMS ENGINEER, DAY S 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 02/27/2013 ELLEN PHOTOVOLTAIC POWER SYSTEMS ENGINEER, DAY S 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 02/27/2013 ELLEN KEMPN, DAY S 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 02/27/2013 MIMS DO ELVIA K 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 02/27/2013 MIMS DO ELVIA K 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 02/27/2013 ELLEN PHOTOVOLTAIC POWER SYSTEMS ENGINEER, DAY S 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 02/27/2013 ARTIE ORTIZ, DONTAE 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 02/27/2013 ELLEN PHOTOVOLTAIC POWER SYSTEMS ENGINEER, DAY S 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 02/27/2013 ELLEN KEMPN, DAY S 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 02/27/2013 HIRAM SCHROEDER DDS 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 05/20/2013 MAGNUS HUGHES APRNNDA S 333.1 ESSENTIAL AND OTHER SPECIFIED FORMS OF TREMOR 05/20/2013 ELLEN PHOTOVOLTAIC POWER SYSTEMS ENGINEER, DAY S 333.1 ESSENTIAL AND OTHER SPECIFIED FORMS OF TREMOR 05/20/2013 ELLEN ADAMS DAY S 333.1 ESSENTIAL AND OTHER SPECIFIED FORMS OF TREMOR 05/20/2013 FELICITA FUNES ELVIA K 333.1 ESSENTIAL AND OTHER SPECIFIED FORMS OF TREMOR 05/20/2013 FELICITA FUNES ELVIA K 333.1 ESSENTIAL AND OTHER SPECIFIED FORMS OF TREMOR 05/20/2013 MAGNUS HUGHES APRNNDA S 333.1 ESSENTIAL AND OTHER SPECIFIED FORMS OF TREMOR 05/20/2013 DONTAE ALVA MD 333.1 ESSENTIAL AND OTHER SPECIFIED FORMS OF TREMOR 05/20/2013 ELLEN PHOTOVOLTAIC POWER SYSTEMS ENGINEERMAGNUS [place]NDA S 333.1 ESSENTIAL AND OTHER SPECIFIED FORMS OF TREMOR 05/20/2013 ELLEN ADAMS DAY S 333.1 ESSENTIAL AND OTHER SPECIFIED FORMS OF TREMOR 05/20/2013 HIRAM SCHROEDER DDS 33 3.1 ESSENTIAL AND OTHER SPECIFIED FORMS OF TREMOR 08/26/2013 MAGNUS HUGHES APRNNDA S V76.12 MAMMOGRAM SCREENING 08/26/2013 MIMS DO ELVIA K V76.12 MAMMOGRAM SCREENING 08/26/2013 MIMS DO ELVIA K V76.12 MAMMOGRAM SCREENING 08/26/2013 MAGNUS HUGHES APRNNDA S V76.12 MAMMOGRAM SCREENING 08/26/2013 DONTAE ALVA MD V76.12 MAMMOGRAM SCREENING 08/26/2013 ELLEN ADAMS DAY S V76.12 MAMMOGRAM SCREENING 08/26/2013 ELLEN ADAMS DAY S V76.12 MAMMOGRAM SCREENING 08/26/2013 HIRAM SCHROEDER DDS V76.12 MAMMOGRAM SCREENING 08/28/2013 FELICITA FUNES ELVIA K 437.9 UNSPECIFIED CEREBROVASCULAR DISEASE 08/28/2013 MIMS DO ELVIA K 437.9 UNSPECIFIED CEREBROVASCULAR DISEASE 08/28/2013 MAGNUS HUGHES APRNNDA S 437.9 UNSPECIFIED CEREBROVASCULAR DISEASE 08/28/2013 ARTIE MD, ALI 437.9 UNSPECIFIED CEREBROVASCULAR DISEASE 08/28/2013 ELLEN KEMPN, DAY S 437.9 UNSPECIFIED CEREBROVASCULAR DISEASE 08/28/2013 ELLEN KEMPN, DAY S 437.9 UNSPECIFIED CEREBROVASCULAR DISEASE 08/28/2013 SCHROEDER DDS, HIRAM 43 7.9 UNSPECIFIED CEREBROVASCULAR DISEASE 02/26/2014 ELLEN PHOTOVOLTAIC POWER SYSTEMS ENGINEER, DAY S 305.1 TOBACCO ABUSE 02/26/2014 ELLEN PHOTOVOLTAIC POWER SYSTEMS ENGINEER, DAY S 401.9 HYPERTENSION, UNSPECIFIED ESSENTIAL 02/26/2014 ELLEN KEMPN, DAY S 433.10 CAROTID 02/26/2014 ELLEN KEMPN, DAY S 786.50 CHEST PAIN 02/26/2014 ARTIE ORTIZ, ALI 305.1 TOBACCO ABUSE 02/26/2014 ARTIE ORTIZ, ALI 401.9 HYPERTENSION, UNSPECIFIED ESSENTIAL 02/26/2014 ARTIE ORTIZ, ALI 433.10 CAROTID 02/26/2014 ARTIE ORTIZ, ALI 786.50 CHEST PAIN 02/26/2014 ELLEN KEMPN, DAY S 305.1 TOBACCO ABUSE 02/26/2014 ELLEN KEMPN, DAY S 401.9 HYPERTENSION, UNSPECIFIED ESSENTIAL 02/26/2014 ELLEN KEMPN, DAY S 433.10 CAROTID 02/26/2014 ELLEN ADAMS, DAY S 786.50 CHEST PAIN 02/26/2014 ELLEN KEMPN, DAY S 305.1 TOBACCO ABUSE 02/26/2014 ELLEN KEMPN, DAY S 401.9 HYPERTENSION, UNSPECIFIED ESSENTIAL 02/26/2014 ELLEN KEMPN, DAY S 433.10 CAROTID 02/26/2014 ELLEN KEMPN, DAY S 786.50 CHEST PAIN 02/26/2014 SCHROEDER DDS, HIRAM 30 5.1 TOBACCO ABUSE 02/26/2014 SCHROEDER DDS, HIRAM 40 1.9 HYPERTENSION, UNSPECIFIED ESSENTIAL 02/26/2014 SCHROEDER DDS, HIRAM 433.10 CAROTID 02/26/2014 SCHROEDER DDS, HIRAM 786.50 CHEST PAIN 04/09/2014 ELLEN ADAMS, DAY S 702.19 SEBORRHEIC KERATOSIS 04/09/2014 MAGNUS HUGHES APRNNDA S 782.1 RASH 04/09/2014 SCHROEDER DDS, HIRAM 702.19 SEBORRHEIC KERATOSIS 04/09/2014 SCHROEDER DDS, HIRAM 78 2.1 RASH 07/23/2014 DAY HUGHES CUSTOMER SERVICE REP Ot 401.9 07/23/2014 MAGNUS HUGHESNDA CUSTOMER SERVICE REP Ot 733.00 07/29/2014 FELICITA FUNES ELVIA Patton Ot 272.4 HYPERLIPIDEMIA NEC/NOS 07/29/2014 MIMS DO ELVIA K Ot 288.60 LEUKOCYTOSIS, UNSPECIFIED 07/29/2014 MIMS DO ELVIA Patton Ot 305.1 TOBACCO USE DISORDER 07/29/2014 FELICITA FUNES ELVIA [place] Ot 401.9 HYPERTENSION NOS 07/29/2014 MIMS DO ELVIA [place] Ot 414.01 CORONARY ATHEROSCLEROSIS OF [place] CORON 07/29/2014 MIMS DO ELVIA [place] Ot 426.4 RT BUNDLE BRANCH BLOCK 07/29/2014 MIMS DO ELVIA [place] Ot 433.10 CAROTID ARTERY OCCLUSION W O CEREBRAL IN 07/29/2014 FELICITA FUNES ELVIA [place] Ot 530.81 ESOPHAGEAL REFLUX 07/29/2014 FELICITA FUNES ELVIA [place] Ot 781.0 ABN INVOLUN MOVEMENT NEC 07/29/2014 FELICITA DO ELVIA Patton Ot 784.0 HEADACHE 07/29/2014 MIMS DO ELVIA Patton Ot 786.59 CHEST PAIN NEC 07/29/2014 MIMS DO ELVIA Patton Ot V12.54 PERSONAL HX OF TIA, CEREBRAL INFARCTION 07/29/2014 FELICITA DO ELVIA Patton Ot V17.49 FAMILY HISTORY OF OTHER CARDIOVASCULAR D 07/29/2014 FELICITA FUNES ELVIA Patton Ot V58.69 OTH MED,LT,CURRENT USE 07/30/2014 WILLIE WOODSON MD Ot 997.2 SURG COMP-JESI VASC SYST 07/30/2014 WILLIE WOODSON MD Ot E879.8 ABN REACT-PROCEDURE NEC 07/31/2014 JESSE MORRIS MD Ot 997.2 SURG COMP-JESI VASC SYST 07/31/2014 JESSE MORRIS MD Ot E849. 6 ACCIDENT IN PUBLIC BLDG 07/31/2014 JESSE MORRIS MD Ot E879. 0 ABN REACT-CARDIAC CATH 08/06/2014 BAIMA, SHERWIN L CUSTOMER SERVICE REP Ot 272.4 08/06/2014 BAIMA, SHERWIN L CUSTOMER SERVICE REP Ot 305.1 08/06/2014 BAIMA, SHERWIN L CUSTOMER SERVICE REP Ot 338.19 08/06/2014 BAIMA, SHERWIN L CUSTOMER SERVICE REP Ot 401.9 08/06/2014 BAIMA, SHERWIN L CUSTOMER SERVICE REP Ot 442.9 09/05/2014 BAIMA, SHERWIN L CUSTOMER SERVICE REP Ot 272.4 09/05/2014 BAIMA, SHERWIN L CUSTOMER SERVICE REP Ot 305.1 09/05/2014 BAIMA, SHERWIN L CUSTOMER SERVICE REP Ot 338.19 09/05/2014 BAIMA, SHERWIN L CUSTOMER SERVICE REP Ot 401.9 09/05/2014 BAIMA, SHERWIN L CUSTOMER SERVICE REP Ot 442.9 10/15/2014 ARTIE ORTIZ FAC, ALI FACP CCDS Ot 272.4 10/15/2014 ARTIE ORTIZ FAC, ALI FACP CCDS Ot 433.10 10/15/2014 ARTIE ORTIZ FAC, ALI FACP CCDS Ot 433.30 06/30/2015 KANDICE ORTIZ, WILLIE Santos Ot F17.210 NICOTINE DEPENDENCE, CIGARETTES, UNCOMPL 06/30/2015 WILLIE WOODSON MD Ot I10 ESSENTIAL (PRIMARY) HYPERTENSION 06/30/2015 KANDICE ORTIZ, WILLIE Santos Ot M79.651 PAIN IN RIGHT THIGH 06/30/2015 KANDICE ORTIZ, WILLIE Santos Ot R07.89 OTHER CHEST PAIN 07/01/2015 WILLIE WOODSON MD Ot M79.651 07/01/2015 WILLIE WOODSON MD Ot R07.89 06/14/2016 Ot 733.00 OST EOPOROSIS NOS 06/14/2016 Ot 733.90 BON E CARTILAGE DIS NOS 06/14/2016 Ot V76.12 OTH SCREEN MAMMO- MALIGN NEOPLASM OF [place] 06/14/2016 Ot 592.0 CALC ULUS OF KIDNEY 06/14/2016 Ot 577.9 PANC REATIC DISEASE NOS 06/14/2016 Ot 592.0 CALC ULUS OF KIDNEY 06/14/2016 Ot 593.9 CELIO L URETERAL DIS NOS 06/14/2016 Ot V81.5 SCRE EN FOR NEPHROPATHY 06/14/2016 Ot 577.9 PANC REATIC DISEASE NOS 06/14/2016 ARTIE ORTIZ FACC, DONTAE FACElie CCDS Ot 786.09 RESPIRATORY ABNORM NEC 06/14/2016 HUMBERTO FORD MD Ot V58. 69 OTH MED,LT,CURRENT USE 06/14/2016 HUMBERTO FORD MD Ot V58. 83 ENCOUNTER FOR THERAPEUTIC DRUG MONITORIN 06/14/2016 DAY HUGHES CUSTOMER SERVICE REP Ot 235.9 [facility] RESP NEC 06/14/2016 DAY HUGHES CUSTOMER SERVICE REP Ot 593.9 RENAL URETERAL DIS NOS 06/14/2016 ALYSSA HUGHESA CUSTOMER SERVICE REP Ot 784.0 HEADACHE 06/14/2016 ALYSSA HUGHESA CUSTOMER SERVICE REP Ot 753.19 OTHER SPECIFIED CYSTIC KIDNEY DISEASE 06/14/2016 ALYSSA HUGHESA CUSTOMER SERVICE REP Ot 272.0 PURE HYPERCHOLESTEROLEM 06/14/2016 MAGNUS HUGHESNDA CUSTOMER SERVICE REP Ot 333.1 TREMOR NEC 06/14/2016 DAY HUGHES CUSTOMER SERVICE REP Ot 733.00 OSTEOPOROSIS NOS 06/14/2016 DAY HUGHES CUSTOMER SERVICE REP Ot V76.12 OTH SCREEN MAMMO-MALIGN NEOPLASM OF [place] 06/14/2016 ALYSSA HUGHESA CUSTOMER SERVICE REP Ot 401.9 HYPERTENSION NOS 06/14/2016 DAY HUGHES CUSTOMER SERVICE REP Ot 733.00 OSTEOPOROSIS NOS 06/14/2016 BAIMA, SHERWIN L CUSTOMER SERVICE REP Ot 272.4 HYPERLIPIDEMIA NEC/NOS 06/14/2016 BAIMA, SHERWIN L CUSTOMER SERVICE REP Ot 305.1 TOBACCO USE DISORDER 06/14/2016 BAIMA, SHERWIN L CUSTOMER SERVICE REP Ot 338.19 OTHER ACUTE PAIN 06/14/2016 BAIMA, SHERWIN L CUSTOMER SERVICE REP Ot 401.9 HYPERTENSION NOS 06/14/2016 BAIMA, SHERWIN L CUSTOMER SERVICE REP Ot 442.9 ANEURYSM NOS 06/14/2016 ARTIE ORTIZ FACC, DONTAE FACP CCDS Ot 272.4 HYPERLIPIDEMIA NEC/NOS 06/14/2016 ARTIE ORTIZ FACC, DONTAE FACP CCDS Ot 433.10 CAROTID ARTERY OCCLUSION W O CEREBRAL IN 06/14/2016 ARTIE ORTIZ FACC, DONTAE FACP CCDS Ot 433.30 MULT BILTRAL ARTERY OCCLUSION WO CEREBRA 06/15/2016 NICK BETTS CUSTOMER SERVICE REP Ot G89.29 OTHER CHRONIC PAIN 06/15/2016 NICK BETTS Ot M54.41 LUMBAGO WITH SCIATICA, RIGHT SIDE 06/15/2016 NICK BETTS Ot G89.29 OTHER CHRONIC PAIN 06/15/2016 NICK BETTS Ot M54.41 LUMBAGO WITH SCIATICA, RIGHT SIDE 06/19/2016 PERCY RUBIO DO Ot F17.210 NICOTINE DEPENDENCE, CIGARETTES, UNCOMPL 06/19/2016 PERCY RUBIO DO Ot I10 ESSENTIAL (PRIMARY) HYPERTENSION 06/19/2016 PERCY RUBIO DO Ot I25.10 ATHSCL HEART DISEASE OF [place] CORONARY 06/19/2016 PERCY RUBIO DO Ot J44.9 CHRONIC OBSTRUCTIVE PULMONARY DISEASE, U 06/19/2016 PERCY RUBIO DO Ot N20.0 CALCULUS OF KIDNEY 06/19/2016 PERCY RUBIO DO Ot N39.0 URINARY TRACT INFECTION, SITE NOT SPECIF 06/19/2016 PERCY RUBIO DO Ot R10.31 RIGHT LOWER QUADRANT PAIN 06/19/2016 PERCY RUBIO DO Ot Z79.02 TRAVEL MONEY ADVISOR (CURRENT) USE OF ANTITHROMBOTI 06/19/2016 PERCY RUBIO DO Ot Z79.82 TRAVEL MONEY ADVISOR (CURRENT) USE OF ASPIRIN 06/19/2016 PERCY RUBIO DO Ot Z79.899 OTHER TRAVEL MONEY ADVISOR (CURRENT) DRUG THERAPY 06/19/2016 PERCY RUBIO DO Ot Z87.442 PERSONAL HISTORY OF URINARY CALCULI 07/05/2016 DAY HUGHES Ot R10.9 UNSPECIFIED ABDOMINAL PAIN 07/06/2016 DAY HUGHES Ot R10.9 UNSPECIFIED ABDOMINAL PAIN 07/12/2016 NICK BETTS Ot G89.29 OTHER CHRONIC PAIN 07/12/2016 NICK BETTS Ot M54.41 LUMBAGO WITH SCIATICA, RIGHT SIDE 07/19/2016 KENYETTA REA DO Ot K59.0 0 CONSTIPATION, UNSPECIFIED 07/19/2016 KENYETTA REA DO Ot R19.5 OTHER FECAL ABNORMALITIES 07/19/2016 KENYETTA REA DO Ot Z01.8 18 ENCOUNTER FOR OTHER PREPROCEDURAL EXAMIN 07/20/2016 Ot 733.00 OST EOPOROSIS NOS 07/20/2016 Ot 733.90 BON E CARTILAGE DIS NOS 07/20/2016 Ot V76.12 OTH SCREEN MAMMO- MALIGN NEOPLASM OF [place] 07/20/2016 Ot 592.0 CALC ULUS OF KIDNEY 07/20/2016 Ot 577.9 PANC REATIC DISEASE NOS 07/20/2016 Ot 592.0 CALC ULUS OF KIDNEY 07/20/2016 Ot 593.9 CELIO L URETERAL DIS NOS 07/20/2016 Ot V81.5 SCRE EN FOR NEPHROPATHY 07/20/2016 Ot 577.9 PANC REATIC DISEASE NOS 07/20/2016 ARTIE ORTIZ FAC, ALI FACP CCDS Ot 786.09 RESPIRATORY ABNORM NEC 07/20/2016 SARAH ORTIZ, HUMBERTO Ly Ot V58. 69 OTH MED,LT,CURRENT USE 07/20/2016 HUMBERTO FORD MD Ot V58. 83 ENCOUNTER FOR THERAPEUTIC DRUG MONITORIN 07/20/2016 DAY HUGHES CUSTOMER SERVICE REP Ot 235.9 [facility] RESP NEC 07/20/2016 DAY HUGHES CUSTOMER SERVICE REP Ot 593.9 RENAL URETERAL DIS NOS 07/20/2016 DAY HUGHES CUSTOMER SERVICE REP Ot 784.0 HEADACHE 07/20/2016 DAY HUGHES CUSTOMER SERVICE REP Ot 753.19 OTHER SPECIFIED CYSTIC KIDNEY DISEASE 07/20/2016 DAY HUGHES CUSTOMER SERVICE REP Ot 272.0 PURE HYPERCHOLESTEROLEM 07/20/2016 DAY HUGHES CUSTOMER SERVICE REP Ot 333.1 TREMOR NEC 07/20/2016 DAY HUGHES CUSTOMER SERVICE REP Ot 733.00 OSTEOPOROSIS NOS 07/20/2016 DAY HUGHES CUSTOMER SERVICE REP Ot V76.12 OTH SCREEN MAMMO-MALIGN NEOPLASM OF [place] 07/20/2016 DAY HUGHES CUSTOMER SERVICE REP Ot 401.9 HYPERTENSION NOS 07/20/2016 DAY HUGHES CUSTOMER SERVICE REP Ot 733.00 OSTEOPOROSIS NOS 07/20/2016 BAIANDI MACKHER L CUSTOMER SERVICE REP Ot 272.4 HYPERLIPIDEMIA NEC/NOS 07/20/2016 YASMINE SHERWIN L CUSTOMER SERVICE REP Ot 305.1 TOBACCO USE DISORDER 07/20/2016 BAIMA SHERWIN L CUSTOMER SERVICE REP Ot 338.19 OTHER ACUTE PAIN 07/20/2016 YASMINE SHERWIN L CUSTOMER SERVICE REP Ot 401.9 HYPERTENSION NOS 07/20/2016 SHERWIN UNDERWOOD CUSTOMER SERVICE REP Ot 442.9 ANEURYSM NOS 07/20/2016 ARTIE ORTIZ [facility], DONTAE SERRA CCDS Ot 272.4 HYPERLIPIDEMIA NEC/NOS 07/20/2016 ARTIE MELENDEZ, DONTAE [facility] CCDS Ot 433.10 CAROTID ARTERY OCCLUSION W O CEREBRAL IN 07/20/2016 ARTIE ORTIZ FACC, DONTAE [facility] CCDS Ot 433.30 MULT BILTRAL ARTERY OCCLUSION WO CEREBRA 07/20/2016 NICK BETTS CUSTOMER SERVICE REP Ot G89.29 OTHER CHRONIC PAIN 07/20/2016 NICK BETTS CUSTOMER SERVICE REP Ot M54.41 LUMBAGO WITH SCIATICA, RIGHT SIDE 07/20/2016 KENYETTA REA DO Ot K52.9 NONINFECTIVE GASTROENTERITIS AND COLITIS 07/20/2016 KENYETTA REA DO Ot K57.9 0 DVRTCLOS OF INTEST, PART UNSP, W/O PERF 07/20/2016 KENYETTA REA DO Ot K64.8 OTHER HEMORRHOIDS 07/21/2016 KENYETTA REA DO B Ot K52.9 NONINFECTIVE GASTROENTERITIS AND COLITIS 07/21/2016 KENYETTA REA DO B Ot K57.9 0 DVRTCLOS OF INTEST, PART UNSP, W/O PERF 07/21/2016 KENYETTA REA DO B Ot K64.8 OTHER HEMORRHOIDS 07/22/2016 KENYETTA REA DO B Ot K52.9 NONINFECTIVE GASTROENTERITIS AND COLITIS 07/22/2016 KENYETTA REA DO B Ot K57.9 0 DVRTCLOS OF INTEST, PART UNSP, W/O PERF 07/22/2016 KENYETTA REA DO B Ot K64.8 OTHER HEMORRHOIDS 07/26/2016 KENYETTA REA DO B Ot K52.9 NONINFECTIVE GASTROENTERITIS AND COLITIS 07/26/2016 KENYETTA REA DO B Ot K57.9 0 DVRTCLOS OF INTEST, PART UNSP, W/O PERF 07/26/2016 KENYETTA REA DO B Ot K64.8 OTHER HEMORRHOIDS 07/27/2016 KENYETTA REA DO B Ot K62.5 HEMORRHAGE OF ANUS AND RECTUM 07/28/2016 JAMEEL TOMPKINS DO Ot D50.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 07/28/2016 JAMEEL TOMPKINS DO Ot E78.5 HYPERLIPIDEMIA, UNSPECIFIED 07/28/2016 JAMEEL TOMPKINS DO Ot F17.21 0 NICOTINE DEPENDENCE, CIGARETTES, UNCOMPL 07/28/2016 JAMEEL TOMPKINS DO Ot G25.0 ESSENTIAL TREMOR 07/28/2016 JAMEEL TOMPKINS DO Ot I10 ESSENTIAL (PRIMARY) HYPERTENSION 07/28/2016 JAMEEL TOMPKINS DO Ot I25.10 ATHSCL HEART DISEASE OF [place] CORONARY 07/28/2016 JAMEEL TOMPKINS DO Ot I45.10 [...] OF ANUS AND RECTUM 08/31/2016 SHERWIN UNDERWOOD CUSTOMER SERVICE REP Ot M79.604 PAIN IN RIGHT LEG 09/20/2016 SHERWIN UNDERWOOD CUSTOMER SERVICE REP Ot I82.441 ACUTE EMBOLISM AND THROMBOSIS OF RIGHT T 09/20/2016 SHERWIN UNDERWOOD CUSTOMER SERVICE REP Ot M79.604 PAIN IN RIGHT LEG 09/20/2016 SHERWIN UNDERWOOD CUSTOMER SERVICE REP Ot R22.41 LOCALIZED SWELLING, MASS AND LUMP, RIGHT 10/10/2016 SHERWIN UNDERWOOD CUSTOMER SERVICE REP Ot I82.441 ACUTE EMBOLISM AND THROMBOSIS OF RIGHT T 10/10/2016 SHERWIN UNDERWOOD CUSTOMER SERVICE REP Ot M79.604 PAIN IN RIGHT LEG 10/10/2016 SHERWIN UNDERWOOD CUSTOMER SERVICE REP Ot R22.41 LOCALIZED SWELLING, MASS AND LUMP, RIGHT 10/10/2016 SHERWIN UNDERWOOD CUSTOMER SERVICE REP Ot I82.442 ACUTE EMBOLISM AND THROMBOSIS OF LEFT TI 10/10/2016 SHERWIN UNDERWOOD L CUSTOMER SERVICE REP Ot I82.442 ACUTE EMBOLISM AND THROMBOSIS OF LEFT TI 11/02/2016 BAISHERWIN MACK L CUSTOMER SERVICE REP Ot M79.661 PAIN IN RIGHT LOWER LEG 11/02/2016 BELENFREDERICK SHERWIN L CUSTOMER SERVICE REP Ot R22.41 LOCALIZED SWELLING, MASS AND LUMP, RIGHT 12/30/2016 ARTIE ORTIZ FACC, DONTAE SERRA CCDS Ot 786.09 RESPIRATORY ABNORM NEC 12/30/2016 HUMBERTO FORD MD Ot V58. 69 OTH MED,LT,CURRENT USE 12/30/2016 HUMBERTO FORD MD Ot V58. 83 ENCOUNTER FOR THERAPEUTIC DRUG MONITORIN 12/30/2016 DAY HUGHES CUSTOMER SERVICE REP Ot 235.9 [facility] RESP NEC 12/30/2016 DAY HUGHES CUSTOMER SERVICE REP Ot 593.9 RENAL URETERAL DIS NOS 12/30/2016 DAY HUGHES CUSTOMER SERVICE REP Ot 784.0 HEADACHE 12/30/2016 ALYSSA HUGHESA CUSTOMER SERVICE REP Ot 753.19 OTHER SPECIFIED CYSTIC KIDNEY DISEASE 12/30/2016 DAY HUGHES CUSTOMER SERVICE REP Ot 272.0 PURE HYPERCHOLESTEROLEM 12/30/2016 ALYSSA HUGHESA CUSTOMER SERVICE REP Ot 333.1 TREMOR NEC 12/30/2016 DAY HUGHES CUSTOMER SERVICE REP Ot 733.00 OSTEOPOROSIS NOS 12/30/2016 DAY HUGHES CUSTOMER SERVICE REP Ot V76.12 OTH SCREEN MAMMO-MALIGN NEOPLASM OF [place] 12/30/2016 ALYSSA HUGHESA CUSTOMER SERVICE REP Ot 401.9 HYPERTENSION NOS 12/30/2016 ALYSSA HUGHESA CUSTOMER SERVICE REP Ot 733.00 OSTEOPOROSIS NOS 12/30/2016 BELENFREDERICK, SHERWIN L CUSTOMER SERVICE REP Ot 272.4 HYPERLIPIDEMIA NEC/NOS 12/30/2016 BAIFREDERICK, SHERWIN L CUSTOMER SERVICE REP Ot 305.1 TOBACCO USE DISORDER 12/30/2016 BAIMA, SHERWIN L CUSTOMER SERVICE REP Ot 338.19 OTHER ACUTE PAIN 12/30/2016 BAIMA, SHERWIN L CUSTOMER SERVICE REP Ot 401.9 HYPERTENSION NOS 12/30/2016 BAIMA, SHERWIN L CUSTOMER SERVICE REP Ot 442.9 ANEURYSM NOS 12/30/2016 ARTIE ORTIZ FACC, DONTAE [facility] CCDS Ot 272.4 HYPERLIPIDEMIA NEC/NOS 12/30/2016 ARTIE ORTIZ FACC, DONTAE FACP CCDS Ot 433.10 CAROTID ARTERY OCCLUSION W O CEREBRAL IN 12/30/2016 ARTIE ORTIZ FACC, ALI FACP CCDS Ot 433.30 MULT BILTRAL ARTERY OCCLUSION WO CEREBRA 12/30/2016 NICK BETTS Ot G89.29 OTHER CHRONIC PAIN 12/30/2016 NICK BETTS Ot M54.41 LUMBAGO WITH SCIATICA, RIGHT SIDE 12/30/2016 KENYETTA REA DO Ot K62.5 HEMORRHAGE OF ANUS AND RECTUM 12/30/2016 SHERWIN UNDERWOOD Ot I82.441 ACUTE EMBOLISM AND THROMBOSIS OF RIGHT T 12/30/2016 BAISHERWIN MACK Ot M79.604 PAIN IN RIGHT LEG 12/30/2016 BAIMASHERWIN Ot R22.41 LOCALIZED SWELLING, MASS AND LUMP, RIGHT 12/30/2016 BAIMASHERWIN Ot M79.661 PAIN IN RIGHT LOWER LEG 12/30/2016 BAIMA, SHERWIN ANDRADE Ot R22.41 LOCALIZED SWELLING, MASS AND LUMP, RIGHT 01/05/2017 SHERWIN UNDERWOOD Ot M79.661 PAIN IN RIGHT LOWER LEG 01/05/2017 BAIMASHERWIN Ot R22.41 LOCALIZED SWELLING, MASS AND LUMP, RIGHT 01/06/2017 PERCY RUBIO DO Ot E78.00 PURE HYPERCHOLESTEROLEMIA, UNSPECIFIED 01/06/2017 PERCY RUBIO DO Ot F17.210 NICOTINE DEPENDENCE, CIGARETTES, UNCOMPL 01/06/2017 PERCY RUBIO DO Ot I25.10 ATHSCL HEART DISEASE OF [place] CORONARY 01/06/2017 PERCY RUBIO DO Ot J44.9 CHRONIC OBSTRUCTIVE PULMONARY DISEASE, U 01/06/2017 PERCY RUBIO DO Ot M79.672 PAIN IN LEFT FOOT 01/06/2017 PERCY RUBIO DO Ot S93.402 A SPRAIN OF UNSPECIFIED LIGAMENT OF LEFT A 01/06/2017 PERCY RUBIO DO, Ot S93.602 A UNSPECIFIED SPRAIN OF LEFT FOOT, INITIAL 01/06/2017 PERCY RUBIO DO Ot W01.0XX A FALL SAME LEV FROM SLIP/TRIP W/O STRIKE 01/06/2017 PERCY RUBIO DO, Ot Z82.49 FAMILY HX OF ISCHEM HEART DIS AND OTH DI 01/06/2017 JOANNE FUNES PERCY Pooja Ot Z86.73 PRSNL HX OF TIA (TIA), AND CEREB INFRC W 01/06/2017 JOANNE DO PERCY K Ot Z90.710 ACQUIRED ABSENCE OF BOTH CERVIX AND UTER 01/06/2017 JOANNE DO PERCY K Ot Z90.89 ACQUIRED ABSENCE OF OTHER ORGANS 01/10/2017 JOANNE PERCY K Ot E78.00 PURE HYPERCHOLESTEROLEMIA, UNSPECIFIED 01/10/2017 PERCY RUBIO DO Ot F17.210 NICOTINE DEPENDENCE, CIGARETTES, UNCOMPL 01/10/2017 JOANNE DOPERCY Ot I25.10 ATHSCL HEART DISEASE OF [place] CORONARY 01/10/2017 PERCY RUBIO DO Ot J44.9 CHRONIC OBSTRUCTIVE PULMONARY DISEASE, U 01/10/2017 JOANNE PERCY FUNES Ot M79.672 PAIN IN LEFT FOOT 01/10/2017 PERCY RUBIO DO Ot S93.402 A SPRAIN OF UNSPECIFIED LIGAMENT OF LEFT A 01/10/2017 PERCY RUBIO DO Ot S93.602 A UNSPECIFIED SPRAIN OF LEFT FOOT, INITIAL 01/10/2017 JOANNE DOPERCY Ot W01.0XX A FALL SAME LEV FROM SLIP/TRIP W/O STRIKE 01/10/2017 PERCY RUBIO DO Ot Z82.49 FAMILY HX OF ISCHEM HEART DIS AND OTH DI 01/10/2017 JOANNE DO PERCY [place] Ot Z86.73 PRSNL HX OF TIA (TIA), AND CEREB INFRC W 01/10/2017 JOANNE FUNES PERCY [place] Ot Z90.710 ACQUIRED ABSENCE OF BOTH CERVIX AND UTER 01/10/2017 PERCY RUBIO DO Ot Z90.89 ACQUIRED ABSENCE OF OTHER ORGANS 01/23/2017 CHRISTY ORTIZ, HANSEL Pendleton Ot R10.13 EPIGASTRIC PAIN 01/23/2017 CHRISTY ORTIZ, HANSEL [place]leton Ot Z01.818 ENCOUNTER FOR OTHER PREPROCEDURAL EXAMIN 2017 DAY HUGHES Ot K8 7 DISORD OF GB, BILIARY TRAC AND PANCREAS 01/30/2017 CHRISTY ORTIZ, HANSEL [place] Ot E78.5 HYPERLIPIDEMIA, UNSPECIFIED 01/30/2017 CHRISTY ORTIZ, HANSEL Pendleton Ot F17.210 NICOTINE DEPENDENCE, CIGARETTES, UNCOMPL 01/30/2017 HANSEL HARRISON MD Ot I1 0 ESSENTIAL (PRIMARY) HYPERTENSION 01/30/2017 HANSEL HARRISON MD Ot K20.9 ESOPHAGITIS, UNSPECIFIED 01/30/2017 HANSEL HARRISON MD Ot K25.9 GASTRIC ULCER, UNSP ACUTE OR CHRONIC, 01/30/2017 HANSEL HARRISON MD Ot K26.9 DUODENAL ULCER, UNSP ACUTE OR CHRONIC 01/30/2017 HANSEL HARRISON MD Ot K44.9 DIAPHRAGMATIC HERNIA WITHOUT OBSTRUCTION 01/30/2017 HANSEL HARRISON MD Ot Z79.899 OTHER SENIOR CARE (CURRENT) DRUG THERAPY 01/30/2017 HANSEL HARRISON MD Ot Z86.73 PRSNL HX OF TIA (TIA), AND CEREB INFRC W 04/03/2017 ARTIE ORTIZ FACC, ALI FACP CCDS Ot E78.4 OTHER HYPERLIPIDEMIA 04/03/2017 ARTIE ORTIZ FACC, ALI FACP CCDS Ot I65.23 OCCLUSION AND STENOSIS OF BILATERAL [place] 04/03/2017 ARTIE ORTIZ FACC, ALI FACP CCDS Ot Z72.0 TOBACCO USE 04/03/2017 ARTIE ORTIZ FACC, ALI FACP CCDS Ot Z86.718 PERSONAL HISTORY OF OTHER VENOUS THROMBO 04/03/2017 ARTIE ORTIZ FACC, DONTAE FACP CCDS Ot Z86.73 PRSNL HX OF TIA (TIA), AND CEREB INFRC W 04/03/2017 ARTIE ORTIZ FACC, ALI FACP CCDS Ot Z87.19 PERSONAL HISTORY OF OTHER DISEASES OF TH 04/10/2017 ARTIE ORTIZ FACC, ALI FACP CCDS Ot [...] Z87.19 PERSONAL HISTORY OF OTHER DISEASES OF 04/25/2017 ARTIE ORTIZ FACC ALI FACP CCDS Ot E78.4 OTHER HYPERLIPIDEMIA 04/25/2017 ARTIE ORTIZ FACC, ALI FACP CCDS Ot I65.23 OCCLUSION AND STENOSIS OF [place]ILATERAL [place] 04/25/2017 ARTIE ORTIZ FACC, ALI FACP CCDS Ot Z72.0 TOBACCO USE 04/25/2017 ARTIE ORTIZ FACC, ALI FACP CCDS Ot Z86.718 PERSONAL HISTORY OF OTHER VENOUS THROMBO 04/25/2017 ARTIE ORTIZ FACC ALI FACP CCDS Ot Z86.73 PRSNL HX OF TIA (TIA), AND CEREB INFRC W 04/25/2017 ARTIE ORTIZ FACC, ALI FACP CCDS Ot Z87.19 PERSONAL HISTORY OF OTHER DISEASES OF 05/02/2017 ARTIE ORTIZ FACC ALI FACP CCDS Ot E78.4 OTHER HYPERLIPIDEMIA 05/02/2017 ARTIE ORTIZ FACC, ALI FACP CCDS Ot I65.23 OCCLUSION AND STENOSIS OF [place]ILATERAL [place] 05/02/2017 ARTIE ORTIZ FACC, ALI FACP CCDS Ot I73.9 PERIPHERAL VASCULAR DISEASE, UNSPECIFIED 05/02/2017 ARTIE ORTIZ FACC ALI FACP CCDS Ot Z72.0 TOBACCO USE 05/02/2017 ARTIE ORTIZ FACC, ALI FACP CCDS Ot Z86.718 PERSONAL HISTORY OF OTHER VENOUS THROMBO 05/02/2017 ARTIE ORTIZ FACC, ALI FACP CCDS Ot Z86.73 PRSNL HX OF TIA (TIA), AND CEREB INFRC W 05/02/2017 ARTIE ORTIZ FACC, ALI FACP CCDS Ot Z87.19 PERSONAL HISTORY OF OTHER DISEASES OF 05/15/2017 ARTIE ORTIZ FACC ALI FACP CCDS Ot E78.4 OTHER HYPERLIPIDEMIA 06/19/2017 ARTIE ORTIZ FACC, ALI FACP CCDS Ot E78.4 OTHER HYPERLIPIDEMIA 06/21/2017 SHERWIN UNDERWOOD CUSTOMER SERVICE REP Ot D50.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 06/26/2017 BELENSHERWIN MACK CUSTOMER SERVICE REP Ot D50.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 07/14/2017 YASMINESHERWIN CUSTOMER SERVICE REP Ot D50.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 12/22/2017 FLORENCIO HERNÁNDEZ DO Ot F17.210 NICOTINE DEPENDENCE, CIGARETTES, UNCOMPL 12/22/2017 FLORENCIO HERNÁNDEZ DO Ot J44. 9 CHRONIC OBSTRUCTIVE PULMONARY DISEASE, U 12/22/2017 FLORENCIO HERNÁNDEZ DO Ot J84. 9 INTERSTITIAL PULMONARY DISEASE, UNSPECIF 12/22/2017 FLORENCIO HERNÁNDEZ DO Ot Z79.899 OTHER SENIOR CARE (CURRENT) DRUG THERAPY 12/26/2017 FLORENCIO HERNÁNDEZ DO Ot F17.210 NICOTINE DEPENDENCE, CIGARETTES, UNCOMPL 12/26/2017 FLORENCIO HERNÁNDEZ DO Ot J44. 9 CHRONIC OBSTRUCTIVE PULMONARY DISEASE, U 12/26/2017 FLORENCIO HERNÁNDEZ DO Ot J84. 9 INTERSTITIAL PULMONARY DISEASE, UNSPECIF 12/26/2017 FLORENCIO HERNÁNDEZ DO Ot Z79.899 OTHER SENIOR CARE (CURRENT) DRUG THERAPY 12/27/2017 JOON CHAPIN APRN Ot J44.9 CHRONIC OBSTRUCTIVE PULMONARY DISEASE, U 12/27/2017 JOON CHAPIN APRN Ot R06.00 DYSPNEA, UNSPECIFIED 12/27/2017 JOON CHAPIN PHOTOVOLTAIC POWER SYSTEMS ENGINEER Ot R91.8 OTHER NONSPECIFIC ABNORMAL FINDING OF [place] 12/27/2017 JOON CHAPIN APRN Ot Z72.0 TOBACCO USE 01/05/2018 FLORENCIO HERNÁNDEZ DO Ot J44. 9 CHRONIC OBSTRUCTIVE PULMONARY DISEASE, U 01/05/2018 FLORENCIO HERNÁNDEZ DO Ot R91. 8 OTHER NONSPECIFIC ABNORMAL FINDING OF [place] 01/05/2018 FLORENCIO HERNÁNDEZ DO Ot R94. 8 ABNORMAL RESULTS OF FUNCTION STUDIES OF 01/05/2018 FLORENCIO HERNÁNDEZ DO Ot Z72. 0 TOBACCO USE 01/22/2018 JOON CHAPIN APRN Ot J44.9 CHRONIC OBSTRUCTIVE PULMONARY DISEASE, U 01/22/2018 JOON CHAPIN PHOTOVOLTAIC POWER SYSTEMS ENGINEER Ot R06.00 DYSPNEA, UNSPECIFIED 01/22/2018 JOON CHAPIN APRN Ot R91.8 OTHER NONSPECIFIC ABNORMAL FINDING OF [place] 01/22/2018 TAVARES JOON Angie ADAMS Ot Z72.0 TOBACCO USE 02/12/2018 DAY HUGHES CUSTOMER SERVICE REP Ot E04.2 NONTOXIC MULTINODULAR GOITER 03/06/2018 DAY HUGHES CUSTOMER SERVICE REP Ot E04.2 NONTOXIC MULTINODULAR GOITER 03/13/2018 ARTIE ORTIZ FAC, ALI FACP CCDS Ot E78.5 HYPERLIPIDEMIA, UNSPECIFIED 03/13/2018 ARTIE ORTIZ FAC, ALI FACP CCDS Ot I10 ESSENTIAL (PRIMARY) HYPERTENSION 03/13/2018 ARTIE ORTIZ FAC, ALI FACP CCDS Ot I25.10 ATHSCL HEART DISEASE OF [place] CORONARY 03/13/2018 ARTIE ORTIZ FAC, ALI FACP CCDS Ot I77.89 OTHER SPECIFIED DISORDERS OF ARTERIES AN 03/13/2018 ARTIE ORTIZ FAC, ALI FACP CCDS Ot Z72.0 TOBACCO USE 03/21/2018 HANSEL HARRISON MD Ot Z01.818 ENCOUNTER FOR OTHER PREPROCEDURAL EXAMIN 03/22/2018 HANSEL HARRISON MD Ot Z01.818 ENCOUNTER FOR OTHER PREPROCEDURAL EXAMIN 03/23/2018 HANSEL HARRISON MD Ot Z01.818 ENCOUNTER FOR OTHER PREPROCEDURAL EXAMIN 03/24/2018 HANSEL HARRISON MD Ot C7 3 MALIGNANT NEOPLASM OF THYROID GLAND 03/24/2018 HANSEL HARRISON MD Ot E78.00 PURE HYPERCHOLESTEROLEMIA, UNSPECIFIED 03/24/2018 HANSEL HARRISON MD Ot F17.210 NICOTINE DEPENDENCE, CIGARETTES, UNCOMPL 03/24/2018 HANSEL HARRISNO MD Ot I1 0 ESSENTIAL (PRIMARY) HYPERTENSION 03/24/2018 HANSEL HARRISON MD Ot I25.10 ATHSCL HEART DISEASE OF [place] CORONARY 03/24/2018 HANSEL HARRISON MD Ot I65.22 OCCLUSION AND STENOSIS OF LEFT CAROTID A 03/24/2018 HANSEL HARRISON MD Ot I73.9 PERIPHERAL VASCULAR DISEASE, UNSPECIFIED 03/24/2018 HANSEL HARRISON MD Ot K59.09 OTHER CONSTIPATION 03/24/2018 HANSEL HARRISON MD Ot Z79.82 TRAVEL MONEY ADVISOR (CURRENT) USE OF ASPIRIN 03/24/2018 HANSEL HARRISON MD Ot Z79.899 OTHER TRAVEL MONEY ADVISOR (CURRENT) DRUG THERAPY 03/24/2018 HANSEL HARRISON MD Ot Z86.73 PRSNL HX OF TIA (TIA), AND CEREB INFRC W 03/28/2018 HANSEL HARRISON MD, Ot C7 3 MALIGNANT NEOPLASM OF THYROID GLAND 03/28/2018 HANSEL HARRISON MD, Ot E78.00 PURE HYPERCHOLESTEROLEMIA, UNSPECIFIED 03/28/2018 HANSEL HARRISON MD, Ot F17.210 NICOTINE DEPENDENCE, CIGARETTES, UNCOMPL 03/28/2018 HANSEL HARRISON MD Ot I1 0 ESSENTIAL (PRIMARY) HYPERTENSION 03/28/2018 HANSEL HARRISON MD Ot I25.10 ATHSCL HEART DISEASE OF [place] CORONARY 03/28/2018 HANSEL HARRISON MD Ot I65.22 OCCLUSION AND STENOSIS OF LEFT CAROTID A 03/28/2018 HANSEL HARRISON MD Ot I73.9 PERIPHERAL VASCULAR DISEASE, UNSPECIFIED 03/28/2018 HANSEL HARRISON MD Ot K59.09 OTHER CONSTIPATION 03/28/2018 HANSEL HARRISON MD Ot Z79.82 SENIOR CARE (CURRENT) USE OF ASPIRIN 03/28/2018 HANSEL HARRISON MD Ot Z79.899 OTHER SENIOR CARE (CURRENT) DRUG THERAPY 03/28/2018 HANSEL HARRISON MD Ot Z86.73 PRSNL HX OF TIA (TIA), AND CEREB INFRC W 03/29/2018 ARTIE ORTIZ FAC, ALI FACP CCDS Ot E78.5 HYPERLIPIDEMIA, UNSPECIFIED 03/29/2018 ARTIE ORTIZ FACC, ALI FACP CCDS Ot I10 ESSENTIAL (PRIMARY) HYPERTENSION 03/29/2018 ARTIE ORTIZ FACC, ALI FACP CCDS Ot I25.10 ATHSCL HEART DISEASE OF [place] CORONARY 03/29/2018 ARTIE ORTIZ FACC, ALI FACP CCDS Ot I77.89 OTHER SPECIFIED DISORDERS OF ARTERIES AN 03/29/2018 ARTIE ORTIZ FACC, ALI FACP CCDS Ot Z72.0 TOBACCO USE 03/30/2018 HANSEL HARRISON MD, Ot C7 3 MALIGNANT NEOPLASM OF THYROID GLAND 03/30/2018 HANSEL HARRISON MD Ot E78.00 PURE HYPERCHOLESTEROLEMIA, UNSPECIFIED 03/30/2018 HANSEL HARRISON MD Ot F17.210 NICOTINE DEPENDENCE, CIGARETTES, UNCOMPL 03/30/2018 HANSEL HRARISON MD Ot I1 0 ESSENTIAL (PRIMARY) HYPERTENSION 03/30/2018 HANSEL HARRISON MD Ot I25.10 ATHSCL HEART DISEASE OF [place] CORONARY 03/30/2018 HANSEL HARRISON MD Ot I65.22 OCCLUSION AND STENOSIS OF LEFT CAROTID A 03/30/2018 HANSEL HARRISON MD, Ot I73.9 PERIPHERAL VASCULAR DISEASE, UNSPECIFIED 03/30/2018 HANSEL HARRISON MD Ot K59.09 OTHER CONSTIPATION 03/30/2018 HANSEL HARRISON MD, Ot Z79.82 SENIOR CARE (CURRENT) USE OF ASPIRIN 03/30/2018 HANSEL HARRISON MD, Ot Z79.899 OTHER SENIOR CARE (CURRENT) DRUG THERAPY 03/30/2018 HANSEL HARRISON MD, Ot Z86.73 PRSNL HX OF TIA (TIA), AND CEREB INFRC W 04/01/2018 HANSEL HARRISON MD, Ot C7 3 MALIGNANT NEOPLASM OF THYROID GLAND 04/01/2018 HANSEL HARRISON MD Ot E78.00 PURE HYPERCHOLESTEROLEMIA, UNSPECIFIED 04/01/2018 HANSEL HARRISON MD Ot F17.210 NICOTINE DEPENDENCE, CIGARETTES, UNCOMPL 04/01/2018 HANSEL HARRISON MD Ot I1 0 ESSENTIAL (PRIMARY) HYPERTENSION 04/01/2018 HANSEL HARRISON MD, Ot I25.10 ATHSCL HEART DISEASE OF [place] CORONARY 04/01/2018 HANSEL HRARISON MD, Ot I65.22 OCCLUSION AND STENOSIS OF LEFT CAROTID A 04/01/2018 HANSEL HARRISON MD Ot I73.9 PERIPHERAL VASCULAR DISEASE, UNSPECIFIED 04/01/2018 HANSEL HARRISON MD Ot K59.09 OTHER CONSTIPATION 04/01/2018 HANSEL HARRISON MD, Ot Z79.82 TRAVEL MONEY ADVISOR (CURRENT) USE OF ASPIRIN 04/01/2018 HANSEL HARRISON MD Ot Z79.899 OTHER SENIOR CARE (CURRENT) DRUG THERAPY 04/01/2018 HANSEL HARRISON MD Ot Z86.73 PRSNL HX OF TIA (TIA), AND CEREB INFRC W 04/03/2018 HANSEL HARRISON MD, Ot C7 3 MALIGNANT NEOPLASM OF THYROID GLAND 04/03/2018 HANSEL HARRISON MD Ot E78.00 PURE HYPERCHOLESTEROLEMIA, UNSPECIFIED 04/03/2018 HANSEL HARRISON MD Ot F17.210 NICOTINE DEPENDENCE, CIGARETTES, UNCOMPL 04/03/2018 HANSEL HARRISON MD Ot I1 0 ESSENTIAL (PRIMARY) HYPERTENSION 04/03/2018 HANSEL HARRISON MD Ot I25.10 ATHSCL HEART DISEASE OF [place] CORONARY 04/03/2018 HANSEL HARRISON MD Ot I65.22 OCCLUSION AND STENOSIS OF LEFT CAROTID A 04/03/2018 HANSEL HARRISON MD Ot I73.9 PERIPHERAL VASCULAR DISEASE, UNSPECIFIED 04/03/2018 HANSEL HARRISON MD Ot K59.09 OTHER CONSTIPATION 04/03/2018 HANSEL HARRISON MD Ot Z79.82 TRAVEL MONEY ADVISOR (CURRENT) USE OF ASPIRIN 04/03/2018 HANSEL HARRISON MD Ot Z79.899 OTHER TRAVEL MONEY ADVISOR (CURRENT) DRUG THERAPY 04/03/2018 HANSEL HARRISON MD Ot Z86.73 PRSNL HX OF TIA (TIA), AND CEREB INFRC W 04/26/2018 CAREN SERNA MD Ot C73 MALIGNANT NEOPLASM OF THYROID GLAND 05/09/2018 CAREN SERNA MD Ot C73 MALIGNANT NEOPLASM OF THYROID GLAND 05/16/2018 CAREN SERNA MD Ot C73 MALIGNANT NEOPLASM OF THYROID GLAND 05/18/2018 CAREN SERNA MD, Ot C73 MALIGNANT NEOPLASM OF THYROID GLAND 05/18/2018 CAREN SERNA MD Ot F17.2 10 NICOTINE DEPENDENCE, CIGARETTES, UNCOMPL 05/18/2018 CAREN SERNA MD Ot I10 ESSENTIAL (PRIMARY) HYPERTENSION 05/18/2018 CAREN SERNA MD Ot I25.1 0 ATHSCL HEART DISEASE OF [place] CORONARY 05/18/2018 CAREN SERNA MD Ot Z79.8 2 SENIOR CARE (CURRENT) USE OF ASPIRIN 05/18/2018 CAREN SERNA MD Ot Z79.8 99 OTHER TRAVEL MONEY ADVISOR (CURRENT) DRUG THERAPY 05/18/2018 CAREN SERNA MD Ot Z86.7 3 PRSNL HX OF TIA (TIA), AND CEREB INFRC W 05/23/2018 CAREN SERNA MD Ot C73 MALIGNANT NEOPLASM OF THYROID GLAND 06/28/2018 JOON CHAPIN APRN Ot J44.9 CHRONIC OBSTRUCTIVE PULMONARY DISEASE, U 06/28/2018 JOON CHAPIN APRN Ot R91.8 OTHER NONSPECIFIC ABNORMAL FINDING OF [place] 06/28/2018 JOON CHAPIN APRN Ot S22.000A WEDGE COMPRESSION FRACTURE OF [place]SP [place] 06/28/2018 JOON CHAPIN APRN Ot Z72.0 TOBACCO USE 06/28/2018 JOON CHAPIN APRN Ot Z85.850 PERSONAL HISTORY OF MALIGNANT NEOPLASM O 06/28/2018 JOON CHAPIN APRN Ot Z98.890 OTHER SPECIFIED POSTPROCEDURAL STATES 06/29/2018 YASMINE SHERWIN Aliyah [facility] Ot I65.23 OCCLUSION AND STENOSIS OF BILATERAL [place] 07/02/2018 CAREN SERNA MD Ot C73 MALIGNANT NEOPLASM OF THYROID GLAND 07/02/2018 CAREN SERNA MD Ot F17.2 10 NICOTINE DEPENDENCE, CIGARETTES, UNCOMPL 07/02/2018 CAREN SERNA MD Ot I10 ESSENTIAL (PRIMARY) HYPERTENSION 07/02/2018 CAREN SERNA MD Ot I25.1 0 ATHSCL HEART DISEASE OF [place] CORONARY 07/02/2018 CAREN SERNA MD Ot Z79.8 2 TRAVEL MONEY ADVISOR (CURRENT) USE OF ASPIRIN 07/02/2018 CAREN SERNA MD Ot Z79.8 99 OTHER SENIOR CARE (CURRENT) DRUG THERAPY 07/02/2018 CAREN SERNA MD Ot Z86.7 3 PRSNL HX OF TIA (TIA), AND CEREB INFRC W 07/03/2018 CAREN SERNA MD Ot C73 MALIGNANT NEOPLASM OF THYROID GLAND 07/03/2018 CAREN SERAN MD Ot F17.2 10 NICOTINE DEPENDENCE, CIGARETTES, UNCOMPL 07/03/2018 CAREN SERNA MD Ot I10 ESSENTIAL (PRIMARY) HYPERTENSION 07/03/2018 CAREN SERNA MD Ot I25.1 0 ATHSCL HEART DISEASE OF [place] CORONARY 07/03/2018 CAREN SERNA MD Ot Z79.8 2 SENIOR CARE (CURRENT) USE OF ASPIRIN 07/03/2018 CAREN SERNA MD Ot Z79.8 99 OTHER TRAVEL MONEY ADVISOR (CURRENT) DRUG THERAPY 07/03/2018 CAREN SERNA MD Ot Z86.7 3 PRSNL HX OF TIA (TIA), AND CEREB INFRC W 07/23/2018 JOON CHAPIN APRN Ot J44.9 CHRONIC OBSTRUCTIVE PULMONARY DISEASE, U 07/23/2018 JOON CHAPIN APRN Ot R91.8 OTHER NONSPECIFIC ABNORMAL FINDING OF [place] 07/23/2018 JOON CHAPIN PHOTOVOLTAIC POWER SYSTEMS ENGINEER Ot S22.000A WEDGE COMPRESSION FRACTURE OF [place]SP [place] 07/23/2018 JOON CHAPIN PHOTOVOLTAIC POWER SYSTEMS ENGINEER Ot Z72.0 TOBACCO USE 07/23/2018 JOON CHAPIN PHOTOVOLTAIC POWER SYSTEMS ENGINEER Ot Z85.850 PERSONAL HISTORY OF MALIGNANT NEOPLASM O 07/23/2018 JOON CHAPIN PHOTOVOLTAIC POWER SYSTEMS ENGINEER Ot Z98.890 OTHER SPECIFIED POSTPROCEDURAL STATES 01/11/2019 ALYSSA HUGHESA CUSTOMER SERVICE REP Ot 272.0 PURE HYPERCHOLESTEROLEM 01/11/2019 MAGNUS HUGHESNDA CUSTOMER SERVICE REP Ot 333.1 TREMOR NEC 01/11/2019 AMGNUS HUGHESNDA CUSTOMER SERVICE REP Ot 733.00 OSTEOPOROSIS NOS 01/11/2019 MAGNUS HUGHESNDA CUSTOMER SERVICE REP Ot V76.12 OTH SCREEN MAMMO-MALIGN NEOPLASM OF [place] 01/11/2019 MAGNUS HUGHESNDA CUSTOMER SERVICE REP Ot 401.9 HYPERTENSION NOS 01/11/2019 ALYSSA HUGHESA CUSTOMER SERVICE REP Ot 733.00 OSTEOPOROSIS NOS 01/11/2019 BAIMA, SHERWIN L CUSTOMER SERVICE REP Ot 272.4 HYPERLIPIDEMIA NEC/NOS 01/11/2019 BAIMA, SHERWIN L CUSTOMER SERVICE REP Ot 305.1 TOBACCO USE DISORDER 01/11/2019 BAIMA SHEWRIN L CUSTOMER SERVICE REP Ot 338.19 OTHER ACUTE PAIN 01/11/2019 BAIFREDERICK SHERWIN L CUSTOMER SERVICE REP Ot 401.9 HYPERTENSION NOS 01/11/2019 BAIMA SHERWIN L CUSTOMER SERVICE REP Ot 442.9 ANEURYSM NOS 01/11/2019 ARTIE ORTIZ FAC, ALI FACP CCDS Ot 272.4 HYPERLIPIDEMIA NEC/NOS 01/11/2019 ARTIE ORTIZ FACC, ALI FACP CCDS Ot 433.10 CAROTID ARTERY OCCLUSION W O CEREBRAL IN 01/11/2019 ARTIE ORTIZ FAC, ALI FACP CCDS Ot 433.30 MULT BILTRAL ARTERY OCCLUSION WO CEREBRA 01/11/2019 NICK BETTS CUSTOMER SERVICE REP Ot G89.29 OTHER CHRONIC PAIN 01/11/2019 NICK BETTS CUSTOMER SERVICE REP Ot M54.41 LUMBAGO WITH SCIATICA, RIGHT SIDE 01/11/2019 KENYETTA REA DO Ot K62.5 HEMORRHAGE OF ANUS AND RECTUM 01/11/2019 YASMINE SHERWIN L CUSTOMER SERVICE REP Ot I82.441 ACUTE EMBOLISM AND THROMBOSIS OF RIGHT T 01/11/2019 SHERWIN UNDERWOOD CUSTOMER SERVICE REP Ot M79.604 PAIN IN RIGHT LEG 01/11/2019 SHERWIN UNDERWOOD CUSTOMER SERVICE REP Ot R22.41 LOCALIZED SWELLING, MASS AND LUMP, RIGHT 01/11/2019 SHERWIN UNDERWOOD CUSTOMER SERVICE REP Ot M79.661 PAIN IN RIGHT LOWER LEG 01/11/2019 SHERWIN UNDERWOOD CUSTOMER SERVICE REP Ot R22.41 LOCALIZED SWELLING, MASS AND LUMP, RIGHT 01/11/2019 DAY HUGHES CUSTOMER SERVICE REP Ot K8 7 DISORD OF GB, BILIARY TRAC AND PANCREAS 01/11/2019 ARTIE ORTIZ FACC, ALI FACP CCDS Ot E78.4 OTHER HYPERLIPIDEMIA 01/11/2019 ARTIE ORTIZ FACC, ALI FACP CCDS Ot I65.23 OCCLUSION AND STENOSIS OF BILATERAL [place] 01/11/2019 ARTIE ORTIZ FACC, ALI FACP CCDS Ot I73.9 PERIPHERAL VASCULAR DISEASE, UNSPECIFIED 01/11/2019 ARTIE ORTIZ FACC, ALI FACP CCDS Ot Z72.0 TOBACCO USE 01/11/2019 ARTIE ORTIZ FACC, ALI FACP CCDS Ot Z86.718 PERSONAL HISTORY OF OTHER VENOUS THROMBO 01/11/2019 ARTIE ORTIZ FACC, ALI FACP CCDS Ot Z86.73 PRSNL HX OF TIA (TIA), AND CEREB INFRC W 01/11/2019 ARTIE ORTIZ FACC, ALI FACP CCDS Ot Z87.19 PERSONAL HISTORY OF OTHER DISEASES OF 01/11/2019 DONTAE ALVA MD, FACC FACP CCDS Ot E78.4 OTHER HYPERLIPIDEMIA 01/11/2019 ARTIE ORTIZ FACC, ALI FACP CCDS Ot I65.23 OCCLUSION AND STENOSIS OF [place]ILATERAL [place] 01/11/2019 ARTIE ORTIZ FACC, ALI FACP CCDS Ot Z72.0 TOBACCO USE 01/11/2019 ARTIE ORTIZ FACC, ALI FACP CCDS Ot Z86.718 PERSONAL HISTORY OF OTHER VENOUS THROMBO 01/11/2019 ARTIE ORTIZ FACC, ALI FACP CCDS Ot Z86.73 PRSNL HX OF TIA (TIA), AND CEREB INFRC W 01/11/2019 ARTIE ORTIZ FACC, ALI FACP CCDS Ot Z87.19 PERSONAL HISTORY OF OTHER DISEASES OF 01/11/2019 DONTAE ALVA MD, FACC FACP CCDS Ot E78.4 OTHER HYPERLIPIDEMIA 01/11/2019 BELENSHERWIN MACK CUSTOMER SERVICE REP Ot D50.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 01/11/2019 FLORENCIO HERNÁNDEZ DO Ot J44. 9 CHRONIC OBSTRUCTIVE PULMONARY DISEASE, U 01/11/2019 FLORENCIO HERNÁNDEZ DO Ot R91. 8 OTHER NONSPECIFIC ABNORMAL FINDING OF [place] 01/11/2019 FLORENCIO HERNÁNDEZ DO Ot R94. 8 ABNORMAL RESULTS OF FUNCTION STUDIES OF 01/11/2019 FLORENCIO HERNÁNDEZ DO Ot Z72. 0 TOBACCO USE 01/11/2019 JOON CHAPIN PHOTOVOLTAIC POWER SYSTEMS ENGINEER Ot J44.9 CHRONIC OBSTRUCTIVE PULMONARY DISEASE, U 01/11/2019 JOON CHAPIN PHOTOVOLTAIC POWER SYSTEMS ENGINEER Ot R06.00 DYSPNEA, UNSPECIFIED 01/11/2019 JOON CHAPIN PHOTOVOLTAIC POWER SYSTEMS ENGINEER Ot R91.8 OTHER NONSPECIFIC ABNORMAL FINDING OF [place] 01/11/2019 JOON CHAPIN PHOTOVOLTAIC POWER SYSTEMS ENGINEER Ot Z72.0 TOBACCO USE 01/11/2019 JOON CHAPIN PHOTOVOLTAIC POWER SYSTEMS ENGINEER Ot J44.9 CHRONIC OBSTRUCTIVE PULMONARY DISEASE, U 01/11/2019 JOON CHAPIN PHOTOVOLTAIC POWER SYSTEMS ENGINEER Ot R91.8 OTHER NONSPECIFIC ABNORMAL FINDING OF [place] 01/11/2019 JOON CHAPIN PHOTOVOLTAIC POWER SYSTEMS ENGINEER Ot S22.000A WEDGE COMPRESSION FRACTURE OF [place]SP [place] 01/11/2019 JOON CHAPIN PHOTOVOLTAIC POWER SYSTEMS ENGINEER Ot Z72.0 TOBACCO USE 01/11/2019 JOON CHAPIN PHOTOVOLTAIC POWER SYSTEMS ENGINEER Ot Z85.850 PERSONAL HISTORY OF MALIGNANT NEOPLASM O 01/11/2019 JOON CHAPIN PHOTOVOLTAIC POWER SYSTEMS ENGINEER Ot Z98.890 OTHER SPECIFIED POSTPROCEDURAL STATES 01/11/2019 DAY HUGHES CUSTOMER SERVICE REP Ot E04.2 NONTOXIC MULTINODULAR GOITER 01/11/2019 ARTIE ORTIZ FACC, DONTAE FACP CCDS Ot E78.5 HYPERLIPIDEMIA, UNSPECIFIED 01/11/2019 ARTIE ORTIZ FACC, ALI FACP CCDS Ot I10 ESSENTIAL (PRIMARY) HYPERTENSION 01/11/2019 ARTIE ORTIZ FACC, ALI FACP CCDS Ot I25.10 ATHSCL HEART DISEASE OF [place] CORONARY 01/11/2019 ARTIE ORTIZ FACC, ALI FACP CCDS Ot I77.89 OTHER SPECIFIED DISORDERS OF ARTERIES AN 01/11/2019 ARTIE ORTIZ FACC, DONTAE FACP CCDS Ot Z72.0 TOBACCO USE 01/11/2019 CAREN SERNA MD Ot C73 MALIGNANT NEOPLASM OF THYROID GLAND 01/11/2019 CAREN SERNA MD Ot C73 MALIGNANT NEOPLASM OF THYROID GLAND 01/11/2019 BELENFREDERICK SHERWIN Aliyah CUSTOMER SERVICE REP Ot I65.23 OCCLUSION AND STENOSIS OF BILATERAL [place] 01/11/2019 CAREN SERNA MD Ot C73 MALIGNANT NEOPLASM OF THYROID GLAND 01/11/2019 CAREN SERNA MD Ot F17.2 10 NICOTINE DEPENDENCE, CIGARETTES, UNCOMPL 01/11/2019 CAREN SERNA MD Ot I10 ESSENTIAL (PRIMARY) HYPERTENSION 01/11/2019 CAREN SERNA MD Ot I25.1 0 ATHSCL HEART DISEASE OF [place] CORONARY 01/11/2019 CAREN SERNA MD Ot Z79.8 2 SENIOR CARE (CURRENT) USE OF ASPIRIN 01/11/2019 CAREN SERNA MD Ot Z79.8 99 OTHER SENIOR CARE (CURRENT) DRUG THERAPY 01/11/2019 CAREN SERNA MD Ot Z86.7 3 PRSNL HX OF TIA (TIA), AND CEREB INFRC W 01/14/2019 JOON CHAPIN APRN Ot I70.0 ATHEROSCLEROSIS OF [place] 01/14/2019 JOON CHAPIN APRN Ot J44.9 CHRONIC OBSTRUCTIVE PULMONARY DISEASE, U 01/14/2019 JOON CHAPIN APRN Ot M43.8X4 OTHER SPECIFIED DEFORMING DORSOPATHIES, 01/14/2019 JOON CHAPIN APRN Ot N28.89 OTHER SPECIFIED DISORDERS OF KIDNEY AND 01/14/2019 JOON CHAPIN APRN Ot R91.8 OTHER NONSPECIFIC ABNORMAL FINDING OF [place] 01/14/2019 JOON CHAPIN PHOTOVOLTAIC POWER SYSTEMS ENGINEER Ot Z72.0 TOBACCO USE 01/14/2019 JOON CHAPIN APRN Ot Z98.890 OTHER SPECIFIED POSTPROCEDURAL STATES 01/17/2019 JOON CHAPIN APRN Ot I70.0 ATHEROSCLEROSIS OF [place] 01/17/2019 JOON CHAPIN PHOTOVOLTAIC POWER SYSTEMS ENGINEER Ot J44.9 CHRONIC OBSTRUCTIVE PULMONARY DISEASE, U 01/17/2019 JOON CHAPIN PHOTOVOLTAIC POWER SYSTEMS ENGINEER Ot M43.8X4 OTHER SPECIFIED DEFORMING DORSOPATHIES, 01/17/2019 JOON CHAPIN PHOTOVOLTAIC POWER SYSTEMS ENGINEER Ot N28.89 OTHER SPECIFIED DISORDERS OF KIDNEY AND 01/17/2019 BERNICE CHAPININE Angie PHOTOVOLTAIC POWER SYSTEMS ENGINEER Ot R91.8 OTHER NONSPECIFIC ABNORMAL FINDING OF [place] 01/17/2019 BERNICE CHAPININE Angie PHOTOVOLTAIC POWER SYSTEMS ENGINEER Ot Z72.0 TOBACCO USE 01/17/2019 TAVARES JOON E PHOTOVOLTAIC POWER SYSTEMS ENGINEER Ot Z98.890 OTHER SPECIFIED POSTPROCEDURAL STATES 01/31/2019 BERNICE CHAPININE Angie PHOTOVOLTAIC POWER SYSTEMS ENGINEER Ot I70.0 ATHEROSCLEROSIS OF [place] 01/31/2019 BERNICE CHAPININE E PHOTOVOLTAIC POWER SYSTEMS ENGINEER Ot J44.9 CHRONIC OBSTRUCTIVE PULMONARY DISEASE, U 01/31/2019 BERNICE CHAPININE E PHOTOVOLTAIC POWER SYSTEMS ENGINEER Ot M43.8X4 OTHER SPECIFIED DEFORMING DORSOPATHIES, 01/31/2019 BERNICE CHAPININE E PHOTOVOLTAIC POWER SYSTEMS ENGINEER Ot N28.89 OTHER SPECIFIED DISORDERS OF KIDNEY AND 01/31/2019 BERNICE CHAPININE Angie PHOTOVOLTAIC POWER SYSTEMS ENGINEER Ot R91.8 OTHER NONSPECIFIC ABNORMAL FINDING OF [place] 01/31/2019 JOON CHAPIN PHOTOVOLTAIC POWER SYSTEMS ENGINEER Ot Z72.0 TOBACCO USE 01/31/2019 BERNICE CHAPININE Angie PHOTOVOLTAIC POWER SYSTEMS ENGINEER Ot Z98.890 OTHER SPECIFIED POSTPROCEDURAL STATES 02/11/2019 BERNICE CHAPININE Angie PHOTOVOLTAIC POWER SYSTEMS ENGINEER Ot R79.1 ABNORMAL COAGULATION PROFILE 02/11/2019 JOON CHAPIN PHOTOVOLTAIC POWER SYSTEMS ENGINEER Ot R79.1 ABNORMAL COAGULATION PROFILE 02/11/2019 JOON CHAPIN PHOTOVOLTAIC POWER SYSTEMS ENGINEER Ot R06.00 DYSPNEA, UNSPECIFIED 02/11/2019 BERNICE CHAPININE Angie PHOTOVOLTAIC POWER SYSTEMS ENGINEER Ot R91.8 OTHER NONSPECIFIC ABNORMAL FINDING OF [place] 02/11/2019 JOON CHAPIN PHOTOVOLTAIC POWER SYSTEMS ENGINEER Ot R94.2 ABNORMAL RESULTS OF PULMONARY FUNCTION S 02/11/2019 JOON CHAPIN PHOTOVOLTAIC POWER SYSTEMS ENGINEER Ot R79.1 ABNORMAL COAGULATION PROFILE 02/13/2019 BERNICE CHAPININE Angie PHOTOVOLTAIC POWER SYSTEMS ENGINEER Ot R06.00 DYSPNEA, UNSPECIFIED 02/13/2019 TAVARESBERNICE REIDINE Angie PHOTOVOLTAIC POWER SYSTEMS ENGINEER Ot R91.8 OTHER NONSPECIFIC ABNORMAL FINDING OF [place] 02/13/2019 BERNICE CHAPININE Angie PHOTOVOLTAIC POWER SYSTEMS ENGINEER Ot R94.2 ABNORMAL RESULTS OF PULMONARY FUNCTION S 02/19/2019 JOON CHAPIN PHOTOVOLTAIC POWER SYSTEMS ENGINEER Ot R06.00 DYSPNEA, UNSPECIFIED 02/19/2019 BERNICE CHAPININE Angie PHOTOVOLTAIC POWER SYSTEMS ENGINEER Ot R91.8 OTHER NONSPECIFIC ABNORMAL FINDING OF [place] 02/19/2019 JOON CHAPIN APRN Ot R94.2 ABNORMAL RESULTS OF PULMONARY FUNCTION S Procedures Code Description [place] [address] ROUT INE VENIPUNCTURE 02/22/2012 82568 CBC 02/22/2012 27594 LIPI D PANEL 02/22/2012 64229 CMP 02/22/2012 [id number] GF R CALC (RESULT ONLY) 02/22/2012 22938 CRP HS (CARDIO) 02/23/2012 74202 T4 02/23/2012 81178 TSH 02/23/2012 Orthopedi Brown Cantu 03/19/2012 Orthopedi Humberto Ford 04/14/2012 22868 ROUT INE VENIPUNCTURE 07/27/2012 25765 CMP 07/27/2012 16107 LIPI D PANEL 07/27/2012 [id number] GF R CALC (RESULT ONLY) 07/27/2012 29472 NUCL EAR STRESS TESTING 09/10/2012 48923 OXIMETRY 09/10/2012 42165 ROUT INE VENIPUNCTURE 11/14/2012 09943 LIVE R PANEL (LFT) 11/14/2012 57461 ROUT INE VENIPUNCTURE 12/25/2012 89656 LIVE R PANEL (LFT) 12/25/2012 97969 ROUT INE VENIPUNCTURE 01/29/2013 76665 LIVE R PANEL (LFT) 01/29/[address] A BDOMEN W/ CONTRAST 02/01/2013 17401 LESI ON DESTRUCTION 1-14 (BENIGN) 02/11/2013 18085 PULM ONARY FUNCTION TEST (IN- HOUSE) 02/11/2013 53716 US R ENAL ULTRASOUND, COMP 02/13/2013 Cardiolog Dontae Alva 02/27/2013 71347 OXIMETRY 02/27/2013 27428 PULM ONARY FUNCTION TEST (IN- HOUSE) 03/01/2013 96148 RESP IRATORY FLOW VOLUME LOOP 03/01/2013 G0437 TOBA RECREATION PROGRAMMER-USE PLACEMENT COORDINATOR>10MIN 03/01/2013 23002 ROUT INE VENIPUNCTURE 04/26/2013 [id number] GF R CALC (RESULT ONLY) 04/26/2013 19323 CMP 04/26/2013 29426 LIPI D PANEL 04/26/2013 75419 MAMM OGRAM, SCREENING 08/26/2013 16635 ROUT INE VENIPUNCTURE 08/28/2013 07083 US C AROTID DOPPLER 08/28/2013 93936 OXIMETRY 08/28/2013 [id number] GF R CALC (RESULT ONLY) 08/28/2013 15454 CMP 08/28/2013 66058 LIPI D PANEL 08/28/2013 81216 WART DESTRUCT 1-14 (CRYO) 03/12/2014 50946 ROUT INE VENIPUNCTURE 03/28/20143729274 GF R CALC (RESULT ONLY) 03/28/2014 92458 CMP 03/28/2014 11080 LIPI D PANEL 03/28/2014 03297 BONE DENSITY, DEXA 06/10/2014 36913 US C AROTID DOPPLER 06/10/2014 70340 OXIMETRY 06/10/2014 Results Test Result Range Hepatitis Panel (4) - 03/17/16 09:07 HBsAg Screen Negative Negative Hep A Ab, IgM Negative Negative Hep B Core Ab, IgM Negative Negative Hep C Virus Ab <0.1 s/co ratio 0.0-0.9 Complete blood count (CBC) with automate d white blood cell (WBC) differential - 06/19/16 14:25 Blood leukocytes automated count (number/volume) 13.4 10*3/uL 4.3-11.0 Blood erythrocytes automated count (number/volume) 4.92 10*6/uL 4.35-5.85 Venous blood hemoglobin measurement (mass/volume) 16.1 g/dL 11.5-16.0 Blood hematocrit (volume fraction) 48 % 35-52 Automated erythrocyte mean corpuscular volume 97 [ foz_us] 80-99 Automated erythrocyte mean corpuscular h emoglobin (mass per erythrocyte) 33 pg 25-34 Automated erythrocyte mean corpuscular h emoglobin concentration measurement (mass/volume) 34 g/dL 32-36 Automated erythrocyte distribution width ratio 14. 3 % 10.0- 14.5 Automated blood platelet count (count/volume) 237 10*3/uL [...] 10*3 1.0-4.0 Blood monocytes automated count (number/volume) 1. 3 10*3 0.0-1.0 Automated eosinophil count 0.2 10*3/uL 0 .0-0.3 Automated blood basophil count (count/volume) 0.1 10*3/uL 0.0-0.1 Comprehensive metabolic panel - 06/19/16 14:25 Serum or plasma sodium measurement (moles/volume) 138 mmol/L 135-145 Serum or plasma potassium measurement (moles/volume) 4.3 mmol/L 3.6-5.0 Serum or plasma chloride measurement (moles/volume) 104 mmol/L 98-107 Carbon dioxide 23 mmol/L 21-32 Serum or plasma anion gap determination (moles/volume) 11 mmol/L 5-14 Serum or plasma urea nitrogen measurement (mass/volume ) 31 mg/dL 7-18 Serum or plasma creatinine measurement (mass/volume) 1.62 mg/dL 0.60-1.30 Serum or plasma urea nitrogen/creatinine mass ratio 19 NRG Serum or plasma creatinine measurement w ith calculation of estimated glomerular filtration rate 31 NRG Serum or plasma glucose measurement (mass/volume) 90 mg/dL 70-105 Serum or plasma calcium measurement (mass/volume) 9.0 mg/dL 8.5-10.1 Serum or plasma total bilirubin measurement (mass/volu me) 0.4 mg/dL 0.1-1.0 Serum or plasma alkaline phosphatase luli surement (enzymatic activity/volume) 55 U/L 40-136 Serum or plasma aspartate aminotransfera se measurement (enzymatic activity/volume) 14 U/L 5-34 Serum or plasma alanine aminotransferase measurement (enzymatic activity/volume) 7 U/L 0-55 Serum or plasma protein measurement (mass/volume) 6.6 g/dL 6.4-8.2 Serum or plasma albumin measurement (mass/volume) 3.8 g/dL 3.2-4.5 Serum or plasma amylase measurement (enz ymatic activity/volume) - 06/19/16 14:25 Serum or plasma amylase measurement (enzymatic activit y/volume) 45 U/L 25-125 Lipase - 06/19/16 14:25 Lipase 33 U/L 8-78 Complete urinalysis with reflex to cultu re - 06/19/16 15:14 Urine color determination YELLOW NRG Urine clarity determination CLEAR NR G Urine pH measurement by test strip 6 5-9 Specific gravity of urine by test strip 1.015 1.016-1.022 Urine protein assay by test strip, semi-quantitative 1+ NEGATIVE Urine glucose detection by automated test strip NE GATIVE NEGATIVE Erythrocytes detection in urine sediment by light micr oscopy 3+ NEGATIVE Urine ketones detection by automated test strip NE GATIVE NEGATIVE Urine nitrite detection by test strip NEGATIVE NEGATIVE Urine total bilirubin detection by test strip NEGA TIVE NEGATIVE Urine urobilinogen measurement by automated test strip (mass/volume) NORMAL NORMAL Urine leukocyte esterase detection by dipstick 2+ NEGATIVE Automated urine sediment erythrocyte cou nt by microscopy (number/high power field) NONE NRG Automated urine sediment leukocyte count by microscopy (number/high power field) [HPF] NRG Bacteria detection in urine sediment by light microsco py TRACE NRG Squamous epithelial cells detection in u rine sediment by light microscopy 5-10 NRG Crystals detection in urine sediment by light microsco py NONE NRG Casts detection in urine sediment by light microscopy PRESENT NRG Mucus detection in urine sediment by light microscopy NEGATIVE NRG Complete urinalysis with reflex to culture NO NRG Hyaline casts detection in urine sediment by light ada roscopy 25-50 NRG Bacterial urine culture - 06/19/16 15:14 Bacterial urine culture FOOTNOTE NRG Whole blood hemoglobin and hematocrit pa adi - 07/26/16 12:26 Venous blood hemoglobin measurement (mass/volume) 14.6 g/dL 11.5-16.0 Blood hematocrit (volume fraction) 44 % 35-52 Complete blood count (CBC) with automate d white blood cell (WBC) differential - 07/26/16 22:55 Blood leukocytes automated count (number/volume) 14.7 10*3/uL 4.3-11.0 Blood erythrocytes automated count (number/volume) 4.00 10*6/uL 4.35-5.85 Venous blood hemoglobin measurement (mass/volume) 13.3 g/dL 11.5-16.0 Blood hematocrit (volume fraction) 40 % 35-52 Automated erythrocyte mean corpuscular volume 99 [ foz_us] 80-99 Automated erythrocyte mean corpuscular h emoglobin (mass per erythrocyte) 33 pg 25-34 Automated erythrocyte mean corpuscular h emoglobin concentration measurement (mass/volume) 34 g/dL 32-36 Automated erythrocyte distribution width ratio 14. 2 % 10.0- 14.5 Automated blood platelet count (count/volume) 261 10*3/uL [...] 10*3 1.0-4.0 Blood monocytes automated count (number/volume) 1. 0 10*3 0.0-1.0 Automated eosinophil count 0.2 10*3/uL 0 .0-0.3 Automated blood basophil count (count/volume) 0.1 10*3/uL 0.0-0.1 PT panel in platelet poor plasma by coag ulation assay - 07/26/16 22:55 Prothrombin time (PT) in platelet poor plasma by coagu lation assay 14.1 s 12.2-14.7 INR in platelet poor plasma or blood by coagulation as say 1.1 0.8-1.4 Activated partial thromboplastin time (a PTT) in platelet poor plasma bycoagulation assay - 07/26/16 22:55 Activated partial thromboplastin time (a PTT) in platelet poor plasma bycoagulation assay 24 s 24-35 Blood manual differential performed dete ction - 07/26/16 22:55 Blood monocytes/100 leukocytes 5 % NRG Manual blood segmented neutrophils/100 leukocytes 59 % NRG Blood band neutrophils/100 leukocytes 4 % NRG Manual blood lymphocytes/100 leukocytes 31 % NRG Manual eosinophils/100 leukocytes in nose 1 % NRG Manual blood basophils/100 leukocytes 0 % NRG Blood erythrocyte morphology finding identification NORMAL [facility] Comprehensive metabolic panel - 07/26/16 22:55 Serum or plasma sodium measurement (moles/volume) 139 mmol/L 135-145 Serum or plasma potassium measurement (moles/volume) 4.1 mmol/L 3.6-5.0 Serum or plasma chloride measurement (moles/volume) 105 mmol/L 98-107 Carbon dioxide 22 mmol/L 21-32 Serum or plasma anion gap determination (moles/volume) 12 mmol/L 5-14 Serum or plasma urea nitrogen measurement (mass/volume ) 16 mg/dL 7-18 Serum or plasma creatinine measurement (mass/volume) 0.82 mg/dL 0.60-1.30 Serum or plasma urea nitrogen/creatinine mass ratio 20 NRG Serum or plasma creatinine measurement w ith calculation of estimated glomerular filtration rate > NRG Serum or plasma glucose measurement (mass/volume) 147 mg/dL 70-105 Serum or plasma calcium measurement (mass/volume) 8.7 mg/dL 8.5-10.1 Serum or plasma total bilirubin measurement (mass/volu me) 0.3 mg/dL 0.1-1.0 Serum or plasma alkaline phosphatase luli surement (enzymatic activity/volume) 67 U/L 40-136 Serum or plasma aspartate aminotransfera se measurement (enzymatic activity/volume) 14 U/L 5-34 Serum or plasma alanine aminotransferase measurement (enzymatic activity/volume) 6 U/L 0-55 Serum or plasma protein measurement (mass/volume) 6.2 g/dL 6.4-8.2 Serum or plasma albumin measurement (mass/volume) 3.8 g/dL 3.2-4.5 Blood type T Indirect antibody screen [facility] - 07/26/16 22:55 ABO+Rh group AP [facility] Transfusion band number [id number] [facility] Blood group antibody screen NEGATIVE NR G Whole blood hemoglobin and hematocrit [facility] - 07/27/16 05:00 Venous blood hemoglobin measurement (mass/volume) 10.9 g/dL 11.5-16.0 Blood hematocrit (volume fraction) 33 % 35-52 Complete blood count (CBC) with automate d white blood cell (WBC) differential - 07/28/16 05:20 Blood leukocytes automated count (number/volume) 9.2 10*3/uL 4.3-11.0 Blood erythrocytes automated count (number/volume) 3.09 10*6/uL 4.35-5.85 Venous blood hemoglobin measurement (mass/volume) 10.1 g/dL 11.5-16.0 Blood hematocrit (volume fraction) 31 % 35-52 Automated erythrocyte mean corpuscular volume 101 [foz_us] 80-99 Automated erythrocyte mean corpuscular h emoglobin (mass per erythrocyte) 33 pg 25-34 Automated erythrocyte mean corpuscular h emoglobin concentration measurement (mass/volume) 33 g/dL 32-36 Automated erythrocyte distribution width ratio 14. 3 % 10.0- 14.5 Automated blood platelet count (count/volume) 201 10*3/uL [...] 10*3 1.0-4.0 Blood monocytes automated count (number/volume) 0. 8 10*3 0.0-1.0 Automated eosinophil count 0.3 10*3/uL 0 .0-0.3 Automated blood basophil count (count/volume) 0.1 10*3/uL 0.0-0.1 Comprehensive metabolic panel - 07/28/16 05:20 Serum or plasma sodium measurement (moles/volume) 143 mmol/L 135-145 Serum or plasma potassium measurement (moles/volume) 3.9 mmol/L 3.6-5.0 Serum or plasma chloride measurement (moles/volume) 112 mmol/L 98-107 Carbon dioxide 23 mmol/L 21-32 Serum or plasma anion gap determination (moles/volume) 8 mmol/L 5-14 Serum or plasma urea nitrogen measurement (mass/volume ) 8 mg/dL 7-18 Serum or plasma creatinine measurement (mass/volume) 0.69 mg/dL 0.60-1.30 Serum or plasma urea nitrogen/creatinine mass ratio 12 NRG Serum or plasma creatinine measurement w ith calculation of estimated glomerular filtration rate > NRG Serum or plasma glucose measurement (mass/volume) 89 mg/dL 70-105 Serum or plasma calcium measurement (mass/volume) 8.3 mg/dL 8.5-10.1 Serum or plasma total bilirubin measurement (mass/volu me) 0.2 mg/dL 0.1-1.0 Serum or plasma alkaline phosphatase luli surement (enzymatic activity/volume) 52 U/L 40-136 Serum or plasma aspartate aminotransfera se measurement (enzymatic activity/volume) 12 U/L 5-34 Serum or plasma alanine aminotransferase measurement (enzymatic activity/volume) < U/L 0-55 Serum or plasma protein measurement (mass/volume) 5.1 g/dL 6.4-8.2 Serum or plasma albumin measurement (mass/volume) 3.2 g/dL 3.2-4.5 CBC With Differential/Platelet - 7 11:14 WBC 12.6 x10E3/uL 3.4-10.8 RBC 3.33 x10E6/uL 3.77-5.28 Hemoglobin 10.7 g/dL 11.1-15.9 Hematocrit 32.8 % 34.0-46.6 MCV 99 fL 79-97 MCH 32.1 pg 26.6-33.0 MCHC 32.6 g/dL 31.5-35.7 RDW 13.7 % 12.3-15.4 Platelets 350 x10E3/uL 150-379 Neutrophils 75 % Lymphs 18 % Monocytes 5 % Eos 1 % Basos 1 % Neutrophils (Absolute) 9.4 x10E3/uL 1.4- 7.0 Lymphs (Absolute) 2.2 x10E3/uL 0.7-3.1 Monocytes(Absolute) 0.7 x10E3/uL 0.1-0.9 Eos (Absolute) 0.1 x10E3/uL 0.0-0.4 Baso (Absolute) 0.1 x10E3/uL 0.0-0.2 Immature Granulocytes 0 % Immature Grans (Abs) 0.0 x10E3/uL 0.0-0. 1 CBC With Differential/Platelet - 7 10:40 WBC 10.3 x10E3/uL 3.4-10.8 RBC 3.96 x10E6/uL 3.77-5.28 Hemoglobin 11.7 g/dL 11.1-15.9 Hematocrit 37.8 % 34.0-46.6 MCV 96 fL 79-97 MCH 29.5 pg 26.6-33.0 MCHC 31.0 g/dL 31.5-35.7 RDW 14.8 % 12.3-15.4 Platelets 426 x10E3/uL 150-379 Neutrophils 77 % Lymphs 16 % Monocytes 5 % Eos 1 % Basos 1 % Neutrophils (Absolute) 7.9 x10E3/uL 1.4- 7.0 Lymphs (Absolute) 1.7 x10E3/uL 0.7-3.1 Monocytes(Absolute) 0.5 x10E3/uL 0.1-0.9 Eos (Absolute) 0.1 x10E3/uL 0.0-0.4 Baso (Absolute) 0.1 x10E3/uL 0.0-0.2 Immature Granulocytes 0 % Immature Grans (Abs) 0.0 x10E3/uL 0.0-0. 1 CBC With Differential/Platelet - 7 09:05 WBC 9.3 x10E3/uL 3.4-10.8 RBC 3.68 x10E6/uL 3.77-5.28 Hemoglobin 10.7 g/dL 11.1-15.9 Hematocrit 33.3 % 34.0-46.6 MCV 91 fL 79-97 MCH 29.1 pg 26.6-33.0 MCHC 32.1 g/dL 31.5-35.7 RDW 15.7 % 12.3-15.4 Platelets 370 x10E3/uL 150-379 Neutrophils 68 % Lymphs 20 % Monocytes 9 % Eos 2 % Basos 1 % Neutrophils (Absolute) 6.4 x10E3/uL 1.4- 7.0 Lymphs (Absolute) 1.9 x10E3/uL 0.7-3.1 Monocytes(Absolute) 0.8 x10E3/uL 0.1-0.9 Eos (Absolute) 0.2 x10E3/uL 0.0-0.4 Baso (Absolute) 0.1 x10E3/uL 0.0-0.2 Immature Granulocytes 0 % Immature Grans (Abs) 0.0 x10E3/uL 0.0-0. 1 CBC With Differential/Platelet - 7 09:34 WBC 10.4 x10E3/uL 3.4-10.8 RBC 4.10 x10E6/uL 3.77-5.28 Hemoglobin 11.3 g/dL 11.1-15.9 Hematocrit 36.5 % 34.0-46.6 MCV 89 fL 79-97 MCH 27.6 pg 26.6-33.0 MCHC 31.0 g/dL 31.5-35.7 RDW 16.8 % 12.3-15.4 Platelets 373 x10E3/uL 150-379 Neutrophils 72 % Lymphs 18 % Monocytes 8 % Eos 1 % Basos 1 % Neutrophils (Absolute) 7.5 x10E3/uL 1.4- 7.0 Lymphs (Absolute) 1.8 x10E3/uL 0.7-3.1 Monocytes(Absolute) 0.8 x10E3/uL 0.1-0.9 Eos (Absolute) 0.1 x10E3/uL 0.0-0.4 Baso (Absolute) 0.1 x10E3/uL 0.0-0.2 Immature Granulocytes 0 % Immature Grans (Abs) 0.0 x10E3/uL 0.0-0. 1 CBC+Platelet+Hem Review - 09/23/16 12:58 WBC 6.2 x10E3/uL 3.4-10.8 RBC 4.26 x10E6/uL 3.77-5.28 Hemoglobin 11.0 g/dL 11.1-15.9 Hematocrit 36.5 % 34.0-46.6 MCV 86 fL 79-97 MCH 25.8 pg 26.6-33.0 MCHC 30.1 g/dL 31.5-35.7 RDW 17.3 % 12.3-15.4 Platelets 300 x10E3/uL 150-379 Neutrophils 49 % Lymphs 38 % Monocytes 8 % Eos 4 % Basos 1 % Neutrophils Absolute 3.0 X10E3/uL 1.4-7. 0 Lymphs (Absolute) 2.4 X10E3/uL 0.7-3.1 Monocytes(Absolute) 0.5 X10E3/uL 0.1-0.9 Eos (Absolute Value) 0.2 X10E3/uL 0.0-0. 4 Baso(Absolute) 0.1 X10E3/uL 0.0-0.2 Differential Comment Appear normal. RBC Comment Appear normal. Normal Platelet Comment Adequate Adequate Complete blood count (CBC) with automate d white blood cell (WBC) differential - 10/10/16 09:22 Blood leukocytes automated count (number/volume) 11.5 10*3/uL 4.3-11.0 Blood erythrocytes automated count (number/volume) 4.70 10*6/uL 4.35-5.85 Venous blood hemoglobin measurement (mass/volume) 12.0 g/dL 11.5-16.0 Blood hematocrit (volume fraction) 40 % 35-52 Automated erythrocyte mean corpuscular volume 84 [ foz_us] 80-99 Automated erythrocyte mean corpuscular h emoglobin (mass per erythrocyte) 26 pg 25-34 Automated erythrocyte mean corpuscular h emoglobin concentration measurement (mass/volume) 30 g/dL 32-36 Automated erythrocyte distribution width ratio 18. 4 % 10.0- 14.5 Automated blood platelet count (count/volume) 298 10*3/uL [...] 10*3 1.0-4.0 Blood monocytes automated count (number/volume) 0. 7 10*3 0.0-1.0 Automated eosinophil count 0.2 10*3/uL 0 .0-0.3 Automated blood basophil count (count/volume) 0.1 10*3/uL [...] % Not Estab. Neutrophils (Absolute) 6.7 x10E3/uL 1.4- 7.0 Lymphs (Absolute) 2.1 x10E3/uL 0.7-3.1 Monocytes(Absolute) 0.7 x10E3/uL 0.1-0.9 Eos (Absolute) 0.2 x10E3/uL 0.0-0.4 Baso (Absolute) 0.1 x10E3/uL 0.0-0.2 Immature Granulocytes 0 % Not Esta b. Immature Grans (Abs) 0.0 x10E3/uL 0.0-0. 1 Immature Cells NRG NRBC NRG Hematology Comments: NRG CBC With Differential/Platelet - 7 17:36 WBC 9.8 x10E3/uL 3.4-10.8 RBC 5.04 [...] % Not Estab. Neutrophils (Absolute) 6.7 x10E3/uL 1.4- 7.0 Lymphs (Absolute) 2.1 x10E3/uL 0.7-3.1 Monocytes(Absolute) 0.7 x10E3/uL 0.1-0.9 Eos (Absolute) 0.2 x10E3/uL 0.0-0.4 Baso (Absolute) 0.1 x10E3/uL 0.0-0.2 Immature Granulocytes 0 % Not Esta b. Immature Grans (Abs) 0.0 x10E3/uL 0.0-0. 1 Sputum Gram stain - 12/22/17 07:57 Sputum Gram stain REPORTED 12-22-2017, 1705. NRG Bacteria identification in bronchial spe cimen by aerobe culture - 12/22/17 07:57 QUANTITY OF GROWTH . NRG Bacteria identification in bronchial specimen by aerob e culture USUAL ORAL NRG FTX;REPORTABLE >10,000 CFU/ML NRG Mycobacterium species detection by organ ism specific culture - 12/22/17 07:57 C FUNGUS SPUTUM FLUID TISSUE - 12/22/17 07:57 FUNGUS REPORT NO FUNGUS GROWTH OBSERVED NRG CBC - 02/12/18 09:57 WHITE BLOOD CELL COUNT 9.3 Thousand/uL 3 .8-10.8 RED BLOOD CELL COUNT 4.99 Million/uL 3.8 0-5.10 HEMOGLOBIN 14.8 g/dL 11.7-15.5 HEMATOCRIT 45.7 % 35.0-45.0 MCV 91.6 fL 80.0-100.0 MCH 29.7 pg 27.0-33.0 MCHC 32.4 g/dL 32.0-36.0 RDW 14.6 % 11.0-15.0 PLATELET COUNT 275 Thousand/uL 140-400 MPV 10.7 fL 7.5-12.5 ABSOLUTE NEUTROPHILS 6659 cells/uL 1500- 7800 ABSOLUTE LYMPHOCYTES 1758 cells/uL 850-3 900 ABSOLUTE MONOCYTES 586 cells/uL 200-950 ABSOLUTE EOSINOPHILS 214 cells/uL 15-500 ABSOLUTE BASOPHILS 84 cells/uL 0-200 NEUTROPHILS 71.6 % NRG LYMPHOCYTES 18.9 % NRG MONOCYTES 6.3 % NRG EOSINOPHILS 2.3 % NRG BASOPHILS 0.9 % NRG Methicillin resistant Staphylococcus aur eus (MRSA) screening culture - 03/23/18 09:10 Methicillin resistant Staphylococcus aureus (MRSA) scr eening culture NEG NRG Whole blood basic metabolic panel - 02/25 12/12 05:45 Serum or plasma sodium measurement (moles/volume) 139 mmol/L 135-145 Serum or plasma potassium measurement (moles/volume) 4.4 mmol/L 3.6-5.0 Serum or plasma chloride measurement (moles/volume) 104 mmol/L 98-107 Carbon dioxide 22 mmol/L 21-32 Serum or plasma anion gap determination (moles/volume) 13 mmol/L 5-14 Serum or plasma urea nitrogen measurement (mass/volume ) 10 mg/dL 7-18 Serum or plasma creatinine measurement (mass/volume) 0.71 mg/dL 0.60-1.30 Serum or plasma urea nitrogen/creatinine mass ratio 14 NRG Serum or plasma creatinine measurement w ith calculation of estimated glomerular filtration rate > NRG Serum or plasma glucose measurement (mass/volume) 109 mg/dL 70-105 Serum or plasma calcium measurement (mass/volume) 8.7 mg/dL 8.5-10.1 TSH w/ FREE T4 - 06/11/18 09:47 TSH 15.69 mIU/L 0.40-4.50 T4, FREE 1.2 ng/dL 0.8-1.8 CBC - 10/17/18 17:01 WHITE BLOOD CELL COUNT 10.9 Thousand/uL 3.8-10.8 RED BLOOD CELL COUNT 4.85 Million/uL 3.8 0-5.10 HEMOGLOBIN 14.5 g/dL 11.7-15.5 HEMATOCRIT 45.1 % 35.0-45.0 MCV 93.0 fL 80.0-100.0 MCH 29.9 pg 27.0-33.0 MCHC 32.2 g/dL 32.0-36.0 RDW 13.6 % 11.0-15.0 PLATELET COUNT 289 Thousand/uL 140-400 MPV 9.7 fL 7.5-12.5 ABSOLUTE NEUTROPHILS 7739 cells/uL 1500- 7800 ABSOLUTE LYMPHOCYTES 1973 cells/uL 850-3 900 ABSOLUTE MONOCYTES 937 cells/uL 200-950 ABSOLUTE EOSINOPHILS 185 cells/uL 15-500 ABSOLUTE BASOPHILS 65 cells/uL 0-200 NEUTROPHILS 71 % NRG LYMPHOCYTES 18.1 % NRG MONOCYTES 8.6 % NRG EOSINOPHILS 1.7 % NRG BASOPHILS 0.6 % NRG Automated blood complete blood count (he mogram) panel - 02/11/19 07:35 Blood leukocytes automated count (number/volume) 8.7 10*3/uL 4.3-11.0 Blood erythrocytes automated count (number/volume) 4.57 10*6/uL 4.35-5.85 Venous blood hemoglobin measurement (mass/volume) 13.8 g/dL 11.5-16.0 Blood hematocrit (volume fraction) 43 % 35-52 Automated erythrocyte mean corpuscular volume 94 [ foz_us] 80-99 Automated erythrocyte mean corpuscular h emoglobin (mass per erythrocyte) 30 pg 25-34 Automated erythrocyte mean corpuscular h emoglobin concentration measurement (mass/volume) 32 g/dL 32-36 Automated erythrocyte distribution width ratio 16. 4 % 10.0- 14.5 Automated blood platelet count (count/volume) 226 10*3/uL 130-400 Automated blood platelet mean volume measurement 10.2 [foz_us] 7.4-10.4 PT panel in platelet poor plasma by coag ulation assay - 02/11/19 07:35 Prothrombin time (PT) in platelet poor plasma by coagu lation assay 13.4 s 12.2-14.7 INR in platelet poor plasma or blood by coagulation as say 1.0 0.8-1.4 Activated partial thromboplastin time (a PTT) in platelet poor plasma bycoagulation assay - 02/11/19 07:35 Activated partial thromboplastin time (a PTT) in platelet poor plasma bycoagulation assay 27 s 24-35 Encounters ACCT No. Visit Date/Time Discharge Status Pt. Type Provider Facility Loc./Unit Complaint [id number] 08/03/2016 08:07:00 Document Registration [id number] 03/18/2016 13:06:00 Document Registration [id number] 08/26/2016 08:06:00 Document Registration [id number] 05/06/2019 10:10:00 05/06/2019 23:59:5 9 CLS [id number] 10/17/2018 15:20:00 Document Registration [id number] 06/11/2018 08:40:00 Document Registration [id number] 02/12/2018 08:40:00 Document Registration [id number] 12/26/2016 16:40:00 Document Registration [id number] 09/08/2016 08:06:00 Document Registration [id number] 12/27/2016 08:07:00 Document Registration [id number] 02/19/2019 13:52:00 23:59:59 CLS Preadmit JOON CHAPIN APRN [facility] RAD DYSPNEA [id number] 02/11/2019 07:07:00 15:15:00 DIS Outpatient JOON CHAPIN APRN [facility] SDC OTHER NONSPECIF IC ABN FINDING OF LUNG FIELD [id number] 01/11/2019 08:52:00 23:59:59 CLS Outpatient JOON CHAPIN APRN [facility] RAD LUNG MASS [id number] 07/03/2018 00:15:00 23:59:59 CLS Preadmit KAREEM ORTIZ, CAREN Adams [facility] ONC [id number] 04/25/2018 13:10:00 00:01:00 DIS Outpatient CAREN SERNA MD [facility] ONC [id number] 06/28/2018 14:47:00 23:59:59 CLS Outpatient SHERWIN UNDERWOOD [facility] RAD CAROTID ARTERIA L DISEASE [id number] 06/26/2018 12:09:00 23:59:59 CLS Outpatient JOON CHAPIN APRN [facility] RAD COPD,DYSPNEA [id number] 05/03/2018 12:39:00 23:59:59 CLS Outpatient CAREN SERNA MD [facility] CARD THYROID CANCER [id number] 04/25/2018 13:22:00 23:59:59 CLS Outpatient CAREN SERNA MD [facility] CARD [id number] 03/23/2018 08:35:00 13:00:00 DIS Outpatient [facility] [id number] 03/22/2018 12:03:00 12:11:00 DIS Outpatient HANSEL HARRISON MD [facility] PREOP THYROID NODULES [id number] 03/09/2018 07:08:00 23:59:59 CLS Outpatient ARTIE ORTIZ FACC, DONTAE SERRA CC DS [facility] CARD CAROTID ART ERIAL DISEASE,HTN,CAD [id number] 02/01/2018 14:41:00 23:59:59 CLS Outpatient DAY HUGHES [facility] RAD THYROID NODULE [id number] 12/25/2017 10:28:00 23:59:59 CLS Outpatient JOON CHAPIN APRN [facility] RT R91.8 LUNG MASS [id number] 12/22/2017 06:40:00 09:20:00 DIS Outpatient BRENT HERNÁNDEZ DOCHARLOTTE Pendleton [facility] ENDO LUNG MASS/TOBACCO USER/COPD/DYSPNEA [id number] 12/19/2017 08:52:00 018 23:59:59 CLS Outpatient FLORENCIO HERNÁNDEZ DO Hel[place] [facility] RAD LUNG MASS [id number] 06/20/2017 15:38:00 018 23:59:59 CLS Outpatient SHERWIN UNDERWOODP [facility] LAB D50.0 [id number] 05/13/2017 09:18:00 018 23:59:59 CLS Outpatient ARTIE ORTIZ FACC, ALI FACP CC DS [facility] LAB E78.4 [id number] 04/11/2017 13:12:00 018 23:59:59 CLS Outpatient ARTIE ORTIZ FACC, ALI FACP CC DS [facility] RAD I73.9 RADHA ICATION [id number] 03/31/2017 09:25:00 23:59:59 CLS Outpatient ARTIE ORTIZ FACC, ALI FACP CC DS [facility] LAB I65.23 Z87. 19 [id number] 01/30/2017 10:40:00 14:30:00 DIS Outpatient HANSEL HARRISON MD [facility] ENDO EPIGASTRIC PAIN [id number] 01/23/2017 05:51:00 15:06:00 DIS Outpatient HANSEL HARRISON MD [facility] PREOP EGD [id number] 01/06/2017 08:28:00 23:59:59 CLS Outpatient DAY HUGHES [facility] RAD RUQ ABD PAIN [id number] 01/06/2017 22:46:00 23:52:00 DIS Emergency PERCY RUBIO DO [facility] ER FALL/L FOOT INJ [id number] 12/29/2016 10:26:00 017 23:59:59 CLS Preadmit DAY HUGHES [facility] CARD RUQ ABD PAIN [id number] 10/10/2016 09:09:00 017 23:59:59 CLS Outpatient SHERWIN UNDERWOOD [employer] [facility] RAD INCREASED LEG S WELLING [id number] 08/31/2016 08:58:00 017 23:59:59 CLS Outpatient SHERWIN UNDERWOOD [employer] [facility] RAD M79.89 LIMB SWE LLING [id number] 07/26/2016 22:44:00 017 10:48:00 DIS Inpatient JAMEEL TOMPKINS DO, V [facility] 4TH HEMATOCHEZIA,(LOW GI BL EEDING) [id number] 07/26/2016 12:08:00 017 23:59:59 CLS Outpatient KENYETTA REA DO [facility] LAB K62.5 [id number] 07/20/2016 07:33:00 017 10:15:00 DIS Outpatient KENYETTA REA DO [facility] ENDO RECTAL BLEEDING [id number] 07/19/2016 09:00:00 017 09:49:00 DIS Outpatient KENYETTA REA DO [facility] PREOP BLACK STOOLS,CONSTIPATI ON [id number] 07/04/2016 08:18:00 017 13:44:00 DIS Outpatient DAY HUGHES [facility] REHAB R SIDED BACK PAIN [id number] 06/19/2016 13:43:00 017 15:54:00 DIS Emergency PERCY RUBIO DO [facility] ER BACK PAIN [id number] 06/14/2016 13:55:00 017 23:59:59 CLS Outpatient NICK BETTSP [facility] RAD CHRONIC RT SIDE D LOW BACK PAIN W/ RT SIDED SCIATIC [id number] 06/30/2015 12:37:00 016 15:18:00 DIS Emergency WILLIE WOODSON MD [facility] ER CHEST/BACK/UPPE R RIGHT LEG PAIN [id number] 09/22/2014 08:40:00 015 23:59:59 CLS Outpatient ARTIE ORTIZ FACC, DONTAE SERRA CC DS [facility] RAD CAROTID ART ERIAL DISEASE [id number] 08/04/2014 09:44:00 23:59:59 CLS Outpatient SHERWIN UNDERWOOD [facility] RAD PSEUDOANEURYSM POST CATH RIGHT GROIN [id number] 07/31/2014 14:34:00 015 19:30:00 DIS Outpatient ARTURO ORTIZ, JESSE Z [facility] CATH PSEUDOANEURYSM [id number] 07/30/2014 17:03:00 015 21:44:00 DIS Emergency WILLIE WOODSON MD [facility] ER SWELLING CATH S ITE [id number] 07/28/2014 02:30:00 015 17:10:00 DIS Inpatient ELVIA MIMS DO, [facility] CSD HYPOTENSION,FLOWERS,CHEST PAIN,LEUKOCYTOSIS [id number] 06/26/2014 08:32:00 23:59:59 CLS Outpatient DAY HUGHES [facility] RAD OSTEOPOROSIS [id number] 09/24/2013 08:41:00 014 23:59:59 CLS Outpatient DAY HUGHES [facility] RAD ROUTINE [id number] 02/12/2013 12:47:00 23:59:59 CLS Outpatient DAY HUGHES [facility] RAD LEFT KIDNEY. CYST ON L OWER POLE [id number] 02/01/2013 06:48:00 23:59:59 CLS Outpatient DAY HUGHES [facility] RAD HX PANCREATIC NODULE [id number] 01/21/2013 15:54:00 17:45:00 DIS Inpatient DELMER ORTIZ, NEGRO Pendleton [facility] 4TH TIA [id number] 09/10/2012 09:26:00 23:59:59 CLS Outpatient HUMBERTO FORD MD [facility] LAB MED USE [id number] 09/07/2012 07:38:00 23:59:59 CLS Outpatient ARTIE ORTIZ FACC, DONTAE SERRA CC DS [facility] RAD DYSPNEA [id number] 08/06/2019 10:00:00 P EN Preadmit ARTIE ORTIZ FACC, DONTAE SERRA CCDS [facility] CATH HTN [id number] 04/23/2012 12:59:00 Document Registration [id number] 06/20/2011 08:19:00 Document Registration [id number] 03/17/2011 11:16:00 Document Registration [id number] 03/14/2011 11:49:00 Document Registration [id number] 02/28/2011 09:44:00 Document Registration [id number] 09/25/2016 17:06:00 Document Registration [id number] 07/10/2014 12:36:00 07/10/2014 23:59: 59 CLS Outpatient HIRAM SCHROEDER DDS [id number] 06/10/2014 09:39:00 06/10/2014 23:59: 59 CLS Outpatient DAY HUGHES APRN [id number] 04/09/2014 09:14:00 04/09/2014 23:59: 59 CLS Outpatient DAY HUGHES APRN [id number] 03/28/2014 09:04:00 03/28/2014 23:59: 59 CLS Outpatient DONTAE ALVA MD [id number] 03/12/2014 12:43:00 03/12/2014 23:59: 59 CLS Outpatient DAY HUGHES APRN [id number] 08/28/2013 08:29:00 08/28/2013 23:59: 59 CLS Outpatient MIMS DO, ELVIA Pooja [id number] 08/28/2013 08:29:00 08/28/2013 23:59: 59 CLS Outpatient FELICITA DOELVIA [id number] 08/26/2013 08:38:00 08/26/2013 23:59: 59 CLS Outpatient DAY HUGHES APRN [id number] 06/10/2013 00:00:00 06/10/2013 23:59: 59 CLS Outpatient DAY HUGHES APRN [id number] 05/20/2013 09:55:00 05/20/2013 23:59: 59 CLS Outpatient DAY HUGHES APRN [id number] 04/26/2013 08:27:00 04/26/2013 23:59: 59 CLS Outpatient DAY HUGHES APRN [id number] 03/01/2013 08:48:00 03/01/2013 23:59: 59 CLS Outpatient ROSENDO BARROW MD [id number] 03/01/2013 08:48:00 03/01/2013 23:59: 59 CLS Outpatient ROSENDO BARROW MD [id number] 02/27/2013 08:35:00 02/27/2013 23:59: 59 CLS Outpatient FELICITA FUNES ELVIA Patton [id number] 02/27/2013 08:35:00 02/27/2013 23:59: 59 CLS Outpatient FELICITA FUNES ELVIA Patton [id number] 02/11/2013 12:12:00 02/11/2013 23:59: 59 CLS Outpatient DAY HUGHES APRN [id number] 01/29/2013 10:02:00 01/29/2013 23:59: 59 CLS Outpatient ROSENDO BARROW MD [id number] 12/25/2012 10:43:00 12/25/2012 23:59: 59 CLS Outpatient ROSENDO BARROW MD [id number] 05/31/2012 11:49:00 05/31/2012 23:59: 59 CLS Outpatient FELICITA DOELVIA [id number] 04/19/2012 12:03:00 04/19/2012 23:59: 59 CLS Outpatient MIMS DOELVIA [id number] 04/12/2012 13:09:00 04/12/2012 23:59: 59 CLS Outpatient [id number] 03/08/2012 12:59:00 03/08/2012 23:59: 59 CLS Outpatient ELVIA MIMS DO [id number] 02/24/2012 12:50:00 02/24/2012 23:59: 59 CLS Outpatient [id number] 01/19/2012 10:05:00 01/19/2012 23:59:5 9 CLS Outpatient ELVIA MIMS DO [id number] 11/14/2012 13:11:00 Document Registration [id number] 09/05/2012 09:27:00 Document Registration [id number] 07/30/2012 08:21:00 Document Registration [id number] 08/16/2016 08:06:00 Document Registration
[2019-08-06] MEDS ORDERED: NS IV 1000 ML 1,000 ML IV SCH ×2 (08:15→15:13)
[2019-08-06 08:46] LABS: HEMOGLOBIN 13.7 G/DL (11.5-16.0); RED CELL DISTRIBUTION WIDTH 16.8 % (10.0-14.5); WHITE BLOOD COUNT 7.7 10^3/uL (4.3-11.0)
[2019-08-06 08:58] LABS: CHLORIDE 107 MMOL/L (98-107); POTASSIUM 3.9 MMOL/L (3.6-5.0); SODIUM 141 MMOL/L (135-145)
[2019-08-06 08:59] LABS: CALCIUM 8.7 MG/DL (8.5-10.1); PROTHROMBIN TIME PATIENT 13.2 SEC (12.2-14.7)
[2019-08-06 09:00] LABS: GLUCOSE 148 MG/DL (70-105); TRIGLYCERIDES 60 MG/DL (<150); VLDL CHOLESTEROL 12 MG/DL (5-40)
[2019-08-06 09:01] LABS: CARBON DIOXIDE 21 MMOL/L (21-32)
[2019-08-06 09:02] LABS: BILIRUBIN,TOTAL 0.3 MG/DL (0.1-1.0)
[2019-08-06 09:04] LABS: ALKALINE PHOSPHATASE 58 U/L (40-136); CREATININE SERUM 0.82 MG/DL (0.60-1.30); GFR ESTIMATED > 60
[2019-08-06 09:05] LABS: BUN/CREATININE RATIO 16; CHOLESTEROL 174 MG/DL (< 200)
[2019-08-06 09:06] LABS: HDL CHOLESTEROL 59 MG/DL (40-60)
[2019-08-06 09:07] LABS: ALANINE AMINOTRANSFERASE < 6 U/L (0-55)
[2019-08-06] MEDS ORDERED: PRIM50TA33 PO (09:09)
[2019-08-06] MEDS ORDERED: CLOP75TA28 PO (09:09)
[2019-08-06] MEDS ORDERED: DICY20TA10 PO (09:09)
[2019-08-06] MEDS ORDERED: CELE100C PO (09:09)
[2019-08-06] MEDS ORDERED: diphenhydrAMINE 50 MG/ML INJ (BENADRYL) ONE (13:41)
[2019-08-06] MEDS ORDERED: fentaNYL INJECTION 100 MCG/2 ML AMP ONE ×2 (13:41→15:09)
[2019-08-06] MEDS ORDERED: MIDAZOLAM 5 MG/5 ML (VERSED) VIAL ONE (13:41)
--- NOTE | 2019-08-06 14:32 | Cardiac Procedure Note-CS/ASA ---
Pre-Procedure Note Pre-Op Procedure Note H&P Reviewed The H&P was reviewed, patient examined and no changes noted. Date H&P Reviewed: August 06, 2019 Time H&P Reviewed: 14:32 Conscious Sedation Pre-Proced Time 14:32 ASA Score 3 For ASA 3 and 4: Consider anesthesia and medical clearance. Also, for patients with a history of failed moderate sedation consider anesthesia. Airway Lungs Heart ASA score ASA 1: a normal healthy patient ASA 2: a patient with a mild systemic disease (mid diabetes, controlled hypertension, obesity ASA 3: a patient with a severe systemic disease that limits activity (angina, COPD, prior Myocardial infarction) ASA 4: a patient with an incapacitating disease that is a constant threat to life (CHF, renal failure) ASA 5: a moribund patient not expected to survive 24 hrs. (ruptured aneurysm) ASA 6: a declared brain- patient whose organs are being harvested. For emergent operations, add the letter E after the classification Mallampati Classification Grade 2 Sedation Plan Analgesia, Amnesia, Plan communicated to team members, Discussed options with patient/fam, Discussed risks with patient/fam The patient is an appropriate candidate to undergo the planned procedure, sedation, and anesthesia. The patient immediately re-assessed prior to indication. KIRBY ALVA MD FACP FAC CCDS August 06, 2019 14:32
[2019-08-06] MEDS ORDERED: fentaNYL INJECTION 100 MCG/2 ML AMP IVP ONE (15:15)
[2019-08-06] MEDS ORDERED: PATIENT MAY USE OWN MEDS, ALL PO SCH (15:15)
--- NOTE | 2019-08-06 15:16 | OPERATIVE REPORT ---
DATE OF SERVICE: 08/06/2019 PERIPHERAL ANGIOGRAPHY The patient is a 74-year-old lady who has multiple risk factors for coronary and peripheral vascular disease and is known to have coronary and carotid arterial disease. She reports significant bilateral leg claudication, which does not allow her to walk more than half block. Peripheral angiography was carried out today after having obtained an informed consent. DESCRIPTION OF PROCEDURE: She reported allergies to contrast. Accordingly, we treated her with prednisone 40 mg the night before and 40 mg on the morning of the procedure. The right groin was prepared and draped in the usual sterile fashion. Lidocaine 1% was used for local anesthesia. Modified Seldinger technique was used to advance a 5-Iraqi sheath in right femoral artery. A 5-Iraqi pigtail catheter was used for abdominal aortic angiography. The catheter was placed at the level of L1 and abdominal aortic angiography was performed. The catheter was then pulled back to just above the level of the aortoiliac bifurcation and bilateral leg artery angiography was performed. Angiography of the right femoral artery was carried out through the sheath at the end of the procedure and the patient was transferred to the floor for manual sheath removal. ABDOMINAL AORTIC ANGIOGRAPHY: Abdominal aortic angiography indicated moderate calcification and sclerosis of the infrarenal abdominal aorta. The mesenteric arteries, to the extent visualized, do not exhibit significant disease. Renal arteries are seen on both sides. The right renal artery does not exhibit any significant stenosis. The left renal artery exhibits approximately 30% proximal stenosis. The aortoiliac bifurcation shows moderate calcification. BILATERAL LEG ARTERY ANGIOGRAPHY: Bilateral leg artery angiography showed mild to moderate plaque involving the iliac arteries. The common femoral arteries do not exhibit significant disease on either side. On the right side, there is approximately 60% to 70% ostial and proximal stenosis of the deep femoral and up to approximately 60% stenosis of the superficial femoral. There is a 3-vessel runoff on both sides and flow is brisk. On the left side, there is mild to moderate plaque involving the femoral arteries. There is a 3-vessel runoff on the left side with brisk flow. CONCLUSIONS: 1. Infrarenal abdominal aortic atherosclerosis without significant aneurysm or stenosis. 2. Patent bilateral renal arteries with approximately 30% proximal stenosis of the left renal artery. 3. Moderate arterial disease of the circulation of the lower limbs. There is approximately 60% ostial and proximal stenosis of the right deep femoral and approximately 60% stenosis of the mid portion of the right superficial femoral. The rest of the circulation of the lower limbs exhibits mild to moderate plaque. DISCUSSION AND RECOMMENDATIONS: Based on results of the study, it appears appropriate to continue a conservative approach. Risk factor modification has been reviewed. She has been advised to refrain from tobacco use. Job ID: [id number] DocumentID: [id number] Dictated Date: 08/06/2019 14:56:32 [employer] Date: 08/06/2019 15:16:16 Dictated By: KIRBY ALVA MD, MA, FACP, FACC, MTDD
--- NOTE | 2019-08-06 15:17 | Discharge Inst-Post CATH ---
Discharge Inst-CATH/EP Post Cardiac Cath/EP D/C Inst Follow Up/Plan F/u with Dr Burton in 2 weeks ACTIVITY * Go Home directly and rest. * Limit activity of the leg (or wrist if it was used) for 7 days including aerobics, swimming, jogging, bicycling, etc. * Restrict stair-climbing for 7 days if possible, if not, climb up with your n on-cath leg, then bring together on the same step. * Avoid lifting, pushing, pulling or excessive movement of the affected ex tremity for 7 days. * Customary sexual activity may be resumed after 2 days-use caution not to use a position that strains or causes pain to the affected extremity. * No driving for 24 hours. * NO SMOKING. * Avoid straining for bowel movements for 7 days. * Gentle walking on level ground is allowed. * Returning to work will depend on the type of procedure and the results. Your doctor will discuss this with you. CALL YOUR DOCTOR FOR ANY OF THE FOLLOWING: *If bleeding from the puncture site occurs- Apply gentle pressure to site with clean cloth and call your doctor or EMS. * If a knot or lump forms under the skin, increases in size, or causes pain. * If bruising appears to be worsening or moving further down your leg instead of disappearing. * Temperature above 101 F. CARE OF YOUR GROIN INCISION; * Bruising or purple discoloration of the skin near the puncture site is common. * You may shower only, no bathtub bathing for 5 days. Be careful to avoid slipping as your leg may feel stiff. * If a closure device was used on your femoral artery, please see the attached guide regarding care of the device and your leg. * Leave dressing on FOR 24 hours. CARE OF YOUR WRIST INCISION; * Bruising or purple discoloration of the skin near the puncture site is common. * You may shower. * DO NOT submerge wrist. * Leave dressing on FOR 24 hours. KIRBY BURTON MD FACP FAC CCDS August 06, 2019 15:17
--- NOTE | 2019-08-06 15:18 | Discharge Inst-Cardiology ---
Discharge Inst-Cardiac Discharge Medications Continued Medications: Acetaminophen with Codeine (Tylenol with Codeine #3 Tablet) 1 Each Tablet 1 EACH PO Q4H PRN for PAIN-MODERATE, TAB Aspirin (Aspirin) 81 Mg Tab.chew 81 MG PO DAILY, TAB Celecoxib (Celebrex) 100 Mg Capsule 100 MG PO BID, CAP Clopidogrel Bisulfate (Clopidogrel) 75 Mg Tablet 75 MG PO DAILY, TAB Dicyclomine HCl (Dicyclomine HCl) 20 Mg Tablet 20 MG PO TIDAC, TAB L.acidoph & Paracasei,B.lactis (Probiotic) 1 Each Capsule 1 EACH PO HS, CAP Levothyroxine Sodium (Levothyroxine Sodium) 88 Mcg Tablet 88 MCG PO DAILY for 30 Days, #30 TAB 2 Refills Lisinopril (Lisinopril) 10 Mg Tablet 10 MG PO HS, TAB Pantoprazole Sodium (Protonix) 40 Mg Tablet.dr 40 MG PO DAILY for 30 Days, #30 TAB 6 Refills Potassium Gluconate (Potassium) 99 Mg Tablet 99 MG PO DAILY, TAB Primidone (Mysoline) 250 Mg Tablet 250 MG PO HS, TAB Primidone (Mysoline) 50 Mg Tablet 25 MG PO BID, TAB Propranolol HCl (Propranolol HCl) 20 Mg Tablet 20 MG PO BID, TAB Simvastatin (Simvastatin) 40 Mg Tablet 40 MG PO HS, TAB KIRBY ALVA MD FACP FAC CCDS August 06, 2019 15:18
--- NOTE | 2019-08-06 20:34 | NUR ---
SATINDERCARRIE demonstrates understanding of discharge instructions and accurately returns instructions upon questioning. Copy of Post-Discharge Instructions given to . SATINDERCARRIE is able to manage continuing needs after discharge. Patients belongings returned to YAMIL RAJAN. Patient discharged from 512-1 on at 2033. SATINDERCARRIE left floor via wc, accompanied by staff.
== END 2019-08-06 20:34 | disposition home or self-care (01) ==
LOC: CATH 07:44 → CSD 15:33 → CATH 20:34
PROVIDERS: ATTEND Internal Medicine Cardiovascular Disease
DX: I70.0 Atherosclerosis of aorta (principal); I70.1 Atherosclerosis of renal artery; I70.203 Unspecified atherosclerosis of native arteries of extremities, bilateral legs; I65.29 Occlusion and stenosis of unspecified carotid artery; I10 Essential (primary) hypertension; I77.9 Disorder of arteries and arterioles, unspecified; I45.19 Other right bundle-branch block; I25.10 Atherosclerotic heart disease of native coronary artery without angina pectoris; D50.0 Iron deficiency anemia secondary to blood loss (chronic); E66.9 Obesity, unspecified; E78.5 Hyperlipidemia, unspecified; M19.90 Unspecified osteoarthritis, unspecified site; K75.9 Inflammatory liver disease, unspecified; F17.210 Nicotine dependence, cigarettes, uncomplicated; Z91.041 Radiographic dye allergy status; Z88.8 Allergy status to other drugs, medicaments and biological substances; Z79.82 Long term (current) use of aspirin; Z79.899 Other long term (current) drug therapy; Z86.718 Personal history of other venous thrombosis and embolism; Z68.31 Body mass index [BMI] 31.0-31.9, adult; Z90.89 Acquired absence of other organs; Z90.710 Acquired absence of both cervix and uterus; Z90.49 Acquired absence of other specified parts of digestive tract; Z86.73 Personal history of transient ischemic attack (TIA), and cerebral infarction without residual deficits
CPT/HCPCS: 36415; 75625; 75716; 80053; 80061; 85027; 85610; 85730; 87081

== ENCOUNTER → 2019-08-21 | Outpatient (CLI) | payer MEDICARE ==
[~2019-08-21] MED LIST changes: +CELE100C PO; +DICY20TA10 PO; +PRIM50TA33 PO
--- NOTE | 2019-08-21 14:12 | Diagnostic Imaging Report ---
PROCEDURE: CT chest without contrast. TECHNIQUE: Multiple contiguous axial images were obtained through the chest without the use of intravenous contrast. Auto Exposure Controls were utilized during the CT exam to meet ALARA standards for radiation dose reduction. INDICATION: Lung mass. COMPARISON: CT-guided biopsy of 02/11/2019. CT chest without contrast 01/11/2019. FINDINGS: Again seen is a well-circumscribed solid pulmonary nodule in the left upper lobe measuring 1.3 x 1.2 cm, previously 1.2 x 1.3 cm. Stable 0.2 cm solid pulmonary nodule in the right middle lobe along the minor fissure. No new pulmonary nodules. No pleural effusion or pneumothorax. No endobronchial lesions. Surgical clips in the base of the neck. Normal heart size. No pericardial effusion. Mild atherosclerotic calcifications including aortic and coronary. No acute findings in the visualized upper abdomen. Stable multiple compression deformities of thoracic spine. No new fractures. IMPRESSION: The well-circumscribed solid pulmonary nodule in the left upper lobe measuring up to 1.3 cm has been stable since the pre-biopsy CT chest 01/11/2019. No interval growth. No new pulmonary nodules. No acute CT findings in the chest. Dictated by: Dictated on workstation # [id number]
== END ==
LOC: RAD 10:39
PROVIDERS: ATTEND Nurse Practitioner Family
DX: R91.1 Solitary pulmonary nodule (principal); R94.2 Abnormal results of pulmonary function studies; R06.00 Dyspnea, unspecified; Z72.0 Tobacco use
CPT/HCPCS: 71250

== ENCOUNTER 2020-04-14 12:21 | Emergency (ER) | payer MEDICARE ==
[~2020-04-14] VITALS: Ht 145 cm; Wt 72.6 kg
--- NOTE | 2020-04-14 12:36 | ED General ---
General Stated Complaint: FELL Source of Information: Patient Exam Limitations: No Limitations History of Present Illness Date Seen by Provider: Apr 14, 2020 Time Seen by Provider: 12:34 Initial Comments To ER by private vehicle with reports of a fall. Her daughter is on vacation and she was at her daughter's house. She turned around to make sure the door was shut when she states the next thing she knew she was airborne going down the steps. She struck her right shoulder on the phelan of her car. Did not hit her head and denies any neck pain. Denies any chest abdomen or pelvis pain. She was able to walk to her car but has some pain to the lateral right foot. Her only complaints of pain are right shoulder and right foot. No general weakness or palpitations or lightheadedness preceding the fall. Timing/Duration: 1-3 Hours Severity: Moderate Associated Systoms: Denies Symptoms Allergies and Home Medications Allergies Coded Allergies: Iodinated Contrast Media (Verified Allergy, Intermediate, Nausea, 08/06/19) N/V CONFUSION fluticasone (Verified Allergy, Unknown, RASH, 03/21/18) Home Medications Acetaminophen with Codeine 1 Each Tablet, 1 EACH PO Q4H PRN for PAIN-MODERATE, (Reported) Aspirin 81 Mg Tab.chew, 81 MG PO DAILY, (Reported) Celecoxib 100 Mg Capsule, 100 MG PO BID, (Reported) Clopidogrel Bisulfate 75 Mg Tablet, 75 MG PO DAILY, (Reported) Dicyclomine HCl 20 Mg Tablet, 20 MG PO TIDAC, (Reported) L.acidoph & Paracasei,B.lactis 1 Each Capsule, 1 EACH PO HS, (Reported) Levothyroxine Sodium 88 Mcg Tablet, 88 MCG PO DAILY Prescribed by: HANSEL HARRISON on 03/23/18 1535 Lisinopril 10 Mg Tablet, 10 MG PO HS, (Reported) Pantoprazole Sodium 40 Mg Tablet.dr, 40 MG PO DAILY Prescribed by: HANSEL HARRISON on 01/30/17 1325 Potassium Gluconate 99 Mg Tablet, 99 MG PO DAILY, (Reported) Primidone 250 Mg Tablet, 250 MG PO HS, (Reported) Primidone 50 Mg Tablet, 25 MG PO BID, (Reported) Propranolol HCl 20 Mg Tablet, 20 MG PO BID, (Reported) Simvastatin 40 Mg Tablet, 40 MG PO HS, (Reported) Patient Home Medication List Home Medication List Reviewed: Yes Review of Systems Review of Systems Constitutional: see HPI EENTM: see HPI Respiratory: no symptoms reported Cardiovascular: no symptoms reported Genitourinary: no symptoms reported Musculoskeletal: see HPI Skin: no symptoms reported Psychiatric/Neurological: No Symptoms Reported Hematologic/Lymphatic: No Symptoms Reported Immunological/Allergic: no symptoms reported Past Crfmsbl-Yxopdu-Tvmfce Hx Patient Social History Type Used: Cigarettes 2nd Hand Smoke Exposure: No Recent Hopitalizations: No Immunizations Up To Date Tetanus Booster (TDap): Unknown Date of Pneumonia Vaccine: Jan 21, 2015 Date of Influenza Vaccine: Feb 04, 2019 Seasonal Allergies Seasonal Allergies: No Past Medical History Surgeries: Yes (CARDIAC CATH; HYST/BSO-2 DIFFERENT SURGERIES; SURGERY FOR PROLAPSED BLADDER) Adenoidectomy, Bladder Surgery, Cardiac, Hysterectomy, Oophorectomy, Thyroidectomy, Tonsillectomy Respiratory: Yes COPD Currently Using CPAP: No Currently Using BIPAP: No Cardiac: Yes Coronary Artery Disease, High Cholesterol, Hypertension, Peripheral Vascular Neurological: Yes (FAMILIAL TREMOR) Stroke Reproductive Disorders: No Female Reproductive Disorders: Denies BLACKJACK PIT BOSS History: Hysterectomy, Menopausal Sexually Transmitted Disease: No HIV/AIDS: No Genitourinary: Yes Kidney Stones Gastrointestinal: No Ulcer, Irritable Bowel Musculoskeletal: Yes Arthritis, Back Injury, Chronic Back Pain Endocrine: No HEENT: No Loss of Vision: Bilateral Hearing Impairment: Denies Cancer: Yes Thyroid What Type of Treatment Did You: Surgical Intervention Psychosocial: No Integumentary: No Blood Disorders: No Adverse Reaction/Blood Tranf: No (N/A) Family Medical History Cardiovascular disease 19 FATHER ( at 73 with mi) Completed stroke 19 MOTHER ( at 83 complications of stroke) CAD Over 55 Years Old Physical Exam Vital Signs Capillary Refill : Height, Weight, BMI Height: 4'10.00" Weight: 140lbs. 0.0oz. 63.043109ju; 31.09 BMI Method:Stated General Appearance: No Apparent Distress, WD/WN Eyes: Bilateral Eye Normal Inspection, Bilateral Eye PERRL, Bilateral Eye EOMI HEENT: PERRL/EOMI, TMs Normal Neck: Full Range of Motion, Normal Inspection; No Tender Lateral, No Tender Midline Respiratory: No Accessory Muscle Use, Accessory Muscle Use Gastrointestinal: Normal Bowel Sounds, Non Tender, Soft Extremity: Normal Capillary Refill, Other (Limited range of motion with swelling to the right shoulder. The right lateral foot is tender to palpation but has a normal appearance without ecchymosis or swelling.) Neurologic/Psychiatric: Alert, Oriented x3 Skin: Normal Color, Warm/Dry Progress/Results/Core Measures Suspected Sepsis SIRS Temperature: Pulse: Respiratory Rate: Blood Pressure / Mean: Results/Orders My Orders Orders - ULISSES GARDNER APRN Shoulder, Right, 3 Views (04/14/20 12:33) Foot, Right, 3 View (04/14/20 12:33) Tramadol Tablet (Ultram Tablet) (04/14/20 12:45) Medications Given in ED Current Medications Medications Dose Ordered Sig/Tobias Route Start Time Stop Time Status Last Admin Dose Admin Tramadol HCl 50 mg ONCE ONCE PO 04/14/20 12:45 04/14/20 12:46 DC 04/14/20 12:48 50 MG Vital Signs/I&O Capillary Refill : Departure Communication (Admissions) I discussed with her admission if she is unable to take care of herself at home but she states her daughter is coming down from [place] and she would prefer to go home at least for the time. If she has troubles caring for herself she agrees that she will call [facility] and see if they can help arrange home health. We will give her a boot and a sling. She requests Tylenol 3 for pain. Impression Primary Impression: Proximal humerus fracture Qualified Codes: S42.201A - Unspecified fracture of upper end of right humerus, initial encounter for closed fracture Additional Impression: Metatarsal bone fracture Disposition: 01 HOME, SELF-CARE Condition: Stable Departure-Patient Inst. Decision time for Depature: 13:03 Referrals: [facility]JAIMIE (PCP) Primary Care Physician DAY HUGHES (Family) Primary Care Physician JOHN JONES MD, MICHAEL P MD Patient Instructions: Shoulder Fracture Add. Discharge Instructions: 1. Ice pack to the shoulder. Wear the sling at all times except when showering. Pain medication as directed. Follow-up with orthopedics. Scripts Acetaminophen with Codeine (Acetaminophen-Cod #3 Tablet) 1 Each Tablet 1 EACH PO Q4H PRN for PAIN-MODERATE (5-7) for 7 Days, #30 TAB Prov: ULISSES GARDNER APRN 04/14/20 ULISSES GARDNER APRN Apr 14, 2020 12:36
[2020-04-14] MEDS ORDERED: ACET1TAB43 PO (13:16)
--- NOTE | 2020-04-14 13:18 | Diagnostic Imaging Report ---
INDICATION: Fall with right foot pain. AP, oblique, and lateral views of the right foot are obtained at 12:48 p.m. There is a nondisplaced fracture of the base of fifth metatarsal which appears acute. No other fractures are visualized. IMPRESSION: Nondisplaced fracture at the base of the fifth metatarsal. Dictated by: Dictated on workstation # [id number]
--- NOTE | 2020-04-14 13:19 | Diagnostic Imaging Report ---
INDICATION: Pain. FINDINGS: There is a fracture at the proximal right humerus without significant displacement. There is mild widening of the glenohumeral joint space superiorly which may be distended with joint fluid on a posttraumatic basis. Fracture involves the humeral neck. There is a longitudinal component extending proximally into the base of the greater tuberosity. IMPRESSION: Proximal humeral fractures involve its neck and greater tuberosity with likely posttraumatic joint effusion. No dislocation or significant angulation. Dictated by: Dictated on workstation # [id number]
[2020-04-14 14:03] VITALS: BP 155/79
== END 2020-04-14 14:03 | disposition home or self-care (01) ==
LOC: EDUNIT# 12:21 → ER 12:24
DX: S42.291A Other displaced fracture of upper end of right humerus, initial encounter for closed fracture (principal); S92.354A Nondisplaced fracture of fifth metatarsal bone, right foot, initial encounter for closed fracture; E78.00 Pure hypercholesterolemia, unspecified; I10 Essential (primary) hypertension; Z91.041 Radiographic dye allergy status; Z88.8 Allergy status to other drugs, medicaments and biological substances; Z85.850 Personal history of malignant neoplasm of thyroid; Z95.9 Presence of cardiac and vascular implant and graft, unspecified; Z86.73 Personal history of transient ischemic attack (TIA), and cerebral infarction without residual deficits; Z82.49 Family history of ischemic heart disease and other diseases of the circulatory system; Z79.82 Long term (current) use of aspirin; W22.8XXA Striking against or struck by other objects, initial encounter
CPT/HCPCS: 73030; 73630

== ENCOUNTER 2020-04-18 04:35 | Observation (INO) | payer MEDICARE ==
[2020-04-18] VITALS (10 sets, daily range): BP systolic 108–146; BP diastolic 65–80
[~2020-04-18] VITALS: Ht 145 cm; Wt 7.3 kg
[~2020-04-18 04:35] MED LIST changes: +ACET1TAB43 PO
[2020-04-18] MEDS ORDERED: NITROGLYCERIN 0.4 MG SL TABS BTL 25'S SL PRN ×2 (04:45→11:15)
[2020-04-18] MEDS ORDERED: ASPIRIN 81 MG CHEW (CHILDREN'S ASA) PO ONE (04:45)
--- NOTE | 2020-04-18 04:55 | NUR ---
ntg held after 1 dose d/t low bp. erp notified.
[2020-04-18 05:05] LABS: BASOPHILS # (AUTO) 0.1 10^3/uL (0.0-0.1); BASOPHILS % (AUTO) 1 % (0-10); EOSINOPHILS # (AUTO) 0.2 10^3/uL (0.0-0.3); EOSINOPHILS % (AUTO) 1 % (0-10); HEMATOCRIT 43 % (35-52); HEMOGLOBIN 13.8 g/dL (11.5-16.0); LYMPHOCYTES # (AUTO) 1.1 10^3/uL (1.0-4.0); LYMPHOCYTES % (AUTO) 10 % (12-44); MEAN CORPUSCULAR HEMOGLOBIN 30 pg (25-34); MEAN CORPUSCULAR HGB CONC 32 g/dL (32-36); MEAN CORPUSCULAR VOLUME 95 fL (80-99); MEAN PLATELET VOLUME 10.7 fL (9.0-12.2); MONOCYTES % (AUTO) 9 % (0-12); NEUTROPHILS # (AUTO) 8.8 10^3/uL (1.8-7.8); NEUTROPHILS % (AUTO) 79 % (42-75); PLATELET COUNT 247 10^3/uL (130-400); WHITE BLOOD COUNT 11.2 10^3/uL (4.3-11.0)
--- NOTE | 2020-04-18 05:08 | ED Chest Pain ---
General Chief Complaint: Chest Pain Stated Complaint: CP Nursing Triage Note: stabbing chest pain x2hrs Nursing Sepsis Screen: No Definite Risk Source: patient (LIMITED HISTORIAN), old records (ALL PMH IS FROM OLD CHART) (PERCY RUBIO DO) History of Present Illness Date Seen by Provider: Apr 18, 2020 Time Seen by Provider: 04:40 Initial Comments PT ARRIVES VIA POV FROM HOME, NEEDS WHEELCHAIR WITH ASSIST ON ARRIVAL C/O SHARP MID CHEST PAIN THAT BEGAN 1 1/2-2 HOURS AGO WOKE UP WITH PAIN --RATES PAIN 9/10 NO RADIATION OF PAIN NOTHING WORSENS OR IMPROVES PAIN STATES SHE IS ALWAYS A LITTLE SHORT OF BREATH, AND IS NOT DIFFERENT THAN NORMAL NO COUGH, NO FEVER OR RECENT ILLNESS DENIES HISTORY OF SIMILAR, AND DENIES ANY PRIOR CARDIAC PROBLEMS PT FELL DOWN STEPS AT HOME AND FRACTURED HER RIGHT HUMERUS AND LEFT FOOT ON 04/14/20--IS WEARING A SLING ON RIGHT ARM, AND WEARING A WALKING BOOT ON RIGHT FOOT. 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 PT DOES NOT USE ANY INHALERS OR HAVE HOME O2 PT IS ON PLAVIX AND ASPIRIN PCP: [facility] [place] PIPELINE: DR. ALVA GREEN END MAN: DR. BLAND (PERCY RUBIO DO) Allergies and Home Medications Allergies Coded Allergies: Iodinated Contrast Media (Verified Allergy, Intermediate, Nausea, 08/06/19) N/V CONFUSION fluticasone (Verified Allergy, Unknown, RASH, 03/21/18) Home Medications Acetaminophen with Codeine 1 Each Tablet, 1 EACH PO Q4H PRN for PAIN-MODERATE, (Reported) Acetaminophen with Codeine 1 Each Tablet, 1 EACH PO Q4H PRN for PAIN-MODERATE (5-7) Prescribed by: ULISSES GARDNER on 04/14/20 1317 Aspirin 81 Mg Tab.chew, 81 MG PO DAILY, (Reported) Celecoxib 100 Mg Capsule, 100 MG PO BID, (Reported) Clopidogrel Bisulfate 75 Mg Tablet, 75 MG PO DAILY, (Reported) Dicyclomine HCl 20 Mg Tablet, 20 MG PO TIDAC, (Reported) L.acidoph & Paracasei,B.lactis 1 Each Capsule, 1 EACH PO HS, (Reported) Levothyroxine Sodium 88 Mcg Tablet, 88 MCG PO DAILY Prescribed by: HANSEL HARRISON on 03/23/18 1535 Lisinopril 10 Mg Tablet, 10 MG PO HS, (Reported) Pantoprazole Sodium 40 Mg Tablet.dr, 40 MG PO DAILY Prescribed by: HANSEL HARRISON on 01/30/17 1325 Potassium Gluconate 99 Mg Tablet, 99 MG PO DAILY, (Reported) Primidone 250 Mg Tablet, 250 MG PO HS, (Reported) Primidone 50 Mg Tablet, 25 MG PO BID, (Reported) Propranolol HCl 20 Mg Tablet, 20 MG PO BID, (Reported) Simvastatin 40 Mg Tablet, 40 MG PO HS, (Reported) Patient Home Medication List Home Medication List Reviewed: Yes (CHRISTOPHER PAUL) Review of Systems Review of Systems Constitutional: no symptoms reported; No chills, No diaphoresis, No dizziness, No fever EENTM: No Symptoms Reported Respiratory: See HPI; Denies Cough Cardiovascular: See HPI, Chest Pain; Denies Lightheadedness, Denies Palpitations, Denies Syncope Gastrointestinal: No Symptoms Reported; Denies Abdominal Pain, Denies Nausea, Denies Vomiting Genitourinary: No Symptoms Reported Musculoskeletal: see HPI Skin: no symptoms reported Psychiatric/Neurological: No Symptoms Reported; Denies Headache, Denies Numbness, Denies Paresthesia; Tremors (HAS CHRONIC TREMORS); Denies Weakness Endocrine: No Symptoms Reported Hematologic/Lymphatic: No Symptoms Reported (PERCY RUBIO DO) Past Wxbmgmz-Wlpres-Hprdia Hx Past Med/Social Hx: Reviewed and Corrections made (PERCY RUBIO DO) Patient Social History Alcohol Use: Denies Use Smoking Status: Current Everyday Smoker Type Used: Cigarettes 2nd Hand Smoke Exposure: No Recent Infectious Disease Expo: No Recent Hopitalizations: No (PERCY RUBIO DO) Immunizations Up To Date Tetanus Booster (TDap): Unknown Date of Pneumonia Vaccine: Jan 21, 2015 Date of Influenza Vaccine: Feb 04, 2019 (PERCY RUBIO DO) Seasonal Allergies Seasonal Allergies: No (PERCY RUBIO DO) Past Medical History Surgeries: Yes (CARDIAC CATH; HYST/BSO-2 DIFFERENT SURGERIES; SURGERY FOR PROLAPSED BLADDER) Adenoidectomy, Bladder Surgery, Cardiac, Hysterectomy, Oophorectomy, Thyroidectomy, Tonsillectomy Respiratory: Yes (LUNG NODULE-S/P BRONCHOSCOPY-NO EVIDENCE OF MALIGNANCY) COPD Currently Using CPAP: No Currently Using BIPAP: No Cardiac: Yes (L ICA COMPLETE OCCLUSION;MODERATE R ICA DZ;MODERATE PAD-LEGS;MILD CAD;RBBB) Coronary Artery Disease, High Cholesterol, Hypertension, Peripheral Vascular Neurological: Yes (TRANSIENT VISION LOSS WITH STROKES/TIA'S/? AMUROSIS FUGAX ? 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 History: Hysterectomy, Menopausal Sexually Transmitted Disease: No HIV/AIDS: No Genitourinary: Yes (SURGERY FOR PROLAPSED BLADDER) Kidney Stones Gastrointestinal: Yes (GI BLEED 2016) Colitis, Gastroesophageal Reflux, Gastrointestinal Bleed, Diverticulosis, Hemorrhoids, Esophagitis, Ulcer, Irritable Bowel Musculoskeletal: Yes (R HUMERUS FX & R FOOT FX 04/14/20) Degenerate Disk Disease, Arthritis, Back Injury, Chronic Back Pain Endocrine: Yes (THYROID CANCER-S/P THYROIDECTOMY 03/23/18) Hypothyroidsim HEENT: Yes (POOR DENTITION) Loss of Vision: Bilateral Hearing Impairment: Denies Cancer: Yes Thyroid Did You Recieve Any Treatments: Yes What Type of Treatment Did You: Surgical Intervention THYROIDECTOMY 03/23/18 Psychosocial: No Integumentary: No Blood Disorders: No Adverse Reaction/Blood Tranf: No (N/A) (PERCY RUBIO DO) Family Medical History Cardiovascular disease 19 FATHER ( at 73 with mi) Completed stroke 19 MOTHER ( at 83 complications of stroke) CAD Over 55 Years Old SOCIAL HISTORY: -ETOH--DENIES USE -DRUGS--DENIES USE -SMOKES 1 PPD PAST SURGICAL HISTORY: -[id number]/28/18 FOR NODULES- + FOR CARCINOMA -BRONCHOSCOPY 11/2017 FOR LUNG MASS--NEGATIVE FOR MALIGNANCY -COLONOSCOPY 06/2016--COLITIS, DIVERTICULITIS, HEMORRHOIDS -EGD 01/2017--GASTRIC AND DUODENAL ULCERS, ESOPHAGITIS -CARDIAC CATH 07/2014--MILD DISEASE, NO INTERVENTION -STRESS TEST 2017--NORMAL -PERIPHERAL ANGIOGRAM 08/06/19--MODERATE DISEASE IN BOTH LEGS, NO INTERVENTION -HYSTERECTOMY /BSO--2 SURGERIES -SURGERY FOR PROLAPSED BLADDER -TONSILLECTOMY/ADENOIDECTOMY (PERCY RUBIO DO) Physical Exam Vital Signs Vital Signs - First Documented (HUMBERTO,CHRISTOPHER J) Vital Signs Capillary Refill : Less Than 3 Seconds (PERCY RUBIO DO) Height, Weight, BMI Height: 4'10.00" Weight: 140lbs. 0.0oz. 63.048381ts; 34.00 BMI Method:Stated General Appearance: No Apparent Distress, WD/WN, Other (MILDLY DYSPNEIC; RIGHT ARM IN SLING, RIGHT FOOT IN WALKING BOOT) HEENT: Other (POOR DENTITION) Neck: Full Range of Motion, Normal Inspection, Non Tender, Supple Respiratory: Normal Breath Sounds, No Accessory Muscle Use, No Respiratory Distress, Other (MARKED TENDERNESS TO MID STERNUM) Cardiovascular: Regular Rate, Rhythm, No JVD, No Murmur, Normal Peripheral P ulses Gastrointestinal: Non Tender, Soft Extremity: Normal Capillary Refill, Other (DIFFUSE SWELLING TO RIGHT ARM, WITH BRUISING TO UPPER ARM AND RIGHT UPPER CHEST. SWELLING TO RIGHT LOWER LEG AND FOOT. DISTAL MOTOR/SENSORY/VASCULAR INTACT. 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 Norm as Tested Skin: Normal Color, Warm/Dry, Ecchymosis (PERCY RUBIO DO) Progress/Results/Core Measures Results/Orders Lab Results Laboratory Tests Test 04/18/20 04:48 Range/Units White Blood Count 11.2 H 4.3-11.0 10^3/uL Red Blood Count 4.54 3.80-5.11 10^6/uL Hemoglobin 13.8 11.5-16.0 g/dL Hematocrit 43 35-52 % Mean Corpuscular Volume 95 80-99 fL Mean Corpuscular Hemoglobin 30 25-34 pg Mean Corpuscular Hemoglobin Concent 32 32-36 g/dL Red Cell Distribution Width 16.4 H 10.0-14.5 % Platelet Count 247 130-400 10^3/uL Mean Platelet Volume 10.7 9.0-12.2 fL Immature Granulocyte % (Auto) 0 % Neutrophils (%) (Auto) 79 H 42-75 % Lymphocytes (%) (Auto) 10 L 12-44 % Monocytes (%) (Auto) 9 0-12 % Eosinophils (%) (Auto) 1 0-10 % Basophils (%) (Auto) 1 0-10 % Neutrophils # (Auto) 8.8 H 1.8-7.8 10^3/uL Lymphocytes # (Auto) 1.1 1.0-4.0 10^3/uL Monocytes # (Auto) 1.0 0.0-1.0 10^3/uL Eosinophils # (Auto) 0.2 0.0-0.3 10^3/uL Basophils # (Auto) 0.1 0.0-0.1 10^3/uL Immature Granulocyte # (Auto) 0.1 0.0-0.1 10^3/uL Prothrombin Time 13.0 12.2-14.7 SEC INR Comment 0.9 0.8-1.4 Activated Partial Thromboplast Time 31 24-35 SEC Sodium Level 137 135-145 MMOL/L Potassium Level 4.3 3.6-5.0 MMOL/L Chloride Level 101 98-107 MMOL/L Carbon Dioxide Level 24 21-32 MMOL/L Anion Gap 12 5-14 MMOL/L Blood Urea Nitrogen 11 7-18 MG/DL Creatinine 0.77 0.60-1.30 MG/DL Estimat Glomerular Filtration Rate > 60 BUN/Creatinine Ratio 14 Glucose Level 110 H 70-105 MG/DL Calcium Level 9.0 8.5-10.1 MG/DL Corrected Calcium 9.2 8.5-10.1 MG/DL Magnesium Level 2.2 1.6-2.4 MG/DL Total Bilirubin 0.5 0.1-1.0 MG/DL Aspartate Amino Transf (AST/SGOT) 71 H 5-34 U/L Alanine Aminotransferase (ALT/SGPT) 18 0-55 U/L Alkaline Phosphatase 90 40-136 U/L Total Creatine Kinase 35 29-168 U/L Creatine Kinase MB 1.0 <6.6 NG/ML Myoglobin 33.8 10.0-92.0 NG/ML Troponin I < 0.028 <0.028 NG/ML B-Type Natriuretic Peptide 160.4 H <100.0 PG/ML Total Protein 6.8 6.4-8.2 GM/DL Albumin 3.8 3.2-4.5 GM/DL Amylase Level 40 25-125 U/L Lipase 17 8-78 U/L (CHRISTOPHER PAUL) My Orders Orders - CHRISTOPHER PAUL Fentanyl Injection (Sublimaze Injection (04/18/20 07:00) Ondansetron Injection (Zofran Injectio (04/18/20 07:30) Ondansetron Injection (Zofran Injectio (04/18/20 07:19) (CHRISTOPHER PAUL) Medications Given in ED Current Medications Medications Dose Ordered Sig/Tobias Route Start Time Stop Time Status Last Admin Dose Admin Aspirin 324 mg ONCE ONCE PO 04/18/20 04:45 04/18/20 04:47 DC 04/18/20 04:50 324 MG Fentanyl Citrate 75 mcg ONCE ONCE IVP 04/18/20 07:00 04/18/20 07:01 DC 04/18/20 07:02 75 MCG Methylprednisolone Sodium Succinate 125 mg ONCE ONCE IVP 04/18/20 06:15 04/18/20 06:16 DC 04/18/20 06:16 125 MG Nitroglycerin 0.4 mg UD PRN SL 04/18/20 04:45 04/18/20 11:03 DC 04/18/20 04:50 0.4 MG Ondansetron HCl 4 mg ONCE ONCE IVP 04/18/20 07:30 04/18/20 07:31 DC 04/18/20 07:27 4 MG (CHRISTOPHER PAUL) Vital Signs/I&O 04/18/20 04/18/20 04:42 04:42 Temp 36.2 Pulse 68 Resp 20 B/P (MAP) 161/73 (102) Pulse Ox 91 O2 Delivery Room Air Room Air (CHRISTOPHER PAUL) Blood Pressure Mean: 102 Progress Progress Note : Progress Note GIVEN ASPIRIN AND NTG X1--PAIN DOWN TO 3-4/10, BUT BP DROPPED SO FURTHER NTG HELD. CHEST IS NOW VERY MILDLY TENDER GIVEN IV FLUIDS FOR PERSISTENT HYPOTENSION AFTER NTG O2 SAT 91-92/% ON ROOM AIR--UP TO 100% ON 2L/NC AND PT IS NO LONGER DYSPNEIC. PT HAS HAD IV CONTRAST MULTIPLE TIMES, AND HAS NOT HAD ANY PROBLEMS LONG SHE IS PRE-TREATED WITH STEROIDS, INCLUDING HAVING A PERIPHERAL ANGIOGRAM DONE IN THE LAST YEAR. 0600--CARE TURNED OVER TO DR. PAUL (PERCY RUBIO DO) Progress Note #1: Time: 06:21 Progress Note Assumed care of the patient at shift change. I agree with above documented physical exam and history. Patient does have significant musculoskeletal problems in the region of her right chest pain. Her pain is reproducible by direct palpation of her right anterior chest. Fractures, musculoskeletal, less likely blood clot, cardiovascular are all very good possibilities. Initial troponin and EKG are unremarkable. Plan to get a CT angiogram. In the past she was treated with prednisone successfully and had no problems tolerating IV contrast. We will give her 40 mg prednisone today and 1 tablet tomorrow. Patient did derive significant benefit from nitroglycerin pain going from a 9 down to a 3. Her blood pressure also takes that she has been given a liter of fluids. Her blood pressure has already improved 110. She was also mildly hypoxic with a oxygen sat of 90 to 91% on arrival on room air. She does not routinely need supplemental oxygen. She was 100% on 2 L so we turned it off and she is sitting around 94%. She has a strong history of COPD followed by Dr. Bland. She continues to smoke historically. She has a significant history of vasculopathy. The patient states she has a left lung nodule that was noted and biopsied and found to be benign per Dr. Bland. Progress Note #2: Time: 07:19 Progress Note The patient had a difficult time with pain on attempting a CTA so we gave her some fentanyl 75 mcg and had to put her back on the oxygen at 2 L as her sats to get down to 91% on room air after fentanyl. Her blood pressure tolerated well with a current blood pressure of 106/65. Her pain significantly improved from 9 out of 10. She is going to rest for a little bit before we reattempt to go back down to CT. Progress Note #3: Time: 09:37 Progress Note Patient is sleeping softly with oxygen saturations of 97% on 2 L, nonlabored. She is ready to go to CT however there has been some delays related to a terminal clean of the CT room and CT staff is aware of her and will come get her as soon as possible. (CHRISTOPHER PAUL) Initial ECG Impression Date: Apr 18, 2020 Initial ECG Impression Time: 04:40 Initial ECG Rate: 62 Initial ECG Rhythm: Normal Sinus (RBBB) Initial ECG Comparisson: Unchanged (PERCY RUBIO DO) Diagnostic Imaging Comments CXR--RIGHT HUMERUS FRACTURE, OTHERWISE NO ACUTE PROCESS, PENDING RADIOLOGIST REVIEW Reviewed: Reviewed by Me (PERCY RUBIO DO) Diagonstic Imaging: Xray Comments NAME: YAMIL RAJAN REC#: [id number] PT STATUS: REG ER : 1945 PHYSICIAN: PERCY RUBIO DO ADMIT DATE: 04/18/20/ER Draft Date of Exam:04/18/20 CHEST 1 VIEW, AP/PA ONLY INDICATION: Chest pain, right humerus fracture EXAMINATION: Chest 04/18/2020 FINDINGS: There is a right humerus fracture which is stable since radiographs from 04/14/2020. The chest demonstrates vague increased densities at the right lung base which could be atelectasis with infiltrate not excluded. There is a questionable nodule in the left midlung periphery. The heart and pulmonary vasculature unremarkable. No effusions or pneumothorax. IMPRESSION: 1. Atelectasis versus infiltrate at the right lung base 2. Question nodule in the left midlung periphery. This could be better characterized with CT imaging. Dictated on workstation # [id number] Dict: 04/18/20 0622 Trans: 04/18/20 0626 MADIE [id number] Interpreted by: ANDRE HUGGINS MD Electronically signed by: Diagonstic Imaging: CT (With IV contrast) Plain Films/CT/US/NM/MRI: chest Comments NAME: YAMIL RAJAN [facility] REC#: [id number] PT STATUS: REG ER : 1945 PHYSICIAN: PERCY RUBIO DO ADMIT DATE: 04/18/20/ER Signed Date of Exam:04/18/20 CT ANGIO CHEST W PROCEDURE: CT angiography of the chest with contrast. TECHNIQUE: Multiple contiguous axial images were obtained through the chest after uneventful bolus administration of intravenous contrast. 3D reconstructed CTA MIP acquisitions were also performed. Auto Exposure Controls were utilized during the CT exam to meet ALARA standards for radiation dose reduction. INDICATION: Suspected pulmonary embolus. Chest pain. Abnormal findings on recent chest x-ray. EXAMINATION: CT angiogram of the chest 04/18/2020. Correlation to radiographs from the same date. FINDINGS: There are slightly coarsened interstitial markings bilaterally possibly due to early edema. There is a nodule within the posterior border of the left upper lobe which measures 1.5 cm in greatest dimension suspicious for carcinoma. Atelectasis noted at both lung bases. There are no significant effusions. There are no central or proximal segmental pulmonary emboli. Atherosclerotic disease is seen along the aorta. There is no pericardial effusion. There are scattered minimally prominent lymph nodes within the mediastinum. Upper abdomen demonstrates nonobstructive stones in the left kidney. Hypodensities in the kidneys poorly characterized without contrast with a hyperdense area in the posterior border of the left kidney noncystic in appearance. A solid mass is not excluded. Gallbladder slightly distended but no surrounding inflammation is appreciated. There is likely hyperplasia of the adrenal glands. Several compression deformities within the mid thoracic spine age-indeterminate. There is sclerosis within several of the vertebral bodies in the mid and upper thoracic spine which could be due to degenerative disease with a metastatic process not excluded. IMPRESSION: 1. Mass in the left upper lobe, carcinoma should be clinically excluded. Remaining changes throughout the lungs demonstrate either coarsened chronic interstitial change versus mild edema, correlate with symptoms. 2. No pulmonary emboli. 3. Sclerotic areas within the mid and upper thoracic spine with age indeterminant compression deformities also noted. The sclerosis could be due to degenerative disease with metastatic process not excluded. 4. Lesion in the left posterior kidney nonspecific. A solid mass not excluded without contrast and dedicated nonemergent imaging of the kidneys with and without contrast recommended. Dictated by: Dictated on workstation # [id number] Dict: 04/18/20 1007 Trans: 04/18/20 1021 [facility] [id number] Interpreted by: ANDRE HUGGINS MD Electronically signed by: ANDRE HUGGINS MD 04/18/20 1021 Reviewed: Reviewed by Me (CHRISTOPHER PAUL) Departure Communication (Admissions) Time/Spoke to Admitting Phy: 10:30 Discussed the case with Dr. Arcos and he agrees to observe the patient with cardiac consultation Time/Spoke to Consulting Phy: 10:20 Discussed the case with Dr. Alva and he agrees with cardiac consultation. (CHRISTOPHER PAUL) Impression Primary Impression: Unstable angina Disposition: ADMITTED INPATIENT Condition: Stable Admissions Decision to Admit Reason: Admit from ER (General) Decision to Admit/Date: Apr 18, 2020 Time/Decision to Admit Time: 07:00 (CHRISTOPHER PAUL) Departure-Patient Inst. [facility]: [facility] [place]) Primary Care Physician DYA HUGHES (Family) Primary Care Physician PERCY RUBIO DO Apr 18, 2020 05:08 CHRISTOPHER PAUL Apr 18, 2020 06:23
[2020-04-18 05:17] LABS: ALBUMIN 3.8 GM/DL (3.2-4.5); CHLORIDE 101 MMOL/L (98-107); INR 0.9 (0.8-1.4); POTASSIUM 4.3 MMOL/L (3.6-5.0); SODIUM 137 MMOL/L (135-145)
[2020-04-18 05:18] LABS: AMYLASE 40 U/L (25-125)
[2020-04-18 05:19] LABS: GLUCOSE 110 MG/DL (70-105); TOTAL PROTEIN 6.8 GM/DL (6.4-8.2)
[2020-04-18 05:20] LABS: CARBON DIOXIDE 24 MMOL/L (21-32)
[2020-04-18 05:21] LABS: BILIRUBIN,TOTAL 0.5 MG/DL (0.1-1.0)
[2020-04-18 05:23] LABS: ALKALINE PHOSPHATASE 90 U/L (40-136); CREATININE SERUM 0.77 MG/DL (0.60-1.30); GFR ESTIMATED > 60
[2020-04-18 05:24] LABS: BUN/CREATININE RATIO 14
[2020-04-18 05:26] LABS: ALANINE AMINOTRANSFERASE 18 U/L (0-55); MAGNESIUM 2.2 MG/DL (1.6-2.4)
[2020-04-18 05:27] LABS: CREATINE KINASE 35 U/L (29-168); LIPASE 17 U/L (8-78)
[2020-04-18] MEDS ORDERED: NS IV 1000 ML 1,000 ML IV SCH (06:00)
[2020-04-18] MEDS ORDERED: methylPREDNISolone 125 MG (Solu-MEDROL) VIAL IVP ONE (06:15)
--- NOTE | 2020-04-18 06:26 | Diagnostic Imaging Report ---
INDICATION: Chest pain, right humerus fracture EXAMINATION: Chest 04/18/2020 FINDINGS: There is a right humerus fracture which is stable since radiographs from 04/14/2020. The chest demonstrates vague increased densities at the right lung base which could be atelectasis with infiltrate not excluded. There is a questionable nodule in the left midlung periphery. The heart and pulmonary vasculature unremarkable. No effusions or pneumothorax. IMPRESSION: 1. Atelectasis versus infiltrate at the right lung base 2. Question nodule in the left midlung periphery. This could be better characterized with CT imaging. Dictated by: Dictated on workstation # [id number]
[2020-04-18] MEDS ORDERED: fentaNYL INJECTION 100 MCG/2 ML AMP IVP ONE (07:00)
[2020-04-18] MEDS ORDERED: ONDANSETRON 4 MG/2 ML (SDV) Z0FRAN ONE (07:19)
[2020-04-18] MEDS ORDERED: ONDANSETRON 4 MG/2 ML (SDV) Z0FRAN IVP ONE (07:30)
[2020-04-18] MEDS ORDERED: IOHEXOL 350 MG/ML 100 ML (OMNIPAQUE 350) VIAL IV ONE (09:15)
[2020-04-18] MEDS ORDERED: HOLD METFORMIN - RECEIVED CONTRAST 20 ML VIAL IV SCH (09:15)
[2020-04-18] MEDS ORDERED: NS 100 ML (IVPB) BAG IV ONE (09:15)
--- NOTE | 2020-04-18 10:17 | Diagnostic Imaging Report ---
PROCEDURE: CT angiography of the chest with contrast. TECHNIQUE: Multiple contiguous axial images were obtained through the chest after uneventful bolus administration of intravenous contrast. 3D reconstructed CTA MIP acquisitions were also performed. Auto Exposure Controls were utilized during the CT exam to meet ALARA standards for radiation dose reduction. INDICATION: Suspected pulmonary embolus. Chest pain. Abnormal findings on recent chest x-ray. EXAMINATION: CT angiogram of the chest 04/18/2020. Correlation to radiographs from the same date. FINDINGS: There are slightly coarsened interstitial markings bilaterally possibly due to early edema. There is a nodule within the posterior border of the left upper lobe which measures 1.5 cm in greatest dimension suspicious for carcinoma. Atelectasis noted at both lung bases. There are no significant effusions. There are no central or proximal segmental pulmonary emboli. Atherosclerotic disease is seen along the aorta. There is no pericardial effusion. There are scattered minimally prominent lymph nodes within the mediastinum. Upper abdomen demonstrates nonobstructive stones in the left kidney. Hypodensities in the kidneys poorly characterized without contrast with a hyperdense area in the posterior border of the left kidney noncystic in appearance. A solid mass is not excluded. Gallbladder slightly distended but no surrounding inflammation is appreciated. There is likely hyperplasia of the adrenal glands. Several compression deformities within the mid thoracic spine age-indeterminate. There is sclerosis within several of the vertebral bodies in the mid and upper thoracic spine which could be due to degenerative disease with a metastatic process not excluded. IMPRESSION: 1. Mass in the left upper lobe, carcinoma should be clinically excluded. Remaining changes throughout the lungs demonstrate either coarsened chronic interstitial change versus mild edema, correlate with symptoms. 2. No pulmonary emboli. 3. Sclerotic areas within the mid and upper thoracic spine with age indeterminant compression deformities also noted. The sclerosis could be due to degenerative disease with metastatic process not excluded. 4. Lesion in the left posterior kidney nonspecific. A solid mass not excluded without contrast and dedicated nonemergent imaging of the kidneys with and without contrast recommended. Dictated by: Dictated on workstation # [id number]
--- NOTE | 2020-04-18 11:03 | NUR ---
YAMIL RAJAN admitted to room 404-1, with an admitting diagnosis of unstable angina, on 04/18/20 from ED via stretcher, accompanied by staff.YAMIL RAJAN introduced to surroundings, call light, bed controls, phone, TV, temperature control, lights, meal times, smoking policy, visitor policy, side rail policy, bathrooms and showers. Patient Rights given to patient in the handbook. YAMIL RAJAN verbalizes understanding that [facility] is not responsible for the loss or damage to any personal effects or valuables that are kept in the patients posession during their hospitalization. The following Patient Care Plans and discharge were discussed with the patient. YAMIL RAJAN verbalizes understanding of Interdisciplinary Patient Education. Patient was informed about the Rapid Response Team and its purpose.
[2020-04-18] MEDS ORDERED: ACETAMINOPHEN 325 MG TABLET PO PRN (11:15)
[2020-04-18] MEDS ORDERED: ONDANSETRON 4 MG/2 ML (SDV) Z0FRAN IV PRN (11:15)
[2020-04-18] MEDS ORDERED: fentaNYL INJECTION 100 MCG/2 ML AMP IV PRN (11:15)
[2020-04-18] MEDS ORDERED: APAP 300 MG/CODEINE 30 MG (TYLENOL #3) TAB PO PRN (11:15)
--- NOTE | 2020-04-18 15:05 | Consultation-Cardiology ---
HPI-Cardiology Cardiology Consultation: Date of Consultation 04/18/20 Time Seen by a Provider: 14:30 Date of Admission Attending Physician Wai Arcos MD Admitting Physician [place] Consulting Physician KIRBY ALVA MD,MA, FACP, FACC, FSCAI, CCDS HPI: Chief Complaint: CC: Chest discomfort HPI 75 yo woman who took a fall on 04/15/20 and injured the R arm, R chest and R foot. Went to ER that day. Has been diagnosed with fracture of R humerus and a bone of the R foot (R arm now in sling and R foot in brace). Has had some bruising over the R chest and R breast. R scapula is very sore. Has had R-sided chest discomfort that was worse this morning and she decided to come in to ER from where she was admitted cardiac eval. Review of Systems-Cardiology Review of Systems Constitutional: malaise, tiredness Eyes: No vision change Ears/Nose/Throat: No ear discharge, No nasal drainage, No recent hearing loss Respiratory: As described under HPI Cardiovascular: As described under HPI Gastrointestinal: No diarrhea, No nausea Genitourinary: No dysuria, No hematuria, No urine frequency changes Musculoskeletal: As describe under HPI Skin: No rash, No ulcerations Psychiatric/Neurological: No seizure, No focal weakness, No syncope Hematologic: No bleeding abnormalities ADE-Qzqfqm-Rucucu Hx Patient Social History Smoking Status: Current Everyday Smoker 2nd Hand Smoke Exposure: No Immunizations Up To Date Tetanus Booster (TDap): Unknown Date of Pneumonia Vaccine: Jan 21, 2015 Date of Influenza Vaccine: Dec 26, 2019 Past Medical History PMH As described under Assessment. Family Medical History Family Medical History: She reports her father had CAD and her mother had a CVA. Family History: Cardiovascular disease 19 FATHER ( at 73 with mi) Completed stroke 19 MOTHER ( at 83 complications of stroke) Allergies and Home Medications Allergies Coded Allergies: Iodinated Contrast Media (Verified Allergy, Intermediate, Nausea, 08/06/19) N/V CONFUSION fluticasone (Verified Allergy, Unknown, RASH, 03/21/18) Home Medications Acetaminophen with Codeine 1 Each Tablet, 1 EACH PO Q4H PRN for PAIN-MODERATE, (Reported) Acetaminophen with Codeine 1 Each Tablet, 1 EACH PO Q4H PRN for PAIN-MODERATE (5-7) Prescribed by: ULISSES GARDNER on 04/14/20 1317 Aspirin 81 Mg Tab.chew, 81 MG PO DAILY, (Reported) Celecoxib 100 Mg Capsule, 100 MG PO BID, (Reported) Clopidogrel Bisulfate 75 Mg Tablet, 75 MG PO DAILY, (Reported) Dicyclomine HCl 20 Mg Tablet, 20 MG PO TIDAC, (Reported) Payalacidoph & ParacaserossB.lactis 1 Each Capsule, 1 EACH PO HS, (Reported) Levothyroxine Sodium 88 Mcg Tablet, 88 MCG PO DAILY Prescribed by: HANSEL HARRISON on 03/23/18 1535 Lisinopril 10 Mg Tablet, 10 MG PO HS, (Reported) Pantoprazole Sodium 40 Mg Tablet.dr, 40 MG PO DAILY Prescribed by: HANSEL HARRISON on 01/30/17 1325 Potassium Gluconate 99 Mg Tablet, 99 MG PO DAILY, (Reported) Primidone 250 Mg Tablet, 250 MG PO HS, (Reported) Primidone 50 Mg Tablet, 25 MG PO BID, (Reported) Propranolol HCl 20 Mg Tablet, 20 MG PO BID, (Reported) Simvastatin 40 Mg Tablet, 40 MG PO HS, (Reported) Patient Home Medication List Home Medication List Reviewed: Yes Physical Exam-Cardiology Physical Exam Vital Signs/I&O 04/18/20 04/18/20 04/18/20 04/18/20 04:42 04:42 10:43 11:19 Temp 36.2 36.2 36.7 Pulse 68 66 68 Resp 20 20 16 B/P (MAP) 161/73 (102) 114/59 (102) 146/65 (92) Pulse Ox 91 93 90 O2 Delivery Room Air Room Air Nasal Cannula Nasal Cannula O2 Flow Rate 2.00 2.00 04/18/20 12:10 O2 Delivery Nasal Cannula O2 Flow Rate 1.00 Capillary Refill : Less Than 3 Seconds Constitutional: AAO x 3, well-developed, well-nourished HEENT: EOMI, hearing is well preserved; No xanthelasmas are seen Neck: carotid pulses are 2 + bilaterally, with good upstrokes Respiratory: No accessory muscle use; other (good bilat air entry) Cardiovascular: regular rate-rhythm, S1 and S2, systolic murmur (soft AVERY at card base), other (palp over R parasternal area reproduces the discomfort she has been admitted with ) Gastrointestinal: No tender; soft; No guarding, No rebound; audible bowel sounds Extremities: No clubbing, No cyanosis, No significant edema Neurologic/Psychiatric: oriented x 3, other (resting, coarse tremor present; moves all limbs equally. No motion attempted at R shoulder or R foot (recent injuries)) Skin: No rash on exposed areas, No ulcerations on exposed areas Data Review Labs Laboratory Tests 04/18/20 04:48: White Blood Count 11.2H, Red Blood Count 4.54, Hemoglobin 13.8, Hematocrit 43, Mean Corpuscular Volume 95, Mean Corpuscular Hemoglobin 30, Mean Corpuscular Hemoglobin Concent 32, Red Cell Distribution Width 16.4H, Platelet Count 247, Mean Platelet Volume 10.7, Immature Granulocyte % (Auto) 0, Neutrophils (%) (Auto) 79H, Lymphocytes (%) (Auto) 10L, Monocytes (%) (Auto) 9, Eosinophils (%) (Auto) 1, Basophils (%) (Auto) 1, Neutrophils # (Auto) 8.8H, Lymphocytes # (Auto) 1.1, Monocytes # (Auto) 1.0, Eosinophils # (Auto) 0.2, Basophils # (Auto) 0.1, Immature Granulocyte # (Auto) 0.1, Prothrombin Time 13.0, INR Comment 0.9, Activated Partial Thromboplast Time 31, Sodium Level 137, Potassium Level 4.3, Chloride Level 101, Carbon Dioxide Level 24, Anion Gap 12, Blood Urea Nitrogen 11, Creatinine 0.77, Estimat Glomerular Filtration Rate > 60, BUN/Creatinine Ratio 14, Glucose Level 110H, Calcium Level 9.0, Corrected Calcium 9.2, Magnesium Level 2.2, Total Bilirubin 0.5, Aspartate Amino Transf (AST/SGOT) 71H, Alanine Aminotransferase (ALT/SGPT) 18, Alkaline Phosphatase 90, Total Creatine Kinase 35, Creatine Kinase MB 1.0, Myoglobin 33.8, Troponin I < 0.028, B-Type Natriuretic Peptide 160.4H, Total Protein 6.8, Albumin 3.8, Amylase Level 40, Lipase 17 04/18/20 11:41: Troponin I < 0.028 A/P-Cardiology Assessment/Admission Diagnosis Chest discomfort w/o any evidence of ACS Recent (04/15/20) fall resulting in R humeral and R 5th metatarsal fracture and injury to the R rib cage CAD - Cardiac cath on 07-29-2014 which showed mild CAD, LVEF 60%, elevated LVEDP, indicating some degree of diastolic dysfunction of the LV likely r/t hypertensive cardiovascular disease. No significant MR - MPI of Mar 09, 2018 showed no evidence of any significant myocardial ischemia or infarction. LVEF 77%. 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 For this she has had a vascular surgical consultation with Dr Perez at [facility] was told that surgery was not an option. - CT angio of 06/28/18: 100% L ICA occlusion, mod dz of the R ICA (approx 60% on u/s) - Carotid u/s of 02/06/20: Occluded LICA, 60% PATTI H/o thyroidectomy for malignant thyroid nodules by Dr Harrison on 03/23/18 - also had radio active iodine tx following thyroidectomy (managed by Dr Haider) H/o pulm nodules that is being followed by Dr Bland DVT. Chronic mild R leg swelling, more on right. DVT diagnosed on R leg venous doppler of August 2016, completed 6 months of Eliquis. Normal R leg venous duplex on 10/10/16 GI bleed in early Jul, 2016, requiring transfusions - being managed by her PCP. Colonoscopy on 07-20-[address] 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
[2020-04-18] MEDS ORDERED: PATIENT MAY USE OWN MEDS, ALL MC SCH (15:45)
[2020-04-18] MEDS: PRIMIDONE 50 MG TAB (MYSOLINE) PO SCH (19:24)
[2020-04-18] MEDS: PRIMIDONE 250MG (MYSOLINE) TAB PO SCH (21:23)
[2020-04-18] MEDS: APAP 300 MG/CODEINE 30 MG (TYLENOL #3) TAB PO PRN (22:20)
[2020-04-19] VITALS (7 sets, daily range): BP systolic 106–135; BP diastolic 55–66
[2020-04-19 04:55] LABS: BASOPHILS % (AUTO) 0 % (0-10); EOSINOPHILS # (AUTO) 0.1 10^3/uL (0.0-0.3); EOSINOPHILS % (AUTO) 1 % (0-10); HEMATOCRIT 37 % (35-52); HEMOGLOBIN 11.8 g/dL (11.5-16.0); LYMPHOCYTES # (AUTO) 1.9 10^3/uL (1.0-4.0); LYMPHOCYTES % (AUTO) 22 % (12-44); MEAN CORPUSCULAR HEMOGLOBIN 30 pg (25-34); MEAN CORPUSCULAR HGB CONC 32 g/dL (32-36); MEAN CORPUSCULAR VOLUME 95 fL (80-99); MEAN PLATELET VOLUME 10.4 fL (9.0-12.2); MONOCYTES # (AUTO) 0.8 10^3/uL (0.0-1.0); MONOCYTES % (AUTO) 9 % (0-12); NEUTROPHILS # (AUTO) 5.8 10^3/uL (1.8-7.8); NEUTROPHILS % (AUTO) 68 % (42-75); PLATELET COUNT 209 10^3/uL (130-400); WHITE BLOOD COUNT 8.6 10^3/uL (4.3-11.0)
[2020-04-19 05:10] LABS: ALBUMIN 3.3 GM/DL (3.2-4.5); CHLORIDE 101 MMOL/L (98-107); POTASSIUM 4.3 MMOL/L (3.6-5.0); SODIUM 135 MMOL/L (135-145)
[2020-04-19 05:11] LABS: CALCIUM 8.4 MG/DL (8.5-10.1)
[2020-04-19 05:12] LABS: GLUCOSE 93 MG/DL (70-105); TRIGLYCERIDES 102 MG/DL (<150); VLDL CHOLESTEROL 20 MG/DL (5-40)
[2020-04-19 05:13] LABS: CARBON DIOXIDE 26 MMOL/L (21-32)
[2020-04-19 05:14] LABS: BILIRUBIN,TOTAL 0.3 MG/DL (0.1-1.0)
[2020-04-19 05:16] LABS: ALKALINE PHOSPHATASE 65 U/L (40-136); CREATININE SERUM 0.76 MG/DL (0.60-1.30); GFR ESTIMATED > 60
[2020-04-19 05:17] LABS: BUN/CREATININE RATIO 21; CHOLESTEROL 155 MG/DL (< 200)
[2020-04-19 05:18] LABS: HDL CHOLESTEROL 45 MG/DL (40-60)
[2020-04-19 05:19] LABS: ALANINE AMINOTRANSFERASE 16 U/L (0-55)
[2020-04-19] MEDS: APAP 300 MG/CODEINE 30 MG (TYLENOL #3) TAB PO PRN ×2 (05:49→17:22)
[2020-04-19] MEDS: LEVOTHYROXINE 88 MCG (LEVOTHORID) TAB PO SCH (05:49)
[2020-04-19] MEDS ORDERED: predniSONE 20 MG TAB PO SCH (07:00)
[2020-04-19] MEDS: lisINopril 10 MG (PRINIVIL) TABLET PO SCH (10:08)
[2020-04-19] MEDS: PANTOPRAZOLE 40 MG (PROTONIX) TAB PO SCH (10:08)
[2020-04-19] MEDS: PRIMIDONE 50 MG TAB (MYSOLINE) PO SCH ×2 (10:13→17:28)
[2020-04-19] MEDS: CLOPIDOGREL 75 MG (PLAVIX) TABLET PO SCH (10:14)
[2020-04-19] MEDS: ASPIRIN E.C. 81 MG (ECOTRIN) TAB PO SCH (10:14)
--- NOTE | 2020-04-19 11:08 | History & Physical-Hospitalist ---
History of Present Illness HPI/Chief Complaint PT ARRIVES VIA POV FROM HOME, NEEDS WHEELCHAIR WITH ASSIST ON ARRIVAL C/O SHARP MID CHEST PAIN THAT BEGAN 1 1/2-2 HOURS AGO WOKE UP WITH PAIN --RATES PAIN 9/10 NO RADIATION OF PAIN NOTHING WORSENS OR IMPROVES PAIN STATES SHE IS ALWAYS A LITTLE SHORT OF BREATH, AND IS NOT DIFFERENT THAN NORMAL NO COUGH, NO FEVER OR RECENT ILLNESS DENIES HISTORY OF SIMILAR, AND DENIES ANY PRIOR CARDIAC PROBLEMS PT FELL DOWN STEPS AT HOME AND FRACTURED HER RIGHT HUMERUS AND LEFT FOOT ON 04/14/20--IS WEARING A SLING ON RIGHT ARM, AND WEARING A WALKING BOOT ON RIGHT FOOT. 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 PT DOES NOT USE ANY INHALERS OR HAVE HOME O2 PT IS ON PLAVIX AND ASPIRIN Upon my arrival patient reports decreased right sided chest wall sounding pain at rest there is still aggravation of her pain with movement. She is in a sling on the right as well as an immobilizer boot for the right foot. She denies shortness of breath or diaphoresis. Date Seen 04/19/20 Time Seen by a Provider: 10:00 Attending Physician Srikanth Arcos MD [facility] Referring Physician Date of Admission Apr 18, 2020 at 07:45 Home Medications & Allergies Home Medications Reviewed patient Home Medication Reconciliation performed by pharmacy medication reconciliations waste handling technician and/or nursing. Patients Allergies have been reviewed. Allergies Allergies Coded Allergies Iodinated Contrast Media (Verified Allergy, Intermediate, Nausea, 08/06/19) N/V CONFUSION fluticasone (Verified Allergy, Unknown, RASH, 03/21/18) Past Pwspyvg-[id number]-[id number] Hx Past Med/Social Hx: Reviewed and Corrections made Patient Social History Alcohol Use: Denies Use Recreational Drug Use: No Smoking Status: Current Everyday Smoker Type Used: Cigarettes 2nd Hand Smoke Exposure: No Recent Foreign Travel: No Contact w/other who traveled: No Recent Hopitalizations: No Recent Infectious Disease Expo: No Immunizations Up To Date Tetanus Booster (TDap): Unknown Date of Pneumonia Vaccine: Jan 21, 2015 Date of Influenza Vaccine: Dec 26, 2019 Seasonal Allergies Seasonal Allergies: No Past Medical History Surgeries: Adenoidectomy, Bladder Surgery, Cardiac, Hysterectomy, Oophorectomy, Thyroidectomy, Tonsillectomy Respiratory: COPD Currently Using CPAP: No Currently Using BIPAP: No Cardiac: Coronary Artery Disease, High Cholesterol, Hypertension, Peripheral Vascular Neurological: Stroke, TIA Reproductive: Yes Sexually Transmitted Disease: No HIV/AIDS: No Female Reproductive Disorders: Denies Hysterectomy, Menopausal Genitourinary: Kidney Stones Gastrointestinal: Colitis, Gastroesophageal Reflux, Gastrointestinal Bleed, Diverticulosis, Hemorrhoids, Esophagitis, Ulcer, Irritable Bowel Musculoskeletal: Degenerate Disk Disease, Arthritis, Back Injury, Chronic Back Pain Endocrine: Hypothyroidsim Loss of Vision: Bilateral Hearing Impairment: Denies Cancer: Thyroid Did You Recieve Any Treatments: Yes What Type of Treatment Did You: Surgical Intervention Cancer: THYROIDECTOMY 03/23/18 History of Blood Disorders: No Adverse Reaction to Blood Hamm: No (N/A) Family History Cardiovascular disease 19 FATHER ( at 73 with mi) Completed stroke 19 MOTHER ( at 83 complications of stroke) CAD Over 55 Years Old SOCIAL HISTORY: -ETOH--DENIES USE -DRUGS--DENIES USE -SMOKES 1 PPD PAST SURGICAL HISTORY: -[id number]/28/18 FOR NODULES- + FOR CARCINOMA -BRONCHOSCOPY 11/2017 FOR LUNG MASS--NEGATIVE FOR MALIGNANCY -COLONOSCOPY 06/2016--COLITIS, DIVERTICULITIS, HEMORRHOIDS -EGD 01/2017--GASTRIC AND DUODENAL ULCERS, ESOPHAGITIS -CARDIAC CATH 07/2014--MILD DISEASE, NO INTERVENTION -STRESS TEST 2017--NORMAL -PERIPHERAL ANGIOGRAM 08/06/19--MODERATE DISEASE IN BOTH LEGS, NO INTERVENTION -HYSTERECTOMY /BSO--2 SURGERIES -SURGERY FOR PROLAPSED BLADDER -TONSILLECTOMY/ADENOIDECTOMY Review of Systems Constitutional: see HPI Physical Exam Physical Exam Vital Signs Vital Signs - First Documented 04/18/20 10:43 O2 Flow Rate 2.00 Capillary Refill : Less Than 3 SecondsLess Than 3 Seconds Height, Weight, BMI Height: 4'10.00" Weight: 140lbs. 0.0oz. [id number]; 34.00 BMI Method:Stated General Appearance: Mild Distress Respiratory: Chest Non Tender, Lungs Clear, Normal Breath Sounds, No Accessory Muscle Use, No Respiratory Distress Cardiovascular: Regular Rate, Rhythm, No Edema, No Gallop, No JVD, No Murmur, Normal Peripheral Pulses Gastrointestinal: Normal Bowel Sounds, No Organomegaly, No Pulsatile Mass, Non Tender, Soft Extremity: Other (Right shoulder and upper arm swelling radial pulses 2+ and symmetrical. Trace edema of the right lower extremity with immobilizer boot on toes warm no ecchymosis of the toes noted.) Results Results/Procedures Labs Laboratory Tests 04/18/20 04:48 04/19/20 04:47 Patient resulted labs reviewed. Assessment/Plan Admission Diagnosis A/P 1. Right sided chest wall pain likely referred from humeral head fracture from recent fall on the right. Continue conservative medical management. Patient has ruled out overnight for acute coronary syndrome. 2. History of coronary artery disease clinically appears to be stable Dr. Azevedo's help appreciated. 3. Due to age and underlying frailty with right proximal humeral fracture and right ankle fracture the patient after discussion is leaning toward jail placement for physical therapy we will consult director social in the morning to discuss further options. Admission Status: Inpatient Order (span 2 midnights) Reason for Inpatient Admission: See admission diagnosis Clinical Quality Measures AMI/AHF: ASA po Prior to arrival: SRIKANTH Beck MD Apr 19, 2020 11:07
[2020-04-19] MEDS ORDERED: polyethylene glycoL POWDER 17 GM (MIRALAX) PACK ONE (17:28)
--- NOTE | 2020-04-19 19:41 | Progress Note - Cardiology ---
Cardiology SOAP Progress Note Subjective: No new symptoms Persistent R chest wall and R shoulder and R upper arm pain since trauma No shortness of breath No focal weakness Wants tele off Denies swelling Objective: I&O/Vital Signs 04/19/20 04/19/20 04/19/20 04/19/20 08:00 08:00 12:00 12:49 Temp 36.2 35.8 Pulse 71 73 67 Resp 18 20 B/P (MAP) 119/57 (77) 135/63 (87) Pulse Ox 90 90 O2 Delivery Room Air Room Air Room Air 04/19/20 15:22 Temp 35.5 Pulse 78 Resp 20 B/P (MAP) 130/58 (82) Pulse Ox 93 O2 Delivery Room Air 04/19/20 00:00 Intake Total 1680 ml Output Total 200 ml Balance 1480 ml Weight (Pounds): 140 Weight (Ounces): 0.0 Weight (Calculated Kilograms): [id number] Constitutional: AAO x 3, well-developed, well-nourished Respiratory: No accessory muscle use; other (good bilat air entry) Cardiovascular: regular rate-rhythm, S1 and S2, systolic murmur (soft AVERY at card base), other (palp over R parasternal area reproduces the discomfort she has been admitted with ) Gastrointestional: No tender; soft; No guarding, No rebound; audible bowel sounds Extremities: No clubbing, No cyanosis, No significant edema Neurologic/Psychiatric: oriented x 3, other (resting, coarse tremor present; moves all limbs equally. No motion attempted at R shoulder or R foot (recent injuries)) Skin: No rash on exposed areas, No ulcerations on exposed areas Results/Procedures: Labs Laboratory Tests 04/19/20 04:47: White Blood Count 8.6, Red Blood Count 3.93, Hemoglobin 11.8, Hematocrit 37, Mean Corpuscular Volume 95, Mean Corpuscular Hemoglobin 30, Mean Corpuscular Hemoglobin Concent 32, Red Cell Distribution Width 16.3H, Platelet Count 209, Mean Platelet Volume 10.4, Immature Granulocyte % (Auto) 1, Neutrophils (%) (Auto) 68, Lymphocytes (%) (Auto) 22, Monocytes (%) (Auto) 9, Eosinophils (%) (Auto) 1, Basophils (%) (Auto) 0, Neutrophils # (Auto) 5.8, Lymphocytes # (Auto) 1.9, Monocytes # (Auto) 0.8, Eosinophils # (Auto) 0.1, Basophils # (Auto) 0.0, Immature Granulocyte # (Auto) 0.0, Sodium Level 135, Potassium Level 4.3, Chloride Level 101, Carbon Dioxide Level 26, Anion Gap 8, Blood Urea Nitrogen 16, Creatinine 0.76, Estimat Glomerular Filtration Rate > 60, BUN/Creatinine Ratio 21, Glucose Level 93, Calcium Level 8.4L, Corrected Calcium 9.0, Total Bilirubin 0.3, Aspartate Amino Transf (AST/SGOT) 32, Alanine Aminotransferase (ALT/SGPT) 16, Alkaline Phosphatase 65, Total Protein 6.0L, Albumin 3.3, Triglycerides Level 102, Cholesterol Level 155, LDL Cholesterol Direct 97, VLDL Cholesterol 20, HDL Cholesterol 45 Laboratory Tests 04/18/20 04:48 04/19/20 04:47 A/P: Assessment: Chest discomfort w/o any evidence of ACS, non-cardiac, likely musculoskeletal following recent trauma Recent (04/15/20) fall resulting in R humeral and R 5th metatarsal fracture and injury to the R rib cage CAD - Cardiac cath on 07-29-2014 which showed mild CAD, LVEF 60%, elevated LVEDP, indicating some degree of diastolic dysfunction of the LV likely r/t hypertensive cardiovascular disease. No significant MR - MPI of Mar 09, 2018 showed no evidence of any significant myocardial ischemia or infarction. LVEF 77%. 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 For this she has had a vascular surgical consultation with Dr Perez at [facility] was told that surgery was not an option. - CT angio of 06/28/18: 100% L ICA occlusion, mod dz of the R ICA (approx 60% on u/s) - Carotid u/s of 02/06/20: Occluded LICA, 60% PATTI H/o thyroidectomy for malignant thyroid nodules by Dr Nguyen on 03/23/18 - also had radio active iodine tx following thyroidectomy (managed by Dr Haider) H/o pulm nodules that is being followed by Dr Bland DVT. Chronic mild R leg swelling, more on right. DVT diagnosed on R leg venous doppler of August 2016, completed 6 months of Eliquis. Normal R leg venous duplex on 10/10/16 GI bleed in early Jul, 2016, requiring transfusions - being managed by her PCP. Colonoscopy on 07-20-[address] 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
[2020-04-19] MEDS ORDERED: polyethylene glycoL POWDER 17 GM (MIRALAX) PACK PO SCH (21:00)
[2020-04-19] MEDS: PRIMIDONE 250MG (MYSOLINE) TAB PO SCH (21:06)
[2020-04-20] MEDS: LEVOTHYROXINE 88 MCG (LEVOTHORID) TAB PO SCH (05:15)
[2020-04-20] MEDS: APAP 300 MG/CODEINE 30 MG (TYLENOL #3) TAB PO PRN ×2 (05:16→14:24)
[2020-04-20 05:59] LABS: BASOPHILS # (AUTO) 0.1 10^3/uL (0.0-0.1); BASOPHILS % (AUTO) 1 % (0-10); EOSINOPHILS # (AUTO) 0.1 10^3/uL (0.0-0.3); EOSINOPHILS % (AUTO) 1 % (0-10); HEMATOCRIT 39 % (35-52); HEMOGLOBIN 12.5 g/dL (11.5-16.0); LYMPHOCYTES # (AUTO) 1.6 10^3/uL (1.0-4.0); LYMPHOCYTES % (AUTO) 19 % (12-44); MEAN CORPUSCULAR HEMOGLOBIN 30 pg (25-34); MEAN CORPUSCULAR HGB CONC 32 g/dL (32-36); MEAN CORPUSCULAR VOLUME 95 fL (80-99); MEAN PLATELET VOLUME 10.3 fL (9.0-12.2); MONOCYTES # (AUTO) 0.8 10^3/uL (0.0-1.0); MONOCYTES % (AUTO) 9 % (0-12); NEUTROPHILS % (AUTO) 69 % (42-75); PLATELET COUNT 211 10^3/uL (130-400); WHITE BLOOD COUNT 8.7 10^3/uL (4.3-11.0)
[2020-04-20 06:15] LABS: ALBUMIN 3.7 GM/DL (3.2-4.5); CHLORIDE 99 MMOL/L (98-107); SODIUM 137 MMOL/L (135-145)
[2020-04-20 06:16] LABS: CALCIUM 8.7 MG/DL (8.5-10.1)
[2020-04-20 06:17] LABS: GLUCOSE 101 MG/DL (70-105)
[2020-04-20 06:18] LABS: TOTAL PROTEIN 6.5 GM/DL (6.4-8.2)
[2020-04-20 06:19] LABS: BILIRUBIN,TOTAL 0.4 MG/DL (0.1-1.0); CARBON DIOXIDE 26 MMOL/L (21-32)
[2020-04-20 06:21] LABS: ALKALINE PHOSPHATASE 70 U/L (40-136); GFR ESTIMATED > 60
[2020-04-20 06:22] LABS: BUN/CREATININE RATIO 21
[2020-04-20 06:24] LABS: ALANINE AMINOTRANSFERASE 12 U/L (0-55)
[2020-04-20 08:00] VITALS: BP 128/67
[2020-04-20] MEDS: ASPIRIN E.C. 81 MG (ECOTRIN) TAB PO SCH (08:39)
[2020-04-20] MEDS: CLOPIDOGREL 75 MG (PLAVIX) TABLET PO SCH (08:39)
[2020-04-20] MEDS: PRIMIDONE 50 MG TAB (MYSOLINE) PO SCH (08:40)
[2020-04-20] MEDS: lisINopril 10 MG (PRINIVIL) TABLET PO SCH (08:41)
[2020-04-20] MEDS: PANTOPRAZOLE 40 MG (PROTONIX) TAB PO SCH (08:41)
--- NOTE | 2020-04-20 09:45 | NUR ---
SPOKE WITH MERARI OSPINA WHO REPORTS SHE WILL BE CARING FOR PATIENT UPON D/C AND PATIENT WILL NOT BE ALONE TO CARE FOR HERSELF. PATIENT HAS MULTIPLE DAUGHTERS WHO ARE ALSO WILLING TO ASSIST AT HOME.
--- NOTE | 2020-04-20 10:00 | NUR ---
PATIENT REFUSES IV PAIN MEDICATION ORDERED ON MAY.
--- NOTE | 2020-04-20 10:48 | D/C HH Face to Face Order ---
D/C Face to Face Orders Reconcile Patient Problems Problems Reviewed?: Yes Instructions for Patient Via [facility], Patient Instructions/FollowUp: PCP 1 week Physician to follow Patient: [facility] Discharge Diet for Home: No Restrictions Patient Problems: Right foot fracture Right arm fracture Patient Data-Allergies,Ht & Wt Patient Allergies: Coded Allergies: Iodinated Contrast Media (Verified Allergy, Intermediate, Nausea, 08/06/19) N/V CONFUSION fluticasone (Verified Allergy, Unknown, RASH, 03/21/18) Height (Feet): 4 Height (Inches): 10.00 Weight (Pounds): 140 Weight (Ounces): 0.0 Home Health Need/Face to Face Date of Face to Face: Apr 20, 2020 Clinical Findings: Generalized weakness and fatigue, Instability, Muscle weakness, Non or partial weight bearing, Pain with ambulation, Unsteady gait I have seen Pt [id number]: Yes Discharged To: Home Diagnosis/Conditions: Right foot fracture Right arm fracture Patient is Homebound due to: Katherine fall risk due to instabilty, Muscle weakness, Non-weight bearing Homebound Status Due to the above stated illness, injury or surgical procedure (medical condition or diagnosis) and associated clinical findings, the patient is homebound because of his/her inability to leave home except with aid of a supportive device and/or person AND leaving the home requires a considerable and taxing effort or is medically contraindicated. Pt req the following assistanc: [facility] Nursing Orders Home Health Services Order: Nursing Services, [employer]or [employer]-Evaluate & Treat, Physical Therapy-Evaluate & Treat Home Health Infusion Therapy Line Start Date: Apr 18, 2020 Certify Stmt I certify that this patient is under my care and that I, a nurse practitioner or a physician; a assistant customer service manager working with me, had a face to face encounter that - meets the physician face to face encounter requirements with this patient as dated. JAMEEL TOMPKINS DO Apr 20, 2020 10:48
--- NOTE | 2020-04-20 10:49 | Discharge Summary ---
Discharge Summary Hospital Course Was the Problem List Reviewed?: Yes Problems/Dx: (1) Atypical chest pain Status: Acute (2) Proximal humerus fracture Status: Acute (3) Metatarsal bone fracture Status: Acute Hospital Course Date of Admission: Apr 18, 2020 at 07:45 Admission Diagnosis : Family Physician/Provider: Rhiannon Ortiz Date of Discharge: 04/20/20 Discharge Diagnosis: atypical chest pain no evidence of ACS, right humerus fracture Hospital Course: Hospital Course: Pt was admitted due to a fall sustained a right humerus fracture and a right foot fracture. She was admitted for chest pain, cardiology evaluated her to have no evidence of acute coronary syndrome. Pain medication was maintained and she was deemed stable for DC and she will go to be with her f amily who will take care of her. Labs and Pending Lab Test: Laboratory Tests 04/20/20 05:45: White Blood Count 8.7, Red Blood Count 4.14, Hemoglobin 12.5, Hematocrit 39, Mean Corpuscular Volume 95, Mean Corpuscular Hemoglobin 30, Mean Corpuscular Hemoglobin Concent 32, Red Cell Distribution Width 16.3H, Platelet Count 211, Mean Platelet Volume 10.3, Immature Granulocyte % (Auto) 1, Neutrophils (%) (Auto) 69, Lymphocytes (%) (Auto) 19, Monocytes (%) (Auto) 9, Eosinophils (%) (Auto) 1, Basophils (%) (Auto) 1, Neutrophils # (Auto) 6.0, Lymphocytes # (Auto) 1.6, Monocytes # (Auto) 0.8, Eosinophils # (Auto) 0.1, Basophils # (Auto) 0.1, Immature Granulocyte # (Auto) 0.1, Sodium Level 137, Potassium Level 4.0, Chloride Level 99, Carbon Dioxide Level 26, Anion Gap 12, Blood Urea Nitrogen 17, Creatinine 0.80, Estimat Glomerular Filtration Rate > 60, BUN/Creatinine Ratio 21, Glucose Level 101, Calcium Level 8.7, Corrected Calcium 8.9, Total Bilirubin 0.4, Aspartate Amino Transf (AST/SGOT) 22, Alanine Aminotransferase (ALT/SGPT) 12, Alkaline Phosphatase 70, Total Protein 6.5, Albumin 3.7 Home Meds Active Acetaminophen-Cod #3 Tablet (Acetaminophen with Codeine) 1 Each Tablet 1 Each PO Q4H PRN 7 Days Levothyroxine Sodium 88 Mcg Tablet 88 Mcg PO DAILY 30 Days Protonix (Pantoprazole Sodium) 40 Mg Tablet.dr 40 Mg PO DAILY 30 Days Reported Dicyclomine HCl 20 Mg Tablet 20 Mg PO TIDAC Clopidogrel (Clopidogrel Bisulfate) 75 Mg Tablet 75 Mg PO DAILY Celebrex (Celecoxib) 100 Mg Capsule 100 Mg PO BID Mysoline (Primidone) 50 Mg Tablet 25 Mg PO BID Propranolol HCl 20 Mg Tablet 20 Mg PO BID Potassium (Potassium Gluconate) 99 Mg Tablet 99 Mg PO DAILY Tylenol with Codeine #3 Tablet (Acetaminophen with Codeine) 1 Each Tablet 1 Each PO Q4H PRN Aspirin 81 Mg Tab.chew 81 Mg PO DAILY Mysoline (Primidone) 250 Mg Tablet 250 Mg PO HS Probiotic (L.acidoph & Paracasei,B.lactis) 1 Each Capsule 1 Each PO HS Lisinopril 10 Mg Tablet 10 Mg PO HS Simvastatin 40 Mg Tablet 40 Mg PO HS Assessment/Pt Instructions PCP 1 week Discharge Planning: <30 minutes discharge planning Discharge Physical Examination Vital Signs Vital Signs Date Time Temp Pulse Resp B/P (MAP) Pulse Ox O2 Delivery O2 Flow Rate FiO2 04/20/20 08:00 35.8 69 22 128/67 (87) 96 Room Air 04/19/20 04:00 3.00 General Appearance: No Apparent Distress, WD/WN, Chronically ill Respiratory: Lungs Clear Cardiovascular: Regular Rate, Rhythm Allergies: Coded Allergies: Iodinated Contrast Media (Verified Allergy, Intermediate, Nausea, 08/06/19) N/V CONFUSION fluticasone (Verified Allergy, Unknown, RASH, 03/21/18) Discharge Summary Date of Admission Apr 18, 2020 at 07:45 Date of Discharge Discharge Date: Apr 20, 2020 Admission Diagnosis A/P 1. Right sided chest wall pain likely referred from humeral head fracture from recent fall on the right. Continue conservative medical management. Patient has ruled out overnight for acute coronary syndrome. 2. History of coronary artery disease clinically appears to be stable Dr. Azevedo's help appreciated. 3. Due to age and underlying frailty with right proximal humeral fracture and right ankle fracture the patient after discussion is leaning toward fpc placement for physical therapy we will consult family welfare social work professor in the morning to discuss further options. Clinical Quality Measures AMI/AHF: ASA po Prior to arrival: JAMEEL De Leon DO Apr 20, 2020 10:49
--- NOTE | 2020-04-20 13:14 | NUR ---
CM/SS visited with the renetta for discharge planning. Plan: The patient will discharge today 04/20 if cleared by cardiology, to home with care from her daughter Debra. Home: The patient is currently living at [place]. Home Health: CM/SS spoke with both the patient and daughter Debra regarding home health. CM/SS provided information on the disciplines offered and their roles through home health. They verbalized understanding; however, it was decided to hold off at this time. The patient will only be staying in town for a couple of days and then staying with her daughter in [place]. CM/SS notified physician. Equipment: The patient has a walker and a quad cane from a garage sale. She states she has commode at home. Supports: The patient is having her youngest daughter Debra stay with her. She has two additional daughters one in [facility] and the other in [place]. She states she is close with all of them. No further needs at this time. Addendum: 04/20/20 at 1348 by BRYAN STRICKLAND Debra (daughter) [phone]
--- NOTE | 2020-04-20 15:48 | NUR ---
DR MORGAN NOTIFIED OF MEDICAL CLEARANCE FOR D/C, AWAITING CARDIOLOGY CLEARANCE APPROVAL.
--- NOTE | 2020-04-20 15:50 | NUR ---
EDDIE WITH NEW ORDERS ; OK TO D/C
[2020-04-20 16:00] VITALS: BP 153/72
[2020-04-20 17:48] VITALS: BP 153/72
--- NOTE | 2020-04-20 17:53 | NUR ---
YAMIL RAJAN demonstrates understanding of discharge instructions and accurately returns instructions upon questioning. Copy of Post-Discharge Instructions and Medication Discharge Instructions given to PATIENT. YAMIL RAJAN is not able to manage continuing needs after discharge; HOME HEALTH CARE IS ORDERED AND PATIENT'S DAUGHTER, MERARI VERBALIZES SHE WILL CARE FOR THE PATIENT MERARI IS UNEMPLOYED. Patients belongings returned to PATIENT. Skin dry and intact; no breakdown noted. Patient discharged from [facility] on 04/20/20 at 1751. YAMIL RAJAN left floor via , accompanied by STAFF.
== END 2020-04-20 10:47 | disposition home health service (06) ==
LOC: EDUNIT# 04:35 → ER 04:39 → UNDOADMOB 07:45 → 4TH 07:45 → UNDODISOB 04-20 17:51
PROVIDERS: ADMIT Internal Medicine; ATTEND Internal Medicine
DX: R07.89 Other chest pain (principal); J44.9 Chronic obstructive pulmonary disease, unspecified; I10 Essential (primary) hypertension; I25.10 Atherosclerotic heart disease of native coronary artery without angina pectoris; E78.00 Pure hypercholesterolemia, unspecified; K21.00 Gastro-esophageal reflux disease with esophagitis, without bleeding; G89.29 Other chronic pain; M54.5 Low back pain; E03.9 Hypothyroidism, unspecified; F17.210 Nicotine dependence, cigarettes, uncomplicated; Z79.82 Long term (current) use of aspirin; Z79.899 Other long term (current) drug therapy; Z88.8 Allergy status to other drugs, medicaments and biological substances; Z91.041 Radiographic dye allergy status; Z86.73 Personal history of transient ischemic attack (TIA), and cerebral infarction without residual deficits; Z90.710 Acquired absence of both cervix and uterus
CPT/HCPCS: 36415; 71045; 71275; 80053; 80061; 82150; 82550; 82553; 83690; 83735; 83874; 83880; 84484; 85025; 85610; 85730; 93005; 93041; G0378

== ENCOUNTER → 2020-07-10 | Outpatient (CLI) | payer MEDICARE ==
[~2020-07-10] MED LIST changes: +CATHETER FLUSH 10 ML SYR IV PRN; +HOLD METFORMIN - RECEIVED CONTRAST 20 ML VIAL IV SCH; +IOHEXOL 350 MG/ML 100 ML (OMNIPAQUE 350) VIAL IV ONE; +LISI10TA25 PO; +NS 100 ML (IVPB) BAG IV ONE
[2020-07-10 07:06] LABS: ALBUMIN 3.8 GM/DL (3.2-4.5)
[2020-07-10 07:07] LABS: CHLORIDE 107 MMOL/L (98-107); POTASSIUM 4.3 MMOL/L (3.6-5.0); SODIUM 142 MMOL/L (135-145)
[2020-07-10 07:08] LABS: CALCIUM 8.7 MG/DL (8.5-10.1)
[2020-07-10 07:09] LABS: GLUCOSE 110 MG/DL (70-105); TOTAL PROTEIN 6.8 GM/DL (6.4-8.2)
[2020-07-10 07:10] LABS: CARBON DIOXIDE 21 MMOL/L (21-32)
[2020-07-10 07:11] LABS: BILIRUBIN,TOTAL 0.2 MG/DL (0.1-1.0)
[2020-07-10 07:12] LABS: ALKALINE PHOSPHATASE 70 U/L (40-136)
[2020-07-10 07:13] LABS: CREATININE SERUM 0.74 MG/DL (0.60-1.30); GFR ESTIMATED > 60
[2020-07-10 07:14] LABS: BUN/CREATININE RATIO 18
[2020-07-10 07:16] LABS: ALANINE AMINOTRANSFERASE 6 U/L (0-55)
--- NOTE | 2020-07-10 08:16 | Diagnostic Imaging Report ---
PROCEDURE: CT abdomen and pelvis with and without contrast. TECHNIQUE: Precontrast acquisitions were acquired through the abdomen and pelvis. Multiple contiguous axial images were obtained through the abdomen and pelvis after the administration of intravenous contrast. Auto Exposure Controls were utilized during the CT exam to meet ALARA standards for radiation dose reduction. INDICATION: Renal mass Lung bases are clear. Liver appears normal. Gallbladder appears normal. Portal vein is patent. Common duct is not dilated. Pancreas is normal. Spleen is not enlarged. There is calcific atherosclerosis of the aorta but no aneurysm. IVC is patent. There are some tiny cortical cysts on both kidneys. There is no solid mass, calculus or hydronephrosis seen. Small bowel is not dilated. Colon is unremarkable. Urinary bladder appears normal. Uterus is surgically absent. There is no intraperitoneal free air or free fluid. IMPRESSION: No acute abnormality seen in the abdomen or pelvis. Several small cortical cysts on the kidneys as well as a 3.5 cm exophytic cyst on the inferior pole of left kidney. No followup indicated. Dictated by: Dictated on workstation # [id number]
== END ==
LOC: RAD 07:45
PROVIDERS: ATTEND Nurse Practitioner Community Health
DX: D41.02 Neoplasm of uncertain behavior of left kidney (principal); N28.1 Cyst of kidney, acquired
CPT/HCPCS: 36415; 74178; 80053

== ENCOUNTER → 2020-08-10 | Outpatient (CLI) | payer MEDICARE ==
[~2020-08-10] MED LIST changes: -CATHETER FLUSH 10 ML SYR IV PRN; -HOLD METFORMIN - RECEIVED CONTRAST 20 ML VIAL IV SCH; -IOHEXOL 350 MG/ML 100 ML (OMNIPAQUE 350) VIAL IV ONE; -NS 100 ML (IVPB) BAG IV ONE
--- NOTE | 2020-08-10 09:49 | Diagnostic Imaging Report ---
PROCEDURE: CT chest without contrast. TECHNIQUE: Multiple contiguous axial images were obtained through the chest without the use of intravenous contrast. Auto Exposure Controls were utilized during the CT exam to meet ALARA standards for radiation dose reduction. INDICATION: Follow-up of pulmonary nodule left lung. The patient is smoker. Comparison with 04/18/[address] scan[address] 08/21/2019 CT scan. FINDINGS: Noncontrasted exam shows a well-circumscribed nodule in the posterior aspect laterally in the left upper lobe. This measures 1.4 cm without significant change in appearance. There is no associated calcification. No new parenchymal nodules have developed. There is a 2 mm nodule anteriorly in the right upper lobe which in retrospect is stable. There is also a 2 mm nodule posteriorly in the superior segment right lower lobe which is stable. No new pulmonary nodules have developed. No pleural effusion or pericardial effusion. No mediastinal or hilar adenopathy of pathologic size. Calcification of the left main coronary artery noted. The aortic root measures approximately 3.4 cm. There has been thyroidectomy. Sagittal reformatted images again show multiple compression fractures without significant overall change in appearance. IMPRESSION: 1. Stable 1.4 cm soft tissue nodule left upper lobe. This has been stable since previous CT scans going back to 08/21/2019 suggesting this is most likely a benign lesion. Dictated by: Dictated on workstation # [id number]
== END ==
LOC: RAD 09:20
PROVIDERS: ATTEND Nurse Practitioner Family
DX: R91.1 Solitary pulmonary nodule (principal); J44.9 Chronic obstructive pulmonary disease, unspecified
CPT/HCPCS: 71250